=== PATIENT | male | born 1960 | race Caucasian/White ===

== ENCOUNTER 2022-08-15 23:05 | Emergency (ER) | payer MEDICAID, SELFPAY ==
[2022-08-15 23:09] VITALS: BP 208/84; PULSE 87; RESP 17; TEMP 36.8; O2SAT 100
--- NOTE | 2022-08-15 23:34 | ED.GENADULT ---
HPI - General Adult General Chief complaint: Urogenital-Male Stated complaint: Blocked catheter? suprapubic pain Time Seen by Provider: 08/15/22 23:15 History of Present Illness HPI narrative: Patient is a 62-year-old gentleman who presents the emergency department with chief complaint of Glasgow catheter not draining. The patient reports that he has had a Glasgow catheter for some time and his last one was changed about 2 weeks ago the patient reports that he has had no output out of his catheter in about 4 hours and reports that he has pressure and a fullness sensation in the suprapubic area. Related Data Allergies Allergy/AdvReac Type Severity Reaction Status Date / Time No Known Allergies Allergy Verified 08/15/22 23:06 Review of Systems Review of Systems: A 10 system review of systems was completed on the patient and is negative except for what is stated in the HPI. Nursing and ancillary documentation was reviewed. Exam Narrative: GENERAL: Well-appearing, well-nourished, and in no acute distress. HEAD: Normocephalic, atraumatic. EYES: PERRLA and EOMI. ENT: Nares clear, no rhinorrhea or epistaxis. Mucous membranes moist. NECK: Supple. CHEST: Clear to auscultation. No respiratory distress. HEART: Regular rate and rhythm. No murmur heard. Normal peripheral pulses. ABDOMEN: Soft, nontender, distention of the bladder on palpation, normal active bowel sounds. : Glasgow catheter in place there is minimal urine in the Glasgow bag EXTREMITIES: Normal range of motion. No edema. SKIN: Warm, dry, no rash. NEURO: No focal deficits. Alert and oriented x3. PSYCH: Normal mood and affect. Course Vital Signs Vital signs: Vital Signs Temperature 36.8 C 08/15/22 23:09 Pulse Rate 87 08/15/22 23:09 Respiratory Rate 17 08/15/22 23:09 Blood Pressure 208/84 H 08/15/22 23:09 Pulse Oximetry 100 08/15/22 23:09 Oxygen Delivery Room Air 08/15/22 23:09 Temperature 36.8 C 08/15/22 23:09 Pulse Rate 87 08/15/22 23:09 Respiratory Rate 17 08/15/22 23:09 Blood Pressure 208/84 H 08/15/22 23:09 Pulse Oximetry 100 07/09/23 23:09 Oxygen Delivery Room Air 08/15/22 23:09 Medical Decision Making MDM Narrative Medical decision making narrative: Differential diagnosis includes Glasgow malfunction, UTI The patient's Glasgow catheter was changed and the patient had greater than 1.5 L of urine in his bladder. Urinalysis showed evidence of UTI the patient was started on Keflex Vital Signs Vital Signs: Vital Signs Temperature 36.8 C 08/15/22 23:09 Pulse Rate 87 08/15/22 23:09 Respiratory Rate 17 08/15/22 23:09 Blood Pressure 208/84 H 08/15/22 23:09 Pulse Oximetry 100 08/15/22 23:09 Oxygen Delivery Room Air 08/15/22 23:09 Temperature 36.8 C 08/15/22 23:09 Pulse Rate 87 08/15/22 23:09 Respiratory Rate 17 08/15/22 23:09 Blood Pressure 208/84 H 08/15/22 23:09 Pulse Oximetry 100 08/15/22 23:09 Oxygen Delivery Room Air 08/15/22 23:09 Lab Data Labs: Lab Results 08/15/22 Range/Units 23:49 Urine Color Yellow (Yellow) Urine Appearance Cloudy H (Clear) Urine pH 7.5 (5.0-9.0) Ur Specific [place] 1.009 (1.001-1.035) Urine Protein Trace (Negative) mg/dL Urine Glucose (UA) Negative (Negative) mg/dL Urine Ketones Negative (Negative) mg/dL Ur Blood (Man) Trace (Negative) Urine Nitrate Positive H (Negative) Urine Bilirubin Negative (Negative) Urine Urobilinogen 2.0 H (<2.0) mg/dL Add Ur Microanalysis Reviewed Leukocyte Esterase Rfl 3+ H (Negative) JUAN/UL Urine RBC 0-2 (0-2) /hpf Urine WBC >100 H /hpf Ur Squamous Epith Cells None seen (Few) /hpf Urine Bacteria 4+ H /hpf Urine Casts 3-5 Urine Characteristics Cloudy,Sediment Discharge Plan Discharge Clinical Impression: Malfunction of Glasgow catheter, Acute urinary retention, Acute UTI
[2022-08-16 00:17] LABS: Appearance Urine Cloudy (Clear); Bacteria Urine 4+ /hpf; Bilirubin Urine Negative (Negative); Blood Urine Trace (Negative); Color Urine Yellow (Yellow); Glucose Urine UA Negative (Negative); Ketones Urine Negative (Negative); Leukocyte Esterase Ur 3+ LEU/UL (Negative); Need Manual Microscopic Reviewed; Nitrate Urine Positive (Negative); Protein Urine Trace mg/dL (Negative); RBC Urine 0-2 /hpf (0-2); Specific Grav Ur 1.009 (1.001-1.035); Squamous Epithelial Cell Urine None seen /hpf (Few); WBC Urine >100 /hpf; pH Urine 7.5 (5.0-9.0)
[2022-08-16 00:19] LABS: Add Urine Microscopic? YES
== END 2022-08-16 00:30 | disposition home or self-care (01) ==
PROVIDERS: Emergency Provider Emergency Medicine
DX: T83.098A Other mechanical complication of other urinary catheter, initial encounter (principal); N39.0 Urinary tract infection, site not specified; R33.9 Retention of urine, unspecified; Y84.6 Urinary catheterization as the cause of abnormal reaction of the patient, or of later complication, without mention of misadventure at the time of the procedure
CPT/HCPCS: 51702; 81001; 87077; 87086; 87088; 87186; 99283

== ENCOUNTER 2022-09-07 15:22 | Emergency (ER) | payer MEDICAID, SELFPAY ==
[2022-09-07 15:24] VITALS: BP 165/88; PULSE 108; RESP 20; TEMP 36.4; O2SAT 98
--- NOTE | 2022-09-07 16:58 | ED.MALEGU ---
HPI - Male Genitourinary General Chief complaint: Urogenital-Male Stated complaint: rodney blockage Time Seen by Provider: 09/07/22 15:34 History of Present Illness HPI Narrative: Patient is a 62-year-old male who presents ER with Rodney obstruction. Has lower abdominal pain. Reports he has been having a chronic indwelling Rodney for couple months. Recently diagnosed with infection started on cefdinir and then Augmentin. At the beginning the month he had been on cephalexin. No fevers or chills or sweats. He follows with urology of [place]. No additional concerns. Related Data Allergies Allergy/AdvReac Type Severity Reaction Status Date / Time No Known Allergies Allergy Verified 09/07/22 15:23 Review of Systems Review of Systems: All systems reviewed & are unremarkable except as noted in HPI and below Constitutional: Constitutional: Denies chills and Denies fever(s) Gastrointestinal: Gastrointestinal: Reports abdominal pain, Denies diarrhea, Denies nausea and Denies vomiting Genitourinary: Genitourinary: Reports oliguria, Denies dysuria and Denies testicular pain Exam Narrative: GENERAL: Well-appearing, well-nourished, and in no acute distress. HEAD: Normocephalic, atraumatic. ENT: Mucous membranes moist. CHEST: Clear to auscultation. No respiratory distress. HEART: Regular rate and rhythm. Normal peripheral pulses. ABDOMEN: Soft, suprapubic tenderness with bladder distention.. EXTREMITIES: Normal range of motion. No edema. NEURO: Alert and oriented x3. PSYCH: Normal mood and affect. Course Course Emergency Course: Rodney exchange and patient feels improved. I have shown him his urine culture from early last month. Patient has been on no antibiotics to properly treat the infection so he will be switched to Bactrim. Educated he needs to discontinue his current antibiotic therapy and follow-up with urology. He is verbalized understanding. Vital Signs Vital signs: Vital Signs Temperature 97.5 F L 09/07/22 15:24 Pulse Rate 108 H 09/07/22 15:24 Respiratory Rate 20 09/07/22 15:24 Blood Pressure 165/88 H 09/07/22 15:24 Pulse Oximetry 98 09/07/22 15:24 Oxygen Delivery Room Air 09/07/22 15:24 Temperature 97.5 F L 09/07/22 15:24 Pulse Rate 75 09/07/22 17:07 Respiratory Rate 20 09/07/22 15:24 Blood Pressure 160/91 H 09/07/22 17:07 Pulse Oximetry 95 09/07/22 17:07 Oxygen Delivery Room Air 09/07/22 15:24 Discharge Plan Discharge Clinical Impression: Acute urinary retention Patient Disposition: Home, Self-Care Condition: Stable Instructions: Antibiotic Form, Rodney Catheter Placement and Care (ED) Additional Instructions: You have an atypical urine infection that was resistant to both cephalosporins and Augmentin. You have been on the wrong antibiotic for the last month. You are being switched to Bactrim. Follow-up with your urologist. Return the ER if your Rodney is not draining. Prescriptions: New sulfamethoxazole-trimethoprim [Bactrim DS] 800-160 mg tablet 1 tablet PO Q12H Qty: 20 0RF No Action cephalexin 500 mg capsule 500 mg PO Q8H 7 Days Qty: 21 0RF Follow-up/Referrals: Harsh Maria MD [Physician] - 1 Week UNKNOWN,DOCTOR [Primary Care Provider] -
[2022-09-07 17:07] VITALS: BP 160/91; PULSE 75; O2SAT 95
== END 2022-09-07 17:08 | disposition home or self-care (01) ==
PROVIDERS: Emergency Provider Emergency Medicine
DX: R33.9 Retention of urine, unspecified (principal)
CPT/HCPCS: 51702; 99283

== ENCOUNTER 2022-09-14 16:29 | Emergency (ER) | payer MEDICAID, SELFPAY ==
[2022-09-14 16:42] VITALS: BP 180/98; PULSE 92; RESP 16; TEMP 36.8; O2SAT 100
--- NOTE | 2022-09-14 16:58 | ED.MALEGU ---
HPI - Male Genitourinary General Chief complaint: Urogenital-Male Stated complaint: catheter change Time Seen by Provider: 09/14/22 16:58 Source: patient Mode of arrival: ambulatory Limitations: no limitations History of Present Illness HPI Narrative: 62 years old white male, had Glasgow catheter over the last 2 months for possible prostatic enlargement, scheduled to see his urologist next week. Patient currently on Cipro. 4 hours prior to arrival to the emergency room patient noticed that the Glasgow catheter is not draining urine. With lower abdominal pain. Glasgow catheter changed, yielding 1200 cc urine with unremarkable relieve Related Data Allergies Allergy/AdvReac Type Severity Reaction Status Date / Time No Known Allergies Allergy Verified 09/07/22 15:23 Review of Systems Review of Systems: All systems reviewed & are unremarkable except as noted in HPI and below Exam Narrative: General appearance: Well-developed, uncomfortable Skin: Normal color Head: Normocephalic, nontraumatic Eyes: Clear conjunctiva ENT: Oropharynx normal, ears normal, nose normal Neck: Supple, nontender Chest and respiratory: Airway patent, no respiratory distress, no accessory muscle use Heart: Regular rate/rhythm Abdomen: Diffuse lower abdominal tenderness with distention Vascular: Normal peripheral pulses, normal capillary refill. 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 tested, no gross motor deficit Course Reevaluation(s) Reevaluation #1: Remarkable improvement after 1200 cc of urine output Date: 09/14/22 Time: 17:06 Vital Signs Vital signs: Vital Signs Temperature 36.8 C 09/14/22 16:42 Pulse Rate 92 09/14/22 16:42 Respiratory Rate 16 09/14/22 16:42 Blood Pressure 180/98 H 09/14/22 16:42 Pulse Oximetry 100 09/14/22 16:42 Oxygen Delivery Room Air 09/14/22 16:42 Temperature 36.8 C 09/14/22 16:42 Pulse Rate 92 09/14/22 16:42 Respiratory Rate 16 09/14/22 16:42 Blood Pressure 180/98 H 09/14/22 16:42 Pulse Oximetry 100 09/14/22 16:42 Oxygen Delivery Room Air 09/14/22 16:42 MDM - Male Genitourinary MDM Narrative Medical decision making narrative: Patient presents with Glasgow catheter malfunction, 4 hours prior to arrival not draining urine. Patient scheduled to see his urologist next week, currently on Cipro for similar event last week. Glasgow catheter changed, 1200 cc of urine output, remarkable improvement. Patient will be discharged to follow-up with his urologist next week. Differential Diagnosis Differential diagnosis: Likely acute retention of urine and other (Glasgow catheter malfunction) Lab Data Labs: Urine Characteristics Clear Critical Care Time Critical Care Time Total Critical Care Time: 10 Discharge Plan Discharge Clinical Impression: Acute retention of urine Patient Disposition: Home, Self-Care Condition: Improved Instructions: Urinary Retention in Men (ED), Glasgow Catheter Placement and Care (ED) Additional Instructions: Return if symptoms are worsening , call your urologist for appointment, take Tylenol as as needed for aches and pain, continue home medications. Prescriptions: No Action cephalexin 500 mg capsule 500 mg PO Q8H 7 Days Qty: 21 0RF ciprofloxacin HCl 250 mg tablet 250 mg PO Q12H 5 Days Qty: 10 0RF Follow-up/Referrals: UNKNOWN,DOCTOR [Primary Care Provider] -
[2022-09-14 17:33] LABS: Appearance Urine Clear (Clear); Bacteria Urine None Seen /hpf; Bilirubin Urine Negative (Negative); Blood Urine Negative (Negative); Color Urine Yellow (Yellow); Glucose Urine UA Negative (Negative); Ketones Urine Negative (Negative); Leukocyte Esterase Ur 1+ LEU/UL (Negative); Nitrate Urine Negative (Negative); Non Pathogenic Casts 0-2; Protein Urine Negative (Negative); RBC Urine 0-2 /hpf (0-2); Specific Grav Ur 1.007 (1.001-1.035); Squamous Epithelial Cell Urine None seen /hpf (Few); Urobilinogen Urine 0.2 mg/dL (<2.0)
[2022-09-14 17:46] LABS: Add Urine Microscopic? YES
== END 2022-09-14 17:40 | disposition home or self-care (01) ==
LOC: ANHED 17:13
PROVIDERS: Emergency Provider Emergency Medicine; PCP Nurse Practitioner Family
DX: R33.9 Retention of urine, unspecified (principal)
CPT/HCPCS: 51702; 81001; 87086; 99283

== ENCOUNTER 2022-09-20 16:28 | Emergency (ER) | payer MEDICAID, SELFPAY ==
[2022-09-20 16:30] VITALS: BP 191/103; PULSE 107; RESP 18; TEMP 36.4; O2SAT 99
--- NOTE | 2022-09-20 19:12 | PC.NURSE ---
Patient report given to ANGELITA Sharp. All questions answered and care of patient transferred.
[2022-09-20 19:24] LABS: Glucose Point of Care 133 mg/dl (65-105)
[2022-09-20 19:27] LABS: Basophils Absolute Auto 0.1 K/mm3 (0.0-0.1); Basophils Percent Auto 0.6 % (0.2-1.2); Eosinophils Absolute Auto 0.1 K/mm3 (0-0.3); Eosinophils Percent Auto 0.9 % (0-4.4); Hematocrit 47.1 % (42.0-52.0); Hemoglobin 16.1 g/dL (14.0-18.0); Immature Granulocyte Absolute 0.03 K/mm3 (0.00-0.031); Immature Granulocyte Percent A 0.3 % (0-0.5); Lymphocytes Absolute Auto 1.81 K/mm3 (0.9-3.2); Lymphocytes Percent Auto 16.7 % (18.3-44.2); Mean Corpuscular HGB Conc 34.2 g/dl (32-36); Mean Corpuscular Hemoglobin 33.7 pg (26-34); Mean Corpuscular Volume 98.5 fl (80-100); Mean Platelet Volume 8.3 fl (7.4-10.4); Monocytes Absolute Auto 0.9 K/mm3 (0.1-0.6); Monocytes Percent Auto 8.3 % (2.6-8.5); Neutrophils Absolute Auto 7.9 K/mm3 (1.3-6.7); Neutrophils Percent Auto 73.2 % (45.5-73.1); Platelet Count Result 333 k/mm3 (150-375); Red Blood Count 4.78 M/mm3 (4.6-6.20); Red Cell Distribution Width 12.3 % (11.5-14.5); White Blood Count 10.8 K/mm3 (4.5-10.0)
[2022-09-20 19:39] LABS: Alanine Aminotransferase 28 U/L (6-50); Albumin Level 4.4 g/dL (3.5-5.1); Alkaline Phosphatase 104 U/L (38-126); Anion Gap 4 mmol/L (8-16); Aspartate Amino Transferase 43 U/L (17-59); Bilirubin,Total 0.6 mg/dL (0.2-1.3); Blood Urea Nitrogen 6 mg/dL (9-20); Calcium 9.4 mg/dL (8.4-10.2); Carbon Dioxide 31 mmol/L (22-30); Chloride 96 mmol/L (98-107); Estimated CRCL calculation 76 ml/min; Estimated Glomerular Filt Rate > 60; Glucose 134 mg/dL (65-110); Potassium 4.9 mmol/L (3.4-5.0); Sodium 131 mmol/L (137-145)
[2022-09-20 20:24] LABS: Appearance Urine Clear (Clear); Bacteria Urine None Seen /hpf; Bilirubin Urine Negative (Negative); Blood Urine 1+ (Negative); Color Urine Yellow (Yellow); Glucose Urine UA Negative (Negative); Ketones Urine Negative (Negative); Leukocyte Esterase Ur 1+ LEU/UL (Negative); Nitrate Urine Negative (Negative); Non Pathogenic Casts 0-2; Protein Urine Negative (Negative); Specific Grav Ur 1.007 (1.001-1.035); Squamous Epithelial Cell Urine None seen /hpf (Few); pH Urine 7.5 (5.0-9.0)
--- NOTE | 2022-09-20 20:27 | PC.NURSE ---
Patient education given on how to irrigate his rodney. Return demonstration provided.
[2022-09-20 20:29] LABS: Add Urine Microscopic? YES
--- NOTE | 2022-09-20 21:15 | ED.GENADULT ---
HPI - General Adult General Chief complaint: Urogenital-Male Stated complaint: catheter change Time Seen by Provider: 09/20/22 18:59 History of Present Illness HPI narrative: this is a 62-year-old male presenting ED with chief complaint of Glasgow malfunction. Patient has indwelling Glasgow for BPH. He has had to have it replaced multiple times were last 10 days has acute getting clogged. Patient has had some lower abdominal fullness. patient has appointment on Tuesday with urology. He denies fever chills nausea vomiting or diarrhea or flank pain. Related Data Allergies Allergy/AdvReac Type Severity Reaction Status Date / Time No Known Allergies Allergy Verified 09/20/22 18:25 Exam Narrative: APPEARANCE: No apparent distress. Head: atraumatic. EYES: EOMI, NOSE: Atraumatic NECK: Trachea midline RESPIRATORY: No increased rate of breathing, clear to auscultation CARDIOVASCULAR: RRR, ABDOMINAL: suprapubic mass that is tender, rest the abdomen is soft nontender MUSCULOSKELETAl: No obvious deformities NEURO: Alert. Moving 4/4 extremities SKIN:: Warm, dry. Normal color PSYCHIATRIC: Normal affect Course Vital Signs Vital signs: Vital Signs Temperature 97.5 F L 09/20/22 16:30 Pulse Rate 107 H 09/20/22 16:30 Respiratory Rate 18 09/20/22 16:30 Blood Pressure 191/103 H 09/20/22 16:30 Pulse Oximetry 99 09/20/22 16:30 Oxygen Delivery Room Air 09/20/22 16:30 Temperature 97.5 F L 09/20/22 16:30 Pulse Rate 107 H 09/20/22 16:30 Respiratory Rate 18 09/20/22 16:30 Blood Pressure 191/103 H 09/20/22 16:30 Pulse Oximetry 99 09/20/22 16:30 Oxygen Delivery Room Air 09/20/22 16:30 Medical Decision Making [facility] Narrative Medical decision making narrative: -Presentation: 62-year-old male presenting with chronic indwelling Glasgow the cues clogging. The Glasgow will be replaced here in the emergency department. The patient has been instructed on how to flush his catheter. Patient can follow-up with his urologist on Tuesday and return if he develops urinary retention. 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 Patient does not have white count or fever. We will await culture results. -Shared decision making / Disposition: Discharged with urology follow-up Vital Signs Vital Signs: Vital Signs Temperature 97.5 F L 09/20/22 16:30 Pulse Rate 107 H 09/20/22 16:30 Respiratory Rate 18 09/20/22 16:30 Blood Pressure 191/103 H 09/20/22 16:30 Pulse Oximetry 99 09/20/22 16:30 Oxygen Delivery Room Air 09/20/22 16:30 Temperature 97.5 F L 09/20/22 16:30 Pulse Rate 107 H 09/20/22 16:30 Respiratory Rate 18 09/20/22 16:30 Blood Pressure 191/103 H 09/20/22 16:30 Pulse Oximetry 99 09/20/22 16:30 Oxygen Delivery Room Air 09/20/22 16:30 Lab Data 09/20/22 19:20 09/20/22 19:20 Labs: Lab Results 09/20/22 09/20/22 09/20/22 Range/Units 19:20 19:22 19:50 WBC 10.8 H (4.5-10.0) K/mm3 RBC 4.78 (4.6-6.20) M/mm3 Hgb 16.1 (14.0-18.0) g/dL Hct 47.1 (42.0-52.0) % MCV 98.5 (80-100) fl MCH 33.7 (26-34) pg MCHC 34.2 (32-36) g/dl RDW 12.3 (11.5-14.5) % Plt Count 333 (150-375) k/mm3 MPV 8.3 (7.4-10.4) fl Immature Gran % (Auto) 0.3 (0-0.5) % Neut % (Auto) 73.2 H (45.5-73.1) % Lymph % (Auto) 16.7 L (18.3-44.2) % [place] % (Auto) 8.3 (2.6-8.5) % Eos % (Auto) 0.9 (0-4.4) % Baso % (Auto) 0.6 (0.2-1.2) % Lymph # (Auto) 1.81 (0.9-3.2) K/mm3 [place] # (Auto) 0.9 H (0.1-0.6) K/mm3
[2022-09-20 21:23] VITALS: BP 119/81; PULSE 98; RESP 16; O2SAT 100
== END 2022-09-20 21:25 | disposition home or self-care (01) ==
PROVIDERS: Emergency Provider Emergency Medicine; PCP Nurse Practitioner Family
DX: T83.091A Other mechanical complication of indwelling urethral catheter, initial encounter (principal); N40.0 Benign prostatic hyperplasia without lower urinary tract symptoms; Y84.6 Urinary catheterization as the cause of abnormal reaction of the patient, or of later complication, without mention of misadventure at the time of the procedure
CPT/HCPCS: 36415; 51702; 80053; 81001; 82948; 85025; 87086; 99283

== ENCOUNTER 2023-03-21 06:16 | Emergency (ER) | payer BC, SELFPAY ==
--- NOTE | ~2023-03-21 | XR_ITS ---
Clinical Indication: Shortness of breath PA and lateral views of the chest: Comparison: None Findings: There is focal haziness left lung base. Right lung clear. Cardiomediastinal silhouette is within normal limits. Bones and soft tissues are unremarkable. Impression: Focal haziness left lung base. Correlate for atelectasis versus pneumonia. Possible COPD. Reviewed, dictated and finalized at location . [facility]ER Impression: Focal haziness left lung base. Correlate for atelectasis versus pneumonia. Possible COPD.
--- NOTE | ~2023-03-21 | CT_ITS ---
EXAMINATION: CT soft tissue neck w con DATE: 03/21/2023 07:54 INDICATION: Left-sided oropharyngeal mass. TECHNIQUE: Computed tomography (CT) of the neck was performed with 75 mL Omnipaque-350 intravenous co ntrast. Automated exposure control and iterative reconstruction technique were employed. The dose-tereza gth product was 267.24 mGy-cm. COMPARISON: None FINDINGS: There is moderate emphysema. There is mild scarring at the lung apices. There is a 7.2 x 4. 2 cm mass involving the floor of mouth, base of tongue, and left pharyngeal wall. There is invasion o f left body of the mandible, which demonstrates erosions. The mass abuts or invades the left submandi bular gland and left parotid gland. There are no pathologically enlarged lymph nodes. There is plaque in the proximal internal carotid arteries with less than 50% stenosis relative to normal distal nile ry lumen diameters. There is severe cervical spondylosis. There is mucosal thickening in the paranasa l sinuses. There is thickening sclerosis of the downs of left maxillary sinus, consistent with chroni c sinusitis. IMPRESSION: 1. Large mass involving the left pharynx and floor of mouth, consistent with squamous cell carcinoma. Reviewed, dictated and finalized at location A. A DRIVER IMPRESSION: 1. Large mass involving the left pharynx and floor of mouth, consistent with sq uamous cell carcinoma.
[2023-03-21 06:17] VITALS: BP 106/50; PULSE 62; RESP 18; TEMP 36.4; O2SAT 97
--- NOTE | 2023-03-21 06:50 | ECG_ITS ---
Measurements Intervals [place] Rate: 61 P: 82 RI: 181 QRS: -25 QRSD: 133 T: 129 QT: 438 QTc: 442 Interpretive Statements SINUS RHYTHM ANTEROSEPTAL ST-ELEVATION, CONSIDER INJURY PATTERN INTRAVENTRICULAR CONDUCTION DELAY LEFT ANTERIOR FASCICULAR BLOCK ABNORMAL ECG NO PREVIOUS ECG AVAILABLE FOR COMPARISON Electronically Signed On 03-21-2023 8:44:35 [employer] P[employer] WORK[employer] by Dilshad Sher M.D.
[2023-03-21 06:57] VITALS: BP 174/73; PULSE 64; RESP 14; O2SAT 100
[2023-03-21 07:12] LABS: Basophils Percent Auto 0.7 % (0.2-1.2); Eosinophils Absolute Auto 0.4 K/mm3 (0-0.3); Eosinophils Percent Auto 7.3 % (0-4.4); Hematocrit 30.5 % (42.0-52.0); Hemoglobin 9.7 g/dL (14.0-18.0); Immature Granulocyte Absolute 0.02 K/mm3 (0.00-0.031); Immature Granulocyte Percent A 0.4 % (0-0.5); Lymphocytes Absolute Auto 1.42 K/mm3 (0.9-3.2); Lymphocytes Percent Auto 25.2 % (18.3-44.2); Mean Corpuscular HGB Conc 31.8 g/dl (32-36); Mean Corpuscular Hemoglobin 31.5 pg (26-34); Mean Platelet Volume 8.4 fl (7.4-10.4); Monocytes Absolute Auto 0.7 K/mm3 (0.1-0.6); Monocytes Percent Auto 11.9 % (2.6-8.5); Neutrophils Absolute Auto 3.1 K/mm3 (1.3-6.7); Neutrophils Percent Auto 54.5 % (45.5-73.1); Platelet Count Result 379 k/mm3 (150-375); Red Blood Count 3.08 M/mm3 (4.6-6.20); Red Cell Distribution Width 12.7 % (11.5-14.5); White Blood Count 5.6 K/mm3 (4.5-10.0)
[2023-03-21 07:21] VITALS: BP 141/71; PULSE 64; RESP 16; O2SAT 100
[2023-03-21 07:24] LABS: Alanine Aminotransferase 21 U/L (6-50); Albumin Level 3.5 g/dL (3.5-5.1); Alkaline Phosphatase 74 U/L (38-126); Anion Gap 5 mmol/L (8-16); Aspartate Amino Transferase 41 U/L (17-59); Bilirubin,Total 0.4 mg/dL (0.2-1.3); Blood Urea Nitrogen 25 mg/dL (9-20); Calcium 8.7 mg/dL (8.4-10.2); Carbon Dioxide 29 mmol/L (22-30); Chloride 93 mmol/L (98-107); Estimated CRCL calculation 84 ml/min; Estimated Glomerular Filt Rate > 60; Glucose 107 mg/dL (65-110); Potassium 4.4 mmol/L (3.4-5.0); Sodium 127 mmol/L (137-145)
[2023-03-21 08:14] VITALS: O2SAT 100
[2023-03-21 08:17] VITALS: BP 165/76; PULSE 67; RESP 16; O2SAT 100
--- NOTE | 2023-03-21 09:09 | ED.GENADULT ---
HPI - General Adult General Chief complaint: Shortness of Breath/Dyspnea Stated complaint: coughing up blood Time Seen by Provider: 03/21/23 07:00 History of Present Illness HPI narrative: Patient is a 62-year-old male who presents ER with bloody spit/ sputum as well as difficulty swelling. Ongoing over last couple of months. He has had to start puree in his food so he can swallow. He reports a 20 lb weight loss. He was seen by his PCP who referred him to an ENT. When he called the ENT office he told them that he thought he had issues with the esophagus knee told him that he should call a GI doctor as they do not go down and scope the esophagus. The bleeding waxes and wanes in intensity. He cannot describe what causes it to be worse. He is not having any shortness of breath or productive cough this time. No chest pain or chest pressure. Patient does have history of tobacco use. Related Data Allergies Allergy/AdvReac Type Severity Reaction Status Date / Time No Known Allergies Allergy Verified 09/20/22 18:25 Review of Systems Review of Systems: All systems reviewed & are unremarkable except as noted in HPI and below Constitutional: Constitutional: Reports no additional constitutional complaints ENT: Reports dysphagia and Denies sore throat Comments: Left facial swelling Cardiovascular: Cardiovascular: Reports no additional cardiovascular complaints Respiratory: Respiratory: Reports no additional respiratory complaints Gastrointestinal: Gastrointestinal: Reports no additional gastrointestinal complaints [facility] Past Medical History Medical History (Updated 03/21/23 @ 10:39 by Avery Quezada MD) Hypertension Surgical History Surgical History (Updated 03/21/23 @ 09:21 by Avery Quezada MD) H/O knee surgery History of appendectomy Social History Social History (Updated 03/21/23 @ 09:21 by Avery Quezada MD) Smoking status: Current every day smoker Exam Narrative: GENERAL: Chronically ill-appearing, frail, and in no acute distress. HEAD: Normocephalic, atraumatic. ENT: Mucous membranes moist. unable to stick the tongue out straight and it appears off to left side. Left posterior tongue and pharyngeal wall with erosive mass present. Mild swelling of the parotid and submandibular glands on left. NECK: Supple. CHEST: Clear to auscultation. No respiratory distress. HEART: Regular rate and rhythm. Normal peripheral pulses. ABDOMEN: Soft, nontender, nondistended. EXTREMITIES: Normal range of motion. No edema. SKIN: Warm, dry, no rash. NEURO: Alert and oriented x3. PSYCH: Normal mood and affect. Course Course Emergency Course: discussed case with ENT on-call. [facility] and insure that patient has not lost to follow-up. Patient is not in extremis and feels comfortable with this plan. Vital Signs Vital signs: Vital Signs Temperature 97.6 F 03/21/23 06:17 Pulse Rate 62 03/21/23 06:17 Respiratory Rate 18 03/21/23 06:17 Blood Pressure 106/50 L 03/21/23 06:17 Pulse Oximetry 97 03/21/23 06:17 Oxygen Delivery Room Air 03/21/23 06:17 Temperature 98.1 F 03/21/23 10:48 Pulse Rate 68 03/21/23 10:48 Respiratory Rate 18 03/21/23 10:48 Blood Pressure 152/68 H 03/21/23 10:48 Pulse Oximetry 100 03/21/23 10:48 Oxygen Delivery Room Air 03/21/23 08:14 Medical Decision Making Vital Signs Vital Signs: Vital Signs Temperature 97.6 F 03/21/23 06:17 Pulse Rate 62 03/21/23 06:17 Respiratory Rate 18 03/21/23 06:17 Blood Pressure 106/50 L 03/21/23 06:17 Pulse Oximetry 97 03/21/23 06:17 Oxygen Delivery Room Air 03/21/23 06:17 Temperature 98.1 F 03/21/23 10:48 Pulse Rate 68 03/21/23 10:48 Respiratory Rate 18 03/21/23 10:48 Blood Pressure 152/68 H 03/21/23 10:48 Pulse Oximetry 100 03/21/23 10:48 Oxygen Delivery Room Air 03/21/23 08:14 Lab Data 03/21/23
[2023-03-21 10:48] VITALS: BP 152/68; PULSE 68; RESP 18; TEMP 36.7; O2SAT 100
== END 2023-03-21 10:49 | disposition home or self-care (01) ==
PROVIDERS: Emergency Medicine; Emergency Provider Emergency Medicine; PCP Family Medicine
DX: C10.9 Malignant neoplasm of oropharynx, unspecified (principal); I10 Essential (primary) hypertension; F17.210 Nicotine dependence, cigarettes, uncomplicated; I45.9 Conduction disorder, unspecified; I44.4 Left anterior fascicular block; R94.31 Abnormal electrocardiogram [ECG] [EKG]; R91.8 Other nonspecific abnormal finding of lung field
CPT/HCPCS: 36415; 70491; 71046; 80053; 85025; 93005; 99284; Q9967

== ENCOUNTER 2023-03-23 09:57 | Emergency (ER) | payer BC, SELFPAY ==
[2023-03-23] VITALS (11 sets, daily range): BP systolic 89–134; BP diastolic 45–70; PULSE 56–85; RESP 14–18; TEMP 36.4–36.8; O2SAT 96–100
--- NOTE | ~2023-03-23 | XR_ITS ---
XR chest 2V DATE: 03/23/2023 10:41 INDICATION: Syncopal episode. Hemoptysis. TECHNIQUE: AP and lateral views COMPARISON: March 21, 2013 AP and lateral chest FINDINGS: Minimal infiltrate or atelectasis at the left lung base appears stable or mildly improved s amaury March 21, 2013. The lungs otherwise appear clear of infiltrate or consolidation. Bilateral hyperinflation, suggesting chronic obstructive pulmonary disease Minimal blunting of the left costophrenic angle may indicate slight left pleural effusion. No right p leural effusion is evident. No pulmonary vascular congestion. No hilar or mediastinal enlargement. No pneumothorax. IMPRESSION: Minimal infiltrate or atelectasis at the left lung base, stable or mildly improved since March 21, 2013 Possible minimal left pleural effusion Bilateral hyperinflation, suggesting obstructive airways disease Reviewed, dictated and finalized at location B. SPLANT NURSE PRACTITIONER
--- NOTE | ~2023-03-23 | CT_ITS ---
EXAMINATION: CT soft tissue neck w con DATE: 03/23/2023 10:58 INDICATION: Headache. Oral mass. Hemoptysis. TECHNIQUE: Computed tomography (CT) of the neck was performed with 75 mL Omnipaque-350 intravenous co ntrast. Automated exposure control and iterative reconstruction technique were employed. The dose-tereza gth product was 269.14 mGy-cm. COMPARISON: CT neck 03/21/2023 FINDINGS: There is moderate emphysema. There is mild scarring at the lung apices. There is a 7.2 x 4. 2 cm mass involving the floor of mouth, base of tongue, and left pharyngeal wall. There is invasion o f left body of the mandible, which demonstrates erosions. The mass abuts or invades the left submandi bular gland and left parotid gland. There are no pathologically enlarged lymph nodes. There is plaque in the proximal internal carotid arteries with less than 50% stenosis relative to normal distal nile ry lumen diameters. There is severe cervical spondylosis. There is mucosal thickening in the paranasa l sinuses. There is thickening sclerosis of the downs of left maxillary sinus, consistent with chroni c sinusitis. IMPRESSION: 1. Stable large mass involving the left pharynx, floor of mouth, and mandible, consistent with squamo us cell carcinoma. Reviewed, dictated and finalized at location A. ANICAL TECHNICAL SERVICE SPECIALIST IMPRESSION: 1. Stable large mass involving the left pharynx, floor of mouth, and mandible, consistent with squamous cell carcinoma.
--- NOTE | 2023-03-23 10:09 | ECG_ITS ---
Measurements Intervals [place] Rate: 78 P: 81 HI: 150 QRS: 24 QRSD: 127 T: 130 QT: 385 QTc: 441 Interpretive Statements SINUS RHYTHM LATERAL MYOCARDIAL INFARCTION , OF INDETERMINATE AGE [40+ ms Q WAVE AND/OR ST/T ABNORMALITY IN I/aVL/V5/V6] ABNORMAL ECG COMPARED TO ECG 03/21/2023 06:53:46 MYOCARDIAL INFARCT FINDING NOW PRESENT Electronically Signed On 03-23-2023 11:54:19 [employer]AD SALES CONSULTANT by Dilshad Sher M.D.
[2023-03-23] MEDS: SODIUM CHLORIDE 0.9% IV 1,000 ML 999 ML IV CONT (10:18)
[2023-03-23 10:28] LABS: Basophils Percent Auto 0.4 % (0.2-1.2); Eosinophils Absolute Auto 0.2 K/mm3 (0-0.3); Eosinophils Percent Auto 2.1 % (0-4.4); Hematocrit 21.9 % (42.0-52.0); Immature Granulocyte Absolute 0.05 K/mm3 (0.00-0.031); Immature Granulocyte Percent A 0.6 % (0-0.5); Lymphocytes Absolute Auto 1.45 K/mm3 (0.9-3.2); Lymphocytes Percent Auto 18.8 % (18.3-44.2); Mean Corpuscular Hemoglobin 31.8 pg (26-34); Mean Corpuscular Volume 99.5 fl (80-100); Mean Platelet Volume 8.7 fl (7.4-10.4); Monocytes Absolute Auto 0.9 K/mm3 (0.1-0.6); Monocytes Percent Auto 11.4 % (2.6-8.5); Neutrophils Absolute Auto 5.2 K/mm3 (1.3-6.7); Neutrophils Percent Auto 66.7 % (45.5-73.1); Platelet Count Result 320 k/mm3 (150-375); Red Cell Distribution Width 12.7 % (11.5-14.5); White Blood Count 7.7 K/mm3 (4.5-10.0)
--- NOTE | 2023-03-23 10:35 | PC.NURSE ---
Pt unable to provide urine sample this time, requesting more time to attempt clean catch ua. Fluids infusing, given urinal, given call light.
[2023-03-23 10:40] LABS: Alanine Aminotransferase 20 U/L (6-50); Albumin Level 3.4 g/dL (3.5-5.1); Alkaline Phosphatase 72 U/L (38-126); Anion Gap 7 mmol/L (8-16); Aspartate Amino Transferase 41 U/L (17-59); Bilirubin,Total 0.4 mg/dL (0.2-1.3); Blood Urea Nitrogen 30 mg/dL (9-20); Calcium 8.4 mg/dL (8.4-10.2); Carbon Dioxide 26 mmol/L (22-30); Chloride 92 mmol/L (98-107); Estimated CRCL calculation 76 ml/min; Estimated Glomerular Filt Rate > 60; Glucose 143 mg/dL (65-110); Potassium 4.7 mmol/L (3.4-5.0); Sodium 125 mmol/L (137-145)
--- NOTE | 2023-03-23 11:06 | PC.NURSE ---
assumed care of pt. pt resting on stretcher, at bedside. pt in no visible distress. pt informed we are waiting on urine sample, has urinal at bedside. no concerns at this time.
--- NOTE | 2023-03-23 11:16 | ED.GENADULT ---
HPI - General Adult General Chief complaint: Syncope Stated complaint: hemoptysis Time Seen by Provider: 03/23/23 10:09 History of Present Illness HPI narrative: Patient is a 63-year-old male who presents ER with potential oral hemorrhage and syncope. Patient was diagnosed with a new or pharyngeal cancer 2 days ago. He has been working on getting follow-up at [facility]. Today he suddenly had acute bright red blood in large quantity, and his mouth. He cannot tell me how much came out. He then got lightheaded and lost consciousness and collapsed to the ground. He was unconscious for 30 seconds before waking back up. Patient initially hypotensive. He has been fluid responsive. He is not on any blood thinners. He is tolerating oral secretions at this time. There is no stridor. Related Data Allergies Allergy/AdvReac Type Severity Reaction Status Date / Time bee venom protein (honey bee) Allergy Anaphylaxis Verified 03/23/23 10:20 [bees] Review of Systems Review of Systems: All systems reviewed & are unremarkable except as noted in HPI and below Constitutional: Constitutional: Reports no additional constitutional complaints ENT: Reports dysphagia and Denies nasal congestion Comments: Bleeding from mouth Cardiovascular: Cardiovascular: Reports no additional cardiovascular complaints Respiratory: Respiratory: Reports no additional respiratory complaints Neurologic: Reports syncope, Denies headache(s), Denies focal weakness and Denies numbness PMFSH Past Medical History Medical History (Updated 03/23/23 @ 11:18 by Avery Quezada MD) Hypertension Surgical History Surgical History (Updated 03/21/23 @ 09:21 by Avery Quezada MD) H/O knee surgery History of appendectomy Social History Social History (Updated 03/21/23 @ 09:21 by Avery Quezada MD) Smoking status: Current every day smoker Exam Narrative: GENERAL: Chronically ill-appearing, underweight, and in no acute distress. HEAD: Normocephalic, atraumatic. EYES: PERRL and EOMI. ENT: Mucous membranes moist. old blood within oropharynx. Large left-sided ulcerated mass posterior aspect of the tongue. Tongue deviates to the left with sticking out. NECK: Supple. CHEST: Clear to auscultation. No respiratory distress. HEART: Regular rate and rhythm. Normal peripheral pulses. ABDOMEN: Soft, nontender, nondistended. EXTREMITIES: Normal range of motion. No edema. SKIN: Warm, dry, no rash. NEURO: Alert and oriented x3. PSYCH: Normal mood and affect. Course Course Emergency Course: Patient resting comfortably. patient has dropped his hemoglobin from 9.5-7.0. We will transfuse 1 unit of blood. Blood pressure responsive to fluid and currently 123/59. Tolerating oral secretions. I have discussed the case with ENT Dr. Schulte at [facility] and also ER doctor Dr. Licea. Patient has been accepted for transfer. May need embolization with neuro/IR, will also need a CTA there. patient family educated about diagnosis and treatment plan. We are contacting [facility] ambulance for transfer. Vital Signs Vital signs: Vital Signs Temperature 97.5 F L 03/23/23 10:00 Pulse Rate 82 03/23/23 10:00 Respiratory Rate 18 03/23/23 10:00 Blood Pressure 98/54 L 03/23/23 10:00 Pulse Oximetry 100 03/23/23 10:00 Oxygen Delivery Room Air 03/23/23 10:00 Temperature 98.2 F 03/23/23 12:54 Pulse Rate 62 03/23/23 12:54 Respiratory Rate 18 03/23/23 12:54 Blood Pressure 96/46 L 03/23/23 12:54 Pulse Oximetry 97 03/23/23 12:54 Oxygen Delivery Room Air 03/23/23 10:00 Medical Decision Making Vital Signs Vital Signs: Vital Signs Temperature 97.5 F L 03/23/23 10:00 Pulse Rate 82 03/23/23 10:00 Respiratory Rate 18 03/23/23 10:00 Blood Pressure 98/54 L 03/23/23 10:00 Pulse Oximetry 100 03/23/23 10:00 Oxygen Delivery Room Air 03/23/23 10:00 Temperature 98.2 F 03/23/23 12:54 Pulse Rate 62
[2023-03-23] MEDS: MORPHINE SULFATE (*CRX) 2 MG/ML INJ IV PUSH (11:52)
[2023-03-23 13:16] LABS: Appearance Urine Clear (Clear); Bilirubin Urine Negative (Negative); Blood Urine Negative (Negative); Color Urine Yellow (Yellow); Glucose Urine UA Negative (Negative); Ketones Urine Negative (Negative); Leukocyte Esterase Ur Negative LEU/UL (Negative); Nitrate Urine Negative (Negative); Protein Urine Negative (Negative); Specific Grav Ur 1.014 (1.001-1.035); Urobilinogen Urine 0.2 mg/dL (<2.0); pH Urine 6.5 (5.0-9.0)
[2023-03-23 13:23] LABS: Add Urine Microscopic? NO
[2023-03-23 13:26] LABS: Reflex Lactic Acid Yes or No Add Lactic
[2023-03-23] MEDS: SODIUM CHLORIDE 0.9% IV 250 ML 30 ML IV CONT (13:35)
[2023-03-23] MEDS: TUBING, BLOOD SET 1 EACH XX (13:35)
== END 2023-03-23 14:08 | disposition short-term general hospital (02) ==
PROVIDERS: Emergency Provider Emergency Medicine; PCP Family Medicine
DX: R55 Syncope and collapse (principal); C10.9 Malignant neoplasm of oropharynx, unspecified; D64.9 Anemia, unspecified; I10 Essential (primary) hypertension; F17.200 Nicotine dependence, unspecified, uncomplicated; R94.31 Abnormal electrocardiogram [ECG] [EKG]
CPT/HCPCS: 36415; 36430; 70491; 71046; 80053; 81003; 83605; 85025; 86850; 86900; 86901; 86923; 93005; 96361; 96374; 99285; J2270; J7030; J7050; P9016; Q9967

== ENCOUNTER 2024-02-08 14:21 | Emergency (ER) | payer BC, SELFPAY ==
[2024-02-08 14:25] VITALS: BP 161/70; RESP 16; TEMP 36.6; O2SAT 100
--- NOTE | 2024-02-08 14:57 | PC.NURSE ---
patient states he is feeling better and is going home. patient and family advised to come back if symptoms persist or get worse
--- OUTSIDE RECORDS SUMMARY | 2024-02-15 11:27 | XMS_ITS | Encounter Summary ---
Author Organization [employer] Care Team Providers Care Carver Hand Name Role Phone Jorge Espinosa Primary Care Provider [phone] Antwon Mirza MD Unavailable [phone] Roland Patel MD Unavailable [phone] Encounter Details Date Type Department Care Team (Latest Contact Info) Description 08/16/2023 Travel Social History Tobacco Use Types Packs/Day Years Used Date Smoking Tobacco: Every Day Cigarettes 0.5 50.9 Started: 1973 Smokeless Tobacco: Never Alcohol Use Standard Drinks/Week Comments Yes 0 (1 standard drink = 0.6 oz pure alcohol) Occasionally, never a regular drinker Sex and Gender Information Value Date Recorded Sex Assigned at Not on file Legal Sex Male 3:34 PM COUPLES THERAPIST Gender Identity Not on file Sexual Orientation Not on file documented as of this encounter Plan of Treatment Not on file documented as of this encounter Visit Diagnoses Not on filedocumented in this encounter Care Teams Carver Hand Relationship Specialty Start Date End Date Jorge Espinosa PA [address] [place] [address] PCP - General Physician Precision Crop Manager 04/11/23 Antwon Mirza MD [address] [place] [address] Consulting Physician Medical Oncology 05/04/23 Roland Patel MD [address] [place] [address] Consulting Physician Radiation Oncology 05/04/23 documented as of this encounter
--- OUTSIDE RECORDS SUMMARY | 2024-02-15 11:27 | XMS_ITS | Encounter Summary ---
Author Organization [facility] Address [address] [facility] [place] [address] Phone Care Team Providers Care Care Program Director Name Role Phone Jorge Espinosa Primary Care Provider [phone] Antwon Mirza MD Unavailable [phone] Roland Patel MD Unavailable [phone] Reason for Visit * Auth/Cert (Routine) Specialty Diagnoses / Procedures Referred By Contac t Referred To Contact Referral ID Status Reason Start Date Expiration Date Visits Re quested Visits Authorized [id number] 13 Encounter Details Date Type Department Care Team (Late st Contact Info) Description 08/04/2023 11:30 AM CDT [facility] [address] [place] [address] Rosalba Neff OT OT - DISCIPLINE DISCHARGE Social History Tobacco Use Types Packs/Day Years Used Date Smoking Tobacco: Every Day Cigarettes 0.5 50.9 Started: 1973 Smokeless Tobacco: Never Alcohol Use Standard Drinks/Week Comments Yes 0 (1 standard drink = 0.6 oz pure alcohol) Occasionally, never a regular drinker Sex and Gender Information Value Date Recorded Sex Assigned at Not on file Legal Sex 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 OPERATOR Gender Identity Not on file Sexual Orientation Not on file documented as of this encounter Last Filed Vital Signs Vital Sign Reading Time Taken Comments Blood Pressure 118/70 08/04/2023 11:49 AM CDT Pulse 76 08/04/2023 11:49 AM CDT Temperature 36.8 ??C (98.2 ??F) 08/04/2023 11:49 AM C DT Respiratory Rate 18 08/04/2023 11:49 AM CDT Oxygen Saturation 92% 08/04/2023 11:49 AM CDT Inhaled Oxygen Concentration - - Weight - - Height - - Body Mass Index - - documented in this encounter Plan of Treatment Not on file documented as of this encounter Visit Diagnoses Not on filedocumented in this encounter Home Health Visit - Care Plan Visit Details Visit Type -OT - DISCIPLINE DISCHARGE Discipline -Occupational Therapy Problems Problem Description Start Date Status Goals Interve ntions OCCUPATIONAL THERAPY GENERAL ORDER (O) Disciplines: Occupational Therapy Occupational Therapy General Order 07/15/2023 Resolved on 08/04/2023 1 goal linked to scheduled/document ed intervention 1 goal intervention scheduled/document ed in this visit OT DISCHARGE Disciplines: Occupational Therapy OT Discharge 07/15/2023 Resolved on 08/04/2023 - 1 problem intervention scheduled/document ed in this visit OT COMPREHENSIV E Disciplines: Occupational Therapy 07/15/2023 Resolved on 08/04/2023 5 goals linked to scheduled/document ed interventions 2 goal interventions scheduled/document ed in this visit Goals Goal Associated Problem Outcome Goal Met? Visit Notes Occupational Therapy General Description: After assessing the patient and discussing the patient's goals the following were identified. Patient Centered Auditor/Quality Goal: safely get in the tub/shower Target date: 08/05/23 goal met OCCUPATIONAL THERAPY GENERAL ORDER (O) No OT Bathing Description: Short Term Goal: Patient will complete total body bathing at tub level while sitting with tub bench and grab bars with independence and good understanding of safety/technique. To be met by 08/05/23. OT COMPREHENSIVE Therapy: Goal not met No OT Activity Tolerance Description: Short Term Goal: Patient to demonstrate increased activity tolerance with a pulse ox reading of > or = to 90% to perform ADLs at sitting level. To be met by 08/05/23. OT COMPREHENSIVE Therapy: Goal met Yes goal met for therapeutic activities as pt. declined ADL OT Energy Conservation Description: Short Term Goal: Patient will teach back 4/4 energy conservation principles for rest breaks, diaphragmatic breathing, pursed mouth breathing and activity planning with independence with handout in order to complete bathing with good understanding of safety/technique. To be met by 08/05/23. OT COMPREHENSIVE Therapy: Goal met Yes met for teachback; unsure of follow-through as pt. declines bathing OT Transfers Description: Short Term Goal: Patient will complete tub transfer with adaptive equipment of bench and grab bar with independence and good understanding of safety/technique. To be met by 08/05/23. OT COMPREHENSIVE Therapy: Goal met Yes Pt. given transfer tub bench this date and demo. transfer independently Goal met OT Home Exercise Program Description: Short Term Goal: Patient will perform HEP of UE ROM with independence and good understanding of safety/technique. To be met by 08/05/23. OT COMPREHENSIVE Therapy: Goal met Yes goal met Interventions Intervention Associated Problem/Goal Status Variance Visit Notes OT Evaluation (Order Only) Description: 63 y/o male with oropharyngeal cancer, is receiving chemotherapy every and Radiotherapy Tuesday through Tuesday at [facility] cancer, and has had a 10 % body weight loss over the past 6 months. Surgical history: Appendectomy 2018, Laryngoscopy with biopsy 03/25/23, G tube placement 03/28/23 Patient has developed some cellulitis around g tube and Bactroban was ordered 07/06/23. Spirolactone was ordered 07/07 for +3 pitting edema bilateral feet. Past Medical History: HTN, edentulous, Appendectomy Other contributing issues: Continues to smoke 7 cigaretes a day Occupational therapy for tub transfer with equipment recommendations, UE HEP, and energy conservation Patient and MARC Joyce are in agreement with plan of care. Perform pulse oximetry PRN for intermittent assessment and/ or respiratory distress. Problem:OCCUPATIONAL THERAPY GENERAL ORDER (O) Goal:Occupational Therapy General Completed OT Discharge Problem:OT DISCHARGE Completed Medication list reviewed and left in home. Medicare notice of discharge signed on n/a as PAPER FOLDING MACHINE OPERATOR still seeing pt. Discharge Instructions provided to Patient. Response verbalize understanding and return demonstration. OT Bathing Description: Instruct on bathing techniques and safety. ADL equipment as needed. Problem:OT COMPREHENSIVE Goal:OT Bathing Completed Pt. simulated bathing on transfer tub bench. He declined to actually do bathing Goal not met but instructed on safety and techniques OT Transfers Description: Instruct on transfer techniques and safety. Equipment as needed. Problem:OT COMPREHENSIVE Goal:OT Transfers Completed Pt. was given transfer tub bench and it was adjusted accordingly. He demo. transfer in and out of the tub independently. Goal met documented in this encounter Care Teams Care Program Director Relationship Specialty Start Date End Date Jorge Espinosa PA [address] [place] [address] PCP - General Physician Telecommunications Equipment Installer 04/11/23 Antwon Mirza MD [address] [place] [address] Consulting Physician Medical Oncology 05/04/23 Roland Patel MD [address] [place] [address] Consulting Physician Radiation Oncology 05/04/23 documented as of this encounter
--- OUTSIDE RECORDS SUMMARY | 2024-02-15 11:27 | XMS_ITS | Encounter Summary ---
Author Organization [facility] Address [address] [facility] [place] [address] Phone Care Team Providers Care Furniture Upholstery Mechanic Name Role Phone Jorge Espinosa Primary Care Provider [phone] Antwon Mirza MD Unavailable [phone] Roland Patel MD Unavailable Encounter Details Date Type Department Care Team (Latest Contact Info) Description 09/05/2023 Non-Scheduled Office Visit [facility] Oncology Services [address] [place] [address] Roland Patel MD [address] [place] [address] Oropharyngeal cancer (HCC) (Primary Dx); History of therapeutic radiation; History of chemotherapy; Noncompliance; Dysphagia, oropharyngeal; PEG (percutaneous endoscopic gastrostomy) status (HCC); Cachexia (HCC); History of cancer chemotherapy Social History Tobacco Use Types Packs/Day Years Used Date Smoking Tobacco: Every Day Cigarettes 0.5 50.9 Started: 1973 Smokeless Tobacco: Never Alcohol Use Standard Drinks/Week Comments Yes 0 (1 standard drink = 0.6 oz pure alcohol) Occasionally, never a regular drinker Sex and Gender Information Value Date Recorded Sex Assigned at Not on file Legal Sex Male 3:34 PM MICROBIOLOGY PROFESSOR Gender Identity Not on file Sexual Orientation Not on file documented as of this encounter Progress Notes * Roland Patel MD - 09/05/2023 3:51 PM CDT RADIATION ONCOLOGY COMPLETION OF TREATMENT SUMMARY DATE: 09/05/2023 NAME: Aleksey Godfrey SrShailesh : 1960 Patient Care Team: Jorge Espinosa PA as PCP - General (Physician Car Varnisher) Antwon Mirza MD as Consulting Physician (Medical Oncology) Roland Patel MD as Consulting Physician (Radiation Oncology) Mr. Aleksey Godfrey Sr. 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 Prior Courses of Radiotherapy: None. The details of this course of radiotherapy are below: DATES OF TREATMENT: 05/12/2023 thru 08/12/2023. His final 2 fractions were August 09 and 2023 and his last fraction prior to August 09 was on July 11. SITE: Oropharynx and regional lymphatics TOTAL DOSE: 54 Gy in 27 fractions out of a planned 70 Gy in 35 fractions.. DOSE PER FRACTION: 2 Gy MODALITY: 6 MeV x-rays TECHNIQUE: 3-arc VMAT/IMRT SYSTEMIC THERAPY: Concurrent weekly cetuximab with cycle 1 05/12/2023, cycle 2 05/19/2023, cycle 3 05/26/2023, cycle 4 06/02/2023, cycle 5 06/09/2023, cycle 6 06/16/2023, cycle 7 07/07/2023. TOLERANCE AND DISPOSITION: Overall, Mr. Aleksey Godfrey Sr. tolerated the treatment without any discernible radiotherapy related side effects given the very sporadic and prolonged nature of his treatments. Please see multiple nodes in the system. After a discussion with his family and the patient he elected to discontinue trying to complete treatment and be treated with palliative measures. No follow-up was planned for this office. Roland Patel MD 09/05/2023 documented in this encounter Plan of Treatment Not on file documented as of this encounter Visit Diagnoses Diagnosis Oropharyngeal cancer (HCC)- Primary Malignant neoplasm of oropharynx, unspecified site History of therapeutic radiation Personal history of irradiation, presenting hazards to health History of chemotherapy Personal history of antineoplastic chemotherapy Noncompliance Personal history of noncompliance with medical treatment, presenting hazards to health Dysphagia, oropharyngeal Dysphagia, oropharyngeal phase PEG (percutaneous endoscopic gastrostomy) status (HCC) Cachexia (HCC) Cachexia History of cancer chemotherapy Personal history of antineoplastic chemotherapy documented in this encounter Care Teams Furniture Upholstery Mechanic Relationship Specialty Start Date End Date Jorge Espinosa PA [address] [place] [address] PCP - General Physician Car Varnisher 04/11/23 Antwon Mirza MD [address] [place] [address] Consulting Physician Medical Oncology 05/04/23 Roland Patel MD [address] [place] [address] Consulting Physician Radiation Oncology 05/04/23 documented as of this encounter
--- OUTSIDE RECORDS SUMMARY | 2024-02-15 11:27 | XMS_ITS | Encounter Summary ---
Author Organization [facility] Address [address] [facility] [place] [address] Phone Care Team Providers Care Home Health Nurse Licensed Practical Name Role Phone Jorge Espinosa Primary Care Provider [phone] Antwon Mirza MD Unavailable [phone] Roland Patel MD Unavailable [phone] Reason for Visit * Auth/Cert (Routine) Specialty Diagnoses / Procedures Referred By Contac t Referred To Contact Referral ID Status Reason Start Date Expiration Date Visits Re quested Visits Authorized [id number] Encounter Details Date Type Department Care Team (Latest Contact Info) Description 08/08/2023 9:00 AM CDT Home Care Visit [facility] [address] [place] [address] Amy Swift, BHUMIKA [place] OFFICER LIEUTENANT - INITIAL EVALUATION Social History Tobacco Use Types Packs/Day Years Used Date Smoking Tobacco: Every Day Cigarettes 0.5 50.9 Started: 1973 Smokeless Tobacco: Never Alcohol Use Standard Drinks/Week Comments Yes 0 (1 standard drink = 0.6 oz pure alcohol) Occasionally, never a regular drinker Sex and Gender Information Value Date Recorded Sex Assigned at Not on file Legal Sex Male 3:34 PM PATTERN FITTER Gender Identity Not on file Sexual Orientation Not on file documented as of this encounter Miscellaneous Notes * Home Health - Amy Swift MSW - 08/08/2023 9:19 AM CDT Care summary for OFFICER LIEUTENANT. Summary of care 1) completed initial evaluation and needs assessment 2) call to [facility] regarding a referral for Dept on Aging homemaker service 3) call to [facility] and requested an application be sent to Aleksey's address. SMART goal Aleksey will have access to in-home help. Plan for next visit follow-up with community resources. Plan of care updates completed and provided to patient/caregiver: No, no updates today. documented in this encounter Plan of Treatment Not on file documented as of this encounter Visit Diagnoses Not on filedocumented in this encounter Home Health Visit - Care Plan Visit Details Visit Type -OFFICER LIEUTENANT - INITIAL EV ALUATION Discipline -Medical Social Work Problems Problem Description Start Date Status Goals Interve ntions OFFICER LIEUTENANT Disciplines: Semi Automatic Sewing Machine Operator OFFICER LIEUTENANT 08/08/2023 Active 1 goal linked to scheduled/documente d intervention 3 goal interventions scheduled/documented in this visit Goals Goal Associated Problem Outcome Goal Met? Visit Notes OFFICER LIEUTENANT Description: 1. Patient will demonstrate motivation toward recovery or improved functioning. within 3 visits 2. Patient will verbalize understanding of methods to obtain adequate financial support to meet identified health needs. within 3 visits 3. Patient/caregiver will demonstrate how and when to call for help/assistance. within 1 visits 4. Patient will verbalize understanding of how to access community resources to meet long-term care needs. within 3 visits 5. Patient centered [facility] goal: Aleksey will have access to in-home help. OFFICER LIEUTENANT No Interventions Intervention Associated Problem/Goal Status Variance Visit Notes OFFICER LIEUTENANT Pain Problem:OFFICER LIEUTENANT Goal:OFFICER LIEUTENANT Completed Is the patient in physical pain or do they have other symptoms to be reported to the case aide? no. Notified N/A. OFFICER LIEUTENANT In-Home Services Description: Educate/ explore/ facilitate in home services. Problem:OFFICER LIEUTENANT Goal:OFFICER LIEUTENANT Completed In home services facilitated call to [facility] regarding a referral for Dept on Aging homemaker service. OFFICER LIEUTENANT Transportation Needs Description: Educate/ explore/ facilitate transportation assistance. Problem:OFFICER LIEUTENANT Goal:OFFICER LIEUTENANT Completed Transportation assistance provided call to [facility] and requested an application be sent to Aleksey's address. Response pending. documented in this encounter Care Teams Home Health Nurse Licensed Practical Relationship Specialty Start Date End Date Jorge Espinosa PA [address] [place] [address] PCP - General Physician Puncher And Fastener 04/11/23 Antwon Mirza MD [address] [place] [address] Consulting Physician Medical Oncology 05/04/23 Roland Patel MD [address] [place] [address] Consulting Physician Radiation Oncology 05/04/23 documented as of this encounter
--- OUTSIDE RECORDS SUMMARY | 2024-02-15 11:27 | XMS_ITS | Encounter Summary ---
Author Organization [facility] Care Team Providers Care Laundry Worker Name Role Phone Jorge Espinosa Primary Care Provider [phone] Antwon Mirza MD Unavailable [phone] Roland Patel MD Unavailable [phone] Encounter Details Date Type Department Care Team (Latest Contact Info) Description 08/12/2023 Travel Social History Tobacco Use Types Packs/Day Years Used Date Smoking Tobacco: Every Day Cigarettes 0.5 50.9 Started: 1974 Smokeless Tobacco: Never Alcohol Use Standard Drinks/Week Comments Yes 0 (1 standard drink = 0.6 oz pure alcohol) Occasionally, never a regular drinker Sex and Gender Information Value Date Recorded Sex Assigned at Not on file Legal Sex Male 3:34 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
--- OUTSIDE RECORDS SUMMARY | 2024-02-15 11:27 | XMS_ITS ---
Author Organization [facility] Address [address] [place] [address] Phone Care Team Providers Care Apparel Embroidery Digitizer Name Role Phone Jorge Espinosa Primary Care Provider [phone] Antwon Mirza MD Unavailable [phone] Roland Patel MD Unavailable [phone] Active Problems Problem Noted Date Diagnosed Date History of therapeutic radiation 09/05/2023 Overview (09/05/2023): Oropharyngeal and regional lymphatic radiotherapy 54 Gy in 27 fractions from 05/12/2023 thru 08/12/2023. Patient was very sporadic and noncompliant in coming in for treatment hence the prolonged nature of the radiotherapy he received. Cachexia 07/13/2023 History of cancer chemotherapy 07/11/2023 Overview (09/05/2023): Weekly cetuximab concurrent with oropharyngeal radiotherapy with cycle 1 05/12/2023, cycle 2 05/19/2023, cycle 3 05/26/2023, cycle 4 06/02/2023, cycle 5 06/09/2023, cycle 6 06/16/2023, and cycle 7 07/07/2023. Unintentional weight loss of more than 10% body weight within 6 months 07/11/2023 PEG (percutaneous endoscopic gastrostomy) status 04/19/2023 Current smoker 04/11/2023 Oropharyngeal cancer 04/11/2023 Cancer Staging:Clinical stage from 03/30/2023:Stage III(cT4, cN2, cM0, p16+) - Signed by Roland Patel MD on 04/19/2023 Dysphagia, oropharyngeal 04/11/2023 Current Treatment and Therapy Plans [facility]: Cetuximab - 28 Day Cycles - Head and Neck* Plan Start Date:05/09/2023 Plan Provider:Antwon Mirza MD Linked Problems Oropharyngeal cancer (HCC) Treatment Medications Current Day (Day 2 2, Cycle 2 - Planned for 07/08/2023) Next Day (Day 1, Cycle 3 - Planned for 07/15/2023) cetuximab (ERBITUX) cetuximab (ERBITUX) infusion 362 mg cetuximab (ERBITUX) infusion 362 mg Past Treatment and Therapy Plans ONCOLOGY TREATMENT Plan Name Start Date Discontinue Date Treatment Medications Discontinue Reason Plan Provider Cycles [facility]: CISplatin (every 3 weeks) with Concurrent Radiation - 21 Day Cycle - Head and Neck 4 05/09/2023 CISplatin (PLATINOL) chemo infusion Not Tolerated [place] Mirza MD Treatment not started Current Radiation Episodes * IMRT: Bilateral Oropharynx, Bilateral Neck, Bilateral Supraclavicular fossa Overview* First Treatment Date Latest Treatment Date Treatment Site Technique Goal Episode Provider 05/12/2023 08/12/2023 Bilateral OropharynxBilateral NeckBilateral Supraclavicular fossa IMRT Curative * Linked Problems Treatment Courses* Course C1 05/12/2023 - 08/12/2023 Treatment Period Fraction Dose Fractions Total Dose Plans Planned [id number] 05/12/2023 - 08/12/2023 200 cGy 27 / 35 7 ,000 cGy Reference Points Delivered HN_PRP 05/12/2023 - 08/12/2023 ? ? 5,400 cGy Resolved Problems Problem Noted Date Diagnosed Date Resolved Date Cellulitis of abdominal wall 07/11/2023 09/05/2023 Metastasis to head and neck lymph node 05/06/2023 05/06/2023 Status post insertion of per cutaneous endoscopic gastrostomy (PEG) tube 04/11/20232023
--- OUTSIDE RECORDS SUMMARY | 2024-02-15 11:27 | XMS_ITS | Encounter Summary ---
Author Organization [facility] Address [address] [place] [address] Phone Care Team Providers Care Machinist 2Nd Shift Name Role Phone Jorge Espinosa Primary Care Provider [phone] Antwon Mirza MD Unavailable Roland Patel MD Unavailable [phone] Encounter Details Date Type Department Care Team (Late st Contact Info) Description 08/04/2023 Telephone [facility] [address] [place] [address] Gillian Bailey Edith, PAC [address] [place] [address] Social History Tobacco Use Types Packs/Day Years Used Date Smoking Tobacco: Every Day Cigarettes 0.5 50.9 Started: 1974 Smokeless Tobacco: Never Alcohol Use Standard Drinks/Week Comments Yes 0 (1 standard drink = 0.6 oz pure alcohol) Occasionally, never a regular drinker Sex and Gender Information Value Date Recorded Sex Assigned at Not on file Legal Sex 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 Gender Identity Not on file Sexual Orientation Not on file documented as of this encounter Miscellaneous Notes * Telephone Encounter - Daniela Rodriguez, CHILD WELFARE WORKER-SPEECH LANGUAGE PATHOLOGIST - 08/04/2023 12:21 PM CDT Error Electronically signed by Daniela Rodriguez, CHILD WELFARE WORKER-SPEECH LANGUAGE PATHOLOGIST at 08/04/2023 12:21 PM CDT documented in this encounter Plan of Treatment Not on file documented as of this encounter Visit Diagnoses Not on filedocumented in this encounter Care Teams Machinist 2Nd Shift Relationship Specialty Start Date End Date Jorge Espinosa PA [address] [place] [address] PCP - General Physician Dietary Aide 04/11/23 Antwon Mirza MD [address] [place] [address] Consulting Physician Medical Oncology 05/04/23 Roland Patel MD [address] [place] [address] Consulting Physician Radiation Oncology 05/04/23 documented as of this encounter
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
--- OUTSIDE RECORDS SUMMARY | 2024-02-15 11:27 | XMS_ITS | Encounter Summary ---
Author Organization [facility] Address [address] [facility] [place] [address] Phone Care Team Providers Care Admitting Interviewer Name Role Phone Jorge Espinosa Primary Care Provider [phone] Antwon Mirza MD Unavailable [phone] Roland Patel MD Unavailable [phone] Reason for Visit * Auth/Cert (Routine) Specialty Diagnoses / Procedures Referred By Contac t Referred To Contact Referral ID Status Reason Start Date Expiration Date Visits Re quested Visits Authorized [id number] 02 [id number] Encounter Details Date Type Department Care Team (Late st Contact Info) Description 08/24/2023 10:30 AM CDT Home Care Visit [address] [address] Amy Swift, FIBERGLASS BOAT MAKER [place] FIBERGLASS BOAT MAKER - HOME VISIT Social History Tobacco Use Types Packs/Day Years Used Date Smoking Tobacco: Every Day Cigarettes 0.5 50.9 Started: 1974 Smokeless Tobacco: Never Alcohol Use Standard Drinks/Week Comments Yes 0 (1 standard drink = 0.6 oz pure alcohol) Occasionally, never a regular drinker Sex and Gender Information Value Date Recorded Sex Assigned at Not on file Legal Sex Male 3:34 PM BALANCE 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 INSPECTOR Gender Identity Not on file Sexual Orientation Not on file documented as of this encounter Plan of Treatment Not on file documented as of this encounter Visit Diagnoses Not on filedocumented in this encounter Home Health Visit - Care Plan Visit Details Visit Type -FIBERGLASS BOAT MAKER - HOME VISIT Discipline -Medical Social Work Problems Problem Description Start Date Status Goals Interve ntions FIBERGLASS BOAT MAKER Disciplines: Shoe Lining Fitter FIBERGLASS BOAT MAKER 08/08/2023 Active 1 goal linked to scheduled/documente d intervention 2 goal interventions scheduled/documented in this visit Goals Goal Associated Problem Outcome Goal Met? Visit Notes FIBERGLASS BOAT MAKER Description: 1. Patient will demonstrate motivation toward [...] needs. within 3 visits 5. Patient centered supervisor intermediates goal: Aleksey will have access to in-home help. FIBERGLASS BOAT MAKER No Interventions Intervention Associated Problem/Goal Status Variance Visit Notes FIBERGLASS BOAT MAKER Pain Problem:FIBERGLASS BOAT MAKER Goal:FIBERGLASS BOAT MAKER Completed Is the patient in physical pain or do they have other symptoms to be reported to the case resolution specialist? no. Notified N/A. FIBERGLASS BOAT MAKER In-Home Services Description: Educate/ explore/ facilitate in home services. Problem:FIBERGLASS BOAT MAKER Goal:FIBERGLASS BOAT MAKER Completed In home services facilitated education regarding Dept on Aging homemaker service application process. documented in this encounter Care Teams Admitting Interviewer Relationship Specialty Start Date End Date Jorge Espinosa PA [address] [place] [address] PCP - General Physician Application Consultant 04/11/23 Antwon Mirza MD [address] [place] [address] Consulting Physician Medical Oncology 05/04/23 Roland Patel MD [address] [place] [address] Consulting Physician Radiation Oncology 05/04/23 documented as of this encounter
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
--- OUTSIDE RECORDS SUMMARY | 2024-02-15 11:27 | XMS_ITS | Encounter Summary ---
Author Organization [facility] Address [address] [facility] [place] [address] Phone Care Team Providers Care Plant Utility Person Name Role Phone Jorge Espinosa Primary Care Provider [phone] Antwon Mirza MD Unavailable [phone] Roland Patel MD Unavailable [phone] Reason for Visit * Auth/Cert (Routine) Specialty Diagnoses / Procedures Referred By Contac t Referred To Contact Referral ID Status Reason Start Date Expiration Date Visits Re quested Visits Authorized [id number] 02 19 Encounter Details Date Type Department Care Team (Late st Contact Info) Description 08/08/2023 Home Care Visit [facility] [address] [place] [address] Amy Swift, ROAD FREIGHT BRAKE COUPLER [place] TELEPHONE ENCOUNTER Social History Tobacco Use Types Packs/Day Years Used Date Smoking Tobacco: Every Day Cigarettes 0.5 50.9 Started: 1974 Smokeless Tobacco: Never Alcohol Use Standard Drinks/Week Comments Yes 0 (1 standard drink = 0.6 oz pure alcohol) Occasionally, never a regular drinker Sex and Gender Information Value Date Recorded Sex Assigned at Not on file Legal Sex Male 3:34 PM UNIT ASSEMBLER Gender Identity Not on file Sexual Orientation Not on file documented as of this encounter Plan of Treatment Not on file documented as of this encounter Visit Diagnoses Not on filedocumented in this encounter Care Teams Plant Utility Person Relationship Specialty Start Date End Date Jorge Espinosa PA [address] [place] [address] PCP - General Physician Voicer 04/11/23 Antwon Mirza MD [address] [place] [address] Consulting Physician Medical Oncology 05/04/23 Roland Patel MD [address] [place] [address] Consulting Physician Radiation Oncology 05/04/23 documented as of this encounter
--- OUTSIDE RECORDS SUMMARY | 2024-02-15 11:27 | XMS_ITS | Encounter Summary ---
Author Organization [facility] Address [address] [facility] 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 Encounter Details Date Type Department Care Team (Late st Contact Info) Description 08/10/2023 1:00 PM CDT [facility] [address] [place] [address] Roland Patel MD [address] [place] [address] Encounter for radiotherapy (Primary Dx); Patient on combined chemotherapy and radiation; Oropharyngeal cancer (HCC); Dysphagia, oropharyngeal; PEG (percutaneous endoscopic gastrostomy) status (HCC); Cachexia (HCC); Noncompliance Discharge Disposition: Discharged to home or Selfcare Social History Tobacco Use Types Packs/Day Years [...] on file 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 Gender Identity Not on file Sexual Orientation Not on file documented as of this encounter Last Filed Vital Signs Vital Sign Reading Time Taken Comments Blood Pressure 165/57 08/10/2023 1:08 PM CDT Pulse - - Temperature 36.3 ??C (97.4 ??F) 08/10/2023 1:08 PM CD T Respiratory Rate 18 08/10/2023 1:08 PM CDT Oxygen Saturation 99% 08/10/2023 1:08 PM CDT Inhaled Oxygen Concentration - - Weight 46.5 kg (102 lb 8 oz) 08/10/2023 1:08 PM CDT Height 165.1 cm (5' 5 ) 08/10/2023 1:08 PM CDT Body Mass Index 17.06 08/10/2023 1:08 PM CDT documented in this encounter Progress Notes * Roland Patel MD - 08/10/2023 1:00 PM CDT [facility] RADIATION ONCOLOGY ON TREATMENT VISIT Patient Name: Aleksey Godfrey . Encounter Date: 08/10/2023 Diagnosis: 1. Encounter for radiotherapy 2. Patient on combined chemotherapy and radiation 3. Oropharyngeal cancer (HCC) 4. Dysphagia, oropharyngeal 5. PEG (percutaneous endoscopic gastrostomy) status (HCC) 6. Cachexia (HCC) 7. Noncompliance Site: Oropharynx and regional lymphatics Total Dose to Date: 5200 cGy of 7000 cGy Systemic Therapy: Concurrent weekly cetuximab with cycle 1 05/12/2023, cycle 2 05/19/2023, cycle 3 05/26/2023, cycle 4 06/02/2023, cycle 5 06/09/2023, cycle 6 06/16/2023, cycle 7 07/07/2023. Patient Concerns/Complaints: He returned today to resume treatment with his last treatment 07/12/2023. From talking with him there were multiple reasons why he did not come in in the interim including going to [place] for the of a cousin. He currently denied any symptoms of radiation pharyngitis/esophagitis which was not surprising given the 1 month off of treatment. Also no skin compl aints which also was not surprising for the same reason. He continued to be G- tube dependent and NPO. Fortunately his weight was up. He had no complaints today. He said he would be diligent in completing the final 9 treatments without interruption. He was seen by himself. Patient Weight: Reviewed. Wt Readings from Last 3 Encounters: 08/10/23 102 lb 8 oz (46.5 kg) 07/09/23 (!) 82 lb (37.2 kg) 07/07/23 (!) 96 lb (43.5 kg) Vitals: 08/10/23 1308 BP: 165/57 BP Location: Left Arm Resp: 18 Temp: 97.4 ??F (36.3 ??C) TempSrc: Tympanic SpO2: 99% Weight: 102 lb 8 oz (46.5 kg) Height: 5' 5 (1.651 m) Physical Examination: ECOG PS of a marginal 1, stable.. In general he was a thin/cachectic appearing white male in no acute distress. Speech, gait and affect were within normal limits. He was breathing comfortably. Oral cavity and oropharynx were without radiotherapy related changes. No radiotherapy related changes of the neck. The G-tube site was clean. No gross neurologic deficits. Imaging: CBCT was obtained, reviewed and approved today. Impression: The primary encounter diagnosis was Encounter for radiotherapy. Diagnoses of Patient oncombined chemotherapy and radiation, Oropharyngeal cancer (HCC), Dysphagia, oropharyngeal, PEG (percutaneous endoscopic gastrostomy) status (HCC), Cachexia (HCC), and Noncompliance were also pertinent to this visit. Currently under radiotherapy treatment and overall doing well. All questions answered. No to minimal side effects thus far not requiring intervention with regards radiotherapy. Plan: Continue radiotherapy and concurrent weekly cetuximab. The importance of completing his finalnon treatments without interruption was stressed and he verbalized understanding and said he would do his best. By: Roland Patel MD 08/10/2023, 1:15 PM CDT Patient Care Team: Jorge Espinosa PA as PCP - General (Physician Catering Operations Manager) Antwon Mirza MD as Consulting Physician (Medical Oncology) Roland Patel MD as Consulting Physician (Radiation Oncology) * Roland Patel MD - 08/10/2023 1:00 PM CDT INTERVAL NOTE: Please see today's OTV note. He returned today after his last treatment 07/12/2023. He was in no distress and was at his baseline if not actually a little bit better with an increase in his weight. The plan is to resume treatment and hopefully complete his remaining treatments in an u ninterrupted fashion. Roland Patel MD 08/10/2023 documented in this encounter Miscellaneous Notes * Interdisciplinary - Thu Siu RN - 08/10/2023 1:00 PM CDT Patient here for OTV with Dr Patel Patient placed in room for appointment.Vitals taken patient denies changes or falls. Medication list reviewed. Cosigned by Roland Patel MD at 08/10/2023 1:10 PM CDT documented in this encounter Plan of Treatment Not on file documented as of this encounter Visit Diagnoses Diagnosis Encounter for radiotherapy- Primary Radiotherapy Patient on combined chemotherapy and radiation Encounter for antineoplastic chemotherapy Oropharyngeal cancer (HCC) Malignant neoplasm of oropharynx, unspecified site Dysphagia, oropharyngeal Dysphagia, oropharyngeal phase PEG (percutaneous endoscopic gastrostomy) status (HCC) Cachexia (HCC) Cachexia Noncompliance Personal history of noncompliance with medical treatment, presenting hazards to health documented in this encounter Care Teams Radio Aerial Installer Relationship Specialty Start Date End Date Jorge Espinosa PA [address] [place] [address] PCP - General Physician Catering Operations Manager 04/11/23 Antwon Mirza MD [address] [place] [address] Consulting Physician Medical Oncology 05/04/23 Roland Patel MD [address] [place] [address] Consulting Physician Radiation Oncology 05/04/23 documented as of this encounter
--- OUTSIDE RECORDS SUMMARY | 2024-02-15 11:27 | XMS_ITS | Encounter Summary ---
Author Organization [facility] Address [address] [facility] 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 Gender Identity Not on file Sexual Orientation Not on file documented as of this encounter Plan of Treatment Not on file documented as of this encounter Procedures Procedure Name Priority Date/Time Associated Diagnosis Comments RAD ONC ARIA SESSION SUMMARY Routine 08/10/2023 12:59 PM CDT documented in this encounter Results * RAD ONC ARIA SESSION SUMMARY (08/10/2023 12:59 PM CDT) Course ID C1 ARIA RO MODEL Course Intent Curative w/chemo ARIA RO MODEL Course Start Date 05/06/2023 11:27 AM ARIA RO MODEL Session Number 26 ARIA RO MODEL Course End Date 05/12/2023 9:16 AM ARIA RO MODEL Course Last Treatment Date 08/10/2023 1:01 PM ARIA RO MODEL Course Elapsed Days 90 ARIA RO MODEL Reference Point ID [id number] ARIA RO MODEL Reference Point Dosage Given to Date [id number] Gy ARIA RO MODEL Reference Point Session Dosage Given [id number] Gy ARIA RO MODEL Plan ID [id number] ARIA RO MODEL Plan Name Oropharynx & Nodes_70Gy ARIA RO MODEL Energy 6X ARIA RO MODEL Plan Fractions Treated to Date 26 ARIA RO MODEL Plan Total Fractions Prescribed 35 ARIA RO MODEL Plan Prescribed Dose Per Fraction 2 Gy ARIA RO MODEL Plan Total Prescribed Dose 7,000 cGy ARIA RO MODEL Plan Primary Reference Point HN_PRP ARIA RO MODEL 08/10/2023 12:5 9 PM CDT us Unknown Provider RADIATION ONCOLOGY ORDERABLES F inal Result Performing Organization Address City/State/[facility] Co de Phone Number ARIA RO MODEL [address] [place] [address] documented in this encounter Visit Diagnoses Not on filedocumented in this encounter Care Teams Furniture Cleaner Relationship Specialty Start Date End Date Jorge Espinosa PA [address] [place] [address] PCP - General Physician Truck Unloader 04/11/23 Antwon Mirza MD [address] [place] [address] Consulting Physician Medical Oncology 05/04/23 Roland Patel MD [address] [place] [address] Consulting Physician Radiation Oncology 05/04/23 documented as of this encounter
--- OUTSIDE RECORDS SUMMARY | 2024-02-15 11:27 | XMS_ITS | Encounter Summary ---
Author Organization [employer] Care Team Providers Care Distributor Operator Name Role Phone Jorge Espinosa Primary Care Provider [phone] Antwon Mirza MD Unavailable [phone] Roland Patel MD Unavailable [phone] Encounter Details Date Type Department Care Team (Latest Contact Info) Description 08/10/2023 Travel Social History Tobacco Use Types Packs/Day Years Used Date Smoking Tobacco: Every Day Cigarettes 0.5 50.9 Started: 1974 Smokeless Tobacco: Never Alcohol Use Standard Drinks/Week Comments Yes 0 (1 standard drink = 0.6 oz pure alcohol) Occasionally, never a regular drinker Sex and Gender Information Value Date Recorded Sex Assigned at Not on file 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 Gender Identity Not on file Sexual Orientation Not on file documented as of this encounter Plan of Treatment Not on file documented as of this encounter Visit Diagnoses Not on filedocumented in this encounter Care Teams Distributor Operator Relationship Specialty Start Date End Date Jorge Espinosa PA [address] [place] [address] PCP - General Physician Remotely Piloted Vehicle Controller 04/11/23 Antwon Mirza MD [address] [place] [address] Consulting Physician Medical Oncology 05/04/23 Roland Patel MD [address] [place] [address] Consulting Physician Radiation Oncology 05/04/23 documented as of this encounter
--- OUTSIDE RECORDS SUMMARY | 2024-02-15 11:27 | XMS_ITS | Encounter Summary ---
Author Organization [facility] Address [address] [facility] [place] [address] Phone Care Team Providers Care Flatwork Finisher Hand Name Role Phone Jorge Espinosa Primary Care Provider [phone] Antwon Mirza MD Unavailable [phone] Roland Patel MD Unavailable [phone] Reason for Visit * Auth/Cert (Routine) Specialty Diagnoses / Procedures Referred By Contac t Referred To Contact Referral ID Status Reason Start Date Expiration Date Visits Re quested Visits Authorized [id number] 02 19 Encounter Details Date Type Department Care Team (Late st Contact Info) Description 08/08/2023 3:00 PM CDT Home Care Visit 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 Gender Identity Not on file Sexual Orientation Not on file documented as of this encounter Last Filed Vital Signs Vital Sign Reading Time Taken Comments Blood Pressure 150/66 08/08/2023 2:48 PM CDT Pulse 63 08/08/2023 2:48 PM CDT Temperature 36.2 ??C (97.1 ??F) 08/08/2023 2:48 PM CD T Respiratory Rate - - Oxygen Saturation 95% 08/08/2023 2:48 PM CDT Inhaled Oxygen Concentration - - Weight - - Height - - Body Mass Index - - documented in this encounter Plan of Treatment Not on file documented as of this encounter Visit Diagnoses Not on filedocumented in this encounter Home Health Visit - Care Plan Visit Details Visit Type -EDUCATION OFFICER - HOME VISIT Discipline -Speech Language Pathology Problems Problem Description Start Date Status Goals Interve ntions FALL PREVENTION (O) Disciplines: SN, PT, OT, EDUCATION OFFICER, HCA, OUTBOARD MOTOR ASSEMBLER, RT 07/09/2023 Active 1 goal linked to scheduled/document ed intervention 1 goal intervention scheduled/documente d in this visit ALL HH VITAL SIGN PARAMETERS Disciplines: All Home Care 07/09/2023 Active - 1 problem intervention scheduled/documente d in this visit ST DM DYSPHAGIA Disciplines: Speech Language Pathology 07/21/2023 Active 1 goal linked to scheduled/document ed intervention 1 goal intervention scheduled/documente d in this visit ST DM COGNITION Disciplines: Speech Language Pathology 07/28/2023 Active 1 goal linked to scheduled/document ed intervention 1 goal intervention scheduled/documente d in this visit Goals Goal Associated Problem Outcome Goal Met? Visit Notes Fall Prevention Description: Shared goal applicable to all disciplines with a visit frequency order. Patient/ Caregiver will verbalize understanding of identified fall risk based on MAHC-10 Fall Risk assessment and methods to prevent falls. Target date: by 07/28/23 (date) FALL PREVENTION (O) No ST Swallowing Description: Short Term Goal Patient will teach back trained aspiration precautions independently in order to reduce risk of aspiration pneumonia. To be met by 08/20/23. Patient will demonstrate implementation of trained safe swallowing compensatory strategies including: double/dry swallow, slow rate, small single bites/sips, alternate consistencies, effortful swallow, throat clear/reswallow and effortful airway protection maneuverswith 70 % accuracy with moderate visual/verbal cues in order to increase safety and efficiency with oral intake to be met by 08/20/23 Skilled Nursing Goals Patient will retuirn demonstrate oral/pharyngeal/laryngeal exercises including: trismus AROM/PROM, effortful swallow, Ayden Maneuver, Chin Tuck Against Resistance (CTAR), effortful pitch glides with 8/10 effort (Pt self rated using Visual Analog Scale (VAS) with minimal visual.verbal cues in order to improve safety and efficiency with oral intake. To be met by 09/06/23. Patient will demonstrate implementation of trained safe swallowing compensatory strategies including: double/dry swallow, slow rate, small single bites/sips, alternate consistencies, effortful swallow, throat clear/reswallow and effortful airway protection maneuverswith 80 % accuracy with minimal visual/verbal cues in order to increase safety and efficiency with oral intake to be met by 09/06/23. Pt will exhibit improved scores on the The Eating Assessment Tool (EAT-10) from 33/40 to 27/40 evidencing improvement in swallow function. To be met by 09/06/23 ST DM DYSP[address]IA No ST Short-Term Memory Description: Short Term Goal Patient will complete short-term memory tasks utilizing trained internal and/or external memory strategies/compensatory aides with 70 % accuracy with moderate visual/verbal cues in order to improve safety and independence in the home. To be met by 08/20/23 Merchandise Distributor Goal Patient will complete short-term memory tasks utilizing trained internal and/or external memory strategies/compensatory aides with 80 % accuracy with min visual/verbal cues in order to improve safety and independence in the home. To be met by: 09/06/23 ST DM COGNITION No Interventions Intervention Associated Problem/Goal Status Variance Visit Notes Fall (Order Only) Description: Shared intervention applicable to all disciplines with a visit frequency order.Patient meets criteria for Fall Risk based on MAHC-10 score. Instruct patient/caregiver on fall prevention measures. Problem:FALL PREVENTION (O) Goal:Fall Prevention Completed All HH Vital Sign Parameters (Order Only) Description: Standard parameters to report to physician (unless patient specific parameters are ordered) - Applicable to all disciplines involved in patient's plan of care: Systolic blood pressure less than 90 Systolic blood pressure greater than 160 and/or diastolic blood pressure greater than 100 at rest unless due to uncontrolled pain or missed dose of antihypertensive medication. Blood Pressure greater than 140/90 for 3 consecutive readings occurring in at least two separate visits. Pulse greater than 110 at rest or less than 50 Respirations greater than 24 at rest or less than 10 Temperature greater than 101 degrees Fahrenheit New or increased edema Pulse ox less than 90% at rest on room air or while wearing prescribed oxygen, if ordered. Uncontrolled pain: chronic pain that changes in character or increases, pain that interferes with activity daily, or pain that is reported as unacceptable by the patient after use of prescribed pain control measures. Problem:ALL HH VITAL SIGN PARAMETERS Completed ST Swallowing Description: Perform swallowing interventions myofascial release, oral motor exercise, trismus interventions, swallow strengthening exercise, training aspiration precautions, and training in safe swallow strategies. Problem:ST DM DYSPHAGIA Goal:ST Swallowing Completed Skilled intervention targeting swallowing dysfunction included: ST trained/facilitated pharyngocise using educationa handout. Pt able to return demo exercises. Modified last jaw exercise to just AROM jaw and using hand for resistance due to not having a device. Pt with 70% accuracy using safe swallow strategies of slow rate, small sips, effortful swallows. Pt completed effirtful swallow with 80% accuracy and MOD cues. Handout provided and trained: Pharyngocise: Maximize Your Swallowing Ability During Cancer Treatment What is pharyngocise? Pharyngocise is a collection of 4 exercises that can help people maintain their swallowing abilities as much as possible during cancer treatment. When should I do pharyngocise? During cancer treatment, patients may experience pain and difficulty swallowing. As a result, patients may not be able to eat or drink as often as they did before cancer treatment. If these patients have trouble swallowing during cancer treatment, the range of movement in the swallowing structures and strength in the swallowing muscles may decline, which may make swallowing and recovery more difficult. Why should I do pharyngocise? Research shows that pharyngocise can help patients maintain their swallowing abilities during cancer treatment. Research also shows that eating and drinking + exercise during cancer treatment leads to better swallowing, better quality of life, and less reliance of feeding tubes after cancer treatment. Do I only need to do pharyngocise? During cancer treatment, you may experience different symptoms that may make it difficult to tailor your exercise program, which is why pharyngocise (and eating and drinking, if possible) is all you need to do at this time. However, a few weeks after cancer treatment, a Speech-Language Pathologist will need to re-assess your swallowing ability with an instrumental swallow study. New exercises, strategies, and/or additional recommendations may be provided to you based on your unique swallowing difficulties. What exercises are involved in the pharyngocise? Do the exercises indicated with checkmarks below 10 times each, 4 times daily. 1. Falsetto: Mckinney up in pitch to reach a high, squeaky voice, then hold it for several seconds with effort. 2. Tongue press: Push your tongue against the roof of your mouth as hard as you can for 5 seconds. 3. Effortful hard swallow: Pretend you have a golf ball stuck in your throat. Swallow as hard as you can by squeezing your tongue and throat as you swallow. 4 Jaw resistance and strengthening with jaw mobility device (TheraBite or OraStretch) or manually: 1.) Push down on your chin with the middle part between your index finger and thumb and use your jaw strength to close your jaw against the resistance of your hand. 2.) Using the palm of your hand, push upward on your chin and use your jaw strength to open your mouth against the resistance of your hand. References: Lauren Prescott., Romario Bundy., Dalila Shanks, & Julio Alicia (2012). Pharyngocise : Randomized controlled trial of preventative exercises to maintain muscle structure and swallowing function during [id number] chemoradiotherapy. International Journal of Radiation Oncology Biology Physics , 83, 210-219. Nick KA, Shannon MK, Dany BM, et al. Eat and exercise during radiotherapy or chemoradiotherapy for pharyngeal cancers: use it or lose it. CAROL ANN Otolaryngol Head Neck Surg. 2013;139(11):0397-8110. doi:10.1001/jamaoto.[address] Short-Term Memory Description: Instruct on short-term memory strategies. Problem:ST DM COGNITION Goal:ST Short-Term Memory Completed Patient uses trained short-term memory aids with 70 % accuracy with minimal visual/verbal cues. Skill provided to improve this function consisted of memory aids for important information documented in this encounter Care Teams Flatwork Finisher Hand Relationship Specialty Start Date End Date Jorge Espinosa PA [address] [place] [address] PCP - General Physician Lead Simulation Modeling Engineer 04/11/23 Antwon Mirza MD [address] [place] [address] Consulting Physician Medical Oncology 05/04/23 Roland Patel MD [address] [place] [address] Consulting Physician Radiation Oncology 05/04/23 documented as of this encounter
--- OUTSIDE RECORDS SUMMARY | 2024-02-15 11:27 | XMS_ITS | Encounter Summary ---
Author Organization [facility] Address [address] [facility] [place] [address] Phone Care Team Providers Care Critical Care Cns Name Role Phone Jorge Espinosa Primary Care Provider [phone] Antwon Mirza MD Unavailable [phone] Roland Patel MD Unavailable [phone] Encounter Details Date Type Department Care Team (Late st Contact Info) Description 08/08/2023 Telephone [facility] Oncology Services [address] [place] [address] Roland Patel MD [address] [place] [address] Social History Tobacco Use Types Packs/Day Years Used Date Smoking Tobacco: Every Day Cigarettes 0.5 50.9 Started: 1974 Smokeless Tobacco: Never Alcohol Use Standard Drinks/Week Comments Yes 0 (1 standard drink = 0.6 oz pure alcohol) Occasionally, never a regular drinker Sex and Gender Information Value Date Recorded Sex Assigned at Not on file 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 She states that her dad is doing a little better. Starting to get some strength back and she thinks he is gaining some weight. She has not bought a scale, though. Statessocial worker is meeting with him today. She will call our office after she speaks with licensed master social worker with an update as to whether he is going to continue treatment or not. documented in this encounter Plan of Treatment Not on file documented as of this encounter Visit Diagnoses Not on filedocumented in this encounter Care Teams Critical Care Cns Relationship Specialty Start Date End Date Jorge Espinosa PA [address] [place] [address] PCP - General Physician Tower Watchman 04/11/23 Antwon Mirza MD [address] [place] [address] Consulting Physician Medical Oncology 05/04/23 Roland Patel MD [address] [place] [address] Consulting Physician Radiation Oncology 05/04/23 documented as of this encounter
--- OUTSIDE RECORDS SUMMARY | 2024-02-15 11:27 | XMS_ITS | Encounter Summary ---
Author Organization [facility] Address [address] [facility] [place] [address] Phone Care Team Providers Care Insole And Outsole Splitter Name Role Phone Jorge Espinosa Primary Care Provider [phone] Antwon Mirza MD Unavailable [phone] Roland Patel MD Unavailable [phone] Reason for Visit * Auth/Cert (Routine) Specialty Diagnoses / Procedures Referred By Contac t Referred To Contact Referral ID Status Reason Start Date Expiration Date Visits Re quested Visits Authorized [id number] Encounter Details Date Type Department Care Team (Late st Contact Info) Description 08/16/2023 3:30 PM CDT Home Care Visit [facility] [address] [place] [address] Daniela Rodriguez, MEAT SCRUBBER-SPEECH LANGUAGE PATHOLOGIST [place] MEAT SCRUBBER - HOME VISIT Social History Tobacco Use Types Packs/Day Years Used Date Smoking Tobacco: Every Day Cigarettes 0.5 50.9 Started: 1974 Smokeless Tobacco: Never Alcohol Use Standard Drinks/Week Comments Yes 0 (1 standard drink = 0.6 oz pure alcohol) Occasionally, never a regular drinker Sex and Gender Information Value Date Recorded Sex Assigned at Not on file Legal Sex Male 3:34 PM 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 RECRUITER Gender Identity Not on file Sexual Orientation Not on file documented as of this encounter Last Filed Vital Signs Vital Sign Reading Time Taken Comments Blood Pressure 138/62 08/16/2023 4:05 PM CDT Pulse 65 08/16/2023 4:05 PM CDT Temperature 36.7 ??C (98 ??F) 08/16/2023 4:05 PM CDT Respiratory Rate - - Oxygen Saturation 96% 08/16/2023 4:05 PM CDT Inhaled Oxygen Concentration - - Weight - - Height - - Body Mass Index - - documented in this encounter Plan of Treatment Not on file documented as of this encounter Visit Diagnoses Not on filedocumented in this encounter Home Health Visit - Care Plan Visit Details Visit Type -MEAT SCRUBBER - HOME VISIT Discipline -Speech Language Pathology Problems Problem Description Start Date Status Goals Interve ntions FALL PREVENTION (O) Disciplines: SN, PT, OT, MEAT SCRUBBER, HCA, MOISTURE MACHINE TENDER, RT 07/09/2023 Active 1 goal linked to scheduled/documen yoselin intervention 1 goal intervention scheduled/document ed in this visit ALL HH VITAL SIGN PARAMETERS Disciplines: All Home Care 07/09/2023 Active - 1 problem intervention scheduled/document ed in this visit ST DM DYSPHAGIA Disciplines: Speech Language Pathology 07/21/2023 Active 1 goal linked to scheduled/documen yoselin intervention 1 goal intervention scheduled/document ed in this visit SPEECH THERAPY EVALUATION Disciplines: Speech Language Pathology ST Evaulation 07/21/2023 Active 1 goal linked to scheduled/documen yoselin intervention 1 goal intervention scheduled/document ed in this visit ST DM COGNITION Disciplines: Speech Language Pathology 07/28/2023 Active 1 goal linked to scheduled/documen yoselin intervention 1 goal intervention scheduled/document ed in this visit Goals Goal [...] oral intake to be met by 08/20/23 Usp Goals Patient will retuirn demonstrate oral/pharyngeal/laryngeal exercises [...] met by 09/06/23 ST DM DYSPHAGIA No 1. Goal met 2. safe swallow strategies GOAL MET 3. Anticipating met next visit with visual aids and daugher cues Speech Therapy Evaluation Description: After assessing the patient and discussing the patient's goals the following were identified: Patient Centered Usp Goal: Get rid of this tube. Target Date: by 08/17/23 (date) SPEECH THERAPY EVALUATION No ST Short-Term Memory Description: Short Term Goal Patient will complete short-term memory tasks utilizing trained internal and/or external memory strategies/compensatory aides with 70 % accuracy with moderate visual/verbal cues in order to improve safety and independence in the home. To be met by 08/20/23 Fire Captain Goal Patient will complete short-term memory tasks [...] Skilled intervention targeting swallowing dysfunction included: ST trained and facilitated Home Exercise Program (HEP) of pharyngocise. Pt and daughter were trained t HEPhat needs to completed as instructed daily and also consume his liquids using his safe swallow strategies. ST educated that Pt only has 9 CA treatments left and that after he recovers from treatment (if any mucocitis or irritation) daughter should schedule Modified Barium Swallow Study (MBSS) for then. ST provided centralized scheduling phone number as they already have the MD order for Modified Barium Swallow Study (MBSS). Pt appears very unmotivated, he reports he is doing his Effortful swallows but all other pharyngocise exercises he never remembers. ST posted a sign/memory aid of pharyngocies HEP on his wall with Pt now able to teachback. Speech Therapy General (Order Only) Description: ST completed reassessment to add memory to ST plan of care. The [facility] Mental Status Exam (SLUMS) was used to screen for cognition. Scores at/above 27 are considered WNL when compared to peers with same level of education. Patient's score of 8/30 correlated to Dementia rating and severe cognitive impairment. Errors included tasks related to attention, memory and problemsolving. Cognitive Linguistic Quick Test (CLQT) Clock Drawin MODERATE (7-8) About Clock drawing test: the clock drawing test assesses short term memory, understanding of verbal instructions, spatial orientation, abstract thinking, planning, concentration, executive and visuospatial skills. Since beginning cancer treatment Pt reports he is having difficulty with his memory. Pt stated, My memory is so bad, it's so frustrating. ST also to target memory skills via training in internal/external compensatory strategies/memory aids, graduated therapeutic tasks, fading cues and multi modal teaching techniques. Clinical findings: History: Pt is a 63 y.o. 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 PEG placed 04/07/23. Pt is being treated by Dr. Zayas at [facility] with JAVA DEVELOPMENT MANAGER. Pt was referred to ST for dysphagia. [facility] ST bedside swallow evaluation: The Mora Assessment of Swallowing Ability Cancer (MASA-C) was utilized to assess the patient's overall swallowing function. Auditory Comprehension: 5 within normal limits Chest Status: 8-sputum in the airway Neck Palpation: 4- Definitely increased density and firmness Mouth Openin- 16-30 mm Taste: 5- WNL Smell: 5- WNL Current Diet: 1- Tube dependent Dysarthria: 3-speech intelligible but obvious defects Oral Mucous Membrane: 10- WNL Saliva: 8- Mild mouth dryness, slightly thicker/stringy saliva but not altering feeding behavior Lip Seal: 3-unilaterally weak/poor maintenance Tongue Movement: 4-minimal movement Tongue Strength: 2-gross weakness Tongue Coordination: 2-no movement/unable to assess Oral Prep: 2-unable to assess Weight Loss: 2- Significant > 10% total body weight Palate: 8-slight asymmetry Bolus Clearance: 8-significant clearance/minimal residue present Oral Transit: 6-delayed >5 seconds Voluntary Cough: 10-no deficits noted Voice: 10-no deficits noted Trach: 10-no trach Pharyngeal Phase: 5-pooling/gurgling/incom plete elevation Pharyngeal Response: 5-cough before/during/after the swallow MASA-C Score: 130/200 MASA-C Dysphagia Severity Score: PROFOUND <154 MASA-C Aspiration Risk Score: SEVERE <140 Oral Motor Examination: Labial: MODERATE Lingual: SEVERE (lingual neuropathy- lingual deviation, atrophy) Buccal: Moderate Dentition: edentulous Oral mucosa: pink, min report of occasional dry mouth Velar Elevation: unable to visualize due to trismus Oral opening deviation to R Noted s/s of trismus with Pt Maximum Interincisal Opening/ROM of ~21mm (moderate impairment). Norms for Maximum Intercisal Opening/ROM range from 40mm-60mm. Patient demonstrated ability to communicate at conversation level with mild dysarthria. Clinical Swallow Examination: Patient level of participation/need for assist with procedure: self fed Positioning: upright ?? Liquid/Solid Trials: ?? Oral Phase Characteristics: intact labial seal and residue collection on oral structures ?? Pharyngeal phase characteristics: suspected pharyngeal impairment, appearance of prolonged transition between oral and pharyngeal phase, appearance of consistent laryngeal elevation, immediate cough response, reflexive cough response, reflexive repetitive swallows to clear, frequent throat clearing, and wet vocal quality. Cough appeared productive. The Eating Assessment Tool (EAT-10) Patient rates overall swallow problem to be: moderate Eating Assessment Tool (EAT-10): is a patient self rating scale of swallowing difficulty 1. My swallowing problem has caused me to lose weight = 4; severe problem 2. My swallowing problem interferes with my ability to go out for meals = 4; severe problem 3. Swallowing liquids takes extra effort = 4; severe problem 4. Swallowing solids takes extra effort = 4; severe problem 5. Swallowing pills takes extra effort = 3; moderate problem 6. Swallowing is painful = 1; minimal problem 7. The pleasure of eating is affected by my swallowing = 4; severe problem 8. When I swallow food sticks in my throat = 4; severe problem 9. I cough when I eat = 2; mild problem 10. Swallowing is stressful = 3; moderate problem Rating 33/40 (above 3 is abnormal) Functional Oral Intake Scale (FOIS is a 7 point rating scale. Level 1 being no oral intake fully tube dependent and 7 being 7 total oral intake with no restrictions) Pt is a FOIS -2 Tube dependent with minimal/inconsistent oral intake Diet Recommendations: PEG for nutrition, occassional puree for comfort pleasure following safe swallow strategies Liquids Recommendations: thin liquids for comfort/pleasure Meds Delivery Recommendations: As tolerated RECOMMENDATIONS: The following compensatory strategies should be part of the patient's therapy/management plan to reduce risk of aspiration and alleviate dysphagia: 1. Aspiration precautions 2. Upright for all oral intake 3. Slow rate of intake 4. Small sips/bites 5. Alternate consistencies to improve oral/pharyngeal clearance 6. Multiple swallow to clear 7. Effortful Swallow 8. Frequent oral care (even when edentulous) to reduce risk of developing aspiration pneumonia Therapy Focus: myofascial release, oral motor exercise, trismus interventions, swallow strengthening exercise, training aspiration precautions, and training in safe swallow strategies. Other contributing issues: Pt is receiving JAVA DEVELOPMENT MANAGER but states that he misses many visits due to not feeling well and transportation issues. ST to request repeat Modified Barium Swallow Study (MBSS). Pulse Oximetry PRN for shortness of breath and assessment of respiratory status. Problem:SPEECH THERAPY EVALUATION Goal:Speech Therapy Evaluation Completed ST Short-Term Memory Description: Instruct on short-term memory strategies. Problem:ST DM COGNITION Goal:ST Short-Term Memory Completed Skilled intervention targeting cognitive linguistic decline targeted the area of memory. ST developed, implemented, and trained EXTERNAL memory aids to assist recall of safety information for swallowing, pharyngocise HEP, and functional information. Patient completed short-term memory tasks utilizing external memory strategies/compensat ory aides with 85 % accuracy with minimal visual/verbal cues. Skilled interventions utilized in this session include: [ X ] Fading cueing hierarchy [ X ] Errorless learning [ X ] Verbal cues [ X ] External Memory Aids [ X ] Functional/relevant memory aids to increase activity/participati on/safety [ X ] Verbal reinforcement/feedba ck [ X ] Training compensatory strategies [ X ] Caregiver training to promote carryover Caregiver training provided: YES documented in this encounter Care Teams Insole And Outsole Splitter Relationship Specialty Start Date End Date Jorge Espinosa PA [address] [place] [address] PCP - General Physician Sr. Operations Manager 04/11/23 Antwon Mirza MD [address] [place] [address] Consulting Physician Medical Oncology 05/04/23 Roland Patel MD [address] [place] [address] Consulting Physician Radiation Oncology 05/04/23 documented as of this encounter
--- OUTSIDE RECORDS SUMMARY | 2024-02-15 11:27 | XMS_ITS | Encounter Summary ---
Author Organization [facility] Address [address] [facility] [place] [address] Phone Care Team Providers Care Treating Plant Supervisor Name Role Phone Jorge Espinosa Primary Care Provider Antwon Mirza MD Unavailable [phone] Roland Patel MD Unavailable Encounter Details Date Type Department Care Team (Late st Contact Info) Description 08/23/2023 Telephone [facility] Oncology Services [address] [place] [address] Roland Patel MD [address] [place] [address] Social History Tobacco Use Types Packs/Day Years Used Date Smoking Tobacco: Every Day Cigarettes 0.5 50.9 Started: 1974 Smokeless Tobacco: Never Alcohol Use Standard Drinks/Week Comments Yes 0 (1 standard drink = 0.6 oz pure alcohol) Occasionally, never a regular drinker Sex and Gender Information Value Date Recorded Sex Assigned at Not on file Legal Sex Male 3:34 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 I let her know that the department was open and also that Aleksey had missed over a week of treatments. She said the past two Mondayswere her fault due to the rides not being set up. She said she would call the transportation company to make sure they were still running today due to the weather and would call us back if Aleksey wasn't going to be here. documented in this encounter Plan of Treatment Not on file documented as of this encounter Visit Diagnoses Not on filedocumented in this encounter Care Teams Treating Plant Supervisor Relationship Specialty Start Date End Date Jorge Espinosa PA [address] [place] [address] PCP - General Physician Homeowner Association Manager 04/11/23 Antwon Mirza MD [address] [place] [address] Consulting Physician Medical Oncology 05/04/23 Roland Patel MD [address] [place] [address] Consulting Physician Radiation Oncology 05/04/23 documented as of this encounter
--- OUTSIDE RECORDS SUMMARY | 2024-02-15 11:27 | XMS_ITS | Encounter Summary ---
Author Organization [facility] Address [address] [facility] [place] [address] Phone Care Team Providers Care Stripper Opaquer Name Role Phone Jorge Espinosa Primary Care Provider [phone] Antwon Mirza MD Unavailable [phone] Roland Patel MD Unavailable [phone] Reason for Visit * Auth/Cert (Routine) Specialty Diagnoses / Procedures Referred By Contac t Referred To Contact Referral ID Status Reason Start Date Expiration Date Visits Re quested Visits Authorized [id number] Encounter Details Date Type Department Care Team (Late st Contact Info) Description 08/18/2023 3:45 PM CDT [facility] [address] [place] [address] Daniela Rodriguez, PLANTING SUPERVISOR-SPEECH LANGUAGE PATHOLOGIST [place] PLANTING SUPERVISOR - OASIS DISCHARGE Social History Tobacco Use Types Packs/Day Years Used Date Smoking Tobacco: Every Day Cigarettes 0.5 50.9 Started: 1974 Smokeless Tobacco: Never Alcohol Use Standard Drinks/Week Comments Yes 0 (1 standard drink = 0.6 oz pure alcohol) Occasionally, never a regular drinker Sex and Gender Information Value Date Recorded Sex Assigned at Not on file 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 Sex Male 3:34 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 Gender Identity Not on file Sexual Orientation Not on file documented as of this encounter Last Filed Vital Signs Vital Sign Reading Time Taken Comments Blood Pressure 142/68 08/18/2023 4:37 PM CDT Pulse - - Temperature 36.6 ??C (97.8 ??F) 08/18/2023 4:37 [...] - Care Plan Visit Details Visit Type -PLANTING SUPERVISOR - ÁNGEL COLIN Discipline -Speech Language Pathology Problems Problem Description Start Date Status Goals Interve ntions ST DM DYSPHAGIA Disciplines: Speech Language Pathology 07/21/2023 Active 1 goal linked to scheduled/documented intervention ST DM COGNITION Disciplines: Speech Language Pathology 07/28/2023 Active 1 goal linked to scheduled/documented intervention Goals Goal Associated Problem Outcome Goal Met? Visit Notes ST Swallowing Description: Short Term Goal Patient [...] oral intake to be met by 08/20/23 Tax Commissioner Goals Patient will retuirn demonstrate oral/pharyngeal/larynge al exercises including: trismus AROM/PROM, effortful swallow, Ayden [...] be met by 09/06/23 ST DM DYSPHAGIA Therapy: Goal partially met No 1. Precautions: GOAL MET 2. Safe swallow strategies: GOAL MET LTG: Partial Goal met EAT 10 did not change. Pt need sto finish 9 CA treatments. Then repeat MBSS at that time ST Short-Term Memory Description: Short Term Goal Patient will complete short-term memory tasks utilizing trained internal and/or external memory strategies/compensatory aides with 70 % accuracy with moderate visual/verbal cues in order to improve safety and independence in the home. To be met by 08/20/23 Tax Commissioner Goal Patient will complete short-term memory tasks utilizing trained internal and/or external memory strategies/compensatory aides with 80 % accuracy with min visual/verbal cues in order to improve safety and independence in the home. To be met by: 09/06/23 ST DM COGNITION Therapy: Goal met Yes 1. GOAL MET 2. GOAL MET documented in this encounter Care Teams Stripper Opaquer Relationship Specialty Start Date End Date Jorge Espinosa PA [address] [place] [address] PCP - General Physician Manager Of Pmo 04/11/23 Antwon Mirza MD [address] [place] [address] Consulting Physician Medical Oncology 05/04/23 Roland Patel MD [address] [place] [address] Consulting Physician Radiation Oncology 05/04/23 documented as of this encounter
--- OUTSIDE RECORDS SUMMARY | 2024-02-15 11:27 | XMS_ITS | Encounter Summary ---
Author Organization [facility] Address [address] [facility] [place] [address] Phone Care Team Providers Care Engine Head Repairer Name Role Phone Jorge Espinosa Primary Care Provider Antwon Mirza MD Unavailable [phone] Roland Patel MD Unavailable [phone] Encounter Details Date Type Department Care Team (Latest Contact Info) Description 08/12/2023 12:45 PM CDT Clinical Support [facility] Oncology Services [address] [place] [address] Roland Patel MD [address] [place] [address] Discharge Disposition: Discharged to home [...] on file Legal Sex Male 3:34 PM CAP INSPECTOR Gender Identity Not on file Sexual Orientation Not on file documented as of this encounter Plan of Treatment Not on file documented as of this encounter Procedures Procedure Name Priority Date/Time Associated Diagnosis Comments RAD ONC ARIA SESSION SUMMARY Routine 08/12/2023 1:34 PM CDT documented in this encounter Results * RAD ONC ARIA SESSION SUMMARY (08/12/2023 1:34 PM CDT) Course ID C1 ARIA RO MODEL Course Intent Curative w/chemo ARIA RO MODEL Course Start Date 05/06/2023 11:27 AM ARIA RO MODEL Session Number 27 ARIA RO MODEL Course End Date 05/12/2023 9:16 AM ARIA RO MODEL Course Last Treatment Date 08/12/2023 1:36 PM ARIA RO MODEL Course Elapsed Days 92 ARIA RO MODEL Reference Point ID [id number] ARIA RO MODEL Reference Point Dosage Given to Date [id number] Gy ARIA RO MODEL Reference Point Session Dosage Given [id number] Gy ARIA RO MODEL Plan ID [id number] ARIA RO MODEL Plan Name Oropharynx & Nodes_70Gy ARIA RO MODEL Energy 6X ARIA RO MODEL Plan Fractions Treated to Date 27 ARIA RO MODEL Plan Total Fractions Prescribed 35 ARIA RO MODEL Plan Prescribed Dose Per Fraction 2 Gy ARIA RO MODEL Plan Total Prescribed Dose 7,000 cGy ARIA RO MODEL Plan Primary Reference Point [id number] ARIA RO MODEL 08/12/2023 1:34 PM CDT us Unknown Provider RADIATION ONCOLOGY ORDERABLES F inal Result Performing Organization Address City/State/[facility] Co de Phone Number ARIA RO MODEL [address] [place] [address] documented in this encounter Visit Diagnoses Not on filedocumented in this encounter Care Teams Engine Head Repairer Relationship Specialty Start Date End Date Jorge Espinosa PA [address] [place] [address] PCP - General Physician Construction Economist 04/11/23 Antwon Mirza MD [address] [place] [address] Consulting Physician Medical Oncology 05/04/23 Roland Patel MD [address] [place] [address] Consulting Physician Radiation Oncology 05/04/23 documented as of this encounter
--- OUTSIDE RECORDS SUMMARY | 2024-02-15 11:28 | XMS_ITS | Encounter Summary ---
Author Organization [facility] Address [address] [facility] [place] [address] Phone Care Team Providers Care Sketch Artist Name Role Phone Jorge Espinosa Primary Care Provider [phone] Antwon Mirza MD Unavailable [phone] Roland Patel MD Unavailable [phone] Reason for Visit * Auth/Cert (Routine) Specialty Diagnoses / Procedures Referred By Contac t Referred To Contact Referral ID Status Reason Start Date Expiration Date Visits Re quested Visits Authorized [id number] Encounter Details Date Type Department Care Team (Latest Contact Info) Description 07/18/2023 10:30 AM CDT Home Care Visit [facility] [address] [place] [address] Joaquin Dorsey, RN [place] SN - PRIORITY VISIT Social History Tobacco Use Types Packs/Day Years Used Date Smoking Tobacco: Every Day Cigarettes 0.5 50.9 Started: 1974 Smokeless Tobacco: Never Alcohol Use Standard Drinks/Week Comments Yes 0 (1 standard drink = 0.6 oz pure alcohol) Occasionally, never a regular drinker Sex and Gender Information Value Date Recorded Sex Assigned at Not on file Legal Sex Male 3:34 PM CLINICAL QUALITY ASSURANCE ASSOCIATE Gender Identity Not on file Sexual Orientation Not on file documented as of this encounter Last Filed Vital Signs Vital Sign Reading Time Taken Comments Blood Pressure 132/68 07/18/2023 10:51 AM CDT Pulse 90 07/18/2023 10:51 AM CDT Temperature 37.1 ??C (98.7 ??F) 07/18/2023 10:51 AM C DT Respiratory Rate 20 07/18/2023 10:51 AM CDT Oxygen Saturation 95% 07/18/2023 10:51 AM CDT Inhaled Oxygen Concentration - - Weight - - Height - - Body Mass Index - - documented in this encounter Plan of Treatment Not on file documented as of this encounter Visit Diagnoses Not on filedocumented in this encounter Home Health Visit - Care Plan Visit Details Visit Type -SN - Priority Vi sit Discipline -Mcfp Problems Problem Description Start Date Status Goals Interve ntions CANCER Disciplines: Mcfp Cancer 07/09/2023 Active 1 goal linked to scheduled/documente d intervention 1 goal intervention scheduled/documented in this visit Goals Goal Associated Problem Outcome Goal Met? Visit Notes Cancer Description: Patient will demonstrate effective level cancer related symptom and pain control. Target date: by 08/27/23 (date) CANCER No Interventions Intervention Associated Problem/Goal Status Variance Visit Notes Cancer (O) Description: Assess for cancer related symptoms and pain. Provide education on techniques to mitigate/control cancer symptoms. Problem:CANCER Goal:Cancer Scheduled documented in this encounter Care Teams Sketch Artist Relationship Specialty Start Date End Date Jorge Espinosa PA [address] [place] [address] PCP - General Physician Stogie Packer 04/11/23 Antwon Mirza MD [address] [place] [address] Consulting Physician Medical Oncology 05/04/23 Roland Patel MD [address] [place] [address] Consulting Physician Radiation Oncology 05/04/23 documented as of this encounter
--- OUTSIDE RECORDS SUMMARY | 2024-02-15 11:28 | XMS_ITS | Encounter Summary ---
Author Organization [facility] Address [address] [facility] [place] [address] Phone Care Team Providers Care Elementary Classroom Teacher Name Role Phone Jorge Espinosa Primary Care Provider [phone] Antwon Mirza MD Unavailable [phone] Roland Patel MD Unavailable [phone] Reason for Visit * Auth/Cert (Routine) Specialty Diagnoses / Procedures Referred By Contac t Referred To Contact Referral ID Status Reason Start Date Expiration Date Visits Re quested Visits Authorized [id number] Encounter Details Date Type Department Care Team (Late st Contact Info) Description 07/22/2023 9:00 AM CDT [facility] [address] [place] [address] Nadiya Sparks PTA PT - HOME VISIT Social History Tobacco Use Types Packs/Day Years Used Date Smoking Tobacco: Every Day Cigarettes 0.5 50.9 Started: 1974 Smokeless Tobacco: Never Alcohol Use Standard Drinks/Week Comments Yes 0 (1 standard drink = 0.6 oz pure alcohol) Occasionally, never a regular drinker Sex and Gender Information Value Date Recorded Sex Assigned at Not on file 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 Gender Identity Not on file Sexual Orientation Not on file documented as of this encounter Last Filed Vital Signs Vital Sign Reading Time Taken Comments Blood Pressure 133/72 07/22/2023 8:51 AM CDT Pulse 76 07/22/2023 8:51 AM CDT Temperature 36.3 ??C (97.4 ??F) 07/22/2023 8:51 AM CD T Respiratory Rate 20 07/22/2023 8:51 AM CDT Oxygen Saturation 95% 07/22/2023 8:51 AM CDT Inhaled Oxygen Concentration - - Weight - - Height - - Body Mass Index - - documented in this encounter Plan of Treatment Not on file documented as of this encounter Visit Diagnoses Not on filedocumented in this encounter Home Health Visit - Care Plan Visit Details Visit Type -PT - HOME VISIT Discipline -Physical Therapy Problems Problem Description Start Date Status Goals Interve ntions PT COMPREHENSIVE Disciplines: Physical Therapy 07/19/2023 Active 1 goal linked to scheduled/documente d intervention 1 goal intervention scheduled/documente d in this visit Goals Goal Associated Problem Outcome Goal Met? Visit Notes PT HEP Description: Custodial Goal: Patient and/or caregiver will independently with final HEP of strengthening, balance training, conditioning and core strengthening in order to continue making strength gains , improving balance and improving activity tolerance after discharge from home care. To be met by 08-05-23. PT COMPREHENSIVE No Interventions Intervention Associated Problem/Goal Status Variance Visit Notes PT HEP Progression Description: Instruct on home exercise program. Progress as tolerated. Problem:PT COMPREHENSIVE Goal:PT HEP Completed Home Exercise Program issued/performed long sitting in bed performing B L/E's AROM x 5-10 reps consisting of ankle DF/PF, bridging, hip flexion/abduction/kne e extension and ankle DF/PF with slow/functional ROM demonstrated.. Leg fatigue reported following exercises Instruction provided to Patient. Patient given handout for HEP of L/E ROM with instructions to perform 1 x a day 5-10 reps as tolerated. Response verbalize understanding, return demonstration and ongoing. documented in this encounter Care Teams Elementary Classroom Teacher Relationship Specialty Start Date End Date Jorge Espinosa PA [address] [place] [address] PCP - General Physician Representative Phlebotomy Services 04/11/23 Antwon Mirza MD [address] [place] [address] Consulting Physician Medical Oncology 05/04/23 Roland Patel MD [address] [place] [address] Consulting Physician Radiation Oncology 05/04/23 documented as of this encounter
--- OUTSIDE RECORDS SUMMARY | 2024-02-15 11:28 | XMS_ITS | Encounter Summary ---
Author Organization [facility] Address [address] [facility] [place] [address] Phone Care Team Providers Care Family Therapist Name Role Phone Jorge Espinosa Primary Care Provider [phone] Antwon Mirza MD Unavailable [phone] Roland Patel MD Unavailable [phone] Reason for Visit * Auth/Cert (Routine) Specialty Diagnoses / Procedures Referred By Contac t Referred To Contact Referral ID Status Reason Start Date Expiration Date Visits Re quested Visits Authorized [id number] Encounter Details Date Type Department Care Team (Late st Contact Info) Description 08/04/2023 2:15 PM CDT Home Care Visit [facility] [address] [place] [address] Daniela Rodriguez, LIQUID LOADER-SPEECH LANGUAGE PATHOLOGIST [place] LIQUID LOADER - HOME VISIT Social History Tobacco Use Types Packs/Day Years Used Date Smoking Tobacco: Every Day Cigarettes 0.5 50.9 Started: 1973 Smokeless Tobacco: Never Alcohol Use Standard Drinks/Week Comments Yes 0 (1 standard drink = 0.6 oz pure alcohol) Occasionally, never a regular drinker Sex and Gender Information Value Date Recorded Sex Assigned at Not on file 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 Gender Identity Not on file Sexual Orientation Not on file documented as of this encounter Last Filed Vital Signs Vital Sign Reading Time Taken Comments Blood Pressure 138/68 08/04/2023 2:36 PM CDT Pulse 67 08/04/2023 2:36 PM CDT Temperature 36.7 ??C (98.1 ??F) 08/04/2023 2:36 PM CD T Respiratory Rate - - Oxygen Saturation 92% 08/04/2023 2:36 PM CDT Inhaled Oxygen Concentration - - Weight - - Height - - Body Mass Index - - documented in this encounter Plan of Treatment Not on file documented as of this encounter Visit Diagnoses Not on filedocumented in this encounter Home Health Visit - Care Plan Visit Details Visit Type -LIQUID LOADER - HOME VISIT Discipline -Speech Language Pathology Problems Problem Description Start Date Status Goals Interve ntions FALL PREVENTION (O) Disciplines: SN, PT, OT, LIQUID LOADER, HCA, BI TECHNICAL LEAD, RT 07/09/2023 Active 1 goal linked to [...] understanding of identified fall risk based on [facility] Fall Risk assessment and methods to prevent [...] oral intake to be met by 08/20/23 Manufacturing Technician Goals Patient will retuirn demonstrate oral/pharyngeal/laryngeal exercises [...] met by 09/06/23 ST DM DYSPHAGIA No Speech Therapy Evaluation Description: After assessing the patient and discussing the patient's goals the following were identified: Patient Centered Fdc Goal: Get rid of this tube. Target Date: by 08/17/23 (date) SPEECH THERAPY EVALUATION No Interventions Intervention Associated Problem/Goal Status Variance Visit Notes Fall (Order Only) Description: Shared intervention applicable to all disciplines with a visit frequency order.Patient meets criteria for Fall Risk based on [facility]-10 score. Instruct patient/caregiver on fall prevention measures. Problem:FALL PREVENTION (O) Goal:Fall Prevention Completed All Vital Sign Parameters (Order Only) Description: Standard [...] Skilled intervention targeting swallowing dysfunction included: ST attempted swallow exercie. Pt was laying down and did not want to get up and complete diet trials or swallow exercises. Pt reported not feeling good. ST trained safe swallow strategies verbally with Pt able to teachback. ST facilitated trismus range of motion jaw exercises with Pt completing owth MIN cues. Session ended earily per pt request. Speech Therapy General (Order Only) Description: ST completed reassessment to add memory to ST plan of care. The [facility] Mental Status Exam (UMS) was used to screen for cognition. Scores [...] is being treated by Dr. Zayas at [facility] with HAND BRIM IRONER. Pt was referred to ST for dysphagia. [facility] bedside swallow evaluation: The Mora Assessment of [...] strategies. Other contributing issues: Pt is receiving HAND BRIM IRONER but states that he misses many visits due to not feeling well and transportation issues. ST to request repeat Modified Barium Swallow Study (MBSS). Pulse Oximetry PRN for shortness of breath and assessment of respiratory status. Problem:SPEECH THERAPY EVALUATION Goal:Speech Therapy Evaluation Completed documented in this encounter Care Teams Family Therapist Relationship Specialty Start Date End Date Jorge Espinosa PA [address] [place] [address] PCP - General Physician Gold Assayer 04/11/23 Antwon Mirza MD [address] [place] [address] Consulting Physician Medical Oncology 05/04/23 Roland Patel MD [address] [place] [address] Consulting Physician Radiation Oncology 05/04/23 documented as of this encounter
--- OUTSIDE RECORDS SUMMARY | 2024-02-15 11:28 | XMS_ITS | Encounter Summary ---
Author Organization [facility] Address [address] [facility] 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 Gender Identity Not on file Sexual Orientation Not on file documented as of this encounter Plan of Treatment Not on file documented as of this encounter Procedures Procedure Name Priority Date/Time Associated Diagnosis Comments RAD ONC ARIA SESSION SUMMARY Routine 07/12/2023 1:16 PM CDT documented in this encounter Results * RAD ONC ARIA SESSION SUMMARY (07/12/2023 1:16 PM CDT) Course ID C1 ARIA RO MODEL Course Intent Curative w/chemo ARIA RO MODEL Course Start Date 05/06/2023 11:27 AM ARIA RO MODEL Session Number 25 ARIA RO MODEL Course End Date 05/12/2023 9:16 AM ARIA RO MODEL Course Last Treatment Date 07/12/2023 1:18 PM ARIA RO MODEL Course Elapsed Days 61 ARIA RO MODEL Reference Point ID [id number] ARIA RO MODEL Reference Point Dosage Given to Date [id number] Gy ARIA RO MODEL Reference Point Session Dosage Given [id number] Gy ARIA RO MODEL Plan ID [id number] ARIA RO MODEL Plan Name Oropharynx & Nodes_70Gy ARIA RO MODEL Energy 6X ARIA RO MODEL Plan Fractions Treated to Date 25 ARIA RO MODEL Plan Total Fractions Prescribed 35 ARIA RO MODEL Plan Prescribed Dose Per Fraction 2 Gy ARIA RO MODEL Plan Total Prescribed Dose 7,000 cGy ARIA RO MODEL Plan Primary Reference Point HN_PRP ARIA RO MODEL 07/12/2023 1:16 PM CDT us Unknown Provider RADIATION ONCOLOGY ORDERABLES F inal Result Performing Organization Address City/State/[facility] Co de Phone Number ARIA RO MODEL [address] [place] [address] documented in this encounter Visit Diagnoses Not on filedocumented in this encounter Care Teams Two Way Radio Installer Relationship Specialty Start Date End Date Jorge Espinosa PA [address] [place] [address] PCP - General Physician Geoscientist 04/11/23 Antwon Mirza MD [address] [place] [address] Consulting Physician Medical Oncology 05/04/23 Roland Patel MD [address] [place] [address] Consulting Physician Radiation Oncology 05/04/23 documented as of this encounter
--- OUTSIDE RECORDS SUMMARY | 2024-02-15 11:28 | XMS_ITS | Encounter Summary ---
Author Organization [facility] Address [address] [facility] [place] [address] Phone Care Team Providers Care Tmd Teacher Name Role Phone Jorge Espinosa Primary Care Provider [phone] Antwon Mirza MD Unavailable [phone] Roland Patel MD Unavailable [phone] Reason for Visit * Auth/Cert (Routine) Specialty Diagnoses / Procedures Referred By Contac t Referred To Contact Referral ID Status Reason Start Date Expiration Date Visits Re quested Visits Authorized [id number] Encounter Details Date Type Department Care Team (Late st Contact Info) Description 08/02/2023 2:45 PM CDT [facility] [address] [place] [address] Daniela Rodriguez, MOISTURE MACHINE TENDER-SPEECH LANGUAGE PATHOLOGIST [place] MOISTURE MACHINE TENDER - HOME VISIT Social History Tobacco Use Types Packs/Day Years Used Date Smoking Tobacco: Every Day Cigarettes 0.5 50.9 Started: 1974 Smokeless Tobacco: Never Alcohol Use Standard Drinks/Week Comments Yes 0 (1 standard drink = 0.6 oz pure alcohol) Occasionally, never a regular drinker Sex and Gender Information Value Date Recorded Sex Assigned at Not on file 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 Gender Identity Not on file Sexual Orientation Not on file documented as of this encounter Last Filed Vital Signs Vital Sign Reading Time Taken Comments Blood Pressure 138/67 08/02/2023 3:31 PM CDT Pulse 68 08/02/2023 3:31 PM CDT Temperature 36.7 ??C (98.1 ??F) 08/02/2023 3:31 PM CD T Respiratory Rate 18 08/02/2023 3:31 PM CDT Oxygen Saturation 97% 08/02/2023 3:31 PM CDT Inhaled Oxygen Concentration - - Weight - - Height - - Body Mass Index - - documented in this encounter Plan of Treatment Not on file documented as of this encounter Visit Diagnoses Not on filedocumented in this encounter Home Health Visit - Care Plan Visit Details Visit Type -MOISTURE MACHINE TENDER - HOME VISIT Discipline -Speech Language Pathology Problems Problem Description Start Date Status Goals Interve ntions FALL PREVENTION (O) Disciplines: SN, PT, OT, MOISTURE MACHINE TENDER, HCA, TRUCK DRIVER RUBBISH COLLECTOR, RT 07/09/2023 Active 1 goal linked to [...] oral intake to be met by 08/20/23 Centrifuge Separator Tender Goals Patient will retuirn demonstrate oral/pharyngeal/laryngeal exercises [...] the home. To be met by 08/20/23 Centrifuge Separator Tender Goal Patient will complete short-term memory tasks [...] strategies. Problem:ST DM DYSPHAGIA Goal:ST Swallowing Completed Patient demonstrated implementation of trained safe swallowing compensatory strategies including: double/dry swallow, slow rate and small single bites/sipswith 75% accuracy with moderate visual/verbal cues. ST facilitated effortful swallow exercises with MOD faded to MIN cues. Pt appeared to be compleeting Home Exercise Program (HEP) for effortful swallows. ST facilitated AROM jaw exercises with MOD cues for model. Skilled therapeutic techniques utilized in this session include: [ X ] Fading cueing hierarchy [ X ] Verbal cues [ X ] Visual models/cues [ X ] Repetition [ X ] Verbal reinforcement/feedbac k [ X ] Ongoing assessment and analysis of Pt performance/progress [ X ] HEP training ST Short-Term Memory Description: Instruct on short-term memory strategies. Problem:ST DM COGNITION Goal:ST Short-Term Memory Completed Skilled intervention targeting cognitive linguistic decline targeted the area of memory. ST developed, implemented, and trained EXTERNAL memory aids to assist recall of safety information. Pt utilized memory aids during visit with 65% accuracy and MOD cues. Skilled interventions utilized in this session include: [ X ] Fading cueing hierarchy [ X ] Errorless learning [ X ] Verbal cues [ X ] Visual aids [ X ] External Memory Aids [ X ] Verbal reinforcement/feedbac k [ X ] Training compensatory strategies documented in this encounter Care Teams Tmd Teacher Relationship Specialty Start Date End Date Jorge Espinosa PA [address] [place] [address] PCP - General Physician Internal Wholesaler 04/11/23 Antwon Mirza MD [address] [place] [address] Consulting Physician Medical Oncology 05/04/23 Roland Patel MD [address] [place] [address] Consulting Physician Radiation Oncology 05/04/23 documented as of this encounter
--- OUTSIDE RECORDS SUMMARY | 2024-02-15 11:28 | XMS_ITS | Encounter Summary ---
Author Organization [facility] Address [address] [facility] [place] [address] Phone Care Team Providers Care Shop Supervisor Name Role Phone Jorge Espinosa Primary Care Provider [phone] Antwon Mirza MD Unavailable [phone] Roland Patel MD Unavailable [phone] Reason for Visit * Auth/Cert (Routine) Specialty Diagnoses / Procedures Referred By Contac t Referred To Contact Referral ID Status Reason Start Date Expiration Date Visits Re quested Visits Authorized [id number] Encounter Details Date Type Department Care Team (Latest Contact Info) Description 07/29/2023 9:30 AM CDT Home Care Visit [facility] [address] [place] [address] Joaquin Dorsey, RN [place] SN - DISCIPLINE DISCHARGE Social History Tobacco Use Types Packs/Day Years Used Date Smoking Tobacco: Every Day Cigarettes 0.5 50.9 Started: 1974 Smokeless Tobacco: Never Alcohol Use Standard Drinks/Week Comments Yes 0 (1 standard drink = 0.6 oz pure alcohol) Occasionally, never a regular drinker Sex and Gender Information Value Date Recorded Sex Assigned at Not on file 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 Gender Identity Not on file Sexual Orientation Not on file documented as of this encounter Last Filed Vital Signs Vital Sign Reading Time Taken Comments Blood Pressure 140/70 07/29/2023 12:00 AM CDT Pulse 77 07/29/2023 12:00 AM CDT Temperature 36.4 ??C (97.6 ??F) 07/29/2023 12:00 AM C DT Respiratory Rate 20 07/29/2023 12:00 AM CDT Oxygen Saturation 97% 07/29/2023 12:00 AM CDT Inhaled Oxygen Concentration - - Weight - - Height - - Body Mass Index - - documented in this encounter Plan of Treatment Not on file documented as of this encounter Visit Diagnoses Not on filedocumented in this encounter Home Health Visit - Care Plan Visit Details Visit Type -SN - DISCIPLINE DISCHARGE Discipline -Alf Problems Problem Description Start Date Status Goals Interve ntions CANCER Disciplines: Alf Cancer 07/09/2023 Active 1 goal linked to scheduled/documen yoselin intervention 1 goal intervention scheduled/document ed in this visit PAIN-MANAGEMENT /EDUCATION Disciplines: Skilled Clinicians 07/09/2023 Active 1 goal linked to scheduled/documen yoselin intervention 1 goal intervention scheduled/document ed in this visit SN GENERAL ORDERS Disciplines: Alf SN General Orders 07/09/2023 Active 1 goal linked to scheduled/documen yoselin intervention 1 goal intervention scheduled/document ed in this visit DIET EDUCATION Disciplines: Alf Diet Education 07/09/2023 Active 1 goal linked to scheduled/documen yoselin intervention 1 goal intervention scheduled/document ed in this visit HYPERTENSION ORDERS Disciplines: Alf Hypertension Orders 07/14/2023 Active 1 goal linked to scheduled/documen yoselin intervention Goals Goal Associated Problem Outcome Goal Met? Visit Notes Cancer Description: Patient will demonstrate effective level cancer related symptom and pain control. Target date: by 08/27/23 (date) CANCER Outcome Achieved Yes Pain Management/Education Description: Shared goal applicable to all disciplines with visit frequency order. Patient's pain level will remain at an acceptable level of 3 or lower with current pain medications/interventi ons. Target date: by 08/27/23 (date) PAIN-MANAGEMENT/ED UCATION No SN General Description: After assessing the patient and discussing the patient's goals the following were identified: 1. Patient and Caregiver Shirley will demonstrate effective self-care management including understanding of ordered medication regimen, signs and symptoms to report, and recommended follow up with physician. Target date: by 07/28/23 (date) 2. Patient and Caregiver will verbalize understanding of medication regimen including name, actions, reason for use, evaluation of effectiveness, side effects, and administration instructions. Target date: by 07/28/23 (date). 3. Patient centered long-term goal Caregiver will be able to administer enteral feedings as ordered, care for PEG tube site and change dressing daily, resolution of cellulitis PEG site . Target date: by 08/27/23 SN GENERAL ORDERS Outcome Achieved Yes Diet Education Description: Patient will verbalize understanding of ordered diet Nutren enteral feeding per Peg tube, liquid diet per os. Target date: by 07/28/23 (date) DIET EDUCATION Outcome Achieved Yes daughter independnet Hypertension Description: Patient will demonstrate knowledge of Hypertension disease process, treatment goals and self-care management. Target date: by 08/07/23 (date) HYPERTENSION ORDERS Outcome Achieved Yes Interventions Intervention Associated Problem/Goal Status Variance Visit Notes Cancer (O) Description: Assess for cancer related symptoms and pain. Provide education on techniques to mitigate/control cancer symptoms. Problem:CANCER Goal:Cancer Scheduled Cancer management education provided: Infection prevention- wash hands, avoid crowds/sick people, do not share food/ utensils/ personal items, shower daily, avoid raw meat/eggs, wash vegetables, avoid pet waste, use gloves when gardening, get flu shot, Infection S/Sx- Fever 100.5 F (38 C) or higher, chills, cough, sore throat, ear pain, head/sinus pain, stiff neck, blood/ cloudy urine, pain/burning when urinating, skin rash/ wounds, signs of oral [place], swelling/redness anywhere , Stomatitis mgmt- water based rinse before and after meals/ at bedtime, limit floss, use water based lip moisturizer, avoid Vaseline with oxygen, avoid alcohol mouth rinse, monitor denture fit, clean teeth or dentures regularly, avoid smoking , Diet- encourage fluids, use a straw, increase protein, eat soft/ bland foods (cereal, pasta, cream soup, cream pie, eggs, pudding), eat/drink cold foods, avoid spicy/acidic/hard/cou rse/salty foods and alcohol and Radiation skin care- skin may dry, bleed or weep, wash hair/skin gently with mild soap, avoid scrubbing, pat dry, do not soak in bath, only use cream/ lotion recommended by doctor, report severe breakdown/pain/infect ion immediately Instruction provided to Patient. Response verbalize understanding Pain Management/Education (O) Description: Instruct patient/ caregiver on strategies to manage pain. Problem:PAIN-MANAGEME NT/EDUCATION Goal:Pain Management/Education pain managed well with current interventions Additional Disease Management (O) Description: SN to monitor for signs and symptoms of exacerbation or complications of Hypertension , Dysphagia, and Enteral Feeding. Problem:SN GENERAL ORDERS Goal:SN General Exacerbation/ complications noted at this visit: none Diet Teaching Description: Provide instruction on Enteral feeding by gravity bag method, diet. Problem:DIET EDUCATION Goal:Diet Education omidaghter independent documented in this encounter Care Teams Shop Supervisor Relationship Specialty Start Date End Date Jorge Espinosa PA [address] [place] [address] PCP - General Physician Collection Systems Technician 04/11/23 Antwon Mirza MD [address] [place] [address] Consulting Physician Medical Oncology 05/04/23 Roland Patel MD [address] [place] [address] Consulting Physician Radiation Oncology 05/04/23 documented as of this encounter
--- OUTSIDE RECORDS SUMMARY | 2024-02-15 11:28 | XMS_ITS | Encounter Summary ---
Author Organization [employer] Care Team Providers Care Roentgenology Teacher Name Role Phone Jorge Espinosa Primary Care Provider [phone] Antwon Mirza MD Unavailable [phone] Roland Patel MD Unavailable [phone] Encounter Details Date Type Department Care Team (Latest Contact Info) Description 07/12/2023 Travel Social History Tobacco Use Types Packs/Day Years Used Date Smoking Tobacco: Every Day Cigarettes 0.5 50.9 Started: 1974 Smokeless Tobacco: Never Alcohol Use Standard Drinks/Week Comments Yes 0 (1 standard drink = 0.6 oz pure alcohol) Occasionally, never a regular drinker Sex and Gender Information Value Date Recorded Sex Assigned at Not on file 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
--- OUTSIDE RECORDS SUMMARY | 2024-02-15 11:28 | XMS_ITS | Encounter Summary ---
Author Organization [facility] Address [address] [facility] [place] [address] Phone Care Team Providers Care Asset Coordinator Name Role Phone Jorge Espinosa Primary Care Provider [phone] Antwon Mirza MD Unavailable [phone] Roland Patel MD Unavailable [phone] Reason for Visit * Auth/Cert (Routine) Specialty Diagnoses / Procedures Referred By Contac t Referred To Contact Referral ID Status Reason Start Date Expiration Date Visits Re quested Visits Authorized [id number] 02 19 Encounter Details Date Type Department Care Team (Late st Contact Info) Description 07/15/2023 9:00 AM CDT [facility] [address] [place] [address] Rosalba Neff OT OT - INITIAL EVALUATION Social History Tobacco Use Types Packs/Day Years Used Date Smoking Tobacco: Every Day Cigarettes 0.5 50.9 Started: 1974 Smokeless Tobacco: Never Alcohol Use Standard Drinks/Week Comments Yes 0 (1 standard drink = 0.6 oz pure alcohol) Occasionally, never a regular drinker Sex and Gender Information Value Date Recorded Sex Assigned at Not on file 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 Gender Identity Not on file Sexual Orientation Not on file documented as of this encounter Plan of Treatment Not on file documented as of this encounter Visit Diagnoses Not on filedocumented in this encounter Home Health Visit - Care Plan Visit Details Visit Type -OT - INITIAL EREN LUATION Discipline -Occupational Therapy Problems Problem Description Start Date Status Goals Interve ntions OCCUPATIONAL THERAPY GENERAL ORDER (O) Disciplines: Occupational Therapy Occupational Therapy General Order 07/15/2023 Active 1 goal linked to scheduled/documen yoselin intervention 1 goal intervention scheduled/document ed in this visit OT COMPREHENSIVE Disciplines: Occupational Therapy 07/15/2023 Active 1 goal linked to scheduled/documen yoselin intervention 1 goal intervention scheduled/document ed in this visit Goals Goal Associated Problem Outcome Goal Met? Visit Notes Occupational Therapy General Description: After assessing the patient and discussing the patient's goals the following were identified. Patient Centered Retirement Goal: safely get in the tub/shower Target date: 08/05/23 OCCUPATIONAL THERAPY GENERAL ORDER (O) No OT Transfers Description: Short Term Goal: Patient will complete tub transfer with adaptive equipment of bench and grab bar with independence and good understanding of safety/technique. To be met by 08/05/23. OT COMPREHENSIVE No Interventions Intervention Associated Problem/Goal Status Variance Visit Notes OT Evaluation (Order Only) Description: 63 y/o male with oropharyngeal cancer, is receiving chemotherapy every and Radiotherapy Tuesday through Tuesday at [facility] cancer, and has had a 10 % [...] UE HEP, and energy conservation Patient and Gillian Bailey PAC are in agreement with plan of care. Perform pulse oximetry PRN for intermittent assessment and/ or respiratory distress. Problem:OCCUPATIONAL THERAPY GENERAL ORDER (O) Goal:Occupational Therapy General Completed OT Transfers Description: Instruct on transfer techniques and safety. Equipment as needed. Problem:OT COMPREHENSIVE Goal:OT Transfers Completed The use of a transfer tub bench in his garden tub or other bathroom was discussed to make it safer and use less energy for bathing as well as possibly utilizing oxygen during shower. Follow-up is required. documented in this encounter Care Teams Asset Coordinator Relationship Specialty Start Date End Date Jorge Espinosa PA [address] [place] [address] PCP - General Physician City Route Driver 04/11/23 Antwon Mirza MD [address] [place] [address] Consulting Physician Medical Oncology 05/04/23 Roland Patel MD [address] [place] [address] Consulting Physician Radiation Oncology 05/04/23 documented as of this encounter
--- OUTSIDE RECORDS SUMMARY | 2024-02-15 11:28 | XMS_ITS | Encounter Summary ---
Author Organization [facility] Address [address] [facility] [place] [address] Phone Care Team Providers Care Bruise Trimmer Name Role Phone Jorge Espinosa Primary Care Provider [phone] Antwon Mirza MD Unavailable [phone] Roland Patel MD Unavailable [phone] Reason for Visit * Auth/Cert (Routine) Specialty Diagnoses / Procedures Referred By Contac t Referred To Contact Referral ID Status Reason Start Date Expiration Date Visits Re quested Visits Authorized [id number] 02 19 Encounter Details Date Type Department Care Team (Late st Contact Info) Description 07/19/2023 9:45 AM CDT [facility] [address] [place] [address] Paula Gallegos, PT PT - INITIAL EVALUATION Social History Tobacco Use Types Packs/Day Years Used Date Smoking Tobacco: Every Day Cigarettes 0.5 50.9 Started: 1974 Smokeless Tobacco: Never Alcohol Use Standard Drinks/Week Comments Yes 0 (1 standard drink = 0.6 oz pure alcohol) Occasionally, never a regular drinker Sex and Gender Information Value Date Recorded Sex Assigned at Not on file 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 Gender Identity Not on file Sexual Orientation Not on file documented as of this encounter Last Filed Vital Signs Vital Sign Reading Time Taken Comments Blood Pressure 128/68 07/19/2023 10:02 AM CDT Pulse 68 07/19/2023 10:02 AM CDT Temperature 37 ??C (98.6 ??F) 07/19/2023 10:02 AM CDT Respiratory Rate 16 07/19/2023 10:02 AM CDT Oxygen Saturation 98% 07/19/2023 10:02 AM CDT Inhaled Oxygen Concentration - - Weight - - Height - - Body Mass Index - - documented in this encounter Plan of Treatment Not on file documented as of this encounter Visit Diagnoses Not on filedocumented in this encounter Care Teams Bruise Trimmer Relationship Specialty Start Date End Date Jorge Espinosa PA [address] [place] [address] PCP - General Physician Air Brush Artist 04/11/23 Antwon Mirza MD [address] [place] [address] Consulting Physician Medical Oncology 05/04/23 Roland Patel MD [address] [place] [address] Consulting Physician Radiation Oncology 05/04/23 documented as of this encounter
--- OUTSIDE RECORDS SUMMARY | 2024-02-15 11:28 | XMS_ITS | Encounter Summary ---
Author Organization [facility] Address [address] [facility] [place] [address] Phone Care Team Providers Care Registered Appraiser Name Role Phone Jorge Espinosa Primary Care Provider [phone] Antwon Mirza MD Unavailable [phone] Roland Patel MD Unavailable [phone] Encounter Details Date Type Department Care Team (Late st Contact Info) Description 08/03/2023 Telephone [facility] [address] [place] [address] Jorge Espinosa, SHAHID [address] [facility] [place] [address] Social History Tobacco Use Types Packs/Day Years Used Date Smoking Tobacco: Every Day Cigarettes 0.5 50.9 Started: 1974 Smokeless Tobacco: Never Alcohol Use Standard Drinks/Week Comments Yes 0 (1 standard drink = 0.6 oz pure alcohol) Occasionally, never a regular drinker Sex and Gender Information Value Date Recorded Sex Assigned at Not on file 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 Per chart review, it looks like Rocael Segal PCP. Would recommend to route to his office for HAND HOSE CUTTER orders. * Telephone Encounter - Daniela Rodriguez, PROJECT ACCOUNT MANAGER-SPEECH LANGUAGE PATHOLOGIST - 08/03/2023 8:32 AM CDT Will you give verbal ok for [facility] HAND HOSE CUTTER? HAND HOSE CUTTER for transportation, available resources as well as discussion of different levels of care available. Electronically signed by Daniela Rodriguez, PROJECT ACCOUNT MANAGER-SPEECH LANGUAGE PATHOLOGIST at 08/03/2023 8:34 AM CDT documented in this encounter Plan of Treatment Not on file documented as of this encounter Visit Diagnoses Not on filedocumented in this encounter Care Teams Registered Appraiser Relationship Specialty Start Date End Date Jorge Espinosa PA [address] [place] [address] PCP - General Physician Customer Service Advisor 04/11/23 Antwon Mirza MD [address] [place] [address] Consulting Physician Medical Oncology 05/04/23 Roland Patel MD [address] [place] [address] Consulting Physician Radiation Oncology 05/04/23 documented as of this encounter
--- OUTSIDE RECORDS SUMMARY | 2024-02-15 11:28 | XMS_ITS | Encounter Summary ---
Author Organization [facility] Address [address] [place] [address] Phone Care Team Providers Care Firearms Model Maker Name Role Phone Jorge Espinosa Primary Care Provider [phone] Antwon Mirza MD Unavailable [phone] Roland Patel MD Unavailable [phone] Reason for Visit * Auth/Cert (Routine) Specialty Diagnoses / Procedures Referred By Contac t Referred To Contact Referral ID Status Reason Start Date Expiration Date Visits Re quested Visits Authorized [id number] 02 19 Encounter Details Date Type Department Care Team (Late st Contact Info) Description 07/25/2023 9:00 AM CDT [facility] [address] [place] [address] Nadiya Sparks PTA PT - HOME VISIT [...] on file 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 Gender Identity Not on file Sexual Orientation Not on file documented as of this encounter Last Filed Vital Signs Vital Sign Reading Time Taken Comments Blood Pressure 146/72 07/25/2023 9:03 AM CDT Pulse 71 07/25/2023 9:03 AM CDT Temperature 36.4 ??C (97.5 ??F) 07/25/2023 9:03 AM CD T Respiratory Rate 18 07/25/2023 9:03 AM CDT Oxygen Saturation 93% 07/25/2023 9:03 AM CDT Inhaled Oxygen Concentration - - [...] PT COMPREHENSIVE Disciplines: Physical Therapy 07/19/2023 Active 2 goals linked to scheduled/documente d interventions 2 goal interventions scheduled/documente d in this visit Goals Goal Associated Problem Outcome Goal Met? Visit Notes PT Transfers Description: Veterinary Assistant Technician Goal: Patient will perform sit<>stand transfers independently with use of AD prn. To be met by 08-05-23. PT COMPREHENSIVE No PT HEP Description: Penitentiary Goal: Patient and/or caregiver will independently with final HEP of strengthening, balance training, conditioning and core strengthening in order to continue making strength gains , improving balance and improving activity tolerance after discharge from home care. To be met by 08-05-23. PT COMPREHENSIVE No Interventions Intervention Associated Problem/Goal Status Variance Visit Notes PT Transfers Description: Instruct in proper safety and transfer technique. Problem:PT COMPREHENSIVE Goal:PT Transfers Completed Transfer training provided this date supine><sitting. Level of support required for safety independently. Assistive devices used: edge of mattress as patient pulls up on it to upright trunk Skill provided Initial instruction in safety and technique. Tolerance to activity good Instruction provided to Patient. Response return demonstration. Progress toward goal: met getting up to side of bed PT HEP Progression Description: Instruct on home exercise program. Progress as tolerated. Problem:PT COMPREHENSIVE Goal:PT HEP Completed Home Exercise Program issued/performed B L/E's AROM x 10-20 reps consisting of ankle DF/PF, hip flexion/abduction, knee flexion/extension and sit to stands with leg fatigue reported and patient reporting he didnt sleep good last night and is tired to start with. Instruction provided to Patient. Move through as much motion with slow controlled movement patterns for optimal outcomes. Handout given for HEP and patient instructed to perform 1-2 x a day as tolerated. Response verbalize understanding, return demonstration and ongoing. documented in this encounter Care Teams Firearms Model Maker Relationship Specialty Start Date End Date Jorge Espinosa PA [address] [place] [address] PCP - General Physician Lithographic Artist 04/11/23 Antwon Mirza MD [address] [place] [address] Consulting Physician Medical Oncology 05/04/23 Roland Patel MD [address] [place] [address] Consulting Physician Radiation Oncology 05/04/23 documented as of this encounter
--- OUTSIDE RECORDS SUMMARY | 2024-02-15 11:28 | XMS_ITS | Encounter Summary ---
Author Organization [facility] Address [address] [facility] [place] [place] [address] Phone Care Team Providers Care Bander Operator Name Role Phone Jorge Espinosa Primary Care Provider [phone] Antwon Mirza MD Unavailable [phone] Roland Patel MD Unavailable [phone] Reason for Visit * Auth/Cert (Routine) Specialty Diagnoses / Procedures Referred By Contac t Referred To Contact Referral ID Status Reason Start Date Expiration Date Visits Re quested Visits Authorized [id number] 02 19 Encounter Details Date Type Department Care Team (Late st Contact Info) Description 08/01/2023 11:00 AM CDT [facility] [address] [place] [address] Paula Gallegos, PT PT - DISCIPLINE DISCHARGE Social History Tobacco Use Types Packs/Day Years Used Date Smoking Tobacco: Every Day Cigarettes 0.5 50.9 Started: 1974 Smokeless Tobacco: Never Alcohol Use Standard Drinks/Week Comments Yes 0 (1 standard drink = 0.6 oz pure alcohol) Occasionally, never a regular drinker Sex and Gender Information Value Date Recorded Sex Assigned at Not on file 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 Gender Identity Not on file Sexual Orientation Not on file documented as of this encounter Last Filed Vital Signs Vital Sign Reading Time Taken Comments Blood Pressure 136/70 08/01/2023 10:52 AM CDT Pulse 66 08/01/2023 10:52 AM CDT Temperature 36.5 ??C (97.7 ??F) 08/01/2023 10:52 AM C DT Respiratory Rate 16 08/01/2023 10:52 AM CDT Oxygen Saturation 97% 08/01/2023 10:52 AM CDT Inhaled Oxygen Concentration - - Weight - - Height - - Body Mass Index - - documented in this encounter Plan of Treatment Not on file documented as of this encounter Visit Diagnoses Not on filedocumented in this encounter Home Health Visit - Care Plan Visit Details Visit Type -PT - DISCIPLINE DISCHARGE Discipline -Physical Therapy Problems Problem Description Start Date Status Goals Interve ntions PT DISCHARGE/JOSEPH SSESSMENT Disciplines: Physical Therapy PT Discharge 07/19/2023 Resolved on 08/01/2023 - 1 problem intervention scheduled/document ed in this visit PT COMPREHENSIVE Disciplines: Physical Therapy 07/19/2023 Resolved on 08/01/2023 5 goals linked to scheduled/document ed interventions 4 goal interventions scheduled/document ed in this visit Goals Goal Associated Problem Outcome Goal Met? Visit Notes PT Balance Description: [employer] Forces Weapons Sergeant Goal: Patient will show improved dynamic standing balance as demonstrated by improved Tinetti score from to in order to lower risk for falls and Improve functional mobility. To be met by 08-05-23. PT COMPREHENSIVE Therapy: Goal met Yes PT Stairs and Home Exit Description: Snf Goal: Patient will be independent on entry steps with use of HR/AD prn while maintaining ordered precautions to allow for ability to enter/exit home safely . To be met by 08-05-23. PT COMPREHENSIVE Therapy: Goal met Yes PT Ambulation Description: Snf Goal: Patient will ambulate independently x 100-200 feet with use of straight cane, over even surfaces and/or uneven surfaces with the following improved gait characteristics no LOB in order to safely ambulate to/from mailbox. To be met by 08-05-23. PT COMPREHENSIVE Therapy: Goal met Yes PT Transfers Description: [employer] Forces Weapons Sergeant Goal: Patient will perform sit<>stand transfers independently with use of AD prn. To be met by 08-05-23. PT COMPREHENSIVE Therapy: Goal met Yes PT HEP Description: [employer] Forces Weapons Sergeant Goal: Patient and/or caregiver will independently with final HEP of strengthening, balance training, conditioning and core strengthening in order to continue making strength gains , improving balance and improving activity tolerance after discharge from home care. To be met by 08-05-23. PT COMPREHENSIVE Therapy: Goal met Yes Interventions Intervention Associated Problem/Goal Status Variance Visit Notes PT Discharge Problem:PT DISCHARGE/REASSESSMEN T Completed Discharge Instructions provided to Patient. Response verbalize understanding. PT Stairs and Home Exit Description: Instruct in proper safety and technique for stair training or home exit as directed in the goal. Problem:PT COMPREHENSIVE Goal:PT Stairs and Home Exit Completed Provided skilled training on 5 entry steps with use of 1 rail and cane with independence. Pt performs a step to pattern and performs task slowly and cautiously. Tolerance to activity good. Instruction provided to Patient. Response verbalize understanding. Progress toward goal: met PT Ambulation Description: Provide gait training for increased safety and efficiency. Progress per patient tolerance and safety. Problem:PT COMPREHENSIVE Goal:PT Ambulation Completed No outdoor gait performed due to excessive heat. Patient ambulated independently indoors x 120 feet with use of straight cane over even surfaces with the following gait characteristics slightly stooped posture, neutral VENUS, pt demos good step length bilaterally while demonstrating no LOB/SOB - SpO2 = 98% on RA post gait. Pt ambulates slowly and cautiously and PT recommended pathways remain clear in order to decrease his risk of falling. Tolerance to activity increased gait distance compared to initial eval Instruction provided to Patient. Response verbalize understanding. Progress toward goal: met PT Transfers Description: Instruct in proper safety and transfer technique. Problem:PT COMPREHENSIVE Goal:PT Transfers Completed Transfer training provided this date Sit to/from stand . Level of support required for safety independently. Assistive devices used: none Tolerance to activity good Instruction provided to Patient. Response verbalize understanding. Progress toward goal: met PT HEP Progression Description: Instruct on home exercise program. Progress as tolerated. Problem:PT COMPREHENSIVE Goal:PT HEP Completed Pt has been educated in a LE HEP and has been distributed handouts for reference. PT recommended pt continue performing his HEP daily prn for strengthening purposes. Instruction provided to Patient. Response verbalize understanding. documented in this encounter Care Teams Bander Operator Relationship Specialty Start Date End Date Jorge Espinosa PA [address] [place] [address] PCP - General Physician Ruby On Rails Developer 04/11/23 Antwon Mirza MD [address] [place] [address] Consulting Physician Medical Oncology 05/04/23 Roland Patel MD [address] [place] [address] Consulting Physician Radiation Oncology 05/04/23 documented as of this encounter
--- OUTSIDE RECORDS SUMMARY | 2024-02-15 11:28 | XMS_ITS | Encounter Summary ---
Author Organization [facility] Address [address] [facility] [place] [address] Phone Care Team Providers Care Armed Security Guard Name Role Phone Jorge Espinosa Primary Care Provider [phone] Antwon Mirza MD Unavailable [phone] Roland Patel MD Unavailable [phone] Reason for Visit * Auth/Cert (Routine) Specialty Diagnoses / Procedures Referred By Contac t Referred To Contact Referral ID Status Reason Start Date Expiration Date Visits Re quested Visits Authorized [id number] Encounter Details Date Type Department Care Team (Late st Contact Info) Description 07/27/2023 2:30 PM CDT [facility] [address] [place] [address] Daniela Rodriguez, LIABILITY CLAIMS EXAMINER-SPEECH LANGUAGE PATHOLOGIST [place] CLAIMS EXAMINER - REASSESSMENT Social History Tobacco Use Types Packs/Day Years Used Date Smoking Tobacco: Every Day Cigarettes 0.5 50.9 Started: 1974 Smokeless Tobacco: Never Alcohol Use Standard Drinks/Week Comments Yes 0 (1 standard drink = 0.6 oz pure alcohol) Occasionally, never a regular drinker Sex and Gender Information Value Date Recorded Sex Assigned at Not on file 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 Gender Identity Not on file Sexual Orientation Not on file documented as of this encounter Last Filed Vital Signs Vital Sign Reading Time Taken Comments Blood Pressure - - Pulse 68 07/27/2023 3:18 PM CDT Temperature 36.6 ??C (97.8 ??F) 07/27/2023 3:18 PM CD T Respiratory Rate 18 07/27/2023 3:18 PM CDT Oxygen Saturation 95% 07/27/2023 3:18 PM CDT Inhaled Oxygen Concentration - - Weight - - Height - - Body Mass Index - - documented in this encounter Plan of Treatment Not on file documented as of this encounter Visit Diagnoses Not on filedocumented in this encounter Home Health Visit - Care Plan Visit Details Visit Type -LIABILITY CLAIMS EXAMINER - REASSESSME NT Discipline -Speech Language Pathology Problems Problem Description Start Date Status Goals Interve ntions FALL PREVENTION (O) Disciplines: SN, PT, OT, LIABILITY CLAIMS EXAMINER, [facility], MEDICAL ADVISOR, RT 07/09/2023 Active 1 goal linked to [...] oral intake to be met by 08/20/23 Budget Clerk Goals Patient will retuirn demonstrate oral/pharyngeal/laryngeal exercises [...] goals the following were identified: Patient Centered Budget Clerk Goal: Get rid of this tube. Target [...] Completed Skilled intervention targeting swallowing dysfunction included: Diet texture analysis and treatment conducted with thin liquids and Jello (which turns into a thin if left in the mouth). Pt exhibited significant reflexive cough, throat clear, reguritation and expulsion. Pt was taking normal larger size bites/sips. ST instructed Pt is safe swallow strategies of small sips, slow ratem repetitive swallows, effortful swallow and effortful airway protection maneuvers. With small single sips, and multiple swallows Pt was able to keep it down without expulsion. ST trained Home Exercise Program (HEP) for swallowing. Pt completd 50 Effortful swallows with MOD-MIN cues for completion and use of good effort. Patient demonstrated implementation of trained safe swallowing compensatory strategies with Pt 60% accurate with maximum faded to mod visual/verbal cues. Skilled therapeutic techniques utilized in this session include: [ X ] Fading cueing hierarchy [ X ] Graduated exercises of increasing intensity/complexity [ X ] Verbal cues [ X ] Visual models/cues [ X ] Diet texture analysis [ X ] Train Home Exercise Program (HEP) [ X ] Train safe swallow strategies [ X ] Verbal reinforcement/feedbac k Speech Therapy General (Order Only) Description: ST completed reassessment to add memory to ST plan of care. The [facility] Mental Status Exam (UMS) was used [...] is being treated by Dr. Zayas at [facility] with SUBASSEMBLIES WIRER. Pt was referred to for dysphagia. [facility] bedside swallow evaluation: The [facility] Assessment of [...] strategies. Other contributing issues: Pt is receiving SUBASSEMBLIES WIRER but states that he misses many visits due to not feeling well and transportation issues. ST to request repeat Modified Barium Swallow Study (MBSS). Pulse Oximetry PRN for shortness of breath and assessment of respiratory status. Problem:SPEECH THERAPY EVALUATION Goal:Speech Therapy Evaluation Completed documented in this encounter Care Teams Armed Security Guard Relationship Specialty Start Date End Date Jorge Espniosa PA [address] [place] [address] PCP - General Physician Broadband Engineer 04/11/23 Antwon Mirza MD [address] [place] [address] Consulting Physician Medical Oncology 05/04/23 Roland Patel MD [address] [place] [address] Consulting Physician Radiation Oncology 05/04/23 documented as of this encounter
--- OUTSIDE RECORDS SUMMARY | 2024-02-15 11:28 | XMS_ITS | Encounter Summary ---
Author Organization [facility] Address [address] [facility] [place] [address] Phone Care Team Providers Care Instrument Assembly Supervisor Name Role Phone Jorge Espinosa Primary Care Provider [phone] Antwon Mirza MD Unavailable [phone] Roland Patel MD Unavailable [phone] Reason for Visit * Auth/Cert (Routine) Specialty Diagnoses / Procedures Referred By Contac t Referred To Contact Referral ID Status Reason Start Date Expiration Date Visits Re quested Visits Authorized [id number] 02 19 Encounter Details Date Type Department Care Team (Late st Contact Info) Description 07/19/2023 Home Care Visit [address] [address] Gabby Diamond OTA [place] TELEPHONE ENCOUNTER Social History Tobacco Use Types Packs/Day Years Used Date Smoking Tobacco: Every Day Cigarettes 0.5 50.9 Started: 1974 Smokeless Tobacco: Never Alcohol Use Standard Drinks/Week Comments Yes 0 (1 standard drink = 0.6 oz pure alcohol) Occasionally, never a regular drinker Sex and Gender Information Value Date Recorded Sex Assigned at Not on file 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 documented in this encounter Care Teams Instrument Assembly Supervisor Relationship Specialty Start Date End Date Jorge Espinosa PA [address] [place] [address] PCP - General Physician Paraprofessional Aide 04/11/23 Antwon Mirza MD [address] [place] [address] Consulting Physician Medical Oncology 05/04/23 Roland Patel MD [address] [place] [address] Consulting Physician Radiation Oncology 05/04/23 documented as of this encounter
--- OUTSIDE RECORDS SUMMARY | 2024-02-15 11:28 | XMS_ITS | Encounter Summary ---
Author Organization [facility] Address [address] [facility] [place] [address] Phone Care Team Providers Care Hand Mexican Food Maker Name Role Phone Jorge Espinosa Primary Care Provider [phone] Antwon Mirza MD Unavailable [phone] Roland Patel MD Unavailable [phone] Reason for Visit * Auth/Cert (Routine) Specialty Diagnoses / Procedures Referred By Contac t Referred To Contact Referral ID Status Reason Start Date Expiration Date Visits Re quested Visits Authorized [id number] 02 19 Encounter Details Date Type Department Care Team (Late st Contact Info) Description 07/29/2023 9:00 AM CDT [facility] [address] [place] [address] Nadiya Sparks PTA PT - HOME VISIT [...] on file 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 Gender Identity Not on file Sexual Orientation Not on file documented as of this encounter Last Filed Vital Signs Vital Sign Reading Time Taken Comments Blood Pressure 140/77 07/29/2023 9:13 AM CDT Pulse 77 07/29/2023 9:13 AM CDT Temperature 36.4 ??C (97.6 ??F) 07/29/2023 9:13 AM CD T Respiratory Rate 18 07/29/2023 9:13 AM CDT Oxygen Saturation 97% 07/29/2023 9:13 AM CDT Inhaled Oxygen Concentration - - [...] Description Start Date Status Goals Interve ntions PAIN-MANAGEMENT/ EDUCATION Disciplines: Skilled Clinicians 07/09/2023 Active 1 goal linked to scheduled/documente d intervention 1 goal intervention scheduled/document ed in this visit PT COMPREHENSIVE Disciplines: Physical Therapy 07/19/2023 Active 3 goals linked to scheduled/documente d interventions 3 goal interventions scheduled/document ed in this visit Goals Goal Associated Problem Outcome Goal Met? Visit Notes Pain Management/Education Description: Shared goal applicable to all disciplines with visit frequency order. Patient's pain level will remain at an acceptable level of 3 or lower with current pain medications/interventions. Target date: by 08/27/23 (date) PAIN-MANAGEMENT/EDUCATION No PT Ambulation Description: Security Team Lead Goal: Patient will ambulate independently x 100-200 feet with use of straight cane, over even surfaces and/or uneven surfaces with the following improved gait characteristics no LOB in order to safely ambulate to/from mailbox. To be met by 08-05-23. PT COMPREHENSIVE No PT Transfers Description: Mcfp Goal: Patient will perform sit<>stand transfers independently with use of AD prn. To be met by 08-05-23. PT COMPREHENSIVE No PT HEP Description: Mcfp Goal: Patient and/or caregiver will independently with final HEP of strengthening, balance training, conditioning and core strengthening in order to continue making strength gains , improving balance and improving activity tolerance after discharge from home care. To be met by 08-05-23. PT COMPREHENSIVE No Interventions Intervention Associated Problem/Goal Status Variance Visit Notes Pain Management/Education (O) Description: Instruct patient/ caregiver on strategies to manage pain. Problem:PAIN-MANAGEME NT/EDUCATION Goal:Pain Management/Education Completed Pain management plan: 1. Set a realistic goal for the day. 2. Plan rest periods. 3. Do not wait until pain is severe before doing something to relieve it. 4. Take your medicine regularly as directed. 5. Perform exercises as instructed. 6. Do something that makes you feel productive each day. 7. Make contact with family and friends. 8. Try non drug methods such as massage, aromatherapy, relaxation, and deep breathing. 9. Relaxation/ Breathing instructions: Relaxation helps to decrease muscle tension and stress. Sit in a relaxed position and focus on breathing, close your eyes. Breathe deeply and slowly (not too deeply to avoid muscle tension). If needed, count while breathing to assist with focus. Instruction provided wear gloves at night to decrease scratching damage from radiation chong. Get cream or lotion to apply to decrease itching. Instruction provided to Patient and Caregiver ex-. Response verbalize understanding. PT Ambulation Description: Provide gait training for increased safety and efficiency. Progress per patient tolerance and safety. Problem:PT COMPREHENSIVE Goal:PT Ambulation Completed Patient ambulated independently 20 feet with use of straight cane. WBAT bilateral lower extremity over even surfaces with the following gait characteristics slow/unsteady with one unsteadiness episode observed in bathroom. Skills provided: Safety instruction use cane for stability and decrease fall risks . Tolerance to activity Increased safety awareness. Instruction provided to Patient. Response verbalize understanding. Progress toward goal: no recent falls reported PT Transfers Description: Instruct in proper safety and transfer technique. Problem:PT COMPREHENSIVE Goal:PT Transfers Completed Transfer training provided this date Sit to/from stand . Level of support required for safety with supervision. Assistive devices used: Cane Skill provided Proper hand placement. Tolerance to activity fair Instruction provided to Patient. Response verbalize understanding. Progress toward goal: met with patient verbalizing understanding of safety PT HEP Progression Description: Instruct on home exercise program. Progress as tolerated. Problem:PT COMPREHENSIVE Goal:PT HEP Completed Home Exercise Program issued and verbally reviewed standing HEP with patient reading handout and verbalizing understanding of how to perform as he tolerates. Instruction provided to Patient. Handout given and patient instructed to perform as tolerated and use cane to decrease fall risks Response verbalize understanding. documented in this encounter Care Teams Hand Mexican Food Maker Relationship Specialty Start Date End Date Jorge Espinosa PA [address] [place] [address] PCP - General Physician Hairspring Vibrator 04/11/23 Antwon Mirza MD [address] [place] [address] Consulting Physician Medical Oncology 05/04/23 Roland Patel MD [address] [place] [address] Consulting Physician Radiation Oncology 05/04/23 documented as of this encounter
--- OUTSIDE RECORDS SUMMARY | 2024-02-15 11:28 | XMS_ITS | Encounter Summary ---
Author Organization [facility] Address [address] [place] [address] Phone Care Team Providers Care Executive Vp Name Role Phone Jorge Espinosa Primary Care Provider [phone] Antwon Mirza MD Unavailable [phone] Roland Patel MD Unavailable [phone] Reason for Visit * Auth/Cert (Routine) Specialty Diagnoses / Procedures Referred By Contac t Referred To Contact Referral ID Status Reason Start Date Expiration Date Visits Re quested Visits Authorized [id number] 1 Encounter Details Date Type Department Care Team (Late st Contact Info) Description 07/19/2023 11:30 AM CDT [facility] [address] [place] [address] Gabby Diamond OTA MA OT - HOME VISIT Social History Tobacco Use Types Packs/Day Years Used Date Smoking Tobacco: Every Day Cigarettes 0.5 50.9 Started: 1974 Smokeless Tobacco: Never Alcohol Use Standard Drinks/Week Comments Yes 0 (1 standard drink = 0.6 oz pure alcohol) Occasionally, never a regular drinker Sex and Gender Information Value Date Recorded Sex Assigned at Not on file 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 Gender Identity Not on file Sexual Orientation Not on file documented as of this encounter Last Filed Vital Signs Vital Sign Reading Time Taken Comments Blood Pressure 120/50 07/19/2023 12:08 PM CDT Pulse 68 07/19/2023 12:08 PM CDT Temperature 36.4 ??C (97.5 ??F) 07/19/2023 12:08 PM C DT Respiratory Rate 18 07/19/2023 12:08 PM CDT Oxygen Saturation 95% 07/19/2023 12:08 PM CDT Inhaled Oxygen Concentration - - Weight - - Height - - Body Mass Index - - documented in this encounter Plan of Treatment Not on file documented as of this encounter Visit Diagnoses Not on filedocumented in this encounter Home Health Visit - Care Plan Visit Details Visit Type -OT - HOME VISIT Discipline -Occupational Therapy Problems Problem Description Start Date Status Goals Interve ntions ALL HH VITAL SIGN PARAMETERS Disciplines: All Home Care 07/09/2023 Active - 1 problem intervention scheduled/document ed in this visit OCCUPATIONAL THERAPY GENERAL ORDER (O) Disciplines: Occupational Therapy Occupational Therapy General Order 07/15/2023 Active 1 goal linked to scheduled/document ed intervention 1 goal intervention scheduled/document ed in this visit OT COMPREHENSIVE Disciplines: Occupational Therapy 07/15/2023 Active 3 goals linked to scheduled/document ed interventions 3 goal interventions scheduled/document ed in this visit Goals Goal Associated Problem Outcome Goal Met? Visit Notes Occupational Therapy General Description: After assessing the patient and discussing the patient's goals the following were identified. [facility] Goal: safely get in the tub/shower Target date: 08/05/23 OCCUPATIONAL THERAPY GENERAL ORDER (O) No OT Bathing Description: Short Term Goal: Patient will complete total body bathing at tub level while sitting with tub bench and grab bars with independence and good understanding of safety/technique. To be met by 08/05/23. OT COMPREHENSIVE No OT Energy Conservation Description: Short Term Goal: Patient will teach back 4/4 energy conservation principles for rest breaks, diaphragmatic breathing, pursed mouth breathing and activity planning with independence with handout in order to complete bathing with good understanding of safety/technique. To be met by 08/05/23. OT COMPREHENSIVE No OT Transfers Description: Short Term Goal: Patient will complete tub transfer with adaptive equipment of bench and grab bar with independence and good understanding of safety/technique. To be met by 08/05/23. OT COMPREHENSIVE No Interventions Intervention Associated Problem/Goal Status Variance Visit Notes All HH Vital Sign Parameters (Order Only) [...] measures. 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 ADL equipment as needed. Problem:OT COMPREHENSIVE Goal:OT Bathing Completed Patient education on bathing for total body at shower level while sitting with hand held shower with verbal cues and good verbal understanding Caregiver training provided for NA. Skill provided to improve this function consisted of Pt education on use of handheld shower head to increase endurance and functional performance when showering while seated. Pt displayed good understanding of recommendation education this date. Compliance of follow through is fair. Progress toward goal: ongoing OT Energy Conservation Description: Instruct on energy conservation techniques. Problem:OT COMPREHENSIVE Goal:OT Energy Conservation Completed Patient education on utilizing energy conservation principles for rest breaks, pursed mouth breathing and activity planning with verbal cues and good verbal understanding. Caregiver training provided - NA. Skill provided to improve this function consisted of -Pt issued handout with education on energy conservation techniques to decrease SOB and exertion with ADL and IADL tasks including completing task at slow pace, prioritizing tasks by importance, breaking heavy work tasks into smaller tasks, avoid doing too many tasks in the same day, ensure enough time is available to complete tasks, plan rest breaks into all tasks, avoid positions that expend increased energy, and store all needed items in safe easy reach. Pt education on PLB technique with good understanding and return on instruction. Pt displayed good verbal understanding Compliance of follow through is good. Progress toward goal: ongoing OT Transfers Description: Instruct on transfer techniques and safety. Equipment as needed. Problem:OT COMPREHENSIVE Goal:OT Transfers Completed Patient performed transfer with adaptive equipment of DEMO tub transfer bench with stand by assist and fair activity tolerance. Caregiver training provided Pts /SO was present during presentation of DME with good understanding of safety [id number]. Skill provided to improve this function consisted of Pt completed shower transfer in his bathroom using DEMO tub transfer bench with SBA of v/c for safety technique and good return on instruction. Pt would benefit from use of tub transfer bench secondary to decreased endurance and decreased balance causing increased safety risks during shower task. Compliance of follow through is good. Progress toward goal: ongoing documented in this encounter Care Teams Executive Vp Relationship Specialty Start Date End Date Jorge Espinosa PA [address] [place] [address] PCP - General Physician Ham Sawyer 04/11/23 Antwon Mirza MD [address] [place] [address] Consulting Physician Medical Oncology 05/04/23 Roland Patel MD [address] [place] [address] Consulting Physician Radiation Oncology 05/04/23 documented as of this encounter
--- OUTSIDE RECORDS SUMMARY | 2024-02-15 11:28 | XMS_ITS | Encounter Summary ---
Author Organization [facility] Address [address] [facility] [place] [address] Phone Care Team Providers Care Tower Truck Driver Name Role Phone Jorge Espinosa Primary Care Provider [phone] Antwon Mirza MD Unavailable [phone] Roland Patel MD Unavailable [phone] Reason for Visit * Auth/Cert (Routine) Specialty Diagnoses / Procedures Referred By Contac t Referred To Contact Referral ID Status Reason Start Date Expiration Date Visits Re quested Visits Authorized [id number] 02 19 Encounter Details Date Type Department Care Team (Late st Contact Info) Description 07/27/2023 Home Care Visit [facility] [address] [place] [address] Gabby Diamond OTA [place] TELEPHONE ENCOUNTER Social History Tobacco Use Types Packs/Day Years Used Date Smoking Tobacco: Every Day Cigarettes 0.5 50.9 Started: 1974 Smokeless Tobacco: Never Alcohol Use Standard Drinks/Week Comments Yes 0 (1 standard drink = 0.6 oz pure alcohol) Occasionally, never a regular drinker Sex and Gender Information Value Date Recorded Sex Assigned at Not on file 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 Hermes M.D. office to request order for tub transfer bench to be sent to [facility]. Jyotsna will send message to charge nurse to address with MD. 07/19/2023 OT Home visit documentation sent to Dr. Mirza's office via fax stating skilled need for DME. documented in this encounter Care Teams Tower Truck Driver Relationship Specialty Start Date End Date Jorge Espinosa PA [address] [place] [address] PCP - General Physician Boat Canvas Installer 04/11/23 Antwon Mirza MD [address] [place] [address] Consulting Physician Medical Oncology 05/04/23 Roland Patel MD [address] [place] [address] Consulting Physician Radiation Oncology 05/04/23 documented as of this encounter
--- OUTSIDE RECORDS SUMMARY | 2024-02-15 11:28 | XMS_ITS | Encounter Summary ---
Author Organization [facility] Address [address] [facility] [place] [address] Phone Care Team Providers Care Oncology Rep Name Role Phone Jorge Espinosa Primary Care Provider [phone] Antwon Mirza MD Unavailable [phone] Roland Patel MD Unavailable [phone] Encounter Details Date Type Department Care Team (Late st Contact Info) Description 07/26/2023 Telephone [facility] Oncology Services [address] [place] [address] Lisa Burden, ANGELITA PR Social History Tobacco Use Types Packs/Day Years Used Date Smoking Tobacco: Every Day Cigarettes 0.5 50.9 Started: 1974 Smokeless Tobacco: Never Alcohol Use Standard Drinks/Week Comments Yes 0 (1 standard drink = 0.6 oz pure alcohol) Occasionally, never a regular drinker Sex and Gender Information Value Date Recorded Sex Assigned at Not on file 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 Regarding his missed appointment over thelast 2 weeks, Aleksey states he is weak, tired all the time . He states home health therapy is coming daily Tuesday- Tuesday. At this time he states he will return TuesdayJuly 31. Dr. Patel informed of the above documented in this encounter Plan of Treatment Not on file documented as of this encounter Visit Diagnoses Not on filedocumented in this encounter Care Teams Oncology Rep Relationship Specialty Start Date End Date Jorge Espinosa PA [address] [place] [address] PCP - General Physician Lacquer Sizer 04/11/23 Antwon Mirza MD [address] [place] [address] Consulting Physician Medical Oncology 05/04/23 Roland Patel MD [address] [place] [address] Consulting Physician Radiation Oncology 05/04/23 documented as of this encounter
--- OUTSIDE RECORDS SUMMARY | 2024-02-15 11:28 | XMS_ITS | Encounter Summary ---
Author Organization [facility] Address [address] [facility] [place] [address] Phone Care Team Providers Care Head Bander And Liner Operator Name Role Phone Jorge Espinosa Primary Care Provider [phone] Antwon Mirza MD Unavailable [phone] Roland Patel MD Unavailable [phone] Reason for Visit * Auth/Cert (Routine) Specialty Diagnoses / Procedures Referred By Contac t Referred To Contact Referral ID Status Reason Start Date Expiration Date Visits Re quested Visits Authorized [id number] 02 19 Encounter Details Date Type Department Care Team (Late st Contact Info) Description 07/26/2023 Home Care Visit [facility] [address] [place] [address] Gabby Diamond OTA ID RESCHEDULED MISSED VISIT Social History Tobacco Use Types Packs/Day Years Used Date Smoking Tobacco: Every Day Cigarettes 0.5 50.9 Started: 1974 Smokeless Tobacco: Never Alcohol Use Standard Drinks/Week Comments Yes 0 (1 standard drink = 0.6 oz pure alcohol) Occasionally, never a regular drinker Sex and Gender Information Value Date Recorded Sex Assigned at Not on file 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 Will attempt to see Pt tomorrow. documented in this encounter Care Teams Head Bander And Liner Operator Relationship Specialty Start Date End Date Jorge Espinosa PA [address] [place] [address] PCP - General Physician Oil Rig Driller 04/11/23 Antwon Mirza MD [address] [place] [address] Consulting Physician Medical Oncology 05/04/23 Roland Patel MD [address] [place] [address] Consulting Physician Radiation Oncology 05/04/23 documented as of this encounter
--- OUTSIDE RECORDS SUMMARY | 2024-02-15 11:28 | XMS_ITS | Encounter Summary ---
Author Organization [facility] Care Team Providers Care Steel Hanger Name Role Phone Jorge Espinosa Primary Care Provider [phone] Antwon Mirza MD Unavailable [phone] Roland Patel MD Unavailable [phone] Encounter Details Date Type Department Care Team (Latest Contact Info) Description 07/15/2023 Travel Social History Tobacco Use Types Packs/Day Years Used Date Smoking Tobacco: Every Day Cigarettes 0.5 50.9 Started: 1974 Smokeless Tobacco: Never Alcohol Use Standard Drinks/Week Comments Yes 0 (1 standard drink = 0.6 oz pure alcohol) Occasionally, never a regular drinker Sex and Gender Information Value Date Recorded Sex Assigned at Not on file 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
--- OUTSIDE RECORDS SUMMARY | 2024-02-15 11:28 | XMS_ITS | Encounter Summary ---
Author Organization [facility] Address [address] [place] [address] Phone Care Team Providers Care Kettle Skimmer Name Role Phone Jorge Espinosa Primary Care Provider [phone] Antwon Mirza MD Unavailable [phone] Roland Patel MD Unavailable [phone] Reason for Visit * Auth/Cert (Routine) Specialty Diagnoses / Procedures Referred By Contac t Referred To Contact Referral ID Status Reason Start Date Expiration Date Visits Re quested Visits Authorized [id number] 02 19 Encounter Details Date Type Department Care Team (Latest Contact Info) Description 07/13/2023 9:30 AM CDT Home Care Visit [facility] [address] [place] [address] Joaquin Dorsey, RN [place] SN - PRIORITY [...] on file 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 Gender Identity Not on file Sexual Orientation Not on file documented as of this encounter Last Filed Vital Signs Vital Sign Reading Time Taken Comments Blood Pressure 122/60 07/13/2023 11:02 AM CDT Pulse 90 07/13/2023 11:02 AM CDT Temperature 36.2 ??C (97.2 ??F) 07/13/2023 11:02 AM C DT Respiratory Rate 18 07/13/2023 11:02 AM CDT Oxygen Saturation 94% 07/13/2023 11:02 AM CDT Inhaled Oxygen Concentration - - Weight - - Height - - Body Mass Index - - documented in this encounter Plan of Treatment Not on file documented as of this encounter Visit Diagnoses Not on filedocumented in this encounter Home Health Visit - Care Plan Visit Details Visit Type -SN - Priority Vi sit Discipline -Intermediate Problems Problem Description Start Date Status Goals Interve ntions CANCER Disciplines: Intermediate Cancer 07/09/2023 Active 1 goal linked to scheduled/documen yoselin intervention 1 goal intervention scheduled/document ed in this visit PAIN-MANAGEMENT /EDUCATION Disciplines: Skilled Clinicians 07/09/2023 Active 1 goal linked to scheduled/documen yoselin intervention 1 goal intervention scheduled/document ed in this visit SN GENERAL ORDERS Disciplines: Intermediate SN General Orders 07/09/2023 Active 1 goal linked to scheduled/documen yoselin intervention 1 goal intervention scheduled/document ed in this visit DIET EDUCATION Disciplines: Intermediate Diet Education 07/09/2023 Active 1 goal linked to scheduled/documen yoselin intervention 1 goal intervention scheduled/document ed in this visit Goals Goal Associated Problem Outcome Goal Met? Visit Notes Cancer Description: Patient will demonstrate effective level cancer related symptom and pain control. Target date: by 08/27/23 (date) CANCER No Pain Management/Education Description: Shared goal applicable to all disciplines with visit frequency order. Patient's pain level will remain at an acceptable level of 3 or lower with current pain medications/interventions. Target date: by 08/27/23 (date) PAIN-MANAGEMENT/EDUCATION No SN General Description: After assessing the [...] Target date: by 08/27/23 SN GENERAL ORDERS No Diet Education Description: Patient will verbalize understanding of ordered diet Nutren enteral feeding per Peg tube, liquid diet per os. Target date: by 07/28/23 (date) DIET EDUCATION No Interventions Intervention Associated Problem/Goal Status Variance [...] to manage pain. Problem:PAIN-MANAGEME NT/EDUCATION Goal:Pain Management/Education Pain management plan: 1. Set a realistic [...] breathing to assist with focus. Instruction provided denies pain. Instruction provided to Patient. Response verbalize understanding. Additional Disease Management (O) Description: SN to monitor for signs and symptoms of exacerbation or complications of Hypertension and Enteral Feeding. Problem:SN GENERAL ORDERS Goal:SN General Exacerbation/ complications noted at this visit: none Diet Teaching Description: Provide instruction on Enteral feeding by gravity bag method, diet. Problem:DIET EDUCATION Goal:Diet Education Diet instruction provided. Instruction provided to Patient. Response verbalize understanding. documented in this encounter Care Teams Kettle Skimmer Relationship Specialty Start Date End Date Jorge Espinosa PA [facility] [place] [address] PCP - General Physician Surgical Scheduler 04/11/23 nAtwon Mirza MD [address] [place] [address] Consulting Physician Medical Oncology 05/04/23 Roland Patel MD [address] [place] [address] Consulting Physician Radiation Oncology 05/04/23 documented as of this encounter
--- OUTSIDE RECORDS SUMMARY | 2024-02-15 11:28 | XMS_ITS | Encounter Summary ---
Author Organization [facility] Address [address] [place] [address] Phone Care Team Providers Care Box Office Agent Name Role Phone Jorge Espinosa Primary Care Provider [phone] Antwon Mirza MD Unavailable Roland Patel MD Unavailable [phone] Encounter Details Date Type Department Care Team (Late st Contact Info) Description 08/03/2023 Telephone [facility] [address] [place] [address] Jorge Espinosa, SHAHID [address] 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 SCIENTIFIC HELPER for transportation, available resources as well as discussion of different levels of care (hospice) available. documented in this encounter Plan of Treatment Not on file documented as of this encounter Visit Diagnoses Not on filedocumented in this encounter Care Teams Box Office Agent Relationship Specialty Start Date End Date Jorge Espinosa PA [address] [place] [address] PCP - General Physician Immigration Law Specialist 04/11/23 Antwon Mirza MD [address] [place] [address] Consulting Physician Medical Oncology 05/04/23 Roland Patel MD [address] [place] [address] Consulting Physician Radiation Oncology 05/04/23 documented as of this encounter
--- OUTSIDE RECORDS SUMMARY | 2024-02-15 11:28 | XMS_ITS | Encounter Summary ---
Author Organization [facility] Address [address] [place] [address] Phone Care Team Providers Care Well Service Floorperson Name Role Phone Jorge Espinosa Primary Care Provider [phone] Antwon Mirza MD Unavailable [phone] Roland Patel MD Unavailable [phone] Reason for Visit * Auth/Cert (Routine) Specialty Diagnoses / Procedures Referred By Contac t Referred To Contact Referral ID Status Reason Start Date Expiration Date Visits Re quested Visits Authorized [id number] 02 19 Encounter Details Date Type Department Care Team (Late st Contact Info) Description 07/19/2023 Home Care Visit [facility] [address] [place] [address] Amy Swift, MANAGER CAR [place] TELEPHONE ENCOUNTER Social History Tobacco Use Types Packs/Day Years Used Date Smoking Tobacco: Every Day Cigarettes 0.5 50.9 Started: 1974 Smokeless Tobacco: Never Alcohol Use Standard Drinks/Week Comments Yes 0 (1 standard drink = 0.6 oz pure alcohol) Occasionally, never a regular drinker Sex and Gender Information Value Date Recorded Sex Assigned at Not on file 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 Gender Identity Not on file Sexual Orientation Not on file documented as of this encounter Plan of Treatment Not on file documented as of this encounter Visit Diagnoses Not on filedocumented in this encounter Care Teams Well Service Floorperson Relationship Specialty Start Date End Date Jorge Espinosa PA [address] [place] [address] PCP - General Physician Geomagnetician 04/11/23 Antwon Mirza MD [address] [place] [address] Consulting Physician Medical Oncology 05/04/23 Roland Patel MD [address] [place] [address] Consulting Physician Radiation Oncology 05/04/23 documented as of this encounter
--- OUTSIDE RECORDS SUMMARY | 2024-02-15 11:28 | XMS_ITS | Encounter Summary ---
Author Organization [facility] Address [address] [facility] [place] [address] Phone Care Team Providers Care Embedded Systems Designer Name Role Phone Jorge Espinosa Primary Care Provider [phone] Antwon Mirza MD Unavailable [phone] Roland Patel MD Unavailable [phone] Reason for Visit * Auth/Cert (Routine) Specialty Diagnoses / Procedures Referred By Contac t Referred To Contact Referral ID Status Reason Start Date Expiration Date Visits Re quested Visits Authorized [id number] 02 19 Encounter Details Date Type Department Care Team (Late st Contact Info) Description 07/21/2023 9:30 AM CDT [facility] [address] [place] [address] Daniela Rodriguez, MIXING PLACE SUPERVISOR-SPEECH LANGUAGE PATHOLOGIST [place] MIXING PLACE SUPERVISOR - INITIAL EVALUATION Social History Tobacco Use Types Packs/Day Years Used Date Smoking Tobacco: Every Day Cigarettes 0.5 50.9 Started: 1974 Smokeless Tobacco: Never Alcohol Use Standard Drinks/Week Comments Yes 0 (1 standard drink = 0.6 oz pure alcohol) Occasionally, never a regular drinker Sex and Gender Information Value Date Recorded Sex Assigned at Not on file 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 Gender Identity Not on file Sexual Orientation Not on file documented as of this encounter Last Filed Vital Signs Vital Sign Reading Time Taken Comments Blood Pressure - - Pulse 72 07/21/2023 9:43 AM CDT Temperature 36.3 ??C (97.3 ??F) 07/21/2023 9:43 AM CD T Respiratory Rate 18 07/21/2023 9:43 AM CDT Oxygen Saturation 95% 07/21/2023 9:43 AM CDT Inhaled Oxygen Concentration - - Weight - - Height - - Body Mass Index - - documented in this encounter Plan of Treatment Not on file documented as of this encounter Visit Diagnoses Not on filedocumented in this encounter Care Teams Embedded Systems Designer Relationship Specialty Start Date End Date Jorge Espinosa PA [address] [place] [address] PCP - General Physician Network Admin 04/11/23 Antwon Mirza MD [address] [place] [address] Consulting Physician Medical Oncology 05/04/23 Roland Patel MD [address] [place] [address] Consulting Physician Radiation Oncology 05/04/23 documented as of this encounter
--- OUTSIDE RECORDS SUMMARY | 2024-02-15 11:28 | XMS_ITS | Encounter Summary ---
Author Organization [facility] Address [address] [facility] [place] [address] Phone Care Team Providers Care Loading Machine Operator Helper Name Role Phone Jorge Espinosa Primary Care Provider [phone] Antwon Mirza MD Unavailable [phone] Roland Patel MD Unavailable [phone] Reason for Visit * Auth/Cert (Routine) Specialty Diagnoses / Procedures Referred By Contac t Referred To Contact Referral ID Status Reason Start Date Expiration Date Visits Re quested Visits Authorized [id number] 02 19 Encounter Details Date Type Department Care Team (Latest Contact Info) Description 07/28/2023 3:00 PM CDT [facility] [address] [place] [address] Nadiya Sparks, PAINT CREW SUPERVISOR RESCHEDULED MISSED VISIT Social History Tobacco Use Types Packs/Day Years Used Date Smoking Tobacco: Every Day Cigarettes 0.5 50.9 Started: 1974 Smokeless Tobacco: Never Alcohol Use Standard Drinks/Week Comments Yes 0 (1 standard drink = 0.6 oz pure alcohol) Occasionally, never a regular drinker Sex and Gender Information Value Date Recorded Sex Assigned at Not on file 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 Gender Identity Not on file Sexual Orientation Not on file documented as of this encounter Plan of Treatment Not on file documented as of this encounter Visit Diagnoses Not on filedocumented in this encounter Care Teams Loading Machine Operator Helper Relationship Specialty Start Date End Date Jorge Espinosa PA [address] [place] [address] PCP - General Physician Slabber Light 04/11/23 Antwon Mirza MD [address] [place] [address] Consulting Physician Medical Oncology 05/04/23 Roland Patel MD [address] [place] [address] Consulting Physician Radiation Oncology 05/04/23 documented as of this encounter
--- OUTSIDE RECORDS SUMMARY | 2024-02-15 11:28 | XMS_ITS | Encounter Summary ---
Author Organization [facility] Address [address] [facility] [place] [address] Phone Care Team Providers Care Backup Operator Name Role Phone Jorge Espinosa Primary Care Provider [phone] Antwon Mirza MD Unavailable [phone] Roland Patel MD Unavailable [phone] Reason for Visit * Auth/Cert (Routine) Specialty Diagnoses / Procedures Referred By Contac t Referred To Contact Referral ID Status Reason Start Date Expiration Date Visits Re quested Visits Authorized [id number] 02 19 Encounter Details Date Type Department Care Team (Late st Contact Info) Description 08/02/2023 Home Care Visit [facility] [address] [place] [address] Joaquin Dorsey, RN [place] TELEPHONE ENCOUNTER Social History Tobacco Use Types Packs/Day Years Used Date Smoking Tobacco: Every Day Cigarettes 0.5 50.9 Started: 1974 Smokeless Tobacco: Never Alcohol Use Standard Drinks/Week Comments Yes 0 (1 standard drink = 0.6 oz pure alcohol) Occasionally, never a regular drinker Sex and Gender Information Value Date Recorded Sex Assigned at Not on file 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 Gender Identity Not on file Sexual Orientation Not on file documented as of this encounter Plan of Treatment Not on file documented as of this encounter Visit Diagnoses Not on filedocumented in this encounter Care Teams Backup Operator Relationship Specialty Start Date End Date Jorge Espinosa PA [address] [place] [address] PCP - General Physician Concentrator Operator 04/11/23 Antwon Mirza MD [address] [place] [address] Consulting Physician Medical Oncology 05/04/23 Roland Patel MD [address] [place] [address] Consulting Physician Radiation Oncology 05/04/23 documented as of this encounter
--- OUTSIDE RECORDS SUMMARY | 2024-02-15 11:28 | XMS_ITS | Encounter Summary ---
Author Organization [facility] Address [address] [facility] [place] [address] Phone Care Team Providers Care Magistrate Judge Name Role Phone Jorge Espinosa Primary Care Provider [phone] Antwon Mirza MD Unavailable [phone] Roland Patel MD Unavailable [phone] Reason for Referral * Radiology Services (Less Than 2 Weeks) - Closed Specialty Diagnoses / Procedures Referred By Contac t Referred To Contact Radiology Diagnoses Dysphagia, unspecified type Procedures XR SWALLOWING FUNCTION STUDY WITH VIDEO/CINE Gillian Bailey [address] [place] [address] Phone: tel: fax: Referral ID Status Reason Start Date Expiration Date Visits Re quested Visits Authorized [id number] Closed 07/27/2023 1 1 Reason for Visit * Reason Onset Date Comments Request MBS 07/27/2023 Encounter Details Date Type Department Care Team (Late st Contact Info) Description 07/27/2023 Telephone [facility] [address] [place] [address] Jorge Espinosa PA [address] [place] [address] [facility] Social History Tobacco Use Types Packs/Day Years Used Date Smoking Tobacco: Every Day Cigarettes 0.5 50.9 Started: 1974 Smokeless Tobacco: Never Alcohol Use Standard Drinks/Week Comments Yes 0 (1 standard drink = 0.6 oz pure alcohol) Occasionally, never a regular drinker Sex and Gender Information Value Date Recorded Sex Assigned at Not on file 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 recommends further imaging. Will you order a Modified Barium Swallow Study (MBSS) at [facility]? (X ray swallow Function Study with video CINE with a speech language pathologist) Thank you, Daniela Rodriguez M.S., [place]-PHYSICAL THERAPIST AIDE, CDP Electronically signed by Daniela Rodriguez PHYSICAL THERAPIST AIDE-SPEECH LANGUAGE PATHOLOGIST at 07/27/2023 1:16 PM CDT documented in this encounter Plan of Treatment Scheduled Orders Name Type Priority Associated Diagnoses Orde r Schedule XR SWALLOWING FUNCTION STUDY WITH VIDEO/CINE Imaging Less Than 2 weeks Dysphagia, unspecified type Expected: 07/27/2023, Expires: 10/27/2023 documented as of this encounter Visit Diagnoses Diagnosis Dysphagia, unspecified type- Primary documented in this encounter Care Teams Magistrate Judge Relationship Specialty Start Date End Date Jorge Espinosa PA [address] [place] [address] PCP - General Physician Steel Layer 04/11/23 Antwon Mirza MD [address] [place], [place] [address] Consulting Physician Medical Oncology 05/04/23 Roland Patel MD [address] [place] [address] Consulting Physician Radiation Oncology 05/04/23 documented as of this encounter
--- OUTSIDE RECORDS SUMMARY | 2024-02-15 11:28 | XMS_ITS | Encounter Summary ---
Author Organization [facility] Address [address] [place] [facility] [address] Phone Care Team Providers Care Geospatial Information Technologist Name Role Phone Jorge Espinosa Primary Care Provider [phone] Antwon Mirza MD Unavailable [phone] Roland Patel MD Unavailable [phone] Reason for Visit * Auth/Cert (Routine) Specialty Diagnoses / Procedures Referred By Contac t Referred To Contact Referral ID Status Reason Start Date Expiration Date Visits Re quested Visits Authorized [id number] 02 19 Encounter Details Date Type Department Care Team (Latest Contact Info) Description 07/15/2023 10:30 AM CDT Home Care Visit [facility] [address] [place] [address] Joaquin Dorsey, RN [place] SN - PRIORITY [...] on file 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 Gender Identity Not on file Sexual Orientation Not on file documented as of this encounter Last Filed Vital Signs Vital Sign Reading Time Taken Comments Blood Pressure 110/64 07/15/2023 12:30 PM CDT Pulse 86 07/15/2023 12:30 PM CDT Temperature 36.7 ??C (98.1 ??F) 07/15/2023 12:30 PM C DT Respiratory Rate 18 07/15/2023 12:30 PM CDT Oxygen Saturation 97% 07/15/2023 12:30 PM CDT Inhaled Oxygen Concentration - - Weight - - Height - - Body Mass Index - - documented in this encounter Plan of Treatment Not on file documented as of this encounter Visit Diagnoses Not on filedocumented in this encounter Home Health Visit - Care Plan Visit Details Visit Type -SN - Priority Vi sit Discipline -Nursing Home Problems Problem Description Start Date Status Goals Interve ntions CANCER Disciplines: Nursing Home Cancer 07/09/2023 Active 1 goal linked to [...] Scheduled documented in this encounter Care Teams Geospatial Information Technologist Relationship Specialty Start Date End Date Jorge Espinosa PA [address] [place] [address] PCP - General Physician Information Assoc 04/11/23 Antwon Mirza MD [address] [place] [address] Consulting Physician Medical Oncology 05/04/23 Roland Patel MD [address] [place] [address] Consulting Physician Radiation Oncology 05/04/23 documented as of this encounter
--- OUTSIDE RECORDS SUMMARY | 2024-02-15 11:28 | XMS_ITS | Encounter Summary ---
Author Organization [facility] Address [address] [place] [address] Phone Care Team Providers Care Chief Program Officer Name Role Phone Jorge Espinosa Primary Care Provider [phone] Antwon Mirza MD Unavailable [phone] Roland Patel MD Unavailable [phone] Reason for Visit * Auth/Cert (Routine) Specialty Diagnoses / Procedures Referred By Contac t Referred To Contact Referral ID Status Reason Start Date Expiration Date Visits Re quested Visits Authorized [id number] Encounter Details Date Type Department Care Team (Late st Contact Info) Description 07/22/2023 10:30 AM CDT Home Care Visit [facility] [address] [place] [address] Gabby Diamond OTA [place] OT - HOME VISIT Social History Tobacco Use Types Packs/Day Years Used Date Smoking Tobacco: Every Day Cigarettes 0.5 50.9 Started: 1974 Smokeless Tobacco: Never Alcohol Use Standard Drinks/Week Comments Yes 0 (1 standard drink = 0.6 oz pure alcohol) Occasionally, never a regular drinker Sex and Gender Information Value Date Recorded Sex Assigned at Not on file 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 Patient Centered Alf Goal: safely get in the tub/shower Target date: 08/05/23 OCCUPATIONAL THERAPY GENERAL ORDER (O) No OT Bathing Description: Short Term Goal: Patient will complete total body bathing at tub level while sitting with tub bench and grab bars with independence and good understanding of safety/technique. To be met by 08/05/23. OT COMPREHENSIVE No OT Activity Tolerance Description: Short Term Goal: Patient to demonstrate increased activity tolerance with a pulse ox reading of > or = to 90% to perform ADLs at sitting level. To be met by 08/05/23. OT COMPREHENSIVE No OT Home Exercise Program Description: Short Term [...] every and Radiotherapy Tuesday through Tuesday at [facility] cancer, and has had a 10 % [...] HEP, and energy conservation Patient and Gillian Bailey, PAC are in agreement with plan of care. Perform pulse oximetry PRN for intermittent assessment and/ or respiratory distress. Problem:OCCUPATIONAL THERAPY GENERAL ORDER (O) Goal:Occupational Therapy General Completed OT Bathing Description: Instruct on bathing techniques and safety. ADL equipment as needed. Problem:OT COMPREHENSIVE Goal:OT Bathing Completed Patient education on bathing for total body at shower level while sitting with verbal cues and good verbal understanding Caregiver training provided for NA. Skill provided to improve this function consisted of Pt education on task specific energy conservation techniques for shower including collect all needed items prior to starting task, complete task while seated, keep all needed items at easy reach, limit or avoid arms over head and bending, demonstration of hair washing technique to keep arms bent and head slightly forward with good understanding with simulation teachback, monitor humidity in the room with good ventilation, dry off access water then use robe to absorb dampness prior to dresssing, complete task at slow pace and increase rest breaks throughout task completion. Pt displayed good understanding of education this date. Compliance of follow through is good. Progress toward goal: ongoing OT Activity Tolerance Description: Instruct on activity tolerance techniques. Problem:OT COMPREHENSIVE Goal:OT Activity Tolerance Completed Patient performed BUE HEP task for 10 minutes while taking brief rest break between each exercise.The Modified LIO score with this task is 3-4/10. Skill provided to improve this function consisted of Pt completed 1x10 reps BUE HEP with education on counting outloud to promote good breathing and maximize tolerance. Pt displayed good tolerance to HEP with O2 remaining at 95% or above and minimal exertion. Compliance of follow through is good. Progress toward goal: ongoing OT Home Exercise Program Description: Instruct on Home Exercise Program. Problem:OT COMPREHENSIVE Goal:OT Home Exercise Program Completed Patient performed UE ROM and UE Strengthening HEP with stand by assist and good activity tolerance. Caregiver training provided NA. Skill provided to improve this function consisted of Pt issued BUE HEP with visual demonstration for technique education while also following handout. Pt completed 1x10 reps BUE HEP including scapular elevation, protraction/retracti on, shoulder flex/ext, shoulder abd/add, horizontal abd/add, internal/external rotation, elbow flex, forearm supination/pronation , wrist flex/ext, and digit flex/ext with visual demonstration for technique while following handout. Pt education on good breathing technique to count outloud and to alternate proximal and distal movement in order to maximize tolerance to exercises. Pt displayed good understanding to recommended daily instruction of 1x 10-20 2x daily reps with slow increase of reps each day as tolerated. Pt O2 remained at 95% or higher throughout HEP completion. Compliance of follow through is good. Progress toward goal: ongoing documented in this encounter Care Teams Chief Program Officer Relationship Specialty Start Date End Date Jorge Espinosa PA [address] [place] [address] PCP - General Physician Technical Data Analyst 04/11/23 Antwon Mirza MD [address] [place] [address] Consulting Physician Medical Oncology 05/04/23 Roland Patel MD [address] [place] [address] Consulting Physician Radiation Oncology 05/04/23 documented as of this encounter
--- OUTSIDE RECORDS SUMMARY | 2024-02-15 11:28 | XMS_ITS | Encounter Summary ---
Author Organization [facility] Address [address] [facility] [place] [address] Phone Care Team Providers Care Making Line Worker Name Role Phone Jorge Espinosa Primary Care Provider [phone] Antwon Mirza MD Unavailable [phone] Roland Patel MD Unavailable [phone] Reason for Visit * Auth/Cert (Routine) Specialty Diagnoses / Procedures Referred By Contac t Referred To Contact Referral ID Status Reason Start Date Expiration Date Visits Re quested Visits Authorized [id number] Encounter Details Date Type Department Care Team (Late st Contact Info) Description 07/25/2023 2:30 PM CDT Home Care Visit [facility] [address] [place] [address] Daniela Rodriguez, VALVE SEATER OPERATOR-SPEECH LANGUAGE PATHOLOGIST [place] VALVE SEATER OPERATOR - HOME VISIT Social History Tobacco Use Types Packs/Day Years Used Date Smoking Tobacco: Every Day Cigarettes 0.5 50.9 Started: 1974 Smokeless Tobacco: Never Alcohol Use Standard Drinks/Week Comments Yes 0 (1 standard drink = 0.6 oz pure alcohol) Occasionally, never a regular drinker Sex and Gender Information Value Date Recorded Sex Assigned at Not on file 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 Gender Identity Not on file Sexual Orientation Not on file documented as of this encounter Last Filed Vital Signs Vital Sign Reading Time Taken Comments Blood Pressure 150/72 07/25/2023 3:16 PM CDT Pulse 76 07/25/2023 3:16 PM CDT Temperature - - Respiratory Rate - - Oxygen Saturation 95% 07/25/2023 3:16 PM CDT Inhaled Oxygen Concentration - - Weight - - Height - - Body Mass Index - - documented in this encounter Plan of Treatment Not on file documented as of this encounter Visit Diagnoses Not on filedocumented in this encounter Home Health Visit - Care Plan Visit Details Visit Type -VALVE SEATER OPERATOR - HOME VISIT Discipline -Speech Language Pathology Problems Problem Description Start Date Status Goals Interve ntions FALL PREVENTION (O) Disciplines: SN, PT, OT, VALVE SEATER OPERATOR, HCA, PAPER CONE MAKER, RT 07/09/2023 Active 1 goal linked to [...] oral intake to be met by 08/20/23 Operating Engineer Apprentice Goals Patient will retuirn demonstrate oral/pharyngeal/laryngeal exercises [...] goals the following were identified: Patient Centered Care Home Goal: Get rid of this tube. Target [...] Skilled intervention targeting swallowing dysfunction included: ST facilitated Pt participation in functional swallow exercises of Effortful Swallow swallow exercise. ST attempted to utilzied Visual Analog Scale (VAS) to assist Pt with ID of how much effort to give with Pt reporting he has a hard time assigning a number. Pt completed 50 reps of efforftul swallow. ST trained Home Exercise Program (HEP) for swallowing with handouts given. ST trained safe swallow strategies of slow rate, small bites, multiple swallows/liquid wash to clear, effortful swallow. ST trained aspiration precautions of oral care for prevention of aspiration PNA. ?? Liquid/Solid Trials: thin liquids completed ?? Pharyngeal phase characteristics: suspected pharyngeal impairment, appearance of consistent laryngeal elevation, immediate cough response and reflexive cough response Pt completed given exercise with a reported 6/10 effort. Safe swallow strategies completed with 60% accuracy. Skilled therapeutic techniques utilized in this session include: [ X ] Fading cueing hierarchy [ X ] Trained safe swallow strategies [ X ] Verbal cues [ X ] Visual models/cues [ X ] Repetition [ X ] Trained aspiration precautions [ X ] Verbal reinforcement/feedba ck [ X ] HEP training ___ [employer] Handout provided: Effortful Swallow The goal of this exercise and compensatory strategy is to improve muscle strength by improving the force and timing of your swallow. Directions 1. Swallow normally, but tightly squeeze your tongue and throat muscles throughout the swallow. 2. Try to swallow with as much effort as you can. 3. Complete Effortful swallows when having pleasure/comfort trials Explanation The muscles of your tongue and pharynx work together to help you swallow properly. By swallowing with as much effort as possible, you can improve strength, timing of your swallow, and coordination when swallowing. Speech Therapy General (Order Only) Description: Clinical findings: History: Pt is a 63 y.o. 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 PEG placed 04/07/23. Pt is being treated by Dr. Zayas at [facility] with SUPERINTENDENT CONSTRUCTION. Pt was referred to ST for dysphagia. [facility] bedside swallow evaluation: The Mora Assessment of [...] strategies. Other contributing issues: Pt is receiving SUPERINTENDENT CONSTRUCTION but states that he misses many visits due to not feeling well and transportation issues. ST to request repeat Modified Barium Swallow Study (MBSS). Pulse Oximetry PRN for shortness of breath and assessment of respiratory status. Problem:SPEECH THERAPY EVALUATION Goal:Speech Therapy Evaluation Completed documented in this encounter Care Teams Making Line Worker Relationship Specialty Start Date End Date Jorge Espinosa PA [address] [place] [address] PCP - General Physician Crossing Gateman 04/11/23 Antwon Mirza MD [address] [place] [address] Consulting Physician Medical Oncology 05/04/23 Roland Patel MD [address] [place] [address] Consulting Physician Radiation Oncology 05/04/23 documented as of this encounter
--- OUTSIDE RECORDS SUMMARY | 2024-02-15 11:28 | XMS_ITS | Encounter Summary ---
Author Organization [facility] Address [address] [facility] [place] [address] Phone Care Team Providers Care Hand Mold Maker Name Role Phone Jorge Espinosa Primary Care Provider [phone] Antwon Mirza MD Unavailable [phone] Roland Patel MD Unavailable [phone] Reason for Visit * Auth/Cert (Routine) Specialty Diagnoses / Procedures Referred By Contac t Referred To Contact Referral ID Status Reason Start Date Expiration Date Visits Re quested Visits Authorized [id number] Encounter Details Date Type Department Care Team (Late st Contact Info) Description 07/27/2023 10:00 AM CDT Home Care Visit [facility] [address] [place] [address] Gabby Diamond OTA [place] OT - HOME VISIT Social History Tobacco Use Types Packs/Day Years Used Date Smoking Tobacco: Every Day Cigarettes 0.5 50.9 Started: 1974 Smokeless Tobacco: Never Alcohol Use Standard Drinks/Week Comments Yes 0 (1 standard drink = 0.6 oz pure alcohol) Occasionally, never a regular drinker Sex and Gender Information Value Date Recorded Sex Assigned at Not on file 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 Gender Identity Not on file Sexual Orientation Not on file documented as of this encounter Last Filed Vital Signs Vital Sign Reading Time Taken Comments Blood Pressure 140/70 07/27/2023 10:26 AM CDT Pulse 68 07/27/2023 10:26 AM CDT Temperature 36.4 ??C (97.6 ??F) 07/27/2023 10:26 AM C DT Respiratory Rate 18 07/27/2023 10:26 AM CDT Oxygen Saturation 95% 07/27/2023 10:26 AM CDT Inhaled Oxygen Concentration - - [...] OT COMPREHENSIVE Disciplines: Occupational Therapy 07/15/2023 Active 2 goals linked to scheduled/document ed interventions 2 goal interventions scheduled/document ed in this visit Goals Goal Associated Problem Outcome Goal Met? Visit Notes Occupational Therapy General Description: After assessing the patient and discussing the patient's goals the following were identified. Patient Centered Half-Way Goal: safely get in the tub/shower Target [...] every and Radiotherapy Tuesday through Tuesday at [facility] cancer, and has had a 10 % [...] for intermittent assessment and/ or respiratory distress. Problem:OCCUPATIONA L THERAPY GENERAL ORDER (O) Goal:Occupational Therapy General Completed OT Bathing Description: Instruct on bathing techniques and safety. ADL equipment as needed. Problem:OT COMPREHENSIVE Goal:OT Bathing Patient refused Pt declined secondary to report of increased weakness, fatigue and restless nights sleep. OT Transfers Description: Instruct on transfer techniques and safety. Equipment as needed. Problem:OT COMPREHENSIVE Goal:OT Transfers Completed Patient and CG education on shower transfer with adaptive equipment of tub transfer bench with verbal cues and good verbal understanding. Skill provided to improve this function consisted of Pts daughter education on safety and EC benefits with use of recommended tub transfer bench. Education on current process of requesting MD order. Call to Jyotsna at Dr. Hermes M.D. office to request order for tub transfer bench to be sent to [facility]. Jyotsna will send message to charge nurse to address with MD. 07/19/2023 OT Home visit documentation sent to Dr. Mirza's office via fax stating skilled need for DME. Compliance of follow through is fair. Progress toward goal: ongoing documented in this encounter Home Health Visit - Actions and Narratives Actions Call to Jyotsna at Dr. Hermes M.D. office to request order for tub transfer bench to be sent to [facility] [employer]. Jyotsna will send message to charge nurse to address with MD. 07/19/2023 OT Home visit documentation sent to Dr. Mirza's office via fax stating skilled need for DME. documented in this encounter Care Teams Hand Mold Maker Relationship Specialty Start Date End Date Jorge Espinosa PA [address] [place] [address] PCP - General Physician Kalsominer 04/11/23 Antwon Mirza MD [address] [place] [address] Consulting Physician Medical Oncology 05/04/23 Roland Patel MD [address] [place] [address] Consulting Physician Radiation Oncology 05/04/23 documented as of this encounter
--- OUTSIDE RECORDS SUMMARY | 2024-02-15 11:29 | XMS_ITS | Encounter Summary ---
Author Organization [facility] Care Team Providers Care Stock Holder Name Role Phone Jorge Espinosa Primary Care Provider [phone] Antwon Mirza MD Unavailable [phone] Roland Patel MD Unavailable [phone] Encounter Details Date Type Department Care Team (Latest Contact Info) Description 07/08/2023 Travel Social History Tobacco Use Types Packs/Day Years Used Date Smoking Tobacco: Every Day Cigarettes 0.5 50.9 Started: 1973 Smokeless Tobacco: Never Alcohol Use Standard Drinks/Week Comments Yes 0 (1 standard drink = 0.6 oz pure alcohol) Occasionally, never a regular drinker Sex and Gender Information Value Date Recorded Sex Assigned at Not on file Legal Sex Male 3:34 PM TOOL AND DIE MAKER/DESIGNER Gender Identity Not on file Sexual Orientation Not on file documented as of this encounter Plan of Treatment Not on file documented as of this encounter Visit Diagnoses Not on filedocumented in this encounter Care Teams Stock Holder Relationship Specialty Start Date End Date Jorge Espinosa PA [address] [place] [address] PCP - General Physician Data Migration Lead 04/11/23 Antwon Mirza MD [address] [place] [address] Consulting Physician Medical Oncology 05/04/23 Roland Patel MD [address] [place] [address] Consulting Physician Radiation Oncology 05/04/23 documented as of this encounter
--- OUTSIDE RECORDS SUMMARY | 2024-02-15 11:29 | XMS_ITS | Encounter Summary ---
Author Organization [facility] Address [address] [place] [address] Phone Care Team Providers Care Ballpoint Pen Assembly Machine Operator Name Role Phone Jorge Espinosa Primary Care Provider [phone] Antwon Mirza MD Unavailable [phone] Roland Patel MD Unavailable [phone] Reason for Visit * Episode Based Medications (Routine) - Authorized Specialty Diagnoses / Procedures Referred By Contac t Referred To Contact Diagnoses Oropharyngeal cancer (HCC) Antwon Mirza MD [address] [place] [address] Phone: tel: fax: [facility] [address] [place] [address] Phone: tel: fax: Referral ID Status Reason Start Date Expiration Date V isits Requested Visits Authorized [id number] Authorized 05/09/2023 1 24 Encounter Details Date Type Department Care Team (Latest Contact Info) Description 06/23/2023 1:30 PM CDT Clinical Support [facility] [address] [place] [address] Antwon Mirza MD [address] [place] [address] Oropharyngeal cancer (HCC) (Primary Dx) Discharge Disposition: Discharged to home or Selfcare [...] on file Legal Sex Male 3:34 PM COUNTER CONTROL OPERATOR Gender Identity Not on file Sexual Orientation Not on file documented as of this encounter Last Filed Vital Signs Vital Sign Reading Time Taken Comments Blood Pressure - - Pulse - - Temperature - - Respiratory Rate - - Oxygen Saturation - - Inhaled Oxygen Concentration - - Weight 42.9 kg (94 lb 8 oz) 06/23/2023 1:28 PM C DT Height - - Body Mass Index 15.49 06/20/2023 1:13 PM CDT documented in this encounter Miscellaneous Notes * Interdisciplinary - Kamila Barron RN - 06/23/2023 1:30 PM CDT Pt ambulated into lab room in stable condition. Labs drawn per MD orders peripherally x1 attempt. Site secured. Pt states that he is not able to get treatment this week due to not having his rides. made aware. Pt discharged in stable condition. documented in this encounter Plan of Treatment Not on file documented as of this encounter Procedures Procedure Name Priority Date/Time Associated Diagnosis Comments CBC WITH AUTO DIFFERENTIAL STAT 06/23/2023 1:10 PM CDT Oropharyngeal cancer (HCC) MAGNESIUM (MG) STAT 06/23/2023 1:10 PM CDT Oropharyngeal cancer (HCC) CMP (COMPREHENSIVE METABOLIC PANEL) STAT 06/23/2023 1:10 PM CDT Oropharyngeal cancer (HCC) COMPLETE BLOOD COUNT (CBC) WITH DIFF STAT 06/23/2023 1:10 PM CDT Oropharyngeal cancer (HCC) documented in this encounter Results * (ABNORMAL) CBC WITH AUTO DIFFERENTIAL (06/23/2023 1:10 PM CDT) [facility] WBC 4.99 4.00 - 12.00 10(3)/mcL 06/23/2023 1:21 PM CDT [facility] RBC 4.40 4.40 - 5.80 10(6)/mcL 06/23/2023 1:21 PM CDT [facility] HEMOGLOBIN (HGB) 11.8(L) 13.0 - 16.5 g/dL 06/23/2023 1:21 PM CDT [facility] HEMATOCRIT (HCT) 36.8(L) 38.0 - 50.0 % 06/23/2023 1:21 PM CDT [facility] MCV 83.6 82.0 - 96.0 fL 06/23/2023 1:21 PM CDT [facility] MCH 26.8 26.0 - 32.0 pg 06/23/2023 1:21 PM CDT [facility] MCHC 32.1 31.0 - 36.0 g/dL 06/23/2023 1:21 PM CDT [facility] PLATELET COUNT 315 140 - 440 10(3)/mcL 06/23/2023 1:21 PM CDT [facility] RDW 16.0(H) 11.8 - 15.5 % 06/23/2023 1:21 PM CDT [facility] MPV 8.3 8.0 - 12.6 fL 06/23/2023 1:21 PM CDT [facility] NEUTROPHILS 75.6(H) 40.0 - 68.0 % 06/23/2023 1:21 PM CDT [facility] LYMPHOCYTES 10.8(L) 19.0 - 49.0 % 06/23/2023 1:21 PM CDT [facility] MONOCYTES 11.2 3.0 - 13.0 % 06/23/2023 1:21 PM CDT [facility] EOSINOPHILS 1.8 0.0 - 8.0 % 06/23/2023 1:21 PM CDT [facility] BASOPHILS 0.6 0.0 - 1.0 % 06/23/2023 1:21 PM CDT [facility] ABSOLUTE NEUTROPHILS 3.77 1.40 - 5.30 10(3)/[facility] 06/23/2023 1:21 PM CDT [facility] ABSOLUTE LYMPHOCYTES 0.54(L) 0.90 - 3.30 10(3)/[facility] 06/23/2023 1:21 PM CDT [facility] ABSOLUTE MONOCYTES 0.56 0.10 - 0.90 10(3)/[facility] 06/23/2023 1:21 PM CDT [facility] ABSOLUTE EOSINOPHIL 0.09 0.00 - 0.50 10(3)/[facility] 06/23/2023 1:21 PM CDT [facility] ABSOLUTE BASOPHILS 0.03 0.00 - 0.10 10(3)/[facility] 06/23/2023 1:21 PM CDT [facility] NRBC PER 100 WBC 0 06/23/19 1:21 PM CDT [facility] Blood Venipuncture / Unknown 06/23/2023 1:10 PM CDT 06/23/2023 1:10 PM CDT us Antwon Mirza MD HEMATOLOGY ORDERABLES Fi nal Result [facility] [address] [place] [address] * (ABNORMAL) CMP (COMPREHENSIVE METABOLIC PANEL) (06/23/2023 1:10 PM CDT) SODIUM 135(L) 136 - 145 mmol/L 06/23/2023 1:53 PM CDT [facility] POTASSIUM 3.0(L) 3.5 - 5.1 mmol/L 06/23/2023 1:53 PM CDT [facility] CHLORIDE 93(L) 98 - 107 mmol/L 06/23/2023 1:53 PM CDT [facility] CO2, VENOUS 35(H) 22 - 30 mmol/L 06/23/2023 1:53 PM CDT [facility] ANION GAP 10.0 <18.0 mmol/L 06/23/2023 1:53 PM CDT [facility] GLUCOSE 92 70 - 99 mg/dL 06/23/2023 1:53 PM CDT [facility] BUN 7(L) 8 - 26 mg/dL 06/23/2023 1:53 PM T [facility] CREATININE, BLOOD 0.60(L) 0.70 - 1.30 mg/dL 06/23/2023 1:53 PM T [facility] BUN/CREATININE RATIO 12 12 - 20 ratio 06/23/2023 1:53 PM T [facility] TOTAL PROTEIN 7.0 6.3 - 8.2 g/dL 06/23/2023 1:53 PM T [facility] ALBUMIN 3.0(L) 3.5 - 5.0 g/dL 06/23/2023 1:53 PM T [facility] A/G RATIO 0.8(L) 1.0 - 2.2 06/23/2023 1:53 PM T [facility] CALCIUM 8.6(L) 8.7 - 10.5 mg/dL 06/23/2023 1:53 PM T [facility] T BILI 0.2 0.2 - 1.2 mg/dL 06/23/2023 1:53 PM T [facility] SGOT (AST) 57(H) 5 - 34 U/L 06/23/2023 1:53 PM T [facility] SGPT (ALT) 40 0 - 55 U/L 06/23/2023 1:53 PM T [facility] ALKALINE PHOSPHATASE 82 40 - 150 U/L 06/23/2023 1:53 PM T [facility] IS THE PATIENT REQUIRED TO BE FASTING? No 06/23/2023 1:53 PM CDT [facility] GFR, ESTIMATED >60 >=60 06/23/2023 1:53 PM CDT [facility] Comment: Creatinine Clearance is the preferred criteria for selecting drug dose adjustments in renally impaired patients. ??The GFR is provided as additional pertinent clinical information. GFR is reported in mL/min/1.73 sq m. Calculation based on the Chronic Kidney Disease Epidemiology Collaboration (CKD- EPI) equation refit without adjustment for race. GFR, EST. >60 >=60 024 1:53 PM CDT [facility] GFR, EST. NONAFRICAN >60 >=60 06/23/2023 1:53 PM CDT [facility] Blood Venipuncture / Unknown 06/23/2023 1:10 PM CDT 06/23/2023 1:10 PM CDT Antwon Mirza MD CHEMISTRY ORDERABLES Fin al Result Performing Organization Address City/[facility] Co de Phone Number [facility] [address] [place] [address] * MAGNESIUM (MG) (06/23/2023 1:10 PM CDT) MAGNESIUM 2.0 1.6 - 2.6 mg/dL 06/23/2023 1:53 PM CDT [facility] Blood Venipuncture / Unknown 06/23/2023 1:10 PM CDT 06/23/2023 1:10 PM CDT Antwon Mirza MD CHEMISTRY ORDERABLES Fin al Result Performing Organization Address City/[facility]/ZIP Co de Phone Number [facility] [address] [place] [address] documented in this encounter Visit Diagnoses Diagnosis Oropharyngeal cancer (HCC)- Primary Malignant neoplasm of oropharynx, unspecified site documented in this encounter Care Teams Ballpoint Pen Assembly Machine Operator Relationship Specialty Start Date End Date Jorge Espinosa PA [address] [place] [address] PCP - General Physician Geothermal Operations Manager 04/11/23 Antwon Mirza MD [address] [place] [address] Consulting Physician Medical Oncology 05/04/23 Roland Patel MD [address] [place] [address] Consulting Physician Radiation Oncology 05/04/23 documented as of this encounter
--- OUTSIDE RECORDS SUMMARY | 2024-02-15 11:29 | XMS_ITS | Encounter Summary ---
Author Organization [facility] Address [address] [facility] 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 Feet bilaterally 3+ edema no swelling above the ankles or other extremities. Patient states G tube feeding are going well he is feeding 6 carton per day and flushes with no issues. Per Dr Mirza patient to start Spironolactone 50mg BID and elevate feet when sitting. Patient verbalized understanding all instructions provided and will call office with any additionalconcerns or questions. documented in this encounter Plan of Treatment Not on file documented as of this encounter Procedures Procedure Name Priority Date/Time Associated Diagnosis Comments RAD ONC ARIA SESSION SUMMARY Routine 07/08/2023 1:35 PM CDT Oropharyngeal cancer (HCC) documented in this encounter Results * RAD ONC ARIA SESSION SUMMARY (07/08/2023 1:35 PM CDT) Course ID C1 ARIA RO MODEL Course Intent Curative w/chemo ARIA RO MODEL Course Start Date 05/06/2023 11:27 AM ARIA RO MODEL Session Number 23 ARIA RO MODEL Course End Date 05/12/2023 9:16 AM ARIA RO MODEL Course Last Treatment Date 07/08/2023 1:36 PM ARIA RO MODEL Course Elapsed Days 57 ARIA RO MODEL Reference Point ID [id number] ARIA RO MODEL Reference Point Dosage Given to Date [id number] Gy ARIA RO MODEL Reference Point Session Dosage Given [id number] Gy ARIA RO MODEL Plan ID [id number] ARIA RO MODEL Plan Name Oropharynx & Nodes_70Gy ARIA RO MODEL Energy 6X ARIA RO MODEL Plan Fractions Treated to Date 23 ARIA RO MODEL Plan Total Fractions Prescribed 35 ARIA RO MODEL Plan Prescribed Dose Per Fraction 2 Gy ARIA RO MODEL Plan Total Prescribed Dose 7,000 cGy ARIA RO MODEL Plan Primary Reference Point [email or web address] ARIA RO MODEL 07/08/2023 1:35 PM CDT us Unknown Provider RADIATION ONCOLOGY ORDERABLES F inal Result ARIA RO MODEL [address] [place] [address] documented in this encounter Visit Diagnoses Diagnosis Oropharyngeal cancer (HCC)- Primary Malignant neoplasm of oropharynx, unspecified site documented in this encounter Care Teams Adapted Physical Education Aide Relationship Specialty Start Date End Date Jorge Espinosa PA [address] [place] [address] PCP - General Physician Inspector Aluminum Boat 04/11/23 Antwon Mirza MD [address] [place] [address] Consulting Physician Medical Oncology 05/04/23 Roland Patel MD [address] [place] [address] Consulting Physician Radiation Oncology 05/04/23 documented as of this encounter
--- OUTSIDE RECORDS SUMMARY | 2024-02-15 11:29 | XMS_ITS | Encounter Summary ---
Author Organization [employer] Care Team Providers Care Manufacturing Manager Name Role Phone Jorge Espinsoa Primary Care Provider [phone] Antwon Mirza MD Unavailable [phone] Roland Patel MD Unavailable [phone] Encounter Details Date Type Department Care Team (Latest Contact Info) Description 07/09/2023 Travel Social History Tobacco Use Types Packs/Day Years Used Date Smoking Tobacco: Every Day Cigarettes 0.5 50.9 Started: 1974 Smokeless Tobacco: Never Alcohol Use Standard Drinks/Week Comments Yes 0 (1 standard drink = 0.6 oz pure alcohol) Occasionally, never a regular drinker Sex and Gender Information Value Date Recorded Sex Assigned at Not on file 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
--- OUTSIDE RECORDS SUMMARY | 2024-02-15 11:29 | XMS_ITS | Encounter Summary ---
Author Organization [facility] Address [address] [facility] 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 Gender Identity Not on file Sexual Orientation Not on file documented as of this encounter Plan of Treatment Not on file documented as of this encounter Visit Diagnoses Not on filedocumented in this encounter Care Teams Cable Cutter And Swager Relationship Specialty Start Date End Date Jorge Espinosa PA [address] [place] [address] PCP - General Physician Apparel Machinery Instructor 04/11/23 Antwon Mirza MD [address] [place] [address] Consulting Physician Medical Oncology 05/04/23 Roland Patel MD [address] [place] [address] Consulting Physician Radiation Oncology 05/04/23 documented as of this encounter
--- OUTSIDE RECORDS SUMMARY | 2024-02-15 11:29 | XMS_ITS | Encounter Summary ---
Author Organization [facility] Address [address] [facility] [place] [address] Phone Care Team Providers Care Deployment Engineer Name Role Phone Jorge Espinosa Primary Care Provider [phone] Antwon Mirza MD Unavailable [phone] Roland Patel MD Unavailable [phone] Reason for Referral * Home Health Evaluation (Routine) - Closed Specialty Diagnoses / Procedures Referred By Contbisi t Referred To Contact Home Health Services Diagnoses Oropharyngeal cancer (HCC) Unintentional weight loss of more than 10% body weight within 6 months Cellulitis of abdominal wall Gillian Bailey PAC [address] [place] [address] Phone: tel: fax: [address] [address] Phone: tel: fax: Referral ID Status Reason Start Date Expiration Date Visits Re quested Visits Authorized [id number] Closed 07/06/2023 1 1 Reason for Visit * Reason Comments Follow-up Encounter Details Date Type Department Care Team (Late st Contact Info) Description 07/06/2023 1:15 PM CDT Office Visit [facility] Oncology Services [address] [place] [phone] Antwon Mirza MD [address] [place] [address] Gillian Bailey, PAC [address] [facility] [place] [address] Oropharyngeal cancer (HCC) (Primary Dx); Patient on combined chemotherapy and radiation; Unintentional weight loss of more than 10% body weight within 6 months; Cellulitis of abdominal wall Discharge Disposition: Discharged to home or Selfcare [...] on file 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 Gender Identity Not on file Sexual Orientation Not on file documented as of this encounter Last Filed Vital Signs Vital Sign Reading Time Taken Comments Blood Pressure 160/73 07/06/2023 1:30 PM CDT Pulse 67 07/06/2023 1:30 PM CDT Temperature 36.1 ??C (97 ??F) 07/06/2023 1:30 PM CDT Respiratory Rate 16 07/06/2023 1:30 PM CDT Oxygen Saturation 99% 07/06/2023 1:30 PM CDT Inhaled Oxygen Concentration - - Weight 37.2 kg (82 lb) 07/06/2023 1:30 PM CDT Height - - Body Mass Index 13.44 06/20/2023 1:13 PM CDT documented in this encounter Patient Instructions * Patient Instructions* Gillian Bailey PAC - 07/06/2023 1:15 PM CDT Encouraged to continue nutritional supplement 4- 5 cartons per day. Was encouraged to increase water consumption to at least 4 bottles per day. Was encouraged to comply with treatments. May have IV fluids with follow up appointments if feeling weak. Will attempt to schedule home health to assist with management of stoma and monitoring for weight loss Wash area around stoma twice daily with mild soap and water. Use antibiotic ointment sparingly twice daily as directed. Keep appointment for chemotherapy tomorrow. documented in this encounter Progress Notes * Gillian Bailey PAC - 07/06/2023 1:15 PM CDT Outpatient Hem/Onc Progress Note Aleksey Godfrey Sr. is a 63 y.o. male who presents for 6 week follow-up for oropharyngeal cancer. Reports weight loss, malaise and fatigue. Does have episodes of lightheadedness with position changes. States will get up and just not have the energy to go. Denies nausea, vomiting or diarrhea. Deniesany pain related to his cancer. Does have some discomfort to the skin area around his PEG tube. States he is doing his nutritional supplements 4-5 cartons per day. Reports is trying to take an oral liquids and nutrition with fair success. Reviewed barriers to care, most significant barrier he reports has been transportation. States there have been times when transport as got there and he has beentoo weak to go to the car. Also expresses some concern about the care of his granddaughter after she completed the school year but reports they have been able to find a consulting hr professional. 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 Aleksey recalls Niece voiced concerns roughly 12 months ago, as she was only seeing him few times per year. Patient recalls experiencing syncopal event prior to presenting to [facility] via [facility]. He recites prior to LOC he was experiencing hemoptysis with increase in blood expressed withcough as episode continued. He was transferred from [facility] to [facility] after CT neck showed large mass arising from base of tongue, floor of mouth, GTS, lingual mandible. Patient returned home that night with plans for ENT evaluation outpatient. Prior to evaluation by ENT patient returned to hospital on 03/23/23 with hemoptysis, losing roughly 1 pint of blood. CTA Neck identified large ulcerative L oropharyngeal neck mass 7.2x4.3x3.3cm highly suspicious for malignancy such as SCC involvingL parapharyngeal, vehicle maintenance supervisor, submandibular, sublingual spaces with ossesous involvement of L mandible; no e/o active extravasation. CXR with L hemidiaphragm, mild L basilar reticular nodular opacities c/f atelectasis vs bronchiolitis related to aspiration. ENT consulted. Patient underwent biopsy with NGT placement on 03/25. 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 Patient underwent PET-CT on 03/30 which showed known L oropharynx mass, probable metastaticleft level IIa lymph node and mildly hypermetabolic right supraclavicular lymph node suspicious fornodal metastasis, and aspiration pneumonia in the bilateral lung bases with likely reactive mediastinal and hilar lymph nodes. Case was discussed at ENT tumor board, who ultimately decided on chemoradiation without surgical intervention at this time. Aleksey attempted to establish care with [facility], unfortunately out of network with his insurance. -- Patient started XRT on 05/13/[address] simulation on 05/12/23. --05/12/23 patient started Cetuximab 600 mg infusion planned for weekly treatments concurrent with radiation therapy. Initial plan was to give him Q 3 weekly cisplatin however due to decline in performance status, poor intake, continued weight loss, decision made to switch to cetuximab weekly ALLERGIES: Allergies Allergen Reactions Bee Venom Unknown MEDICATIONS: Current Outpatient Medications Medication Sig Dispense Refill Ferrous Sulfate (IRON PO) 15 mL by Enteral route. lidocaine (LIDODERM) 5 % Patch 1 Patch by Transdermal route every 12 hours. lisinopril (PRINIVIL, ZESTRIL) 10 MG Tablet 10 mg by Enteral route daily. mupirocin (BACTROBAN) 2 % Ointment Apply 2 times daily for 10 days. Apply sparingly to area around PEG tube twice daily for 10 days. 15 g 1 nicotine (Nicotine Step 1) 21 MG/24HR PATCH 24 HR 1 Patch by Transdermal route every 24 hours. 30 Patch 0 nortriptyline (PAMELOR) 10 MG Capsule nightly. ondansetron (Zofran) 8 MG Tablet Take 1 Tablet by mouth every 8 hours as needed for Nausea - 1st line. 20 Tablet 2 ondansetron (ZOFRAN-ODT) 4 MG TABLET DISPERSIBLE Take 4 mg by mouth every 8 hours as needed. oxyCODONE (ROXICODONE) 5 MG/5ML Solution Take 5 mL by mouth every 6 hours as needed for Severe pain. 450 mL 0 prochlorperazine (COMPAZINE) 10 MG Tablet Take 1 Tablet by mouth every 6 hours as needed for Nausea- 2nd line. 40 Tablet 2 No current facility-administered medications for this visit. Facility-Administered Medications Ordered in Other Visits Medication Dose Route Frequency Provider Last Rate Last Admin 0.9 % sodium chloride solution Intravenous Continuous Antwon Mirza MD 999 mL/hr at 07/06/23 1335 New Bag at 07/06/23 1335 DIPHENHYDRAMINE HCL 50 MG/ML IJ SOLN FAMOTIDINE (PF) 20 MG/2ML IV SOLN METHYLPREDNISOLONE NA SUC (PF) 125 MG IJ SOLR PMS/H: Past Medical History Positives Diagnosis Date Edentulous 2021 His remaining natural dentition was removed in 2020 or 2021. Hypertension Past Surgical History: Procedure Laterality Date APPENDECTOMY 2018 Appendix did not rupture. Surgery was while he was living in [place]. GASTROSTOMY TUBE PLACEMENT N/A 03/28/2023 Initial placement of percutaneous balloon assisted gastrostomy catheter with procedure at [facility]. GASTROSTOMY TUBE PLACEMENT N/A 03/29/2023 Percutaneous fluoroscopic pull type gastrostomy catheter placement after gastrostomy tube placed 03/28/2023 fell out overnight. Procedure at [facility]. LARYNGOSCOPY,DIRCT,OP,BIOPSY N/A 03/25/2023 Direct laryngoscopy and biopsy 03/25/2023 in the OR at [facility] confirming p16+ squamous cell carcinoma of the left oropharynx. SOCIAL: Social History Socioeconomic History Marital status: Legally Spouse name: Not on file Number of children: Not on file Years of education: Not on file Highest education level: Not on file Occupational History Not on file Tobacco Use Smoking status: Every Day Packs/day: 0.50 Years: 50.00 Additional pack years: 0.00 Total pack years: 25.00 Types: Cigarettes Start date: 1973 Smokeless tobacco: Never Vaping Use Vaping Use: Never used Substance and Sexual Activity Alcohol use: Yes Comment: Occasionally, never a regular drinker Drug use: Never Sexual activity: Not on file Other Topics Concern Not on file Social History Narrative Not on file Social Determinants of Health Financial Resource Needs: Not on file Food Insecurity Needs: Not on file Transportation Needs: Not on file Physical Activity: Not on file Stress: Not on file Social Integration: Not on file Intimate Partner Violence: Not on file Housing Stability: Not on file FAMILY HX: Family History Problem Relation Age of Onset Cancer Mother 55 Unknown, did not dire from cancer. in a one car MVA. Cancer Sister 55 Unknown but from cancer in her 50's. VITAL SIGNS: Vitals: 07/06/23 1330 BP: 160/73 BP Location: Left Arm BP Position: Sitting Pulse: 67 Resp: 16 Temp: 97 ??F (36.1 ??C) TempSrc: Temporal SpO2: 99% Weight: (!) 82 lb (37.2 kg) GENERAL EXAM: GENERAL: Well developed, cachectic, in no acute distress. AAO x3. Cooperative. HEENT: Normocephalic. PERRLA. Nonicteric. NECK: Supple/ non tender/ full ROM LYMPH NODES: No adenopathy. CARDIOVASCULAR: RRR/ S1S2/ No m/g/c/r. PULMONARY: Respirations easy and regular. Breath sounds clear bilaterally. No rhonchi/ rales/ wheezes. MUSCULOSKELETAL: Moves extremities well. SKIN: General-warm, pink and dry. Localized erythema around stoma for PEG tube. Mild tenderness touch. PSYCHIATRIC: Euthymic. Affect congruent with mood. Normal thought process. PAIN ASSESSMENT: 0 DATA: Results for orders placed or performed in visit on 07/06/23 RAD ONC ARIA SESSION SUMMARY Result Value Ref Range Course ID [id number] Course Intent Curative w/chemo Course Start Date 05/06/2023 11:27 AM Session Number 21 Course End Date 05/12/2023 9:16 AM Course Last Treatment Date 07/06/2023 1:19 PM Course Elapsed Days 55 Reference Point ID [id number] Reference Point Dosage Given to Date 41.85752180 Gy Reference Point Session Dosage Given 1.86690078 Gy Plan ID [id number] Plan Name Oropharynx & Nodes_70Gy Energy 6X Plan Fractions Treated to Date 21 Plan Total Fractions Prescribed 35 Plan Prescribed Dose Per Fraction 2 Gy Plan Total Prescribed Dose 7,000 cGy Plan Primary Reference Point [id number] CBC: 07/06/2023 WBC 4.43 Hgb 11.4 Hct 35.8 Platelets 327 ANC 3.43 ALC 0.43 CMP: Na 137 K 3.8 Cl 95 CO2 35 Glu 98 BUN 40 Cr 0.58 AST 90 ALT 40 Alk Phos 82 T. bili 0.4 eGFR >60 DIAGNOSTIC IMAGING STUDIES: 03/30/[address] OSH: IMPRESSION: 1. Large, hypermetabolic, ulcerative and infiltrative mass centered in the left oropharynx with involvement of the left nasopharynx, left vehicle maintenance supervisor, submandibular, and sublingual spaces, left tonsillar fossa, left aspect of the tongue and left soft palate consistent with biopsy-proven squamous cell carcinoma. 2. Probable metastatic left level IIa lymph node and mildly hypermetabolic right supraclavicular lymph node suspicious for anum metastasis. 3. Aspiration pneumonia in the bilateral lung bases with likely reactive mediastinal and hilar lymph nodes. 03/29/23 CT HEAD WO CONTRAST OSH: IMPRESSION: No acute intracranial abnormality. 03/23/23 CTA HEAD/NECK W/WO CONTRAST OSH: IMPRESSION Large ulcerative left oropharyngeal neck mass highly suspicious for malignancy such as squamous cell carcinoma involving the left parapharyngeal, vehicle maintenance supervisor, submandibular, and sublingual spaces with osseous involvement of the left mandible. Multiple branches of the left external carotid artery including the ascending pharyngeal and lingual branches course through this mass without evidence of active arterial extravasation. Assessment: Diagnoses and all orders for this visit: Oropharyngeal cancer (HCC) - AMB REFERRAL TO [facility]; Future Patient on combined chemotherapy and radiation Unintentional weight loss of more than 10% body weight within 6 months - AMB REFERRAL TO [facility]; Future Cellulitis of abdominal wall - mupirocin (BACTROBAN) 2 % Ointment; Apply 2 times daily for 10 days. Apply sparingly to area around PEG tube twice daily for 10 days. - AMB REFERRAL TO [facility]; Future Plan: Reviewed and discussed above results. Encouraged to continue nutritional supplement 4- 5 cartons per day. Was encouraged to increase water consumption to at least 4 bottles per day. Was encouraged to comply with treatments. May have IV fluids with follow up appointments if feeling weak. Will attempt to schedule home health to assist with management of stoma and monitoring for weight loss Wash area around stoma twice daily with mild soap and water. Use antibiotic ointment sparingly twice daily as directed. Keep appointment for chemotherapy tomorrow. Diagnoses and all orders for this visit: Oropharyngeal cancer (HCC) - AMB REFERRAL TO [facility]; Future Patient on combined chemotherapy and radiation Unintentional weight loss of more than 10% body weight within 6 months - AMB REFERRAL TO [facility]; Future Cellulitis of abdominal wall - mupirocin (BACTROBAN) 2 % Ointment; Apply 2 times daily for 10 days. Apply sparingly to area around PEG tube twice daily for 10 days. - AMB REFERRAL TO [facility]; Future Return in about 3 weeks (around 07/27/2023) for Oropharyngeal cancer, treatment evaluation. The patient was given an opportunity to ask questions, and all questions answered to patient's satisfaction. Patient verbalizes understanding of the plan as outlined above. Patient Instructions Encouraged to continue nutritional supplement 4- 5 cartons per day. Was encouraged to increase water consumption to at least 4 bottles per day. Was encouraged to comply with treatments. May have IV fluids with follow up appointments if feeling weak. Will attempt to schedule home health to assist with management of stoma and monitoring for weight loss Wash area around stoma twice daily with mild soap and water. Use antibiotic ointment sparingly twice daily as directed. Keep appointment for chemotherapy tomorrow. documented in this encounter Miscellaneous Notes * Home Care Referral - Gillian Bailey PAC - 07/06/2023 1:15 PM CDT Images from the original note were not included. Face to Face Encounter Referral to Home Health made for Aleksey Godfrey Sr., : 1960. This patient has been under my care and I, or a nurse practitioner or physician???s senior administrative assistant working with me, had a [id number] encounter with him that meets the requirements on (date) 07/06/2023. Primary Reason for Home Health Care (description of the current medical condition): Excessive weight loss greater than 10% in less than 6 months, oropharyngeal cancer stage III, cellulitis abdominal wall, feeding tube stoma (This encounter was in whole or in part for the patient???s medical condition and reason for Home Care) Based on my findings, the following services are medically necessary home health services (must have at least one primary service: Nursing, PT, Speech Language Pathology): Primary Services : Nursing Additional Services: None To provide the following care / treatments: Observation and Assessment for weight loss My clinical findings support the need for the above services because of the following problems: Excessive weight loss secondary to oropharyngeal cancer (Describe what the RN, PT, or CAPSULE INSPECTOR and other services will be doing in the home Therapy services must be provided with the expectation that, based on the assessment made by the physician of the patient's restorative potential, the condition of the patient will improve materially in a reasonable and generally predictable period of time.) This patient is considered homebound because: Leaving home requires a considerable taxing effort because overall physical debilitation secondary to oropharyngeal cancer (The patient must either: Because of illness or injury, need the aid of supportive devices such as crutches, canes, wheelchairs, and walkers; the use of special transportation; or the assistance of another person in order to leave their place of residence, OR Have a condition such that leaving his or her home is medically contraindicated AND there must exist: A normal inability to leave home; ANDLeaving home must require a considerable and taxing effort.) Allergies: Allergies Description Type Start Date End Date Comment Verified Compliance And Control Analyst Bee Venom Unknown 11-Apr-2023 Reactions: Unknown Ketty Dewitt MA Immunizations: There is no immunization history on file for this patient. He has a past medical history of Edentulous (2021) and Hypertension. He has no past medical history of Diabetes mellitus (HCC), Myocardial infarction (HCC), or Stroke (HCC). He has a past surgical history that includes Gastrostomy Tube Placement (N/A, 03/28/2023); Gastrostomy Tube Placement (N/A, 03/29/2023); laryngoscopy,dirct,op,biopsy (N/A, 03/25/2023); and Appendectomy (2018). Payor: MEDICAID [facility] / Plan: [facility] MEDICAID / Product Type: *No Product type* / The physician who will be the attending physician for ongoing home care services and who will sign the Plan of Care will be: MARC Joyce Advance Practice Provider Statement: I have personally had a [id number] encounter with Aleksey Godfrey Sr. and am personally completing this referral order. My supervising physician for this encounter and referral is Dr. Mirza. I certify Aleksey Godfrey Sr. meets the criteria for home health based on my findings I am the provider ordering Home Health services in collaboration with the physician named. This is my electronic signature: MARC Joyce; 07/06/2023, 2:17 PM CDT * Interdisciplinary - Malena Mosqueda RN - 07/06/2023 1:15 PM CDT Pt wheeled back to treatment chair after radiation. Vitals obtained. Discussed plan of care for theday. Pt states poor oral intake and requests fluids. IV access obtained, labs drawn, flushed easily. Fluids infusing. Pt awaiting to see provider. documented in this encounter Plan of Treatment Scheduled Referrals Name Type Priority Associated Diagnoses Orde r Schedule AMB REFERRAL TO [facility] Outpatient Referral Routine Oropharyngeal cancer (HCC) Unintentional weight loss of more than 10% body weight within 6 months Cellulitis of abdominal wall Expected: 07/20/2023 (Approximate), Expires: 10/06/2023 documented as of this encounter Visit Diagnoses Diagnosis Oropharyngeal cancer (HCC)- Primary Malignant neoplasm of oropharynx, unspecified site Patient on combined chemotherapy and radiation Encounter for antineoplastic chemotherapy Unintentional weight loss of more than 10% body weight within 6 months Cellulitis of abdominal wall Cellulitis and abscess of trunk documented in this encounter Care Teams Deployment Engineer Relationship Specialty Start Date End Date Jorge Espinosa PA [address] [place] [address] PCP - General Physician Rotary Shear Operator 04/11/23 Antwon Mirza MD [address] [place] [address] Consulting Physician Medical Oncology 05/04/23 Roland Patel MD [address] [place] [address] Consulting Physician Radiation Oncology 05/04/23 documented as of this encounter
--- OUTSIDE RECORDS SUMMARY | 2024-02-15 11:29 | XMS_ITS | Encounter Summary ---
Author Organization [facility] Address [address] [facility] [place] [address] Phone Care Team Providers Care Tray Checker Name Role Phone Jorge Espinosa Primary Care Provider [phone] Antwon Mirza MD Unavailable [phone] Roland Patel MD Unavailable [phone] Encounter Details Date Type Department Care Team (Late st Contact Info) Description 07/05/2023 Telephone [facility] Oncology Services [address] [place] [address] Lisa Burden, ANGELITA ID Social History Tobacco Use Types Packs/Day Years Used Date Smoking Tobacco: Every Day Cigarettes 0.5 50.9 Started: 1974 Smokeless Tobacco: Never Alcohol Use Standard Drinks/Week Comments Yes 0 (1 standard drink = 0.6 oz pure alcohol) Occasionally, never a regular drinker Sex and Gender Information Value Date Recorded Sex Assigned at Not on file 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 There is documentation he called medical oncology this past Tuesday leaving a message for a refill on his pain medication. A refill was submitted and when the nurse attempted to contact Aleksey to inform him, he did not answer his phone. Today I was unable to reach Aleksey at his phone number, I then contactedhis daughter on her cell phone asking if she was aware he has now missed 6 appointments. She stated yes, when I call the ride they don't answer the phone . I explained to her the call from Aleksey formedication however he did not mention appointments and that we deal with a variety of ride servicesnot having this degree of difficulty. I reinforced that tomorrow he is scheduled for radiation treatment, labs and a MD followup and we were doing a kind service by refilling medication however with not seeing the doctor we will not be able to provide further refills. Caroline states when I talked to the regional company flatbed truck driver he said the drivers are not given the trailer number only the trailer park address . She then states I do have him scheduled for a ride pick him up tomorrow at noon . I also reinforced we are unable to reach Aleksey as he does not answer his phone and we are not receiving calls when he cannot attend appointments. We will move forward with tomorrow as scheduled and then re evaluate a potential alternate ride system. documented in this encounter Plan of Treatment Not on file documented as of this encounter Visit Diagnoses Not on filedocumented in this encounter Care Teams Tray Checker Relationship Specialty Start Date End Date Jorge Espinosa PA [address] [place] [address] PCP - General Physician Customer Service Driver 04/11/23 Antwon Mirza MD [address] [place] [address] Consulting Physician Medical Oncology 05/04/23 Roland Patel MD [address] [place] [address] Consulting Physician Radiation Oncology 05/04/23 documented as of this encounter
--- OUTSIDE RECORDS SUMMARY | 2024-02-15 11:29 | XMS_ITS | Encounter Summary ---
Author Organization [facility] Address [address] [place] [address] Phone Care Team Providers Care Automation Specialist Name Role Phone Jorge Espinosa Primary Care Provider [phone] Antwon Mirza MD Unavailable [phone] Roland Patel MD Unavailable [phone] Reason for Visit * Episode Based Medications (Routine) - Authorized Specialty Diagnoses / Procedures Referred By Contac t Referred To Contact Diagnoses Oropharyngeal cancer (HCC) Antwon Mirza MD [address] [place] [address] Phone: tel: fax: [facility] [address] [place] [address] Phone: tel: fax: Referral ID Status Reason Start Date Expiration Date V isits Requested Visits Authorized [id number] Authorized 05/09/2023 1 24 Encounter Details Date Type Department Care Team (Latest Contact Info) Description 07/07/2023 1:30 PM CDT Clinical Support 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 Gender Identity Not on file Sexual Orientation Not on file documented as of this encounter Last Filed Vital Signs Vital Sign Reading Time Taken Comments Blood Pressure 173/71 07/07/2023 12:57 PM CDT Pulse 61 07/07/2023 12:57 PM CDT Temperature 36.6 ??C (97.8 ??F) 07/07/2023 12:57 PM C DT Respiratory Rate 16 07/07/2023 12:57 PM CDT Oxygen Saturation 93% 07/07/2023 12:57 PM CDT Inhaled Oxygen Concentration - - Weight 43.5 kg (96 lb) 07/07/2023 12:57 PM CDT Height - - Body Mass Index 15.73 06/20/2023 1:13 PM CDT documented in this encounter Progress Notes * Lisa Burden, RN - 07/07/2023 1:30 PM CDT Patient arrived in Infusion. IV started. Lab assessed. Pre med given. Patient to radiation for treatment and was seen by Dr. Patel while here in Infusion. Chemo given as order per parameters per MD. See VS/IV per flowsheets. Infusion completed. IV dc'd with gauze/coban applied. Patient discharged without concerns stating he does have a ride arranged for tomorrow. I reinforced with Aleksey to tryto answer phone as it difficult for us to communicate with him/ He states it is ok any time to contact his daughter Caroline. AVS declined documented in this encounter Plan of Treatment Not on file documented as of this encounter Visit Diagnoses Diagnosis Oropharyngeal cancer (HCC)- Primary Malignant neoplasm of oropharynx, unspecified site documented in this encounter Administered Medications Inactive Administered Medications - up to 3 most recent administrations Medication Order MAR Action Action Date Dose Rate Site 0.9 % sodium chloride solution at 50 mL/hr, Intravenous, CONTINUOUS, Starting on Tabitha 07/07/23 at 1330, Until Tabitha 07/07/23 at 1703Indications:Oropharyngeal cancer (HCC) New Bag 07/07/2023 1:15 PM CDT 250 mL 50 mL/hr cetuximab (ERBITUX) chemo infusion 362 mg 362 mg (rounded from 362.5 mg = 250 mg/m2 ? 1.45 m2 Treatment Plan BSA from Recorded weight), Intravenous, ONCE, 1 dose, On Tabitha 07/07/23 at 1330, Monitor patient for one hour post infusion.Indications:Oropharyn geal cancer (HCC) Given 07/07/2023 1:43 PM CDT 362 mg diphenhydrAMINE (BENADRYL) injection 25 mg 25 mg, Intravenous, ONCE, 1 dose, On Tabitha 07/07/23 at 1330, Give 30 minutes pre-cetuximab.Indications:Orop haryngeal cancer (HCC) Given 07/07/2023 1:17 PM CDT 25 mg documented in this encounter Care Teams Automation Specialist Relationship Specialty Start Date End Date Jorge Espinosa PA [address] [place] [address] PCP - General Physician Rolling Machine Operator Automatic 04/11/23 Antwon Mirza MD [address] [place] [address] Consulting Physician Medical Oncology 05/04/23 Roland Patel MD [address] [place] [address] Consulting Physician Radiation Oncology 05/04/23 documented as of this encounter
--- OUTSIDE RECORDS SUMMARY | 2024-02-15 11:29 | XMS_ITS | Encounter Summary ---
Author Organization [facility] Address [address] [facility] [place] [address] Phone Care Team Providers Care Causticiser Name Role Phone Jorge Espinosa Primary Care Provider [phone] Antwon Mirza MD Unavailable Roland Patel MD Unavailable [phone] Encounter Details Date Type Department Care Team (Late st Contact Info) Description 07/06/2023 11:40 AM CDT Lab 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 documented in this encounter Plan of Treatment Not on file documented as of this encounter Procedures Procedure Name Priority Date/Time Associated Diagnosis Comments CBC WITH AUTO DIFFERENTIAL STAT 07/06/2023 1:30 PM CDT Oropharyngeal cancer (HCC) CMP (COMPREHENSIVE METABOLIC PANEL) STAT 07/06/2023 1:30 PM CDT Oropharyngeal cancer (HCC) COMPLETE BLOOD COUNT (CBC) WITH DIFF STAT 07/06/2023 1:30 PM CDT Oropharyngeal cancer (HCC) documented in this encounter Results * (ABNORMAL) CBC WITH AUTO DIFFERENTIAL (07/06/2023 1:30 PM CDT) WBC 4.43 4.00 - 12.00 10(3)/mcL 07/06/2023 1:50 PM CDT [facility] RBC 4.26(L) 4.40 - 5.80 10(6)/mcL 07/06/2023 1:50 PM CDT [facility] HEMOGLOBIN (HGB) 11.4(L) 13.0 - 16.5 g/dL 07/06/2023 1:50 PM CDT [facility] HEMATOCRIT (HCT) 35.8(L) 38.0 - 50.0 % 07/06/2023 1:50 PM CDT [facility] MCV 84.0 82.0 - 96.0 fL 07/06/2023 1:50 PM CDT [facility] MCH 26.8 26.0 - 32.0 pg 07/06/2023 1:50 PM CDT [facility] MCHC 31.8 31.0 - 36.0 g/dL 07/06/2023 1:50 PM CDT [facility] PLATELET COUNT 327 140 - 440 10(3)/mcL 07/06/2023 1:50 PM CDT [facility] RDW 16.7(H) 11.8 - 15.5 % 07/06/2023 1:50 PM CDT [facility] MPV 8.9 8.0 - 12.6 fL 07/06/2023 1:50 PM CDT [facility] NEUTROPHILS 77.4(H) 40.0 - 68.0 % 07/06/2023 1:50 PM CDT [facility] LYMPHOCYTES 9.7(L) 19.0 - 49.0 % 07/06/2023 1:50 PM CDT [facility] MONOCYTES 12.2 3.0 - 13.0 % 07/06/2023 1:50 PM CDT [facility] EOSINOPHILS 0.5 0.0 - 8.0 % 07/06/2023 1:50 PM CDT [facility] BASOPHILS 0.2 0.0 - 1.0 % 07/06/2023 1:50 PM CDT [facility] ABSOLUTE NEUTROPHILS 3.43 1.40 - 5.30 10(3)/mcL 07/06/2023 1:50 PM CDT [facility] ABSOLUTE LYMPHOCYTES 0.43(L) 0.90 - 3.30 10(3)/[facility] 07/06/2023 1:50 PM CDT [facility] ABSOLUTE MONOCYTES 0.54 0.10 - 0.90 10(3)/mcL 07/06/2023 1:50 PM CDT [facility] ABSOLUTE EOSINOPHIL 0.02 0.00 - 0.50 10(3)/[facility] 07/06/2023 1:50 PM CDT [facility] ABSOLUTE BASOPHILS 0.01 0.00 - 0.10 10(3)/[facility] 07/06/2023 1:50 PM CDT [facility] NRBC PER 100 WBC 0 07/06/19 1:50 PM CDT [facility] Blood Venipuncture / Unknown 07/06/2023 1:30 PM CDT 07/06/2023 1:39 PM CDT us Antwon Mirza MD HEMATOLOGY ORDERABLES Fi nal Result [facility] [address] [place] [address] * (ABNORMAL) CMP (COMPREHENSIVE METABOLIC PANEL) (07/06/2023 1:30 PM CDT) SODIUM 137 136 - 145 mmol/L 07/06/2023 2:18 PM CDT [facility] POTASSIUM 3.8 3.5 - 5.1 mmol/L 07/06/2023 2:[address] [facility] CHLORIDE 95(L) 98 - 107 mmol/L 07/06/2023 2:[address] [facility] CO2, VENOUS 35(H) 22 - 30 mmol/L 07/06/2023 2:[address] [facility] ANION GAP 10.8 <18.0 mmol/L 07/06/2023 2:[address] [facility] GLUCOSE 98 70 - 99 mg/dL 07/06/2023 2:[address] [facility] BUN 40(H) 8 - 26 mg/dL 07/06/2023 2:[address] [facility] CREATININE, BLOOD 0.58(L) 0.70 - 1.30 mg/dL 07/06/2023 2:[address] [facility] BUN/CREATININE RATIO 69(H) 12 - 20 ratio 07/06/2023 2:[address] [facility] TOTAL PROTEIN 7.2 6.3 - 8.2 g/dL 07/06/2023 2:[address] [facility] ALBUMIN 2.7(L) 3.5 - 5.0 g/dL 07/06/2023 2:[address] [facility] A/G RATIO 0.6(L) 1.0 - 2.2 07/06/2023 2:[address] [facility] CALCIUM 9.0 8.7 - 10.5 mg/dL 07/06/2023 2:18 PM CDT [facility] T BILI 0.4 0.2 - 1.2 mg/dL 07/06/2023 2:18 PM CDT [facility] SGOT (AST) 90(H) 5 - 34 U/L 07/06/2023 2:18 PM CDT [facility] SGPT (ALT) 40 0 - 55 U/L 07/06/2023 2:18 PM CDT [facility] ALKALINE PHOSPHATASE 82 40 - 150 U/L 07/06/2023 2:18 PM CDT [facility] IS THE PATIENT REQUIRED TO BE FASTING? No 07/06/2023 2:18 PM CDT [facility] GFR, ESTIMATED >60 >=60 07/06/2023 2:18 PM CDT [facility] Comment: Creatinine Clearance is the preferred criteria for selecting drug dose adjustments in renally impaired patients. ??The GFR is provided as additional pertinent clinical information. GFR is reported in mL/min/1.73 sq m. Calculation based on the Chronic Kidney Disease Epidemiology Collaboration (CKD- EPI) equation refit without adjustment for race. GFR, EST. >60 >=60 2:18 PM CDT [facility] GFR, EST. NONAFRICAN >60 >=60 07/06/2023 2:[address] [facility] Blood Venipuncture / Unknown 07/06/2023 1:30 PM CDT 07/06/2023 1:39 PM CDT us Antwon Mirza MD CHEMISTRY ORDERABLES Fin al Result [facility] [address] [place] [address] documented in this encounter Visit Diagnoses Diagnosis Oropharyngeal cancer (HCC) Malignant neoplasm of oropharynx, unspecified site documented in this encounter Care Teams Causticiser Relationship Specialty Start Date End Date Jorge Espinosa PA [address] [place] [address] PCP - General Physician Freezer Tunnel Operator 04/11/23 Antwon Mirza MD [address] [place] [address] Consulting Physician Medical Oncology 05/04/23 Roland Patel MD [address] [place] [address] Consulting Physician Radiation Oncology 05/04/23 documented as of this encounter
--- OUTSIDE RECORDS SUMMARY | 2024-02-15 11:29 | XMS_ITS | Encounter Summary ---
Author Organization [facility] Address [address] [facility] [place] [address] Phone Care Team Providers Care Program/Music Director Name Role Phone Jorge Espinosa Primary Care Provider [phone] Antwon Mirza MD Unavailable [phone] Roland Patel MD Unavailable [phone] Reason for Visit * Auth/Cert (Routine) Specialty Diagnoses / Procedures Referred By Contac t Referred To Contact Referral ID Status Reason Start Date Expiration Date Visits Re quested Visits Authorized [id number] 02 [id number] Encounter Details Date Type Department Care Team (Latest Contact Info) Description 07/09/2023 1:00 PM CDT Home Care Visit [facility] [address] [place] [address] Zunilda Barger, RN [place] - [place] START OF CARE Social History Tobacco Use Types Packs/Day Years Used Date Smoking Tobacco: Every Day Cigarettes 0.5 50.9 Started: 1974 Smokeless Tobacco: Never Alcohol Use Standard Drinks/Week Comments Yes 0 (1 standard drink = 0.6 oz pure alcohol) Occasionally, never a regular drinker Sex and Gender Information Value Date Recorded Sex Assigned at Not on file 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 Gender Identity Not on file Sexual Orientation Not on file documented as of this encounter Last Filed Vital Signs Vital Sign Reading Time Taken Comments Blood Pressure 108/68 07/09/2023 2:00 PM CDT Pulse 72 07/09/2023 2:00 PM CDT Temperature 36.4 ??C (97.5 ??F) 07/09/2023 2:00 PM CD T Respiratory Rate - - Oxygen Saturation 98% 07/09/2023 2:00 PM CDT Inhaled Oxygen Concentration - - Weight 37.2 kg (82 lb) 07/09/2023 2:00 PM CDT Height 165.1 cm (5' 5 ) 07/09/2023 2:00 PM CDT Body Mass Index 13.65 07/09/2023 2:00 PM CDT documented in this encounter Plan of Treatment Not on file documented as of this encounter Visit Diagnoses Not on filedocumented in this encounter Home Health Visit - Care Plan Visit Details Visit Type -SN - [facility] START OF CARE Discipline -Prison Problems Problem Description Start Date Status Goals Interve ntions CANCER Disciplines: Prison Cancer 07/09/2023 Active 1 goal linked to scheduled/documen yoselin intervention 1 goal intervention scheduled/document ed in this visit PAIN-MANAGEMENT /EDUCATION Disciplines: Skilled Clinicians 07/09/2023 Active 1 goal linked to scheduled/documen yoselin intervention 1 goal intervention scheduled/document ed in this visit SAFETY/PREVENTI ON EDUCATION Disciplines: Prison Safety/Preventio n Education 07/09/2023 Active - 1 problem intervention scheduled/document ed in this visit SN GENERAL ORDERS Disciplines: Prison SN General Orders 07/09/2023 Active 1 goal linked to scheduled/documen yoselin intervention 1 goal intervention scheduled/document ed in this visit DIET EDUCATION Disciplines: Prison Diet Education 07/09/2023 Active 1 goal linked [...] techniques to mitigate/control cancer symptoms. Problem:CANCER Goal:Cancer Completed Cancer management education provided: Infection prevention- wash [...] wounds, signs of oral sy[place], swelling/redness anywhere and Radiation skin care- skin may dry, bleed or weep, wash hair/skin gently with mild soap, avoid scrubbing, pat dry, do not soak in bath, only use cream/ lotion recommended by doctor, report severe breakdown/pain/infect ion immediately Instruction provided to Patient and Caregiver. Response verbalize understanding Pain Management/Education (O) Description: [...] breathing to assist with focus. Instruction provided Rest between activities, take pain med as needed. Instruction provided to Patient and Caregiver. Response verbalize understanding. High Risk Med Safety Education-Oxygen (Order Only) Description: Instruct on safe use of oxygen, perform home safety risk assessment. Assess the presence or absence and working order of smoke detectors, fire extinguishers and fire safety plans. Applies to all disciplines involved in plan of care. Problem:SAFETY/PREVEN TION EDUCATION Completed Additional Disease Management (O) Description: SN to monitor for signs and symptoms of exacerbation or complications of Hypertension and Enteral Feeding. Problem:SN GENERAL ORDERS Goal:SN General Completed Exacerbation/ complications noted at this visit: none Diet Teaching Description: Provide instruction on Enteral feeding by gravity bag method, diet. Problem:DIET EDUCATION Goal:Diet Education Completed Diet instruction provided Drink 4-5 bottles of water a day, Try protein shakes. Instruction provided to Patient and Caregiver. Response verbalize understanding. documented in this encounter Care Teams Program/Music Director Relationship Specialty Start Date End Date Jorge Espinosa PA [address] [place] [address] PCP - General Physician Polisher Dial 04/11/23 Antwon Mirza MD [address] [place] [address] Consulting Physician Medical Oncology 05/04/23 Roland Patel MD [address] [place] [address] Consulting Physician Radiation Oncology 05/04/23 documented as of this encounter
--- OUTSIDE RECORDS SUMMARY | 2024-02-15 11:29 | XMS_ITS | Encounter Summary ---
Author Organization [facility] Care Team Providers Care Transmission System Operator Name Role Phone Jorge Espinosa Primary Care Provider [phone] Antwon Mirza MD Unavailable [phone] Roland Patel MD Unavailable [phone] Encounter Details Date Type Department Care Team (Latest Contact Info) Description 07/06/2023 Travel Social History Tobacco Use Types Packs/Day Years Used Date Smoking Tobacco: Every Day Cigarettes 0.5 50.9 Started: 1974 Smokeless Tobacco: Never Alcohol Use Standard Drinks/Week Comments Yes 0 (1 standard drink = 0.6 oz pure alcohol) Occasionally, never a regular drinker Sex and Gender Information Value Date Recorded Sex Assigned at Not on file 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 Gender Identity Not on file Sexual Orientation Not on file documented as of this encounter Plan of Treatment Not on file documented as of this encounter Visit Diagnoses Not on filedocumented in this encounter Care Teams Transmission System Operator Relationship Specialty Start Date End Date Jorge Espinosa PA [address] [place] [address] PCP - General Physician Superintendent Quarry 04/11/23 Antwon Mirza MD [address] [place] [address] Consulting Physician Medical Oncology 05/04/23 Roland Patel MD [address] [place] [address] Consulting Physician Radiation Oncology 05/04/23 documented as of this encounter
--- OUTSIDE RECORDS SUMMARY | 2024-02-15 11:29 | XMS_ITS | Encounter Summary ---
Author Organization [facility] Address [address] [facility] [place] [address] Phone Care Team Providers Care Heel Breaster Name Role Phone Jorge Espinosa Primary Care Provider [phone] Antwon Mirza MD Unavailable [phone] Roland Patel MD Unavailable [phone] Reason for Visit * Reason Comments Cancer Oropharyngeal squamo us cell carcinoma, p16+. 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 Gender Identity Not on file Sexual Orientation Not on file documented as of this encounter Last Filed Vital Signs Vital Sign Reading Time Taken Comments Blood Pressure 173/71 07/07/2023 1:12 PM CDT Pulse 61 07/07/2023 1:12 PM CDT Temperature 36.6 ??C (97.8 ??F) 07/07/2023 1:12 PM CD T Respiratory Rate 16 07/07/2023 1:12 PM CDT Oxygen Saturation 93% 07/07/2023 1:12 PM CDT Inhaled Oxygen Concentration - - Weight 43.5 kg (96 lb) 07/07/2023 1:12 PM CDT Height - - Body Mass Index 15.73 06/20/2023 1:13 PM CDT documented in this encounter Progress Notes * Lisa Burden, RN - 07/07/2023 1:15 PM CDT Patient here today for Radiation Treatment and visit with Dr. Patel. He is also receiving chemo today. Dr. Patel saw patient in Infusion Cosigned by Roland Patel MD at 07/07/2023 4:10 PM CDT * Roland Patel MD - 07/07/2023 1:15 PM CDT [facility] RADI[facility] ONCOLOGY ON TREATMENT VISIT Patient Name: Aleksey Godfrey SrShailesh Encounter Date: 07/07/2023 Diagnosis: 1. Encounter for radiotherapy 2. Patient on combined chemotherapy and radiation 3. Oropharyngeal cancer (HCC) 4. Dysphagia, oropharyngeal 5. PEG (percutaneous endoscopic gastrostomy) status (HCC) 6. Unintentional weight loss of more than 10% body weight within 6 months 7. Noncompliance Site: Oropharynx and regional lymphatics Total Dose to Date: 4400 cGy of 7000 cGy Systemic Therapy: Concurrent weekly cetuximab with cycle 1 05/12/2023, cycle 2 05/19/2023, cycle 3 05/26/2023, cycle 4 06/02/2023, cycle 5 06/09/2023, cycle 6 06/16/2023, cycle 7 07/07/2023. Patient Concerns/Complaints: Today was his 22nd treatment and 7th OTV. No symptoms of radiation pharyngitis or esophagitis and no complaints of skin complaints which was not surprising given the sporadic nature of his treatments. When asked why he did not come in last week he said it was a combination of difficulty with his rides and also just not ???feeling like coming in?? . He was seen by himself. Patient Weight: Reviewed. Wt Readings from Last 3 Encounters: 07/07/23 (!) 96 lb (43.5 kg) 07/07/23 (!) 96 lb (43.5 kg) 07/06/23 (!) 82 lb (37.2 kg) Vitals: 07/07/23 1312 BP: 173/71 Pulse: 61 Resp: 16 Temp: 97.8 ??F (36.6 ??C) TempSrc: Temporal SpO2: 93% Weight: (!) 96 lb (43.5 kg) Physical Examination: ECOG PS of a somewhat marginal 1, stable. Oral cavity and oropharynx were clear. No radiotherapy related skin changes. G-tube site was clean. No gross neurologic deficits. Imaging: CBCT was obtained, reviewed and approved today. Impression: The primary encounter diagnosis was Encounter for radiotherapy. Diagnoses of Patient oncombined chemotherapy and radiation, Oropharyngeal cancer (HCC), Dysphagia, oropharyngeal, PEG (percutaneous endoscopic gastrostomy) status (HCC), Unintentional weight loss of more than 10% body weight within 6 months, and Noncompliance were also pertinent to this visit. Currently under radiotherapy treatment and overall doing well. All questions answered. No to minimal side effects thus far not requiring intervention with regards to radiotherapy. Plan: Continue radiotherapy and concurrent cetuximab. Patient was counseled once again about the importance of showing up for his scheduled treatments as skipping will decrease the effectiveness of the treatment. He was also encouraged to follow the instructions of the dietitian with regards to hisG-tube feedings. By: Roland Patel MD 07/07/2023, 4:10 PM CDT Patient Care Team: Jorge Espinosa PA as PCP - General (Physician Stock Grader) Antwon Mirza MD as Consulting Physician (Medical Oncology) Roland Patel MD as Consulting Physician (Radiation Oncology) documented in this encounter Plan of Treatment Not on file documented as of this encounter Visit Diagnoses Diagnosis Encounter for radiotherapy- Primary Radiotherapy Patient on combined chemotherapy and radiation Encounter for antineoplastic chemotherapy Oropharyngeal cancer (HCC) Malignant neoplasm of oropharynx, unspecified site Dysphagia, oropharyngeal Dysphagia, oropharyngeal phase PEG (percutaneous endoscopic gastrostomy) status (HCC) Unintentional weight loss of more than 10% body weight within 6 months Noncompliance Personal history of noncompliance with medical treatment, presenting hazards to health documented in this encounter Care Teams Heel Breaster Relationship Specialty Start Date End Date Jorge Espinosa PA [address] [place] [address] PCP - General Physician Stock Grader 04/11/23 Antwon Mirza MD [address] [place] [address] Consulting Physician Medical Oncology 05/04/23 Roland Patel MD [address] [place] [address] Consulting Physician Radiation Oncology 05/04/23 documented as of this encounter
--- OUTSIDE RECORDS SUMMARY | 2024-02-15 11:29 | XMS_ITS | Encounter Summary ---
Author Organization [facility] Address [address] [facility] [place] [address] Phone Care Team Providers Care Gynecology Teacher Name Role Phone Jorge Espinosa Primary Care Provider [phone] Antwon Mirza MD Unavailable Roland Patel MD Unavailable Reason for Visit * Reason Onset Date Comments Medication Refill 07/01/2023 Encounter Details Date Type Department Care Team (Late st Contact Info) Description 07/01/2023 Refill [facility] On[facility] [address] [place] [address] Antwon Mirza MD [address] [place] [address] Medication Refill Social History Tobacco Use Types Packs/Day Years Used Date Smoking Tobacco: Every Day Cigarettes 0.5 50.9 Started: 1974 Smokeless Tobacco: Never Alcohol Use Standard Drinks/Week Comments Yes 0 (1 standard drink = 0.6 oz pure alcohol) Occasionally, never a regular drinker Sex and Gender Information Value Date Recorded Sex Assigned at Not on file 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 Next f/u scheduled for 07/06/23. documented in this encounter Plan of Treatment Not on file documented as of this encounter Visit Diagnoses Diagnosis Oropharyngeal cancer (HCC) Malignant neoplasm of oropharynx, unspecified site documented in this encounter Care Teams Gynecology Teacher Relationship Specialty Start Date End Date Jorge Espinoas PA [address] [place] [address] PCP - General Physician Rn Behavioral Health 04/11/23 Antwon Mirza MD [address] [place] [address] Consulting Physician Medical Oncology 05/04/23 Roland Patel MD [address] [place] [address] Consulting Physician Radiation Oncology 05/04/23 documented as of this encounter
--- OUTSIDE RECORDS SUMMARY | 2024-02-15 11:29 | XMS_ITS | Encounter Summary ---
Author Organization [facility] Address [address] [place] [address] Phone Care Team Providers Care Patron Attendant Name Role Phone Jorge Espinosa Primary Care Provider [phone] Antwon Mirza MD Unavailable [phone] Roland Patel MD Unavailable [phone] Encounter Details Date Type Department Care Team (Late st Contact Info) Description 07/09/2023 Plan of [facility] [address] [place] [address] Social History Tobacco Use Types Packs/Day Years Used Date Smoking Tobacco: Every Day Cigarettes 0.5 50.9 Started: 1974 Smokeless Tobacco: Never Alcohol Use Standard Drinks/Week Comments Yes 0 (1 standard drink = 0.6 oz pure alcohol) Occasionally, never a regular drinker Sex and Gender Information Value Date Recorded Sex Assigned at Not on file 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 no documented in this encounter Plan of Treatment Not on file documented as of this encounter Visit Diagnoses Not on filedocumented in this encounter Care Teams Patron Attendant Relationship Specialty Start Date End Date Jorge Espinosa PA [address] [place] [address] PCP - General Physician Audio Visual Coordinator 04/11/23 Antwon Mirza MD [address] [place] [address] Consulting Physician Medical Oncology 05/04/23 Roland Patel MD [address] [place] [address] Consulting Physician Radiation Oncology 05/04/23 documented as of this encounter
--- OUTSIDE RECORDS SUMMARY | 2024-02-15 11:29 | XMS_ITS | Encounter Summary ---
Author Organization [employer] Care Team Providers Care Job Analysis Manager Name Role Phone Jorge Espinosa Primary Care Provider [phone] Antwon Mirza MD Unavailable [phone] Roland Patel MD Unavailable [phone] Encounter Details Date Type Department Care Team (Latest Contact Info) Description 07/07/2023 Travel Social History Tobacco Use Types Packs/Day Years Used Date Smoking Tobacco: Every Day Cigarettes 0.5 50.9 Started: 1974 Smokeless Tobacco: Never Alcohol Use Standard Drinks/Week Comments Yes 0 (1 standard drink = 0.6 oz pure alcohol) Occasionally, never a regular drinker Sex and Gender Information Value Date Recorded Sex Assigned at Not on file 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
--- OUTSIDE RECORDS SUMMARY | 2024-02-15 11:29 | XMS_ITS | Encounter Summary ---
Author Organization [facility] Address [address] [facility] 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 He stated to the radiation therapist I wasn't going to even come today because my feel are swelling so bad but I need my Oxycodone refilled.He was again encouraged to keep his appointments and states he does already have his ride scheduledfor tomorrow. He has not started his Aldactone as discussed/ordered this past Tuesday07/08/23 as he will start that later today, I didn't get it yet . His ankles remain swollen with 2-3+ edema. He also requested a refill on the Oxycodone which Thu Hendrix RN reviewed with the pharmacy. I discussed with Aleksey again how the Oxycodone should be taken as it was picked up on 07/02/23 and is not due for ref ill until 07/21/23. WELDER PLASTICS documented in this encounter Plan of Treatment Not on file documented as of this encounter Procedures Procedure Name Priority Date/Time Associated Diagnosis Comments RAD ONC ARIA SESSION SUMMARY Routine 07/11/2023 1:12 PM CDT Oropharyngeal cancer (HCC) documented in this encounter Results * RAD ONC ARIA SESSION SUMMARY (07/11/2023 1:12 PM CDT) Course ID C1 ARIA RO MODEL Course Intent Curative w/chemo ARIA RO MODEL Course Start Date 05/06/2023 11:27 AM ARIA RO MODEL Session Number 24 ARIA RO MODEL Course End Date 05/12/2023 9:16 AM ARIA RO MODEL Course Last Treatment Date 07/11/2023 1:14 PM ARIA RO MODEL Course Elapsed Days 60 ARIA RO MODEL Reference Point ID [id number] ARIA RO MODEL Reference Point Dosage Given to Date [id number] Gy ARIA RO MODEL Reference Point Session Dosage Given [id number] Gy ARIA RO MODEL Plan ID [id number] ARIA RO MODEL Plan Name Oropharynx & Nodes_70Gy ARIA RO MODEL Energy 6X ARIA RO MODEL Plan Fractions Treated to Date 24 ARIA RO MODEL Plan Total Fractions Prescribed 35 ARIA RO MODEL Plan Prescribed Dose Per Fraction 2 Gy ARIA RO MODEL Plan Total Prescribed Dose 7,000 cGy ARIA RO MODEL Plan Primary Reference Point HN_PRP ARIA RO MODEL 07/11/2023 1:12 PM CDT us Unknown Provider RADIATION ONCOLOGY ORDERABLES F inal Result THEA AVALOS MODEL [address] [place] [address] documented in this encounter Visit Diagnoses Diagnosis Oropharyngeal cancer (HCC)- Primary Malignant neoplasm of oropharynx, unspecified site documented in this encounter Care Teams Online Trader Relationship Specialty Start Date End Date Jorge Espinosa PA [address] [place] [address] PCP - General Physician Line Patrolman 04/11/23 Antwon Mirza MD [address] [place] [address] Consulting Physician Medical Oncology 05/04/23 Roland Patel MD [address] [place] [address] Consulting Physician Radiation Oncology 05/04/23 documented as of this encounter
--- OUTSIDE RECORDS SUMMARY | 2024-02-15 11:29 | XMS_ITS | Encounter Summary ---
Author Organization [facility] Address [address] [facility] [place] [address] Phone Care Team Providers Care Interlibrary Loan Specialist Name Role Phone Jorge Espinosa Primary Care Provider Antwon Mirza MD Unavailable Roland Patel MD Unavailable [phone] Encounter Details Date Type Department Care Team (Late st Contact Info) Description 07/06/2023 [facility]ation [facility] [address] [place] [address] Roland Patel MD [address] [place] [address] Social History Tobacco Use Types Packs/Day Years Used Date Smoking Tobacco: Every Day Cigarettes 0.5 50.9 Started: 1974 Smokeless Tobacco: Never Alcohol Use Standard Drinks/Week Comments Yes 0 (1 standard drink = 0.6 oz pure alcohol) Occasionally, never a regular drinker Sex and Gender Information Value Date Recorded Sex Assigned at Not on file 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 Gender Identity Not on file Sexual Orientation Not on file documented as of this encounter Miscellaneous Notes * Allie - Genny Go, LANE - 07/06/2023 12:57 PM CDT 07/06/2023-weekly wt=92# 6oz (10% weight loss since start of treatment); has missed past 6 treatmentdays; 06/23/2023-Pj=059, K=3.0, Mg=2.0, BS=92, albumin=3.0, BUN=7, EGFR>60; Pt reports that he think that his TF was changed & he is getting the higher calorie (2.0) TF product; States that he is administering 4 cartons of TF per day, as recommended, but his persistent weight decline would contradict what pt is reporting; documented in this encounter Plan of Treatment Not on file documented as of this encounter Visit Diagnoses Not on filedocumented in this encounter Care Teams Interlibrary Loan Specialist Relationship Specialty Start Date End Date Jorge Espinosa PA [address] [place] [address] PCP - General Physician Alarm Security Or Surveillance Monitor 04/11/23 Antwon Mirza MD [address] [place] [address] Consulting Physician Medical Oncology 05/04/23 Roland Patel MD [address] [place] [address] Consulting Physician Radiation Oncology 05/04/23 documented as of this encounter
--- OUTSIDE RECORDS SUMMARY | 2024-02-15 11:29 | XMS_ITS | Encounter Summary ---
Author Organization [email or web address] Care Team Providers Care Engine Room Helper Name Role Phone Jorge Espinosa Primary Care Provider [phone] Antwon Mirza MD Unavailable [phone] Roland Patel MD Unavailable [phone] Encounter Details Date Type Department Care Team (Latest Contact Info) Description 07/11/2023 Travel Social History Tobacco Use Types Packs/Day Years Used Date Smoking Tobacco: Every Day Cigarettes 0.5 50.9 Started: 1974 Smokeless Tobacco: Never Alcohol Use Standard Drinks/Week Comments Yes 0 (1 standard drink = 0.6 oz pure alcohol) Occasionally, never a regular drinker Sex and Gender Information Value Date Recorded Sex Assigned at Not on file 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
--- OUTSIDE RECORDS SUMMARY | 2024-02-15 11:29 | XMS_ITS | Encounter Summary ---
Author Organization [facility] Address [address] [facility] [place] [address] Phone Care Team Providers Care Diesel Retrofit Installer Name Role Phone Jorge Espinosa Primary Care Provider [phone] Antwon Mirza MD Unavailable [phone] Roland Patel MD Unavailable [phone] Reason for Visit * Reason Comments Cancer Oropharyngeal squamo us cell carcinoma, p16+. 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 His last treatment was 06/23/2023. He received treatment today and then received IV fluids. After hisradiotherapy treatment he was taken back for fluids but only received partial fluids because he hadto leave because of his ride. I was not able to see him before he left so will see him tomorrow. Hedid meet with dietary and while he says he was put in the recommended amount of nutritional supplements into his G-tube this was not felt to be possible with his weight loss. He was instructed today by the therapist and nursing that his sporadic treatments would compromise the effectiveness of his radiotherapy. There were various reasons he gave about why he was not coming in including transportation issues with [employer], etc. Wt Readings from Last 3 Encounters: 07/06/23 (!) 82 lb (37.2 kg) 07/06/23 (!) 92 lb 6.4 oz (41.9 kg) 06/23/23 (!) 94 lb 8 oz (42.9 kg) Roland Patel MD 07/06/2023 documented in this encounter Plan of Treatment [...] than 10% body weight within 6 months documented in this encounter Care Teams Diesel Retrofit Installer Relationship Specialty Start Date End Date Jorge Espinosa PA [address] [place] [address] PCP - General Physician Call Center Assistant 04/11/23 Antwon Mirza MD [address] [place] [address] Consulting Physician Medical Oncology 05/04/23 Roland Patel MD [address] [place] [address] Consulting Physician Radiation Oncology 05/04/23 documented as of this encounter
--- OUTSIDE RECORDS SUMMARY | 2024-02-15 11:29 | XMS_ITS | Encounter Summary ---
Author Organization [facility] Address [address] [facility] 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 I impressed upon Aleksey the importance of not missing scheduled appointments for the best outcome of the treatments, whether it be radiation, chemotherapy or being evaluated by the care team. I asked Aleksey if he was able to have rides for the past week he replied yes, I had rides scheduled but just felt too bad to come in . I reaffirmed that in order to provide the needed care, he needs to come in for us to evaluate his needs. He verbalized understanding and stated my daughter and I did talk a lot last night . He does state he has a ride already scheduled for noon tomorrow and I reaffirmed with him the importance of keeping that appointment. Again he verbalized understanding. Alessandra JONES did contact [facility] today; there is possibility ofobtaining rides from that service with a 3 day notice. As the concern at this point may not be completely a ride issue, no changes will be made or suggested at this time. Alessandra will reevaluate the r marge needs later this week if necessary. documented in this encounter Miscellaneous Notes * Interdisciplinary - Kamila Barron, ANGELITA - 07/06/2023 1:30 PM CDT Fluids administered per MD orders. Pt tolerating well. Pt's ride came and pt wanted to be unhooked early. IV flushed and removed. Pt wheeled via wheelchair to ride waiting outside. documented in this encounter Plan of Treatment Not on file documented as of this encounter Visit Diagnoses Diagnosis Oropharyngeal cancer (HCC)- Primary Malignant neoplasm of oropharynx, unspecified site documented in this encounter Administered Medications Inactive Administered Medications - up to 3 most recent administrations Medication Order MAR Action Action Date Dose Rate Site 0.9 % sodium chloride solution at 999 mL/hr, Intravenous, CONTINUOUS, Starting on Tue07/06/23 at 1400, Until Tue07/06/23 at 1734, 1 literIndications:Oropharyngeal cancer (HCC) New Bag 07/06/2023 1:35 PM CDT 999 mL/hr documented in this encounter Care Teams Tag Meter Operator Relationship Specialty Start Date End Date Jorge Espinosa PA [address] [place] [address] PCP - General Physician Manager Advertising 04/11/23 Antwon Mirza MD [address] [place] [address] Consulting Physician Medical Oncology 05/04/23 Roland Patel MD [address] [place] [address] Consulting Physician Radiation Oncology 05/04/23 documented as of this encounter
--- OUTSIDE RECORDS SUMMARY | 2024-02-15 11:29 | XMS_ITS | Encounter Summary ---
Author Organization [facility] Address [address] [facility] 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 Gender Identity Not on file Sexual Orientation Not on file documented as of this encounter Last Filed Vital Signs Vital Sign Reading Time Taken Comments Blood Pressure - - Pulse - - Temperature - - Respiratory Rate - - Oxygen Saturation - - Inhaled Oxygen Concentration - - Weight 41.9 kg (92 lb 6.4 oz) 11:00 AM CDT standing scale Height - - Body Mass Index 15.14 06/20/2023 1:13 PM CDT documented in this encounter Plan of Treatment Not on file documented as of this encounter Procedures Procedure Name Priority Date/Time Associated Diagnosis Comments RAD ONC ARIA SESSION SUMMARY Routine 07/06/2023 1:22 PM CDT documented in this encounter Results * RAD ONC ARIA SESSION SUMMARY (07/06/2023 1:22 PM CDT) Course ID C1 ARIA RO MODEL Course Intent Curative w/chemo ARIA RO MODEL Course Start Date 05/06/2023 11:27 AM ARIA RO MODEL Session Number 21 ARIA RO MODEL Course End Date 05/12/2023 9:16 AM ARIA RO MODEL Course Last Treatment Date 07/06/2023 1:19 PM ARIA RO MODEL Course Elapsed Days 55 ARIA RO MODEL Reference Point ID [id number] ARIA RO MODEL Reference Point Dosage Given to Date [id number] Gy ARIA RO MODEL Reference Point Session Dosage Given [id number] Gy ARIA RO MODEL Plan ID [id number] ARIA RO MODEL Plan Name Oropharynx & Nodes_70Gy ARIA RO MODEL Energy 6X ARIA RO MODEL Plan Fractions Treated to Date 21 ARIA RO MODEL Plan Total Fractions Prescribed 35 ARIA RO MODEL Plan Prescribed Dose Per Fraction 2 Gy ARIA RO MODEL Plan Total Prescribed Dose 7,000 cGy ARIA RO MODEL Plan Primary Reference Point HN_PRP ARIA RO MODEL 07/06/2023 1:22 PM CDT us Unknown Provider RADIATION ONCOLOGY ORDERABLES F inal Result ARIA RO MODEL [address] [place] [address] documented in this encounter Visit Diagnoses Not on filedocumented in this encounter Care Teams Industrial Spray Painter Relationship Specialty Start Date End Date Jorge Espinosa PA [address] [place] [address] PCP - General Physician Custom Clothier 04/11/23 Antwon Mirza MD [address] [place] [address] Consulting Physician Medical Oncology 05/04/23 Roland Patel MD [address] [place] [address] Consulting Physician Radiation Oncology 05/04/23 documented as of this encounter
--- OUTSIDE RECORDS SUMMARY | 2024-02-15 11:29 | XMS_ITS | Encounter Summary ---
Author Organization [employer] Care Team Providers Care Antenna Installer Name Role Phone Jorge Espinosa Primary Care Provider [phone] Antwon Mirza MD Unavailable [phone] Roland Patel MD Unavailable [phone] Encounter Details Date Type Department Care Team (Latest Contact Info) Description 06/23/2023 Travel Social History Tobacco Use Types Packs/Day Years Used Date Smoking Tobacco: Every Day Cigarettes 0.5 50.9 Started: 1974 Smokeless Tobacco: Never Alcohol Use Standard Drinks/Week Comments Yes 0 (1 standard drink = 0.6 oz pure alcohol) Occasionally, never a regular drinker Sex and Gender Information Value Date Recorded Sex Assigned at Not on file 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
--- OUTSIDE RECORDS SUMMARY | 2024-02-15 11:30 | XMS_ITS | Encounter Summary ---
Author Organization [facility] Address [address] [place] [address] Phone Care Team Providers Care Car Carder Name Role Phone Jorge Espinosa Primary Care Provider [phone] Antwon Mirza MD Unavailable [phone] Roland Patel MD Unavailable [phone] Reason for Visit * Episode Based Medications (Routine) - Authorized Specialty Diagnoses / Procedures Referred By Contac t Referred To Contact Diagnoses Oropharyngeal cancer (HCC) Antwon Mirza MD [address] [place] [address] Phone: tel: fax: [facility] [address] [place] [address] Phone: tel: fax: Referral ID Status Reason Start Date Expiration Date V isits Requested Visits Authorized [id number] Authorized 05/09/2023 1 24 Encounter Details Date Type Department Care Team (Latest Contact Info) Description 06/02/2023 1:30 PM CDT Clinical Support [facility] [address] [place] [address] Antwon Mirza MD [address] [place] [address] Oropharyngeal cancer (HCC) (Primary Dx) [...] on file 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 Gender Identity Not on file Sexual Orientation Not on file documented as of this encounter Last Filed Vital Signs Vital Sign Reading Time Taken Comments Blood Pressure 158/69 06/02/2023 1:16 PM CDT Pulse 59 06/02/2023 1:16 PM CDT Temperature 36.4 ??C (97.5 ??F) 06/02/2023 1:16 PM CD T Respiratory Rate 16 06/02/2023 1:16 PM CDT Oxygen Saturation 98% 06/02/2023 1:16 PM CDT Inhaled Oxygen Concentration - - Weight 43.7 kg (96 lb 4.8 oz) 06/02/2023 1:16 PM CDT Height - - Body Mass Index 15.78 05/31/2023 1:27 PM CDT documented in this encounter Miscellaneous Notes * Interdisciplinary - Davis Latham RN - 06/02/2023 1:30 PM CDT Pt ambulated to treatment room. Vitals obtained. IV access x3 attempts. Flushed without difficulty,blood return present. Labs reviewed. Medicated per MD orders. Tolerated well. IV removed. Gauze andcoband applied. Pt left in stable condition. RX FOR NICOTINE PATCHES SENT TO PHARMACY PER PT REQUEST. Pt inquired about refill on Oxycodone solution, informed pt he is not due until Tuesday, pt verbalized understanding. Will ask to send request on Tuesday while here for radiation. documented in this encounter Plan of Treatment Not on file documented as of this encounter Visit Diagnoses Diagnosis Oropharyngeal cancer (HCC)- Primary Malignant neoplasm of oropharynx, unspecified site documented in this encounter Administered Medications Inactive Administered Medications - up to 3 most recent administrations Medication Order MAR Action Action Date Dose Rate Site 0.9 % sodium chloride solution at 100 mL/hr, Intravenous, ONCE, 1 dose, On Tabitha 06/02/23 at 1430Indications:Oropharyngeal cancer (HCC) New Bag 06/02/2023 1:51 PM CDT 250 mL 100 mL/hr cetuximab (ERBITUX) chemo infusion 362 mg 362 mg (rounded from 362.5 mg = 250 mg/m2 ? 1.45 m2 Treatment Plan BSA from Recorded weight), Intravenous, ONCE, 1 dose, On Tabitha 06/02/23 at 1430, Monitor patient for one hour post infusion.Indications:Oropharyn geal cancer (HCC) Given 06/02/2023 2:14 PM CDT 362 mg diphenhydrAMINE (BENADRYL) injection 25 mg 25 mg, Intravenous, ONCE, 1 dose, On Tabitha 06/02/23 at 1400, Give 30 minutes pre-cetuximab.Indications:Orop haryngeal cancer (HCC) Given 06/02/2023 1:51 PM CDT 25 mg documented in this encounter Care Teams Car Carder Relationship Specialty Start Date End Date Jorge Espinosa PA [address] [place] [address] PCP - General Physician Gaming Floor Supervisor 04/11/23 Antwon Mirza MD [address] [place] [address] Consulting Physician Medical Oncology 05/04/23 Roland Patel MD [address] [place] [address] Consulting Physician Radiation Oncology 05/04/23 documented as of this encounter
--- OUTSIDE RECORDS SUMMARY | 2024-02-15 11:30 | XMS_ITS | Encounter Summary ---
Author Organization [facility] Address [address] [facility] 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 Gender Identity Not on file Sexual Orientation Not on file documented as of this encounter Plan of Treatment Not on file documented as of this encounter Procedures Procedure Name Priority Date/Time Associated Diagnosis Comments RAD ONC ARIA SESSION SUMMARY Routine 06/06/2023 1:11 PM CDT documented in this encounter Results * RAD ONC ARIA SESSION SUMMARY (06/06/2023 1:11 PM CDT) Course ID C1 ARIA RO MODEL Course Intent Curative w/chemo ARIA RO MODEL Course Start Date 05/06/2023 11:27 AM ARIA RO MODEL Session Number 13 ARIA RO MODEL Course End Date 05/12/2023 9:16 AM ARIA RO MODEL Course Last Treatment Date 06/06/2023 1:13 PM ARIA RO MODEL Course Elapsed Days 25 ARIA RO MODEL Reference Point ID [id number] ARIA RO MODEL Reference Point Dosage Given to Date [id number] Gy ARIA RO MODEL Reference Point Session Dosage Given [id number] Gy ARIA RO MODEL Plan ID [id number] ARIA RO MODEL Plan Name Oropharynx & Nodes_70Gy ARIA RO MODEL Energy 6X ARIA RO MODEL Plan Fractions Treated to Date 13 ARIA RO MODEL Plan Total Fractions Prescribed 35 ARIA RO MODEL Plan Prescribed Dose Per Fraction 2 Gy ARIA RO MODEL Plan Total Prescribed Dose 7,000 cGy ARIA RO MODEL Plan Primary Reference Point HN_PRP ARIA RO MODEL 06/06/2023 1:11 PM CDT us Unknown Provider RADIATION ONCOLOGY ORDERABLES F inal Result Performing Organization Address City/State/[facility] Co de Phone Number ARIA RO MODEL [address] [place] [address] documented in this encounter Visit Diagnoses Not on filedocumented in this encounter Care Teams Ssis Ssrs Developer Relationship Specialty Start Date End Date Jorge Espinosa PA [address] [place] [address] PCP - General Physician Sod Cutter 04/11/23 Antwon Mirza MD [address] [place] [address] Consulting Physician Medical Oncology 05/04/23 Roland Patel MD [address] [place] [address] Consulting Physician Radiation Oncology 05/04/23 documented as of this encounter
--- OUTSIDE RECORDS SUMMARY | 2024-02-15 11:30 | XMS_ITS | Encounter Summary ---
Author Organization [facility] Address [address] [facility] [place] [address] Phone Care Team Providers Care Chemical Cell Changer Name Role Phone Jorge Espinosa Primary Care Provider [phone] Antwon Mirza MD Unavailable Roland Patel MD Unavailable Encounter Details Date Type Department Care Team (Late st Contact Info) Description 06/08/2023 Documentation Only [facility] On[facility] Services [address] [place] [address] Roland Patel MD [address] [place] [address] Social History Tobacco Use Types Packs/Day Years Used Date Smoking Tobacco: Every Day Cigarettes 0.5 50.9 Started: 1974 Smokeless Tobacco: Never Alcohol Use Standard Drinks/Week Comments Yes 0 (1 standard drink = 0.6 oz pure alcohol) Occasionally, never a regular drinker Sex and Gender Information Value Date Recorded Sex Assigned at Not on file 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 Gender Identity Not on file Sexual Orientation Not on file documented as of this encounter Miscellaneous Notes * Interdisciplinary - Genny Go, RD - 06/08/2023 2:33 PM CDT 06/06/2023-weekly wt=95# 14oz, down 6# since start of treatment; Pt keeping track & is taking all of Nutren 1.5 (1.25 cartons 4 times/day), H2O 60ml flush before & after bolus; Drinks 1-2 milk plus protein powder, drinks 2 (12oz) bottle Gatorade; 06/08/23- Uy=546, 06/01/23-Oi=202; Provided pt with Nutren 2.0, to take 4 per day & maintain other fluids, as noted above; (More calorie dense TF will increase calories & decrease fluid intake-for chronic hyponatremia,with improvement the past week), Will see if pt tolerates Nutren 2.0 before submitting change to DME. documented in this encounter Plan of Treatment Not on file documented as of this encounter Visit Diagnoses Not on filedocumented in this encounter Care Teams Chemical Cell Changer Relationship Specialty Start Date End Date Jorge Espinosa PA [address] [place] [address] PCP - General Physician Sheriff'S Officer 04/11/23 Antwon Mirza MD [address] [place] [address] Consulting Physician Medical Oncology 05/04/23 Roland Patel MD [address] [place] [address] Consulting Physician Radiation Oncology 05/04/23 documented as of this encounter
--- OUTSIDE RECORDS SUMMARY | 2024-02-15 11:30 | XMS_ITS | Encounter Summary ---
Author Organization [facility] Address [address] [facility] 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
--- OUTSIDE RECORDS SUMMARY | 2024-02-15 11:30 | XMS_ITS | Encounter Summary ---
Author Organization [facility] Address [address] [facility] 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 Gender Identity Not on file Sexual Orientation Not on file documented as of this encounter Plan of Treatment Not on file documented as of this encounter Procedures Procedure Name Priority Date/Time Associated Diagnosis Comments RAD ONC ARIA SESSION SUMMARY Routine 06/02/2023 1:11 PM CDT documented in this encounter Results * RAD ONC ARIA SESSION SUMMARY (06/02/2023 1:11 PM CDT) Course ID C1 ARIA RO MODEL Course Intent Curative w/chemo ARIA RO MODEL Course Start Date 05/06/2023 11:27 AM ARIA RO MODEL Session Number 12 ARIA RO MODEL Course End Date 05/12/2023 9:16 AM ARIA RO MODEL Course Last Treatment Date 06/02/2023 1:13 PM ARIA RO MODEL Course Elapsed Days 21 ARIA RO MODEL Reference Point ID [id number] ARIA RO MODEL Reference Point Dosage Given to Date [id number] Gy ARIA RO MODEL Reference Point Session Dosage Given 1.46918732 Gy ARIA RO MODEL Plan ID [id number] ARIA RO MODEL Plan Name Oropharynx & Nodes_70Gy ARIA RO MODEL Energy 6X ARIA RO MODEL Plan Fractions Treated to Date 12 ARIA RO MODEL Plan Total Fractions Prescribed 35 ARIA RO MODEL Plan Prescribed Dose Per Fraction 2 Gy ARIA RO MODEL Plan Total Prescribed Dose 7,000 cGy ARIA RO MODEL Plan Primary Reference Point HN_PRP ARIA RO MODEL 06/02/2023 1:11 PM CDT us Unknown Provider RADIATION ONCOLOGY ORDERABLES F inal Result Performing Organization Address City/State/[facility] Co de Phone Number ARIA RO MODEL [address] [place] [address] documented in this encounter Visit Diagnoses Not on filedocumented in this encounter Care Teams Mowing Machine Operator Relationship Specialty Start Date End Date Jorge Espinosa PA [address] [place] [address] PCP - General Physician Piece Cutter 04/11/23 Antwon Mirza MD [address] [place] [address] Consulting Physician Medical Oncology 05/04/23 Roland Patel MD [address] [place] [address] Consulting Physician Radiation Oncology 05/04/23 documented as of this encounter
--- OUTSIDE RECORDS SUMMARY | 2024-02-15 11:30 | XMS_ITS | Encounter Summary ---
Author Organization [facility] Address [address] [facility] 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
--- OUTSIDE RECORDS SUMMARY | 2024-02-15 11:30 | XMS_ITS | Encounter Summary ---
Author Organization [facility] Address [address] [facility] [place] [address] Phone Care Team Providers Care Poultry Pinner Name Role Phone Jorge Espinosa Primary Care Provider [phone] Antwon Mirza MD Unavailable [phone] Roland Patel MD Unavailable [phone] Encounter Details Date Type Department Care Team (Late st Contact Info) Description 06/07/2023 Telephone [facility] Oncology Services [address] [place] [address] Sandee Lira, [place] Social History Tobacco Use Types Packs/Day Years Used Date Smoking Tobacco: Every Day Cigarettes 0.5 50.9 Started: 1974 Smokeless Tobacco: Never Alcohol Use Standard Drinks/Week Comments Yes 0 (1 standard drink = 0.6 oz pure alcohol) Occasionally, never a regular drinker Sex and Gender Information Value Date Recorded Sex Assigned at Not on file 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 Godfrey's daughter, Caroline. Ride service did not pick him up for his appointments today. Caroline said that she is trying to geta different ride service that is more reliable to bring him for his appointments, but expects that he will be here tomorrow. st documented in this encounter Plan of Treatment Not on file documented as of this encounter Visit Diagnoses Not on filedocumented in this encounter Care Teams Poultry Pinner Relationship Specialty Start Date End Date Jorge Espinosa PA [address] [place] [address] PCP - General Physician Media Services Specialist 04/11/23 Antwon Mirza MD [address] [place] [address] Consulting Physician Medical Oncology 05/04/23 Roland Patel MD [address] [place] [address] Consulting Physician Radiation Oncology 05/04/23 documented as of this encounter
--- OUTSIDE RECORDS SUMMARY | 2024-02-15 11:30 | XMS_ITS | Encounter Summary ---
Author Organization [facility] Address [address] [place] [address] Phone Care Team Providers Care Building Appraiser Name Role Phone Jorge Espinosa Primary Care Provider [phone] Antwon Mirza MD Unavailable [phone] Roland Patel MD Unavailable [phone] Reason for Visit * Episode Based Medications (Routine) - Authorized Specialty Diagnoses / Procedures Referred By Contac t Referred To Contact Diagnoses Oropharyngeal cancer (HCC) Antwon Mirza MD [address] [place] [address] Phone: tel: fax: [facility] [address] [place] [address] Phone: tel: fax: Referral ID Status Reason Start Date Expiration Date V isits Requested Visits Authorized [id number] Authorized 05/09/2023 1 24 Encounter Details Date Type Department Care Team (Latest Contact Info) Description 06/16/2023 1:30 PM CDT Clinical Support [facility] [address] [place] [address] Antwon Mirza MD [address] [place] [address] Oropharyngeal cancer (HCC) (Primary Dx) [...] on file 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 Vitals and IV obtained, labs drawn. Medicated per orders, tolerated well. IV removed, gauze and coban applied. Left treatment room in stable condition. documented in this encounter Plan of Treatment Not on file documented as of this encounter Procedures Procedure Name Priority Date/Time Associated Diagnosis Comments CBC WITH AUTO DIFFERENTIAL STAT 06/16/2023 1:22 PM CDT Oropharyngeal cancer (HCC) MAGNESIUM (MG) STAT 06/16/2023 1:22 PM CDT Oropharyngeal cancer (HCC) CMP (COMPREHENSIVE METABOLIC PANEL) STAT 06/16/2023 1:22 PM CDT Oropharyngeal cancer (HCC) COMPLETE BLOOD COUNT (CBC) WITH DIFF STAT 06/16/2023 1:22 PM CDT Oropharyngeal cancer (HCC) documented in this encounter Results * (ABNORMAL) CBC WITH AUTO DIFFERENTIAL (06/16/2023 1:22 PM CDT) WBC 4.19 4.00 - 12.00 10(3)/mcL 06/16/2023 1:30 PM CDT [facility] RBC 4.38(L) 4.40 - 5.80 10(6)/mcL 06/16/2023 1:30 PM CDT [facility] HEMOGLOBIN (HGB) 11.8(L) 13.0 - 16.5 g/dL 06/16/2023 1:30 PM CDT [facility] HEMATOCRIT (HCT) 36.8(L) 38.0 - 50.0 % 06/16/2023 1:30 PM CDT [facility] MCV 84.0 82.0 - 96.0 fL 06/16/2023 1:30 PM CDT [facility] MCH 26.9 26.0 - 32.0 pg 06/16/2023 1:30 PM CDT [facility] MCHC 32.1 31.0 - 36.0 g/dL 06/16/2023 1:30 PM CDT [facility] PLATELET COUNT 354 140 - 440 10(3)/mcL 06/16/2023 1:30 PM CDT [facility] RDW 15.5 11.8 - 15.5 % 06/16/2023 1:30 PM CDT [facility] MPV 8.6 8.0 - 12.6 fL 06/16/2023 1:30 PM CDT [facility] NEUTROPHILS 67.6 40.0 - 68.0 % 06/16/2023 1:30 PM CDT [facility] LYMPHOCYTES 10.7(L) 19.0 - 49.0 % 06/16/2023 1:30 PM CDT [facility] MONOCYTES 19.8(H) 3.0 - 13.0 % 06/16/2023 1:30 PM CDT [facility] EOSINOPHILS 1.4 0.0 - 8.0 % 06/16/2023 1:30 PM CDT [facility] BASOPHILS 0.5 0.0 - 1.0 % 06/16/2023 1:30 PM CDT [facility] ABSOLUTE NEUTROPHILS 2.83 1.40 - 5.30 10(3)/mcL 06/16/2023 1:30 PM CDT [facility] ABSOLUTE LYMPHOCYTES 0.45(L) 0.90 - 3.30 10(3)/mcL 06/16/2023 1:30 PM CDT [facility] ABSOLUTE MONOCYTES 0.83 0.10 - 0.90 10(3)/mcL 06/16/2023 1:30 PM CDT [facility] ABSOLUTE EOSINOPHIL 0.06 0.00 - 0.50 10(3)/mcL 06/16/2023 1:30 PM CDT [facility] ABSOLUTE BASOPHILS 0.02 0.00 - 0.10 10(3)/mcL 06/16/2023 1:30 PM CDT [facility] NRBC PER 100 WBC 0 06/16/19 1:30 PM CDT [facility] Blood Venipuncture / Unknown 06/16/2023 1:22 PM CDT 06/16/2023 1:22 PM CDT Antwon Mirza MD HEMATOLOGY ORDERABLES nal Result [facility] [address] [place] [address] * (ABNORMAL) CMP (COMPREHENSIVE METABOLIC PANEL) (06/16/2023 1:22 PM CDT) SODIUM 134(L) 136 - 145 mmol/L 06/16/2023 1:48 PM CDT [facility] POTASSIUM 3.6 3.5 - 5.1 mmol/L 06/16/2023 1:48 PM CDT [facility] CHLORIDE 97(L) 98 - 107 mmol/L 06/16/2023 1:48 PM CDT [facility] CO2, VENOUS 29 22 - 30 mmol/L 06/16/2023 1:48 PM CDT [facility] ANION GAP 11.6 <18.0 mmol/L 06/16/2023 1:48 PM CDT [facility] GLUCOSE 98 70 - 99 mg/dL 06/16/2023 1:48 PM CDT [facility] BUN 13 8 - 26 mg/dL 06/16/2023 1:48 PM [facility] CREATININE, BLOOD 0.62(L) 0.70 - 1.30 mg/dL 06/16/2023 1:48 PM [facility] BUN/CREATININE RATIO 21(H) 12 - 20 ratio 06/16/2023 1:48 PM T [facility] TOTAL PROTEIN 7.4 6.3 - 8.2 g/dL 06/16/2023 1:48 PM [facility] ALBUMIN 3.1(L) 3.5 - 5.0 g/dL 06/16/2023 1:48 PM [facility] A/G RATIO 0.7(L) 1.0 - 2.2 06/16/2023 1:48 PM [facility] CALCIUM 8.8 8.7 - 10.5 mg/dL 06/16/2023 1:48 PM T [facility] T BILI 0.3 0.2 - 1.2 mg/dL 06/16/2023 1:48 PM [facility] SGOT (AST) 65(H) 5 - 34 U/L 06/16/2023 1:48 PM [facility] SGPT (ALT) 43 0 - 55 U/L 06/16/2023 1:48 PM [facility] ALKALINE PHOSPHATASE 80 40 - 150 U/L 06/16/2023 1:48 PM [facility] IS THE PATIENT REQUIRED TO BE FASTING? No 06/16/2023 1:48 PM [facility] GFR, ESTIMATED >60 >=60 06/16/2023 1:48 PM [facility] Comment: Creatinine Clearance is the preferred criteria for selecting drug dose adjustments in renally impaired patients. ??The GFR is provided as additional pertinent clinical information. GFR is reported in mL/min/1.73 sq m. Calculation based on the Chronic Kidney Disease Epidemiology Collaboration (CKD- EPI) equation refit without adjustment for race. GFR, EST. >60 >=60 024 1:48 PM CDT [facility] GFR, EST. NONAFRICAN >60 >=60 06/16/2023 1:48 PM CDT [facility] Blood Venipuncture / Unknown 06/16/2023 1:22 PM CDT 06/16/2023 1:22 PM CDT Antwon Mirza MD CHEMISTRY ORDERABLES Fin al Result [facility] [address] [place] [address] * MAGNESIUM (MG) (06/16/2023 1:22 PM CDT) MAGNESIUM 2.1 1.6 - 2.6 mg/dL 06/16/2023 1:48 PM CDT [facility] Blood Venipuncture / Unknown 06/16/2023 1:22 PM CDT 06/16/2023 1:22 PM CDT Antwon Mirza MD CHEMISTRY ORDERABLES Fin al Result Performing Organization Address City/[facility]/ZIP Co de Phone Number [facility] [address] [place] [address] documented in this encounter Visit Diagnoses Diagnosis Oropharyngeal cancer (HCC)- Primary Malignant neoplasm of oropharynx, unspecified site documented in this encounter Administered Medications Inactive Administered Medications - up to 3 most recent administrations Medication Order MAR Action Action Date Dose Rate Site 0.9 % sodium chloride solution at 50 mL/hr, Intravenous, CONTINUOUS, Starting on Tabitha 06/16/23 at 1400, Until Tabitha 06/16/23 at 1715Indications:Oropharyngeal cancer (HCC) New Bag 06/16/2023 1:48 PM CDT 250 mL 50 mL/hr cetuximab (ERBITUX) chemo infusion 362 mg 362 mg (rounded from 362.5 mg = 250 mg/m2 ? 1.45 m2 Treatment Plan BSA from Recorded weight), Intravenous, ONCE, 1 dose, On Tabitha 06/16/23 at 1430, Monitor patient for one hour post infusion.Indications:Oropharyn geal cancer (HCC) Given 06/16/2023 2:02 PM CDT 362 mg diphenhydrAMINE (BENADRYL) injection 25 mg 25 mg, Intravenous, ONCE, 1 dose, On Tabitha 06/16/23 at 1400, Give 30 minutes pre-cetuximab.Indications:Orop haryngeal cancer (HCC) Given 06/16/2023 1:49 PM CDT 25 mg documented in this encounter Care Teams Building Appraiser Relationship Specialty Start Date End Date Jorge Espinosa PA [address] [place] [address] PCP - General Physician Spinning Mule Operator 04/11/23 Antwon Mirza MD [address] [place] [address] Consulting Physician Medical Oncology 05/04/23 Roland Patel MD [address] [place] [address] Consulting Physician Radiation Oncology 05/04/23 documented as of this encounter
--- OUTSIDE RECORDS SUMMARY | 2024-02-15 11:30 | XMS_ITS | Encounter Summary ---
Author Organization [facility] Address [address] [facility] 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 documented in this encounter Plan of Treatment Not on file documented as of this encounter Visit Diagnoses Not on filedocumented in this encounter Care Teams Crimping Machine Operator For Metal Relationship Specialty Start Date End Date Jorge Espinosa PA [address] [place] [address] PCP - General Physician Silk Conditioner 04/11/23 Antwon Mirza MD [address] [place] [address] Consulting Physician Medical Oncology 05/04/23 Roland Patel MD [address] [place] [address] Consulting Physician Radiation Oncology 05/04/23 documented as of this encounter
--- OUTSIDE RECORDS SUMMARY | 2024-02-15 11:30 | XMS_ITS | Encounter Summary ---
Author Organization [facility] Care Team Providers Care Audio Visual Aids Director Name Role Phone Jorge Espinosa Primary Care Provider [phone] Antwon Mirza MD Unavailable [phone] Roland Patel MD Unavailable [phone] Encounter Details Date Type Department Care Team (Latest Contact Info) Description 06/14/2023 Travel Social History Tobacco Use Types Packs/Day Years Used Date Smoking Tobacco: Every Day Cigarettes 0.5 50.9 Started: 1974 Smokeless Tobacco: Never Alcohol Use Standard Drinks/Week Comments Yes 0 (1 standard drink = 0.6 oz pure alcohol) Occasionally, never a regular drinker Sex and Gender Information Value Date Recorded Sex Assigned at Not on file 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
--- OUTSIDE RECORDS SUMMARY | 2024-02-15 11:30 | XMS_ITS | Encounter Summary ---
Author Organization [facility] Address [address] [facility] 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 Gender Identity Not on file Sexual Orientation Not on file documented as of this encounter Plan of Treatment Not on file documented as of this encounter Procedures Procedure Name Priority Date/Time Associated Diagnosis Comments RAD ONC ARIA SESSION SUMMARY Routine 06/20/2023 1:13 PM CDT documented in this encounter Results * RAD ONC ARIA SESSION SUMMARY (06/20/2023 1:13 PM CDT) Course ID C1 ARIA RO MODEL Course Intent Curative w/chemo ARIA RO MODEL Course Start Date 05/06/2023 11:27 AM ARIA RO MODEL Session Number 19 ARIA RO MODEL Course End Date 05/12/2023 9:16 AM ARIA RO MODEL Course Last Treatment Date 06/20/2023 1:14 PM ARIA RO MODEL Course Elapsed Days 39 ARIA RO MODEL Reference Point ID [id number] ARIA RO MODEL Reference Point Dosage Given to Date [id number] Gy ARIA RO MODEL Reference Point Session Dosage Given [id number] Gy ARIA RO MODEL Plan ID [id number] ARIA RO MODEL Plan Name Oropharynx & Nodes_70Gy ARIA RO MODEL Energy 6X ARIA RO MODEL Plan Fractions Treated to Date 19 ARIA RO MODEL Plan Total Fractions Prescribed 35 ARIA RO MODEL Plan Prescribed Dose Per Fraction 2 Gy ARIA RO MODEL Plan Total Prescribed Dose 7,000 cGy ARIA RO MODEL Plan Primary Reference Point [id number] ARIA RO MODEL 06/20/2023 1:13 PM CDT us Unknown Provider RADIATION ONCOLOGY ORDERABLES F inal Result Performing Organization Address City/State/[facility] Co de Phone Number ARIA RO MODEL [address] [place] [address] documented in this encounter Visit Diagnoses Not on filedocumented in this encounter Care Teams Odd Job Laborer Relationship Specialty Start Date End Date Jorge Espinosa PA [address] [place] [address] PCP - General Physician Business Services Sales Representative 04/11/23 Antwon Mirza MD [address] [place] [address] Consulting Physician Medical Oncology 05/04/23 Roland Patel MD [address] [place] [address] Consulting Physician Radiation Oncology 05/04/23 documented as of this encounter
--- OUTSIDE RECORDS SUMMARY | 2024-02-15 11:30 | XMS_ITS | Encounter Summary ---
Author Organization [facility] Address [address] [facility] [place] [address] Phone Care Team Providers Care Analytics Lead Name Role Phone Jorge Espinosa Primary Care Provider [phone] Antwon Mirza MD Unavailable [phone] Roland Patel MD Unavailable Reason for Visit * Reason Onset Date Comments Medication Refill 06/10/2023 Encounter Details Date Type Department Care Team (Late st Contact Info) Description 06/10/2023 Refill 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 Next f/u to be scheduled. 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
--- OUTSIDE RECORDS SUMMARY | 2024-02-15 11:30 | XMS_ITS | Encounter Summary ---
Author Organization [facility] Address [address] [facility] 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 Gemma, RN - 06/08/2023 1:40 PM CDT Patient arrived after radiation treatment. Labs obtained per orders via venipuncture. Site covered with gauze and coban. Per radiation tech, the dressing around the patient'sPEG tube has increased drainage. Patient denies any pain or itching, but states I know it needs to be changed. Patient's daughter is currently changing the dressing about every day. Dressing removed with a moderate amountof brownish, kim discharge. Unable to distinguish if it was from tube feeding versus purulence. Skin and tube cleansed with NS. Adhesive removed used to remove tape residue. New gauze dressing applied and secured on 3 sides with tape. Patient educated on importance of keeping the skin dry and changing the dressing whenever there is drainage or when it gets wet. Patient verbalized understanding. Patient left treatment area in stable condition. documented in this encounter Plan of Treatment Not on file documented as of this encounter Procedures Procedure Name Priority Date/Time Associated Diagnosis Comments CBC WITH AUTO DIFFERENTIAL STAT 06/08/2023 1:20 PM CDT Oropharyngeal cancer (HCC) CMP (COMPREHENSIVE METABOLIC PANEL) STAT 06/08/2023 1:20 PM CDT Oropharyngeal cancer (HCC) COMPLETE BLOOD COUNT (CBC) WITH DIFF STAT 06/08/2023 1:20 PM CDT Oropharyngeal cancer (HCC) documented in this encounter Results * (ABNORMAL) CBC WITH AUTO DIFFERENTIAL (06/08/2023 1:20 PM CDT) WBC 4.15 4.00 - 12.00 10(3)/mcL 06/08/2023 2:05 PM CDT [facility] RBC 4.25(L) 4.40 - 5.80 10(6)/mcL 06/08/2023 2:05 PM CDT [facility] HEMOGLOBIN (HGB) 11.4(L) 13.0 - 16.5 g/dL 06/08/2023 2:05 PM CDT [facility] HEMATOCRIT (HCT) 36.1(L) 38.0 - 50.0 % 06/08/2023 2:05 PM CDT [facility] MCV 84.9 82.0 - 96.0 fL 06/08/2023 2:05 PM CDT [facility] MCH 26.8 26.0 - 32.0 pg 06/08/2023 2:05 PM CDT [facility] MCHC 31.6 31.0 - 36.0 g/dL 06/08/2023 2:05 PM [facility] PL[facility] 362 140 - 440 10(3)/mcL 06/08/2023 2:05 PM [facility] RDW 15.5 11.8 - 15.5 % 06/08/2023 2:05 PM [facility] MPV 9.3 8.0 - 12.6 fL 06/08/2023 2:05 PM [facility] NEUTROPHILS 66.3 40.0 - 68.0 % 06/08/2023 2:05 PM [facility] LYMPHOCYTES 14.0(L) 19.0 - 49.0 % 06/08/2023 2:05 PM [facility] MONOCYTES 17.3(H) 3.0 - 13.0 % 06/08/2023 2:05 PM CDT [facility] EOSINOPHILS 1.4 0.0 - 8.0 % 06/08/2023 2:05 PM CDT [facility] BASOPHILS 1.0 0.0 - 1.0 % 06/08/2023 2:05 PM CDT [facility] ABSOLUTE NEUTROPHILS 2.75 1.40 - 5.30 10(3)/mcL 06/08/2023 2:05 PM [facility] ABSOLUTE LYMPHOCYTES 0.58(L) 0.90 - 3.30 10(3)/mcL 06/08/2023 2:05 PM CDT [facility] ABSOLUTE MONOCYTES 0.72 0.10 - 0.90 10(3)/mcL 06/08/2023 2:05 PM CDT [facility] ABSOLUTE EOSINOPHIL 0.06 0.00 - 0.50 10(3)/mcL 06/08/2023 2:05 PM CDT [facility] ABSOLUTE BASOPHILS 0.04 0.00 - 0.10 10(3)/mcL 06/08/2023 2:05 PM CDT [facility] NRBC PER 100 WBC 0 06/08/19 2:05 PM CDT [facility] Blood Venipuncture / Unknown 06/08/2023 1:20 PM CDT 06/08/2023 1:20 PM CDT us Antwon Mirza MD HEMATOLOGY ORDERABLES Fi nal Result [facility] [address] [place] [address] * (ABNORMAL) CMP (COMPREHENSIVE METABOLIC PANEL) (06/08/2023 1:20 PM CDT) SODIUM 135(L) 136 - 145 mmol/L 06/08/2023 2:26 PM CDT [facility] POTASSIUM 4.1 3.5 - 5.1 mmol/L 06/08/2023 2:26 PM CDT [facility] CHLORIDE 99 98 - 107 mmol/L 06/08/2023 2:26 PM CDT [facility] CO2, VENOUS 30 22 - 30 mmol/L 06/08/2023 2:26 PM CDT [facility] ANION GAP 10.1 <18.0 mmol/L 06/08/2023 2:26 PM CDT [facility] GLUCOSE 73 70 - 99 mg/dL 06/08/2023 2:26 PM CDT [facility] BUN 20 8 - 26 mg/dL 06/08/2023 2:26 PM CDT [facility] CREATININE, BLOOD 0.56(L) 0.70 - 1.30 mg/dL 06/08/2023 2:26 PM CDT [facility] BUN/CREATININE RATIO 36(H) 12 - 20 ratio 06/08/2023 2:26 PM CDT [facility] TOTAL PROTEIN 7.1 6.3 - 8.2 g/dL 06/08/2023 2:26 PM CDT [facility] ALBUMIN 3.1(L) 3.5 - 5.0 g/dL 06/08/2023 2:26 PM CDT [facility] A/G RATIO 0.8(L) 1.0 - 2.2 06/08/2023 2:26 PM CDT [facility] CALCIUM 8.9 8.7 - 10.5 mg/dL 06/08/2023 2:26 PM CDT [facility] T BILI 0.3 0.2 - 1.2 mg/dL 06/08/2023 2:26 PM CDT [facility] SGOT (AST) 78(H) 5 - 34 U/L 06/08/2023 2:26 PM T [facility] SGPT (ALT) 61(H) 0 - 55 U/L 06/08/2023 2:26 PM T [facility] ALKALINE PHOSPHATASE 79 40 - 150 U/L 06/08/2023 2:26 PM T [facility] IS THE PATIENT REQUIRED TO BE FASTING? No 06/08/2023 2:26 PM CDT [facility] GFR, ESTIMATED >60 >=60 06/08/2023 2:26 PM CDT [facility] Comment: Creatinine Clearance is the preferred criteria for selecting drug dose adjustments in renally impaired patients. ??The GFR is provided as additional pertinent clinical information. GFR is reported in mL/min/1.73 sq m. Calculation based on the Chronic Kidney Disease Epidemiology Collaboration (CKD- EPI) equation refit without adjustment for race. GFR, EST. >60 >=60 024 2:26 PM CDT [facility] GFR, EST. NONAFRICAN >60 >=60 06/08/2023 2:26 PM CDT [facility] Blood Venipuncture / Unknown 06/08/2023 1:20 PM CDT 06/08/2023 1:20 PM CDT us Antwon Mirza MD CHEMISTRY ORDERABLES Fin al Result [facility] [address] [place] [address] documented in this encounter Visit Diagnoses Diagnosis Oropharyngeal cancer (HCC) Malignant neoplasm of oropharynx, unspecified site documented in this encounter Care Teams Educational Psychologist Relationship Specialty Start Date End Date Jorge Espinosa PA [address] [place] [address] PCP - General Physician Billet Shearer 04/11/23 Antwon Mirza MD [address] [place] [address] Consulting Physician Medical Oncology 05/04/23 Roland Patel MD [address] [place] [address] Consulting Physician Radiation Oncology 05/04/23 documented as of this encounter
--- OUTSIDE RECORDS SUMMARY | 2024-02-15 11:30 | XMS_ITS | Encounter Summary ---
Author Organization [employer] Care Team Providers Care Pasteurizer Name Role Phone Jorge Espinosa Primary Care Provider [phone] Antwon Mirza MD Unavailable [phone] Roland Patel MD Unavailable [phone] Encounter Details Date Type Department Care Team (Latest Contact Info) Description 06/06/2023 Travel Social History Tobacco Use Types Packs/Day Years Used Date Smoking Tobacco: Every Day Cigarettes 0.5 50.9 Started: 1974 Smokeless Tobacco: Never Alcohol Use Standard Drinks/Week Comments Yes 0 (1 standard drink = 0.6 oz pure alcohol) Occasionally, never a regular drinker Sex and Gender Information Value Date Recorded Sex Assigned at Not on file 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
--- OUTSIDE RECORDS SUMMARY | 2024-02-15 11:30 | XMS_ITS | Encounter Summary ---
Author Organization [facility] Address [address] [facility] 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 Gender Identity Not on file Sexual Orientation Not on file documented as of this encounter Plan of Treatment Not on file documented as of this encounter Procedures Procedure Name Priority Date/Time Associated Diagnosis Comments RAD ONC ARIA SESSION SUMMARY Routine 06/14/2023 1:11 PM CDT documented in this encounter Results * RAD ONC ARIA SESSION SUMMARY (06/14/2023 1:11 PM CDT) Course ID C1 ARIA RO MODEL Course Intent Curative w/chemo ARIA RO MODEL Course Start Date 05/06/2023 11:27 AM ARIA RO MODEL Session Number 17 ARIA RO MODEL Course End Date 05/12/2023 9:16 AM ARIA RO MODEL Course Last Treatment Date 06/14/2023 1:13 PM ARIA RO MODEL Course Elapsed Days 33 ARIA RO MODEL Reference Point ID [id number] ARIA RO MODEL Reference Point Dosage Given to Date [id number] Gy ARIA RO MODEL Reference Point Session Dosage Given [id number] Gy ARIA RO MODEL Plan ID [id number] ARIA RO MODEL Plan Name Oropharynx & Nodes_70Gy ARIA RO MODEL Energy 6X ARIA RO MODEL Plan Fractions Treated to Date 17 ARIA RO MODEL Plan Total Fractions Prescribed 35 ARIA RO MODEL Plan Prescribed Dose Per Fraction 2 Gy ARIA RO MODEL Plan Total Prescribed Dose 7,000 cGy ARIA RO MODEL Plan Primary Reference Point HN_PRP ARIA RO MODEL 06/14/2023 1:11 PM CDT us Unknown Provider RADIATION ONCOLOGY ORDERABLES F inal Result Performing Organization Address City/State/[facility] Co de Phone Number ARIA RO MODEL [address] [place] [address] documented in this encounter Visit Diagnoses Not on filedocumented in this encounter Care Teams Supervisor Instrument Mechanics Relationship Specialty Start Date End Date Jorge Espinosa PA [address] [place] [address] PCP - General Physician Major League Baseball Player 04/11/23 Antwon Mirza MD [address] [place] [address] Consulting Physician Medical Oncology 05/04/23 Roland Patel MD [address] [place] [address] Consulting Physician Radiation Oncology 05/04/23 documented as of this encounter
--- OUTSIDE RECORDS SUMMARY | 2024-02-15 11:30 | XMS_ITS | Encounter Summary ---
Author Organization [employer] Care Team Providers Care Mower Mechanic Name Role Phone Jorge Espinosa Primary Care Provider [phone] Antwon Mirza MD Unavailable [phone] Roland Patel MD Unavailable [phone] Encounter Details Date Type Department Care Team (Latest Contact Info) Description 06/08/2023 Travel Social History Tobacco Use Types Packs/Day Years Used Date Smoking Tobacco: Every Day Cigarettes 0.5 50.9 Started: 1974 Smokeless Tobacco: Never Alcohol Use Standard Drinks/Week Comments Yes 0 (1 standard drink = 0.6 oz pure alcohol) Occasionally, never a regular drinker Sex and Gender Information Value Date Recorded Sex Assigned at Not on file 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
--- OUTSIDE RECORDS SUMMARY | 2024-02-15 11:30 | XMS_ITS | Encounter Summary ---
Author Organization [facility] Address [address] [place] [address] Phone Care Team Providers Care Toolsmith Name Role Phone Jorge Espinosa Primary Care Provider [phone] Antwon Mirza MD Unavailable [phone] Roland Patel MD Unavailable [phone] Reason for Visit * Treatment (Routine) - Closed Specialty Diagnoses / Procedures Referred By Contac t Referred To Contact Oncology Diagnoses Oropharyngeal cancer (HCC) Procedures RAD ONC INTENT TO TREAT Roland Patel MD [address] [place] [address] Phone: tel: fax: Referral ID Status Reason Start Date Expiration Date Visits Re quested Visits Authorized [id number] Closed 04/19/2023 1 1 Encounter Details Date Type Department Care Team (Latest Contact Info) Description 06/08/2023 1:00 PM CDT Clinical Support [facility] Oncology Services [address] [place] [id number] Roland Patel MD [address] [place] [address] Discharge Disposition: Discharged to home [...] on file 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 Gender Identity Not on file Sexual Orientation Not on file documented as of this encounter Plan of Treatment Not on file documented as of this encounter Procedures Procedure Name Priority Date/Time Associated Diagnosis Comments RAD ONC ARIA SESSION SUMMARY Routine 06/08/2023 1:10 PM CDT documented in this encounter Results * RAD ONC ARIA SESSION SUMMARY (06/08/2023 1:10 PM CDT) Course ID C1 ARIA RO MODEL Course Intent Curative w/chemo ARIA RO MODEL Course Start Date 05/06/2023 11:27 AM ARIA RO MODEL Session Number 14 ARIA RO MODEL Course End Date 05/12/2023 9:16 AM ARIA RO MODEL Course Last Treatment Date 06/08/2023 1:11 PM ARIA RO MODEL Course Elapsed Days 27 ARIA RO MODEL Reference Point ID [id number] ARIA RO MODEL Reference Point Dosage Given to Date [id number] Gy ARIA RO MODEL Reference Point Session Dosage Given 1.65548368 Gy ARIA RO MODEL Plan ID [id number] ARIA RO MODEL Plan Name Oropharynx & Nodes_70Gy ARIA RO MODEL Energy 6X ARIA RO MODEL Plan Fractions Treated to Date 14 ARIA RO MODEL Plan Total Fractions Prescribed 35 ARIA RO MODEL Plan Prescribed Dose Per Fraction 2 Gy ARIA RO MODEL Plan Total Prescribed Dose 7,000 cGy ARIA RO MODEL Plan Primary Reference Point HN_PRP ARIA RO MODEL 06/08/2023 1:10 PM CDT us Unknown Provider RADIATION ONCOLOGY ORDERABLES F inal Result ARIA RO MODEL [address] [place] [address] documented in this encounter Visit Diagnoses Not on filedocumented in this encounter Care Teams Toolsmith Relationship Specialty Start Date End Date Jorge Espinosa PA [address] [place] [address] PCP - General Physician Order Department Supervisor 04/11/23 Antwon Mirza MD [address] [place] [address] Consulting Physician Medical Oncology 05/04/23 Roland Patel MD [address] [place] [address] Consulting Physician Radiation Oncology 05/04/23 documented as of this encounter
--- OUTSIDE RECORDS SUMMARY | 2024-02-15 11:30 | XMS_ITS | Encounter Summary ---
Author Organization [facility] Address [address] [facility] [place] [address] Phone Care Team Providers Care Online Merchandising Manager Name Role Phone Jorge Espinosa Primary Care Provider [phone] Antwon Mirza MD Unavailable [phone] Roland Patel MD Unavailable Reason for Visit * Reason Comments Cancer Oropharyngeal squamo us cell carcinoma, p16+. 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 Gender Identity Not on file Sexual Orientation Not on file documented as of this encounter Last Filed Vital Signs Vital Sign Reading Time Taken Comments Blood Pressure 154/76 06/06/2023 1:15 PM CDT Pulse 85 06/06/2023 1:15 PM CDT Temperature 36.3 ??C (97.4 ??F) 06/06/2023 1:15 PM CD T Respiratory Rate 16 06/06/2023 1:15 PM CDT Oxygen Saturation 98% 06/06/2023 1:15 PM CDT Inhaled Oxygen Concentration - - Weight 43.5 kg (95 lb 14.4 oz) 06/06/2023 1:15 P M CDT Height 166.4 cm (5' 5.5 ) 06/06/2023 1:15 PM CDT Body Mass Index 15.72 06/06/2023 1:15 PM CDT documented in this encounter Progress Notes * Roland Patel MD - 06/06/2023 1:15 PM CDT [facility] RADIATION ONCOLOGY ON TREATMENT VISIT Patient Name: Aleksey Godfrey Sr. Encounter Date: 06/06/2023 Diagnosis: 1. Encounter for radiotherapy 2. Patient on combined chemotherapy and radiation 3. Oropharyngeal cancer (HCC) 4. Dysphagia, oropharyngeal 5. PEG (percutaneous endoscopic gastrostomy) status (HCC) Site: Oropharynx and regional lymphatics Total Dose to Date: 2800 cGy of 7000 cGy Systemic Therapy: Concurrent weekly cetuximab with cycle 1 05/12/2023, cycle 2 05/19/2023, cycle 3 05/26/2023, cycle 4 06/02/2023. Patient Concerns/Complaints: Today was his 13th treatment and 4th OTV. He had no symptoms of radiation pharyngitis or esophagitis and denied any skin complaints within the radiotherapy ports. During the OTV he was eating chicken noodle soup with crackers without coughing or choking. He continued toget the bulk of his nutrition by his G-tube and was using 5 cans of supplements daily as instructed by dietary. He was seen by himself. Patient Weight: Reviewed. Wt Readings from Last 3 Encounters: 06/06/23 (!) 95 lb 14.4 oz (43.5 kg) 06/02/23 (!) 96 lb 4.8 oz (43.7 kg) 05/31/23 (!) 97 lb 9.6 oz (44.3 kg) Vitals: 06/06/23 1315 BP: 154/76 Pulse: 85 Resp: 16 Temp: 97.4 ??F (36.3 ??C) TempSrc: Temporal SpO2: 98% Weight: (!) 95 lb 14.4 oz (43.5 kg) Height: 5' 5.5 (1.664 m) Physical Examination: ECOG PS of a somewhat marginal 1, stable. He was in no distress and was sitting and breathing comfortably. Oral cavity and oropharynx were without mucositis changes. No acute radiation dermatitis changes. G-tube site was clean. No gross neurologic deficits. Imaging: CBCT was obtained, reviewed and approved today. Impression: The primary encounter diagnosis was Encounter for radiotherapy. Diagnoses of Patient oncombined chemotherapy and radiation, Oropharyngeal cancer (HCC), Dysphagia, oropharyngeal, and PEG (percutaneous endoscopic gastrostomy) status (HCC) were also pertinent to this visit. Currently under radiotherapy treatment and overall doing well. All questions answered. No to minimal side effects thus far not requiring intervention. Plan: Continue radiotherapy and concurrent weekly cetuximab. By: Roland Patel MD 06/06/2023, 1:59 PM CDT Patient Care Team: Jorge Espinosa PA as PCP - General (Physician Paint Supervisor) Antwon Mirza MD as Consulting Physician (Medical Oncology) Roland Patel MD as Consulting Physician (Radiation Oncology) * Lisa Burden RN - 06/06/2023 1:15 PM CDT Patient here today for Radiation Treatment and visit with Dr. Patel. Patient voices no concerns.Patient is aware of rad tx time change for tomorrow and that he will also see Dr. Mirza tomorrow. Cosigned by Roland Patel MD at 06/06/2023 1:27 PM CDT documented in this encounter Plan of Treatment Not on file documented as of this encounter Visit Diagnoses Diagnosis Encounter for radiotherapy- Primary Radiotherapy Patient on combined chemotherapy and radiation Encounter for antineoplastic chemotherapy Oropharyngeal cancer (HCC) Malignant neoplasm of oropharynx, unspecified site Dysphagia, oropharyngeal Dysphagia, oropharyngeal phase PEG (percutaneous endoscopic gastrostomy) status (HCC) documented in this encounter Care Teams Online Merchandising Manager Relationship Specialty Start Date End Date Jorge Espinosa PA [address] [place] [address] PCP - General Physician Paint Supervisor 04/11/23 Antwon Mirza MD [address] [place] [address] Consulting Physician Medical Oncology 05/04/23 Roland Patel MD [address] [place] [address] Consulting Physician Radiation Oncology 05/04/23 documented as of this encounter
--- OUTSIDE RECORDS SUMMARY | 2024-02-15 11:30 | XMS_ITS | Encounter Summary ---
Author Organization [facility] Address [address] [facility] 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 Gender Identity Not on file Sexual Orientation Not on file documented as of this encounter Plan of Treatment Not on file documented as of this encounter Visit Diagnoses Not on filedocumented in this encounter Care Teams Design Engineering Intern Relationship Specialty Start Date End Date Jorge Espinosa PA [address] [place] [address] PCP - General Physician Newspaper Distributor Supervisor 04/11/23 Antwon Mirza MD [address] [place] [address] Consulting Physician Medical Oncology 05/04/23 Roland Patel MD [address] [place] [address] Consulting Physician Radiation Oncology 05/04/23 documented as of this encounter
--- OUTSIDE RECORDS SUMMARY | 2024-02-15 11:30 | XMS_ITS | Encounter Summary ---
Author Organization [facility] Address [address] [place] [address] Phone Care Team Providers Care Telegraph Plant Maintainer Name Role Phone Jorge Espinosa Primary Care Provider [phone] Antwon Mirza MD Unavailable [phone] Roland Patel MD Unavailable [phone] Reason for Visit * Episode Based Medications (Routine) - Authorized Specialty Diagnoses / Procedures Referred By Contac t Referred To Contact Diagnoses Oropharyngeal cancer (HCC) Antwon Mirza MD [address] [place] [address] Phone: tel: fax: [facility] Oncology Services [address] [place] [address] Phone: tel: fax: Referral ID Status Reason Start Date Expiration Date V isits Requested Visits Authorized [id number] Authorized 05/09/2023 1 24 Encounter Details Date Type Department Care Team (Latest Contact Info) Description 06/09/2023 1:30 PM CDT Clinical Support [facility] Oncology Services [address] [place] [address] Antwon Mirza MD [address] [place] [address] Oropharyngeal cancer (HCC) (Primary Dx) [...] on file 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 Gender Identity Not on file Sexual Orientation Not on file documented as of this encounter Last Filed Vital Signs Vital Sign Reading Time Taken Comments Blood Pressure 165/82 06/09/2023 1:19 PM CDT Pulse 63 06/09/2023 1:19 PM CDT Temperature 36.8 ??C (98.2 ??F) 06/09/2023 1:19 PM CD T Respiratory Rate 16 06/09/2023 1:19 PM CDT Oxygen Saturation 98% 06/09/2023 1:19 PM CDT Inhaled Oxygen Concentration - - Weight - - Height - - Body Mass Index - - documented in this encounter Miscellaneous Notes * Interdisciplinary - Veronica Rausch RN - 06/09/2023 1:30 PM CDT Pt arrived for infusion from radiation therapy treatment. VS obtained. IV started x2 attempts. Medication given per MD order and pt tolerated well. IV DC and pt left tx area in stable condition. documented in this [...] mL/hr, Intravenous, ONCE, 1 dose, On Tabitha 06/09/23 at 1330Indications:Oropharyngeal cancer (HCC) New Bag 06/09/2023 1:25 PM CDT 250 mL 100 mL/hr cetuximab (ERBITUX) infusion 362 mg 362 mg (rounded from 362.5 mg = 250 mg/m2 ? 1.45 m2 Treatment Plan BSA from Recorded weight), Intravenous, ONCE, 1 dose, On Tabitha 06/09/23 at 1330, Administer over 1 Hours, Monitor patient for one hour post infusion.Indications:Orophary ngeal cancer (HCC) New Bag 06/09/2023 1:50 PM CDT 362 mg diphenhydrAMINE (BENADRYL) injection 25 mg 25 mg, Intravenous, ONCE, 1 dose, On Tabitha 06/09/23 at 1330, Give 30 minutes pre-cetuximab.Indications:Bárbara pharyngeal cancer (HCC) Given 06/09/2023 1:26 PM CDT 25 mg documented in this encounter Care Teams Telegraph Plant Maintainer Relationship Specialty Start Date End Date Jorge Espinosa PA [address] [place] [address] PCP - General Physician Blacksmith Hammer Operator 04/11/23 Antwon Mirza MD [address] [place] [address] Consulting Physician Medical Oncology 05/04/23 Roland Patel MD [address] [place] [address] Consulting Physician Radiation Oncology 05/04/23 documented as of this encounter
--- OUTSIDE RECORDS SUMMARY | 2024-02-15 11:30 | XMS_ITS | Encounter Summary ---
Author Organization [facility] Address [address] [facility] [place] [address] Phone Care Team Providers Care Tile Grinder Name Role Phone Jorge Espinosa Primary Care Provider [phone] Antwon Mirza MD Unavailable Roland Patel MD Unavailable [phone] Reason for Visit * Reason Comments Cancer Oropharyngeal squamo us cell carcinoma, p16+. 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 Gender Identity Not on file Sexual Orientation Not on file documented as of this encounter Last Filed Vital Signs Vital Sign Reading Time Taken Comments Blood Pressure 165/65 06/14/2023 1:16 PM CDT Pulse 67 06/14/2023 1:16 PM CDT Temperature 35.9 ??C (96.6 ??F) 06/14/2023 1:16 PM CD T Respiratory Rate 18 06/14/2023 1:16 PM CDT Oxygen Saturation 98% 06/14/2023 1:16 PM CDT Inhaled Oxygen Concentration - - Weight 44 kg (96 lb 14.4 oz) 06/14/2023 1:16 PM CDT Height - - Body Mass Index 15.88 06/06/2023 1:15 PM CDT documented in this encounter Progress Notes * Roland Patel MD - 06/14/2023 12:45 PM CDT [facility] RADIATION ONCOLOGY ON TREATMENT VISIT Patient Name: Aleksey Godfrey . Encounter Date: 06/14/2023 Diagnosis: 1. Encounter for radiotherapy 2. Patient on combined chemotherapy and radiation 3. Oropharyngeal cancer (HCC) 4. Dysphagia, oropharyngeal 5. PEG (percutaneous endoscopic gastrostomy) status (HCC) Site: Oropharynx and regional lymphatics Total Dose to Date: 3400 cGy of 7000 cGy Systemic Therapy: Concurrent weekly cetuximab with cycle 1 05/12/2023, cycle 2 05/19/2023, cycle 3 05/26/2023, cycle 4 06/02/2023, cycle 5 06/09/2023. Patient Concerns/Complaints: Today was his 17th treatment and 5th OTV. He still had no symptoms of radiation pharyngitis or esophagitis and denied any skin complaints within the radiotherapy ports. He continued to get the bulk of his nutrition by his G-tube and was taken some foods orally such as chicken noodle soup which he was eating during the visit. He did not come in yesterday for treatment once again because of ride issues. He was seen by himself. Patient Weight: Reviewed. Wt Readings from Last 3 Encounters: 06/14/23 (!) 96 lb 14.4 oz (44 kg) 06/06/23 (!) 95 lb 14.4 oz (43.5 kg) 06/02/23 (!) 96 lb 4.8 oz (43.7 kg) Vitals: 06/14/23 1316 BP: 165/65 BP Location: Right Arm BP Position: Sitting Pulse: 67 Resp: 18 Temp: 96.6 ??F (35.9 ??C) TempSrc: Temporal SpO2: 98% Weight: (!) 96 lb 14.4 oz (44 kg) Physical Examination: ECOG PS of a somewhat marginal 1, stable. He was in no distress and was sitting and breathing comfortably. Oral cavity and oropharynx remained without mucositis changes. No acute radiation dermatitis changes. G- tube site was clean. No gross neurologic deficits. [...] thus far not requiring intervention. Plan: Continue radiotherapy. By: Roland Patel MD 06/14/2023, 1:41 PM CDT Patient Care Team: Jorge Espinosa PA as PCP - General (Physician Publishing Manager) Antwon Mirza MD as Consulting Physician (Medical Oncology) Roland Patel MD as Consulting Physician (Radiation Oncology) documented in this encounter Miscellaneous Notes * Interdisciplinary - Thu Siu RN - 06/14/2023 12:45 PM CDT Patient here for OTV with Dr Patel Patient placed in room for appointment.Vitals taken patient denies changes or falls. Medication list reviewed. Cosigned by Roland Patel MD at 06/14/2023 1:42 PM CDT documented in this encounter Plan of Treatment Not on file documented as of this encounter Visit Diagnoses Diagnosis Encounter for radiotherapy- Primary Radiotherapy Patient on combined chemotherapy and radiation Encounter for antineoplastic chemotherapy Oropharyngeal cancer (HCC) Malignant neoplasm of oropharynx, unspecified site Dysphagia, oropharyngeal Dysphagia, oropharyngeal phase PEG (percutaneous endoscopic gastrostomy) status (HCC) documented in this encounter Care Teams Tile Grinder Relationship Specialty Start Date End Date Jorge Espinosa PA [address] [place] [address] PCP - General Physician Publishing Manager 04/11/23 Antwon Mirza MD [address] [place] [address] Consulting Physician Medical Oncology 05/04/23 Roland Patel MD [address] [place] [address] Consulting Physician Radiation Oncology 05/04/23 documented as of this encounter
--- OUTSIDE RECORDS SUMMARY | 2024-02-15 11:30 | XMS_ITS | Encounter Summary ---
Author Organization [facility] Care Team Providers Care Compounding Pharmacy Technician Name Role Phone Jorge Espinosa Primary Care Provider [phone] Antwon Mirza MD Unavailable [phone] Roland Patel MD Unavailable [phone] Encounter Details Date Type Department Care Team (Latest Contact Info) Description 06/02/2023 Travel Social History Tobacco Use Types Packs/Day Years Used Date Smoking Tobacco: Every Day Cigarettes 0.5 50.9 Started: 1974 Smokeless Tobacco: Never Alcohol Use Standard Drinks/Week Comments Yes 0 (1 standard drink = 0.6 oz pure alcohol) Occasionally, never a regular drinker Sex and Gender Information Value Date Recorded Sex Assigned at Not on file 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 Gender Identity Not on file Sexual Orientation Not on file documented as of this encounter Plan of Treatment Not on file documented as of this encounter Visit Diagnoses Not on filedocumented in this encounter Care Teams Compounding Pharmacy Technician Relationship Specialty Start Date End Date Jorge Espinosa PA [address] [place] [address] PCP - General Physician Bowling Or Skating Front Desk Clerk 04/11/23 Antwon Mirza MD [address] [place] [address] Consulting Physician Medical Oncology 05/04/23 Roland Patel MD [address] [place] [address] Consulting Physician Radiation Oncology 05/04/23 documented as of this encounter
--- OUTSIDE RECORDS SUMMARY | 2024-02-15 11:30 | XMS_ITS | Encounter Summary ---
Author Organization [facility] Address [address] [facility] [place] [address] Phone Care Team Providers Care Scheduler Maintenance Name Role Phone Jorge Espinosa Primary Care Provider Antwon Mirza MD Unavailable [phone] Roland Patel MD Unavailable Encounter Details Date Type Department Care Team (Late st Contact Info) Description 06/16/2023 Documentation Only [facility] [address] [place] [address] Roland Patel MD [address] [place] [address] Social History Tobacco Use Types Packs/Day Years Used Date Smoking Tobacco: Every Day Cigarettes 0.5 50.9 Started: 1973 Smokeless Tobacco: Never Alcohol Use Standard Drinks/Week Comments Yes 0 (1 standard drink = 0.6 oz pure alcohol) Occasionally, never a regular drinker Sex and Gender Information Value Date Recorded Sex Assigned at Not on file 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 B: current PEG TF: Nutren 1.5, 5 cartons with 60ml H2O before & after each bolus Home Diet NPO, sips of Gatorade Nutrition Impact Symptoms: weight loss, swallowing difficulties Labs noted: 06/08/23-albumin=3.1, BS=73, Vn=315, K=4.1, BUN=20, creatinine=0.56, EGFR>60, 06/01/23-Um=399; 05/25/23-Bd=445; Meds noted: FeSO4, zofran, compazine Past Medical History: Past Medical History Positives Diagnosis Date Edentulous 2021 His remaining natural dentition was removed in 2020 or 2021. Hypertension Current Weight: 96# 14oz -06/13/2023 Height: 5' 5.5 BMI: 15.88 BMI weight range for height: 114-149# Treatment wt Hx: 95# 14oz -06/06/2023 97# 9oz -05/31/2023 99# 6oz -05/25/2023 99# 5oz -05/16/2023 102# 9oz -05/12/2023 (start of treatment) %Wt Loss: 6.5% (since start of radiation treatment) A.S.P.E.N Clinical Characteristics to Support Malnutrition Diagnosis Clinical Characteristic Clinical Assessment Criteria/Location Energy Intake Inadequate Inadequate to maintain weight Weight Loss Significant Additional 6.5% (previous loss 11%) Subcutaneous Fat Loss Severe Triceps, Buccal, Orbital Muscle Loss Severe [place], Clavicle, Acromion, Patella, inner Thigh, Calf Fluid Accumulation None Noted Hand Civil Preparedness Training Officer Strength Unable to Assess A minimum of two characteristics are recommended for diagnosis of either moderate (non-severe) or severe malnutrition. These characteristics are indicative of severe malnutrition in the context of chronic illness. Patient's estimated needs:(calorie needs increased previous level not maintaining wt) Calories: 2000 (45kcal/kg) Protein: 88gm (2gm/kg) Fluids: 1300-1500ml Interventions: current PEG TF not providing adequate calories for weight maintenance & pt also needs more calorie dense feeding to maintain sodium levels; Provided samples of Nutren 2.0 & pt tolerated this product; recommend PEG TF change to Nutren 2.0. TF recomendation: Nutren 2.0, 4 cartons/day with 60ml H2O flush before & after each bolus. PEG TF Will provide: 1000ml Nutren 2.0 (690ml free H2O), 2000 calories, 84gm PRO, 216gm CHO, 2100mgK+, H2O flush: 480ml (1480ml total TF + H2O &/or 1170ml total free water) By: LAURIE GO RD; 06/16/2023, 1:40 PM CDT documented in this encounter Plan of Treatment Not on file documented as of this encounter Visit Diagnoses Not on filedocumented in this encounter Care Teams Scheduler Maintenance Relationship Specialty Start Date End Date Jorge Espinosa PA [address] [place] [address] PCP - General Physician Remelter 04/11/23 Antwon Mirza MD [address] [place] [address] Consulting Physician Medical Oncology 05/04/23 Roland Patel MD [address] [place] [address] Consulting Physician Radiation Oncology 05/04/23 documented as of this encounter
--- OUTSIDE RECORDS SUMMARY | 2024-02-15 11:30 | XMS_ITS | Encounter Summary ---
Author Organization [facility] Address [address] [facility] [place] [address] Phone Care Team Providers Care Supervisor Parking Lot Name Role Phone Jorge Espinosa Primary Care Provider [phone] Antwon Mirza MD Unavailable Roland Patel MD Unavailable Reason for Visit * Reason Comments Cancer Oropharyngeal squamo us cell carcinoma, p16+. 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 Gender Identity Not on file Sexual Orientation Not on file documented as of this encounter Last Filed Vital Signs Vital Sign Reading Time Taken Comments Blood Pressure 172/71 06/20/2023 1:13 PM CDT Pulse 65 06/20/2023 1:13 PM CDT Temperature 36.9 ??C (98.4 ??F) 06/20/2023 1:13 PM CD T Respiratory Rate 16 06/20/2023 1:13 PM CDT Oxygen Saturation 98% 06/20/2023 1:13 PM CDT Inhaled Oxygen Concentration - - Weight 43.3 kg (95 lb 6.4 oz) 06/20/2023 1:13 PM CDT Height 166.4 cm (5' 5.5 ) 06/20/2023 1:13 PM CDT Body Mass Index 15.63 06/20/2023 1:13 PM CDT documented in this encounter Progress Notes * Roland Patel MD - 06/20/2023 1:15 PM CDT [facility] RADIATION ONCOLOGY ON TREATMENT VISIT Patient Name: Aleksey Godfrey Encounter Date: 06/20/2023 Diagnosis: 1. Encounter for radiotherapy 2. Patient on combined chemotherapy and radiation 3. Oropharyngeal cancer (HCC) 4. Dysphagia, oropharyngeal 5. PEG (percutaneous endoscopic gastrostomy) status (HCC) Site: Oropharynx and regional lymphatics Total Dose to Date: 3800 cGy of 7000 cGy Systemic Therapy: Concurrent weekly cetuximab with cycle 1 05/12/2023, cycle 2 05/19/2023, cycle 3 05/26/2023, cycle 4 06/02/2023, cycle 5 06/09/2023, cycle 6 06/16/2023. Patient Concerns/Complaints: Today was his 19th treatment and 6th OTV. No new complaints or concerns. He denied symptoms of radiation pharyngitis or esophagitis. He also had no skin complaints withinthe treatment ports. He was seen by himself. Patient Weight: Reviewed. Wt Readings from Last 3 Encounters: 06/20/23 (!) 95 lb 6.4 oz (43.3 kg) 06/14/23 (!) 96 lb 14.4 oz (44 kg) 06/06/23 (!) 95 lb 14.4 oz (43.5 kg) Vitals: 06/20/23 1313 BP: 172/71 Pulse: 65 Resp: 16 Temp: 98.4 ??F (36.9 ??C) TempSrc: Temporal SpO2: 98% Weight: (!) 95 lb 6.4 oz (43.3 kg) Height: 5' 5.5 (1.664 m) Physical Examination: ECOG PS of a somewhat marginal 1, stable. Oral cavity was clear. No radiotherapy related skin changes. G-tube site was clean. No gross neurologic deficits. All-in-all he actually to my ???eyeball test?? looked a little bit more fit or stronger than he did before the start of treatment. Imaging: CBCT was obtained, reviewed and approved [...] Plan: Continue radiotherapy and concurrent weekly cetuximab. Continue with G- tube feedings as per dietary. By: Roland Patel MD 06/20/2023, 1:56 PM CDT Patient Care Team: Jorge Espinosa PA as PCP - General (Physician Pneumatic Systems Operator) Antwon Mirza MD as Consulting Physician (Medical Oncology) Roland Patel MD as Consulting Physician (Radiation Oncology) * Lisa Burden RN - 06/20/2023 1:15 PM CDT Patient here today for Radiation Treatment and visit with Dr. Patel. Patient states he is takingtube feeding now 4 times/day. Weight continues to decrease. Patient will take an extra tube feedingto make 5times/day as tolerated. He states he is eating some orally as well. He states he is also cleansing tube site daily with soap/water. Infusion nurses notified of no further infusions/lab appointments made to date and they will add appointments for labs Tuesday/infusion at usual times following radiation. Patient is aware Cosigned by Roland Patel MD at 06/20/2023 1:39 PM CDT documented in this encounter Plan of Treatment Not on file documented as of this encounter Visit Diagnoses Diagnosis Encounter for radiotherapy- Primary Radiotherapy Patient on combined chemotherapy and radiation Encounter for antineoplastic chemotherapy Oropharyngeal cancer (HCC) Malignant neoplasm of oropharynx, unspecified site Dysphagia, oropharyngeal Dysphagia, oropharyngeal phase PEG (percutaneous endoscopic gastrostomy) status (HCC) documented in this encounter Care Teams Supervisor Parking Lot Relationship Specialty Start Date End Date Jorge Espinosa PA [address] [place] [address] PCP - General Physician Pneumatic Systems Operator 04/11/23 Antwon Mirza MD [address] [place] [address] Consulting Physician Medical Oncology 05/04/23 Roland Patel MD [address] [place] [address] Consulting Physician Radiation Oncology 05/04/23 documented as of this encounter
--- OUTSIDE RECORDS SUMMARY | 2024-02-15 11:30 | XMS_ITS | Encounter Summary ---
Author Organization [facility] Care Team Providers Care Sole Conditioner Name Role Phone Jorge Espinosa Primary Care Provider [phone] Antwon Mirza MD Unavailable [phone] Roland Patel MD Unavailable [phone] Encounter Details Date Type Department Care Team (Latest Contact Info) Description 06/20/2023 Travel Social History Tobacco Use Types Packs/Day Years Used Date Smoking Tobacco: Every Day Cigarettes 0.5 50.9 Started: 1974 Smokeless Tobacco: Never Alcohol Use Standard Drinks/Week Comments Yes 0 (1 standard drink = 0.6 oz pure alcohol) Occasionally, never a regular drinker Sex and Gender Information Value Date Recorded Sex Assigned at Not on file 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
--- OUTSIDE RECORDS SUMMARY | 2024-02-15 11:30 | XMS_ITS | Encounter Summary ---
Author Organization [facility] Care Team Providers Care Oracle Hyperion Consultant Name Role Phone Jorge Espinosa Primary Care Provider [phone] Antwon Mirza MD Unavailable [phone] Roland Patel MD Unavailable [phone] Encounter Details Date Type Department Care Team (Latest Contact Info) Description 06/09/2023 Travel Social History Tobacco Use Types Packs/Day Years Used Date Smoking Tobacco: Every Day Cigarettes 0.5 50.9 Started: 1974 Smokeless Tobacco: Never Alcohol Use Standard Drinks/Week Comments Yes 0 (1 standard drink = 0.6 oz pure alcohol) Occasionally, never a regular drinker Sex and Gender Information Value Date Recorded Sex Assigned at Not on file 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
--- OUTSIDE RECORDS SUMMARY | 2024-02-15 11:30 | XMS_ITS | Encounter Summary ---
Author Organization [facility] Care Team Providers Care Carpenter Helper Hardwood Flooring Name Role Phone Jorge Espinosa Primary Care Provider [phone] Antwon Mirza MD Unavailable [phone] Roland Patel MD Unavailable [phone] Encounter Details Date Type Department Care Team (Latest Contact Info) Description 06/10/2023 Travel Social History Tobacco Use Types Packs/Day Years Used Date Smoking Tobacco: Every Day Cigarettes 0.5 50.9 Started: 1974 Smokeless Tobacco: Never Alcohol Use Standard Drinks/Week Comments Yes 0 (1 standard drink = 0.6 oz pure alcohol) Occasionally, never a regular drinker Sex and Gender Information Value Date Recorded Sex Assigned at Not on file 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 Gender Identity Not on file Sexual Orientation Not on file documented as of this encounter Plan of Treatment Not on file documented as of this encounter Visit Diagnoses Not on filedocumented in this encounter Care Teams Carpenter Helper Hardwood Flooring Relationship Specialty Start Date End Date Jorge Espinosa PA [address] [place] [address] PCP - General Physician Music Engineer 04/11/23 Antwon Mirza MD [address] [place] [address] Consulting Physician Medical Oncology 05/04/23 Roland Patel MD [address] [place] [address] Consulting Physician Radiation Oncology 05/04/23 documented as of this encounter
--- OUTSIDE RECORDS SUMMARY | 2024-02-15 11:30 | XMS_ITS | Encounter Summary ---
Author Organization [facility] Address [address] [facility] 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 Gender Identity Not on file Sexual Orientation Not on file documented as of this encounter Plan of Treatment Not on file documented as of this encounter Procedures Procedure Name Priority Date/Time Associated Diagnosis Comments RAD ONC ARIA SESSION SUMMARY Routine 06/10/2023 1:15 PM CDT documented in this encounter Results * RAD ONC ARIA SESSION SUMMARY (06/10/2023 1:15 PM CDT) Course ID C1 ARIA RO MODEL Course Intent Curative w/chemo ARIA RO MODEL Course Start Date 05/06/2023 11:27 AM ARIA RO MODEL Session Number 16 ARIA RO MODEL Course End Date 05/12/2023 9:16 AM ARIA RO MODEL Course Last Treatment Date 06/10/2023 1:17 PM ARIA RO MODEL Course Elapsed Days 29 ARIA RO MODEL Reference Point ID [id number] ARIA RO MODEL Reference Point Dosage Given to Date [id number] Gy ARIA RO MODEL Reference Point Session Dosage Given [id number] Gy ARIA RO MODEL Plan ID [id number] ARIA RO MODEL Plan Name Oropharynx & Nodes_70Gy ARIA RO MODEL Energy 6X ARIA RO MODEL Plan Fractions Treated to Date 16 ARIA RO MODEL Plan Total Fractions Prescribed 35 ARIA RO MODEL Plan Prescribed Dose Per Fraction 2 Gy ARIA RO MODEL Plan Total Prescribed Dose 7,000 cGy ARIA RO MODEL Plan Primary Reference Point [id number] ARIA RO MODEL 06/10/2023 1:15 PM CDT us Unknown Provider RADIATION ONCOLOGY ORDERABLES F inal Result Performing Organization Address City/State/[facility] Co de Phone Number ARIA RO MODEL [address] [place] [address] documented in this encounter Visit Diagnoses Not on filedocumented in this encounter Care Teams Data Communications Analyst Relationship Specialty Start Date End Date Jorge Espinosa PA [address] [place] [address] PCP - General Physician Cataloging Assistant 04/11/23 Antwon Mirza MD [address] [place] [address] Consulting Physician Medical Oncology 05/04/23 Roland Patel MD [address] [place] [address] Consulting Physician Radiation Oncology 05/04/23 documented as of this encounter
--- OUTSIDE RECORDS SUMMARY | 2024-02-15 11:30 | XMS_ITS | Encounter Summary ---
Author Organization [facility] Care Team Providers Care Press Hand Name Role Phone Jorge Espinosa Primary Care Provider [phone] Antwon Mirza MD Unavailable [phone] Roland Patel MD Unavailable [phone] Encounter Details Date Type Department Care Team (Latest Contact Info) Description 06/16/2023 Travel Social History Tobacco Use Types Packs/Day Years Used Date Smoking Tobacco: Every Day Cigarettes 0.5 50.9 Started: 1974 Smokeless Tobacco: Never Alcohol Use Standard Drinks/Week Comments Yes 0 (1 standard drink = 0.6 oz pure alcohol) Occasionally, never a regular drinker Sex and Gender Information Value Date Recorded Sex Assigned at Not on file 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
--- OUTSIDE RECORDS SUMMARY | 2024-02-15 11:31 | XMS_ITS | Encounter Summary ---
Author Organization [facility] Address [address] [facility] 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 Labs drawn peripherally per MD order. Site secured with gauze and coban. Patient left lab room safely. documented in this encounter Plan of Treatment Not on file documented as of this encounter Procedures Procedure Name Priority Date/Time Associated Diagnosis Comments CBC WITH AUTO DIFFERENTIAL STAT 06/01/2023 1:43 PM CDT Oropharyngeal cancer (HCC) CMP (COMPREHENSIVE METABOLIC PANEL) STAT 06/01/2023 1:43 PM CDT Oropharyngeal cancer (HCC) COMPLETE BLOOD COUNT (CBC) WITH DIFF STAT 06/01/2023 1:43 PM CDT Oropharyngeal cancer (HCC) documented in this encounter Results * (ABNORMAL) CBC WITH AUTO DIFFERENTIAL (06/01/2023 1:43 PM CDT) WBC 5.46 4.00 - 12.00 10(3)/mcL 06/01/2023 2:16 PM CDT [facility] RBC 4.57 4.40 - 5.80 10(6)/mcL 06/01/2023 2:16 PM CDT [facility] HEMOGLOBIN (HGB) 12.2(L) 13.0 - 16.5 g/dL 06/01/2023 2:16 PM CDT [facility] HEMATOCRIT (HCT) 38.5 38.0 - 50.0 % 06/01/2023 2:16 PM CDT [facility] MCV 84.2 82.0 - 96.0 fL 06/01/2023 2:16 PM CDT [facility] MCH 26.7 26.0 - 32.0 pg 06/01/2023 2:16 PM CDT [facility] MCHC 31.7 31.0 - 36.0 g/dL 06/01/2023 2:16 PM CDT [facility] PLATELET COUNT 495(H) 140 - 440 10(3)/[facility] 06/01/2023 2:16 PM CDT [facility] RDW 14.6 11.8 - 15.5 % 06/01/2023 2:16 PM CDT [facility] MPV 9.3 8.0 - 12.6 fL 06/01/2023 2:16 PM CDT [facility] NEUTROPHILS 75.1(H) 40.0 - 68.0 % 06/01/2023 2:16 PM CDT [facility] LYMPHOCYTES 11.7(L) 19.0 - 49.0 % 06/01/2023 2:16 PM CDT [facility] MONOCYTES 10.3 3.0 - 13.0 % 06/01/2023 2:16 PM CDT [facility] EOSINOPHILS 1.8 0.0 - 8.0 % 06/01/2023 2:16 PM CDT [facility] BASOPHILS 1.1(H) 0.0 - 1.0 % 06/01/2023 2:16 PM CDT [facility] ABSOLUTE NEUTROPHILS 4.10 1.40 - 5.30 10(3)/mcL 06/01/2023 2:16 PM CDT [facility] ABSOLUTE LYMPHOCYTES 0.64(L) 0.90 - 3.30 10(3)/[facility] 06/01/2023 2:16 PM CDT [facility] ABSOLUTE MONOCYTES 0.56 0.10 - 0.90 10(3)/[facility] 06/01/2023 2:16 PM CDT [facility] ABSOLUTE EOSINOPHIL 0.10 0.00 - 0.50 10(3)/[facility] 06/01/2023 2:16 PM CDT [facility] ABSOLUTE BASOPHILS 0.06 0.00 - 0.10 10(3)/[facility] 06/01/2023 2:16 PM CDT [facility] NRBC PER 100 WBC 0 06/01/19 2:16 PM CDT [facility] Blood Venipuncture / Unknown 06/01/2023 1:43 PM CDT 06/01/2023 1:43 PM CDT us Antwon Mirza MD HEMATOLOGY ORDERABLES Fi nal Result [facility] [address] [place] [address] * (ABNORMAL) CMP (COMPREHENSIVE METABOLIC PANEL) (06/01/2023 1:43 PM CDT) SODIUM 132(L) 136 - 145 mmol/L 06/01/2023 2:35 PM CDT [facility] POTASSIUM 4.0 3.5 - 5.1 mmol/L 06/01/2023 2:35 PM CDT [facility] CHLORIDE 97(L) 98 - 107 mmol/L 06/01/2023 2:35 PM CDT [facility] CO2, VENOUS 25 22 - 30 mmol/L 06/01/2023 2:35 PM CDT [facility] ANION GAP 14.0 <18.0 mmol/L 06/01/2023 2:35 PM CDT [facility] GLUCOSE 87 70 - 99 mg/dL 06/01/2023 2:35 PM CDT [facility] BUN 27(H) 8 - 26 mg/dL 06/01/2023 2:35 PM CDT [facility] CREATININE, BLOOD 0.55(L) 0.70 - 1.30 mg/dL 06/01/2023 2:35 PM CDT [facility] BUN/CREATININE RATIO 49(H) 12 - 20 ratio 06/01/2023 2:35 PM CDT [facility] TOTAL PROTEIN 8.1 6.3 - 8.2 g/dL 06/01/2023 2:35 PM CDT [facility] ALBUMIN 3.4(L) 3.5 - 5.0 g/dL 06/01/2023 2:35 PM CDT [facility] A/G RATIO 0.7(L) 1.0 - 2.2 06/01/2023 2:35 PM CDT [facility] CALCIUM 9.1 8.7 - 10.5 mg/dL 06/01/2023 2:35 PM CDT [facility] T BILI 0.3 0.2 - 1.2 mg/dL 06/01/2023 2:35 PM CDT [facility] SGOT (AST) 110(H) 5 - 34 U/L 06/01/2023 2:35 PM CDT [facility] SGPT (ALT) 76(H) 0 - 55 U/L 06/01/2023 2:35 PM CDT [facility] ALKALINE PHOSPHATASE 83 40 - 150 U/L 06/01/2023 2:35 PM CDT [facility] IS THE PATIENT REQUIRED TO BE FASTING? No 06/01/2023 2:35 PM CDT [facility] GFR, ESTIMATED >60 >=60 06/01/2023 2:35 PM CDT [facility] Comment: Creatinine Clearance is the preferred criteria for selecting drug dose adjustments in renally impaired patients. ??The GFR is provided as additional pertinent clinical information. GFR is reported in mL/min/1.73 sq m. Calculation based on the Chronic Kidney Disease Epidemiology Collaboration (CKD- EPI) equation refit without adjustment for race. GFR, EST. >60 >=60 024 2:35 PM CDT [facility] GFR, EST. NONAFRICAN >60 >=60 06/01/2023 2:35 PM CDT [facility] Blood Venipuncture / Unknown 06/01/2023 1:43 PM CDT 06/01/2023 1:43 PM CDT us Antwon Mirza MD CHEMISTRY ORDERABLES Fin al Result [facility] [address] [facility] [address] documented in this encounter Visit Diagnoses Diagnosis Oropharyngeal cancer (HCC) Malignant neoplasm of oropharynx, unspecified site documented in this encounter Care Teams Global Director Air And Climate Change Relationship Specialty Start Date End Date Jorge Espinosa PA [address] [place] [address] PCP - General Physician Watermaster 04/11/23 Antwon Mirza MD [address] [place] [address] Consulting Physician Medical Oncology 05/04/23 Roland Patel MD [address] [place] [address] Consulting Physician Radiation Oncology 05/04/23 documented as of this encounter
--- OUTSIDE RECORDS SUMMARY | 2024-02-15 11:31 | XMS_ITS | Encounter Summary ---
Author Organization [facility] Address [address] 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 03/30/2023 lidocaine (LIDODERM) 5 % Patch 1 Patch by Transdermal route every 12 hours. lisinopril (PRINIVIL, ZESTRIL) 10 MG Tablet 10 mg by Enteral route daily. 03/31/2023 5 nortriptyline (PAMELOR) 10 MG Capsule take 30 mg per G Tube nightly. 10/mg/5 ml Take 15 ml 03/16/2023 ondansetron (ZOFRAN-ODT) 4 MG TABLET DISPERSIBLE Take 4 mg by mouth every 8 hours as needed. 03/30/2023 escitalopram (LEXAPRO) 5 MG/5ML Solution Take 20 mg by mouth daily. 03/30/2023 4 oxyCODONE (ROXICODONE) 5 MG/5ML Solution 5 mg by Enteral route as needed. 03/30/2023 4 documented as of this encounter Plan of Treatment Not on file documented as of this encounter Procedures Procedure Name Priority Date/Time Associated Diagnosis Comments CT REFERENCE IMAGES FOR IMAGE IMPORT Routine 04/19/2023 9:[address] REFERENCE IMAGES FOR IMAGE IMPORT Routine 04/19/2023 9:33 AM CDT PET REFERENCE IMAGES FOR IMPORT Routine 04/19/2023 9:20 AM CDT documented in this encounter Results * CT REFERENCE IMAGES FOR IMAGE IMPORT (04/19/2023 9:34 AM CDT) Only the most recent of2 resultswithin the time period is included. Roland Patel MD [facility] CT ORDERABLES Final Result * PET REFERENCE IMAGES FOR IMPORT (04/19/2023 9:20 AM CDT) Roland Patel MD [facility] [place] ORDERABLES Final Result documented in this encounter Visit Diagnoses Not on filedocumented in this encounter Care Teams Sound Person Relationship Specialty Start Date End Date Jorge Espinosa PA [address] [place] [address] PCP - General Physician District Court Justice 04/11/23 documented as of this encounter
--- OUTSIDE RECORDS SUMMARY | 2024-02-15 11:31 | XMS_ITS | Encounter Summary ---
Author Organization [facility] Address [address] [facility] 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 Gender Identity Not on file Sexual Orientation Not on file documented as of this encounter Plan of Treatment Not on file documented as of this encounter Procedures Procedure Name Priority Date/Time Associated Diagnosis Comments RAD ONC ARIA SESSION SUMMARY Routine 05/25/2023 1:15 PM CDT documented in this encounter Results * RAD ONC ARIA SESSION SUMMARY (05/25/2023 1:15 PM CDT) Course ID C1 ARIA RO MODEL Course Intent Curative w/chemo ARIA RO MODEL Course Start Date 05/06/2023 11:27 AM ARIA RO MODEL Session Number 7 ARIA RO MODEL Course End Date 05/12/2023 9:16 AM ARIA RO MODEL Course Last Treatment Date 05/25/2023 1:16 PM ARIA RO MODEL Course Elapsed Days 13 ARIA RO MODEL Reference Point ID [id number] ARIA RO MODEL Reference Point Dosage Given to Date [id number] Gy ARIA RO MODEL Reference Point Session Dosage Given [id number] Gy ARIA RO MODEL Plan ID [id number] ARIA RO MODEL Plan Name Oropharynx & Nodes_70Gy ARIA RO MODEL Energy 6X ARIA RO MODEL Plan Fractions Treated to Date 7 ARIA RO MODEL Plan Total Fractions Prescribed 35 ARIA RO MODEL Plan Prescribed Dose Per Fraction 2 Gy ARIA RO MODEL Plan Total Prescribed Dose 7,000 cGy ARIA RO MODEL Plan Primary Reference Point HN_PRP ARIA RO MODEL 05/25/2023 1:15 PM CDT us Unknown Provider RADIATION ONCOLOGY ORDERABLES F inal Result Performing Organization Address City/State/[facility] Co de Phone Number ARIA RO MODEL [address] [place] [address] documented in this encounter Visit Diagnoses Not on filedocumented in this encounter Care Teams Planning Engineer Relationship Specialty Start Date End Date Jorge Espinosa PA [address] [place] [address] PCP - General Physician Asparagus Buncher 04/11/23 Antwon Mirza MD [address] [place] [address] Consulting Physician Medical Oncology 05/04/23 Roland Patel MD [address] [place] [address] Consulting Physician Radiation Oncology 05/04/23 documented as of this encounter
--- OUTSIDE RECORDS SUMMARY | 2024-02-15 11:31 | XMS_ITS | Encounter Summary ---
Author Organization [facility] Address [address] [facility] 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 Gender Identity Not on file Sexual Orientation Not on file documented as of this encounter Plan of Treatment Not on file documented as of this encounter Procedures Procedure Name Priority Date/Time Associated Diagnosis Comments RAD ONC ARIA SESSION SUMMARY Routine 06/01/2023 1:21 PM CDT documented in this encounter Results * RAD ONC ARIA SESSION SUMMARY (06/01/2023 1:21 PM CDT) Course ID C1 ARIA RO MODEL Course Intent Curative w/chemo ARIA RO MODEL Course Start Date 05/06/2023 11:27 AM ARIA RO MODEL Session Number 11 ARIA RO MODEL Course End Date 05/12/2023 9:16 AM ARIA RO MODEL Course Last Treatment Date 06/01/2023 1:23 PM ARIA RO MODEL Course Elapsed Days 20 ARIA RO MODEL Reference Point ID [id number] ARIA RO MODEL Reference Point Dosage Given to Date [id number] Gy ARIA RO MODEL Reference Point Session Dosage Given 1.97971163 Gy ARIA RO MODEL Plan ID [id number] ARIA RO MODEL Plan Name Oropharynx & Nodes_70Gy ARIA RO MODEL Energy 6X ARIA RO MODEL Plan Fractions Treated to Date 11 ARIA RO MODEL Plan Total Fractions Prescribed 35 ARIA RO MODEL Plan Prescribed Dose Per Fraction 2 Gy ARIA RO MODEL Plan Total Prescribed Dose 7,000 cGy ARIA RO MODEL Plan Primary Reference Point HN_PRP ARIA RO MODEL 06/01/2023 1:21 PM CDT us Unknown Provider RADIATION ONCOLOGY ORDERABLES F inal Result Performing Organization Address City/State/[facility] Co de Phone Number ARIA RO MODEL [address] [place] [address] documented in this encounter Visit Diagnoses Not on filedocumented in this encounter Care Teams Carbide Powder Processor Relationship Specialty Start Date End Date Jorge Espinosa PA [address] [place] [address] PCP - General Physician Melt Supervisor 04/11/23 Antwon Mirza MD [address] [place] [address] Consulting Physician Medical Oncology 05/04/23 Roland Patel MD [address] [place] [address] Consulting Physician Radiation Oncology 05/04/23 documented as of this encounter
--- OUTSIDE RECORDS SUMMARY | 2024-02-15 11:31 | XMS_ITS | Encounter Summary ---
Author Organization [facility] Care Team Providers Care Real Estate Economist Name Role Phone Jorge Espinosa Primary Care Provider [phone] Antwon Mirza MD Unavailable [phone] Roland Patel MD Unavailable [phone] Encounter Details Date Type Department Care Team (Latest Contact Info) Description 05/27/2023 Travel Social History Tobacco Use Types Packs/Day Years Used Date Smoking Tobacco: Every Day Cigarettes 0.5 50.9 Started: 1974 Smokeless Tobacco: Never Alcohol Use Standard Drinks/Week Comments Yes 0 (1 standard drink = 0.6 oz pure alcohol) Occasionally, never a regular drinker Sex and Gender Information Value Date Recorded Sex Assigned at Not on file 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
--- OUTSIDE RECORDS SUMMARY | 2024-02-15 11:31 | XMS_ITS | Encounter Summary ---
Author Organization [facility] Care Team Providers Care Heel Slicker Name Role Phone Jorge Espinosa Primary Care Provider [phone] Antwon Mirza MD Unavailable [phone] Roland Patel MD Unavailable [phone] Encounter Details Date Type Department Care Team (Latest Contact Info) Description 05/25/2023 Travel Social History Tobacco Use Types Packs/Day Years Used Date Smoking Tobacco: Every Day Cigarettes 0.5 50.9 Started: 1974 Smokeless Tobacco: Never Alcohol Use Standard Drinks/Week Comments Yes 0 (1 standard drink = 0.6 oz pure alcohol) Occasionally, never a regular drinker Sex and Gender Information Value Date Recorded Sex Assigned at Not on file 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
--- OUTSIDE RECORDS SUMMARY | 2024-02-15 11:31 | XMS_ITS | Encounter Summary ---
Author Organization [facility] Address [address] [facility] [place] [address] Phone Care Team Providers Care Senior Credit Analyst Name Role Phone Jorge Espinosa Primary Care Provider [phone] Antwon Mirza MD Unavailable Roland Patel MD Unavailable [phone] Reason for Visit * Reason Comments Cancer Encounter Details Date Type Department Care Team (Latest Contact Info) Description 05/16/2023 2:00 PM CDT [facility] [address] [place] [address] Roland Patel MD [address] [place], [place] [id number] Hiren Lester MD [address] [place] [address] Oropharyngeal cancer (HCC) (Primary Dx); Head and neck cancer (HCC); Status post insertion of percutaneous endoscopic gastrostomy (PEG) tube (HCC) Discharge Disposition: Discharged to home or [...] on file 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 Gender Identity Not on file Sexual Orientation Not on file documented as of this encounter Last Filed Vital Signs Vital Sign Reading Time Taken Comments Blood Pressure 165/81 05/16/2023 1:35 PM CDT Pulse 98 05/16/2023 1:35 PM CDT Temperature 36.1 ??C (97 ??F) 05/16/2023 1:35 PM CDT Respiratory Rate 16 05/16/2023 1:35 PM CDT Oxygen Saturation 98% 05/16/2023 1:35 PM CDT Inhaled Oxygen Concentration - - Weight 44.7 kg (98 lb 9.6 oz) 05/16/2023 1:35 PM CDT Height 166.4 cm (5' 5.5 ) 05/16/2023 1:35 PM CDT Body Mass Index 16.16 05/16/2023 1:35 PM CDT documented in this encounter Progress Notes * Lisa Burden RN - 05/16/2023 2:00 PM CDT Patient here today for Radiation Treatment and visit with Dr. Lester. No concerns or questions voiced. He will also see Dr. Mirza, medical oncology today * Hiren Lester MD - 05/16/2023 1:45 PM CDT [facility] RADIATION ONCOLOGY ON TREATMENT VISIT Patient Name: Aleksey Godfrey Encounter Date: 05/16/2023 Diagnosis: 1. Oropharyngeal cancer (HCC) 2. Head and neck cancer (HCC) 3. Status post insertion of percutaneous endoscopic gastrostomy (PEG) tube (HCC) Total Dose to Date: 600 cGy of 7000 cGy Detailed Radiation Delivery (All): Radiation Treatments Active Plans Oropharynx & Nodes_70Gy [[id number]] Most recent treatment: Dose planned: 200 cGy (fraction 3 on 05/16/2023) Total: Dose planned: 7,000 cGy (35 fractions) Elapsed Days: 4 Reference Points HN_PRP Most recent treatment: Dose given: 200 cGy (on 05/16/2023) Total: Dose given: 600 cGy Elapsed Days: 4 Historical No historical radiation treatments to show. Medications: Current Outpatient Medications: doxycycline hyclate (VIBRAMYCIN) 100 MG Capsule, Take 1 Capsule by mouth 2 times daily for 42 days., Disp: 84 Capsule, Rfl: 0 Ferrous Sulfate (IRON PO), 15 mL by Enteral route., Disp: , Rfl: lidocaine (LIDODERM) 5 % Patch, 1 Patch by Transdermal route every 12 hours., Disp: , Rfl: lisinopril (PRINIVIL, ZESTRIL) 10 MG Tablet, 10 mg by Enteral route daily., Disp: , Rfl: nortriptyline (PAMELOR) 10 MG Capsule, nightly., Disp: , Rfl: ondansetron (Zofran) 8 MG Tablet, Take 1 Tablet by mouth every 8 hours as needed for Nausea - 1st line., Disp: 20 Tablet, Rfl: 2 ondansetron (ZOFRAN-ODT) 4 MG TABLET DISPERSIBLE, Take 4 mg by mouth every 8 hours as needed., Disp: , Rfl: oxyCODONE (ROXICODONE) 5 MG/5ML Solution, 5 mg by Enteral route as needed., Disp: , Rfl: prochlorperazine (COMPAZINE) 10 MG Tablet, Take 1 Tablet by mouth every 6 hours as needed for Nausea - 2nd line., Disp: 40 Tablet, Rfl: 2 No current facility-administered medications for this visit. Facility-Administered Medications Ordered in Other Visits: DIPHENHYDRAMINE HCL 50 MG/ML IJ SOLN, , , , FAMOTIDINE (PF) 20 MG/2ML IV SOLN, , , , METHYLPREDNISOLONE NA SUC (PF) 125 MG IJ SOLR, , , , Patient Concerns/Complaints: The patient was seen today in checkup while undergoing radiation therapy to the head and neck region. The patient has received 3 treatments thus far. He has no complaints related to radiation. He continues to use the PEG tube for nutritional sustenance. Patient Weight: Reviewed. Wt Readings from Last 3 Encounters: 05/16/23 (!) 98 lb 9.6 oz (44.7 kg) 05/12/23 102 lb 9.6 oz (46.5 kg) 05/04/23 100 lb 8 oz (45.6 kg) Vitals: 05/16/23 1335 BP: 165/81 BP Location: Left Arm BP Position: Sitting BP Cuff Size: Regular Pulse: 98 Resp: 16 Temp: 97 ??F (36.1 ??C) TempSrc: Temporal SpO2: 98% Weight: (!) 98 lb 9.6 oz (44.7 kg) Height: 5' 5.5 (1.664 m) Physical Examination: KPS 60. On physical examination, the patient is unaccompanied. He is alert and oriented. Breathing is non-labored. There are no skin changes within the radiation portals. The patient's PEG tube is in place, appears to be functioning. Imaging Studies: Reviewed. Impression: Tolerating radiation therapy well. No acute side effects. Plan: Continue with nutritional support via PEG tube. Continue with cetuximab under the direction of Dr. Mirza. The patient's portal images and set-up were reviewed. Dosimetry was evaluated and approved. Continue RT as planned. All questions answered. By: Hiren Lester MD, FACR, FACRO 05/16/2023, 1:53 PM CDT Patient Care Team: Jorge Espinosa PA as PCP - General (Physician Ship Captain) Antwon Mirza MD as Consulting Physician (Medical Oncology) Roland Patel MD as Consulting Physician (Radiation Oncology) documented in this encounter Plan of Treatment Not on file documented as of this encounter Visit Diagnoses Diagnosis Oropharyngeal cancer (HCC)- Primary Malignant neoplasm of oropharynx, unspecified vp site and neck cancer (HCC) Malignant neoplasm of head, face, and neck Status post insertion of percutaneous endoscopic gastrostomy (PEG) tube (HCC) documented in this encounter Care Teams Senior Credit Analyst Relationship Specialty Start Date End Date Jorge Espinosa PA [address] [place] [address] PCP - General Physician Ship Captain 04/11/23 Antwon Mirza MD [address] [place] [address] Consulting Physician Medical Oncology 05/04/23 Roland Patel MD [address] [place] [address] Consulting Physician Radiation Oncology 05/04/23 documented as of this encounter
--- OUTSIDE RECORDS SUMMARY | 2024-02-15 11:31 | XMS_ITS | Encounter Summary ---
Author Organization [facility] Address [address] [place] [address] Phone Care Team Providers Care [facility] Insurance Clerk Name Role Phone Jorge Espinosa Primary Care Provider [phone] Antwon Mirza MD Unavailable [phone] Roland Patel MD Unavailable [phone] Reason for Referral * Radiology Services (Routine) - Closed Specialty Diagnoses / Procedures Referred By Contac t Referred To Contact Radiology Diagnoses Oropharyngeal cancer (HCC) Procedures RADIATION THERAPY PLANNING W/O CONTRAST BODY Roland Patel MD [address] [place] [address] Phone: tel: fax: Referral ID Status Reason Start Date Expiration Date Visits Re quested Visits Authorized [id number] Closed 04/19/2023 1 1 * Treatment (Routine) - Closed Specialty Diagnoses / Procedures Referred By Contac t Referred To Contact Oncology Diagnoses Oropharyngeal cancer (HCC) Procedures RAD ONC INTENT TO TREAT Roland Patel MD [address] [place] [address] Phone: tel: fax: Referral ID Status Reason Start Date Expiration Date Visits Re quested Visits Authorized [id number] Closed 04/19/2023 1 1 Reason for Visit * Medical Care (Routine) - Closed Specialty Diagnoses / Procedures Referred By Contac t Referred To Contact Oncology Diagnoses Oropharyngeal cancer (HCC) Procedures OFFICE/OP NEW LVL 3 LOW MDM/30-44 MIN OFFICE/OP EST LVL 3 LOW MDM/20-29 MIN Antwon Mirza MD [address] [place] [address] Phone: tel: fax: [facility] [address] [place] [phone] Phone: tel: fax: Referral ID Status Reason Start Date Expiration Date Visits Re quested Visits Authorized [id number] Closed 04/12/2023 1 11 Encounter Details Date Type Department Care Team (Latest Contact Info) Description 04/19/2023 1:30 PM CDT Initial Consult [facility] [address] [place] [phone] [place] [address] [place] [phone] Oropharyngeal cancer (HCC) (Primary Dx); Oropharyngeal dysphagia; Status post insertion of percutaneous endoscopic gastrostomy (PEG) tube (HCC); Unintentional weight loss of more than 10% body weight within 6 months; Current smoker Discharge Disposition: Discharged to home or Selfcare Social History Tobacco Use Types Packs/Day Years Used Date Smoking Tobacco: Every Day Cigarettes 0.5 50.9 Started: 1974 Smokeless Tobacco: Never Tobacco Cessation:Ready to Q uit: Yes; Counseling Given: Yes Alcohol Use Standard Drinks/Week Comments Yes 0 (1 standard drink = 0.6 oz pure alcohol) Occasionally, never a regular drinker Sex and Gender Information Value Date Recorded Sex Assigned at Not on file Legal Sex Male 3:34 PM DIRECTOR OF 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 Gender Identity Not on file Sexual Orientation Not on file documented as of this encounter Last Filed Vital Signs Vital Sign Reading Time Taken Comments Blood Pressure 130/52 04/19/2023 1:43 PM CDT Pulse 67 04/19/2023 1:43 PM CDT Temperature 36.6 ??C (97.9 ??F) 04/19/2023 1:43 PM CD T Respiratory Rate 16 04/19/2023 1:43 PM CDT Oxygen Saturation 100% 04/19/2023 1:43 PM CDT Inhaled Oxygen Concentration - - Weight 47.3 kg (104 lb 4.8 oz) 04/19/2023 1:43 P M CDT Height 165.1 cm (5' 5 ) 04/19/2023 1:43 PM CDT Body Mass Index 17.36 04/19/2023 1:43 PM CDT documented in this encounter H&P Notes * Roland Patel MD - 04/19/2023 1:30 PM CDT [facility] RADIATION ONCOLOGY CONSULTATION ENCOUNTER DATE: 04/19/2023 Patient Care Team: Jorge Espinosa PA as PCP - General (Physician [employer]) Antwon Mirza MD as Consulting Physician (Medical Oncology) Roland Patel MD as Consulting Physician (Radiation Oncology) REQUESTING PHYSICIAN: Antwon Mirza, * 1. Oropharyngeal cancer (HCC) RADIATION ONCOLOGY REFERRAL RAD ONC INTENT TO TREAT RADIATION THERAPY PLANNING W/O CONTRAST BODY 2. Oropharyngeal dysphagia 3. Status post insertion of percutaneous endoscopic gastrostomy (PEG) tube (HCC) 4. Unintentional weight loss of more than 10% body weight within 6 months 40 lb weight loss over the past year. 5. Current smoker IDENTIFYING DATA: Mr. Aleksey Godfrey is a very pleasant 63 y.o. male I had the pleasure of seeing for a new patient consultation on 04/19/2023 in the radiation oncology department at [facility]. 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 He was seen today by himself. HISTORY OF PRESENT ILLNESS: The following was obtained from review of the available medical recordswhich were adequate for purposes of today's consultation, from a discussion with his medical oncologist Dr. Mirza that was most helpful, and from the patient who was felt to be a reasonable historian. Over the past year he has had progressive weight loss of over 50 lb associated with progressive dysphagia, solids more than liquids, and more recently before presenting for evaluation had intermittent hemoptysis. The symptoms led him to present to [facility] ED 03/21/2023 for evaluation at which time a large left oropharyngeal mass was noted on CT of the neck. That report and images were not available at the time of today's consultation. He was discharged from the ED with plans to follow-up with [facility] as an outpatient but had an episode of hemoptysis at home which he estimated as a 1point blood loss so he presented back to [facility] ED and was subsequently transferred by ambulance to [facility] where he was admitted 03/23/2023 thru 03/31/2023 and underwent testing and procedures leading to a diagnosis of clinical stage III (cT4, cN2, cM0, p16+) left oropharyngeal squamous cell carcinoma. He was subsequently referred to the [facility] for treatment as he was out of network for insurance purposes within the [facility] system, i.e. [facility]. He was seen in Medical Oncologyconsultation by Dr. Mirza 04/11/2023 and was felt to be a candidate for concurrent cisplatin. He was seen today in Radiation Oncology consultation with his permission and at the request of Dr. Mirza to discuss radiotherapy treatment options and recommendations in the management of his very locally advanced p16+ left oropharyngeal squamous cell carcinoma. Review of systems was remarkable as above. At the time of presentation he was malnourished as evidenced by well over a 50 lb weight loss over the preceding year and protein 6.3 and albumin 3.1 on 03/27/2023, both slightly below the normal range. He gave his ???fighting weight?? 2 years ago as 170-175 lb and his weight today was 104 lb. With regards to swallow and he had speech language pathologyevaluation at [facility] and prior to placement of his PEG tube was advised for a liquid only diet withoutpuree. He can drink liquids including Boost and Ensue without difficulty and does not cough or choke and said he was not instructed in any special ???maneuvers?? when swallowing liquids. He was putti ng 4 cartons of nutritional supplements in his PEG tube daily. He will be [facility] by [facility] and this likely will need to be increased. He denied any pain or discomfort with swallowing liquids and only had pain or discomfort when swallowing meat. No otalgia. With regards to his swallowing during the year he was losing weight and having increasing difficulty swallowing with coughing and choking he denied food ever coming back up. There were no musculoskeletal or neurological symptoms worrisome for metastatic involvement of either organ system. Gastrointestinal genitourinary review of systems were unremarkable and he denied any recent changes or complaints with either. No history of heart attack or stroke and he denied recent change in his exercise tolerance or breathing. He did have a ???walk test while an inpatient at [facility] and his SpO2 dropped to hypoxemic levels with exertion so he was sent home with supplemental oxygen to use when exerting himself but was not recommended to use at rest or when sleeping. REVIEW OF SYSTEMS: Pertinent items are noted in history of present illness. Allergies Allergen Reactions Bee Venom Unknown PAST MEDICAL HISTORY: He has a past medical history of Edentulous (2021) and Hypertension. He has no past medical history of Diabetes mellitus (HCC), Myocardial infarction (HCC), or Stroke ([facility]). CURRENT MEDICATIONS: He has a current medication list which includes the following prescription(s):escitalopram, ferrous sulfate, lidocaine, lisinopril, nortriptyline, ondansetron, and oxycodone. Past Surgical History: Procedure Laterality Date APPENDECTOMY 2019 Appendix did not rupture. Surgery was while he was living in [place]. GASTROSTOMY TUBE PLACEMENT N/A 03/28/2023 Initial placement of percutaneous balloon assisted gastrostomy catheter with procedure at [facility]. GASTROSTOMY TUBE PLACEMENT N/A 03/29/2023 Percutaneous fluoroscopic pull type gastrostomy catheter placement after gastrostomy tube placed 03/28/2023 fell out overnight. Procedure at [facility]. LARYNGOSCOPY,DIRCT,OP,BIOPSY N/A 03/25/2023 Direct laryngoscopy and biopsy 03/25/2023 in the OR at [facility] confirming p16+ squamous cell carcinoma of the left oropharynx. Addendum to medical and surgical history: Prior to his recent presentation it was only diagnosed medical comorbidity was hypertension requiring medical management for the past 5 years but it does notappear that he sought routine medical care. While he has a significant pack-year smoking history he does not carry a formal diagnosis of COPD and has never been hospitalized for breathing difficulties. He did have a pulmonary stress test simple/oxygen assessment 03/30/2023 at [facility] and breathing room air his SpO2 was adequate at rest but during exercise sufficient to increase pulse from 80-98 bpm his SpO2 fell to hypoxemic levels so he was se nt home with supplemental oxygen which he does not tend to use. PERSONAL PAST CANCER HISTORY: He denied prior history of carcinoma, chemotherapy or radiotherapy. FAMILY HISTORY: His pertinent family history includes Cancer (age of onset: 55) in his mother and sister. Genetics Risk Assessment Discussed/N/A SOCIAL HISTORY: He was legally and lives in a private residence in [place], [place] with his daughter and 6-year-old granddaughter. Up until a few years ago he lived in [place] before moving to the area and moving in with his daughter. He ???can drive but does not and likely will need help with daily transportation. He reports that he has been smoking cigarettes. He started smoking about 50 years ago. He has a 25.00 pack-year smoking history. He has never used smokeless tobacco. He reports current alcohol use. He reports that he does not use drugs. 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 PHYSICAL EXAM: BP 130/52 (BP Location: Left Arm, BP Position: Sitting, BP Cuff Size: Regular) Pulse 67 Temp 97.9 ??F (36.6 ??C) Resp 16 Ht 5' 5 (1.651 m) Wt 104 lb 4.8 oz (47.3 kg) SpO2 100% BMI 17.36 kg/m?? ECOG PS of 1, albeit somewhat marginal. General appearance: cachectic white male, alert, appears stated age, cooperative, and no distress. Speech, gait and affect were within normal limits. Head: Normocephalic, without obvious abnormality, atraumatic Eyes: negative, prescription glasses, near vision grossly intact with the prescription glasses Ears: external ears and hearing grossly normal Nose: Nares normal. Septum midline. Mucosa normal. No drainage. Air flow normal and symmetrical through both nostrils. Throat: edentulous state, 3 finger breadth trismus, oral tongue mobile but when trying to extend straight out it deviated to the left, visual inspection of the oral cavity of somewhat limited by the trismus. There was clear induration of the left base of tongue extending to the proximal oral tongueon the left. Mass was palpable at the left posterolateral floor of mouth, glossotonsillar sulcus and left tonsillar fossa. No ulceration or active areas of bleeding or pooling of secretions. Neck: supple, symmetrical, trachea midline and thyroid not enlarged, symmetric, no tenderness/mass/nodules Back: symmetric, no curvature. ROM normal. No CVA tenderness. Lungs: clear to auscultation and percussion with symmetrically decreased breath sounds bilaterally consistent with some underlying COPD, no focal lung findings Chest wall: no tenderness Heart: grossly regular rate and rhythm, no palpable thrills Abdomen: scaphoid, soft, non-tender; bowel sounds normal; no masses, no organomegaly. A percutaneous gastrostomy feeding tube was noted on the anterior abdominal wall with a clean entrance site with no sign of infection Extremities: extremities normal, atraumatic, no cyanosis or edema. Clubbing of the fingernails bedsbilaterally. Skin: Skin color, texture, turgor normal. No rashes or suspicious lesions Lymph nodes: no palpable cervical supraclavicular lymphadenopathy bilaterally Neurologic: No gross motor or sensory deficits. Alert and oriented X 3, normal strength and tone. Normal coordination and gait. Fund of knowledge was good/normal. IMAGING STUDIES: 1.) PET/CT study 03/30/2023 at [facility] History: 63-year-old male with new left oropharyngeal mass, biopsy-proven squamous cell carcinoma on 03/25/2023. The studies requested for initial staging. Comparison: CTA head and neck 03/23/2023 Pertinent Findings: There is a hypermetabolic, ulcerative, infiltrative neck mass centered in the left oropharynx with extension superiorly into the left nasopharynx, into the left hereditary cancer program coordinator, submandibular, and sublingual spaces, left tonsillar fossa, and involvement of the left aspect of the tongue and left aspect of the soft palate. Measurements are difficult given lack of intravenous contrast. Maximum SUV of the mass is 6.3. There is osseous erosion of the left mandible. Probable enlarged left level 2A lymph node with maximum SUV 6.1 (image 63/[id number]) suspicious for metastasis. There is a right supraclavicular lymph node measuring 8 mm in short axis with maximum SUV 2.7 (image 95/326). Impression: 1. Large, hypermetabolic, ulcerative and infiltrative mass centered in the left oropharynx with involvement of the left nasopharynx, left hereditary cancer program coordinator, submandibular, and sublingual spaces, left tonsillar fossa, left aspect of the tongue and left soft palate consistent with biopsy-proven squamous cell carcinoma. 2. Probable metastatic left level IIa lymph node and mildly hypermetabolic right supraclavicular lymph node suspicious for anum metastasis. 3. Aspiration pneumonia in the bilateral lung bases with likely reactive mediastinal and hilar lymph nodes. 2.) Modified barium swallow video 03/24/2023 at [facility] was abnormal with recommendation for full liquid diet without pyuria ease, liquid/crust meds. Ultimately PEG was placed and remained at the time oftoday's consultation. 3.) CTA head and neck with and without contrast 03/23/2023 at [facility] History: Bleeding left oropharyngeal neck mass. Comparison: None available. Impression: Large ulcerative left oropharyngeal neck mass highly suspicious for malignancy such as squamous cell carcinoma involving the left parapharyngeal, hereditary cancer program coordinator, submandibular, and sublingualspaces with osseous involvement of the left mandible. Multiple branches of the left external carotid artery including the ascending pharyngeal and lingual branches course throughthis mass without evidence of active arterial extravasation. PROCEDURES & PATHOLOGY: Direct laryngoscopy and biopsy 03/25/2023 at [facility] Indications: Patient is a 63 y/o male with several-month history of significant weight loss, trismus, dysphagia, and odynophagia. In recent weeks he has also developed intermittent hemoptysis prompting ED presentation and evaluation at which time CT imaging of the neck demonstrated a large left oropharyngeal mass. He is now transferred to [facility] and the otolaryngology service was consulted for consideration of surgical biopsy. After thorough discussion of the risks and benefits of direct laryngoscopy as well as alternative management options, patient elected to move forward with surgical management. Findings: 1. Evaluation on palpation of the oral cavity and oropharynx revealed a very firm ulcerative lesionalong the left oropharynx 2. Direct laryngoscopy was used to inspect the oral cavity. There was no evidence of abnormality 3. Direct laryngoscopy was used to inspect the oropharynx. There was a large ulcerative lesion involving the left oropharynx involving a small amount of soft palate, tonsillar pillar, and extending down to involve the ipsilateral vallecula. Laryngeal aspect of epiglottis appeared without disease 4. Direct laryngoscopy was used to inspect the hypopharynx. There was no evidence of abnormality. 5. Direct laryngoscopy was used to inspect the larynx. There was no evidence of abnormality. 6. Two biopsies were taken from left oropharynx and sent for both frozen section as well as [place] permanent pathology. Results from frozen pathologic evaluation demonstrated carcinoma Final Diagnosis: A. Oropharynx, left, biopsy (AFR1): [id number] squamous cell carcinoma with nonkeratinizing and basaloid features B. Oropharynx, left #2, biopsy: Squamous cell carcinoma with nonkeratinizing and basaloid features IMPRESSION AND PLAN: Mr. Aleksey Godfrey is a very pleasant 63 y.o. male with a recent diagnosis of alfonso locally advanced p16+ left oropharyngeal squamous cell carcinoma, clinical stage III (cT4, cN2, cM0, p16+) seen today to discuss radiotherapy treatment options and recommendations. He has already been seen in Medical Oncology consultation. With regards to his oropharyngeal dysphagia a PEG tubehas already been placed. It was also noted that he was edentulous. The appropriate NCCN guidelines were reviewed in detail with him and used as the basis for today's discussion, counseling, and treatment recommendations. The reasons cancers were staged was explainedand discussed with him illustrating that staging was used to guide therapy and reflected expected prognosis. It was also reviewed that prior to the 8th edition of the AJCC staging system there was noseparation between p16 positive and negative oropharyngeal cancers but that beginning with the 8th edition, i.e. the current edition, p16 positive and negative oropharyngeal squamous cell carcinomas were staged separately because of the distinct difference in prognosis between the two. The T, N, and M components of staging were reviewed and explained in lay terms. It was then discussed that on the basis of an individual's T, N, and M status cancers were grouped into stages 0 thru IV. The difference in staging between p16 positive and negative oropharyngeal cancers was reviewed. As he has p16 positive squamous cell carcinoma of the oropharynx it was illustrated that for staging purposes he was assigned a cT4, cN2, cM0 status on the basis of physical exam, CTA of the head and neck 03/23/2023, and PET/CT study 03/30/2023. It was then explained that for p16 positive squamous cell carcinomas of the oropharynx cT4, cN2, cM0 equated to stage III cancer. It was then explained that if his cancer was p16 negative he would have cT4a, cN2c, cM0 status and his stage would be MARIAA. It was explained that p16 positive oropharyngeal squamous cell carcinomas did much better than p16 negative squamous cell carcinomas hence the reason for staging separately. It was then discussed that as p16 positive oropharyngeal squamous cell carcinomas did so well with the current standard treatment that efforts were underway to try and deintensify treatment to lessen both acute and chronic morbidity while still maintaining the current ???cure?? rates. It was explained also that the current standard of care off protocol for p16 positive oropharyngealsquamous cell carcinoma as per NCCN guidelines was the same as for p16 negative oropharyngeal squamous cell carcinomas. It was also discussed that I was not aware of any current deintensification protocols here in the area that he would be eligible for but [facility], which he said he was not. And also given the very locally advanced nature ofhis p16+ oropharyngeal squamous cell carcinoma I would not recommend any deintensification efforts. After the discussion my recommendation was for oropharyngeal and regional anum radiotherapy with concurrent systemic therapy. I explained that the standard/usual systemic therapy for oropharyngeal squamous cell carcinoma was cisplatin. He was seen in Medical Oncology consultation by Dr. Mirza 04/11/2023 and was felt to be a candidate for cisplatin. I explained that the recommended radiotherapy for his clinical stage III left oropharyngeal p16+ squamous cell carcinoma would consist of 35 daily radiation treatments given Tuesday thru Tuesday for 7 weeks. These daily treatments take roughly 30-40 minutes door to door. While on treatment I would bemonitoring him at minimum on a weekly basis. Some of the side effects of radiotherapy for his disease include but are not limited to fatigue related to the daily nature of the treatment, a brisk sunburn like reaction of the treated neck, loss of hair within the treatment area which likely will be permanent, alteration in his normal taste which often is temporary but in some cases permanent for select ???tastes , and radiation irritation of the lining of the pharynx and proximal esophagus causing increased pain and discomfort when swallowing. It was explained that the pharynx and proximal esophageal mucosal irritation from radiation causing discomfort and difficulty with swallowing usually takes a few weeks to develop and typically resolved within several weeks to a few months after completion of radiotherapy. The likelihood of requiring or being recommended to receive outpatient IV fluids during treatment was also discussed and explained. The likelihood of at least some increased dryness of his mouth and throat during radiotherapy and some degree of a permanent dry mouth and throat were also discussed/reviewed and explained. The possibility of disruption of the normal lymphatic flow in his neck from the radiation causing permanent submental edema, i.e. a waddle or anterior neck fullness, was also discussed. The potential of decreased thyroid function developing months to yearsafter completion of radiotherapy requiring lifelong thyroid hormone replacement therapy was also explained. It was also explained that following completion of radiotherapy there was the potential fordeveloping persistent, i.e. permanent, edema/swelling of the irradiated region with associated painand discomfort with swallowing or also developing permanent dysfunction of the pharyngeal constricto rs with either potentially resulting in permanent swallowing dysfunction and a lifelong need for a G-tube for nutrition and hydration purposes. It was noted that he already has a G-tube which he was using to supplement his oral liquid diet of Boost and Ensure. It was also noted that he was currently swallowing liquids without difficulty. Prior to treatment a planning CT scan would be performed here in the department and used to design the radiation treatments in conjunction with his diagnostic CTA neck & head and PET/CT studies. It was explained that a custom immobilization device, i.e. an Aquaplast mask, will be fabricated for immobilization purposes and used in obtaining the planning CT scan and for his daily treatments. Itwas also explained that arm stretchers would likely be used for both simulation and his daily treatments to lower his shoulders to allow better access to the treatment site for the delivery of radiotherapy. The usual and normal logistics along with the expected acute side effects and potential morbidity of concurrent systemic therapy was deferred to his medical oncologist Dr. Mirza other than to say that the concurrent use of chemotherapy with radiotherapy increases the potential of the above discussed radiotherapy morbidities. The systemic therapy to be used as per discussion with his medical oncologist Dr. Mirza was concurrent cisplatin. Mr. Aleksey Godfrey asked several excellent questions during the course of the consultation which I feel were answered to his satisfaction. Benefits, risks, and alternatives to the recommended 7 week course of definitive oropharyngeal and regional lymphatic radiotherapy with concurrent systemic therapy were discussed. The benefit of the recommended treatment was the potential for nonsurgical cure of his recently diagnosed cancer. The risks were as discussed above. An acceptable medical alternative was to seek out a clinical trial which likely would require him to relocate out of the area for the treatment. Radiotherapy or systemic therapy as monotherapy was not recommended. At this time he wished to proceed with the recommended treatment plan of a 7 week course of radiotherapy with concurrent cisplatin. Informed consent for radiotherapy was reviewed and when the questions the informed consent review generated were answered to his stated satisfaction, informed consent was signed. Informed consent for the concurrent systemic therapy was deferred to Medical Oncology and Dr. Mirza. He was scheduled to return here for treatment planning and simulation of this week, 04/21/2023 and the plan was to begin treatment 05/03/2023. The logistics of daily transportation over 7 weeks for his radiotherapy may be an issue as he does not drive. He took an Uber to today's appointment. He lives in [place], [place] 20+ miles away. [facility] social contact worker will be contacted to help facilitate. I appreciate Dr. Mirza giving me the opportunity to take part in the care of this patient. He remained under the primary care of SHAHID HATHAWAY. Total time spent on this encounter on this date of service, including pre-visit review of separately obtained history, [id number] interaction performing medically appropriate physical exam, patient counseling/education, interpretation of diagnostic results, care coordination and documentation was 60 minutes. Roland Patel MD 05/04/2023 documented in this encounter Miscellaneous Notes * Interdisciplinary - Ketty Dewitt MA - 04/19/2023 1:30 PM CDT New rad onc consult for oropharynx cancer. No pain, today. Meds reviewed with pt and are up to date--tjo documented in this encounter Plan of Treatment Scheduled Orders Name Type Priority Associated Diagnoses Orde r Schedule RAD ONC INTENT TO TREAT Radiation Oncology Routine Oropharyngeal cancer (HCC) Expected: 04/21/2023, Expires: 07/20/2023 RADIATION THERAPY PLANNING W/O CONTRAST BODY Imaging Routine Oropharyngeal cancer (HCC) Expected: 04/21/2023, Expires: 07/20/2023 documented as of this encounter Visit Diagnoses Diagnosis Oropharyngeal cancer (HCC)- Primary Malignant neoplasm of oropharynx, unspecified site Oropharyngeal dysphagia Dysphagia, oropharyngeal phase Status post insertion of percutaneous endoscopic gastrostomy (PEG) tube (HCC) Unintentional weight loss of more than 10% body weight within 6 months Current smoker Tobacco use disorder documented in this encounter Care Teams Hospital Insurance Clerk Relationship Specialty Start Date End Date Jorge Espinosa PA [address] [place] [address] PCP - General Physician Concrete Rod Buster 04/11/23 Antwon Mizra MD [address] [place] [address] Consulting Physician Medical Oncology 05/04/23 Roland Patel MD [address] [place] [address] Consulting Physician Radiation Oncology 05/04/23 documented as of this encounter
--- OUTSIDE RECORDS SUMMARY | 2024-02-15 11:31 | XMS_ITS | Encounter Summary ---
Author Organization [facility] Address [address] [facility] 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 Gender Identity Not on file Sexual Orientation Not on file documented as of this encounter Plan of Treatment Not on file documented as of this encounter Procedures Procedure Name Priority Date/Time Associated Diagnosis Comments RAD ONC ARIA SESSION SUMMARY Routine 05/13/2023 1:45 PM CDT documented in this encounter Results * RAD ONC ARIA SESSION SUMMARY (05/13/2023 1:45 PM CDT) Course ID C1 ARIA RO MODEL Course Intent Curative w/chemo ARIA RO MODEL Course Start Date 05/06/2023 11:27 AM ARIA RO MODEL Session Number 2 ARIA RO MODEL Course End Date 05/12/2023 9:16 AM ARIA RO MODEL Course Last Treatment Date 05/13/2023 1:47 PM ARIA RO MODEL Course Elapsed Days 1 ARIA RO MODEL Reference Point ID HN_PRP ARIA RO MODEL Reference Point Dosage Given to Date [id number] Gy ARIA RO MODEL Reference Point Session Dosage Given [id number] Gy ARIA RO MODEL Plan ID [id number] ARIA RO MODEL Plan Name Oropharynx & Nodes_70Gy ARIA RO MODEL Energy 6X ARIA RO MODEL Plan Fractions Treated to Date 2 ARIA RO MODEL Plan Total Fractions Prescribed 35 ARIA RO MODEL Plan Prescribed Dose Per Fraction 2 Gy ARIA RO MODEL Plan Total Prescribed Dose 7,000 cGy ARIA RO MODEL Plan Primary Reference Point HN_PRP ARIA RO MODEL 05/13/2023 1:45 PM CDT us Unknown Provider RADIATION ONCOLOGY ORDERABLES F inal Result Performing Organization Address City/State/[facility] Co de Phone Number ARIA RO MODEL [address] [place] [address] documented in this encounter Visit Diagnoses Not on filedocumented in this encounter Care Teams Laborer Tan House Relationship Specialty Start Date End Date Jorge Espinosa PA [address] [place] [address] PCP - General Physician Heat Set Operator 04/11/23 Antwon Mirza MD [address] [place] [address] Consulting Physician Medical Oncology 05/04/23 Roland Patel MD [address] [place] [address] Consulting Physician Radiation Oncology 05/04/23 documented as of this encounter
--- OUTSIDE RECORDS SUMMARY | 2024-02-15 11:31 | XMS_ITS | Encounter Summary ---
Author Organization [facility] Address [address] [facility] 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
--- OUTSIDE RECORDS SUMMARY | 2024-02-15 11:31 | XMS_ITS | Encounter Summary ---
Author Organization [facility] Address [address] [facility] [place] [address] Phone Care Team Providers Care Rubber Press Tender Name Role Phone Jorge Espinosa Primary Care Provider [phone] Antwon Mirza MD Unavailable [phone] Roland Patel MD Unavailable [phone] Encounter Details Date Type Department Care Team (Late st Contact Info) Description 05/11/2023 Telephone [facility] - Cancer Center Oncology Services [address] [place] [address] Lisa Burden, RN [place] Social History Tobacco Use Types Packs/Day Years Used Date Smoking Tobacco: Every Day Cigarettes 0.5 50.9 Started: 1974 Smokeless Tobacco: Never Alcohol Use Standard Drinks/Week Comments Yes 0 (1 standard drink = 0.6 oz pure alcohol) Occasionally, never a regular drinker Sex and Gender Information Value Date Recorded Sex Assigned at Not on file 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 Attempt was made to contact him at both the listed home and cell number with a message left on the cell[employer] for them to please contact our office documented in this encounter Plan of Treatment Not on file documented as of this encounter Visit Diagnoses Not on filedocumented in this encounter Care Teams Rubber Press Tender Relationship Specialty Start Date End Date Jorge Espinosa PA [address] [place] [address] PCP - General Physician Nephrology Social Worker 04/11/23 Antwon Mirza MD [address] [place] [address] Consulting Physician Medical Oncology 05/04/23 Roland Patel MD [address] [place] [address] Consulting Physician Radiation Oncology 05/04/23 documented as of this encounter
--- OUTSIDE RECORDS SUMMARY | 2024-02-15 11:31 | XMS_ITS | Encounter Summary ---
Author Organization [facility] Address [address] [facility] 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 Gender Identity Not on file Sexual Orientation Not on file documented as of this encounter Plan of Treatment Not on file documented as of this encounter Procedures Procedure Name Priority Date/Time Associated Diagnosis Comments RAD ONC ARIA SESSION SUMMARY Routine 05/17/2023 1:38 PM CDT documented in this encounter Results * RAD ONC ARIA SESSION SUMMARY (05/17/2023 1:38 PM CDT) Course ID C1 ARIA RO MODEL Course Intent Curative w/chemo ARIA RO MODEL Course Start Date 05/06/2023 11:27 AM ARIA RO MODEL Session Number 4 ARIA RO MODEL Course End Date 05/12/2023 9:16 AM ARIA RO MODEL Course Last Treatment Date 05/17/2023 1:39 PM ARIA RO MODEL Course Elapsed Days 5 ARIA RO MODEL Reference Point ID HN_PRP ARIA RO MODEL Reference Point Dosage Given to Date [id number] Gy ARIA RO MODEL Reference Point Session Dosage Given 1.77417511 Gy ARIA RO MODEL Plan ID [id number] ARIA RO MODEL Plan Name Oropharynx & Nodes_70Gy ARIA RO MODEL Energy 6X ARIA RO MODEL Plan Fractions Treated to Date 4 ARIA RO MODEL Plan Total Fractions Prescribed 35 ARIA RO MODEL Plan Prescribed Dose Per Fraction 2 Gy ARIA RO MODEL Plan Total Prescribed Dose 7,000 cGy ARIA RO MODEL Plan Primary Reference Point HN_PRP ARIA RO MODEL 05/17/2023 1:38 PM CDT us Unknown Provider RADIATION ONCOLOGY ORDERABLES F inal Result Performing Organization Address City/State/[facility] Co de Phone Number ARIA RO MODEL [address] [place] [address] documented in this encounter Visit Diagnoses Not on filedocumented in this encounter Care Teams Puppy Sitter Relationship Specialty Start Date End Date Jorge Espinosa PA [address] [place] [address] PCP - General Physician Residential Case Manager 04/11/23 Antwon Mirza MD [address] [place] [address] Consulting Physician Medical Oncology 05/04/23 Roland Patel MD [address] [place] [address] Consulting Physician Radiation Oncology 05/04/23 documented as of this encounter
--- OUTSIDE RECORDS SUMMARY | 2024-02-15 11:31 | XMS_ITS | Encounter Summary ---
Author Organization [facility] Address [address] [facility] [place] [address] Phone Care Team Providers Care Diagnostic Medical Sonographer Name Role Phone Jorge Espinosa Primary Care Provider [phone] Antwon Mirza MD Unavailable Roland Patel MD Unavailable [phone] Reason for Visit * Reason Comments Cancer Encounter Details Date Type Department Care Team (Late st Contact Info) Description 05/12/2023 8:45 AM CDT [facility] [address] [place] [address] Roland Patel MD [address] [place], [place] [address] Hiren Lester MD [address] [place] [id number] Head and neck cancer (HCC) (Primary Dx) Discharge Disposition: Discharged [...] on file 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 The radiation liu were generated and based upon parameters developed from the CT treatment plan. The patient was placed in a supine position, utilizing the same immobilization devices as those used in the initial simulation. All isocenters and shifts were finalized based upon the dosimetry plan. Images were taken to verifycustom MLC patterns. These images were evaluated and approved by me at the treatment console prior to the delivery of the first radiation treatment utilizing these particular treatment portals. Hiren Lester MD, FACRO, FACR Radiation Oncology documented in this encounter Plan of Treatment Not on file documented as of this encounter Visit Diagnoses Diagnosis Head and neck cancer (HCC)- Primary Malignant neoplasm of head, face, and neck documented in this encounter Administered Medications Active Administered Medications - up to 3 most recent administrations Medication Order MAR Action Action Date Dose Rate Site DIPHENHYDRAMINE HCL 50 MG/ML IJ SOLN 1 dose, Starting on Tabitha 05/12/23 at 1056, Created by cabinet override FAMOTIDINE (PF) 20 MG/2ML IV SOLN 1 dose, Starting on Tabitha 05/12/23 at 1056, Created by cabinet override METHYLPREDNISOLONE NA SUC (PF) 125 MG IJ SOLR 1 dose, Starting on Tabitha 05/12/23 at 1056, Created by cabinet override documented in this encounter Care Teams Diagnostic Medical Sonographer Relationship Specialty Start Date End Date Jorge Espinosa PA [address] [place] [address] PCP - General Physician Obstetric Assistant 04/11/23 Antwon Mirza MD [address] [place] [address] Consulting Physician Medical Oncology 05/04/23 Roland Patel MD [address] [place] [address] Consulting Physician Radiation Oncology 05/04/23 documented as of this encounter
--- OUTSIDE RECORDS SUMMARY | 2024-02-15 11:31 | XMS_ITS | Encounter Summary ---
Author Organization [employer] Care Team Providers Care Wash Test Checker Name Role Phone Jorge Espinosa Primary Care Provider [phone] Antwon Mirza MD Unavailable [phone] Roland Patel MD Unavailable [phone] Encounter Details Date Type Department Care Team (Latest Contact Info) Description 05/17/2023 Travel Social History Tobacco Use Types Packs/Day Years Used Date Smoking Tobacco: Every Day Cigarettes 0.5 50.9 Started: 1974 Smokeless Tobacco: Never Alcohol Use Standard Drinks/Week Comments Yes 0 (1 standard drink = 0.6 oz pure alcohol) Occasionally, never a regular drinker Sex and Gender Information Value Date Recorded Sex Assigned at Not on file 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
--- OUTSIDE RECORDS SUMMARY | 2024-02-15 11:31 | XMS_ITS | Encounter Summary ---
Author Organization [facility] Address [address] [place] [address] Phone Care Team Providers Care Toolmaker Grade Three Name Role Phone Jorge Espinosa Primary Care Provider [phone] Antwon Mirza MD Unavailable [phone] Roland Patel MD Unavailable [phone] Reason for Visit * Episode Based Medications (Routine) - Authorized Specialty Diagnoses / Procedures Referred By Contac t Referred To Contact Diagnoses Oropharyngeal cancer (HCC) Antwon Mirza MD [address] [place] [address] Phone: tel: fax: [facility] [address] [place] [address] Phone: tel: fax: Referral ID Status Reason Start Date Expiration Date V isits Requested Visits Authorized [id number] Authorized 05/09/2023 1 24 Encounter Details Date Type Department Care Team (Latest Contact Info) Description 05/19/2023 1:30 PM CDT Clinical Support [facility] [address] [place] [address] Antwon Mirza MD [address] [place] [address] Oropharyngeal cancer (HCC) (Primary Dx) [...] file 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 Gender Identity Not on file Sexual Orientation Not on file documented as of this encounter Last Filed Vital Signs Vital Sign Reading Time Taken Comments Blood Pressure 160/70 05/19/2023 1:26 PM CDT Pulse 97 05/19/2023 1:26 PM CDT Temperature 36.6 ??C (97.9 ??F) 05/19/2023 1:26 PM CD T Respiratory Rate 16 05/19/2023 1:26 PM CDT Oxygen Saturation - - Inhaled Oxygen Concentration - - Weight 45.5 kg (100 lb 4.8 oz) 05/19/2023 1:26 P M CDT Height - - Body Mass Index 16.44 05/17/2023 1:44 PM CDT documented in this encounter Miscellaneous Notes * Interdisciplinary - Kamila Barron RN - 05/19/2023 1:30 PM CDT Pt ambulated into treatment room in stable condition. Vitals obtained. IV started x1 attempt. Flushed with ease and blood return noted. Labs drawn per MD orders. Medication side effects and intended effects reviewed with pt. Pt medicated per MD orders. Pt tolerated well. IV flushed and removed. Gauze and coban to site. Pt discharged in stable condition. documented in this encounter Plan of Treatment Not on file documented as of this encounter Procedures Procedure Name Priority Date/Time Associated Diagnosis Comments CBC WITH AUTO DIFFERENTIAL STAT 05/19/2023 1:34 PM CDT Oropharyngeal cancer (HCC) CMP (COMPREHENSIVE METABOLIC PANEL) STAT 05/19/2023 1:34 PM CDT Oropharyngeal cancer (HCC) COMPLETE BLOOD COUNT (CBC) WITH DIFF STAT 05/19/2023 1:34 PM CDT Oropharyngeal cancer (HCC) documented in this encounter Results * (ABNORMAL) CBC WITH AUTO DIFFERENTIAL (05/19/2023 1:34 PM CDT) WBC 13.54(H) 4.00 - 12.00 10(3)/mcL 05/19/2023 2:11 PM CDT [facility] RBC 4.36(L) 4.40 - 5.80 10(6)/mcL 05/19/2023 2:11 PM CDT [facility] HEMOGLOBIN (HGB) 11.9(L) 13.0 - 16.5 g/dL 05/19/2023 2:11 PM CDT [facility] HEMATOCRIT (HCT) 37.4(L) 38.0 - 50.0 % 05/19/2023 2:11 PM CDT [facility] MCV 85.8 82.0 - 96.0 fL 05/19/2023 2:11 PM CDT [facility] MCH 27.3 26.0 - 32.0 pg 05/19/2023 2:11 PM CDT [facility] MCHC 31.8 31.0 - 36.0 g/dL 05/19/2023 2:11 PM CDT [facility] PLATELET COUNT 373 140 - 440 10(3)/mcL 05/19/2023 2:11 PM CDT [facility] RDW 14.1 11.8 - 15.5 % 05/19/2023 2:11 PM CDT [facility] MPV 9.3 8.0 - 12.6 fL 05/19/2023 2:11 PM CDT [facility] NEUTROPHILS 88.3(H) 40.0 - 68.0 % 05/19/2023 2:11 PM CDT [facility] LYMPHOCYTES 2.6(L) 19.0 - 49.0 % 05/19/2023 2:11 PM CDT [facility] MONOCYTES 8.9 3.0 - 13.0 % 05/19/2023 2:11 PM CDT [facility] EOSINOPHILS 0.1 0.0 - 8.0 % 05/19/2023 2:11 PM CDT [facility] BASOPHILS 0.1 0.0 - 1.0 % 05/19/2023 2:11 PM CDT [facility] ABSOLUTE NEUTROPHILS 11.96(H) 1.40 - 5.30 10(3)/[facility] 05/19/2023 2:11 PM CDT [facility] ABSOLUTE LYMPHOCYTES 0.35(L) 0.90 - 3.30 10(3)/[facility] 05/19/2023 2:11 PM CDT [facility] ABSOLUTE MONOCYTES 1.20(H) 0.10 - 0.90 10(3)/[facility] 05/19/2023 2:11 PM CDT [facility] ABSOLUTE EOSINOPHIL 0.01 0.00 - 0.50 10(3)/[facility] 05/19/2023 2:11 PM CDT [facility] ABSOLUTE BASOPHILS 0.02 0.00 - 0.10 10(3)/[facility] 05/19/2023 2:11 PM CDT [facility] NRBC PER 100 WBC 0 05/19/19 24 2:11 PM CDT [facility] RESULTS ARE CONSISTENT WITH PERIPHERAL SMEAR REVIEW Yes 05/19/2023 2:11 PM CDT [facility] Blood Venipuncture / Unknown 05/19/2023 1:34 PM CDT 05/19/2023 1:34 PM CDT us Antwon Mirza MD HEMATOLOGY ORDERABLES Fi nal Result [facility] [address] [place] [address] * (ABNORMAL) CMP (COMPREHENSIVE METABOLIC PANEL) (05/19/2023 1:34 PM CDT) SODIUM 132(L) 136 - 145 mmol/L 05/19/2023 2:06 PM CDT [facility] POTASSIUM 4.3 3.5 - 5.1 mmol/L 05/19/2023 2:06 PM [facility] CHLORIDE 95(L) 98 - 107 mmol/L 05/19/2023 2:06 PM [facility] CO2, VENOUS 29 22 - 30 mmol/L 05/19/2023 2:06 PM T [facility] ANION GAP 12.3 <18.0 mmol/L 05/19/2023 2:06 PM [facility] GLUCOSE 93 70 - 99 mg/dL 05/19/2023 2:06 PM [facility] BUN 17 8 - 26 mg/dL 05/19/2023 2:06 PM [facility] CREATININE, BLOOD 0.63(L) 0.70 - 1.30 mg/dL 05/19/2023 2:06 PM T [facility] BUN/CREATININE RATIO 27(H) 12 - 20 ratio 05/19/2023 2:06 PM [facility] TOTAL PROTEIN 7.3 6.3 - 8.2 g/dL 05/19/2023 2:06 PM [facility] ALBUMIN 3.3(L) 3.5 - 5.0 g/dL 05/19/2023 2:06 PM [facility] A/G RATIO 0.8(L) 1.0 - 2.2 05/19/2023 2:06 PM [facility] CALCIUM 9.2 8.7 - 10.5 mg/dL 05/19/2023 2:06 PM [facility] T BILI 0.5 0.2 - 1.2 mg/dL 05/19/2023 2:06 PM [facility] SGOT (AST) 64(H) 5 - 34 U/L 05/19/2023 2:06 PM [facility] SGPT (ALT) 50 0 - 55 U/L 05/19/2023 2:06 PM CDT [facility] ALKALINE PHOSPHATASE 73 40 - 150 U/L 05/19/2023 2:06 PM CDT [facility] IS THE PATIENT REQUIRED TO BE FASTING? No 05/19/2023 2:06 PM CDT [facility] GFR, ESTIMATED >60 >=60 05/19/2023 2:06 PM CDT [facility] Comment: Creatinine Clearance is the preferred criteria for selecting drug dose adjustments in renally impaired patients. ??The GFR is provided as additional pertinent clinical information. GFR is reported in mL/min/1.73 sq m. Calculation based on the Chronic Kidney Disease Epidemiology Collaboration (CKD- EPI) equation refit without adjustment for race. GFR, EST. >60 >=60 024 2:06 PM CDT [facility] GFR, EST. NONAFRICAN >60 >=60 05/19/2023 2:06 PM CDT [facility] Blood Venipuncture / Unknown 05/19/2023 1:34 PM CDT 05/19/2023 1:34 PM CDT Antwon Mirza MD CHEMISTRY ORDERABLES Fin al Result [facility] [address] [place] [address] documented in this encounter Visit Diagnoses Diagnosis Oropharyngeal cancer (HCC)- Primary Malignant neoplasm of oropharynx, unspecified site documented in this encounter Administered Medications Inactive Administered Medications - up to 3 most recent administrations Medication Order MAR Action Action Date Dose Rate Site 0.9 % sodium chloride solution at 125 mL/hr, Intravenous, ONCE, 1 dose, On Tabitha 05/19/23 at 1430Indications:Oropharyngeal cancer (HCC) New Bag 05/19/2023 2:15 PM CDT 250 mL 125 mL/hr cetuximab (ERBITUX) infusion 362 mg 362 mg (rounded from 362.5 mg = 250 mg/m2 ? 1.45 m2 Treatment Plan BSA from Recorded weight), Intravenous, ONCE, 1 dose, On Tabitha 05/19/23 at 1430, Administer over 1 Hours, Monitor patient for one hour post infusion.Indications:Orophary ngeal cancer (HCC) New Bag 05/19/2023 2:25 PM CDT 362 mg diphenhydrAMINE (BENADRYL) injection 25 mg 25 mg, Intravenous, ONCE, 1 dose, On Tabitha 05/19/23 at 1430, Give 30 minutes pre-cetuximab.Indications:Bárbara pharyngeal cancer (HCC) Given 05/19/2023 2:15 PM CDT 25 mg documented in this encounter Care Teams Toolmaker Grade Three Relationship Specialty Start Date End Date Jorge Espinosa PA [address] [place] [address] PCP - General Physician Tie Tamper 04/11/23 Antwon Mirza MD [address] [place] [address] Consulting Physician Medical Oncology 05/04/23 Roland Patel MD [address] [place] [address] Consulting Physician Radiation Oncology 05/04/23 documented as of this encounter
--- OUTSIDE RECORDS SUMMARY | 2024-02-15 11:31 | XMS_ITS | Encounter Summary ---
Author Organization [facility] Address [address] [facility] 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 Blood drawn x1 attempt per left arm. Gauze/coban applied. Patient then to Radiation for treatment. Aware of tomorrow chemo as well as radiation treatment. documented in this encounter Plan of Treatment Not on file documented as of this encounter Visit Diagnoses Not on filedocumented in this encounter Care Teams Portfolio Analyst Relationship Specialty Start Date End Date Jorge Espinosa PA [address] [place] [address] PCP - General Physician Ripshear Operator 04/11/23 Antwon Mirza MD [address] [place] [address] Consulting Physician Medical Oncology 05/04/23 Roland Patel MD [address] [place] [address] Consulting Physician Radiation Oncology 05/04/23 documented as of this encounter
--- OUTSIDE RECORDS SUMMARY | 2024-02-15 11:31 | XMS_ITS | Encounter Summary ---
Author Organization [facility] Care Team Providers Care Data Quality Consultant Name Role Phone Jorge Espinosa Primary Care Provider [phone] Antwon Mirza MD Unavailable [phone] Roland Patel MD Unavailable [phone] Encounter Details Date Type Department Care Team (Latest Contact Info) Description 05/26/2023 Travel Social History Tobacco Use Types Packs/Day Years Used Date Smoking Tobacco: Every Day Cigarettes 0.5 50.9 Started: 1974 Smokeless Tobacco: Never Alcohol Use Standard Drinks/Week Comments Yes 0 (1 standard drink = 0.6 oz pure alcohol) Occasionally, never a regular drinker Sex and Gender Information Value Date Recorded Sex Assigned at Not on file 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
--- OUTSIDE RECORDS SUMMARY | 2024-02-15 11:31 | XMS_ITS | Encounter Summary ---
Author Organization [facility] Care Team Providers Care Coal Getter Name Role Phone Jorge Espinosa Primary Care Provider [phone] Antwon Mirza MD Unavailable [phone] Roland Patel MD Unavailable [phone] Encounter Details Date Type Department Care Team (Latest Contact Info) Description 05/12/2023 Travel Social History Tobacco Use Types Packs/Day Years Used Date Smoking Tobacco: Every Day Cigarettes 0.5 50.9 Started: 1974 Smokeless Tobacco: Never Alcohol Use Standard Drinks/Week Comments Yes 0 (1 standard drink = 0.6 oz pure alcohol) Occasionally, never a regular drinker Sex and Gender Information Value Date Recorded Sex Assigned at Not on file 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
--- OUTSIDE RECORDS SUMMARY | 2024-02-15 11:31 | XMS_ITS | Encounter Summary ---
Author Organization [employer] Care Team Providers Care Payment Poster Name Role Phone Jorge Espinosa Primary Care Provider [phone] Antwon Mirza MD Unavailable [phone] Roland Patel MD Unavailable [phone] Encounter Details Date Type Department Care Team (Latest Contact Info) Description 06/01/2023 Travel Social History Tobacco Use Types Packs/Day Years Used Date Smoking Tobacco: Every Day Cigarettes 0.5 50.9 Started: 1974 Smokeless Tobacco: Never Alcohol Use Standard Drinks/Week Comments Yes 0 (1 standard drink = 0.6 oz pure alcohol) Occasionally, never a regular drinker Sex and Gender Information Value Date Recorded Sex Assigned at Not on file 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
--- OUTSIDE RECORDS SUMMARY | 2024-02-15 11:31 | XMS_ITS | Encounter Summary ---
Author Organization [facility] Address [address] 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 Gender Identity Not on file Sexual Orientation Not on file documented as of this encounter Plan of Treatment Not on file documented as of this encounter Procedures Procedure Name Priority Date/Time Associated Diagnosis Comments RAD ONC ARIA SESSION SUMMARY Routine 05/26/2023 1:08 PM CDT documented in this encounter Results * RAD ONC ARIA SESSION SUMMARY (05/26/2023 1:08 PM CDT) Course ID C1 ARIA RO MODEL Course Intent Curative w/chemo ARIA RO MODEL Course Start Date 05/06/2023 11:27 AM ARIA RO MODEL Session Number 8 ARIA RO MODEL Course End Date 05/12/2023 9:16 AM ARIA RO MODEL Course Last Treatment Date 05/26/2023 1:09 PM ARIA RO MODEL Course Elapsed Days 14 ARIA RO MODEL Reference Point ID [id number] ARIA RO MODEL Reference Point Dosage Given to Date [id number] Gy ARIA RO MODEL Reference Point Session Dosage Given [id number] Gy ARIA RO MODEL Plan ID [id number] ARIA RO MODEL Plan Name Oropharynx & Nodes_70Gy ARIA RO MODEL Energy 6X ARIA RO MODEL Plan Fractions Treated to Date 8 ARIA RO MODEL Plan Total Fractions Prescribed 35 ARIA RO MODEL Plan Prescribed Dose Per Fraction 2 Gy ARIA RO MODEL Plan Total Prescribed Dose 7,000 cGy ARIA RO MODEL Plan Primary Reference Point HN_PRP ARIA RO MODEL 05/26/2023 1:08 PM CDT us Unknown Provider RADIATION ONCOLOGY ORDERABLES F inal Result Performing Organization Address City/State/[facility] Co de Phone Number ARIA RO MODEL [address] [place] [address] documented in this encounter Visit Diagnoses Not on filedocumented in this encounter Care Teams Apartment Manager Relationship Specialty Start Date End Date Jorge Espinosa PA [address] [place] [address] PCP - General Physician Architectural Renderer 04/11/23 Antwon Mirza MD [address] [place] [address] Consulting Physician Medical Oncology 05/04/23 Roland Patel MD [address] [place] [address] Consulting Physician Radiation Oncology 05/04/23 documented as of this encounter
--- OUTSIDE RECORDS SUMMARY | 2024-02-15 11:31 | XMS_ITS | Encounter Summary ---
Author Organization [facility] Address [address] [facility] 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 Gender Identity Not on file Sexual Orientation Not on file documented as of this encounter Plan of Treatment Not on file documented as of this encounter Procedures Procedure Name Priority Date/Time Associated Diagnosis Comments RAD ONC ARIA SESSION SUMMARY Routine 05/16/2023 1:40 PM CDT documented in this encounter Results * RAD ONC ARIA SESSION SUMMARY (05/16/2023 1:40 PM CDT) Course ID C1 ARIA RO MODEL Course Intent Curative w/chemo ARIA RO MODEL Course Start Date 05/06/2023 11:27 AM ARIA RO MODEL Session Number 3 ARIA RO MODEL Course End Date 05/12/2023 9:16 AM ARIA RO MODEL Course Last Treatment Date 05/16/2023 1:42 PM ARIA RO MODEL Course Elapsed Days 4 ARIA RO MODEL Reference Point ID [id number] ARIA RO MODEL Reference Point Dosage Given to Date [id number] Gy ARIA RO MODEL Reference Point Session Dosage Given [id number] Gy ARIA RO MODEL Plan ID [id number] ARIA RO MODEL Plan Name Oropharynx & Nodes_70Gy ARIA RO MODEL Energy 6X ARIA RO MODEL Plan Fractions Treated to Date 3 ARIA RO MODEL Plan Total Fractions Prescribed 35 ARIA RO MODEL Plan Prescribed Dose Per Fraction 2 Gy ARIA RO MODEL Plan Total Prescribed Dose 7,000 cGy ARIA RO MODEL Plan Primary Reference Point HN_PRP ARIA RO MODEL 05/16/2023 1:40 PM CDT us Unknown Provider RADIATION ONCOLOGY ORDERABLES F inal Result Performing Organization Address City/State/[facility] Co de Phone Number ARIA RO MODEL [address] [place] [address] documented in this encounter Visit Diagnoses Not on filedocumented in this encounter Care Teams Rd Scientist Relationship Specialty Start Date End Date Jorge Espinosa PA [address] [place] [address] PCP - General Physician Windrower Operator 04/11/23 Antwon Mirza MD [address] [place] [address] Consulting Physician Medical Oncology 05/04/23 Roland Patel MD [address] [place] [address] Consulting Physician Radiation Oncology 05/04/23 documented as of this encounter
--- OUTSIDE RECORDS SUMMARY | 2024-02-15 11:31 | XMS_ITS | Encounter Summary ---
Author Organization [employer] Care Team Providers Care Leaf Stamper Name Role Phone Jorge Espinosa Primary Care Provider [phone] Antwon Mirza MD Unavailable [phone] Roland Patel MD Unavailable [phone] Encounter Details Date Type Department Care Team (Latest Contact Info) Description 05/16/2023 Travel Social History Tobacco Use Types Packs/Day Years Used Date Smoking Tobacco: Every Day Cigarettes 0.5 50.9 Started: 1974 Smokeless Tobacco: Never Alcohol Use Standard Drinks/Week Comments Yes 0 (1 standard drink = 0.6 oz pure alcohol) Occasionally, never a regular drinker Sex and Gender Information Value Date Recorded Sex Assigned at Not on file 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
--- OUTSIDE RECORDS SUMMARY | 2024-02-15 11:31 | XMS_ITS | Encounter Summary ---
Author Organization [facility] Address [address] [facility] [place] [address] Phone Care Team Providers Care Reproduction Order Processor Name Role Phone Jorge Espinosa Primary Care Provider [phone] Antwon Mirza MD Unavailable [phone] Roland Patel MD Unavailable [phone] Encounter Details Date Type Department Care Team (Late st Contact Info) Description 05/20/2023 Telephone 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 Left voicemail for sister. documented in this encounter Plan of Treatment Not on file documented as of this encounter Visit Diagnoses Not on filedocumented in this encounter Care Teams Reproduction Order Processor Relationship Specialty Start Date End Date Jorge Espinosa PA [address] [place] [address] PCP - General Physician Skeiner 04/11/23 Antwon Mirza MD [address] [place] [address] Consulting Physician Medical Oncology 05/04/23 Roland Patel MD [address] [place] [address] Consulting Physician Radiation Oncology 05/04/23 documented as of this encounter
--- OUTSIDE RECORDS SUMMARY | 2024-02-15 11:31 | XMS_ITS | Encounter Summary ---
Author Organization [employer] Care Team Providers Care Parts Salesman Name Role Phone Jorge Espinosa Primary Care Provider [phone] Antwon Mirza MD Unavailable [phone] Roland Patel MD Unavailable [phone] Encounter Details Date Type Department Care Team (Latest Contact Info) Description 05/04/2023 Travel Social History Tobacco Use Types Packs/Day Years Used Date Smoking Tobacco: Every Day Cigarettes 0.5 50.9 Started: 1974 Smokeless Tobacco: Never Alcohol Use Standard Drinks/Week Comments Yes 0 (1 standard drink = 0.6 oz pure alcohol) Occasionally, never a regular drinker Sex and Gender Information Value Date Recorded Sex Assigned at Not on file 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
--- OUTSIDE RECORDS SUMMARY | 2024-02-15 11:31 | XMS_ITS | Encounter Summary ---
Author Organization [facility] Address [address] [facility] [place] [address] Phone Care Team Providers Care Primer Boxer Name Role Phone Jorge Espinosa Primary Care Provider [phone] Encounter Details Date Type Department Care Team (Late st Contact Info) Description 04/25/2023 Telephone [facility] Oncology Services [address] [place] [id number] Roland Patel MD [address] [place], [place] [id number] Social History Tobacco Use Types Packs/Day Years Used Date Smoking Tobacco: Every Day Cigarettes 0.5 50.9 Started: 1974 Smokeless Tobacco: Never Alcohol Use Standard Drinks/Week Comments Yes 0 (1 standard drink = 0.6 oz pure alcohol) Occasionally, never a regular drinker Sex and Gender Information Value Date Recorded Sex Assigned at Not on file 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 Attempted to call patient x 3. Unable toget ahold of patient. Spoke to ANGELITA Gonzalez, regarding setting up transportation with social work. documented in this encounter Plan of Treatment Not on file documented as of this encounter Visit Diagnoses Not on filedocumented in this encounter Care Teams Primer Boxer Relationship Specialty [place] [address] [place] [id number] PCP - General Physician Powder Compounder 04/11/23 documented as of this encounter
--- OUTSIDE RECORDS SUMMARY | 2024-02-15 11:31 | XMS_ITS | Encounter Summary ---
Author Organization [facility] Address [address] [place] [address] Phone Care Team Providers Care Commercial Underwriter Name Role Phone Jorge Espinosa Primary Care Provider [phone] Antwon Mirza MD Unavailable Roland Patel MD Unavailable Reason for Visit * Reason Comments Cancer Oropharyngeal squamo us cell carcinoma, p16+. 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 Gender Identity Not on file Sexual Orientation Not on file documented as of this encounter Last Filed Vital Signs Vital Sign Reading Time Taken Comments Blood Pressure 140/72 05/31/2023 1:27 PM CDT Pulse 72 05/31/2023 1:27 PM CDT Temperature 36.7 ??C (98 ??F) 05/31/2023 1:27 PM CDT Respiratory Rate 16 05/31/2023 1:27 PM CDT Oxygen Saturation 100% 05/31/2023 1:27 PM CDT Inhaled Oxygen Concentration - - Weight 44.3 kg (97 lb 9.6 oz) 05/31/2023 1:27 PM CDT Height 166.4 cm (5' 5.5 ) 05/31/2023 1:27 PM CDT Body Mass Index 15.99 05/31/2023 1:27 PM CDT documented in this encounter Progress Notes * Roland Patel MD - 05/31/2023 1:15 PM CDT [facility] RADIATION ONCOLOGY ON TREATMENT VISIT Patient Name: Aleksey Godfrey Encounter Date: 05/31/2023 Diagnosis: 1. Encounter for radiotherapy 2. Patient on combined chemotherapy and radiation Current weekly cetuximab. 3. Oropharyngeal cancer (HCC) 4. Dysphagia, oropharyngeal 5. PEG (percutaneous endoscopic gastrostomy) status (HCC) Site: Oropharynx and regional lymphatics Total Dose to Date: 2000 cGy of 7000 cGy Systemic Therapy: Concurrent weekly cetuximab with cycle 1 05/12/2023, cycle 2 05/19/2023, cycle 3 05/26/2023. Patient Concerns/Complaints: Today was his 10th treatment and 3rd OTV. He was continued to be noncompliant with regards to showing up regularly for treatment. He remained essentially NPO. He said he was able to handle his secretions. He requested and was given additional samples of Ensure. He denied any symptoms consistent with radiation pharyngitis or esophagitis. He was having difficulty sleeping and asked about something to help with his insomnia and also for a prescription nicotine patch to try and help him stop smoking. He was seen by himself. Patient Weight: Reviewed. Wt Readings from Last 3 Encounters: 05/31/23 (!) 97 lb 9.6 oz (44.3 kg) 05/25/23 (!) 98 lb 6.4 oz (44.6 kg) 05/19/23 100 lb 4.8 oz (45.5 kg) Vitals: 05/31/23 1327 BP: 140/72 BP Location: Right Arm BP Position: Sitting BP Cuff Size: Regular Pulse: 72 Resp: 16 Temp: 98 ??F (36.7 ??C) SpO2: 100% Weight: (!) 97 lb 9.6 oz (44.3 kg) Height: 5' 5.5 (1.664 m) Physical Examination: ECOG PS of a somewhat marginal 1, stable. He was in no distress and was sitting and breathing comfortably. Oral cavity and oropharynx were without mucositis. No acute radiation dermatitis changes. No gross neurologic deficits. Imaging: CBCT was [...] regards radiotherapy. Plan: Continue radiotherapy and concurrent cetuximab. For his request for smoking cessation aids, i.e. nicotine patches, and insomnia Medical Oncology will be asked to address. By: Roland Patel MD 05/31/2023, 2:07 PM CDT Patient Care Team: Jorge Espinosa PA as PCP - General (Physician Executive Asst) Antwon Mirza MD as Consulting Physician (Medical Oncology) Roland Patel MD as Consulting Physician (Radiation Oncology) documented in this encounter Miscellaneous Notes * Interdisciplinary - Ketty Dewitt MA - 05/31/2023 1:15 PM CDT Rad onc OTV vitals--tjo Cosigned by Roland Patel MD at 05/31/2023 2:06 PM CDT documented in this encounter Plan of Treatment Not on file documented as of this encounter Visit Diagnoses Diagnosis Encounter for radiotherapy- Primary Radiotherapy Patient on combined chemotherapy and radiation Encounter for antineoplastic chemotherapy Oropharyngeal cancer (HCC) Malignant neoplasm of oropharynx, unspecified site Dysphagia, oropharyngeal Dysphagia, oropharyngeal phase PEG (percutaneous endoscopic gastrostomy) status (HCC) documented in this encounter Care Teams Commercial Underwriter Relationship Specialty Start Date End Date Jorge Espinosa PA [address] [place] [address] PCP - General Physician Executive Asst 04/11/23 Antwon Mirza MD [address] [place] [address] Consulting Physician Medical Oncology 05/04/23 Roland Patel MD [address] [place] [address] Consulting Physician Radiation Oncology 05/04/23 documented as of this encounter
--- OUTSIDE RECORDS SUMMARY | 2024-02-15 11:31 | XMS_ITS | Encounter Summary ---
Author Organization [facility] Address [address] [facility] [place] [address] Phone Care Team Providers Care Handy Man Name Role Phone Jorge Espinosa Primary Care Provider [phone] Antwon Mirza MD Unavailable Roland Patel MD Unavailable Encounter Details Date Type Department Care Team (Latest Contact Info) Description 05/24/2023 1:00 PM CDT Clinical Support 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 Gender Identity Not on file Sexual Orientation Not on file documented as of this encounter Plan of Treatment Not on file documented as of this encounter Procedures Procedure Name Priority Date/Time Associated Diagnosis Comments RAD ONC ARIA SESSION SUMMARY Routine 05/24/2023 1:18 PM CDT documented in this encounter Results * RAD ONC ARIA SESSION SUMMARY (05/24/2023 1:18 PM CDT) Course ID C1 ARIA RO MODEL Course Intent Curative w/chemo ARIA RO MODEL Course Start Date 05/06/2023 11:27 AM ARIA RO MODEL Session Number 6 ARIA RO MODEL Course End Date 05/12/2023 9:16 AM ARIA RO MODEL Course Last Treatment Date 05/24/2023 1:15 PM ARIA RO MODEL Course Elapsed Days 12 ARIA RO MODEL Reference Point ID [id number] ARIA RO MODEL Reference Point Dosage Given to Date [id number] Gy ARIA RO MODEL Reference Point Session Dosage Given [id number] Gy ARIA RO MODEL Plan ID [id number] ARIA RO MODEL Plan Name Oropharynx & Nodes_70Gy ARIA RO MODEL Energy 6X ARIA RO MODEL Plan Fractions Treated to Date 6 ARIA RO MODEL Plan Total Fractions Prescribed 35 ARIA RO MODEL Plan Prescribed Dose Per Fraction 2 Gy ARIA RO MODEL Plan Total Prescribed Dose 7,000 cGy ARIA RO MODEL Plan Primary Reference Point HN_PRP ARIA RO MODEL 05/24/2023 1:18 PM CDT us Unknown Provider RADIATION ONCOLOGY ORDERABLES F inal Result Performing Organization Address City/State/[facility] Co de Phone Number ARIA RO MODEL [address] [place] [address] documented in this encounter Visit Diagnoses Not on filedocumented in this encounter Care Teams Handy Man Relationship Specialty Start Date End Date Jorge Espinosa PA [address] [place] [address] PCP - General Physician Medical Billing Representative 04/11/23 Antwon Mirza MD [address] [place] [address] Consulting Physician Medical Oncology 05/04/23 Roland Patel MD [address] [place] [address] Consulting Physician Radiation Oncology 05/04/23 documented as of this encounter
--- OUTSIDE RECORDS SUMMARY | 2024-02-15 11:31 | XMS_ITS | Encounter Summary ---
Author Organization [facility] Address [address] [place] [address] Phone Care Team Providers Care Middleware Solutions Architect Name Role Phone Jorge Espinosa Primary Care Provider [phone] Antwon Mirza MD Unavailable [phone] Roland Patel MD Unavailable [phone] Reason for Visit * Radiology Services (Routine) - Closed Specialty Diagnoses / Procedures Referred By Contac t Referred To Contact Radiology Diagnoses Oropharyngeal cancer (HCC) Procedures RADIATION THERAPY PLANNING W/O CONTRAST BODY Roland Patel MD [address] [place] [address] Phone: tel: fax: Referral ID Status Reason Start Date Expiration Date Visits Re quested Visits Authorized [id number] Closed 04/19/2023 1 1 Encounter Details Date Type Department Care Team (Latest Contact Info) Description 05/04/2023 9:15 AM CDT Ancillary Procedure [facility] [address] [place] [address] Roland Patel MD [address] [place] [address] Encounter for radiotherapy (Primary Dx); Oropharyngeal cancer (HCC) Discharge Disposition: Discharged to [...] on file 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 Gender Identity Not on file Sexual Orientation Not on file documented as of this encounter Last Filed Vital Signs Vital Sign Reading Time Taken Comments Blood Pressure - - Pulse - - Temperature - - Respiratory Rate - - Oxygen Saturation - - Inhaled Oxygen Concentration - - Weight 45.6 kg (100 lb 8 oz) 05/04/2023 9:00 AM CDT standing scale Height 166.4 cm (5' 5.5 ) 05/04/2023 9: 00 AM CDT Body Mass Index 16.47 05/04/2023 9:00 AM CDT documented in this encounter Progress Notes * Roland Patel MD - 05/04/2023 9:15 AM CDT TREATMENT PLAN AND ORDERS NOTE: His clinical presentation and course dating back to [facility] ED visit 03/21/2023 to the present were reviewed in conjunction with the results of direct laryngoscopy and biopsy 03/25/2023 including biopsy pathology and PET/CT study 03/30/2023. In addition hiscurrent physical exam findings, overall performance status, medical co-morbidities and treatment wishes were reviewed. After review and consideration of the preceding the order is for nonsurgical management with external beam radiotherapy, 70 Gy in 35 fractions, to a target volume of the oropharynx and regional nodeswith systemic therapy. Systemic therapy as per his medical oncologist Dr. Mirza will consist of concurrent cisplatin. The external beam radiotherapy treatment modality was ordered to be VMAT/IMRT. VMAT/IMRT was medically necessary in order to ensure coverage of the target volume while minimizing dose to uninvolved adjacent critical organs at risk including the major salivary glands, pharyngeal constrictors, brachial plexus, and spinal cord. By ensuring coverage of the target volume with the pre scription dose and minimizing dose to uninvolved adjacent critical organs at risk with the use of VMAT/IMRT, local tumor control and the potential for cure should be maximized while the risks for both acute and chronic morbidity lessened. His treatment position was ordered to be supine with his arms down by his side with an extended custom Aquaplast mask and the use of arm stretchers. The use of an extended custom Aquaplast mask and arm stretchers were medically necessary in order to be able to achieve the required reproducibility of his daily treatment position over the course of treatment. Fabrication of an extended custom Aquapl ast mask was ordered. The use of arm stretchers to lower his shoulders at the time of fabrication of the extended custom Aquaplast mask and for his daily treatments was also ordered. A non-contrast treatment planning CT scan of his head and neck through the upper chest was ordered to be obtained in Radiation Oncology with him in the treatment position. Fusion of the non-contrast treatment planning CT scan with the PET portion of the diagnostic PET/CT study of 03/30/[address] neck with contrast 03/30/2023 was ordered to be performed by physics. Using the fused data set, 3-dimensional treatment planning of a VMAT/IMRT plan, simulation of custom IMRT treatmentdevices, and dose calculations were ordered. IMRT QA was ordered to be performed and approved priorto delivery of the first fraction of radiotherapy. A CBCT was ordered to be obtained, adjustments made in his positioning as indicated by the initial CBCT, reviewed, and approved by the physician prior to delivery of the first fraction of radiotherapy setting the isocenter for this course of radiotherapy. After delivery of the first fraction of radiotherapy, going forward prior to each day's treatment a CBCT was ordered to be obtained with adjustments made in his positioning prior to delivery of that day's fraction of radiotherapy as indicated by that day's CBCT. Daily imaging with CBCTs was medically necessary in order to ensure the accuracyof the daily setup and treatment delivery over the course of radiotherapy. Review of each day's imaging by the physician prior to the next fraction of radiotherapy was ordered. A continuing medical physics check was ordered to be performed once within every group of 5 fractions to ensure the radiotherapy prescription was delivered as prescribed. A physician management visitwas ordered be performed at minimum once within every group of 5 fractions to monitor for and manage any radiotherapy related toxicities which may arise during radiotherapy. SIMULATION NOTE: He was placed supine on the CT simulator couch with his arms down by his side and his head in a C head rest. Arm stretchers were used to lower his shoulders. A custom extended Aquaplast mask was then fabricated with him in this position. This will be his treatment position. I was present for determining the supine position, implementation of the arm stretchers, fabrication of thecustom Aquaplast mask, and approved all. A noncontrast CT scan of his head and neck down through the upper chest was then obtained with him in the treatment position. I reviewed and approved the CT scan prior to him getting off the table. This CT scan data set was then fused with the PET portion ofthe diagnostic PET/CT study from 03/30/[address] neck with contrast 03/23/2023. The fused data set was then used to perform 3-dimensional treatment planning and simulation from whicha VMAT/IMRT oropharyngeal and regional anum treatment plan was generated, custom IMRT treatment devices simulated, and dose calculations performed. * Roland Patel MD - 05/04/2023 9:15 AM CDT INTERVAL NOTE: He showed up today after missing to previous scheduled appointments for treatment planning and simulation. He had been scheduled to be seen yesterday for treatment planning and simulation but did not keep that appointment. He had been scheduled to start chemotherapy today but that was rescheduled for Tuesday of next week when he will also begin radiotherapy. The importance of keeping scheduled appointments for treatment was reviewed once again with him. He was seen today by himself. He had no new questions or concerns about the recommendation for a definitive course of radiotherapy with concurrent cisplatin. Physical exam today was without change other than he was down and additional 4 lb from the time of radiation oncology consultation 04/19/2023 with his weight today 100 lb as compared to 104 lb 04/19/2023. The dietitian, Laurie, was in the Cancer Center today and was able to meet with him and has started working on boost in his nutritional state. Brief physical exam was without change. He continued to look cachectic. Please see separate Treatment Planning And Simulation Note from today. It was anticipated that he would start radiotherapy and cisplatin and Tuesday of next week. He was asked to call to speak withme or to make an appointment to be seen prior to Tuesday of next week as needed. Roland Patel MD 05/04/2023 documented in this encounter Miscellaneous Notes * Interdisciplinary - Laurie Go, RD - 05/04/2023 9:15 AM CDT S: Diagnosis: Encounter Diagnoses Name Primary? Encounter for radiotherapy Yes Oropharyngeal cancer (HCC) Treatment Plan: concurrent radio-chemotherapy (cisplatin) Nutrition Problem: evident malnutrition in the context of chronic illness B: PEG TF: Nutren 1.5, 4 cartons/day with 30ml H2O flush before & after each bolus feeding Home Diet: tolerates fluids only Home oral supplement: protein powder in 2% milk (no whole milk due to financial constraints), (Of note, pt was to drink 2 nutrition supplements daily, in addition to PEG TF, but reports he cannot afford them) Nutrition Impact Symptoms: decreased appetite, difficulty swallowing, weight loss Medical History: HTN, edentulous, 03/29/2023-PEG tube placement Medications: zofran, oxycodone Vitamins: FeEO4 Labs: 03/30/23-FI=597, Wn=932, K=4.3, Mg=2.2, P=3.4, EGFR>90; Initial Wt: 100# 9oz -05/04/2023 Height: 5' 5.5 BMI: 16.47 BMI weight range for height: 114-149# Adjusted BW: n/a UBW: 170# (at one time within the past 1-2 years) EMR wt hx: 104# -04/19/2023 112# 14oz -03/30/2023 %Wt Loss: 11% in 5 weeks A.S.P.E.N Clinical Characteristics to Support Malnutrition Diagnosis Clinical Characteristic Clinical Assessment Criteria/Location Energy Intake Inadequate <75% of estimated energy requirement, >/=1 month Weight Loss Significant 11% in 5 weeks Subcutaneous Fat Loss Severe Triceps, Buccal Muscle Loss Severe [place], Clavicle, Acromion, Patella region, inner Thigh Calf-not well developed; Fluid Accumulation None Noted Hand Show Design Supervisor Strength Unable to Assess A minimum of two characteristics are recommended for diagnosis of either moderate (non-severe) or severe malnutrition. These characteristics are indicative of severe malnutrition in the context of chronic illness. Estimated needs: Calories: 4083-8488 (35-40kcal/kg) Protein: 69-92gm (1.5-2gm/kg) Fluids: 1600ml A: pt at high nutrition risk per current assessment; meets criteria for severe malnutrition; as treatment progresses anticipate he will not be able to drink fluids, as well as he is currently; Recommend increasing PEG TF to 5 cartons Nutren 1.5 daily (1.25 cartons per feeding x4 a day); With 60ml H2O (or 1 full syringe) flush before & after each bolus feeding; PEG TF increase will provide: 1250ml Nutren 1.5 (product is 76% H2O)), 1875 calories, 85gm PRO, 220gm CHO (no fiber), 3000mg K+; H2O flush will provide: 480ml (1730ml TF+H2O flush &/or 1430ml total free H2O) Discussed PEG TF change with pt & will submit PEG TF order change to DME, once pt tells me (or staff) who is the DME; Goal: PEG TF tolerance, weight maintenance, or some wt gains would be preferred. LAURIE GO RD; 05/04/2023,1:16 PM CDT documented in this encounter Plan of Treatment Not on file documented as of this encounter Visit Diagnoses Diagnosis Encounter for radiotherapy- Primary Radiotherapy Oropharyngeal cancer (HCC) Malignant neoplasm of oropharynx, unspecified site documented in this encounter Care Teams Middleware Solutions Architect Relationship Specialty Start Date End Date Jorge Espinosa PA [address] [place] [address] PCP - General Physician Manager Talent Acquisition 04/11/23 Antwon Mirza MD [address] [place] [address] Consulting Physician Medical Oncology 05/04/23 Roland Patel MD [address] [place] [address] Consulting Physician Radiation Oncology 05/04/23 documented as of this encounter
--- OUTSIDE RECORDS SUMMARY | 2024-02-15 11:31 | XMS_ITS | Encounter Summary ---
Author Organization [facility] Address [address] [place] 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 Gender Identity Not on file Sexual Orientation Not on file documented as of this encounter Plan of Treatment Not on file documented as of this encounter Procedures Procedure Name Priority Date/Time Associated Diagnosis Comments RAD ONC ARIA SESSION SUMMARY Routine 05/31/2023 1:16 PM CDT documented in this encounter Results * RAD ONC ARIA SESSION SUMMARY (05/31/2023 1:16 PM CDT) Course ID C1 ARIA RO MODEL Course Intent Curative w/chemo ARIA RO MODEL Course Start Date 05/06/2023 11:27 AM ARIA RO MODEL Session Number 10 ARIA RO MODEL Course End Date 05/12/2023 9:16 AM ARIA RO MODEL Course Last Treatment Date 05/31/2023 1:17 PM ARIA RO MODEL Course Elapsed Days 19 ARIA RO MODEL Reference Point ID [id number] ARIA RO MODEL Reference Point Dosage Given to Date [id number] Gy ARIA RO MODEL Reference Point Session Dosage Given 1.46394813 Gy ARIA RO MODEL Plan ID [id number] ARIA RO MODEL Plan Name Oropharynx & Nodes_70Gy ARIA RO MODEL Energy 6X ARIA RO MODEL Plan Fractions Treated to Date 10 ARIA RO MODEL Plan Total Fractions Prescribed 35 ARIA RO MODEL Plan Prescribed Dose Per Fraction 2 Gy ARIA RO MODEL Plan Total Prescribed Dose 7,000 cGy ARIA RO MODEL Plan Primary Reference Point HN_PRP ARIA RO MODEL 05/31/2023 1:16 PM CDT us Unknown Provider RADIATION ONCOLOGY ORDERABLES F inal Result Performing Organization Address City/State/[facility] Co de Phone Number ARIA RO MODEL [address] [place] [address] documented in this encounter Visit Diagnoses Not on filedocumented in this encounter Care Teams Bufferer Relationship Specialty Start Date End Date Jorge sEpinosa PA [address] [place] [address] PCP - General Physician Programming Equipment Operator 04/11/23 Antwon Mirza MD [address] [place] [address] Consulting Physician Medical Oncology 05/04/23 Roland Patel MD [address] [place] [address] Consulting Physician Radiation Oncology 05/04/23 documented as of this encounter
--- OUTSIDE RECORDS SUMMARY | 2024-02-15 11:31 | XMS_ITS | Encounter Summary ---
Author Organization [facility] Address [address] [place] [address] Phone Care Team Providers Care Clinical Applications Specialist Name Role Phone Jorge Espinosa Primary Care Provider [phone] Antwon Mirza MD Unavailable [phone] Roland Patel MD Unavailable [phone] Reason for Visit * Episode Based Medications (Routine) - Authorized Specialty Diagnoses / Procedures Referred By Contac t Referred To Contact Diagnoses Oropharyngeal cancer (HCC) Antwon Mirza MD [address] [place] [address] Phone: tel: fax: [facility] Oncology Services [address] [place] [address] Phone: tel: fax: Referral ID Status Reason Start Date Expiration Date V isits Requested Visits Authorized [id number] Authorized 05/09/2023 1 24 Encounter Details Date Type Department Care Team (Latest Contact Info) Description 05/26/2023 1:30 PM CDT Clinical Support [facility] Oncology Services [address] [place] [address] Antwon Mirza MD [address] [place] [address] Oropharyngeal cancer (HCC) (Primary Dx) [...] on file 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 Vitals obtained. IV access x1 attempt. Flushed without difficulty, blood return present. Premeds and chemo given per MD orders. Tolerated well. IV removed. Gauze and coband applied. Pt left in stable condition. documented in this encounter [...] mL/hr, Intravenous, ONCE, 1 dose, On Tabitha 05/26/23 at 1330Indications:Oropharyngeal cancer (HCC) New Bag 05/26/2023 1:17 PM CDT 250 mL 100 mL/hr cetuximab (ERBITUX) chemo infusion 362 mg 362 mg (rounded from 362.5 mg = 250 mg/m2 ? 1.45 m2 Treatment Plan BSA from Recorded weight), Intravenous, ONCE, 1 dose, On Tabitha 05/26/23 at 1400, Monitor patient for one hour post infusion.Indications:Oropharyn geal cancer (HCC) Given 05/26/2023 1:46 PM CDT 362 mg diphenhydrAMINE (BENADRYL) injection 25 mg 25 mg, Intravenous, ONCE, 1 dose, On Tabitha 05/26/23 at 1330, Give 30 minutes pre-cetuximab.Indications:Orop haryngeal cancer (HCC) Given 05/26/2023 1:17 PM CDT 25 mg documented in this encounter Care Teams Clinical Applications Specialist Relationship Specialty Start Date End Date Jorge Espinosa PA [address] [place] [address] PCP - General Physician Solar Sales 04/11/23 Antwon Mirza MD [address] [place] [address] Consulting Physician Medical Oncology 05/04/23 Roland Patel MD [address] [place] [address] Consulting Physician Radiation Oncology 05/04/23 documented as of this encounter
--- OUTSIDE RECORDS SUMMARY | 2024-02-15 11:31 | XMS_ITS | Encounter Summary ---
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
--- OUTSIDE RECORDS SUMMARY | 2024-02-15 11:31 | XMS_ITS | Encounter Summary ---
Author Organization [facility] Address [address] [facility] [place] [address] Phone Care Team Providers Care Turf And Grounds Supervisor Name Role Phone Jorge Espinosa Primary Care Provider Antwon Mirza MD Unavailable Roland Patel MD Unavailable Encounter Details Date Type Department Care Team (Late st Contact Info) Description 05/26/2023 Documentation Only [facility] [address] [place] [address] Roland Patel MD [address] [place] [address] Social History Tobacco Use Types Packs/Day Years Used Date Smoking Tobacco: Every Day Cigarettes 0.5 50.9 Started: 1974 Smokeless Tobacco: Never Alcohol Use Standard Drinks/Week Comments Yes 0 (1 standard drink = 0.6 oz pure alcohol) Occasionally, never a regular drinker Sex and Gender Information Value Date Recorded Sex Assigned at Not on file 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 Gender Identity Not on file Sexual Orientation Not on file documented as of this encounter Miscellaneous Notes * Allie - Genny Go, RD - 05/26/2023 1:00 PM CDT 05/25/2023-weekly wt=99# 6oz (down 3# since treatment started); Pt only able to put in 4 cartons of feeding a day with 1 syringe of water before & after; drinks 16-32oz water daily (approximately 48oz H2O/day) Reports that he also consumes a protein powder in milk 1-2x/day; 05/26/23-Li=673, K=4.1, albumin=3.0, EGFR>60; Recommended that he bolus 1.25 cartons (x4 feedings a day) with 1 syringe of water before & after each bolus, & Change to a sport drink instead of water to sip on (due to low blood sodium levels). documented in this encounter Plan of Treatment Not on file documented as of this encounter Visit Diagnoses Not on filedocumented in this encounter Care Teams Turf And Grounds Supervisor Relationship Specialty Start Date End Date Jorge Espinosa PA [address] [place] [address] PCP - General Physician Rn Military 04/11/23 Antwon Mirza MD [address] [place] [address] Consulting Physician Medical Oncology 05/04/23 Roland Patel MD [address] [place] [address] Consulting Physician Radiation Oncology 05/04/23 documented as of this encounter
--- OUTSIDE RECORDS SUMMARY | 2024-02-15 11:31 | XMS_ITS | Encounter Summary ---
Author Organization [facility] Address [address] [place] [address] Phone Care Team Providers Care Adolescent Psychiatrist Name Role Phone Jorge Espinosa Primary Care Provider Antwon Mirza MD Unavailable Roland Patel MD Unavailable Encounter Details Date Type Department Care Team (Late st Contact Info) Description 05/11/2023 Documentation Only [facility] Oncology Services [address] [place] [address] Hiren Lester MD [address] [place] [address] Social History Tobacco Use Types Packs/Day Years Used Date Smoking Tobacco: Every Day Cigarettes 0.5 50.9 Started: 1974 Smokeless Tobacco: Never Alcohol Use Standard Drinks/Week Comments Yes 0 (1 standard drink = 0.6 oz pure alcohol) Occasionally, never a regular drinker Sex and Gender Information Value Date Recorded Sex Assigned at Not on file 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 Date of Service: 05/11/2023 : 1960 Charge Capture Note: The patient's IMRT plan was reviewed, including dose volume histograms. Review and acceptance of the IMRT plan resulted in 1 x 50222, 1 x 54295, and 3 x [id number] charges. For medical justification of the above charges, please see earlier progress notes in the Epic system. Hiren Lester MD, , FACR, FACRO Radiation Oncology documented in this encounter Plan of Treatment Not on file documented as of this encounter Visit Diagnoses Not on filedocumented in this encounter Care Teams Adolescent Psychiatrist Relationship Specialty Start Date End Date Jorge Espinosa PA [address] [place] [address] PCP - General Physician Languages And Literature Instructor 04/11/23 Antwon Mirza MD [address] [place] [address] Consulting Physician Medical Oncology 05/04/23 Roland Patel MD [address] [place] [address] Consulting Physician Radiation Oncology 05/04/23 documented as of this encounter
--- OUTSIDE RECORDS SUMMARY | 2024-02-15 11:31 | XMS_ITS | Encounter Summary ---
Author Organization [facility] Address [address] [facility] 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 Gender Identity Not on file Sexual Orientation Not on file documented as of this encounter Plan of Treatment Not on file documented as of this encounter Procedures Procedure Name Priority Date/Time Associated Diagnosis Comments RAD ONC ARIA SESSION SUMMARY Routine 05/27/2023 11:48 AM CDT documented in this encounter Results * RAD ONC ARIA SESSION SUMMARY (05/27/2023 11:48 AM CDT) Course ID C1 ARIA RO MODEL Course Intent Curative w/chemo ARIA RO MODEL Course Start Date 05/06/2023 11:27 AM ARIA RO MODEL Session Number 9 ARIA RO MODEL Course End Date 05/12/2023 9:16 AM ARIA RO MODEL Course Last Treatment Date 05/27/2023 11:49 AM ARIA RO MODEL Course Elapsed Days 15 ARIA RO MODEL Reference Point ID [id number] ARIA RO MODEL Reference Point Dosage Given to Date [id number] Gy ARIA RO MODEL Reference Point Session Dosage Given 1.05647699 Gy ARIA RO MODEL Plan ID [id number] ARIA RO MODEL Plan Name Oropharynx & Nodes_70Gy ARIA RO MODEL Energy 6X ARIA RO MODEL Plan Fractions Treated to Date 9 ARIA RO MODEL Plan Total Fractions Prescribed 35 ARIA RO MODEL Plan Prescribed Dose Per Fraction 2 Gy ARIA RO MODEL Plan Total Prescribed Dose 7,000 cGy ARIA RO MODEL Plan Primary Reference Point HN_PRP ARIA RO MODEL 05/27/2023 11:4 8 AM CDT us Unknown Provider RADIATION ONCOLOGY ORDERABLES F inal Result Performing Organization Address City/State/[facility] Co de Phone Number ARIA RO MODEL [address] [place] [address] documented in this encounter Visit Diagnoses Not on filedocumented in this encounter Care Teams Customer Care Coordinator Relationship Specialty Start Date End Date Jorge Espinosa PA [address] [place] [address] PCP - General Physician In Home Baby Sitter 04/11/23 Antwon Mirza MD [address] [place] [address] Consulting Physician Medical Oncology 05/04/23 Roland Patel MD [address] [place] [address] Consulting Physician Radiation Oncology 05/04/23 documented as of this encounter
--- OUTSIDE RECORDS SUMMARY | 2024-02-15 11:31 | XMS_ITS | Encounter Summary ---
Author Organization [facility] Address [address] [facility] [place] [address] Phone Care Team Providers Care Business Operations Specialist Name Role Phone Jorge Espinosa Primary Care Provider [phone] Antwon Mirza MD Unavailable Roland Patel MD Unavailable Reason for Visit * Reason Comments Follow-up Encounter Details Date Type Department Care Team (Late st Contact Info) Description 05/17/2023 2:20 PM CDT Office Visit [facility] Oncology Services [address] [place] [address] Antwon Mirza MD [address] [place] [address] Oropharyngeal cancer (HCC) (Primary Dx); PEG (percutaneous endoscopic gastrostomy) status (HCC); Dysphagia, oropharyngeal Discharge Disposition: Discharged to home or Selfcare [...] on file 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 Gender Identity Not on file Sexual Orientation Not on file documented as of this encounter Last Filed Vital Signs Vital Sign Reading Time Taken Comments Blood Pressure 163/93 05/17/2023 1:44 PM CDT Pulse 77 05/17/2023 1:44 PM CDT Temperature 36.3 ??C (97.3 ??F) 05/17/2023 1:44 PM CD T Respiratory Rate 20 05/17/2023 1:44 PM CDT Oxygen Saturation 99% 05/17/2023 1:44 PM CDT Inhaled Oxygen Concentration - - Weight 45 kg (99 lb 4.8 oz) 05/17/2023 1:44 PM C DT Height 166.4 cm (5' 5.5 ) 05/17/2023 1:44 PM CDT Body Mass Index 16.27 05/17/2023 1:44 PM CDT documented in this encounter Progress Notes * Shelly Foster - 05/17/2023 2:20 PM CDT Outpatient Hem/Onc Progress Note PROGRESS NOTE Aleksey Godfrey is a 63 y.o. 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 He started concurrent treatment with Cetuximab 600 mg infusion weekly on 05/12/23. He started radiation therapy same day. Patient continues to do central feeding with Osmolite 1.5 calorie formula at 5 cartons per day. Aleksey recites attempting to get in 5 cartons daily, only able to ingest 4 cartons yesterday. He reports ingesting 2 cartons this morning before presenting for treatment. Aleksey continues to drink liquids by mouth without cough or choking. He recites tolerating C1 well without rash eruption after treatment. He denies any headache, dizziness, change in bowels, or nausea. Patient denies any oral irritation. He denies any sore throat. Patient reports using OTC Ibuprofen as needed to improve discomfort related to sinus headache. Aleksey recites running out of available Oxycodone 5 mg/5mL, stating he was taking every 6 hours for Aleksey continues to use cigarettes at less than 1 pack per day. 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 Aelksey recalls Niece voiced concerns roughly 12 months ago, as she was only seeing him few times per year. Patient recalls experiencing syncopal event prior to presenting to [facility] via [facility]. He recites prior to LOC he was experiencing hemoptysis with increase in blood expressed withcough as episode continued. He was transferred from [facility] to [facility] after CT neck showed large mass arising [...] for malignancy such as SCC involvingL parapharyngeal, environmental studies faculty member, submandibular, sublingual spaces with ossesous involvement of [...] time. Aleksey attempted to establish care with [facility], unfortunately out of network with his insurance. Patient started XRT on 05/13/[address] simulation on 05/12/23. --05/12/23 patient started Cetuximab 600 mg infusion planned for weekly treatments concurrent with radiation therapy Reviewed patients past medical, surgical, social, and family history. No outpatient medications have been marked as taking for the 05/17/23 encounter (Appointment) with Antwon Mirza MD. Allergies as of 05/17/2023 - Reviewed 05/16/2023 Allergen Reaction Noted Bee venom Unknown 04/11/2023 REVIEW OF SYSTEMS Review of Systems Constitutional: Positive for weight loss (minimal, weight relatively stable). Negative for malaise/fatigue. Respiratory: Negative for cough and shortness of breath. Cardiovascular: Negative for leg swelling. Gastrointestinal: Negative for constipation, diarrhea and nausea. Physical Exam Physical Exam PAIN ASSESSMENT: Aleksey complains of pain related to malignancy, improved with Oxycodone 5 mg/5mL enteral route every 6 hours DATA: Lab Results Component Value Date WBC 4.92 05/12/2023 RBC 4.12 (L) 05/12/2023 HEMOGLOBIN 11.2 (L) 05/12/2023 HEMATOCRIT 35.6 (L) 05/12/2023 MCV 86.4 05/12/2023 MCH 27.2 05/12/2023 MCHC 31.5 05/12/2023 PLATELETCNT 371 05/12/2023 RDW 13.9 05/12/2023 LYMPHOCYTES 20.7 05/12/2023 RELEOS 3.9 05/12/2023 RELBAS 0.6 05/12/2023 ANC 2.97 05/12/2023 MONOCYTES 0.71 05/12/2023 EOSINOPHILS 0.19 05/12/2023 BASOPHILS 0.03 05/12/2023 Lab Results Component Value Date SODIUM 132 (L) 05/12/2023 POTASSIUM 4.1 05/12/2023 CHLORIDE 95 (L) 05/12/2023 ANIONGAP 10.1 05/12/2023 GLUCOSE 106 (H) 05/12/2023 BUN 37 (H) 05/12/2023 CREATININE 0.72 05/12/2023 TOTALPROTEIN 7.9 05/12/2023 ALBUMIN 3.6 05/12/2023 CALCIUM 9.4 05/12/2023 SGPTALT 47 05/12/2023 ALKALINEPHO 84 05/12/2023 DIAGNOSTIC IMAGING STUDIES: 03/30/[address] OSH: IMPRESSION: 1. Large, hypermetabolic, ulcerative and infiltrative mass centered in the left oropharynx with involvement of the left nasopharynx, left environmental studies faculty member, submandibular, and sublingual spaces, left tonsillar fossa, [...] squamous cell carcinoma involving the left parapharyngeal, environmental studies faculty member, submandibular, and sublingual spaces with osseous involvement of the left mandible. Multiple branches of the left external carotid artery including the ascending pharyngeal and lingual branches course through this mass without evidence of active arterial extravasation. Assessment: 1. 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 Enteral feeding via PEG tube 3. Current smoker 4. Oropharyngeal dysphagia secondary to malignancy 5. Anemia secondary to hemoptysis Plan: 2. Continue treatment with concurrent cisplatin 100 mg/m2 IV every 21 days for 3 cycles while receiving radiation therapy. He will continue dexamethasone 4 mg p.o. b.i.d and olanzapine 5 mg p.o. nightly for 3 days after chemotherapy. 3. Continue daily radiation therapy through Dr. Roland Patel for concurrent treatment. 4. Continue Ondansetron 8 mg every 8 hours as needed for treatment related nausea. He can use Prochlorperazine 10 mg every 6 hours alternating for break through symptoms. 5. Continue Doxycycline 100 mg BID to prevent infection while on systemic chemotherapy. 6. Continue enteral feedings at 4 cartons per day as prescribed by registered nurse practitioner to maintainweight and prevent malnutrition. 7. Continue Oxycodone 5 mg/5mL enteral route every 6 hours as needed for moderate to severe pain. Provided patient with refill of this medication today to ease discomfort related to malignancy and treatment. Use OTC stool softener if constipation develops secondary. 8. Continue Lisinopril 10 mg daily for hypertension. Will monitor patient closely for need to continue this intervention or if additional dose needed. 9. Continue Lexapro 20 mg daily for mood and anxiety. 10. Continue supplemental O2 as needed to maintain O2 levels while active. Patient was encouraged to use pulse-ox 11. Discussed discontinuing cigarette tobacco use to improve breathing and improve treatment efficacy. Stressed importance of not smoking near supplemental O2 or while using supplemental O2. Patient was offered smoking cessation aides and information regarding [facility] facilitated smoking cessation classes. He will contact office if additional support needed. Follow up in 2-3 weeks to monitor treatment related side effects and performance status The patient was given an opportunity to ask questions, and all questions answered to patient's satisfaction. Patient verbalizes understanding of the plan as outlined above. The documentation for this visit was completed by Shelly Foster acting as a scribe for Antwon Haro MD. 05/17/2023, 1:27 PM CDT * Antwon Mirza MD - 05/17/2023 2:20 PM CDT Outpatient Hem/Onc Progress Note PROGRESS NOTE Aleksey Godfrey is a 63 y.o. 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 He started concurrent treatment with Cetuximab 600 mg infusion weekly on 05/12/23. He started radiation therapy same day. Patient continues to do central feeding with Osmolite 1.5 calorie formula at 5 cartons per day. Aleksey recites attempting to get in 5 cartons daily, only able to ingest 4 cartons yesterday. He reports ingesting 2 cartons this morning before presenting for treatment. Aleksey continues to drink liquids by mouth without cough or choking. He recites tolerating C1 well without rash eruption after treatment. He denies any headache, dizziness, change in bowels, or nausea. Patient denies any oral irritation. He denies any sore throat. Patient reports using OTC Ibuprofen as needed to improve discomfort related to sinus headache. Aleksey recites running out of available Oxycodone 5 mg/5mL, stating he was taking every 6 hours for Aleksey continues to use cigarettes at less than 1 pack per day. 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 Aleksey recalls Niece voiced concerns roughly 12 months ago, as she was only seeing him few times per year. Patient recalls experiencing syncopal event prior to presenting to [facility] via [facility]. He recites prior to LOC he was experiencing hemoptysis with increase in blood expressed withcough as episode continued. He was transferred from [facility] to [facility] after CT neck showed large mass arising [...] for malignancy such as SCC involvingL parapharyngeal, environmental studies faculty member, submandibular, sublingual spaces with ossesous involvement of [...] time. Aleksey attempted to establish care with [facility], unfortunately out of network with his insurance. -- Patient started XRT on 05/13/[address] simulation on 05/12/23. --05/12/23 patient started Cetuximab 600 mg infusion planned for weekly treatments concurrent with radiation therapy. Initial plan was to give him Q 3 weekly cisplatin however due to decline in performance status, poor intake, continued weight loss, decision made to switch to cetuximab weekly Reviewed patients past medical, surgical, social, and family history. Outpatient Medications Marked as Taking for the 05/17/23 encounter (Office Visit) with Antwon Mirza MD Medication Sig Dispense Refill oxyCODONE (ROXICODONE) 5 MG/5ML Solution Take 5 mL by mouth every 6 hours as needed for Severe pain. 450 mL 0 Allergies as of 05/17/2023 - Reviewed 05/16/2023 Allergen Reaction Noted Bee venom Unknown 04/11/2023 REVIEW OF SYSTEMS Review of Systems Constitutional: Positive for weight loss (minimal, weight relatively stable). Negative for malaise/fatigue. Respiratory: Negative for cough and shortness of breath. Cardiovascular: Negative for leg swelling. Gastrointestinal: Negative for constipation, diarrhea and nausea. Physical Exam Physical Exam PAIN ASSESSMENT: Aleksey complains of pain related to malignancy, improved with Oxycodone 5 mg/5mL enteral route every 6 hours DATA: Lab Results Component Value Date WBC 4.92 05/12/2023 RBC 4.12 (L) 05/12/2023 HEMOGLOBIN 11.2 (L) 05/12/2023 HEMATOCRIT 35.6 (L) 05/12/2023 MCV 86.4 05/12/2023 MCH 27.2 05/12/2023 MCHC 31.5 05/12/2023 PLATELETCNT 371 05/12/2023 RDW 13.9 05/12/2023 LYMPHOCYTES 20.7 05/12/2023 RELEOS 3.9 05/12/2023 RELBAS 0.6 05/12/2023 ANC 2.97 05/12/2023 MONOCYTES 0.71 05/12/2023 EOSINOPHILS 0.19 05/12/2023 BASOPHILS 0.03 05/12/2023 Lab Results Component Value Date SODIUM 132 (L) 05/12/2023 POTASSIUM 4.1 05/12/2023 CHLORIDE 95 (L) 05/12/2023 ANIONGAP 10.1 05/12/2023 GLUCOSE 106 (H) 05/12/2023 BUN 37 (H) 05/12/2023 CREATININE 0.72 05/12/2023 TOTALPROTEIN 7.9 05/12/2023 ALBUMIN 3.6 05/12/2023 CALCIUM 9.4 05/12/2023 SGPTALT 47 05/12/2023 ALKALINEPHO 84 05/12/2023 DIAGNOSTIC IMAGING STUDIES: 03/30/[address] OSH: IMPRESSION: 1. Large, hypermetabolic, ulcerative and infiltrative mass centered in the left oropharynx with involvement of the left nasopharynx, left environmental studies faculty member, submandibular, and sublingual spaces, left tonsillar fossa, [...] squamous cell carcinoma involving the left parapharyngeal, environmental studies faculty member, submandibular, and sublingual spaces with osseous involvement of the left mandible. Multiple branches of the left external carotid artery including the ascending pharyngeal and lingual branches course through this mass without evidence of active arterial extravasation. Assessment: 1. 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 Enteral feeding via PEG tube 3. Current smoker 4. Oropharyngeal dysphagia secondary to malignancy 5. Anemia secondary to hemoptysis Plan: 1. Reviewed patient's recent clinical symptoms and side effects of current treatment. Able to tolerate current chemoradiation fairly well with concurrent weekly cetuximab. Due to his decrease in performance status, continued weight loss and compliance issues, decision made to treat with cetuximab instead of cisplatin given significant toxicities expected with the latter. 2. Continue treatment with concurrent weekly cetuximab 250 mg per m2 for 7 weeks. Continue doxycycline 100 mg p.o. b.i.d.. Use Zofran and Compazine as needed. 3. Continue daily radiation therapy through Dr. Roland Patel for concurrent treatment. 4. Continue Ondansetron 8 mg every 8 hours as needed for treatment related nausea. He can use Prochlorperazine 10 mg every 6 hours alternating for break through symptoms. 5. Continue Doxycycline 100 mg BID to prevent infection while on systemic chemotherapy. 6. Continue enteral feedings at 4 cartons per day as prescribed by registered nurse practitioner to maintainweight and prevent malnutrition. 7. Continue Oxycodone 5 mg/5mL- 5 mg dose enteral route every 6 hours as needed for moderate to severe pain. Provided patient with refill of this medication today to ease discomfort related to malignancy and treatment. Use OTC stool softener if constipation develops secondary. 8. Continue Lisinopril 10 mg daily for hypertension. Will monitor patient closely for need to continue this intervention or if additional dose needed. 9. Continue Lexapro 20 mg daily for mood and anxiety. 10. Continue supplemental O2 as needed to maintain O2 levels while active. Patient was encouraged to use pulse-ox 11. Discussed discontinuing cigarette tobacco use to improve breathing and improve treatment efficacy. Stressed importance of not smoking near supplemental O2 or while using supplemental O2. Patient was offered smoking cessation aides and information regarding [facility] facilitated smoking cessation classes. He will contact office if additional support needed. Follow up in 2-3 weeks to monitor treatment related side effects and performance status The patient was given an opportunity to ask questions, and all questions answered to patient's satisfaction. Patient verbalizes understanding of the plan as outlined above. The documentation for this visit was completed by Shelly Foster acting as a scribe for Antwon Haro MD. 05/17/2023, 2:20 PM CDT The documentation recorded by the scribe was completed while in the exam room with me and the patient. The documentation accurately reflects the service I personally performed and the decisions made by me. I have confirmed and edited the documentation as necessary. Antwon Mirza MD 05/17/2023, 2:22 PM CDT documented in this encounter Miscellaneous Notes * Interdisciplinary - Theresa Monroy - 05/17/2023 2:20 PM CDT The patient reports weight loss, and fatigue. Pain score is 0. * Interdisciplinary - Theresa Monroy - 05/17/2023 2:20 PM CDT AVS printed. Patient will follow up in 3 weeks with treatment this and repeat weekly. documented in this encounter Plan of Treatment Not on file documented as of this encounter Visit Diagnoses Diagnosis Oropharyngeal cancer (HCC)- Primary Malignant neoplasm of oropharynx, unspecified site PEG (percutaneous endoscopic gastrostomy) status (HCC) Dysphagia, oropharyngeal Dysphagia, oropharyngeal phase documented in this encounter Care Teams Business Operations Specialist Relationship Specialty Start Date End Date Jorge Espinosa PA [address] [place] [address] PCP - General Physician Carburizing Furnace Operator 04/11/23 Antwon Mirza MD [address] [place] [address] Consulting Physician Medical Oncology 05/04/23 Roland Patel MD [address] [place] [address] Consulting Physician Radiation Oncology 05/04/23 documented as of this encounter
--- OUTSIDE RECORDS SUMMARY | 2024-02-15 11:31 | XMS_ITS | Encounter Summary ---
Author Organization [facility] Address [address] [place] [address] Phone Care Team Providers Care Pharmacist'S Aide Name Role Phone Jorge Espinosa Primary Care Provider [phone] Encounter Details Date Type Department Care Team (Late st Contact Info) Description 05/03/2023 Telephone [facility] Oncology Services [address] [place] [address] Lisa Burden, RN [place] Social History Tobacco Use Types Packs/Day Years Used Date Smoking Tobacco: Every Day Cigarettes 0.5 50.9 Started: 1974 Smokeless Tobacco: Never Alcohol Use Standard Drinks/Week Comments Yes 0 (1 standard drink = 0.6 oz pure alcohol) Occasionally, never a regular drinker Sex and Gender Information Value Date Recorded Sex Assigned at Not on file 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 Later in the day I spoke to his daughter Caroline. She is unsure if he didn't hear when they arrived but feels the ride went to the wrong address. As she already had a ride facilitated for tomorrow I informed him we would work him into the schedule for the SIM however the Chemo would not start tomorrow. S he will make him aware that he may not be seen immediately when he arrives as we are working him in around previously scheduled appointments. His ride is arranged to pick him up at his address which she confirmed at 0745 and to return here to the Cancer Center at 11am for his ride home. I did confirm with Caroline the Cancer Center address as she incorrectly had it as the hospital address. I spent time talking to Caroline reinforcing that the rides will not wait if the patient is not ready for pickup and to decrease confusion at this point I would have a print out of appointments for 3 appointments for next week for the start of radiation treatment, labs and initial Chemo. We will schedule additional appointments next week at his Chemo appointment. She verbalized understanding and will explain the above to Aleksey. Dr. Gonsales, Katerin Lewis navigator, Yenifer Lamb RNpoker dealer and radiation therapists were all informed of the above. The copy of appointments was reviewed with Meka JONES and she will give this to Aleksey tomorrow. I did not proceed with contacting [facility] at this time. documented in this encounter Plan of Treatment Not on file documented as of this encounter Visit Diagnoses Not on filedocumented in this encounter Care Teams Pharmacist'S Aide Relationship Specialty Start Date End Date Jorge Espinosa PA [address] [place] [address] PCP - General Physician Ekg Manager 04/11/23 documented as of this encounter
--- OUTSIDE RECORDS SUMMARY | 2024-02-15 11:31 | XMS_ITS | Encounter Summary ---
Author Organization [facility] Care Team Providers Care Housekeeping Cleaner Name Role Phone Jorge Espinosa Primary Care Provider [phone] Antwon Mirza MD Unavailable [phone] Roland Patel MD Unavailable [phone] Encounter Details Date Type Department Care Team (Latest Contact Info) Description 05/19/2023 Travel Social History Tobacco Use Types Packs/Day Years Used Date Smoking Tobacco: Every Day Cigarettes 0.5 50.9 Started: 1974 Smokeless Tobacco: Never Alcohol Use Standard Drinks/Week Comments Yes 0 (1 standard drink = 0.6 oz pure alcohol) Occasionally, never a regular drinker Sex and Gender Information Value Date Recorded Sex Assigned at Not on file Legal Sex Male 3:34 PM [employer] Gender Identity Not on file Sexual Orientation Not on file documented as of this encounter Plan of Treatment Not on file documented as of this encounter Visit Diagnoses Not on filedocumented in this encounter Care Teams Housekeeping Cleaner Relationship Specialty Start Date End Date Jorge Espinosa PA [address] [place] [address] PCP - General Physician Director Of Medical Review 04/11/23 Antwon Mirza MD [address] [place] [address] Consulting Physician Medical Oncology 05/04/23 Roland Patel MD [address] [place] [address] Consulting Physician Radiation Oncology 05/04/23 documented as of this encounter
--- OUTSIDE RECORDS SUMMARY | 2024-02-15 11:31 | XMS_ITS | Encounter Summary ---
Author Organization [facility] Address [address] [place] [address] Phone Care Team Providers Care Adobe Block Maker Name Role Phone Jorge Espinosa Primary Care Provider [phone] Reason for Referral * Medical Care (Routine) - Closed Specialty Diagnoses / Procedures Referred By Contac t Referred To Contact Oncology Diagnoses Oropharyngeal cancer (HCC) Procedures OFFICE/OP NEW LVL 3 LOW MDM/30-44 MIN OFFICE/OP EST LVL 3 LOW MDM/20-29 MIN Antwon Mirza MD [address] [place] [address] Phone: tel: fax: [facility] [address] [place] [address] Phone: tel: fax: Referral ID Status Reason Start Date Expiration Date Visits Re quested Visits Authorized [id number] Closed 04/12/2023 1 11 Scheduling Instructions Aleksey is being referred for 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 See below for Aleksey's current medications, allergies and problem list. Please contact patient for scheduling questions or concerns. CURRENT MEDS: Current Outpatient Medications: escitalopram (LEXAPRO) 5 MG/5ML Solution, Take 20 mg by mouth daily., Disp: , Rfl: Ferrous Sulfate (IRON PO), 15 mL by Enteral route., Disp: , Rfl: lidocaine (LIDODERM) 5 % Patch, 1 Patch by Transdermal route every 12 hours., Disp: , Rfl: lisinopril (PRINIVIL, ZESTRIL) 10 MG Tablet, 10 mg by Enteral route daily., Disp: , Rfl: nortriptyline (PAMELOR) 10 MG Capsule, nightly., Disp: , Rfl: ondansetron (ZOFRAN-ODT) 4 MG TABLET DISPERSIBLE, Take 4 mg by mouth every 8 hours as needed., Disp: , Rfl: oxyCODONE (ROXICODONE) 5 MG/5ML Solution, 5 mg by Enteral route as needed., Disp: , Rfl: No current facility-administered medications for this visit. ALLERGIES: -- Bee Venom -- Unknown PROBLEM LIST: Patient Active Problem List: Current smoker Oropharyngeal cancer (HCC) Oropharyngeal dysphagia Status post insertion of percutaneous endoscopic gastrostomy (PEG) tube (HCC) SPLITTER Reason for Visit * Reason Comments New Patient * Consult, Test & Initiate Treatment (Routine) - Closed Specialty Diagnoses / Procedures Referred By Contbisi t Referred To Contact Oncology Diagnoses Squamous cell carcinoma of oropharynx (HCC) Logan Alvarado MD [address] [facility] [place] [address] Phone: tel: fax: Antwon Mirza MD [address] [place] [address] Phone: tel: fax: Referral ID Status Reason Start Date Expiration Date Visits Re quested Visits Authorized [id number] Closed 1 1 Encounter Details Date Type Department Care Team (Late st Contact Info) Description 04/11/2023 2:40 PM HIDE SPLITTER Office Visit [facility] [address] [place] [address] Antwon Mirza MD [address] [place] [address] Current smoker (Primary Dx); Oropharyngeal cancer (HCC); Oropharyngeal dysphagia; Status post insertion of percutaneous endoscopic gastrostomy (PEG) tube (HCC) Discharge Disposition: Discharged to home or Selfcare Social History Tobacco Use Types Packs/Day Years Used Date Smoking Tobacco: Every Day Cigarettes 1 51 Started: 1974 Smokeless Tobacco: Never Alcohol Use Standard Drinks/Week Comments Yes 0 (1 standard drink = 0.6 oz pur e alcohol) occasionally Sex and Gender Information Value Date Recorded Sex Assigned at Not on file Legal Sex Male 3:34 PM HIDE SPLITTER Gender Identity Not on file Sexual Orientation Not on file documented as of this encounter Last Filed Vital Signs Vital Sign Reading Time Taken Comments Blood Pressure 148/78 04/11/2023 3:55 PM HIDE SPLITTER Pulse 81 04/11/2023 3:55 PM HIDE SPLITTER Temperature 36.8 ??C (98.3 ??F) 04/11/2023 3:55 PM CS T Respiratory Rate 16 04/11/2023 3:55 PM HIDE SPLITTER Oxygen Saturation 97% 04/11/2023 3:55 PM HIDE SPLITTER Inhaled Oxygen Concentration - - Weight 48.1 kg (106 lb 1.6 oz) 04/11/2023 3:55 P M HIDE SPLITTER Height 165.1 cm (5' 5 ) 04/11/2023 3:55 PM HIDE SPLITTER Body Mass Index 17.66 04/11/2023 3:55 PM HIDE SPLITTER documented in this encounter Progress Notes * Shelly Foster - 04/11/2023 2:40 PM CST OUTPATIENT HEMATOLOGY-ONCOLOGY CONSULT/H&P DATE OF CONSULT: 04/11/2023 REFERRING PHYSICIAN: Logan Alvarado MD REASON FOR CONSULTATION: Squamous Cell Carcinoma of left oropharynx Present Illness Aleksey Godfrey is a very pleasant 63 y.o. 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 Aleksey recites he recently relocated to the [facility] from [place]. He recites growing up in [place] prior to moving [place] to [place]. Aleksey recites moving back to [facility], following with Junito Ibanez for primary care management. He recites this started roughly 4-5 months ago when he started experiencing progressively worsening dysphagia. Patient reports losing approximately 40 lbs prior to presenting to ED for evaluation. Aleksey recalls Niece voiced concerns [id number] months ago, as she was only seeing him few times per year. Patient recalls experiencing syncopalevent prior to presenting to [facility] via [facility]. He recites prior to LOC he was experiencinghemoptysis with increase in blood expressed with cough as episode continued. He was transferred from [facility] to [facility] after CT neck showed large mass arising from base of tongue, floor of mouth, GTS, lingual mandible. Patient returned home that night with plans for ENT evaluation outpatient. Prior to evaluation by ENT patient returned to hospital on 03/23/23 with hemoptysis, losing roughly1 pint of blood. CTA Neck identified large ulcerative L oropharyngeal neck mass 7.2x4.3x3.3cm highly suspicious for malignancy such as SCC involving L parapharyngeal, smoke and flame specialist, submandibular, sublingual spaces with ossesous involvement of L mandible; no e/o active extravasation. CXR with L hemidiaphragm, mild L basilar reticular nodular opacities c/f atelectasis vs bronchiolitis related to aspiration. ENT consulted. Patient underwent biopsy with NGT placement on 03/25. 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 Patient underwent PET-CT on 03/30 which showed known L oropharynx mass, probable metastatic left level IIa lymph node and mildly hypermetabolic right supraclavicular lymph node suspicious for anum metastasis, and aspiration pneumonia in the bilateral lung bases with likely reactive mediastinal and hilar lymph nodes. Case was discussed at ENT tumor board, who ultimately decided on chemoradiation without surgical intervention at this time.Aleksey attempted to establish care with [facility] [place], unfortunately out of network with hisinsurance. Aleksey is currently using PEG tube to maintain weight with Osmolite 1.5 calorie formula, 1 carton per day. He denies using 4 cartons per day as prescribed by sales agent [employer] while inpatient. He re cites using large syringe to push feedings vs haven feeding pump. Aleksey recites using Oxycodone 5 mg/5ml solution, taking sparingly due to concerns for addictive nature. Patient recites currently doing all medications by PEG tube. Aleksey recites prior to this diagnosis he was treated for hypertension. Aleksey reports decreasing cigarette consumption from 1 pack per day to 1/2 pack per day. He recites use of nicotine patch to ease cravings while decreasing use. Aleksey reports smoking 1 pack per day for roughly 50 years, decreasing to 1/2 pack per day roughly 7 months ago. Patient denies any history of heavy alcohol consumption. He recites history of social use, denying regular consumption. PAST MEDICAL AND SURGICAL HISTORY: History reviewed. No pertinent past medical history. No past surgical history on file. SOCIAL AND FAMILY HISTORY: Reviewed in chart Aleksey reports decreasing cigarette consumption from 1 pack per day to 1/2 pack per day. He recites use of nicotine patch to ease cravings while decreasing use. Aleksey reports smoking 1 pack per day for roughly 50 years, decreasing to 1/2 pack per day roughly 7 months ago. Patient denies any history of heavy alcohol consumption. He recites history of social use, denying regular consumption. Aleksey reports mother diagnosed with cancer of unknown type, treated with remission achieved. He recites sister diagnosed with unknown cancer in her mid to late 50s. Patient denies any other family history of hematological or oncological disorders. 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 Genetics Risk Assessment Discussed/N/A Allergies as of 04/11/2023 (No Known Allergies) REVIEW OF SYSTEMS Review of Systems Constitutional: Positive for weight loss. HENT: Negative for ear pain, hearing loss, sore throat and tinnitus. PHYSICAL EXAM Physical Exam HENT: Head: Comments: Right sided deviation of the mouth appreciated Mild edema in the left cheek appreciated Mouth/Throat: Comments: Deviation of tongue to right side Unable to visualize mass during exam Lymphadenopathy: Comments: Negative for prominent lymphadenopathy PAIN ASSESSMENT: no verbal pain complaints today. DATA: No results found for: WBC , RBC , HEMOGLOBIN , HEMATOCRIT , MCV , MCH , MCHC , PLATELETCNT , RDW , DIFF , LYMPHOCYTES , RELEOS , RELBAS , ANC , MONOCYTES , EOSINOPHILS , BASOPHILS No results found for: SODIUM , POTASSIUM , CHLORIDE , ANIONGAP , GLUCOSE , BUN , CREATININE , TOTALPROTEIN , ALBUMIN , CALCIUM , AST , SGPTALT , ALKALINEPHO DIAGNOSTIC IMAGING STUDIES: 03/30/[address] OSH: IMPRESSION: 1. Large, hypermetabolic, ulcerative and infiltrative mass centered in the left oropharynx with involvement of the left nasopharynx, left smoke and flame specialist, submandibular, and sublingual spaces, left tonsillar fossa, [...] squamous cell carcinoma involving the left parapharyngeal, smoke and flame specialist, submandibular, and sublingual spaces with osseous involvement of the left mandible. Multiple branches of the left external carotid artery including the ascending pharyngeal and lingual branches course through this mass without evidence of active arterial extravasation. 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 Entrenal feeding via PEG tube 3. Current smoker 4. Oral dysphagia secondary to malignancy 5. Anemia secondary to hemoptysis Plan: 2. Referral to Dr. Roland Patel for evaluation and consideration for concurrent chemoradiation therapy for treatment of SCC to the head/neck. 3. START systemic therapy with Cisplatin given every 3 weeks concurrently with radiation therapy. Discussed with patient common side effects of systemic chemotherapy agents including but not limited to nausea, hair loss, diarrhea, increased risk of infection, fatigue, risk of allergic reaction/anaphylaxis etc. Discussed chemotherapy drugs, duration, number of cycles, side effects of the chemotherapy regimen, including Hematological, Cardiovascular, Neurological, Gastrointestinal, Dermatological, Musculoskeletal, Metabolism and nutritional side effects. Risk of infection, possible hospital admission, need for transfusion of RBC or platelets, bleeding risk, second malignancies, extravasation injury were also discussed. After careful consideration of risk and benefits of treatment, pt has agreed to proceed with chemo treatment Discussed pre/post treatment medication to prevent intolerable side effects.Will be sent once treatment start date scheduled. 4. INCREASE PEG feeding from ONE carton to the prescribed FOUR cartons per day of Osmolite 1.5 calorie formula. Patient instructed to contact the office if any issues arise. Will maintain this order for patient to receive tube feeding to prevent unintentional weight loss. Continue to flush PEG tubebefore and after feedings to maintain line. 5. Continue Oxycodone 5 mg/5mL enteral route every 6 hours as needed for moderate to severe pain. 6. Continue Lisinopril 10 mg daily for hypertension. Will monitor patient closely for need to continue this intervention or if additional dose needed. 7. Continue Lexapro 20 mg daily for mood and anxiety. 8. Continue supplemental O2 as needed to maintain O2 levels while active. Patient was encouraged touse pulse-ox 9. Discussed discontinuing cigarette tobacco use to improve breathing and improve treatment efficacy. Stressed importance of not smoking near supplemental O2 or while using supplemental O2. Patient was offered smoking cessation aides and information regarding [facility] facilitated smoking cessation classes. He will contact office if additional support needed. Follow up after starting treatment The patient was given an opportunity to ask questions, and all questions answered to patient's satisfaction. Patient verbalizes understanding of the plan as outlined above. The documentation for this visit was completed by Shelly Foster acting as a scribe for Antwon Haro MD. 04/11/2023, 3:52 PM HIDE SPLITTER SPLITTER * Antwon Mirza MD - 04/11/2023 2:40 PM CST OUTPATIENT HEMATOLOGY-ONCOLOGY CONSULT/H&P DATE OF CONSULT:04/11/23 REFERRING PHYSICIAN: Logan Alvarado MD REASON FOR CONSULTATION: Squamous Cell Carcinoma of left oropharynx , p16 positive Present Illness Aleksey Godfrey is a very pleasant 63 y.o. 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 Aleksey recites he recently relocated to the [facility] from [place]. He recites growing up in [place] prior to moving [place] to [place]. Aleksey recites moving back to [facility], following with Junito Ibanez for primary care management. He recites symptoms of dysphagia startedroughly 4-5 months ago when he started experiencing progressively worsening dysphagia. Patient reports losing approximately 40 lbs prior to presenting to ED at [facility] for evaluation. Hugo Phelps voiced concerns roughly 12 months ago, as she was only seeing him few times per year. Patient recalls experiencing syncopal event prior to presenting to [facility] via [facility]. He recites prior to LOC he was experiencing hemoptysis with increase in blood expressed with cough as episode continued. He was transferred from [facility] to [facility] after CT neck showed large mass [...] highly suspicious for malignancy such as SCC involving L parapharyngeal, smoke and flame specialist, submandibular, sublingual spaces with ossesous involvement of L mandible; no e/o active extravasation. CXR with L hemidiaphragm, mild L basilar reticular nodular opacities c/f atelectasis vs bronchiolitis related to aspiration. ENT consulted. Patient underwent biopsy with NGT placement on 03/25. 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 Patient underwent PET-CT on 03/30 which showed known L oropharynx mass, probable metastatic left level IIa lymph node and mildly hypermetabolic right supraclavicular lymph node suspicious for anum metastasis, and aspiration pneumonia in the bilateral lung bases with likely reactive mediastinal and hilar lymph nodes. Case was discussed at ENT tumor board, who ultimately decided on chemoradiation without surgical intervention at this time. Aleksey attempted to establish care with [facility] [place], unfortunately out of network with his insurance. Aleksey is currently using PEG tube to maintain weight with Osmolite 1.5 calorie formula, 1 carton per day. He denies using 4 cartons per day as prescribed by sales agent [employer] while inpatient. He recites using large syringe to push feedings vs haven feeding pump. Aleksey recites using Oxycodone 5 mg/5ml solution, taking sparingly due to concerns for addictive nature. Patient recites currently doing all medications by PEG tube. Aleksey recites prior to this diagnosis he was treated for hypertension. Aleksey reports decreasing cigarette consumption from 1 pack per day to 1/2 pack per day. He recites use of nicotine patch to ease cravings while decreasing use. Aleksey reports smoking 1 pack per day for roughly 50 years, decreasing to 1/2 pack per day roughly 7 months ago. Patient denies any history of heavy alcohol consumption. He recites history of social use, denying regular consumption. PAST MEDICAL AND SURGICAL HISTORY: Past Medical History Positives Diagnosis Date Carcinoma (HCC) Hypertension No past surgical history on file. SOCIAL AND FAMILY HISTORY: Reviewed in chart Aleksey reports decreasing cigarette consumption from 1 pack per day to 1/2 pack per day. He recites use of nicotine patch to ease cravings while decreasing use. Aleksey reports smoking 1 pack per day for roughly 50 years, decreasing to 1/2 pack per day roughly 7 months ago. Patient denies any history of heavy alcohol consumption. He recites history of social use, denying regular consumption. Aleksey reports mother diagnosed with cancer of unknown type, treated with remission achieved. He recites sister diagnosed with unknown cancer in her mid to late 50s. Patient denies any other family history of hematological or oncological disorders. 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 Genetics Risk Assessment Discussed/N/A Allergies as of 04/11/2023 - Reviewed 04/11/2023 Allergen Reaction Noted Bee venom Unknown 04/11/2023 REVIEW OF SYSTEMS Review of Systems Constitutional: Positive for weight loss. HENT: Negative for ear pain, hearing loss, sore throat and tinnitus. PHYSICAL EXAM Physical Exam HENT: Head: Comments: Right sided deviation of the mouth appreciated Mild edema in the left cheek appreciated Mouth/Throat: Comments: Deviation of tongue to right side Unable to visualize mass during exam Lymphadenopathy: Comments: Negative for prominent lymphadenopathy PAIN ASSESSMENT: no verbal pain complaints today. DATA: No results found for: WBC , RBC , HEMOGLOBIN , HEMATOCRIT , MCV , MCH , MCHC , PLATELETCNT , RDW , DIFF , LYMPHOCYTES , RELEOS , RELBAS , ANC , MONOCYTES , EOSINOPHILS , BASOPHILS No results found for: SODIUM , POTASSIUM , CHLORIDE , ANIONGAP , GLUCOSE , BUN , CREATININE , TOTALPROTEIN , ALBUMIN , CALCIUM , AST , SGPTALT , ALKALINEPHO DIAGNOSTIC IMAGING STUDIES: 03/30/[address] OSH: IMPRESSION: 1. Large, hypermetabolic, ulcerative and infiltrative mass centered in the left oropharynx with involvement of the left nasopharynx, left smoke and flame specialist, submandibular, and sublingual spaces, left tonsillar fossa, [...] squamous cell carcinoma involving the left parapharyngeal, smoke and flame specialist, submandibular, and sublingual spaces with osseous involvement [...] Anemia secondary to hemoptysis Plan: 1. Reviewed above clinical data including clinical symptoms, recent hospital admission, several tests including imaging, biopsy, procedure and pathology results with patient in detail. he is aware oflocally advanced oropharyngeal cancer with cervical LN involvement, but HPV positivity is a good prognostic factor. explained that HPV-associated oropharyngeal cancer usually occurs in relatively younger patients, with the median age of diagnosis in the 50s. HPV association has a markedly positive impact on prognosis.patients with HPV negative stage III or IV disease have 5 yr survivals in the 30% to 60%, HPV- associated head and neck cancer is noted to to have 5-year survival rates that can exceed 85%. Several clinical trials are looking at de-intensifying therapy for HPV positive disease however outside of clinical trial, these patients are treated similar to HPV negative patient. Patient is not interested in clinical trial. 2. Discussed and reviewed NCCN guidelines for cervical LN positive head and neck cancer- surgery vsprimary chemoRT. He understands the primary surgical therapy has not been recommended due to extensive disease in his oropharynx with invasion into the local structures. so will be treating patient with chemoRT. Standard chemo with cisplatin 100 mg/m2 IV every 21 days for 3 cycles. Reviewed common and uncommon side effects of cisplatin with RT. Patient is agreeable to proceed. He has good veins so hold off on obtaining a port or a PICC at this time. 3. Referral to Dr. Roland Patel for evaluation and consideration for concurrent chemoradiation therapy for treatment of SCC to the head/neck. 4. We discussed chemotherapy with Cisplatin given every 3 weeks concurrently with radiation therapy. Discussed with patient common side effects of systemic chemotherapy agents including but not limited to nausea, hair loss, diarrhea, increased risk of infection, fatigue, risk of allergic reaction/anaphylaxis etc. Discussed chemotherapy drugs, duration, number of cycles, side effects of the chemotherapy regimen, including Hematological, Cardiovascular, Neurological, Gastrointestinal, Dermatological, Musculoskeletal, Metabolism and nutritional side effects. Risk of infection, possible hospital admission, need for transfusion of RBC or platelets, bleeding risk, second malignancies, extravasation injury were also discussed. After careful consideration of risk and benefits of treatment, pt hasagreed to proceed with chemo treatment. He will be given IV premeds including Emend, Zofran, dex prior to chemotherapy and he will be taking dexamethasone 4 mg p.o. b.i.d and olanzapine 5 mg p.o. nightly for 3 days after chemotherapy. He can use Zofran p.r.n..Discussed pre/post treatment medicationto prevent intolerable side effects.Will be sent once treatment start date scheduled. 4. INCREASE PEG feeding from ONE carton to the prescribed FOUR cartons per day of Osmolite 1.5 calorie formula. Patient instructed to contact the office if any issues arise. Will maintain this order for patient to receive tube feeding to prevent unintentional weight loss. Continue to flush PEG tubebefore and after feedings to maintain line. 5. Continue Oxycodone 5 mg/5mL enteral route every 6 hours as needed for moderate to severe pain. 6. Continue Lisinopril 10 mg daily for hypertension. Will monitor patient closely for need to continue this intervention or if additional dose needed. 7. Continue Lexapro 20 mg daily for mood and anxiety. 8. Continue supplemental O2 as needed to maintain O2 levels while active. Patient was encouraged touse pulse-ox 9. Discussed discontinuing cigarette tobacco use to improve breathing and improve treatment efficacy. Stressed importance of not smoking near supplemental O2 or while using supplemental O2. Patient was offered smoking cessation aides and information regarding [facility] facilitated smoking cessation classes. He will contact office if additional support needed. He will be scheduled for weekly labs including CBC and CMP once he starts chemoradiation. IV fluidsas needed. The patient was given an opportunity to ask questions, and all questions answered to patient's satisfaction. Patient verbalizes understanding of the plan as outlined above. The documentation for this visit was completed by Shelly Foster acting as a scribe for Antwon Haro MD. 04/13/2023, 1:17 PM HIDE SPLITTER The documentation recorded by the scribe was completed while in the exam room with me and the patient. The documentation accurately reflects the service I personally performed and the decisions made by me. I have confirmed and edited the documentation as necessary. Antwon Mirza MD 04/13/2023, 1:21 PM HIDE SPLITTER SPLITTER documented in this encounter Miscellaneous Notes * Interdisciplinary - Ketty Dewitt MA - 04/11/2023 2:40 PM CST New pt consult for oropharynx cancer. No pain, today. Reviewed meds with pt and they were updated to the best of my ability--tjo SPLITTER * Interdisciplinary - Katerin Pride LPN - 04/11/2023 2:40 PM CST Met with patient. Introduced myself and my role. Patient recently diagnosed with SCC left oropharynx. Patient has already had biopsy and work up. Patient will need chemo and radiation. Referral to Dr. Patel. Instructed patient I will call him on 04/12/23 to schedule this appointment. Once he sees Dr. Patel then Dr. Mirza will have infusion nurses call to schedule chemo concurrent with radiation. New patient folder was given. All resources discussed. Denies needs at this time. Patient was given my contact information and asked to call me with any questions/concerns. SPLITTER documented in this encounter Plan of Treatment Scheduled Referrals Name Type Priority Associated Diagnoses Orde r Schedule RADIATION ONCOLOGY REFERRAL Outpatient Referral Routine Oropharyngeal cancer (HCC) Expected: 04/12/2023, Expires: 06/11/2023 documented as of this encounter Visit Diagnoses Diagnosis Current smoker- Primary Tobacco use disorder Oropharyngeal cancer (HCC) Malignant neoplasm of oropharynx, unspecified site Oropharyngeal dysphagia Dysphagia, oropharyngeal phase Status post insertion of percutaneous endoscopic gastrostomy (PEG) tube (HCC) documented in this encounter Care Teams Adobe Block Maker Relationship Specialty [place] [address] [place] [address] PCP - General Physician Pumper Gauger 04/11/23 documented as of this encounter
--- OUTSIDE RECORDS SUMMARY | 2024-02-15 11:31 | XMS_ITS | Encounter Summary ---
Author Organization [facility] Care Team Providers Care Digital Campaign Manager Name Role Phone Jorge Espinosa Primary Care Provider [phone] Antwon Mirza MD Unavailable [phone] Roland Patel MD Unavailable [phone] Encounter Details Date Type Department Care Team (Latest Contact Info) Description 05/24/2023 Travel Social History Tobacco Use Types Packs/Day Years Used Date Smoking Tobacco: Every Day Cigarettes 0.5 50.9 Started: 1974 Smokeless Tobacco: Never Alcohol Use Standard Drinks/Week Comments Yes 0 (1 standard drink = 0.6 oz pure alcohol) Occasionally, never a regular drinker Sex and Gender Information Value Date Recorded Sex Assigned at Not on file 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
--- OUTSIDE RECORDS SUMMARY | 2024-02-15 11:31 | XMS_ITS | Encounter Summary ---
Author Organization [employer] Care Team Providers Care Engraver Machine Name Role Phone Jorge Espinosa Primary Care Provider [phone] Antwon Mirza MD Unavailable [phone] Roland Patel MD Unavailable [phone] Encounter Details Date Type Department Care Team (Latest Contact Info) Description 05/31/2023 Travel Social History Tobacco Use Types Packs/Day Years Used Date Smoking Tobacco: Every Day Cigarettes 0.5 50.9 Started: 1974 Smokeless Tobacco: Never Alcohol Use Standard Drinks/Week Comments Yes 0 (1 standard drink = 0.6 oz pure alcohol) Occasionally, never a regular drinker Sex and Gender Information Value Date Recorded Sex Assigned at Not on file 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
--- OUTSIDE RECORDS SUMMARY | 2024-02-15 11:31 | XMS_ITS | Encounter Summary ---
Author Organization [facility] Address [address] [facility] [place] [address] Phone Care Team Providers Care Glass Technician/Installer Name Role Phone Jorge Espinosa Primary Care Provider [phone] Antwon Mirza MD Unavailable Roland Patel MD Unavailable [phone] Reason for Visit * Reason Comments Cancer Oropharyngeal squamo us cell carcinoma, p16+. 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 Gender Identity Not on file Sexual Orientation Not on file documented as of this encounter Last Filed Vital Signs Vital Sign Reading Time Taken Comments Blood Pressure 185/74 05/25/2023 1:11 PM CDT Pulse 60 05/25/2023 1:11 PM CDT Temperature 35.9 ??C (96.7 ??F) 05/25/2023 1:11 PM CD T Respiratory Rate 20 05/25/2023 1:11 PM CDT Oxygen Saturation 98% 05/25/2023 1:11 PM CDT Inhaled Oxygen Concentration - - Weight 44.6 kg (98 lb 6.4 oz) 05/25/2023 1:11 PM CDT Height 166.4 cm (5' 5.5 ) 05/25/2023 1:11 PM CDT Body Mass Index 16.13 05/25/2023 1:11 PM CDT documented in this encounter Progress Notes * Lisa Burden RN - 05/25/2023 1:30 PM CDT Patient here today for Radiation Treatment and visit with Dr. Patel. Patient also had labs drawnfor tomorrow's chemo. Cosigned by Roland Patel MD at 05/25/2023 1:30 PM CDT * Roland Patel MD - 05/25/2023 1:30 PM CDT [facility] RADIATION ONCOLOGY ON TREATMENT VISIT Patient Name: Aleksey Godfrey Encounter Date: 05/25/2023 Diagnosis: 1. Encounter for radiotherapy 2. Patient on combined chemotherapy and radiation Concurrent cetuximab. 3. Oropharyngeal cancer (HCC) 4. Dysphagia, oropharyngeal 5. PEG (percutaneous endoscopic gastrostomy) status (HCC) Site: Oropharynx and regional lymphatics Total Dose to Date: 1400 cGy of 7000 cGy Systemic Therapy: Concurrent weekly cetuximab with cycle 1 05/12/2023, cycle 2 05/19/2023. Patient Concerns/Complaints: Today was his 7th treatment and 2nd OTV. He had no complaints or concerns related to radiotherapy and denied any new discomfort with swallowing. He was seen by himself. Patient Weight: Reviewed. Wt Readings from Last 3 Encounters: 05/25/23 (!) 98 lb 6.4 oz (44.6 kg) 05/19/23 100 lb 4.8 oz (45.5 kg) 05/17/23 (!) 99 lb 4.8 oz (45 kg) Vitals: 05/25/23 1311 BP: 185/74 Pulse: 60 Resp: 20 Temp: 96.7 ??F (35.9 ??C) TempSrc: Temporal SpO2: 98% Weight: (!) 98 lb 6.4 oz (44.6 kg) Height: 5' 5.5 (1.664 m) Physical Examination: ECOG PS of a somewhat marginal 1, stable. He was in no distress and was sitting and breathing comfortably. No radiotherapy related changes of the head and neck. Oral cavity and oropharynx were without mucositis. No gross neurologic deficits. Imaging: CBCT was [...] radiotherapy and concurrent weekly cetuximab. Continue with feedings per G-tube as per dietary. By: Roland Patel MD 05/25/2023, 1:36 PM CDT Patient Care Team: Jorge Espinosa PA as PCP - General (Physician De Icer) Antwon Mirza MD as Consulting Physician (Medical [...] (HCC) documented in this encounter Care Teams Glass Technician/Installer Relationship Specialty Start Date End Date Jorge Espinosa PA [address] [place] [address] PCP - General Physician De Icer 04/11/23 Antwon Mirza MD [address] [place] [address] Consulting Physician Medical Oncology 05/04/23 Roland Patel MD [address] [place] [address] Consulting Physician Radiation Oncology 05/04/23 documented as of this encounter
--- OUTSIDE RECORDS SUMMARY | 2024-02-15 11:31 | XMS_ITS | Encounter Summary ---
Author Organization [facility] Address [address] [facility] [place] [address] Phone Care Team Providers Care Concrete Stone Finishing Supervisor Name Role Phone Jorge Espinosa Primary Care Provider [phone] Encounter Details Date Type Department Care Team (Late st Contact Info) Description 05/03/2023 Telephone [facility] On[facility] Services [address] [place] [id number] Roland Patel MD [address] [place], [place] [id number] Social History Tobacco Use Types Packs/Day Years Used Date Smoking Tobacco: Every Day Cigarettes 0.5 50.9 Started: 1974 Smokeless Tobacco: Never Alcohol Use Standard Drinks/Week Comments Yes 0 (1 standard drink = 0.6 oz pure alcohol) Occasionally, never a regular drinker Sex and Gender Information Value Date Recorded Sex Assigned at Not on file 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 Patel's request to find out why he was a no show today. Daughter states that the ride company states they showed up but the patient wasn't there. The patient states that the ride didn't show up. Caroline states she's very aggravated with the ride company. Spoke with Lisa Burden and she states she is working on rides and appointments so she will call Caroline right back. Caroline made aware and voiced understanding. documented in this encounter Plan of Treatment Not on file documented as of this encounter Visit Diagnoses Not on filedocumented in this encounter Care Teams Concrete Stone Finishing Supervisor Relationship Specialty Start Date End Date Jorge Espinosa PA [address] [place] [address] PCP - General Physician Chain Testing Machine Operator 04/11/23 documented as of this encounter
--- OUTSIDE RECORDS SUMMARY | 2024-02-15 11:31 | XMS_ITS | Encounter Summary ---
Author Organization [facility] Care Team Providers Care Gasket Former Name Role Phone Jorge Espinosa Primary Care Provider [phone] Antwon Mirza MD Unavailable [phone] Roland Patel MD Unavailable [phone] Encounter Details Date Type Department Care Team (Latest Contact Info) Description 05/13/2023 Travel Social History Tobacco Use Types Packs/Day Years Used Date Smoking Tobacco: Every Day Cigarettes 0.5 50.9 Started: 1974 Smokeless Tobacco: Never Alcohol Use Standard Drinks/Week Comments Yes 0 (1 standard drink = 0.6 oz pure alcohol) Occasionally, never a regular drinker Sex and Gender Information Value Date Recorded Sex Assigned at Not on file 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
--- OUTSIDE RECORDS SUMMARY | 2024-02-15 11:31 | XMS_ITS | Encounter Summary ---
Author Organization [facility] Address [address] [place] [address] Phone Care Team Providers Care Fiber Analyst Name Role Phone Jorge Espinosa Primary Care Provider [phone] Antwon Mirza MD Unavailable [phone] Roland Patel MD Unavailable [phone] Reason for Visit * Episode Based Medications (Routine) - Authorized Specialty Diagnoses / Procedures Referred By Contac t Referred To Contact Diagnoses Oropharyngeal cancer (HCC) Antwon Mirza MD [address] [place] [address] Phone: tel: fax: [facility] Oncology Services [address] [place] [address] Phone: tel: fax: Referral ID Status Reason Start Date Expiration Date V isits Requested Visits Authorized [id number] Authorized 05/09/2023 1 24 Encounter Details Date Type Department Care Team (Latest Contact Info) Description 05/12/2023 9:00 AM CDT Clinical Support [facility] Oncology Services [address] [place] [address] Antwon Mirza MD [address] [place] [address] Oropharyngeal cancer (HCC) (Primary Dx) [...] on file 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 Male 3:34 PM 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 Gender Identity Not on file Sexual Orientation Not on file documented as of this encounter Last Filed Vital Signs Vital Sign Reading Time Taken Comments Blood Pressure 178/73 05/12/2023 12:05 PM CDT Pulse 74 05/12/2023 12:05 PM CDT Temperature 35.8 ??C (96.5 ??F) 05/12/2023 9:00 AM CD T Respiratory Rate 16 05/12/2023 9:00 AM CDT Oxygen Saturation 100% 05/12/2023 9:00 AM CDT Inhaled Oxygen Concentration - - Weight 46.5 kg (102 lb 9.6 oz) 05/12/2023 9:00 A M CDT Height - - Body Mass Index 16.81 05/04/2023 9:00 AM CDT documented in this encounter Miscellaneous Notes * Interdisciplinary - Genny Go RD - 05/12/2023 9:00 AM CDT Nutrition Follow-Up; 05/12/2023-weekly ty=494# 9oz (wt up 2# from last week); Pt administering 5 cartons of Nutren 1.5 daily; consuming oral fluids to maintain swallowing muscles curing treatment; Maintaining head elevation, sleeps with 2-3 pillows (& has for years); Pt brought DME information ([facility] [phone]) Faxed [facility] to request PEG TF increase, to 5 cartons Nutren 1.5 per day (faxed to [phone]) * Interdisciplinary - Kamila Barron RN - 05/12/2023 9:00 AM CDT 1205- Pt has complaints of having a headache all of a sudden. MD notified and medication ordered. BP stable. Pt medicated per MD orders. * Interdisciplinary - Sister Romario Parmar RN - 05/12/2023 9:00 AM CDT Patient arrived and VS obtained. IV inserted per protocol x1 attempt. Flushed easily with good blood return. Labs obtained. Treatment plan explained. Opportunity for questions given, and patient was able to repeat back instructions. Consent for treatment signed. Medications given as ordered. Patient tolerated well. IV removed and site covered with gauze and coban. Patient left treatment area in stable condition. documented in this encounter Plan of Treatment Not on file documented as of this encounter Procedures Procedure Name Priority Date/Time Associated Diagnosis Comments CBC WITH AUTO DIFFERENTIAL STAT 05/12/2023 9:33 AM CDT Oropharyngeal cancer (HCC) MAGNESIUM (MG) STAT 05/12/2023 9:33 AM CDT Oropharyngeal cancer (HCC) CMP (COMPREHENSIVE METABOLIC PANEL) STAT 05/12/2023 9:33 AM CDT Oropharyngeal cancer (HCC) COMPLETE BLOOD COUNT (CBC) WITH DIFF STAT 05/12/2023 9:33 AM CDT Oropharyngeal cancer (HCC) RAD ONC ARIA SESSION SUMMARY Routine 05/12/2023 9:21 AM CDT Oropharyngeal cancer (HCC) documented in this encounter Results * (ABNORMAL) CBC WITH AUTO DIFFERENTIAL (05/12/2023 9:33 AM CDT) WBC 4.92 4.00 - 12.00 10(3)/mcL 05/12/2023 9:44 AM CDT [facility] RBC 4.12(L) 4.40 - 5.80 10(6)/mcL 05/12/2023 9:44 AM CDT [facility] HEMOGLOBIN (HGB) 11.2(L) 13.0 - 16.5 g/dL 05/12/2023 9:44 AM CDT [facility] HEMATOCRIT (HCT) 35.6(L) 38.0 - 50.0 % 05/12/2023 9:44 AM CDT [facility] MCV 86.4 82.0 - 96.0 fL 05/12/2023 9:44 AM CDT [facility] MCH 27.2 26.0 - 32.0 pg 05/12/2023 9:44 AM CDT [facility] MCHC 31.5 31.0 - 36.0 g/dL 05/12/2023 9:44 AM CDT [facility] PLATELET COUNT 371 140 - 440 10(3)/mcL 05/12/2023 9:44 AM CDT [facility] RDW 13.9 11.8 - 15.5 % 05/12/2023 9:44 AM CDT [facility] MPV 9.1 8.0 - 12.6 fL 05/12/2023 9:44 AM CDT [facility] NEUTROPHILS 60.4 40.0 - 68.0 % 05/12/2023 9:44 AM CDT [facility] LYMPHOCYTES 20.7 19.0 - 49.0 % 05/12/2023 9:44 AM CDT [facility] MONOCYTES 14.4(H) 3.0 - 13.0 % 05/12/2023 9:44 AM CDT [facility] EOSINOPHILS 3.9 0.0 - 8.0 % 05/12/2023 9:44 AM CDT [facility] BASOPHILS 0.6 0.0 - 1.0 % 05/12/2023 9:44 AM CDT [facility] ABSOLUTE NEUTROPHILS 2.97 1.40 - 5.30 10(3)/mcL 05/12/2023 9:44 AM CDT [facility] ABSOLUTE LYMPHOCYTES 1.02 0.90 - 3.30 10(3)/mcL 05/12/2023 9:44 AM CDT [facility] ABSOLUTE MONOCYTES 0.71 0.10 - 0.90 10(3)/mcL 05/12/2023 9:44 AM CDT [facility] ABSOLUTE EOSINOPHIL 0.19 0.00 - 0.50 10(3)/mcL 05/12/2023 9:44 AM CDT [facility] ABSOLUTE BASOPHILS 0.03 0.00 - 0.10 10(3)/[facility] 05/12/2023 9:44 AM CDT [facility] NRBC PER 100 WBC 0 05/12/19 9:44 AM CDT [facility] Blood Venipuncture / Unknown 05/12/2023 9:33 AM CDT 05/12/2023 9:33 AM CDT Antwon Mirza MD HEMATOLOGY ORDERABLES Fi nal Result [facility] [address] [place] [address] * MAGNESIUM (MG) (05/12/2023 9:33 AM CDT) MAGNESIUM 2.3 1.6 - 2.6 mg/dL 05/12/2023 10:12 AM CDT [facility] Blood Venipuncture / Unknown 05/12/2023 9:33 AM CDT 05/12/2023 9:33 AM CDT Antwon Mirza MD CHEMISTRY ORDERABLES Fin al Result [facility] [address] [place] [address] * (ABNORMAL) CMP (COMPREHENSIVE METABOLIC PANEL) (05/12/2023 9:33 AM CDT) SODIUM 132(L) 136 - 145 mmol/L 05/12/2023 10:12 AM CDT [facility] POTASSIUM 4.1 3.5 - 5.1 mmol/L 05/12/2023 10:12 AM CDT [facility] CHLORIDE 95(L) 98 - 107 mmol/L 05/12/2023 10:12 AM CDT [facility] CO2, VENOUS 31(H) 22 - 30 mmol/L 05/12/2023 10:12 AM CDT [facility] ANION GAP 10.1 <18.0 mmol/L 05/12/2023 10:12 AM CDT [facility] GLUCOSE 106(H) 70 - 99 mg/dL 05/12/2023 10:12 AM CDT [facility] BUN 37(H) 8 - 26 mg/dL 05/12/2023 10:12 AM CDT [facility] CREATININE, BLOOD 0.72 0.70 - 1.30 mg/dL 05/12/2023 10:12 AM CDT [facility] BUN/CREATININE RATIO 51(H) 12 - 20 ratio 05/12/2023 10:12 AM CDT [facility] TOTAL PROTEIN 7.9 6.3 - 8.2 g/dL 05/12/2023 10:12 AM CDT [facility] ALBUMIN 3.6 3.5 - 5.0 g/dL 05/12/2023 10:12 AM CDT [facility] A/G RATIO 0.8(L) 1.0 - 2.2 05/12/2023 10:12 AM CDT [facility] CALCIUM 9.4 8.7 - 10.5 mg/dL 05/12/2023 10:12 AM CDT [facility] T BILI 0.3 0.2 - 1.2 mg/dL 05/12/2023 10:12 AM CDT [facility] SGOT (AST) 73(H) 5 - 34 U/L 05/12/2023 10:12 AM CDT [facility] SGPT (ALT) 47 0 - 55 U/L 05/12/2023 10:12 AM CDT [facility] ALKALINE PHOSPHATASE 84 40 - 150 U/L 05/12/2023 10:12 AM CDT [facility] IS THE PATIENT REQUIRED TO BE FASTING? No 05/12/2023 10:12 AM CDT [facility] GFR, ESTIMATED >60 >=60 05/12/2023 10:12 AM CDT [facility] Comment: Creatinine Clearance is the preferred criteria for selecting drug dose adjustments in renally impaired patients. ??The GFR is provided as additional pertinent clinical information. GFR is reported in mL/min/1.73 sq m. Calculation based on the Chronic Kidney Disease Epidemiology Collaboration (CKD- EPI) equation refit without adjustment for race. GFR, EST. >60 >=60 024 10:12 AM CDT [facility] GFR, EST. NONAFRICAN >60 >=60 05/12/2023 10:12 AM CDT [facility] Blood Venipuncture / Unknown 05/12/2023 9:33 AM CDT 05/12/2023 9:33 AM CDT us Antwon Mirza MD CHEMISTRY ORDERABLES Fin al Result [facility] [address] [place] [address] * RAD ONC ARIA SESSION SUMMARY (05/12/2023 9:21 AM CDT) Course ID [id number] ARIA RO MODEL Course Intent Curative w/chemo ARIA RO MODEL Course Start Date 05/06/2023 11:27 AM ARIA RO MODEL Session Number 1 ARIA RO MODEL Course End Date 05/12/2023 9:16 AM ARIA RO MODEL Course Last Treatment Date 05/12/2023 9:18 AM ARIA RO MODEL Course Elapsed Days 0 ARIA RO MODEL Reference Point ID [id number] ARIA RO MODEL Reference Point Dosage Given to Date [id number] Gy ARIA RO MODEL Reference Point Session Dosage Given [id number] Gy ARIA RO MODEL Plan ID [id number] ARIA RO MODEL Plan Name Oropharynx & Nodes_70Gy ARIA RO MODEL Energy 6X ARIA RO MODEL Plan Fractions Treated to Date 1 ARIA RO MODEL Plan Total Fractions Prescribed 35 ARIA RO MODEL Plan Prescribed Dose Per Fraction 2 Gy ARIA RO MODEL Plan Total Prescribed Dose 7,000 cGy ARIA RO MODEL Plan Primary Reference Point [email or web address] ARIA RO MODEL 05/12/2023 9:21 AM CDT us Unknown Provider RADIATION ONCOLOGY ORDERABLES F inal Result ARIA RO MODEL [address] [place] [address] documented in this encounter Visit Diagnoses Diagnosis Oropharyngeal cancer (HCC)- Primary Malignant neoplasm of oropharynx, unspecified site documented in this encounter Administered Medications Inactive Administered Medications - up to 3 most recent administrations Medication Order MAR Action Action Date Dose Rate Site 0.9 % sodium chloride solution at 100 mL/hr, Intravenous, ONCE, 1 dose, On Tabitha 05/12/23 at 1030, 250mL bagIndications:Oropharyngeal cancer (HCC) New Bag 05/12/2023 10:24 AM CDT 100 mL/hr acetaminophen (TYLENOL) tablet 650 mg 650 mg, Oral, ONCE, 1 dose, On Tabitha 05/12/23 at 1230, Maximum dose of acetaminophen is 4000 mg from all sources in 24 hours.Indications:Oropharyngea l cancer (HCC) Given 05/12/2023 12:14 PM CDT 650 mg cetuximab (ERBITUX) chemo infusion 600 mg 600 mg (rounded from 580 mg = 400 mg/m2 ? 1.45 m2 Treatment Plan BSA from Recorded weight), Intravenous, ONCE, 1 dose, On Tabitha 05/12/23 at 1030, For initial loading dose, monitor patient for one hour post infusion.Indications:Oropharyn geal cancer (HCC) Given 05/12/2023 11:04 AM CDT 600 mg diphenhydrAMINE (BENADRYL) injection 25 mg 25 mg, Intravenous, ONCE, 1 dose, On Tabitha 05/12/23 at 1030, Give 30 minutes pre-cetuximab.Indications:Orop haryngeal cancer (HCC) Given 05/12/2023 10:28 AM CDT 25 mg documented in this encounter Care Teams Fiber Analyst Relationship Specialty Start Date End Date Jorge Espinosa PA [address] [place] [address] PCP - General Physician Cooking Chef 04/11/23 Antwon Mirza MD [address] [place] [address] Consulting Physician Medical Oncology 05/04/23 Roland Patel MD [address] [place] [address] Consulting Physician Radiation Oncology 05/04/23 documented as of this encounter
--- OUTSIDE RECORDS SUMMARY | 2024-02-15 11:31 | XMS_ITS | Encounter Summary ---
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
--- OUTSIDE RECORDS SUMMARY | 2024-02-15 11:31 | XMS_ITS | Encounter Summary ---
Author Organization [facility] Address [address] [facility] [place] [address] Phone Care Team Providers Care Cocoa Mill Operator Name Role Phone Jorge Espinosa Primary Care Provider [phone] Encounter Details Date Type Department Care Team (Late st Contact Info) Description 04/25/2023 Telephone [facility] Oncology Services [address] [place] [address] Lisa Burden, RN [place] Social [...] on file Legal Sex Male 3:34 PM PARALEGAL SPECIALIST Gender Identity Not on file Sexual Orientation Not on file documented as of this encounter Miscellaneous Notes * Telephone Encounter - Lisa Burden, RN - 04/25/2023 4:24 PM CDT I was able to make phone contact with patient's daughter Caroline. She was aware of the missed appointment last week stating she has spoken to his insurance and needs 3 days to facilitate scheduling of transportation. Her number listed is the best/FIRST contact mobile number [phone] and she wasable to provide me with Aleksey's number [phone] to only be used if she cannot be reached after a couple of attempts. She was given his next 2 appointments for 05/02 and 05/04/23 for SIM, labs, Chemo, aware of times/time frames and will contact for transportation for these dates. I informed her that I did mail these appointments earlier today as well as that we had not been able to contact anyone. She verbalized understanding of daily radiation treatments Mon-Fri once they start and that she would be given a calendar from radiation as well as one from [facility] regarding appointments as this should help with transportation notification. I reminded her to contact our office at any time for questions or concerns. She declined a need for a social media strategist to assist her. She is aware of our Route Rider, Katerin who can help as needed as well. This information was forwarded to Dr. Patel, Katerin Pride, navigator, and Alessandra Fan, radiation therapist. documented in this encounter Plan of Treatment Not on file documented as of this encounter Visit Diagnoses Not on filedocumented in this encounter Care Teams Cocoa Mill Operator Relationship Specialty Start Date End Date Jorge Espinosa PA [address] [place] [address] PCP - General Physician Business Excellence Manager 04/11/23 documented as of this encounter
--- OUTSIDE RECORDS SUMMARY | 2024-02-15 13:35 | XMS_ITS | Encounter Summary ---
Author Organization [facility] Address [address] [facility] [place] [address] Phone Care Team Providers Care Veneer Sorter Name Role Phone Jorge Espinosa Primary Care Provider [phone] Antwon Mirza MD Unavailable [phone] Roland Patel MD Unavailable [phone] Encounter Details Date Type Department Care Team (Late st Contact Info) Description 07/26/2023 Telephone [facility] Oncology Services [address] [place] [address] Lisa Burden, ANGELITA [place] Social History Tobacco Use Types Packs/Day Years Used Date Smoking Tobacco: Every Day Cigarettes 0.5 50.9 Started: 1974 Smokeless Tobacco: Never Alcohol Use Standard Drinks/Week Comments Yes 0 (1 standard drink = 0.6 oz pure alcohol) Occasionally, never a regular drinker Sex and Gender Information Value Date Recorded Sex Assigned at Not on file Legal Sex Male 3:34 PM STOCK CHECKER Gender Identity Not on file Sexual [...] on filedocumented in this encounter Care Teams Veneer Sorter Relationship Specialty Start Date End Date Jorge Espinosa PA [address] [place] [address] PCP - General Physician Nurse Head 04/11/23 Antwon Mirza MD [address] [place] [address] Consulting Physician Medical Oncology 05/04/23 Roland Patel MD [address] [place] [address] Consulting Physician Radiation Oncology 05/04/23 documented as of this encounter
--- OUTSIDE RECORDS SUMMARY | 2024-02-15 13:35 | XMS_ITS | Encounter Summary ---
Author Organization [facility] Address [address] [facility] [place] [address] Phone Care Team Providers Care Job Superintendent Name Role Phone Jorge Espinosa Primary Care Provider [phone] Antwon Mirza MD Unavailable [phone] Roland Patel MD Unavailable [phone] Reason for Visit * Auth/Cert (Routine) Specialty Diagnoses / Procedures Referred By Contac t Referred To Contact Referral ID Status Reason Start Date Expiration Date Visits Re quested Visits Authorized [id number] Encounter Details Date Type Department Care Team (Late st Contact Info) Description 07/25/2023 2:30 PM CDT Home Care Visit [facility] [address] [place] [address] Daniela Rodriguez, ROAD SIGN INSTALLER-SPEECH LANGUAGE PATHOLOGIST [place] ROAD SIGN INSTALLER - HOME VISIT Social History Tobacco Use Types Packs/Day Years Used Date Smoking Tobacco: Every Day Cigarettes 0.5 50.9 Started: 1974 Smokeless Tobacco: Never Alcohol Use Standard Drinks/Week Comments Yes 0 (1 standard drink = 0.6 oz pure alcohol) Occasionally, never a regular drinker Sex and Gender Information Value Date Recorded Sex Assigned at Not on file Legal Sex Male 3:34 PM SKI INSTRUCTOR Gender Identity Not on file Sexual [...] - Care Plan Visit Details Visit Type -ROAD SIGN INSTALLER - HOME VISIT Discipline -Speech Language Pathology Problems Problem Description Start Date Status Goals Interve ntions FALL PREVENTION (O) Disciplines: SN, PT, OT, ROAD SIGN INSTALLER, HCA, ELECTRIC SYSTEM OPERATOR, RT 07/09/2023 Active 1 goal linked to [...] oral intake to be met by 08/20/23 Radar Mechanic Goals Patient will retuirn demonstrate oral/pharyngeal/laryngeal exercises [...] goals the following were identified: Patient Centered Nursing Home Goal: Get rid of this tube. [...] is being treated by Dr. Zayas at [facility] with RADIOGRAPHER ANGIOGRAM. Pt was referred to ST for dysphagia. [facility] bedside swallow evaluation: The Mora Assessment [...] strategies. Other contributing issues: Pt is receiving RADIOGRAPHER ANGIOGRAM but states that he misses many visits due to not feeling well and transportation issues. ST to request repeat Modified Barium Swallow Study (MBSS). Pulse Oximetry PRN for shortness of breath and assessment of respiratory status. Problem:SPEECH THERAPY EVALUATION Goal:Speech Therapy Evaluation Completed documented in this encounter Care Teams Job Superintendent Relationship Specialty Start Date End Date Jorge Espinosa PA [address] [place] [address] PCP - General Physician Underliner 04/11/23 Antwon Mirza MD [address] [place] [address] Consulting Physician Medical Oncology 05/04/23 Roland Patel MD [address] [place] [address] Consulting Physician Radiation Oncology 05/04/23 documented as of this encounter
--- OUTSIDE RECORDS SUMMARY | 2024-02-15 13:35 | XMS_ITS | Encounter Summary ---
Author Organization [facility] Address [address] [facility] [place] [address] Phone Care Team Providers Care Assembler Metal Furniture Name Role Phone Jorge Espinosa Primary Care Provider Antwon Mirza MD Unavailable [phone] Roland Patel MD Unavailable Encounter Details Date Type Department Care Team (Late st Contact Info) Description 08/08/2023 Telephone [facility] Oncology Services [address] [place] [address] Roland Patel MD [address] [place] [address] Social History Tobacco Use Types Packs/Day Years Used Date Smoking Tobacco: Every Day Cigarettes 0.5 50.9 Started: 1974 Smokeless Tobacco: Never Alcohol Use Standard Drinks/Week Comments Yes 0 (1 standard drink = 0.6 oz pure alcohol) Occasionally, never a regular drinker Sex and Gender Information Value Date Recorded Sex Assigned at Not on file Legal Sex Male 3:34 PM LAB HEAD Gender Identity Not on file Sexual [...] call our office after she speaks with renal social worker with an update as to whether he is going to continue treatment or not. documented in this encounter Plan of Treatment Not on file documented as of this encounter Visit Diagnoses Not on filedocumented in this encounter Care Teams Assembler Metal Furniture Relationship Specialty Start Date End Date Jorge Espinosa PA [address] [place] [address] PCP - General Physician Him Specialists 04/11/23 Antwon Mirza MD [address] [place] [address] Consulting Physician Medical Oncology 05/04/23 Roland Patel MD [address] [place] [address] Consulting Physician Radiation Oncology 05/04/23 documented as of this encounter
--- OUTSIDE RECORDS SUMMARY | 2024-02-15 13:35 | XMS_ITS | Encounter Summary ---
Author Organization [employer] Care Team Providers Care Rotor Casting Machine Setup Operator Name Role Phone Jorge Espinosa Primary Care Provider [phone] Antwon Mirza MD Unavailable [phone] Roland Patel MD Unavailable [phone] Encounter Details Date Type Department Care Team [...] on file Legal Sex Male 3:34 PM IT SECURITY CONSULTANT Gender Identity Not on file Sexual Orientation Not on file documented as of this encounter Plan of Treatment Not on file documented as of this encounter Visit Diagnoses Not on filedocumented in this encounter Care Teams Rotor Casting Machine Setup Operator Relationship Specialty Start Date End Date Jorge Espinosa PA [address] [place] [address] PCP - General Physician Bonsai Culturist 04/11/23 Antwon Mirza MD [address] [place] [address] Consulting Physician Medical Oncology 05/04/23 Roland Patel MD [address] [place] [address] Consulting Physician Radiation Oncology 05/04/23 documented as of this encounter
--- OUTSIDE RECORDS SUMMARY | 2024-02-15 13:35 | XMS_ITS | Encounter Summary ---
Author Organization [facility] Address [address] [facility] [place] [address] Phone Care Team Providers Care Regional Education Coordinator Name Role Phone Jorge Espinosa Primary Care Provider [phone] Antwon Mirza MD Unavailable [phone] Roland Patel MD Unavailable [phone] Reason for Visit * Auth/Cert (Routine) Specialty Diagnoses / Procedures Referred By Contac t Referred To Contact Referral ID Status Reason Start Date Expiration Date Visits Re quested Visits Authorized [id number] Encounter Details Date Type Department Care Team (Late st Contact Info) Description 07/29/2023 9:00 AM CDT [facility] [address] [place] [address] Nadiya Sparks PTA PT - HOME VISIT [...] on file Legal Sex Male 3:34 PM SHAMPOOER Gender Identity Not on file Sexual Orientation [...] 08/27/23 (date) PAIN-MANAGEMENT/EDUCATION No PT Ambulation Description: Consulting Engineer Goal: Patient will ambulate independently x 100-200 feet with use of straight cane, over even surfaces and/or uneven surfaces with the following improved gait characteristics no LOB in order to safely ambulate to/from mailbox. To be met by 08-05-23. PT COMPREHENSIVE No PT Transfers Description: [facility] Goal: Patient will perform sit<>stand transfers independently with use of AD prn. To be met by 08-05-23. PT COMPREHENSIVE No PT HEP Description: [facility] Goal: Patient and/or caregiver will independently with [...] understanding. documented in this encounter Care Teams Regional Education Coordinator Relationship Specialty Start Date End Date Jorge Espinosa PA [address] [place] [address] PCP - General Physician Boring Machine Operator Horizontal 04/11/23 Antwon Mirza MD [address] [place] [address] Consulting Physician Medical Oncology 05/04/23 Roland Patel MD [address] [place] [address] Consulting Physician Radiation Oncology 05/04/23 documented as of this encounter
--- OUTSIDE RECORDS SUMMARY | 2024-02-15 13:35 | XMS_ITS | Encounter Summary ---
Author Organization [facility] Address [address] [facility] [place] [address] Phone Care Team Providers Care General Worker Name Role Phone Jorge Espinosa Primary Care Provider [phone] Antwon Mirza MD Unavailable [phone] Roland Patel MD Unavailable [phone] Reason for Visit * Auth/Cert (Routine) Specialty Diagnoses / Procedures Referred By Contac t Referred To Contact Referral ID Status Reason Start Date Expiration Date Visits Re quested Visits Authorized [id number] Encounter Details Date Type Department Care Team (Late st Contact Info) Description 08/18/2023 3:45 PM CDT [facility] [address] [place] [address] Daniela Rodriguez, DULSER-SPEECH LANGUAGE PATHOLOGIST NE DULSER - OASIS DISCHARGE Social History Tobacco Use Types Packs/Day Years Used Date Smoking Tobacco: Every Day Cigarettes 0.5 50.9 Started: 1974 Smokeless Tobacco: Never Alcohol Use Standard Drinks/Week Comments Yes 0 (1 standard drink = 0.6 oz pure alcohol) Occasionally, never a regular drinker Sex and Gender Information Value Date Recorded Sex Assigned at Not on file Legal Sex Male 3:34 PM SURVEY SUPERINTENDENT Gender Identity Not on file Sexual [...] - Care Plan Visit Details Visit Type -DULSER - ÁNGEL COLIN Discipline -Speech Language Pathology [...] oral intake to be met by 08/20/23 Business Solutions Consultant Goals Patient will retuirn demonstrate oral/pharyngeal/larynge al [...] the home. To be met by 08/20/23 Business Solutions Consultant Goal Patient will complete short-term memory tasks utilizing trained internal and/or external memory strategies/compensatory aides with 80 % accuracy with min visual/verbal cues in order to improve safety and independence in the home. To be met by: 09/06/23 ST DM COGNITION Therapy: Goal met Yes 1. GOAL MET 2. GOAL MET documented in this encounter Care Teams General Worker Relationship Specialty Start Date End Date Jorge Espinosa PA [address] [place] [address] PCP - General Physician Hardware Designer 04/11/23 Antwon Mirza MD [address] [place] [address] Consulting Physician Medical Oncology 05/04/23 Roland Patel MD [address] [place] [address] Consulting Physician Radiation Oncology 05/04/23 documented as of this encounter
--- OUTSIDE RECORDS SUMMARY | 2024-02-15 13:35 | XMS_ITS | Encounter Summary ---
Author Organization [facility] Address [address] [facility] [place] [address] Phone Care Team Providers Care School Child Care Attendant Name Role Phone Jorge Espinosa Primary Care Provider [phone] Antwon Mirza MD Unavailable [phone] Roland Patel MD Unavailable [phone] Reason for Visit * Auth/Cert (Routine) Specialty Diagnoses / Procedures Referred By Contac t Referred To Contact Referral ID Status Reason Start Date Expiration Date Visits Re quested Visits Authorized [id number] 19 Encounter Details Date Type Department Care Team (Late st Contact Info) Description 08/02/2023 Home Care Visit [facility] [address] [place] [address] Joaquin Dorsey, RN [place] TELEPHONE ENCOUNTER Social [...] on file Legal Sex Male 3:34 PM RACECOURSE BARRIER ATTENDANT Gender Identity Not on file Sexual Orientation Not on file documented as of this encounter Plan of Treatment Not on file documented as of this encounter Visit Diagnoses Not on filedocumented in this encounter Care Teams School Child Care Attendant Relationship Specialty Start Date End Date Jorge Espinosa PA [address] [place] [address] PCP - General Physician Teacher'S Aide 04/11/23 Antwon Mirza MD [address] [place] [address] Consulting Physician Medical Oncology 05/04/23 Roland Patel MD [address] [place] [address] Consulting Physician Radiation Oncology 05/04/23 documented as of this encounter
--- OUTSIDE RECORDS SUMMARY | 2024-02-15 13:35 | XMS_ITS | Encounter Summary ---
Author Organization [employer] Care Team Providers Care Shipping/Receiving Manager Name Role Phone Jorge Espinosa Primary Care Provider [phone] Antwon Mirza MD Unavailable [phone] Roland Patel MD Unavailable [phone] Encounter Details Date Type Department Care Team [...] on file Legal Sex Male 3:34 PM CONTINUITY PERSON Gender Identity Not on file Sexual Orientation Not on file documented as of this encounter Plan of Treatment Not on file documented as of this encounter Visit Diagnoses Not on filedocumented in this encounter Care Teams Shipping/Receiving Manager Relationship Specialty Start Date End Date Jorge Espinosa PA [address] [place] [address] PCP - General Physician Resolute Professional 04/11/23 Antwon Mirza MD [address] [place] [address] Consulting Physician Medical Oncology 05/04/23 Roland Patel MD [address] [place] [address] Consulting Physician Radiation Oncology 05/04/23 documented as of this encounter
--- OUTSIDE RECORDS SUMMARY | 2024-02-15 13:35 | XMS_ITS | Encounter Summary ---
Author Organization [facility] Address [address] [facility] [place] [address] Phone Care Team Providers Care Supply Assistant Name Role Phone Jorge Espinosa Primary Care Provider [phone] Antwon Mirza MD Unavailable [phone] Roland Patel MD Unavailable Encounter Details Date Type Department Care Team (Late st Contact Info) Description 08/23/2023 Telephone [facility] Oncology Services [address] [place] [address] Roland Patel MD [address] [place] [address] Social History Tobacco Use Types Packs/Day Years Used Date Smoking Tobacco: Every Day Cigarettes 0.5 50.9 Started: 1974 Smokeless Tobacco: Never Alcohol Use Standard Drinks/Week Comments Yes 0 (1 standard drink = 0.6 oz pure alcohol) Occasionally, never a regular drinker Sex and Gender Information Value Date Recorded Sex Assigned at Not on file Legal Sex Male 3:34 PM ORDER ENTRY REPRESENTATIVE Gender Identity Not on file Sexual Orientation [...] on filedocumented in this encounter Care Teams Supply Assistant Relationship Specialty Start Date End Date Jorge Espinosa PA [address] [place] [address] PCP - General Physician Hoisting Machine Operator 04/11/23 Antwon Mirza MD [address] [place] [address] Consulting Physician Medical Oncology 05/04/23 Roland Patel MD [address] [place] [address] Consulting Physician Radiation Oncology 05/04/23 documented as of this encounter
--- OUTSIDE RECORDS SUMMARY | 2024-02-15 13:35 | XMS_ITS | Encounter Summary ---
Author Organization [facility] Address [address] [facility] [place] [address] Phone Care Team Providers Care Financial Analyst Intern Name Role Phone Jorge Espinosa Primary Care Provider [phone] Antwon Mirza MD Unavailable [phone] Roland Patel MD Unavailable [phone] Reason for Referral * Radiology Services (Less Than 2 Weeks) - Closed Specialty Diagnoses / Procedures Referred By Contac t Referred To Contact Radiology Diagnoses Dysphagia, unspecified type Procedures XR SWALLOWING FUNCTION STUDY WITH VIDEO/CINE Gillian Bailey [address] [place] [address] Phone: tel: fax: Referral ID Status Reason Start Date Expiration Date Visits Re quested Visits Authorized [id number] Closed 07/27/2023 1 1 Reason for Visit * Reason Onset Date Comments Request MBS 07/27/2023 Encounter Details Date Type Department Care Team (Late st Contact Info) Description 07/27/2023 Telephone [facility] [address] [place] [address] Jorge Espinosa PA [address] [place] [address] Request [facility] Social History Tobacco Use Types Packs/Day Years Used Date Smoking Tobacco: Every Day Cigarettes 0.5 50.9 Started: 1974 Smokeless Tobacco: Never Alcohol Use Standard Drinks/Week Comments Yes 0 (1 standard drink = 0.6 oz pure alcohol) Occasionally, never a regular drinker Sex and Gender Information Value Date Recorded Sex Assigned at Not on file Legal Sex Male 3:34 PM HERD TESTER Gender Identity Not on file Sexual Orientation Not on file documented as of this encounter Miscellaneous Notes * Addendum Note - Gillian Bailey PAC - 07/27/2023 1:24 PM CDTAddended by: GILLIAN BAILEY on: 07/27/2023 01:24 PM Modules accepted: Orders * Telephone Encounter - Gillian Bailey PAC - 07/27/2023 1:24 PM CDT Orders placed * Telephone Encounter - Daniela Rodriguez MANAGER ACCESS-SPEECH LANGUAGE PATHOLOGIST - 07/27/2023 1:14 PM CDT [facility] bedside swallowing evaluation completed. recommends further imaging. Will you order a Modified Barium Swallow Study (MBSS) at [facility]? (X ray swallow Function Study with video CINE with a speech language pathologist) Thank you, Daniela Rodriguez M.S., VIRIDIANA-MANAGER ACCESS, CDP documented in this encounter Plan of Treatment Scheduled Orders Name Type Priority Associated Diagnoses Orde r Schedule XR SWALLOWING FUNCTION STUDY WITH VIDEO/CINE Imaging Less Than 2 weeks Dysphagia, unspecified type Expected: 07/27/2023, Expires: 10/27/2023 documented as of this encounter Visit Diagnoses Diagnosis Dysphagia, unspecified type- Primary documented in this encounter Care Teams Financial Analyst Intern Relationship Specialty Start Date End Date Jorge Espinosa PA [address] [place] [address] PCP - General Physician Thermometer Production Worker 04/11/23 Antwon Mirza MD [address] [place], [place] [address] Consulting Physician Medical Oncology 05/04/23 Roland Patel MD [address] [place] [address] Consulting Physician Radiation Oncology 05/04/23 documented as of this encounter
--- OUTSIDE RECORDS SUMMARY | 2024-02-15 13:35 | XMS_ITS | Encounter Summary ---
Author Organization [facility] Address [address] [facility] [place] [address] Phone Care Team Providers Care Custodial Laborer Name Role Phone Jorge Espinosa Primary Care Provider [phone] Antwon Mirza MD Unavailable [phone] Roland Patel MD Unavailable [phone] Reason for Visit * Auth/Cert (Routine) Specialty Diagnoses / Procedures Referred By Contac t Referred To Contact Referral ID Status Reason Start Date Expiration Date Visits Re quested Visits Authorized [id number] Encounter Details Date Type Department Care Team (Late st Contact Info) Description 08/02/2023 2:45 PM CDT [facility] [address] [place] [address] Daniela Rodriguez, DISABILITY COORDINATOR-SPEECH LANGUAGE PATHOLOGIST [place] DISABILITY COORDINATOR - HOME VISIT Social History Tobacco Use Types Packs/Day Years Used Date Smoking Tobacco: Every Day Cigarettes 0.5 50.9 Started: 1974 Smokeless Tobacco: Never Alcohol Use Standard Drinks/Week Comments Yes 0 (1 standard drink = 0.6 oz pure alcohol) Occasionally, never a regular drinker Sex and Gender Information Value Date Recorded Sex Assigned at Not on file Legal Sex Male 3:34 PM EDUCATIONAL AIDE Gender Identity Not on file Sexual [...] - Care Plan Visit Details Visit Type -DISABILITY COORDINATOR - HOME VISIT Discipline -Speech Language Pathology Problems Problem Description Start Date Status Goals Interve ntions FALL PREVENTION (O) Disciplines: SN, PT, OT, DISABILITY COORDINATOR, HCA, REELING AND TUBING MACHINE OPERATOR, RT 07/09/2023 Active 1 goal linked [...] oral intake to be met by 08/20/23 Solar Resource Assessor Goals Patient will retuirn demonstrate oral/pharyngeal/laryngeal exercises [...] the home. To be met by 08/20/23 Solar Resource Assessor Goal Patient will complete short-term memory tasks [...] strategies documented in this encounter Care Teams Custodial Laborer Relationship Specialty Start Date End Date Jorge Espinosa PA [address] [place] [address] PCP - General Physician Vacuum Pan Operator 04/11/23 Antwon Mirza MD [address] [place] [address] Consulting Physician Medical Oncology 05/04/23 Roland Patel MD [address] [place] [address] Consulting Physician Radiation Oncology 05/04/23 documented as of this encounter
--- OUTSIDE RECORDS SUMMARY | 2024-02-15 13:35 | XMS_ITS | Encounter Summary ---
Author Organization [facility] Address [address] [place] [address] Phone Care Team Providers Care Report Clerk Name Role Phone Jorge Espinosa Primary Care Provider [phone] Antwon Mirza MD Unavailable [phone] Roland Patel MD Unavailable [phone] Reason for Visit * Auth/Cert (Routine) Specialty Diagnoses / Procedures Referred By Contac t Referred To Contact Referral ID Status Reason Start Date Expiration Date Visits Re quested Visits Authorized [id number] 02 19 Encounter Details Date Type Department Care Team (Late st Contact Info) Description 08/08/2023 3:00 PM CDT Home Care Visit [facility] [address] [place] [address] Daniela Rodriguez, CLIP LOADING MACHINE FEEDER-SPEECH LANGUAGE PATHOLOGIST [place] CLIP LOADING MACHINE FEEDER - HOME VISIT Social History Tobacco Use [...] Legal Sex Male 3:34 PM DIRECTOR OF HOSPITALITY Gender Identity Not on file Sexual Orientation [...] - Care Plan Visit Details Visit Type -CLIP LOADING MACHINE FEEDER - HOME VISIT Discipline -Speech Language Pathology Problems Problem Description Start Date Status Goals Interve ntions FALL PREVENTION (O) Disciplines: SN, PT, OT, CLIP LOADING MACHINE FEEDER, HCA, HOUSE SITTER, RT 07/09/2023 Active 1 goal linked to [...] oral intake to be met by 08/20/23 [facility] Goals Patient will retuirn demonstrate oral/pharyngeal/laryngeal exercises [...] the home. To be met by 08/20/23 Baked And Graphite Inspector Goal Patient will complete short-term memory tasks [...] times each, 4 times daily. 1. Falsetto: [place] up in pitch to reach a high, [...] maintain muscle structure and swallowing function during wsvq-jlp-mwdv chemoradiotherapy. International Journal of Radiation Oncology Biology Physics , 83, 210-219. Nick KA, Shannon MK, Dany BM, et al. Eat and exercise during radiotherapy or chemoradiotherapy for pharyngeal cancers: use it or lose it. CAROL ANN Otolaryngol Head Neck Surg. 2013;139(11):5360-3818. doi:10.1001/jamaoto.[address] Short-Term Memory Description: Instruct on short-term memory strategies. Problem:ST DM COGNITION Goal:ST Short-Term Memory Completed Patient uses trained short-term memory aids with 70 % accuracy with minimal visual/verbal cues. Skill provided to improve this function consisted of memory aids for important information documented in this encounter Care Teams Report Clerk Relationship Specialty Start Date End Date Jorge Espinosa PA [address] [place] [address] PCP - General Physician Rn Correctional 04/11/23 Antwon Mirza MD [address] [place] [address] Consulting Physician Medical Oncology 05/04/23 Roland Patel MD [address] [place] [address] Consulting Physician Radiation Oncology 05/04/23 documented as of this encounter
--- OUTSIDE RECORDS SUMMARY | 2024-02-15 13:35 | XMS_ITS | Encounter Summary ---
Author Organization [facility] Address [address] [facility] [place] [address] Phone Care Team Providers Care Lead Athlete Name Role Phone Jorge Espinosa Primary Care Provider [phone] Antwon Mirza MD Unavailable [phone] Roland Patel MD Unavailable [phone] Reason for Visit * Auth/Cert (Routine) Specialty Diagnoses / Procedures Referred By Contac t Referred To Contact Referral ID Status Reason Start Date Expiration Date Visits Re quested Visits Authorized [id number] 1 13 Encounter Details Date Type Department Care Team (Late st Contact Info) Description 07/22/2023 9:00 AM CDT [facility] [address] [place] [address] Nadiya Sparks PTA PT - HOME VISIT [...] on file Legal Sex Male 3:34 PM MEDICARE CONTACT SPECIALIST Gender Identity Not on file Sexual [...] Goal Met? Visit Notes PT HEP Description: Intermediate Goal: Patient and/or caregiver will independently with [...] ongoing. documented in this encounter Care Teams Lead Athlete Relationship Specialty Start Date End Date Jorge Espinosa PA [address] [place] [address] PCP - General Physician Rooter Operator 04/11/23 Antwon Mirza MD [address] [place] [address] Consulting Physician Medical Oncology 05/04/23 Roland Patel MD [address] [place] [address] Consulting Physician Radiation Oncology 05/04/23 documented as of this encounter
--- OUTSIDE RECORDS SUMMARY | 2024-02-15 13:35 | XMS_ITS | Encounter Summary ---
Author Organization [facility] Address [address] [facility] [place] [address] Phone Care Team Providers Care Information Developer Name Role Phone Jorge Espinosa Primary Care Provider [phone] Antwon Mirza MD Unavailable [phone] Roland Patel MD Unavailable [phone] Reason for Visit * Auth/Cert (Routine) Specialty Diagnoses / Procedures Referred By Contac t Referred To Contact Referral ID Status Reason Start Date Expiration Date Visits Re quested Visits Authorized [id number] 02 19 Encounter Details Date Type Department Care Team (Late st Contact Info) Description 08/24/2023 10:30 AM CDT Home Care Visit [address] [address] Amy Swift, WASHER OPERATOR [place] WASHER OPERATOR - HOME VISIT Social History Tobacco Use Types Packs/Day Years Used Date Smoking Tobacco: Every Day Cigarettes 0.5 50.9 Started: 1974 Smokeless Tobacco: Never Alcohol Use Standard Drinks/Week Comments Yes 0 (1 standard drink = 0.6 oz pure alcohol) Occasionally, never a regular drinker Sex and Gender Information Value Date Recorded Sex Assigned at Not on file 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 Gender Identity Not on file Sexual Orientation Not on file documented as of this encounter Plan of Treatment Not on file documented as of this encounter Visit Diagnoses Not on filedocumented in this encounter Home Health Visit - Care Plan Visit Details Visit Type -WASHER OPERATOR - HOME VISIT Discipline -Medical Social Work Problems Problem Description Start Date Status Goals Interve ntions WASHER OPERATOR Disciplines: Sound Designer WASHER OPERATOR 08/08/2023 Active 1 goal linked to scheduled/documente d intervention 2 goal interventions scheduled/documented in this visit Goals Goal Associated Problem Outcome Goal Met? Visit Notes WASHER OPERATOR Description: 1. Patient will demonstrate motivation toward [...] needs. within 3 visits 5. Patient centered roasterman goal: Aleksey will have access to in-home help. WASHER OPERATOR No Interventions Intervention Associated Problem/Goal Status Variance Visit Notes WASHER OPERATOR Pain Problem:WASHER OPERATOR Goal:WASHER OPERATOR Completed Is the patient in physical pain or do they have other symptoms to be reported to the watch case polisher? no. Notified N/A. WASHER OPERATOR In-Home Services Description: Educate/ explore/ facilitate in home services. Problem:WASHER OPERATOR Goal:WASHER OPERATOR Completed In home services facilitated education regarding Dept on Aging homemaker service application process. documented in this encounter Care Teams Information Developer Relationship Specialty Start Date End Date Jorge Espinosa PA [address] [place] [address] PCP - General Physician Fancy Packer 04/11/23 Antwon Mirza MD [address] [place] [address] Consulting Physician Medical Oncology 05/04/23 Roland Patel MD [address] [place] [address] Consulting Physician Radiation Oncology 05/04/23 documented as of this encounter
--- OUTSIDE RECORDS SUMMARY | 2024-02-15 13:35 | XMS_ITS | Encounter Summary ---
Author Organization [facility] Address [address] [facility] [place] [address] Phone Care Team Providers Care Battery Container Inspector Name Role Phone Joreg Esipnosa Primary Care Provider Antwon Mirza MD Unavailable Roland Patel MD Unavailable [phone] Encounter Details Date Type Department Care Team (Late st Contact Info) Description 08/23/2023 Telephone [facility] Oncology Services [address] [place] [address] Roland Patel MD [address] [place] [address] Social History Tobacco Use Types Packs/Day Years Used Date Smoking Tobacco: Every Day Cigarettes 0.5 50.9 Started: 1974 Smokeless Tobacco: Never Alcohol Use Standard Drinks/Week Comments Yes 0 (1 standard drink = 0.6 oz pure alcohol) Occasionally, never a regular drinker Sex and Gender Information Value Date Recorded Sex Assigned at Not on file Legal Sex Male 3:34 PM TRICOT KNITTER Gender Identity Not on file Sexual Orientation Not on file documented as of this encounter Miscellaneous Notes * Telephone Encounter - Lisa Burden RN - 08/23/2023 4:49 PM CDT See earlier note from today. Alkesey did not show for his treatment today [...] appointment later this week for the social work faculty member to contact them as to be determined. [...] on filedocumented in this encounter Care Teams Battery Container Inspector Relationship Specialty Start Date End Date Jorge Espinosa PA [address] [place] [address] PCP - General Physician Professor Of Fine Art 04/11/23 Antwon Mirza MD [address] [place] [address] Consulting Physician Medical Oncology 05/04/23 Roland Patel MD [address] [place] [address] Consulting Physician Radiation Oncology 05/04/23 documented as of this encounter
--- OUTSIDE RECORDS SUMMARY | 2024-02-15 13:35 | XMS_ITS | Encounter Summary ---
Author Organization [facility] Address [address] [facility] [place] [address] Phone Care Team Providers Care Bobbin Winder Tender Name Role Phone Jorge Espinosa Primary Care Provider [phone] Antwon Mirza MD Unavailable [phone] Roland Patel MD Unavailable [phone] Reason for Visit * Auth/Cert (Routine) Specialty Diagnoses / Procedures Referred By Contac t Referred To Contact Referral ID Status Reason Start Date Expiration Date Visits Re quested Visits Authorized [id number] 1 13 Encounter Details Date Type Department Care Team (Late st Contact Info) Description 08/04/2023 11:30 AM CDT 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 Patient Centered Hyperbaric Technician Goal: safely get in the tub/shower Target [...] every and Radiotherapy Tuesday through Tuesday at [facility] cancer, and has had a 10 [...] notice of discharge signed on n/a as TABLEAU ANALYST still seeing pt. Discharge Instructions provided to [...] met documented in this encounter Care Teams Bobbin Winder Tender Relationship Specialty Start Date End Date Jorge Espinosa PA [address] [place] [address] PCP - General Physician Pellet Machine Operator 04/11/23 Antwon Mirza MD [address] [place] [address] Consulting Physician Medical Oncology 05/04/23 Roland Patel MD [address] [place] [address] Consulting Physician Radiation Oncology 05/04/23 documented as of this encounter
--- OUTSIDE RECORDS SUMMARY | 2024-02-15 13:35 | XMS_ITS | Encounter Summary ---
Author Organization [facility] Care Team Providers Care Sales And Production Manager Name Role Phone Jorge Espinosa Primary Care Provider [phone] Antwon Mirza MD Unavailable [phone] Roland Patel MD Unavailable [phone] Encounter Details Date Type Department Care Team [...] on file Legal Sex Male 3:34 PM SUBSEA ENGINEER Gender Identity Not on file Sexual Orientation Not on file documented as of this encounter Plan of Treatment Not on file documented as of this encounter Visit Diagnoses Not on filedocumented in this encounter Care Teams Sales And Production Manager Relationship Specialty Start Date End Date Jorge Espinosa PA [address] [place] [address] PCP - General Physician Agriculture Laboratory Technician 04/11/23 Antwon Mirza MD [address] [place] [address] Consulting Physician Medical Oncology 05/04/23 Roland Patel MD [address] [place] [address] Consulting Physician Radiation Oncology 05/04/23 documented as of this encounter
--- OUTSIDE RECORDS SUMMARY | 2024-02-15 13:35 | XMS_ITS | Encounter Summary ---
Author Organization [facility] Address [address] [facility] [place] [address] Phone Care Team Providers Care Spa Attendant Name Role Phone Jorge Espinosa Primary Care Provider [phone] Antwon Mirza MD Unavailable [phone] Roland Patel MD Unavailable [phone] Reason for Visit * Auth/Cert (Routine) Specialty Diagnoses / Procedures Referred By Contac t Referred To Contact Referral ID Status Reason Start Date Expiration Date Visits Re quested Visits Authorized [id number] 02 19 Encounter Details Date Type Department Care Team (Late st Contact Info) Description 07/27/2023 10:00 AM CDT [facility] [address] [place] [address] Gabby Diamond OTA [place] OT - HOME VISIT Social History Tobacco Use Types Packs/Day Years Used Date Smoking Tobacco: Every Day Cigarettes 0.5 50.9 Started: 1974 Smokeless Tobacco: Never Alcohol Use Standard Drinks/Week Comments Yes 0 (1 standard drink = 0.6 oz pure alcohol) Occasionally, never a regular drinker Sex and Gender Information Value Date Recorded Sex Assigned at Not on file Legal Sex Male 3:34 PM J2EE CONSULTANT Gender Identity Not on file Sexual [...] goals the following were identified. Patient Centered [facility] Goal: safely get in the tub/shower Target [...] every and Radiotherapy Tuesday through Tuesday at [facility] cancer, and has had a 10 [...] tub transfer bench to be sent to [employer]. Jyotsna will send message to charge nurse [...] tub transfer bench to be sent to [employer]. Jyotsna will send message to charge nurse to address with MD. 07/19/2023 OT Home visit documentation sent to Dr. Mirza's office via fax stating skilled need for DME. documented in this encounter Care Teams Spa Attendant Relationship Specialty Start Date End Date Jorge Espinosa PA [address] [place] [address] PCP - General Physician Court Interpreter 04/11/23 Antwon Mirza MD [address] [place] [address] Consulting Physician Medical Oncology 05/04/23 Roland Patel MD [address] [place] [address] Consulting Physician Radiation Oncology 05/04/23 documented as of this encounter
--- OUTSIDE RECORDS SUMMARY | 2024-02-15 13:35 | XMS_ITS | Encounter Summary ---
Author Organization [facility] Address [address] [facility] 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 RADIATION ONCOLOGY ON TREATMENT VISIT Patient [...] in in the interim including going to [place] for the of a cousin. He currently [...] Espinosa PA as PCP - General (Physician Client Solutions Specialist) Antwon Mirza MD as Consulting Physician (Medical [...] health documented in this encounter Care Teams Art Specialist Relationship Specialty Start Date End Date Jorge Espinosa PA [address] [place] [address] PCP - General Physician Client Solutions Specialist 04/11/23 Antwon Mirza MD [address] [place] [address] Consulting Physician Medical Oncology 05/04/23 Roland Patel MD [address] [place] [address] Consulting Physician Radiation Oncology 05/04/23 documented as of this encounter
--- OUTSIDE RECORDS SUMMARY | 2024-02-15 13:35 | XMS_ITS | Encounter Summary ---
Author Organization [facility] Address [address] [facility] [place] [address] Phone Care Team Providers Care Manager Occupational Name Role Phone Jorge Espinosa Primary Care Provider [phone] Antwon Mirza MD Unavailable [phone] Roland Patel MD Unavailable [phone] Reason for Visit * Auth/Cert (Routine) Specialty Diagnoses / Procedures Referred By Contac t Referred To Contact Referral ID Status Reason Start Date Expiration Date Visits Re quested Visits Authorized [id number] 02 19 Encounter Details Date Type Department Care Team (Late st Contact Info) Description 08/08/2023 Home Care Visit [facility] [address] [place] [address] Amy Swift, ATTENDANT LODGING FACILITIES [place] TELEPHONE ENCOUNTER Social History Tobacco Use Types Packs/Day Years Used Date Smoking Tobacco: Every Day Cigarettes 0.5 50.9 Started: 1974 Smokeless Tobacco: Never Alcohol Use Standard Drinks/Week Comments Yes 0 (1 standard drink = 0.6 oz pure alcohol) Occasionally, never a regular drinker Sex and Gender Information Value Date Recorded Sex Assigned at Not on file Legal Sex Male 3:34 PM PATCH SANDER Gender Identity Not on file Sexual Orientation Not on file documented as of this encounter Plan of Treatment Not on file documented as of this encounter Visit Diagnoses Not on filedocumented in this encounter Care Teams Manager Occupational Relationship Specialty Start Date End Date Jorge Espinosa PA [address] [place] [address] PCP - General Physician Investigation Division Lieutenant 04/11/23 Antwon Mirza MD [address] [place] [address] Consulting Physician Medical Oncology 05/04/23 Roland Patel MD [address] [place] [address] Consulting Physician Radiation Oncology 05/04/23 documented as of this encounter
--- OUTSIDE RECORDS SUMMARY | 2024-02-15 13:35 | XMS_ITS | Encounter Summary ---
Author Organization [facility] Address [address] [place] [address] Phone Care Team Providers Care Sports Therapist Name Role Phone Jorge Espinosa Primary Care Provider [phone] Antwon Mirza MD Unavailable [phone] Roland Patel MD Unavailable [phone] Encounter Details Date Type Department Care Team (Late st Contact Info) Description 08/03/2023 Telephone [facility] [address] [place] [address] Jorge Espinosa, SHAHID [address] [facility] [place] [address] Social History Tobacco Use Types Packs/Day Years Used Date Smoking Tobacco: Every Day Cigarettes 0.5 50.9 Started: 1974 Smokeless Tobacco: Never Alcohol Use Standard Drinks/Week Comments Yes 0 (1 standard drink = 0.6 oz pure alcohol) Occasionally, never a regular drinker Sex and Gender Information Value Date Recorded Sex Assigned at Not on file Legal Sex Male 3:34 PM TITLE I COORDINATOR Gender Identity Not on file Sexual Orientation Not on file documented as of this encounter Miscellaneous Notes * Telephone Encounter - Daniela Rodriguez, RENAL TECHNICIAN-SPEECH LANGUAGE PATHOLOGIST - 08/03/2023 10:46 AM CDT Will you give verbal ok for [facility] CASHIER COURTESY BOOTH? CASHIER COURTESY BOOTH for transportation, available resources as well as discussion of different levels of care (hospice) available. Electronically signed by Daniela Rodriguez, RENAL TECHNICIAN-SPEECH LANGUAGE PATHOLOGIST at 08/03/2023 10:47 AM CDT documented in this encounter Plan of Treatment Not on file documented as of this encounter Visit Diagnoses Not on filedocumented in this encounter Care Teams Sports Therapist Relationship Specialty Start Date End Date Jorge Espinosa PA [address] [place] [address] PCP - General Physician Gun Stocker 04/11/23 Antwon Mirza MD [address] [place] [address] Consulting Physician Medical Oncology 05/04/23 Roland Patel MD [address] [place] [address] Consulting Physician Radiation Oncology 05/04/23 documented as of this encounter
--- OUTSIDE RECORDS SUMMARY | 2024-02-15 13:35 | XMS_ITS | Encounter Summary ---
Author Organization [facility] Address [address] [place] [address] Phone Care Team Providers Care Global Ceo Name Role Phone Jorge Espinosa Primary Care Provider [phone] Antwon Mirza MD Unavailable [phone] Roland Patel MD Unavailable [phone] Reason for Visit * Auth/Cert (Routine) Specialty Diagnoses / Procedures Referred By Contac t Referred To Contact Referral ID Status Reason Start Date Expiration Date Visits Re quested Visits Authorized [id number] 02 19 Encounter Details Date Type Department Care Team (Late st Contact Info) Description 07/26/[address] [facility] [address] [place] [address] Gabby Diamnod OTA [place] RESCHEDULED MISSED VISIT Social History Tobacco Use Types Packs/Day Years Used Date Smoking Tobacco: Every Day Cigarettes 0.5 50.9 Started: 1974 Smokeless Tobacco: Never Alcohol Use Standard Drinks/Week Comments Yes 0 (1 standard drink = 0.6 oz pure alcohol) Occasionally, never a regular drinker Sex and Gender Information Value Date Recorded Sex Assigned at Not on file Legal Sex Male 3:34 PM CARD CLEANER Gender Identity Not on file Sexual Orientation [...] tomorrow. documented in this encounter Care Teams Global Ceo Relationship Specialty Start Date End Date Jorge Espinosa PA [address] [place] [address] PCP - General Physician It Field Technician 04/11/23 Antwon Mirza MD [address] [place] [address] Consulting Physician Medical Oncology 05/04/23 Roland Patel MD [address] [place] [address] Consulting Physician Radiation Oncology 05/04/23 documented as of this encounter
--- OUTSIDE RECORDS SUMMARY | 2024-02-15 13:35 | XMS_ITS | Encounter Summary ---
Author Organization [facility] Address [address] [facility] [place] [address] Phone Care Team Providers Care Deckhand Engineer Name Role Phone Jorge Espinosa Primary Care Provider [phone] Antwon Mirza MD Unavailable [phone] Roland Patel MD Unavailable [phone] Reason for Visit * Auth/Cert (Routine) Specialty Diagnoses / Procedures Referred By Contac t Referred To Contact Referral ID Status Reason Start Date Expiration Date Visits Re quested Visits Authorized [id number] 02 19 Encounter Details Date Type Department Care Team (Late st Contact Info) Description 07/25/2023 9:00 AM CDT [facility] [address] [place] [address] Nadiya Sparks PTA PT - HOME VISIT [...] on file Legal Sex Male 3:34 PM TRENCH DIGGING MACHINE OPERATOR Gender Identity Not on file [...] Goal Met? Visit Notes PT Transfers Description: Emissions Technician Goal: Patient will perform sit<>stand transfers independently with use of AD prn. To be met by 08-05-23. PT COMPREHENSIVE No PT HEP Description: Longterm Goal: Patient and/or caregiver will independently with [...] ongoing. documented in this encounter Care Teams Deckhand Engineer Relationship Specialty Start Date End Date Jorge Espinosa PA [address] [place] [address] PCP - General Physician Shank Inspector 04/11/23 Antwon Mirza MD [address] [place] [address] Consulting Physician Medical Oncology 05/04/23 Roland Patel MD [address] [place] [address] Consulting Physician Radiation Oncology 05/04/23 documented as of this encounter
--- OUTSIDE RECORDS SUMMARY | 2024-02-15 13:35 | XMS_ITS | Encounter Summary ---
Author Organization [facility] Address [address] [facility] [place] [address] Phone Care Team Providers Care Surveillance System Monitor Name Role Phone Jorge Espinosa Primary Care Provider [phone] Antwon Mirza MD Unavailable [phone] Roland Patel MD Unavailable [phone] Reason for Visit * Auth/Cert (Routine) Specialty Diagnoses / Procedures Referred By Contac t Referred To Contact Referral ID Status Reason Start Date Expiration Date Visits Re quested Visits Authorized [id number] 02 19 Encounter Details Date Type Department Care Team (Late st Contact Info) Description 07/27/2023 Home Care Visit [facility] [address] [place] [address] Gabby Diamond OTA [place] TELEPHONE ENCOUNTER Social History Tobacco Use Types Packs/Day Years Used Date Smoking Tobacco: Every Day Cigarettes 0.5 50.9 Started: 1974 Smokeless Tobacco: Never Alcohol Use Standard Drinks/Week Comments Yes 0 (1 standard drink = 0.6 oz pure alcohol) Occasionally, never a regular drinker Sex and Gender Information Value Date Recorded Sex Assigned at Not on file Legal Sex Male 3:34 PM REQUIREMENTS MANAGER Gender Identity Not on file Sexual [...] DME. documented in this encounter Care Teams Surveillance System Monitor Relationship Specialty Start Date End Date Jorge Espinosa PA [address] [place] [address] PCP - General Physician Field Sales Specialist 04/11/23 Antwon Mirza MD [address] [place] [address] Consulting Physician Medical Oncology 05/04/23 Roland Patel MD [address] [place] [address] Consulting Physician Radiation Oncology 05/04/23 documented as of this encounter
--- OUTSIDE RECORDS SUMMARY | 2024-02-15 13:35 | XMS_ITS | Clinical Summary ---
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
--- OUTSIDE RECORDS SUMMARY | 2024-02-15 13:35 | XMS_ITS ---
Author Organization [facility] Address [address] [place] [address] Phone Care Team Providers Care Sales Closer Name Role Phone Jorge Espinosa Primary Care Provider Antwon Mirza MD Unavailable [phone] Roland Patel MD Unavailable [phone] Active Problems Problem Noted Date Diagnosed Date [...] 05/09/2023 CISplatin (PLATINOL) chemo infusion Not Tolerated Antwon Mirza MD Treatment not started Current Radiation [...]
--- OUTSIDE RECORDS SUMMARY | 2024-02-15 13:35 | XMS_ITS | Encounter Summary ---
Author Organization [facility] Address [address] [facility] [place] [address] Phone Care Team Providers Care Conductor Yard Name Role Phone Jorge Espinosa Primary Care Provider [phone] Antwon Mirza MD Unavailable [phone] Roland Patel MD Unavailable [phone] Reason for Visit * Auth/Cert (Routine) Specialty Diagnoses / Procedures Referred By Contac t Referred To Contact Referral ID Status Reason Start Date Expiration Date Visits Re quested Visits Authorized [id number] 02 19 Encounter Details Date Type Department Care Team (Late st Contact Info) Description 08/01/2023 11:00 AM CDT 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 Visit Notes PT Balance Description: Emergency Operator Goal: Patient will show improved dynamic standing balance as demonstrated by improved Tinetti score from to in order to lower risk for falls and Improve functional mobility. To be met by 08-05-23. PT COMPREHENSIVE Therapy: Goal met Yes PT Stairs and Home Exit Description: Residential Goal: Patient will be independent on entry steps with use of HR/AD prn while maintaining ordered precautions to allow for ability to enter/exit home safely . To be met by 08-05-23. PT COMPREHENSIVE Therapy: Goal met Yes PT Ambulation Description: Residential Goal: Patient will ambulate independently x 100-200 feet with use of straight cane, over even surfaces and/or uneven surfaces with the following improved gait characteristics no LOB in order to safely ambulate to/from mailbox. To be met by 08-05-23. PT COMPREHENSIVE Therapy: Goal met Yes PT Transfers Description: Emergency Operator Goal: Patient will perform sit<>stand transfers independently with use of AD prn. To be met by 08-05-23. PT COMPREHENSIVE Therapy: Goal met Yes PT HEP Description: Emergency Operator Goal: Patient and/or caregiver will independently with [...] understanding. documented in this encounter Care Teams Conductor Yard Relationship Specialty Start Date End Date Jorge Espinosa PA [address] [place] [address] PCP - General Physician Buttermaker 04/11/23 Antwon Mirza MD [address] [place] [address] Consulting Physician Medical Oncology 05/04/23 Roland Patel MD [address] [place] [address] Consulting Physician Radiation Oncology 05/04/23 documented as of this encounter
--- OUTSIDE RECORDS SUMMARY | 2024-02-15 13:35 | XMS_ITS | Encounter Summary ---
Author Organization [facility] Address [address] [facility] 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 Gender Identity Not on file Sexual Orientation [...] MODEL Reference Point Dosage Given to Date [id number] Gy ARIA RO MODEL Reference Point Session Dosage Given [id number] Gy ARIA RO MODEL Plan ID [id number] [...] de Phone Number ARIA RO MODEL [address] [place] [address] documented in this encounter Visit Diagnoses Not on filedocumented in this encounter Care Teams Aviation Support Equipment Repairer Relationship Specialty Start Date End Date Jorge Espinosa PA [address] [place] [address] PCP - General Physician Staff Sonographer 04/11/23 Antwon Mirza MD [address] [place] [address] Consulting Physician Medical Oncology 05/04/23 Roland Patel MD [address] [place] [address] Consulting Physician Radiation Oncology 05/04/23 documented as of this encounter
--- OUTSIDE RECORDS SUMMARY | 2024-02-15 13:35 | XMS_ITS | Encounter Summary ---
Author Organization [facility] Address [address] [facility] [place] [address] Phone Care Team Providers Care Senior Linux Unix Engineer Name Role Phone Jorge Espinosa Primary Care Provider [phone] Antwon Mirza MD Unavailable Roland Patel MD Unavailable [phone] Encounter Details Date Type Department Care Team (Late st Contact Info) Description 08/03/2023 Telephone [facility] [address] [place] [address] Jorge Espinosa, SHAHID [address] [facility] [place] [address] Social History Tobacco Use Types Packs/Day Years Used Date Smoking Tobacco: Every Day Cigarettes 0.5 50.9 Started: 1974 Smokeless Tobacco: Never Alcohol Use Standard Drinks/Week Comments Yes 0 (1 standard drink = 0.6 oz pure alcohol) Occasionally, never a regular drinker Sex and Gender Information Value Date Recorded Sex Assigned at Not on file 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 Per chart review, it looks like Rocael Segal PCP. Would recommend to route to his office for INTERVENTIONAL NURSE orders. * Telephone Encounter - Daniela Rodriguez, SCENIC ARTS SUPERVISOR-SPEECH LANGUAGE PATHOLOGIST - 08/03/2023 8:32 AM CDT Will you give verbal ok for [facility] INTERVENTIONAL NURSE? INTERVENTIONAL NURSE for transportation, available resources as well as discussion of different levels of care available. Electronically signed by Daniela Rodriguez, SCENIC ARTS SUPERVISOR-SPEECH LANGUAGE PATHOLOGIST at 08/03/2023 8:34 AM CDT documented in this encounter Plan of Treatment Not on file documented as of this encounter Visit Diagnoses Not on filedocumented in this encounter Care Teams Senior Linux Unix Engineer Relationship Specialty Start Date End Date Jorge Espinosa PA [address] [place] [address] PCP - General Physician Buyer Intern 04/11/23 Antwon Mirza MD [address] [place] [address] Consulting Physician Medical Oncology 05/04/23 Roland Patel MD [address] [place] [address] Consulting Physician Radiation Oncology 05/04/23 documented as of this encounter
--- OUTSIDE RECORDS SUMMARY | 2024-02-15 13:35 | XMS_ITS | Encounter Summary ---
Author Organization [facility] Address [address] [place] [address] Phone Care Team Providers Care Group Exercise Class Instructor Name Role Phone Jorge Espinosa Primary Care Provider [phone] Antwon Mirza MD Unavailable Roland Patel MD Unavailable [phone] Encounter Details Date Type Department Care Team (Late st Contact Info) Description 08/04/2023 Telephone [facility] [address] [place] [address] Gillian Bailey Edith, PAC [address] [place] [address] Social History Tobacco Use Types Packs/Day Years Used Date Smoking Tobacco: Every Day Cigarettes 0.5 50.9 Started: 1974 Smokeless Tobacco: Never Alcohol Use Standard Drinks/Week Comments Yes 0 (1 standard drink = 0.6 oz pure alcohol) Occasionally, never a regular drinker Sex and Gender Information Value Date Recorded Sex Assigned at Not on file 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 Gender Identity Not on file Sexual Orientation Not on file documented as of this encounter Miscellaneous Notes * Telephone Encounter - Daniela Rodriguez, TRANSFER STATION OPERATOR-SPEECH LANGUAGE PATHOLOGIST - 08/04/2023 12:21 PM CDT Error Electronically signed by Daniela Rodriguez, TRANSFER STATION OPERATOR-SPEECH LANGUAGE PATHOLOGIST at 08/04/2023 12:21 PM CDT documented in this encounter Plan of Treatment Not on file documented as of this encounter Visit Diagnoses Not on filedocumented in this encounter Care Teams Group Exercise Class Instructor Relationship Specialty Start Date End Date Jorge Espinosa PA [address] [place] [address] PCP - General Physician Shoemaking Finisher 04/11/23 Antwon Mirza MD [address] [place] [address] Consulting Physician Medical Oncology 05/04/23 Roland Patel MD [address] [place] [address] Consulting Physician Radiation Oncology 05/04/23 documented as of this encounter
--- OUTSIDE RECORDS SUMMARY | 2024-02-15 13:35 | XMS_ITS | Encounter Summary ---
Author Organization [facility] Address [address] [facility] [place] [address] Phone Care Team Providers Care Candy Decorator Name Role Phone Jorge Espinosa Primary Care Provider [phone] Antwon Mirza MD Unavailable [phone] Roland Patel MD Unavailable [phone] Reason for Visit * Auth/Cert (Routine) Specialty Diagnoses / Procedures Referred By Contac t Referred To Contact Referral ID Status Reason Start Date Expiration Date Visits Re quested Visits Authorized [id number] Encounter Details Date Type Department Care Team (Late st Contact Info) Description 08/16/2023 3:30 PM CDT Home Care Visit [facility] [address] [place] [address] Daniela Rodriguez, IMCU NURSE-SPEECH LANGUAGE PATHOLOGIST [place] IMCU NURSE - HOME VISIT Social History Tobacco Use Types Packs/Day Years Used Date Smoking Tobacco: Every Day Cigarettes 0.5 50.9 Started: 1974 Smokeless Tobacco: Never Alcohol Use Standard Drinks/Week Comments Yes 0 (1 standard drink = 0.6 oz pure alcohol) Occasionally, never a regular drinker Sex and Gender Information Value Date Recorded Sex Assigned at Not on file 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 Target Date: by 08/17/23 (date) SPEECH THERAPY EVALUATION No ST Short-Term Memory Description: Short Term Goal Patient will complete short-term memory tasks utilizing trained internal and/or external memory strategies/compensatory aides with 70 % accuracy with moderate visual/verbal cues in order to improve safety and independence in the home. To be met by 08/20/23 Sales Force Administrator Goal Patient will complete short-term memory tasks [...] memory to ST plan of care. The [facility] Mental Status Exam (SLUMS) was used to [...] Zayas at [facility] with LOCOMOTIVE ENGINEER DIESEL. Pt was referred to ST for dysphagia. [facility] ST bedside swallow evaluation: The Mora Assessment [...] strategies. Other contributing issues: Pt is receiving LOCOMOTIVE ENGINEER DIESEL but states that he misses many visits [...] YES documented in this encounter Care Teams Candy Decorator Relationship Specialty Start Date End Date Jorge Espinosa PA [address] [place] [address] PCP - General Physician Pet Walker 04/11/23 Antwon Mirza MD [address] [place] [address] Consulting Physician Medical Oncology 05/04/23 Roland Patel MD [address] [place] [address] Consulting Physician Radiation Oncology 05/04/23 documented as of this encounter
--- OUTSIDE RECORDS SUMMARY | 2024-02-15 13:35 | XMS_ITS | Encounter Summary ---
Author Organization [facility] Address [address] [facility] [place] [address] Phone Care Team Providers Care Web Application Developer Name Role Phone Jorge Espinosa Primary Care Provider [phone] Antwon Mirza MD Unavailable [phone] Roland Patel MD Unavailable [phone] Reason for Visit * Auth/Cert (Routine) Specialty Diagnoses / Procedures Referred By Contac t Referred To Contact Referral ID Status Reason Start Date Expiration Date Visits Re quested Visits Authorized [id number] Encounter Details Date Type Department Care Team (Late st Contact Info) Description 08/04/2023 2:15 PM CDT Home Care Visit [facility] [address] [place] [address] Daniela Rodriguez, TAPEMAN-SPEECH LANGUAGE PATHOLOGIST [place] TAPEMAN - HOME VISIT Social History Tobacco Use Types Packs/Day Years Used Date Smoking Tobacco: Every Day Cigarettes 0.5 50.9 Started: 1974 Smokeless Tobacco: Never Alcohol Use Standard Drinks/Week Comments Yes 0 (1 standard drink = 0.6 oz pure alcohol) Occasionally, never a regular drinker Sex and Gender Information Value Date Recorded Sex Assigned at Not on file 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 Gender Identity Not on file [...] - Care Plan Visit Details Visit Type -TAPEMAN - HOME VISIT Discipline -Speech Language Pathology Problems Problem Description Start Date Status Goals Interve ntions FALL PREVENTION (O) Disciplines: SN, PT, OT, TAPEMAN, HCA, STUNTMAN, RT 07/09/2023 Active 1 goal linked to [...] understanding of identified fall risk based [facility] Fall Risk assessment and methods to prevent [...] oral intake to be met by 08/20/23 Textile Bag Sewer Goals Patient will retuirn demonstrate oral/pharyngeal/laryngeal exercises [...] goals the following were identified: Patient Centered Correction Goal: Get rid of this tube. Target [...] memory to ST plan of care. The [facility] Mental Status Exam (UMS) was used [...] is being treated by Dr. Zayas at [facility] with COPYRIGHT EXPERT. Pt was referred to ST for dysphagia. [facility] bedside swallow evaluation: The Mora Assessment of [...] strategies. Other contributing issues: Pt is receiving COPYRIGHT EXPERT but states that he misses many visits due to not feeling well and transportation issues. ST to request repeat Modified Barium Swallow Study (MBSS). Pulse Oximetry PRN for shortness of breath and assessment of respiratory status. Problem:SPEECH THERAPY EVALUATION Goal:Speech Therapy Evaluation Completed documented in this encounter Care Teams Web Application Developer Relationship Specialty Start Date End Date Jorge Espinosa PA [address] [place] [address] PCP - General Physician Lining Printer 04/11/23 Antwon Mirza MD [address] [place] [address] Consulting Physician Medical Oncology 05/04/23 Roland Patel MD [address] [place] [address] Consulting Physician Radiation Oncology 05/04/23 documented as of this encounter
--- OUTSIDE RECORDS SUMMARY | 2024-02-15 13:35 | XMS_ITS | Encounter Summary ---
Author Organization [facility] Address [address] [facility] [place] [address] Phone Care Team Providers Care Weight Tester Name Role Phone Jorge Espinosa Primary Care Provider [phone] Antwon Mirza MD Unavailable [phone] Roland Patel MD Unavailable [phone] Reason for Visit * Auth/Cert (Routine) Specialty Diagnoses / Procedures Referred By Contac t Referred To Contact Referral ID Status Reason Start Date Expiration Date Visits Re quested Visits Authorized [id number] 02 19 Encounter Details Date Type Department Care Team (Latest Contact Info) Description 07/29/2023 9:30 AM CDT Home Care Visit [facility] [address] [place] [address] Joaquin Dorsey, RN [place] SN - DISCIPLINE [...] on file 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 Gender Identity Not on file Sexual Orientation [...] Visit Type -SN - DISCIPLINE DISCHARGE Discipline -Usp Problems Problem Description Start Date Status Goals Interve ntions CANCER Disciplines: Usp Cancer 07/09/2023 Active 1 goal linked to scheduled/documen yoselin intervention 1 goal intervention scheduled/document ed in this visit PAIN-MANAGEMENT /EDUCATION Disciplines: Skilled Clinicians 07/09/2023 Active 1 goal linked to scheduled/documen yoselin intervention 1 goal intervention scheduled/document ed in this visit SN GENERAL ORDERS Disciplines: Usp SN General Orders 07/09/2023 Active 1 goal linked to scheduled/documen yoselin intervention 1 goal intervention scheduled/document ed in this visit DIET EDUCATION Disciplines: Usp Diet Education 07/09/2023 Active 1 goal linked to scheduled/documen yoselin intervention 1 goal intervention scheduled/document ed in this visit HYPERTENSION ORDERS Disciplines: Usp Hypertension Orders 07/14/2023 Active 1 goal linked [...] independent documented in this encounter Care Teams Weight Tester Relationship Specialty Start Date End Date Jorge Espinosa PA [address] [place] [address] PCP - General Physician Head Of Operation And Logistics 04/11/23 Antwon Mirza MD [address] [place] [address] Consulting Physician Medical Oncology 05/04/23 Roland Patel MD [address] [place] [address] Consulting Physician Radiation Oncology 05/04/23 documented as of this encounter
--- OUTSIDE RECORDS SUMMARY | 2024-02-15 13:35 | XMS_ITS | Encounter Summary ---
Author Organization [facility] Address [address] [facility] [place] [address] Phone Care Team Providers Care Channel Marketing Coordinator Name Role Phone Jorge Espinosa Primary Care Provider [phone] Antwon Mirza MD Unavailable [phone] Roland Patel MD Unavailable [phone] Reason for Visit * Auth/Cert (Routine) Specialty Diagnoses / Procedures Referred By Contac t Referred To Contact Referral ID Status Reason Start Date Expiration Date Visits Re quested Visits Authorized [id number] 02 19 Encounter Details Date Type Department Care Team (Latest Contact Info) Description 07/28/2023 3:00 PM CDT [facility] [address] [place] [address] Nadiya Sparks, CHIP MACHINE OPERATOR RESCHEDULED MISSED VISIT Social History Tobacco Use Types Packs/Day Years Used Date Smoking Tobacco: Every Day Cigarettes 0.5 50.9 Started: 1974 Smokeless Tobacco: Never Alcohol Use Standard Drinks/Week Comments Yes 0 (1 standard drink = 0.6 oz pure alcohol) Occasionally, never a regular drinker Sex and Gender Information Value Date Recorded Sex Assigned at Not on file 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
--- OUTSIDE RECORDS SUMMARY | 2024-02-15 13:35 | XMS_ITS | Encounter Summary ---
Author Organization [facility] Address [address] [facility] 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 Gender Identity Not on file Sexual Orientation [...] MODEL Reference Point Dosage Given to Date [id number] Gy ARIA RO MODEL Reference Point Session Dosage Given [id number] Gy ARIA RO MODEL Plan ID [id number] [...] ORDERABLES F inal Result Performing Organization Address City/State/[facility] Co de Phone Number ARIA RO MODEL [address] [place] [address] documented in this encounter Visit Diagnoses Not on filedocumented in this encounter Care Teams Poultry Farmer Relationship Specialty Start Date End Date Jorge Espinosa PA [address] [place] [address] PCP - General Physician Clerical Proofreader 04/11/23 Antwon Mirza MD [address] [place] [address] Consulting Physician Medical Oncology 05/04/23 Roland Patel MD [address] [place] [address] Consulting Physician Radiation Oncology 05/04/23 documented as of this encounter
--- OUTSIDE RECORDS SUMMARY | 2024-02-15 13:35 | XMS_ITS | Encounter Summary ---
Author Organization [facility] Address [address] [facility] [place] [address] Phone Care Team Providers Care Educational Program Director Name Role Phone Jorge Espinosa Primary Care Provider [phone] Antwon Mirza MD Unavailable [phone] Roland Patel MD Unavailable [phone] Reason for Visit * Auth/Cert (Routine) Specialty Diagnoses / Procedures Referred By Contac t Referred To Contact Referral ID Status Reason Start Date Expiration Date Visits Re quested Visits Authorized [id number] Encounter Details Date Type Department Care Team (Late st Contact Info) Description 07/27/2023 2:30 PM CDT [facility] [address] [place] [address] Daniela Rodriguez, RESPOOLER-SPEECH LANGUAGE PATHOLOGIST [place] RESPOOLER - REASSESSMENT Social History Tobacco Use Types Packs/Day Years Used Date Smoking Tobacco: Every Day Cigarettes 0.5 50.9 Started: 1974 Smokeless Tobacco: Never Alcohol Use Standard Drinks/Week Comments Yes 0 (1 standard drink = 0.6 oz pure alcohol) Occasionally, never a regular drinker Sex and Gender Information Value Date Recorded Sex Assigned at Not on file 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 Target [...] memory to ST plan of care. The [facility] Mental Status Exam (UMS) was used [...] is being treated by Dr. Zayas at [facility] with FISHING MANAGER. Pt was referred to for dysphagia. [facility] bedside swallow evaluation: The Mora Assessment of [...] strategies. Other contributing issues: Pt is receiving FISHING MANAGER but states that he misses many visits due to not feeling well and transportation issues. ST to request repeat Modified Barium Swallow Study (MBSS). Pulse Oximetry PRN for shortness of breath and assessment of respiratory status. Problem:SPEECH THERAPY EVALUATION Goal:Speech Therapy Evaluation Completed documented in this encounter Care Teams Educational Program Director Relationship Specialty Start Date End Date Jorge Espinosa PA [address] [place] [address] PCP - General Physician Ore Charger 04/11/23 Antwon Mirza MD [address] [place] [address] Consulting Physician Medical Oncology 05/04/23 Roland Patel MD [address] [place] [address] Consulting Physician Radiation Oncology 05/04/23 documented as of this encounter
--- OUTSIDE RECORDS SUMMARY | 2024-02-15 13:35 | XMS_ITS | Encounter Summary ---
Author Organization [facility] Address [address] [facility] [place] [address] Phone Care Team Providers Care Planning Engineer Name Role Phone Jorge Espinosa Primary Care Provider [phone] Antwon Mirza MD Unavailable [phone] Roland Patel MD Unavailable Encounter Details Date Type Department Care Team (Latest Contact Info) Description 09/05/2023 Non-Scheduled Office Visit 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 Gender Identity Not on file Sexual Orientation Not on file documented as of this encounter Progress Notes * Roland Patel MD - 09/05/2023 3:51 PM CDT RADIATION ONCOLOGY COMPLETION OF TREATMENT SUMMARY DATE: 09/05/2023 NAME: Aleksey Godfrey SrShailesh : 1960 Patient Care Team: Jorge Espinosa PA as PCP - General (Physician Metal Fitters And Machinists) Antwon Mirza MD as Consulting Physician (Medical [...] chemotherapy documented in this encounter Care Teams Planning Engineer Relationship Specialty Start Date End Date Jorge Espinosa PA [address] [place] [address] PCP - General Physician Metal Fitters And Machinists 04/11/23 Antwon Mirza MD [address] [place] [address] Consulting Physician Medical Oncology 05/04/23 Roland Patel MD [address] [place] [address] Consulting Physician Radiation Oncology 05/04/23 documented as of this encounter
--- OUTSIDE RECORDS SUMMARY | 2024-02-15 13:35 | XMS_ITS | Encounter Summary ---
Author Organization [facility] Address [address] [facility] [place] [address] Phone Care Team Providers Care Safety Deposit Supervisor Name Role Phone Jorge Espinosa Primary Care Provider [phone] Antwon Mirza MD Unavailable [phone] Roland Patel MD Unavailable [phone] Reason for Visit * Auth/Cert (Routine) Specialty Diagnoses / Procedures Referred By Contac t Referred To Contact Referral ID Status Reason Start Date Expiration Date Visits Re quested Visits Authorized [id number] 02 19 Encounter Details Date Type Department Care Team (Latest Contact Info) Description 08/08/2023 9:00 AM CDT Home Care Visit [facility] [address] [place] [address] Amy Swift, BHUMIKA MA TIRE SETTER - INITIAL EVALUATION Social History Tobacco Use Types Packs/Day Years Used Date Smoking Tobacco: Every Day Cigarettes 0.5 50.9 Started: 1974 Smokeless Tobacco: Never Alcohol Use Standard Drinks/Week Comments Yes 0 (1 standard drink = 0.6 oz pure alcohol) Occasionally, never a regular drinker Sex and Gender Information Value Date Recorded Sex Assigned at Not on file 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 Summary of care 1) completed initial evaluation and needs assessment 2) call to [facility] regarding a referral for Dept on Aging homemaker service 3) call to [employer] and requested an application be sent to Aleksye's address. SMART goal Aleksey will have access [...] - Care Plan Visit Details Visit Type -TIRE SETTER - INITIAL EV ALUATION Discipline -Medical Social Work Problems Problem Description Start Date Status Goals Interve ntions TIRE SETTER Disciplines: Soil Analyst TIRE SETTER 08/08/2023 Active 1 goal linked to scheduled/documente d intervention 3 goal interventions scheduled/documented in this visit Goals Goal Associated Problem Outcome Goal Met? Visit Notes TIRE SETTER Description: 1. Patient will demonstrate motivation toward [...] needs. within 3 visits 5. Patient centered senior living goal: Aleksey will have access to in-home help. TIRE SETTER No Interventions Intervention Associated Problem/Goal Status Variance Visit Notes TIRE SETTER Pain Problem:TIRE SETTER Goal:TIRE SETTER Completed Is the patient in physical pain or do they have other symptoms to be reported to the case consultant? no. Notified N/A. TIRE SETTER In-Home Services Description: Educate/ explore/ facilitate in home services. Problem:TIRE SETTER Goal:TIRE SETTER Completed In home services facilitated call to [facility] regarding a referral for Dept on Aging homemaker service. TIRE SETTER Transportation Needs Description: Educate/ explore/ facilitate transportation assistance. Problem:TIRE SETTER Goal:TIRE SETTER Completed Transportation assistance provided call to [facility] [employer] and requested an application be sent to Aleksey's address. Response pending. documented in this encounter Care Teams Safety Deposit Supervisor Relationship Specialty Start Date End Date Jorge Espinosa PA [address] [place] [address] PCP - General Physician Money Market Dealer 04/11/23 Antwon Mirza MD [address] [place] [address] Consulting Physician Medical Oncology 05/04/23 Roland Patel MD [address] [place] [address] Consulting Physician Radiation Oncology 05/04/23 documented as of this encounter
--- OUTSIDE RECORDS SUMMARY | 2024-02-15 13:36 | XMS_ITS | Encounter Summary ---
Author Organization [facility] Address [address] [facility] [address] Phone Care Team Providers Care Talent Buyer Name Role Phone Jorge Espinosa Primary Care Provider [phone] Antwon Mirza MD Unavailable [phone] Roland Patel MD Unavailable [phone] Reason for Visit * Auth/Cert (Routine) Specialty Diagnoses / Procedures Referred By Contac t Referred To Contact Referral ID Status Reason Start Date Expiration Date Visits Re quested Visits Authorized [id number] Encounter Details Date Type Department Care Team (Late st Contact Info) Description 07/19/2023 11:30 AM CDT [facility] [address] [place] [address] Gabby Diamond OTA [place] OT - HOME VISIT Social History Tobacco Use Types Packs/Day Years Used Date Smoking Tobacco: Every Day Cigarettes 0.5 50.9 Started: 1974 Smokeless Tobacco: Never Alcohol Use Standard Drinks/Week Comments Yes 0 (1 standard drink = 0.6 oz pure alcohol) Occasionally, never a regular drinker Sex and Gender Information Value Date Recorded Sex Assigned at Not on file 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 Patient Centered Snf Goal: safely get in the tub/shower Target [...] every and Radiotherapy Tuesday through Tuesday at [facility] cancer, and has had a 10 [...] of DME with good understanding of safety [id number]. Skill provided to improve this function consisted [...] ongoing documented in this encounter Care Teams Talent Buyer Relationship Specialty Start Date End Date Jorge Espinosa PA [address] [place] [address] PCP - General Physician Chief Of Surgery 04/11/23 Antwon Mirza MD [address] [place] [address] Consulting Physician Medical Oncology 05/04/23 Roland Patel MD [address] [place] [address] Consulting Physician Radiation Oncology 05/04/23 documented as of this encounter
--- OUTSIDE RECORDS SUMMARY | 2024-02-15 13:36 | XMS_ITS | Encounter Summary ---
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
--- OUTSIDE RECORDS SUMMARY | 2024-02-15 13:36 | XMS_ITS | Encounter Summary ---
Author Organization [facility] Address [address] 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 USION OPERATOR documented in this encounter Plan of Treatment [...] MODEL Reference Point Dosage Given to Date [id number] Gy ARIA RO MODEL Reference Point Session Dosage Given [id number] Gy ARIA RO MODEL Plan ID [id number] [...] F inal Result THEA AVALOS MODEL [address] [place] [address] documented in this encounter Visit Diagnoses Diagnosis Oropharyngeal cancer (HCC)- Primary Malignant neoplasm of oropharynx, unspecified site documented in this encounter Care Teams Business Machine Operator Relationship Specialty Start Date End Date Jorge Espinosa PA [address] [place] [address] PCP - General Physician Motors And Controls Tester 04/11/23 Antwon Mirza MD [address] [place] [address] Consulting Physician Medical Oncology 05/04/23 Roland Patel MD [address] [place] [address] Consulting Physician Radiation Oncology 05/04/23 documented as of this encounter
--- OUTSIDE RECORDS SUMMARY | 2024-02-15 13:36 | XMS_ITS | Encounter Summary ---
Author Organization [facility] Address [address] [place] [address] Phone Care Team Providers Care Paper Folding Machine Operator Name Role Phone Jorge Espinosa Primary Care Provider [phone] Antwon Mirza MD Unavailable [phone] Roland Patel MD Unavailable [phone] Reason for Visit * Auth/Cert (Routine) Specialty Diagnoses / Procedures Referred By Contac t Referred To Contact Referral ID Status Reason Start Date Expiration Date Visits Re quested Visits Authorized [id number] 02 19 Encounter Details Date Type Department Care Team (Latest Contact Info) Description 07/18/2023 10:30 AM CDT Home Care Visit [facility] [address] [place] [address] Joaquin Dorsey, RN [place] SN - PRIORITY [...] on file 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
--- OUTSIDE RECORDS SUMMARY | 2024-02-15 13:36 | XMS_ITS | Encounter Summary ---
Author Organization [facility] Address [address] [place] [address] Phone Care Team Providers Care Supervisor Abattoir Name Role Phone Jorge Espinosa Primary Care Provider [phone] Antwon Mirza MD Unavailable [phone] Roland Patel MD Unavailable [phone] Reason for Visit * Episode Based Medications (Routine) - Authorized Specialty Diagnoses / Procedures Referred By Contac t Referred To Contact Diagnoses Oropharyngeal cancer (HCC) Antwon Mirza MD [address] [place] [address] Phone: tel: fax: [facility] Oncology Services [address] [place] [address] Phone: tel: fax: Referral ID Status Reason Start Date Expiration Date V isits Requested Visits Authorized [id number] Authorized 05/09/2023 1 24 Encounter Details Date Type Department Care Team (Latest Contact Info) Description 07/07/2023 1:30 PM CDT Clinical Support [facility] Oncology Services [address] [place] [address] Antwon Mirza MD [address] [place] [address] Oropharyngeal cancer (HCC) (Primary Dx) [...] on file 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
--- OUTSIDE RECORDS SUMMARY | 2024-02-15 13:36 | XMS_ITS | Encounter Summary ---
Author Organization [facility] Address [address] [facility] [place] [address] Phone Care Team Providers Care Financial Adviser Name Role Phone Jorge Espinosa Primary Care Provider [phone] Antwon Mirza MD Unavailable [phone] Roland Patel MD Unavailable [phone] Reason for Visit * Auth/Cert (Routine) Specialty Diagnoses / Procedures Referred By Contac t Referred To Contact Referral ID Status Reason Start Date Expiration Date Visits Re quested Visits Authorized [id number] 02 19 Encounter Details Date Type Department Care Team (Late st Contact Info) Description 07/21/2023 9:30 AM CDT [facility] [address] [place] [address] Daniela Rodriguez, SNAG GRINDER-SPEECH LANGUAGE PATHOLOGIST [place] SNAG GRINDER - INITIAL EVALUATION Social History Tobacco Use Types Packs/Day Years Used Date Smoking Tobacco: Every Day Cigarettes 0.5 50.9 Started: 1974 Smokeless Tobacco: Never Alcohol Use Standard Drinks/Week Comments Yes 0 (1 standard drink = 0.6 oz pure alcohol) Occasionally, never a regular drinker Sex and Gender Information Value Date Recorded Sex Assigned at Not on file 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
--- OUTSIDE RECORDS SUMMARY | 2024-02-15 13:36 | XMS_ITS | Encounter Summary ---
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
--- OUTSIDE RECORDS SUMMARY | 2024-02-15 13:36 | XMS_ITS | Encounter Summary ---
Author Organization [facility] Address [address] [facility] [place] [address] Phone Care Team Providers Care Power Plant Operator Name Role Phone Jorge Espinosa Primary Care Provider [phone] Antwon Mirza MD Unavailable [phone] Roland Patel MD Unavailable [phone] Reason for Visit * Auth/Cert (Routine) Specialty Diagnoses / Procedures Referred By Contac t Referred To Contact Referral ID Status Reason Start Date Expiration Date Visits Re quested Visits Authorized [id number] 02 19 Encounter Details Date Type Department Care Team (Latest Contact Info) Description 07/13/2023 9:30 AM CDT Home Care Visit [facility] [address] [place] [address] Joaquin Dorsey, RN [place] SN - PRIORITY [...] on file 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 Gender Identity Not on file Sexual [...] Type -SN - Priority Vi sit Discipline -Long-Term Problems Problem Description Start Date Status Goals Interve ntions CANCER Disciplines: Long-Term Cancer 07/09/2023 Active 1 goal linked to scheduled/documen yoselin intervention 1 goal intervention scheduled/document ed in this visit PAIN-MANAGEMENT /EDUCATION Disciplines: Skilled Clinicians 07/09/2023 Active 1 goal linked to scheduled/documen yoselin intervention 1 goal intervention scheduled/document ed in this visit SN GENERAL ORDERS Disciplines: Long-Term SN General Orders 07/09/2023 Active 1 goal linked to scheduled/documen yoselin intervention 1 goal intervention scheduled/document ed in this visit DIET EDUCATION Disciplines: Long-Term Diet Education 07/09/2023 Active 1 goal linked [...] understanding. documented in this encounter Care Teams Power Plant Operator Relationship Specialty Start Date End Date Jorge Espinosa PA [facility] [place] [address] PCP - General Physician Telesales Advisor 04/11/23 Antwon Mirza MD [address] [place] [address] Consulting Physician Medical Oncology 05/04/23 Roland Patel MD [address] [place] [address] Consulting Physician Radiation Oncology 05/04/23 documented as of this encounter
--- OUTSIDE RECORDS SUMMARY | 2024-02-15 13:36 | XMS_ITS | Encounter Summary ---
Author Organization [facility] Address [address] [facility] 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 Gender Identity Not on file Sexual Orientation Not on file documented as of this encounter Plan of Treatment Not on file documented as of this encounter Visit Diagnoses Not on filedocumented in this encounter Care Teams Principal Cyber Engineer Relationship Specialty Start Date End Date Jorge Espinosa PA [address] [place] [address] PCP - General Physician Certified Orthotist/Pedorthist 04/11/23 Antwon Mirza MD [address] [place] [address] Consulting Physician Medical Oncology 05/04/23 Roland Patel MD [address] [place] [address] Consulting Physician Radiation Oncology 05/04/23 documented as of this encounter
--- OUTSIDE RECORDS SUMMARY | 2024-02-15 13:36 | XMS_ITS | Encounter Summary ---
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 Gender Identity Not on file Sexual Orientation Not on file documented as of this encounter Plan of Treatment Not on file documented as of this encounter Visit Diagnoses Not on filedocumented in this encounter Care Teams Maintenance And Utilities Supervisor Relationship Specialty Start Date End Date Jorge Espinosa PA [address] [place] [address] PCP - General Physician Therapeutic Radiologist 04/11/23 Antwon Mirza MD [address] [place] [address] Consulting Physician Medical Oncology 05/04/23 Roland Patel MD [address] [place] [address] Consulting Physician Radiation Oncology 05/04/23 documented as of this encounter
--- OUTSIDE RECORDS SUMMARY | 2024-02-15 13:36 | XMS_ITS | Encounter Summary ---
Author Organization [facility] Address [address] [facility] [place] [address] Phone Care Team Providers Care Advertising Dispatch Clerk Name Role Phone Jorge Espinosa Primary Care Provider [phone] Antwon Mirza MD Unavailable [phone] Roland Patel MD Unavailable [phone] Reason for Visit * Auth/Cert (Routine) Specialty Diagnoses / Procedures Referred By Contac t Referred To Contact Referral ID Status Reason Start Date Expiration Date Visits Re quested Visits Authorized [id number] 02 19 Encounter Details Date Type Department Care Team (Late st Contact Info) Description 07/15/2023 9:00 AM CDT [facility] [address] [place] [address] Rosalba Neff OT OT - INITIAL EVALUATION [...] on file 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 documented in this encounter Care Teams Advertising Dispatch Clerk Relationship Specialty Start Date End Date Jorge Espinosa PA [address] [place] [address] PCP - General Physician Hand Silvering Supervisor 04/11/23 Antwon Mirza MD [address] [place] [address] Consulting Physician Medical Oncology 05/04/23 Roland Patel MD [address] [place] [address] Consulting Physician Radiation Oncology 05/04/23 documented as of this encounter
--- OUTSIDE RECORDS SUMMARY | 2024-02-15 13:36 | XMS_ITS | Encounter Summary ---
Author Organization [facility] Address [address] [facility] [place] [address] Phone Care Team Providers Care Veterinary Practice Manager Name Role Phone Jorge Espinosa Primary Care Provider [phone] Antwon Mirza MD Unavailable [phone] Roland Patel MD Unavailable [phone] Reason for Visit * Auth/Cert (Routine) Specialty Diagnoses / Procedures Referred By Contac t Referred To Contact Referral ID Status Reason Start Date Expiration Date Visits Re quested Visits Authorized [id number] 02 19 Encounter Details Date Type Department Care Team (Late st Contact Info) Description 07/19/2023 Home Care Visit [address] [address] Gabby Diamond OTA [place] TELEPHONE ENCOUNTER Social History Tobacco Use Types Packs/Day Years Used Date Smoking Tobacco: Every Day Cigarettes 0.5 50.9 Started: 1974 Smokeless Tobacco: Never Alcohol Use Standard Drinks/Week Comments Yes 0 (1 standard drink = 0.6 oz pure alcohol) Occasionally, never a regular drinker Sex and Gender Information Value Date Recorded Sex Assigned at Not on file 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 documented in this encounter Care Teams Veterinary Practice Manager Relationship Specialty Start Date End Date Jorge Espinosa PA [address] [place] [address] PCP - General Physician Ultimate Hoops Trainer 04/11/23 Antwon Mirza MD [address] [place] [address] Consulting Physician Medical Oncology 05/04/23 Roland Patel MD [address] [place] [address] Consulting Physician Radiation Oncology 05/04/23 documented as of this encounter
--- OUTSIDE RECORDS SUMMARY | 2024-02-15 13:36 | XMS_ITS | Encounter Summary ---
Author Organization [facility] Address [address] [place] [place] [address] Phone Care Team Providers Care Advertising Vice President Name Role Phone Jorge Espinosa Primary Care Provider +[phone] Antwon Mirza MD Unavailable [phone] Roland Patel MD Unavailable [phone] Reason for Visit * Auth/Cert (Routine) Specialty Diagnoses / Procedures Referred By Contac t Referred To Contact Referral ID Status Reason Start Date Expiration Date Visits Re quested Visits Authorized [id number] 1 13 Encounter Details Date Type Department Care Team (Late st Contact Info) Description 07/22/2023 10:30 AM CDT Home Care Visit [facility] [address] [place] [address] Gabby Diamond OTA [place] OT - HOME VISIT Social History Tobacco Use Types Packs/Day Years Used Date Smoking Tobacco: Every Day Cigarettes 0.5 50.9 Started: 1974 Smokeless Tobacco: Never Alcohol Use Standard Drinks/Week Comments Yes 0 (1 standard drink = 0.6 oz pure alcohol) Occasionally, never a regular drinker Sex and Gender Information Value Date Recorded Sex Assigned at Not on file 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 Patient Centered Halfway Goal: safely get in the tub/shower [employer] [...] every and Radiotherapy Tuesday through Tuesday at [facility] cancer, and has had a 10 [...] ongoing documented in this encounter Care Teams Advertising Vice President Relationship Specialty Start Date End Date Jorge Espinosa PA [address] [place] [address] PCP - General Physician Abatement Worker 04/11/23 Antwon Mirza MD [address] [place] [address] Consulting Physician Medical Oncology 05/04/23 Roland Patel MD [address] [place] [address] Consulting Physician Radiation Oncology 05/04/23 documented as of this encounter
--- OUTSIDE RECORDS SUMMARY | 2024-02-15 13:36 | XMS_ITS | Encounter Summary ---
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
--- OUTSIDE RECORDS SUMMARY | 2024-02-15 13:36 | XMS_ITS | Encounter Summary ---
Author Organization [facility] Address [address] [facility] [place] [address] Phone Care Team Providers Care Banbury Operator Name Role Phone Jorge Espinosa Primary Care Provider [phone] Antwon Mirza MD Unavailable [phone] Roland Patel MD Unavailable [phone] Reason for Visit * Auth/Cert (Routine) Specialty Diagnoses / Procedures Referred By Contac t Referred To Contact Referral ID Status Reason Start Date Expiration Date Visits Re quested Visits Authorized [id number] 02 19 Encounter Details Date Type Department Care Team (Latest Contact Info) Description 07/09/2023 1:00 PM CDT Home Care Visit [facility] [address] [place] [address] Zunilda Barger, RN [place] SN - OASIS [...] on file 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 Gender Identity Not on file Sexual Orientation [...] -SN - OASIS START OF CARE Discipline -Nursing Home Problems Problem Description Start Date Status Goals Interve ntions CANCER Disciplines: Nursing Home Cancer 07/09/2023 Active 1 goal linked to scheduled/documen yoselin intervention 1 goal intervention scheduled/document ed in this visit PAIN-MANAGEMENT /EDUCATION Disciplines: Skilled Clinicians 07/09/2023 Active 1 goal linked to scheduled/documen yoselin intervention 1 goal intervention scheduled/document ed in this visit SAFETY/PREVENTI ON EDUCATION Disciplines: Nursing Home Safety/Preventio n Education 07/09/2023 Active - 1 problem intervention scheduled/document ed in this visit SN GENERAL ORDERS Disciplines: Nursing Home SN General Orders 07/09/2023 Active 1 goal linked to scheduled/documen yoselin intervention 1 goal intervention scheduled/document ed in this visit DIET EDUCATION Disciplines: Nursing Home Diet Education 07/09/2023 Active 1 goal linked [...] understanding. documented in this encounter Care Teams Banbury Operator Relationship Specialty Start Date End Date Jorge Espinosa PA [address] [place] [address] PCP - General Physician Transitions Manager 04/11/23 Antwon Mirza MD [address] [place] [address] Consulting Physician Medical Oncology 05/04/23 Roland Patel MD [address] [place] [address] Consulting Physician Radiation Oncology 05/04/23 documented as of this encounter
--- OUTSIDE RECORDS SUMMARY | 2024-02-15 13:36 | XMS_ITS | Encounter Summary ---
Author Organization [facility] Address [address] [facility] [place] [address] Phone Care Team Providers Care Pad Machine Operator Name Role Phone Jorge Espinosa Primary Care Provider [phone] [place] Mirza MD Unavailable [phone] Roland Patel MD Unavailable [phone] Reason for Visit * Auth/Cert (Routine) Specialty Diagnoses / Procedures Referred By Contac t Referred To Contact Referral ID Status Reason Start Date Expiration Date Visits Re quested Visits Authorized [id number] 02 19 Encounter Details Date Type Department Care Team (Latest Contact Info) Description 07/15/2023 10:30 AM CDT Home Care Visit [facility] [address] [place] [address] Joaquin Dorsey, RN [place] SN - PRIORITY [...] on file 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 Gender Identity Not on file Sexual Orientation [...] Type -SN - Priority Vi sit Discipline -Halfway Problems Problem Description Start Date Status Goals Interve ntions CANCER Disciplines: Halfway Cancer 07/09/2023 Active 1 goal linked to [...] Scheduled documented in this encounter Care Teams Pad Machine Operator Relationship Specialty Start Date End Date Jorge Espinosa PA [address] [place] [address] PCP - General Physician Math And Science Division Chair 04/11/23 Antwon Mirza MD [address] [place] [address] Consulting Physician Medical Oncology 05/04/23 Roland Patel MD [address] [place] [address] Consulting Physician Radiation Oncology 05/04/23 documented as of this encounter
--- OUTSIDE RECORDS SUMMARY | 2024-02-15 13:36 | XMS_ITS | Encounter Summary ---
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
--- OUTSIDE RECORDS SUMMARY | 2024-02-15 13:36 | XMS_ITS | Encounter Summary ---
Author Organization [facility] Address [address] [facility] 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 Gender Identity Not on file Sexual [...] MODEL Reference Point Dosage Given to Date [id number] Gy ARIA RO MODEL Reference Point Session Dosage Given [id number] Gy ARIA RO MODEL Plan ID [id number] [...] F inal Result ARIA RO MODEL [address] [facility] [place] [address] documented in this encounter Visit Diagnoses Diagnosis Oropharyngeal cancer (HCC)- Primary Malignant neoplasm of oropharynx, unspecified site documented in this encounter Care Teams Automatic Data Processing Planner Relationship Specialty Start Date End Date Jorge Espinosa PA [address] [place] [address] PCP - General Physician Roundhouse Worker 04/11/23 Antwon Mirza MD [address] [place] [address] Consulting Physician Medical Oncology 05/04/23 Roland Patel MD [address] [place] [address] Consulting Physician Radiation Oncology 05/04/23 documented as of this encounter
--- OUTSIDE RECORDS SUMMARY | 2024-02-15 13:36 | XMS_ITS | Encounter Summary ---
Author Organization [facility] Address [address] [facility] [place] [place] [address] Phone Care Team Providers Care Outpatient Dietitian Name Role Phone Jorge Espinosa Primary Care Provider Antwon Mirza MD Unavailable [phone] Roland Patel MD Unavailable Encounter Details Date Type Department Care Team (Late st Contact Info) Description 07/06/2023 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 Gender Identity Not on file Sexual Orientation Not on file documented as of this encounter Miscellaneous Notes * Allie - Genny Go, LANE - 07/06/2023 12:57 PM CDT 07/06/2023-weekly wt=92# 6oz (10% weight loss since start of treatment); has missed past 6 treatmentdays; 06/23/2023-Lo=095, K=3.0, Mg=2.0, BS=92, albumin=3.0, BUN=7, EGFR>60; Pt [...] on filedocumented in this encounter Care Teams Outpatient Dietitian Relationship Specialty Start Date End Date Jorge Espinosa PA [address] [place] [address] PCP - General Physician Sales Consultant Insurance 04/11/23 Antwon Mirza MD [address] [place] [address] Consulting Physician Medical Oncology 05/04/23 Roland Patel MD [address] [place] [address] Consulting Physician Radiation Oncology 05/04/23 documented as of this encounter
--- OUTSIDE RECORDS SUMMARY | 2024-02-15 13:36 | XMS_ITS | Encounter Summary ---
Author Organization [facility] Address [address] [facility] 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 Alessandra JONES did contact [facility] today; there is possibility [...] mL/hr documented in this encounter Care Teams Tree And Shrub Technician Relationship Specialty Start Date End Date Jorge Espinosa PA [address] [place] [address] PCP - General Physician Purification Operator 04/11/23 Antwon Mirza MD [address] [place] [address] Consulting Physician Medical Oncology 05/04/23 Roland Patel MD [address] [place] [address] Consulting Physician Radiation Oncology 05/04/23 documented as of this encounter
--- OUTSIDE RECORDS SUMMARY | 2024-02-15 13:36 | XMS_ITS | Encounter Summary ---
Author Organization [facility] Address [address] [facility] [place] [address] Phone Care Team Providers Care Time Piece Repairer Name Role Phone Jorge Espinosa Primary Care Provider [phone] Antwon Mirza MD Unavailable [phone] Roland Patel MD Unavailable [phone] Reason for Visit * Reason Comments Cancer Oropharyngeal squamo us cell carcinoma, p16+. 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 Gender Identity Not on file Sexual [...] MD - 07/07/2023 1:15 PM CDT [facility] RADIATION ONCOLOGY ON TREATMENT VISIT Patient [...] Espinosa PA as PCP - General (Physician Rn Hospital) Antwon Mirza MD as Consulting Physician (Medical [...] health documented in this encounter Care Teams Time Piece Repairer Relationship Specialty Start Date End Date Jorge Espinosa PA [address] [place] [address] PCP - General Physician Rn Hospital 04/11/23 Antwon Mirza MD [address] [place] [address] Consulting Physician Medical Oncology 05/04/23 Roland Patel MD [address] [place] [address] Consulting Physician Radiation Oncology 05/04/23 documented as of this encounter
--- OUTSIDE RECORDS SUMMARY | 2024-02-15 13:36 | XMS_ITS | Encounter Summary ---
Author Organization [facility] Address [address] [facility] [address] Phone Care Team Providers Care Differential Repairer Name Role Phone Jorge Espinosa Primary Care Provider [phone] Antwon Mirza MD Unavailable [phone] Roland Patel MD Unavailable [phone] Reason for Visit * Auth/Cert (Routine) Specialty Diagnoses / Procedures Referred By Contac t Referred To Contact Referral ID Status Reason Start Date Expiration Date Visits Re quested Visits Authorized [id number] 02 19 Encounter Details Date Type Department Care Team (Late st Contact Info) Description 07/19/2023 9:45 AM CDT [facility] [address] [place] [address] Paula Gallegos, PT PT - INITIAL EVALUATION [...] on file 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
--- OUTSIDE RECORDS SUMMARY | 2024-02-15 13:36 | XMS_ITS | Encounter Summary ---
Author Organization [facility] Address [address] [facility] 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 Gender Identity Not on file Sexual Orientation [...] MODEL Reference Point Dosage Given to Date [id number] Gy ARIA RO MODEL Reference Point Session Dosage Given [id number] Gy ARIA RO MODEL Plan ID [id number] [...] ORDERABLES F inal Result Performing Organization Address City/State/[facility] Co de Phone Number ARIA RO MODEL [address] [place] [address] documented in this encounter Visit Diagnoses Not on filedocumented in this encounter Care Teams Inkjet Operator Relationship Specialty Start Date End Date Jorge Espinosa PA [address] [place] [address] PCP - General Physician Shoe Sprayer 04/11/23 Antwon Mirza MD [address] [place] [address] Consulting Physician Medical Oncology 05/04/23 Roland Patel MD [address] [place] [address] Consulting Physician Radiation Oncology 05/04/23 documented as of this encounter
--- OUTSIDE RECORDS SUMMARY | 2024-02-15 13:36 | XMS_ITS | Encounter Summary ---
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
--- OUTSIDE RECORDS SUMMARY | 2024-02-15 13:36 | XMS_ITS | Encounter Summary ---
Author Organization [facility] Address [address] [facility] [address] Phone Care Team Providers Care Belt Polisher Name Role Phone Jorge Espinosa Primary Care Provider [phone] Antwon Mirza MD Unavailable [phone] Roland Patel MD Unavailable [phone] Reason for Visit * Auth/Cert (Routine) Specialty Diagnoses / Procedures Referred By Contac t Referred To Contact Referral ID Status Reason Start Date Expiration Date Visits Re quested Visits Authorized [id number] 02 19 Encounter Details Date Type Department Care Team (Late st Contact Info) Description 07/19/2023 Home Care Visit [facility] [address] [place] [address] Amy Swift, PUBLIC EMPLOYMENT MEDIATOR [place] TELEPHONE ENCOUNTER Social History Tobacco Use Types Packs/Day Years Used Date Smoking Tobacco: Every Day Cigarettes 0.5 50.9 Started: 1974 Smokeless Tobacco: Never Alcohol Use Standard Drinks/Week Comments Yes 0 (1 standard drink = 0.6 oz pure alcohol) Occasionally, never a regular drinker Sex and Gender Information Value Date Recorded Sex Assigned at Not on file 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
--- OUTSIDE RECORDS SUMMARY | 2024-02-15 13:36 | XMS_ITS | Encounter Summary ---
Author Organization [facility] Address [address] [facility] [place] [address] Phone Care Team Providers Care Reference Librarian Name Role Phone Jorge Espinosa Primary Care Provider [phone] Antwon Mirza MD Unavailable [phone] Roland Patel MD Unavailable [phone] Encounter Details Date Type Department Care Team (Late st Contact Info) Description 07/09/2023 Plan 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
--- OUTSIDE RECORDS SUMMARY | 2024-02-15 13:36 | XMS_ITS | Encounter Summary ---
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
--- OUTSIDE RECORDS SUMMARY | 2024-02-15 13:37 | XMS_ITS | Encounter Summary ---
Author Organization [facility] Address [address] [facility] [place] [address] Phone Care Team Providers Care Gate Cutter Name Role Phone Jorge Espinosa Primary Care Provider [phone] Antwon Mirza MD Unavailable Roland Patel MD Unavailable Encounter Details Date Type Department Care Team (Late st Contact Info) Description 06/16/2023 [facility] [address] [place] [address] Roland Patel MD [address] [place] [address] Social History Tobacco Use Types Packs/Day Years Used Date Smoking Tobacco: Every Day Cigarettes 0.5 50.9 Started: 1974 Smokeless Tobacco: Never Alcohol Use Standard Drinks/Week Comments Yes 0 (1 standard drink = 0.6 oz pure alcohol) Occasionally, never a regular drinker Sex and Gender Information Value Date Recorded Sex Assigned at Not on file 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 Gender Identity Not on file Sexual Orientation [...] loss, swallowing difficulties Labs noted: 06/08/23-albumin=3.1, BS=73, Ht=943, K=4.1, BUN=20, creatinine=0.56, EGFR>60, 06/01/23-Lh=499; 05/25/23-Zo=402; Meds noted: FeSO4, zofran, compazine Past Medical [...] Severe Triceps, Buccal, Orbital Muscle Loss Severe [place], Clavicle, Acromion, Patella, inner Thigh, Calf Fluid Accumulation None Noted Hand Deputy Court Strength Unable to Assess A minimum of [...] on filedocumented in this encounter Care Teams Gate Cutter Relationship Specialty Start Date End Date Jorge Espinosa PA [address] [place] [address] PCP - General Physician Hand Painter 04/11/23 Antwon Mirza MD [address] [place] [address] Consulting Physician Medical Oncology 05/04/23 Roland Patel MD [address] [place] [address] Consulting Physician Radiation Oncology 05/04/23 documented as of this encounter
--- OUTSIDE RECORDS SUMMARY | 2024-02-15 13:37 | XMS_ITS | Encounter Summary ---
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 Gender Identity Not on file Sexual Orientation Not on file documented as of this encounter Plan of Treatment Not on file documented as of this encounter Visit Diagnoses Not on filedocumented in this encounter Care Teams Forest Law And Policy Professor Relationship Specialty Start Date End Date Jorge Espinosa PA [address] [place] [address] PCP - General Physician Mainspring Winder And Oiler 04/11/23 Antwon Mirza MD [address] [place] [address] Consulting Physician Medical Oncology 05/04/23 Roland Patel MD [address] [place] [address] Consulting Physician Radiation Oncology 05/04/23 documented as of this encounter
--- OUTSIDE RECORDS SUMMARY | 2024-02-15 13:37 | XMS_ITS | Encounter Summary ---
Author Organization [facility] Address [address] [facility] 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 Gender Identity Not on file Sexual [...] MODEL Reference Point Dosage Given to Date [id number] Gy ARIA RO MODEL Reference Point Session Dosage Given [id number] Gy ARIA RO MODEL Plan ID [id number] [...] ORDERABLES F inal Result Performing Organization Address City/State/[facility] Co de Phone Number ARIA RO MODEL [address] [place] [address] documented in this encounter Visit Diagnoses Not on filedocumented in this encounter Care Teams Discharge Rn Relationship Specialty Start Date End Date Jorge Espinosa PA [address] [place] [address] PCP - General Physician Trust Administrative Assistant 04/11/23 Antwon Mirza MD [address] [place] [address] Consulting Physician Medical Oncology 05/04/23 Roland Patel MD [address] [place] [address] Consulting Physician Radiation Oncology 05/04/23 documented as of this encounter
--- OUTSIDE RECORDS SUMMARY | 2024-02-15 13:37 | XMS_ITS | Encounter Summary ---
Author Organization [facility] Address [address] 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 Gender Identity Not on file Sexual Orientation [...] 12.00 10(3)/mcL 06/08/2023 2:05 PM CDT [facility] RBC 4.25(L) 4.40 - 5.80 10(6)/mcL 06/08/2023 2:05 PM CDT [facility] HEMOGLOBIN (HGB) 11.4(L) 13.0 - 16.5 g/dL 06/08/2023 2:05 PM CDT [facility] HEMATOCRIT (HCT) 36.1(L) 38.0 - 50.0 % 06/08/2023 2:05 PM CDT [facility] MCV 84.9 82.0 - 96.0 fL 06/08/2023 2:05 PM CDT [facility] MCH 26.8 26.0 - 32.0 pg 06/08/2023 2:05 PM CDT [facility] MCHC 31.6 31.0 - 36.0 g/dL 06/08/2023 2:05 PM [facility] PL[facility] 362 140 - 440 10(3)/mcL 06/08/2023 2:[address] [facility] RDW 15.5 11.8 - 15.5 % 06/08/2023 2:[address] [facility] MPV 9.3 8.0 - 12.6 fL 06/08/2023 2:[address] [facility] NEUTROPHILS 66.3 40.0 - 68.0 % 06/08/2023 2:[address] [facility] LYMPHOCYTES 14.0(L) 19.0 - 49.0 % 06/08/2023 2:[address] [facility] MONOCYTES 17.3(H) 3.0 - 13.0 % 06/08/2023 2:05 PM CDT [facility] EOSINOPHILS 1.4 0.0 - 8.0 % 06/08/2023 2:05 PM CDT [facility] BASOPHILS 1.0 0.0 - 1.0 % 06/08/2023 2:05 PM CDT [facility] ABSOLUTE NEUTROPHILS 2.75 1.40 - 5.30 10(3)/mcL 06/08/2023 2:[address] [facility] ABSOLUTE LYMPHOCYTES 0.58(L) 0.90 - 3.30 10(3)/mcL 06/08/2023 2:05 PM CDT [facility] ABSOLUTE MONOCYTES 0.72 0.10 - 0.90 10(3)/mcL 06/08/2023 2:05 PM CDT [facility] ABSOLUTE EOSINOPHIL 0.06 0.00 - 0.50 10(3)/mcL 06/08/2023 2:05 PM CDT [facility] ABSOLUTE BASOPHILS 0.04 0.00 - 0.10 10(3)/mcL 06/08/2023 2:05 PM CDT [facility] NRBC PER 100 WBC 0 06/08/19 2:05 PM CDT [facility] Blood Venipuncture / Unknown 06/08/2023 1:20 PM CDT 06/08/2023 1:20 PM CDT us Antwon Mirza MD HEMATOLOGY ORDERABLES Fi nal Result [facility] [address] [place] [address] * (ABNORMAL) CMP (COMPREHENSIVE METABOLIC PANEL) (06/08/2023 1:20 PM CDT) SODIUM 135(L) 136 - 145 mmol/L 06/08/2023 2:26 PM CDT [facility] POTASSIUM 4.1 3.5 - 5.1 mmol/L 06/08/2023 2:26 PM CDT [facility] CHLORIDE 99 98 - 107 mmol/L 06/08/2023 2:26 PM CDT [facility] CO2, VENOUS 30 22 - 30 mmol/L 06/08/2023 2:26 PM CDT [facility] ANION GAP 10.1 <18.0 mmol/L 06/08/2023 2:26 PM CDT [facility] GLUCOSE 73 70 - 99 mg/dL 06/08/2023 2:26 PM CDT [facility] BUN 20 8 - 26 mg/dL 06/08/2023 2:26 PM CDT [facility] CREATININE, BLOOD 0.56(L) 0.70 - 1.30 mg/dL 06/08/2023 2:26 PM CDT [facility] BUN/CREATININE RATIO 36(H) 12 - 20 ratio 06/08/2023 2:26 PM CDT [facility] TOTAL PROTEIN 7.1 6.3 - 8.2 g/dL 06/08/2023 2:26 PM CDT [facility] ALBUMIN 3.1(L) 3.5 - 5.0 g/dL 06/08/2023 2:26 PM CDT [facility] A/G RATIO 0.8(L) 1.0 - 2.2 06/08/2023 2:26 PM CDT [facility] CALCIUM 8.9 8.7 - 10.5 mg/dL 06/08/2023 2:26 PM CDT [facility] T BILI 0.3 0.2 - 1.2 mg/dL 06/08/2023 2:26 PM CDT [facility] SGOT (AST) 78(H) 5 - 34 U/L 06/08/2023 2:26 PM T [facility] SGPT (ALT) 61(H) 0 - 55 U/L 06/08/2023 2:26 PM T [facility] ALKALINE PHOSPHATASE 79 40 - 150 U/L 06/08/2023 2:26 PM T [facility] IS THE PATIENT REQUIRED TO BE FASTING? No 06/08/2023 2:26 PM CDT [facility] GFR, ESTIMATED >60 >=60 06/08/2023 2:26 PM CDT [facility] Comment: Creatinine Clearance is the preferred criteria for selecting drug dose adjustments in renally impaired patients. ??The GFR is provided as additional pertinent clinical information. GFR is reported in mL/min/1.73 sq m. Calculation based on the Chronic Kidney Disease Epidemiology Collaboration (CKD- EPI) equation refit without adjustment for race. GFR, EST. >60 >=60 024 2:26 PM CDT [facility] GFR, EST. NONAFRICAN >60 >=60 06/08/2023 2:26 PM CDT [facility] Blood Venipuncture / Unknown 06/08/2023 1:20 PM CDT 06/08/2023 1:20 PM CDT us Antwon Mirza MD CHEMISTRY ORDERABLES Fin al Result [facility] [address] [place] [address] documented in this encounter Visit Diagnoses Diagnosis Oropharyngeal cancer (HCC) Malignant neoplasm of oropharynx, unspecified site documented in this encounter Care Teams Care Transport Nurse Relationship Specialty Start Date End Date Jorge Espinosa PA [address] [place] [address] PCP - General Physician Clinical Implementation Specialist 04/11/23 Antwon Mirza MD [address] [place] [address] Consulting Physician Medical Oncology 05/04/23 Roland Patel MD [address] [place] [address] Consulting Physician Radiation Oncology 05/04/23 documented as of this encounter
--- OUTSIDE RECORDS SUMMARY | 2024-02-15 13:37 | XMS_ITS | Encounter Summary ---
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
--- OUTSIDE RECORDS SUMMARY | 2024-02-15 13:37 | XMS_ITS | Encounter Summary ---
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
--- OUTSIDE RECORDS SUMMARY | 2024-02-15 13:37 | XMS_ITS | Encounter Summary ---
Author Organization [facility] Address [address] [facility] [address] [facility] 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 Gender Identity Not on file Sexual [...] MODEL Reference Point Dosage Given to Date [id number] Gy ARIA RO MODEL Reference Point Session Dosage Given [id number] Gy ARIA RO MODEL Plan ID [id number] [...] ORDERABLES F inal Result Performing Organization Address City/State/[place] Co de Phone Number ARIA RO MODEL [address] [place] [address] documented in this encounter Visit Diagnoses Not on filedocumented in this encounter Care Teams Forge Shop Machine Repairer Relationship Specialty Start Date End Date Jorge Espinosa PA [address] [place] [address] PCP - General Physician Funeral Director 04/11/23 Antwon Mirza MD [address] [place] [address] Consulting Physician Medical Oncology 05/04/23 Roland Patel MD [address] [place] [address] Consulting Physician Radiation Oncology 05/04/23 documented as of this encounter
--- OUTSIDE RECORDS SUMMARY | 2024-02-15 13:37 | XMS_ITS | Encounter Summary ---
Author Organization [facility] Address [address] [facility] [place] [address] Phone Care Team Providers Care Hydraulic Jack Adjuster Name Role Phone Jorge Espinosa Primary Care Provider [phone] Antwon Mirza MD Unavailable [phone] Roland Patel MD Unavailable [phone] Encounter Details Date Type Department Care Team (Late st Contact Info) Description 07/05/2023 Telephone [facility] Oncology Services [address] [place] [address] Lisa Burden, [place] Social History Tobacco Use Types Packs/Day Years Used Date Smoking Tobacco: Every Day Cigarettes 0.5 50.9 Started: 1974 Smokeless Tobacco: Never Alcohol Use Standard Drinks/Week Comments Yes 0 (1 standard drink = 0.6 oz pure alcohol) Occasionally, never a regular drinker Sex and Gender Information Value Date Recorded Sex Assigned at Not on file 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
--- OUTSIDE RECORDS SUMMARY | 2024-02-15 13:37 | XMS_ITS | Encounter Summary ---
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
--- OUTSIDE RECORDS SUMMARY | 2024-02-15 13:37 | XMS_ITS | Encounter Summary ---
Author Organization [facility] Address [address] [facility] 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
--- OUTSIDE RECORDS SUMMARY | 2024-02-15 13:37 | XMS_ITS | Encounter Summary ---
Author Organization [facility] Address [address] [facility] [place] [address] Phone Care Team Providers Care Asset Recovery Specialist Name Role Phone Jorge Espinosa Primary Care Provider [phone] Antwon Mirza MD Unavailable [phone] Roland Patel MD Unavailable Reason for Visit * Reason Comments Cancer Oropharyngeal squamo us cell carcinoma, p16+. 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 RADIATION ONCOLOGY ON TREATMENT VISIT Patient [...] Espinosa PA as PCP - General (Physician Title Insurance Sales Representative) Antwon Mirza MD as Consulting Physician (Medical [...] (HCC) documented in this encounter Care Teams Asset Recovery Specialist Relationship Specialty Start Date End Date Jorge Espinosa PA [address] [place] [address] PCP - General Physician Title Insurance Sales Representative 04/11/23 Antwon Mirza MD [address] [place] [address] Consulting Physician Medical Oncology 05/04/23 Roland Patel MD [address] [place] [address] Consulting Physician Radiation Oncology 05/04/23 documented as of this encounter
--- OUTSIDE RECORDS SUMMARY | 2024-02-15 13:37 | XMS_ITS | Encounter Summary ---
Author Organization [facility] Address [address] [place] [address] Phone Care Team Providers Care Marine Water Tender Name Role Phone Jorge Espinosa Primary Care Provider [phone] Antwon Mirza MD Unavailable [phone] Roland Patel MD Unavailable [phone] Encounter Details Date Type Department Care Team (Late st Contact Info) Description 06/07/2023 Telephone [facility] Oncology Services [address] [place] [address] Sandee Lira, [place] Social History Tobacco Use Types Packs/Day Years Used Date Smoking Tobacco: Every Day Cigarettes 0.5 50.9 Started: 1974 Smokeless Tobacco: Never Alcohol Use Standard Drinks/Week Comments Yes 0 (1 standard drink = 0.6 oz pure alcohol) Occasionally, never a regular drinker Sex and Gender Information Value Date Recorded Sex Assigned at Not on file 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
--- OUTSIDE RECORDS SUMMARY | 2024-02-15 13:37 | XMS_ITS | Encounter Summary ---
Author Organization [facility] Address [address] [facility] [place] [address] Phone Care Team Providers Care Public Service Officer Name Role Phone Jorge Espinosa Primary Care Provider [phone] Antwon Mirza MD Unavailable [phone] Roland Patel MD Unavailable [phone] Reason for Referral * Home Health Evaluation (Routine) - Closed Specialty Diagnoses / Procedures Referred By Contbisi t Referred To Contact Home Health Services Diagnoses Oropharyngeal cancer (HCC) Unintentional weight loss of more than 10% body weight within 6 months Cellulitis of abdominal wall Gillian Bailey PAC [address] [place] [address] Phone: tel: fax: [address] [address] Phone: tel: fax: Referral ID Status Reason Start Date Expiration Date Visits Re quested Visits Authorized [id number] Closed 07/06/2023 1 1 Reason for Visit * Reason Comments Follow-up Encounter Details Date Type Department Care Team (Late st Contact Info) Description 07/06/2023 1:15 PM CDT Office Visit 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 Aleksey recalls Niece voiced concerns roughly 12 months ago, as she was only seeing him few times per year. Patient recalls experiencing syncopal event prior to presenting to [facility] via [facility]. He recites prior to LOC he was experiencing hemoptysis with increase in blood expressed withcough as episode continued. He was transferred from [facility] to [facility] after CT neck showed large mass [...] for malignancy such as SCC involvingL parapharyngeal, funding analyst, submandibular, sublingual spaces with ossesous involvement of [...] time. Aleksey attempted to establish care with [facility], unfortunately out of network with [...] Surgery was while he was living in [place]. GASTROSTOMY TUBE PLACEMENT N/A 03/28/2023 Initial placement of percutaneous balloon assisted gastrostomy catheter with procedure at [facility]. GASTROSTOMY TUBE PLACEMENT N/A 03/29/2023 Percutaneous fluoroscopic pull type gastrostomy catheter placement after gastrostomy tube placed 03/28/2023 fell out overnight. Procedure at [facility]. LARYNGOSCOPY,DIRCT,OP,BIOPSY N/A 03/25/2023 Direct laryngoscopy and biopsy 03/25/2023 in the OR at [facility] confirming p16+ squamous cell carcinoma of the [...] HN_PRP Reference Point Dosage Given to Date [id number] Gy Reference Point Session Dosage Given 1.44967751 Gy Plan ID [id number] Plan Name Oropharynx [...] with involvement of the left nasopharynx, left funding analyst, submandibular, and sublingual spaces, left tonsillar fossa, [...] squamous cell carcinoma involving the left parapharyngeal, funding analyst, submandibular, and sublingual spaces with osseous involvement [...] I, or a nurse practitioner or physician???s first assistant working with me, had a [id number] encounter with him that meets the requirements [...] cancer (Describe what the RN, PT, or EQUITY RESEARCH ANALYST and other services will be doing in [...] Type Start Date End Date Comment Verified Training Technician Bee Venom Unknown 11-Apr-2023 Reactions: Unknown Ketty [...] (N/A, 03/25/2023); and Appendectomy (2018). Payor: MEDICAID [facility] / Plan: [facility] MEDICAID / Product Type: *No Product type* / The physician who will be the attending physician for ongoing home care services and who will sign the Plan of Care will be: MARC Joyce Advance Practice Provider Statement: I have personally had a [id number] encounter with Aleksey Godfrey Sr. and am [...] trunk documented in this encounter Care Teams Public Service Officer Relationship Specialty Start Date End Date Jorge Espinosa PA [address] [place] [address] PCP - General Physician Crusher Wet Ground Mica 04/11/23 Antwon Mirza MD [address] [place] [address] Consulting Physician Medical Oncology 05/04/23 Roland Patel MD [address] [place] [address] Consulting Physician Radiation Oncology 05/04/23 documented as of this encounter
--- OUTSIDE RECORDS SUMMARY | 2024-02-15 13:37 | XMS_ITS | Encounter Summary ---
Author Organization [facility] Address [address] [facility] 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 Gender Identity Not on file Sexual [...] MODEL Reference Point Dosage Given to Date [id number] Gy ARIA RO MODEL Reference Point Session Dosage Given 1.10879889 Gy ARIA RO MODEL Plan ID [id number] [...] ORDERABLES F inal Result Performing Organization Address City/State/[facility] Co de Phone Number ARIA RO MODEL [address] [place] [address] documented in this encounter Visit Diagnoses Not on filedocumented in this encounter Care Teams Project Technician Relationship Specialty Start Date End Date Jorge Espinosa PA [address] [place] [address] PCP - General Physician Palliative Care Coordinator 04/11/23 Antwon Mirza MD [address] [place] [address] Consulting Physician Medical Oncology 05/04/23 Roland Patel MD [address] [place] [address] Consulting Physician Radiation Oncology 05/04/23 documented as of this encounter
--- OUTSIDE RECORDS SUMMARY | 2024-02-15 13:37 | XMS_ITS | Encounter Summary ---
Author Organization [employer] 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
--- OUTSIDE RECORDS SUMMARY | 2024-02-15 13:37 | XMS_ITS | Encounter Summary ---
Author Organization [facility] HealthCare Address [address] [place] [address] Phone Care Team Providers Care Glass Beveller Name Role Phone Jorge Espinosa Primary Care Provider [phone] Antwon Mirza MD Unavailable [phone] Roland Patel MD Unavailable [phone] Reason for Visit * Episode Based Medications (Routine) - Authorized Specialty Diagnoses / Procedures Referred By Contac t Referred To Contact Diagnoses Oropharyngeal cancer (HCC) Antwon Mirza MD [address] [place] [address] Phone: tel: fax: [facility] Oncology Services [address] [place] [address] Phone: tel: fax: Referral ID Status Reason Start Date Expiration Date V isits Requested Visits Authorized [id number] Authorized 05/09/2023 1 24 Encounter Details Date Type Department Care Team (Latest Contact Info) Description 06/16/2023 1:30 PM CDT Clinical Support [facility] Oncology Services [address] [place] [address] Antwon Mirza MD [address] [place] [address] Oropharyngeal cancer (HCC) (Primary Dx) [...] on file 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 Gender Identity Not on file Sexual Orientation [...] 12.00 10(3)/mcL 06/16/2023 1:30 PM CDT [facility] RBC 4.38(L) 4.40 - 5.80 10(6)/mcL 06/16/2023 1:30 PM CDT [facility] HEMOGLOBIN (HGB) 11.8(L) 13.0 - 16.5 g/dL 06/16/2023 1:30 PM CDT [facility] HEMATOCRIT (HCT) 36.8(L) 38.0 - 50.0 % 06/16/2023 1:30 PM CDT [facility] MCV 84.0 82.0 - 96.0 fL 06/16/2023 1:30 PM CDT [facility] MCH 26.9 26.0 - 32.0 pg 06/16/2023 1:30 PM CDT [facility] MCHC 32.1 31.0 - 36.0 g/dL 06/16/2023 1:30 PM CDT [facility] PLATELET COUNT 354 140 - 440 10(3)/mcL 06/16/2023 1:30 PM CDT [facility] RDW 15.5 11.8 - 15.5 % 06/16/2023 1:30 PM CDT [facility] MPV 8.6 8.0 - 12.6 fL 06/16/2023 1:30 PM CDT [facility] NEUTROPHILS 67.6 40.0 - 68.0 % 06/16/2023 1:30 PM CDT [facility] LYMPHOCYTES 10.7(L) 19.0 - 49.0 % 06/16/2023 1:30 PM CDT [facility] MONOCYTES 19.8(H) 3.0 - 13.0 % 06/16/2023 1:30 PM CDT [facility] EOSINOPHILS 1.4 0.0 - 8.0 % 06/16/2023 1:30 PM CDT [facility] BASOPHILS 0.5 0.0 - 1.0 % 06/16/2023 1:30 PM CDT [facility] ABSOLUTE NEUTROPHILS 2.83 1.40 - 5.30 10(3)/mcL 06/16/2023 1:30 PM CDT [facility] ABSOLUTE LYMPHOCYTES 0.45(L) 0.90 - 3.30 10(3)/mcL 06/16/2023 1:30 PM CDT [facility] ABSOLUTE MONOCYTES 0.83 0.10 - 0.90 10(3)/mcL 06/16/2023 1:30 PM CDT [facility] ABSOLUTE EOSINOPHIL 0.06 0.00 - 0.50 10(3)/mcL 06/16/2023 1:30 PM CDT [facility] ABSOLUTE BASOPHILS 0.02 0.00 - 0.10 10(3)/mcL 06/16/2023 1:30 PM CDT [facility] NRBC PER 100 WBC 0 06/16/19 1:30 PM CDT [facility] Blood Venipuncture / Unknown 06/16/2023 1:22 PM CDT 06/16/2023 1:22 PM CDT Antwon Mirza MD HEMATOLOGY ORDERABLES nal Result [facility] [address] [place] [address] * (ABNORMAL) CMP (COMPREHENSIVE METABOLIC PANEL) (06/16/2023 1:22 PM CDT) SODIUM 134(L) 136 - 145 mmol/L 06/16/2023 1:48 PM CDT [facility] POTASSIUM 3.6 3.5 - 5.1 mmol/L 06/16/2023 1:48 PM CDT [facility] CHLORIDE 97(L) 98 - 107 mmol/L 06/16/2023 1:48 PM CDT [facility] CO2, VENOUS 29 22 - 30 mmol/L 06/16/2023 1:48 PM CDT [facility] ANION GAP 11.6 <18.0 mmol/L 06/16/2023 1:48 PM CDT [facility] GLUCOSE 98 70 - 99 mg/dL 06/16/2023 1:48 PM CDT [facility] BUN 13 8 - 26 mg/dL 06/16/2023 1:[address] [facility] CREATININE, BLOOD 0.62(L) 0.70 - 1.30 mg/dL 06/16/2023 1:[address] [facility] BUN/CREATININE RATIO 21(H) 12 - 20 ratio 06/16/2023 1:48 PM T [facility] TOTAL PROTEIN 7.4 6.3 - 8.2 g/dL 06/16/2023 1:[address] [facility] ALBUMIN 3.1(L) 3.5 - 5.0 g/dL 06/16/2023 1:[address] [facility] A/G RATIO 0.7(L) 1.0 - 2.2 06/16/2023 1:[address] [facility] CALCIUM 8.8 8.7 - 10.5 mg/dL 06/16/2023 1:48 PM T [facility] T BILI 0.3 0.2 - 1.2 mg/dL 06/16/2023 1:[address] [facility] SGOT (AST) 65(H) 5 - 34 U/L 06/16/2023 1:[address] [facility] SGPT (ALT) 43 0 - 55 U/L 06/16/2023 1:[address] [facility] ALKALINE PHOSPHATASE 80 40 - 150 U/L 06/16/2023 1:[address] [facility] IS THE PATIENT REQUIRED TO BE FASTING? No 06/16/2023 1:[address] [facility] GFR, ESTIMATED >60 >=60 06/16/2023 1:[address] [facility] Comment: Creatinine Clearance is the preferred criteria for selecting drug dose adjustments in renally impaired patients. ??The GFR is provided as additional pertinent clinical information. GFR is reported in mL/min/1.73 sq m. Calculation based on the Chronic Kidney Disease Epidemiology Collaboration (CKD- EPI) equation refit without adjustment for race. GFR, EST. >60 >=60 024 1:48 PM CDT [facility] GFR, EST. NONAFRICAN >60 >=60 06/16/2023 1:48 PM CDT [facility] Blood Venipuncture / Unknown 06/16/2023 1:22 PM CDT 06/16/2023 1:22 PM CDT Antwon Mirza MD CHEMISTRY ORDERABLES Fin al Result [facility] [address] [place] [address] * MAGNESIUM (MG) (06/16/2023 1:22 PM CDT) MAGNESIUM 2.1 1.6 - 2.6 mg/dL 06/16/2023 1:48 PM CDT [facility] Blood Venipuncture / Unknown 06/16/2023 1:22 PM CDT 06/16/2023 1:22 PM CDT Antwon Mirza MD CHEMISTRY ORDERABLES Fin al Result Performing Organization Address City/[facility]/ZIP Co de Phone Number [facility] [address] [place] [address] documented in this encounter Visit Diagnoses Diagnosis [...] mg documented in this encounter Care Teams Glass Beveller Relationship Specialty Start Date End Date Jorge Espinosa PA [address] [place] [address] PCP - General Physician Caul Fat Puller 04/11/23 Antwon Mirza MD [address] [place] [address] Consulting Physician Medical Oncology 05/04/23 Roland Patel MD [address] [place] [address] Consulting Physician Radiation Oncology 05/04/23 documented as of this encounter
--- OUTSIDE RECORDS SUMMARY | 2024-02-15 13:37 | XMS_ITS | Encounter Summary ---
Author Organization [facility] Address [address] [facility] 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 Gender Identity Not on file Sexual Orientation [...] MODEL Reference Point Dosage Given to Date [id number] Gy ARIA RO MODEL Reference Point Session Dosage Given 1.84319343 Gy ARIA RO MODEL Plan ID [id number] [...] F inal Result ARIA RO MODEL [address] [place] [address] documented in this encounter Visit Diagnoses Not on filedocumented in this encounter Care Teams Comic Book Designer Relationship Specialty Start Date End Date Jorge Espinosa PA [address] [place] [address] PCP - General Physician Rocket Motor Mechanic 04/11/23 Antwon Mirza MD [address] [place] [address] Consulting Physician Medical Oncology 05/04/23 Roland Patel MD [address] [place] [address] Consulting Physician Radiation Oncology 05/04/23 documented as of this encounter
--- OUTSIDE RECORDS SUMMARY | 2024-02-15 13:37 | XMS_ITS | Encounter Summary ---
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
--- OUTSIDE RECORDS SUMMARY | 2024-02-15 13:37 | XMS_ITS | Encounter Summary ---
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
--- OUTSIDE RECORDS SUMMARY | 2024-02-15 13:37 | XMS_ITS | Encounter Summary ---
Author Organization [facility] Address [address] [facility] 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 Gender Identity Not on file Sexual [...] MODEL Reference Point Dosage Given to Date [id number] Gy ARIA RO MODEL Reference Point Session Dosage Given 1.11079100 Gy ARIA RO MODEL Plan ID [id number] [...] F inal Result Performing Organization Address City/State/[facility] Co de Phone Number ARIA RO MODEL [address] [place] [address] documented in this encounter Visit Diagnoses Not on filedocumented in this encounter Care Teams Vocal Artist Relationship Specialty Start Date End Date Jorge Espinosa PA [address] [place] [address] PCP - General Physician Sports Specialist 04/11/23 Antwon Mirza MD [address] [place] [address] Consulting Physician Medical Oncology 05/04/23 Roland Patle MD [address] [place] [address] Consulting Physician Radiation Oncology 05/04/23 documented as of this encounter
--- OUTSIDE RECORDS SUMMARY | 2024-02-15 13:37 | XMS_ITS | Encounter Summary ---
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 Gender Identity Not on file Sexual Orientation Not on file documented as of this encounter Plan of Treatment Not on file documented as of this encounter Visit Diagnoses Not on filedocumented in this encounter Care Teams Safety Glass Installer Relationship Specialty Start Date End Date Jorge Espinosa PA [address] [place] [address] PCP - General Physician Aircraft Communicator 04/11/23 Antwon Mirza MD [address] [place] [address] Consulting Physician Medical Oncology 05/04/23 Roland Patel MD [address] [place] [address] Consulting Physician Radiation Oncology 05/04/23 documented as of this encounter
--- OUTSIDE RECORDS SUMMARY | 2024-02-15 13:37 | XMS_ITS | Encounter Summary ---
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
--- OUTSIDE RECORDS SUMMARY | 2024-02-15 13:37 | XMS_ITS | Encounter Summary ---
Author Organization [facility] Address [address] [facility] 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 Gender Identity Not on file Sexual [...] MODEL Reference Point Dosage Given to Date [id number] Gy ARIA RO MODEL Reference Point Session Dosage Given [id number] Gy ARIA RO MODEL Plan ID [id number] [...] ORDERABLES F inal Result Performing Organization Address City/State/[facility] Co de Phone Number ARIA RO MODEL [address] [place] [address] documented in this encounter Visit Diagnoses Not on filedocumented in this encounter Care Teams Director Vaccine Relationship Specialty Start Date End Date Jorge Espinosa PA [address] [place] [address] PCP - General Physician Bath Solution Maker 04/11/23 Antwon Mirza MD [address] [place] [address] Consulting Physician Medical Oncology 05/04/23 Roland Patel MD [address] [place] [address] Consulting Physician Radiation Oncology 05/04/23 documented as of this encounter
--- OUTSIDE RECORDS SUMMARY | 2024-02-15 13:37 | XMS_ITS | Encounter Summary ---
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
--- OUTSIDE RECORDS SUMMARY | 2024-02-15 13:37 | XMS_ITS | Encounter Summary ---
Author Organization [facility] Address [address] [place] [address] Phone Care Team Providers Care Rehabilitation Worker Name Role Phone Jorge Espinosa Primary Care Provider [phone] Antwon Mirza MD Unavailable [phone] Roland Patel MD Unavailable [phone] Reason for Visit * Treatment (Routine) - Closed Specialty Diagnoses / Procedures Referred By Contac t Referred To Contact Oncology Diagnoses Oropharyngeal cancer (HCC) Procedures RAD ONC INTENT TO TREAT Roland Patel MD [address] [place] [address] Phone: tel: fax: Referral ID Status Reason Start Date Expiration Date Visits Re quested Visits Authorized [id number] Closed 04/19/2023 1 1 Encounter Details Date Type Department Care Team (Latest Contact Info) Description 06/08/2023 1:00 PM CDT Clinical Support [facility] Center Oncology Services [address] [place] [id number] Roland Patel MD [address] [place] [address] Discharge Disposition: Discharged to home [...] on file 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 Gender Identity Not on file Sexual [...] MODEL Reference Point Dosage Given to Date [id number] Gy ARIA RO MODEL Reference Point Session Dosage Given [id number] Gy ARIA RO MODEL Plan ID [id number] [...] F inal Result ARIA RO MODEL [address] [place] [address] documented in this encounter Visit Diagnoses Not on filedocumented in this encounter Care Teams Rehabilitation Worker Relationship Specialty Start Date End Date Jorge Espinosa PA [address] [place] [address] PCP - General Physician Teacher Dancing 04/11/23 Antwon Mirza MD [address] [place] [address] Consulting Physician Medical Oncology 05/04/23 Roland Patel MD [address] [place] [address] Consulting Physician Radiation Oncology 05/04/23 documented as of this encounter
--- OUTSIDE RECORDS SUMMARY | 2024-02-15 13:37 | XMS_ITS | Encounter Summary ---
Author Organization [facility] Address [address] [facility] [place] [address] Phone Care Team Providers Care Skid Road Man Name Role Phone Jorge Espinosa Primary Care Provider [phone] Antwon Mirza MD Unavailable [phone] Roland Patel MD Unavailable Reason for Visit * Reason Onset Date Comments Medication Refill 07/01/2023 Encounter Details Date Type Department Care Team (Late st Contact Info) Description 07/01/2023 Refill [facility] Oncology Services [address] [place] [address] Antwon iMrza MD [address] [place] [address] Medication Refill Social History Tobacco Use Types Packs/Day Years Used Date Smoking Tobacco: Every Day Cigarettes 0.5 50.9 Started: 1974 Smokeless Tobacco: Never Alcohol Use Standard Drinks/Week Comments Yes 0 (1 standard drink = 0.6 oz pure alcohol) Occasionally, never a regular drinker Sex and Gender Information Value Date Recorded Sex Assigned at Not on file 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 Next f/u scheduled for 07/06/23. documented in this encounter Plan of Treatment Not on file documented as of this encounter Visit Diagnoses Diagnosis Oropharyngeal cancer (HCC) Malignant neoplasm of oropharynx, unspecified site documented in this encounter Care Teams Skid Road Man Relationship Specialty Start Date End Date Jorge Espinosa PA [address] [place] [address] PCP - General Physician Health Care Facilities Inspector 04/11/23 Antwon Mirza MD [address] [place] [address] Consulting Physician Medical Oncology 05/04/23 Roland Patel MD [address] [place] [address] Consulting Physician Radiation Oncology 05/04/23 documented as of this encounter
--- OUTSIDE RECORDS SUMMARY | 2024-02-15 13:37 | XMS_ITS | Encounter Summary ---
Author Organization [facility] Address [address] [facility] [place] [address] Phone Care Team Providers Care Visual Supervisor Name Role Phone Jorge Espinosa Primary Care Provider [phone] Antwon Mirza MD Unavailable [phone] Roland Patel MD Unavailable [phone] Reason for Visit * Reason Comments Cancer Oropharyngeal squamo us cell carcinoma, p16+. 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
--- OUTSIDE RECORDS SUMMARY | 2024-02-15 13:37 | XMS_ITS | Encounter Summary ---
Author Organization [facility] Address [address] [facility] 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
--- OUTSIDE RECORDS SUMMARY | 2024-02-15 13:37 | XMS_ITS | Encounter Summary ---
Author Organization [facility] Address [address] [facility] [place] [place] [address] Phone Care Team Providers Care Clinical Laboratory Assistant Name Role Phone Jorge Espinosa Primary Care Provider Antwon Mirza MD Unavailable [phone] Roland Patel MD Unavailable Encounter Details Date Type Department Care Team (Late st Contact Info) Description 05/26/2023 [facility]ation Only [facility] [address] [place] [address] Roland Patel MD [address] [place] [address] Social History Tobacco Use Types Packs/Day Years Used Date Smoking Tobacco: Every Day Cigarettes 0.5 50.9 Started: 1974 Smokeless Tobacco: Never Alcohol Use Standard Drinks/Week Comments Yes 0 (1 standard drink = 0.6 oz pure alcohol) Occasionally, never a regular drinker Sex and Gender Information Value Date Recorded Sex Assigned at Not on file 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
--- OUTSIDE RECORDS SUMMARY | 2024-02-15 13:37 | XMS_ITS | Encounter Summary ---
Author Organization [facility] Address [address] [place] [address] Phone Care Team Providers Care Instructor Of Nursing Name Role Phone Jorge Espinosa Primary Care Provider [phone] Antwon Mirza MD Unavailable [phone] Roland Patel MD Unavailable [phone] Reason for Visit * Episode Based Medications (Routine) - Authorized Specialty Diagnoses / Procedures Referred By Contac t Referred To Contact Diagnoses Oropharyngeal cancer (HCC) Antwon Mirza MD [address] [place] [address] Phone: tel: fax: [facility] Oncology Services [address] [place] [address] Phone: tel: fax: Referral ID Status Reason Start Date Expiration Date V isits Requested Visits Authorized [id number] Authorized 05/09/2023 1 24 Encounter Details Date Type Department Care Team (Latest Contact Info) Description 06/09/2023 1:30 PM CDT Clinical Support [facility] Oncology Services [address] [place] [address] Antwon Mirza MD [address] [place] [address] Oropharyngeal cancer (HCC) (Primary Dx) [...] file 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
--- OUTSIDE RECORDS SUMMARY | 2024-02-15 13:37 | XMS_ITS | Encounter Summary ---
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 Gender Identity Not on file Sexual Orientation Not on file documented as of this encounter Plan of Treatment Not on file documented as of this encounter Visit Diagnoses Not on filedocumented in this encounter Care Teams Associate Professor Of Psychology Relationship Specialty Start Date End Date Jorge Espinosa PA [address] [place] [address] PCP - General Physician Loft Rigger 04/11/23 Antwon Mirza MD [address] [place] [address] Consulting Physician Medical Oncology 05/04/23 Roland Patel MD [address] [place] [address] Consulting Physician Radiation Oncology 05/04/23 documented as of this encounter
--- OUTSIDE RECORDS SUMMARY | 2024-02-15 13:37 | XMS_ITS | Encounter Summary ---
Author Organization [facility] Address [address] [facility] [place] [address] Phone Care Team Providers Care Mold Sheet Cleaner Name Role Phone Jorge Espinosa Primary Care Provider [phone] Antwon Mirza MD Unavailable Roland Patel MD Unavailable Reason for Visit * Reason Comments Cancer Oropharyngeal squamo us cell carcinoma, p16+. 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 Gender Identity Not on file Sexual [...] MD - 05/31/2023 1:15 PM CDT [facility] RADIATION ONCOLOGY ON TREATMENT VISIT Patient [...] Espinosa PA as PCP - General (Physician Automotive Parts Manager) Antwon Mirza MD as Consulting Physician [...] (HCC) documented in this encounter Care Teams Mold Sheet Cleaner Relationship Specialty Start Date End Date Jorge Espinosa PA [address] [place] [address] PCP - General Physician Automotive Parts Manager 04/11/23 Antwon Mirza MD [address] [place] [address] Consulting Physician Medical Oncology 05/04/23 Roland Patel MD [address] [place] [address] Consulting Physician Radiation Oncology 05/04/23 documented as of this encounter
--- OUTSIDE RECORDS SUMMARY | 2024-02-15 13:37 | XMS_ITS | Encounter Summary ---
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
--- OUTSIDE RECORDS SUMMARY | 2024-02-15 13:37 | XMS_ITS | Encounter Summary ---
Author Organization [facility] Address [address] [place] [address] Phone Care Team Providers Care Senior Consultant Name Role Phone Jorge Espinosa Primary Care Provider [phone] Antwon Mirza MD Unavailable [phone] Roland Patel MD Unavailable [phone] Reason for Visit * Episode Based Medications (Routine) - Authorized Specialty Diagnoses / Procedures Referred By Contac t Referred To Contact Diagnoses Oropharyngeal cancer (HCC) Antwon Mirza MD [address] [place] [address] Phone: tel: fax: [facility] Oncology Services [address] [place] [address] Phone: tel: fax: Referral ID Status Reason Start Date Expiration Date V isits Requested Visits Authorized [id number] Authorized 05/09/2023 1 24 Encounter Details Date Type Department Care Team (Latest Contact Info) Description 05/26/2023 1:30 PM CDT Clinical Support [facility] Oncology Services [address] [place] [address] Antwon Mirza MD [address] [place] [address] Oropharyngeal cancer (HCC) (Primary Dx) [...] on file 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
--- OUTSIDE RECORDS SUMMARY | 2024-02-15 13:37 | XMS_ITS | Encounter Summary ---
Author Organization [facility] Address [address] [facility] [place] [address] Phone Care Team Providers Care Devops Solutions Architect Name Role Phone Jorge Espinosa Primary Care Provider [phone] Antwon Mirza MD Unavailable [phone] Roland Patel MD Unavailable Reason for Visit * Reason Onset Date Comments Medication Refill 06/10/2023 Encounter Details Date Type Department Care Team (Late st Contact Info) Description 06/10/2023 Refill [facility] Oncology Services [address] [place] [address] Antwon Mirza MD [address] [place] [address] Medication Refill Social History Tobacco Use Types Packs/Day Years Used Date Smoking Tobacco: Every Day Cigarettes 0.5 50.9 Started: 1974 Smokeless Tobacco: Never Alcohol Use Standard Drinks/Week Comments Yes 0 (1 standard drink = 0.6 oz pure alcohol) Occasionally, never a regular drinker Sex and Gender Information Value Date Recorded Sex Assigned at Not on file 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 Next f/u to be scheduled. documented in this encounter Plan of Treatment Not on file documented as of this encounter Visit Diagnoses Diagnosis Oropharyngeal cancer (HCC) Malignant neoplasm of oropharynx, unspecified site documented in this encounter Care Teams Devops Solutions Architect Relationship Specialty Start Date End Date Joreg Espinosa PA [address] [place] [address] PCP - General Physician Van Owner Operator 04/11/23 Antwon Mirza MD [address] [place] [address] Consulting Physician Medical Oncology 05/04/23 Roland Patel MD [address] [place] [address] Consulting Physician Radiation Oncology 05/04/23 documented as of this encounter
--- OUTSIDE RECORDS SUMMARY | 2024-02-15 13:37 | XMS_ITS | Encounter Summary ---
Author Organization [facility] Address [address] [facility] 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 Gender Identity Not on file Sexual [...] MODEL Reference Point Dosage Given to Date [id number] Gy ARIA RO MODEL Reference Point Session Dosage Given [id number] Gy ARIA RO MODEL Plan ID [id number] [...] de Phone Number ARIA RO MODEL [address] [place] [address] documented in this encounter Visit Diagnoses Not on filedocumented in this encounter Care Teams Telegraphic Typewriter Repairer Relationship Specialty Start Date End Date Jorge Espinosa PA [address] [place] [address] PCP - General Physician Manager Commercial Sales 04/11/23 Antwon Mirza MD [address] [place] [address] Consulting Physician Medical Oncology 05/04/23 Roland Patel MD [address] [place] [address] Consulting Physician Radiation Oncology 05/04/23 documented as of this encounter
--- OUTSIDE RECORDS SUMMARY | 2024-02-15 13:37 | XMS_ITS | Encounter Summary ---
Author Organization [facility] Address [address] [facility] [place] [address] Phone Care Team Providers Care Box Icer Name Role Phone Jorge Espinosa Primary Care Provider [phone] Antwon Mirza MD Unavailable Roland Patel MD Unavailable [phone] Reason for Visit * Reason Onset Date Comments Medication Refill 06/02/2023 Encounter Details Date Type Department Care Team (Late st Contact Info) Description 06/02/2023 Refill 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 documented in this encounter Plan of Treatment Not on file documented as of this encounter Visit Diagnoses Not on filedocumented in this encounter Care Teams Box Icer Relationship Specialty Start Date End Date Jorge Espinosa PA [address] [place] [address] PCP - General Physician Vest Presser 04/11/23 Antwon Mirza MD [address] [place] [address] Consulting Physician Medical Oncology 05/04/23 Roland Patel MD [address] [place] [address] Consulting Physician Radiation Oncology 05/04/23 documented as of this encounter
--- OUTSIDE RECORDS SUMMARY | 2024-02-15 13:37 | XMS_ITS | Encounter Summary ---
Author Organization [facility] Address [address] [facility] [place] [address] Phone Care Team Providers Care Charger Operator Helper Name Role Phone Jorge Espinosa Primary Care Provider [phone] Antwon Mirza MD Unavailable [phone] Roland Patel MD Unavailable Reason for Visit * Reason Comments Cancer Oropharyngeal squamo us cell carcinoma, p16+. 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 Gender Identity Not on file Sexual [...] MD - 06/06/2023 1:15 PM CDT [facility] RADIATION ONCOLOGY ON TREATMENT VISIT [...] Espinosa PA as PCP - General (Physician Record Systems Analyst) Antwon Mirza MD as Consulting Physician (Medical [...] (HCC) documented in this encounter Care Teams Charger Operator Helper Relationship Specialty Start Date End Date Jorge Espinosa PA [address] [place] [address] PCP - General Physician Record Systems Analyst 04/11/23 Antwon Mirza MD [address] [place] [address] Consulting Physician Medical Oncology 05/04/23 Roland Patel MD [address] [place] [address] Consulting Physician Radiation Oncology 05/04/23 documented as of this encounter
--- OUTSIDE RECORDS SUMMARY | 2024-02-15 13:37 | XMS_ITS | Encounter Summary ---
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 Gender Identity Not on file Sexual Orientation Not on file documented as of this encounter Plan of Treatment Not on file documented as of this encounter Visit Diagnoses Not on filedocumented in this encounter Care Teams Restrooms Or Lounges Maid Relationship Specialty Start Date End Date Jorge Espinosa PA [address] [place] [address] PCP - General Physician Fiberglass Boat Assembly Supervisor 04/11/23 Antwon Mirza MD [address] [place] [address] Consulting Physician Medical Oncology 05/04/23 Roland Patel MD [address] [place] [address] Consulting Physician Radiation Oncology 05/04/23 documented as of this encounter
--- OUTSIDE RECORDS SUMMARY | 2024-02-15 13:37 | XMS_ITS | Encounter Summary ---
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
--- OUTSIDE RECORDS SUMMARY | 2024-02-15 13:37 | XMS_ITS | Encounter Summary ---
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
--- OUTSIDE RECORDS SUMMARY | 2024-02-15 13:37 | XMS_ITS | Encounter Summary ---
Author Organization [facility] Address [address] [facility] [place] [address] Phone Care Team Providers Care Complaint Analyst Name Role Phone Jorge Espinosa Primary Care Provider [phone] Antwon Mirza MD Unavailable Roland Patel MD Unavailable Encounter Details Date Type Department Care Team (Latest Contact Info) Description 05/24/2023 1:00 PM CDT Clinical Support 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 Gender Identity Not on file Sexual [...] MODEL Reference Point Dosage Given to Date [id number] Gy ARIA RO MODEL Reference Point Session Dosage Given [id number] Gy ARIA RO MODEL Plan ID [id number] [...] ORDERABLES F inal Result Performing Organization Address City/State/[facility] Co de Phone Number ARIA RO MODEL [address] [place] [address] documented in this encounter Visit Diagnoses Not on filedocumented in this encounter Care Teams Complaint Analyst Relationship Specialty Start Date End Date Jorge Espinosa PA [address] [place] [address] PCP - General Physician Studio Operations Engineer In Charge 04/11/23 Antwon Mirza MD [address] [place] [address] Consulting Physician Medical Oncology 05/04/23 Roland Patel MD [address] [place] [address] Consulting Physician Radiation Oncology 05/04/23 documented as of this encounter
--- OUTSIDE RECORDS SUMMARY | 2024-02-15 13:37 | XMS_ITS | Encounter Summary ---
Author Organization [facility] Address [address] [facility] 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 Gender Identity Not on file Sexual [...] 12.00 10(3)/mcL 06/01/2023 2:16 PM CDT [facility] RBC 4.57 4.40 - 5.80 10(6)/mcL 06/01/2023 2:16 PM CDT [facility] HEMOGLOBIN (HGB) 12.2(L) 13.0 - 16.5 g/dL 06/01/2023 2:16 PM CDT [facility] HEMATOCRIT (HCT) 38.5 38.0 - 50.0 % 06/01/2023 2:16 PM CDT [facility] MCV 84.2 82.0 - 96.0 fL 06/01/2023 2:16 PM CDT [facility] MCH 26.7 26.0 - 32.0 pg 06/01/2023 2:16 PM CDT [facility] MCHC 31.7 31.0 - 36.0 g/dL 06/01/2023 2:16 PM CDT [facility] PLATELET COUNT 495(H) 140 - 440 10(3)/[facility] 06/01/2023 2:16 PM CDT [facility] RDW 14.6 11.8 - 15.5 % 06/01/2023 2:16 PM CDT [facility] MPV 9.3 8.0 - 12.6 fL 06/01/2023 2:16 PM CDT [facility] NEUTROPHILS 75.1(H) 40.0 - 68.0 % 06/01/2023 2:16 PM CDT [facility] LYMPHOCYTES 11.7(L) 19.0 - 49.0 % 06/01/2023 2:16 PM CDT [facility] MONOCYTES 10.3 3.0 - 13.0 % 06/01/2023 2:16 PM CDT [facility] EOSINOPHILS 1.8 0.0 - 8.0 % 06/01/2023 2:16 PM CDT [facility] BASOPHILS 1.1(H) 0.0 - 1.0 % 06/01/2023 2:16 PM CDT [facility] ABSOLUTE NEUTROPHILS 4.10 1.40 - 5.30 10(3)/mcL 06/01/2023 2:16 PM CDT [facility] ABSOLUTE LYMPHOCYTES 0.64(L) 0.90 - 3.30 10(3)/[facility] 06/01/2023 2:16 PM CDT [facility] ABSOLUTE MONOCYTES 0.56 0.10 - 0.90 10(3)/[facility] 06/01/2023 2:16 PM CDT [facility] ABSOLUTE EOSINOPHIL 0.10 0.00 - 0.50 10(3)/[facility] 06/01/2023 2:16 PM CDT [facility] ABSOLUTE BASOPHILS 0.06 0.00 - 0.10 10(3)/[facility] 06/01/2023 2:16 PM CDT [facility] NRBC PER 100 WBC 0 06/01/19 2:16 PM CDT [facility] Blood Venipuncture / Unknown 06/01/2023 1:43 PM CDT 06/01/2023 1:43 PM CDT us Antwon Mirza MD HEMATOLOGY ORDERABLES Fi nal Result [facility] [address] [place] [address] * (ABNORMAL) CMP (COMPREHENSIVE METABOLIC PANEL) (06/01/2023 1:43 PM CDT) SODIUM 132(L) 136 - 145 mmol/L 06/01/2023 2:35 PM CDT [facility] POTASSIUM 4.0 3.5 - 5.1 mmol/L 06/01/2023 2:35 PM CDT [facility] CHLORIDE 97(L) 98 - 107 mmol/L 06/01/2023 2:35 PM CDT [facility] CO2, VENOUS 25 22 - 30 mmol/L 06/01/2023 2:35 PM CDT [facility] ANION GAP 14.0 <18.0 mmol/L 06/01/2023 2:35 PM CDT [facility] GLUCOSE 87 70 - 99 mg/dL 06/01/2023 2:35 PM CDT [facility] BUN 27(H) 8 - 26 mg/dL 06/01/2023 2:35 PM CDT [facility] CREATININE, BLOOD 0.55(L) 0.70 - 1.30 mg/dL 06/01/2023 2:35 PM CDT [facility] BUN/CREATININE RATIO 49(H) 12 - 20 ratio 06/01/2023 2:35 PM CDT [facility] TOTAL PROTEIN 8.1 6.3 - 8.2 g/dL 06/01/2023 2:35 PM CDT [facility] ALBUMIN 3.4(L) 3.5 - 5.0 g/dL 06/01/2023 2:35 PM CDT [facility] A/G RATIO 0.7(L) 1.0 - 2.2 06/01/2023 2:35 PM CDT [facility] CALCIUM 9.1 8.7 - 10.5 mg/dL 06/01/2023 2:35 PM CDT [facility] T BILI 0.3 0.2 - 1.2 mg/dL 06/01/2023 2:35 PM CDT [facility] SGOT (AST) 110(H) 5 - 34 U/L 06/01/2023 2:35 PM CDT [facility] SGPT (ALT) 76(H) 0 - 55 U/L 06/01/2023 2:35 PM CDT [facility] ALKALINE PHOSPHATASE 83 40 - 150 U/L 06/01/2023 2:35 PM CDT [facility] IS THE PATIENT REQUIRED TO BE FASTING? No 06/01/2023 2:35 PM CDT [facility] GFR, ESTIMATED >60 >=60 06/01/2023 2:35 PM CDT [facility] Comment: Creatinine Clearance is the preferred criteria for selecting drug dose adjustments in renally impaired patients. ??The GFR is provided as additional pertinent clinical information. GFR is reported in mL/min/1.73 sq m. Calculation based on the Chronic Kidney Disease Epidemiology Collaboration (CKD- EPI) equation refit without adjustment for race. GFR, EST. >60 >=60 024 2:35 PM CDT [facility] GFR, EST. NONAFRICAN >60 >=60 06/01/2023 2:35 PM CDT [facility] Blood Venipuncture / Unknown 06/01/2023 1:43 PM CDT 06/01/2023 1:43 PM CDT us Antwon Mirza MD CHEMISTRY ORDERABLES Fin al Result [facility] [address] [facility] [place] [address] documented in this encounter Visit Diagnoses Diagnosis Oropharyngeal cancer (HCC) Malignant neoplasm of oropharynx, unspecified site documented in this encounter Care Teams Doorperson Or Luggage Porter Relationship Specialty Start Date End Date Jorge Espinosa PA [address] [place] [address] PCP - General Physician Bike Assembler 04/11/23 Antwon Mirza MD [address] [place] [address] Consulting Physician Medical Oncology 05/04/23 Roland Patel MD [address] [place] [address] Consulting Physician Radiation Oncology 05/04/23 documented as of this encounter
--- OUTSIDE RECORDS SUMMARY | 2024-02-15 13:37 | XMS_ITS | Encounter Summary ---
Author Organization [facility] Address [address] [facility] [place] [address] Phone Care Team Providers Care Baker Paint Name Role Phone Jorge Espinosa Primary Care Provider [phone] Antwon Mirza MD Unavailable Roland Patel MD Unavailable [phone] Reason for Visit * Reason Comments Cancer Oropharyngeal squamo us cell carcinoma, p16+. 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 Gender Identity Not on file [...] MD - 06/20/2023 1:15 PM CDT [facility] [...] Espinosa PA as PCP - General (Physician Bioanalyst) Antwon Mirza MD as Consulting Physician (Medical [...] (HCC) documented in this encounter Care Teams Baker Paint Relationship Specialty Start Date End Date Jorge Espinosa PA [address] [place] [address] PCP - General Physician Bioanalyst 04/11/23 Antwon Mirza MD [address] [place] [address] Consulting Physician Medical Oncology 05/04/23 Roland Patel MD [address] [place] [address] Consulting Physician Radiation Oncology 05/04/23 documented as of this encounter
--- OUTSIDE RECORDS SUMMARY | 2024-02-15 13:37 | XMS_ITS | Encounter Summary ---
Author Organization [facility] Address [address] [place] [address] Phone Care Team Providers Care Extern Name Role Phone Jorge Espinosa Primary Care Provider [phone] Antwon Mirza MD Unavailable [phone] Roland Patel MD Unavailable [phone] Reason for Visit * Episode Based Medications (Routine) - Authorized Specialty Diagnoses / Procedures Referred By Contac t Referred To Contact Diagnoses Oropharyngeal cancer (HCC) Antwon Mirza MD [address] [place] [address] Phone: tel: fax: [facility] Oncology Services [address] [place] [address] Phone: tel: fax: Referral ID Status Reason Start Date Expiration Date V isits Requested Visits Authorized [id number] Authorized 05/09/2023 1 24 Encounter Details Date Type Department Care Team (Latest Contact Info) Description 06/23/2023 1:30 PM CDT Clinical Support [facility] Oncology Services [address] [place] [address] Antwon Mirza MD [address] [place] [address] Oropharyngeal cancer (HCC) (Primary Dx) [...] on file 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 Gender Identity Not on file Sexual [...] WITH AUTO DIFFERENTIAL (06/23/2023 1:10 PM CDT) [facility] WBC 4.99 4.00 - 12.00 10(3)/mcL 06/23/2023 1:21 PM CDT [facility] RBC 4.40 4.40 - 5.80 10(6)/mcL 06/23/2023 1:21 PM CDT [facility] HEMOGLOBIN (HGB) 11.8(L) 13.0 - 16.5 g/dL 06/23/2023 1:21 PM CDT [facility] HEMATOCRIT (HCT) 36.8(L) 38.0 - 50.0 % 06/23/2023 1:21 PM CDT [facility] MCV 83.6 82.0 - 96.0 fL 06/23/2023 1:21 PM CDT [facility] MCH 26.8 26.0 - 32.0 pg 06/23/2023 1:21 PM CDT [facility] MCHC 32.1 31.0 - 36.0 g/dL 06/23/2023 1:21 PM CDT [facility] PLATELET COUNT 315 140 - 440 10(3)/mcL 06/23/2023 1:21 PM CDT [facility] RDW 16.0(H) 11.8 - 15.5 % 06/23/2023 1:21 PM CDT [facility] MPV 8.3 8.0 - 12.6 fL 06/23/2023 1:21 PM CDT [facility] NEUTROPHILS 75.6(H) 40.0 - 68.0 % 06/23/2023 1:21 PM CDT [facility] LYMPHOCYTES 10.8(L) 19.0 - 49.0 % 06/23/2023 1:21 PM CDT [facility] MONOCYTES 11.2 3.0 - 13.0 % 06/23/2023 1:21 PM CDT [facility] EOSINOPHILS 1.8 0.0 - 8.0 % 06/23/2023 1:21 PM CDT [facility] BASOPHILS 0.6 0.0 - 1.0 % 06/23/2023 1:21 PM CDT [facility] ABSOLUTE NEUTROPHILS 3.77 1.40 - 5.30 10(3)/[facility] 06/23/2023 1:21 PM CDT [facility] ABSOLUTE LYMPHOCYTES 0.54(L) 0.90 - 3.30 10(3)/[facility] 06/23/2023 1:21 PM CDT [facility] ABSOLUTE MONOCYTES 0.56 0.10 - 0.90 10(3)/[facility] 06/23/2023 1:21 PM CDT [facility] ABSOLUTE EOSINOPHIL 0.09 0.00 - 0.50 10(3)/[facility] 06/23/2023 1:21 PM CDT [facility] ABSOLUTE BASOPHILS 0.03 0.00 - 0.10 10(3)/[facility] 06/23/2023 1:21 PM CDT [facility] NRBC PER 100 WBC 0 06/23/19 1:21 PM CDT [facility] Blood Venipuncture / Unknown 06/23/2023 1:10 PM CDT 06/23/2023 1:10 PM CDT us Antwon Mirza MD HEMATOLOGY ORDERABLES Fi nal Result [facility] [address] [place] [address] * (ABNORMAL) CMP (COMPREHENSIVE METABOLIC PANEL) (06/23/2023 1:10 PM CDT) SODIUM 135(L) 136 - 145 mmol/L 06/23/2023 1:53 PM CDT [facility] POTASSIUM 3.0(L) 3.5 - 5.1 mmol/L 06/23/2023 1:53 PM CDT [facility] CHLORIDE 93(L) 98 - 107 mmol/L 06/23/2023 1:53 PM CDT [facility] CO2, VENOUS 35(H) 22 - 30 mmol/L 06/23/2023 1:53 PM CDT [facility] ANION GAP 10.0 <18.0 mmol/L 06/23/2023 1:53 PM CDT [facility] GLUCOSE 92 70 - 99 mg/dL 06/23/2023 1:53 PM CDT [facility] BUN 7(L) 8 - 26 mg/dL 06/23/2023 1:53 PM T [facility] CREATININE, BLOOD 0.60(L) 0.70 - 1.30 mg/dL 06/23/2023 1:53 PM T [facility] BUN/CREATININE RATIO 12 12 - 20 ratio 06/23/2023 1:53 PM T [facility] TOTAL PROTEIN 7.0 6.3 - 8.2 g/dL 06/23/2023 1:53 PM T [facility] ALBUMIN 3.0(L) 3.5 - 5.0 g/dL 06/23/2023 1:53 PM T [facility] A/G RATIO 0.8(L) 1.0 - 2.2 06/23/2023 1:53 PM T [facility] CALCIUM 8.6(L) 8.7 - 10.5 mg/dL 06/23/2023 1:53 PM T [facility] T BILI 0.2 0.2 - 1.2 mg/dL 06/23/2023 1:53 PM T [facility] SGOT (AST) 57(H) 5 - 34 U/L 06/23/2023 1:53 PM T [facility] SGPT (ALT) 40 0 - 55 U/L 06/23/2023 1:53 PM T [facility] ALKALINE PHOSPHATASE 82 40 - 150 U/L 06/23/2023 1:53 PM T [facility] IS THE PATIENT REQUIRED TO BE FASTING? No 06/23/2023 1:53 PM CDT [facility] GFR, ESTIMATED >60 >=60 06/23/2023 1:53 PM CDT [facility] Comment: Creatinine Clearance is the preferred criteria for selecting drug dose adjustments in renally impaired patients. ??The GFR is provided as additional pertinent clinical information. GFR is reported in mL/min/1.73 sq m. Calculation based on the Chronic Kidney Disease Epidemiology Collaboration (CKD- EPI) equation refit without adjustment for race. GFR, EST. >60 >=60 024 1:53 PM CDT [facility] GFR, EST. NONAFRICAN >60 >=60 06/23/2023 1:53 PM CDT [facility] Blood Venipuncture / Unknown 06/23/2023 1:10 PM CDT 06/23/2023 1:10 PM CDT Antwon Mirza MD CHEMISTRY ORDERABLES Fin al Result Performing Organization Address City/[facility] Co de Phone Number [facility] [address] [place] [address] * MAGNESIUM (MG) (06/23/2023 1:10 PM CDT) MAGNESIUM 2.0 1.6 - 2.6 mg/dL 06/23/2023 1:53 PM CDT [facility] Blood Venipuncture / Unknown 06/23/2023 1:10 PM CDT 06/23/2023 1:10 PM CDT Antwon Mirza MD CHEMISTRY ORDERABLES Fin al Result Performing Organization Address City/[facility]/ZIP Co de Phone Number [facility] [address] [place] [address] documented in this encounter Visit Diagnoses Diagnosis Oropharyngeal cancer (HCC)- Primary Malignant neoplasm of oropharynx, unspecified site documented in this encounter Care Teams Extern Relationship Specialty Start Date End Date Jorge Espinosa PA [address] [place] [address] PCP - General Physician Equine Dentist 04/11/23 Antwon Mirza MD [address] [place] [address] Consulting Physician Medical Oncology 05/04/23 Roland Patel MD [address] [place] [address] Consulting Physician Radiation Oncology 05/04/23 documented as of this encounter
--- OUTSIDE RECORDS SUMMARY | 2024-02-15 13:37 | XMS_ITS | Encounter Summary ---
Author Organization [facility] Address [address] [facility] [place] [address] Phone Care Team Providers Care Application Coordinator Name Role Phone Jorge Espinosa Primary Care Provider [phone] Antwon Mirza MD Unavailable [phone] Roland Patel MD Unavailable [phone] Encounter Details Date Type Department Care Team (Latest Contact Info) Description 06/14/2023 1:00 PM CDT Clinical Support 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 Gender Identity Not on file Sexual [...] MODEL Reference Point Dosage Given to Date [id number] Gy ARIA RO MODEL Reference Point Session Dosage Given [id number] Gy ARIA RO MODEL Plan ID [id number] [...] ORDERABLES F inal Result Performing Organization Address City/State/[facility] Co de Phone Number ARIA RO MODEL [address] [place] [address] documented in this encounter Visit Diagnoses Not on filedocumented in this encounter Care Teams Application Coordinator Relationship Specialty Start Date End Date Jorge Espinosa PA [address] [place] [address] PCP - General Physician Security Systems Administrator 04/11/23 Antwon Mirza MD [address] [place] [address] Consulting Physician Medical Oncology 05/04/23 Roland Patel MD [address] [place] [address] Consulting Physician Radiation Oncology 05/04/23 documented as of this encounter
--- OUTSIDE RECORDS SUMMARY | 2024-02-15 13:37 | XMS_ITS | Encounter Summary ---
Author Organization [facility] Address [address] [place] [address] Phone Care Team Providers Care Customer Service Agent Name Role Phone Jorge Espinosa Primary Care Provider [phone] Antwon Mirza MD Unavailable [phone] Roland Patel MD Unavailable [phone] Reason for Visit * Episode Based Medications (Routine) - Authorized Specialty Diagnoses / Procedures Referred By Contac t Referred To Contact Diagnoses Oropharyngeal cancer (HCC) Antwon Mirza MD [address] [place] [address] Phone: tel: fax: [facility] Oncology Services [address] [place] [address] Phone: tel: fax: Referral ID Status Reason Start Date Expiration Date V isits Requested Visits Authorized [id number] Authorized 05/09/2023 1 24 Encounter Details Date Type Department Care Team (Latest Contact Info) Description 06/02/2023 1:30 PM CDT Clinical Support 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
--- OUTSIDE RECORDS SUMMARY | 2024-02-15 13:37 | XMS_ITS | Encounter Summary ---
Author Organization [facility] Address [address] [facility] 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 Gender Identity Not on file Sexual [...] MODEL Reference Point Dosage Given to Date [id number] Gy ARIA RO MODEL Reference Point Session Dosage Given [id number] Gy ARIA RO MODEL Plan ID [id number] [...] ORDERABLES F inal Result Performing Organization Address City/State/[facility] Co de Phone Number ARIA RO MODEL [address] [place] [address] documented in this encounter Visit Diagnoses Not on filedocumented in this encounter Care Teams Mash Tub Cooker Relationship Specialty Start Date End Date Jorge Espinosa PA [address] [place] [address] PCP - General Physician Metal Sander And Finisher 04/11/23 Antwon Mirza MD [address] [place] [address] Consulting Physician Medical Oncology 05/04/23 Roland Patel MD [address] [place] [address] Consulting Physician Radiation Oncology 05/04/23 documented as of this encounter
--- OUTSIDE RECORDS SUMMARY | 2024-02-15 13:37 | XMS_ITS | Encounter Summary ---
Author Organization [facility] Address [address] [facility] [place] [address] Phone Care Team Providers Care Manager Operations Name Role Phone Jorge Espinosa Primary Care Provider [phone] Antwon Mirza MD Unavailable [phone] Roland Patel MD Unavailable [phone] Encounter Details Date Type Department Care Team (Late st Contact Info) Description 05/20/[address] 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
--- OUTSIDE RECORDS SUMMARY | 2024-02-15 13:37 | XMS_ITS | Encounter Summary ---
Author Organization [facility] Address [address] [facility] 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 Gender Identity Not on file Sexual [...] MODEL Reference Point Dosage Given to Date [id number] Gy ARIA RO MODEL Reference Point Session Dosage Given [id number] Gy ARIA RO MODEL Plan ID [id number] [...] de Phone Number ARIA RO MODEL [address] [place] [address] documented in this encounter Visit Diagnoses Not on filedocumented in this encounter Care Teams Music Theory Professor Relationship Specialty Start Date End Date Jorge Espinosa PA [address] [place] [address] PCP - General Physician Rn Building 04/11/23 Antwon Mirza MD 0 [place] [address] Consulting Physician Medical Oncology 05/04/23 Roland Patel MD [address] [place] [address] Consulting Physician Radiation Oncology 05/04/23 documented as of this encounter
--- OUTSIDE RECORDS SUMMARY | 2024-02-15 13:37 | XMS_ITS | Encounter Summary ---
Author Organization [facility] Address [address] [facility] 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 Gender Identity Not on file Sexual [...] 12.00 10(3)/mcL 07/06/2023 1:50 PM CDT [facility] RBC 4.26(L) 4.40 - 5.80 10(6)/mcL 07/06/2023 1:50 PM CDT [facility] HEMOGLOBIN (HGB) 11.4(L) 13.0 - 16.5 g/dL 07/06/2023 1:50 PM CDT [facility] HEMATOCRIT (HCT) 35.8(L) 38.0 - 50.0 % 07/06/2023 1:50 PM CDT [facility] MCV 84.0 82.0 - 96.0 fL 07/06/2023 1:50 PM CDT [facility] MCH 26.8 26.0 - 32.0 pg 07/06/2023 1:50 PM CDT [facility] MCHC 31.8 31.0 - 36.0 g/dL 07/06/2023 1:50 PM CDT [facility] PLATELET COUNT 327 140 - 440 10(3)/mcL 07/06/2023 1:50 PM CDT [facility] RDW 16.7(H) 11.8 - 15.5 % 07/06/2023 1:50 PM CDT [facility] MPV 8.9 8.0 - 12.6 fL 07/06/2023 1:50 PM CDT [facility] NEUTROPHILS 77.4(H) 40.0 - 68.0 % 07/06/2023 1:50 PM CDT [facility] LYMPHOCYTES 9.7(L) 19.0 - 49.0 % 07/06/2023 1:50 PM CDT [facility] MONOCYTES 12.2 3.0 - 13.0 % 07/06/2023 1:50 PM CDT [facility] EOSINOPHILS 0.5 0.0 - 8.0 % 07/06/2023 1:50 PM CDT [facility] BASOPHILS 0.2 0.0 - 1.0 % 07/06/2023 1:50 PM CDT [facility] ABSOLUTE NEUTROPHILS 3.43 1.40 - 5.30 10(3)/mcL 07/06/2023 1:50 PM CDT [facility] ABSOLUTE LYMPHOCYTES 0.43(L) 0.90 - 3.30 10(3)/[facility] 07/06/2023 1:50 PM CDT [facility] ABSOLUTE MONOCYTES 0.54 0.10 - 0.90 10(3)/mcL 07/06/2023 1:50 PM CDT [facility] ABSOLUTE EOSINOPHIL 0.02 0.00 - 0.50 10(3)/[facility] 07/06/2023 1:50 PM CDT [facility] ABSOLUTE BASOPHILS 0.01 0.00 - 0.10 10(3)/[facility] 07/06/2023 1:50 PM CDT [facility] NRBC PER 100 WBC 0 07/06/19 1:50 PM CDT [facility] Blood Venipuncture / Unknown 07/06/2023 1:30 PM CDT 07/06/2023 1:39 PM CDT us Antwon Mirza MD HEMATOLOGY ORDERABLES Fi nal Result [facility] [address] [place] [address] * (ABNORMAL) CMP (COMPREHENSIVE METABOLIC PANEL) (07/06/2023 1:30 PM CDT) SODIUM 137 136 - 145 mmol/L 07/06/2023 2:18 PM CDT [facility] POTASSIUM 3.8 3.5 - 5.1 mmol/L 07/06/2023 2:18 PM CDT [facility] CHLORIDE 95(L) 98 - 107 mmol/L 07/06/2023 2:18 PM CDT [facility] CO2, VENOUS 35(H) 22 - 30 mmol/L 07/06/2023 2:18 PM CDT [facility] ANION GAP 10.8 <18.0 mmol/L 07/06/2023 2:18 PM CDT [facility] GLUCOSE 98 70 - 99 mg/dL 07/06/2023 2:18 PM CDT [facility] BUN 40(H) 8 - 26 mg/dL 07/06/2023 2:18 PM CDT [facility] CREATININE, BLOOD 0.58(L) 0.70 - 1.30 mg/dL 07/06/2023 2:18 PM CDT [facility] BUN/CREATININE RATIO 69(H) 12 - 20 ratio 07/06/2023 2:18 PM CDT [facility] TOTAL PROTEIN 7.2 6.3 - 8.2 g/dL 07/06/2023 2:18 PM CDT [facility] ALBUMIN 2.7(L) 3.5 - 5.0 g/dL 07/06/2023 2:18 PM CDT [facility] A/G RATIO 0.6(L) 1.0 - 2.2 07/06/2023 2:18 PM CDT [facility] CALCIUM 9.0 8.7 - 10.5 mg/dL 07/06/2023 2:18 PM CDT [facility] T BILI 0.4 0.2 - 1.2 mg/dL 07/06/2023 2:18 PM CDT [facility] SGOT (AST) 90(H) 5 - 34 U/L 07/06/2023 2:18 PM CDT [facility] SGPT (ALT) 40 0 - 55 U/L 07/06/2023 2:18 PM CDT [facility] ALKALINE PHOSPHATASE 82 40 - 150 U/L 07/06/2023 2:18 PM CDT [facility] IS THE PATIENT REQUIRED TO BE FASTING? No 07/06/2023 2:18 PM CDT [facility] GFR, ESTIMATED >60 >=60 07/06/2023 2:18 PM CDT [facility] Comment: Creatinine Clearance is the preferred criteria for selecting drug dose adjustments in renally impaired patients. ??The GFR is provided as additional pertinent clinical information. GFR is reported in mL/min/1.73 sq m. Calculation based on the Chronic Kidney Disease Epidemiology Collaboration (CKD- EPI) equation refit without adjustment for race. GFR, EST. >60 >=60 2:18 PM CDT [facility] GFR, EST. NONAFRICAN >60 >=60 07/06/2023 2:18 PM CDT [facility] Blood Venipuncture / Unknown 07/06/2023 1:30 PM CDT 07/06/2023 1:39 PM CDT us Antwon Mirza MD CHEMISTRY ORDERABLES Fin al Result [facility] [address] [place] [address] documented in this encounter Visit Diagnoses Diagnosis Oropharyngeal cancer (HCC) Malignant neoplasm of oropharynx, unspecified site documented in this encounter Care Teams Licensed Life And Health Agent Relationship Specialty Start Date End Date Jorge Espinosa PA [address] [place] [address] PCP - General Physician Wire Machine Cutter 04/11/23 Antwon Mirza MD [address] [place] [address] Consulting Physician Medical Oncology 05/04/23 Roland Patel MD [address] [place] [address] Consulting Physician Radiation Oncology 05/04/23 documented as of this encounter
--- OUTSIDE RECORDS SUMMARY | 2024-02-15 13:37 | XMS_ITS | Encounter Summary ---
Author Organization [facility] Address [address] [facility] 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 Gender Identity Not on file Sexual [...] MODEL Reference Point Dosage Given to Date [id number] Gy ARIA RO MODEL Reference Point Session Dosage Given [id number] Gy ARIA RO MODEL Plan ID [id number] [...] ORDERABLES F inal Result Performing Organization Address City/State/[facility] Co de Phone Number ARIA RO MODEL [address] [place] [address] documented in this encounter Visit Diagnoses Not on filedocumented in this encounter Care Teams Special Services Coordinator Relationship Specialty Start Date End Date Jorge Espinosa PA [address] [place] [address] PCP - General Physician Fiberline Supervisor 04/11/23 Antwon Mirza MD [address] [place] [address] Consulting Physician Medical Oncology 05/04/23 Roland Patel MD [address] [place] [address] Consulting Physician Radiation Oncology 05/04/23 documented as of this encounter
--- OUTSIDE RECORDS SUMMARY | 2024-02-15 13:37 | XMS_ITS | Encounter Summary ---
Author Organization [facility] Address [address] [facility] [place] [address] Phone Care Team Providers Care Educational Therapist Name Role Phone Jorge Espinosa Primary Care Provider [phone] Antwon Mirza MD Unavailable Roland Patel MD Unavailable Encounter Details Date Type Department Care Team (Latest Contact Info) Description 06/23/2023 1:00 PM CDT Clinical Support 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
--- OUTSIDE RECORDS SUMMARY | 2024-02-15 13:37 | XMS_ITS | Encounter Summary ---
Author Organization [facility] Address [address] 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
--- OUTSIDE RECORDS SUMMARY | 2024-02-15 13:37 | XMS_ITS | Encounter Summary ---
Author Organization [facility] Address [address] [place] [address] [facility] [place] [address] Phone Care Team Providers Care Java Programming Professor Name Role Phone Jorge Espinosa Primary Care Provider Antwon Mirza MD Unavailable [phone] Roland Patel MD Unavailable [phone] Encounter Details Date Type Department Care Team (Late st Contact Info) Description 06/08/2023 Documentation Only [facility] Oncology Services [address] [place] [address] Roland Patel MD [address] [place] [address] Social History Tobacco Use Types Packs/Day Years Used Date Smoking Tobacco: Every Day Cigarettes 0.5 50.9 Started: 1974 Smokeless Tobacco: Never Alcohol Use Standard Drinks/Week Comments Yes 0 (1 standard drink = 0.6 oz pure alcohol) Occasionally, never a regular drinker Sex and Gender Information Value Date Recorded Sex Assigned at Not on file 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
--- OUTSIDE RECORDS SUMMARY | 2024-02-15 13:37 | XMS_ITS | Encounter Summary ---
Author Organization [facility] Address [address] [facility] [place] [address] Phone Care Team Providers Care Heating Mechanic Name Role Phone Jorge Espinosa Primary Care Provider [phone] Antwon Mirza MD Unavailable [phone] Roland Patel MD Unavailable [phone] Reason for Visit * Reason Comments Cancer Oropharyngeal squamo us cell carcinoma, p16+. 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 Gender Identity Not on file Sexual Orientation [...] MD - 06/14/2023 12:45 PM CDT [facility] RADIATION ONCOLOGY ON TREATMENT VISIT [...] Espinosa PA as PCP - General (Physician Oil Pipe Inspector Helper) Antwon Mirza MD as Consulting Physician (Medical [...] (HCC) documented in this encounter Care Teams Heating Mechanic Relationship Specialty Start Date End Date Jorge Espinosa PA [address] [place] [address] PCP - General Physician Oil Pipe Inspector Helper 04/11/23 Antwon Mirza MD [address] [place] [address] Consulting Physician Medical Oncology 05/04/23 Roland Patel MD [address] [place] [address] Consulting Physician Radiation Oncology 05/04/23 documented as of this encounter
--- OUTSIDE RECORDS SUMMARY | 2024-02-15 13:37 | XMS_ITS | Encounter Summary ---
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
--- OUTSIDE RECORDS SUMMARY | 2024-02-15 13:38 | XMS_ITS | Encounter Summary ---
Author Organization [facility] Address [address] [facility] [place] [address] Phone Care Team Providers Care Wool Brusher Name Role Phone Jorge Espinosa Primary Care Provider [phone] Antwon Mirza MD Unavailable [phone] Roland Patel MD Unavailable [phone] Encounter Details Date Type Department Care Team (Late st Contact Info) Description 05/11/2023 Telephone [facility] Oncology Services [address] [place] [address] Lisa Burden, RN [place] Social History Tobacco Use Types Packs/Day Years Used Date Smoking Tobacco: Every Day Cigarettes 0.5 50.9 Started: 1974 Smokeless Tobacco: Never Alcohol Use Standard Drinks/Week Comments Yes 0 (1 standard drink = 0.6 oz pure alcohol) Occasionally, never a regular drinker Sex and Gender Information Value Date Recorded Sex Assigned at Not on file 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 Gender Identity Not on file Sexual [...] number with a message left on the [employer] for them to please contact our office documented in this encounter Plan of Treatment Not on file documented as of this encounter Visit Diagnoses Not on filedocumented in this encounter Care Teams Wool Brusher Relationship Specialty Start Date End Date Jorge Espinosa PA [address] [place] [address] PCP - General Physician Carburizing Furnace Operator 04/11/23 Anwton Mirza MD [address] [place] [address] Consulting Physician Medical Oncology 05/04/23 Roland Patel MD [address] [place] [address] Consulting Physician Radiation Oncology 05/04/23 documented as of this encounter
--- OUTSIDE RECORDS SUMMARY | 2024-02-15 13:38 | XMS_ITS | Encounter Summary ---
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
--- OUTSIDE RECORDS SUMMARY | 2024-02-15 13:38 | XMS_ITS | Encounter Summary ---
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
--- OUTSIDE RECORDS SUMMARY | 2024-02-15 13:38 | XMS_ITS | Encounter Summary ---
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
--- OUTSIDE RECORDS SUMMARY | 2024-02-15 13:38 | XMS_ITS | Encounter Summary ---
Author Organization [facility] Address [address] [facility] 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 for evaluation. Aleksey recalls Niece voiced concerns roughly 12 months ago, as she was only seeing him few times per year. Patient recalls experiencing syncopal event prior to presenting to [facility] via [facility]. He recites prior to LOC he was experiencing hemoptysis with increase in blood expressed withcough as episode continued. He was transferred from [facility] to [facility] after CT neck showed large mass [...] for malignancy such as SCC involvingL parapharyngeal, litigation attorney associate, submandibular, sublingual spaces with ossesous involvement of [...] time. Aleksey attempted to establish care with [facility], unfortunately out of network with [...] nausea. 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 7. Continue [...] lbs prior to presenting to ED at [facility] for evaluation. Aleksey recalls Niece voiced concerns roughly 12 months ago, as she was only seeing him few times per year. Patient recalls experiencing syncopal event prior to presenting to [facility] via [facility]. He recites prior to LOC he was experiencing hemoptysis with increase in blood expressed withcough as episode continued. He was transferred from [facility] to [facility] after CT neck showed large mass [...] for malignancy such as SCC involvingL parapharyngeal, litigation attorney associate, submandibular, sublingual spaces with ossesous involvement of [...] time. Aleksey attempted to establish care with 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 7. Continue [...] phase documented in this encounter Care Teams Frame Gate Mortiser Operator Relationship Specialty Start Date End Date Jorge Espinosa PA [address] [place] [address] PCP - General Physician Cementer Machine Joiner 04/11/23 Antwon Mirza MD [address] [place] [address] Consulting Physician Medical Oncology 05/04/23 Roland Patel MD [address] [place] [address] Consulting Physician Radiation Oncology 05/04/23 documented as of this encounter
--- OUTSIDE RECORDS SUMMARY | 2024-02-15 13:38 | XMS_ITS | Encounter Summary ---
Author Organization [facility] Address [address] [place] [address] Phone Care Team Providers Care Cleaner Assistant Name Role Phone Jorge Espinosa Primary Care Provider [phone] Antwon Mirza MD Unavailable [phone] Roland Patel MD Unavailable [phone] Reason for Visit * Episode Based Medications (Routine) - Authorized Specialty Diagnoses / Procedures Referred By Contac t Referred To Contact Diagnoses Oropharyngeal cancer (HCC) Antwon Mirza MD [address] [place] [address] Phone: tel: fax: [facility] Oncology Services [address] [place] [address] Phone: tel: fax: Referral ID Status Reason Start Date Expiration Date V isits Requested Visits Authorized [id number] Authorized 05/09/2023 1 24 Encounter Details Date Type Department Care Team (Latest Contact Info) Description 05/12/2023 9:00 AM CDT Clinical Support [facility] Oncology Services [address] [place] [address] Antwon Mirza MD [address] [place] [address] Oropharyngeal cancer (HCC) (Primary Dx) [...] on file 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 Gender Identity Not on file Sexual [...] 05/12/2023 9:00 AM CDT Nutrition Follow-Up; 05/12/2023-weekly hf=451# 9oz (wt up 2# from last week); Pt administering 5 cartons of Nutren 1.5 daily; consuming oral fluids to maintain swallowing muscles curing treatment; Maintaining head elevation, sleeps with 2-3 pillows (& has for years); Pt brought DME information ([facility] [phone]) Faxed [facility] to request PEG TF increase, to 5 cartons Nutren 1.5 per day (faxed to [phone]) * Interdisciplinary - Kamila Barron RN - [...] - 12.00 10(3)/mcL 05/12/2023 9:44 AM CDT [facility] RBC 4.12(L) 4.40 - 5.80 10(6)/mcL 05/12/2023 9:44 AM CDT [facility] HEMOGLOBIN (HGB) 11.2(L) 13.0 - 16.5 g/dL 05/12/2023 9:44 AM CDT [facility] HEMATOCRIT (HCT) 35.6(L) 38.0 - 50.0 % 05/12/2023 9:44 AM CDT [facility] MCV 86.4 82.0 - 96.0 fL 05/12/2023 9:44 AM CDT [facility] MCH 27.2 26.0 - 32.0 pg 05/12/2023 9:44 AM CDT [facility] MCHC 31.5 31.0 - 36.0 g/dL 05/12/2023 9:44 AM CDT [facility] PLATELET COUNT 371 140 - 440 10(3)/mcL 05/12/2023 9:44 AM CDT [facility] RDW 13.9 11.8 - 15.5 % 05/12/2023 9:44 AM CDT [facility] MPV 9.1 8.0 - 12.6 fL 05/12/2023 9:44 AM CDT [facility] NEUTROPHILS 60.4 40.0 - 68.0 % 05/12/2023 9:44 AM CDT [facility] LYMPHOCYTES 20.7 19.0 - 49.0 % 05/12/2023 9:44 AM CDT [facility] MONOCYTES 14.4(H) 3.0 - 13.0 % 05/12/2023 9:44 AM CDT [facility] EOSINOPHILS 3.9 0.0 - 8.0 % 05/12/2023 9:44 AM CDT [facility] BASOPHILS 0.6 0.0 - 1.0 % 05/12/2023 9:44 AM CDT [facility] ABSOLUTE NEUTROPHILS 2.97 1.40 - 5.30 10(3)/mcL 05/12/2023 9:44 AM CDT [facility] ABSOLUTE LYMPHOCYTES 1.02 0.90 - 3.30 10(3)/mcL 05/12/2023 9:44 AM CDT [facility] ABSOLUTE MONOCYTES 0.71 0.10 - 0.90 10(3)/mcL 05/12/2023 9:44 AM CDT [facility] ABSOLUTE EOSINOPHIL 0.19 0.00 - 0.50 10(3)/mcL 05/12/2023 9:44 AM CDT [facility] ABSOLUTE BASOPHILS 0.03 0.00 - 0.10 10(3)/[facility] 05/12/2023 9:44 AM CDT [facility] NRBC PER 100 WBC 0 05/12/19 9:44 AM CDT [facility] Blood Venipuncture / Unknown 05/12/2023 9:33 AM CDT 05/12/2023 9:33 AM CDT Antwon Mirza MD HEMATOLOGY ORDERABLES Fi nal Result [facility] [address] [place] [address] * MAGNESIUM (MG) (05/12/2023 9:33 AM CDT) MAGNESIUM 2.3 1.6 - 2.6 mg/dL 05/12/2023 10:12 AM CDT [facility] Blood Venipuncture / Unknown 05/12/2023 9:33 AM CDT 05/12/2023 9:33 AM CDT Antwon Mirza MD CHEMISTRY ORDERABLES Fin al Result [facility] [address] [place] [address] * (ABNORMAL) CMP (COMPREHENSIVE METABOLIC PANEL) (05/12/2023 9:33 AM CDT) SODIUM 132(L) 136 - 145 mmol/L 05/12/2023 10:12 AM CDT [facility] POTASSIUM 4.1 3.5 - 5.1 mmol/L 05/12/2023 10:12 AM CDT [facility] CHLORIDE 95(L) 98 - 107 mmol/L 05/12/2023 10:12 AM CDT [facility] CO2, VENOUS 31(H) 22 - 30 mmol/L 05/12/2023 10:12 AM CDT [facility] ANION GAP 10.1 <18.0 mmol/L 05/12/2023 10:12 AM CDT [facility] GLUCOSE 106(H) 70 - 99 mg/dL 05/12/2023 10:12 AM CDT [facility] BUN 37(H) 8 - 26 mg/dL 05/12/2023 10:12 AM CDT [facility] CREATININE, BLOOD 0.72 0.70 - 1.30 mg/dL 05/12/2023 10:12 AM CDT [facility] BUN/CREATININE RATIO 51(H) 12 - 20 ratio 05/12/2023 10:12 AM CDT [facility] TOTAL PROTEIN 7.9 6.3 - 8.2 g/dL 05/12/2023 10:12 AM CDT [facility] ALBUMIN 3.6 3.5 - 5.0 g/dL 05/12/2023 10:12 AM CDT [facility] A/G RATIO 0.8(L) 1.0 - 2.2 05/12/2023 10:12 AM CDT [facility] CALCIUM 9.4 8.7 - 10.5 mg/dL 05/12/2023 10:12 AM CDT [facility] T BILI 0.3 0.2 - 1.2 mg/dL 05/12/2023 10:12 AM CDT [facility] SGOT (AST) 73(H) 5 - 34 U/L 05/12/2023 10:12 AM CDT [facility] SGPT (ALT) 47 0 - 55 U/L 05/12/2023 10:12 AM CDT [facility] ALKALINE PHOSPHATASE 84 40 - 150 U/L 05/12/2023 10:12 AM CDT [facility] IS THE PATIENT REQUIRED TO BE FASTING? No 05/12/2023 10:12 AM CDT [facility] GFR, ESTIMATED >60 >=60 05/12/2023 10:12 AM CDT [facility] Comment: Creatinine Clearance is the preferred criteria for selecting drug dose adjustments in renally impaired patients. ??The GFR is provided as additional pertinent clinical information. GFR is reported in mL/min/1.73 sq m. Calculation based on the Chronic Kidney Disease Epidemiology Collaboration (CKD- EPI) equation refit without adjustment for race. GFR, EST. >60 >=60 024 10:12 AM CDT [facility] GFR, EST. NONAFRICAN >60 >=60 05/12/2023 10:12 AM CDT [facility] Blood Venipuncture / Unknown 05/12/2023 9:33 AM CDT 05/12/2023 9:33 AM CDT us Antwon Mirza MD CHEMISTRY ORDERABLES Fin al Result [facility] [address] [place] [address] * RAD ONC ARIA SESSION SUMMARY (05/12/2023 [...] MODEL Reference Point Dosage Given to Date [id number] Gy ARIA RO MODEL Reference Point Session Dosage Given [id number] Gy ARIA RO MODEL Plan ID [id number] [...] F inal Result ARIA RO MODEL [address] [place] [address] documented in this encounter Visit Diagnoses Diagnosis [...] mg documented in this encounter Care Teams Cleaner Assistant Relationship Specialty Start Date End Date Jorge Espinosa PA [address] [place] [address] PCP - General Physician Purchasing/Receiving 04/11/23 Antwon Mirza MD [address] [place] [address] Consulting Physician Medical Oncology 05/04/23 Roland Patel MD [address] [place] [address] Consulting Physician Radiation Oncology 05/04/23 documented as of this encounter
--- OUTSIDE RECORDS SUMMARY | 2024-02-15 13:38 | XMS_ITS | Encounter Summary ---
Author Organization [facility] Address [address] [facility] [place] [address] Phone Care Team Providers Care Care Assistant Name Role Phone Jorge Espinosa Primary Care Provider [phone] Antwon Mirza MD Unavailable [phone] Roland Patel MD Unavailable [phone] Reason for Visit * Reason Comments Cancer Encounter Details Date Type Department Care Team (Late st Contact Info) Description 05/12/2023 8:45 AM CDT [facility] [address] [place] [address] Roland Patel MD [address] [place], [place] [id number] Hiren Lester MD [address] [place] [id number] Head and neck cancer (HCC) (Primary [...] file 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
--- OUTSIDE RECORDS SUMMARY | 2024-02-15 13:38 | XMS_ITS | Encounter Summary ---
Author Organization [facility] Address [address] [facility] [place] [address] Phone Care Team Providers Care Director Of Guidance Name Role Phone Jorge Espinosa Primary Care Provider [phone] Antwon Mirza MD Unavailable Roland Patel MD Unavailable [phone] Reason for Visit * Reason Comments Cancer Encounter Details Date Type Department Care Team (Latest Contact Info) Description 05/16/2023 2:00 PM CDT [facility] [address] [place] [address] Roland Patel MD [address] [place], [place] [id number] Hiren Lester MD [address] [place] [phone] Oropharyngeal cancer (HCC) (Primary Dx); Head [...] file 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 Gender Identity Not on file Sexual Orientation [...] MD - 05/16/2023 1:45 PM CDT [facility] ONCOLOGY ON TREATMENT VISIT Patient Name: [...] Espinosa PA as PCP - General (Physician Chief Of Safety And Protection) Antwon Mirza MD as Consulting Physician (Medical Oncology) Roland Patel MD as Consulting Physician (Radiation Oncology) documented in this encounter Plan of Treatment Not on file documented as of this encounter Visit Diagnoses Diagnosis Oropharyngeal cancer (HCC)- Primary Malignant neoplasm of oropharynx, unspecified on site nurse and neck cancer (HCC) Malignant neoplasm of head, face, and neck Status post insertion of percutaneous endoscopic gastrostomy (PEG) tube (HCC) documented in this encounter Care Teams Director Of Guidance Relationship Specialty Start Date End Date Jorge Espinosa PA [address] [place] [address] PCP - General Physician Chief Of Safety And Protection 04/11/23 Antwon Mirza MD [address] [place] [address] Consulting Physician Medical Oncology 05/04/23 Roland Patel MD [address] [place] [address] Consulting Physician Radiation Oncology 05/04/23 documented as of this encounter
--- OUTSIDE RECORDS SUMMARY | 2024-02-15 13:38 | XMS_ITS | Encounter Summary ---
Author Organization [facility] Address [address] [place] [address] Phone Care Team Providers Care Review Analyst Name Role Phone Jorge Espinosa Primary Care Provider [phone] Reason for Referral * Medical Care (Routine) - Closed Specialty Diagnoses / Procedures Referred By Contac t Referred To Contact Oncology Diagnoses Oropharyngeal cancer (HCC) Procedures OFFICE/OP NEW LVL 3 LOW MDM/30-44 MIN OFFICE/OP EST LVL 3 LOW MDM/20-29 MIN Antwon Mirza MD [address] [place] [address] Phone: tel: fax: [facility] Oncology Services [address] [place] [address] Phone: tel: fax: Referral ID Status Reason Start Date Expiration Date Visits Re quested Visits Authorized [id number] Closed 04/12/2023 1 11 Scheduling Instructions Aleksey [...] of percutaneous endoscopic gastrostomy (PEG) tube (HCC) AL TECHNICIAN INSTRUCTOR Reason for Visit * Reason Comments New Patient * Consult, Test & Initiate Treatment (Routine) - Closed Specialty Diagnoses / Procedures Referred By Contbisi t Referred To Contact Oncology Diagnoses Squamous cell carcinoma of oropharynx (HCC) Logan Alvarado MD [address] [facility] [place] [address] Phone: tel: fax: Antwon Mirza MD [address] [place] [address] Phone: tel: fax: Referral ID Status Reason Start Date Expiration Date Visits Re quested Visits Authorized [id number] Closed 1 1 Encounter Details Date Type Department Care Team (Late st Contact Info) Description 04/11/2023 2:40 PM DENTAL TECHNICIAN INSTRUCTOR Office [facility] On[facility] [address] [place] [address] Antwon Mirza MD [address] [place] [address] Current smoker (Primary Dx); Oropharyngeal [...] on file Legal Sex Male 3:34 PM DENTAL TECHNICIAN INSTRUCTOR Gender Identity Not on file Sexual Orientation Not on file documented as of this encounter Last Filed Vital Signs Vital Sign Reading Time Taken Comments Blood Pressure 148/78 04/11/2023 3:55 PM DENTAL TECHNICIAN INSTRUCTOR Pulse 81 04/11/2023 3:55 PM DENTAL TECHNICIAN INSTRUCTOR Temperature 36.8 ??C (98.3 ??F) 04/11/2023 3:55 PM CS T Respiratory Rate 16 04/11/2023 3:55 PM DENTAL TECHNICIAN INSTRUCTOR Oxygen Saturation 97% 04/11/2023 3:55 PM DENTAL TECHNICIAN INSTRUCTOR Inhaled Oxygen Concentration - - Weight 48.1 kg (106 lb 1.6 oz) 04/11/2023 3:55 P M DENTAL TECHNICIAN INSTRUCTOR Height 165.1 cm (5' 5 ) 04/11/2023 3:55 PM DENTAL TECHNICIAN INSTRUCTOR Body Mass Index 17.66 04/11/2023 3:55 PM DENTAL TECHNICIAN INSTRUCTOR documented in this encounter Progress Notes * [...] Aleksey recites he recently relocated to the [facility] from [place]. He recites growing up in [place] prior to moving [place] to [place]. Aleksey recites moving back to [facility], following with Junito Ibanez for primary care management. He recites this started roughly 4-5 months ago when he started experiencing progressively worsening dysphagia. Patient reports losing approximately 40 lbs prior to presenting to ED for evaluation. Aleksey recalls Niece voiced concerns [id number] months ago, as she was only seeing him few times per year. Patient recalls experiencing syncopalevent prior to presenting to [facility] via [facility]. He recites prior to LOC he was experiencinghemoptysis with increase in blood expressed with cough as episode continued. He was transferred from [facility] to [facility] after CT neck showed large mass [...] malignancy such as SCC involving L parapharyngeal, wet end helper, submandibular, sublingual spaces with ossesous involvement of [...] this time.Aleksey attempted to establish care with [facility], unfortunately out of network with hisinsurance. Aleksey is currently using PEG tube to maintain weight with Osmolite 1.5 calorie formula, 1 carton per day. He denies using 4 cartons per day as prescribed by correspondence specialist while inpatient. 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 Genetics Risk Assessment Discussed/N/A Allergies as of [...] with involvement of the left nasopharynx, left wet end helper, submandibular, and sublingual spaces, left tonsillar fossa, [...] squamous cell carcinoma involving the left parapharyngeal, wet end helper, submandibular, and sublingual spaces with osseous involvement [...] for Antwon Haro MD. 04/11/2023, 3:52 PM DENTAL TECHNICIAN INSTRUCTOR AL TECHNICIAN INSTRUCTOR * Antwon Mirza MD - 04/11/2023 2:40 PM CST OUTPATIENT HEMATOLOGY-ONCOLOGY CONSULT/H&P DATE OF CONSULT:04/11/23 REFERRING PHYSICIAN: Logan Alvarado MD REASON FOR CONSULTATION: Squamous Cell Carcinoma of left oropharynx , p16 positive Present Illness Aleksey Godfrey is a very pleasant 63 y.o. 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 Aleksey recites he recently relocated to the [facility] from [place]. He recites growing up in [place] prior to moving [place] to [place]. Aelksey recites moving back to [facility], following with Junito Ibanez for primary care management. He recites symptoms of dysphagia startedroughly 4-5 months ago when he started experiencing progressively worsening dysphagia. Patient reports losing approximately 40 lbs prior to presenting to ED at [facility] for evaluation. Hugo Phelps voiced concerns roughly 12 months ago, as she was only seeing him few times per year. Patient recalls experiencing syncopal event prior to presenting to [facility] via [facility]. He recites prior to LOC he was experiencing hemoptysis with increase in blood expressed with cough as episode continued. He was transferred from [facility] to [facility] after CT neck showed large mass [...] malignancy such as SCC involving L parapharyngeal, wet end helper, submandibular, sublingual spaces with ossesous involvement of [...] time. Aleksey attempted to establish care with [facility], unfortunately out of network with his insurance. Aleksey is currently using PEG tube to maintain weight with Osmolite 1.5 calorie formula, 1 carton per day. He denies using 4 cartons per day as prescribed by correspondence specialist while inpatient. 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 Genetics Risk Assessment Discussed/N/A Allergies as of [...] with involvement of the left nasopharynx, left wet end helper, submandibular, and sublingual spaces, left tonsillar fossa, [...] squamous cell carcinoma involving the left parapharyngeal, wet end helper, submandibular, and sublingual spaces with osseous involvement [...] for Antwon Haro MD. 04/13/2023, 1:17 PM DENTAL TECHNICIAN INSTRUCTOR The documentation recorded by the scribe was completed while in the exam room with me and the patient. The documentation accurately reflects the service I personally performed and the decisions made by me. I have confirmed and edited the documentation as necessary. Antwon Mirza MD 04/13/2023, 1:21 PM DENTAL TECHNICIAN INSTRUCTOR AL TECHNICIAN INSTRUCTOR documented in this encounter Miscellaneous Notes * Interdisciplinary - Ketty Dewitt MA - 04/11/2023 2:40 PM CST New pt consult for oropharynx cancer. No pain, today. Reviewed meds with pt and they were updated to the best of my ability--tjo AL TECHNICIAN INSTRUCTOR * Interdisciplinary - Katerin Pride LPN - [...] asked to call me with any questions/concerns. AL TECHNICIAN INSTRUCTOR documented in this encounter Plan of Treatment [...] (HCC) documented in this encounter Care Teams Review Analyst Relationship Specialty [place] [address] [place] [address] PCP - General Physician Rn Hyperbaric 04/11/23 documented as of this encounter
--- OUTSIDE RECORDS SUMMARY | 2024-02-15 13:38 | XMS_ITS | Encounter Summary ---
Author Organization [facility] Care Team Providers Care Alarm Installer Name Role Phone Jorge Espinosa Primary Care Provider [phone] Antwon Mirza MD Unavailable [phone] Roland Patel MD Unavailable [phone] Encounter Details Date Type Department Care Team [...] on file Legal Sex Male 3:34 PM PRACTICE OFFICE ASSOCIATE Gender Identity Not on file Sexual Orientation Not on file documented as of this encounter Plan of Treatment Not on file documented as of this encounter Visit Diagnoses Not on filedocumented in this encounter Care Teams Alarm Installer Relationship Specialty Start Date End Date Jorge Espinosa PA [address] [place] [address] PCP - General Physician Journeyman Electrician 04/11/23 Antwon Mirza MD [address] [place] [address] Consulting Physician Medical Oncology 05/04/23 Roland Patel MD [address] [place] [address] Consulting Physician Radiation Oncology 05/04/23 documented as of this encounter
--- OUTSIDE RECORDS SUMMARY | 2024-02-15 13:38 | XMS_ITS | Encounter Summary ---
Author Organization [facility] Address [address] [facility] [place] [address] Phone Care Team Providers Care Radar Scientist Name Role Phone Jorge Espinosa Primary Care Provider [phone] Antwon Mirza MD Unavailable [phone] Roland Patel MD Unavailable Encounter Details Date Type Department Care Team (Latest Contact Info) Description 05/13/2023 1:30 PM CDT Clinical Support [facility] Oncology Services [address] [place] [address] Roland Patel MD [address] [place] [address] Discharge Disposition: Discharged to home [...] on file Legal Sex Male 3:34 PM LICENSED NUCLEAR CONTROL ROOM OPERATOR Gender Identity Not on file Sexual [...] MODEL Reference Point Dosage Given to Date [id number] Gy ARIA RO MODEL Reference Point Session Dosage Given [id number] Gy ARIA RO MODEL Plan ID [id number] [...] de Phone Number ARIA RO MODEL [address] [place] [address] documented in this encounter Visit Diagnoses Not on filedocumented in this encounter Care Teams Radar Scientist Relationship Specialty Start Date End Date Jorge Espinosa PA [address] [place] [address] PCP - General Physician Service Administrator 04/11/23 Antwon Mirza MD [address] [place] [address] Consulting Physician Medical Oncology 05/04/23 Roland Patel MD [address] [place] [address] Consulting Physician Radiation Oncology 05/04/23 documented as of this encounter
--- OUTSIDE RECORDS SUMMARY | 2024-02-15 13:38 | XMS_ITS | Encounter Summary ---
Author Organization [facility] Address [address] [place] [address] Phone Care Team Providers Care Pyrotechnician Name Role Phone Jorge Espinosa Primary Care Provider [phone] Antwon Mirza MD Unavailable [phone] Roland Patel MD Unavailable [phone] Reason for Visit * Radiology Services (Routine) - Closed Specialty Diagnoses / Procedures Referred By Contac t Referred To Contact Radiology Diagnoses Oropharyngeal cancer (HCC) Procedures RADIATION THERAPY PLANNING W/O CONTRAST BODY Roland Patel MD [address] [place] [address] Phone: tel: fax: Referral ID Status Reason Start Date Expiration Date Visits Re quested Visits Authorized [id number] Closed 04/19/2023 1 1 Encounter Details Date Type Department Care Team (Latest Contact Info) Description 05/04/2023 9:15 AM CDT Ancillary Procedure [facility] [address] [place] [address] Roland Patel MD [address] [place] [address] Encounter for radiotherapy (Primary Dx); [...] on file Legal Sex Male 3:34 PM DIETETIC AIDE Gender Identity Not on file Sexual [...] clinical presentation and course dating back to [facility] ED visit 03/21/2023 to the present were [...] placement Medications: zofran, oxycodone Vitamins: FeEO4 Labs: 03/30/23-PP=290, Ax=926, K=4.3, Mg=2.2, P=3.4, EGFR>90; Initial Wt: 100# [...] Loss Severe Triceps, Buccal Muscle Loss Severe Rover, Clavicle, Acromion, Patella region, inner Thigh Calf-not well developed; Fluid Accumulation None Noted Hand Section Supervisor Strength Unable to Assess A minimum of two characteristics are recommended for diagnosis of either moderate (non-severe) or severe malnutrition. These characteristics are indicative of severe malnutrition in the context of chronic illness. Estimated needs: Calories: 3551-3328 (35-40kcal/kg) Protein: 69-92gm (1.5-2gm/kg) Fluids: 1600ml A: [...] site documented in this encounter Care Teams Pyrotechnician Relationship Specialty Start Date End Date Jorge Espinosa PA [address] [place] [address] PCP - General Physician Core Winding Operator 04/11/23 Antwon Mirza MD [address] [place] [address] Consulting Physician Medical Oncology 05/04/23 Roland Patel MD [address] [place] [address] Consulting Physician Radiation Oncology 05/04/23 documented as of this encounter
--- OUTSIDE RECORDS SUMMARY | 2024-02-15 13:38 | XMS_ITS | Encounter Summary ---
Author Organization [facility] Address [address] [facility] [place] [address] Phone Care Team Providers Care Bulk System Operator Name Role Phone Jorge Espinosa Primary Care Provider [phone] Encounter Details Date Type Department Care Team (Late st Contact Info) Description 04/25/2023 Telephone [facility] Oncology Services [address] [place] [phone] Roland Patel MD [address] [place], [place] [id number] Social History Tobacco Use Types Packs/Day Years Used Date Smoking Tobacco: Every Day Cigarettes 0.5 50.9 Started: 1974 Smokeless Tobacco: Never Alcohol Use Standard Drinks/Week Comments Yes 0 (1 standard drink = 0.6 oz pure alcohol) Occasionally, never a regular drinker Sex and Gender Information Value Date Recorded Sex Assigned at Not on file Legal Sex Male 3:34 PM LABORATORY COORDINATOR Gender Identity Not on file Sexual [...] on filedocumented in this encounter Care Teams Bulk System Operator Relationship Specialty [place] [address] [place] [address] PCP - General Physician Paper Sales Representative 04/11/23 documented as of this encounter
--- OUTSIDE RECORDS SUMMARY | 2024-02-15 13:38 | XMS_ITS | Encounter Summary ---
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
--- OUTSIDE RECORDS SUMMARY | 2024-02-15 13:38 | XMS_ITS | Encounter Summary ---
Author Organization [facility] Address [address] [facility] [place] [address] Phone Care Team Providers Care Denture Finisher Name Role Phone Jorge Espinosa Primary Care Provider Encounter Details Date Type Department Care Team (Latest Contact Info) Description 04/19/2023 9:20 AM CDT - 04/19/2023 11:59 PM CDT Hospital Encounter [facility] [address] [place] [address] Roland Patel MD [address] [place] [address] Discharge Disposition: Discharged to home or Selfcare [...] file Legal Sex Male 3:34 PM PROGRAM MANAGEMENT INTERN Gender Identity Not on file Sexual Orientation [...] time period is included. Roland Patel MD [facility] CT ORDERABLES Final Result * PET REFERENCE IMAGES FOR IMPORT (04/19/2023 9:20 AM CDT) Roland Patel MD [facility] [place] ORDERABLES Final Result documented in this encounter Visit Diagnoses Not on filedocumented in this encounter Care Teams Denture Finisher Relationship Specialty Start Date End Date Jorge Esipnosa PA [address] [place] [address] PCP - General Physician Riveter 04/11/23 documented as of this encounter
--- OUTSIDE RECORDS SUMMARY | 2024-02-15 13:38 | XMS_ITS | Encounter Summary ---
Author Organization [facility] Address [address] [facility] [place] [address] Phone Care Team Providers Care Parer Name Role Phone Jorge Espinosa Primary Care Provider [phone] Antwon Mirza MD Unavailable Roland Patel MD Unavailable Encounter Details Date Type Department Care Team (Latest Contact Info) Description 05/16/2023 1:30 PM CDT Clinical Support [facility] Oncology Services [address] [place] [address] Roland Patel MD [address] [place] [address] Discharge Disposition: Discharged to home [...] on file Legal Sex Male 3:34 PM LICENSING SERVICES CLERK Gender Identity Not on file Sexual [...] MODEL Reference Point Dosage Given to Date [id number] Gy ARIA RO MODEL Reference Point Session Dosage Given [id number] Gy ARIA RO MODEL Plan ID [id number] [...] ORDERABLES F inal Result Performing Organization Address City/State/[facility] Co de Phone Number ARIA RO MODEL [address] [place] [address] documented in this encounter Visit Diagnoses Not on filedocumented in this encounter Care Teams Parer Relationship Specialty Start Date End Date Jorge Espinosa PA [address] [place] [address] PCP - General Physician Street Light Servicer 04/11/23 Antwon Mirza MD [address] [place] [address] Consulting Physician Medical Oncology 05/04/23 Roland Patel MD [address] [place] [address] Consulting Physician Radiation Oncology 05/04/23 documented as of this encounter
--- OUTSIDE RECORDS SUMMARY | 2024-02-15 13:38 | XMS_ITS | Encounter Summary ---
Author Organization [facility] Address [address] [facility] [place] [address] Phone Care Team Providers Care Roving Hand Name Role Phone Jorge Espinosa Primary Care Provider [phone] Encounter Details Date Type Department Care Team (Late st Contact Info) Description 05/03/2023 Telephone [facility] Oncology Services [address] [place] [phone] Roland Patel MD [address] [place], [place] [id number] Social History Tobacco Use Types Packs/Day Years Used Date Smoking Tobacco: Every Day Cigarettes 0.5 50.9 Started: 1974 Smokeless Tobacco: Never Alcohol Use Standard Drinks/Week Comments Yes 0 (1 standard drink = 0.6 oz pure alcohol) Occasionally, never a regular drinker Sex and Gender Information Value Date Recorded Sex Assigned at Not on file Legal Sex Male 3:34 PM FAN BLADE ALIGNER Gender Identity Not on file Sexual Orientation [...] on filedocumented in this encounter Care Teams Roving Hand Relationship Specialty Start Date End Date Jorge Espinosa PA [address] [place] [address] PCP - General Physician Amr Physician 04/11/23 documented as of this encounter
--- OUTSIDE RECORDS SUMMARY | 2024-02-15 13:38 | XMS_ITS | Encounter Summary ---
Author Organization [facility] Address [address] [place] [address] Phone Care Team Providers Care Special Education Teacher Name Role Phone Jorge Espinosa Primary Care Provider [phone] Antwon Mirza MD Unavailable [phone] Roland Patel MD Unavailable [phone] Reason for Visit * Episode Based Medications (Routine) - Authorized Specialty Diagnoses / Procedures Referred By Contac t Referred To Contact Diagnoses Oropharyngeal cancer (HCC) Antwon Mirza MD [address] [place] [address] Phone: tel: fax: [facility] Oncology Services [address] [place] [address] Phone: tel: fax: Referral ID Status Reason Start Date Expiration Date V isits Requested Visits Authorized [id number] Authorized 05/09/2023 1 24 Encounter Details Date Type Department Care Team (Latest Contact Info) Description 05/19/2023 1:30 PM CDT Clinical Support [facility] Oncology Services [address] [place] [address] Antwon Mirza MD [address] [place] [address] Oropharyngeal cancer (HCC) (Primary Dx) [...] on file 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 Gender Identity Not on file Sexual Orientation [...] - 12.00 10(3)/mcL 05/19/2023 2:11 PM CDT [facility] RBC 4.36(L) 4.40 - 5.80 10(6)/mcL 05/19/2023 2:11 PM CDT [facility] HEMOGLOBIN (HGB) 11.9(L) 13.0 - 16.5 g/dL 05/19/2023 2:11 PM CDT [facility] HEMATOCRIT (HCT) 37.4(L) 38.0 - 50.0 % 05/19/2023 2:11 PM CDT [facility] MCV 85.8 82.0 - 96.0 fL 05/19/2023 2:11 PM CDT [facility] MCH 27.3 26.0 - 32.0 pg 05/19/2023 2:11 PM CDT [facility] MCHC 31.8 31.0 - 36.0 g/dL 05/19/2023 2:11 PM CDT [facility] PLATELET COUNT 373 140 - 440 10(3)/mcL 05/19/2023 2:11 PM CDT [facility] RDW 14.1 11.8 - 15.5 % 05/19/2023 2:11 PM CDT [facility] MPV 9.3 8.0 - 12.6 fL 05/19/2023 2:11 PM CDT [facility] NEUTROPHILS 88.3(H) 40.0 - 68.0 % 05/19/2023 2:11 PM CDT [facility] LYMPHOCYTES 2.6(L) 19.0 - 49.0 % 05/19/2023 2:11 PM CDT [facility] MONOCYTES 8.9 3.0 - 13.0 % 05/19/2023 2:11 PM CDT [facility] EOSINOPHILS 0.1 0.0 - 8.0 % 05/19/2023 2:11 PM CDT [facility] BASOPHILS 0.1 0.0 - 1.0 % 05/19/2023 2:11 PM CDT [facility] ABSOLUTE NEUTROPHILS 11.96(H) 1.40 - 5.30 10(3)/[facility] 05/19/2023 2:11 PM CDT [facility] ABSOLUTE LYMPHOCYTES 0.35(L) 0.90 - 3.30 10(3)/[facility] 05/19/2023 2:11 PM CDT [facility] ABSOLUTE MONOCYTES 1.20(H) 0.10 - 0.90 10(3)/[facility] 05/19/2023 2:11 PM CDT [facility] ABSOLUTE EOSINOPHIL 0.01 0.00 - 0.50 10(3)/[facility] 05/19/2023 2:11 PM CDT [facility] ABSOLUTE BASOPHILS 0.02 0.00 - 0.10 10(3)/[facility] 05/19/2023 2:11 PM CDT [facility] NRBC PER 100 WBC 0 05/19/19 24 2:11 PM CDT [facility] RESULTS ARE CONSISTENT WITH PERIPHERAL SMEAR REVIEW Yes 05/19/2023 2:11 PM CDT [facility] Blood Venipuncture / Unknown 05/19/2023 1:34 PM CDT 05/19/2023 1:34 PM CDT us Antwon Mirza MD HEMATOLOGY ORDERABLES Fi nal Result [facility] [address] [place] [address] * (ABNORMAL) CMP (COMPREHENSIVE METABOLIC PANEL) (05/19/2023 1:34 PM CDT) SODIUM 132(L) 136 - 145 mmol/L 05/19/2023 2:06 PM CDT [facility] POTASSIUM 4.3 3.5 - 5.1 mmol/L 05/19/2023 2:06 PM [facility] CHLORIDE 95(L) 98 - 107 mmol/L 05/19/2023 2:06 PM [facility] CO2, VENOUS 29 22 - 30 mmol/L 05/19/2023 2:06 PM T [facility] ANION GAP 12.3 <18.0 mmol/L 05/19/2023 2:06 PM [facility] GLUCOSE 93 70 - 99 mg/dL 05/19/2023 2:06 PM [facility] BUN 17 8 - 26 mg/dL 05/19/2023 2:06 PM [facility] CREATININE, BLOOD 0.63(L) 0.70 - 1.30 mg/dL 05/19/2023 2:06 PM T [facility] BUN/CREATININE RATIO 27(H) 12 - 20 ratio 05/19/2023 2:06 PM [facility] TOTAL PROTEIN 7.3 6.3 - 8.2 g/dL 05/19/2023 2:06 PM [facility] ALBUMIN 3.3(L) 3.5 - 5.0 g/dL 05/19/2023 2:06 PM [facility] A/G RATIO 0.8(L) 1.0 - 2.2 05/19/2023 2:06 PM [facility] CALCIUM 9.2 8.7 - 10.5 mg/dL 05/19/2023 2:06 PM [facility] T BILI 0.5 0.2 - 1.2 mg/dL 05/19/2023 2:06 PM [facility] SGOT (AST) 64(H) 5 - 34 U/L 05/19/2023 2:06 PM [facility] SGPT (ALT) 50 0 - 55 U/L 05/19/2023 2:06 PM CDT [facility] ALKALINE PHOSPHATASE 73 40 - 150 U/L 05/19/2023 2:06 PM CDT [facility] IS THE PATIENT REQUIRED TO BE FASTING? No 05/19/2023 2:06 PM CDT [facility] GFR, ESTIMATED >60 >=60 05/19/2023 2:06 PM CDT [facility] Comment: Creatinine Clearance is the preferred criteria for selecting drug dose adjustments in renally impaired patients. ??The GFR is provided as additional pertinent clinical information. GFR is reported in mL/min/1.73 sq m. Calculation based on the Chronic Kidney Disease Epidemiology Collaboration (CKD- EPI) equation refit without adjustment for race. GFR, EST. >60 >=60 024 2:06 PM CDT [facility] GFR, EST. NONAFRICAN >60 >=60 05/19/2023 2:06 PM CDT [facility] Blood Venipuncture / Unknown 05/19/2023 1:34 PM CDT 05/19/2023 1:34 PM CDT Antwon Mirza MD CHEMISTRY ORDERABLES Fin al Result [facility] [address] [place] [address] documented in this encounter Visit Diagnoses Diagnosis [...] mg documented in this encounter Care Teams Special Education Teacher Relationship Specialty Start Date End Date Jorge Espinosa PA [address] [place] [address] PCP - General Physician Business Insight And Analytics Manager 04/11/23 Antwon Mirza MD [address] [place] [address] Consulting Physician Medical Oncology 05/04/23 Roland Patel MD [address] [place] [address] Consulting Physician Radiation Oncology 05/04/23 documented as of this encounter
--- OUTSIDE RECORDS SUMMARY | 2024-02-15 13:38 | XMS_ITS | Encounter Summary ---
Author Organization [facility] Address [address] [facility] 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 She declined a need for a manager social media to assist her. She is aware of our Finisher [employer], Katerin who can help as needed as well. This information was forwarded to Dr. Patel, Katerin Pride, navigator, and Alessandra Fan, radiation therapist. documented in this encounter Plan of Treatment Not on file documented as of this encounter Visit Diagnoses Not on filedocumented in this encounter Care Teams Optical Instrument Inspector Relationship Specialty Start Date End Date Jorge Espinosa PA [address] [place] [address] PCP - General Physician Job Coach 04/11/23 documented as of this encounter
--- OUTSIDE RECORDS SUMMARY | 2024-02-15 13:38 | XMS_ITS | Encounter Summary ---
Author Organization [facility] Address [address] [place] [address] Phone Care Team Providers Care General Utility Worker Name Role Phone Jorge Espinosa Primary Care Provider [phone] Antwon Mirza MD Unavailable [phone] Roland Patel MD Unavailable [phone] Reason for Referral * Radiology Services (Routine) - Closed Specialty Diagnoses / Procedures Referred By Contac t Referred To Contact Radiology Diagnoses Oropharyngeal cancer (HCC) Procedures RADIATION THERAPY PLANNING W/O CONTRAST BODY Roland Patel MD [address] [place] [address] Phone: tel: fax: Referral ID Status Reason Start Date Expiration Date Visits Re quested Visits Authorized [id number] Closed 04/19/2023 1 1 * Treatment (Routine) - Closed Specialty Diagnoses / Procedures Referred By Contac t Referred To Contact Oncology Diagnoses Oropharyngeal cancer (HCC) Procedures RAD ONC INTENT TO TREAT Roland Patel MD [address] [place] [address] Phone: tel: fax: Referral ID Status Reason Start Date Expiration Date Visits Re quested Visits Authorized [id number] Closed 04/19/2023 1 1 Reason for Visit * Medical Care (Routine) - Closed Specialty Diagnoses / Procedures Referred By Contac t Referred To Contact Oncology Diagnoses Oropharyngeal cancer (HCC) Procedures OFFICE/OP NEW LVL 3 LOW MDM/30-44 MIN OFFICE/OP EST LVL 3 LOW MDM/20-29 MIN Antwon Mirza MD [address] [place] [address] Phone: tel: fax: [facility] Oncology Services [address] [place] [id number] Phone: tel: fax: Referral ID Status Reason Start Date Expiration Date Visits Re quested Visits Authorized [id number] Closed 04/12/2023 1 11 Encounter Details Date Type Department Care Team (Latest Contact Info) Description 04/19/2023 1:30 PM CDT Initial Consult [facility] Oncology Services [address] [place] [phone] [place] [address] [place] [address] Oropharyngeal cancer (HCC) (Primary Dx); Oropharyngeal [...] on file 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 He is being referred today to discuss [...] The symptoms led him to present to [facility] ED 03/21/2023 for evaluation at which time a large left oropharyngeal mass was noted on CT of the neck. That report and images were not available at the time of today's consultation. He was discharged from the ED with plans to follow-up with [facility] ENT as an outpatient but had an episode of hemoptysis at home which he estimated as a 1point blood loss so he presented back to [facility] ED and was subsequently transferred by ambulance to [facility] where he was admitted 03/23/2023 thru 03/31/2023 and underwent testing and procedures leading to a diagnosis of clinical stage III (cT4, cN2, cM0, p16+) left oropharyngeal squamous cell carcinoma. He was subsequently referred to the [facility] for treatment as he was out of network for insurance purposes within the [facility] system, i.e. [facility]. He was seen in Medical Oncologyconsultation by [...] he had speech language pathologyevaluation at [facility] and prior to placement of his PEG [...] ???walk test while an inpatient at [facility] and his SpO2 dropped to hypoxemic levels [...] mellitus (HCC), Myocardial infarction (HCC), or Stroke ([facility]). CURRENT MEDICATIONS: He has a current medication list which includes the following prescription(s):escitalopram, ferrous sulfate, lidocaine, lisinopril, nortriptyline, ondansetron, and oxycodone. Past Surgical History: Procedure Laterality Date APPENDECTOMY 2019 Appendix did not rupture. Surgery was while he was living in [place]. GASTROSTOMY TUBE PLACEMENT N/A 03/28/2023 Initial placement of percutaneous balloon assisted gastrostomy catheter with procedure at [facility]. GASTROSTOMY TUBE PLACEMENT N/A 03/29/2023 Percutaneous fluoroscopic pull type gastrostomy catheter placement after gastrostomy tube placed 03/28/2023 fell out overnight. Procedure at [facility]. LARYNGOSCOPY,DIRCT,OP,BIOPSY N/A 03/25/2023 Direct laryngoscopy and biopsy 03/25/2023 in the OR at [facility] confirming p16+ squamous cell carcinoma of [...] stress test simple/oxygen assessment 03/30/2023 at [facility] and breathing room air his SpO2 was [...] and lives in a private residence in [place], [place] with his daughter and 6-year-old granddaughter. Up until a few years ago he lived in [place] before moving to the area and moving [...] STUDIES: 1.) PET/CT study 03/30/2023 at [facility] History: 63-year-old male with new left oropharyngeal mass, biopsy-proven squamous cell carcinoma on 03/25/2023. The studies requested for initial staging. Comparison: CTA head and neck 03/23/2023 Pertinent Findings: There is a hypermetabolic, ulcerative, infiltrative neck mass centered in the left oropharynx with extension superiorly into the left nasopharynx, into the left project development manager, submandibular, and sublingual spaces, left tonsillar fossa, [...] with involvement of the left nasopharynx, left project development manager, submandibular, and sublingual spaces, left tonsillar fossa, [...] Modified barium swallow video 03/24/2023 at [facility] was abnormal with recommendation for full liquid diet without pyuria ease, liquid/crust meds. Ultimately PEG was placed and remained at the time oftoday's consultation. 3.) CTA head and neck with and without contrast 03/23/2023 at [facility] History: Bleeding left oropharyngeal neck mass. Comparison: None available. Impression: Large ulcerative left oropharyngeal neck mass highly suspicious for malignancy such as squamous cell carcinoma involving the left parapharyngeal, project development manager, submandibular, and sublingualspaces with osseous involvement of the left mandible. Multiple branches of the left external carotid artery including the ascending pharyngeal and lingual branches course throughthis mass without evidence of active arterial extravasation. PROCEDURES & PATHOLOGY: Direct laryngoscopy and biopsy 03/25/2023 at [facility] Indications: Patient is a 63 y/o male with several-month history of significant weight loss, trismus, dysphagia, and odynophagia. In recent weeks he has also developed intermittent hemoptysis prompting ED presentation and evaluation at which time CT imaging of the neck demonstrated a large left oropharyngeal mass. He is now transferred to [facility] and the otolaryngology service was consulted for [...] for both frozen section as well as vallejo permanent pathology. Results from frozen pathologic evaluation demonstrated carcinoma Final Diagnosis: A. Oropharynx, left, biopsy (AFR1): [id number] squamous cell carcinoma with nonkeratinizing and basaloid [...] [facility] said [...] Uber to today's appointment. He lives in [place], [place] 20+ miles away. [facility] social service coordinator will be contacted to help facilitate. I appreciate Dr. Mirza giving me the opportunity to take part in the care of this patient. He remained under the primary care of SHAHID HATHAWAY. Total time spent on this encounter on this date of service, including pre-visit review of separately obtained history, wayb-ez-jzps interaction performing medically appropriate physical exam, patient [...] disorder documented in this encounter Care Teams General Utility Worker Relationship Specialty Start Date End Date Jorge Espinosa PA [address] [place] [address] PCP - General Physician Docket Clerk 04/11/23 Antwon Mirza MD [address] [place] [address] Consulting Physician Medical Oncology 05/04/23 Roland Patel MD [address] [place] [address] Consulting Physician Radiation Oncology 05/04/23 documented as of this encounter
--- OUTSIDE RECORDS SUMMARY | 2024-02-15 13:38 | XMS_ITS | Encounter Summary ---
Author Organization [facility] Address [address] [place] [address] Phone Care Team Providers Care Certified Surgical Tech/First Assistant Name Role Phone Jorge Espinosa Primary Care Provider Antwon Mirza MD Unavailable [phone] Roland Patel MD Unavailable [phone] Encounter Details Date Type Department Care Team (Late st Contact Info) Description 05/11/2023 Documentation Only [facility] Oncology Services [address] [place] [address] Hiren Lester MD [address] [place] [address] Social History Tobacco Use Types Packs/Day Years Used Date Smoking Tobacco: Every Day Cigarettes 0.5 50.9 Started: 1974 Smokeless Tobacco: Never Alcohol Use Standard Drinks/Week Comments Yes 0 (1 standard drink = 0.6 oz pure alcohol) Occasionally, never a regular drinker Sex and Gender Information Value Date Recorded Sex Assigned at Not on file 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 For medical justification of the above charges, please see earlier progress notes in the Epic system. Hiren Lester MD, , FACR, FACRO Radiation Oncology documented in this encounter Plan of Treatment Not on file documented as of this encounter Visit Diagnoses Not on filedocumented in this encounter Care Teams Certified Surgical Tech/First Assistant Relationship Specialty Start Date End Date Jorge Espinosa PA [address] [place] [address] PCP - General Physician Heavy Equipment Engine Mechanic 04/11/23 Antwon Mirza MD [address] [place] [address] Consulting Physician Medical Oncology 05/04/23 Roland Patel MD [address] [place] [address] Consulting Physician Radiation Oncology 05/04/23 documented as of this encounter
--- OUTSIDE RECORDS SUMMARY | 2024-02-15 13:38 | XMS_ITS | Encounter Summary ---
Author Organization [facility] Address [address] [facility] [place] [address] Phone Care Team Providers Care Payloader Operator Name Role Phone Jorge Espinosa Primary Care Provider [phone] Antwon Mirza MD Unavailable [phone] Roland Patel MD Unavailable Encounter Details Date Type Department Care Team (Latest Contact Info) Description 05/19/2023 1:00 PM CDT Clinical Support 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
--- OUTSIDE RECORDS SUMMARY | 2024-02-15 13:38 | XMS_ITS | Encounter Summary ---
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
--- OUTSIDE RECORDS SUMMARY | 2024-02-15 13:38 | XMS_ITS | Encounter Summary ---
Author Organization [facility] Address [address] 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 Gonsales, Katerin Lewis navigator, Yenifer Lamb RNminibus driver and radiation therapists were all informed of the above. The copy of appointments was reviewed with Meka JONES and she will give this to Aleksey tomorrow. I did not proceed with contacting [facility] at this time. documented in this encounter Plan of Treatment Not on file documented as of this encounter Visit Diagnoses Not on filedocumented in this encounter Care Teams Job Foreman Relationship Specialty Start Date End Date Jorge Espinosa PA [address] [place] [address] PCP - General Physician Truck Bench Mechanic 04/11/23 documented as of this encounter
--- OUTSIDE RECORDS SUMMARY | 2024-02-15 13:38 | XMS_ITS | Encounter Summary ---
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
--- OUTSIDE RECORDS SUMMARY | 2024-02-15 13:38 | XMS_ITS | Encounter Summary ---
Author Organization [facility] Address [address] [facility] 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 Gender Identity Not on file Sexual Orientation [...] MODEL Reference Point Dosage Given to Date [id number] Gy ARIA RO MODEL Reference Point Session Dosage Given [id number] Gy ARIA RO MODEL Plan ID [id number] [...] ORDERABLES F inal Result Performing Organization Address City/State/[facility] Co de Phone Number ARIA RO MODEL [address] [place] [address] documented in this encounter Visit Diagnoses Not on filedocumented in this encounter Care Teams Set Up Mechanic Coating Machines Relationship Specialty Start Date End Date Jorge Espinosa PA [address] [place] [address] PCP - General Physician Hop Weigher 04/11/23 Antwon Mirza MD [address] [place] [address] Consulting Physician Medical Oncology 05/04/23 Roland Patel MD [address] [place] [address] Consulting Physician Radiation Oncology 05/04/23 documented as of this encounter
--- OUTSIDE RECORDS SUMMARY | 2024-02-15 13:39 | XMS_ITS | Clinical Summary ---
Author Organization [facility] Address [address] [place] [address] Care Team Providers Care Mechanic Welder Name Role Phone Jorge Espinosa Primary Care Provider + Edwin Lock MD Unavailable [phone] Allergies No known active allergies Medications lidocaine (LIDODERM) 5 %Indications:low back pain Place 1 patch on the skin daily Remove & discard patch within 12 hours or as directed by MD. Active escitalopram (LEXAPRO) oral solution 5 mg/5 mL Take 20 mL (20 mg total) by mouth daily 720 mL 4 Active lisinopriL (PRINIVIL,ZESTRIL) 10 mg tabletIndications: hypertension Administer per tube 1 tablet (10 mg total) daily 4 025 Active nortriptyline (PAMELOR) solution 10 mg/5 mL Administer per tube 15 mL (30 mg total) nightly as needed (sleep) 473 mL 4 025 Active oosjxqqp-llx-objmd us gluconate (CENTRUM) 0.6 mg iron/mL liquid Administer 15 mL per feeding tube daily 472 mL 4 Active nicotine (NICODERM CQ) [address] 1 patch on the skin daily 30 patch 4 Active ondansetron ODT (ZOFRAN-ODT) 4 mg disintegrating tabletIndications: Nausea and Vomiting Take 1 tablet (4 mg total) by mouth every 6 (six) hours as needed for nausea or vomiting 20 tablet 4 Active oxyCODONE (ROXICODONE) solution 5 mg/5 mLIndications:Pain Administer per tube 5 mL (5 mg total) every 4 (four) hours as needed for pain 473 mL 4 Active polyethylene glycol (MIRALAX) 17 gram/dose bulk powderIndications: constipation Administer per tube 17 g daily 510 g 4 Active oxyCODONE (ROXICODONE) solution 5 mg/5 mLIndications:Pain Administer per tube 5 mL (5 mg total) every 4 (four) hours as needed for pain 473 mL 4 Active Active Problems Problem Noted Date Diagnosed Date Primary squamous cell carcinoma of head and neck 03/30/2023 Cancer Staging:Clinical stage from 03/25/2023:Stage III(cT4, cN2, cM0, p16+) - Unsigned Cancer cachexia (CMS/HCC) 03/30/2023 Moderate malnutrition 03/25/2023 Oral mass 03/23/2023 Surgical History Surgery Date Site/Laterality Comments TONSILLECTOMY APPENDECTOMY IR G TUBE PLACEMENT PERCUTANEOUS 03/28/2023 N/A IR G TUBE PLACEMENT PERCUTANEOUS 03/29/2023 N/A Family History Medical History Relation Name Comments Anesthesia problems Neg Hx Social History Tobacco Use Types Packs/Day Years Used Date Smoking Tobacco: Every Day Cigarettes 1.5 45 Started: 02/1979 Passive Smoke Exposure: Never Smokeless Tobacco: Never Tobacco Cessation:Ready to Q uit: No; Counseling Given: Yes AUDIT-C Answer Date Recorded Q1: How often do you have a drink containing alc ohol? Monthly or less 03/25/2023 Q2: How many drinks containi ng alcohol do you have on a typical day when you are drinking? 1 or 2 03/25/2023 Q3: How often do you have si x or more drinks on one occasion? Never 03/25/2023 Personal Safety Answer Date Recorded Have you ever been in or are you currently in a harmful physical or emotional relationship or is someone making you feel afraid or unsafe? Denies 03/23/2023 Sex and Gender Information Value Date Recorded Sex Assigned at Not on file Legal Sex Male 11:50 AM PRODUCTION MAINTENANCE TECHNICIAN Gender Identity Not on file Sexual Orientation Not on file Obstetrics History Last Filed Vital Signs Vital Sign Reading Time Taken Comments Blood Pressure 150/67 03/31/2023 8:16 AM PRODUCTION MAINTENANCE TECHNICIAN Pulse 73 03/31/2023 8:16 AM PRODUCTION MAINTENANCE TECHNICIAN Temperature 37 ??C (98.6 ??F) 03/31/2023 8:16 AM PRODUCTION MAINTENANCE TECHNICIAN Respiratory Rate 16 03/31/2023 8:16 AM PRODUCTION MAINTENANCE TECHNICIAN Oxygen Saturation 94% 03/31/2023 8:16 AM PRODUCTION MAINTENANCE TECHNICIAN Inhaled Oxygen Concentration - - Weight 51.2 kg (112 lb 14.4 oz) 03/30/2023 6:00 AM PRODUCTION MAINTENANCE TECHNICIAN Height 165.1 cm (5' 5 ) 03/23/2023 2:39 PM PRODUCTION MAINTENANCE TECHNICIAN Body Mass Index 18.79 03/23/2023 2:39 PM PRODUCTION MAINTENANCE TECHNICIAN Plan of Treatment Health Maintenance Due Date Last Done Comments Colon Cancer Screening-Colonoscopy 1959 Depression Screening 1959 Hepatitis C Screening 1959 Prostate Cancer Screening-PSA 1959 Pneumococcal vaccine <65 (1 of 2 - PCV) 1965 DTaP/Tdap/Td Vaccine (1 - Tdap) 1970 Hepatitis B Screening 1977 Regular Well Visit/Exam 18-64 1977 Lung Cancer Screening 2009 Zoster Vaccine (1 of 2) 2009 Influenza Vaccine (#1) 2023 01/04/2023 Medical Devices Implanted Type Area Eyeglass Lens Grinder Device Identifier Shelf Expiration Date Model / Serial / Lot Knee Right: Knee Insurance SHAHID NOBLE [id number] [facility] SHAHID NOBLE [id number] Advance Directives For more information, please contact: [phone] Documents on File Type Date Recorded Patient Ophthalmic Surgical Assistant Expl anation ADVANCE DIRECTIVE 04/04/2023 9:17 PM POWER OF SUPERVISOR LAMP SHADES-MEDICAL ADVANCE DIRECTIVE 03/29/2023 3:17 PM POWER OF SUPERVISOR LAMP SHADES-MEDICAL * Full Code (Latest Code Status on File) Date Activated Date Inactivated Comments 03/23/2023 9:48 PM 03/31/2023 9:46 PM Care Teams Mechanic Welder Relationship Specialty Start Date End Date Jorge Espinosa PA [address] [place] [address] PCP - General Internal Medicine 03/31/23 Edwin Lock MD [address] [place] [address] Radiation Oncologist Radiation Oncology 03/31/23
--- OUTSIDE RECORDS SUMMARY | 2024-02-15 13:39 | XMS_ITS ---
Author Organization [facility] Address [address] [place] [address] Care Team Providers Care Security Patrol Officer Name Role Phone Jorge Espinosa Primary Care Provider + Edwin Lock MD Unavailable [phone] Active Problems Problem Noted Date Diagnosed Date Primary squamous cell carcinoma of head and neck 03/30/2023 Cancer Staging:Clinical stage from 03/25/2023:Stage III(cT4, cN2, cM0, p16+) - Unsigned Cancer cachexia (CMS/HCC) 03/30/2023 Moderate malnutrition 03/25/2023 Oral mass 03/23/2023 Current Oncology Plans No current plan information found. Past Plans No past plan information found. Radiation Treatments * No radiation treatments are documented for this patient in [facility]. Treatments may have been administered in another system. Lifetime Dose Tracking * Chemical Lifetime Dose Automatic Entry Manual Entr y Fluoro Time 16.1 minutes 16.1 minutes 0 minutes Air kerma at the reference point (Ka,r) 63.9 mGy 6 3.9 mGy 0 mGy DLP 1,724 mGycm 1,724 mGycm 0 mGycm
--- OUTSIDE RECORDS SUMMARY | 2024-02-15 13:39 | XMS_ITS | Encounter Summary ---
Author Organization [facility] Healthcare Address [address] [place] [address] Care Team Providers Care Naval Aircrewman Helicopter Name Role Phone Jorge Espinosa Primary Care Provider + Edwin Lock MD Unavailable [phone] Ayleen Fan CARDIOPULMONARY SPECIALIST Unavailable [phone] Reason for Visit * Reason Comments Unsuccessful Phone Call 1 Encounter Details Date Type Department Care Team (Late st Contact Info) Description 04/01/2023 SHOP/CHAP Initial Outreach [facility] OP CASE MANAGEMENT 1 [place] [id number] Ayleen Fan, CARDIOPULMONARY SPECIALIST [address] [facility] ([facility]) Mailstop [phone] [place] [address] Social History Tobacco Use Types Packs/Day Years Used Date Smoking Tobacco: Every Day Cigarettes 1.5 45 Started: 02/1979 Passive Smoke Exposure: Never Smokeless Tobacco: Never AUDIT-C Answer Date Recorded Q1: How often [...] on file Legal Sex Male 11:50 AM DIRECTOR COMMUNITY ORGANIZATION Gender Identity Not on file Sexual Orientation Not on file documented as of this encounter Plan of Treatment Not on file documented as of this encounter Visit Diagnoses Not on filedocumented in this encounter Care Teams Naval Aircrewman Helicopter Relationship Specialty Start Date End Date Jorge Espinosa PA [address] [place] [address] PCP - General Internal Medicine 03/31/23 Edwin Lock MD [address] [place] [address] Radiation Oncologist Radiation Oncology 03/31/23 Ayleen Fan LCSW [address] [facility] ([facility]) Mailstop [phone] [place] [address] SHOP Outpatient Microwave Oven Assembler 04/01/23 04/11/23 documented as of this encounter
--- OUTSIDE RECORDS SUMMARY | 2024-02-15 13:39 | XMS_ITS | Encounter Summary ---
Author Organization [facility] Healthcare Address [address] [place] [address] Care Team Providers Care Metallurgical Engineering Teacher Name Role Phone Jorge Espinosa Primary Care Provider + Edwin Lock MD Unavailable [phone] Ayleen Fan [facility] Unavailable [phone] Encounter Details Date Type Department Care Team (Latest Contact Info) Description 04/01/2023 10:00 PM TELESALES AGENT - 04/01/2023 11:59 PM TELESALES AGENT Hospital Encounter [facility] Radiation Oncology [address] [facility] [place] [address] Discharge Disposition: Discharge to home or self care Social History Tobacco Use Types Packs/Day Years [...] on file Legal Sex Male 11:50 AM TELESALES AGENT Gender Identity Not on file Sexual Orientation Not on file documented as of this encounter Medications at Time of Discharge escitalopram (LEXAPRO) oral solution 5 mg/5 mL Take 20 mL (20 mg total) by mouth daily 720 mL 03/30/2023 lidocaine (LIDODERM) 5 %Indications:low back pain Place 1 patch on the skin daily Remove & discard patch within 12 hours or as directed by . lisinopriL (PRINIVIL,ZESTRIL) 10 mg tabletIndications:h ypertension Administer per tube 1 tablet (10 mg total) daily 03/31/2023 vuepxazw-zdt-ziyxon s gluconate (CENTRUM) 0.6 mg iron/mL liquid Administer 15 mL per feeding tube daily 472 mL 03/30/2023 nicotine (NICODERM CQ) [address] 1 patch on the skin daily 30 patch 03/31/2023 nortriptyline (PAMELOR) solution 10 mg/5 mL Administer per tube 15 mL (30 mg total) nightly as needed (sleep) 473 mL 03/30/2023 5 ondansetron ODT (ZOFRAN-ODT) 4 mg disintegrating tabletIndications:N ausea and Vomiting Take 1 tablet (4 mg total) by mouth every 6 (six) hours as needed for nausea or vomiting 20 tablet 03/30/2023 oxyCODONE (ROXICODONE) solution 5 mg/5 mLIndications:Pain Administer per tube 5 mL (5 mg total) every 4 (four) hours as needed for pain 473 mL 03/30/2023 oxyCODONE (ROXICODONE) solution 5 mg/5 mLIndications:Pain Administer per tube 5 mL (5 mg total) every 4 (four) hours as needed for pain 473 mL 04/06/2023 polyethylene glycol (MIRALAX) 17 gram/dose bulk powderIndications:c onstipation Administer per tube 17 g daily 510 g 03/30/2023 levoFLOXacin (LEVAQUIN) 750 mg tabletIndications:P neumonia, Aspiration,Skin/Sof t Tissue Infection Take 1 tablet (750 mg total) by mouth daily for 4 doses Take 2 hrs before or 2 hrs after multivitamin, antacids, or other products containing sucralfate, magnesium, aluminum, iron, or zinc. May be taken without regard to meals. 4 tablet 04/01/2023 documented as of this encounter Discharge Disposition Disposition Code Departure Means Destination Discharge to home or self care documented in this encounter Plan of Treatment Not on file documented as of this encounter Visit Diagnoses Not on filedocumented in this encounter Care Teams Metallurgical Engineering Teacher Relationship Specialty Start Date End Date Jorge Espinosa PA [address] [place] [address] PCP - General Internal Medicine 03/31/23 Edwin Lock MD [address] [place] [address] Radiation Oncologist Radiation Oncology 03/31/23 Ayleen Fan LCSW [address] [facility] ([facility]) Mailstop [phone] [place] [address] SHOP Outpatient Benzene Washer Operator 04/01/23 04/11/23 documented as of this encounter
--- OUTSIDE RECORDS SUMMARY | 2024-02-15 13:39 | XMS_ITS | Encounter Summary ---
Author Organization [facility] Address [address] [place] [address] Phone Care Team Providers Care Branner Machine Tender Name Role Phone Jorge Espinosa Primary Care Provider + Edwin Lock MD Unavailable [phone] Ayleen Fan [facility] Unavailable [phone] Encounter Details Date Type Department Care Team (Late st Contact Info) Description 04/01/2023 Telephone [facility] Oncology [address] [facility] 7th [place] [address] [place] [id number] Ene Muhammad Social History Tobacco Use Types Packs/Day Years [...] on file Legal Sex Male 11:50 AM BINDING END STITCHER Gender Identity Not on file Sexual Orientation Not on file documented as of this encounter Miscellaneous Notes * Telephone Encounter - Ene Muhammad - 04/01/2023 12:17 PM CST Per [facility] Medical Oncology scheduling team we are not contracted with pt's insurance through [facility]. Contacted Dr. Palacio's office in [place], [place] to inquire if they are contracted. Per representative Mullen they are not, but Dr. Antwon Mirza is through [facility] in [place], [place]. Contacted Dr. 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 Contacted pt at ph [phone] and daughter Shirley at ph [phone] - left VM's at both ph #'s with above information and requested call back to my ph [phone] to confirm ok with referral to Dr. Mirza. Spoke with pt's daughter Shirley who confirms she would like medical oncology referral sent to Dr. Antwon Mirza through [facility], [place], [place]. Explained Dr. Mirza's office will contact pt to schedule appt, but pt can call back to our office if needing further assist. Shirley verbalizing understanding and agreement with plan. Referral information faxed to Dr. Mirza's office at fax # [phone]. Per Katerin/Nurse Navigator/Dr. Mirza's office - pt has appt scheduled with her on 04/11/23 at 2:40 pm. ING END STITCHER ING END STITCHER ING END STITCHER documented in this encounter Plan of Treatment Not on file documented as of this encounter Visit Diagnoses Not on filedocumented in this encounter Care Teams Branner Machine Tender Relationship Specialty Start Date End Date Jorge Espinosa PA [address] [place] [address] PCP - General Internal Medicine 03/31/23 Edwin Lock MD [address] [place] [address], [place] [address] Radiation Oncologist Radiation Oncology 03/31/23 Ayleen Fan LCSW [address] [facility] ([facility]) Mailstop [phone] [place] [address] SHOP Outpatient Candle Molder Hand 04/01/23 04/11/23 documented as of this encounter
--- OUTSIDE RECORDS SUMMARY | 2024-02-15 13:39 | XMS_ITS | Encounter Summary ---
Author Organization [facility] Healthcare Address [address] [place] [address] Care Team Providers Care Balancer Scale Name Role Phone Jorge Espinosa Primary Care Provider + Edwin Lock MD Unavailable Ayleen Fan [facility] Unavailable Encounter Details Date Type Department Care Team (Late st Contact Info) Description 04/01/2023 Telephone [facility] [address] [place] [address] Johan Gonzalez RPh Social History Tobacco Use Types Packs/Day Years [...] on file Legal Sex Male 11:50 AM FISHER CLAM Gender Identity Not on file Sexual Orientation Not on file documented as of this encounter Miscellaneous Notes * Telephone Encounter - Johan Gonzalez RPh - 04/01/2023 3:14 PM FISHER CLAM Images from the original note were not included. Transitions of Care Pharmacist Post-Discharge Follow-Up Phone Call Pharmacist spoke with Aleksey Godfrey via telephone to review all medications and discuss any questions/concerns since last hospital discharge. Date of discharge: 03/31/2023 Date of follow up appointment: 05/02/23 Summary of significant medication changes on discharge: Changed meds to liquids and crush per tube. Continued levofloxacin PO at 3am due to tube feeding. Daughter states tube feeding supplies delivered along with oxygen, all without incident. Patient has supply of all necessary medications Patient reported taking all medications appropriately Instructions provided to patient during phone call: Medications reviewed in terms of indication, administration, monitoring, potential side effects, drug interactions, and drug-food/drug-herbal interactions (particular focus was on new/changed/discontinued medications) Reviewed upcoming appointments The visit was approximately 10 minutes in duration, all of which was via telepharmacy counseling. The patient/caregiver verbalized understanding of the plan and related education. Johan Gonzalez, PharmD, [facility] Clinical Senior Coldfusion Developer - Transitions of Care/Internal Medicine Medication List Accurate as of April 01, 2023 3:15 PM. If you have any questions, ask your nurse or doctor. CONTINUE taking these medications Dose Instructions escitalopram 1 mg/mL solution Commonly known as: LEXAPRO 20 mg Take 20 mL (20 mg total) by mouth daily Morning Afternoon Evening Bedtime As Needed levoFLOXacin 750 mg tablet Commonly known as: LEVAQUIN 750 mg Take 1 tablet (750 mg total) by mouth daily for 4 doses Take 2 hrs before or 2 hrs after multivitamin, antacids, or other products containing sucralfate, magnesium, aluminum, iron, or zinc. May be taken without regard to meals. Morning Afternoon Evening Bedtime As Needed lidocaine 5 % Commonly known as: LIDODERM [address] 1 patch on the skin daily Remove & discard patch within 12 hours or as directed by MD. Morning Afternoon Evening Bedtime As Needed lisinopriL 10 mg tablet Commonly known as: PRINIVIL,ZESTRIL 10 mg Administer per tube 1 tablet (10 mg total) daily Morning Afternoon Evening Bedtime As Needed gfgdzwby-lyl-arshbcw gluconate 0.6 mg iron/mL liquid Commonly known as: CENTRUM 15 mL Administer 15 mL per feeding tube daily Morning Afternoon Evening Bedtime As Needed nicotine 14 mg Commonly known as: NICODERM CQ [address] 1 patch on the skin daily Morning Afternoon Evening Bedtime As Needed nortriptyline 2 mg/mL solution Commonly known as: PAMELOR 30 mg Administer per tube 15 mL (30 mg total) nightly as needed (sleep) Morning Afternoon Evening Bedtime As Needed ondansetron ODT 4 mg disintegrating tablet Commonly known as: ZOFRAN-ODT 4 mg Take 1 tablet (4 mg total) by mouth every 6 (six) hours as needed for nausea or vomiting Morning Afternoon Evening Bedtime As Needed * oxyCODONE 1 mg/mL solution Commonly known as: ROXICODONE 5 mg Administer per tube 5 mL (5 mg total) every 4 (four) hours as needed for pain Morning Afternoon Evening Bedtime As Needed * oxyCODONE 1 mg/mL solution Commonly known as: ROXICODONE Start taking on: April 06, 2023 5 mg Administer per tube 5 mL (5 mg total) every 4 (four) hours as needed for pain Morning Afternoon Evening Bedtime As Needed polyethylene glycol 17 gram/dose bulk powder Commonly known as: MIRALAX 17 g Administer per tube 17 g daily Morning Afternoon Evening Bedtime As Needed * This list has 2 medication(s) that are the same as other medications prescribed for you. Read thedirections carefully, and ask your doctor or other care provider to review them with you. ER CLAM documented in this encounter Plan of Treatment Not on file documented as of this encounter Visit Diagnoses Not on filedocumented in this encounter Care Teams Balancer Scale Relationship Specialty Start Date End Date Jorge Espinosa PA [address] [place] [address] PCP - General Internal Medicine 03/31/23 Edwin Lock MD [address] [place] [address] Radiation Oncologist Radiation Oncology 03/31/23 Ayleen Fan LCSW [address] [facility] ([facility]) Mailstop [phone] [place] [address] SHOP Outpatient Stacker Attendant 04/01/23 04/11/23 documented as of this encounter
--- OUTSIDE RECORDS SUMMARY | 2024-02-15 13:39 | XMS_ITS | Referral Summary ---
Author Organization [facility] Address [address] [place] [address] Care Team Providers Care Textile Coating Machine Operator Name Role Phone Jorge Espinosa Primary Care Provider + Edwin Lock MD Unavailable Allergies No known active allergies Medications lidocaine [...] needed (sleep) 473 mL 4 025 Active rmoktjtp-jjz-zmhtw us gluconate (CENTRUM) 0.6 mg iron/mL liquid [...] 03/30/2023 Moderate malnutrition 03/25/2023 Oral mass 03/23/2023 Social History Tobacco Use Types Packs/Day Years [...] on file Legal Sex Male 11:50 AM PERIANESTHESIA RN Gender Identity Not on file Sexual Orientation Not on file Last Filed Vital Signs Vital Sign Reading Time Taken Comments Blood Pressure 150/67 03/31/2023 8:16 AM PERIANESTHESIA RN Pulse 73 03/31/2023 8:16 AM PERIANESTHESIA RN Temperature 37 ??C (98.6 ??F) 03/31/2023 8:16 AM PERIANESTHESIA RN Respiratory Rate 16 03/31/2023 8:16 AM PERIANESTHESIA RN Oxygen Saturation 94% 03/31/2023 8:16 AM PERIANESTHESIA RN Inhaled Oxygen Concentration - - Weight 51.2 kg (112 lb 14.4 oz) 03/30/2023 6:00 AM PERIANESTHESIA RN Height 165.1 cm (5' 5 ) 03/23/2023 2:39 PM PERIANESTHESIA RN Body Mass Index 18.79 03/23/2023 2:39 PM PERIANESTHESIA RN Plan of Treatment Not on file Medical Devices Implanted Type Area Post Production Assistant Device Identifier Shelf Expiration Date Model / Serial / Lot Knee Right: Knee Insurance Advance Directives For more information, please contact: [phone] Documents on File Type Date Recorded Patient Rail Filler Expl anation ADVANCE DIRECTIVE 04/04/2023 9:17 PM POWER OF FINANCIAL INSTITUTION BRANCH MANAGER-MEDICAL ADVANCE DIRECTIVE 03/29/2023 3:17 PM POWER OF FINANCIAL INSTITUTION BRANCH MANAGER-MEDICAL * Full Code (Latest Code Status on File) Date Activated Date Inactivated Comments 03/23/2023 9:48 PM 03/31/2023 9:46 PM Care Teams Textile Coating Machine Operator Relationship Specialty Start Date End Date Jorge Espinosa PA [address] [place] [address] PCP - General Internal Medicine 03/31/23 Edwin Lock MD [address] [place] [address] Radiation Oncologist Radiation Oncology 03/31/23
--- OUTSIDE RECORDS SUMMARY | 2024-02-15 13:39 | XMS_ITS | Encounter Summary ---
Author Organization [facility] Healthcare Address [address] [place] [address] Care Team Providers Care Technical Customer Support Specialist Name Role Phone Jorge Espinosa Primary Care Provider + Edwin Lock MD Unavailable Ayleen FanW Unavailable [phone] Encounter Details Date Type Department Care Team (Late st Contact Info) Description 04/04/2023 Telephone [facility] Radiation Oncology [address] [place] [address] Ozzie Marquez, RN Social History Tobacco Use Types Packs/Day Years [...] on file Legal Sex Male 11:50 AM TRUCK CHAUFFEUR Gender Identity Not on file Sexual Orientation Not on file documented as of this encounter Miscellaneous Notes * Telephone Encounter - Ozzie Marquez RN - 04/04/2023 10:51 AM TRUCK CHAUFFEUR Left message with patient to get his scheduled for a follow up and CT simulation. K CHAUFFEUR documented in this encounter Plan of Treatment Not on file documented as of this encounter Visit Diagnoses Not on filedocumented in this encounter Care Teams Technical Customer Support Specialist Relationship Specialty Start Date End Date Jorge Espinosa PA [address] [place] [address] PCP - General Internal Medicine 03/31/23 Edwin Lock MD [address] [place] [address] Radiation Oncologist Radiation Oncology 03/31/23 Ayleen Fan LCSW 4590 [facility] ([facility]) Mailstop [phone] [place] [address] [facility] Outpatient Kindergarten Assistant 04/01/23 04/11/23 documented as of this encounter
--- OUTSIDE RECORDS SUMMARY | 2024-02-15 13:39 | XMS_ITS | Encounter Summary ---
Author Organization [facility] Healthcare Address [address] [place] [address] Care Team Providers Care Bioprocessing Manufacturing Technician Name Role Phone Jorge Espinosa Primary Care Provider + Edwin Lock MD Unavailable [phone] Ayleen Fan IT TECHNICAL SUPPORT SPECIALIST Unavailable [phone] Reason for Visit * Reason Comments Unsuccessful Phone Call 2 Unsuccessful Phone Call 3 Encounter Details Date Type Department Care Team (Late st Contact Info) Description 04/05/2023 SHOP/CHAP Initial Outreach [facility] OP CASE MANAGEMENT [address] [place] [address] Ayleen Fan, IT TECHNICAL SUPPORT SPECIALIST [address] [facility] ([facility] Mailstop [phone] [place] [address] Social History Tobacco Use Types [...] on file Legal Sex Male 11:50 AM PAINT LINE SUPERVISOR Gender Identity Not on file Sexual Orientation Not on file documented as of this encounter Plan of Treatment Not on file documented as of this encounter Visit Diagnoses Not on filedocumented in this encounter Care Teams Bioprocessing Manufacturing Technician Relationship Specialty Start Date End Date Jorge Espinosa PA [facility] [place] [address] PCP - General Internal Medicine 03/31/23 Edwin Lock MD [address] [place] [address] Radiation Oncologist Radiation Oncology 03/31/23 Ayleen Fan LCSW 4590 [facility] ([facility] Mailstop [phone] [place] [address] SHOP Outpatient Floor Trader 04/01/23 04/11/23 documented as of this encounter
--- OUTSIDE RECORDS SUMMARY | 2024-02-15 13:39 | XMS_ITS | Encounter Summary ---
Author Organization [facility] Healthcare Address [address] [place] [address] Care Team Providers Care Principal Software Architect Name Role Phone Jorge Espinosa Primary Care Provider + Edwin Lock MD Unavailable Encounter Details Date Type Department Care Team (Late st Contact Info) Description 04/12/2023 Telephone [facility] Radiation Oncology [address] [place] [address] Ozzie Marquez, ANGELITA Social History Tobacco Use Types Packs/Day Years [...] file Legal Sex Male 11:50 AM DIRECTOR OF RADIO SERVICES Gender Identity Not on file Sexual Orientation Not on file documented as of this encounter Miscellaneous Notes * Telephone Encounter - Ozzie Marquez RN - 04/12/2023 11:40 AM DIRECTOR OF RADIO SERVICES I spoke with staff at Dr. Mirza's office to verify referral was placed for radiation oncology for Mr. Godfrey since he is out of network her at [facility]. They stated a referral was place to their radiation oncologist Dr. Patel by Dr. Mirza. CTOR OF RADIO SERVICES documented in this encounter Plan of Treatment Not on file documented as of this encounter Visit Diagnoses Not on filedocumented in this encounter Care Teams Principal Software Architect Relationship Specialty Start Date End Date Jorge Espinosa PA [address] [place] [address] PCP - General Internal Medicine 03/31/23 Edwin Lock MD [address] [place] [address] Radiation Oncologist Radiation Oncology 03/31/23 documented as of this encounter
--- OUTSIDE RECORDS SUMMARY | 2024-02-15 13:40 | XMS_ITS | Encounter Summary ---
Author Organization [facility] Healthcare Address [address] [place] [address] Care Team Providers Care Clinical Physician Assistant Name Role Phone Jorge Espinosa Primary Care Provider + Edwin Lock MD Unavailable [phone] Ayleen Fan CHEMICAL PROCESS PROJECT ENGINEER Unavailable [phone] Reason for Visit * Reason Comments SHOP Patient Eligibility Review Encounter Details Date Type Department Care Team (Late st Contact Info) Description 04/01/2023 SHOP/CHAP Initial Eligibility Review [facility] OP CASE MANAGEMENT [address] [place] [address] Ayleen Fan, CHEMICAL PROCESS PROJECT ENGINEER [address] [facility] ([facility] Mailstop [phone] [place] [address] Social History Tobacco Use Types [...] on file Legal Sex Male 11:50 AM CONTROL ENGINEER Gender Identity Not on file Sexual Orientation Not on file documented as of this encounter Plan of Treatment Not on file documented as of this encounter Visit Diagnoses Not on filedocumented in this encounter Care Teams Clinical Physician Assistant Relationship Specialty Start Date End Date Jorge Espinosa PA [address] [place] [address] PCP - General Internal Medicine 03/31/23 Edwin Lock MD [address] [place] [address] Radiation Oncologist Radiation Oncology 03/31/23 Ayleen Fan LCSW 4590 [facility] ([facility]) Mailstop [phone] [place] [address] SHOP Outpatient Precision Jig Grinder 04/01/23 04/11/23 documented as of this encounter
--- OUTSIDE RECORDS SUMMARY | 2024-02-15 13:40 | XMS_ITS | Encounter Summary ---
Author Organization [facility] Address [address] [place] [address] Phone Care Team Providers Care Associate Brand Manager Name Role Phone Jorge Espinosa Primary Care Provider + Encounter Details Date Type Department Care Team (Latest Contact Info) Description 03/30/2023 11:45 AM SALON PROFESSIONAL - 03/30/2023 11:59 PM SALON PROFESSIONAL Hospital Encounter [facility] Pulmonary [address] [place] [id number] Discharge Disposition: Discharge to home or self [...] on file Legal Sex Male 11:50 AM SALON PROFESSIONAL Gender Identity Not on file Sexual [...] 12 hours or as directed by MD. lisinopriL (PRINIVIL,ZESTRIL) 10 mg tabletIndications:h ypertension Administer per tube 1 tablet (10 mg total) daily 03/31/2023 5 fjxjyngb-yks-sydhrq s gluconate (CENTRUM) 0.6 mg iron/mL liquid [...] without regard to meals. 4 tablet 04/01/2023 escitalopram (LEXAPRO) 20 mg tabletIndications:A nxiety with Depression Take 1 tablet (20 mg total) by mouth daily 4 levoFLOXacin (LEVAQUIN) 750 mg tabletIndications:P neumonia, Aspiration,Skin/Sof t Tissue Infection Take 1 tablet (750 mg total) by mouth daily for 4 doses 4 tablet 04/01/2023 4 lisinopriL (PRINIVIL,ZESTRIL) 10 mg tabletIndications:h ypertension Take 1 tablet (10 mg total) by mouth daily 4 nortriptyline (PAMELOR) 10 mg capsule Take 3 capsules (30 mg total) by mouth nightly as needed for sleep Take 1-3 tablets (10-30mg) as needed nightly for sleep 4 ondansetron (ZOFRAN) 4 mg tablet Take 1 tablet (4 mg total) by mouth every 8 (eight) hours as needed for nausea or vomiting 4 documented as of this encounter Discharge Disposition Disposition Code Departure Means Destination Discharge to home or self care documented in this encounter Plan of Treatment Not on file documented as of this encounter Procedures Procedure Name Priority Date/Time Associated Diagnosis Comments PULMONARY FUNCTION TEST (PFT) Routine 03/30/2023 1:11 PM SALON PROFESSIONAL documented in this encounter Results * Pulmonary Function Test -[facility]; Oxygen Assessment Titration (03/30/2023 1:11 PM SALON PROFESSIONAL) Anatomical Region Laterality Modality PFT Narrative 04/01/2023 11:14 AM SALON PROFESSIONAL Table formatting from the original result was not included. [facility] Division of Pulmonary & Critical Care Medicine [address] [place] [address]; [place] [address] [facility]; [place], [place] ??[address]; [phone] Pulmonary Function Laboratory Pulmonary Stress Test Simple/Oxygen Assessment Patient: Aleksey Godfrey Date: 03/30/2023 : 1960 Ht: 65 IN Wt: 112 LBS Time (min) Distance (ft)/ Cornelius O2 L/M SpO2 HR Gwen* BP FEV1 % Pred Rest: ??RA 92 80 0.5 158/72 1.33 45 % ? Walk/Bike: 1 ??RA/2 84/90 90 0 ? 2 ??2 92 95 0 ? 3 ??2 93 92 0.5 ? 4 ??2 95 95 0.5 ? 5 ??2 96 96 0 ? 6 min 0 sec ??2 94 98 0 ? Recovery: 1 ??2 95 89 0 180/66 1.40 47% 3 ??2 97 87 0 ?*Gwen rate of perceived exertion (1-10 dyspnea scale) ??Collin, CHEST 2003; 123:1408 Walk Test Summary: Six Minute Walk Distance: 504 ft Six-minute Walk Work [distance (m) x body wt (kg)]: 7790 kg.m (normal >60,000kg.m) Oxygen required to maintain SpO2 greater than 90% during six minutes of walkin L/M Comments: O2A Interpretation: Breathing room air, SpO2 is adequate at rest and during exercise sufficient to increase pulse from 80 to 98b/min, SpO2 falls to hypoxemic levels. On this basis, SpO2 is adequate at rest breathing room air and while walking breathing supplemental O2 at 2 L/min. This level of exercise is associated with no significant change of FEV1. ?? Diane Londono M.D. ?? By signing this report, the attending pulmonary physician certifies that he/she has personally reviewed and interpreted the graphic and numerical data associated with this pulmonary function study and has reviewed and /or edited a preliminary draft report and agrees with the written final report. us Logan Alvarado MD PFT ORDERABLES Final Resul t documented in this encounter Visit Diagnoses Not on filedocumented in this encounter Care Teams Associate Brand Manager Relationship Specialty Start Date End Date Jorge Espinosa PA [address] [place] [address] PCP - General Internal Medicine 03/21/23 03/30/23 documented as of this encounter
--- OUTSIDE RECORDS SUMMARY | 2024-02-15 13:40 | XMS_ITS | Encounter Summary ---
Author Organization [facility] Address [address] [place] [address] Care Team Providers Care Project Management Instructor Name Role Phone Jorge Espinosa Primary Care Provider + Jorge Espinosa Primary Care Provider + Edwin Lock MD Unavailable Ayleen Fan [facility] Unavailable [phone] Encounter Details Date Type Department Care Team (Late st Contact Info) Description 03/29/2023 Orders Only [facility] Radiology [address] [place] [address] Malena Roth RN Social History Tobacco Use Types Packs/Day [...] on file Legal Sex Male 11:50 AM NEUROUROLOGIST Gender Identity Not on file Sexual Orientation Not on file documented as of this encounter Plan of Treatment Not on file documented as of this encounter Visit Diagnoses Not on filedocumented in this encounter Additional Health Concerns Infection Onset Date Last Indicated Resolved Time COVID: Suspected Comment:Completed 03/29/2023 03/29/2023 03/29/2023 11:34 AM NEUROUROLOGIST documented as of this encounter Care Teams Project Management Instructor Relationship Specialty [place] [address] [place] [id number] PCP - General Internal Medicine 03/21/23 03/30/23 Jorge Espinosa PA [address] [place] [id number] PCP - General Internal Medicine 03/31/23 Edwin Lock MD [address] [place] [id number] Radiation Oncologist Radiation Oncology 03/31/23 Ayleen Fan LCSW [address] [facility] ([facility]) Mailstop [phone] [place] [address] [facility] [employer] 04/01/23 04/11/23 documented as of this encounter
--- OUTSIDE RECORDS SUMMARY | 2024-02-15 13:40 | XMS_ITS | Encounter Summary ---
Author Organization [facility] Healthcare Address [address] [place] [address] Care Team Providers Care Unit Support Representative Name Role Phone Jorge Espinosa Primary Care Provider + Reason for Visit * Auth/Cert (Routine) Specialty Diagnoses / Procedures Referred By Yasmin t Referred To Contact Diagnoses Oral mass OROPHARYNGEAL MASS WITH BLEEDING Procedures NA Referral ID Status Reason Start Date Expiration Date Visits Re quested Visits Authorized [id number] 1 1 Encounter Details Date Type Department Care Team (Late st Contact Info) Description 03/25/2023 2:49 PM MASTER TECHNICIAN Anesthesia Event [facility] Operating Room [address] [place] [address] Roxanne Brown MD [address] [facility] [address] [place] [address] [place] D[place] [address] [facility] [id number] [place] [address] Anesthesia Record Procedure Summary Procedure Name Responsible Anesthesiologist Anesthesia Start Time Anesthesia Stop Time LARYNGOSCOPY WITH BIOPSY (Throat) Roxanne Brown MD 03/25/23 1449 03/25/23 1643 Events Date Time Event Comment 03/25/2023 1430 In Preop 1449 An Start 1454 An Start Data 1455 In Room 1504 An Induction The patient was reevaluated immediately before moderate or deep sedation use and before anesthesia induction. 1517 An Intubation 1520 HOB turned 180 degrees 1520 Proc Start 1520 Incision Start 1521 Anesthesia Ready 1619 Proc Fin 1628 An Extubation 1634 Out of Room 1634 an stop data 1640 Handoff to RN I completed my handoff to the receiving nurse during which we: 1. Patient identified 2. Responsible provider identified 3. Pertinent medical history reviewed 4. Procedure type and surgical course discussed 5. Intraoperative anesthetic management and any significant issues discussed 6. Expectations and concerns for postop period discussed 7. Questions solicited from receiving nurse 8. Patient disposition at the time of handoff: No value filed. 1643 An Stop Meds Name Total midazolam PF 2 mg fentaNYL 50 mcg dexamethasone 4 mg/ml 10 mg phenylephrine 100 mcg/mL 450 mcg ePHEDrine 25 mg ondansetron PF (ZOFRAN) 2 mg/mL injectio n 4 mg glycopyrrolate 0.2 mg ketamine 10 mg/mL 30 mg dexmedeTOMIDine 80mcg/20mL (4 mcg/mL) 24 mcg Lactated Ringer's (LR) infusion 600 mL * Agents Name O2% N2O O2 Air Sevoflurane Inspired Sevoflurane * Blood No blood administrations on file. Lines, Drains, and Airways Type Details Placement Removal Peripheral IV Orientation: Right; Removal Date: 03/31/23; Removal Time: 1654; Removal Reason: Discharge 03/24/23 1632 by 03/31/23 1654 by Daniela Pardo RN Peripheral IV Placement Date: 03/23/23; Placement Time: 1644; Catheter Size: 20 G; Orientation: Right, Upper; Location: Forearm; Site Prep: Chlorhexidine; Removal Date: 03/27/23 03/23/23 1644 by Usha Schilling RN 03/27/23 0000 by Ruchi Fan Peripheral IV Placement Date: 03/24/23; Placement Time: 0600; Change Due: 03/31/23; Catheter Size: 20 G; Orientation: Anterior, Proximal, Right; Location: Forearm; Removal Date: 03/31/23; Removal Time: 1654; Removal Reason: Discharge 03/24/23 0600 by Ranjana Katz RN 03/31/23 1654 by Daniela Pardo RN Peripheral IV Placement Date: 03/24/23; Placement Time: 0600; Change Due: 03/31/23; Orientation: Left; Location: Antecubital; Removal Date: 03/25/23; Removal Time: 1438; Removal Reason: Removed by patient 03/24/23 0600 by Ranjana Katz RN 03/25/23 1438 by Winsome Burgess RETIRED Surgical Site 03/25/23; 1504; Mouth; 01/10/24 (Retired LDA, Removed/Completed by [facility] with LDA Utility); 1213 (Retired LDA, Removed/Completed by [facility] with LDA Utility) 03/25/23 1504 by Leandro Bower RN 01/10/24 1213 by Discharge Provider, Automatic ETT Placement Date: 03/25/23; Placement Time: 1528 (created via procedure documentation); Mask Ventilation: 0; Technique: Flexible bronchoscopy; Type: ETT - single; Single Lumen Tube Size: 7 mm; Cuffed: Yes; Location: Right nare; Insertion Attempts: 1; Placement Verification: Auscultation, Bronchoscopy, Capnometry; Removal Date: 03/25/23; Removal Time: 1628 03/25/23 1528 by Dilshad Craig CRNA 03/25/23 1628 by Dilshad Craig CRNA NG/OG/Gastric tube Placement Date: 03/25/23; Placement Time: 1546; Inserted by: Rocio Quiroz RN; Type: Nasogastric; Size: 10 Fr; Location: Left nostril; Removal Date: 03/29/23; Removal Time: 0850; Removal Reason: Per order 03/25/23 1546 by Leandro Bower RN 03/29/23 0850 by Malena Roth RN documented in this encounter Social History Tobacco Use Types Packs/Day Years [...] on file 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 Gender Identity Not on file Sexual Orientation Not on file documented as of this encounter OR Notes * Anesthesia Postprocedure Evaluation - Portillo Wills MD PhD - 03/25/2023 5:39 PM CST Patient: Aleksey Godfrey Procedure Summary Date: 03/25/23 Room / Location: [facility] OR POD 5 ROOM 218 / [facility] OR POD 5 Anesthesia Start: 1449 Anesthesia Stop: 164 Procedure: LARYNGOSCOPY WITH BIOPSY (Throat) Diagnosis: Oral mass (Oral mass [K13.79]) Surgeons: Rocio Quiroz MD Responsible Provider: Roxanne Brown MD Anesthesia Type: general ASA Status: 2 Anesthesia Type: general Last vitals BP (!) 178/78 Pulse 78 Temp 36.4 ??C (97.5 ??F) (Temporal) Resp 14 SpO2 98% Anesthesia Post Evaluation Patient location during evaluation: PACU Patient participation: complete - patient participated Level of consciousness: arouses prevention rn and follows simple commands Pain score: 2 Pain management: adequate Airway patency: adequate Evidence of recall: no Cardiovascular status: acceptable Respiratory status: acceptable and nasal cannula Hydration status: acceptable Pt is: normothermic Nausea/Vomiting status: none No notable events documented. ER TECHNICIAN * Anesthesia Procedure Notes - Dilshad Craig CRNA - 03/25/2023 3:27 PM CSTAssociated Order(s): Airway Airway Patient location: OR Urgency: elective Indications for airway management: anesthesia Difficult airway: no Staff: Supervising provider: Roxanne Brown MD Placed by: Resident: Valerie Heaton MD Emergent airway documentation: Risks and benefits discussed: yes Consent obtained: yes Consent given by: patient Airway prep: Preoxygenated: yes Patient position: sitting MILS maintained throughout: yes Mask difficulty assessment: 0 - not attempted Spontaneous ventilation during airway: present Sedation level during airway: moderate (conscious sedation) Final airway details: Final airway type: endotracheal airway Tube type: ETT ETT size: 7.0 mm Cuffed: yes Technique used for successful ETT placement: flexible bronchoscopy Insertion site: right nare Cuff volume: 7 mL Cuff inflated with: air ETT to nares: 26 cm Placement verified by: auscultation, bronchoscopy and CO2 detection Airway secured with: silk tape Number of attempts: 1 ER TECHNICIAN * Anesthesia Preprocedure Evaluation - Roxanne Brown MD - 03/25/2023 10:55 AM CST Images from the original note were not included. [facility] for Preoperative Assessment and Planning Preoperative Evaluation Record Evaluation type/location: IPAP at [facility] Planned procedure site: [facility] (Pods 2/3/5/FINANCIAL RISK MANAGER) Date: 03/25/23 Anesthesia Evaluation Aleksey Godfrey is a 63 y.o. male LARYNGOSCOPY WITH BIOPSY (Throat) Pre-Op Diagnosis Codes: * Oral mass [K13.79] HISTORY HPI Aleksey Godfrey is a 63 y.o. male who is being evaluated prior to undergoing LARYNGOSCOPY WITH BIOPSYfor an oral mass. Patient presented for bleeding from a oropharyngeal mass and syncopal episode from outside hospital. PMH: HTN, current smoker Past Medical History Information obtained from: patient and chart. Neurological Pertinent negatives: seizures; neuromuscular disease; CVA/stroke; TIA; CEA and carotid artery stent Cardiovascular + Hypertension (lisinopril) Pertinent negatives: CAD ; NM ; CABG ; systolic/diastolic dysfunction w/o CHF ; valvular heart disease; valve replacement; atrial fibrillation; pacemaker/ICD; PVD; DVT/PE; negative for CHF; drug-eluting stent(s); bare metal stent(s) and unknown stent(s) type Respiratory + Current smoker - Counseled to abstain from smoking the day of surgery. Pertinent negatives: COPD; asthma; sleep apnea (MAGDA) and no O2 use outside the hospital Hepatic / Heme + History of anemia (ABLA) Pertinent negatives: liver disease; history of thrombocytopenia and history of Tam positive Gastrointestinal Pertinent negatives: GERD Renal / Pertinent negatives: renal disease and dialysis Musculoskeletal/Pain Pertinent negatives: chronic pain Endocrine / Other Pertinent negatives: diabetes mellitus; thyroid disease; obesity (BMI >30); rheumatological disease and transplanted organ Functional Capacity Functional capacity: 4-6 METs Comments: Patient reports prior to hospitalization he could walk 3 blocks without SOB or CP and states he walks his granddaughter to the bus stop daily. Patient does reports increased fatigue over the past month. Review of Systems + previous transfusion (this admission) + bleeding problems (pt reports spitting up blood over the past ~2 months, denies any hemoptysis since admission) + syncope (x2 over the past ~2 months, last episode led to current admission) + dizziness (x2 associated with syncope) + muscle weakness (generalized) + vision loss (glasses) + dysphagia (with solids, states he does ok with liquids) + unexpected wt change Patient's weight: decreased, 60 lbs, Pertinent negatives: productive cough; wheezing; SOB; recent cold/flu; fever; chest pain; palpitations; orthopnea; pedal edema; PND; transfusion reaction; melena/hematochezia; easy bruising; chronic pain; numbness/tingling; hard of hearing; heartburn; nausea; diarrhea; dentures/partials; chipped/loose teeth and abdominal pain PAT Summary and Plans Cardiac risk classification of planned procedure: intermediate cardiac risk. Preoperative assessment status: complete. Initial preoperative evaluation discussed with: Davis Cuevas MD Additional comments: Aleksey Godfrey is a 63 y.o. male who is being evaluated prior to undergoing an intermediate cardiac risk surgery. Revised Cardiac Risk Index factors are (none) for a total RCRI of0 out of 6. Functional capacity is 4-6 METs. >ANESTHESIA concerns: potential for difficult airway. Mallampati IV with limited mouth opening in setting of oropharyngeal mass. Full cervical ROM. Obstructive sleep apnea (MAGDA) screening status is pending completion by admitting RN Blood bank needs for day of procedure: Type and Screen only Pending labs/tests include: NA 03/25 BMP without significant findings 03/25 H/H 8.6/25.7 03/24 CBC significant for H/H 8.0/24.4 03/23 PT/INR, PTT without significant findings 03/23 T&S active and without hx of antibodies >Per CTA head and neck in regards to oral mass, Multiple branches of the left external carotid artery including the ascending pharyngeal and lingual branches course through this mass without evidence of active arterial extravasation. Per ENT Scope and physical exam negative for source of bleeding. The mass is submucosal and hypomobile to the tongue musculature. We discussed that the next steps of his workup include tissue biopsy and additional imaging with a PET-CT. We deferred bedside biopsy due to trismus, decreased tongue mobility, and concern for hemostasis in setting of recent bleeding. CTA without evidence of active extravasation. >Patient reports he has been NPO since midnight >He has been having hempotysis over the past ~2 months. Patient had sycopal episode and increased hemoptysis leading to admission. Patient did say he pasted out ~2 months ago as well and thought he was dehydrated. Primary team is attributing this to acute blood loss anemia and low sodium (Na 131currently). Per primary team although sudden nature of fall, calls into question possible cardiac causes though less likely, would check echo. This has not been complete yet. Patient is 4-6 mets, although reports increased fatigue over the past month. Denies SOB or CP. Regular S1, S2 to auscultation. Discussed with CPAP attending, ok to proceed from anesthesia standpoint without TTE results. IPAP complete Preoperative evaluation performed by Tessy Mcgowan NP on 03/25/23 at 10:56 AM. . Patient Active Problem List Diagnosis Date Noted ??? Oral mass 03/23/2023 No past medical history on file. No past surgical history on file. No Known Allergies Taking? Last Dose Start Date End Date Provider escitalopram (LEXAPRO) 20 mg tablet -- -- -- Nieves Diaz MD lidocaine (LIDODERM) 5 % -- -- -- Nieves Diaz MD lisinopriL (PRINIVIL,ZESTRIL) 10 mg tablet -- -- -- Nieves Diaz MD nortriptyline (PAMELOR) 10 mg capsule -- -- -- Nieves Diaz MD ondansetron (ZOFRAN) 4 mg tablet -- -- -- Nieves Diaz MD Current Facility-Administered Medications: ??? acetaminophen (TYLENOL) tablet 650 mg, 650 mg, oral, Q4H PRN, 650 mg at 03/25/23 0623 ??? Carrier Fluids for Secondary Infusion - 0.9% Sodium Chloride, 30 mL, intravenous, PRN ??? [Held by Provider] escitalopram (LEXAPRO) tablet 20 mg, 20 mg, oral, Daily, 20 mg at 03/24/23 0910 ??? lidocaine (ASPERCREME) 4 % patch 1 patch, 1 patch, transdermal, Daily PRN ??? [Held by Provider] lisinopriL (PRINIVIL,ZESTRIL) tablet 10 mg, 10 mg, oral, Daily, 10 mg at 03/24/23 0910 ??? nicotine (NICODERM CQ) 14 mg patch 24 hour 1 patch, 1 patch, transdermal, Daily, 1 patch at 03/25/23 0841 ??? nortriptyline (PAMELOR) capsule 30 mg, 30 mg, oral, Nightly PRN ??? ondansetron ODT (ZOFRAN-ODT) disintegrating tablet 4 mg, 4 mg, oral, Q6H PRN OR ondansetron(ZOFRAN) injection 4 mg, 4 mg, intravenous, Q6H PRN ??? oxyCODONE (ROXICODONE) tablet 5 mg, 5 mg, oral, Q4H PRN, 5 mg at 03/25/23 0805 ??? polyethylene glycol (MIRALAX) packet 17 g, 17 g, oral, Daily PRN ??? ramelteon (ROZEREM) tablet 8 mg, 8 mg, oral, Nightly PRN, 8 mg at 03/23/23 2215 ??? sodium chloride 0.9% flush 0.5-20 mL, 0.5-20 mL, intra-catheter, Q8H TJ, 10 mL at 03/24/23 2253 ??? sodium chloride 0.9% flush 0.5-20 mL, 0.5-20 mL, intra-catheter, PRN Social History Tobacco Use Smoking Status Every Day ??? Packs/day: 1.50 ??? Years: 15.00 ??? Additional pack years: 0.00 ??? Total pack years: 22.50 ??? Types: Cigarettes ??? Start date: 02/1979 ??? Passive exposure: Never Smokeless Tobacco Never Alcohol Use: Not on file Substance and Sexual Activity Drug Use Not on file No family history on file. PAT Physical Exam Airway Exam: Mallampati: IV Cervical ROM: FROM TM distance: 3 Patient presents with poor mouth opening, mustache and claros. Cardiovascular Exam: Rate: regular Rhythm: regular Negative for Murmur Negative for peripheral edema Pulmonary Exam: LCTA, bilat EENT Exam: trachea midline Dental Exam: Edentulous Skin Exam: Skin is warm. Abdominal exam: Abdomen is soft. Bowel sounds are present. Current state: Patient's current state is cooperative and interactive. Line/Drains/Tubes/Devices: Lines in situ (right forearm 2 PIVs, left AC PIV): Vitals: 03/25/23 0733 03/25/23 0808 03/25/23 0836 BP: 146/66 135/68 135/72 Pulse: 63 69 75 Resp: 18 Temp: 36.7 ??C (98.1 ??F) SpO2: 96% 98% 100% Relevant diagnostics: ECG(s): 03/23/23: ECG rate: 73 ECG rate assessment: normal Rhythm: Rhythm: sinus rhythm QRS: QRS axis: Left QRS intervals: Wide Conduction: Conduction: abnormal Abnormal conduction: non-specific intraventricular conduction delay ST segments: ST segments: Normal T waves: T waves: inverted Inverted: V4, V5, V6, V3, I and aVL Echocardiogram(s): N/A Stress test(s): N/A Cardiac catheterization(s): N/A PFT(s): N/A Vascular studies: 03/23/23: CTA head and neck IMPRESSION: 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 Multiple branches of the left external carotid artery including the ascending pharyngeal and lingual branches course through this mass without evidence of active arterial extravasation. Other: 03/23/23: CXR IMPRESSION: No comparison available. Hyperinflated lungs. Mildly elevated left hemidiaphragm with mild left basilar reticular nodular opacities which may represent atelectasis vs bronchiolitis related to aspiration. No pulmonary edema. No pleural effusion or pneumothorax. Normal cardiomediastinal silhouette. PT: 03/23/2023: 11.8 sec INR: 03/23/2023: 1.04 APTT: 03/23/2023: 28 sec Hgb A1C: No results found for requested labs within last 30 days. CBC RBC: 03/24/2023: 2.58 M/cumm (L) RDW: No results found for requested labs within last 30 days. MCHC: 03/24/2023: 32.8 g/dL MCH: 03/24/2023: 31.0 pg MCV: 03/24/2023: 94.6 fL Hct: 03/25/2023: 25.7 % (L) Hgb: 03/25/2023: 8.6 g/dL (L) WBC: 03/24/2023: 4.8 K/cumm MPV: 03/24/2023: 9.2 fL Platelets: 03/24/2023: 247 K/cumm RDW CV: 03/24/2023: 14.0 % RDW Sd: 03/24/2023: 48.4 fL (H) BMP Glucose: 03/25/2023: 89 mg/dL Calcium: 03/25/2023: 8.3 mg/dL (L) Sodium: 03/25/2023: 131 mmol/L (L) Potassium: 03/25/2023: 4.0 mmol/L CO2: 03/25/2023: 28 mmol/L Chloride: 03/25/2023: 99 mmol/L BUN: 03/25/2023: 12 mg/dL Creatinine: 03/25/2023: 0.49 mg/dL (L) Short Blessed Total Score: 6 DOS Physical Exam Medical history, medications, and allergies reviewed. Attestation: I endorse the findings of the anesthesia pre-evaluation assessment dated: 03/25/2023. Airway Exam: Cervical ROM: FROM TM distance: 3.5 Patient presents with poor mouth opening. Inter-incisor gap (cm): 2 Cardiovascular Exam: Rate: regular Rhythm: regular Pulmonary Exam: LCTA, bilat EENT Exam: trachea midline Dental Exam: Edentulous Skin Exam: Skin is warm. Current state: Patient's current state is cooperative. Anesthesia Plan ASA 2 My patient is approved for the Anesthesia Controlled Medication protocol when under care of a SAXOPHONE PLAYER Planned anesthesia: General Team communication plan: fiberoptic and nasal ET tube Comments: Awake FOI Induction: Induction: intravenous. Postoperative Plan: Postoperative administration opioids intended. No postoperative mechanical ventilation intended. Patient's planned disposition post procedure is Floor. Planned trial extubation. Informed Consent: Discussed plan with resident, attending and SAXOPHONE PLAYER. Anesthesia plan and risks discussed with patient. Consent and Attending signature: I and/or my designee have discussed the anesthesia plan, benefits, possible alternatives, parental presence at time of induction (if indicated), and clinically relevant risks that may include dental injury, unintentional awareness, and/or other complications. The patient and/or parent/legal guardian understand, and agree to proceed. All questions answered. ER TECHNICIAN ER TECHNICIAN documented in this encounter Plan of Treatment Not on file documented as of this encounter Procedures Procedure Name Priority Date/Time Associated Diagnosis Comments MD AN PROCEDURE PLACEHOLDER Routine 03/25/2023 3:27 PM MASTER TECHNICIAN MD AN ELECTIVE ENDOTRACHEAL AIRWAY Routine 03/25/2023 3:27 PM MASTER TECHNICIAN documented in this encounter Results * MD AN ELECTIVE ENDOTRACHEAL AIRWAY, MD AN PROCEDURE PLACEHOLDER (03/25/2023 3:27 PM MASTER TECHNICIAN) Narrative Dilshad Craig CRNA - 03/25/2023 3:27 PM MASTER TECHNICIAN Dilshad Craig CRNA ? 03/25/2023 ??3:28 PM Airway Patient location: OR Urgency: elective Indications for airway management: anesthesia Difficult airway: no Staff: Supervising provider: Roxanne Brown MD Placed by: Resident: Valerie Heaton MD Emergent airway documentation: Risks and benefits discussed: yes Consent obtained: yes Consent given by: patient Airway prep: Preoxygenated: yes Patient position: sitting MILS maintained throughout: yes Mask difficulty assessment: 0 - not attempted Spontaneous ventilation during airway: present Sedation level during airway: moderate (conscious sedation) Final airway details: Final airway type: endotracheal airway Tube type: ETT ETT size: 7.0 mm Cuffed: yes Technique used for successful ETT placement: flexible bronchoscopy Insertion site: right nare Cuff volume: 7 mL Cuff inflated with: air ETT to nares: 26 cm Placement verified by: auscultation, bronchoscopy and CO2 detection Airway secured with: silk tape Number of attempts: 1 us Roxanne Brown MD ANESTHESIA ORDERABLES Final Resu lt documented in this encounter Visit Diagnoses Not on filedocumented in this encounter Administered Medications Inactive Administered Medications - up to 3 most recent administrations Medication Order MAR Action Action Date Dose Rate Site dexAMETHasone (DECADRON) 4 mg/mL injection intravenous, Administer over 2 Minutes, As needed, Starting on Tue03/25/23 at 1521, Anesthesia Intra-op Given 03/25/2023 3:21 PM MASTER TECHNICIAN 10 mg dexmedeTOMIDine (PRECEDEX) 80 mcg/20 mL (4 mcg/mL) in sodium chloride 0.9% (premix) intravenous, As needed, Starting on Tue03/25/23 at 1504, Anesthesia Intra-op Given 03/25/2023 3:12 PM MASTER TECHNICIAN 12 mcg Given 03/25/2023 3:04 PM MASTER TECHNICIAN 12 mcg ePHEDrine injection intravenous, Administer over 5 Minutes, As needed, Starting on Tue03/25/23 at 1533, Anesthesia Intra-op Given 03/25/2023 3:40 PM MASTER TECHNICIAN 15 mg Given 03/25/2023 3:33 PM MASTER TECHNICIAN 10 mg fentaNYL (SUBLIMAZE) preservative free injection intravenous, As needed, Starting on Tue03/25/23 at 1504, Anesthesia Intra-op Given 03/25/2023 3:04 PM MASTER TECHNICIAN 50 mcg glycopyrrolate (ROBINUL) injection intravenous, Administer over 1 Minutes, As needed, Starting on Tue03/25/23 at 1554, Anesthesia Intra-op Given 03/25/2023 3:54 PM MASTER TECHNICIAN 0.2 mg ketamine (KETALAR) injection intravenous, Administer over 2 Minutes, As needed, Starting on Tue03/25/23 at 1507, Anesthesia Intra-op Given 03/25/2023 3:12 PM MASTER TECHNICIAN 10 mg Given 03/25/2023 3:07 PM MASTER TECHNICIAN 20 mg Lactated Ringer's (LR) infusion 30 mL/hr, intravenous, Continuous, Starting on Tue03/25/23 at 1515, Pre-Op Restarted 03/25/2023 3:44 PM MASTER TECHNICIAN Rate/Dose Verify 03/25/2023 2:49 PM MASTER TECHNICIAN 30 mL/h r New Bag 03/25/2023 2:47 PM MASTER TECHNICIAN 30 mL/hr 30 mL/hr midazolam (VERSED) 2 mg/2 mL preservative free injection intravenous, Administer over 2 Minutes, As needed, Starting on Tue03/25/23 at 1449, Anesthesia Intra-op Given 03/25/2023 2:49 PM MASTER TECHNICIAN 2 mg ondansetron (ZOFRAN) injection intravenous, Administer over 2 Minutes, As needed, Starting on Tue03/25/23 at 1616, Anesthesia Intra-op Given 03/25/2023 4:16 PM MASTER TECHNICIAN 4 mg phenylephrine (CHARLES-SYNEPHRINE) 1 mg/10 mL (100 mcg/mL) in sodium chloride 0.9% (premix) intravenous, As needed, Starting on Tue03/25/23 at 1528, Anesthesia Intra-op Given 03/25/2023 4:04 PM MASTER TECHNICIAN 150 mcg Given 03/25/2023 3:54 PM MASTER TECHNICIAN 100 mcg Given 03/25/2023 3:40 PM MASTER TECHNICIAN 100 mcg documented in this encounter Care Teams Unit Support Representative Relationship Specialty Start Date End Date Jorge Espinosa PA [address] [place] [id number] PCP - General Internal Medicine 03/21/23 03/30/23 documented as of this encounter
--- OUTSIDE RECORDS SUMMARY | 2024-02-15 13:40 | XMS_ITS | Encounter Summary ---
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 [place] [address] Phone: tel: fax: Referral ID Status Reason Start Date Expiration Date Visits Requested Visits Authorized [id number] Canceled Specialty Services Required 03/31/2023 04/29/2024 1 1 Question Answer Please select the performing region: [facility] [[id number]] Please select the performing department: [facility] CAM RAD ONC [[id number]] Is this referral for Breast Health Multi-Disciplinary Clinic? No # of visits: 1 Does the patient have a diagnosis of a Head and Neck cancer? Yes GHT BROKER Reason for Visit * Reason Comments Cyst * Auth/Cert (Routine) Specialty Diagnoses / Procedures Referred By Yasmin jules Referred To Contact Diagnoses Oral mass OROPHARYNGEAL MASS WITH BLEEDING Procedures NA Referral ID Status Reason Start Date Expiration Date Visits Re quested Visits Authorized [id number] 1 1 Encounter Details Date Type Department Care Team (Latest Contact Info) Description 03/23/2023 2:31 PM FREIGHT BROKER - 03/31/2023 5:41 PM FREIGHT BROKER Hospital Encounter [facility] [address] [place] [address] Alessandra Licea DO [address] [place] [address] Cuba Yoder MD [address] [place] [address] Cammie Chang MD [address] [place] [address] Celio Bonds MD [address] [place] [address] Stanislaw Goel MD [address] [facility] [place] [address] Logan Alvarado MD [address] [place] [address] Rocio Quiroz MD [address] [place] [address] Oral mass (Primary Dx); Anemia, unspecified type; Acute blood loss anemia; 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); Cancer cachexia (CMS/HCC) (HCC); Respiratory failure with hypoxia, unspecified chronicity (HCC) Discharge Disposition: Discharge to home, home health skilled care Social History Tobacco Use Types Packs/Day [...] on file Legal Sex Male 11:50 AM FREIGHT BROKER Gender Identity Not on file Sexual Orientation Not on file documented as of this encounter Last Filed Vital Signs Vital Sign Reading Time Taken Comments Blood Pressure 150/67 03/31/2023 8:16 AM FREIGHT BROKER Pulse 73 03/31/2023 8:16 AM FREIGHT BROKER Temperature 37 ??C (98.6 ??F) 03/31/2023 8:16 AM FREIGHT BROKER Respiratory Rate 16 03/31/2023 8:16 AM FREIGHT BROKER Oxygen Saturation 94% 03/31/2023 8:16 AM FREIGHT BROKER Inhaled Oxygen Concentration - - Weight 51.2 kg (112 lb 14.4 oz) 03/30/2023 6:00 AM FREIGHT BROKER Height 165.1 cm (5' 5 ) 03/23/2023 2:39 PM FREIGHT BROKER Body Mass Index 18.79 03/23/2023 2:39 PM FREIGHT BROKER documented in this encounter Discharge Summaries * Erica Eli MD - 03/31/2023 12:33 PM CST Inpatient Discharge Summary BRIEF OVERVIEW Admitting Provider: Rocio Quiroz MD Discharge Provider: Logan Alvarado MD Primary Care Physician at Discharge: Jorge Espinosa PA [phone] Admission Date: 03/23/2023 Discharge Date: 03/31/2023 Admission Location: [facility] Problems/Diagnoses: Principal Problem: Oral mass Active Problems: Moderate malnutrition (CMS/HCC) 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 DETAILS OF HOSPITAL STAY Presenting Problem/History of Present Illness: Mr. Aleksey Garcia is a 63yo male with PMH HTN, active tobacco use, urinary retention, and newly found L oropharyngeal mass presenting with hemoptysis. He states that over the past year he's noticed a 40 lb weight loss and increasing difficulty with swallowing solids (okay with liquids), as well as a month of worsening N/V, and intermittent hemoptysis. The hemoptysis used to occur intermittently in small amounts (worse with solids) but acutely worsened over the weekend. He presented to an OSH on 03/21/23 where they found a large L oropharyngeal mass on CT neck. He was discharged home with plan to f/u with [facility] ENT outpatient. However earlier in the day of the presentation, he had another episode of hemoptysis reporting around 1 pint of blood loss so he came to the ER. Six months ago he moved from [place] to [place], [place] where he lives with his daughter and niece's family. Due to the move, there was some delay in establishing with a new PCP here. He first saw his PCP here last month where patient states he mentioned the dysphagia but at the time was also dealing with urinary retention requiring a glasgow (since removed), and he says they were focusing on thebladder first. However, last weekend the bleeding became acutely worse as above. Patient has a cough (clear sputum while in room), otherwise denies fevers, chills, night sweats, chest pain, SOB, neck/throat pain, abd pain, diarrhea, constipation, lightheadedness. Hospital Course: #L Oropharyngeal Mass c/f Malignancy #Hemoptysis/Acute Blood Loss Anemia Patient presented with worsening oral bleeding for past month, dysphagia, worse w/ solids. Also with 40 lb+ wt loss over past year. Pt went to OSH 03/[address] neck showed large L oropharyngeal massalong base of tongue, floor of mouth, GTS, lingual mandible. Was d/c'd home with plan to f/u with [facility] ENT. On 03/23 developed another episode of hemoptysis, reports ~1pint. BPs elevated, normocardic, on room air. Hgb 9.5 (03/21)->7.6 on admission. CTA H&N with large ulcerative L oropharyngeal neck mass 7.2x4.3x3.3cm highly suspicious for malignancy such as SCC involving L parapharyngeal, data operations manager, submandibular, sublingual spaces with ossesous involvement of L mandible; no e/o active extr avasation. CXR with L hemidiaphragm, mild L basilar [...] supraclavicular lymph node suspicious for anum metastasis, andaspiration pneumonia in the bilateral lung bases with likely reactive mediastinal and hilar lymph nodes. Case was discussed at ENT tumor board, who ultimately decided on chemoradiation without surgical intervention at this time. Medical and radiation oncology were consulted, who met with patient inpatient. Patient expressed interest in following up with Oncology at [facility] in [place], which will be arranged by medical and radiation oncology teams. ENT will schedule follow-up as needed. Pain controlled on PRN APAP, oxy. Hgb remained stable throughout the hospitalization. #Dysphagia #Malnutrition Dysphagia most likely 2/ oropharyngeal mass. Evaluation by STUBBER with [facility]BS on 03/24, who recommended full liquid diet without purees, liquid/crushed meds. Dietitian consulted for malnutrition. Dobhoff placed by ENT on 03/25. TF started and titrated to goal. Ultimately underwent PEG placement by IR on 03/28 with exchange due to PEG fall out on 03/29. Bolus TF titrated to goal (Osmolite 1.5 Mana 240 ml/hrbolus x4 daily with 60ml flush q6h). Patient continued FLD with ensure, and receive thiamine, vitamin b6, folic acid, MVI. Keflex was started on 03/29 for PEG exchange, was switched to levofloxacin for aspiration PNA as described below. Labs were monitored for possible refeeding, and electrolytes remained wnl. Patient discharged on home health which needs to be signed by PCP and/or possibly oncologist when patient follows-up in clinic to start. #Hypoxic Respiratory Failure #Aspiration Pneumonia Unknown duration. Likely acute on chronic. Occasional desaturations requiring 2L NC. Desats to [id number] 03/28-03/29 ON. Required up to 5L NC following PEG exchange on 03/29, that was weaned to RA. 03/29 RPP negative. 03/30 CXR bilateral pulm infiltrates R>L, which could represent pneumonia, perhaps from aspiration. Confirmed aspiration pneumonia on PET/CT. Patient started on 5 days of levofloxacin (03/31-04/04). Given extensive smoking and productive cough history, possible underlying COPD. Patientunderwent O2 assessment on 03/30, which indicated that he needs 2L NC at rest and exertion; home O2 ordered. Recommend that he follows-up with PCP for possible PFT. #Fall Patient fell and hit his head on the wall while trying to get out of bed on 03/29. Patient denied GANDHI, dizziness, palpitations, LOC. Reported slipping on his feet. L ear laceration noted. Most likely from residual anesthesia from PEG exchange earlier in the AM. Head CT without acute findings. Ear laceration healed. PT/OT recommended home with supervision, outpatient PT, home health OT. Patient discharged on , home PT/OT which needs to be signed by PCP and/or possibly oncologist to start. #Sinus opacification Patient found to have L maxillary and sphenoid sinus opacification with mucosal thickening in the ethmoid and sphenoid sinuses on hCT he underwent on 03/29 after his fall. PET negative for malignancy.Patient remained asymptomatic. ENT recommended nasal spray PRN. #Hyponatremia #SIADH Na 127 on admission. Unclear chronicity. Likely multifactorial hypotonic hypovolemic iso poor PO intake (which is now resolved) and mild SIADH due to malignancy. Initial improvement to 133 after 1L IVF 03/24. Repeat Serum osms 271, urine osms 479, Justin 139, c/f mild SIADH. IVF stopped with increase in PO intake and TF. Na remained stable around 131-133. #HTN Continued home lisinopril 10mg daily #Active TUD 30 pack yr hx. Smokes 0.5ppd (cut back from 1ppd). Nicotine patches while inpatient. Encouraged cessation. #Hx of Urinary Retention Previously required glasgow in past, since removed. Patient urinated without difficulty during this hospitalization #Mood Continued home escitalopram 20mg daily Active Issues Requiring Follow-up: Chemoradiation for new found L neck SCC Test Results Pending at Discharge: Pending Labs Order Current Status Hepatic function panel In process Infection Prevention MRSA Only (Staphylococcus aureus) Culture Nasal In process Magnesium In process Osmolality, blood In process Phosphorus In process Operative Procedures Performed: Procedure(s): LARYNGOSCOPY WITH BIOPSY Other Procedures: PEG placement and exchange with IR PET/CT Pertinent Test Results: Per hospital course Discharge Details Physical Exam at Discharge: Discharge Condition: stable Pulse: 73 Resp: 16 BP: 150/67 Temp: 37 ??C (98.6 ??F) Weight: 51.2 kg (112 lb 14.4 oz) Pertinent Exam Findings at Discharge: Constitutional: Cachetic, chronically ill appearing Eyes: EOMI grossly intact. Anicteric, sclera non-injected ENT: NCAT, neck supple, dry oral mucosa. Temporal wasting. Tongue deviating to R Lungs: Breathing comfortably on RA. Mildly decreased breath sounds on bilateral lung bases Cardiovascular: RRR, normal S1 and S2. GI: Soft, NT/ND Skin: No rashes, lesions, or bruises to exposed skin areas MSK/Extremities: prominent ribs and xiphoid. BLE non edematous, warm and well perfused Neuro: Alert, moving all extremities equally Discharge Disposition: Discharge to home, home health skilled care Code Status at Discharge: Full Discharge Instructions: - Please follow-up with medical and radiation oncology to start chemoradiation therapy. ENT may also schedule a follow-up as needed. - Please continue working with home PT/OT. - Please continue your tube feeds through your PEG. Please continue taking multivitamin. Please consider asking your oncologist regarding getting Ensure if you need more. - Your home health needs to be signed by your primary care physician or Oncologist. The next time you meet with either of them, please ask about home health. If you have any issues with your tube feed or PEG site, please call your primary care physician's office or Oncologist's office. - Please ask your primary care physician to fill out physician evaluation form for [place] Medicaid formto qualify for coverage. - You were found to have aspiration pneumonia. Please continue levofloxacin 750 mg daily for the next 4 days starting tomorrow, 04/01. - You were found to require oxygen based on our assessment. Please use 2L oxygen at home. Additionally, please consider discussing getting pulmonary function testing (PFT) with your primary care physician. - You will be on liquid medications. Please request refills in advance as local pharmacies may needto order in for liquid medications, which make take them more time to get your medications ready. Other Instructions Ambulatory referral to Home Health Service Line: Home Health Primary disciplines requested: Physical Therapy Care Home Secondary disciplines requested: Occupational Therapy Home Health Services: Disease and Medication Management Therapy to Eval/Tx Therapy instructions: Evaluation/treatment Requested Start of Care Date: Other Comment: Physician to follow patient's care (the person listed here will be responsible for signing ongoing orders): PCP I attest that I or another qualified licensed provider saw the patient 90 days prior to or 30 days post admission and this face to face encounter meets the necessary Home Health requirements. The face to face encounter occurred on (date): 03/30/2023 The encounter with the patient was in whole, or in part, for the following medical condition, whichis the primary reason for home health care. (List medical condition): oropharyngeal squamous cell carcinoma, malnutrition/cachexia I certify that, based on my findings, the following services are medically necessary skilled home health services: Therapy to Eval/Tx Other Comment: PEG tube Clinical findings that support the need for home care: Medical condition requiring skilled assessment/education I certify that my clinical findings support patient's homebound status. Homebound criteria met because: Poor endurance Shortness of breath with minimal exertion Oxygen Stationary Concentrator and portable gaseous Type of Portable System: Portable Gaseous Liter flow (Lpm): 2 Usage: Continuous W/ Activity At Rest Delivery Mode: Nasal Cannula For (# of days): 99 Comment - months SPO2 of 88 percent or less or ABG of 55 mm Hg or less that shows test completed within 48 hours of discharge?: Yes The pveb-ro-domk evaluation was performed on: 03/30/2023 DME services provided by: [facility] Discharge Medications: Current Medications TAKE these medications escitalopram 1 mg/mL solution Take 20 mL (20 mg total) by mouth daily Commonly known as: LEXAPRO levoFLOXacin 750 mg tablet Take 1 tablet (750 mg total) by mouth daily for 4 doses Take 2 hrs before or 2 hrs after multivitamin, antacids, or other products containing sucralfate, magnesium, aluminum, iron, or zinc. May be taken without regard to meals. For: Pneumonia, Aspiration, Skin/Soft Tissue Infection Commonly known as: LEVAQUIN Start taking on: April 01, 20[address] lid[address]aine 5 % Place 1 patch on the skin daily Remove & discard patch within 12 hours or as directed by MD. For: low back pain Commonly known as: LIDODERM lisinopriL 10 mg tablet Administer per tube 1 tablet (10 mg total) daily For: high blood pressure Commonly known as: YUDITH HERNÁNDEZ Notes to patient: Crush and administer this medication through your feeding tube. vsxvnlwg-zop-uymuwxp gluconate 0.6 mg iron/mL liquid Administer 15 mL per feeding tube daily Commonly known as: CENTRUM nicotine [address] 1 patch on the skin daily Commonly known as: NICODERM CQ nortriptyline 2 mg/mL solution Administer per tube 15 mL (30 mg total) nightly as needed (sleep) Commonly known as: PAMELOR ondansetron ODT 4 mg disintegrating tablet Take 1 tablet (4 mg total) by mouth every 6 (six) hours as needed for nausea or vomiting For: Nausea and Vomiting Commonly known as: ZOFRAN-ODT * oxyCODONE 1 mg/mL solution Administer per tube 5 mL (5 mg total) every 4 (four) hours as needed for pain For: pain Commonly known as: ROXICODONE * oxyCODONE 1 mg/mL solution Administer per tube 5 mL (5 mg total) every 4 (four) hours as needed for pain For: pain Commonly known as: ROXICODONE Start taking on: April 06, 2023 polyethylene glycol 17 gram/dose bulk powder Administer per tube 17 g daily For: constipation Commonly known as: MIRALAX * This list has 2 medication(s) that are the same as other medications prescribed for you. Read the directions carefully, and ask your doctor or other care provider to review them with you. Outpatient Follow-Up: Contact Information for Follow-ups [address] [address] Next Steps: Follow up Questions: Please select the performing region: [facility] Please select the performing department: [facility] CAM RAD ONC Is this referral for Breast Health Multi-Disciplinary Clinic?: No # of visits: 1 Does the patient have a diagnosis of a Head and Neck cancer?: Yes Referral Status: Pending Authorization Cosigned by Logan Alvarado MD at 03/31/2023 10:05 PM FREIGHT BROKER GHT BROKER GHT BROKER documented in this encounter Discharge Instructions * Discharge Instructions* Erica Eli MD - 03/30/2023 2:12 PM FREIGHT BROKER Mr. Garcia, You were admitted to [facility] for coughing up blood and neck mass. You underwent a comprehensive work-upincluding lab work and imaging, and ENT and oncology were consulted for their expertise. You were found to have squamous cell carcinoma of the neck. ENT recommended that you start with chemoradiationat this time. You will follow-up with oncology as outpatient for the chemoradiation. You were also seen by interventional radiologist and nutrition/dietitian for your nutritional status. PEG tube wasplaced and you were started on diet that was recommended by them. - Please follow-up with medical and radiation oncology to start chemoradiation therapy. ENT may also schedule a follow-up as needed. - Please continue working with home PT/OT. - Please continue your tube feeds through your PEG. Please continue taking multivitamin. Please consider asking your oncologist regarding getting Ensure if you need more. - Your home health needs to be signed by your primary care physician or Oncologist. The next time you meet with either of them, please ask about home health. If you have any issues with your tube feed or PEG site, please call your primary care physician's office or Oncologist's office. - Please ask your primary care physician to fill out physician evaluation form for [place] Medicaid formto qualify for coverage. - You were found to have aspiration pneumonia. Please continue levofloxacin 750 mg daily for the next 4 days starting tomorrow, 04/01. - You were found to require oxygen based on our assessment. Please use 2L oxygen at home. Additionally, please consider discussing getting pulmonary function testing (PFT) with your primary care physician. - You will be on liquid medications. Please request refills in advance as local pharmacies may needto order in for liquid medications, which make take them more time to get your medications ready. Take care. GHT BROKER GHT BROKER GHT BROKER GHT BROKER GHT BROKER GHT BROKER GHT BROKER GHT BROKER GHT BROKER GHT BROKER GHT BROKER GHT BROKER GHT BROKER GHT BROKER GHT BROKER GHT BROKER * Appointments* Leatha Kirkpatrick RN - 03/31/2023 2:28 PM FREIGHT BROKER You have an appointment with your primary care provider, SHAHID Montiel, on 05/02/2023 at 10:00 am. This is the soonest he was able to see you for a hospital follow-up appointment. You will be seeing him at the following location: [facility], [address] [place] [address], [address], [place] [address]. The phone number for the office is [phone]. If you are unable to make this appointment, please call as soon as possible to reschedule to another date. Thank you! Osmolite 1.5 calorie Tube Feedings and home oxygen will be provided by [facility] [place], phone# [phone]. As soon as you leave the hospital, please call [facility] at the number above and let them know youhave left. They will come to your home this evening to set up your oxygen concentrator for home use. You will only use the portable oxygen tanks when you leave home for MD appointments, etc. Please call them with any questions regarding these services. Thank you! We were unable to find a Home Health Agency that could accept your insurance, and that had staffingavailable. If you have any questions or concerns about your gastrostomy tube, please contact your Primary Care Providers office or your Oncologist's office. GHT BROKER GHT BROKER GHT BROKER GHT BROKER GHT BROKER documented in this encounter Medications at Time of Discharge [...] 1 tablet (10 mg total) daily 03/31/2023 vrcvvutt-hqr-gsrdcn s gluconate (CENTRUM) 0.6 mg iron/mL liquid [...] without regard to meals. 4 tablet 04/01/2023 4 documented as of this encounter Ordered Prescriptions Prescription Sig Dispense Quantity Refills Last Filled Start Date End Date oxyCODONE (ROXICODONE) solution 5 mg/5 mLIndications:Pain Administer per tube 5 mL (5 mg total) every 4 (four) hours as needed for pain 473 mL 04/06/2023 polyethylene glycol (MIRALAX) 17 gram/dose bulk powderIndications:c onstipation Administer per tube 17 g daily 510 g 03/30/2023 oxyCODONE (ROXICODONE) solution 5 mg/5 mLIndications:Pain Administer per tube 5 mL (5 mg total) every 4 (four) hours as needed for pain 473 mL 03/30/2023 ondansetron ODT (ZOFRAN-ODT) 4 mg disintegrating tabletIndications:N ausea and Vomiting Take 1 tablet (4 mg total) by mouth every 6 (six) hours as needed for nausea or vomiting 20 tablet 03/30/2023 nicotine (NICODERM CQ) [address] 1 patch on the skin daily 30 patch 03/31/2023 tctyecoe-vtr-qvwmmu s gluconate (CENTRUM) 0.6 mg iron/mL liquid Administer 15 mL per feeding tube daily 472 mL 03/30/2023 nortriptyline (PAMELOR) solution 10 mg/5 mL Administer per tube 15 mL (30 mg total) nightly as needed (sleep) 473 mL 03/30/2023 lisinopriL (PRINIVIL,ZESTRIL) 10 mg tabletIndications:h ypertension Administer per tube 1 tablet (10 mg total) daily 03/31/2023 02/21/202 5 escitalopram (LEXAPRO) oral solution 5 mg/5 mL Take 20 mL (20 mg total) by mouth daily 720 mL 03/30/2023 levoFLOXacin (LEVAQUIN) 750 mg tabletIndications:P neumonia, Aspiration,Skin/Sof t Tissue Infection Take 1 tablet (750 mg total) by mouth daily for 4 doses Take 2 hrs before or 2 hrs after multivitamin, antacids, or other products containing sucralfate, magnesium, aluminum, iron, or zinc. May be taken without regard to meals. 4 tablet 04/01/2023 4 levoFLOXacin (LEVAQUIN) 750 mg tabletIndications:P neumonia, Aspiration,Skin/Sof t Tissue Infection Take 1 tablet (750 mg total) by mouth daily for 4 doses 4 tablet 04/01/2023 4 documented in this encounter Discharge Disposition Disposition Code Departure Means Destination Comment s Discharge to home, home [facility] skilled assisted CARE NURSING documented in this encounter Progress Notes * Ofelia Santos, RD - 03/31/2023 5:24 PM CST NUTRITION ASSESSMENT Nutrition Status: Patient meets criteria for moderate chronic malnutrition, reference ASPEN guidelines. Present on Admission: Yes REASON FOR ASSESSMENT: Follow Up tube feeding assessment Encounter Date: 03/31/23 5:24 PM Admission Date: 03/23/2023 LOS: 8 days HPI: Patient is a 63 y.o. 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 Patient is somewhat a difficult historian in terms of timeline of events. He states that over the past year he's noticed a 40 lb weight loss and increasing difficulty with swallowing solids (okay with liquids), as well as a month of worsening N/V, and intermittent hemoptysis. on 03/21/23 where they found a large L oropharyngeal mass on CT neck. Six months ago he moved from [place] to [place], [place] where he lives with his daughter and niece's family. Patient denies , diarrhea, constipation, Objective History reviewed. No pertinent past medical history. Past Surgical History: Procedure Laterality Date APPENDECTOMY IR G TUBE PLACEMENT PERCUTANEOUS N/A 03/28/2023 IR G TUBE PLACEMENT PERCUTANEOUS N/A 03/29/2023 TONSILLECTOMY Social History Tobacco Use Smoking status: Every Day Current packs/day: 1.50 Average packs/day: 1.5 packs/day for 44.1 years (66.2 ttl pk-yrs) Types: Cigarettes Start date: 02/1979 Passive exposure: Never Smokeless tobacco: Never Substance and Sexual Activity Drug use: None Sexual activity: None Alcohol Use: Not At Risk (03/25/2023) AUDIT-C Frequency of Alcohol Consumption: Monthly or less Average Number of Drinks: 1 or 2 Frequency of Binge Drinking: Never MEDICATION/LAB REVIEW: Scheduled Meds: escitalopram, 20 mg, feeding tube, Daily folic acid, 1 mg, oral, Daily [START ON 04/01/2023] levoFLOXacin, 750 mg, feeding tube, Q24H lisinopriL, 10 mg, feeding tube, Daily hjdypzpr-xpv-ldlcttw gluconate, 15 mL, feeding tube, Daily nicotine, 1 patch, transdermal, Daily polyethylene glycol, 17 g, feeding tube, Daily sodium chloride 0.9%, 0.5-20 mL, intra-catheter, Q8H TJ sodium chloride 0.9%, 0.5-20 mL, intra-catheter, Q8H TJ thiamine, 100 mg, oral, Daily Continuous Infusions: PRN Meds: acetaminophen sodium chloride 0.9% lidocaine nortriptyline ondansetron ODT OR ondansetron oxyCODONE ramelteon sodium chloride sodium chloride 0.9% Recent Labs Lab Units 03/30/23203003/29/23202403/28/23195203/27/232017 SODIUM mmol/L 132* 131* 132* 131* POTASSIUM PLASMA mmol/L 4.3 4.7 5.1* 4.5 CHLORIDE mmol/L 91* 92* 92* 95* CO2 mmol/L 33* 34* 33* 32 BUN SERUM mg/dL 23 20 20 22 CREATININE mg/dL 0.55* 0.55* 0.49* 0.51* [id number] mL/min/1.73 m2 >90 >90 >90 >90 CALCIUM mg/dL 8.8 8.7 8.7 8.5 ALBUMIN g/dL -- -- -- 3.1* PHOSPHORUS PLASMA mg/dL 3.4 3.2 3.6 3.0 MAGNESIUM mg/dL 2.2 2.2 2.0 2.1 Recent Labs Lab Units 03/30/23203003/29/23202403/29/23171603/28/23195203/28/23170103/28/23 1151 GLUCOSE mg/dL 110 100 -- 104 -- -- POC GLUCOSE MONITOR mg/dL -- 108 89 -- 131 106 No results found for: ALT , AST , BILIRUBIN , ALKPHOS , LIPASE No results found for: HGBA1C , HDL , LDLCALC , CHOL , TRIG NURSING ASSESSMENT: Last BM Date: 03/30/23 Bowel Sounds (All Quadrants): Active Justin Scale Score: 19 Skin Integrity: Bruising Vital Signs BP: 150/67 Temp: 37 ??C (98.6 ??F) Pulse: 73 Resp: 16 SpO2: 94 % Intake/Output Summary (Last 24 hours) at 03/31/2023 1724 Last data filed at 03/31/2023 1200 Gross per 24 hour Intake 1260 ml Output 125 ml Net 1135 ml Adult Malnutrition Scoring Tool (MST) What diet do you follow at home?: NO SOLIDS ONLY LIQUIDS Have You Recently Lost Weight Without Trying?: Yes (Comment) How Much Weight Have You Lost?: 34 lb or more Have you been eating poorly because of a decreased appetite?: Yes Malnutrition Screening Tool (MST) Score: 5 Hunger Screen - Admission Within the past 12 months the food we bought just didn't last and we didn't have money to get more.: Never true Within the past 12 months we worried whether our food would run out before we got money to buy more.: Never true Anthropometrics Weight: 51.2 kg (112 lb 14.4 oz) Admission Weight : 51.7 kg Weight Change: -0.45 kg (-1.00 lbs) IBW/kg (Calculated) : 61.7 kg Height: 165.1 cm (5' 5 ) Weight in (lb) to have BMI = 25: 149.9 BMI (Calculated): 18.8 Wt Readings from Last 10 Encounters: 03/30/23 51.2 kg (112 lb 14.4 oz) ESTIMATED NEEDS: Total Kcal/kg Estimated Needs : 1723.68 Kcal/k. Type of Weight Used for Estimated Kcals: Current Total Protein Estimated Needs (gm): 74.04 Protein Needs Based on g/k.2 Type of Weight Used for Estimated Protein : Murray Dietary Orders (From admission, onward) Start Ordered 03/30/23 1107 Diet, Tube Feeding With Tray Osmolite 1.5 Mana; 240 (begin at 60 ml and increase by 60ml q4hrs until at goal of 240 ml then give 4 x day); 4X daily; 60; Every 6 hours Diet effective now Comments: Adjust free water flushes per hydration status Minimum flush 30 ml before and after feeding Question Answer Comment ([facility]) Tube Feeding Formula: Osmolite 1.5 Mana Tube Feeding Bolus (mL): 240 begin at 60 ml and increase by 60 ml q4hrs until at goal of 240 ml then give 4 x day Tube Feeding Bolus Frequency: 4X daily Tube Feeding Flush (mL): 60 Flush Frequency: Every 6 hours 03/30/23 1106 03/30/23 1107 Adult Diet Full Liquid, Restricted Diet effective now Comments: NO purees Medications: non-orally (or liquid form, crushed with liquid) Small bites, single sips, double/repeat swallows to clear Upright when eating Question Answer Comment ([facility]) Diet type Full Liquid ([facility]) Diet type Restricted 03/30/23 1107 03/29/23 1300 Oral Nutrition Supplements ([facility]) Select Supplement: Ensure PLUS High Protein - Any Flavor; Quantity (# of cans): 1 can 3 times daily and at bedtime Question Answer Comment ([facility]) Select Supplement: Ensure PLUS High Protein - Any Flavor Quantity (# of cans): 1 can 03/29/23 0940 Allergies: Reviewed. IMPRESSION: Pt s/p PEG placement 03/29 Pt receiving bolus tube feeds at goal States doing good with them no problems with N/V/D/C Is getting ready for discharge, was asked per case management to provide 2 days of tube feeding formula due to not receiving shipment immediately when at home Educated pt on tube feeds, discussed the need for potential changes in the future related to po intake, fluid intake encouraged pt to follow up with dietitian after discharge Recommend keeping track of weekly weight Handout on home tube feeds provided with my contact information Pt states his family lives with him and will be helping administer tube feeds Wt Readings from Last 15 Encounters: 03/30/23 51.2 kg (112 lb 14.4 oz) ASPEN MALNUTRITION ASSESSMENT: Date of completion: 03/25/23 Pt with unintentional weight loss and inadequate energy intake ASPEN Malnutrition Assessment: ASPEN/AND Malnutrition Screening: Chronic illness or injury mild/moderate Chronic Illness/Injury Mild/Moderate Energy Intake: < 75% energy intake compared to estimated energy needs > (or equal to) 1 month Weight Loss: 20% in 12 months Body Fat: Mild/Moderate Muscle Mass: Mild/Moderate Patient Meets Criteria for Moderate Malnutrition: Yes Nutrition Focused Physical Exam: Subcutaneous Fat Loss Orbital Region - Surrounding the Eye: Somewhat hollow look, Slightly dark circles Cheek Region - Buccal Fat: Somewhat sunken appearance Muscle Loss [place] - Temporalis Muscle: Slight depression Clavicle Bone Region - Pectoralis Major, Deltoid, Trapezius Muscles: Protruding, prominent bone Posterior Calf Region - Gastrocnemius Muscle: Thin, minimal to no muscle definition ASPEN/AND Malnutrition Screening: Chronic illness or injury mild/moderate Energy Intake: < 75% energy intake compared to estimated energy needs > (or equal to) 1 month Weight Loss: 20% in 12 months Body Fat: Mild/Moderate Muscle Mass: Mild/Moderate Patient Meets Criteria for Moderate Malnutrition: Yes NUTRITION FOCUSED PHYSICAL EXAM: Completed. Subcutaneous Fat Loss Orbital Region - Surrounding the Eye: Somewhat hollow look, Slightly dark circles Cheek Region - Buccal Fat: Somewhat sunken appearance Muscle Loss [place] - Temporalis Muscle: Slight depression Clavicle Bone Region - Pectoralis Major, Deltoid, Trapezius Muscles: Protruding, prominent bone Posterior Calf Region - Gastrocnemius Muscle: Thin, minimal to no muscle definition NUTRITION DIAGNOSIS: Nutrition Diagnosis 1: Inadequate oral intake Related to: Oral pharyngeal, Chronic illness/injury Evidenced by: Weight loss, Need for full tube feeding INTERVENTION(S): Summary: Initial assessment, Enteral nutrition administration Monitor plan of care NUTRITION INITIATION Recommend Full liquid diet per speech recommendations continue ensure plus high protein tid Per PEG recommend Enteral nutrition Bolus tube feeds Osmolite 1.5 @ 240mL/hr 4 x per day . Provides 1440 kcal (33 kcal/kg), 60 g protein (1.4 g/kg), 195g CHO, 47 g fat, and 731mL free water. begin at 60 ml/hr and increase by 60 ml q4hrs to goal of 240 ml then give 4 x day Minimum free water flush at 60 ml with each feeding 30 ml before and after If significant electrolyte abnormalities occur consider patient at significant risk and will provide additional recommendations. Continue VITAMIN RECOMMENDATIONS Thiamine: 100mg daily (PO / PT / IV) daily x 7 days Vitamin B6 (pyridoxine): 100mg (IV/PO/PT) x 5 days Folic Acid: 1mg (PO/PT) x 7 days MVI / Vitamin: 1 tablet (PO/PT) daily Monitor electrolytes replete as indicated GOAL(S): Adequate nutrition to meet estimated needs by next assessment, Tolerance of enteral feeding at goalrate MONITORING/EVALUATION: TF tolerance, Labs, Electrolyte changes GHT BROKER * Roland Villavicencio MD - 03/31/2023 10:00 AM CST Otolaryngology - Head & Neck Surgery Daily Progress Subjective Chief complaint: Chief Complaint Patient presents with Cyst 63M with newly detected oropharyngeal mass transferred from OSH for oral cavity bleeding. Received 1u pRBC. Currently hemostatic. Hgb drop 2 points at OSH - 7.9 here, receiving 1u pRBC. Hemostatic, no distress. 12m hemoptysis with eating; 60-lb weight loss, dysphagia to solids, stable for past couple of months on protein shakes; mild trismus over past 2 months Interval History: - AFVSS on NC 2L. - WBC 8.7 (10.5), Hgb 8.4 (8.8), Na 132 (131) - Breathing comfortably, no acute distress. No oral bleeding. Objective VITALS, 24HR MIN/MAX: Temp Min: 37 ??C (98.6 ??F) Max: 37.5 ??C (99.5 ??F) Pulse Min: 73 Max: 94 BP Min: 126/60 Max: 154/57 Resp Min: 16 Max: 20 SpO2 Min: 94 % Max: 100 % I&O I/O last 2 completed shifts: In: 1180 [P.O.:400; NG/GT:780] Out: 125 [Urine:125] Net IO Since Admission: 3,175 mL [03/31/23 1000] Output by Drain (mL) 03/29/23 0700 - 03/29/23 1859 03/29/23 1900 - 03/30/23 0659 03/30/23 0700 - 03/30/23 1859 03/30/23 1900 - 03/31/23 0659 03/31/23 0700 - 03/31/23 1000 Requested LDAs do not have output data documented. Scheduled Continuous As needed escitalopram, 20 mg, feeding tube, Daily folic acid, 1 mg, oral, Daily levoFLOXacin, 750 mg, feeding tube, Daily - 0600 lisinopriL, 10 mg, feeding tube, Daily lbgslmoy-inl-zzohmhf gluconate, 15 mL, feeding tube, Daily nicotine, 1 patch, transdermal, Daily polyethylene glycol, 17 g, feeding tube, Daily sodium chloride 0.9%, 0.5-20 mL, intra-catheter, Q8H TJ sodium chloride 0.9%, 0.5-20 mL, intra-catheter, Q8H TJ thiamine, 100 mg, oral, Daily acetaminophen, 650 mg, 650 mg at 03/29/23 0449 sodium chloride 0.9%, 30 mL lidocaine, 1 patch nortriptyline, 30 mg ondansetron ODT, 4 mg OR ondansetron, 4 mg oxyCODONE, 5 mg, 5 mg at 03/31/23 0816 ramelteon, 8 mg, 8 mg at 03/26/23 1959 sodium chloride, 1 spray sodium chloride 0.9%, 0.5-20 mL Physical Exam: Vitals: 03/30/23 1700 03/30/23 1955 03/31/23 0400 03/31/23 0816 BP: 149/76 154/57 126/60 150/67 BP Location: Left arm Right arm Right arm Patient Position: Lying Lying Lying Pulse: 79 89 94 73 Resp: 18 16 16 Temp: 37 ??C (98.6 ??F) 37.2 ??C (99 ??F) 37 ??C (98.6 ??F) TempSrc: Oral Oral Oral SpO2: 100% 97% 95% 94% Weight: Height: General: awake, NAD. Head and Face: NC, AT. Face symmetric. Eyes: Sclera white, no injection or chemosis, no periorbital edema Ears: Normal external ears. No drainage Nose: Dorsum midline, no drainage Mouth: Trismus, no vision lesions in oral cavity, tongue is deviated by left base of tongue mass, no OC/OP bleeding, MMM, tolerating secretions Neck: Soft and flat CV: Extremities warm and well-perfused Pulm: Normal quiet breathing. No respiratory distress, stridor, or wheeze. Neuro: Regards, follows commands. AOx3. CN grossly intact; moving all extremities Lab/Radiology/Diagnostic Review: LABS 24 HOURS: Lab Results Component Value Date WBC 8.7 03/30/2023 HGB 8.4 (L) 03/30/2023 HCT 26.1 (L) 03/30/2023 LABPLAT 445 (H) 03/30/2023 ALT 21 03/27/2023 AST 38 03/27/2023 SODIUM 132 (L) 03/30/2023 POTASSIUM 4.3 03/30/2023 CHLORIDE 91 (L) 03/30/2023 BUNSER 23 03/30/2023 CO2 33 (H) 03/30/2023 CREATININE 0.55 (L) 03/30/2023 GLUCOSE 110 03/30/2023 CALCIUM 8.8 03/30/2023 PHOS 3.4 03/30/2023 MAGNESIUM 2.2 03/30/2023 PT 11.8 03/23/2023 INR 1.04 03/23/2023 Lab Results Component Value Date MICROBIOLOGY Final Report: This is the final report. (.) 03/30/2023 DIRECTEXAM 03/30/2023 Stain: Abundant squamous epithelial cells seen indicating excessive oropharyngeal contamination. Culture will not be processed further. Please submit another specimen. Smear results called to and read back by: Ranjana Katz RN [phone] on 03/30/2023 15:49:00 by: Alis Harper GA DIRECTEXAM 03/30/2023 Molecular Analysis: Abundant squamous epithelial cells observed on Gram stain. Specimen will not be processed for rapidmolecular analysis. 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 male with oral cavity bleeding requiring transfusions in the setting of recently diagnosed left oropharyngeal mass. Scope and physical exam negative for source of bleeding. The mass is submucosal and hypomobile to the tongue musculature. We discussed that the next steps of his workup include tissue biopsy and additional imaging with a PET-CT. We deferred bedside biopsy due to trismus, decreased tongue mobility, and concern for hemostasis in setting of recent bleeding. CTA without evidence of active extravasation. Frozen sections indicating carcinoma. Plan: - Final pathology: p16+ SCCa - PET/CT done - G tube in place - Presented at tumor board, will recommend chemoradiation - Will plan for outpatient follow up with ENT, Medical Oncology, and Radiation Oncology Roland Villavicencio MD Otolaryngology - Head & Neck Surgery QUESTIONS: Weekdays daytime: [facility] Otolaryngology [facility] Consult New consults, after-hours & weekends: [facility] Otolaryngology [facility] Resident Primary/Night Float ENT scheduling line: [phone] (please include in discharge paperwork as needed) Cosigned by Rigoberto Sharma MD at 04/03/2023 9:56 PM FREIGHT BROKER GHT BROKER GHT BROKER * Erica lEi MD - 03/31/2023 7:04 AM CST Medicine Daily Progress Note Name: Aleksey Garcia Today: March 31, 2023 : 1960 Age: 63 y.o. male Admit: 03/23/2023 Bed: [id number] [facility] Daily Progress Subjective Mr. Garcia is a 63 y.o. male PMH HTN, active tobacco use, urinary retention, newly found L oropharyngeal mass, admitted 03/23/2023 2:31 PM for hemoptysis, hospital day 8. Interval History: NAEON. VSS. Tolerating TF at goal without n/v, abdominal pain. On RA this AM, denies CP, SOB, increase in coughing. Patient is interested in home health/PT/OT Brief plan -ENT tumor board meeting this AM -ENT to organize OP follow up w/ Head and Neck Surgery, Medical Oncology, and Radiation Oncology -Continue PEG TF, titrate to goal -Levofloxacin for aspiration PNA -Timing to be two hours apart from TF -Daily labs -Home O2: I reviewed the Walking O2 test results and the patient is in need of oxygen 2L/min via NCat rest and with exertion -Liquid meds to mobile pharmacy, escript for oxy to local pharmacy -Discuss HH, home PT/OT with patient -Patient would like to speak with SW regarding POA paperwork, also interested in short term disability and transportation to [facility] for treatment, will discuss these today with DM/SW Scheduled Meds PRN Meds Infusions escitalopram, 20 mg, feeding tube, Daily folic acid, 1 mg, oral, Daily levoFLOXacin, 750 mg, feeding tube, Daily - 0600 lisinopriL, 10 mg, feeding tube, Daily metroNIDAZOLE, 500 mg, feeding tube, TID nfwtfwdx-pdj-syxyeue gluconate, 15 mL, feeding tube, Daily nicotine, 1 patch, transdermal, Daily polyethylene glycol, 17 g, feeding tube, Daily sodium chloride 0.9%, 0.5-20 mL, intra-catheter, Q8H TJ sodium chloride 0.9%, 0.5-20 mL, intra-catheter, Q8H TJ thiamine, 100 mg, oral, Daily acetaminophen, 650 mg, Q4H PRN sodium chloride 0.9%, 30 mL, PRN lidocaine, 1 patch, Daily PRN nortriptyline, 30 mg, Nightly PRN ondansetron ODT, 4 mg, Q6H PRN Or ondansetron, 4 mg, Q6H PRN oxyCODONE, 5 mg, Q4H PRN ramelteon, 8 mg, Nightly PRN sodium chloride, 1 spray, Q2H PRN sodium chloride 0.9%, 0.5-20 mL, PRN Objective Vitals: Most Recent : Vitals: 03/31/23 0400 BP: 126/60 Pulse: 94 Resp: 16 Temp: 37 ??C (98.6 ??F) SpO2: 95% 24hr Min/Max: Temp Min: 36.8 ??C (98.2 ??F) Max: 37.5 ??C (99.5 ??F) Pulse Min: 79 Max: 94 BP Min: 126/60 Max: 154/57 Resp Min: 16 Max: 20 SpO2 Min: 94 % Max: 100 % Most Recent: Vitals: 03/31/23 0400 BP: 126/60 Pulse: 94 Resp: 16 Temp: 37 ??C (98.6 ??F) SpO2: 95% I/O last 2 completed shifts: In: 1180 [P.O.:400; NG/GT:780] Out: 125 [Urine:125] Intake/Output Summary (Last 24 hours) at 03/31/2023 0704 Last data filed at 03/31/2023 0645 Gross per 24 hour Intake 1180 ml Output 125 ml Net 1055 ml Net IO Since Admission: 3,175 mL [03/31/23 0704] Active Lines: Peripheral IV Right (Active) Peripheral IV 03/24/23 20 G Anterior;Proximal;Right Forearm (Active) Peripheral IV 03/27/23 20 G Anterior;Distal;Left Forearm (Active) Gastrostomy/Enterostomy Gastrostomy 24 Fr. LUQ (Active) Physical exam: Constitutional: Cachetic, chronically ill appearing Eyes: EOMI grossly intact. Anicteric, sclera non-injected ENT: NCAT, neck supple, dry oral mucosa. Temporal wasting Lungs: Breathing comfortably on 3L NC. Mildly decreased breath sounds on bilateral lung bases Cardiovascular: RRR, normal S1 and S2. GI: Soft, NT/ND Skin: No rashes, lesions, or bruises to exposed skin areas MSK/Extremities: Xiphoid bone visible. BLE non edematous, warm and well perfused Neuro: Alert, moving all extremities equally Lab/Diagnostic Review: Recent Results (from the past 36 hour(s)) Type and screen Collection Time: 03/29/23 8:25 PM Result Value Ref Range Tam, indirect Negative ABO Rh A Positive CBC without differential Collection Time: 03/29/23 8:25 PM Result Value Ref Range WBC 10.5 (H) 3.8 - 9.9 K/cumm Hgb 8.8 (L) 13.0 - 17.5 g/dL Hct 26.5 (L) 38.9 - 50.3 % Plt 378 150 - 400 K/cumm MPV 9.6 9.1 - 12.3 fL RBC 2.78 (L) 4.30 - 5.80 M/cumm MCV 95.3 81.3 - 96.4 fL MCH 31.7 27.1 - 33.3 pg MCHC 33.2 32.3 - 35.7 g/dL RDW CV 13.4 11.1 - 14.9 % RDW SD 47.4 35.7 - 48.1 fL NRBC abs 0.00 0.00 - 0.01 K/cumm Basic metabolic panel Collection Time: 03/29/23 8:25 PM Result Value Ref Range Sodium 131 (L) 135 - 145 mmol/L Potassium, pl 4.7 3.3 - 4.9 mmol/L Chloride 92 (L) 97 - 110 mmol/L CO2 34 (H) 22 - 32 mmol/L Anion gap 5 2 - 15 mmol/L BUN 20 6 - 25 mg/dL Creatinine 0.55 (L) 0.80 - 1.30 mg/dL Glucose 100 70 - 199 mg/dL Calcium 8.7 8.5 - 10.3 mg/dL Magnesium Collection Time: 03/29/23 8:25 PM Result Value Ref Range Magnesium 2.2 1.4 - 2.5 mg/dL Phosphorus Collection Time: 03/29/23 8:25 PM Result Value Ref Range Phosphorus, pl 3.2 2.3 - 4.5 mg/dL POCT glucose Collection Time: 03/29/23 8:25 PM Result Value Ref Range Glucose, POC 108 70 - 199 mg/dL eGFR Collection Time: 03/29/23 8:25 PM Result Value Ref Range eGFR >90 >=60 mL/min/1.73 m2 Pneumonia PCR with aerobic culture and Gram stain Sputum Collection Time: 03/30/23 2:11 PM Specimen: Sputum Result Value Ref Range Direct Specimen Exam (.) Stain: Abundant squamous epithelial cells seen indicating excessive oropharyngeal contamination. Culture will not be processed further. Please submit another specimen. Smear results called to and read back by: Ranjana Katz RN [phone] on 03/30/2023 15:49:00 by: Alis Harper GA Direct Specimen Exam Molecular Analysis: Abundant squamous epithelial cells observed on Gram stain. Specimen will not be processed for rapidmolecular analysis. CBC without differential Collection Time: 03/30/23 8:31 PM Result Value Ref Range WBC 8.7 3.8 - 9.9 K/cumm Hgb 8.4 (L) 13.0 - 17.5 g/dL Hct 26.1 (L) 38.9 - 50.3 % Plt 445 (H) 150 - 400 K/cumm MPV 9.6 9.1 - 12.3 fL RBC 2.71 (L) 4.30 - 5.80 M/cumm MCV 96.3 81.3 - 96.4 fL MCH 31.0 27.1 - 33.3 pg MCHC 32.2 (L) 32.3 - 35.7 g/dL RDW CV 13.5 11.1 - 14.9 % RDW SD 47.4 35.7 - 48.1 fL NRBC abs 0.00 0.00 - 0.01 K/cumm Basic metabolic panel Collection Time: 03/30/23 8:31 PM Result Value Ref Range Sodium 132 (L) 135 - 145 mmol/L Potassium, pl 4.3 3.3 - 4.9 mmol/L Chloride 91 (L) 97 - 110 mmol/L CO2 33 (H) 22 - 32 mmol/L Anion gap 8 2 - 15 mmol/L BUN 23 6 - 25 mg/dL Creatinine 0.55 (L) 0.80 - 1.30 mg/dL Glucose 110 70 - 199 mg/dL Calcium 8.8 8.5 - 10.3 mg/dL Magnesium Collection Time: 03/30/23 8:31 PM Result Value Ref Range Magnesium 2.2 1.4 - 2.5 mg/dL Phosphorus Collection Time: 03/30/23 8:31 PM Result Value Ref Range Phosphorus, pl 3.4 2.3 - 4.5 mg/dL eGFR Collection Time: 03/30/23 8:31 PM Result Value Ref Range eGFR >90 >=60 mL/min/1.73 m2 I have reviewed the laboratory results. Imaging Results: Neuro CT Outside Reference Narrative: EXAMINATION: Images For Reference Purposes Only Impression: These images are for Reference purposes only and have not been reviewed by [facility] Radiology. There will be no report generated by a [facility] Radiologist. Assessment/Plan Mr. Garcia is a 63 y.o. male PMH HTN, active tobacco use, urinary retention, and newly found L oropharyngeal mass, admitted 03/23/2023 2:31 PM for hemoptysis, hospital day 8. #L Oropharyngeal Mass c/f Malignancy #Hemoptysis/Acute Blood Loss Anemia Worsening oral bleeding for past month, dysphagia, worse w/ solids. Also with 40 lb wt loss over past year. Pt went to OSH 03/[address] neck showed large L oropharyngeal mass along base of tongue, floor of mouth, GTS, lingual mandible. Was d/c'd home with plan to f/u with [facility] ENT. On 03/23 developed another episode of hemoptysis, reports ~1pint. BPs elevated, normocardic, on room air. Hgb 9.5 (03/21)->7.6 on admission. CTA H&N with large ulcerative L oropharyngeal neck mass 7.2x4.3x3.3cm highly suspicious for malignancy such as SCC involving L parapharyngeal, data operations manager, submandibular, sublingual spaces with ossesous involvement of L mandible; no e/o active extravasation. CXR with L he midiaphragm, mild L basilar reticular nodular opacities c/f atelectasis vs bronchiolitis related toaspiration. - Hgb>7, T&S, coags wnl - ENT following - s/p bx and Dobhoff placement 03/25 - 03/25 surgical path: p16+ SCC with nonkeratinizing and basaloid features - PEG with IR 03/28, exchange due to PEG falling out on 03/29 - Keflex 500 BID x 5d (03/29-04/02), switched to levofloxacin as listed below - 03/30 PET-CT per ENT: Known L oropharynx mass. Probable metastatic left level IIa lymph node and mildly hypermetabolic right supraclavicular lymph node suspicious for anum metastasis. Aspiration pneumonia in the bilateral lung bases with likely reactive mediastinal and hilar lymph nodes. - ENT to organize OP follow up w/ Head and Neck Surgery, Medical Oncology, and Radiation Oncology - TB re: L maxillary and sphenoid sinus opacification with mucosal thickening in the ethmoid and sphenoid sinuses-> nasal spray PRN - 03/24 STUBBER MBS, rec FLD without purees, liquid/crushed meds - Document Control Specialist c/s for malnutrition - IR confirmed PEG placement. TF at goal. Continue liquid diet, ensure - Pain control: APAP, oxy PRN #Hyponatremia #SIADH Na 127 on admission. Unclear chronicity. Likely multifactorial hypotonic hypovolemic iso poor PO intake (which is now resolved) and mild SIADH due to malignancy. - Initial improvement to 133 after 1L IVF 03/24, now remaining around 131-133. - Repeat Serum osms 271, urine osms 479, Justin 139. Now volume replete. - d/c IVF now that patient's on TF and tolerating PO - CTM Na #Hyperkalemia- resolved K 5.2 on adm. Cr at baseline. Unclear etiology - Trending BMP, K now stable 4-4.4 #Hypoxic Respiratory Failure #Aspiration Pneumonia Unknown duration. Likely acute on chronic. Occasional desaturations requiring 2L NC. Desats to [id number] 03/28-03/29 ON. Required up to 5L NC following PEG exchange on 03/29, that was weaned to RA. Givenextensive smoking and productive cough history, possible underlying COPD. Possible infectious etiology given 03/30 CXR. With newly found SCC of neck, c/f further malignancy. - 03/29 RPP negative. - 03/30 CXR bilateral pulm infiltrates R>L, which could represent pneumonia, perhaps from aspiration. Dc Keflex (for PEG exchange), start levofloxacin x5d - PET/CT as above - O2 assessment- I reviewed the Walking O2 test results and the patient is in need of oxygen 2L/minvia NC at rest and with exertion. Home O2 ordered - F/u with PCP outpatient for possible PFT #HTN BPs elevated 140-170s/60-80s. - Continue home lisinopril 10mg daily #Active TUD 30 pack yr hx. Smokes 0.5ppd (cut back from 1ppd). 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 Reports urinating without difficulty - Monitor UOP and I/Os -> low threshold to bladder scan #Mood - Continue home escitalopram 20mg daily DVT ppx: holding iso acute bleeding, ambulate TID Diet: FLD without purees, liquid/crushed meds Code: Full Erica Eli MD Cosigned by Logan Alvarado MD at 03/31/2023 2:39 PM FREIGHT BROKER GHT BROKER GHT BROKER GHT BROKER GHT BROKER Associated attestation - Logan Alvarado MD - 03/31/2023 2:39 PM FREIGHT BROKER Attending Documentation I have seen and examined the patient on 03/31/23. I agree with the findings and plan of care as documented in the resident's/fellow's note. 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 Reviewed records from the following unique sources (external institutions or providers from different services): ENT. Independently interpreted CBC which shows Hb 8.4, which is low. Discussed management of SCC with Oncology. The patient is being intensively monitored for drug toxicity from Levofloxacin. The patient's diagnosis is significantly impacted by the following social determinants of health: neighborhood and physical environment. Logan Alvarado MD * Alek Tomlinson MD - 03/31/2023 6:50 AM CST Images from the original note were not included. Interventional Radiology Progress Note Patient History: 63 year old man with dysphagia now s/p pull type g tube 03/29. Initial push type G tube placed 03/28 fell out. Interval History: Tube feeds started yesterday and well tolerated. Patient doing well without abdominal complaint. Exam: General: alert & oriented X 3, NAD Skin: warm and well perfused C/V: normal rate and rhythm Pulm: normal respirations, symmetric chest rise, nonlabored breathing Abdomen: soft, NT/ND. GI tube site CDI Temp: [36.8 ??C (98.2 ??F)-37.5 ??C (99.5 ??F)] 37 ??C (98.6 ??F) Pulse: [79-94] 94 Resp: [16-20] 16 BP: (126-154)/(50-76) 126/60 Hematology Lab History Latest Ref Rng & Units 03/27/2023 03/28/2023 19:53 03/29/2023 20:25 03/30/2023 20:31 Labs - Hematology WBC 3.8 - 9.9 K/cumm 6.3 9.4 10.5 8.7 Total Hb, POC 13.0 - 17.5 g/dL 8.3 9.6 8.8 8.4 Hct 38.9 - 50.3 % 25.8 28.6 26.5 26.1 Plt 150 - 400 K/cumm 300 361 378 445 Details More abnormal values are hidden. Newest values shown. Go to activity for more data. Hematology Lab History Latest Ref Rng & Units 03/27/2023 03/28/2023 19:53 03/29/2023 20:25 03/30/2023 20:31 Labs - Hematology WBC 3.8 - 9.9 K/cumm 6.3 9.4 10.5 8.7 Total Hb, POC 13.0 - 17.5 g/dL 8.3 9.6 8.8 8.4 Hct 38.9 - 50.3 % 25.8 28.6 26.5 26.1 Plt 150 - 400 K/cumm 300 361 378 445 Details More abnormal values are hidden. Newest values shown. Go to activity for more data. Output by Drain (mL) 03/29/23 0700 - 03/29/23 1859 03/29/23 1900 - 03/30/23 0659 03/30/23 0700 - 03/30/23 1859 03/30/23 1900 - 03/31/23 0650 Requested LDAs do not have output data documented. Assessment and Plan: 63 y.o. male with dysphagia status post g tube placement. Assessment and Plan: -Continue tube feeds -Monitor for signs of peritonitis -IR will sign off at this time. Alek Tomlinson MD/PhD, PGY-3 GHT BROKER * Michelle Hopkins V., [employer] - 03/30/2023 2:48 PM CST 03/30/23 1446 Resting Information Resting HR. 93 bpm Resting SPO2 91 % (Pt was 87% on RA. Placed pt on 2L NC) Oxygen Setting 2L Delivery Device Nasal cannula Ambulation Trials to Assess Desaturation to 88% Activity 1: Ambulated (feet) 396 feet Oxygen Setting #1 2l SPO2 (%) #1 90 % Post Ambulation Assessment HR Post Assessment 97 bpm RR Post Assessment 18 breaths/m Post Assessment Recommendation Pt requires 2L of O2 at rest and when ambulating SpO2 of 88% on room air must be documented. Then titrate FiO2 to keep SpO2 above 90%. Rest SpO2 87% HR 93 Resting on Room Air SpO2 91% HR 93 Resting on 2 LNC Exertion Patient ambulated 396 feet SpO2 90% HR 104 while ambulating on 2 LNC Recommendations 2 LNC at rest 2 LNC with exertion Patient required > 4 LPM oxygen No GHT BROKER * Carli Rogers RRT - 03/30/2023 1:17 PM CST Pulmonary Rehab 03/30/23 1317 Daily Visit Information Comment 2nd attempt for Home O2 Assessment, pt declined, requested to do later. VT will continue tofollow. GHT BROKER * Carli Rogers RRT - 03/30/2023 9:19 AM CST Pulmonary Rehab 03/30/23 0919 Daily Visit Information Comment Home O2 Assessment not completed at this time d/t pt being off unit. VT will continue to follow. GHT BROKER * Erica Eli MD - 03/30/2023 7:08 AM CST Medicine Daily Progress Note Name: Aleksey Garcia Today: March 30, 2023 : 1960 Age: 63 y.o. male Admit: 03/23/2023 Bed: [id number] [facility] Daily Progress Subjective Mr. Garcia is a 63 y.o. male PMH HTN, active tobacco use, urinary retention, newly found L oropharyngeal mass, admitted 03/23/2023 2:31 PM for hemoptysis, hospital day 7. Interval History: NAEON. VSS -NPO since DE for PET -CXR bilateral pulm infiltrates R>L, which could represent pneumonia, perhaps from aspiration -Keflex-> CTX -Na stable 131. 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 Brief plan -PET/CT today -F/u IR re: PEG use- ok to use -Keflex 500 BID x5 for PEG exchange (03/29-04/02)-> CTX given possible aspiration PNA -Resume liquid diet, Ensure, PEG TF post imaging -Daily labs -ENT to organize OP follow up w/ Head and Neck Surgery, Medical Oncology, and Radiation Oncology -TB re: sinus opacifications -O2 assessment tentatively today -Liquid meds to mobile pharmacy -Discuss HH, home PT/OT with patient -Patient would like to speak with SW regarding POA paperwork, also interested in short term disability and transportation to [facility] for treatment, will discuss these today with DM/SW Scheduled Meds PRN Meds Infusions cephalexin, 500 mg, oral, BID escitalopram, 20 mg, oral, Daily folic acid, 1 mg, oral, Daily lisinopriL, 10 mg, oral, Daily multivitamin therapeutic, 1 tablet, oral, Daily nicotine, 1 patch, transdermal, Daily polyethylene glycol, 17 g, oral, Daily pyridoxine, 100 mg, oral, Daily sodium chloride 0.9%, 0.5-20 mL, intra-catheter, Q8H TJ sodium chloride 0.9%, 0.5-20 mL, intra-catheter, Q8H TJ sodium chloride 0.9%, 0.5-20 mL, intra-catheter, Q8H TJ thiamine, 100 mg, oral, Daily acetaminophen, 650 mg, Q4H PRN sodium chloride 0.9%, 30 mL, PRN sodium chloride 0.9%, 30 mL, PRN sodium chloride 0.9%, 30 mL, PRN lidocaine, 1 patch, Daily PRN nortriptyline, 30 mg, Nightly PRN ondansetron ODT, 4 mg, Q6H PRN Or ondansetron, 4 mg, Q6H PRN oxyCODONE, 5 mg, Q4H PRN ramelteon, 8 mg, Nightly PRN sodium chloride 0.9%, 0.5-20 mL, PRN sodium chloride 0.9%, 0.5-20 mL, PRN sodium chloride 0.9%, 0.5-20 mL, PRN sodium chloride 0.9%, 30 mL/hr sodium chloride 0.9%, 30 mL/hr Objective Vitals: Most Recent : Vitals: 03/30/23 0410 BP: 133/56 Pulse: 76 Resp: 18 Temp: 37 ??C (98.6 ??F) SpO2: 95% 24hr Min/Max: Temp Min: 36.4 ??C (97.5 ??F) Max: 37 ??C (98.6 ??F) Pulse Min: 64 Max: 80 BP Min: 113/50 Max: 152/61 Resp Min: 12 Max: 20 SpO2 Min: 91 % Max: 99 % Most Recent: Vitals: 03/30/23 0410 BP: 133/56 Pulse: 76 Resp: 18 Temp: 37 ??C (98.6 ??F) SpO2: 95% I/O last 2 completed shifts: In: 1370 [P.O.:1340; I.V.:30] Out: 800 [Urine:800] Intake/Output Summary (Last 24 hours) at 03/30/2023 0708 Last data filed at 03/30/2023 0608 Gross per 24 hour Intake 1370 ml Output 800 ml Net 570 ml Net IO Since Admission: 2,120 mL [03/30/23 0708] Active Lines: Peripheral IV Right (Active) Peripheral IV 03/24/23 20 G Anterior;Proximal;Right Forearm (Active) Peripheral IV 03/27/23 20 G Anterior;Distal;Left Forearm (Active) Gastrostomy/Enterostomy Gastrostomy 24 Fr. LUQ (Active) Physical exam: Constitutional: Cachetic, chronically ill appearing Eyes: EOMI grossly intact. Anicteric, sclera non-injected ENT: NCAT, neck supple, dry oral mucosa. Temporal wasting Lungs: Breathing comfortably on 3L NC. Mildly decreased breath sounds on bilateral lung bases Cardiovascular: RRR, normal S1 and S2. GI: Soft, NT/ND Skin: No rashes, lesions, or bruises to exposed skin areas MSK/Extremities: Xiphoid bone visible. BLE non edematous, warm and well perfused Neuro: Alert, moving all extremities equally Lab/Diagnostic Review: Recent Results (from the past 36 hour(s)) CBC without differential Collection Time: 03/28/23 7:53 PM Result Value Ref Range WBC 9.4 3.8 - 9.9 K/cumm Hgb 9.6 (L) 13.0 - 17.5 g/dL Hct 28.6 (L) 38.9 - 50.3 % Plt 361 150 - 400 K/cumm MPV 9.5 9.1 - 12.3 fL RBC 3.04 (L) 4.30 - 5.80 M/cumm MCV 94.1 81.3 - 96.4 fL MCH 31.6 27.1 - 33.3 pg MCHC 33.6 32.3 - 35.7 g/dL RDW CV 13.7 11.1 - 14.9 % RDW SD 47.0 35.7 - 48.1 fL NRBC abs 0.00 0.00 - 0.01 K/cumm Basic metabolic panel Collection Time: 03/28/23 7:53 PM Result Value Ref Range Sodium 132 (L) 135 - 145 mmol/L Potassium, pl 5.1 (H) 3.3 - 4.9 mmol/L Chloride 92 (L) 97 - 110 mmol/L CO2 33 (H) 22 - 32 mmol/L Anion gap 7 2 - 15 mmol/L BUN 20 6 - 25 mg/dL Creatinine 0.49 (L) 0.80 - 1.30 mg/dL Glucose 104 70 - 199 mg/dL Calcium 8.7 8.5 - 10.3 mg/dL Magnesium Collection Time: 03/28/23 7:53 PM Result Value Ref Range Magnesium 2.0 1.4 - 2.5 mg/dL Phosphorus Collection Time: 03/28/23 7:53 PM Result Value Ref Range Phosphorus, pl 3.6 2.3 - 4.5 mg/dL eGFR Collection Time: 03/28/23 7:53 PM Result Value Ref Range eGFR >90 >=60 mL/min/1.73 m2 Respiratory pathogen panel Nasopharyngeal Collection Time: 03/29/23 9:24 AM Specimen: Nasopharyngeal Result Value Ref Range Influenza A RNA Not Detected Not Detected Influenza B RNA Not Detected Not Detected RSV RNA Not Detected Not Detected COVID-19 RNA Not Detected Not Detected Coronavirus 229E RNA Not Detected Not Detected Coronavirus HKU1 RNA Not Detected Not Detected Coronavirus NL63 RNA Not Detected Not Detected Coronavirus OC43 RNA Not Detected Not Detected Adenovirus DNA Not Detected Not Detected Metapneumovirus RNA Not Detected Not Detected Rhinovirus/Enterovirus RNA Not Detected Not Detected Parainfluenza 1 RNA Not Detected Not Detected Parainfluenza 2 RNA Not Detected Not Detected Parainfluenza 3 RNA Not Detected Not Detected Parainfluenza 4 RNA Not Detected Not Detected B. pertussis DNA Not Detected Not Detected B. parapertussis DNA Not Detected Not Detected C. pneumoniae DNA Not Detected Not Detected M. pneumoniae DNA Not Detected Not Detected POCT glucose Collection Time: 03/29/23 5:17 PM Result Value Ref Range Glucose, POC 89 70 - 199 mg/dL Type and screen Collection Time: 03/29/23 8:25 PM Result Value Ref Range Tam, indirect Negative ABO Rh A Positive CBC without differential Collection Time: 03/29/23 8:25 PM Result Value Ref Range WBC 10.5 (H) 3.8 - 9.9 K/cumm Hgb 8.8 (L) 13.0 - 17.5 g/dL Hct 26.5 (L) 38.9 - 50.3 % Plt 378 150 - 400 K/cumm MPV 9.6 9.1 - 12.3 fL RBC 2.78 (L) 4.30 - 5.80 M/cumm MCV 95.3 81.3 - 96.4 fL MCH 31.7 27.1 - 33.3 pg MCHC 33.2 32.3 - 35.7 g/dL RDW CV 13.4 11.1 - 14.9 % RDW SD 47.4 35.7 - 48.1 fL NRBC abs 0.00 0.00 - 0.01 K/cumm Basic metabolic panel Collection Time: 03/29/23 8:25 PM Result Value Ref Range Sodium 131 (L) 135 - 145 mmol/L Potassium, pl 4.7 3.3 - 4.9 mmol/L Chloride 92 (L) 97 - 110 mmol/L CO2 34 (H) 22 - 32 mmol/L Anion gap 5 2 - 15 mmol/L BUN 20 6 - 25 mg/dL Creatinine 0.55 (L) 0.80 - 1.30 mg/dL Glucose 100 70 - 199 mg/dL Calcium 8.7 8.5 - 10.3 mg/dL Magnesium Collection Time: 03/29/23 8:25 PM Result Value Ref Range Magnesium 2.2 1.4 - 2.5 mg/dL Phosphorus Collection Time: 03/29/23 8:25 PM Result Value Ref Range Phosphorus, pl 3.2 2.3 - 4.5 mg/dL POCT glucose Collection Time: 03/29/23 8:25 PM Result Value Ref Range Glucose, POC 108 70 - 199 mg/dL eGFR Collection Time: 03/29/23 8:25 PM Result Value Ref Range eGFR >90 >=60 mL/min/1.73 m2 I have reviewed the laboratory results. Imaging Results: CT Head WO Contrast Narrative: EXAMINATION: CT head without contrast HISTORY: Fall, head trauma TECHNIQUE: CT of the head was performed with images acquired from skull base to vertex without intravenous contrast. COMPARISON: CT/CTA 03/23/2023 FINDINGS: Preserved leblanc-white matter differentiation. No acute intracranial hemorrhage. No midline shift. No hydrocephalus. Scattered foci of low attenuation in the periventricular and subcortical white matter are nonspecific but likely represent chronic small vessel ischemic change. Previously described oropharyngeal mass is not visualized. Normal orbits. Near-complete opacification of the left maxillary and sphenoid sinuses with mucosal thickening in the ethmoid and sphenoid sinuses. Mastoids are clear. Impression: No acute intracranial abnormality. Dictated by: Quincy Gil MD The radiology attending physician has personally reviewed this study, and had reviewed and/or edited this written report and agrees with it. Electronically signed by: Kolby Hodges M.D. IR G Tube Placement Percutaneous Narrative: EXAMINATION: PERCUTANEOUS FLUOROSCOPIC PULL-TYPE GASTROSTOMY CATHETER PLACEMENT INDICATION: 63 year old man with severe dysphagia requiring enteral nutrition. Push type G-tube placed 03/28/2023 fell out overnight. A Glasgow catheter was placed into the tract by the floor team. ATTENDING PRESENCE: Alek Talbot MD, the attending radiologist was present from the beginning to the end of the procedure. SEDATION: Procedural sedation was administered under the attending physician's direction and continuous monitoring by a trained nurse specialist who was independent from those actually performing the procedure. Total monitored sedation time was 32 minutes. TECHNIQUE: The risks, benefits and alternatives were discussed and informed consent was obtained. Prior to beginning the procedure, [place] Protocol was performed to confirm the patient's identity and the planned procedure. The fluoroscopy time has been recorded in the electronic medical record. Maximum sterile barriers including cap, mask, hand hygiene, sterile gloves, sterile gown, large sterile drape and 2% chlorhexidine for cutaneous antisepsis were used. Intravenous antibiotic prophylaxis was administered with 1 g of IV Ancef. Pre-existing feeding tube was noted to terminate in the stomach. Initial contrast injection through the Glasgow catheter that had been placed through the gastrostomy tube tract as a placeholder demonstrated the tip was not within the gastric lumen. This tube was removed prior to proceeding. An MPA catheter was advanced through the pre-existing gastrostomy tube tract with the assistance of a glide wire into the gastric lumen. Contrast injection was used to confirm intragastric position. A 0.035 snare was advanced through the MPA catheter and used to snare the distal tip of the pre-existing feeding tube. The feeding tube was subsequently pulled to the skin surface and the tip of the feeding tube was cut off. A long guidewire wire was advanced through the feeding tube to the oropharynx and the feeding tube was then removed. The guidewire was directed out of the patient's mouth such that through and through access was obtained from the abdominal wall through the oropharynx. Next, a 24 Ghanaian pull type gastrostomy tube was advanced over the guidewire from the oral end of the wire into the mouth, esophagus, and stomach and through the abdominal wall access site. The guidewire was removed, and the gastrostomy catheter was cut. Contrast was injected confirming intraluminal positioning and apposition of the bumper to the anterior gastric wall. An external bumper disc was advanced to secure the catheter to the skin with appropriate tension. The catheter was connected to gravity drainage. A dry sterile dressing was applied. ESTIMATED BLOOD LOSS: Minimal. CONDITION: Stable DISCHARGED TO: patient care division. FINDINGS: Final fluoroscopic images demonstrate the gastrostomy catheter with its tip in the body of the stomach. No complications are identified. Impression: Successful placement of a 24 Ghanaian pull-through gastrostomy catheter. PLAN: The gastrostomy catheter will remain to gravity drainage overnight. It may be used for administration of liquid medications. The tube should be capped after administration of the medication for an hour and then reconnected to gravity drainage. The output should be recorded every shift. The patient will be examined in the morning prior to clearing the catheter for usage for tube feeds. Feedings will likely start in a day and be advanced to goal before discharge. Antibiotic prophylaxis should be continued for 5 days post gastrostomy catheter placement. Dictated by: Alek Tomlinson MD, PHD The radiology attending physician has personally reviewed this study, and had reviewed and/or edited this written report and agrees with it. Electronically signed by: Alek Talbot MD Assessment/Plan Mr. Garcia is a 63 y.o. male PMH HTN, active tobacco use, urinary retention, and newly found L oropharyngeal mass, admitted 03/23/2023 2:31 PM for hemoptysis, hospital day 7. #L Oropharyngeal Mass c/f Malignancy #Hemoptysis/Acute Blood Loss Anemia Worsening oral bleeding for past month, dysphagia, worse w/ solids. Also with 40 lb wt loss over past year. Pt went to OSH 03/[address] neck showed large L oropharyngeal mass along base of tongue, floor of mouth, GTS, lingual mandible. Was d/c'd home with plan to f/u with [facility]. On 03/23 developed another episode of hemoptysis, reports ~1pint. BPs elevated, normocardic, on room air. Hgb 9.5 (03/21)->7.6 on admission. CTA H&N with large ulcerative L oropharyngeal neck mass 7.2x4.3x3.3cm highly suspicious for malignancy such as SCC involving L parapharyngeal, data operations manager, submandibular, sublingual spaces with ossesous involvement of L mandible; no e/o active extravasation. CXR with L he midiaphragm, mild L basilar reticular nodular opacities c/f atelectasis vs bronchiolitis related toaspiration. 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 Start TF after PET, titrate to goal. Continue liquid diet, ensure - Pain control: APAP, oxy PRN #Hyponatremia #SIADH Na 127 on admission. Unclear chronicity. Likely multifactorial hypotonic hypovolemic iso poor PO intake (which is now resolved) and mild SIADH due to malignancy. - Initial improvement to 133 after 1L IVF 03/24, now remaining around 131-133. - Repeat Serum osms 271, urine osms 479, Justin 139. Now volume replete. - d/c IVF now that patient's on TF and tolerating PO - CTM Na #Hyperkalemia- resolved K 5.2 on adm. Cr at baseline. Unclear etiology - Trending BMP, K now stable 4-4.4 #Respiratory Insufficiency Unknown duration. Occasional desaturations requiring 2L NC. Desats to high 80s 03/28-03/29 ON. Required up to 5L NC following PEG exchange on 03/29, that was weaned to RA. Given extensive smoking and productive cough history, possible underlying COPD. Possible infectious etiology given 03/30 CXR. With newly found SCC of neck, c/f further malignancy. - 03/29 RPP negative. - 03/30 CXR bilateral pulm infiltrates R>L, which could represent pneumonia, perhaps from aspiration. Dc Keflex (for PEG exchange), start CTX x5d - PET/CT to r/o malignancy - O2 assessment - F/u with PCP outpatient for possible PFT #HTN BPs elevated 140-170s/60-80s. - Continue home lisinopril 10mg daily #Active TUD 30 pack yr hx. Smokes 0.5ppd (cut back from 1ppd). 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 Reports urinating without difficulty - Monitor UOP and I/Os -> low threshold to bladder scan #Mood - Continue home escitalopram 20mg daily DVT ppx: holding iso acute bleeding, ambulate TID Diet: FLD without purees, liquid/crushed meds Code: Full Erica Eli MD Cosigned by Logan Alvarado MD at 03/30/2023 2:24 PM FREIGHT BROKER GHT BROKER GHT BROKER GHT BROKER Associated attestation - Logan Alvarado MD - 03/30/2023 2:24 PM FREIGHT BROKER Attending Documentation I have seen and examined the patient on 03/30/23. I agree with the findings and plan of care as documented in the resident's/fellow's note. 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 Reviewed records from the following unique sources (external institutions or providers from different services): VIR. Independently interpreted PET which shows large oropharyngeal mass, hypermetabolic supraclavicular LN, aspiration pneumonia . The patient is being intensively monitored for drug toxicity from CTX. The patient's diagnosis is significantly impacted by the following social determinants of health: income or economic instability and access to healthcare. Logan Alvarado MD * DaviAlek MD - 03/30/2023 6:59 AM CST Images from the original note were not included. Interventional Radiology Progress Note Patient History: 63 year old man with dysphagia now s/p pull type g tube 03/29. Initial push type G tube placed 03/28 fell out. Interval History: No issues overnight. Approx 600 ml drain output from g tube. Exam: General: alert & oriented X 3, NAD Skin: warm and well perfused C/V: normal rate and rhythm Pulm: normal respirations, symmetric chest rise, nonlabored breathing Abdomen: soft, NT/ND. Gtube site CDI Temp: [36.4 ??C (97.5 ??F)-37 ??C (98.6 ??F)] 37 ??C (98.6 ??F) Pulse: [64-80] 76 Resp: [12-20] 18 BP: (113-152)/(50-72) 133/56 Chem/LFT Lab History Latest Ref Rng & Units 03/26/2023 03/27/2023 03/28/2023 19:53 03/29/2023 20:25 Labs-Chem/LFT Sodium 135 - 145 mmol/L 131 131 132 131 Creatinine 0.80 - 1.30 mg/dL 0.52 0.51 0.49 0.55 Bilirubin, total 0.1 - 1.2 mg/dL <0.2 <0.2 AST 10 - 50 Units/L 40 38 ALT 7 - 55 Units/L 19 21 Alk phos 40 - 130 Units/L 74 83 CrCl- Actual Body Weight (Cockcroft-Gault) 87.5 89.2 92.8 99.2 Details More abnormal values are hidden. Newest values shown. Go to activity for more data. More values are hidden. Newest values shown. Go to activity for more data. Hematology Lab History Latest Ref Rng & Units 03/26/2023 20:12 03/27/2023 03/28/2023 19:53 03/29/2023 20:25 Labs - Hematology WBC 3.8 - 9.9 K/cumm 8.8 6.3 9.4 10.5 Total Hb, POC 13.0 - 17.5 g/dL 8.0 8.3 9.6 8.8 Hct 38.9 - 50.3 % 24.1 25.8 28.6 26.5 Plt 150 - 400 K/cumm 280 300 361 378 Details More abnormal values are hidden. Newest values shown. Go to activity for more data. No results found for: MICROBIOLOGY Output by Drain (mL) 03/28/23 07 - 03/28/23 18503/28/23 190 - 03/29/23 0659 03/29/23 07 - 03/29/23 18503/29/23 190 - 03/30/23 0659 03/30/23 07 - 03/30/23 07 Requested LDAs do not have output data documented. Assessment and Plan: 63 y.o. male with dysphagia status post g tube placement. - Okay to initiate TF and ADAT - Please flush G-tube after TF and crushed Rx administration - Monitor for signs of peritonitis - Continue routine drain site care and dressing changes - IR will continue to follow. Alek Tomlinson MD/PhD Gas Regulator Repairer Helper (PGY-3) GHT BROKER * Ofelia Santos, RD - 03/29/2023 2:18 PM CST NUTRITION ASSESSMENT Nutrition Status: Patient meets criteria for moderate chronic malnutrition, reference ASPEN guidelines. Present on Admission: Yes REASON FOR ASSESSMENT: Follow Up tube feeding assessment Encounter Date: 03/29/23 2:18 PM Admission Date: 03/23/2023 LOS: 6 days HPI: Patient is a 63 y.o. 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 Patient is somewhat a difficult historian in terms of timeline of events. He states that over the past year he's noticed a 40 lb weight loss and increasing difficulty with swallowing solids (okay with liquids), as well as a month of worsening N/V, and intermittent hemoptysis. on 03/21/23 where they found a large L oropharyngeal mass on CT neck. Six months ago he moved from [place] to [place], [place] where he lives with his daughter and niece's family. Patient denies , diarrhea, constipation, Objective History reviewed. No pertinent past medical history. Past Surgical History: Procedure Laterality Date APPENDECTOMY IR G TUBE PLACEMENT PERCUTANEOUS N/A 03/28/2023 TONSILLECTOMY Social History Tobacco Use Smoking status: Every Day Current packs/day: 1.50 Average packs/day: 1.5 packs/day for 44.1 years (66.2 ttl pk-yrs) Types: Cigarettes Start date: 02/1979 Passive exposure: Never Smokeless tobacco: Never Substance and Sexual Activity Drug use: None Sexual activity: None Alcohol Use: Not At Risk (03/25/2023) AUDIT-C Frequency of Alcohol Consumption: Monthly or less Average Number of Drinks: 1 or 2 Frequency of Binge Drinking: Never MEDICATION/LAB REVIEW: Scheduled Meds: cephalexin, 500 mg, oral, BID escitalopram, 20 mg, oral, Daily folic acid, 1 mg, oral, Daily lisinopriL, 10 mg, oral, Daily multivitamin therapeutic, 1 tablet, oral, Daily nicotine, 1 patch, transdermal, Daily pyridoxine, 100 mg, oral, Daily sodium chloride 0.9%, 0.5-20 mL, intra-catheter, Q8H TJ sodium chloride 0.9%, 0.5-20 mL, intra-catheter, Q8H TJ sodium chloride 0.9%, 0.5-20 mL, intra-catheter, Q8H TJ sodium zirconium cyclosilicate, 10 g, oral, Once thiamine, 100 mg, oral, Daily Continuous Infusions: sodium chloride 0.9%, 30 mL/hr sodium chloride 0.9%, 30 mL/hr PRN Meds: acetaminophen sodium chloride 0.9% sodium chloride 0.9% sodium chloride 0.9% lidocaine nortriptyline ondansetron ODT OR ondansetron oxyCODONE polyethylene glycol ramelteon sodium chloride 0.9% sodium chloride 0.9% sodium chloride 0.9% Recent Labs Lab Units 03/28/23195203/27/23201703/27/23 0911 SODIUM mmol/L 132* 131* 130* POTASSIUM PLASMA mmol/L 5.1* 4.5 4.0 CHLORIDE mmol/L 92* 95* 94* CO2 mmol/L 33* 32 31 BUN SERUM mg/dL 20 22 18 CREATININE mg/dL 0.49* 0.51* 0.57* QAF-CAC-IRIGIEA mL/min/1.73 m2 >90 >90 >90 CALCIUM mg/dL 8.7 8.5 8.3* ALBUMIN g/dL -- 3.1* -- PHOSPHORUS PLASMA mg/dL 3.6 3.0 3.1 MAGNESIUM mg/dL 2.0 2.1 2.0 Recent Labs Lab Units 03/28/23195203/28/23 1702 03/28/23 1151 03/27/23201703/27/23 0911 03/27/23 0800 03/26/232011 GLUCOSE mg/dL 104 -- -- 88 127 -- 112 POC GLUCOSE MONITOR mg/dL -- 131 106 -- -- 138 -- ALT Date Value Ref Range Status 03/27/2023 21 7 - 55 Units/L Final AST Date Value Ref Range Status 03/27/2023 38 10 - 50 Units/L Final Alk phos Date Value Ref Range Status 03/27/2023 83 40 - 130 Units/L Final No results found for: HGBA1C , HDL , LDLCALC , CHOL , TRIG NURSING ASSESSMENT: Last BM Date: 03/25/23 Bowel Sounds (All Quadrants): Active, Present Justin Scale Score: 19 Skin Integrity: Bruising Vital Signs BP: 143/66 Temp: 36.4 ??C (97.5 ??F) Pulse: 75 Resp: 16 SpO2: 99 % Intake/Output Summary (Last 24 hours) at 03/29/2023 1418 Last data filed at 03/29/2023 0452 Gross per 24 hour Intake 30 ml Output 200 ml Net -170 ml Adult Malnutrition Scoring Tool (MST) What diet do you follow at home?: NO SOLIDS ONLY LIQUIDS Have You Recently Lost Weight Without Trying?: Yes (Comment) How Much Weight Have You Lost?: 34 lb or more Have you been eating poorly because of a decreased appetite?: Yes Malnutrition Screening Tool (MST) Score: 5 Hunger Screen - Admission Within the past 12 months the food we bought just didn't last and we didn't have money to get more.: Never true Within the past 12 months we worried whether our food would run out before we got money to buy more.: Never true Anthropometrics Weight: 51.7 kg (113 lb 14.4 oz) Admission Weight : 51.7 kg Weight Change: 8.57 kg (18.90 lbs) IBW/kg (Calculated) : 61.7 kg Height: 165.1 cm (5' 5 ) Weight in (lb) to have BMI = 25: 149.9 BMI (Calculated): 19 Wt Readings from Last 10 Encounters: 03/29/23 51.7 kg (113 lb 14.4 oz) ESTIMATED NEEDS: Total Kcal/kg Estimated Needs : 1723.68 Kcal/k. Type of Weight Used for Estimated Kcals: Current Total Protein Estimated Needs (gm): 74.04 Protein Needs Based on g/k.2 Type of Weight Used for Estimated Protein : Murray Dietary Orders (From admission, onward) Start Ordered 03/30/23 0001 NPO Diet Diet effective midnight 03/29/23 0940 03/29/23 1306 Adult Diet Full Liquid, Restricted Diet effective now Comments: NO purees Medications: non-orally (or liquid form, crushed with liquid) Small bites, single sips, double/repeat swallows to clear Upright when eating Question Answer Comment ([facility]) Diet type Full Liquid ([facility]) Diet type Restricted 03/29/23 1305 03/29/23 1300 Oral Nutrition Supplements ([facility]) Select Supplement: Ensure PLUS High Protein - Any Flavor; Quantity (# of cans): 1 can 3 times daily and at bedtime Question Answer Comment ([facility]) Select Supplement: Ensure PLUS High Protein - Any Flavor Quantity (# of cans): 1 can 03/29/23 0940 Allergies: Reviewed. IMPRESSION: Pt s/p PEG placement 03/29 Tube feed ordered and on hold for release when tube cleared for feeding use per IR Messaged nursing Order was released, took out and reordered Tube feeds may need to be adjusted per pt ability to take po Pt was on full liquid diet and drinking Ensure plus high protein last consuming 100% per I and O's prior to NPO see intervention below Labs noted Medications noted Wt Readings from Last 15 Encounters: 03/29/23 51.7 kg (113 lb 14.4 oz) ASPEN MALNUTRITION ASSESSMENT: Date of completion: 03/25/23 Pt with unintentional weight loss and inadequate energy intake ASPEN Malnutrition Assessment: ASPEN/AND Malnutrition Screening: Chronic illness or injury mild/moderate Chronic Illness/Injury Mild/Moderate Energy Intake: < 75% energy intake compared to estimated energy needs > (or equal to) 1 month Weight Loss: 20% in 12 months Body Fat: Mild/Moderate Muscle Mass: Mild/Moderate Patient Meets Criteria for Moderate Malnutrition: Yes Nutrition Focused Physical Exam: Subcutaneous Fat Loss Orbital Region - Surrounding the Eye: Somewhat hollow look, Slightly dark circles Cheek Region - Buccal Fat: Somewhat sunken appearance Muscle Loss [place] - Temporalis Muscle: Slight depression Clavicle Bone Region - Pectoralis Major, Deltoid, Trapezius Muscles: Protruding, prominent bone Posterior Calf Region - Gastrocnemius Muscle: Thin, minimal to no muscle definition ASPEN/AND Malnutrition Screening: Chronic illness or injury mild/moderate Energy Intake: < 75% energy intake compared to estimated energy needs > (or equal to) 1 month Weight Loss: 20% in 12 months Body Fat: Mild/Moderate Muscle Mass: Mild/Moderate Patient Meets Criteria for Moderate Malnutrition: Yes NUTRITION FOCUSED PHYSICAL EXAM: Completed. Subcutaneous Fat Loss Orbital Region - Surrounding the Eye: Somewhat hollow look, Slightly dark circles Cheek Region - Buccal Fat: Somewhat sunken appearance Muscle Loss [place] Region - Temporalis Muscle: Slight depression Clavicle Bone Region - Pectoralis Major, Deltoid, Trapezius Muscles: Protruding, prominent bone Posterior Calf Region - Gastrocnemius Muscle: Thin, minimal to no muscle definition NUTRITION DIAGNOSIS: Nutrition Diagnosis 1: Inadequate oral intake Related to: Oral pharyngeal, Chronic illness/injury Evidenced by: Weight loss, Need for full tube feeding INTERVENTION(S): Summary: Initial assessment, Enteral nutrition administration Monitor plan of care NUTRITION INITIATION Recommend Full liquid diet per speech recommendations when diet advanced and continue ensure plus high protein tid When PEG tube cleared for use recommend Enteral nutrition Bolus tube feeds Osmolite 1.5 @ 240mL/hr 4 x per day . Provides 1440 kcal (33 kcal/kg), 60 g protein (1.4 g/kg), 195g CHO, 47 g fat, and 731mL free water. begin at 60 ml/hr and increase by 60 ml q4hrs to goal of 240 ml then give 4 x day Minimum free water flush at 60 ml with each feeding 30 ml before and after If significant electrolyte abnormalities occur consider patient at significant risk and will provide additional recommendations. Continue VITAMIN RECOMMENDATIONS Thiamine: 100mg daily (PO / PT / IV) daily x 7 days Vitamin B6 (pyridoxine): 100mg (IV/PO/PT) x 5 days Folic Acid: 1mg (PO/PT) x 7 days MVI / Vitamin: 1 tablet (PO/PT) daily LAB / MONITORING RECOMMENDATIONS BMP, Magnesium, Phosphorus x 24 hours Monitor electrolytes (K+ > 3, Phos > 2, Mg >1.5) Weekly weight ELECTROLYTE REPLETION RECOMMENDATIONS Replete electrolytes as indicated In patients with hypokalemia and hypomagnesaemia, replete Magnesium first GOAL(S): Adequate nutrition to meet estimated needs by next assessment, Tolerance of enteral feeding at goalrate MONITORING/EVALUATION: TF tolerance, Labs, Electrolyte changes GHT BROKER * Rosalba Bailey, AMILCAR - 03/29/2023 10:39 AM CST Pulmonary Rehab 03/29/23 1038 Daily Visit Information Comment Home 02 assessment attempted, pt was asleep. This RT made several attempts to wake him withno success. VT to follow GHT BROKER * Erica Eil MD - 03/29/2023 7:01 AM CST Medicine Daily Progress Note Name: Aleksey Garcia Today: March 29, 2023 : 1960 Age: 63 y.o. male Admit: 03/23/2023 Bed: [id number] [facility] Daily Progress Subjective Mr. Garcia is a 63 y.o. male PMH HTN, active tobacco use, urinary retention, newly found L oropharyngeal mass, admitted 03/23/2023 2:31 PM for hemoptysis, hospital day 6. Interval History: PEG fell off ON. Glasgow inserted to keep track open. IR consulted for replacement.Desats ON to high 80s, O2 restarted. After returning, patient more drowsy. -Around 1130, patient fell on his side, hit the side of his head on the wall, and fell while tryingto get up to go to the bathroom. Patient denied GANDHI, dizziness, palpitations, LOC. Reported slippingon his feet. L ear laceration noted. Neuro exam with known L side facial restrictions 2/2 known mass, otherwise nonfocal. hCT negative. -RPP sent for intermittent O2 requirement, negative. -CXR pending -Na stable 132. Hgb stable 8.3 -K 5.1, lokelma started ON, Mg, Phos wnl -S/p bx w/ ENT on 03/25, prelim carcinoma, awaiting further pathology but likely will need chemo/XRT. Discussed recs w/ ENT as below Brief plan -S/p PEG replacement with IR possibly today -Keflex 500 BID x5 for PEG exchange (03/29-04/02) -F/u CXR -Resume liquid diet, Ensure, TF post procedure -Daily labs -F/u surgical path: pending -PET-CT per ENT- scheduled for 03/30 -ENT to organize OP follow up w/ Head and Neck Surgery, Medical Oncology, and Radiation Oncology -Patient would like to speak with SW regarding POA paperwork, also interested in short term disability and transportation to [facility] for treatment, will discuss these today with DM/SW Scheduled Meds PRN Meds Infusions escitalopram, 20 mg, oral, Daily folic acid, 1 mg, oral, Daily lisinopriL, 10 mg, oral, Daily multivitamin therapeutic, 1 tablet, oral, Daily nicotine, 1 patch, transdermal, Daily pyridoxine, 100 mg, oral, Daily sodium chloride 0.9%, 0.5-20 mL, intra-catheter, Q8H TJ sodium chloride 0.9%, 0.5-20 mL, intra-catheter, Q8H TJ sodium zirconium cyclosilicate, 10 g, oral, Once thiamine, 100 mg, oral, Daily acetaminophen, 650 mg, Q4H PRN sodium chloride 0.9%, 30 mL, PRN sodium chloride 0.9%, 30 mL, PRN lidocaine, 1 patch, Daily PRN nortriptyline, 30 mg, Nightly PRN ondansetron ODT, 4 mg, Q6H PRN Or ondansetron, 4 mg, Q6H PRN oxyCODONE, 5 mg, Q4H PRN polyethylene glycol, 17 g, Daily PRN ramelteon, 8 mg, Nightly PRN sodium chloride 0.9%, 0.5-20 mL, PRN sodium chloride 0.9%, 0.5-20 mL, PRN sodium chloride 0.9%, 30 mL/hr Objective Vitals: Most Recent : Vitals: 03/29/23434 BP: 121/60 Pulse: 78 Resp: 18 Temp: 37.3 ??C (99.1 ??F) SpO2: 91% 24hr Min/Max: Temp Min: 36.2 ??C (97.2 ??F) Max: 37.8 ??C (100 ??F) Pulse Min: 64 Max: 95 BP Min: 121/60 Max: 164/67 Resp Min: 9 Max: 18 SpO2 Min: 84 % Max: 100 % Most Recent: Vitals: 03/29/23434 BP: 121/60 Pulse: 78 Resp: 18 Temp: 37.3 ??C (99.1 ??F) SpO2: 91% I/O last 2 completed shifts: In: 30 [I.V.:30] Out: 200 [Urine:200] Intake/Output Summary (Last 24 hours) at 03/29/2023 0701 Last data filed at 03/29/2023 0452 Gross per 24 hour Intake 30 ml Output 200 ml Net -170 ml Net IO Since Admission: 1,550 mL [03/29/23 0701] Active Lines: Peripheral IV Right (Active) Peripheral IV 03/24/23 20 G Anterior;Proximal;Right Forearm (Active) Peripheral IV 03/27/23 20 G Anterior;Distal;Left Forearm (Active) Gastrostomy/Enterostomy Gastrostomy 16 Fr. LUQ (Active) NG/OG Tube Nasogastric 10 Fr Left nostril (Active) Physical exam: Constitutional: Cachetic, chronically ill appearing Eyes: EOMI grossly intact. Anicteric, sclera non-injected ENT: NCAT, neck supple, dry oral mucosa. Temporal wasting Lungs: CTAB, Breathing comfortably on RA. Cardiovascular: RRR, normal S1 and S2. GI: Soft, NT/ND Skin: No rashes, lesions, or bruises to exposed skin areas MSK/Extremities: Xiphoid bone visible. BLE non edematous, warm and well perfused Neuro: Alert, moving all extremities equally Lab/Diagnostic Review: Recent Results (from the past 36 hour(s)) Magnesium Collection Time: 03/27/23 8:18 PM Result Value Ref Range Magnesium 2.1 1.4 - 2.5 mg/dL Basic metabolic panel Collection Time: 03/27/23 8:18 PM Result Value Ref Range Sodium 131 (L) 135 - 145 mmol/L Potassium, pl 4.5 3.3 - 4.9 mmol/L Chloride 95 (L) 97 - 110 mmol/L CO2 32 22 - 32 mmol/L Anion gap 4 2 - 15 mmol/L BUN 22 6 - 25 mg/dL Creatinine 0.51 (L) 0.80 - 1.30 mg/dL Glucose 88 70 - 199 mg/dL Calcium 8.5 8.5 - 10.3 mg/dL Phosphorus Collection Time: 03/27/23 8:18 PM Result Value Ref Range Phosphorus, pl 3.0 2.3 - 4.5 mg/dL CBC without differential Collection Time: 03/27/23 8:18 PM Result Value Ref Range WBC 6.3 3.8 - 9.9 K/cumm Hgb 8.3 (L) 13.0 - 17.5 g/dL Hct 25.8 (L) 38.9 - 50.3 % Plt 300 150 - 400 K/cumm MPV 9.2 9.1 - 12.3 fL RBC 2.66 (L) 4.30 - 5.80 M/cumm MCV 97.0 (H) 81.3 - 96.4 fL MCH 31.2 27.1 - 33.3 pg MCHC 32.2 (L) 32.3 - 35.7 g/dL RDW CV 13.7 11.1 - 14.9 % RDW SD 48.2 (H) 35.7 - 48.1 fL NRBC abs 0.00 0.00 - 0.01 K/cumm Hepatic function panel Collection Time: 03/27/23 8:18 PM Result Value Ref Range Bilirubin, total <0.2 0.1 - 1.2 mg/dL Bilirubin, direct <0.2 0.1 - 0.3 mg/dL Protein, pl 6.3 (L) 6.5 - 8.5 g/dL Albumin 3.1 (L) 3.5 - 5.0 g/dL Alk phos 83 40 - 130 Units/L ALT 21 7 - 55 Units/L AST 38 10 - 50 Units/L eGFR Collection Time: 03/27/23 8:18 PM Result Value Ref Range eGFR >90 >=60 mL/min/1.73 m2 POCT glucose Collection Time: 03/28/23 11:51 AM Result Value Ref Range Glucose, POC 106 70 - 199 mg/dL POCT glucose Collection Time: 03/28/23 5:02 PM Result Value Ref Range Glucose, POC 131 70 - 199 mg/dL CBC without differential Collection Time: 03/28/23 7:53 PM Result Value Ref Range WBC 9.4 3.8 - 9.9 K/cumm Hgb 9.6 (L) 13.0 - 17.5 g/dL Hct 28.6 (L) 38.9 - 50.3 % Plt 361 150 - 400 K/cumm MPV 9.5 9.1 - 12.3 fL RBC 3.04 (L) 4.30 - 5.80 M/cumm MCV 94.1 81.3 - 96.4 fL MCH 31.6 27.1 - 33.3 pg MCHC 33.6 32.3 - 35.7 g/dL RDW CV 13.7 11.1 - 14.9 % RDW SD 47.0 35.7 - 48.1 fL NRBC abs 0.00 0.00 - 0.01 K/cumm Basic metabolic panel Collection Time: 03/28/23 7:53 PM Result Value Ref Range Sodium 132 (L) 135 - 145 mmol/L Potassium, pl 5.1 (H) 3.3 - 4.9 mmol/L Chloride 92 (L) 97 - 110 mmol/L CO2 33 (H) 22 - 32 mmol/L Anion gap 7 2 - 15 mmol/L BUN 20 6 - 25 mg/dL Creatinine 0.49 (L) 0.80 - 1.30 mg/dL Glucose 104 70 - 199 mg/dL Calcium 8.7 8.5 - 10.3 mg/dL Magnesium Collection Time: 03/28/23 7:53 PM Result Value Ref Range Magnesium 2.0 1.4 - 2.5 mg/dL Phosphorus Collection Time: 03/28/23 7:53 PM Result Value Ref Range Phosphorus, pl 3.6 2.3 - 4.5 mg/dL eGFR Collection Time: 03/28/23 7:53 PM Result Value Ref Range eGFR >90 >=60 mL/min/1.73 m2 I have reviewed the laboratory results. Imaging Results: IR G Tube Placement Percutaneous Narrative: EXAMINATION: PERCUTANEOUS BALLOON ASSISTED GASTROSTOMY CATHETER PLACEMENT INDICATION: History of oral mass with severe dysphagia requiring enteral nutrition. ATTENDING PRESENCE: Oriana Ambriz MD, PhD, the attending radiologist was present from the beginning to the end of the procedure. RESIDENT: Alek Tomlinson MD, PhD SEDATION: Procedural sedation was administered under the attending physician's direction and continuous monitoring by a trained nurse specialist who was independent from those actually performing the procedure. Total monitored sedation time was 24 minutes. TECHNIQUE: The risks, benefits and alternatives were discussed and informed consent was obtained. Prior to beginning the procedure, [place] Protocol was performed to confirm the patient's identity and the planned procedure. The fluoroscopy time has been recorded in the electronic medical record. Maximum sterile barriers including cap, mask, hand hygiene, sterile gloves, sterile gown, large sterile drape and 2% chlorhexidine for cutaneous antisepsis were used. A nasogastric (NG) tube was in place at the time of arrival . The abdomen was prepped and draped in sterile fashion. A mastercam programmer image of the abdomen was obtained. Glucagon 1mg IV was administered. Air was insufflated into the stomach through the NG tube. After administration of lidocaine for local anesthesia, 2 gastropexy anchors were placed into the stomach under fluoroscopic guidance. Contrast was administered through the delivery needle after aspiration of air to confirm placement before deployment of the anchors. An incision was made between the gastropexy anchors and 18-g single wall needle was passed into the stomach under fluoroscopic guidance. Contrast was injected to confirm appropriate needle tip position. A 0.035 Amplatz wire was then passed into the stomach. Over the wire, a Conquest 10 mm x 8 cm high-pressure angioplasty balloon preloaded with an 16Fr ERIC bolus gastrostomy tube was placed. The tract was dilated with the angioplasty balloon, allowing passage of the gastrostomy tube into the stomach. The balloon of the gastrostomy tube was inflated and pulled back against the stomach wall under fluoroscopic observation to assess positioning. The angioplasty balloon was removed over the wire. Contrast was then injected to confirm intragastric location with permanent fluoroscopic imaging obtained. The locking disc was secured and the stomach deflated. The gastropexy anchors were locked in position. ESTIMATED BLOOD LOSS: Minimal. CONDITION: Stable DISCHARGED TO: Patient care division. FINDINGS: 1. Preprocedure imaging demonstrates anatomy suitable for percutaneous gastrostomy placement. There is an indwelling NG tube with its tip in the stomach. 2. Successful placement of a 16fr ERIC bolus percutaneous gastrostomy tube. 3. Post-placement imaging demonstrates intra-gastric location. COMPLICATION: There were no immediate complications. The patient tolerated the procedure well. Technically successful image guided percutaneous gastrostomy placement as above. Impression: Successful placement of a 16 Ghanaian gastrostomy catheter with gastropexy. RECOMMENDATIONS: 1. The gastrostomy catheter will remain to gravity drainage overnight. It may be used for administration of liquid medications. The tube should be capped after administration of the medication for an hour and then reconnected to gravity drainage. The output should be recorded every shift. The patient will be examined in the morning prior to clearing the catheter for usage for tube feeds. Feedings will likely start in a day and be advanced to goal before discharge 2. The gastropexy anchors are composed of bioabsorbable suture and will release in 2-3 weeks. If they do not, they may be cut flush with the skin surface Dictated by: Alek Tomlinson MD, PHD The radiology attending physician has personally reviewed this study, and had reviewed and/or edited this written report and agrees with it. Electronically signed by: Oriana Ambriz MD Assessment/Plan Mr. Garcia is a 63 y.o. male PMH HTN, active tobacco use, urinary retention, and newly found L oropharyngeal mass, admitted 03/23/2023 2:31 PM for hemoptysis, hospital day 6. #L Oropharyngeal Mass c/f Malignancy #Hemoptysis/Acute Blood Loss Anemia Worsening oral bleeding for past month, dysphagia, worse w/ solids. Also with 40 lb wt loss over past year. Pt went to OSH 03/[address] neck showed large L oropharyngeal mass along base of tongue, floor of mouth, GTS, lingual mandible. Was d/c'd home with plan to f/u with [facility]NT. On 03/23 developed another episode of hemoptysis, reports ~1pint. BPs elevated, normocardic, on room air. Hgb 9.5 (03/21)->7.6 on admission. CTA H&N with large ulcerative L oropharyngeal neck mass 7.2x4.3x3.3cm highly suspicious for malignancy such as SCC involving L parapharyngeal, data operations manager, submandibular, sublingual spaces with ossesous involvement of L mandible; no e/o active extravasation. CXR with L he midiaphragm, mild L basilar reticular nodular opacities c/f atelectasis vs bronchiolitis related toaspiration. - Hgb>7, T&S, coags wnl - ENT following - s/p bx and Dobhoff placement 03/25 - Pending biopsy path, prelim carcinoma - PEG with IR 03/28, exchange due to PEG falling out on 03/29 - Keflex 500 BID x 5d (03/29-04/02) - PET-CT per ENT, scheduled for Tuesday, 03/30 - ENT to organize OP follow up w/ Head and Neck Surgery, Medical Oncology, and Radiation Oncology - 03/24 STUBBER MBS, rec FLD without purees, liquid/crushed meds - Document Control Specialist c/s for malnutrition: TF started, tolerating goal rate - Update order after PEG placement and confirmation with IR likely tomorrow. Continue liquid diet, ensure - Pain control: APAP, oxy PRN #Hyponatremia #SIADH Na 127 on admission. Unclear chronicity. Likely multifactorial hypotonic hypovolemic iso poor PO intake (which is now resolved) and mild SIADH due to malignancy. - Initial improvement to 133 after 1L IVF 03/24, now remaining around 131-133. - Repeat Serum osms 271, urine osms 479, Justin 139. Now volume replete. - d/c IVF now that patient's on TF and tolerating PO - CTM Na #Hyperkalemia- resolved K 5.2 on adm. Cr at baseline. Unclear etiology - Trending BMP, K now stable 4-4.4 #Respiratory Insuffiencey Occasional desaturations requiring 2L NC. Desats to high 80s 03/28-03/29 ON. Given extensive smoking and productive cough history, possible underlying COPD - 03/29 RPP negative - CXR #HTN BPs elevated 140-170s/60-80s. - Continue home lisinopril 10mg daily #Active TUD 30 pack yr hx. Smokes 0.5ppd (cut back from 1ppd). 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 Reports urinating without difficulty - Monitor UOP and I/Os -> low threshold to bladder scan #Mood - Continue home escitalopram 20mg daily DVT ppx: holding iso acute bleeding, ambulate TID Diet: FLD without purees, liquid/crushed meds Code: Full Erica Eli MD Cosigned by Logan Alvarado MD at 03/29/2023 1:39 PM FREIGHT BROKER GHT BROKER GHT BROKER Associated attestation - Logan Alvarado MD - 03/29/2023 1:39 PM FREIGHT BROKER Attending Documentation I have seen and examined the patient on 03/29/23. I agree with the findings and plan of care as documented in the resident's/fellow's note. Supplementary Attestation Today, I am treating the patient for oropharyngeal carcinoma which is in severe exacerbation, progression, or experiencing treatment side effects as evidenced by newly diagnosed, resulting in malnutrition, cachexia (temporal wasting, prominent ribs, sternum, xiphoid process), BMI <16, high risk for refeeding syndrome, as described in the note. Reviewed records from the following unique sources (external institutions or providers from different services): VIR. 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 Lft maxillary and sphenoid sinus opacification. Will check PET/CT. Logan Alvarado MD * Ofelia Santos, RD - 03/28/2023 4:18 PM CST NUTRITION ASSESSMENT Nutrition Status: Patient meets criteria for moderate chronic malnutrition, reference ASPEN guidelines. Present on Admission: Yes REASON FOR ASSESSMENT: Follow Up tube feeding assessment Encounter Date: 03/28/23 4:18 PM Admission Date: 03/23/2023 LOS: 5 days HPI: Patient is a 63 y.o. 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 Patient is somewhat a difficult historian in terms of timeline of events. He states that over the past year he's noticed a 40 lb weight loss and increasing difficulty with swallowing solids (okay with liquids), as well as a month of worsening N/V, and intermittent hemoptysis. on 03/21/23 where they found a large L oropharyngeal mass on CT neck. Six months ago he moved from [place] to [place], [place] where he lives with his daughter and niece's family. Patient denies , diarrhea, constipation, Objective History reviewed. No pertinent past medical history. Past Surgical History: Procedure Laterality Date APPENDECTOMY IR G TUBE PLACEMENT PERCUTANEOUS N/A 03/28/2023 TONSILLECTOMY Social History Tobacco Use Smoking status: Every Day Current packs/day: 1.50 Average packs/day: 1.5 packs/day for 44.1 years (66.2 ttl pk-yrs) Types: Cigarettes Start date: 02/1979 Passive exposure: Never Smokeless tobacco: Never Substance and Sexual Activity Drug use: None Sexual activity: None Alcohol Use: Not At Risk (03/25/2023) AUDIT-C Frequency of Alcohol Consumption: Monthly or less Average Number of Drinks: 1 or 2 Frequency of Binge Drinking: Never MEDICATION/LAB REVIEW: Scheduled Meds: escitalopram, 20 mg, oral, Daily folic acid, 1 mg, oral, Daily lisinopriL, 10 mg, oral, Daily multivitamin therapeutic, 1 tablet, oral, Daily nicotine, 1 patch, transdermal, Daily pyridoxine, 100 mg, oral, Daily sodium chloride 0.9%, 0.5-20 mL, intra-catheter, Q8H TJ sodium chloride 0.9%, 0.5-20 mL, intra-catheter, Q8H TJ thiamine, 100 mg, oral, Daily Continuous Infusions: sodium chloride 0.9%, 30 mL/hr PRN Meds: acetaminophen sodium chloride 0.9% sodium chloride 0.9% lidocaine nortriptyline ondansetron ODT OR ondansetron oxyCODONE polyethylene glycol ramelteon sodium chloride 0.9% sodium chloride 0.9% Recent Labs Lab Units 03/27/23201703/27/23 0911 03/26/232011 SODIUM mmol/L 131* 130* 131* POTASSIUM PLASMA mmol/L 4.5 4.0 4.5 CHLORIDE mmol/L 95* 94* 93* CO2 mmol/L 32 31 31 BUN SERUM mg/dL 22 18 23 CREATININE mg/dL 0.51* 0.57* 0.52* [id number] mL/min/1.73 m2 >90 >90 >90 CALCIUM mg/dL 8.5 8.3* 8.4* ALBUMIN g/dL 3.1* -- 3.0* PHOSPHORUS PLASMA mg/dL 3.0 3.1 3.3 MAGNESIUM mg/dL 2.1 2.0 1.9 Recent Labs Lab Units 03/28/23 1151 03/27/23201703/27/23 0911 03/27/23 0800 03/26/23201103/26/23 1729 03/26/23 0952 GLUCOSE mg/dL -- 88 127 -- 112 -- 158 POC GLUCOSE MONITOR mg/dL 106 -- -- 138 -- 104 -- ALT Date Value Ref Range Status 03/27/2023 21 7 - 55 Units/L Final AST Date Value Ref Range Status 03/27/2023 38 10 - 50 Units/L Final Alk phos Date Value Ref Range Status 03/27/2023 83 40 - 130 Units/L Final No results found for: HGBA1C , HDL , LDLCALC , CHOL , TRIG NURSING ASSESSMENT: Last BM Date: 03/22/23 Bowel Sounds (All Quadrants): Active Justin Scale Score: 19 Skin Integrity: Bruising Vital Signs BP: 130/60 Temp: 36.4 ??C (97.5 ??F) Pulse: 68 Resp: 16 SpO2: 98 % Intake/Output Summary (Last 24 hours) at 03/28/2023 1618 Last data filed at 03/27/2023 2110 Gross per 24 hour Intake 10 ml Output -- Net 10 ml Adult Malnutrition Scoring Tool (MST) What diet do you follow at home?: NO SOLIDS ONLY LIQUIDS Have You Recently Lost Weight Without Trying?: Yes (Comment) How Much Weight Have You Lost?: 34 lb or more Have you been eating poorly because of a decreased appetite?: Yes Malnutrition Screening Tool (MST) Score: 5 Hunger Screen - Admission Within the past 12 months the food we bought just didn't last and we didn't have money to get more.: Never true Within the past 12 months we worried whether our food would run out before we got money to buy more.: Never true Anthropometrics Weight: 43.1 kg (95 lb) Admission Weight : 43.1 kg Weight Change: 0.00 kg (0.00 lbs) IBW/kg (Calculated) : 61.7 kg Height: 165.1 cm (5' 5 ) Weight in (lb) to have BMI = 25: 149.9 BMI (Calculated): 15.8 Wt Readings from Last 10 Encounters: 03/23/23 43.1 kg (95 lb) ESTIMATED NEEDS: Total Kcal/kg Estimated Needs : 1723.68 Kcal/k. Type of Weight Used for Estimated Kcals: Current Total Protein Estimated Needs (gm): 74.04 Protein Needs Based on g/k.2 Type of Weight Used for Estimated Protein : Murray Dietary Orders (From admission, onward) Start Ordered 03/28/23 1035 Adult Diet Full Liquid, Restricted Diet effective now Comments: NO purees Medications: non-orally (or liquid form, crushed with liquid) Small bites, single sips, double/repeat swallows to clear Upright when eating Question Answer Comment ([facility]) Diet type Full Liquid ([facility]) Diet type Restricted 03/28/23 1034 03/26/23 1708 Diet, Tube Feeding With Tray Osmolite 1.5 Mana (begin at 10 ml/hr and increase by 10 ml q6hrs to goal of 40 ml/hr); 40; 24; 30; Every 4 hours Diet effective now Comments: Adjust free water flush per hydration status Minimum flush 30 ml q4hrs to keep tube patent Follow aspiration precautions Monitor electrolytes replete as indicated Question Answer Comment ([facility]) Tube Feeding Formula: Osmolite 1.5 Mana begin at 10 ml/hr and increase by 10 ml q6hrs to goal of 40 ml/hr Tube Feeding Continuous (mL/hr): 40 Duration (hr): 24 Tube Feeding Flush (mL): 30 Flush Frequency: Every 4 hours 03/26/23 1708 03/26/23 1300 Oral Nutrition Supplements ([facility]) Select Supplement: Ensure PLUS High Protein - Any Flavor; Quantity (# of cans): 1 can 3 times daily and at bedtime Question Answer Comment ([facility]) Select Supplement: Ensure PLUS High Protein - Any Flavor Quantity (# of cans): 1 can 03/26/23 0822 Allergies: Reviewed. IMPRESSION: Pt s/p PEG placement When tube cleared for use recommend starting bolus feeds order placed on hold for release Tube feeds may need to be adjusted per pt ability to take po Pt was on full liquid diet and drinking Ensure plus high protein last consuming 100% per I and O's prior to NPO see intervention below Labs noted Medications noted Wt Readings from Last 15 Encounters: 03/23/23 43.1 kg (95 lb) ASPEN MALNUTRITION ASSESSMENT: Date of completion: 03/25/23 Pt with unintentional weight loss and inadequate energy intake ASPEN Malnutrition Assessment: ASPEN/AND Malnutrition Screening: Chronic illness or injury mild/moderate Chronic Illness/Injury Mild/Moderate Energy Intake: < 75% energy intake compared to estimated energy needs > (or equal to) 1 month Weight Loss: 20% in 12 months Body Fat: Mild/Moderate Muscle Mass: Mild/Moderate Patient Meets Criteria for Moderate Malnutrition: Yes Nutrition Focused Physical Exam: Subcutaneous Fat Loss Orbital Region - Surrounding the Eye: Somewhat hollow look, Slightly dark circles Cheek Region - Buccal Fat: Somewhat sunken appearance Muscle Loss [place] - Temporalis Muscle: Slight depression Clavicle Bone Region - Pectoralis Major, Deltoid, Trapezius Muscles: Protruding, prominent bone Posterior Calf Region - Gastrocnemius Muscle: Thin, minimal to no muscle definition ASPEN/AND Malnutrition Screening: Chronic illness or injury mild/moderate Energy Intake: < 75% energy intake compared to estimated energy needs > (or equal to) 1 month Weight Loss: 20% in 12 months Body Fat: Mild/Moderate Muscle Mass: Mild/Moderate Patient Meets Criteria for Moderate Malnutrition: Yes NUTRITION FOCUSED PHYSICAL EXAM: Completed. Subcutaneous Fat Loss Orbital Region - Surrounding the Eye: Somewhat hollow look, Slightly dark circles Cheek Region - Buccal Fat: Somewhat sunken appearance Muscle Loss [place] - Temporalis Muscle: Slight depression Clavicle Bone Region - Pectoralis Major, Deltoid, Trapezius Muscles: Protruding, prominent bone Posterior Calf Region - Gastrocnemius Muscle: Thin, minimal to no muscle definition NUTRITION DIAGNOSIS: Nutrition Diagnosis 1: Inadequate oral intake Related to: Oral pharyngeal, Chronic illness/injury Evidenced by: Weight loss, Need for full tube feeding INTERVENTION(S): Summary: Initial assessment, Enteral nutrition administration Monitor plan of care NUTRITION INITIATION Recommend Full liquid diet per speech recommendations when diet advanced and continue ensure plus high protein tid When PEG tube cleared for use recommend Enteral nutrition Bolus tube feeds Osmolite 1.5 @ 240mL/hr 4 x per day . Provides 1440 kcal (33 kcal/kg), 60 g protein (1.4 g/kg), 195g CHO, 47 g fat, and 731mL free water. begin at 60 ml/hr and increase by 60 ml q4hrs to goal of 240 ml then give 4 x day Minimum free water flush at 60 ml with each feeding 30 ml before and after If significant electrolyte abnormalities occur consider patient at significant risk and will provide additional recommendations. Continue VITAMIN RECOMMENDATIONS Thiamine: 100mg daily (PO / PT / IV) daily x 7 days Vitamin B6 (pyridoxine): 100mg (IV/PO/PT) x 5 days Folic Acid: 1mg (PO/PT) x 7 days MVI / Vitamin: 1 tablet (PO/PT) daily LAB / MONITORING RECOMMENDATIONS BMP, Magnesium, Phosphorus x 24 hours Monitor electrolytes (K+ > 3, Phos > 2, Mg >1.5) Weekly weight ELECTROLYTE REPLETION RECOMMENDATIONS Replete electrolytes as indicated In patients with hypokalemia and hypomagnesaemia, replete Magnesium first GOAL(S): Adequate nutrition to meet estimated needs by next assessment, Tolerance of enteral feeding at goalrate MONITORING/EVALUATION: TF tolerance, Labs, Electrolyte changes GHT BROKER * Libia Kwan OT - 03/28/2023 1:27 PM CST Occupational Therapy Occupational Therapy Progress Note NOTE: This is a summary note of the zelaya components of the treatment session. For full details, review chart for all flowsheets documented on by this occupational therapy clinician on this date. Vitalsigns documented in vital signs flowsheet. Care plan progress documented in Care Plan Activity. For questions, please review the treatment team and contact the occupational therapist currently assigned to this patient. If an occupational therapist is not assigned to this patient, please call [phone]. 03/28/23 1323 General Session Type Treatment OT Received On 03/28/23 Safe Environment Arm band checked;Patient found in supine;Gait belt utilized for all out of bed mobility Subjective Agreeable to Therapy Family/Caregiver Present No Precautions Precautions Fall risk Pain Assessment Pain Assessment 0-10 Pain Score 8 Pain Location Abdomen (g-tube location) Pain Interventions RN Notified (ANGELITA Schumacher) Balance Balance Yes Static Sitting Balance Static Sitting-Balance Support No upper extremity supported;Feet supported Static Sitting-Sitting Surface Bed Static Sitting-Level of Assistance Independent Dynamic Sitting Balance Dynamic Sitting-Balance Support No upper extremity supported;Feet supported Dynamic Sitting-Balance Lateral lean;Forward lean;Reaching for objects Dynamic Sitting-Sitting Surface Bed Dynamic Sitting-Level of Assistance Distant supervision Dynamic Sitting-Comments safety Static Standing Balance Static Standing-Balance Support No upper extremity supported Static Standing-Standing Surface Floor Static Standing-Level of Assistance Distant supervision Static Standing-Comment/# of Minutes safety Dynamic Standing Balance Dynamic Standing-Balance Support No upper extremity supported;Unilateral upper extremity supported Dynamic Standing-Balance Lateral lean;Forward lean;Reaching for objects Dynamic Standing-Standing Surface Floor Dynamic Standing-Level of Assistance Close supervision Dynamic Standing-Comments safety ADL ADLS (WDL) X Grooming Grooming: Where assessed (Pt declined grooming on this date) LE Dressing LE Dressing: Where assessed Sitting;Standing LE Dressing: Level of assistance Standby Assist LE Dressing: Assistance with Safety Room Mobility Room Mobility: Where assessed within pt's room and in hallway Room Mobility: Level of Assistance Contact Guard Assist Room Mobility comment safety Bed Mobility Bed Mobility Yes Bed Mobility 1 Bed Mobility From 1 Edge of bed Bed Mobility Type 1 To Bed Mobility to 1 Supine (HOB elevated) Level of Assistance 1 Standby Assist Bed Mobility Comments 1 safety Transfers Transfer Yes Transfer 1 Transfer From 1 Sit Transfer Type 1 To and from Transfer to 1 Stand Technique 1 Sit to stand;Stand to sit Transfer Device 1 No device Transfer Level of Assistance 1 Standby Assist Trials/Comments 1 safety Toilet Transfers Toilet Transfer From (hallway to toilet to bed) Toilet Transfer Technique Ambulating Toilet Transfer: Equipment Hand hold;Grab bar Toilet Transfers Minimal assistance Toilet Transfers Comments SBA for safety in stand/sit. CGA for balance and safety in ambulation. Min A for force production in sit/stand 2/2 low toilet height Cognition Arousal/Alertness Alert;Appropriate responses to stimuli Attention Span Appears intact Current communication Appears Intact Orientation Oriented X4 (person, place, time, situation) Following Commands Follows all commands and directions without difficulty Safety Judgment Good awareness of safety precautions Awareness of Errors Assistance required to identify errors made;Assistance required to correct errors made Insight Fully aware of deficits Problem Solving Assistance required to identify errors made;Assistance required to generate solutions Compliance/Behavior Easy to engage Daily Activity - 6 Clicks Putting on and taking off regular lower body clothing 3 Bathing 2 Toileting 3 Putting on and taking off upper body clothing 3 Personal Grooming 3 Eating Meals 4 Total Score (range 6-24) 18 Score Interpretation 38.66 Safe Environment End of Therapy Session Safe Environment End of Therapy Session Patient left supine in bed;Call light within reach;Overbed table within reach (HOB elevated) Assessment Problem List Decreased endurance;Decreased balance;Decreased functional mobility;Decreased ADL independence;Decreased IADL independence;Pain Barriers to Discharge Current Mobility Status;Current ADL Status Barrier Comments fall risk Plan Plan Alter current plan;If this is the last note, consider this the discharge summary Plan Comments change in OT recommendation Recommendation/Plan OT Recommendation Home with family;Home with 24 hour supervision;Home Health OT Patient at high risk for Falls;Injury due to decreased ability to care for self;Injury due to reduced functional status;Injury due to balance deficits;Injury at home as patient has not returned to prior level of function OT Frequency during current admission 2-3x/wk Treatment/Interventions during current admission ADL/IADL retraining;Balance Training;Bed mobility;Endurance training;Functional activity;Functional mobility training;Functional transfer training;Strengthening;Therapeutic activity;Therapeutic exercise;Transfer training Progress during current admission Progressing toward goals OT - Next Appointment 03/30/23 Multi-Disciplinary Problems (from Occupational Therapy) Active Problems Problem: Dressings Lower Extremities Start Date: 03/24/23 Goal Start Date Expected End Date End Date STG - Patient will complete lower body dressing with SBA 03/24/23 04/07/23 -- Problem: Grooming Start Date: 03/24/23 Goal Start Date Expected End Date End Date STG - Patient will complete grooming with dist spv 03/24/23 04/07/23 -- Problem: Transfers Start Date: 03/24/23 Goal Start Date Expected End Date End Date STG - Patient will perform toilet transfer with SBA with AD PRN 03/24/23 04/07/23 -- Problem: OT Misc Start Date: 03/24/23 Goal Start Date Expected End Date End Date OT LTG - Pt will complete ADL routine and related transfers with mod I 03/24/23 04/21/23 -- GHT BROKER * Roland Villavicencio MD - 03/28/2023 9:03 AM CST Otolaryngology - Head & Neck Surgery Daily Progress Subjective Chief complaint: Chief Complaint Patient presents with Cyst 63M with newly detected oropharyngeal mass transferred from OSH for oral cavity bleeding. Received 1u pRBC. Currently hemostatic. Hgb drop 2 points at OSH - 7.9 here, receiving 1u pRBC. Hemostatic, no distress. 12m hemoptysis with eating; 60-lb weight loss, dysphagia to solids, stable for past couple of months on protein shakes; mild trismus over past 2 months Interval History: - AF, int HTN to SBP 170s, o/w VSS on RA. - WBC 7.2 (4.8), Hgb 9 (8.1) - Breathing comfortably, no acute distress. No oral bleeding. Objective VITALS, 24HR MIN/MAX: Temp Min: 36.5 ??C (97.7 ??F) Max: 37 ??C (98.6 ??F) Pulse Min: 68 Max: 78 BP Min: 127/61 Max: 164/67 Resp Min: 9 Max: 18 SpO2 Min: 90 % Max: 100 % I&O I/O last 2 completed shifts: In: 820 [P.O.:720; I.V.:10; NG/GT:90] Out: 500 [Urine:500] Net IO Since Admission: 1,720 mL [03/28/23 0903] Output by Drain (mL) 03/26/23 07 - 03/26/23185803/26/231899 - 03/27/23 0659 03/27/23 07 - 03/27/23 18503/27/23 190 - 03/28/23 0659 03/28/23 07 - 03/28/23 0903 Requested LDAs do not have output data documented. Scheduled Continuous As needed escitalopram, 20 mg, oral, Daily folic acid, 1 mg, oral, Daily lisinopriL, 10 mg, oral, Daily multivitamin therapeutic, 1 tablet, oral, Daily nicotine, 1 patch, transdermal, Daily pyridoxine, 100 mg, oral, Daily sodium chloride 0.9%, 0.5-20 mL, intra-catheter, Q8H TJ sodium chloride 0.9%, 0.5-20 mL, intra-catheter, Q8H TJ thiamine, 100 mg, oral, Daily sodium chloride 0.9%, 30 mL/hr acetaminophen, 650 mg, 650 mg at 03/27/23 1356 sodium chloride 0.9%, 30 mL sodium chloride 0.9%, 30 mL lidocaine, 1 patch nortriptyline, 30 mg ondansetron ODT, 4 mg OR ondansetron, 4 mg oxyCODONE, 5 mg, 5 mg at 03/28/23 0713 polyethylene glycol, 17 g ramelteon, 8 mg, 8 mg at 03/26/23 1959 sodium chloride 0.9%, 0.5-20 mL, 10 mL at 03/28/23 0512 sodium chloride 0.9%, 0.5-20 mL Physical Exam: Vitals: 03/28/23 0830 03/28/23 0840 03/28/23 0850 03/28/23 0900 BP: 164/67 137/60 131/67 128/57 BP Location: Left arm Patient Position: Lying Pulse: 73 69 71 68 Resp: 12 12 Temp: TempSrc: SpO2: 98% 100% 90% 92% Weight: Height: General: awake, NAD. Head and Face: NC, AT. Face symmetric. Eyes: Sclera white, no injection or chemosis, no periorbital edema Ears: Normal external ears. No drainage Nose: Dorsum midline, no drainage Mouth: Trismus, no vision lesions in oral cavity, tongue is deviated by left base of tongue mass, no OC/OP bleeding, MMM, tolerating secretions Neck: Soft and flat CV: Extremities warm and well-perfused Pulm: Normal quiet breathing. No respiratory distress, stridor, or wheeze. Neuro: Regards, follows commands. AOx3. CN grossly intact; moving all extremities Lab/Radiology/Diagnostic Review: LABS 24 HOURS: Lab Results Component Value Date WBC 6.3 03/27/2023 HGB 8.3 (L) 03/27/2023 HCT 25.8 (L) 03/27/2023 LABPLAT 300 03/27/2023 ALT 21 03/27/2023 AST 38 03/27/2023 SODIUM 131 (L) 03/27/2023 POTASSIUM 4.5 03/27/2023 CHLORIDE 95 (L) 03/27/2023 BUNSER 22 03/27/2023 CO2 32 03/27/2023 CREATININE 0.51 (L) 03/27/2023 GLUCOSE 88 03/27/2023 CALCIUM 8.5 03/27/2023 PHOS 3.0 03/27/2023 MAGNESIUM 2.1 03/27/2023 PT 11.8 03/23/2023 INR 1.04 03/23/2023 No results found for: MICROBIOLOGY , DIRECTEXAM XR Abdomen Ap 1 Vw Narrative: EXAMINATION: Abdomen, one view. HISTORY: Dobbhoff placement COMPARISON: None Impression: A single view of the abdomen is submitted for evaluation. Feeding tube with tip projecting over the gastric fundus. The stylette remains in place. Contrast in the proximal colon. No evidence of bowel obstruction in the imaged portion of the abdomen and pelvis. Vascular calcifications are present. The Non Critical results regarding Dobbhoff tube positioning were discussed with Dr. Villavicencio by Dr. Stone on 03/25/2023 at 6:56 PM Dictated by: Omar Stone M.D. The radiology attending physician has personally reviewed this study, and had reviewed and/or edited this written report and agrees with it. Electronically signed by: Shelli Ambriz M.D. Assessment/Plan Principal Problem: Oral mass Active Problems: Moderate malnutrition (CMS/HCC) Assessment: 63 y.o. male with oral cavity bleeding requiring transfusions in the setting of recently diagnosed left oropharyngeal mass. Scope and physical exam negative for source of bleeding. The mass is submucosal and hypomobile to the tongue musculature. We discussed that the next steps of his workup include tissue biopsy and additional imaging with a PET-CT. We deferred bedside biopsy due to trismus, decreased tongue mobility, and concern for hemostasis in setting of recent bleeding. CTA without evidence of active extravasation. Frozen sections indicating carcinoma. Plan: - Follow up final pathology - PET/CT inpatient - Dobhoff tube in place and able to be used. [facility] enteral access I.e. G tube per primary team - Possible presentation at tumor board - Will plan for outpatient follow up with Head and Neck Surgery, Medical Oncology, and Radiation Oncology Roland Villavicencio MD Otolaryngology - Head & Neck Surgery QUESTIONS: Weekdays daytime: [facility] Otolaryngology [facility] Consult New consults, after-hours & weekends: [facility] Otolaryngology [facility] Resident Primary/Night Float ENT scheduling line: [phone] (please include in discharge paperwork as needed) Cosigned by Rigoberto Sharma MD at 03/28/2023 7:51 PM FREIGHT BROKER GHT BROKER GHT BROKER * Erica Eli MD - 03/28/2023 6:57 AM CST Medicine Daily Progress Note Name: Aleksey Garcia Today: March 28, 2023 : 1960 Age: 63 y.o. male Admit: 03/23/2023 Bed: [id number] [facility] Daily Progress Subjective Mr. Garcia is a 63 y.o. 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 Interval History: NAEON. VSS -NPO since MN for PEG with IR today -Na stable 131. Hgb stable 8.3 -K, Mg, Phos wnl -S/p bx w/ ENT on 03/25, prelim carcinoma, awaiting further pathology but likely will need chemo/XRT. Discussed recs w/ ENT as below Brief plan -PEG with IR today -Resume liquid diet, Ensure, TF -Daily labs -F/u surgical path: pending -PET-CT per ENT- scheduled for 03/30 -ENT to organize OP follow up w/ Head and Neck Surgery, Medical Oncology, and Radiation Oncology -Patient would like to speak with SW regarding POA paperwork, also interested in short term disability and transportation to [facility] for treatment, will discuss these today with DM/SW Scheduled Meds PRN Meds Infusions escitalopram, 20 mg, oral, Daily folic acid, 1 mg, oral, Daily lisinopriL, 10 mg, oral, Daily multivitamin therapeutic, 1 tablet, oral, Daily nicotine, 1 patch, transdermal, Daily pyridoxine, 100 mg, oral, Daily sodium chloride 0.9%, 0.5-20 mL, intra-catheter, Q8H TJ thiamine, 100 mg, oral, Daily acetaminophen, 650 mg, Q4H PRN sodium chloride 0.9%, 30 mL, PRN lidocaine, 1 patch, Daily PRN nortriptyline, 30 mg, Nightly PRN ondansetron ODT, 4 mg, Q6H PRN Or ondansetron, 4 mg, Q6H PRN oxyCODONE, 5 mg, Q4H PRN polyethylene glycol, 17 g, Daily PRN ramelteon, 8 mg, Nightly PRN sodium chloride 0.9%, 0.5-20 mL, PRN Objective Vitals: Most Recent : Vitals: 03/28/23 0501 BP: 140/67 Pulse: 78 Resp: 16 Temp: 36.9 ??C (98.4 ??F) SpO2: 95% 24hr Min/Max: Temp Min: 36.5 ??C (97.7 ??F) Max: 37 ??C (98.6 ??F) Pulse Min: 73 Max: 78 BP Min: 127/61 Max: 140/67 Resp Min: 16 Max: 18 SpO2 Min: 95 % Max: 97 % Most Recent: Vitals: 03/28/23 0501 BP: 140/67 Pulse: 78 Resp: 16 Temp: 36.9 ??C (98.4 ??F) SpO2: 95% I/O last 2 completed shifts: In: 1190 [P.O.:920; NG/GT:270] Out: 700 [Urine:700] Intake/Output Summary (Last 24 hours) at 03/28/2023 06 Last data filed at 03/27/2023 2110 Gross per 24 hour Intake 820 ml Output 500 ml Net 320 ml Net IO Since Admission: 1,720 mL [03/28/23656] Active Lines: Peripheral IV Right (Active) Peripheral IV 03/24/23 20 G Anterior;Proximal;Right Forearm (Active) Peripheral IV 03/27/23 20 G Anterior;Distal;Left Forearm (Active) NG/OG Tube Nasogastric 10 Fr Left nostril (Active) Physical exam: Constitutional: Cachetic, chronically ill appearing Eyes: EOMI grossly intact. Anicteric, sclera non-injected ENT: NCAT, neck supple, dry oral mucosa, NGT in place Lungs: CTAB, Breathing comfortably on RA. Cardiovascular: RRR, normal S1 and S2. GI: Soft, NT/ND Skin: No rashes, lesions, or bruises to exposed skin areas MSK/Extremities: BLE non edematous, warm and well perfused Neuro: Alert, moving all extremities equally Lab/Diagnostic Review: Recent Results (from the past 36 hour(s)) Magnesium Collection Time: 03/26/23 8:12 PM Result Value Ref Range Magnesium 1.9 1.4 - 2.5 mg/dL Basic metabolic panel Collection Time: 03/26/23 8:12 PM Result Value Ref Range Sodium 131 (L) 135 - 145 mmol/L Potassium, pl 4.5 3.3 - 4.9 mmol/L Chloride 93 (L) 97 - 110 mmol/L CO2 31 22 - 32 mmol/L Anion gap 7 2 - 15 mmol/L BUN 23 6 - 25 mg/dL Creatinine 0.52 (L) 0.80 - 1.30 mg/dL Glucose 112 70 - 199 mg/dL Calcium 8.4 (L) 8.5 - 10.3 mg/dL Phosphorus Collection Time: 03/26/23 8:12 PM Result Value Ref Range Phosphorus, pl 3.3 2.3 - 4.5 mg/dL Type and screen Collection Time: 03/26/23 8:12 PM Result Value Ref Range ABO Rh A Positive Tam, indirect Negative CBC without differential Collection Time: 03/26/23 8:12 PM Result Value Ref Range WBC 8.8 3.8 - 9.9 K/cumm Hgb 8.0 (L) 13.0 - 17.5 g/dL Hct 24.1 (L) 38.9 - 50.3 % Plt 280 150 - 400 K/cumm MPV 9.0 (L) 9.1 - 12.3 fL RBC 2.54 (L) 4.30 - 5.80 M/cumm MCV 94.9 81.3 - 96.4 fL MCH 31.5 27.1 - 33.3 pg MCHC 33.2 32.3 - 35.7 g/dL RDW CV 13.5 11.1 - 14.9 % RDW SD 46.0 35.7 - 48.1 fL NRBC abs 0.00 0.00 - 0.01 K/cumm Hepatic function panel Collection Time: 03/26/23 8:12 PM Result Value Ref Range Bilirubin, total <0.2 0.1 - 1.2 mg/dL Bilirubin, direct <0.2 0.1 - 0.3 mg/dL Protein, pl 5.8 (L) 6.5 - 8.5 g/dL Albumin 3.0 (L) 3.5 - 5.0 g/dL Alk phos 74 40 - 130 Units/L ALT 19 7 - 55 Units/L AST 40 10 - 50 Units/L eGFR Collection Time: 03/26/23 8:12 PM Result Value Ref Range eGFR >90 >=60 mL/min/1.73 m2 Hemoglobin and hematocrit Collection Time: 03/27/23 5:51 AM Result Value Ref Range Hgb 7.9 (L) 13.0 - 17.5 g/dL Hct 23.4 (L) 38.9 - 50.3 % POCT glucose Collection Time: 03/27/23 8:00 AM Result Value Ref Range Glucose, POC 138 70 - 199 mg/dL Hemoglobin and hematocrit Collection Time: 03/27/23 9:11 AM Result Value Ref Range Hgb 8.3 (L) 13.0 - 17.5 g/dL Hct 25.9 (L) 38.9 - 50.3 % Magnesium Collection Time: 03/27/23 9:11 AM Result Value Ref Range Magnesium 2.0 1.4 - 2.5 mg/dL Basic metabolic panel Collection Time: 03/27/23 9:11 AM Result Value Ref Range Sodium 130 (L) 135 - 145 mmol/L Potassium, pl 4.0 3.3 - 4.9 mmol/L Chloride 94 (L) 97 - 110 mmol/L CO2 31 22 - 32 mmol/L Anion gap 5 2 - 15 mmol/L BUN 18 6 - 25 mg/dL Creatinine 0.57 (L) 0.80 - 1.30 mg/dL Glucose 127 70 - 199 mg/dL Calcium 8.3 (L) 8.5 - 10.3 mg/dL Phosphorus Collection Time: 03/27/23 9:11 AM Result Value Ref Range Phosphorus, pl 3.1 2.3 - 4.5 mg/dL eGFR Collection Time: 03/27/23 9:11 AM Result Value Ref Range eGFR >90 >=60 mL/min/1.73 m2 Magnesium Collection Time: 03/27/23 8:18 PM Result Value Ref Range Magnesium 2.1 1.4 - 2.5 mg/dL Basic metabolic panel Collection Time: 03/27/23 8:18 PM Result Value Ref Range Sodium 131 (L) 135 - 145 mmol/L Potassium, pl 4.5 3.3 - 4.9 mmol/L Chloride 95 (L) 97 - 110 mmol/L CO2 32 22 - 32 mmol/L Anion gap 4 2 - 15 mmol/L BUN 22 6 - 25 mg/dL Creatinine 0.51 (L) 0.80 - 1.30 mg/dL Glucose 88 70 - 199 mg/dL Calcium 8.5 8.5 - 10.3 mg/dL Phosphorus Collection Time: 03/27/23 8:18 PM Result Value Ref Range Phosphorus, pl 3.0 2.3 - 4.5 mg/dL CBC without differential Collection Time: 03/27/23 8:18 PM Result Value Ref Range WBC 6.3 3.8 - 9.9 K/cumm Hgb 8.3 (L) 13.0 - 17.5 g/dL Hct 25.8 (L) 38.9 - 50.3 % Plt 300 150 - 400 K/cumm MPV 9.2 9.1 - 12.3 fL RBC 2.66 (L) 4.30 - 5.80 M/cumm MCV 97.0 (H) 81.3 - 96.4 fL MCH 31.2 27.1 - 33.3 pg MCHC 32.2 (L) 32.3 - 35.7 g/dL RDW CV 13.7 11.1 - 14.9 % RDW SD 48.2 (H) 35.7 - 48.1 fL NRBC abs 0.00 0.00 - 0.01 K/cumm Hepatic function panel Collection Time: 03/27/23 8:18 PM Result Value Ref Range Bilirubin, total <0.2 0.1 - 1.2 mg/dL Bilirubin, direct <0.2 0.1 - 0.3 mg/dL Protein, pl 6.3 (L) 6.5 - 8.5 g/dL Albumin 3.1 (L) 3.5 - 5.0 g/dL Alk phos 83 40 - 130 Units/L ALT 21 7 - 55 Units/L AST 38 10 - 50 Units/L eGFR Collection Time: 03/27/23 8:18 PM Result Value Ref Range eGFR >90 >=60 mL/min/1.73 m2 I have reviewed the laboratory results. Imaging Results: XR Abdomen Ap 1 Vw Narrative: EXAMINATION: Abdomen, one view. HISTORY: Dobbhoff placement COMPARISON: None Impression: A single view of the abdomen is submitted for evaluation. Feeding tube with tip projecting over the gastric fundus. The stylette remains in place. Contrast in the proximal colon. No evidence of bowel obstruction in the imaged portion of the abdomen and pelvis. Vascular calcifications are present. The Non Critical results regarding Dobbhoff tube positioning were discussed with Dr. Villavicencio by Dr. Stone on 03/25/2023 at 6:56 PM Dictated by: Omar Stone M.D. The radiology attending physician has personally reviewed this study, and had reviewed and/or edited this written report and agrees with it. Electronically signed by: Shelli Ambriz M.D. Assessment/Plan Mr. Garcia is a 63 y.o. male PMH HTN, active tobacco use, urinary retention, and newly found L oropharyngeal mass, admitted 03/23/2023 2:31 PM for hemoptysis, hospital day 5. #L Oropharyngeal Mass c/f Malignancy #Hemoptysis/Acute Blood Loss Anemia Worsening oral bleeding for past month, dysphagia, worse w/ solids. Also with 40 lb wt loss over past year. Pt went to OSH 03/[address] neck showed large L oropharyngeal mass along base of tongue, floor of mouth, GTS, lingual mandible. Was d/c'd home with plan to f/u with [facility]. On 03/23 developed another episode of hemoptysis, reports ~1pint. BPs elevated, normocardic, on room air. Hgb 9.5 (03/21)->7.6 on admission. CTA H&N with large ulcerative L oropharyngeal neck mass 7.2x4.3x3.3cm highly suspicious for malignancy such as SCC involving L parapharyngeal, data operations manager, submandibular, sublingual spaces with ossesous involvement of L mandible; no e/o active extravasation. CXR with L he midiaphragm, mild L basilar reticular nodular opacities c/f atelectasis vs bronchiolitis related toaspiration. - Hgb>7, T&S, coags wnl - ENT following - s/p bx and Dobhoff placement 03/25 - Pending biopsy path, prelim carcinoma - PEG with IR today - PET-CT per ENT, scheduled for Tuesday, 03/30 - ENT to organize OP follow up w/ Head and Neck Surgery, Medical Oncology, and Radiation Oncology - 03/24 STUBBER MBS, rec FLD without purees, liquid/crushed meds - Document Control Specialist c/s for malnutrition: TF started, tolerating goal rate - Update order after PEG placement and confirmation with IR likely tomorrow. Continue liquid diet, ensure, TF via NGT in the meantime - Pain control: APAP, oxy PRN #Hyponatremia #SIADH Na 127 on admission. Unclear chronicity. Likely multifactorial hypotonic hypovolemic iso poor PO intake (which is now resolved) and mild SIADH due to malignancy. - Initial improvement to 133 after 1L IVF 03/24, now remaining around 131-133. - Repeat Serum osms 271, urine osms 479, Justin 139. Now volume replete. - d/c IVF now that patient's on TF and tolerating PO - CTM Na #Hyperkalemia- resolved K 5.2 on adm. Cr at baseline. Unclear etiology - Trending BMP, K now stable 4-4.4 #HTN BPs elevated 140-170s/60-80s. - Continue home lisinopril 10mg daily #Active TUD 30 pack yr hx. Smokes 0.5ppd (cut back from 1ppd). 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 Reports urinating without difficulty - Monitor UOP and I/Os -> low threshold to bladder scan #Mood - Continue home escitalopram 20mg daily DVT ppx: holding iso acute bleeding, ambulate TID Diet: FLD without purees, liquid/crushed meds Code: Full Erica Eli MD Cosigned by Logan Alvarado MD at 03/28/2023 2:05 PM FREIGHT BROKER GHT BROKER GHT BROKER Associated attestation - Logan Alvarado MD - 03/28/2023 2:05 PM FREIGHT BROKER Attending Documentation I have seen and examined the patient on 03/28/23. I agree with the findings and plan of care as documented in the resident's/fellow's note. Supplementary Attestation Today, I am treating the patient for oropharyngeal carcinoma which is in severe exacerbation, progression, or experiencing treatment side effects as evidenced by newly diagnosed, resulting in malnutrition, BMI <16, at risk for refeeding syndrome, requiring PEG placement, as described in the note. Reviewed records from the following unique sources (external institutions or providers from different services): VIR, ENT. Independently interpreted BMP which shows Na 131, which is low. Will check CBC, BMP. Awaiting finalpath. Logan Alvarado MD * Erica Eli MD - 03/27/2023 7:00 AM CST Medicine Daily Progress Note Name: Aleksey Garcia Today: March 27, 2023 : 1960 Age: 63 y.o. male Admit: 03/23/2023 Bed: [id number] [facility] Daily Progress Subjective Mr. Garcia is a 63 y.o. male PMH HTN, active tobacco use, urinary retention, newly found L oropharyngeal mass, admitted 03/23/2023 2:31 PM for hemoptysis, hospital day 4. Interval History: NAEON. VSS, hypertensive in PM, normotensive ON. Endorses persistent GANDHI, controlled on oxycodone. NG tube is uncomfortable and wants to get it out. -Na stable 131. Hgb 9.0->8.0 -TF started -S/p bx w/ ENT yesterday, prelim carcinoma, awaiting further pathology but likely will need chemo/XRT. Discussed recs w/ ENT as below Brief plan -Continue lisinopril & lexapro, patient tolerating oral meds -Continue liquid diet, Ensure, TF -D/c IV fluids iso persistent hyponatremia (likely mild SIADH) and now taking liquids well -Plan for PEG consult Tuesday for longer term nutrition -F/u surgical path: pending -PET-CT per ENT -ENT to organize OP follow up w/ Head and Neck Surgery, Medical Oncology, and Radiation Oncology -Update family -Patient would like to speak with SW regarding POA paperwork, also interested in short term disability and transportation to [facility] for treatment, will discuss these Tuesday when DM/SW return Scheduled Meds PRN Meds Infusions escitalopram, 20 mg, oral, Daily folic acid, 1 mg, oral, Daily lisinopriL, 10 mg, oral, Daily multivitamin therapeutic, 1 tablet, oral, Daily nicotine, 1 patch, transdermal, Daily pyridoxine, 100 mg, oral, Daily sodium chloride 0.9%, 0.5-20 mL, intra-catheter, Q8H TJ thiamine, 100 mg, oral, Daily acetaminophen, 650 mg, Q4H PRN sodium chloride 0.9%, 30 mL, PRN lidocaine, 1 patch, Daily PRN nortriptyline, 30 mg, Nightly PRN ondansetron ODT, 4 mg, Q6H PRN Or ondansetron, 4 mg, Q6H PRN oxyCODONE, 5 mg, Q4H PRN polyethylene glycol, 17 g, Daily PRN ramelteon, 8 mg, Nightly PRN sodium chloride 0.9%, 0.5-20 mL, PRN Objective Vitals: Most Recent : Vitals: 03/27/23 0410 BP: 132/67 Pulse: 68 Resp: 16 Temp: 36.5 ??C (97.7 ??F) SpO2: 98% 24hr Min/Max: Temp Min: 36.5 ??C (97.7 ??F) Max: 36.8 ??C (98.2 ??F) Pulse Min: 68 Max: 78 BP Min: 129/55 Max: 132/67 Resp Min: 16 Max: 17 SpO2 Min: 97 % Max: 98 % Most Recent: Vitals: 03/27/23 0410 BP: 132/67 Pulse: 68 Resp: 16 Temp: 36.5 ??C (97.7 ??F) SpO2: 98% I/O last 2 completed shifts: In: 1380 [P.O.:1200; NG/GT:180] Out: 200 [Urine:200] Intake/Output Summary (Last 24 hours) at 03/27/2023 0700 Last data filed at 03/27/2023 0655 Gross per 24 hour Intake 1380 ml Output 200 ml Net 1180 ml Net IO Since Admission: 1,400 mL [03/27/23 0700] Active Lines: Peripheral IV 03/23/23 20 G Right;Upper Forearm (Active) Peripheral IV Right (Active) Peripheral IV 03/24/23 20 G Anterior;Proximal;Right Forearm (Active) NG/OG Tube Nasogastric 10 Fr Left nostril (Active) Physical exam: Constitutional: Cachetic, chronically ill appearing Eyes: EOMI grossly intact. Anicteric, sclera non-injected ENT: NCAT, neck supple, dry oral mucosa, NGT in place Lungs: CTAB, Breathing comfortably on RA. Cardiovascular: RRR, normal S1 and S2. GI: Soft, NT/ND Skin: No rashes, lesions, or bruises to exposed skin areas MSK/Extremities: BLE non edematous, warm and well perfused Neuro: Alert, moving all extremities equally Lab/Diagnostic Review: Recent Results (from the past 36 hour(s)) CBC without differential Collection Time: 03/25/23 8:52 PM Result Value Ref Range WBC 7.2 3.8 - 9.9 K/cumm Hgb 9.0 (L) 13.0 - 17.5 g/dL Hct 26.9 (L) 38.9 - 50.3 % Plt 240 150 - 400 K/cumm MPV 9.2 9.1 - 12.3 fL RBC 2.89 (L) 4.30 - 5.80 M/cumm MCV 93.1 81.3 - 96.4 fL MCH 31.1 27.1 - 33.3 pg MCHC 33.5 32.3 - 35.7 g/dL RDW CV 13.5 11.1 - 14.9 % RDW SD 45.7 35.7 - 48.1 fL NRBC abs 0.00 0.00 - 0.01 K/cumm Magnesium Collection Time: 03/25/23 8:52 PM Result Value Ref Range Magnesium 2.0 1.4 - 2.5 mg/dL Basic metabolic panel Collection Time: 03/25/23 8:52 PM Result Value Ref Range Sodium 132 (L) 135 - 145 mmol/L Potassium, pl 4.2 3.3 - 4.9 mmol/L Chloride 97 97 - 110 mmol/L CO2 29 22 - 32 mmol/L Anion gap 6 2 - 15 mmol/L BUN 12 6 - 25 mg/dL Creatinine 0.50 (L) 0.80 - 1.30 mg/dL Glucose 146 70 - 199 mg/dL Calcium 8.4 (L) 8.5 - 10.3 mg/dL Phosphorus Collection Time: 03/25/23 8:52 PM Result Value Ref Range Phosphorus, pl 3.8 2.3 - 4.5 mg/dL eGFR Collection Time: 03/25/23 8:52 PM Result Value Ref Range eGFR >90 >=60 mL/min/1.73 m2 Hepatic function panel Collection Time: 03/25/23 8:52 PM Result Value Ref Range Bilirubin, total 0.2 0.1 - 1.2 mg/dL Bilirubin, direct <0.2 0.1 - 0.3 mg/dL Protein, pl 6.4 (L) 6.5 - 8.5 g/dL Albumin 3.1 (L) 3.5 - 5.0 g/dL Alk phos 80 40 - 130 Units/L ALT 20 7 - 55 Units/L AST 43 10 - 50 Units/L Magnesium Collection Time: 03/26/23 9:52 AM Result Value Ref Range Magnesium 1.8 1.4 - 2.5 mg/dL Basic metabolic panel Collection Time: 03/26/23 9:52 AM Result Value Ref Range Sodium 131 (L) 135 - 145 mmol/L Potassium, pl 4.6 3.3 - 4.9 mmol/L Chloride 96 (L) 97 - 110 mmol/L CO2 29 22 - 32 mmol/L Anion gap 6 2 - 15 mmol/L BUN 14 6 - 25 mg/dL Creatinine 0.52 (L) 0.80 - 1.30 mg/dL Glucose 158 70 - 199 mg/dL Calcium 8.6 8.5 - 10.3 mg/dL Phosphorus Collection Time: 03/26/23 9:52 AM Result Value Ref Range Phosphorus, pl 4.0 2.3 - 4.5 mg/dL eGFR Collection Time: 03/26/23 9:52 AM Result Value Ref Range eGFR >90 >=60 mL/min/1.73 m2 POCT glucose Collection Time: 03/26/23 5:29 PM Result Value Ref Range Glucose, POC 104 70 - 199 mg/dL Magnesium Collection Time: 03/26/23 8:12 PM Result Value Ref Range Magnesium 1.9 1.4 - 2.5 mg/dL Basic metabolic panel Collection Time: 03/26/23 8:12 PM Result Value Ref Range Sodium 131 (L) 135 - 145 mmol/L Potassium, pl 4.5 3.3 - 4.9 mmol/L Chloride 93 (L) 97 - 110 mmol/L CO2 31 22 - 32 mmol/L Anion gap 7 2 - 15 mmol/L BUN 23 6 - 25 mg/dL Creatinine 0.52 (L) 0.80 - 1.30 mg/dL Glucose 112 70 - 199 mg/dL Calcium 8.4 (L) 8.5 - 10.3 mg/dL Phosphorus Collection Time: 03/26/23 8:12 PM Result Value Ref Range Phosphorus, pl 3.3 2.3 - 4.5 mg/dL Type and screen Collection Time: 03/26/23 8:12 PM Result Value Ref Range ABO Rh A Positive Tam, indirect Negative CBC without differential Collection Time: 03/26/23 8:12 PM Result Value Ref Range WBC 8.8 3.8 - 9.9 K/cumm Hgb 8.0 (L) 13.0 - 17.5 g/dL Hct 24.1 (L) 38.9 - 50.3 % Plt 280 150 - 400 K/cumm MPV 9.0 (L) 9.1 - 12.3 fL RBC 2.54 (L) 4.30 - 5.80 M/cumm MCV 94.9 81.3 - 96.4 fL MCH 31.5 27.1 - 33.3 pg MCHC 33.2 32.3 - 35.7 g/dL RDW CV 13.5 11.1 - 14.9 % RDW SD 46.0 35.7 - 48.1 fL NRBC abs 0.00 0.00 - 0.01 K/cumm Hepatic function panel Collection Time: 03/26/23 8:12 PM Result Value Ref Range Bilirubin, total <0.2 0.1 - 1.2 mg/dL Bilirubin, direct <0.2 0.1 - 0.3 mg/dL Protein, pl 5.8 (L) 6.5 - 8.5 g/dL Albumin 3.0 (L) 3.5 - 5.0 g/dL Alk phos 74 40 - 130 Units/L ALT 19 7 - 55 Units/L AST 40 10 - 50 Units/L eGFR Collection Time: 03/26/23 8:12 PM Result Value Ref Range eGFR >90 >=60 mL/min/1.73 m2 I have reviewed the laboratory results. Imaging Results: XR Abdomen Ap 1 Vw Narrative: EXAMINATION: Abdomen, one view. HISTORY: Dobbhoff placement COMPARISON: None Impression: A single view of the abdomen is submitted for evaluation. Feeding tube with tip projecting over the gastric fundus. The stylette remains in place. Contrast in the proximal colon. No evidence of bowel obstruction in the imaged portion of the abdomen and pelvis. Vascular calcifications are present. The Non Critical results regarding Dobbhoff tube positioning were discussed with Dr. Villavicencio by Dr. Stone on 03/25/2023 at 6:56 PM Dictated by: Omar Stone M.D. The radiology attending physician has personally reviewed this study, and had reviewed and/or edited this written report and agrees with it. Electronically signed by: Shelli Ambriz M.D. Assessment/Plan Mr. Garcia is a 63 y.o. male PMH HTN, active tobacco use, urinary retention, and newly found L oropharyngeal mass, admitted 03/23/2023 2:31 PM for hemoptysis, hospital day 4. #L Oropharyngeal Mass c/f Malignancy #Hemoptysis/Acute Blood Loss Anemia Worsening oral bleeding for past month, dysphagia, worse w/ solids. Also with 40 lb wt loss over past year. Pt went to OSH 03/[address] neck showed large L oropharyngeal mass along base of tongue, floor of mouth, GTS, lingual mandible. Was d/c'd home with plan to f/u with [facility]. On 03/23 developed another episode of hemoptysis, reports ~1pint. BPs elevated, normocardic, on room air. Hgb 9.5 (03/21)->7.6 on admission. CTA H&N with large ulcerative L oropharyngeal neck mass 7.2x4.3x3.3cm highly suspicious for malignancy such as SCC involving L parapharyngeal, data operations manager, submandibular, sublingual spaces with ossesous involvement of L mandible; no e/o active extravasation. CXR with L he midiaphragm, mild L basilar reticular nodular opacities c/f atelectasis vs bronchiolitis related toaspiration. - Hgb>7, T&S, coags wnl - ENT following - s/p bx and Dobhoff placement 03/25 - Pending biopsy path, prelim carcinoma - Plan for PEG consult Tuesday for longer term nutrition - PET-CT per ENT - ENT to organize OP follow up w/ Head and Neck Surgery, Medical Oncology, and Radiation Oncology - 03/24 STUBBER MBS, rec FLD without purees, liquid/crushed meds - Document Control Specialist c/s for malnutrition: TF started, titrating to goal - Pain control: APAP, oxy PRN #Hyponatremia #SIADH Na 127 on admission. Unclear chronicity. Likely multifactorial hypotonic hypovolemic iso poor PO intake (which is now resolved) and mild SIADH due to malignancy. - Initial improvement to 133 after 1L IVF 03/24, now remaining around 131-133. - Repeat Serum osms 271, urine osms 479, Justin 139. Now volume replete. - d/c IVF now that patient's on TF and tolerating PO - CTM Na #Hyperkalemia- resolved K 5.2 on adm. Cr at baseline. Unclear etiology - Trending BMP, K now stable 4-4.4 #HTN BPs elevated 140-170s/60-80s. - Continue home lisinopril 10mg daily #Active TUD 30 pack yr hx. Smokes 0.5ppd (cut back from 1ppd). 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 Reports urinating without difficulty - Monitor UOP and I/Os -> low threshold to bladder scan #Mood - Continue home escitalopram 20mg daily DVT ppx: holding iso acute bleeding, ambulate TID Diet: FLD without purees, liquid/crushed meds Code: Full Erica Eli MD Cosigned by Stanislaw Goel MD at 03/27/2023 12:48 PM FREIGHT BROKER GHT BROKER GHT BROKER Associated attestation - Stanislaw Goel MD - 03/27/2023 12:48 PM FREIGHT BROKER Attending Documentation I have seen and examined the patient on 03/27/23. I agree with the findings and plan of care as documented in the resident's/fellow's note. and as discussed with the resident/fellow. 63 yo hx of HTN, and 50 pack year smoking hx presents with new L oropharyngeal mass and hemoptysis and presented with fall. # Oropharyngeal mass with hemoptysis A: : Currently not bleeding s/p biopsy with frozen sections showing carcinoma P: - appreciate ent input. Will have follow up with head and neck surgery, oncology and rad onc that they will help arrange - PET ordered (ENT would like this done inpatient). # Hyponatremia A: Appears hypovolemic and responded to fluids initially now sodium is 131. And urine osmolarity isover 400 indicating likely component of SIADH. He is asymptomatic P: will monitor sodium. No need to treat SIADH as sodium stable and he is asymptomatic # Severe malnutrition A: not eating well due to dysphagia from his mass and per STUBBER can only have liquids P: - Dobhoff placed and getting TF = will plan to place PEG tube on this admisison discussed with daughter today Supplementary Attestation Today, I am treating the patient for oropharyngeal mass, anemia, hyponatremia which is in severe exacerbation, progression, or experiencing treatment side effects as evidenced by hemoptysis, syncope and severe malnutrition , as described in the note Stanislaw Goel MD * Ofelia Santos, RD - 03/26/2023 4:59 PM CST NUTRITION ASSESSMENT Nutrition Status: Patient meets criteria for moderate chronic malnutrition, reference ASPEN guidelines. Present on Admission: Yes REASON FOR ASSESSMENT: Follow Up tube feeding assessment Encounter Date: 03/26/23 4:59 PM Admission Date: 03/23/2023 LOS: 3 days HPI: Patient is a 63 y.o. 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 Patient is somewhat a difficult historian in terms of timeline of events. He states that over the past year he's noticed a 40 lb weight loss and increasing difficulty with swallowing solids (okay with liquids), as well as a month of worsening N/V, and intermittent hemoptysis. on 03/21/23 where they found a large L oropharyngeal mass on CT neck. Six months ago he moved from [place] to [place], [place] where he lives with his daughter and niece's family. Patient denies , diarrhea, constipation, Objective History reviewed. No pertinent past medical history. Past Surgical History: Procedure Laterality Date APPENDECTOMY TONSILLECTOMY Social History Tobacco Use Smoking status: Every Day Packs/day: 1.50 Years: 15.00 Additional pack years: 0.00 Total pack years: 22.50 Types: Cigarettes Start date: 02/1979 Passive exposure: Never Smokeless tobacco: Never Substance and Sexual Activity Drug use: None Sexual activity: None Alcohol Use: Not At Risk (03/25/2023) AUDIT-C Frequency of Alcohol Consumption: Monthly or less Average Number of Drinks: 1 or 2 Frequency of Binge Drinking: Never MEDICATION/LAB REVIEW: Scheduled Meds: escitalopram, 20 mg, oral, Daily folic acid, 1 mg, oral, Daily lisinopriL, 10 mg, oral, Daily multivitamin therapeutic, 1 tablet, oral, Daily nicotine, 1 patch, transdermal, Daily pyridoxine, 100 mg, oral, Daily sodium chloride 0.9%, 0.5-20 mL, intra-catheter, Q8H TJ thiamine, 100 mg, oral, Daily Continuous Infusions: PRN Meds: acetaminophen sodium chloride 0.9% lidocaine nortriptyline ondansetron ODT OR ondansetron oxyCODONE polyethylene glycol ramelteon sodium chloride 0.9% Recent Labs Lab Units 03/26/23 0952 03/25/23205103/25/[id number]/232112 SODIUM mmol/L 131* 132* < > 133* POTASSIUM PLASMA mmol/L 4.6 4.2 < > 4.4 CHLORIDE mmol/L 96* 97 < > 100 CO2 mmol/L 29 29 < > 29 BUN SERUM mg/dL 14 12 < > 16 CREATININE mg/dL 0.52* 0.50* < > 0.50* [id number] mL/min/1.73 m2 >90 >90 < > >90 CALCIUM mg/dL 8.6 8.4* < > 8.5 ALBUMIN g/dL -- 3.1* -- -- PHOSPHORUS PLASMA mg/dL 4.0 3.8 -- 2.9 MAGNESIUM mg/dL 1.8 2.0 -- 2.0 < > = values in this interval not displayed. Recent Labs Lab Units 03/26/23 0952 03/25/23205103/25/[id number] 03/23/23 1444 GLUCOSE mg/dL 158 146 89 102 99 114 ALT Date Value Ref Range Status 03/25/2023 20 7 - 55 Units/L Final AST Date Value Ref Range Status 03/25/2023 43 10 - 50 Units/L Final Alk phos Date Value Ref Range Status 03/25/2023 80 40 - 130 Units/L Final No results found for: HGBA1C , HDL , LDLCALC , CHOL , TRIG NURSING ASSESSMENT: Last BM Date: 03/22/23 Bowel Sounds (All Quadrants): Active Justin Scale Score: 19 Skin Integrity: Bruising Vital Signs BP: 150/60 Temp: 36.5 ??C (97.7 ??F) Pulse: 65 Resp: 16 SpO2: 96 % Intake/Output Summary (Last 24 hours) at 03/26/20231658 Last data filed at 03/26/2023 1305 Gross per 24 hour Intake 1500 ml Output 650 ml Net 850 ml Adult Malnutrition Scoring Tool (MST) What diet do you follow at home?: NO SOLIDS ONLY LIQUIDS Have You Recently Lost Weight Without Trying?: Yes (Comment) How Much Weight Have You Lost?: 34 lb or more Have you been eating poorly because of a decreased appetite?: Yes Malnutrition Screening Tool (MST) Score: 5 Hunger Screen - Admission Within the past 12 months the food we bought just didn't last and we didn't have money to get more.: Never true Within the past 12 months we worried whether our food would run out before we got money to buy more.: Never true Anthropometrics Weight: 43.1 kg (95 lb) Admission Weight : 43.1 kg Weight Change: 0.00 kg (0.00 lbs) IBW/kg (Calculated) : 61.7 kg Height: 165.1 cm (5' 5 ) Weight in (lb) to have BMI = 25: 149.9 BMI (Calculated): 15.8 Wt Readings from Last 10 Encounters: 03/23/23 43.1 kg (95 lb) ESTIMATED NEEDS: Total Kcal/kg Estimated Needs : 1723.68 Kcal/k. Type of Weight Used for Estimated Kcals: Current Total Protein Estimated Needs (gm): 74.04 Protein Needs Based on g/k.2 Type of Weight Used for Estimated Protein : Murray Dietary Orders (From admission, onward) Start Ordered 03/26/23 165 Diet, Tube Feeding With Tray Osmolite 1.5 Mana (begin at 10 ml/hr and increase by 10 ml q6hrs to goal of 50 ml/hr); 30; Every 4 hours Diet effective now Comments: Adjust free water flush per hydration status Minimum flush 30 ml q4hrs to keep tube patent Follow aspiration precautions Monitor electrolytes replete as indicated Question Answer Comment ([facility]) Tube Feeding Formula: Osmolite 1.5 Mana begin at 10 ml/hr and increase by 10 ml q6hrs to goal of 50 ml/hr Tube Feeding Flush (mL): 30 Flush Frequency: Every 4 hours 03/26/23 16503/26/23 1300 Oral Nutrition Supplements ([facility]) Select Supplement: Ensure PLUS High Protein - Any Flavor; Quantity (# of cans): 1 can 3 times daily and at bedtime Question Answer Comment ([facility]) Select Supplement: Ensure PLUS High Protein - Any Flavor Quantity (# of cans): 1 can 03/26/23 0822 03/25/23 1334 Adult Diet Full Liquid, Restricted Diet effective now Comments: NO purees Medications: non-orally (or liquid form, crushed with liquid) Small bites, single sips, double/repeat swallows to clear Upright when eating Question Answer Comment ([facility]) Diet type Full Liquid ([facility]) Diet type Restricted 03/25/23 1335 Allergies: Reviewed. IMPRESSION: Pt s/p Dobbhoff placement 03/25 Pt on full liquid diet drinking good per nursing staff Recommend tube feeds see intervention below Labs noted Wt Readings from Last 15 Encounters: 03/23/23 43.1 kg (95 lb) ASPEN MALNUTRITION ASSESSMENT: Date of completion: 03/25/23 Pt with unintentional weight loss and inadequate energy intake ASPEN Malnutrition Assessment: ASPEN/AND Malnutrition Screening: Chronic illness or injury mild/moderate Chronic Illness/Injury Mild/Moderate Energy Intake: < 75% energy intake compared to estimated energy needs > (or equal to) 1 month Weight Loss: 20% in 12 months Body Fat: Mild/Moderate Muscle Mass: Mild/Moderate Patient Meets Criteria for Moderate Malnutrition: Yes Nutrition Focused Physical Exam: Subcutaneous Fat Loss Orbital Region - Surrounding the Eye: Somewhat hollow look, Slightly dark circles Cheek Region - Buccal Fat: Somewhat sunken appearance Muscle Loss [facility] [place] - Temporalis Muscle: Slight depression Clavicle Bone Region - Pectoralis Major, Deltoid, Trapezius Muscles: Protruding, prominent bone Posterior Calf Region - Gastrocnemius Muscle: Thin, minimal to no muscle definition ASPEN/AND Malnutrition Screening: Chronic illness or injury mild/moderate Energy Intake: < 75% energy intake compared to estimated energy needs > (or equal to) 1 month Weight Loss: 20% in 12 months Body Fat: Mild/Moderate Muscle Mass: Mild/Moderate Patient Meets Criteria for Moderate Malnutrition: Yes NUTRITION FOCUSED PHYSICAL EXAM: Completed. Subcutaneous Fat Loss Orbital Region - Surrounding the Eye: Somewhat hollow look, Slightly dark circles Cheek Region - Buccal Fat: Somewhat sunken appearance Muscle Loss [facility] [place] - Temporalis Muscle: Slight depression Clavicle Bone Region - Pectoralis Major, Deltoid, Trapezius Muscles: Protruding, prominent bone Posterior Calf Region - Gastrocnemius Muscle: Thin, minimal to no muscle definition NUTRITION DIAGNOSIS: Nutrition Diagnosis 1: Inadequate oral intake Related to: Oral pharyngeal, Chronic illness/injury Evidenced by: Weight loss, Need for full tube feeding INTERVENTION(S): Summary: Initial assessment, Enteral nutrition administration Monitor plan of care NUTRITION INITIATION Full liquid diet ensure plus high protein tid Enteral nutrition Osmolite 1.5 @ 40mL/hr. Provides 1440 kcal (33 kcal/kg), 60 g protein (1.4 g/kg), 195 g CHO, 47 g fat, and 731mL free water. begin at 10 ml/hr and increase by 10 ml q6hrs to goal Minimum free water flush at 30 ml q4hrs If significant electrolyte abnormalities occur consider patient at significant risk and will provide additional recommendations. VITAMIN RECOMMENDATIONS Thiamine: 100mg daily (PO / PT / IV) daily x 7 days Vitamin B6 (pyridoxine): 100mg (IV/PO/PT) x 5 days Folic Acid: 1mg (PO/PT) x 7 days MVI / Vitamin: 1 tablet (PO/PT) daily LAB / MONITORING RECOMMENDATIONS BMP, Magnesium, Phosphorus Q 12 hours Decrease frequency once patient at goal oral intake x 24 hours and electrolytes stable (K+ > 3, Phos > 2, Mg >1.5) LFTS - Baseline and then daily x 3 days Baseline weight - weigh 2-3x / week ELECTROLYTE REPLETION RECOMMENDATIONS Replete electrolytes as indicated In patients with hypokalemia and hypomagnesaemia, replete Magnesium first FLUID RECOMMENDATIONS Take caution with IVF containing dextrose GOAL(S): Adequate nutrition to meet estimated needs by next assessment, Tolerance of enteral feeding at goalrate MONITORING/EVALUATION: TF tolerance, Labs, Electrolyte changes GHT BROKER * Yaima Daniel MD - 03/26/2023 1:27 PM CST Medicine Daily Progress Note Name: Aleksey Garcia Today: March 26, 2023 : 1960 Age: 63 y.o. male Admit: 03/23/2023 Bed: [id number] [facility] Daily Progress Subjective Mr. Garcia is a 63 y.o. male PMH HTN, active tobacco use, urinary retention, newly found L oropharyngeal mass, admitted 03/23/2023 2:31 PM for hemoptysis, hospital day 3. Interval History: NAEON. VSS, hypertensive. Again w/ GANDHI that responded to oxy. -Na 131. Hgb 9.0. -Serum osms 271, urine osms 479, Justin 139. Now volume replete. -S/p bx w/ ENT yesterday, prelim carcinoma, awaiting further pathology but likely will need chemo/XRT. Discussed recs w/ ENT as below -Dobhoff placed in OR Brief plan - Resume lisinopril & lexapro, patient tolerating oral meds -Continue liquid diet, Ensure. RD to eval for tube feeds -D/c IV fluids iso persistent hyponatremia (likely mild SIADH) and now taking liquids well -Plan for PEG consult Tuesday for longer term nutrition -PET-CT per ENT -ENT to organize OP follow up w/ Head and Neck Surgery, Medical Oncology, and Radiation Oncology -Update family -patient would like to speak with SW regarding POA paperwork, also interested in short term disability and transportation to [facility] for treatment, will discuss these Tuesday when DM/SW return Scheduled Meds PRN Meds Infusions [Held by Provider] escitalopram, 20 mg, oral, Daily folic acid, 1 mg, oral, Daily [Held by Provider] lisinopriL, 10 mg, oral, Daily multivitamin therapeutic, 1 tablet, oral, Daily nicotine, 1 patch, transdermal, Daily pyridoxine, 100 mg, oral, Daily sodium chloride 0.9%, 0.5-20 mL, intra-catheter, Q8H TJ thiamine, 100 mg, oral, Daily acetaminophen, 650 mg, Q4H PRN sodium chloride 0.9%, 30 mL, PRN lidocaine, 1 patch, Daily PRN nortriptyline, 30 mg, Nightly PRN ondansetron ODT, 4 mg, Q6H PRN Or ondansetron, 4 mg, Q6H PRN oxyCODONE, 5 mg, Q4H PRN polyethylene glycol, 17 g, Daily PRN ramelteon, 8 mg, Nightly PRN sodium chloride 0.9%, 0.5-20 mL, PRN Objective Vitals: Most Recent : Vitals: 03/26/23 0425 BP: 150/60 Pulse: 65 Resp: 16 Temp: 36.5 ??C (97.7 ??F) SpO2: 96% 24hr Min/Max: Temp Min: 36.1 ??C (97 ??F) Max: 37 ??C (98.6 ??F) Pulse Min: 63 Max: 78 BP Min: 150/60 Max: 178/66 Resp Min: 12 Max: 17 SpO2 Min: 92 % Max: 100 % Most Recent: Vitals: 03/26/23 0425 BP: 150/60 Pulse: 65 Resp: 16 Temp: 36.5 ??C (97.7 ??F) SpO2: 96% I/O last 2 completed shifts: In: 1100 [P.O.:500; I.V.:600] Out: 880 [Urine:875; Blood:5] Intake/Output Summary (Last 24 hours) at 03/26/2023 1327 Last data filed at 03/26/2023 1305 Gross per 24 hour Intake 2100 ml Output 655 ml Net 1445 ml Net IO Since Admission: 1,220 mL [03/26/23 1327] Active Lines: Peripheral IV 03/23/23 20 G Right;Upper Forearm (Active) Peripheral IV Right (Active) Peripheral IV 03/24/23 20 G Anterior;Proximal;Right Forearm (Active) NG/OG Tube Nasogastric 10 Fr Left nostril (Active) Physical exam: Constitutional: Cachetic, chronically ill appearing Eyes: EOMI grossly intact. Anicteric, sclera non-injected ENT: NCAT, neck supple, dry oral mucosa, trismus, dried blood around nares Lungs: CTAB, Breathing comfortably on RA. Cardiovascular: RRR, normal S1 and S2. GI: Soft, NT/ND Skin: No rashes, lesions, or bruises to exposed skin areas MSK/Extremities: BLE non edematous, warm and well perfused Neuro: Alert, moving all extremities equally Lab/Diagnostic Review: Recent Results (from the past 36 hour(s)) Hemoglobin and hematocrit Collection Time: 03/25/23 6:14 AM Result Value Ref Range Hgb 8.6 (L) 13.0 - 17.5 g/dL Hct 25.7 (L) 38.9 - 50.3 % Basic metabolic panel Collection Time: 03/25/23 6:14 AM Result Value Ref Range Sodium 131 (L) 135 - 145 mmol/L Potassium, pl 4.0 3.3 - 4.9 mmol/L Chloride 99 97 - 110 mmol/L CO2 28 22 - 32 mmol/L Anion gap 4 2 - 15 mmol/L BUN 12 6 - 25 mg/dL Creatinine 0.49 (L) 0.80 - 1.30 mg/dL Glucose 89 70 - 199 mg/dL Calcium 8.3 (L) 8.5 - 10.3 mg/dL eGFR Collection Time: 03/25/23 6:14 AM Result Value Ref Range eGFR >90 >=60 mL/min/1.73 m2 Urinalysis reflex to microscopic and culture Urine Collection Time: 03/25/23 7:55 AM Specimen: Urine Result Value Ref Range Color, ur Straw Yellow Clarity, ur Clear Clear Specific gravity, ur 1.014 1.003 - 1.030 pH, urine 7.0 Protein, ur ql Negative Negative Glucose, ur ql Negative Negative Ketones, ur Negative Negative Bilirubin, ur Negative Negative Blood, ur Negative Negative Urobilinogen, ur <2.0 <2.0 mg/dL Nitrite, ur Positive (A) Negative Leukocyte esterase, ur Negative Negative UA reflex comment Reflex to microscopic UA will be performed. Osmolality, urine Collection Time: 03/25/23 7:55 AM Result Value Ref Range Osmo, ur 479 mOsm/kg Sodium, urine, random Collection Time: 03/25/23 7:55 AM Result Value Ref Range Sodium, ur 139 mmol/L Urinalysis, microscopic only Collection Time: 03/25/23 7:55 AM Result Value Ref Range WBC, ur 0-5 0 - 5 /HPF RBC, ur 0-2 0 - 2 /HPF Epithelial cells, squamous, ur 1-5 0 - 5 /HPF Bacteria, ur Trace (A) Yeast, ur Trace (A) Mucous, ur Present (A) Culture Reflex Comment Reflex conditions for urine culture (WBC >10) not met. Hemoglobin and hematocrit Collection Time: 03/25/23 12:40 PM Result Value Ref Range Hgb 8.1 (L) 13.0 - 17.5 g/dL Hct 24.7 (L) 38.9 - 50.3 % Osmolality, blood Collection Time: 03/25/23 12:40 PM Result Value Ref Range Osmo 271 (L) 275 - 300 mOsm/kg CBC without differential Collection Time: 03/25/23 8:52 PM Result Value Ref Range WBC 7.2 3.8 - 9.9 K/cumm Hgb 9.0 (L) 13.0 - 17.5 g/dL Hct 26.9 (L) 38.9 - 50.3 % Plt 240 150 - 400 K/cumm MPV 9.2 9.1 - 12.3 fL RBC 2.89 (L) 4.30 - 5.80 M/cumm MCV 93.1 81.3 - 96.4 fL MCH 31.1 27.1 - 33.3 pg MCHC 33.5 32.3 - 35.7 g/dL RDW CV 13.5 11.1 - 14.9 % RDW SD 45.7 35.7 - 48.1 fL NRBC abs 0.00 0.00 - 0.01 K/cumm Magnesium Collection Time: 03/25/23 8:52 PM Result Value Ref Range Magnesium 2.0 1.4 - 2.5 mg/dL Basic metabolic panel Collection Time: 03/25/23 8:52 PM Result Value Ref Range Sodium 132 (L) 135 - 145 mmol/L Potassium, pl 4.2 3.3 - 4.9 mmol/L Chloride 97 97 - 110 mmol/L CO2 29 22 - 32 mmol/L Anion gap 6 2 - 15 mmol/L BUN 12 6 - 25 mg/dL Creatinine 0.50 (L) 0.80 - 1.30 mg/dL Glucose 146 70 - 199 mg/dL Calcium 8.4 (L) 8.5 - 10.3 mg/dL Phosphorus Collection Time: 03/25/23 8:52 PM Result Value Ref Range Phosphorus, pl 3.8 2.3 - 4.5 mg/dL eGFR Collection Time: 03/25/23 8:52 PM Result Value Ref Range eGFR >90 >=60 mL/min/1.73 m2 Hepatic function panel Collection Time: 03/25/23 8:52 PM Result Value Ref Range Bilirubin, total 0.2 0.1 - 1.2 mg/dL Bilirubin, direct <0.2 0.1 - 0.3 mg/dL Protein, pl 6.4 (L) 6.5 - 8.5 g/dL Albumin 3.1 (L) 3.5 - 5.0 g/dL Alk phos 80 40 - 130 Units/L ALT 20 7 - 55 Units/L AST 43 10 - 50 Units/L Magnesium Collection Time: 03/26/23 9:52 AM Result Value Ref Range Magnesium 1.8 1.4 - 2.5 mg/dL Basic metabolic panel Collection Time: 03/26/23 9:52 AM Result Value Ref Range Sodium 131 (L) 135 - 145 mmol/L Potassium, pl 4.6 3.3 - 4.9 mmol/L Chloride 96 (L) 97 - 110 mmol/L CO2 29 22 - 32 mmol/L Anion gap 6 2 - 15 mmol/L BUN 14 6 - 25 mg/dL Creatinine 0.52 (L) 0.80 - 1.30 mg/dL Glucose 158 70 - 199 mg/dL Calcium 8.6 8.5 - 10.3 mg/dL Phosphorus Collection Time: 03/26/23 9:52 AM Result Value Ref Range Phosphorus, pl 4.0 2.3 - 4.5 mg/dL eGFR Collection Time: 03/26/23 9:52 AM Result Value Ref Range eGFR >90 >=60 mL/min/1.73 m2 I have reviewed the laboratory results. Imaging Results: XR Abdomen Ap 1 Vw Narrative: EXAMINATION: Abdomen, one view. HISTORY: Dobbhoff placement COMPARISON: None Impression: A single view of the abdomen is submitted for evaluation. Feeding tube with tip projecting over the gastric fundus. The stylette remains in place. Contrast in the proximal colon. No evidence of bowel obstruction in the imaged portion of the abdomen and pelvis. Vascular calcifications are present. The Non Critical results regarding Dobbhoff tube positioning were discussed with Dr. Vlilavicencio by Dr. Stone on 03/25/2023 at 6:56 PM Dictated by: Omar Stone M.D. The radiology attending physician has personally reviewed this study, and had reviewed and/or edited this written report and agrees with it. Electronically signed by: Shelli Ambriz M.D. Assessment/Plan Mr. Garcia is a 63 y.o. male PMH HTN, active tobacco use, urinary retention, and newly found L oropharyngeal mass, admitted 03/23/2023 2:31 PM for hemoptysis, hospital day 3. #L Oropharyngeal Mass c/f Malignancy #Hemoptysis/Acute Blood Loss Anemia Worsening oral bleeding for past month, dysphagia, worse w/ solids. Also with 40 lb wt loss over past year. Pt went to OSH 03/[address] neck showed large L oropharyngeal mass along base of tongue, floor of mouth, GTS, lingual mandible. Was d/c'd home with plan to f/u with [facility]NT. On 03/23 developed another episode of hemoptysis, reports ~1pint. BPs elevated, normocardic, on room air. Hgb 9.5 (03/21)->7.6 on admission. CTA H&N with large ulcerative L oropharyngeal neck mass 7.2x4.3x3.3cm highly suspicious for malignancy such as SCC involving L parapharyngeal, data operations manager, submandibular, sublingual spaces with ossesous involvement of L mandible; no e/o active extravasation. CXR with L he midiaphragm, mild L basilar reticular nodular opacities c/f atelectasis vs bronchiolitis related toaspiration. - Hgb>7, T&S, coags wnl - ENT following - s/p bx and Dobhoff placement 03/25 - Pending biopsy path, prelim carcinoma -Plan for PEG consult Tuesday for longer term nutrition -PET-CT per ENT -ENT to organize OP follow up w/ Head and Neck Surgery, Medical Oncology, and Radiation Oncology - 03/24 STUBBER MBS, rec FLD without purees, liquid/crushed meds - Document Control Specialist c/s for malnutrition: Will f/u TF recs - s/p 1L NS. D/c IVF now that taking PO - Pain control: APAP, oxy PRN #Hyponatremia #SIADH Na 127 on admission. Unclear chronicity. Likely multifactorial hypotonic hypovolemic iso poor PO intake (which is now resolved) and mild SIADH due to malignancy. - Initial improvement to 133 after 1L IVF 03/24, now remaining around 131-133. - Repeat Serum osms 271, urine osms 479, Justin 139. Now volume replete. - d/c IVF as above -CTM Na #Hyperkalemia- resolved K 5.2 on adm. Cr at baseline. Unclear etiology - Trending BMP, K now stable 4-4.4 #HTN BPs elevated 140-170s/60-80s. - Resume home lisinopril 10mg daily (held while NPO) #Active TUD 30 pack yr hx. Smokes 0.5ppd (cut back from 1ppd). 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 Reports urinating without difficulty - Monitor UOP and I/Os -> low threshold to bladder scan #Mood - Resume home escitalopram 20mg daily DVT ppx: holding iso acute bleeding, ambulate TID Diet: FLD without purees, liquid/crushed meds Code: Full Yaima Daniel MD Cosigned by Stanislaw Goel MD at 03/26/2023 4:21 PM FREIGHT BROKER GHT BROKER GHT BROKER Associated attestation - Stanislaw Goel MD - 03/26/2023 4:21 PM FREIGHT BROKER Attending Documentation I have seen and examined the patient on 03/26/23. I agree with the findings and plan of care as documented in the resident's/fellow's note. and as discussed with the resident/fellow. 63 yo hx of HTN, and 50 pack year smoking hx presents with new L oropharyngeal mass and hemoptysis and presented with fall. # Acute blood loss anemia causing syncope A: patient had sudden LOC after taking a nap. Had been having hemoptysis in the past several days. P: - Monitor H/H # Oropharyngeal mass with hemoptysis A: : Currently not bleeding s/p biopsy with frozen sections showing carcinoma P: - appreciate ent input. Discussed with Dr. Villavicencio today Will have follow up with head and neck surgery, oncology and rad onc that they will help arrange - PET ordered (ENT would like this done inpatient). # Hyponatremia A: Appears hypovolemic and responded to fluids initially now sodium is 131. And urine osmolarity isover 400 indicating likely component of SIADH. He is asymptomatic P: stop IVF, will monitor sodium # Severe malnutrition A: not eating well due to dysphagia from his mass and per STUBBER can only have liquids P: - Dobhoff placed, await nutrition input for tube feedings = will plan to place PEG tube on this admisison Supplementary Attestation Today, I am treating the patient for oropharyngeal mass, anemia, hyponatremia which is in severe exacerbation, progression, or experiencing treatment side effects as evidenced by hemoptysis, syncope and severe malnutrition , as described in the note Stanislaw Goel MD * Saud, Roland Gonzales MD - 03/26/2023 10:24 AM CST Otolaryngology - Head & Neck Surgery Daily Progress Subjective Chief complaint: Chief Complaint Patient presents with Cyst 63M with newly detected oropharyngeal mass transferred from OSH for oral cavity bleeding. Received 1u pRBC. Currently hemostatic. Hgb drop 2 points at OSH - 7.9 here, receiving 1u pRBC. Hemostatic, no distress. 12m hemoptysis with eating; 60-lb weight loss, dysphagia to solids, stable for past couple of months on protein shakes; mild trismus over past 2 months Interval History: - AF, int HTN to SBP 170s, o/w VSS on RA. - WBC 7.2 (4.8), Hgb 9 (8.1) - Breathing comfortably, no acute distress. No oral bleeding. Dried blood in right nare Objective VITALS, 24HR MIN/MAX: Temp Min: 36.1 ??C (97 ??F) Max: 37 ??C (98.6 ??F) Pulse Min: 63 Max: 78 BP Min: 150/60 Max: 178/66 Resp Min: 12 Max: 17 SpO2 Min: 92 % Max: 100 % I&O I/O last 2 completed shifts: In: 1100 [P.O.:500; I.V.:600] Out: 880 [Urine:875; Blood:5] Net IO Since Admission: 220 mL [03/26/23 1024] Output by Drain (mL) 03/24/23 07 - 03/24/23 1859 03/24/23 190 - 03/25/23 0659 03/25/23 07 - 03/25/23 1859 03/25/23 190 - 03/26/23 0659 03/26/23 07 - 03/26/23 1024 Patient has no LDAs of requested type attached. Scheduled Continuous As needed [Held by Provider] escitalopram, 20 mg, oral, Daily folic acid, 1 mg, oral, Daily [Held by Provider] lisinopriL, 10 mg, oral, Daily multivitamin therapeutic, 1 tablet, oral, Daily nicotine, 1 patch, transdermal, Daily pyridoxine, 100 mg, oral, Daily sodium chloride 0.9%, 0.5-20 mL, intra-catheter, Q8H TJ thiamine, 100 mg, oral, Daily acetaminophen, 650 mg, 650 mg at 03/25/23 0623 sodium chloride 0.9%, 30 mL lidocaine, 1 patch nortriptyline, 30 mg ondansetron ODT, 4 mg OR ondansetron, 4 mg oxyCODONE, 5 mg, 5 mg at 03/25/232041 polyethylene glycol, 17 g ramelteon, 8 mg, 8 mg at 03/25/232041 sodium chloride 0.9%, 0.5-20 mL Physical Exam: Vitals: 03/25/23 1835 03/25/23 2020 03/26/23 0000 03/26/23 0425 BP: (!) 178/66 (!) 172/68 170/65 150/60 BP Location: Right arm Right arm Right arm Right arm Patient Position: Sitting HOB 30 degrees HOB 30 degrees HOB 30 degrees Pulse: 67 68 70 65 Resp: 14 15 17 16 Temp: 36.4 ??C (97.5 ??F) 36.5 ??C (97.7 ??F) 37 ??C (98.6 ??F) 36.5 ??C (97.7 ??F) TempSrc: Oral Oral Oral Oral SpO2: 100% 100% 98% 96% Weight: Height: General: awake, NAD. Head and Face: NC, AT. Face symmetric. Eyes: Sclera white, no injection or chemosis, no periorbital edema Ears: Normal external ears. No drainage Nose: Dorsum midline, no drainage Mouth: Trismus, no vision lesions in oral cavity, tongue is deviated by left base of tongue mass, no OC/OP bleeding, MMM, tolerating secretions Neck: Soft and flat CV: Extremities warm and well-perfused Pulm: Normal quiet breathing. No respiratory distress, stridor, or wheeze. Neuro: Regards, follows commands. AOx3. CN grossly intact; moving all extremities Lab/Radiology/Diagnostic Review: LABS 24 HOURS: Lab Results Component Value Date WBC 7.2 03/25/2023 HGB 9.0 (L) 03/25/2023 HCT 26.9 (L) 03/25/2023 LABPLAT 240 03/25/2023 ALT 20 03/25/2023 AST 43 03/25/2023 SODIUM 132 (L) 03/25/2023 POTASSIUM 4.2 03/25/2023 CHLORIDE 97 03/25/2023 BUNSER 12 03/25/2023 CO2 29 03/25/2023 CREATININE 0.50 (L) 03/25/2023 GLUCOSE 146 03/25/2023 CALCIUM 8.4 (L) 03/25/2023 PHOS 3.8 03/25/2023 MAGNESIUM 2.0 03/25/2023 PT 11.8 03/23/2023 INR 1.04 03/23/2023 No results found for: MICROBIOLOGY , DIRECTEXAM XR Abdomen Ap 1 Vw Narrative: EXAMINATION: Abdomen, one view. HISTORY: Dobbhoff placement COMPARISON: None Impression: A single view of the abdomen is submitted for evaluation. Feeding tube with tip projecting over the gastric fundus. The stylette remains in place. Contrast in the proximal colon. No evidence of bowel obstruction in the imaged portion of the abdomen and pelvis. Vascular calcifications are present. The Non Critical results regarding Dobbhoff tube positioning were discussed with Dr. Villavicencio by Dr. Stone on 03/25/2023 at 6:56 PM Dictated by: Omar Stone M.D. The radiology attending physician has personally reviewed this study, and had reviewed and/or edited this written report and agrees with it. Electronically signed by: Shelli Ambriz M.D. Assessment/Plan Principal Problem: Oral mass Active Problems: Moderate malnutrition (CMS/HCC) Assessment: 63 y.o. male with oral cavity bleeding requiring transfusions in the setting of recently diagnosed left oropharyngeal mass. Scope and physical exam negative for source of bleeding. The mass is submucosal and hypomobile to the tongue musculature. We discussed that the next steps of his workup include tissue biopsy and additional imaging with a PET-CT. We deferred bedside biopsy due to trismus, decreased tongue mobility, and concern for hemostasis in setting of recent bleeding. CTA without evidence of active extravasation. Frozen sections indicating carcinoma. Plan: - Follow up final pathology - Order PET/CT inpatient - Dobhoff tube in place and able to be used. terminal operator enteral access I.e. G tube per primary team - Will plan for outpatient follow up with Head and Neck Surgery, Medical Oncology, and Radiation Oncology Roland Villavicencio MD Otolaryngology - Head & Neck Surgery QUESTIONS: Weekdays daytime: [facility] Otolaryngology [facility] Consult New consults, after-hours & weekends: [facility] Otolaryngology [facility] Resident Primary/Night Float ENT scheduling line: [phone] (please include in discharge paperwork as needed) Cosigned by Rigoberto Sharma MD at 03/28/2023 7:51 PM FREIGHT BROKER GHT BROKER GHT BROKER * Roland Villavicencio MD - 03/25/2023 10:25 PM CST Otolaryngology - Head & Neck Surgery Post-Operative Check POC Date, Time: March 25, 2023 10:25 PM Surgeon: Rocio Quiroz MD Surgery: Direct laryngoscopy, oropharyngeal biopsy Kristy Garcia is s/p above surgery. No acute postoperative issues. No bleeding. Dobhoff tube in place, KUB cleared. Stylet removed. Objective Vitals: 24hr Min/Max: Temp Min: 36.1 ??C (97 ??F) Max: 36.7 ??C (98.1 ??F) Pulse Min: 63 Max: 78 BP Min: 135/72 Max: 178/66 Resp Min: 12 Max: 18 SpO2 Min: 92 % Max: 100 % Most Recent: Vitals: 03/25/232019 BP: (!) 172/68 Pulse: 68 Resp: 15 Temp: 36.5 ??C (97.7 ??F) SpO2: 100% Physical Exam: Vitals: 03/25/23 1740 03/25/23 1746 03/25/23 1835 03/25/232019 BP: 169/85 (!) 178/66 (!) 172/68 BP Location: Right arm Right arm Patient Position: Sitting HOB 30 degrees Pulse: 71 71 67 68 Resp: 14 16 14 15 Temp: 36.1 ??C (97 ??F) 36.4 ??C (97.5 ??F) 36.5 ??C (97.7 ??F) TempSrc: Temporal Oral Oral SpO2: 100% 100% 100% 100% Weight: Height: General: Awake, NAD Head: NC, AT Eyes: Sclera white, no injection or chemosis, no periorbital edema Nose: No nasal bleeding, no flaring Mouth: Trismus, left oropharyngeal mass, no active bleeding, tolerating secretions, MMM Neck: Soft and flat CV: RRR Pulm: NLB, no stridor, no stertor Skin: WWP Neuro: OE, R, FC; AOx3; CN grossly intact; MAEWx4 Lab/Radiology/Diagnostic Review: Laboratory review: Lab results in the last 24 hours: Recent Results (from the past 24 hour(s)) Hemoglobin and hematocrit Collection Time: 03/25/23 6:14 AM Result Value Ref Range Hgb 8.6 (L) 13.0 - 17.5 g/dL Hct 25.7 (L) 38.9 - 50.3 % Basic metabolic panel Collection Time: 03/25/23 6:14 AM Result Value Ref Range Sodium 131 (L) 135 - 145 mmol/L Potassium, pl 4.0 3.3 - 4.9 mmol/L Chloride 99 97 - 110 mmol/L CO2 28 22 - 32 mmol/L Anion gap 4 2 - 15 mmol/L BUN 12 6 - 25 mg/dL Creatinine 0.49 (L) 0.80 - 1.30 mg/dL Glucose 89 70 - 199 mg/dL Calcium 8.3 (L) 8.5 - 10.3 mg/dL eGFR Collection Time: 03/25/23 6:14 AM Result Value Ref Range eGFR >90 >=60 mL/min/1.73 m2 Urinalysis reflex to microscopic and culture Urine Collection Time: 03/25/23 7:55 AM Specimen: Urine Result Value Ref Range Color, ur Straw Yellow Clarity, ur Clear Clear Specific gravity, ur 1.014 1.003 - 1.030 pH, urine 7.0 Protein, ur ql Negative Negative Glucose, ur ql Negative Negative Ketones, ur Negative Negative Bilirubin, ur Negative Negative Blood, ur Negative Negative Urobilinogen, ur <2.0 <2.0 mg/dL Nitrite, ur Positive (A) Negative Leukocyte esterase, ur Negative Negative UA reflex comment Reflex to microscopic UA will be performed. Osmolality, urine Collection Time: 03/25/23 7:55 AM Result Value Ref Range Osmo, ur 479 mOsm/kg Sodium, urine, random Collection Time: 03/25/23 7:55 AM Result Value Ref Range Sodium, ur 139 mmol/L Urinalysis, microscopic only Collection Time: 03/25/23 7:55 AM Result Value Ref Range WBC, ur 0-5 0 - 5 /HPF RBC, ur 0-2 0 - 2 /HPF Epithelial cells, squamous, ur 1-5 0 - 5 /HPF Bacteria, ur Trace (A) Yeast, ur Trace (A) Mucous, ur Present (A) Culture Reflex Comment Reflex conditions for urine culture (WBC >10) not met. Hemoglobin and hematocrit Collection Time: 03/25/23 12:40 PM Result Value Ref Range Hgb 8.1 (L) 13.0 - 17.5 g/dL Hct 24.7 (L) 38.9 - 50.3 % Osmolality, blood Collection Time: 03/25/23 12:40 PM Result Value Ref Range Osmo 271 (L) 275 - 300 mOsm/kg CBC without differential Collection Time: 03/25/23 8:52 PM Result Value Ref Range WBC 7.2 3.8 - 9.9 K/cumm Hgb 9.0 (L) 13.0 - 17.5 g/dL Hct 26.9 (L) 38.9 - 50.3 % Plt 240 150 - 400 K/cumm MPV 9.2 9.1 - 12.3 fL RBC 2.89 (L) 4.30 - 5.80 M/cumm MCV 93.1 81.3 - 96.4 fL MCH 31.1 27.1 - 33.3 pg MCHC 33.5 32.3 - 35.7 g/dL RDW CV 13.5 11.1 - 14.9 % RDW SD 45.7 35.7 - 48.1 fL NRBC abs 0.00 0.00 - 0.01 K/cumm Assessment/Plan Aleksey Garcia is a 63 y.o. 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 - Call ENT if concerns for bleeding - Dobhoff tube ok to use (cleared by KUB) Roland Villavicencio MD Resident Physician, PGY-1 Otolaryngology - Head & Neck Surgery QUESTIONS: Weekdays daytime: [facility] Otolaryngology [facility] Consult New consults, after-hours & weekends: [facility] Otolaryngology [facility] Resident Primary/Night Float ENT scheduling line: [phone] (please include in discharge paperwork as needed) Cosigned by Rigoberto Sharma MD at 03/28/2023 7:51 PM FREIGHT BROKER GHT BROKER GHT BROKER * Ofelia Santos, RD - 03/25/2023 10:01 AM CST NUTRITION ASSESSMENT Nutrition Status: Patient meets criteria for moderate chronic malnutrition, reference ASPEN guidelines. Present on Admission: Yes REASON FOR ASSESSMENT: Consult/Referral - Malnutrition Assessment Encounter Date: 03/25/23 10:01 AM Admission Date: 03/23/2023 LOS: 2 days HPI: Patient is a 63 y.o. 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 Patient is somewhat a difficult historian in terms of timeline of events. He states that over the past year he's noticed a 40 lb weight loss and increasing difficulty with swallowing solids (okay with liquids), as well as a month of worsening N/V, and intermittent hemoptysis. on 03/21/23 where they found a large L oropharyngeal mass on CT neck. Six months ago he moved from [place] to [place], [place] where he lives with his daughter and niece's family. Patient denies , diarrhea, constipation, Objective No past medical history on file. No past surgical history on file. Social History Tobacco Use Smoking status: Every Day Packs/day: 1.50 Years: 15.00 Additional pack years: 0.00 Total pack years: 22.50 Types: Cigarettes Start date: 02/1979 Passive exposure: Never Smokeless tobacco: Never Substance and Sexual Activity Drug use: None Sexual activity: None Alcohol Use: Not on file MEDICATION/LAB REVIEW: Scheduled Meds: [Held by Provider] escitalopram, 20 mg, oral, Daily [Held by Provider] lisinopriL, 10 mg, oral, Daily nicotine, 1 patch, transdermal, Daily sodium chloride 0.9%, 0.5-20 mL, intra-catheter, Q8H TJ Continuous Infusions: PRN Meds: acetaminophen sodium chloride 0.9% lidocaine nortriptyline ondansetron ODT OR ondansetron oxyCODONE polyethylene glycol ramelteon sodium chloride 0.9% Recent Labs Lab Units 03/25/23 0614 03/24/23 2113 03/24/23 0517 03/23/23 2228 03/23/23 1444 0000 SODIUM mmol/L 131* 133* < > -- 127* -- POTASSIUM PLASMA mmol/L 4.0 4.4 < > -- 5.2* -- CHLORIDE mmol/L 99 100 < > -- 94* -- CO2 mmol/L 28 29 < > -- 28 -- BUN SERUM mg/dL 12 16 < > -- 27* -- CREATININE mg/dL 0.49* 0.50* < > -- 0.48* -- [id number] mL/min/1.73 m2 >90 >90 < > -- >90 -- CALCIUM mg/dL 8.3* 8.5 < > -- 8.5 -- ALBUMIN g/dL -- -- -- -- 3.4* -- PHOSPHORUS PLASMA mg/dL -- 2.9 -- 3.8 -- < > MAGNESIUM mg/dL -- 2.0 -- 2.1 -- -- < > = values in this interval not displayed. Recent Labs Lab Units 03/25/23 0614 03/24/23211203/24/23 0517 03/23/23 1444 GLUCOSE mg/dL 89 102 99 114 ALT Date Value Ref Range Status 03/23/2023 19 7 - 55 Units/L Final AST Date Value Ref Range Status 03/23/2023 38 10 - 50 Units/L Final Alk phos Date Value Ref Range Status 03/23/2023 73 40 - 130 Units/L Final No results found for: HGBA1C , HDL , LDLCALC , CHOL , TRIG NURSING ASSESSMENT: Last BM Date: 03/22/23 Bowel Sounds (All Quadrants): Active Justin Scale Score: 19 Vital Signs BP: 146/66 Temp: 36.7 ??C (98.1 ??F) Pulse: 63 Resp: 18 SpO2: 96 % No intake or output data in the 24 hours ending 03/25/23 1001 Adult Malnutrition Scoring Tool (MST) What diet do you follow at home?: NO SOLIDS ONLY LIQUIDS Have You Recently Lost Weight Without Trying?: Yes (Comment) How Much Weight Have You Lost?: 34 lb or more Have you been eating poorly because of a decreased appetite?: Yes Malnutrition Screening Tool (MST) Score: 5 Hunger Screen - Admission Within the past 12 months the food we bought just didn't last and we didn't have money to get more.: Never true Within the past 12 months we worried whether our food would run out before we got money to buy more.: Never true Anthropometrics Weight: 43.1 kg (95 lb) Admission Weight : 43.1 kg Weight Change: 0.00 kg (0.00 lbs) IBW/kg (Calculated) : 61.7 kg Height: 165.1 cm (5' 5 ) Weight in (lb) to have BMI = 25: 149.9 BMI (Calculated): 15.8 Wt Readings from Last 10 Encounters: 03/23/23 43.1 kg (95 lb) ESTIMATED NEEDS: . Dietary Orders (From admission, onward) Start Ordered 03/25/23 0001 NPO Diet Diet effective midnight 03/24/23 1626 03/24/23 1700 Oral Nutrition Supplements ([facility]) Select Supplement: Ensure - Butter Pecan, Ensure - Meagan, Ensure - Straw, Ensure - Van All Meals Question Answer Comment ([facility]) Select Supplement: Ensure - Butter Pecan ([facility]) Select Supplement: Ensure - Meagan ([facility]) Select Supplement: Ensure - Straw ([facility]) Select Supplement: Ensure - Van 03/24/23 1626 Allergies: Reviewed. IMPRESSION: Pt with dysphagia difficulty swallowing solid food but tolerating some liquids, 40 lb weight loss x1 year Pt is currently NPO waiting speech evaluation Per pt stated weight history severe weight loss of 29% x 1 year Per newest stated weight 44% weight loss Pt states about 7-8 months ago began to have problems swallowing recently started to spit up blood Has been unable to eat any solid food drinking 4 Ensure per day, coffee and tea every now and then states drinking four right before coming to hospital When asked how appetite was pt states I would have to say it is bad because I have not been eating and will choke if I eat any solid food Pt states UBW is 170-175 lbs weighed this 7-8 months ago Wt Readings from Last 15 Encounters: 03/23/23 43.1 kg (95 lb) Pt states having regular bowel movements Labs noted Calorie needs using 40 kcals/kg 1725 Protein needs using 1.5 gm/kg 65 Pt meets ASPEN criteria for refeeding risk ASPEN MALNUTRITION ASSESSMENT: Date of completion: 03/25/23 Pt with unintentional weight loss and inadequate energy intake ASPEN Malnutrition Assessment: ASPEN/AND Malnutrition Screening: Chronic illness or injury mild/moderate Chronic Illness/Injury Mild/Moderate Energy Intake: < 75% energy intake compared to estimated energy needs > (or equal to) 1 month Weight Loss: 20% in 12 months Body Fat: Mild/Moderate Muscle Mass: Mild/Moderate Patient Meets Criteria for Moderate Malnutrition: Yes Nutrition Focused Physical Exam: Subcutaneous Fat Loss Orbital Region - Surrounding the Eye: Somewhat hollow look, Slightly dark circles Cheek Region - Buccal Fat: Somewhat sunken appearance Muscle Loss [facility] - Temporalis Muscle: Slight depression Clavicle Bone Region - Pectoralis Major, Deltoid, Trapezius Muscles: Protruding, prominent bone Posterior Calf Region - Gastrocnemius Muscle: Thin, minimal to no muscle definition NUTRITION FOCUSED PHYSICAL EXAM: Completed. NUTRITION DIAGNOSIS: Nutrition Diagnosis 1: Inadequate oral intake Related to: Oral pharyngeal Evidenced by: Weight loss INTERVENTION(S): Summary: Initial assessment Monitor plan of care NUTRITION INITIATION Recommend diet. Per speech recommendations Start ensure plus high protein oral nutrition supplement. If diet advanced If significant electrolyte abnormalities occur with PO intake consider patient at significant risk and will provide additional recommendations. VITAMIN RECOMMENDATIONS Thiamine: 100mg daily (PO / PT / IV) daily x 7 days Vitamin B6 (pyridoxine): 100mg (IV/PO/PT) x 5 days Folic Acid: 1mg (PO/PT) x 7 days MVI / Vitamin: 1 tablet (PO/PT) daily LAB / MONITORING RECOMMENDATIONS BMP, Magnesium, Phosphorus Q 12 hours Decrease frequency once patient at goal oral intake x 24 hours and electrolytes stable (K+ > 3, Phos > 2, Mg >1.5) LFTS - Baseline and then daily x 3 days Baseline weight - weigh 2-3x / week ELECTROLYTE REPLETION RECOMMENDATIONS Replete electrolytes as indicated In patients with hypokalemia and hypomagnesaemia, replete Magnesium first FLUID RECOMMENDATIONS Take caution with IVF containing dextrose GOAL(S): Adequate nutrition to meet estimated needs by next assessment MONITORING/EVALUATION: Diet advancement GHT BROKER GHT BROKER GHT BROKER * Roland Villavicencio MD - 03/25/2023 10:01 AM CST Otolaryngology - Head & Neck Surgery Daily Progress Subjective Chief complaint: Chief Complaint Patient presents with Cyst 63M with newly detected oropharyngeal mass transferred from OSH for oral cavity bleeding. Received 1u pRBC. Currently hemostatic. Hgb drop 2 points at OSH - 7.9 here, receiving 1u pRBC. Hemostatic, no distress. 12m hemoptysis with eating; 60-lb weight loss, dysphagia to solids, stable for past couple of months on protein shakes; mild trismus over past 2 months Interval History: - AFVSS on RA. WBC 4.8 (4.7), Hgb 8 (8.3) - Breathing comfortably, no acute distress Objective VITALS, 24HR MIN/MAX: Temp Min: 36.6 ??C (97.9 ??F) Max: 37.1 ??C (98.8 ??F) Pulse Min: 63 Max: 68 BP Min: 132/61 Max: 154/66 Resp Min: 18 Max: 18 SpO2 Min: 96 % Max: 100 % I&O No intake/output data recorded. Net IO Since Admission: No IO data has been entered for this period [03/25/23 1001] Output by Drain (mL) 03/23/23 0700 - 03/23/23 1859 03/23/23 1900 - 03/24/23 0659 03/24/23 07 - 03/24/23 1859 03/24/23 1900 - 03/25/23 0659 03/25/23 0700 - 03/25/23 1001 Patient has no LDAs of requested type attached. Scheduled Continuous As needed [Held by Provider] escitalopram, 20 mg, oral, Daily [Held by Provider] lisinopriL, 10 mg, oral, Daily nicotine, 1 patch, transdermal, Daily sodium chloride 0.9%, 0.5-20 mL, intra-catheter, Q8H TJ acetaminophen, 650 mg, 650 mg at 03/25/23 0623 sodium chloride 0.9%, 30 mL lidocaine, 1 patch nortriptyline, 30 mg ondansetron ODT, 4 mg OR ondansetron, 4 mg oxyCODONE, 5 mg, 5 mg at 03/25/23 0805 polyethylene glycol, 17 g ramelteon, 8 mg, 8 mg at 03/23/23 2215 sodium chloride 0.9%, 0.5-20 mL Physical Exam: Vitals: 03/24/23 1219 03/24/23199903/25/23 0620 03/25/23 0733 BP: 132/61 154/66 146/66 BP Location: Left arm Left arm Left arm Patient Position: HOB 30 degrees HOB 30 degrees Pulse: 67 63 68 63 Resp: 18 18 18 Temp: 37.1 ??C (98.8 ??F) 36.6 ??C (97.9 ??F) 36.7 ??C (98.1 ??F) TempSrc: Oral Oral Oral SpO2: 100% 99% 96% 96% Weight: Height: General: awake, NAD. Head and Face: NC, AT. Face symmetric. Eyes: Sclera white, no injection or chemosis, no periorbital edema Ears: Normal external ears. No drainage Nose: Dorsum midline, no drainage Mouth: Trismus, no vision lesions in oral cavity, tongue is deviated by left base of tongue mass, no OC/OP bleeding, MMM, tolerating secretions Neck: Soft and flat CV: Extremities warm and well-perfused Pulm: Normal quiet breathing. No respiratory distress, stridor, or wheeze. Neuro: Regards, follows commands. AOx3. CN grossly intact; moving all extremities Lab/Radiology/Diagnostic Review: LABS 24 HOURS: Lab Results Component Value Date WBC 4.8 03/24/2023 HGB 8.6 (L) 03/25/2023 HCT 25.7 (L) 03/25/2023 LABPLAT 247 03/24/2023 ALT 19 03/23/2023 AST 38 03/23/2023 SODIUM 131 (L) 03/25/2023 POTASSIUM 4.0 03/25/2023 CHLORIDE 99 03/25/2023 BUNSER 12 03/25/2023 CO2 28 03/25/2023 CREATININE 0.49 (L) 03/25/2023 GLUCOSE 89 03/25/2023 CALCIUM 8.3 (L) 03/25/2023 PHOS 2.9 03/24/2023 MAGNESIUM 2.0 03/24/2023 PT 11.8 03/23/2023 INR 1.04 03/23/2023 No results found for: MICROBIOLOGY , DIRECTEXAM FL Modified Barium Swallow W Video Narrative: EXAMINATION: MODIFIED BARIUM SWALLOW HISTORY: Dysphagia. TECHNIQUE: This procedure was completed in conjunction with a Speech Language Pathologist. The patient was given barium of multiple different consistencies to swallow. Video fluoroscopy was employed during the exam. FINDINGS: Pharyngeal swallow function is abnormal. Penetration: Yes There is penetration of thin liquids. Penetration is not sensed. The penetrated material is cleared. Aspiration: Yes There is aspiration of thin liquids. Aspiration is sensed. The aspirated material is not cleared. Residue:Yes There is pharyngeal residue of puree. Residue is sensed. The residual material is inconsistently cleared. Other comments: None Impression: The swallowing mechanism is abnormal; see above comments. Please refer to the Speech Pathology procedure note for safe swallow recommendations as well as additional information regarding the oral-pharyngeal swallow function, plan of care, and recommended follow up. Dictated by: Jarocho Thao MD The radiology attending physician has personally reviewed this study, and had reviewed and/or edited this written report and agrees with it. Electronically signed by: Shila Matos M.D. Assessment/Plan Principal Problem: Oral mass Assessment: 63 y.o. male with oral cavity bleeding requiring transfusions in the setting of recently diagnosed left oropharyngeal mass. Scope and physical exam negative for source of bleeding. The mass is submucosal and hypomobile to the tongue musculature. We discussed that the next steps of his workup include tissue biopsy and additional imaging with a PET-CT. We deferred bedside biopsy due to trismus, decreased tongue mobility, and concern for hemostasis in setting of recent bleeding. CTA without evidence of active extravasation. Plan: - Plan for direct laryngoscopy and bronchoscopy with biopsy of mass. Pending OR timing today - Will plan to place NG tube in OR - NPO, ElenaVJonathan Villavicencio MD Otolaryngology - Head & Neck Surgery QUESTIONS: Weekdays daytime: [facility] Otolaryngology [facility] Consult New consults, after-hours & weekends: [facility] Otolaryngology [facility] Resident Primary/Night Float ENT scheduling line: [phone] (please include in discharge paperwork as needed) Cosigned by Amy Flores MD at 04/05/2023 7:26 AM FREIGHT BROKER GHT BROKER GHT BROKER * Imelda Tobias - 03/25/2023 8:08 AM CST Physical Therapy Physical Therapy Initial Assessment NOTE: This is a summary note for the zelaya assessments completed during the evaluation session. For full details, review chart review for all flowsheets documented on by this physical therapist on thisdate. Vital signs documented in vital signs flowsheet. Assessment Assessment Prognosis: Good Plan Plan Plan : Discharge PT Recommendation and Plan Recommendation/Plan PT Recommendation/Plan: Home with 24 hour supervision, Outpatient PT PT Frequency during current admission: One time visit (Discharge from this service) PT Evaluation Complete: Yes General Information General Chart Reviewed: Yes Session Type: Evaluation PT Received On: 03/25/23 Safe Environment: Arm band checked, Patient found in supine, Gait belt utilized for all out of bed mobility Subjective: Agreeable to Therapy Additional Pertinent History: HPI: 63M p/w hemoptysis PMH: HTN, active tobacco use, urinary retention, and newly found L oropharyngeal mass Family/Caregiver Present: No Physical Therapy-Patient Goal: Patient was agreeable to PT recommende POC. Prior Function Prior Function Level of [place]: Independent functional transfers, Independent with ambulation Lives With: Family (Adult niece and her family. Between his Son in law's brother and his ex-sister in law, the patient states he would have multimedia educational specialist assistance if he needed it.) Fall within the last 6 months: Yes Fall within the last 6 months comment: 2 (patient states that he passed out and fell.) Prior Function Comments: Patient reports that he was a modified independent household ambulator with a SC Home Living Home Living Type of Home: House Home Layout: Two level, Able to live on main level with bedroom/bathroom Home Access: Stairs to enter without rails Entrance Stairs-Rails: None Entrance Stairs-Number of Steps: 2 Home Mobility Equipment-Available: Single point cane Home Mobility Equipment-Currently Using: Single point cane Precautions Precautions Precautions: None Precaution Comments: PPE worn by SPT (glvoes, mask) Pain Pain Assessment Pain Assessment: 0-10 Pain Score: 6 Pain Interventions: RN Notified ([place] [place]) Cognition Cognition Arousal/Alertness: Alert Orientation : Oriented X4 (person, place, time, situation) Following Commands: Follows all commands and directions without difficulty Safety Judgment: Good awareness of safety precautions 6 Clicks Basic Mobility - 6 Click How much difficulty does the patient have: Turning over in bed: None How much difficulty does the patient currently have: Sitting down and standing up from a chair witharms?: None How much difficulty does the patient have: Moving from lying on back to sitting on the side of the bed?: None How much difficulty does the patient have: Moving to and from a bed to a chair including wheelchair?: A little How much help does the patient currently need: Walk in hospital room?: A little How much help from another person does the patient currently need: Climbing 3-5 steps with a railing?: A little Total 6 Click Score (range 6-24): 21 Score Interpretation: 21 Bed Mobility Bed Mobility Bed Mobility: Yes Bed Mobility 1 Bed Mobility From 1: Supine Bed Mobility Type 1: To and from Bed Mobility to 1: Edge of bed Level of Assistance 1: Modified Independent Bed Mobility Comments 1: HOB elevated and use of UE on rails Transfers Transfers Transfer: Yes Transfer 1 Transfer From 1: Sit Transfer Type 1: To and from Transfer to 1: Stand Technique 1: Sit to stand, Stand to sit Transfer Device 1: No device Transfer Level of Assistance 1: Independent Balance Static Sitting Balance Static Sitting-Balance Support: No upper extremity supported, Feet supported Static Sitting-Sitting Surface: Bed Static Sitting-Level of Assistance: Independent Static Standing Balance Static Standing-Balance Support: No upper extremity supported Static Standing-Standing Surface: Floor Static Standing-Level of Assistance: Independent Ambulation Ambulation Ambulation: Yes Ambulation 1 Distance (ft) 1: 150 Surface 1: Level tile Device 1: No device Assistance 1: Standby Assist Gait Deviations 1: Chiqui - decreased, Hip/knee flexion during swing phase - decreased Ambulation Comments 1: Assist for safety Stairs Stairs Stairs: Yes Stair Comments: Assist for safety Stairs Number of Stairs 1: 5 Rails 1: Right Device 1: No device Assistance 1: Standby Assist Curbs RLE Assessment RLE Assessment RLE Assessment: Within Functional Limits RLE Comments: AROM screen only LLE Assessment LLE Assessment LLE Assessment: Within Functional Limits LLE Comments: AROM screen only Equipment Used Safe Environment End of Session Safe Environment End of Therapy Session: Patient left supine in bed, Call light within reach, Overbed table within reach Other Comments Other Comments Other PT Comments: Discussed PT recommended POC and discharge and patient was agreeable. PT Goals Multi-Disciplinary Problems (from Physical Therapy) Active Problems Not on file Cosigned by Mercedes Calabrese, PT at 03/25/2023 2:32 PM FREIGHT BROKER GHT BROKER GHT BROKER * Erica Eli MD - 03/25/2023 6:57 AM CST Medicine Daily Progress Note Name: Aleksey Garcia Today: March 25, 2023 : 1960 Age: 63 y.o. male Admit: 03/23/2023 Bed: [id number] [facility] Daily Progress Subjective Mr. Garcia is a 63 y.o. male PMH HTN, active tobacco use, urinary retention, newly found L oropharyngeal mass, admitted 03/23/2023 2:31 PM for hemoptysis, hospital day 2. Interval History: NAEON. NPO @ [facility] for possible OR for biopsy and NG placement with ENT today. Reports mild GANDHI this AM that improved with APAP. Denies fevers, chills, n/v, CP, SOB, abdominal pain. Na lateral 133. Hgb stable at 8.6. Brief plan - OR with ENT for biopsy and NGT placement Scheduled Meds PRN Meds Infusions [Held by Provider] escitalopram, 20 mg, oral, Daily [Held by Provider] lisinopriL, 10 mg, oral, Daily nicotine, 1 patch, transdermal, Daily sodium chloride 0.9%, 0.5-20 mL, intra-catheter, Q8H TJ acetaminophen, 650 mg, Q4H PRN sodium chloride 0.9%, 30 mL, PRN lidocaine, 1 patch, Daily PRN nortriptyline, 30 mg, Nightly PRN ondansetron ODT, 4 mg, Q6H PRN Or ondansetron, 4 mg, Q6H PRN oxyCODONE, 5 mg, Q4H PRN polyethylene glycol, 17 g, Daily PRN ramelteon, 8 mg, Nightly PRN sodium chloride 0.9%, 0.5-20 mL, PRN sodium chloride 0.9%, 75 mL/hr, Last Rate: 75 mL/hr (03/24/23 0911) Objective Vitals: Most Recent : Vitals: 03/25/23619 BP: 154/66 Pulse: 68 Resp: 18 Temp: 36.6 ??C (97.9 ??F) SpO2: 96% 24hr Min/Max: Temp Min: 36.6 ??C (97.9 ??F) Max: 37.1 ??C (98.8 ??F) Pulse Min: 63 Max: 72 BP Min: 132/61 Max: 154/66 Resp Min: 18 Max: 20 SpO2 Min: 96 % Max: 100 % Most Recent: Vitals: 03/25/2320 BP: 154/66 Pulse: 68 Resp: 18 Temp: 36.6 ??C (97.9 ??F) SpO2: 96% No intake/output data recorded. No intake or output data in the 24 hours ending 03/25/23656 Net IO Since Admission: No IO data has been entered for this period [03/25/23656] Active Lines: Peripheral IV 03/23/23 20 G Right;Upper Forearm (Active) Peripheral IV Right (Active) Peripheral IV 03/24/23 20 G Anterior;Proximal;Right Forearm (Active) Peripheral IV 03/24/23 Left Antecubital (Active) Physical exam: Constitutional: Cachetic, chronically ill appearing Eyes: EOMI grossly intact. Anicteric, sclera non-injected ENT: NCAT, neck supple, dry oral mucosa, trismus, dried blood around nares Lungs: CTAB, Breathing comfortably on RA. Cardiovascular: RRR, normal S1 and S2. GI: Soft, NT/ND Skin: No rashes, lesions, or bruises to exposed skin areas MSK/Extremities: BLE non edematous, warm and well perfused Neuro: Alert, moving all extremities equally Lab/Diagnostic Review: Recent Results (from the past 36 hour(s)) Ferritin Collection Time: 03/23/23 10:28 PM Result Value Ref Range Ferritin 63 30 - 400 ng/mL HIV 1/2 Antibody plus p24 Antigen Blood Collection Time: 03/23/23 10:28 PM Specimen: Blood Result Value Ref Range HIV 1/2 ab + p24 ag Nonreactive Nonreactive Iron profile w/ IBC Collection Time: 03/23/23 10:28 PM Result Value Ref Range Iron 64 50 - 150 mcg/dL TIBC 304 250 - 400 mcg/dL Transferrin saturation 21 20 - 50 % Vitamin B12 Collection Time: 03/23/23 10:28 PM Result Value Ref Range Vitamin B12 386 230 - 1,250 pg/mL Phosphorus Collection Time: 03/23/23 10:28 PM Result Value Ref Range Phosphorus, pl 3.8 2.3 - 4.5 mg/dL Magnesium Collection Time: 03/23/23 10:28 PM Result Value Ref Range Magnesium 2.1 1.4 - 2.5 mg/dL Osmolality, blood Collection Time: 03/23/23 10:28 PM Result Value Ref Range Osmo 270 (L) 275 - 300 mOsm/kg CBC without differential Collection Time: 03/23/23 10:33 PM Result Value Ref Range WBC 4.7 3.8 - 9.9 K/cumm Hgb 8.8 (L) 13.0 - 17.5 g/dL Hct 26.0 (L) 38.9 - 50.3 % Plt 260 150 - 400 K/cumm MPV 9.1 9.1 - 12.3 fL RBC 2.83 (L) 4.30 - 5.80 M/cumm MCV 91.9 81.3 - 96.4 fL MCH 31.1 27.1 - 33.3 pg MCHC 33.8 32.3 - 35.7 g/dL RDW CV 13.5 11.1 - 14.9 % RDW SD 45.7 35.7 - 48.1 fL NRBC abs 0.00 0.00 - 0.01 K/cumm Hemoglobin and hematocrit Collection Time: 03/24/23 5:17 AM Result Value Ref Range Hgb 8.3 (L) 13.0 - 17.5 g/dL Hct 24.1 (L) 38.9 - 50.3 % Basic metabolic panel Collection Time: 03/24/23 5:17 AM Result Value Ref Range Sodium 133 (L) 135 - 145 mmol/L Potassium, pl 4.4 3.3 - 4.9 mmol/L Chloride 101 97 - 110 mmol/L CO2 27 22 - 32 mmol/L Anion gap 5 2 - 15 mmol/L BUN 19 6 - 25 mg/dL Creatinine 0.48 (L) 0.80 - 1.30 mg/dL Glucose 99 70 - 199 mg/dL Calcium 7.9 (L) 8.5 - 10.3 mg/dL Respiratory pathogen panel Nasopharyngeal Collection Time: 03/24/23 5:17 AM Specimen: Nasopharyngeal Result Value Ref Range Influenza A RNA Not Detected Not Detected Influenza B RNA Not Detected Not Detected RSV RNA Not Detected Not Detected COVID-19 RNA Not Detected Not Detected Coronavirus 229E RNA Not Detected Not Detected Coronavirus HKU1 RNA Not Detected Not Detected Coronavirus NL63 RNA Not Detected Not Detected Coronavirus OC43 RNA Not Detected Not Detected Adenovirus DNA Not Detected Not Detected Metapneumovirus RNA Not Detected Not Detected Rhinovirus/Enterovirus RNA Not Detected Not Detected Parainfluenza 1 RNA Not Detected Not Detected Parainfluenza 2 RNA Not Detected Not Detected Parainfluenza 3 RNA Not Detected Not Detected Parainfluenza 4 RNA Not Detected Not Detected B. pertussis DNA Not Detected Not Detected B. parapertussis DNA Not Detected Not Detected C. pneumoniae DNA Not Detected Not Detected M. pneumoniae DNA Not Detected Not Detected Potassium, whole blood Collection Time: 03/24/23 5:17 AM Result Value Ref Range Potassium, bld 4.4 3.3 - 4.9 mmol/L eGFR Collection Time: 03/24/23 5:17 AM Result Value Ref Range eGFR >90 >=60 mL/min/1.73 m2 Hemoglobin and hematocrit Collection Time: 03/24/23 3:00 PM Result Value Ref Range Hgb 8.3 (L) 13.0 - 17.5 g/dL Hct 24.9 (L) 38.9 - 50.3 % Magnesium Collection Time: 03/24/23 9:13 PM Result Value Ref Range Magnesium 2.0 1.4 - 2.5 mg/dL Phosphorus Collection Time: 03/24/23 9:13 PM Result Value Ref Range Phosphorus, pl 2.9 2.3 - 4.5 mg/dL CBC without differential Collection Time: 03/24/23 9:13 PM Result Value Ref Range WBC 4.8 3.8 - 9.9 K/cumm Hgb 8.0 (L) 13.0 - 17.5 g/dL Hct 24.4 (L) 38.9 - 50.3 % Plt 247 150 - 400 K/cumm MPV 9.2 9.1 - 12.3 fL RBC 2.58 (L) 4.30 - 5.80 M/cumm MCV 94.6 81.3 - 96.4 fL MCH 31.0 27.1 - 33.3 pg MCHC 32.8 32.3 - 35.7 g/dL RDW CV 14.0 11.1 - 14.9 % RDW SD 48.4 (H) 35.7 - 48.1 fL NRBC abs 0.00 0.00 - 0.01 K/cumm Basic metabolic panel Collection Time: 03/24/23 9:13 PM Result Value Ref Range Sodium 133 (L) 135 - 145 mmol/L Potassium, pl 4.4 3.3 - 4.9 mmol/L Chloride 100 97 - 110 mmol/L CO2 29 22 - 32 mmol/L Anion gap 4 2 - 15 mmol/L BUN 16 6 - 25 mg/dL Creatinine 0.50 (L) 0.80 - 1.30 mg/dL Glucose 102 70 - 199 mg/dL Calcium 8.5 8.5 - 10.3 mg/dL eGFR Collection Time: 03/24/23 9:13 PM Result Value Ref Range eGFR >90 >=60 mL/min/1.73 m2 I have reviewed the laboratory results. Imaging Results: FL Modified Barium Swallow W Video Narrative: EXAMINATION: MODIFIED BARIUM SWALLOW HISTORY: Dysphagia. TECHNIQUE: This procedure was completed in conjunction with a Speech Language Pathologist. The patient was given barium of multiple different consistencies to swallow. Video fluoroscopy was employed during the exam. FINDINGS: Pharyngeal swallow function is abnormal. Penetration: Yes There is penetration of thin liquids. Penetration is not sensed. The penetrated material is cleared. Aspiration: Yes There is aspiration of thin liquids. Aspiration is sensed. The aspirated material is not cleared. Residue:Yes There is pharyngeal residue of puree. Residue is sensed. The residual material is inconsistently cleared. Other comments: None Impression: The swallowing mechanism is abnormal; see above comments. Please refer to the Speech Pathology procedure note for safe swallow recommendations as well as additional information regarding the oral-pharyngeal swallow function, plan of care, and recommended follow up. Dictated by: Jarocho Thao MD The radiology attending physician has personally reviewed this study, and had reviewed and/or edited this written report and agrees with it. Electronically signed by: Shila Matos M.D. Assessment/Plan Mr. Garcia is a 63 y.o. male PMH HTN, active tobacco use, urinary retention, and newly found L oropharyngeal mass, admitted 03/23/2023 2:31 PM for hemoptysis, hospital day 2. #L Oropharyngeal Mass c/f Malignancy #Hemoptysis/Acute Blood Loss Anemia Worsening oral bleeding for past month, dysphagia, worse w/ solids. Also with 40 lb wt loss over past year. Pt went to OSH 03/[address] neck showed large L oropharyngeal mass along base of tongue, floor of mouth, GTS, lingual mandible. Was d/c'd home with plan to f/u with [facility]. On 03/23 developed another episode of hemoptysis, reports ~1pint. BPs elevated, normocardic, on room air. Hgb 9.5 (03/21)->7.6 on admission. CTA H&N with large ulcerative L oropharyngeal neck mass 7.2x4.3x3.3cm highly suspicious for malignancy such as SCC involving L parapharyngeal, data operations manager, submandibular, sublingual spaces with ossesous involvement of L mandible; no e/o active extravasation. CXR with L he midiaphragm, mild L basilar reticular nodular opacities c/f atelectasis vs bronchiolitis related toaspiration. - Hgb>7, T&S, coags wnl - ENT following - likely biopsy and NGT placement 03/25 - Pending biopsy -> Onc c/s - 03/24 STUBBER MBS, rec FLD without purees, liquid/crushed meds - Document Control Specialist c/s for malnutrition - s/p 1L NS. Continue NS IVF x24hr while NPO - Pain control: APAP, oxy PRN, IV if unable to swallow #Hyponatremia Na 127 on admission. Unclear chronicity. Likely hypotonic hypovolemic iso poor PO intake vs SIADH. - Sosm 270, more c/w hypotonic hypovolemia. S/p 1L NS bolus. Improvement to 133 on 03/24 - IVF x24hr while NPO - If no improvement, check urine lytes #Hyperkalemia- resolved K 5.2 on adm. Cr at baseline. Unclear etiology - Recheck 4.4 #HTN BPs elevated 140-170s/60-80s. - Continue home lisinopril 10mg daily - may need to uptitrate - 03/24 Somewhat labile, ranging from 100-180s. CTM #Active TUD 30 pack yr hx. Smokes 0.5ppd (cut back from 1ppd). 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 Reports urinating without difficulty - Monitor UOP and I/Os -> low threshold to bladder scan #Mood - Continue home escitalopram 20mg daily DVT ppx: holding iso acute bleeding, ambulate TID Diet: NPO for possible OR with ENT Code: Full Erica Eli MD Cosigned by Stanislaw Goel MD at 03/25/2023 5:30 PM FREIGHT BROKER GHT BROKER GHT BROKER Associated attestation - Stanislaw Goel MD - 03/25/2023 5:30 PM FREIGHT BROKER Attending Documentation I have seen and examined the patient on 03/25/23. I agree with the findings and plan of care as documented in the resident's/fellow's note. and as discussed with the resident/fellow. 63 yo hx of HTN, and 50 pack year smoking hx presents with new L oropharyngeal mass and hemoptysis and presented with fall. # Acute blood loss anemia causing syncope A: patient had sudden LOC after taking a nap. Had been having hemoptysis in the past several days. P: - Monitor H/H # Oropharyngeal mass with hemoptysis A: : Currently not building but no definitive dx. Patient aware it is likely cancer P: - ENT Biopsy today # Hyponatremia A: Appears hypovolemic and responded to fluids initially now sodium is 131. And urine osmolarity isover 400 indicating likely component of SIADH. He is asymptomatic P: stop IVF, will monitor sodium # Severe malnutrition A: not eating well due to dysphagia from his mass and per STUBBER can only have liquids P: - ENT to place NG Tube with biopsy - will discuss with them utility of putting in PEG given mass Supplementary Attestation Today, I am treating the patient for oropharyngeal mass, anemia, hyponatremia which is in severe exacerbation, progression, or experiencing treatment side effects as evidenced by hemoptysis, syncope and severe malnutrition , as described in the note. Stanislaw Goel MD * Libia Kwan, OT - 03/24/2023 11:44 AM CST Occupational Therapy Occupational Therapy Initial Assessment NOTE:This is a summary note for the zelaya assessments completed during the evaluation session. For full details, review chart review for all flowsheets documented on by this Occupational Therapist on this date. Vital signs documented in vital signs flowsheet. Assessment Assessment Problem List: Decreased endurance, Decreased balance, Decreased functional mobility, Decreased ADL independence, Decreased IADL independence Barriers to Discharge: Current Mobility Status, Current ADL Status Barrier Comments: fall risk Plan Plan Plan: Plan of care initiated, If this is the last note, consider this the discharge summary OT Recommendation and Plan Recommendation/Plan OT Recommendation: Care Home Facility Patient at high risk for: Falls, Injury due to decreased ability to care for self, Injury due to reduced functional status, Injury due to balance deficits, Injury at home as patient has not returned to prior level of function Recommend SNF due to: Risk of injury at home, Unable to safely care for self in the home, Skilled therapy needed to address care for self in the home, Skilled therapy needed to address functional deficits, Skilled therapy needed for patient to return to prior level of independence OT Frequency during current admission: 2-3x/wk Treatment/Interventions during current admission: ADL/IADL retraining, Balance Training, Bed mobility, Endurance training, Functional activity, Functional mobility training, Functional transfer training, Strengthening, Therapeutic activity, Therapeutic exercise, Transfer training OT - Next Appointment: 03/28/23 OT Evaluation Complete: Yes General Information General Chart Reviewed: Yes Session Type: Evaluation OT Received On: 03/24/23 Safe Environment: Arm band checked, Patient found in supine, Gait belt utilized for all out of bed mobility (HOB elevated) Subjective: Agreeable to Therapy Family/Caregiver Present: No Occupational Therapy-Patient Goal: Pt agreeable to acute OT goals Precautions Home Living Home Living Type of Home: House Home Layout: Multi-level Home Access: Level entry Bathroom Shower/Tub: Tub/shower unit Bathroom Toilet: Standard Home Mobility Equipment-Available: Single point cane Home Mobility Equipment-Currently Using: Single point cane (Pt reports he sometimes uses SPC, depending on how he is feeling) Prior Function Prior Function Level of [place]: Independent with ADLs, Independent functional transfers, Independent with ambulation Lives With: Family (Pt reports he is currently living with his niece and her family) Receives Help From: Family (FT assist from family) Driving: No Mode of Transportation: Driven by others ADL Assistance: Independent Vocational/Occupation: Retired Fall within the last 6 months: Yes Fall within the last 6 months comment: Pt reports he passed out on Tuesday, leading to a fall Activities of Daily Living Grooming Grooming: Where assessed: Standing at sink Grooming: Level of assistance: Contact Guard Assist Grooming: Assistance with: Safety LE Dressing LE Dressing: Where assessed: Sitting, Standing LE Dressing: Level of assistance: Minimum Assist LE Dressing: Assistance with: Safety, Other (Comment), Requires assistive device for steadying (balance) Toilet Transfers Toilet Transfer From: Bed Toilet Transfer Type: To and from Toilet Transfer to: Standard toilet Toilet Transfer Technique: Ambulating Toilet Transfer: Equipment: Single point cane, Grab bar Toilet Transfers: Minimal assistance Toilet Transfers Comments: Min A for balance in ambulation. CGA for sit/stand and stand/sit Pain Pain Assessment Pain Assessment: 0-10 Pain Score: 4 Pain Location: Head (headache) Pain Interventions: RN Notified (ANGELITA Chilel) Cognition Cognition Arousal/Alertness: Alert, Appropriate responses to stimuli Attention Span: Appears intact Memory: Appears intact Current communication: Appears Intact Orientation : Oriented X4 (person, place, time, situation) Following Commands: Follows all commands and directions without difficulty Safety Judgment: Good awareness of safety precautions Awareness of Errors: Decreased awareness of errors, Assistance required to identify errors made, Assistance required to correct errors made Insight: Fully aware of deficits Problem Solving: Assistance required to identify errors made, Assistance required to generate solutions Compliance/Behavior: Easy to engage Short Blessed Test What year is it now?: Correct What month is it now?: Correct Repeat this name and address after me: Alek Tolentino [address] [place] [address] Without looking at the clock, tell me what time it is: Correct-within one hour Count aloud backwards from 20-1: 0 Errors Say the months of the year backwards in reverse order: 2 Errors Repeat the name and address I asked you to remember: 1 Error Short Blessed Total Score: 6 Short Blessed Comments: Questionable impairment 6 Clicks Daily Activity - 6 Clicks Putting on and taking off regular lower body clothing: A Little Bathing: A lot Toileting: A little Putting on and taking off upper body clothing: A Little Personal Grooming: A little Eating Meals: None Total Score (range 6-24): 18 Score Interpretation: 18 Balance Static Sitting Balance Static Sitting-Balance Support: No upper extremity supported, Feet supported Static Sitting-Sitting Surface: Bed Static Sitting-Level of Assistance: Independent Dynamic Sitting Balance Dynamic Sitting-Balance Support: No upper extremity supported, Feet supported Dynamic Sitting-Balance: Lateral lean, Forward lean, Reaching for objects Dynamic Sitting-Sitting Surface: Bed Dynamic Sitting-Level of Assistance: Distant supervision Dynamic Sitting-Comments: safety Static Standing Balance Static Standing-Balance Support: Unilateral upper extremity supported (SPC) Static Standing-Standing Surface: Floor Static Standing-Level of Assistance: Contact guard Static Standing-Comment/# of Minutes: balance and safety Dynamic Standing Balance Dynamic Standing-Balance Support: Unilateral upper extremity supported (SPC) Dynamic Standing-Balance: Lateral lean, Forward lean, Reaching for objects Dynamic Standing-Standing Surface: Floor Dynamic Standing-Level of Assistance: Minimum assistance Dynamic Standing-Comments: balance and safety Transfers Transfers Transfer: Yes Transfer 1 Transfer From 1: Sit Transfer Type 1: To and from Transfer to 1: Stand Technique 1: Sit to stand, Stand to sit Transfer Device 1: Single point cane Transfer Level of Assistance 1: Contact Guard Assist Trials/Comments 1: balance and safety Bed Mobility Bed Mobility Bed Mobility: Yes Bed Mobility 1 Bed Mobility From 1: Supine (HOB elevated) Bed Mobility Type 1: To and from Bed Mobility to 1: Edge of bed Level of Assistance 1: Standby Assist Bed Mobility Comments 1: safety RUE Assessment RUE Assessment RUE Assessment: Within Functional Limits LUE Assessment LUE Assessment LUE Assessment: Within Functional Limits Safe Environment End of Session Safe Environment End of Therapy Session: Patient left supine in bed, Call light within reach, Overbed table within reach (HOB elevated) Other Comments OT Goals Multi-Disciplinary Problems (from Occupational Therapy) Active Problems Problem: Dressings Lower Extremities Start Date: 03/24/23 Goal Start Date Expected End Date End Date STG - Patient will complete lower body dressing with SBA 03/24/23 04/07/23 -- Problem: Grooming Start Date: 03/24/23 Goal Start Date Expected End Date End Date STG - Patient will complete grooming with dist spv 03/24/23 04/07/23 -- Problem: Transfers Start Date: 03/24/23 Goal Start Date Expected End Date End Date STG - Patient will perform toilet transfer with SBA with AD PRN 03/24/23 04/07/23 -- Problem: OT Misc Start Date: 03/24/23 Goal Start Date Expected End Date End Date OT LTG - Pt will complete ADL routine and related transfers with mod I 03/24/23 04/21/23 -- GHT BROKER * Erica Eli MD - 03/24/2023 7:43 AM CST Medicine Daily Progress Note Name: Aleksey Garcia Today: March 24, 2023 : 1960 Age: 63 y.o. male Admit: 03/23/2023 Bed: [id number] [facility] Daily Progress Subjective Mr. Garcia is a 63 y.o. male PMH HTN, active tobacco use, urinary retention, newly found L oropharyngeal mass, admitted 03/23/2023 2:31 PM for hemoptysis, hospital day 1. Interval History: NAEON. Hemoptysis has subsided. Productive cough has been stable for several months but slight worsening ON. Endorses persistent fatigue. Denies f/c, n/v, CP, SOB, abdominal pain. Reports that he has been able to urinate without difficulty. Scheduled Meds PRN Meds Infusions escitalopram, 20 mg, oral, Daily lisinopriL, 10 mg, oral, Daily nicotine, 1 patch, transdermal, Daily sodium chloride 0.9%, 0.5-20 mL, intra-catheter, Q8H TJ acetaminophen, 650 mg, Q4H PRN sodium chloride 0.9%, 30 mL, PRN lidocaine, 1 patch, Daily PRN nortriptyline, 30 mg, Nightly PRN ondansetron ODT, 4 mg, Q6H PRN Or ondansetron, 4 mg, Q6H PRN oxyCODONE, 5 mg, Q4H PRN polyethylene glycol, 17 g, Daily PRN ramelteon, 8 mg, Nightly PRN sodium chloride 0.9%, 0.5-20 mL, PRN sodium chloride 0.9%, 75 mL/hr Objective Vitals: Most Recent : Vitals: 03/24/23 0700 BP: 134/60 Pulse: 72 Resp: 20 Temp: 36.9 ??C (98.4 ??F) SpO2: 97% 24hr Min/Max: Temp Min: 36.1 ??C (96.9 ??F) Max: 36.9 ??C (98.4 ??F) Pulse Min: 62 Max: 100 BP Min: 90/50 Max: 181/80 Resp Min: 18 Max: 20 SpO2 Min: 89 % Max: 100 % Most Recent: Vitals: 03/24/23 0700 BP: 134/60 Pulse: 72 Resp: 20 Temp: 36.9 ??C (98.4 ??F) SpO2: 97% No intake/output data recorded. No intake or output data in the 24 hours ending 03/24/23 0856 Net IO Since Admission: No IO data has been entered for this period [03/24/23 0856] Active Lines: Peripheral IV 03/23/23 20 G Right;Upper Forearm (Active) Physical exam: Constitutional: Cachetic, chronically ill appearing Eyes: EOMI grossly intact. Anicteric, sclera non-injected ENT: NCAT, neck supple, dry oral mucosa, trismus, dried blood around nares Lungs: CTAB, Breathing comfortably on RA. Cardiovascular: RRR, normal S1 and S2. GI: Soft, NT/ND Skin: No rashes, lesions, or bruises to exposed skin areas MSK/Extremities: BLE non edematous, warm and well perfused Neuro: Alert, moving all extremities equally Lab/Diagnostic Review: Recent Results (from the past 36 hour(s)) Prepare RBC: 1 Units Collection Time: 03/23/23 2:33 PM Result Value Ref Range Product code [id number] Unit Number [id number] Product Blood Type APOS Dispense Status PRESUMED TRANSFUSED CBC with auto differential Collection Time: 03/23/23 2:44 PM Result Value Ref Range WBC 6.0 3.8 - 9.9 K/cumm Hgb 7.9 (L) 13.0 - 17.5 g/dL Hct 23.3 (L) 38.9 - 50.3 % Plt 247 150 - 400 K/cumm MPV 8.8 (L) 9.1 - 12.3 fL RBC 2.51 (L) 4.30 - 5.80 M/cumm MCV 92.8 81.3 - 96.4 fL MCH 31.5 27.1 - 33.3 pg MCHC 33.9 32.3 - 35.7 g/dL RDW CV 12.7 11.1 - 14.9 % RDW SD 43.0 35.7 - 48.1 fL NRBC abs 0.00 0.00 - 0.01 K/cumm Comprehensive metabolic panel Collection Time: 03/23/23 2:44 PM Result Value Ref Range Sodium 127 (L) 135 - 145 mmol/L Potassium, pl 5.2 (H) 3.3 - 4.9 mmol/L Chloride 94 (L) 97 - 110 mmol/L CO2 28 22 - 32 mmol/L Anion gap 5 2 - 15 mmol/L BUN 27 (H) 6 - 25 mg/dL Creatinine 0.48 (L) 0.80 - 1.30 mg/dL Glucose 114 70 - 199 mg/dL Calcium 8.5 8.5 - 10.3 mg/dL Bilirubin, total 0.2 0.1 - 1.2 mg/dL Protein, pl 6.3 (L) 6.5 - 8.5 g/dL Albumin 3.4 (L) 3.5 - 5.0 g/dL Alk phos 73 40 - 130 Units/L ALT 19 7 - 55 Units/L AST 38 10 - 50 Units/L Type and screen Collection Time: 03/23/23 2:44 PM Result Value Ref Range Tam, indirect Negative ABO Rh A Positive Protime-INR Collection Time: 03/23/23 2:44 PM Result Value Ref Range PT 11.8 10.3 - 13.7 sec INR 1.04 0.90 - 1.20 aPTT Collection Time: 03/23/23 2:44 PM Result Value Ref Range aPTT 28 28 - 38 sec Troponin I high-sensitivity series (baseline, 2hr, 4hr, 6hr) Collection Time: 03/23/23 2:44 PM Result Value Ref Range Trop I hs 6 <=35 ng/L Differential, auto Collection Time: 03/23/23 2:44 PM Result Value Ref Range Neutrophil abs 4.8 1.5 - 6.5 K/cumm Imm gran abs 0.0 0.0 - 0.1 K/cumm Lymphocyte abs 0.6 (L) 0.8 - 3.3 K/cumm Monocyte abs 0.6 0.2 - 0.8 K/cumm Eosinophil abs 0.0 0.0 - 0.5 K/cumm Basophil abs 0.0 0.0 - 0.1 K/cumm Neutrophil pct 79.0 % Imm gran pct 0.7 % Lymphocyte pct 10.4 % Monocyte pct 9.3 % Eosinophil pct 0.3 % Basophil pct 0.3 % eGFR Collection Time: 03/23/23 2:44 PM Result Value Ref Range eGFR >90 >=60 mL/min/1.73 m2 Check Sample Collection Time: 03/23/23 4:12 PM Result Value Ref Range ABO Rh A Positive Hemoglobin and hematocrit Collection Time: 03/23/23 4:12 PM Result Value Ref Range Hgb 7.6 (L) 13.0 - 17.5 g/dL Hct 22.5 (L) 38.9 - 50.3 % Ferritin Collection Time: 03/23/23 10:28 PM Result Value Ref Range Ferritin 63 30 - 400 ng/mL HIV 1/2 Antibody plus p24 Antigen Blood Collection Time: 02/14/24 10:28 PM Specimen: Blood Result Value Ref Range HIV 1/2 ab + p24 ag Nonreactive Nonreactive Iron profile w/ IBC Collection Time: 03/23/23 10:28 PM Result Value Ref Range Iron 64 50 - 150 mcg/dL TIBC 304 250 - 400 mcg/dL Transferrin saturation 21 20 - 50 % Vitamin B12 Collection Time: 03/23/23 10:28 PM Result Value Ref Range Vitamin B12 386 230 - 1,250 pg/mL Phosphorus Collection Time: 03/23/23 10:28 PM Result Value Ref Range Phosphorus, pl 3.8 2.3 - 4.5 mg/dL Magnesium Collection Time: 03/23/23 10:28 PM Result Value Ref Range Magnesium 2.1 1.4 - 2.5 mg/dL Osmolality, blood Collection Time: 03/23/23 10:28 PM Result Value Ref Range Osmo 270 (L) 275 - 300 mOsm/kg CBC without differential Collection Time: 03/23/23 10:33 PM Result Value Ref Range WBC 4.7 3.8 - 9.9 K/cumm Hgb 8.8 (L) 13.0 - 17.5 g/dL Hct 26.0 (L) 38.9 - 50.3 % Plt 260 150 - 400 K/cumm MPV 9.1 9.1 - 12.3 fL RBC 2.83 (L) 4.30 - 5.80 M/cumm MCV 91.9 81.3 - 96.4 fL MCH 31.1 27.1 - 33.3 pg MCHC 33.8 32.3 - 35.7 g/dL RDW CV 13.5 11.1 - 14.9 % RDW SD 45.7 35.7 - 48.1 fL NRBC abs 0.00 0.00 - 0.01 K/cumm Hemoglobin and hematocrit Collection Time: 03/24/23 5:17 AM Result Value Ref Range Hgb 8.3 (L) 13.0 - 17.5 g/dL Hct 24.1 (L) 38.9 - 50.3 % Basic metabolic panel Collection Time: 03/24/23 5:17 AM Result Value Ref Range Sodium 133 (L) 135 - 145 mmol/L Potassium, pl 4.4 3.3 - 4.9 mmol/L Chloride 101 97 - 110 mmol/L CO2 27 22 - 32 mmol/L Anion gap 5 2 - 15 mmol/L BUN 19 6 - 25 mg/dL Creatinine 0.48 (L) 0.80 - 1.30 mg/dL Glucose 99 70 - 199 mg/dL Calcium 7.9 (L) 8.5 - 10.3 mg/dL Respiratory pathogen panel Nasopharyngeal Collection Time: 03/24/23 5:17 AM Specimen: Nasopharyngeal Result Value Ref Range Influenza A RNA Not Detected Not Detected Influenza B RNA Not Detected Not Detected RSV RNA Not Detected Not Detected COVID-19 RNA Not Detected Not Detected Coronavirus 229E RNA Not Detected Not Detected Coronavirus HKU1 RNA Not Detected Not Detected Coronavirus NL63 RNA Not Detected Not Detected Coronavirus OC43 RNA Not Detected Not Detected Adenovirus DNA Not Detected Not Detected Metapneumovirus RNA Not Detected Not Detected Rhinovirus/Enterovirus RNA Not Detected Not Detected Parainfluenza 1 RNA Not Detected Not Detected Parainfluenza 2 RNA Not Detected Not Detected Parainfluenza 3 RNA Not Detected Not Detected Parainfluenza 4 RNA Not Detected Not Detected B. pertussis DNA Not Detected Not Detected B. parapertussis DNA Not Detected Not Detected C. pneumoniae DNA Not Detected Not Detected M. pneumoniae DNA Not Detected Not Detected Potassium, whole blood Collection Time: 03/24/23 5:17 AM Result Value Ref Range Potassium, bld 4.4 3.3 - 4.9 mmol/L eGFR Collection Time: 03/24/23 5:17 AM Result Value Ref Range eGFR >90 >=60 mL/min/1.73 m2 I have reviewed the laboratory results. Imaging Results: CTA Head Neck W WO Contrast Narrative: EXAMINATION: 1. Computed tomography angiography (CTA) of the head without and with contrast 2. Computed tomography angiography (CTA) of the neck with contrast HISTORY: Bleeding left oropharyngeal neck mass. TECHNIQUE: CT of the head was performed with images acquired from skull base to vertex without intravenous contrast. Computed tomographic angiography was then obtained from the aortic arch to the vertex following the uneventful administration of intravenous contrast. 3D images were generated on a dedicated workstation. Contrast information: 92 mL Optiray-350 COMPARISON: None Available. FINDINGS: HEAD: There is symmetric periventricular white matter hypoattenuation which is nonspecific and likely represents chronic small vessel disease. There is no acute intracranial hemorrhage. Ventricles are of normal size and morphology. No mass effect or midline shift is present. The leblanc-white matter differentiation is normal. The visualized portions of the orbits are normal. The visualized portions of the mastoids are normal. Moderate left maxillary mucosal sinus thickening. No fractures are identified. NECK: There is a large ill-defined and infiltrative neck mass centered in the left oropharynx extending to the left data operations manager and left submandibular spaces as well as the left sublingual space. Mass appears ulcerative along its oropharyngeal surface. Mass extends into the left submandibular space and invades into the left mandible with associated osseous erosion, series 7 image 355. Mass measures up to 7.2 x 4.3 x 3.3 cm. Multiple branches of the left external carotid artery course through this mass, including the ascending pharyngeal and lingual branches. No evidence of active arterial extravasation. Mild stepwise anterolisthesis of C3 on C4 and C4 on C5 and C5 on C6. Degenerative disease from C5 to C7. Mild spinal canal stenosis secondary discussed by complexes at C5-C6 and C6-C7. Up to severe left C4-C5 neuroforaminal stenosis. Multilevel facet arthropathy. Limited examination of the superior thorax shows centrilobular emphysema. CTA: The visualized aortic arch appears normal with normal configuration of the great vessels. The innominate artery and both subclavian arteries are normal in course and caliber. Common carotid arteries are normal in course and caliber with mild atherosclerotic calcifications at the bilateral bifurcations without hemodynamically significant stenosis. The course and caliber of the internal carotid arteries in the neck are normal. Involvement of the left external carotid artery branches as detailed above. No areas of atherosclerotic narrowing or filling defects are identified. The visualized course and caliber of the internal carotid arteries in the head are normal. No areas of atherosclerotic narrowing or filling defects are identified. The [id number] is complete. The anterior and middle cerebral arteries are normal. The vertebral arteries are codominant. The basilar artery is normal. The posterior cerebral arteries are normal. There is no aneurysm or vascular malformation identified. No angiographic spot sign. Impression: Large ulcerative left oropharyngeal neck mass highly suspicious for malignancy such as squamous cell carcinoma involving the left parapharyngeal, data operations manager, submandibular, and sublingual spaces with osseous involvement of the left mandible. Multiple branches of the left external carotid artery including the ascending pharyngeal and lingual branches course through this mass without evidence of active arterial extravasation. Dictated by: Tico Zarco MD The radiology attending physician has personally reviewed this study, and had reviewed and/or edited this written report and agrees with it. Electronically signed by: Todd Gonzales MD XR Chest 1 View Narrative: EXAMINATION: 1 view chest radiograph Impression: No comparison available. Hyperinflated lungs. Mildly elevated left hemidiaphragm with mild left basilar reticular nodular opacities which may represent atelectasis vs bronchiolitis related to aspiration. No pulmonary edema. No pleural effusion or pneumothorax. Normal cardiomediastinal silhouette. Dictated by: Yolanda Penn MD The radiology attending physician has personally reviewed this study, and had reviewed and/or edited this written report and agrees with it. Electronically signed by: Marisol Wolf M.D. ECG 12 lead Cuba Yoder MD 03/23/2023 3:40 PM ECG 12 lead Date/Time: 03/23/2023 3:38 PM Performed by: Cuba Yoder MD Authorized by: Winsome Black MD Rate: ECG rate: 73 ECG rate assessment: normal Rhythm: Rhythm: sinus rhythm QRS: QRS axis: Left QRS intervals: Wide Conduction: Conduction: abnormal Abnormal conduction: non-specific intraventricular conduction delay ST segments: ST segments: Normal T waves: T waves: inverted Inverted: V4, V5, V6, V3, I and aVL Previous ECG: Previous ECG: Unavailable Interpretation: Interpretation: non-specific Recommended Follow-up: Recommended follow up: further workup in the ED Assessment/Plan Mr. Garcia is a 63 y.o. male PMH HTN, active tobacco use, urinary retention, and newly found L oropharyngeal mass, admitted 03/23/2023 2:31 PM for hemoptysis, hospital day 1. #L Oropharyngeal Mass c/f Malignancy #Hemoptysis/Acute Blood Loss Anemia Worsening oral bleeding for past month, dysphagia, worse w/ solids. Also with 40 lb wt loss over past year. Pt went to OSH 03/[address] neck showed large L oropharyngeal mass along base of tongue, floor of mouth, GTS, lingual mandible. Was d/c'd home with plan to f/u with [facility]. On 03/23 developed another episode of hemoptysis, reports ~1pint. BPs elevated, normocardic, on room air. Hgb 9.5 (03/21)->7.6 on admission. CTA H&N with large ulcerative L oropharyngeal neck mass 7.2x4.3x3.3cm highly suspicious for malignancy such as SCC involving L parapharyngeal, data operations manager, submandibular, sublingual spaces with ossesous involvement of L mandible; no e/o active extravasation. CXR with L he midiaphragm, mild L basilar reticular nodular opacities c/f atelectasis vs bronchiolitis related toaspiration. - ENT following - no acute intervention, f/u biopsy plan - Hgb>7, T&S, coags wnl - If actively bleeding, call ENT vs IR for embolization - Pending biopsy -> Onc c/s - NPO, STUBBER c/s for dysphagia - MBS on 03/25 - Document Control Specialist c/s for malnutrition - s/p 1L NS. Continue NS IVF x24hr while NPO - Pain control: APAP, oxy PRN, IV if unable to swallow #Hyponatremia Na 127 on admission. Unclear chronicity. Likely hypotonic hypovolemic iso poor PO intake vs SIADH. - Sosm 270, more c/w hypotonic hypovolemia. S/p 1L NS bolus. Improvement to 133 on 03/24 - IVF x24hr while NPO - If no improvement, check urine lytes #Hyperkalemia- resolved K 5.2 on adm. Cr at baseline. Unclear etiology - Recheck 4.4 #HTN BPs elevated 140-170s/60-80s. - Continue home lisinopril 10mg daily - may need to uptitrate - 03/24 Somewhat labile, ranging from 100-180s. CTM #Active TUD 30 pack yr hx. Smokes 0.5ppd (cut back from 1ppd). 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 Reports urinating without difficulty - Monitor UOP and I/Os -> low threshold to bladder scan #Mood - Continue home escitalopram 20mg daily DVT ppx: holding iso acute bleeding, ambulate TID Diet: NPO Code: Full Erica Eli MD Cosigned by Stanislaw Goel MD at 03/24/2023 1:28 PM FREIGHT BROKER GHT BROKER GHT BROKER Associated attestation - Stanislaw Goel MD - 03/24/2023 1:28 PM FREIGHT BROKER Attending Documentation I have seen and examined the patient on 03/24/23. I agree with the findings and plan of care as documented in the resident's/fellow's note. and as discussed with the resident/fellow. 63 yo hx of HTN, and 50 pack year smoking hx presents with new L oropharyngeal mass and hemoptysis and presented with fall. # Acute blood loss anemia causing syncope A: patient had sudden LOC after taking a nap. Had been having hemoptysis in the past several days. Differential likely is due to blood loss and dehydration given his low sodium. Although sudden nature of fall, calls into question possible cardiac causes though less likely P: - Monitor H/H - Would check echo # Oropharyngeal mass with hemoptysis A: : Currently not building but no definitive dx. Patient aware it is likely cancer P: - will discuss with ENT timing of bx and possible treatment of mass given his ongoing hemoptysis # Hyponatremia A: Appears hypovolemic and responded to fluids P: will continue IVF and recheck sodium # Severe malnutrition A: not eating well due to dysphagia from his mass P: - nutrition consult - STUBBER , question if he might benefit from PEG. Will await ENT input on mass and then discuss need for PEG in terms of surgical intervention and optimization of his nutrition status prior to that surgery Supplementary Attestation Today, I am treating the patient for oropharyngeal mass, anemia, hyponatremia which is in severe exacerbation, progression, or experiencing treatment side effects as evidenced by hemoptysis, syncope and severe malnutrition , as described in the note. Stanislaw Goel MD documented in this encounter H&P Notes * Selina Law MD - 03/23/2023 7:51 PM CST History and Physical Medicine FIRM Name: Aleksey Garcia Today: March 23, 2023 : 1960 Age: 63 y.o. male Subjective Chief Complaint: hemoptysis HPI: Mr. Aleksey Garcia is a 63yo male with PMH HTN, active tobacco use, urinary retention, and newly found L oropharyngeal mass presenting with hemoptysis. Patient is somewhat a difficult historian in terms of timeline of events. He states that over the past year he's noticed a 40 lb weight loss and increasing difficulty with swallowing solids (okay with liquids), as well as a month of worsening N/V, and intermittent hemoptysis. The hemoptysis used to occur intermittently in small amounts (worse with solids) but acutely worsened last weekend. He presented to an OSH ([facility]) on 03/21/23 where they found a large L oropharyngeal mass on CT neck. He was discharged home with plan to f/u with [facility] ENT outpatient. However earlier today he had another episode of hemoptysis reporting around 1 pint of blood loss so he came to the ER. Six months ago he moved from [place] to [place], [place] where he lives with his daughter and niece's family. Due to the move, there was some delay in establishing with a new PCP here. He first saw his PCP here last month where patient states he mentioned the dysphagia but at the time was also dealing with urinary retention requiring a glasgow (since removed), and he says they were focusing on thebladder first. However, last weekend the bleeding became acutely worse as above. In the ER, patient was afebrile, normocardic, BPs elevated 140-170s/60-80s, satting 100% on room air. Hgb here of 7.9->7.6 (reportedly 9.5 at OSH on 03/21). Other labs s/f Na 127 (unclear chronicity), K 5.2, Cr 0.48, WBC nl, Plt nl, PT/INR/PTT wnl, trop neg, EKG w/ NSR, TWIs V3-V5, nonspecific intraventricular conduction delay. CTA H&N w/ large ulcerative L oropharyngeal neck mass 7.2x4.3x3.3cm highly s/f malignancy such as SCC involving L parapharyngeal, data operations manager, submandibular, sublingual spaces w/ ossesous invovlment of L mandible; no e/o active extravasation. CXR with L hemidiaphragm, hyperinflation, mild L basilar reticular nodular opacities c/f atelectasis vs bronchiolitis rela yoselin to aspiration. Patient received 1u of pRBCs. ENT was consulted in the ER and recommended no acute intervention. Patient has a cough (clear sputum while in room), otherwise denies fevers, chills, night sweats, chest pain, SOB, neck/throat pain, abd pain, diarrhea, constipation, lightheadedness. No past medical history on file. No past surgical history on file. HOME MEDICATIONS : escitalopram (LEXAPRO) 20 mg tablet lidocaine (LIDODERM) 5 % lisinopriL (PRINIVIL,ZESTRIL) 10 mg tablet nortriptyline (PAMELOR) 10 mg capsule ondansetron (ZOFRAN) 4 mg tablet No Known Allergies Social History Tobacco Use Smoking status: Not on file Smokeless tobacco: Not on file Substance and Sexual Activity Drug use: Not on file Sexual activity: Not on file Alcohol Use: Not on file No family history on file. Family History reviewed and non-contributory. Review of Systems As per HPI otherwise negative. Objective Vitals: 24hr Min/Max: Temp Min: 36.1 ??C (96.9 ??F) Max: 36.9 ??C (98.4 ??F) Pulse Min: 62 Max: 100 BP Min: 90/50 Max: 181/80 Resp Min: 18 Max: 20 SpO2 Min: 89 % Max: 100 % Most Recent Vitals: Vitals: 03/23/230 BP: (!) 172/76 Pulse: 72 Resp: 18 Temp: 36.4 ??C (97.5 ??F) SpO2: 100% No intake or output data in the 24 hours ending 03/23/23 2300 Physical Exam: General: Cachectic, NAD. Head: Normocephalic, atraumatic Eyes: conjunctiva normal, anicteric sclera ENT: dry MM, no oral sores or mass seen, dried blood around nares Cardiac: RRR, normal S1/S2. No rubs, gallops, or murmurs Pulmonary: Normal respiratory effort. Clear to auscultation bilaterally, no rhonchi or wheezing or crackles Abdomen: Soft, nondistended, non-tender, + BS Extremities: Warm and well perfused, no edema Skin: skin turgor dry Neurologic: AOx3, moves all limbs spontaneously, no focal deficits Psychiatric: appropriate affect, interactive Lab/Diagnostic Review: Recent Results (from the past 24 hour(s)) Prepare RBC: 1 Units Collection Time: 03/23/23 2:33 PM Result Value Ref Range Product code [id number] Unit Number [id number] Product Blood Type APOS Dispense Status ISSUED CBC with auto differential Collection Time: 03/23/23 2:44 PM Result Value Ref Range WBC 6.0 3.8 - 9.9 K/cumm Hgb 7.9 (L) 13.0 - 17.5 g/dL Hct 23.3 (L) 38.9 - 50.3 % Plt 247 150 - 400 K/cumm MPV 8.8 (L) 9.1 - 12.3 fL RBC 2.51 (L) 4.30 - 5.80 M/cumm MCV 92.8 81.3 - 96.4 fL MCH 31.5 27.1 - 33.3 pg MCHC 33.9 32.3 - 35.7 g/dL RDW CV 12.7 11.1 - 14.9 % RDW SD 43.0 35.7 - 48.1 fL NRBC abs 0.00 0.00 - 0.01 K/cumm Comprehensive metabolic panel Collection Time: 03/23/23 2:44 PM Result Value Ref Range Sodium 127 (L) 135 - 145 mmol/L Potassium, pl 5.2 (H) 3.3 - 4.9 mmol/L Chloride 94 (L) 97 - 110 mmol/L CO2 28 22 - 32 mmol/L Anion gap 5 2 - 15 mmol/L BUN 27 (H) 6 - 25 mg/dL Creatinine 0.48 (L) 0.80 - 1.30 mg/dL Glucose 114 70 - 199 mg/dL Calcium 8.5 8.5 - 10.3 mg/dL Bilirubin, total 0.2 0.1 - 1.2 mg/dL Protein, pl 6.3 (L) 6.5 - 8.5 g/dL Albumin 3.4 (L) 3.5 - 5.0 g/dL Alk phos 73 40 - 130 Units/L ALT 19 7 - 55 Units/L AST 38 10 - 50 Units/L Type and screen Collection Time: 03/23/23 2:44 PM Result Value Ref Range Tam, indirect Negative ABO Rh A Positive Protime-INR Collection Time: 03/23/23 2:44 PM Result Value Ref Range PT 11.8 10.3 - 13.7 sec INR 1.04 0.90 - 1.20 aPTT Collection Time: 03/23/23 2:44 PM Result Value Ref Range aPTT 28 28 - 38 sec Troponin I high-sensitivity series (baseline, 2hr, 4hr, 6hr) Collection Time: 03/23/23 2:44 PM Result Value Ref Range Trop I hs 6 <=35 ng/L Differential, auto Collection Time: 03/23/23 2:44 PM Result Value Ref Range Neutrophil abs 4.8 1.5 - 6.5 K/cumm Imm gran abs 0.0 0.0 - 0.1 K/cumm Lymphocyte abs 0.6 (L) 0.8 - 3.3 K/cumm Monocyte abs 0.6 0.2 - 0.8 K/cumm Eosinophil abs 0.0 0.0 - 0.5 K/cumm Basophil abs 0.0 0.0 - 0.1 K/cumm Neutrophil pct 79.0 % Imm gran pct 0.7 % Lymphocyte pct 10.4 % Monocyte pct 9.3 % Eosinophil pct 0.3 % Basophil pct 0.3 % eGFR Collection Time: 03/23/23 2:44 PM Result Value Ref Range eGFR >90 >=60 mL/min/1.73 m2 Check Sample Collection Time: 03/23/23 4:12 PM Result Value Ref Range ABO Rh A Positive Hemoglobin and hematocrit Collection Time: 03/23/23 4:12 PM Result Value Ref Range Hgb 7.6 (L) 13.0 - 17.5 g/dL Hct 22.5 (L) 38.9 - 50.3 % I have reviewed the laboratory results. Imaging Results: CTA Head Neck W WO Contrast Narrative: EXAMINATION: 1. Computed tomography angiography (CTA) of the head without and with contrast 2. Computed tomography angiography (CTA) of the neck with contrast HISTORY: Bleeding left oropharyngeal neck mass. TECHNIQUE: CT of the head was performed with images acquired from skull base to vertex without intravenous contrast. Computed tomographic angiography was then obtained from the aortic arch to the vertex following the uneventful administration of intravenous contrast. 3D images were generated on a dedicated workstation. Contrast information: 92 mL Optiray-350 COMPARISON: None Available. FINDINGS: HEAD: There is symmetric periventricular white matter hypoattenuation which is nonspecific and likely represents chronic small vessel disease. There is no acute intracranial hemorrhage. Ventricles are of normal size and morphology. No mass effect or midline shift is present. The leblanc-white matter differentiation is normal. The visualized portions of the orbits are normal. The visualized portions of the mastoids are normal. Moderate left maxillary mucosal sinus thickening. No fractures are identified. NECK: There is a large ill-defined and infiltrative neck mass centered in the left oropharynx extending to the left data operations manager and left submandibular spaces as well as the left sublingual space. Mass appears ulcerative along its oropharyngeal surface. Mass extends into the left submandibular space and invades into the left mandible with associated osseous erosion, series 7 image 355. Mass measures up to 7.2 x 4.3 x 3.3 cm. Multiple branches of the left external carotid artery course through this mass, including the ascending pharyngeal and lingual branches. No evidence of active arterial extravasation. Mild stepwise anterolisthesis of C3 on C4 and C4 on C5 and C5 on C6. Degenerative disease from C5 to C7. Mild spinal canal stenosis secondary discussed by complexes at C5-C6 and C6-C7. Up to severe left C4-C5 neuroforaminal stenosis. Multilevel facet arthropathy. Limited examination of the superior thorax shows centrilobular emphysema. CTA: The visualized aortic arch appears normal with normal configuration of the great vessels. The innominate artery and both subclavian arteries are normal in course and caliber. Common carotid arteries are normal in course and caliber with mild atherosclerotic calcifications at the bilateral bifurcations without hemodynamically significant stenosis. The course and caliber of the internal carotid arteries in the neck are normal. Involvement of the left external carotid artery branches as detailed above. No areas of atherosclerotic narrowing or filling defects are identified. The visualized course and caliber of the internal carotid arteries in the head are normal. No areas of atherosclerotic narrowing or filling defects are identified. The [id number]-Diyciz is complete. The anterior and middle cerebral arteries are normal. The vertebral arteries are codominant. The basilar artery is normal. The posterior cerebral arteries are normal. There is no aneurysm or vascular malformation identified. No angiographic spot sign. Impression: Large ulcerative left oropharyngeal neck mass highly suspicious for malignancy such as squamous cell carcinoma involving the left parapharyngeal, data operations manager, submandibular, and sublingual spaces with osseous involvement of the left mandible. Multiple branches of the left external carotid artery including the ascending pharyngeal and lingual branches course through this mass without evidence of active arterial extravasation. Dictated by: Tico Zarco MD The radiology attending physician has personally reviewed this study, and had reviewed and/or edited this written report and agrees with it. Electronically signed by: Todd Gonzales MD XR Chest 1 View Narrative: EXAMINATION: 1 view chest radiograph Impression: No comparison available. Hyperinflated lungs. Mildly elevated left hemidiaphragm with mild left basilar reticular nodular opacities which may represent atelectasis vs bronchiolitis related to aspiration. No pulmonary edema. No pleural effusion or pneumothorax. Normal cardiomediastinal silhouette. Dictated by: Yolanda Penn MD The radiology attending physician has personally reviewed this study, and had reviewed and/or edited this written report and agrees with it. Electronically signed by: Marisol Wolf M.D. ECG 12 lead Cuba Yoder MD 03/23/2023 3:40 PM ECG 12 lead Date/Time: 03/23/2023 3:38 PM Performed by: Cuba Yoder MD Authorized by: Winsome Black MD Rate: ECG rate: 73 ECG rate assessment: normal Rhythm: Rhythm: sinus rhythm QRS: QRS axis: Left QRS intervals: Wide Conduction: Conduction: abnormal Abnormal conduction: non-specific intraventricular conduction delay ST segments: ST segments: Normal T waves: T waves: inverted Inverted: V4, V5, V6, V3, I and aVL Previous ECG: Previous ECG: Unavailable Interpretation: Interpretation: non-specific Recommended Follow-up: Recommended follow up: further workup in the ED I have independently reviewed and interpreted CMP, CBC, EKG, CXR, CTA head & neck, PT, INR, PTT Assessment & Plan: Mr. Aleksey Garcia is a 63yo male with PMH HTN, active tobacco use, urinary retention, and newly found L oropharyngeal mass presenting with hemoptysis. #L Oropharyngeal Mass c/f Malignancy #Hemoptysis/Acute Blood Loss Anemia Worsening oral bleeding for past month, dysphagia, worse w/ solids. Also with 40 lb wt loss over past year. Pt went to OSH 03/[address] neck showed large L oropharyngeal mass along base of tongue, floor of mouth, GTS, lingual mandible. Was d/c'd home with plan to f/u with [facility]. On 03/23 developed another episode of hemoptysis, reports ~1pint. BPs elevated, normocardic, on room air. Hgb 9.5 (2/12)->7.6 on admission. CTA H&N with large ulcerative L oropharyngeal neck mass 7.2x4.3x3.3cm highly suspicious for malignancy such as SCC involving L parapharyngeal, data operations manager, submandibular, sublingual spaces with ossesous involvement of L mandible; no e/o active extravasation. CXR with L he midiaphragm, mild L basilar reticular nodular opacities c/f atelectasis vs bronchiolitis related toaspiration. - ENT following - no acute intervention, Tbw them in AM regarding biopsy timing - Hgb>7, T&S, coags wnl - if actively bleeding, call ENT vs IR for embolization - pending biopsy -> Onc c/s - NPO at ma, STUBBER c/s for dysphagia - soda room operator c/s for malnutrition - 1L NS - Pain control: APAP, oxy PRN, IV if unable to swallow #Hyponatremia Na 127 on admission. Unclear chronicity. Likely hypotonic hypovolemic iso poor PO intake vs SIADH. - will give 1L IVF and recheck - added on Sosm - if no improvement, check urine lytes #Hyperkalemia K 5.2 on adm. Cr at baseline. Unclear etiology - Will recheck K. #HTN BPs elevated 140-170s/60-80s. - continue home lisinopril 10mg daily - may need to uptitrate #Active TUD 30 pack yr hx. Smokes 0.5ppd (cut back from 1ppd). - Nicotine patches - peer counselor on cessation #Hx of Urinary Retention Previously required [place] in past, since removed. - monitor UOP and I/Os -> low threshold to bladder scan #Mood - continue home escitalopram 20mg daily DVT ppx: holding iso acute bleeding, SCDs Diet: liquids, NPO at DE Code: Full Selina Law MD PGY-3, Internal Medicine Cosigned by Stanislaw Goel MD at 03/24/2023 1:20 PM FREIGHT BROKER GHT BROKER GHT BROKER GHT BROKER GHT BROKER GHT BROKER Associated attestation - Stanislaw Goel MD - 03/24/2023 1:20 PM FREIGHT BROKER ATTENDING DOCUMENTATION I have seen and examined the patient on 03/24/2023. I agree with the findings and plan of care as documented in the resident's/fellow's note. and as discussed with the resident/fellow. Stanislaw Goel MD documented in this encounter Procedure Notes * Seema Nadia Matt - 03/24/2023 1:36 PM CSTAssociated Order(s): STUBBER EVALUATE AND TREAT VIDEOFLUOROSCOPIC SWALLOW STUDY Speech-Language Pathology: Videofluoroscopic Study of Swallow (VFSS/MBS) HPI/PMH 63yo male with PMH HTN, active tobacco use, urinary retention, and newly found L oropharyngeal masspresenting with hemoptysis. He states that over the past year he's noticed a 40 lb weight loss and increasing difficulty with swallowing solids (okay with liquids), as well as a month of worsening N/V, and intermittent hemoptysis. The hemoptysis used to occur intermittently in small amounts (worse with solids) but acutely worsened last weekend. He presented to an OSH ([facility]) on 03/21/23 where they found a large L oropharyngeal mass on CT neck. He was discharged home with plan to f/u with [facility]NT outpatient. However earlier today he had another episode of hemoptysis reporting around 1 pint of blood loss so he came to the ER. Six months ago he moved from [place] to [place], [place] where he lives with his daughter and niece's family. Due to the move, there was some delay in establishing with a new PCP here. ENT was consulted in the ER and recommended no acute intervention. 03/23- ENT consult. Patient denies SOB, stridor, voice changes, aspiration, prior H&N radiation.Scope and physical exam negative for source of bleeding. The mass is submucosal and hypomobile to the tongue musculature. We discussed that the next steps of his workup include tissue biopsy and additional imaging with a PET-CT. We discussed potentially performing a bedside biopsy, but this was chal lenged by trismus, decreased tongue mobility, and concern for hemostasis in setting of recent bleeding. Therefore, we deferred biopsy for now. Recommend further workup with CTA to evaluate for sources of bleeding. - Head and neck CTA - No acute ENT intervention No prior ST notes. Respiratory/Intubation Status: RA CTA 03/23- Large ulcerative left oropharyngeal neck mass highly suspicious for malignancy such as squamous cell carcinoma involving the left parapharyngeal, data operations manager, submandibular, and sublingual spaces with osseous involvement of the left mandible. Multiple branches of the left external carotid artery including the ascending pharyngeal and lingual branches course through this mass without evidence of active arterial extravasation. CXR 03/23- Hyperinflated lungs. Mildly elevated left hemidiaphragm with mild left basilar reticular nodular opacities which may represent atelectasis vs bronchiolitis related to aspiration. No pulmonary edema. No pleural effusion or pneumothorax. Current Diet Order: NPO Baseline Diet: Thin liquids, Ensures, no solids General Information Aleksey Garcia 03/24/23 STUBBER Received On: 03/24/23 General Observations: Pt alert and cooperative. Pt edentulous, no dentures present. Pt reports gagging on solids, feeling food stick in the throat, and consistent weight loss over the past year. Pthas a L oropharyngeal mass detected 03/21. Reason for Referral: Oropharyngeal mass detected, difficulty swallowing solid consistencies Pain Score: 0 - No pain If pain >4, was RN notified? N/A Patient Stated Goal/Comments: N/A Precautions: None Clinical Impression & Professional Recommendations Diet Solids Recommendation: Full liquids (NO purees) Diet Liquids Recommendations: Thin/regular Recommended Form of Medications: Non-orally (Or liquid form, crushed with liquid) Compensatory Strategies/Modifications: Small bites, Single sips, Double/repeat swallows to clear Postural Recommendations: Upright Assistance with feeding/swallowing: Setup only Specialty Instructions: Good oral care 2-3x/day Overall Clinical Impression/Additional Information: Moderate-Severe pharyngeal swallow dysfunction with motor deficits characterized by the following: Oral Phase Deficits: No deficits noted. Pharyngeal Phase Deficits: Absent pharyngeal stripping wave, reduced base of tongue retraction, decreased anterior hyoid excursion, and absent epiglottic movement. Deficits result in: Pharyngeal deficits felt to be secondary to location of oral-pharyngeal mass ascited on head/neck CT. High penetration noted with initial thin liquid trial x1 that cleared with completion of the swallow. No esophageal clearance noted with purees. Utilized a L head turn with effortful swallow, R head turn, and cough in attempt to clear, however, minimal clearance through UES and pt was unable to cough puree to the oral cavity for suction. Pt with gross aspiration of liquid wash in attempts to clear puree. No further puree or solids trialed at this time 2/2 pharyngeal deficits and safety concern. Assessment Details & Results Purpose and Procedure of Videofluoroscopic Study of Swallow: Videofluoroscopic Study of Swallow completed to assess oropharyngeal swallow function and safety/efficiency of the swallow so that diet recommendations can be made. This test is completed in conjunction with Radiology. Results of this test are indicative of performance at the time of the exam. Standard procedure is in lateral view at 90 degrees. Consistencies Administered: Thin liquids, Purees Administered consistencies contain barium product. Thin Liquids: Laryngeal Penetration: Present Aspiration Present: Yes Timing: After (on puree residue) Amount: Gross Response to aspiration: Cough reflex Cough: Non-productive Successful Modifications : None Unsuccessful Modifications: Cough Successful Modification Combinations: None Unsuccessful Modification Combinations: None Penetration Aspiration Scale-Thin: 7-Material enters the airway, passes below the vocal folds and is not ejected from the trachea despite effort Purees: Laryngeal Penetration: None Aspiration Present: No Successful Modifications : None Unsuccessful Modifications: Repeat swallow, Alternated liquids and solids, Turn head left, Turn head right, Effortful swallow, Cough Successful Modification Combinations: None Unsuccessful Modification Combinations: Effortful swallow, Turn head left Penetration Aspiration Scale-Puree: 1-Material does not enter airway MBSImp: MBSImp Results: Lip closure : 0-No labial escape Tongue Control with Bolus Hold: 0-Cohesive bolus between tongue to palatal seal Bolus Preparation/Mastication : Chewables deferred due to overall oral inefficiency (did not trial solids) Bolus Transport/Lingual Motion : 0-Brisk tongue motion Oral Residue: 1-Trace residue lining oral structures (normal variant) Initiation of Pharyngeal Swallow : 1-Bolus head in valleculae Soft Palate : 0-No bolus between soft palate and pharyngeal wall Laryngeal Elevation : 0-Complete superior movement of thyroid cartilage with complete approximationof arytenoids to epiglottic petiole Anterior Hyoid Excursion: 1-Partial anterior movement Epiglottic Movement: 2-No inversion Laryngeal Vestibular Closure: 1-Incomplete, narrow column of air/contrast in laryngeal vestibule Pharyngeal Stripping Wave: 2-Absent Pharyngeal Contraction (AP view only): Not assessed, No AP view Pharyngoesophageal Segment Opening : 3-No distension with total obstruction of flow Tongue Base Retraction : 3-Wide column of contrast or air between tongue base and posterior pharyngeal wall Pharyngeal Residue : 4-Minimal to no pharyngeal clearance Esophageal Clearance (upright position): Not assessed, No AP view Dysphagia Outcome and Severity Scale: Dysphagia Outcomes and Severity Scale: 2 Moderate/Severe dysphagia Levels 1 & 2 on the ANGY indicate need for nonoral nutrition. Treatment Treatment was not provided this date. Please reference care plan for treatment goals and details, if indicated. Plan STUBBER Frequency of Services during current admission: Discharge from this Service STUBBER Recommendation (Add'l Services): No further STUBBER indicated Given nature of dysphagia, STUBBER not indicated at this time. Notified MD to re- refer as needed throughout treatment course. Next Visit Plan: No further ST warranted Additional Referrals: ENT Discharge Summary Statement If this is the last swallow therapy visit, this serves as the discharge summary. Cosigned by Maida Carvajal SLP at 03/24/2023 4:06 PM FREIGHT BROKER GHT BROKER GHT BROKER * Bernadette Barroso SLP - 03/24/2023 9:42 AM CST Speech-Language Pathology: Clinical Bedside Swallow HPI/PMH 63yo male with PMH HTN, active tobacco use, urinary retention, and newly found L oropharyngeal masspresenting with hemoptysis. He states that over the past year he's noticed a 40 lb weight loss and increasing difficulty with swallowing solids (okay with liquids), as well as a month of worsening N/V, and intermittent hemoptysis. The hemoptysis used to occur intermittently in small amounts (worse with solids) but acutely worsened last weekend. He presented to an OSH ([facility]) on 03/21/23 where they found a large L oropharyngeal mass on CT neck. He was discharged home with plan to f/u with [facility] ENT outpatient. However earlier today he had another episode of hemoptysis reporting around 1 pint of blood loss so he came to the ER. Six months ago he moved from [place] to [place], [place] where he lives with his daughter and niece's family. Due to the move, there was some delay in establishing with a new PCP here. ENT was consulted in the ER and recommended no acute intervention. 03/23- ENT consult. Patient denies SOB, stridor, voice changes, aspiration, prior H&N radiation.Scope and physical exam negative for source of bleeding. The mass is submucosal and hypomobile to the tongue musculature. We discussed that the next steps of his workup include tissue biopsy and additional imaging with a PET-CT. We discussed potentially performing a bedside biopsy, but this was chal lenged by trismus, decreased tongue mobility, and concern for hemostasis in setting of recent bleeding. Therefore, we deferred biopsy for now. Recommend further workup with CTA to evaluate for sources of bleeding. - Head and neck CTA - No acute ENT intervention No prior ST notes. Respiratory/Intubation Status: RA CTA 03/23- Large ulcerative left oropharyngeal neck mass highly suspicious for malignancy such as squamous cell carcinoma involving the left parapharyngeal, data operations manager, submandibular, and sublingual spaces with osseous involvement of the left mandible. Multiple branches of the left external carotid artery including the ascending pharyngeal and lingual branches course through this mass without evidence of active arterial extravasation. CXR 03/23- Hyperinflated lungs. Mildly elevated left hemidiaphragm with mild left basilar reticular nodular opacities which may represent atelectasis vs bronchiolitis related to aspiration. No pulmonary edema. No pleural effusion or pneumothorax. Precautions: none listed in EMR Current Diet Order:NPO Baseline Diet: pt reports regular solids/thin liquids at baseline, however, increased difficulty swallowing began ~2-3 months ago and he has been unable to tolerate solid foods (reports coughing, choking, and emesis when eating solid foods) General Information Aleksey Garcia 03/24/23 General Observations: Swallow evaluation completed on 5199. Pt awake, in bed upon STUBBER arrival in room. No family/visitors present. Pt pleasant and cooperative. Pain Score: 0 If pain >4, was RN notified? N/A Patient Stated Goal/Comments: Pt endorsed difficulty swallowing solid foods. Clinical Impression & Professional Recommendations Diet Solids Recommendation: NPO (pending MBS) Diet Liquids Recommendations: NPO for liquids (pending MBS) Recommended Form of Medications: Non-orally Specialty Instructions: thorough oral care 2-3x/day including teeth brushing (gums and tongue) withsuction while upright at 90 and with 100% assistance to improve the oral biome and reduce the risk of aspiration related complications (i.e., PNA) Single ice chips for comfort Dysphagia Diagnosis: (pending MBS) Overall Clinical Impression/Additional Information: Oral mechanism exam notable for edentulous status and lingual deviation to the L. Pt observed with thin liquids via straw and puree. Delayed cough following thin liquid trials. No s/s of aspiration with puree. Recommend MBS to further evaluate swallow function/safety given s/s of aspiration with thin liquids and oropharyngeal mass. MD and RN notified of recommendations. Assessment Details & Results Consistencies Administered: Thin liquids, Purees MASA: Mora Assessment of Swallowing Ability (MASA) Alertness: Alert Cooperation: Cooperative Auditory Comprehension: No abnormality detected Respiration: Sputum upper airway/other condition Respiratory Rate (for swallow): Able to control breath rate for swallow Aphasia: No abnormality detected Apraxia: No abnormality detected Dysarthria: No abnormality detected Saliva: No abnormality detected Lip Seal: No abnormality detected Tongue Movement: Full range of motion Tongue Strength: No abnormality detected Tongue Coordination: No abnormality detected Gag: No gag (did not assess) Palate: No abnormality detected Cough Reflex: No deficit noted Voluntary Cough: No abnormality detected Voice: No abnormality detected Trach: No trach Oral Preparation: No deficits noted Bolus Clearance: Fully cleared Oral Transit: No deficits noted Pharyngeal Phase: Immediate laryngeal elevation Pharyngeal Response: Cough before, during, or after swallow MASA Score: 189 Dysphagia: No dysphagia detected (178-200) Aspiration Risk: No aspiration risk (170-200) Score Interpretation: MBS warranted despite MASA score. Plan STUBBER Frequency of Services during current admission: (pending MBS) STUBBER Recommendation (Add'l Services): (pending MBS) Further Assessment/Follow up Indicated: Recommendations: Follow-up videofluoroscopic swallowing study Next Visit Plan:instrumental evaluation Additional Referrals: none Please reference care plan for treatment goals, if indicated. Discharge Summary Statement If this is the last swallow therapy visit, this serves as the discharge summary. GHT BROKER documented in this encounter Consult Notes * Td Arndt MD - 03/31/2023 4:50 PM CSTAssociated Order(s): IP CONSULT TO RADIATION ONCOLOGY Patient Name: Aleksey Garcia Date of : 1960 Radiation Oncologist: Edwin Lock MD Medical Oncologist: No care donor services team leader to display Surgeon: No care donor services team leader to display Referring Physician: No care donor services team leader to display Date of Service: 03/31/23 RADIATION ONCOLOGY INPATIENT CONSULT NOTE IDENTIFYING DATA: Cancer Staging 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) Staging form: Pharynx - HPV-Mediated Oropharynx, AJCC 8th Edition - Clinical stage from 03/25/2023: Stage III (cT4, cN2, cM0, p16+) - Unsigned HISTORY OF PRESENT ILLNESS: Aleksey Garcia is a 63 y.o. 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 Radiation Oncology was consulted for discussion definitive treatment options. He presented with progressive hemoptysis, and after multiple physician/ED visits was found to have an oropharyngeal mass. Biopsy showed p16+ SCC. CT head and neck 03/23/2023 demonstrated a 7 cm mass centered in the left oropharynx involving the left data operations manager and submandibular spaces with invasioninto the left mandible and with superior extension to the nasopharynx. PET/CT 03/30/2023 showed a PET avid primary as well as a suspicious left level 2A lymph node and a right supraclavicular with mild-moderate FDG uptake. There was no evidence of distant metastatic disease. His pain is being managed by the inpatient team with oxycodone. A PEG tube was placed to facilitate his nutritional needs. He will be discharged later today. Screen Questions: Prior radiation therapy: No Pacemaker: No Other implantable devices: No Connective tissue disease: No PAST MEDICAL, SURGICAL HISTORY History reviewed. No pertinent past medical history. Past Surgical History: Procedure Laterality Date APPENDECTOMY IR G TUBE PLACEMENT PERCUTANEOUS N/A 03/28/2023 IR G TUBE PLACEMENT PERCUTANEOUS N/A 03/29/2023 TONSILLECTOMY ALLERGIES: No Known Allergies MEDICATIONS: Current Facility-Administered Medications Medication Dose Route Frequency Provider Last Rate Last Admin acetaminophen (TYLENOL) tablet 650 mg 650 mg oral Q4H PRN Roland Villavicencio MD 650 mg at 03/29/23 0449 Carrier Fluids for Secondary Infusion - 0.9% Sodium Chloride 30 mL intravenous PRN Alek Tomlinson MD escitalopram (LEXAPRO) 1 mg/mL oral solution 20 mg 20 mg feeding tube Daily Yaima Daniel MD 20 mg at 03/31/23 0816 folic acid (FOLVITE) tablet 1 mg 1 mg oral Daily Roland Villavicencio MD 1 mg at 03/31/23 0942 [START ON 04/01/2023] levoFLOXacin (LEVAQUIN) tablet 750 mg 750 mg feeding tube Q24H Erica Eli MD lidocaine (ASPERCREME) 4 % patch 1 patch 1 patch transdermal Daily PRN Roland Villavicencio MD lisinopriL (PRINIVIL,ZESTRIL) tablet 10 mg 10 mg feeding tube Daily Yaima Daniel MD 10mg at 03/31/23 0817 salymavz-ftf-mcwzhtt gluconate (CENTRUM) 0.6 mg iron/mL oral liquid 15 mL 15 mL feeding tube Daily Yaima Daniel MD 15 mL at 03/31/23 0942 nicotine (NICODERM CQ) 14 mg patch 24 hour 1 patch 1 patch transdermal Daily Roland Villavicencio MD 1 patch at 03/31/23 0942 nortriptyline (PAMELOR) 2 mg/mL oral solution 30 mg 30 mg feeding tube Nightly PRN Yaima Daniel MD ondansetron ODT (ZOFRAN-ODT) disintegrating tablet 4 mg 4 mg oral Q6H PRN Roland Villavicencio MD Or ondansetron (ZOFRAN) injection 4 mg 4 mg intravenous Q6H PRN Roland Villavicencio MD oxyCODONE (ROXICODONE) 1 mg/mL oral solution 5 mg 5 mg feeding tube Q4H PRN Yaima Daniel MD 5 mg at 03/31/23 0816 polyethylene glycol (MIRALAX) packet 17 g 17 g feeding tube Daily Yaima Daniel MD 17 gat 03/31/23 0942 ramelteon (ROZEREM) tablet 8 mg 8 mg oral Nightly PRN Roland Villavicencio MD 8 mg at 03/26/231958 sodium chloride (OCEAN) 0.65 % nasal spray 1 spray 1 spray each nostril Q2H PRN Erica Eli MD sodium chloride 0.9% flush 0.5-20 mL 0.5-20 mL intra-catheter Q8H [facility] Roland Villavicencio MD 10 mL at 03/31/23 0551 sodium chloride 0.9% flush 0.5-20 mL 0.5-20 mL intra-catheter Q8H [facility] Alek Tomlinson MD 10 mL at 03/31/23 0551 sodium chloride 0.9% flush 0.5-20 mL 0.5-20 mL intra-catheter PRN Alek Tomlinson MD thiamine (VITAMIN B1) tablet 100 mg 100 mg oral Daily Roland Villavicencio MD 100 mg at 03/31/23 0942 FAMILY HISTORY Family History Problem Relation Age of Onset Anesthesia problems Neg Hx SOCIAL HISTORY Social History Tobacco Use Smoking Status Every Day Current packs/day: 1.50 Average packs/day: 1.5 packs/day for 44.1 years (66.2 ttl pk-yrs) Types: Cigarettes Start date: 02/1979 Passive exposure: Never Smokeless Tobacco Never @HXALCOHOL@ Social History Substance and Sexual Activity Drug Use Not on file REVIEW OF SYSTEM See HPI as above, the rest of 12 point ROS is otherwise negative. PHYSICAL EXAMINATION: BP 150/67 (BP Location: Right arm, Patient Position: Lying) Pulse 73 Temp 37 ??C (98.6 ??F) (Oral) Resp 16 Ht 165.1 cm (5' 5 ) Wt 51.2 kg (112 lb 14.4 oz) SpO2 94% BMI 18.79 kg/m?? KPS/ECO General: Well-developed, well-nourished in no acute distress. HEENT: normocephalic, atraumatic. Left lower face asymmetric with swollen appearance of left jaw. Teeth are absent. Chest: Normal work of breathing on room air; no accessory muscle effort noted Abdomen: non-distended Extremities: No cyanosis, no deformity Neurologic: Grossly non-focal. Gait normal. Skin: No rashes. Psych: Appropriate mood and affect DIAGNOSTIC REPORTS REVIEWED: Imaging: I personally reviewed the imaging. Please see HPI for details. Laboratory/Pathology: I personally reviewed the pathology values. Please see HPI for details. ASSESSMENT/RECOMMENDATIONS: Aleksey Garcia is a 63 y.o. male with newly diagnosed cT4 N1-2 p16+ SCC. He was discussed at our multidisciplinary tumor board this morning. Due to the extensive invasive nature of the primary, definitive chemoradiotherapy course was preferred over a primary surgical approach. We plan to administer a definitive course of radiotherapy consisting of daily radiation treatments Tuesday through Tuesday for 7 weeks for a total 35 fractions. At the discretion of Medical Oncology, this would be delivered concurrently with chemotherapy. Medical oncology saw the patient today and isalso arranging for further outpatient management. We discussed the logistics of radiotherapy including simulation. We discussed potential acute and late toxicities. He will need to sign consent for treatment at our [place] facility, which is closer to his home and is his preferred treatment location for radiotherapy. We will arrange for simulation in the near future, with treatment to commence shortly thereafter. He does not have teeth, so no dental clearance will be required. Radiation treatment intent: definitive RAD ONC PAIN PLAN: The patient's pain is currently being managed by inpatient team. Td Arndt MD, MS Sheriff'S Officer Chief Resident Department of Radiation Oncology Rad Onc Contact Info Tuesday-Tuesday 7am-5pm If you know the resident's name on the appropriate radiation oncology team (e.g., signature on the plan of care or consult note), please use [email or web address] to page/call the resident directly. Alternatively, please call the radiation oncology front end specialist at [phone]. Tuesday-Tuesday 5pm-7am or on weekends Please reach the on-call radiation oncology service through the [facility] calender machine operator line ([phone]). Cosigned by Edwin Lock MD at 04/01/2023 2:02 PM FREIGHT BROKER GHT BROKER GHT BROKER Associated attestation - Edwin Lock MD - 04/01/2023 2:02 PM FREIGHT BROKER I have seen and examined the patient on 03/31/2023. I agree with the findings and plan of care as documented in the resident's/fellow's note.. * Elean Krause MD - 03/31/2023 12:50 PM CSTAssociated Order(s): IP CONSULT TO ONCOLOGY Images from the original note were not included. MEDICAL ONCOLOGY CONSULT NOTE Visit date: 03/23/2023 Patient: Aleksey Garcia Assessment and Plan: Mr. Aleksey Garcia is a 63yo male with HTN, active tobacco use, urinary retention, and newly found Loropharyngeal mass admitted since 03/23 after presenting with hemoptysis found to have SCC. #SCC of oropharynx, p16 +ve Patient with a year's history of weight loss and at least few months history of dysphagia and intermittent hemoptysis. On CT imaging and laryngoscopy, patient with mass of left oropharynx with osseous involvement of mandible (as well as left parapharyngeal, data operations manager, submandibular, and sublingual space). Pathology with [id number] squamous cell carcinoma with nonkeratinizing and basaloid features. PET scan with probable metastatic ipsilateral Level IIa LN and suspicious contralateral supraclavicular LN. No distant disease. Discussedat tumor board with recommendation for chemoradiation. -We will arrange outpatient follow-up for patient at [facility] with Head and neck oncologist -Recommend consulting radiation oncology to help establish and coordinate his treatment before discharge Thank you for this consult. We will continue to follow. Please do not hesitate to contact us with any questions or concerns. This patient was staffed with my attending physician Dr. Serrano, who agrees with my assessment and plan. Elena Krause MD IM PGY2 Reason for Consult: new oropharyngeal SCC, p16+ Requesting Provider: Logan Alvarado MD HPI: Mr. Aleksey Garcia is a 63yo male with PMH HTN, active tobacco use, urinary retention, and newly found L oropharyngeal mass admitted since 03/23 after presenting with hemoptysis. Over the last year patient has noticed significant weight loss (around 40 lbs), progressively worsening dysphagia to solids as well as gagging and intermittent hemoptysis. He presented to an OSH on 03/21/[address] neck that showed a large left oropharyngeal mass. He was discharged with plan to follow up with ENT. However, he had subsequent episode of hemoptysis and presented to ED here. Since admission, he required one unit of blood, othwesie his hemoglobin has been stable and has notnoticed subsequent hemoptysis. He had a CTA head neck in the ED that showed a large ulcerative left oropharyngeal neck mass (7.2x4.3x3.3 cm), involving the left parapharyngeal, data operations manager, submandibular and sublingual spaces with osseous involvement of left mandible. ENT were consulted and took patient to OR on 03/25 for laryngoscopy, that showed ulcerative lesion along the left oropharynx involving a small amount of soft palate, tonsillar pillar, and extending down to involve the ipsilateral vallecula. Laryngeal aspect of epiglottis appeared without disease. There was no evidence of disease in the hypopharynx and larynx. Biopsies were taken from the lesion with results from frozen section showing carcinoma. 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 He had a PET/CT on 03/30 that showed the hypermetabolic ulcerative left oropharyngeal mass with extension superiorly into the left nasopharynx, into the left data operations manager, submandibular, and sublingual spaces, left tonsillar fossa, and involvement of the left aspect of the tongue and left aspect of the soft palate. (Max SUV 6.3) There was also a probable metastatic left level IIa lymph node and mildly hypermetabolic right supraclavicular lymph node (8mm) suspicious for anum metastasis. Based on the above, the cancer is likely T4 (invades mandible), N2 (likely bilateral LN) -->Stage III Case was discussed at H&N tumor board with recommendation to proceed with chemoradiation, no surgery given advanced stage. Today, patient reports he is doing better. Possibly getting discharged today, pending finalization of HH. He is on TF that he is tolerating well. He reports history of caner in his mother and sister but he doesn't know what type of cancer. He lives with his daughter and niece, was completely independent until his admission. He was also fully functional and able to walk 8 blocks to the stores until he started declining with this weight loss and hemoptysis. Oncology History: Oncology History No history exists. 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 Home Medications: Prior to Admission medications Medication Sig Start Date End Date Taking? Authorizing Provider escitalopram (LEXAPRO) 20 mg tablet Take 1 tablet (20 mg total) by mouth daily Nieves Diaz MD escitalopram (LEXAPRO) oral solution 5 mg/5 mL Take 20 mL (20 mg total) by mouth daily 03/30/23 05/05/23 Yaima Daniel MD levoFLOXacin (LEVAQUIN) 750 mg tablet Take 1 tablet (750 mg total) by mouth daily for 4 doses 04/01/23 04/05/23 Erica Eli MD lidocaine (LIDODERM) 5 % Place 1 patch on the skin daily Remove & discard patch within 12 hoursor as directed by MD. Nieves Diaz MD lisinopriL (PRINIVIL,ZESTRIL) 10 mg tablet Take 1 tablet (10 mg total) by mouth daily Nieves Diaz MD lisinopriL (PRINIVIL,ZESTRIL) 10 mg tablet Administer per tube 1 tablet (10 mg total) daily / Yaima Daniel MD heutwegz-bav-yxpezuo gluconate (CENTRUM) 0.6 mg iron/mL liquid Administer 15 mL per feeding tube daily 03/30/23 Yaima Daniel MD nicotine (NICODERM CQ) [address] 1 patch on the skin daily 03/31/23 04/30/23 Yaima Daniel MD nortriptyline (PAMELOR) 10 mg capsule Take 3 capsules (30 mg total) by mouth nightly as needed for sleep Take 1-3 tablets (10-30mg) as needed nightly for sleep ProviderNieves MD nortriptyline (PAMELOR) solution 10 mg/5 mL Administer per tube 15 mL (30 mg total) nightly as needed (sleep) 03/30/23 03/29/24 Yaima Daniel MD ondansetron (ZOFRAN) 4 mg tablet Take 1 tablet (4 mg total) by mouth every 8 (eight) hours as needed for nausea or vomiting Provider, MD Nieves ondansetron ODT (ZOFRAN-ODT) 4 mg disintegrating tablet Take 1 tablet (4 mg total) by mouth every 6(six) hours as needed for nausea or vomiting 03/30/23 Yaima Daniel MD oxyCODONE (ROXICODONE) solution 5 mg/5 mL Administer per tube 5 mL (5 mg total) every 4 (four) hours as needed for pain 03/30/23 Yaima Daniel MD oxyCODONE (ROXICODONE) solution 5 mg/5 mL Administer per tube 5 mL (5 mg total) every 4 (four) hours as needed for pain 04/06/23 Erica Eli MD polyethylene glycol (MIRALAX) 17 gram/dose bulk powder Administer per tube 17 g daily 03/30/23 Yaima Daniel MD Allergies Allergies as of 03/23/2023 (No Known Allergies) Social History Social History Tobacco Use Smoking status: Every Day Current packs/day: 1.50 Average packs/day: 1.5 packs/day for 44.1 years (66.2 ttl pk-yrs) Types: Cigarettes Start date: 02/1979 Passive exposure: Never Smokeless tobacco: Never Substance and Sexual Activity Drug use: None Sexual activity: None Alcohol Use: Not At Risk (03/25/2023) AUDIT-C Frequency of Alcohol Consumption: Monthly or less Average Number of Drinks: 1 or 2 Frequency of Binge Drinking: Never Family History Family History Problem Relation Age of Onset Anesthesia problems Neg Hx Physical Exam: Temp: [37 ??C (98.6 ??F)-37.5 ??C (99.5 ??F)] 37 ??C (98.6 ??F) Pulse: [73-94] 73 Resp: [16-20] 16 BP: (126-154)/(50-76) 150/67 ECOG Performance Status: 2 General: No acute distress. HEENT: EOMI, PERRL, sclera anicteric, moist mucous membranes. Mild trsimus Neck: Trachea midline, supple Cardiovascular: Regular rate and rhythm Lungs: Bilateral bibasilar crackles. No wheezing Abdomen: Soft, non-tender to palpation, not distended, G tube in Extremities: No edema on bilateral lower extremities Skin: Warm, dry, no rashes. Neurologic: AAOx3, mission manager grossly intact, no focal neurological deficit Psychosocial: Normal affect and mood. Laboratory Interpretation: CBC: Recent Labs Lab Units 03/30/232030 WBC K/cumm 8.7 HEMOGLOBIN g/dL 8.4* HEMATOCRIT % 26.1* MCV fL 96.3 MCH pg 31.0 MCHC g/dL 32.2* RDW CV % 13.5 RDWSD fL 47.4 MPV fL 9.6 COAGS: CMP: Recent Labs Lab Units 03/30/23203003/28/23 1151 03/27/232017 SODIUM mmol/L 132* < > 131* POTASSIUM PLASMA mmol/L 4.3 < > 4.5 CO2 mmol/L 33* < > 32 BUN SERUM mg/dL 23 < > 22 GLUCOSE mg/dL 110 < > 88 POC GLUCOSE MONITOR -- < > -- CREATININE mg/dL 0.55* < > 0.51* CALCIUM mg/dL 8.8 < > 8.5 CHLORIDE mmol/L 91* < > 95* ALBUMIN g/dL -- -- 3.1* AST Units/L -- -- 38 ALT Units/L -- -- 21 ALK PHOS Units/L -- -- 83 BILIRUBIN TOTAL mg/dL -- -- <0.2 TOTAL PROTEIN g/dL -- -- 6.3* ANIONGAP mmol/L 8 < > 4 < > = values in this interval not displayed. Imaging: POCUS Cardiac Result Date: 03/30/2023 Narrative: Performed by: Malena Rey Cardiac: Exam type: Diagnostic Exam Information: Indication(s) for Exam: Chest Pain Exam Occurence: Initial Findings : Pericardial effusion: Absent Left ventricle: Normal EF Right ventricle: Normal IVC: Dilated Interpretation: Normal LVEF Electronically signed by Malena Rey on Thursday, March 23, 2023 at 6:07 PM I have reviewed the images & the resident's interpretation. I agree with the findings. Electronically signed by Cuba Yoder on Thursday, March 30, 2023 at 6:05 PM I have reviewed the images & the resident's interpretation. I agree with the findings. PET/CT FDG Skull to Thigh Result Date: 03/30/2023 Narrative: EXAMINATION: TUMOR FDG-PET/CT IMAGING DATE OF STUDY: 03/30/2023 SCANNER: [facility] RADIOPHARMACEUTICAL: 11.1 mCi F-18 Fluorodeoxyglucose (FDG) i.v. Injection site: Right forearm HISTORY: 63-year-old male with new left oropharyngeal mass, biopsy-proven squamous cell carcinoma on 03/25/2023. The study is requested for initial staging. Initial treatment strategy. TECHNIQUE: The patient's fasting blood glucose level, measured by glucometer before injection of FDG, was 96 mg/dL. After intravenous administration of FDG, noncontrast CT images were obtained for attenuation correction and for fusion with emission PET images to allow for anatomical localization of PET findings. Emission PETimages were then obtained. The study was interpreted on the [employer] workstation. The mean liver SUV (reported for quality assurance tester purposes) is 1.5. The total scanned area was skull vertex to the proximal thighs. Images of the body were obtained starting 50 minutes after injection of tracer. COMPARISON: CTA head and neck 03/23/2023 DESCRIPTORS OF LESION FDG AVIDITY: Minimal: <= blood pool Mild: > blood pool and <= liver Moderate: > liver and <= 2x SUVmax liver Moderate to marked: >2x SUVmax liver and <= 3x SUVmax liver Marked: > 3x SUVmax liver FINDINGS: There is a hypermetabolic, ulcerative, infiltrative neck mass centered in the left oropharynx with extension superiorly into the left nasopharynx, into the left data operations manager, submandibular, and sublingual spaces, lefttonsillar fossa, and involvement of the left aspect of the tongue and left aspect of the soft palate. Measurements are difficult given lack of intravenous contrast. Maximum SUV of the mass is 6.3. There is osseous erosion of the left mandible. Probable enlarged left level 2A lymph node with maximumSUV 6.1 (image 63/326) suspicious for metastasis. There is a right supraclavicular lymph node measuring 8 mm in short axis with maximum SUV 2.7 (image 95/326). There is bibasilar consolidation and tree-in-bud nodularity with moderate associated FDG avidity, likely representing aspiration pneumonia. Moderately FDG avid mediastinal and bilateral hilar lymph nodes are likely reactive. Mild uptake along the recently placed percutaneous gastrostomy tube is likely postoperative. There is diffuse white fat uptake in body wall edema, possibly related to cachexia. Additional CT findings: Moderate leftmaxillary mucosal thickening. Calcified atherosclerosis of the thoracic aorta and great vessels. There is calcified coronary artery atherosclerosis. Apical predominant emphysematous changes bilaterally. Trace bilateral pleural effusions. The urinary bladder is distended. There is aneurysmal dilatation of the abdominal aorta up to 3.8 cm. High-density stool noted throughout the colon. Multilevel de generative changes throughout the spine. Impression: 1. Large, hypermetabolic, ulcerative and infiltrative mass centered in the left oropharynx with involvement of the left nasopharynx, left data operations manager, submandibular, and sublingual spaces,left tonsillar fossa, left aspect of the tongue and left soft palate consistent with biopsy-proven squamous cell carcinoma. 2. Probable metastatic left level IIa lymph node and mildly hypermetabolic right supraclavicular lymph node suspicious for anum metastasis. 3. Aspiration pneumonia in the bilateral lung bases with likely reactive mediastinal and hilar lymph nodes. Dictated by: Portillo Pinzon M.D. The radiology attending physician has personally reviewed this study, and had reviewed and/or edited this written report and agrees with it. Electronically signed by: Portillo Byers DO XR Chest 1 View Result Date: 03/30/2023 Narrative: EXAMINATION: 1 view chest radiograph Impression: Comparison exam is dated 03/23/2023. Since the prior examination, the patient has developed bilateral pulmonary infiltrates, right greater than left, which could represent pneumonia, perhaps from aspiration. The cardiomediastinal silhouette is normal. Electronically signed by: Cayden Vincent M.D. CT Head WO Contrast Result Date: 03/29/2023 Narrative: EXAMINATION: CT head without contrast HISTORY: Fall, head trauma TECHNIQUE: CT of the head was performed with images acquired from skull base to vertex without intravenous contrast. COMPARISON: CT/CTA 03/23/2023 FINDINGS: Preserved leblanc-white matter differentiation. No acute intracranialhemorrhage. No midline shift. No hydrocephalus. Scattered foci of low attenuation in the periventricular and subcortical white matter are nonspecific but likely represent chronic small vessel ischemic change. Previously described oropharyngeal mass is not visualized. Normal orbits. Near-complete opacification of the left maxillary and sphenoid sinuses with mucosal thickening in the ethmoid and sphenoid sinuses. Mastoids are clear. Impression: No acute intracranial abnormality. Dictated by: Quincy Gil MD The radiology attending physician has personally reviewed this study, and had reviewed and/or edited this written report andagrees with it. Electronically signed by: Kolby Hodges M.D. IR G Tube Placement Percutaneous Result Date: 03/29/2023 Narrative: EXAMINATION: PERCUTANEOUS FLUOROSCOPIC PULL-TYPE GASTROSTOMY CATHETER PLACEMENT INDICATION: 63 year old man with severe dysphagia requiring enteral nutrition. Push type G-tube placed 03/28/2023 fell out overnight. A Glasgow catheter was placed into the tract by the floor team. ATTENDING PRESENCE: Alek Talbot MD, the attending radiologist was present from the beginning to the endof the procedure. SEDATION: Procedural sedation was administered under the attending physician's direction and continuous monitoring by a trained nurse specialist who was independent from those actually performing the procedure. Total monitored sedation time was 32 minutes. TECHNIQUE: The risks, benefits and alternatives were discussed and informed consent was obtained. Prior to beginning the procedure, [place] Protocol was performed to confirm the patient's identity and the planned procedure. The fluoroscopy time has been recorded in the electronic medical record. Maximum sterile barriers including cap, mask, hand hygiene, sterile gloves, sterile gown, large sterile drape and 2% chlorhexidine for cutaneous antisepsis were used. Intravenous antibiotic prophylaxis was administered with 1g of IV Ancef. Pre-existing feeding tube was noted to terminate in the stomach. Initial contrast injection through the Glasgow catheter that had been placed through the gastrostomy tube tract as a place castelan demonstrated the tip was not within the gastric lumen. This tube was removed prior to proceeding. An MPA catheter was advanced through the pre- existing gastrostomy tube tract with the assistance of a glide wire into the gastric lumen. Contrast injection was used to confirm intragastric position. A 0.035 snare was advanced through the MPA catheter and used to snare the distal tip of the pre-existing feeding tube. The feeding tube was subsequently pulled to the skin surface and the tip of the feeding tube was cut off. A long guidewire wire was advanced through the feeding tube to the oropharynx and the feeding tube was then removed. The guidewire was directed out of the patient's mouthsuch that through and through access was obtained from the abdominal wall through the oropharynx. Next, a 24 Ghanaian pull type gastrostomy tube was advanced over the guidewire from the oral end of thewire into the mouth, esophagus, and stomach and through the abdominal wall access site. The guidewire was removed, and the gastrostomy catheter was cut. Contrast was injected confirming intraluminal positioning and apposition of the bumper to the anterior gastric wall. An external bumper disc was advanced to secure the catheter to the skin with appropriate tension. The catheter was connected to gravity drainage. A dry sterile dressing was applied. ESTIMATED BLOOD LOSS: Minimal. CONDITION: Stable DISCHARGED TO: patient care division. FINDINGS: Final fluoroscopic images demonstrate the gastrostomy catheter with its tip in the body of the stomach. No complications are identified. Impression: Successful placement of a 24 Ghanaian pull-through gastrostomy catheter. PLAN: The gastrostomy catheter will remain to gravity drainage overnight. It may be used for administration of liquid medications. The tube should be capped after administration of the medication for an hour and then reconnected to gravity drainage. The output should be recorded every shift. The patient will be examined in the morning prior to clearing the catheter for usage for tube feeds. Feedings will likely start in a day and be advanced to goal before discharge. Antibiotic prophylaxis should be continued for 5 days post gastrostomy catheter placement. Dictated by: Alek Tomlinson MD, PHD The radiology attending physician has personally reviewed this study, and had reviewed and/or edited this written report and agrees with it. Electronically signed by: Alek Talbot MD IR G Tube Placement Percutaneous Result Date: 03/28/2023 Narrative: EXAMINATION: PERCUTANEOUS BALLOON ASSISTED GASTROSTOMY CATHETER PLACEMENT INDICATION: History of oral mass with severe dysphagia requiring enteral nutrition. ATTENDING PRESENCE: Oriana Ambriz MD, PhD, the attending radiologist was present from the beginning to the end of the procedure. RESIDENT: Alek Tomlinson MD, PhD SEDATION: Procedural sedation was administered under the attending physician's direction and continuous monitoring by a trained nurse specialist who was independent from those actually performing the procedure. Total monitored sedation time was 24 minutes. TECHNIQUE: The risks, benefits and alternatives were discussed and informed consent was obtained. Prior tobeginning the procedure, [place] Protocol was performed to confirm the patient's identity and theplanned procedure. The fluoroscopy time has been recorded in the electronic medical record. Maximumsterile barriers including cap, mask, hand hygiene, sterile gloves, sterile gown, large sterile drape and 2% chlorhexidine for cutaneous antisepsis were used. A nasogastric (NG) tube was in place at the time of arrival . The abdomen was prepped and draped in sterile fashion. A mastercam programmer image of the abdomen was obtained. Glucagon 1mg IV was administered. Air was insufflated into the stomach through the NG tube. After administration of lidocaine for local anesthesia, 2 gastropexy anchors were placedinto the stomach under fluoroscopic guidance. Contrast was administered through the delivery needleafter aspiration of air to confirm placement before deployment of the anchors. An incision was madebetween the gastropexy anchors and 18-g single wall needle was passed into the stomach under fluoroscopic guidance. Contrast was injected to confirm appropriate needle tip position. A 0.035 Amplatz wire was then passed into the stomach. Over the wire, a Conquest 10 mm x 8 cm high-pressure angioplasty balloon preloaded with an 16Fr ERIC bolus gastrostomy tube was placed. The tract was dilated with the angioplasty balloon, allowing passage of the gastrostomy tube into the stomach. The balloon of the gastrostomy tube was inflated and pulled back against the stomach wall under fluoroscopic observation to assess positioning. The angioplasty balloon was removed over the wire. Contrast was then injected to confirm intragastric location with permanent fluoroscopic imaging obtained. The locking disc was secured and the stomach deflated. The gastropexy anchors were locked in position. ESTIMATED BLOOD LOSS: Minimal. CONDITION: Stable DISCHARGED TO: Patient care division. FINDINGS: 1. Preprocedureimaging demonstrates anatomy suitable for percutaneous gastrostomy placement. There is an indwelling NG tube with its tip in the stomach. 2. Successful placement of a 16fr ERIC bolus percutaneous gastrostomy tube. 3. Post-placement imaging demonstrates intra- gastric location. COMPLICATION: There were no immediate complications. The patient tolerated the procedure well. Technically successful imageguided percutaneous gastrostomy placement as above. Impression: Successful placement of a 16 Ghanaian gastrostomy catheter with gastropexy. RECOMMENDATIONS: 1. The gastrostomy catheter will remain to gravity drainage overnight. It may be used for administration of liquid medications. The tube should be capped after administration of the medication kimberly hour and then reconnected to gravity drainage. The output should be recorded every shift. The patient will be examined in the morning prior to clearing the catheter for usage for tube feeds. Feedings will likely start in a day and be advanced to goal before discharge 2. The gastropexy anchors are composed of bioabsorbable suture and will release in 2-3 weeks. If they do not, they may be cut flush with the skin surface Dictated by: Alek Tomlinson MD, PHD The radiology attending physician has personally reviewed this study, and had reviewed and/or edited this written report and agrees with it. Electronically signed by: Oriana Ambriz MD XR Abdomen Ap 1 Vw Result Date: 03/25/2023 Narrative: EXAMINATION: Abdomen, one view. HISTORY: Dobbhoff placement COMPARISON: None Impression: A single view of the abdomen is submitted for evaluation. Feeding tube with tip projecting over the gastric fundus. The stylette remains in place. Contrast in the proximal colon. No evidence of bowel obstruction in the imaged portion of the abdomen and pelvis. Vascular calcifications are present. The Non Critical results regarding Dobbhoff tube positioning were discussed with Dr. Villavicencio by Dr. Stone on 03/25/2023 at 6:56 PM Dictated by: Omar Stone M.D. The radiology attending physician has personally reviewed this study, and had reviewed and/or edited this written report and agreeswith it. Electronically signed by: Shelli Ambriz M.D. [place] Modified Barium Swallow W Video Result Date: 03/24/2023 Narrative: EXAMINATION: MODIFIED BARIUM SWALLOW HISTORY: Dysphagia. TECHNIQUE: This procedure was completed in conjunction with a Speech Language Pathologist. The patient was given barium of multipledifferent consistencies to swallow. Video fluoroscopy was employed during the exam. FINDINGS: Pharyngeal swallow function is abnormal. Penetration: Yes There is penetration of thin liquids. Penetration is not sensed. The penetrated material is cleared. Aspiration: Yes There is aspiration of thin liquids. Aspiration is sensed. The aspirated material is not cleared. Residue:Yes There is pharyngeal residue of puree. Residue is sensed. The residual material is inconsistently cleared. Other comments: None Impression: The swallowing mechanism is abnormal; see above comments. Please refer to the Speech Pathology procedure note for safe swallow recommendations as well as additional information regarding the oral-pharyngeal swallow function, plan of care, and recommended follow up. Dictated by: Jarocho Thao MD The radiology attending physician has personally reviewed this study, and had reviewed and/or edited this written report and agrees with it. Electronically signed by: Shila Matos M.D. CTA Head Neck W WO Contrast Result Date: 03/23/2023 Narrative: EXAMINATION: 1. Computed tomography angiography (CTA) of the head without and with contrast 2. Computed tomography angiography (CTA) of the neck with contrast HISTORY: Bleeding left oropharyngeal neck mass. TECHNIQUE: CT of the head was performed with images acquired from skull base to vertex without intravenous contrast. Computed tomographic angiography was then obtained from the aortic arch to the vertex following the uneventful administration of intravenous contrast. 3D images were generated on a dedicated workstation. Contrast information: 92 mL [id number] COMPARISON: None Available. FINDINGS: HEAD: There is symmetric periventricular white matter hypoattenuation which is nonspecific and likely represents chronic small vessel disease. There is no acute intracranial hemorrhage. Ventricles are of normal size and morphology. No mass effect or midline shift is present. The leblanc-white matter differentiation is normal. The visualized portions of the orbits are normal. The visualized portions of the mastoids are normal. Moderate left maxillary mucosal sinus thickening. No fractures are identified. NECK: There is a large ill-defined and infiltrative neck mass centered in the left oropharynx extending to the left data operations manager and left submandibular spaces as well as the leftsublingual space. Mass appears ulcerative along its oropharyngeal surface. Mass extends into the left submandibular space and invades into the left mandible with associated osseous erosion, series 7 image 355. Mass measures up to 7.2 x 4.3 x 3.3 cm. Multiple branches of the left external carotid artery course through this mass, including the ascending pharyngeal and lingual branches. No evidence of active arterial extravasation. Mild stepwise anterolisthesis of C3 on C4 and C4 on C5 and C5 on C6. Degenerative disease from C5 to C7. Mild spinal canal stenosis secondary discussed by complexes at C5-C6 and C6-C7. Up to severe left C4-C5 neuroforaminal stenosis. Multilevel facet arthropathy. Limited examination of the superior thorax shows centrilobular emphysema. CTA: The visualized aortic ar ch appears normal with normal configuration of the great vessels. The innominate artery and both subclavian arteries are normal in course and caliber. Common carotid arteries are normal in course andcaliber with mild atherosclerotic calcifications at the bilateral bifurcations without hemodynamically significant stenosis. The course and caliber of the internal carotid arteries in the neck are normal. Involvement of the left external carotid artery branches as detailed above. No areas of atherosclerotic narrowing or filling defects are identified. The visualized course and caliber of the internal carotid arteries in the head are normal. No areas of atherosclerotic narrowing or filling defects are identified. The [id number] is complete. The anterior and middle cerebral arteries are normal. The vertebral arteries are codominant. The basilar artery is normal. The posterior cerebral arteries are normal. There is no aneurysm or vascular malformation identified. No angiographic spot sign. 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 Multiple branches of the left external carotid artery including the ascending pharyngeal and lingual branches course through this mass without evidence of active arterial extravasation. Dictated by: Tico Zarco MD The radiology attending physician has personally reviewed this study, and had reviewed and/or edited this written report andagrees with it. Electronically signed by: Todd Gonzales MD XR Chest 1 View Result Date: 03/23/2023 Narrative: EXAMINATION: 1 view chest radiograph Impression: No comparison available. Hyperinflated lungs. Mildly elevated left hemidiaphragm with mild left basilar reticular nodular opacities which may represent atelectasis vs bronchiolitis related to aspiration. No pulmonary edema. No pleural effusion or pneumothorax. Normal cardiomediastinal silhouette. Dictated by: Yolanda Penn MD The radiology attending physician has personally reviewed this study, and had reviewed and/or edited this written report and agrees with it. Electronically signed by: Mraisol Wolf M.D. ECG 12 lead Result Date: 03/23/2023 Narrative: Cuba Yoder MD 03/23/2023 3:40 PM ECG 12 lead Date/Time: 03/23/2023 3:38 PM Performed by: Cuba Yoder MD Authorized by: Winsome Black MD Rate: ECG rate: 73 ECG rate assessment: normal Rhythm: Rhythm: sinus rhythm QRS: QRS axis: Left QRS intervals: Wide Conduction: Conduction: abnormal Abnormal conduction: non-specific intraventricular conduction delay ST segments: ST segments: Normal T waves: T waves: inverted Inverted: V4, V5, V6, V3, I and aVL Previous ECG: Previous ECG: Unavailable Interpretation: Interpretation: non-specific Recommended Follow-up: Recommended follow up: further workup in the ED Assessment and Plan is at the top of the note. Cosigned by Radha Graves MD PhD at 03/31/2023 6:09 PM FREIGHT BROKER GHT BROKER GHT BROKER Associated attestation - Radha Graves MD PhD - 03/31/2023 6:09 PM FREIGHT BROKER I have seen and examined the patient on 03/31/23. I agree with the findings and plan of care as documented in the resident's/fellow's note.. * Hiren Blackwell MD - 03/23/2023 4:47 PM CSTAssociated Order(s): IP CONSULT TO ENT Otolaryngology - Head & Neck Surgery Consult Attending Physician: Dr. Flores Reason for Consult: bleeding oropharyngeal mass Requesting Provider: ED History of present Illness Aleksey Garcia is a 63 y.o. male with history of HTN presenting with oral bleeding from a recently diagnosed left oropharyngeal mass. He initially presented to OSH ED this past Tuesday 03/21 for oral bleeding where CT neck demonstrated large left oropharyngeal mass along the base of tongue, floor of mo uth, GTS, and lingual mandible. He was discharged home with plan for follow up with [facility] ENT. Earlier today, he had another episode of hemoptysis, approximately one pint. He re-presented to the OSH EDand Hgb had dropped from 9.5 on 2/12 to 7.0 today. Patient has had progressive hemoptysis for the past month that usually occurs in the setting of eating. These episodes resolve spontaneously over 5-10 minutes. The bleeding has become worse over the past couple of months. It is associated with a 60-lb weight loss over the past year from dysphagia to solids. He is able to take PO liquids without issues and has been maintaining his weight for the st couple of months on protein shakes. He has a history of tonsillectomy as a child, no other H&N surgeries. Patient denies SOB, stridor, voice changes, aspiration, prior H&N radiation. Current smoker, 30 pack-year history. No alcohol. Patient (home) Insurance: Payor: [employer] / Plan: [employer] / Product Type: MEDICAID RISK OTHER / No past medical history on file. Patient Active Problem List Diagnosis Oral mass No past surgical history on file. Social History Tobacco Use Smoking status: Not on file Smokeless tobacco: Not on file Substance and Sexual Activity Drug use: Not on file Sexual activity: Not on file Alcohol Use: Not on file No family history on file. No Known Allergies (Not in a hospital admission) Review of Systems: 10 point ROS performed as above. All other systems are negative. OBJECTIVE Physical Exam: Vitals: 03/23/23 1625 03/23/23 1630 03/23/23 1635 03/23/23 1640 BP: 152/64 161/67 165/67 161/85 Pulse: 71 74 74 70 Resp: Temp: TempSrc: SpO2: 90% 93% 93% 97% Weight: Height: General: Well-appearing, NAD Head and Face: NT, AC. Neuro: AOx3, follows commands. Eyes: Sclera white, no conjunctivitis Ears: Normal external set, no drainage Nose: Dorsum midline, no external drainage Oral Cavity: 3 finger breadth trismus. Firm submucosal lesion at left base of tongue, hypomobile totongue muscles. This extends to posterolateral floor of mouth, glossotonsillar sulcus, and left tonsillar fossa. No ulceration or active areas of bleeding. No pooling secretions. Neck: Soft and flat. No lymphadenopathy. CV: Warm and well perfused. Lungs: Breathing comfortably on room air. Skin: No lesions. Procedure: Name of Procedure: Fiberoptic laryngoscopy Indication: Evaluate left oropharyngeal mass Description: A flexible fiberoptic endoscope was placed in the left nasal cavity and advanced to the larynx. There were no nasal lesions. The nasopharynx was clear. There is fullness at the left baseof tongue without ulceration. The vallecula, epiglottis, visualized hypopharynx, and visualize larynx were normal. True vocal folds with full mobility in both directions bilaterally. No areas of bleeding identified. No pooling secretions. The endoscope was removed. Patient tolerated the procedure well. Lab/Radiology/Diagnostic Review: Laboratory review: Lab results in the last 12 hours: Recent Results (from the past 24 hour(s)) CBC with auto differential Collection Time: 03/23/23 2:44 PM Result Value Ref Range WBC 6.0 3.8 - 9.9 K/cumm Hgb 7.9 (L) 13.0 - 17.5 g/dL Hct 23.3 (L) 38.9 - 50.3 % Plt 247 150 - 400 K/cumm MPV 8.8 (L) 9.1 - 12.3 fL RBC 2.51 (L) 4.30 - 5.80 M/cumm MCV 92.8 81.3 - 96.4 fL MCH 31.5 27.1 - 33.3 pg MCHC 33.9 32.3 - 35.7 g/dL RDW CV 12.7 11.1 - 14.9 % RDW SD 43.0 35.7 - 48.1 fL NRBC abs 0.00 0.00 - 0.01 K/cumm Comprehensive metabolic panel Collection Time: 03/23/23 2:44 PM Result Value Ref Range Sodium 127 (L) 135 - 145 mmol/L Potassium, pl 5.2 (H) 3.3 - 4.9 mmol/L Chloride 94 (L) 97 - 110 mmol/L CO2 28 22 - 32 mmol/L Anion gap 5 2 - 15 mmol/L BUN 27 (H) 6 - 25 mg/dL Creatinine 0.48 (L) 0.80 - 1.30 mg/dL Glucose 114 70 - 199 mg/dL Calcium 8.5 8.5 - 10.3 mg/dL Bilirubin, total 0.2 0.1 - 1.2 mg/dL Protein, pl 6.3 (L) 6.5 - 8.5 g/dL Albumin 3.4 (L) 3.5 - 5.0 g/dL Alk phos 73 40 - 130 Units/L ALT 19 7 - 55 Units/L AST 38 10 - 50 Units/L Type and screen Collection Time: 03/23/23 2:44 PM Result Value Ref Range Tam, indirect Negative ABO Rh A Positive Protime-INR Collection Time: 03/23/23 2:44 PM Result Value Ref Range PT 11.8 10.3 - 13.7 sec INR 1.04 0.90 - 1.20 aPTT Collection Time: 03/23/23 2:44 PM Result Value Ref Range aPTT 28 28 - 38 sec Troponin I high-sensitivity series (baseline, 2hr, 4hr, 6hr) Collection Time: 03/23/23 2:44 PM Result Value Ref Range Trop I hs 6 <=35 ng/L Differential, auto Collection Time: 03/23/23 2:44 PM Result Value Ref Range Neutrophil abs 4.8 1.5 - 6.5 K/cumm Imm gran abs 0.0 0.0 - 0.1 K/cumm Lymphocyte abs 0.6 (L) 0.8 - 3.3 K/cumm Monocyte abs 0.6 0.2 - 0.8 K/cumm Eosinophil abs 0.0 0.0 - 0.5 K/cumm Basophil abs 0.0 0.0 - 0.1 K/cumm Neutrophil pct 79.0 % Imm gran pct 0.7 % Lymphocyte pct 10.4 % Monocyte pct 9.3 % Eosinophil pct 0.3 % Basophil pct 0.3 % eGFR Collection Time: 03/23/23 2:44 PM Result Value Ref Range eGFR >90 >=60 mL/min/1.73 m2 Imaging review: I have independently examined the CT neck with contrast image(s), which appears to reveal large soft-tissue dense mass at the left base of tongue that extends to the floor of mouth, lingual surface of the mandible, and tonsillar fossa. No cervical lymphadenopathy appreciated. Assessment/Plan 63 y.o. male with oral cavity bleeding requiring transfusions in the setting of recently diagnosed left oropharyngeal mass. Scope and physical exam negative for source of bleeding. The mass is submucosal and hypomobile to the tongue musculature. We discussed that the next steps of his workup include tissue biopsy and additional imaging with a PET-CT. We discussed potentially performing a bedside biopsy, but this was challenged by trismus, decreased tongue mobility, and concern for hemostasis insetting of recent bleeding. Therefore, we deferred biopsy for now. Recommend further workup with CTA to evaluate for sources of bleeding. - Head and neck CTA - No acute ENT intervention - Appreciate care per ED for electrolyte correction and acute blood loss anemia Thank you for this consult. We will be available if you have further questions or concerns. Hiren Blackwell MD Otolaryngology [phone] For Questions during Business hours: [facility] secure chat or phone call: [facility]>Otolaryngology> [facility] Existing Consults After Hours: [facility]>Otolaryngology> [facility] Resident Primary (New Consults) Clinic Phone number for follow ups: [phone] Cosigned by Amy Flores MD at 03/24/2023 5:34 PM FREIGHT BROKER GHT BROKER GHT BROKER Associated attestation - Amy Flores MD - 03/24/2023 5:34 PM FREIGHT BROKER I have seen and examined the patient on 03/23/2023. I agree with the findings and plan of care as documented in the resident's/fellow's note., as discussed with the resident/fellow., and have reviewedthe CT and CTA results. Large likely T4 left tonsillar mass. Will likely require operative biopsy given challenge of accessing oropharynx and possibility of difficulty controlling bleeding at bedside. Would defer until blood counts have recovered. documented in this encounter Nursing Notes * Daniela Pardo RN - 03/31/2023 5:41 PM CST Pt AA&Ox4, VSS. Pt given discharge instructions and verbalizes understanding. Pt sent home withall belongings. Pt given extra tube feeding supplies and g-tube dsgs. [facility] and [facility]. GHT BROKER * Gretchen Tao RN - 03/30/2023 11:47 AM CST Notified MD and PFT who requested for the patient to come down to have testing done, of an update of the patient being titrated down a 0.5 liter to 2.5 liters per nasal cannula and is satting appropriately at 95%. GHT BROKER * Gretchen Tao RN - 03/30/2023 7:29 AM CST Received message from MD about after the patient is cleared from PETSCAN, g tube formula and diet will be ordered. RAM * Gretchen Tao RN - 03/29/2023 10:38 AM CST Reassessed patient, he is resting with eyes closed at this time, vitals continue to be stable. No changes at this time noted. Patient continues on 3 liters per nasal cannula continuous and sats between 94-95%. Will continue to monitor RAM * Gretchen Tao RN - 03/29/2023 10:00 AM CST Vitals are performed again. Assessment is within normal limits, patient continues to rest. Titration of oxygen is down to 3 liters per nasal cannula. Patient is 94%. Patient continues to have shallowrespiration, no signs of distress or shortness of breath. Inquired to the MD of tube feeding orders. RAM * Gretchen Tao RN - 03/29/2023 9:53 AM CST Patient went down for a peg tube insertion this morning, transport brought patient back to the floor at 0920. Patient is on 5 liters per nasal cannula continuous, satting at 95%. Patient responds to verbal and tactile stimuli, opens his eyes but falls back to sleep. Report given that the patient had fentanyl and versed. Vitals are started at 0930, per Md order to do post op vitals, 0945, titratedoxygen down to 4 liters per nasal cannula continuous. She is satting at 94-95%. Per MD order statesto titrate until oxygen is 92%. Patient's Dobhoff is removed, peg tube is in place. GHT BROKER * Ruchi Fan - 03/29/2023 6:36 AM CST Called daughter to inform her of patients condition and g tube reinsertion today. She wants the morning nurse to call when dad is finished with procedure. Will pass it on in morning hand off GHT BROKER * Ruchi Fan - 03/29/2023 1:54 AM CST Patient called for nurse to come to the room at 0100 upon entering the room patient informed nurse that as he was standing up to use the urinal and his freshly inserted peg popped out. Nurse noticed that the peg was intact with bulb still inflated. Patient stated it didn't hurt when it came out. Oncall resident was called and they came to the room to assess patient . Nurse was instructed to put a glasgow catheter in place to hold the site open until patient goes to IR in the morning. Patient hasno s/s of pain or distress at this time will continue to monitor for the remainder of shift. GHT BROKER documented in this encounter ED Notes * Emelyn Solares MD - 03/23/2023 2:45 PM CST HPI Chief Complaint Patient presents with ??? Cyst HPI Aleksey Garcia is a 63-year-old male presenting for bleeding from a throat mass from outside hospital with a past medical history of hypertension. The patient that he was recently diagnosed with this mass on Tuesday and has been unable to see his specialist for further differentiation of the mass. For the past 2 days the patient had was able to be discharged with stable at her, however, when he woke up this morning and went to the bathroom he began to cough up some blood. At the outside hospital,the patient received a neck soft tissue CT was concerning for bleeding from the mass and was transferred to this hospital for higher management of care and possible embolization by IR. The patient received 1 unit of blood at the outside hospital and was vital signs were stable there and on route. Patient History: There are no problems to display for this patient. No past medical history on file. No past surgical history on file. No family history on file. Social History Tobacco Use ??? Smoking status: Not on file ??? Smokeless tobacco: Not on file Substance and Sexual Activity ??? Alcohol use: Not on file ??? Drug use: Not on file ??? Sexual activity: Not on file Social History Social History Narrative ??? Not on file Review of Systems Review of Systems The patient denies any fever, chills, chest pain, nausea, vomiting. Physical Exam ED Triage Vitals Temp Pulse Resp BP SpO2 03/23/23 1441 03/23/23 1439 03/23/23 1439 03/23/23 1439 03/23/23 143 36.1 ??C (96.9 ??F) 73 18 143/81 98 % Temp src Heart Rate Source Patient Position BP Location FiO2 (%) 03/23/23 1441 -- -- -- -- Axillary Height Height Method Weight Weight Method 03/23/23 143 -- 03/23/23 143 -- 1.651 m (5' 5 ) 43.1 kg (95 lb) Physical Exam Constitutional: General: He is not in acute distress. Appearance: He is ill-appearing. Comments: Cachectic HENT: Head: Normocephalic. Mouth/Throat: Mouth: Mucous membranes are moist. Comments: Exam was limited due to the patient not being fully able to open his mouth status of the mass. However, it appeared that the patient was having trouble fully swallowing his secretions. Additionally, it appeared that the back of his throat was occluded by the mass. Eyes: Extraocular Movements: Extraocular movements intact. Conjunctiva/sclera: Conjunctivae normal. Cardiovascular: Rate and Rhythm: Normal rate and regular rhythm. Pulses: Normal pulses. Heart sounds: Normal heart sounds. Pulmonary: Effort: Pulmonary effort is normal. Breath sounds: Normal breath sounds. Abdominal: General: Abdomen is flat. Palpations: Abdomen is soft. Tenderness: There is no abdominal tenderness. There is no guarding. Musculoskeletal: General: No swelling or signs of injury. Normal range of motion. Cervical back: Normal range of motion. Left lower leg: No edema. Skin: General: Skin is dry. Coloration: Skin is pale. Comments: Skin was cool to the touch. Neurological: General: No focal deficit present. Mental Status: He is alert and oriented to person, place, and time. Psychiatric: Mood and Affect: Mood normal. Behavior: Behavior normal. MDM Given the patient's newly diagnosed mass and current bleeding and anemia, ENT was consulted for possible surgical evaluation and involvement of IR for possible embolization. In preparation for possible surgery, evaluation patient's stability, and rule out of infection a CBC, CMP, UA, coags, troponin, EKG, type and screen. It is likely that this patient will be admitted for further workup at the of the mass as well as possible operative management. Medical Decision Making Amount and/or Complexity of Data Reviewed Labs: ordered. ECG/medicine tests: ordered. Risk Decision regarding hospitalization. Attending Summary of Care ED Course as of 03/23/23 1844 Time: 03/23 1433 Comment: Patient seen and examined at bedside by me. I accepted the patient in transfer from [facility] due to bleeding oropharyngeal mass. As far as I understand, CTA was not able to be performed at their facility. I am not able to access their records or imaging. On exam, patient has an obvious oropharyngeal mass with slightly garbled speech due to involvement of his tongue but is currently protecting his airway. Anticipate ENT consult. No active bleeding noted on my exam that would indicate need for emergent interventional radiology at this time but will observe. Blood from OSH currently hanging; will recheck Hgb here to assess for interval decrease since transfer was initiated By: Alessandra Licea, Time: 03/23 1441 Comment: Dr. Solares speaking with ENT. By: Winsome Black MD Time: 03/23 1454 Comment: Repeating CBC, preparing 1 unit PRBCs, ENT recs pending By: Alessandra Licea DO Time: 03/23 1509 Value: Hgb(!): 7.9 Comment: Will hold off on transfusion, pending change in clinical status or ENT recs. ENT recs pending By: Winsome Black MD Time: 03/23 1528 Comment: ENT primary eval no overt signs of bleeding, get CTA head and neck, they think unlikely offer surgery this admission so not likely ENT service admission By: Nannette Lam MD Time: 03/23 1538 Value: Potassium, pl(!): 5.2 Comment: (Reviewed) By: Winsome Black MD Time: 03/23 1538 Value: Trop I hs: 6 Comment: Will cancel series. By: Winsome Black MD Time: 03/23 1547 Comment: CTA head and neck pending; will wait for this to result prior to rolling upstairs By: Winsome Black MD Time: 03/23 1553 Comment: Attempted to sign out this patient to the ICU however they would like a note from ENT stating that patient would benefit from ICU level care as opposed to floor By: Winsome Black MD Time: 03/23 1602 Comment: Pending ENT call back By: Winsome Black MD Time: 03/23 1610 Comment: Pt diaphoretic, SBP to 90s, will transfuse 1u pRBCs now By: Nannette Lam MD Time: 03/23 1615 Comment: Getting CXR and EKG By: Nannette Lam MD Time: 03/23 1627 Comment: Pending ENT recs for possible bx. By: Winsome Black MD Time: 03/23 768 Comment: ENT didn't do biopsy because it was too far back to do at bedside. Will see what CTA lookslike but if negative no acute interventions, admission would be for FTT and lab abnormalities By: Nannette Lam MD Time: 03/23 1727 Value: Hgb(!): 7.6 Comment: Lateral, will continue to trend By: Winsome Black MD Time: 03/23 835 Comment: ENT deferring bedside biopsy, pt comfortable, will change request to floor. By: Winsome Black MD Time: 03/23 1841 Comment: Teach sign-out: 63M here w/ bleeding neck mass. Has bed. By: Honorio Mendenhlal MD Time: 03/23 1842 Comment: CTA w/o active extravasation: Large ulcerative left oropharyngeal neck mass highly suspicious for malignancy such as squamous cell carcinoma involving the left parapharyngeal, data operations manager, submandibular, and sublingual spaces with osseous involvement of the left mandible. Multiple branches of the left external carotid artery including the ascending pharyngeal and lingual branches course through this mass without evidence of active arterial extravasation. By: Nannette Lam MD Oral mass Anemia, unspecified type Emelyn Solares MD Resident 03/23/23 [id number] Cosigned by Alessandra Licea DO at 03/29/2023 12:06 AM FREIGHT BROKER GHT BROKER GHT BROKER Associated attestation - Alessandra Licea DO - 03/29/2023 12:06 AM FREIGHT BROKER I have seen and examined the patient on 03/23/2023. I reviewed the resident's note and agree with the findings and plan of care as documented in the resident's note with modifications as documented here. 1. Oral mass 2. Anemia, unspecified type 3. Acute blood loss anemia PROCEDURE ATTESTATION: Procedure: laryngoscopy I was present and participated directly in the entire procedure. laryngoscopy Procedure was performed by the ENT resident. * Noemy Loera RN - 03/23/2023 2:31 PM CST Bed: [facility] Expected date: 03/23/23 Expected time: 12:59 PM Means of arrival: Ambulance Comments: EMS Noemy Loera RN 03/23/23 1431 GHT BROKER * Catalina Garcia RN - 03/23/2023 2:29 PM CST Coming from [facility] for a mass in the mouth on the left side of his mouth that has been bleeding. Per EMS pt's hemoglobin was 4 and OSH started one unit of blood which is still running on arrival. EMS states they did not give any medications in route. EMS states pt also has left sided facial droop and left sided weakness that OSH thought was from the mass. 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 Medications administered (see MAR). Problem: Health Behavior: Goal: Understanding of discharge needs will improve Outcome: Adequate for Discharge Problem: Lack of Knowledge: Goal: Ability to develop a pain control plan will improve Outcome: Adequate for Discharge Goal: Ability to identify pain intensity on a pain scale and rate it consistently will improve Outcome: Adequate for Discharge Goal: Ability to notify healthcare provider of pain before it becomes unmanageable or unbearable will improve Outcome: Adequate for Discharge Problem: Medication: Goal: Satisfaction with pain management regimen will improve Outcome: Adequate for Discharge Problem: Sensory: Goal: Ability to identify factors that increase the pain will improve Outcome: Adequate for Discharge Goal: Pain level will decrease Outcome: Adequate for Discharge Flowsheets (Taken 03/31/2023 0816) Patient's Stated Pain Goal: No pain Pain Score: 6 Problem: Lack of Knowledge: Goal: Ability to state ways to decrease the risk of falls will improve Outcome: Adequate for Discharge Problem: Safety: Goal: Will remain free from falls Outcome: Adequate for Discharge Goal: Will remain free from injury from falls Outcome: Adequate for Discharge Goal: Will remain free from falls and injury in home environment Outcome: Adequate for Discharge Problem: Activity: Goal: Mobility will improve Outcome: Adequate for Discharge Problem: Lack of Knowledge: Goal: Understanding of ways to prevent future skin breakdown will improve Outcome: Adequate for Discharge Goal: Ability to identify appropriate dietary choices will improve Outcome: Adequate for Discharge Problem: Nutritional: Goal: Dietary intake will improve Outcome: Adequate for Discharge Goal: Ability to maintain a balanced intake and output will improve Outcome: Adequate for Discharge Problem: Skin Integrity: Goal: Risk for impaired skin integrity will decrease Outcome: Adequate for Discharge Flowsheets Taken 03/31/2023 0816 Skin Color: Appropriate for ethnicity Skin Condition/Temp: Warm Dry Skin Integrity: Bruising Taken 03/31/2023 0700 Repositioned: Turn self Goal: Ability to demonstrate warm and dry skin will improve Outcome: Adequate for Discharge Goal: Circulation will improve to fullest extent possible Outcome: Adequate for Discharge Problem: Lack of Knowledge Goal: Knowledge of risk factors and measures for prevention of condition will improve Outcome: Adequate for Discharge Problem: Physical Regulation Goal: Spread of further infection will be prevented Outcome: Adequate for Discharge Goal: Complications related to the disease process, condition, or treatment will be avoided or minimized Outcome: Adequate for Discharge GHT BROKER * Plan of Care - Leatha Kirkpatrick RN - 03/31/2023 2:45 PM CST 03/31/23 1431 Discharge Summary Discharge Disposition Private residence Equipment/Provider Needs Home Equipment Needs Identified;Home Provider Services Needs Identified Home Care Agency Information Home Care Agency Type #1: Care Home;Physical Therapy;Occupational Therapy Home Care Agency Name [facility] Home Care Agency Contact Spoken to Teresa Doss Home Care Agency Order Faxed to access through [facility] Home Care Agency Used? -- Home Equipment Information Home Equipment Provider Name [facility] Home Equipment Provider Home Equipment Provider Contact Spoken to Shanika Royal Home Equipment Provider Order Faxed to Access through [facility] Equipment Ordered Stationary O2 concentrator, portable gaseous O2, and Osmolite 1.5 mana tube feeds with supplies Second Home Eqp Provider Used? Not Needed Discharge Additional Assistance Does the patient need discharge transport arranged? No (Patient's daughter will provide transportation home at discharge.) Post Discharge Care Provider Post Discharge Care Plan DC Summary has been faxed to next level of care provider (see Follow Up Providers) Per medical team, patient is medically stable for discharge at this time. Follow up appointment hasbeen scheduled for 05/02/23 at 10:00 am with patient's PCP - no earlier appointment available for hospital discharge follow up appt per PCP office. Transportation will be provided by patient's daughter. Patient and/or family are agreeable with the plan. If any further discharge needs arise, please contact the covering telephonic case manager. ADDENDUM, 03/31/23 @ 9819: CM notified by [facility] that they cannot see patient at this time because they cannot take HH orders from a PA, and the PAs supervising MD is on vacation for the next few weeks. No accepting HH agencies due to either staffing issues or patient's insurance. Patient instructed to call his PCP office or the Oncologist's office if he has any problems with his G- tube. [facility] DIANNA Coburn, program management manager GHT BROKER GHT BROKER * Plan of Care - Leatha Kirkpatrick RN - 03/31/2023 2:11 PM CST Per [facility], they do not have staffing to provide home care to this patient. [facility] is now set to provide Home O2 and Tube Feeds to patient. [facility] will provide HH SN/PT/OT to patient with a start of care date of 04/07/23 or sooner, if they can reach patient's PCP and the PCP agrees to sign future HH orders for patient. DIANNA Coburn, program management manager GHT BROKER * Plan of Care - Moni Angela MSW - 03/31/2023 1:28 PM CST Social work notified by the team that patient will likely be disabled for the next 13+ months. Social work spoke with patient at the bedside. Patient reported he is retired, receiving his longterm benefit - $900 monthly. Social work discussed patient's interest in applying for disability benefitsand transferring from his current managed Medicaid to traditional Medicaid [place] plan. Patient stated he's interested in getting more information of disability benefit as well as wanted to see if there's any difference amount of income in his longterm vs. Disability. Social work reached out to [employer] for further assistance for disability and Medicaid process and provided patient's PCP information for [place] of the [place] medical evaluation [place]. No further Social work needs at this time. Gopal Angela LMSW GHT BROKER * Hospital Course - Erica Eli MD - 03/31/2023 12:23 PM CST #L Oropharyngeal Mass c/f Malignancy #Hemoptysis/Acute Blood Loss Anemia Patient presented with worsening oral bleeding for past month, dysphagia, worse w/ solids. Also with 40 lb+ wt loss over past year. Pt went to OSH 03/[address] neck showed large L oropharyngeal massalong base of tongue, floor of mouth, GTS, lingual mandible. Was d/c'd home with plan to f/u with [facility]. On 03/23 developed another episode of hemoptysis, reports ~1pint. BPs elevated, normocardic, on room air. Hgb 9.5 (03/21)->7.6 on admission. CTA H&N with large ulcerative L oropharyngeal neck mass 7.2x4.3x3.3cm highly suspicious for malignancy such as SCC involving L parapharyngeal, data operations manager, submandibular, sublingual spaces with ossesous involvement of L mandible; no e/o active extr avasation. CXR with L hemidiaphragm, mild L basilar reticular nodular opacities c/f atelectasis vs bronchiolitis related to aspiration. ENT consulted. Patient underwent biopsy with NGT placement on 03/25. 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 Patient underwent PET-CT on 03/30 which showed known L oropharynx mass, probable metastatic left level IIa lymph n ode and mildly hypermetabolic right supraclavicular lymph node suspicious for anum metastasis, andaspiration pneumonia in the bilateral lung bases with likely reactive mediastinal and hilar lymph nodes. Case was discussed at ENT tumor board, who ultimately decided on chemoradiation without surgical intervention at this time. Medical and radiation oncology were consulted, who met with patient inpatient. Patient expressed interest in following up with Oncology at [facility] in [place], which will be arranged by medical and radiation oncology teams. ENT will schedule follow-up as needed. Pain controlled on PRN APAP, oxy. Hgb remained stable throughout the hospitalization. #Dysphagia #Malnutrition Dysphagia most likely 03/11 oropharyngeal mass. Evaluation by STUBBER with MBS on 03/24, who recommended full liquid diet without purees, liquid/crushed meds. Dietitian consulted for malnutrition. Dobhoff placed by ENT on 03/25. TF started and titrated to goal. Ultimately underwent PEG placement by IR on 03/28 with exchange due to PEG fall out on 03/29. Bolus TF titrated to goal (Osmolite 1.5 Mana 240 ml/hrbolus x4 daily with 60ml flush q6h). Patient continued FLD with ensure, and receive thiamine, vitamin b6, folic acid, MVI. Keflex was started on 03/29 for PEG exchange, was switched to levofloxacin for aspiration PNA as described below. Labs were monitored for possible refeeding, and electrolytes remained wnl. Patient discharged on home health which needs to be signed by PCP and/or possibly oncologist when patient follows-up in clinic to start. #Hypoxic Respiratory Failure #Aspiration Pneumonia Unknown duration. Likely acute on chronic. Occasional desaturations requiring 2L NC. Desats to [id number] 03/28-03/29 ON. Required up to 5L NC following PEG exchange on 03/29, that was weaned to RA. 03/29 RPP negative. 03/30 CXR bilateral pulm infiltrates R>L, which could represent pneumonia, perhaps from aspiration. Confirmed aspiration pneumonia on PET/CT. Patient started on 5 days of levofloxacin (03/31-04/04). Given extensive smoking and productive cough history, possible underlying COPD. Patientunderwent O2 assessment on 03/30, which indicated that he needs 2L NC at rest and exertion; home O2 ordered. Recommend that he follows-up with PCP for possible PFT. #Fall Patient fell and hit his head on the wall while trying to get out of bed on 03/29. Patient denied GANDHI, dizziness, palpitations, LOC. Reported slipping on his feet. L ear laceration noted. Most likely from residual anesthesia from PEG exchange earlier in the AM. Head CT without acute findings. Ear laceration healed. PT/OT recommended home with supervision, outpatient PT, home health OT. Patient discharged on , home PT/OT which needs to be signed by PCP and/or possibly oncologist to start. #Sinus opacification Patient found to have L maxillary and sphenoid sinus opacification with mucosal thickening in the ethmoid and sphenoid sinuses on hCT he underwent on 03/29 after his fall. PET negative for malignancy.Patient remained asymptomatic. ENT recommended nasal spray PRN. #Hyponatremia #SIADH Na 127 on admission. Unclear chronicity. Likely multifactorial hypotonic hypovolemic iso poor PO intake (which is now resolved) and mild SIADH due to malignancy. Initial improvement to 133 after 1L IVF 03/24. Repeat Serum osms 271, urine osms 479, Justin 139, c/f mild SIADH. IVF stopped with increase in PO intake and TF. Na remained stable around 131-133. #HTN Continued home lisinopril 10mg daily #Active TUD 30 pack yr hx. Smokes 0.5ppd (cut back from 1ppd). Nicotine patches while inpatient. Encouraged cessation. #Hx of Urinary Retention Previously required glasgow in past, since removed. Patient urinated without difficulty during this hospitalization #Mood Continued home escitalopram 20mg daily GHT BROKER GHT BROKER GHT BROKER GHT BROKER GHT BROKER GHT BROKER GHT BROKER GHT BROKER GHT BROKER GHT BROKER * Plan of Care - Leatha Kirkpatrick RN - 03/31/2023 9:21 AM CST CM call to [facility] - checked to see if they take patient's insurance. She reports they do not accept [facility] Plan. CM sent referral via [facility] to [facility] for Tube Feeds. Awaiting response re: acceptance of referral. CM received call from [facility] - they are unable to accept patient for HH services. CM call to [facility], phone: [phone] - they are reviewing the referral and will get back with CM later today. [facility] has accepted patient, but they are unable to start care until 04/07/23. If [facility] cannot accept patient with earlier SOC, CM will discuss with Medicine Team to determine next steps. CM spoke with patient's daughter in evening on 03/30/23 - daughter reports she was certified to provide tube feeds for two years and she is very familiar and comfortable with tube feeds. Leatha Kirkpatrick, MSN, program management manager GHT BROKER * Plan of Care - Iliana Sampson - 03/31/2023 5:49 AM CST Problem: Lack of Knowledge: Goal: Ability to develop a pain control plan will improve Outcome: Progressing Problem: Lack of Knowledge: Goal: Ability to state ways to decrease the risk of falls will improve Outcome: Progressing Problem: Safety: Goal: Will remain free from falls Outcome: Progressing Problem: Sensory: Goal: Pain level will decrease Recent Flowsheet Documentation Taken 03/30/20232131 by Iliana Sampson Pain Score: 4 Taken 03/30/20232031 by Iliana Sampson Pain Score: 6 Problem: Skin Integrity: Goal: Risk for impaired skin integrity will decrease Recent Flowsheet Documentation Taken 03/30/20231954 by Iliana Sampson Skin Color: Appropriate for ethnicity Skin Condition/Temp: Warm Dry Skin Integrity: Bruising Goals: Clinical Goals for the Shift: (toleration of formula) Nursing Home Patient Centered Goal for Treatment: nutritional replacement Summary: Pt tolerating bolus feed titration well. Pt c/o pain;PRN pain meds given per order. No complaints or signs of distress noted. Bed alarm in place, bed in lowest position, call guerrier within reach. GHT BROKER * Plan of Care - Leatha Kirkpatrick RN - 03/30/2023 4:54 PM CST CM sent referral via [facility] to [facility] for patient's new tube feeds/supplies. At goal, patient will need 240 mL q 6 hours with a 60 mL minimum free water flush with each feeding. Awaiting response from [facility]. ADDENDUM, 03/30/23 @ 1835: Patient is getting Osmolite 1.5 calorie TFs. [email or web address] Leatha Kirkpatrick, MSN, program management manager GHT BROKER GHT BROKER * [facility] Note - Leatha Kirkpatrick RN - 03/30/2023 4:44 PM CST Images from the original note were not included. Ofelia Santos RD Registered Dietitian Nutrition Progress Notes Signed Date of Service: 03/29/2023 2:18 PM Signed Expand All Collapse All NUTRITION ASSESSMENT Nutrition Status: Patient meets criteria for moderate chronic malnutrition, reference ASPEN guidelines. Present on Admission: Yes REASON FOR ASSESSMENT: Follow Up tube feeding assessment Encounter Date: 03/29/23 2:18 PM Admission Date: 03/23/2023 LOS: 6 days HPI: Patient is a 63 y.o. 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 Patient is somewhat a difficult historian in terms of timeline of events. He states that over the past year he's noticed a 40 lb weight loss and increasing difficulty with swallowing solids (okay with liquids), as well as a month of worsening N/V, and intermittent hemoptysis. on 03/21/23 where they found a large L oropharyngeal mass on CT neck. Six months ago he moved from [place] to [place], [place] where he lives with his daughter and niece's family. Patient denies , diarrhea, constipation, Objective Medical History History reviewed. No pertinent past medical history. Surgical History Past Surgical History: Procedure Laterality Date APPENDECTOMY IR G TUBE PLACEMENT PERCUTANEOUS N/A 03/28/2023 TONSILLECTOMY Social History Social History Tobacco Use Smoking status: Every Day Current packs/day: 1.50 Average packs/day: 1.5 packs/day for 44.1 years (66.2 ttl pk-yrs) Types: Cigarettes Start date: 02/1979 Passive exposure: Never Smokeless tobacco: Never Substance and Sexual Activity Drug use: None Sexual activity: None Alcohol Use: Not At Risk (03/25/2023) AUDIT-C Frequency of Alcohol Consumption: Monthly or less Average Number of Drinks: 1 or 2 Frequency of Binge Drinking: Never MEDICATION/LAB REVIEW: Scheduled Meds: cephalexin, 500 mg, oral, BID escitalopram, 20 mg, oral, Daily folic acid, 1 mg, oral, Daily lisinopriL, 10 mg, oral, Daily multivitamin therapeutic, 1 tablet, oral, Daily nicotine, 1 patch, transdermal, Daily pyridoxine, 100 mg, oral, Daily sodium chloride 0.9%, 0.5-20 mL, intra-catheter, Q8H TJ sodium chloride 0.9%, 0.5-20 mL, intra-catheter, Q8H TJ sodium chloride 0.9%, 0.5-20 mL, intra-catheter, Q8H TJ sodium zirconium cyclosilicate, 10 g, oral, Once thiamine, 100 mg, oral, Daily Continuous Infusions: sodium chloride 0.9%, 30 mL/hr sodium chloride 0.9%, 30 mL/hr PRN Meds: acetaminophen sodium chloride 0.9% sodium chloride 0.9% sodium chloride 0.9% lidocaine nortriptyline ondansetron ODT OR ondansetron oxyCODONE polyethylene glycol ramelteon sodium chloride 0.9% sodium chloride 0.9% sodium chloride 0.9% Recent Labs Lab Units 03/28/23195203/27/23201703/27/23 0911 SODIUM mmol/L 132* 131* 130* POTASSIUM PLASMA mmol/L 5.1* 4.5 4.0 CHLORIDE mmol/L 92* 95* 94* CO2 mmol/L 33* 32 31 BUN SERUM mg/dL 20 22 18 CREATININE mg/dL 0.49* 0.51* 0.57* [id number] mL/min/1.73 m2 >90 >90 >90 CALCIUM mg/dL 8.7 8.5 8.3* ALBUMIN g/dL -- 3.1* -- PHOSPHORUS PLASMA mg/dL 3.6 3.0 3.1 MAGNESIUM mg/dL 2.0 2.1 2.0 Recent Labs Lab Units 03/28/23195203/28/23 17003/28/23 1151 03/27/23201703/27/23 0911 03/27/23 0800 03/26/232011 GLUCOSE mg/dL 104 -- -- 88 127 -- 112 POC GLUCOSE MONITOR mg/dL -- 131 106 -- -- 138 -- ALT Date Value Ref Range Status 03/27/2023 21 7 - 55 Units/L Final AST Date Value Ref Range Status 03/27/2023 38 10 - 50 Units/L Final Alk phos Date Value Ref Range Status 03/27/2023 83 40 - 130 Units/L Final No results found for: HGBA1C , HDL , LDLCALC , CHOL , TRIG NURSING ASSESSMENT: Last BM Date: 03/25/23 Bowel Sounds (All Quadrants): Active, Present Justin Scale Score: 19 Skin Integrity: Bruising Vital Signs BP: 143/66 Temp: 36.4 ??C (97.5 ??F) Pulse: 75 Resp: 16 SpO2: 99 % Intake/Output Summary (Last 24 hours) at 03/29/2023 1418 Last data filed at 03/29/2023 0452 Gross per 24 hour Intake 30 ml Output 200 ml Net -170 ml Adult Malnutrition Scoring Tool (MST) What diet do you follow at home?: NO SOLIDS ONLY LIQUIDS Have You Recently Lost Weight Without Trying?: Yes (Comment) How Much Weight Have You Lost?: 34 lb or more Have you been eating poorly because of a decreased appetite?: Yes Malnutrition Screening Tool (MST) Score: 5 Hunger Screen - Admission Within the past 12 months the food we bought just didn't last and we didn't have money to get more.: Never true Within the past 12 months we worried whether our food would run out before we got money to buy more.: Never true Anthropometrics Weight: 51.7 kg (113 lb 14.4 oz) Admission Weight : 51.7 kg Weight Change: 8.57 kg (18.90 lbs) IBW/kg (Calculated) : 61.7 kg Height: 165.1 cm (5' 5 ) Weight in (lb) to have BMI = 25: 149.9 BMI (Calculated): 19 Wt Readings from Last 10 Encounters: 03/29/23 51.7 kg (113 lb 14.4 oz) ESTIMATED NEEDS: Total Kcal/kg Estimated Needs : 1723.68 Kcal/k. Type of Weight Used for Estimated Kcals: Current Total Protein Estimated Needs (gm): 74.04 Protein Needs Based on g/k.2 Type of Weight Used for Estimated Protein : Murray Dietary Orders (From admission, onward) Start Ordered 03/30/23 0001 NPO Diet Diet effective midnight 03/29/23 0940 03/29/23 1306 Adult Diet Full Liquid, Restricted Diet effective now Comments: NO purees Medications: non-orally (or liquid form, crushed with liquid) Small bites, single sips, double/repeat swallows to clear Upright when eating Question Answer Comment ([facility]) Diet type Full Liquid ([facility]) Diet type Restricted 03/29/23 1305 03/29/23 1300 Oral Nutrition Supplements ([facility]) Select Supplement: Ensure PLUS High Protein - Any Flavor; Quantity (# of cans): 1 can 3 times daily and at bedtime Question Answer Comment ([facility]) Select Supplement: Ensure PLUS High Protein - Any Flavor Quantity (# of cans): 1 can 03/29/23 0940 Allergies: Reviewed. IMPRESSION: Pt s/p PEG placement 03/29 Tube feed ordered and on hold for release when tube cleared for feeding use per IR Messaged nursing Order was released, took out and reordered Tube feeds may need to be adjusted per pt ability to take po Pt was on full liquid diet and drinking Ensure plus high protein last consuming 100% per I and O's prior to NPO see intervention below Labs noted Medications noted Wt Readings from Last 15 Encounters: 03/29/23 51.7 kg (113 lb 14.4 oz) ASPEN MALNUTRITION ASSESSMENT: Date of completion: 03/25/23 Pt with unintentional weight loss and inadequate energy intake ASPEN Malnutrition Assessment: ASPEN/AND Malnutrition Screening: Chronic illness or injury mild/moderate Chronic Illness/Injury Mild/Moderate Energy Intake: < 75% energy intake compared to estimated energy needs > (or equal to) 1 month Weight Loss: 20% in 12 months Body Fat: Mild/Moderate Muscle Mass: Mild/Moderate Patient Meets Criteria for Moderate Malnutrition: Yes Nutrition Focused Physical Exam: Subcutaneous Fat Loss Orbital Region - Surrounding the Eye: Somewhat hollow look, Slightly dark circles Cheek Region - Buccal Fat: Somewhat sunken appearance Muscle Loss [place] Region - Temporalis Muscle: Slight depression Clavicle Bone Region - Pectoralis Major, Deltoid, Trapezius Muscles: Protruding, prominent bone Posterior Calf Region - Gastrocnemius Muscle: Thin, minimal to no muscle definition ASPEN/AND Malnutrition Screening: Chronic illness or injury mild/moderate Energy Intake: < 75% energy intake compared to estimated energy needs > (or equal to) 1 month Weight Loss: 20% in 12 months Body Fat: Mild/Moderate Muscle Mass: Mild/Moderate Patient Meets Criteria for Moderate Malnutrition: Yes NUTRITION FOCUSED PHYSICAL EXAM: Completed. Subcutaneous Fat Loss Orbital Region - Surrounding the Eye: Somewhat hollow look, Slightly dark circles Cheek Region - Buccal Fat: Somewhat sunken appearance Muscle Loss [place] Region - Temporalis Muscle: Slight depression Clavicle Bone Region - Pectoralis Major, Deltoid, Trapezius Muscles: Protruding, prominent bone Posterior Calf Region - Gastrocnemius Muscle: Thin, minimal to no muscle definition NUTRITION DIAGNOSIS: Nutrition Diagnosis 1: Inadequate oral intake Related to: Oral pharyngeal, Chronic illness/injury Evidenced by: Weight loss, Need for full tube feeding INTERVENTION(S): Summary: Initial assessment, Enteral nutrition administration Monitor plan of care NUTRITION INITIATION Recommend Full liquid diet per speech recommendations when diet advanced and continue ensure plus high protein tid When PEG tube cleared for use recommend Enteral nutrition Bolus tube feeds Osmolite 1.5 @ 240mL/hr 4 x per day . Provides 1440 kcal (33 kcal/kg), 60 g protein (1.4 g/kg), 195g CHO, 47 g fat, and 731mL free water. begin at 60 ml/hr and increase by 60 ml q4hrs to goal of 240 ml then give 4 x day Minimum free water flush at 60 ml with each feeding 30 ml before and after If significant electrolyte abnormalities occur consider patient at significant risk and will provide additional recommendations. Continue VITAMIN RECOMMENDATIONS Thiamine: 100mg daily (PO / PT / IV) daily x 7 days Vitamin B6 (pyridoxine): 100mg (IV/PO/PT) x 5 days Folic Acid: 1mg (PO/PT) x 7 days MVI / Vitamin: 1 tablet (PO/PT) daily LAB / MONITORING RECOMMENDATIONS BMP, Magnesium, Phosphorus x 24 hours Monitor electrolytes (K+ > 3, Phos > 2, Mg >1.5) Weekly weight ELECTROLYTE REPLETION RECOMMENDATIONS Replete electrolytes as indicated In patients with hypokalemia and hypomagnesaemia, replete Magnesium first GOAL(S): Adequate nutrition to meet estimated needs by next assessment, Tolerance of enteral feeding at goalrate MONITORING/EVALUATION: TF tolerance, Labs, Electrolyte changes GHT BROKER * Plan of Care - Leatha Kirkpatrick RN - 03/30/2023 9:54 AM CST CM sent preemptive referrals via [facility]IN for HH SN and PT (if PT possible w/ patient insurance). Sent referral to 5 agencies due to patient's insurance - may be difficult to find accepting agency. CM awaiting responses. ADDENDUM, 03/30/23 @ 1656: [facility] can accept but cannot start care until 04/07/23. Other agencies have said they cannot accept patient's insurance. CM sent new referral for HH SN and PT to [facility] and [facility] as [facility] accept patient's insurance. Awaiting responses. rudy Kirkpatrick, MSN, program management manager GHT BROKER GHT BROKER * ECIN Note - Leatha Kirkpatrick RN - 03/30/2023 9:50 AM CST Images from the original note were not included. Patient Information: OT Eval and Treat Last 72 Hours OT Evaluation Row Name 03/24/23 1144 Chart Reviewed Yes -SW Session Type Evaluation -SW OT Received On 03/24/23 -SW Safe Environment Arm band checked;Patient found in supine;Gait belt utilized for all out of bed mobility HOB elevated -SW Subjective Agreeable to Therapy -SW Family/Caregiver Present No -SW Occupational Therapy-Patient Goal Pt agreeable to acute OT goals -SW Type of Home House -SW Home Layout Multi-level -SW Home Access Level entry -SW Bathroom Shower/Tub Tub/shower unit -SW Bathroom Toilet Standard -SW Home Mobility Equipment-Available Single point cane -SW Home Mobility Equipment-Currently Using Single point cane Pt reports he sometimes uses SPC, depending on how he is feeling - Level of [place] Independent with ADLs;Independent functional transfers;Independent with ambulation -SW Lives With Family Pt reports he is currently living with his niece and her family -SW Receives Help From Family FT assist from family -SW Driving No -SW Mode of Transportation Driven by others -SW ADL Assistance Independent -SW Vocational/Occupation Retired -SW Fall within the last 6 months Yes -SW Fall within the last 6 months comment Pt reports he passed out on Tuesday, leading to a fall -SW ADLS (WDL) X -SW Grooming: Where assessed Standing at sink -SW Grooming: Level of assistance Contact Guard Assist -SW Grooming: Assistance with Safety -SW LE Dressing: Where assessed Sitting;Standing -SW LE Dressing: Level of assistance Minimum Assist - LE Dressing: Assistance with Safety;Other (Comment);Requires assistive device for steadying balance-SW Room Mobility: Where assessed bed to and from bathroom -SW Health Management: Equipment Cane -SW Room Mobility: Level of Assistance Minimum Assist -SW Room Mobility comment assist for balance -SW Toilet Transfer From Bed -SW Toilet Transfer Type To and from -SW Toilet Transfer to Standard toilet -SW Toilet Transfer Technique Ambulating -SW Toilet Transfer: Equipment Single point cane;Grab bar -SW Toilet Transfers Minimal assistance -SW Toilet Transfers Comments Min A for balance in ambulation. CGA for sit/stand and stand/sit -SW Pain Assessment 0-10 -SW Pain Score 4 -SW Pain Location Head headache -SW Pain Interventions RN Notified RN Ranjana -SW Current Vision Wears glasses only for reading -SW Arousal/Alertness Alert;Appropriate responses to stimuli -SW Attention Span Appears intact -SW Memory Appears intact -SW Current communication Appears Intact -SW Orientation Oriented X4 (person, place, time, situation) -SW Following Commands Follows all commands and directions without difficulty -SW Safety Judgment Good awareness of safety precautions -SW Awareness of Errors Decreased awareness of errors;Assistance required to identify errors made;Assistance required to correct errors made -SW Insight Fully aware of deficits -SW Problem Solving Assistance required to identify errors made;Assistance required to generate solutions -SW Compliance/Behavior Easy to engage -SW Numbness/Tingling No -SW Movements Are Fluid and Coordinated 1 -SW Fine Motor WFL -SW Serial Opposition WFL -SW Hand Preference Right -SW Coordination Functional -SW Gross Grasp Functional 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, but he feels it is still functional -SW Balance Yes -SW Static Sitting-Balance Support No upper extremity supported;Feet supported -SW Static Sitting-Sitting Surface Bed -SW Static Sitting-Level of Assistance Independent -SW Dynamic Sitting-Balance Support No upper extremity supported;Feet supported -SW Dynamic Sitting-Balance Lateral lean;Forward lean;Reaching for objects -SW Dynamic Sitting-Sitting Surface Bed -SW Dynamic Sitting-Level of Assistance Distant supervision -SW Dynamic Sitting-Comments safety -SW Static Standing-Balance Support Unilateral upper extremity supported SPC -SW Static Standing-Standing Surface Floor -SW Static Standing-Level of Assistance Contact guard -SW Static Standing-Comment/# of Minutes balance and safety -SW Dynamic Standing-Balance Support Unilateral upper extremity supported SPC -SW Dynamic Standing-Balance Lateral lean;Forward lean;Reaching for objects -SW Dynamic Standing-Standing Surface Floor -SW Dynamic Standing-Level of Assistance Minimum assistance -SW Dynamic Standing-Comments balance and safety -SW Bed Mobility Yes -SW Bed Mobility From 1 Supine HOB elevated -SW Bed Mobility Type 1 To and from -SW Bed Mobility to 1 Edge of bed -SW Level of Assistance 1 Standby Assist -SW Bed Mobility Comments 1 safety -SW Transfer Yes -SW Transfer From 1 Sit -SW Transfer Type 1 To and from -SW Transfer to 1 Stand -SW Technique 1 Sit to stand;Stand to sit -SW Transfer Device 1 Single point cane -SW Transfer Level of Assistance 1 Contact Guard Assist -SW Trials/Comments 1 balance and safety -SW RUE Assessment WFL -SW LUE Assessment WFL -SW Putting on and taking off regular lower body clothing 3 -SW Bathing 2 -SW Toileting 3 -SW Putting on and taking off upper body clothing 3 -SW Personal Grooming 3 -SW Eating Meals 4 -SW Total Score (range 6-24) 18 -SW Score Interpretation 38.66 -SW Safe Environment End of Therapy Session Patient left supine in bed;Call light within reach;Overbed table within reach HOB elevated -SW Problem List Decreased endurance;Decreased balance;Decreased functional mobility;Decreased ADL independence;Decreased IADL independence -SW Barriers to Discharge Current Mobility Status;Current ADL Status - Barrier Comments fall risk -SW Plan Plan of care initiated;If this is the last note, consider this the discharge summary -SW OT Recommendation Care Home Facility -SW Patient at high risk for Falls;Injury due to decreased ability to care for self;Injury due to reduced functional status;Injury due to balance deficits;Injury at home as patient has not returned to prior level of function -SW Recommend SNF due to Risk of injury at home;Unable to safely care for self in the home;Skilled therapy needed to address care for self in the home;Skilled therapy needed to address functional deficits;Skilled therapy needed for patient to return to prior level of independence - OT Frequency during current admission 2-3x/wk -SW Treatment/Interventions during current admission ADL/IADL retraining;Balance Training;Bed mobility;Endurance training;Functional activity;Functional mobility training;Functional transfer training;Strengthening;Therapeutic activity;Therapeutic exercise;Transfer training - OT - Next Appointment 03/28/23 - OT Evaluation Complete Yes -SW User Zelaya (r) = Recorded By, (t) = Taken By, (c) = Cosigned By Initials Name Effective Dates SW Libia Kwan, OT 09/27/22 - OT Treatment Row Name 03/28/23 1327 Session Type Treatment -SW OT Received On 03/28/23 -SW Safe Environment Arm band checked;Patient found in supine;Gait belt utilized for all out of bed mobility -SW Subjective Agreeable to Therapy -SW Family/Caregiver Present No -SW Precautions Fall risk -SW Pain Assessment 0-10 -SW Pain Score 8 -SW Pain Location Abdomen g-tube location -SW Pain Interventions RN Notified ANGELITA Schumacher - Balance Yes -SW Static Sitting-Balance Support No upper extremity supported;Feet supported -SW Static Sitting-Sitting Surface Bed -SW Static Sitting-Level of Assistance Independent -SW Dynamic Sitting-Balance Support No upper extremity supported;Feet supported -SW Dynamic Sitting-Balance Lateral lean;Forward lean;Reaching for objects -SW Dynamic Sitting-Sitting Surface Bed -SW Dynamic Sitting-Level of Assistance Distant supervision -SW Dynamic Sitting-Comments safety -SW Static Standing-Balance Support No upper extremity supported -SW Static Standing-Standing Surface Floor -SW Static Standing-Level of Assistance Distant supervision -SW Static Standing-Comment/# of Minutes safety -SW Dynamic Standing-Balance Support No upper extremity supported;Unilateral upper extremity supported -SW Dynamic Standing-Balance Lateral lean;Forward lean;Reaching for objects -SW Dynamic Standing-Standing Surface Floor -SW Dynamic Standing-Level of Assistance Close supervision -SW Dynamic Standing-Comments safety -SW ADLS (WDL) X -SW Grooming: Where assessed -- Pt declined grooming on this date -SW LE Dressing: Where assessed Sitting;Standing -SW LE Dressing: Level of assistance Standby Assist -SW LE Dressing: Assistance with Safety -SW Room Mobility: Where assessed within pt's room and in hallway -SW Room Mobility: Level of Assistance Contact Guard Assist -SW Room Mobility comment safety -SW Bed Mobility Yes -SW Bed Mobility From 1 Edge of bed -SW Bed Mobility Type 1 To -SW Bed Mobility to 1 Supine HOB elevated -SW Level of Assistance 1 Standby Assist -SW Bed Mobility Comments 1 safety -SW Transfer Yes -SW Transfer From 1 Sit -SW Transfer Type 1 To and from -SW Transfer to 1 Stand -SW Technique 1 Sit to stand;Stand to sit -SW Transfer Device 1 No device -SW Transfer Level of Assistance 1 Standby Assist -SW Trials/Comments 1 safety -SW Toilet Transfer From -- hallway to toilet to bed -SW Toilet Transfer Technique Ambulating -SW Toilet Transfer: Equipment Hand hold;Grab bar -SW Toilet Transfers Minimal assistance -SW Toilet Transfers Comments SBA for safety in stand/sit. CGA for balance and safety in ambulation. Min A for force production in sit/stand 2/2 low toilet height -SW Arousal/Alertness Alert;Appropriate responses to stimuli -SW Attention Span Appears intact -SW Current communication Appears Intact -SW Orientation Oriented X4 (person, place, time, situation) -SW Following Commands Follows all commands and directions without difficulty -SW Safety Judgment Good awareness of safety precautions -SW Awareness of Errors Assistance required to identify errors made;Assistance required to correct errors made -SW Insight Fully aware of deficits -SW Problem Solving Assistance required to identify errors made;Assistance required to generate solutions -SW Compliance/Behavior Easy to engage -SW Putting on and taking off regular lower body clothing 3 -SW Bathing 2 -SW Toileting 3 -SW Putting on and taking off upper body clothing 3 -SW Personal Grooming 3 -SW Eating Meals 4 -SW Total Score (range 6-24) 18 -SW Score Interpretation 38.66 -SW Safe Environment End of Therapy Session Patient left supine in bed;Call light within reach;Overbed table within reach HOB elevated -SW Problem List Decreased endurance;Decreased balance;Decreased functional mobility;Decreased ADL independence;Decreased IADL independence;Pain -SW Barriers to Discharge Current Mobility Status;Current ADL Status -SW Barrier Comments fall risk - Plan Alter current plan;If this is the last note, consider this the discharge summary -SW Plan Comments change in OT recommendation -SW OT Recommendation Home with family;Home with 24 hour supervision;Home Health OT -SW Patient at high risk for Falls;Injury due to decreased ability to care for self;Injury due to reduced functional status;Injury due to balance deficits;Injury at home as patient has not returned to prior level of function -SW OT Frequency during current admission 2-3x/wk -SW Treatment/Interventions during current admission ADL/IADL retraining;Balance Training;Bed mobility;Endurance training;Functional activity;Functional mobility training;Functional transfer training;Strengthening;Therapeutic activity;Therapeutic exercise;Transfer training - Progress during current admission Progressing toward goals -SW OT - Next Appointment 03/30/23 - User Zelaya (r) = Recorded By, (t) = Taken By, (c) = Cosigned By Initials Name Effective Dates SW Libia Kwan OT 09/27/22 - OT Notes 03/28/2023 3:19 PM Progress Notes signed by Libia Kwan OT , OT Eval and Treat Last Documented OT ASSESSMENT FLOWSHEET LAST DOCUMENTED (most recent) OT Evaluation - 03/30/23 0800 Cognition Orientation Oriented X4 (person, place, time, situation) OT TREATMENT FLOWSHEET LAST DOCUMENTED (most recent) OT Treatment - 03/30/23 0800 Cognition Orientation Oriented X4 (person, place, time, situation) OT Notes 03/28/2023 3:19 PM Progress Notes signed by Libia Kwan, OT , PT Eval and Treat Last 72 Hours PT Evaluation Row Name 03/25/23 0808 Chart Reviewed Yes -FL (r) KB (c) Session Type Evaluation -FL (r) KB (c) Safe Environment Arm band checked;Patient found in supine;Gait belt utilized for all out of bed mobility -FL (r) KB (c) Subjective Agreeable to Therapy -FL (r) KB (c) Additional Pertinent History HPI: 63M p/w hemoptysis PMH: HTN, active tobacco use, urinary retention, and 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 -FL (r) KB (c) Precautions None -FL (r) KB (c) Precaution Comments PPE worn by SPT (glvoes, mask) -FL (r) KB (c) Type of Home House -FL (r) KB (c) Home Layout Two level;Able to live on main level with bedroom/bathroom -FL (r) KB (c) Home Access Stairs to enter without rails -FL (r) KB (c) Entrance Stairs-Rails None -FL (r) KB (c) Entrance Stairs-Number of Steps 2 -FL (r) KB (c) Home Mobility Equipment-Available Single point cane -FL (r) KB (c) Home Mobility Equipment-Currently Using Single point cane -FL (r) KB (c) Level of [place] Independent functional transfers;Independent with ambulation -FL (r) KB (c) Lives With Family Adult niece and her family. Between his Son in law's brother and his ex-sister caroline, the patient states he would have multimedia educational specialist assistance if he needed it. -FL (r) KB (c) Fall within the last 6 months Yes -FL (r) KB (c) Fall within the last 6 months comment 2 patient states that he passed out and fell. -FL (r) KB (c) Prior Function Comments Patient reports that he was a modified independent household ambulator witha SC -FL (r) KB (c) Activity Tolerance Comments Gwen: Very Light -FL (r) KB (c) Pain Assessment 0-10 -FL (r) KB (c) Pain Score 6 -FL (r) KB (c) Pain Interventions RN Notified Winsome RN -FL (r) KB (c) Arousal/Alertness Alert -FL (r) KB (c) Orientation Oriented X4 (person, place, time, situation) -FL (r) KB (c) Following Commands Follows all commands and directions without difficulty -FL (r) KB (c) Safety Judgment Good awareness of safety precautions -FL (r) KB (c) Balance Yes -FL (r) KB (c) Static Sitting-Balance Support No upper extremity supported;Feet supported -FL (r) KB (c) Static Sitting-Sitting Surface Bed -FL (r) KB (c) Static Sitting-Level of Assistance Independent -FL (r) KB (c) Static Standing-Balance Support No upper extremity supported -FL (r) KB (c) Static Standing-Standing Surface Floor -FL (r) KB (c) Static Standing-Level of Assistance Independent -FL (r) KB (c) Bed Mobility Yes -FL (r) KB (c) Bed Mobility From 1 Supine -FL (r) KB (c) Bed Mobility Type 1 To and from -FL (r) KB (c) Bed Mobility to 1 Edge of bed -FL (r) KB (c) Level of Assistance 1 Modified Independent -FL (r) KB (c) Bed Mobility Comments 1 HOB elevated and use of UE on rails -FL (r) KB (c) Transfer Yes -FL (r) KB (c) Transfer From 1 Sit -FL (r) KB (c) Transfer Type 1 To and from -FL (r) KB (c) Transfer to 1 Stand -FL (r) KB (c) Technique 1 Sit to stand;Stand to sit -FL (r) KB (c) Transfer Device 1 No device -FL (r) KB (c) Transfer Level of Assistance 1 Independent -FL (r) KB (c) Ambulation Yes -FL (r) KB (c) Distance (ft) 1 150 -FL (r) KB (c) Surface 1 Level tile -FL (r) KB (c) Device 1 No device -FL (r) KB (c) Assistance 1 Standby Assist -FL (r) KB (c) Gait Deviations 1 Chiqui - decreased;Hip/knee flexion during swing phase - decreased -FL (r) KB (c) Ambulation Comments 1 Assist for safety -FL (r) KB (c) Stairs Yes -FL (r) KB (c) Stair Comments Assist for safety -FL (r) KB (c) Number of Stairs 1 5 -FL (r) KB (c) Rails 1 Right -FL (r) KB (c) Device 1 No device -FL (r) KB (c) Assistance 1 Standby Assist -FL (r) KB (c) RLE Assessment WFL -FL (r) KB (c) RLE Comments AROM screen only -FL (r) KB (c) LLE Assessment WFL -FL (r) KB (c) LLE Comments AROM screen only -FL (r) KB (c) Other PT Comments Discussed PT recommended POC and discharge and patient was agreeable. -FL (r) KB (c) How much difficulty does the patient have: Turning over in bed 4 -FL (r) KB (c) How much difficulty does the patient currently have: Sitting down and standing up from a chair witharms? 4 -FL (r) KB (c) How much difficulty does the patient have: Moving from lying on back to sitting on the side of the bed? 4 -FL (r) KB (c) How much difficulty does the patient have: Moving to and from a bed to a chair including wheelchair? 3 -FL (r) KB (c) How much help does the patient currently need: Walk in hospital room? 3 -FL (r) KB (c) How much help from another person does the patient currently need: Climbing 3-5 steps with a railing? 3 -FL (r) KB (c) Total 6 Click Score (range 6-24) 21 -FL Score Interpretation 45.55 -FL (r) KB (c) Safe Environment End of Therapy Session Patient left supine in bed;Call light within reach;Overbed table within reach -FL (r) KB (c) Prognosis Good -FL (r) KB (c) Plan Discharge -FL (r) KB (c) PT Recommendation/Plan Home with 24 hour supervision;Outpatient PT -FL (r) KB (c) PT Frequency during current admission One time visit (Discharge from this service) -FL (r) KB (c) PT Evaluation Complete Yes -FL (r) KB (c) User Zelaya (r) = Recorded By, (t) = Taken By, (c) = Cosigned By Initials Name Effective Dates FL Imelda Tobias. 02/12/23 - KB Mercedes Calabrese, PT 10/30/18 - PT TREATMENT (last 168 hours) PT Treatment No documentation. PT Notes Notes from 03/28/23 through 03/30/23 No notes of this type exist for this encounter. , PT Eval and Treat Last Documented OT ASSESSMENT FLOWSHEET LAST DOCUMENTED (most recent) PT Evaluation - 03/30/23 0800 Cognition Orientation Oriented X4 (person, place, time, situation) PT TREATMENT (most recent) PT Treatment - 03/30/23 0800 Cognition Orientation Oriented X4 (person, place, time, situation) PT Notes Notes from 03/28/23 through 03/30/23 No notes of this type exist for this encounter. GHT BROKER * Plan of Care - Gretchen Tao RN - 03/30/2023 9:42 AM CST Goals: Clinical Goals for the Shift: (safety, fall precautions, pain management, vs, skin integrity protection.) Nursing Home Patient Centered Goal for Treatment: nutritional replacement Patient's assessment is completed with vital signs, medication is given with a few sips of water, patient remains NPO at this time. He remains on 3 liters per nasal cannula continuous and denies any chest pain or shortness of breath. MD is at bedside giving information about plan of care. The patient is alert and oriented and admits to pain, oxy is requested and given for severe pain, patient is transported to [facility] this morning by stretcher and one transporter. Summary: Problem: Health Behavior: Goal: Understanding of discharge needs will improve Outcome: Progressing Problem: Lack of Knowledge: Goal: Ability to develop a pain control plan will improve Outcome: Progressing Goal: Ability to identify pain intensity on a pain scale and rate it consistently will improve Outcome: Progressing Goal: Ability to notify healthcare provider of pain before it becomes unmanageable or unbearable will improve Outcome: Progressing Problem: Medication: Goal: Satisfaction with pain management regimen will improve Outcome: Progressing Problem: Sensory: Goal: Ability to identify factors that increase the pain will improve Outcome: Progressing Goal: Pain level will decrease Outcome: Progressing Flowsheets (Taken 03/30/2023 0752) Patient's Stated Pain Goal: No pain Pain Score: 7 Problem: Lack of Knowledge: Goal: Ability to state ways to decrease the risk of falls will improve Outcome: Progressing Problem: Safety: Goal: Will remain free from falls Outcome: Progressing Goal: Will remain free from injury from falls Outcome: Progressing Goal: Will remain free from falls and injury in home environment Outcome: Progressing Problem: Activity: Goal: Mobility will improve Outcome: Progressing Problem: Lack of Knowledge: Goal: Understanding of ways to prevent future skin breakdown will improve Outcome: Progressing Goal: Ability to identify appropriate dietary choices will improve Outcome: Progressing Problem: Nutritional: Goal: Dietary intake will improve Outcome: Progressing Goal: Ability to maintain a balanced intake and output will improve Outcome: Progressing Problem: Skin Integrity: Goal: Risk for impaired skin integrity will decrease Outcome: Progressing Flowsheets Taken 03/30/2023 0800 Skin Color: Appropriate for ethnicity Skin Condition/Temp: Warm Dry Repositioned: Semi-fowlers Taken 03/30/2023 0700 Repositioned: Supine Goal: Ability to demonstrate warm and dry skin will improve Outcome: Progressing Goal: Circulation will improve to fullest extent possible Outcome: Progressing Problem: Lack of Knowledge Goal: Knowledge of risk factors and measures for prevention of condition will improve Outcome: Progressing Problem: Physical Regulation Goal: Spread of further infection will be prevented Outcome: Progressing Goal: Complications related to the disease process, condition, or treatment will be avoided or minimized Outcome: Progressing GHT BROKER * Plan of Care - Ruchi Fan - 03/29/2023 10:56 PM CST Goals: Clinical Goals for the Shift: peg placement, pain management Shredder Operator Patient Centered Goal for Treatment: nutritional replacement Summary: GHT BROKER * Plan of Care - Luciano Nick RN - 03/29/2023 2:49 PM CST Per Medical Chart/Rounds/IDR: Patient is not medically ready for DC. Patient is a new PEG tube placement and will need to tolerate tube feedings and care at home. Possible oxygen requirements d/t VS being unstable. Pending labs and imaging tomorrow. ADD: Tuesday Plan & referrals made/in place: Medical and therapy re-eval due to recent changes. Support following discharge: Family Transportation: Family member F/U Appointments: Patient's Identified Problem/Goal Problem: Ensure acute medical needs are met and that patient has a safe discharge plan. Goal: Secure a discharge plan that patient/family are agreeable with and ensure patient has continuum of care. Patient and/or family are agreeable with plan. clinical application manager will continue to follow and assist with discharge planning as needed. If any further discharge needs arise, please contact the covering telephonic case manager. Luciano Nick RN, BSN Case Management GHT BROKER * ACP (Advance Care Planning) - Moni Angela MSW - 03/29/2023 2:32 PM FREIGHT BROKER Advance Care Planning Advance Care Planning Conversation The patient and/or family consented to a voluntary Advance Care Planning conversation. Individuals present for the conversation: patient Advance Directive: Yes On file: Yes Power of Shrimp Cleaner Name: Shirley Evangelista Relationship: Daughter Summary of the conversation: Patient requested to speak with Social work for information of advancedirective and medical power of assistant district attorney. Patient completed the form and notarized on site. Outcome of the conversation and documents completed (select all that apply): Advance Directive completed and sent to medical records, provided information about Advance Directives, and Durable POA form completed and sent to medical records The services provided in this conversation and described in this note are non- billable and to be used for ongoing clinical care only. Gopal Angela LMSW GHT BROKER * Post-Procedure Note - Alek Tomlinson MD - 03/29/2023 9:07 AM [facility] Radiology Brief Post Procedure Note Attending: [place] Sheriff'S Officer: Davi Sedation/Anesthesia: Min Sedation Pre-Op/Pre-Procedure Diagnosis: dysphagia Post-Op/Post-Procedure Diagnosis: same Procedure Performed: Gastrostomy tube placement Procedure Findings: successful 24 bahraini pull type G tube. Patient will need postprocedural prophylactic antibiotics cephalexin 500 bid for 5 days. Complications: None Estimated Blood Loss: < 30 ml Specimens: None Condition: Stable Full report to follow. GHT BROKER * Plan of Care - Gretchen Tao RN - 03/29/2023 7:58 AM CST Goals: Clinical Goals for the Shift: peg placement, pain management Nursing Home Patient Centered Goal for Treatment: nutritional replacement Summary: Problem: Health Behavior: Goal: Understanding of discharge needs will improve Outcome: Progressing Problem: Lack of Knowledge: Goal: Ability to develop a pain control plan will improve Outcome: Progressing Goal: Ability to identify pain intensity on a pain scale and rate it consistently will improve Outcome: Progressing Goal: Ability to notify healthcare provider of pain before it becomes unmanageable or unbearable will improve Outcome: Progressing Problem: Medication: Goal: Satisfaction with pain management regimen will improve Outcome: Progressing Problem: Sensory: Goal: Ability to identify factors that increase the pain will improve Outcome: Progressing Goal: Pain level will decrease Outcome: Progressing Problem: Lack of Knowledge: Goal: Ability to state ways to decrease the risk of falls will improve Outcome: Progressing Problem: Safety: Goal: Will remain free from falls Outcome: Progressing Goal: Will remain free from injury from falls Outcome: Progressing Goal: Will remain free from falls and injury in home environment Outcome: Progressing Problem: Activity: Goal: Mobility will improve Outcome: Progressing Problem: Lack of Knowledge: Goal: Understanding of ways to prevent future skin breakdown will improve Outcome: Progressing Goal: Ability to identify appropriate dietary choices will improve Outcome: Progressing Problem: Nutritional: Goal: Dietary intake will improve Outcome: Progressing Goal: Ability to maintain a balanced intake and output will improve Outcome: Progressing Problem: Skin Integrity: Goal: Risk for impaired skin integrity will decrease Outcome: Progressing Flowsheets (Taken 03/29/2023 0700) Repositioned: Supine Goal: Ability to demonstrate warm and dry skin will improve Outcome: Progressing Goal: Circulation will improve to fullest extent possible Outcome: Progressing Problem: Lack of Knowledge Goal: Knowledge of risk factors and measures for prevention of condition will improve Outcome: Progressing Problem: Physical Regulation Goal: Spread of further infection will be prevented Outcome: Progressing Goal: Complications related to the disease process, condition, or treatment will be avoided or minimized Outcome: Progressing Patient is transported to IR at this time to re-insert the peg tube. Patient denies any pain at this time time, he is alert and oriented, oxygen is on 3 liters per nasal cannula and he is satting at 96%. No signs of distress or shortness of breath. Patient appears to be very fatigued. New orders this morning are notated that the patient is covid suspected, contacted the doctor to request for a new swab for covid testing. Patient was put on droplet precautions and charge is notified. GHT BROKER * Pre-Procedure Note - Alek Talbot MD - 03/29/2023 7:00 AM [facility] PRE-SEDATION ASSESSMENT/H&P Expand All Collapse All PRE-SEDATION ASSESSMENT/H&P Patient is a 63 y.o. male with chief complaint of dysphagia, malnutrition . Procedure: G-tube placement Indications/History: 63 M with history of oral mass causing severe dysphagia and malnutrition. Patient had G tube placed yesterday 03/28 but G tube popped out of patent when he got up to go to bathroom around 1 AM. Nurse placed glasgow through g tube tract and made patient NPO. Needs replacement of tube. PMH: Patient Active Problem List Diagnosis Date Noted Moderate malnutrition (CMS/HCC) 03/25/2023 Oral mass 03/23/2023 History of Sedation/Anesthesia Complications: No History of Difficult Airway: No HISTORY PSH Past Surgical History: Procedure Laterality Date APPENDECTOMY IR G TUBE PLACEMENT PERCUTANEOUS N/A 03/28/2023 TONSILLECTOMY Social History: Social History Tobacco Use Smoking status: Every Day Current packs/day: 1.50 Average packs/day: 1.5 packs/day for 44.1 years (66.2 ttl pk-yrs) Types: Cigarettes Start date: 02/1979 Passive exposure: Never Smokeless tobacco: Never Substance and Sexual Activity Drug use: Not on file Sexual activity: Not on file Alcohol Use: Not At Risk (03/25/2023) AUDIT-C Frequency of Alcohol Consumption: Monthly or less Average Number of Drinks: 1 or 2 Frequency of Binge Drinking: Never Family History: Family History Problem Relation Age of Onset Anesthesia problems Neg Hx REVIEW OF SYSTEMS: Review of systems per HPI and otherwise all other systems are negative MEDICATIONS Current Meds: No current facility-administered medications for this visit. No current outpatient medications on file. Facility-Administered Medications Ordered in Other Visits: acetaminophen (TYLENOL) tablet 650 mg, 650 mg, oral, Q4H PRN, Roland Villavicencio MD, 650 mg at 449 Carrier Fluids for Secondary Infusion - 0.9% Sodium Chloride, 30 mL, intravenous, PRN, Roland Villavicencio MD Carrier Fluids for Secondary Infusion - 0.9% Sodium Chloride, 30 mL, intravenous, PRN, Elena Jane MD escitalopram (LEXAPRO) tablet 20 mg, 20 mg, oral, Daily, Yaima Daniel MD, 20 mg at 03/28/23 110 folic acid (FOLVITE) tablet 1 mg, 1 mg, oral, Daily, Roland Villavicencio MD, 1 mg at 03/28/23 1102 lidocaine (ASPERCREME) 4 % patch 1 patch, 1 patch, transdermal, Daily PRN, Roland Villavicencio MD lisinopriL (PRINIVIL,ZESTRIL) tablet 10 mg, 10 mg, oral, Daily, Yaima Daniel MD, 10 mgat 03/28/23 1102 multivitamin with folic acid 400 mcg tablet 1 tablet, 1 tablet, oral, Daily, Roland Villavicencio MD, 1 tablet at 03/28/23 110 nicotine (NICODERM CQ) 14 mg patch 24 hour 1 patch, 1 patch, transdermal, Daily, Roland Villavicencio MD,1 patch at 03/27/23 0935 nortriptyline (PAMELOR) capsule 30 mg, 30 mg, oral, Nightly PRN, Roland Villavicencio MD ondansetron ODT (ZOFRAN-ODT) disintegrating tablet 4 mg, 4 mg, oral, Q6H PRN OR ondansetron (ZOFRAN) injection 4 mg, 4 mg, intravenous, Q6H PRN, Roland Villavicencio MD oxyCODONE (ROXICODONE) tablet 5 mg, 5 mg, oral, Q4H PRN, Roland Villavicencio MD, 5 mg at 03/28/23 2207 polyethylene glycol (MIRALAX) packet 17 g, 17 g, oral, Daily PRN, Roland Villavicencio MD pyridoxine (VITAMIN B-6) tablet 100 mg, 100 mg, oral, Daily, Roland Villavicencio MD, 100 mg at 03/28/23 1102 ramelteon (ROZEREM) tablet 8 mg, 8 mg, oral, Nightly PRN, Roland Villavicencio MD, 8 mg at 03/26/23 195 sodium chloride 0.9% flush 0.5-20 mL, 0.5-20 mL, intra-catheter, Q8H TJ, Roland Villavicencio MD, 10 mL at 03/27/23 2110 sodium chloride 0.9% flush 0.5-20 mL, 0.5-20 mL, intra-catheter, PRN, Roland Villavicencio MD, 10 mL at 03/29/23 0452 sodium chloride 0.9% flush 0.5-20 mL, 0.5-20 mL, intra-catheter, Q8H [facility], Elena Jane MD sodium chloride 0.9% flush 0.5-20 mL, 0.5-20 mL, intra-catheter, PRN, Elena Jane MD sodium chloride 0.9% infusion, 30 mL/hr, intravenous, Continuous, Elena Jane MD sodium zirconium cyclosilicate (LOKELMA) packet 10 g, 10 g, oral, Once, Amber Miller MD thiamine (VITAMIN B1) tablet 100 mg, 100 mg, oral, Daily, Roland Villavicencio MD, 100 mg at 03/28/23 1102 Home Meds: HOME MEDICATIONS : escitalopram (LEXAPRO) 20 mg tablet lidocaine (LIDODERM) 5 % lisinopriL (PRINIVIL,ZESTRIL) 10 mg tablet nortriptyline (PAMELOR) 10 mg capsule ondansetron (ZOFRAN) 4 mg tablet Allergies: No Known Allergies Vitals: There were no vitals filed for this visit. LABS Pertinent Labs: Recent Labs Lab Units 03/28/23195203/27/23201703/27/23 0911 03/27/23 0551 03/26/232011 WBC K/cumm 9.4 6.3 -- -- 8.8 HEMOGLOBIN g/dL 9.6* 8.3* 8.3* < > 8.0* HEMATOCRIT % 28.6* 25.8* 25.9* < > 24.1* PLATELETS K/cumm 361 300 -- -- 280 < > = values in this interval not displayed. Recent Labs Lab Units 03/28/23195203/27/23201703/27/23 0911 03/26/23201103/26/23 0952 03/25/23 2052 SODIUM mmol/L 132* 131* 130* 131* < > 132* POTASSIUM PLASMA mmol/L 5.1* 4.5 4.0 4.5 < > 4.2 CHLORIDE mmol/L 92* 95* 94* 93* < > 97 CO2 mmol/L 33* 32 31 31 < > 29 BUN SERUM mg/dL 20 22 18 23 < > 12 CREATININE mg/dL 0.49* 0.51* 0.57* 0.52* < > 0.50* CALCIUM mg/dL 8.7 8.5 8.3* 8.4* < > 8.4* AST Units/L -- 38 -- 40 -- 43 ALT Units/L -- 21 -- 19 -- 20 < > = values in this interval not displayed. Recent Labs Lab Units 03/23/23 1444 PROTIME (PT) sec 11.8 INR 1.04 APTT sec 28 IMAGING reviewed PERTINENT PHYSICAL EXAM Constitutional: alert and oriented x3 and no acute distress Lungs: Normal expansion. Clear to auscultation. No rales, rhonchi, or wheezing. Heart: Heart sounds are normal. Regular rate and rhythm without murmur, gallop or rub. Abdomen: Glasgow catheter at previous g tube site. Soft, non-tender, normal bowel sounds. Assessment: 63 M with history of oral mass causing severe dysphagia and malnutrition. Plan for G tube replacement after tube placed yesterday fell out. Airway Exam: normal ASA Classification:Class 3: Patient with severe systemic disease Sedation Plan: Min Sedation Adjunctive Procedures: None NONE PO status: Last PO: NPO since midnight I have reviewed the above ROSINA/resident/fellows note and agree with the assessment and plan as written. The benefits, risks and alternatives of procedure have been discussed with the patient and/or their medicare sales representative. Patient or medicare sales representative was informed that the provider getting consent may not be the same provider performing procedure. All questions answered and agree to proceed. Alek Tablot MD GHT BROKER GHT BROKER * Plan of Care - Ruchi Fan - 03/28/2023 9:37 PM CST Goals: Clinical Goals for the Shift: peg placement, pain management Shredder Operator Patient Centered Goal for Treatment: nutritional replacement Summary: GHT BROKER * Plan of Care - Moni Angela MSW - 03/28/2023 3:30 PM CST Social work notified by RN that patient requested information of advance directive and healthcare power of assistant district attorney. Social work spoke with patient at the bedside, discussed advance directive, provided a blank form. After patient completed the form, Social work requested the greenhouse technician for [facility] services. Social work to continue to follow. Gopal Angela LMSW GHT BROKER * Post-Procedure Note - Alek Tomlinson MD - 03/28/2023 8:57 AM [facility] Radiology Brief Post Procedure Note Attending: [place] Sheriff'S Officer: Davi Sedation/Anesthesia: Min Sedation Pre-Op/Pre-Procedure Diagnosis: 63 M with history of oral mass causing severe dysphagia and malnutrition. Here for G-tube placement. Post-Op/Post-Procedure Diagnosis: Same Procedure Performed: G tube placement Procedure Findings: successful G tube placement Complications: None Estimated Blood Loss: < 30 ml Specimens: None Condition: Stable Full report to follow. GHT BROKER * Plan of Care - Ruchi Fan - 03/27/2023 10:49 PM CST Goals: Clinical Goals for the Shift: Monitor labs. vs, tolerate tube feeding Summary: GHT BROKER * Pre-Procedure Note - Oriana Ambriz MD PhD - 03/27/2023 7:34 PM [facility] PRE-SEDATION ASSESSMENT/H&P Patient is a 63 y.o. male with chief complaint of dysphagia, malnutrition . Procedure: G-tube placement Indications/History: 63 M with history of oral mass causing severe dysphagia and malnutrition. Herefor G-tube placement. Has dobhoff in place. PMH: Patient Active Problem List Diagnosis Date Noted Moderate malnutrition (CMS/HCC) 03/25/2023 Oral mass 03/23/2023 History of Sedation/Anesthesia Complications: No History of Difficult Airway: No HISTORY PSH Past Surgical History: Procedure Laterality Date APPENDECTOMY TONSILLECTOMY Social History: Social History Tobacco Use Smoking status: Every Day Current packs/day: 1.50 Average packs/day: 1.5 packs/day for 44.1 years (66.2 ttl pk-yrs) Types: Cigarettes Start date: 02/1979 Passive exposure: Never Smokeless tobacco: Never Substance and Sexual Activity Drug use: None Sexual activity: None Alcohol Use: Not At Risk (03/25/2023) AUDIT-C Frequency of Alcohol Consumption: Monthly or less Average Number of Drinks: 1 or 2 Frequency of Binge Drinking: Never Family History: Family History Problem Relation Age of Onset Anesthesia problems Neg Hx REVIEW OF SYSTEMS: Review of systems per HPI and otherwise all other systems are negative MEDICATIONS Current Meds: Current Facility-Administered Medications: acetaminophen (TYLENOL) tablet 650 mg, 650 mg, oral, Q4H PRN, Roland Villavicencio MD, 650 mg at 356 Carrier Fluids for Secondary Infusion - 0.9% Sodium Chloride, 30 mL, intravenous, PRN, Roland Villavicencio MD escitalopram (LEXAPRO) tablet 20 mg, 20 mg, oral, Daily, Yaima Daniel MD, 20 mg at 03/27/2332 folic acid (FOLVITE) tablet 1 mg, 1 mg, oral, Daily, Roland Villavicencio MD, 1 mg at 03/27/23 0932 lidocaine (ASPERCREME) 4 % patch 1 patch, 1 patch, transdermal, Daily PRN, Roland Villavicencio MD lisinopriL (PRINIVIL,ZESTRIL) tablet 10 mg, 10 mg, oral, Daily, Yaima Daniel MD, 10 mgat 03/27/23 0933 multivitamin with folic acid 400 mcg tablet 1 tablet, 1 tablet, oral, Daily, Roland Villavicencio MD, 1 tablet at 03/27/2332 nicotine (NICODERM CQ) 14 mg patch 24 hour 1 patch, 1 patch, transdermal, Daily, Roland Villavicencio MD,1 patch at 03/27/23 0935 nortriptyline (PAMELOR) capsule 30 mg, 30 mg, oral, Nightly PRN, Roland Villavicencio MD ondansetron ODT (ZOFRAN-ODT) disintegrating tablet 4 mg, 4 mg, oral, Q6H PRN OR ondansetron (ZOFRAN) injection 4 mg, 4 mg, intravenous, Q6H PRN, Roland Villavicencio MD oxyCODONE (ROXICODONE) tablet 5 mg, 5 mg, oral, Q4H PRN, Roland Villavicencio MD, 5 mg at 03/27/23 190 polyethylene glycol (MIRALAX) packet 17 g, 17 g, oral, Daily PRN, Roland Villavicencio MD pyridoxine (VITAMIN B-6) tablet 100 mg, 100 mg, oral, Daily, Roland Villavicencio MD, 100 mg at 03/27/2332 ramelteon (ROZEREM) tablet 8 mg, 8 mg, oral, Nightly PRN, Roland Villavicencio MD, 8 mg at 03/26/23 195 sodium chloride 0.9% flush 0.5-20 mL, 0.5-20 mL, intra-catheter, Q8H TJ, Roland Villavicencio MD, 10 mL at 03/27/23 1320 sodium chloride 0.9% flush 0.5-20 mL, 0.5-20 mL, intra-catheter, PRN, Roland Villavicencio MD thiamine (VITAMIN B1) tablet 100 mg, 100 mg, oral, Daily, Roland Villavicencio MD, 100 mg at 03/27/23 0932 Home Meds: HOME MEDICATIONS : escitalopram (LEXAPRO) 20 mg tablet lidocaine (LIDODERM) 5 % lisinopriL (PRINIVIL,ZESTRIL) 10 mg tablet nortriptyline (PAMELOR) 10 mg capsule ondansetron (ZOFRAN) 4 mg tablet Allergies: No Known Allergies Vitals: Vitals: 03/26/23 0425 03/26/235 03/27/23 0410 03/27/23 0933 BP: 150/60 129/55 132/67 127/61 BP Location: Right arm Right arm Right arm Left arm Patient Position: HOB 30 degrees HOB 30 degrees HOB 30 degrees Pulse: 65 78 68 75 Resp: Temp: 36.5 ??C (97.7 ??F) 36.8 ??C (98.2 ??F) 36.5 ??C (97.7 ??F) 36.5 ??C (97.7 ??F) TempSrc: Oral Oral Oral Axillary SpO2: 96% 97% 98% 97% Weight: Height: LABS Pertinent Labs: Recent Labs Lab Units 03/27/23 0911 03/27/23 0551 03/26/23201103/25/23205103/25/2361303/24/232112 WBC K/cumm -- -- 8.8 7.2 -- 4.8 HEMOGLOBIN g/dL 8.3* 7.9* 8.0* 9.0* < > 8.0* HEMATOCRIT % 25.9* 23.4* 24.1* 26.9* < > 24.4* PLATELETS K/cumm -- -- 280 240 -- 247 < > = values in this interval not displayed. Recent Labs Lab Units 03/27/23 0911 03/26/23201103/26/23 0952 03/25/23205103/24/2351603/23/23 1444 SODIUM mmol/L 130* 131* 131* 132* < > 127* POTASSIUM PLASMA mmol/L 4.0 4.5 4.6 4.2 < > 5.2* CHLORIDE mmol/L 94* 93* 96* 97 < > 94* CO2 mmol/L 31 31 29 29 < > 28 BUN SERUM mg/dL 18 23 14 12 < > 27* CREATININE mg/dL 0.57* 0.52* 0.52* 0.50* < > 0.48* CALCIUM mg/dL 8.3* 8.4* 8.6 8.4* < > 8.5 AST Units/L -- 40 -- 43 -- 38 ALT Units/L -- 19 -- 20 -- 19 < > = values in this interval not displayed. Recent Labs Lab Units 03/23/23 1444 PROTIME (PT) sec 11.8 INR 1.04 APTT sec 28 PERTINENT PHYSICAL EXAM Constitutional: alert and oriented x3 and no acute distress Lungs: Normal expansion. Clear to auscultation. No rales, rhonchi, or wheezing. Heart: Heart sounds are normal. Regular rate and rhythm without murmur, gallop or rub. Abdomen: Soft, non-tender, normal bowel sounds; no bruits, organomegaly or masses. Assessment: 63 M with history of oral mass causing severe dysphagia and malnutrition. Here for G-tube placement. Airway Exam: normal ASA Classification:Class 3: Patient with severe systemic disease Sedation Plan: Min Sedation Adjunctive Procedures: None NONE PO status: Last PO: NPO since midnight Interventional Radiology Attending Physician Addendum: I have reviewed the above resident/fellows note and agree with the assessment and plan as written. The benefits, risks and alternatives of procedure have been discussed with the patient and/or their medicare sales representative. Patient or medicare sales representative was informed that the provider getting consent may not be the same provider performing procedure. All questions answered and agree to proceed. Thank you for allowing us to participate in the care of Aleksey Garcia. Please do not hesitate to reach out to Interventional Radiology with further questions or comments. Oriana Ambriz MD, PhD Interventional Radiology GHT BROKER GHT BROKER * Provider Query - Erica Eli MD - 03/27/2023 9:21 AM CST Clinical Indicators/Treatments: Height: 165.1 cm (5' 5 ) Recorded Wt: 43.1 kg BMI: 15.81 kg/m?? 03/23 ED: Appearance: He is ill-appearing. Comments: Cachectic 03/23 HP: 63yo male with PMH HTN, active tobacco use, urinary retention, and newly found L oropharyngeal mass presenting with hemoptysis. Treatments: RD consult, PT/OT consults Specify the significance of the abnormal BMI (body mass index) and document in the medical record and on the form below. Low BMI __x_ Cachexia ___ Underweight ___ Other, specify below Additional Provider Response: References: From the ICD-10-CM Official Guidelines for Coding and Reporting, use of terms such as likely, suspected, possible, or probable (associated with a specific diagnosis that is being evaluated, monitored, or treated as if it exists) are acceptable and can be coded in the inpatient setting when documented at the time of discharge. BMI definitions per www.NHLBI.nih.gov BMI Weight Status <18.5 Underweight 18.5 to 24.9 Normal/Healthy 25 to 29.9 Overweight 30 to 39.9 Obesity >40 Extreme Obesity (Morbid) This documentation will become part of the patient???s medical record. GHT BROKER * Provider Query - Erica Eli MD - 03/27/2023 9:20 AM CST Clinical Indicators/Treatments: 03/23 HP: 63yo male with PMH HTN, active tobacco use, urinary retention, and newly found L oropharyngeal mass presenting with hemoptysis. 03/24 OT: Assessment Problem List: Decreased endurance, Decreased balance, Decreased functional mobility, Decreased ADL independence, Decreased IADL independence OT Recommendation: Care Home Facility Patient at high risk for: Falls, Injury due to decreased ability to care for self, Injury due to reduced functional status, Injury due to balance deficits, Injury at home as patient has not returned to prior level of function Recommend SNF due to: Risk of injury at home, Unable to safely care for self in the home, Skilled therapy needed to address care for self in the home, Skilled therapy needed to address functional deficits, Skilled therapy needed for patient to return to prior level of independence OT Frequency during current admission: 2-3x/wk Treatment: PT/OT consults, Ambulate with assist TID Specify a diagnosis that reflects the patient???s level of strength and mobility on admission, and document in the medical record and on the form below. 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 Age-related physical debility Postviral fatigue syndrome Consider in patients with excessive and persistent fatigue following a viral illness, such as COVID-19 Myalgic encephalopmyelitis/chronic fatigue syndrome Other post-infection and related fatigue syndromes Neoplastic related fatigue The only diagnostic criteria is if the patient reports fatigue. May also report weariness, malaise,apathy, lassitude, or burnout. Characterized by excessive and persistent exhaustion that is disproportionate to the task done, often interfering with daily activity. Exhibited in 70-100% of patients with cancer. Often begins prior to diagnosis, worsens during treatment, and may persist for months or years after treatment ends Functional Quadriplegia Chronic fatigue Limitation of activities due to disability Bed confinement status Other reduced mobility Applicable to those with impaired mobility, requiring dependence on care providers. May require extensive PT/OT, venkatesh lifts, mobility devices/aids, etc. Debility References Functional Quadriplegia. ICD-9-CM Coding Clinic, 2007 Page: 143 Effective with discharges: November [facility] Information [facility]: Cancer Fatigue From the ICD-10-CM Coding Guidelines, use of terms such as likely, suspected, possible, or probable(associated with a specific diagnosis that is being evaluated, monitored, or treated as if it exists) are acceptable and can be coded in the inpatient setting when documented at the time of discharge. This documentation will become part of the patient???s medical record. GHT BROKER * Plan of Care - Gretchen Tao RN - 03/27/2023 7:38 AM CST Goals: Clinical Goals for the Shift: Monitor labs. vs, tolerate tube feeding Summary: Problem: Health Behavior: Goal: Understanding of discharge needs will improve Outcome: Progressing Problem: Lack of Knowledge: Goal: Ability to develop a pain control plan will improve Outcome: Progressing Goal: Ability to identify pain intensity on a pain scale and rate it consistently will improve Outcome: Progressing Goal: Ability to notify healthcare provider of pain before it becomes unmanageable or unbearable will improve Outcome: Progressing Problem: Medication: Goal: Satisfaction with pain management regimen will improve Outcome: Progressing Problem: Sensory: Goal: Ability to identify factors that increase the pain will improve Outcome: Progressing Goal: Pain level will decrease Outcome: Progressing Problem: Lack of Knowledge: Goal: Ability to state ways to decrease the risk of falls will improve Outcome: Progressing Problem: Safety: Goal: Will remain free from falls Outcome: Progressing Goal: Will remain free from injury from falls Outcome: Progressing Goal: Will remain free from falls and injury in home environment Outcome: Progressing Problem: Activity: Goal: Mobility will improve Outcome: Progressing Problem: Lack of Knowledge: Goal: Understanding of ways to prevent future skin breakdown will improve Outcome: Progressing Goal: Ability to identify appropriate dietary choices will improve Outcome: Progressing Problem: Nutritional: Goal: Dietary intake will improve Outcome: Progressing Goal: Ability to maintain a balanced intake and output will improve Outcome: Progressing Problem: Skin Integrity: Goal: Risk for impaired skin integrity will decrease Outcome: Progressing Flowsheets (Taken 03/27/2023 0700) Repositioned: Turn self Goal: Ability to demonstrate warm and dry skin will improve Outcome: Progressing Goal: Circulation will improve to fullest extent possible Outcome: Progressing GHT BROKER * Plan of Care - Vanessa, Tobi Va, RN - 03/26/2023 11:11 PM CST Problem: Health Behavior: Goal: Understanding of discharge needs will improve Outcome: Progressing Problem: Lack of Knowledge: Goal: Ability to develop a pain control plan will improve Outcome: Progressing Goal: Ability to identify pain intensity on a pain scale and rate it consistently will improve Outcome: Progressing Goal: Ability to notify healthcare provider of pain before it becomes unmanageable or unbearable will improve Outcome: Progressing Problem: Medication: Goal: Satisfaction with pain management regimen will improve Outcome: Progressing Goals: Clinical Goals for the Shift: Monitor labs. vs, tolerate tube feeding Summary: Pt vss. Monitored labs. MD aware of it .Pt tube feeding continue . Flushing every 4 hrs. Done head to toes assessment. Call light with in reach. GHT BROKER * Plan of Care - Winsome Burgess RN - 03/26/2023 6:08 PM CST Problem: Health Behavior: Goal: Understanding of discharge needs will improve Outcome: Progressing Problem: Lack of Knowledge: Goal: Ability to develop a pain control plan will improve Outcome: Progressing Goal: Ability to identify pain intensity on a pain scale and rate it consistently will improve Outcome: Progressing Goal: Ability to notify healthcare provider of pain before it becomes unmanageable or unbearable will improve Outcome: Progressing Problem: Medication: Goal: Satisfaction with pain management regimen will improve Outcome: Progressing Problem: Sensory: Goal: Ability to identify factors that increase the pain will improve Outcome: Progressing Goal: Pain level will decrease Outcome: Progressing Problem: Lack of Knowledge: Goal: Ability to state ways to decrease the risk of falls will improve Outcome: Progressing Problem: Safety: Goal: Will remain free from falls Outcome: Progressing Goal: Will remain free from injury from falls Outcome: Progressing Goal: Will remain free from falls and injury in home environment Outcome: Progressing Problem: Activity: Goal: Mobility will improve Outcome: Progressing Problem: Lack of Knowledge: Goal: Understanding of ways to prevent future skin breakdown will improve Outcome: Progressing Goal: Ability to identify appropriate dietary choices will improve Outcome: Progressing Problem: Nutritional: Goal: Dietary intake will improve Outcome: Progressing Goal: Ability to maintain a balanced intake and output will improve Outcome: Progressing Problem: Skin Integrity: Goal: Risk for impaired skin integrity will decrease Outcome: Progressing Goal: Ability to demonstrate warm and dry skin will improve Outcome: Progressing Goal: Circulation will improve to fullest extent possible Outcome: Progressing Goals: Clinical Goals for the Shift: meet nutritional needs, ambulation Summary: patient progressing toward all goals GHT BROKER * Plan of Care - VanessaTobi RN - 03/26/2023 1:55 AM CST Goals: Clinical Goals for the Shift: (monitor vs, safety, pain management) Summary:VSS. Monitor labs and MD aware of it. Pt refused bath during my shift. Done head to toes assessment. Call light with in reach. No drainage from surgical site . No distress during my shift . Problem: Health Behavior: Goal: Understanding of discharge needs will improve Outcome: Progressing Problem: Lack of Knowledge: Goal: Ability to develop a pain control plan will improve Outcome: Progressing Goal: Ability to identify pain intensity on a pain scale and rate it consistently will improve Outcome: Progressing Goal: Ability to notify healthcare provider of pain before it becomes unmanageable or unbearable will improve Outcome: Progressing Problem: Medication: Goal: Satisfaction with pain management regimen will improve Outcome: Progressing Problem: Sensory: Goal: Ability to identify factors that increase the pain will improve Outcome: Progressing Goal: Pain level will decrease Outcome: Progressing Problem: Lack of Knowledge: Goal: Ability to state ways to decrease the risk of falls will improve Outcome: Progressing Problem: Safety: Goal: Will remain free from falls Outcome: Progressing Goal: Will remain free from injury from falls Outcome: Progressing Goal: Will remain free from falls and injury in home environment Outcome: Progressing Problem: Activity: Goal: Mobility will improve Outcome: Progressing Problem: Lack of Knowledge: Goal: Understanding of ways to prevent future skin breakdown will improve Outcome: Progressing Goal: Ability to identify appropriate dietary choices will improve Outcome: Progressing Problem: Nutritional: Goal: Dietary intake will improve Outcome: Progressing Goal: Ability to maintain a balanced intake and output will improve Outcome: Progressing Problem: Skin Integrity: Goal: Risk for impaired skin integrity will decrease Outcome: Progressing Goal: Ability to demonstrate warm and dry skin will improve Outcome: Progressing Goal: Circulation will improve to fullest extent possible Outcome: Progressing VSS. Monitor labs and MD aware of it. Pt refused bath during my shift. Done head to toes assessment. Call light with in reach. No drainage from surgical site . No distress during my shift . GHT BROKER * Plan of Care - Winsome Burgess RN - 03/25/2023 4:31 PM CST Problem: Health Behavior: Goal: Understanding of discharge needs will improve Outcome: Progressing Problem: Lack of Knowledge: Goal: Ability to develop a pain control plan will improve Outcome: Progressing Goal: Ability to identify pain intensity on a pain scale and rate it consistently will improve Outcome: Progressing Goal: Ability to notify healthcare provider of pain before it becomes unmanageable or unbearable will improve Outcome: Progressing Problem: Medication: Goal: Satisfaction with pain management regimen will improve Outcome: Progressing Problem: Sensory: Goal: Ability to identify factors that increase the pain will improve Outcome: Progressing Goal: Pain level will decrease Outcome: Progressing Problem: Lack of Knowledge: Goal: Ability to state ways to decrease the risk of falls will improve Outcome: Progressing Problem: Safety: Goal: Will remain free from falls Outcome: Progressing Goal: Will remain free from injury from falls Outcome: Progressing Goal: Will remain free from falls and injury in home environment Outcome: Progressing Goals: Clinical Goals for the Shift: plan for surg/ prep Summary: patient is progressing toward all goals GHT BROKER * Op Note - Rocio Quiroz MD - 03/25/2023 3:20 PM CST OPERATIVE NOTE Name: Aleksey Garcia Date of Surgery: 03/25/23 Attending Surgeon: Rocio Quiroz MD Sheriff'S Officer Surgeon: MD Roland Dorsey MD Preoperative Diagnosis: Left oropharyngeal lesion Postoperative Diagnosis: Same as above Operations Performed: 1. Direct laryngoscopy and biopsy Complications: None Estimated Blood Loss: 15 cc Anesthesia Type: General Findings: 1. Evaluation on palpation of the [...] for both frozen section as well as hondo permanent pathology. 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 In recent weeks he has also developed intermittent hemoptysis prompting ED presentation and evaluation at which time CT imaging of the neck demonstrated a large left oropharyngeal mass. He is now transferred to [facility] and the otolaryngology service was consulted for consideration of surgical biopsy. After thorough discussion of the risks and benefits of direct laryngoscopy as well as alternative management options, patient elected to move forward with surgical management. Description of Procedure: Patient was identified in the preoperative area using wrist band and two identifiers. Patient was then brought into the OR. Standard anesthesia monitors were applied and the patient was intubated without issue (awake nasal fiberoptic intubation performed by the anesthesia team). A surgical time outwas performed confirming the patient???s name, operation, allergies, sabino-operative antibiotic administration, and DVT prophylaxis. A damp sponge was placed to protect the upper gingiva. A Dedo laryngoscope was used to examine the patient's oral cavity, oropharynx and hypopharynx. Findings are indicated above. The zero-degree Vallejo telescope was also introduced to more thoroughly evaluate the area of concern involving the left oropharynx. Several biopsies of were taken from the left oropharynx superiorly near what would normally be the soft palate/tonsillar junction. The area of the biopsy was inspected and hemostasis was achieved using monopolar electrocautery as well as topical pressure with afrin-soaked pledgets. The laryngoscopewas removed and the oral cavity was again inspected. The patient was then turned over to anesthesia, awakened and extubated and taken the PACU in stable fashion. Dr. Quiroz was present throughout the entire duration of the procedure. GHT BROKER * Plan of Care - Daily Matson RN - 03/25/2023 1:53 AM CST Goals: Clinical Goals for the Shift: vss, labs wnl, safety. bleeding precautions Summary: Pt stable, VSS, Labs collected, pt has no complaints at this time, will continue to monitor pt throughout shift, all safety measures in place. Call light in reach. 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 Plan Includes: ENT consulting, possible mass biopsy and Onc consult, RD consult, possible PEG tube placement. Primary Source of Transportation: Does the patient need discharge transport arranged?: Yes (Patient reports someone in family will likely be able to give him a ride home, but he is not sure. May need assistance.) Has discharge transport been arranged?: No (03/24/23 1230) Health Insurance Coverage: [facility] ([place]) Prescription Coverage: Yes Pharmacy: Patient prefers to use the [facility] at [address] [place] [phone], phone: [phone] Primary Care Provider: Jorge Espinosa PA - Patient confirms this is his current PCP Prior to Admission: Functional Status: Independent with ADLs Primary Caregiver: Self Support System: Family members, Children Home Care Services: No Outpatient Services: No Durable Medical Equipment: Cane (single prong) Living Arrangements: Family members, Children (Pt reports he lives in a home that belongs to a Niece of his and that there are currently 9 people staying in the home. Pt and his daughter are trying to find housing together in another location.) Type of Residence: Private residence (2 story, single family home) Steps in home?: Yes, Inside home Number of steps inside: 28 steps Medication management: Independent (03/24/231229) Potential discharge needs include: Home Health: nursing home, Physical therapy (03/24/231229) Dialysis: n/a Behavioral Health Services: Behavioral Health Services: No (03/24/231229) Patient expects to be Discharged to: Private residence, (03/24/231229) Additional Information: Patient has strong family support - reports he is getting from hiswife. Patient plans to find another place to live with his daughter - until then, living with a niece and several other relatives. Patient's Identified Problem/Goal Problem: Ensure acute medical needs are met and that patient has a safe discharge plan. Goal: Secure a discharge plan that patient/family are agreeable with and ensure patient has continuum of care. Case management will follow for discharge planning and send referrals as needed. Goals include: To assure continuity of care, To maximize coping skills, To assure patient is in a safe environment and To assure access to community resources. Plan includes: 1. Collaboration with patient, MD, direct care nurse, Belly Packer, and other members of the health care team to assure needed interventions completed. 2. Return patient to optimal level of self-care post discharge. 3. Tentering Machine Off Bearer will follow for Discharge Planning - interventions as needed 4. Anticipated level of care at discharge 5. Planned Discharge Disposition Based on a comprehensive family assessment, assistance with instrumental activities of daily livingafter discharge will be provided by patient. Through the course of our work I determined that the patient possesses the skill and ability to provide and monitor the care of the patient when he or she returns home. Patient has the capacity to provide/monitor/arrange for the care of the patient. Finally, we determined that patient has the knowledge of available resources and that combining them with their existing resources will suffice to sustain and care for the patient when he or she returns home. The treatment team is aware of this information. All are in agreement with the aftercare plan. Leatha Kirkpatrick RN GHT BROKER * Plan of Care - Ranjana Katz RN - 03/24/2023 12:17 PM CST Goals: Clinical Goals for the Shift: vss, labs wnl, safety. bleeding precautions Summary: progressing towards goals GHT BROKER * Plan of Care - Daily Matson RN - 03/24/2023 4:05 AM CST Goals: Clinical Goals for the Shift: VSS, labs, fall safety Summary: Pt stable, VSS, Labs collected, pt has no complaints at this time, will continue to monitor pt throughout shift, all safety measures in place. Call light in reach. GHT BROKER * ED Procedure Note - Cuba Yoder MD - 03/23/2023 3:38 PM CSTAssociated Order(s): ECG 12 lead Procedure ECG 12 lead Date/Time: 03/23/2023 3:38 PM Performed by: Cuba Yoder MD Authorized by: Winsome Black MD Rate: ECG rate: 73 ECG rate assessment: normal Rhythm: Rhythm: sinus rhythm QRS: QRS axis: Left QRS intervals: Wide Conduction: Conduction: abnormal Abnormal conduction: non-specific intraventricular conduction delay ST segments: ST segments: Normal T waves: T waves: inverted Inverted: V4, V5, V6, V3, I and aVL Previous ECG: Previous ECG: Unavailable Interpretation: Interpretation: non-specific Recommended Follow-up: Recommended follow up: further workup in the ED Cuba Yoder MD 03/23/23 1540 GHT BROKER * ED Re-evaluation Note - Nannette Lam MD - 03/23/2023 3:02 PM FREIGHT BROKER ED Re-evaluation TRANSITION OF CARE: I, Nannette Lam MD, am taking signout. I have reviewed all pertinent vital signs, allergies, and history available in the chart. Summary: 63 y.o. male PMH HTN p/w bleeding from throat mass from OSH Pending: ENT recs Dispo: Admission ED Course as of 03/23/23 2331 Time: 03/23 1433 Comment: Patient seen and examined at bedside by me. I accepted the patient in transfer from [facility] due to bleeding oropharyngeal mass. As far as I understand, CTA was not able to be performed at their facility. I am not able to access their records or imaging. On exam, patient has an obvious oropharyngeal mass with slightly garbled speech due to involvement of his tongue but is currently protecting his airway. Anticipate ENT consult. No active bleeding noted on my exam that would indicate need for emergent interventional radiology at this time but will observe. Blood from OSH currently hanging; will recheck Hgb here to assess for interval decrease since transfer was initiated By: Alessandra Licea DO Time: 03/23 1441 Comment: Dr. Solares speaking with ENT. By: Winsome Black MD Time: 03/23 1454 Comment: Repeating CBC, preparing 1 unit PRBCs, ENT recs pending By: Alessandra Licea DO Time: 03/23 1509 Value: Hgb(!): 7.9 Comment: Will hold off on transfusion, pending change in clinical status or ENT recs. ENT recs pending By: Winsome Black MD Time: 03/23 152 Comment: ENT primary eval no overt signs of bleeding, get CTA head and neck, they think unlikely offer surgery this admission so not likely ENT service admission By: Nannette Lam MD Time: 03/23 1538 Value: Rayo pl(!): 5.2 Comment: (Reviewed) By: Winsome Black MD Time: 03/23 153 Value: Anish Mckinney hs: 6 Comment: Will cancel series. By: Winsome Black MD Time: 03/23 6797 Comment: CTA head and neck pending; will wait for this to result prior to rolling upstairs By: Winsome Black MD Time: 03/23 1553 Comment: Attempted to sign out this patient to the ICU however they would like a note from ENT stating that patient would benefit from ICU level care as opposed to floor By: Winsome Black MD Time: 03/23 1602 Comment: Pending ENT call back By: Winsome Black MD Time: 03/23 1610 Comment: Pt diaphoretic, SBP to 90s, will transfuse 1u pRBCs now By: Nannette Lam MD Time: 03/23 1615 Comment: Getting CXR and EKG By: Nannette Lam MD Time: 03/23 1627 Comment: Pending ENT recs for possible bx. By: Winsome Black MD Time: 03/23 1713 Comment: ENT didn't do biopsy because it was too far back to do at bedside. Will see what CTA lookslike but if negative no acute interventions, admission would be for FTT and lab abnormalities By: Nannette Lam MD Time: 03/23 1727 Value: Hgb(!): 7.6 Comment: Lateral, will continue to trend By: Winsome Black MD Time: 03/23 1731 Comment: ENT deferring bedside biopsy, pt comfortable, will change request to floor. By: Winsome Black MD Time: 03/23 1841 Comment: Teach sign-out: 63M here w/ bleeding neck mass. Has bed. By: Honorio Mendenhall MD Time: 03/23 1842 Comment: CTA w/o active extravasation: Large ulcerative left oropharyngeal neck mass highly suspicious for malignancy such as squamous cell carcinoma involving the left parapharyngeal, data operations manager, submandibular, and sublingual spaces with osseous involvement of the left mandible. Multiple branches of the left external carotid artery including the ascending pharyngeal and lingual branches course through this mass without evidence of active arterial extravasation. By: Nannette Lam MD Chen, Rita Elaine, MD Resident 03/23/23 1530 Nannette Lam MD Resident 03/23/23 6181 GHT BROKER GHT BROKER * ED Pre-Arrival Note - Noemy Loera RN - 03/23/2023 12:59 PM FREIGHT BROKER Pre-Arrival Note Pt coming from [place] with new dx of 7x4cm oral mass x2 days ago. Pt was to follow up outpatient but started bleeding yesterday. Pt with hgb drop from 9.5 to 7.0. 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 Sending for possible embolization with IR. Accepted by Dr Schulte with ENT. Dr Licea on the line for report from Dr Quezada. Noemy Loera, RN GHT BROKER documented in this encounter Plan of Treatment Pending Results Name Type Priority Associated Diagnoses Date /Time Osmolality, blood Lab Timed 024 10:28 PM FREIGHT BROKER Magnesium Lab Timed 03/23/2023 10: 28 PM FREIGHT BROKER Phosphorus Lab Timed 03/23/2023 10: 28 PM FREIGHT BROKER Hepatic function panel Lab Timed 8:52 PM FREIGHT BROKER Scheduled Orders Name Type Priority Associated Diagnoses Orde r Schedule Osmolality, blood Lab Timed Once fo r 1 Occurrences starting 03/23/2023 until 03/23/2023 Magnesium Lab Timed Once for 1 Occ urrences starting 03/23/2023 until 03/23/2023 Phosphorus Lab Timed Once for 1 Occ urrences starting 03/23/2023 until 03/23/2023 Hepatic function panel Lab Timed On ce for 1 Occurrences starting 03/25/2023 until 03/25/2023 Scheduled Referrals Name Type Priority Associated Diagnoses Order Schedule Ambulatory referral to Radiation Oncology Outpatient Referral Routine Oral mass Expected: 04/14/2023 (Approximate), Expires: 03/31/2024 documented as of this encounter Procedures Procedure Name Priority Date/Time Associated Diagnosis Comments INFECTION PREVENTION MRSA ONLY (STAPHYLOCOCCUS AUREUS) CULTURE Routine 03/31/2023 12:37 [address] BROKER [address] OUTSIDE REFERENCE Routine 03/31/2023 6:21 AM FREIGHT BROKER EGFR Routine 03/30/2023 8:31 PM FREIGHT BROKER CBC WITHOUT DIFFERENTIAL Routine 024 8:31 PM FREIGHT BROKER PHOSPHORUS Routine 03/30/2023 8:31 PM FREIGHT BROKER MAGNESIUM Routine 03/30/2023 8:31 PM FREIGHT BROKER BASIC METABOLIC PANEL Routine 03/30/2023 8:31 PM FREIGHT BROKER PNEUMONIA PCR WITH AEROBIC CULTURE AND GRAM STAIN Routine 03/30/2023 2:11 PM FREIGHT BROKER PULMONARY FUNCTION TEST (PFT) Routine 03/30/2023 1:11 PM FREIGHT BROKER PET/CT FDG SKULL TO THIGH IP Routine 03/30/2023 10:30 AM FREIGHT BROKER EGFR Routine 03/29/2023 8:25 PM FREIGHT BROKER POCT GLUCOSE DEVICE Routine 03/29/2023 8 :25 PM FREIGHT BROKER CBC WITHOUT DIFFERENTIAL Routine 024 8:25 PM FREIGHT BROKER TYPE AND SCREEN Timed 03/29/2023 8:25 PM FREIGHT BROKER PHOSPHORUS Routine 03/29/2023 8:25 PM FREIGHT BROKER MAGNESIUM Routine 03/29/2023 8:25 PM FREIGHT BROKER BASIC METABOLIC PANEL Routine 03/29/2023 8:25 PM FREIGHT BROKER XR CHEST 1 VIEW IP Routine 03/29/2023 5:39 PM FREIGHT BROKER POCT GLUCOSE DEVICE Routine 03/29/2023 5 :[address] HEAD WO CONTRAST ED Urgent/IP Urgent 03/29/2023 12:24 PM FREIGHT BROKER RESPIRATORY PATHOGEN PANEL Routine 03/29/2023 9:24 AM FREIGHT BROKER IR G TUBE PLACEMENT PERCUTANEOUS IP Routine 03/29/2023 9:17 AM FREIGHT BROKER EGFR Routine 03/28/2023 7:53 PM FREIGHT BROKER CBC WITHOUT DIFFERENTIAL Routine 024 7:53 PM FREIGHT BROKER PHOSPHORUS Routine 03/28/2023 7:53 PM FREIGHT BROKER MAGNESIUM Routine 03/28/2023 7:53 PM FREIGHT BROKER BASIC METABOLIC PANEL Routine 03/28/2023 7:53 PM FREIGHT BROKER POCT GLUCOSE DEVICE Routine 03/28/2023 5 :02 PM FREIGHT BROKER POCT GLUCOSE DEVICE Routine 03/28/2023 11:51 AM FREIGHT BROKER IR G TUBE PLACEMENT PERCUTANEOUS IP Routine 03/28/2023 8:45 AM FREIGHT BROKER EGFR Timed 03/27/2023 8:18 PM FREIGHT BROKER CBC WITHOUT DIFFERENTIAL Routine 024 8:18 PM FREIGHT BROKER PHOSPHORUS Timed 03/27/2023 8:18 PM FREIGHT BROKER MAGNESIUM Timed 03/27/2023 8:18 PM FREIGHT BROKER HEPATIC FUNCTION PANEL Routine 8:18 PM FREIGHT BROKER BASIC METABOLIC PANEL Timed 03/27/2023 8:18 PM FREIGHT BROKER EGFR Timed 03/27/2023 9:11 AM FREIGHT BROKER HEMOGLOBIN AND HEMATOCRIT Timed 03/27/2023 9:11 AM FREIGHT BROKER PHOSPHORUS Timed 03/27/2023 9:11 AM FREIGHT BROKER MAGNESIUM Timed 03/27/2023 9:11 AM FREIGHT BROKER BASIC METABOLIC PANEL Timed 03/27/2023 9:11 AM FREIGHT BROKER POCT GLUCOSE DEVICE Routine 03/27/2023 8 :00 AM FREIGHT BROKER HEMOGLOBIN AND HEMATOCRIT Timed 03/27/2023 5:51 AM FREIGHT BROKER EGFR Timed 03/26/2023 8:12 PM FREIGHT BROKER CBC WITHOUT DIFFERENTIAL Routine 8:12 PM FREIGHT BROKER TYPE AND SCREEN Timed 03/26/2023 8:12 PM FREIGHT BROKER PHOSPHORUS Timed 03/26/2023 8:12 PM FREIGHT BROKER MAGNESIUM Timed 03/26/2023 8:12 PM FREIGHT BROKER HEPATIC FUNCTION PANEL Routine 8:12 PM FREIGHT BROKER BASIC METABOLIC PANEL Timed 03/26/2023 8:12 PM FREIGHT BROKER POCT GLUCOSE DEVICE Routine 03/26/2023 5 :29 PM FREIGHT BROKER EGFR Timed 03/26/2023 9:52 AM FREIGHT BROKER PHOSPHORUS Timed 03/26/2023 9:52 AM FREIGHT BROKER MAGNESIUM Timed 03/26/2023 9:52 AM FREIGHT BROKER BASIC METABOLIC PANEL Timed 03/26/2023 9:52 AM FREIGHT BROKER EGFR Timed 03/25/2023 8:52 PM FREIGHT BROKER CBC WITHOUT DIFFERENTIAL Routine 024 8:52 PM FREIGHT BROKER PHOSPHORUS Timed 03/25/2023 8:52 PM FREIGHT BROKER MAGNESIUM Timed 03/25/2023 8:52 PM FREIGHT BROKER HEPATIC FUNCTION PANEL Timed 8:52 PM FREIGHT BROKER BASIC METABOLIC PANEL Timed 03/25/2023 8:52 PM FREIGHT BROKER XR ABDOMEN AP 1 VIEW IP Routine 03/25/2023 5:05 PM FREIGHT BROKER SURGICAL PATHOLOGY Routine 03/25/2023 3: 29 PM FREIGHT BROKER Oral mass LARYNGOSCOPY WITH BIOPSY 024 2:55 PM FREIGHT BROKER Oral mass HEMOGLOBIN AND HEMATOCRIT Timed 03/25/2023 12:40 PM FREIGHT BROKER OSMOLALITY, BLOOD Routine 03/25/2023 12:40 PM FREIGHT BROKER URINALYSIS AND REFLEX TO MICROSCOPIC AND CULTURE STAT 03/25/2023 7:55 AM FREIGHT BROKER SODIUM, URINE, RANDOM Routine 03/25/2023 7:55 AM FREIGHT BROKER OSMOLALITY, URINE Routine 03/25/2023 7:5 5 AM FREIGHT BROKER URINALYSIS, MICROSCOPIC ONLY STAT 03/25/2023 7:55 AM FREIGHT BROKER EGFR Timed 03/25/2023 6:14 AM FREIGHT BROKER HEMOGLOBIN AND HEMATOCRIT Timed 03/25/2023 6:14 AM FREIGHT BROKER BASIC METABOLIC PANEL Timed 03/25/2023 6:14 AM FREIGHT BROKER EGFR Timed 03/24/2023 9:13 PM FREIGHT BROKER CBC WITHOUT DIFFERENTIAL Routine 024 9:13 PM FREIGHT BROKER PHOSPHORUS Routine 03/24/2023 9:13 PM FREIGHT BROKER MAGNESIUM Routine 03/24/2023 9:13 PM FREIGHT BROKER BASIC METABOLIC PANEL Timed 03/24/2023 9:13 PM FREIGHT BROKER HEMOGLOBIN AND HEMATOCRIT Timed 03/24/2023 3:00 PM FREIGHT BROKER FL MODIFIED BARIUM SWALLOW W VIDEO IP Routine 03/24/2023 1:38 PM FREIGHT BROKER STUBBER EVALUATE AND TREAT VIDEOFLUOROSCOPIC SWALLOW STUDY Routine 03/24/2023 1:36 PM FREIGHT BROKER POTASSIUM, WHOLE BLOOD STAT 5:17 AM FREIGHT BROKER EGFR Timed 03/24/2023 5:17 AM FREIGHT BROKER RESPIRATORY PATHOGEN PANEL STAT 03/24/2023 5:17 AM FREIGHT BROKER HEMOGLOBIN AND HEMATOCRIT Timed 03/24/2023 5:17 AM FREIGHT BROKER BASIC METABOLIC PANEL Timed 03/24/2023 5:17 AM FREIGHT BROKER CBC WITHOUT DIFFERENTIAL Routine 024 10:33 PM FREIGHT BROKER IRON PROFILE W/ IBC Timed 03/23/2023 10:28 PM FREIGHT BROKER HIV 1/2 ANTIBODY PLUS P24 ANTIGEN Timed 03/23/2023 10:28 PM FREIGHT BROKER PHOSPHORUS Timed 03/23/2023 10:28 PM FREIGHT BROKER OSMOLALITY, BLOOD Timed 03/23/2023 10:28 PM FREIGHT BROKER MAGNESIUM Timed 03/23/2023 10:28 PM FREIGHT BROKER FERRITIN Timed 03/23/2023 10:28 PM FREIGHT BROKER VITAMIN B12 Timed 03/23/2023 10:28 PM FREIGHT BROKER CTA HEAD NECK W WO CONTRAST ED 03/23/2023 5:52 PM FREIGHT BROKER TRANSFUSE RED BLOOD CELLS Timed 03/23/2023 5:50 PM FREIGHT BROKER XR CHEST 1 VIEW ED 03/23/2023 4:46 PM FREIGHT BROKER POCUS CARDIAC 03/23/2023 4:27 PM FREIGHT BROKER B CHECK SAMPLE STAT 03/23/2023 4:12 PM FREIGHT BROKER HEMOGLOBIN AND HEMATOCRIT STAT 03/23/2023 4:12 PM FREIGHT BROKER ECG 12-LEAD Routine 03/23/2023 3:38 PM FREIGHT BROKER TROPONIN I HIGH-SENSITIVITY SERIES (BASELINE, 2HR, 4HR, 6HR) STAT 03/23/2023 2:44 PM FREIGHT BROKER EGFR STAT 03/23/2023 2:44 PM FREIGHT BROKER DIFFERENTIAL AUTO STAT 03/23/2023 2:4 4 PM FREIGHT BROKER CBC WITH AUTO DIFFERENTIAL STAT 03/23/2023 2:44 PM FREIGHT BROKER APTT Routine 03/23/2023 2:44 PM FREIGHT BROKER PROTIME-INR STAT 03/23/2023 2:44 PM FREIGHT BROKER TYPE AND SCREEN STAT 03/23/2023 2:44 PM FREIGHT BROKER COMPREHENSIVE METABOLIC PANEL STAT 03/23/2023 2:44 PM FREIGHT BROKER PREPARE RBC Timed 03/23/2023 2:33 PM FREIGHT BROKER documented in this encounter Results * Infection Prevention MRSA Only (Staphylococcus aureus) Culture Nasal (03/31/2023 12:37 PM FREIGHT BROKER) Report Final Report: Negative [facility] Nasal 03/31/2023 12:3 7 PM FREIGHT BROKER 03/31/2023 12:56 PM FREIGHT BROKER Narrative [facility] - 04/01/2023 1:35 PM FREIGHT BROKER Testing performed by [facility]biology [facility] ([phone]). us Logan Alvarado MD LAB MICROBIOLOGY - GENERAL ORDERABLES Final Result Performing Organization Address City/[facility]/ZIP Co de Phone Number [facility] Department [place] [address] * Neuro CT Outside Reference (03/31/2023 6:21 AM FREIGHT BROKER) Impressions RAD_PACS_[facility] - 03/31/2023 6:21 AM FREIGHT BROKER These images are for Reference purposes only and have not been reviewed by [facility] Radiology. ??There will be no report generated by a [facility] Radiologist. Narrative [facility] - 03/31/2023 6:21 AM FREIGHT BROKER EXAMINATION: ??Images For Reference Purposes Only us Elysia Ngo MD PhD IMG CT PROCEDURES Final Result Performing Organization Address City/[facility] Co de Phone Number [id number] * eGFR (03/30/2023 8:31 PM FREIGHT BROKER) eGFR >90 >=60 mL/min/1. 73 m2 [facility] Comment: Interpretive Data Reference Interval Normal ?>/= 90 mL/min/1.73m2 Mildly decreased* ? 60 - 89 mL/min/1.73m2 Mildly to moderately decreased ?45 - 59 mL/min/1.73m2 Moderately to severely decreased ??30 - 44 mL/min/1.73m2 Severely decreased ?15 - 29 mL/min/1.73m2 Kidney Failure ?< 15 ??mL/min/1.73m2 *Relative to young adult level Estimated glomerular filtration rate is determined by the 2020 CKD-EPI equation recommended by the National Kidney Foundation (A Unifying Approach to GFR Estimation: Recommendations of the NKF-ASK Task Force on Reassessing the Inclusion of Race in Diagnosing Kidney Disease, JASN 2020). The CKD-EPI equation should not be used for patients with unstable renal function and has not been validated in children and those over 70. Current interpretive data was last reviewed 2020. Blood 03/30/2023 8:31 PM FREIGHT BROKER 03/30/2023 10:35 PM FREIGHT BROKER Stanislaw Goel MD LAB BLOOD ORDERABLES Fi nal Result Performing Organization Address City/[facility] Co de Phone Number [facility] Department [place] [address] * Phosphorus (03/30/2023 8:31 PM FREIGHT BROKER) Phosphorus, pl 3.4 2.3 - 4.5 mg/dL [facility] Blood 03/30/2023 8:31 PM FREIGHT BROKER 03/30/2023 10:35 PM FREIGHT BROKER Stanislaw Goel MD LAB BLOOD ORDERABLES Fi nal Result Performing Organization Address City/[facility] Co de Phone Number [facility] Department [place] [address] * Magnesium (03/30/2023 8:31 PM FREIGHT BROKER) Magnesium 2.2 1.4 - 2.5 mg/dL [facility] Blood 03/30/2023 8:31 PM FREIGHT BROKER 03/30/2023 10:35 PM FREIGHT BROKER Stanislaw Goel MD LAB BLOOD ORDERABLES Fi nal Result [facility] Department [place] [address] * (ABNORMAL) Basic metabolic panel (03/30/2023 8:31 PM FREIGHT BROKER) Pathologist [facility] Sodium 132(L) 135 - 145 mmol/L [facility] Potassium, pl 4.3 3.3 - 4.9 mmol/L [facility] Chloride 91(L) 97 - 110 mmol/L [facility] CO2 33(H) 22 - 32 mmol/L [facility] Anion gap 8 2 - 15 mmol/L [facility] BUN 23 6 - 25 mg/dL [facility] Creatinine 0.55(L) 0.80 - 1.30 mg/dL [facility] Glucose 110 70 - 199 mg/dL [facility] Comment: Interpretive Data Fasting glucose >/= 126 mg/dl is diagnostic for diabetes. ?? Fasting is defined as no caloric intake for at least 8 hours. Fasting glucose between 100 mg/dl to 125 mg/dl is diagnostic of prediabetes. In a patient with classic symptoms of hyperglycemia or hyperglycemic crisis, a random glucose >/= 200 mg/dl is diagnostic for diabetes. In the absence of unequivocal hyperglycemia, results should be confirmed by repeat testing. The classification and Diagnosis of Diabetes Diabetes Care 2021; 46: S19-S40. Current interpretive data was last revised 2022. Calcium 8.8 8.5 - 10.3 mg/dL [facility] Blood 03/30/2023 8:31 PM FREIGHT BROKER 03/30/2023 10:35 PM FREIGHT BROKER Stanislaw Goel MD LAB BLOOD ORDERABLES Fi nal Result Performing Organization Address [facility]/ZIP Co de Phone Number [facility] Department [place] [address] * (ABNORMAL) CBC without differential (03/30/2023 8:31 PM FREIGHT BROKER) Pathologist [facility] WBC 8.7 3.8 - 9.9 K/cumm [facility] Hgb 8.4(L) 13.0 - 17.5 g/dL [facility] Hct 26.1(L) 38.9 - 50.3 % [facility] Plt 445(H) 150 - 400 K/cumm [facility] MPV 9.6 9.1 - 12.3 fL [facility] RBC 2.71(L) 4.30 - 5.80 M/cumm [facility] MCV 96.3 81.3 - 96.4 fL [facility] MCH 31.0 27.1 - 33.3 pg [facility] MCHC 32.2(L) 32.3 - 35.7 g/dL [facility] RDW CV 13.5 11.1 - 14.9 % [facility] RDW SD 47.4 35.7 - 48.1 fL [facility] NRBC abs 0.00 0.00 - 0.01 K/cumm [facility] Blood 03/30/2023 8:31 PM FREIGHT BROKER 03/30/2023 10:35 PM FREIGHT BROKER us Stanislaw Goel MD LAB BLOOD ORDERABLES Fi nal Result [facility] Department [place] [address] * (ABNORMAL) Pneumonia PCR with aerobic culture and Gram stain Sputum (03/30/2023 2:11 PM FREIGHT BROKER) Pathologist [facility] Direct Specimen Exam Stain: Abundant squamous epithelial cells seen indicating excessive oropharyngeal contamination. ??Culture will not be processed further. ??Please submit another specimen. Smear results called to and read back by: Ranjana Katz RN [phone] on 03/30/2023 15:49:00 by: Alis Harper [facility] Direct Specimen Exam Molecular Analysis: Abundant squamous epithelial cells observed on Gram stain. Specimen will not be processed for rapid molecular analysis. [facility] Report Final Report: This is the final report. (.) [facility] Sputum 03/30/2023 2:11 PM FREIGHT BROKER 03/30/2023 2:49 PM FREIGHT BROKER Narrative [facility] - 03/31/2023 8:57 AM FREIGHT BROKER When rapid molecular testing results are reported, testing completed using the [employer] FilmArray Pneumonia Panel. ??This molecular assay detects: Acinetobacter calcoaceticus-baumannii complex, Enterobacter cloacae complex, Escherichia coli, Haemophilus influenzae, Enterobacter (Klebsiella) aerogenes, ??Klebsiella oxytoca, Klebsiella pneumoniae group, Moraxella catarrhalis, Proteus spp., Pseudomonas aeruginosa, Serratia marcescens, Staphylococcus aureus, Streptococcus agalactiae, Streptococcus pneumoniae, and Streptococcus pyogenes. ?? These bacteria are detected and reported semi-quantitatively with bins representing approximately 10^4, 10^5, 10^6, or greater than or equal to 10^7 genomic copies of bacterial nucleic acid per mL (copies/mL) of specimen. ??These quantities are reported to aid in estimating the relative abundance of organism(s) detected within the specimen and to correlate these results with culture results. ?? For Staphylococcus aureus, mecA/C and MREJ genes are evaluated to predict methicillin resistance or susceptibility. ??For Gram-negative bacteria, the beta-lactamases CTX-M, IMP, KPC, NDM, VIM and OXA-48-like are evaluated and reported if detected. ??For Gram-negative organisms, the absence of detection of resistance markers does not exclude resistance. ?? Correlation with final culture results and susceptibility testing is recommended. The FilmArray Pneumonia Panel is cleared by the [place] Food and Drug Administration and its performance characteristics have been confirmed by the [facility]. ??The performance of the FilmArray Pneumonia Panel has not been established for monitoring treatment of infection and bacterial nucleic acids may persist independent of organism viability. us Logan Alvarado MD LAB MICROBIOLOGY - GENERAL ORDERABLES Final Result [facility] Department [place] [address] * Pulmonary Function Test -[facility] Main [place]; Oxygen Assessment Titration (03/30/2023 1:11 PM FREIGHT BROKER) Anatomical Region Laterality Modality PFT Narrative 04/01/2023 11:14 AM FREIGHT BROKER Table formatting from the original result was not included. [facility] Division of Pulmonary & Critical Care Medicine [address] [place] [address]; [place] [address] [facility]; [place], [place] ??[address]; [phone] Pulmonary Function Laboratory Pulmonary Stress Test Simple/Oxygen Assessment Patient: Aleksey Garcia Date: 03/30/2023 : 1960 Ht: 64 IN [...] Alvarado MD PFT ORDERABLES Final Resul t * PET/CT FDG Skull to Thigh (03/30/2023 10:30 AM FREIGHT BROKER) Anatomical Region Laterality Modality N/A Positron Emissio n Tomography (PET) 03/30/2023 11:4 9 AM FREIGHT BROKER Impressions 03/30/2023 1:32 PM FREIGHT BROKER 1. ??Large, hypermetabolic, ulcerative and infiltrative mass centered in the left oropharynx with involvement of the left nasopharynx, left data operations manager, submandibular, and sublingual spaces, left tonsillar fossa, left aspect of the tongue and left soft palate consistent with biopsy-proven squamous cell carcinoma. 2. ??Probable metastatic left level IIa lymph node and mildly hypermetabolic right supraclavicular lymph node suspicious for anum metastasis. 3. ??Aspiration pneumonia in the bilateral lung bases with likely reactive mediastinal and hilar lymph nodes. ?? Dictated by: Portillo Pinzon M.D. The radiology attending physician has personally reviewed this study, and had reviewed and/or edited this written report and agrees with it. Electronically signed by: DO Yesi Desir 03/30/2023 1:32 PM FREIGHT BROKER EXAMINATION: TUMOR FDG-PET/CT IMAGING DATE OF STUDY: ??03/30/2023 SCANNER: [facility] RADIOPHARMACEUTICAL: 11.1 mCi F-18 Fluorodeoxyglucose (FDG) i.v. Injection site: Right forearm HISTORY: 63-year-old male with new left oropharyngeal mass, biopsy-proven squamous cell carcinoma on 03/25/2023. ??The study is requested for initial staging. Initial treatment strategy. TECHNIQUE: ?? The patient's fasting blood glucose level, measured by glucometer before injection of FDG, was 96 mg/dL. ?? After intravenous administration of FDG, noncontrast CT images were obtained for attenuation correction and for fusion with emission PET images to allow for anatomical localization of PET findings. ??Emission PET images were then obtained. ??The study was interpreted on the [employer] workstation. ??The mean liver SUV (reported for quality assurance tester purposes) is 1.5. ?? The total scanned area was skull vertex to the proximal thighs. Images of the body were obtained starting 50 minutes after injection of tracer. COMPARISON: CTA head and neck 03/23/2023 DESCRIPTORS OF LESION FDG AVIDITY: Minimal: ? <= blood pool ? Mild: ?> blood pool and <= liver ? Moderate: ?? > liver and <= 2x SUVmax liver ? Moderate to marked: ?? >2x SUVmax liver and <= 3x SUVmax liver ? Marked: ? > 3x SUVmax liver ? FINDINGS: There is a hypermetabolic, ulcerative, infiltrative neck mass centered in the left oropharynx with extension superiorly into the left nasopharynx, into the left data operations manager, submandibular, and sublingual spaces, left tonsillar fossa, and involvement of the left aspect of the tongue and left aspect of the soft palate. Measurements are difficult given lack of intravenous contrast. Maximum SUV of the mass is 6.3. ??There is osseous erosion of the left mandible. Probable enlarged left level 2A lymph node with maximum SUV 6.1 (image 63/326) suspicious for metastasis. ??There is a right supraclavicular lymph node measuring 8 mm in short axis with maximum SUV 2.7 (image 95/326). There is bibasilar consolidation and tree-in-bud nodularity with moderate associated FDG avidity, likely representing aspiration pneumonia. ??Moderately FDG avid mediastinal and bilateral hilar lymph nodes are likely reactive. Mild uptake along the recently placed percutaneous gastrostomy tube is likely postoperative. ?? There is diffuse white fat uptake in body wall edema, possibly related to cachexia. ?? Additional CT findings: Moderate left maxillary mucosal thickening. Calcified atherosclerosis of the thoracic aorta and great vessels. There is calcified coronary artery atherosclerosis. ??Apical predominant emphysematous changes bilaterally. ??Trace bilateral pleural effusions. ??The urinary bladder is distended. ??There is aneurysmal dilatation of the abdominal aorta up to 3.8 cm. High-density stool noted throughout the colon. ??Multilevel degenerative changes throughout the spine. Procedure Note Portillo Byers DO - 03/30/2023 EXAMINATION: TUMOR FDG-PET/CT IMAGING DATE OF STUDY: 03/30/2023 SCANNER: [facility] RADIOPHARMACEUTICAL: 11.1 mCi F-18 Fluorodeoxyglucose (FDG) i.v. Injection site: Right forearm HISTORY: 63-year-old male with new left oropharyngeal mass, biopsy-proven squamous cell carcinoma on 03/25/2023. The study is requested for initial staging. Initial treatment strategy. TECHNIQUE: The patient's fasting blood glucose level, measured by glucometer before injection of FDG, was 96 mg/dL. After intravenous administration of FDG, noncontrast CT images were obtained for attenuation correction and for fusion with emission PET images to allow for anatomical localization of PET findings. Emission PET images were then obtained. The study was interpreted on the [employer] workstation. The mean liver SUV (reported for quality assurance tester purposes) is 1.5. The total scanned area was skull vertex to the proximal thighs. Images of the body were obtained starting 50 minutes after injection of tracer. COMPARISON: CTA head and neck 03/23/2023 DESCRIPTORS OF LESION FDG AVIDITY: Minimal: <= blood pool Mild: > blood pool and <= liver Moderate: > liver and <= 2x SUVmax liver Moderate to marked: >2x SUVmax liver and <= 3x SUVmax liver Marked: > 3x SUVmax liver FINDINGS: There is a hypermetabolic, ulcerative, infiltrative neck mass centered in the left oropharynx with extension superiorly into the left nasopharynx, into the left data operations manager, submandibular, and sublingual spaces, left tonsillar [...] axis with maximum SUV 2.7 (image 95/326). There is bibasilar consolidation and tree-in-bud nodularity with moderate associated FDG avidity, likely representing aspiration pneumonia. Moderately FDG avid mediastinal and bilateral hilar lymph nodes are likely reactive. Mild uptake along the recently placed percutaneous gastrostomy tube is likely postoperative. There is diffuse white fat uptake in body wall edema, possibly related to cachexia. Additional CT findings: Moderate left maxillary mucosal thickening. Calcified atherosclerosis of the thoracic aorta and great vessels. There is calcified coronary artery atherosclerosis. Apical predominant emphysematous changes bilaterally. Trace bilateral pleural effusions. The urinary bladder is distended. There is aneurysmal dilatation of the abdominal aorta up to 3.8 cm. High-density stool noted throughout the colon. Multilevel degenerative changes throughout the spine. IMPRESSION: 1. Large, hypermetabolic, ulcerative and infiltrative mass centered in the left oropharynx with involvement of the left nasopharynx, left data operations manager, submandibular, and sublingual spaces, left tonsillar fossa, left aspect of the tongue and left soft palate consistent with biopsy-proven squamous cell carcinoma. 2. Probable metastatic left level IIa lymph node and mildly hypermetabolic right supraclavicular lymph node suspicious for anum metastasis. 3. Aspiration pneumonia in the bilateral lung bases with likely reactive mediastinal and hilar lymph nodes. Dictated by: Portillo Pinzon M.D. The radiology attending physician has personally reviewed this study, and had reviewed and/or edited this written report and agrees with it. Electronically signed by: Portillo Byers DO us Stanislaw Goel MD IMG PET PROCEDURES Iris l Result * eGFR (03/29/2023 8:25 PM FREIGHT BROKER) eGFR >90 >=60 mL/min/1. 73 m2 [facility] Comment: Interpretive Data Reference Interval Normal ?>/= 90 mL/min/1.73m2 Mildly decreased* ? 60 - 89 mL/min/1.73m2 Mildly to moderately decreased ?45 - 59 mL/min/1.73m2 Moderately to severely decreased ??30 - 44 mL/min/1.73m2 Severely decreased ?15 - 29 mL/min/1.73m2 Kidney Failure ?< 15 ??mL/min/1.73m2 *Relative to young adult level Estimated glomerular filtration rate is determined by the 2020 CKD-EPI equation recommended by the National Kidney Foundation (A Unifying Approach to GFR Estimation: Recommendations of the NKF-ASK Task Force on Reassessing the Inclusion of Race in Diagnosing Kidney Disease, JASN 2020). The CKD-EPI equation should not be used for patients with unstable renal function and has not been validated in children and those over 70. Current interpretive data was last reviewed 2020. Blood 03/29/2023 8:25 PM FREIGHT BROKER 03/29/2023 9:41 PM FREIGHT BROKER us Stanislaw Goel MD LAB BLOOD ORDERABLES Fi nal Result Performing Organization Address [facility]/ZIP Co de Phone Number [facility] Department [place] [address] * POCT glucose (03/29/2023 8:25 PM FREIGHT BROKER) Glucose, POC 108 70 - 199 mg/dL [facility] Blood 03/29/2023 8:25 PM FREIGHT BROKER 03/29/2023 8:25 PM FREIGHT BROKER us Logan Alvarado MD LAB POCT ORDERABLES - DEVIC E Final Result Performing Organization Address [facility] Co de Phone Number [facility] Department [place] [address] * Phosphorus (03/29/2023 8:25 PM FREIGHT BROKER) [facility] Phosphorus, pl 3.2 2.3 - 4.5 mg/dL [facility] Blood 03/29/2023 8:25 PM FREIGHT BROKER 03/29/2023 9:41 PM FREIGHT BROKER Stanislaw Goel MD LAB BLOOD ORDERABLES Fi nal Result Performing Organization Address City/[facility]/ZIP Co de Phone Number [facility] [place] [address] * Magnesium (03/29/2023 8:25 PM FREIGHT BROKER) [facility] Magnesium 2.2 1.4 - 2.5 mg/dL [facility] Blood 03/29/2023 8:25 PM FREIGHT BROKER 03/29/2023 9:41 PM FREIGHT BROKER Stanislaw Goel MD LAB BLOOD ORDERABLES Fi nal Result Performing Organization Address [facility] de Phone Number [facility] [place] [address] * (ABNORMAL) Basic metabolic panel (03/29/2023 8:25 PM FREIGHT BROKER) [facility] Sodium 131(L) 135 - 145 mmol/L [facility] Potassium, pl 4.7 3.3 - 4.9 mmol/L [facility] Chloride 92(L) 97 - 110 mmol/L [facility] CO2 34(H) 22 - 32 mmol/L [facility] Anion gap 5 2 - 15 mmol/L [facility] BUN 20 6 - 25 mg/dL [facility] Creatinine 0.55(L) 0.80 - 1.30 mg/dL [facility] Glucose 100 70 - 199 mg/dL [facility] Comment: Interpretive Data Fasting glucose >/= 126 mg/dl is diagnostic for diabetes. ?? Fasting is defined as no caloric intake for at least 8 hours. Fasting glucose between 100 mg/dl to 125 mg/dl is diagnostic of prediabetes. In a patient with classic symptoms of hyperglycemia or hyperglycemic crisis, a random glucose >/= 200 mg/dl is diagnostic for diabetes. In the absence of unequivocal hyperglycemia, results should be confirmed by repeat testing. The classification and Diagnosis of Diabetes Diabetes Care 2021; 46: S19-S40. Current interpretive data was last revised 2022. Calcium 8.7 8.5 - 10.3 mg/dL [facility] [facility] Blood 03/29/2023 8:25 PM FREIGHT BROKER 03/29/2023 9:41 PM FREIGHT BROKER us Stanislaw Goel MD LAB BLOOD ORDERABLES Fi nal Result [facility] [place] [address] * (ABNORMAL) CBC without differential (03/29/2023 8:25 PM FREIGHT BROKER) Pathologist [facility] WBC 10.5(H) 3.8 - 9.9 K/cumm [facility] Hgb 8.8(L) 13.0 - 17.5 g/dL [facility] Hct 26.5(L) 38.9 - 50.3 % [facility] Plt 378 150 - 400 K/cumm [facility] MPV 9.6 9.1 - 12.3 fL [facility] RBC 2.78(L) 4.30 - 5.80 M/cumm [facility] MCV 95.3 81.3 - 96.4 fL [facility] MCH 31.7 27.1 - 33.3 pg [facility] MCHC 33.2 32.3 - 35.7 g/dL [facility] RDW CV 13.4 11.1 - 14.9 % [facility] RDW SD 47.4 35.7 - 48.1 fL [facility] NRBC abs 0.00 0.00 - 0.01 K/cumm [facility] Blood 03/29/2023 8:25 PM FREIGHT BROKER 03/29/2023 9:42 PM FREIGHT BROKER Stanislaw Goel MD LAB BLOOD ORDERABLES Fi nal Result Performing Organization Address [facility]/ZIP Co de Phone Number [facility] [place] [address] * Type and screen (03/29/2023 8:25 PM FREIGHT BROKER) Tam, indirect Negative ABO Rh A Positive [facility] Blood 03/29/2023 8:25 PM FREIGHT BROKER 03/29/2023 9:39 PM FREIGHT BROKER Narrative [facility] - 03/29/2023 10:55 PM FREIGHT BROKER Has the patient had Daratumumab or Isatuximab in the past 6 months?->Unknown Stanislaw Goel MD LAB BLOOD BANK TEST ORD ERABLES Final Result Performing Organization Address [facility] Co de Phone Number [facility] Department [place] [address] * XR Chest 1 View (03/29/2023 5:39 PM FREIGHT BROKER) Anatomical Region Laterality Modality Body, Chest N/A Digital Radiogra phy 03/30/2023 9:22 AM FREIGHT BROKER Impressions 03/30/2023 9:22 AM FREIGHT BROKER Comparison exam is dated 03/23/2023. Since the prior examination, the patient has developed bilateral pulmonary infiltrates, right greater than left, which could represent pneumonia, perhaps from aspiration. The cardiomediastinal silhouette is normal. Electronically signed by: Cayden Vincent M.D. Narrative 03/30/2023 9:22 AM FREIGHT BROKER EXAMINATION: 1 view chest radiograph Procedure Note Cayden Vincent MD - 03/30/2023 EXAMINATION: 1 view chest radiograph IMPRESSION: Comparison exam is dated 03/23/2023. Since the prior examination, the patient has developed bilateral pulmonary infiltrates, right greater than left, which could represent pneumonia, perhaps from aspiration. The cardiomediastinal silhouette is normal. Electronically signed by: Cayden Vincent M.D. Logan Alvarado MD IMG XR PROCEDURES Final Res ult * POCT glucose (03/29/2023 5:17 PM FREIGHT BROKER) Glucose, POC 89 70 - 199 mg/dL [facility] Blood 03/29/2023 5:17 PM FREIGHT BROKER 03/29/2023 5:17 PM FREIGHT BROKER Logan Alvarado MD LAB POCT ORDERABLES - DEVIC E Final Result [facility] [place] [address] * CT Head WO Contrast (03/29/2023 12:24 PM FREIGHT BROKER) Anatomical Region Laterality Modality Head and Neck N/A Computed Tomogra phy 03/29/2023 12:5 3 PM FREIGHT BROKER Impressions 03/29/2023 5:29 PM FREIGHT BROKER No acute intracranial abnormality. Dictated by: Quincy Gil MD The radiology attending physician has personally reviewed this study, and had reviewed and/or edited this written report and agrees with it. Electronically signed by: Kolby Hodges M.D. Narrative 03/29/2023 5:29 PM FREIGHT BROKER EXAMINATION: CT head without contrast HISTORY: Fall, head trauma TECHNIQUE: CT of the head was performed with images acquired from skull base to vertex without intravenous contrast. COMPARISON: CT/CTA 03/23/2023 FINDINGS: Preserved leblanc-white matter differentiation. No acute intracranial hemorrhage. No midline shift. No hydrocephalus. Scattered foci of low attenuation in the periventricular and subcortical white matter are nonspecific but likely represent chronic small vessel ischemic change. ??Previously described oropharyngeal mass is not visualized. Normal orbits. Near-complete opacification of the left maxillary and sphenoid sinuses with mucosal thickening in the ethmoid and sphenoid sinuses. Mastoids are clear. Procedure Note Kolby Hodges MD PhD - 03/29/2023 EXAMINATION: CT head without contrast HISTORY: Fall, head trauma TECHNIQUE: CT of the head was performed with images acquired from skull base to vertex without intravenous contrast. COMPARISON: CT/CTA 03/23/2023 FINDINGS: Preserved leblanc-white matter differentiation. No acute intracranial hemorrhage. No midline shift. No hydrocephalus. Scattered foci of low attenuation in the periventricular and subcortical white matter are nonspecific but likely represent chronic small vessel ischemic change. Previously described oropharyngeal mass is not visualized. Normal orbits. Near-complete opacification of the left maxillary and sphenoid sinuses with mucosal thickening in the ethmoid and sphenoid sinuses. Mastoids are clear. IMPRESSION: No acute intracranial abnormality. Dictated by: Quincy Gil MD The radiology attending physician has personally reviewed this study, and had reviewed and/or edited this written report and agrees with it. Electronically signed by: Kolby Hodges M.D. Logan Alvarado MD IMG CT PROCEDURES Final Res ult * Respiratory pathogen panel Nasopharyngeal (03/29/2023 9:24 AM FREIGHT BROKER) Pathologist [facility] Influenza A RNA Not Detected Not Detected [facility] Influenza B RNA Not Detected Not Detected [facility] RSV RNA Not Detected Not Detected [facility] COVID-19 RNA Not Detected Not Detected [facility] Coronavirus 229E RNA Not Detected Not Detected [facility] Coronavirus HKU1 RNA Not Detected Not Detected [facility] Coronavirus NL63 RNA Not Detected Not Detected [facility] Coronavirus OC43 RNA Not Detected Not Detected [facility] Adenovirus DNA Not Detected Not Detected [facility] Metapneumovirus RNA Not Detected Not Detected [facility] Rhinovirus/Enterov irus RNA Not Detected Not Detected [facility] Parainfluenza 1 RNA Not Detected Not Detected [facility] Parainfluenza 2 RNA Not Detected Not Detected [facility] Parainfluenza 3 RNA Not Detected Not Detected [facility] Parainfluenza 4 RNA Not Detected Not Detected [facility] B. pertussis DNA Not Detected Not Detected [facility] B. parapertussis DNA Not Detected Not Detected [facility] C. pneumoniae DNA Not Detected Not Detected [facility] M. pneumoniae DNA Not Detected Not Detected [facility] Nasopharyngeal 03/29/2023 9: 24 AM FREIGHT BROKER 03/29/2023 10:34 AM FREIGHT BROKER Narrative [facility] - 03/29/2023 11:33 AM FREIGHT BROKER Is the Patient experiencing symptoms consistent with COVID?->Yes Surveillance testing for transplant patient?->No ??Interpretive Data The [employer] FilmArray Respiratory Panel (RP2.1) assay is a multiplexed real-time PCR based nucleic acid test capable of simultaneous qualitative detection and identification of multiple respiratory viral and bacterial nucleic acids, including SARS Coronavirus 2 (the causative agent of COVID-19). The following bacteria, viruses and virus subtypes can be identified using the FilmArray RP2.1 assay: Bordetella pertussis, Bordetella parapertussis, Chlamydia pneumoniae, Mycoplasma pneumoniae, Adenovirus, SARS Coronavirus 2, seasonal coronaviruses (Coronavirus HKU1, Coronavirus NL63, Coronavirus 229E, and Coronavirus OC43), Influenza A, Influenza A subtype H1, Influenza A subtype H3, Influenza A subtype 2009 H1, Influenza B, Metapneumovirus, Parainfluenza 1, Parainfluenza 2, Parainfluenza 3, Parainfluenza 4, RSV, Rhinovirus/Enterovirus. Due to the genetic similarity between human Rhinovirus and Enterovirus, the FilmArray RP2.1 assay cannot reliably differentiate them. Coronavirus OC43 may cross-react with some isolates of Coronavirus HKU1. ??A dual positive result may be due to cross-reactivity or may indicate a co-infection. The detection and identification of specific viral and bacterial nucleic acids from individuals exhibiting signs and symptoms of a respiratory infection aids in the diagnosis of respiratory infection if used in conjunction with other clinical and epidemiological information. ??The results of this test should not be used as the sole basis for diagnosis, treatment, or other management decisions. ??Negative results in the setting of a respiratory illness may be due to infection with pathogens that are not detected by this test. ??Positive results do not rule out infection/co-infection with other organisms. ??The agent(s) detected by the FilmArray RP2.1 may not be the definite cause of disease. ??Additional testing (lab, imaging, etc.) may be necessary when evaluating a patient with possible respiratory tract infection. The FilmArray RP2.1 assay has FDA clearance for testing of LOADING UNIT OPERATOR SEATING swabs. ??The performance of additional specimen types has been assessed by the performing laboratory. ??The performance characteristics of this assay have been determined by [facility]. Current interpretive data was last revised on 21. us Logan Alvarado MD LAB MICROBIOLOGY - GENERAL ORDERABLES Final Result [facility] Department [place] [address] * IR G Tube Placement Percutaneous (03/29/2023 9:17 AM FREIGHT BROKER) Anatomical Region Laterality Modality Body N/A X-Ray Angiograph y 03/29/2023 9:32 AM FREIGHT BROKER Impressions 03/29/2023 4:11 PM FREIGHT BROKER Successful placement of a 24 Ghanaian pull-through gastrostomy catheter. PLAN: ??The gastrostomy catheter will remain to gravity drainage overnight. It may be used for administration of liquid medications. The tube should be capped after administration of the medication for an hour and then reconnected to gravity drainage. The output should be recorded every shift. ??The patient will be examined in the morning prior to clearing the catheter for usage for tube feeds. ??Feedings will likely start in a day and be advanced to goal before discharge. Antibiotic prophylaxis should be continued for 5 days post gastrostomy catheter placement. Dictated by: Alek Tomlinson MD, PHD The radiology attending physician has personally reviewed this study, and had reviewed and/or edited this written report and agrees with it. Electronically signed by: Alek Talbot MD Narrative 03/29/2023 4:11 PM FREIGHT BROKER EXAMINATION: PERCUTANEOUS FLUOROSCOPIC PULL-TYPE GASTROSTOMY CATHETER PLACEMENT INDICATION: 63 year old man with severe dysphagia requiring enteral nutrition. ??Push type G-tube placed 03/28/2023 fell out overnight. ??A Glasgow catheter was placed into the tract by the floor team. ATTENDING PRESENCE: Alek Talbot MD, the attending radiologist was present from the beginning to the end of the procedure. ?? SEDATION: Procedural sedation was administered under the attending physician's direction and continuous monitoring by a trained nurse specialist who was independent from those actually performing the procedure. ??Total monitored sedation time was 32 minutes. TECHNIQUE: ??The risks, benefits and alternatives were discussed and informed consent was obtained. Prior to beginning the procedure, [place] Protocol was performed to confirm the patient's identity and the planned procedure. The fluoroscopy time has been recorded in the electronic medical record. ??Maximum sterile barriers including cap, mask, hand hygiene, sterile gloves, sterile gown, large sterile drape and 2% chlorhexidine for cutaneous antisepsis were used. Intravenous antibiotic prophylaxis was administered with 1 g of IV Ancef. Pre-existing feeding tube was noted to terminate in the stomach. Initial contrast injection through the Glasgow catheter that had been placed through the gastrostomy tube tract as a placeholder demonstrated the tip was not within the gastric lumen. ??This tube was removed prior to proceeding. An MPA catheter was advanced through the pre-existing gastrostomy tube tract with the assistance of a glide wire into the gastric lumen. Contrast injection was used to confirm intragastric position. A 0.035 snare was advanced through the MPA catheter and used to snare the distal tip of the pre-existing feeding tube. ??The feeding tube was subsequently pulled to the skin surface and the tip of the feeding tube was cut off. ??A long guidewire wire was advanced through the feeding tube to the oropharynx and the feeding tube was then removed. ??The guidewire was directed out of the patient's mouth such that through and through access was obtained from the abdominal wall through the oropharynx. Next, a 24 Ghanaian pull type gastrostomy tube was advanced over the guidewire from the oral end of the wire into the mouth, esophagus, and stomach and through the abdominal wall access site. The guidewire was removed, and the gastrostomy catheter was cut. ??Contrast was injected confirming intraluminal positioning and apposition of the bumper to the anterior gastric wall. ??An external bumper disc was advanced to secure the catheter to the skin with appropriate tension. The catheter was connected to gravity drainage. A dry sterile dressing was applied. ESTIMATED BLOOD LOSS: Minimal. CONDITION: Stable DISCHARGED TO: patient care division. FINDINGS: ??Final fluoroscopic images demonstrate the gastrostomy catheter with its tip in the body of the stomach. ??No complications are identified. Procedure Note Alek Talbot MD - 03/29/2023 EXAMINATION: PERCUTANEOUS FLUOROSCOPIC PULL-TYPE GASTROSTOMY CATHETER PLACEMENT INDICATION: 63 year old man with severe dysphagia requiring enteral nutrition. Push type G-tube placed 03/28/2023 fell out overnight. A Glasgow catheter was placed into the tract by the floor team. ATTENDING PRESENCE: Alek Talbot MD, the attending radiologist was present from the beginning to the end of the procedure. SEDATION: Procedural sedation was administered under the attending physician's direction and continuous monitoring by a trained nurse specialist who was independent from those actually performing the procedure. Total monitored sedation time was 32 minutes. TECHNIQUE: The risks, benefits and alternatives were discussed and informed consent was obtained. Prior to beginning the procedure, [place] Protocol was performed to confirm the patient's identity and the planned procedure. The fluoroscopy time has been recorded in the electronic medical record. Maximum sterile barriers including cap, mask, hand hygiene, sterile gloves, sterile gown, large sterile drape and 2% chlorhexidine for cutaneous antisepsis were used. Intravenous antibiotic prophylaxis was administered with 1 g of IV Ancef. Pre-existing feeding tube was noted to terminate in the stomach. Initial contrast injection through the Glasgow catheter that had been placed through the gastrostomy tube tract as a placeholder demonstrated the tip was not within the gastric lumen. This tube was removed prior to proceeding. An MPA catheter was advanced through the pre-existing gastrostomy tube tract with the assistance of a glide wire into the gastric lumen. Contrast injection was used to confirm intragastric position. A 0.035 snare was advanced through the MPA catheter and used to snare the distal tip of the pre-existing feeding tube. The feeding tube was subsequently pulled to the skin surface and the tip of the feeding tube was cut off. A long guidewire wire was advanced through the feeding tube to the oropharynx and the feeding tube was then removed. The guidewire was directed out of the patient's mouth such that through and through access was obtained from the abdominal wall through the oropharynx. Next, a 24 Ghanaian pull type gastrostomy tube was advanced over the guidewire from the oral end of the wire into the mouth, esophagus, and stomach and through the abdominal wall access site. The guidewire was removed, and the gastrostomy catheter was cut. Contrast was injected confirming intraluminal positioning and apposition of the bumper to the anterior gastric wall. An external bumper disc was advanced to secure the catheter to the skin with appropriate tension. The catheter was connected to gravity drainage. A dry sterile dressing was applied. ESTIMATED BLOOD LOSS: Minimal. CONDITION: Stable DISCHARGED TO: patient care division. FINDINGS: Final fluoroscopic images demonstrate the gastrostomy catheter with its tip in the body of the stomach. No complications are identified. IMPRESSION: Successful placement of a 24 Ghanaian pull-through gastrostomy catheter. PLAN: The gastrostomy catheter will remain to gravity drainage overnight. It may be used for administration of liquid medications. The tube should be capped after administration of the medication for an hour and then reconnected to gravity drainage. The output should be recorded every shift. The patient will be examined in the morning prior to clearing the catheter for usage for tube feeds. Feedings will likely start in a day and be advanced to goal before discharge. Antibiotic prophylaxis should be continued for 5 days post gastrostomy catheter placement. Dictated by: Alek Tomlinson MD, PHD The radiology attending physician has personally reviewed this study, and had reviewed and/or edited this written report and agrees with it. Electronically signed by: Alek Talbot MD us Logan Alvarado MD IMG IR PROCEDURES Final Res ult * eGFR (03/28/2023 7:53 PM FREIGHT BROKER) [facility] eGFR >90 >=60 mL/min/1. 73 m2 [facility] Comment: Interpretive Data Reference Interval Normal ?>/= 90 mL/min/1.73m2 Mildly decreased* ? 60 - 89 mL/min/1.73m2 Mildly to moderately decreased ?45 - 59 mL/min/1.73m2 Moderately to severely decreased ??30 - 44 mL/min/1.73m2 Severely decreased ?15 - 29 mL/min/1.73m2 Kidney Failure ?< 15 ??mL/min/1.73m2 *Relative to young adult level Estimated glomerular filtration rate is determined by the 2020 CKD-EPI equation recommended by the National Kidney Foundation (A Unifying Approach to GFR Estimation: Recommendations of the NKF-ASK Task Force on Reassessing the Inclusion of Race in Diagnosing Kidney Disease, JASN 2020). The CKD-EPI equation should not be used for patients with unstable renal function and has not been validated in children and those over 70. Current interpretive data was last reviewed 2020. Blood 03/28/2023 7:53 PM FREIGHT BROKER 03/28/2023 8:47 PM FREIGHT BROKER us Stanislaw Goel MD LAB BLOOD ORDERABLES Fi nal Result Performing Organization Address City/[facility]/ZIP Co de Phone Number [facility] Department [place] [address] * Phosphorus (03/28/2023 7:53 PM FREIGHT BROKER) Phosphorus, pl 3.6 2.3 - 4.5 mg/dL [facility] Blood 03/28/2023 7:53 PM FREIGHT BROKER 03/28/2023 8:47 PM FREIGHT BROKER Stanislaw Goel MD LAB BLOOD ORDERABLES Fi nal Result [facility] Department [place] [address] * Magnesium (03/28/2023 7:53 PM FREIGHT BROKER) Magnesium 2.0 1.4 - 2.5 mg/dL [facility] Blood 03/28/2023 7:53 PM FREIGHT BROKER 03/28/2023 8:47 PM FREIGHT BROKER us Stanislaw Goel MD LAB BLOOD ORDERABLES Fi nal Result [facility] Department [place] [address] * (ABNORMAL) Basic metabolic panel (03/28/2023 7:53 PM FREIGHT BROKER) Pathologist [facility] Sodium 132(L) 135 - 145 mmol/L [facility] Potassium, pl 5.1(H) 3.3 - 4.9 mmol/L [facility] Chloride 92(L) 97 - 110 mmol/L [facility] CO2 33(H) 22 - 32 mmol/L [facility] Anion gap 7 2 - 15 mmol/L [facility] BUN 20 6 - 25 mg/dL [facility] Creatinine 0.49(L) 0.80 - 1.30 mg/dL [facility] Glucose 104 70 - 199 mg/dL [facility] Comment: Interpretive Data Fasting glucose >/= 126 mg/dl is diagnostic for diabetes. ?? Fasting is defined as no caloric intake for at least 8 hours. Fasting glucose between 100 mg/dl to 125 mg/dl is diagnostic of prediabetes. In a patient with classic symptoms of hyperglycemia or hyperglycemic crisis, a random glucose >/= 200 mg/dl is diagnostic for diabetes. In the absence of unequivocal hyperglycemia, results should be confirmed by repeat testing. The classification and Diagnosis of Diabetes Diabetes Care 202; 46: S19-S40. Current interpretive data was last revised 2022. Calcium 8.7 8.5 - 10.3 mg/dL [facility] Blood 03/28/2023 7:53 PM FREIGHT BROKER 03/28/2023 8:47 PM FREIGHT BROKER us Stanislaw Goel MD LAB BLOOD ORDERABLES Fi nal Result [facility] Department [place] [address] * (ABNORMAL) CBC without differential (03/28/2023 7:53 PM FREIGHT BROKER) Pathologist [facility] WBC 9.4 3.8 - 9.9 K/cumm [facility] Hgb 9.6(L) 13.0 - 17.5 g/dL [facility] Hct 28.6(L) 38.9 - 50.3 % [facility] Plt 361 150 - 400 K/cumm [facility] MPV 9.5 9.1 - 12.3 fL [facility] RBC 3.04(L) 4.30 - 5.80 M/cumm [facility] MCV 94.1 81.3 - 96.4 fL [facility] MCH 31.6 27.1 - 33.3 pg [facility] MCHC 33.6 32.3 - 35.7 g/dL [facility] RDW CV 13.7 11.1 - 14.9 % [facility] RDW SD 47.0 35.7 - 48.1 fL [facility] NRBC abs 0.00 0.00 - 0.01 K/cumm [facility] Blood 03/28/2023 7:53 PM FREIGHT BROKER 03/28/2023 8:48 PM FREIGHT BROKER us Stanislaw Goel MD LAB BLOOD ORDERABLES Fi nal Result [facility] [place] [place] [address] * POCT glucose (03/28/2023 5:02 PM FREIGHT BROKER) Glucose, POC 131 70 - 199 mg/dL [facility] Blood 03/28/2023 5:02 PM FREIGHT BROKER 03/28/2023 5:02 PM FREIGHT BROKER us Logan Alvarado MD LAB POCT ORDERABLES - DEVIC E Final Result [facility] [place] [address] * POCT glucose (03/28/2023 11:51 AM FREIGHT BROKER) Glucose, POC 106 70 - 199 mg/dL [facility] Blood 03/28/2023 11:5 1 AM FREIGHT BROKER 03/28/2023 11:51 AM FREIGHT BROKER us Stanislaw Goel MD LAB POCT ORDERABLES - D EVICE Final Result [facility] [place] [address] * IR G Tube Placement Percutaneous (03/28/2023 8:45 AM FREIGHT BROKER) Anatomical Region Laterality Modality Body N/A X-Ray Angiograph y 03/28/2023 9:48 AM FREIGHT BROKER Impressions 03/28/2023 1:16 PM FREIGHT BROKER Successful placement of a 16 Ghanaian gastrostomy catheter with gastropexy. RECOMMENDATIONS: 1. The gastrostomy catheter will remain to gravity drainage overnight. It may be used for administration of liquid medications. The tube should be capped after administration of the medication for an hour and then reconnected to gravity drainage. The output should be recorded every shift. ??The patient will be examined in the morning prior to clearing the catheter for usage for tube feeds. ??Feedings will likely start in a day and be advanced to goal before discharge 2. The gastropexy anchors are composed of bioabsorbable suture and will release in 2-3 weeks. ??If they do not, they may be cut flush with the skin surface Dictated by: Alek Tomlinson MD, PHD The radiology attending physician has personally reviewed this study, and had reviewed and/or edited this written report and agrees with it. Electronically signed by: Oriana Ambriz MD Narrative 03/28/2023 1:16 PM FREIGHT BROKER EXAMINATION: PERCUTANEOUS BALLOON ASSISTED GASTROSTOMY CATHETER PLACEMENT ?? INDICATION: History of oral mass with severe dysphagia requiring enteral nutrition. ATTENDING PRESENCE: Oriana Ambriz MD, PhD, the attending radiologist was present from the beginning to the end of the procedure. ?? RESIDENT: Alek Tomlinson MD, PhD SEDATION: Procedural sedation was administered under the attending physician's direction and continuous monitoring by a trained nurse specialist who was independent from those actually performing the procedure. ??Total monitored sedation time was 24 minutes. TECHNIQUE: ??The risks, benefits and alternatives were discussed and informed consent was obtained. Prior to beginning the procedure, [place] Protocol was performed to confirm the patient's identity and the planned procedure. The fluoroscopy time has been recorded in the electronic medical record. ??Maximum sterile barriers including cap, mask, hand hygiene, sterile gloves, sterile gown, large sterile drape and 2% chlorhexidine for cutaneous antisepsis were used. A nasogastric (NG) tube was in place at the time of arrival . The abdomen was prepped and draped in sterile fashion. A mastercam programmer image of the abdomen was obtained. Glucagon 1mg IV was administered. Air was insufflated into the stomach through the NG tube. ??After administration of lidocaine for local anesthesia, 2 gastropexy anchors were placed into the stomach under fluoroscopic guidance. Contrast was administered through the delivery needle after aspiration of air to confirm placement before deployment of the anchors. ?? An incision was made between the gastropexy anchors and 18-g single wall needle was passed into the stomach under fluoroscopic guidance. Contrast was injected to confirm appropriate needle tip position. A 0.035 Amplatz wire was then passed into the stomach. Over the wire, a Conquest 10 mm x 8 cm high-pressure angioplasty balloon preloaded with an 16Fr ERIC bolus gastrostomy tube was placed. The tract was dilated with the angioplasty balloon, allowing passage of the gastrostomy tube into the stomach. The balloon of the gastrostomy tube was inflated and pulled back against the stomach wall under fluoroscopic observation to assess positioning. The angioplasty balloon was removed over the wire. Contrast was then injected to confirm intragastric location with permanent fluoroscopic imaging obtained. The locking disc was secured and the stomach deflated. ??The gastropexy anchors were locked in position. ESTIMATED BLOOD LOSS: Minimal. CONDITION: Stable DISCHARGED TO: Patient care division. FINDINGS: 1. Preprocedure imaging demonstrates anatomy suitable for percutaneous gastrostomy placement. There is an indwelling NG tube with its tip in the stomach. 2. Successful placement of a 16fr ERIC bolus percutaneous gastrostomy tube. 3. Post-placement imaging demonstrates intra-gastric location. COMPLICATION: ??There were no immediate complications. ??The patient tolerated the procedure well. Technically successful image guided percutaneous gastrostomy placement as above. ?? 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 ATTENDING PRESENCE: Oriana Ambriz MD, PhD, the attending radiologist was present from the beginning to the end of the procedure. RESIDENT: Alek Tomlinson MD, PhD SEDATION: Procedural sedation was administered under the attending physician's direction and continuous monitoring by a trained nurse specialist who was independent from those actually performing the procedure. Total monitored sedation time was 24 minutes. TECHNIQUE: The risks, benefits and alternatives were discussed and informed consent was obtained. Prior to beginning the procedure, [place] Protocol was performed to confirm the patient's identity and the planned procedure. The fluoroscopy time has been recorded in the electronic medical record. Maximum sterile barriers including cap, mask, hand hygiene, sterile gloves, sterile gown, large sterile drape and 2% chlorhexidine for cutaneous antisepsis were used. A nasogastric (NG) tube was in place at the time of arrival . The abdomen was prepped and draped in sterile fashion. A mastercam programmer image of the abdomen was obtained. Glucagon 1mg IV was administered. Air was insufflated into the stomach through the NG tube. After administration of lidocaine for local anesthesia, 2 gastropexy anchors were placed into the stomach under fluoroscopic guidance. Contrast was administered through the delivery needle after aspiration of air to confirm placement before deployment of the anchors. An incision was made between the gastropexy anchors and 18-g single wall needle was passed into the stomach under fluoroscopic guidance. Contrast was injected to confirm appropriate needle tip position. A 0.035 Amplatz wire was then passed into the stomach. Over the wire, a Conquest 10 mm x 8 cm high-pressure angioplasty balloon preloaded with an 16Fr ERIC bolus gastrostomy tube was placed. The tract was dilated with the angioplasty balloon, allowing passage of the gastrostomy tube into the stomach. The balloon of the gastrostomy tube was inflated and pulled back against the stomach wall under fluoroscopic observation to assess positioning. The angioplasty balloon was removed over the wire. Contrast was then injected to confirm intragastric location with permanent fluoroscopic imaging obtained. The locking disc was secured and the stomach deflated. The gastropexy anchors were locked in position. ESTIMATED BLOOD LOSS: Minimal. CONDITION: Stable DISCHARGED TO: Patient care division. FINDINGS: 1. Preprocedure imaging demonstrates anatomy suitable for percutaneous gastrostomy placement. There is an indwelling NG tube with its tip in the stomach. 2. Successful placement of a 16fr ERIC bolus percutaneous gastrostomy tube. 3. Post-placement imaging demonstrates intra-gastric location. COMPLICATION: There were no immediate complications. The patient tolerated the procedure well. Technically successful image guided percutaneous gastrostomy placement as above. IMPRESSION: Successful placement of a 16 [place]ian gastrostomy catheter with gastropexy. RECOMMENDATIONS: 1. The gastrostomy catheter will remain to gravity drainage overnight. It may be used for administration of liquid medications. The tube should be capped after administration of the medication for an hour and then reconnected to gravity drainage. The output should be recorded every shift. The patient will be examined in the morning prior to clearing the catheter for usage for tube feeds. Feedings will likely start in a day and be advanced to goal before discharge 2. The gastropexy anchors are composed of bioabsorbable suture and will release in 2-3 weeks. If they do not, they may be cut flush with the skin surface Dictated by: Alek Tomlinson MD, PHD The radiology attending physician has personally reviewed this study, and had reviewed and/or edited this written report and agrees with it. Electronically signed by: Oriana Ambriz MD Stanislaw Goel MD IMG IR PROCEDURES Final Result * eGFR (03/27/2023 8:18 PM FREIGHT BROKER) [facility] eGFR >90 >=60 mL/min/1. 73 m2 [facility] Comment: Interpretive Data Reference Interval Normal ?>/= 90 mL/min/1.73m2 Mildly decreased* ? 60 - 89 mL/min/1.73m2 Mildly to moderately decreased ?45 - 59 mL/min/1.73m2 Moderately to severely decreased ??30 - 44 mL/min/1.73m2 Severely decreased ?15 - 29 mL/min/1.73m2 Kidney Failure ?< 15 ??mL/min/1.73m2 *Relative to young adult level Estimated glomerular filtration rate is determined by the 2020 CKD-EPI equation recommended by the National Kidney Foundation (A Unifying Approach to GFR Estimation: Recommendations of the NKF-ASK Task Force on Reassessing the Inclusion of Race in Diagnosing Kidney Disease, JASN 2020). The CKD-EPI equation should not be used for patients with unstable renal function and has not been validated in children and those over 70. Current interpretive data was last reviewed 2020. Blood 03/27/2023 8:18 PM FREIGHT BROKER 03/27/2023 9:24 PM FREIGHT BROKER us Stanislaw Goel MD LAB BLOOD ORDERABLES Fi nal Result [facility] Department [place] [address] * (ABNORMAL) CBC without differential (03/27/2023 8:18 PM FREIGHT BROKER) WBC 6.3 3.8 - 9.9 K/cumm [facility] Hgb 8.3(L) 13.0 - 17.5 g/dL [facility] Hct 25.8(L) 38.9 - 50.3 % [facility] Plt 300 150 - 400 K/cumm [facility] MPV 9.2 9.1 - 12.3 fL [facility] RBC 2.66(L) 4.30 - 5.80 M/cumm [facility] MCV 97.0(H) 81.3 - 96.4 fL [facility] MCH 31.2 27.1 - 33.3 pg [facility] MCHC 32.2(L) 32.3 - 35.7 g/dL [facility] RDW CV 13.7 11.1 - 14.9 % [facility] RDW SD 48.2(H) 35.7 - 48.1 fL [facility] NRBC abs 0.00 0.00 - 0.01 K/cumm [facility] Blood 03/27/2023 8:18 PM FREIGHT BROKER 03/27/2023 9:24 PM FREIGHT BROKER us Stanislaw Goel MD LAB BLOOD ORDERABLES Fi nal Result Performing Organization Address City/[facility] Co de Phone Number [facility] [place] [address] * Phosphorus (03/27/2023 8:18 PM FREIGHT BROKER) Pathologist [facility] Phosphorus, pl 3.0 2.3 - 4.5 mg/dL [facility] Blood 03/27/2023 8:18 PM FREIGHT BROKER 03/27/2023 9:24 PM FREIGHT BROKER Stanislaw Goel MD LAB BLOOD ORDERABLES Fi nal Result Performing Organization Address [facility] de Phone Number [facility] [place] [address] * (ABNORMAL) Basic metabolic panel (03/27/2023 8:18 PM FREIGHT BROKER) Pathologist [facility] Sodium 131(L) 135 - 145 mmol/L [facility] Potassium, pl 4.5 3.3 - 4.9 mmol/L [facility] Chloride 95(L) 97 - 110 mmol/L [facility] CO2 32 22 - 32 mmol/L [facility] Anion gap 4 2 - 15 mmol/L [facility] BUN 22 6 - 25 mg/dL [facility] Creatinine 0.51(L) 0.80 - 1.30 mg/dL [facility] Glucose 88 70 - 199 mg/dL [facility] Comment: Interpretive Data Fasting glucose >/= 126 mg/dl is diagnostic for diabetes. ?? Fasting is defined as no caloric intake for at least 8 hours. Fasting glucose between 100 mg/dl to 125 mg/dl is diagnostic of prediabetes. In a patient with classic symptoms of hyperglycemia or hyperglycemic crisis, a random glucose >/= 200 mg/dl is diagnostic for diabetes. In the absence of unequivocal hyperglycemia, results should be confirmed by repeat testing. The classification and Diagnosis of Diabetes Diabetes Care 2021; 46: S19-S40. Current interpretive data was last revised 2022. Calcium 8.5 8.5 - 10.3 mg/dL [facility] Blood 03/27/2023 8:18 PM FREIGHT BROKER 03/27/2023 9:24 PM FREIGHT BROKER Stanislaw Goel MD LAB BLOOD ORDERABLES Fi nal Result Performing Organization Address City/[facility]/ZIP Co de Phone Number [facility] [place] [place] [address] * Magnesium (03/27/2023 8:18 PM FREIGHT BROKER) Pathologist [facility] Magnesium 2.1 1.4 - 2.5 mg/dL [facility] Blood 03/27/2023 8:18 PM FREIGHT BROKER 03/27/2023 9:24 PM FREIGHT BROKER Stanislaw Goel MD LAB BLOOD ORDERABLES Fi nal Result Performing Organization Address [facility] de Phone Number [facility] [place] [place] [address] * (ABNORMAL) Hepatic function panel (03/27/2023 8:18 PM FREIGHT BROKER) Bilirubin, total <0.2 0.1 - 1.2 mg/dL [facility] Bilirubin, direct <0.2 0.1 - 0.3 mg/dL [facility] Protein, pl 6.3(L) 6.5 - 8.5 g/dL [facility] Albumin 3.1(L) 3.5 - 5.0 g/dL [facility] Alk phos 83 40 - 130 Units/L [facility] ALT 21 7 - 55 Units/L [facility] AST 38 10 - 50 Units/L [facility] Blood 03/27/2023 8:18 PM FREIGHT BROKER 03/27/2023 9:24 PM FREIGHT BROKER us Stanislaw Goel MD LAB BLOOD ORDERABLES Fi nal Result Performing Organization Address [facility] Co de Phone Number [facility] [place] [place] [address] * eGFR (03/27/2023 9:11 AM FREIGHT BROKER) eGFR >90 >=60 mL/min/1. 73 m2 [facility] Comment: Interpretive Data Reference Interval Normal ?>/= 90 mL/min/1.73m2 Mildly decreased* ? 60 - 89 mL/min/1.73m2 Mildly to moderately decreased ?45 - 59 mL/min/1.73m2 Moderately to severely decreased ??30 - 44 mL/min/1.73m2 Severely decreased ?15 - 29 mL/min/1.73m2 Kidney Failure ?< 15 ??mL/min/1.73m2 *Relative to young adult level Estimated glomerular filtration rate is determined by the 2020 CKD-EPI equation recommended by the National Kidney Foundation (A Unifying Approach to GFR Estimation: Recommendations of the NKF-ASK Task Force on Reassessing the Inclusion of Race in Diagnosing Kidney Disease, JASN 2020). The CKD-EPI equation should not be used for patients with unstable renal function and has not been validated in children and those over 70. Current interpretive data was last reviewed 2020. Blood 03/27/2023 9:11 AM FREIGHT BROKER 03/27/2023 10:15 AM FREIGHT BROKER us Stanislaw Goel MD LAB BLOOD ORDERABLES Fi nal Result Performing Organization Address [facility] de Phone Number [facility] Department [place] [address] * Phosphorus (03/27/2023 9:11 AM FREIGHT BROKER) Phosphorus, pl 3.1 2.3 - 4.5 mg/dL [facility] Blood 03/27/2023 9:11 AM FREIGHT BROKER 03/27/2023 10:13 AM FREIGHT BROKER Stanislaw Goel MD LAB BLOOD ORDERABLES Fi nal Result [facility] [place] [address] * (ABNORMAL) Basic metabolic panel (03/27/2023 9:11 AM FREIGHT BROKER) Sodium 130(L) 135 - 145 mmol/L [facility] Potassium, pl 4.0 3.3 - 4.9 mmol/L [facility] Chloride 94(L) 97 - 110 mmol/L [facility] CO2 31 22 - 32 mmol/L [facility] Anion gap 5 2 - 15 mmol/L [facility] BUN 18 6 - 25 mg/dL [facility] Creatinine 0.57(L) 0.80 - 1.30 mg/dL [facility] Glucose 127 70 - 199 mg/dL [facility] Comment: Interpretive Data Fasting glucose >/= 126 mg/dl is diagnostic for diabetes. ?? Fasting is defined as no caloric intake for at least 8 hours. Fasting glucose between 100 mg/dl to 125 mg/dl is diagnostic of prediabetes. In a patient with classic symptoms of hyperglycemia or hyperglycemic crisis, a random glucose >/= 200 mg/dl is diagnostic for diabetes. In the absence of unequivocal hyperglycemia, results should be confirmed by repeat testing. The classification and Diagnosis of Diabetes Diabetes Care 2021; 46: S19-S40. Current interpretive data was last revised 2022. Calcium 8.3(L) 8.5 - 10.3 mg/dL [facility] Blood 03/27/2023 9:11 AM FREIGHT BROKER 03/27/2023 10:13 AM FREIGHT BROKER us Stanislaw Goel MD LAB BLOOD ORDERABLES Fi nal Result Performing Organization Address [facility] Co de Phone Number [facility] [place] [address] * Magnesium (03/27/2023 9:11 AM FREIGHT BROKER) Magnesium 2.0 1.4 - 2.5 mg/dL [facility] Blood 03/27/2023 9:11 AM FREIGHT BROKER 03/27/2023 10:13 AM FREIGHT BROKER us Stanislaw Goel MD LAB BLOOD ORDERABLES Fi nal Result Performing Organization Address [facility] de Phone Number [facility] [place] [address] * (ABNORMAL) Hemoglobin and hematocrit (03/27/2023 9:11 AM FREIGHT BROKER) [facility] Hgb 8.3(L) 13.0 - 17.5 g/dL [facility] Hct 25.9(L) 38.9 - 50.3 % [facility] Blood 03/27/2023 9:11 AM FREIGHT BROKER 03/27/2023 10:13 AM FREIGHT BROKER us Stanislaw Goel MD LAB BLOOD ORDERABLES Fi nal Result Performing Organization Address [facility] Co de Phone Number [facility] [place] [address] * POCT glucose (03/27/2023 8:00 AM FREIGHT BROKER) Glucose, POC 138 70 - 199 mg/dL [facility] Blood 03/27/2023 8:00 AM FREIGHT BROKER 03/27/2023 8:00 AM FREIGHT BROKER us Stanislaw Goel MD LAB POCT ORDERABLES - D EVICE Final Result Performing Organization Address [facility] Co de Phone Number [facility] [place] [address] * (ABNORMAL) Hemoglobin and hematocrit (03/27/2023 5:51 AM FREIGHT BROKER) [facility] Hgb 7.9(L) 13.0 - 17.5 g/dL [facility] Hct 23.4(L) 38.9 - 50.3 % [facility] Blood 03/27/2023 5:51 AM FREIGHT BROKER 03/27/2023 7:26 AM FREIGHT BROKER us Stanislaw Goel MD LAB BLOOD ORDERABLES Fi nal Result Performing Organization Address [facility] de Phone Number [facility] [place] [address] * eGFR (03/26/2023 8:12 PM FREIGHT BROKER) [facility] eGFR >90 >=60 mL/min/1. 73 m2 [facility] Comment: Interpretive Data Reference Interval Normal ?>/= 90 mL/min/1.73m2 Mildly decreased* ? 60 - 89 mL/min/1.73m2 Mildly to moderately decreased ?45 - 59 mL/min/1.73m2 Moderately to severely decreased ??30 - 44 mL/min/1.73m2 Severely decreased ?15 - 29 mL/min/1.73m2 Kidney Failure ?< 15 ??mL/min/1.73m2 *Relative to young adult level Estimated glomerular filtration rate is determined by the 2020 CKD-EPI equation recommended by the National Kidney Foundation (A Unifying Approach to GFR Estimation: Recommendations of the NKF-ASK Task Force on Reassessing the Inclusion of Race in Diagnosing Kidney Disease, JASN 2021). The CKD-EPI equation should not be used for patients with unstable renal function and has not been validated in children and those over 70. Current interpretive data was last reviewed 2020. Blood 03/26/2023 8:12 PM FREIGHT BROKER 03/26/2023 8:26 PM FREIGHT BROKER Stanislaw Goel MD LAB BLOOD ORDERABLES Fi nal Result Performing Organization Address City/[facility]/ZIP Co de Phone Number [facility] Department [place] [address] * (ABNORMAL) CBC without differential (03/26/2023 8:12 PM FREIGHT BROKER) WBC 8.8 3.8 - 9.9 K/cumm [facility] Hgb 8.0(L) 13.0 - 17.5 g/dL [facility] Hct 24.1(L) 38.9 - 50.3 % [facility] Plt 280 150 - 400 K/cumm [facility] MPV 9.0(L) 9.1 - 12.3 fL [facility] RBC 2.54(L) 4.30 - 5.80 M/cumm [facility] MCV 94.9 81.3 - 96.4 fL [facility] MCH 31.5 27.1 - 33.3 pg [facility] MCHC 33.2 32.3 - 35.7 g/dL [facility] RDW CV 13.5 11.1 - 14.9 % [facility] RDW SD 46.0 35.7 - 48.1 fL [facility] NRBC abs 0.00 0.00 - 0.01 K/cumm [facility] Blood 03/26/2023 8:12 PM FREIGHT BROKER 03/26/2023 8:26 PM FREIGHT BROKER Stanislaw Goel MD LAB BLOOD ORDERABLES Fi nal Result Performing Organization Address City/[facility]/ZIP Co de Phone Number [facility] Department [place] [address] * Type and screen (03/26/2023 8:12 PM FREIGHT BROKER) [facility] ABO Rh A Positive Tam, indirect Negative [facility] Blood 03/26/2023 8:12 PM FREIGHT BROKER 03/26/2023 8:35 PM FREIGHT BROKER Narrative [facility] - 03/26/2023 9:33 PM FREIGHT BROKER Has the patient had Daratumumab or Isatuximab in the past 6 months?->Unknown Stanislaw Goel MD LAB BLOOD BANK TEST ORD ERABLES Final Result [facility] [place] [address] * Phosphorus (03/26/2023 8:12 PM FREIGHT BROKER) [facility] Phosphorus, pl 3.3 2.3 - 4.5 mg/dL [facility] Blood 03/26/2023 8:12 PM FREIGHT BROKER 03/26/2023 8:26 PM FREIGHT BROKER Stanislaw Goel MD LAB BLOOD ORDERABLES Fi nal Result [facility] [place] [address] * (ABNORMAL) Basic metabolic panel (03/26/2023 8:12 PM FREIGHT BROKER) [facility] Sodium 131(L) 135 - 145 mmol/L [facility] Potassium, pl 4.5 3.3 - 4.9 mmol/L [facility] Chloride 93(L) 97 - 110 mmol/L [facility] CO2 31 22 - 32 mmol/L [facility] Anion gap 7 2 - 15 mmol/L [facility] BUN 23 6 - 25 mg/dL [facility] Creatinine 0.52(L) 0.80 - 1.30 mg/dL [facility] Glucose 112 70 - 199 mg/dL [facility] Comment: Interpretive Data Fasting glucose >/= 126 mg/dl is diagnostic for diabetes. ?? Fasting is defined as no caloric intake for at least 8 hours. Fasting glucose between 100 mg/dl to 125 mg/dl is diagnostic of prediabetes. In a patient with classic symptoms of hyperglycemia or hyperglycemic crisis, a random glucose >/= 200 mg/dl is diagnostic for diabetes. In the absence of unequivocal hyperglycemia, results should be confirmed by repeat testing. The classification and Diagnosis of Diabetes Diabetes Care 2021; 46: S19-S40. Current interpretive data was last revised 2022. Calcium 8.4(L) 8.5 - 10.3 mg/dL [facility] Blood 03/26/2023 8:12 PM FREIGHT BROKER 03/26/2023 8:26 PM FREIGHT BROKER Stanislaw Goel MD LAB BLOOD ORDERABLES Fi nal Result Performing Organization Address [facility] Co de Phone Number [facility] Department of Laboratories [place] [address] * Magnesium (03/26/2023 8:12 PM FREIGHT BROKER) [facility] Magnesium 1.9 1.4 - 2.5 mg/dL [facility] Blood 03/26/2023 8:12 PM FREIGHT BROKER 03/26/2023 8:26 PM FREIGHT BROKER Stanislaw Goel MD LAB BLOOD ORDERABLES Fi nal Result Performing Organization Address [facility] de Phone Number [facility] [place] [address] * (ABNORMAL) Hepatic function panel (03/26/2023 8:12 PM FREIGHT BROKER) Bilirubin, total <0.2 0.1 - 1.2 mg/dL [facility] Comment:Reviewed Bilirubin, direct <0.2 0.1 - 0.3 mg/dL [facility] Protein, pl 5.8(L) 6.5 - 8.5 g/dL [facility] Albumin 3.0(L) 3.5 - 5.0 g/dL [facility] Alk phos 74 40 - 130 Units/L [facility] ALT 19 7 - 55 Units/L [facility] AST 40 10 - 50 Units/L [facility] Blood 03/26/2023 8:12 PM FREIGHT BROKER 03/26/2023 8:26 PM FREIGHT BROKER Stanislaw Goel MD LAB BLOOD ORDERABLES Fi nal Result [facility] [place] [address] * POCT glucose (03/26/2023 5:29 PM FREIGHT BROKER) Glucose, POC 104 70 - 199 mg/dL [facility] Blood 03/26/2023 5:29 PM FREIGHT BROKER 03/26/2023 5:29 PM FREIGHT BROKER us Stanislaw Goel MD LAB POCT ORDERABLES - D EVICE Final Result Performing Organization Address [facility] de Phone Number [facility] [place] [address] * eGFR (03/26/2023 9:52 AM FREIGHT BROKER) eGFR >90 >=60 mL/min/1. 73 m2 [facility] Comment: Interpretive Data Reference Interval Normal ?>/= 90 mL/min/1.73m2 Mildly decreased* ? 60 - 89 mL/min/1.73m2 Mildly to moderately decreased ?45 - 59 mL/min/1.73m2 Moderately to severely decreased ??30 - 44 mL/min/1.73m2 Severely decreased ?15 - 29 mL/min/1.73m2 Kidney Failure ?< 15 ??mL/min/1.73m2 *Relative to young adult level Estimated glomerular filtration rate is determined by the 2020 CKD-EPI equation recommended by the National Kidney Foundation (A Unifying Approach to GFR Estimation: Recommendations of the NKF-ASK Task Force on Reassessing the Inclusion of Race in Diagnosing Kidney Disease, JASN 2020). The CKD-EPI equation should not be used for patients with unstable renal function and has not been validated in children and those over 70. Current interpretive data was last reviewed 2020. Blood 03/26/2023 9:52 AM FREIGHT BROKER 03/26/2023 10:17 AM FREIGHT BROKER Stanislaw Goel MD LAB BLOOD ORDERABLES Fi nal Result Performing Organization Address [facility]/ZIP Co de Phone Number [facility] [place] [address] * Phosphorus (03/26/2023 9:52 AM FREIGHT BROKER) Pathologist [facility] Phosphorus, pl 4.0 2.3 - 4.5 mg/dL [facility] Blood 03/26/2023 9:52 AM FREIGHT BROKER 03/26/2023 10:13 AM FREIGHT BROKER Stanislaw Goel MD LAB BLOOD ORDERABLES Fi nal Result [facility] [place] [address] * (ABNORMAL) Basic metabolic panel (03/26/2023 9:52 AM FREIGHT BROKER) Sodium 131(L) 135 - 145 mmol/L [facility] Potassium, pl 4.6 3.3 - 4.9 mmol/L [facility] Chloride 96(L) 97 - 110 mmol/L [facility] CO2 29 22 - 32 mmol/L [facility] Anion gap 6 2 - 15 mmol/L [facility] BUN 14 6 - 25 mg/dL [facility] Creatinine 0.52(L) 0.80 - 1.30 mg/dL [facility] Glucose 158 70 - 199 mg/dL [facility] Comment: Interpretive Data Fasting glucose >/= 126 mg/dl is diagnostic for diabetes. ?? Fasting is defined as no caloric intake for at least 8 hours. Fasting glucose between 100 mg/dl to 125 mg/dl is diagnostic of prediabetes. In a patient with classic symptoms of hyperglycemia or hyperglycemic crisis, a random glucose >/= 200 mg/dl is diagnostic for diabetes. In the absence of unequivocal hyperglycemia, results should be confirmed by repeat testing. The classification and Diagnosis of Diabetes Diabetes Care 2021; 46: S19-S40. Current interpretive data was last revised 2022. Calcium 8.6 8.5 - 10.3 mg/dL [facility] Blood 03/26/2023 9:52 AM FREIGHT BROKER 03/26/2023 10:13 AM FREIGHT BROKER Stanislaw Goel MD LAB BLOOD ORDERABLES Fi nal Result Performing Organization Address City/[facility] Co de Phone Number [facility] [place] [address] * Magnesium (03/26/2023 9:52 AM FREIGHT BROKER) Magnesium 1.8 1.4 - 2.5 mg/dL [facility] Blood 03/26/2023 9:52 AM FREIGHT BROKER 03/26/2023 10:13 AM FREIGHT BROKER Stanislaw Goel MD LAB BLOOD ORDERABLES Fi nal Result Performing Organization Address City/[facility] Co de Phone Number [facility] [place] [address] * (ABNORMAL) Hepatic function panel (03/25/2023 8:52 PM FREIGHT BROKER) Bilirubin, total 0.2 0.1 - 1.2 mg/dL [facility] Bilirubin, direct <0.2 0.1 - 0.3 mg/dL [facility] Protein, pl 6.4(L) 6.5 - 8.5 g/dL [facility] Albumin 3.1(L) 3.5 - 5.0 g/dL [facility] Alk phos 80 40 - 130 Units/L [facility] ALT 20 7 - 55 Units/L [facility] AST 43 10 - 50 Units/L [facility] Blood 03/25/2023 8:52 PM FREIGHT BROKER 03/25/2023 9:56 PM FREIGHT BROKER us Stanislaw Goel MD LAB BLOOD ORDERABLES Fi nal Result [facility] Department [place] [address] * eGFR (03/25/2023 8:52 PM FREIGHT BROKER) eGFR >90 >=60 mL/min/1. 73 m2 [facility] Comment: Interpretive Data Reference Interval Normal ?>/= 90 mL/min/1.73m2 Mildly decreased* ? 60 - 89 mL/min/1.73m2 Mildly to moderately decreased ?45 - 59 mL/min/1.73m2 Moderately to severely decreased ??30 - 44 mL/min/1.73m2 Severely decreased ?15 - 29 mL/min/1.73m2 Kidney Failure ?< 15 ??mL/min/1.73m2 *Relative to young adult level Estimated glomerular filtration rate is determined by the 2020 CKD-EPI equation recommended by the National Kidney Foundation (A Unifying Approach to GFR Estimation: Recommendations of the NKF-ASK Task Force on Reassessing the Inclusion of Race in Diagnosing Kidney Disease, JASN 2020). The CKD-EPI equation should not be used for patients with unstable renal function and has not been validated in children and those over 70. Current interpretive data was last reviewed 2020. Blood 03/25/2023 8:52 PM FREIGHT BROKER 03/25/2023 10:00 PM FREIGHT BROKER Stanislaw Goel MD LAB BLOOD ORDERABLES Fi nal Result Performing Organization Address City/[facility]/ZIP Co de Phone Number [facility] [place] [address] * Phosphorus (03/25/2023 8:52 PM FREIGHT BROKER) Pathologist [facility] Phosphorus, pl 3.8 2.3 - 4.5 mg/dL [facility] Blood 03/25/2023 8:52 PM FREIGHT BROKER 03/25/2023 9:56 PM FREIGHT BROKER Stanislaw Goel MD LAB BLOOD ORDERABLES Fi nal Result Performing Organization Address [facility] de Phone Number [facility] Department [place] [address] * (ABNORMAL) Basic metabolic panel (03/25/2023 8:52 PM FREIGHT BROKER) Sodium 132(L) 135 - 145 mmol/L [facility] Potassium, pl 4.2 3.3 - 4.9 mmol/L [facility] Chloride 97 97 - 110 mmol/L [facility] CO2 29 22 - 32 mmol/L [facility] Anion gap 6 2 - 15 mmol/L [facility] BUN 12 6 - 25 mg/dL [facility] Creatinine 0.50(L) 0.80 - 1.30 mg/dL [facility] Glucose 146 70 - 199 mg/dL [facility] Comment: Interpretive Data Fasting glucose >/= 126 mg/dl is diagnostic for diabetes. ?? Fasting is defined as no caloric intake for at least 8 hours. Fasting glucose between 100 mg/dl to 125 mg/dl is diagnostic of prediabetes. In a patient with classic symptoms of hyperglycemia or hyperglycemic crisis, a random glucose >/= 200 mg/dl is diagnostic for diabetes. In the absence of unequivocal hyperglycemia, results should be confirmed by repeat testing. The classification and Diagnosis of Diabetes Diabetes Care 2021; 46: S19-S40. Current interpretive data was last revised 2022. Calcium 8.4(L) 8.5 - 10.3 mg/dL [facility] Blood 03/25/2023 8:52 PM FREIGHT BROKER 03/25/2023 9:56 PM FREIGHT BROKER Stanislaw Goel MD LAB BLOOD ORDERABLES Fi nal Result Performing Organization Address City/[facility]/ZIP Co de Phone Number [facility] [place] [address] * Magnesium (03/25/2023 8:52 PM FREIGHT BROKER) [facility] Magnesium 2.0 1.4 - 2.5 mg/dL [facility] Blood 03/25/2023 8:52 PM FREIGHT BROKER 03/25/2023 9:56 PM FREIGHT BROKER Stanislaw Goel MD LAB BLOOD ORDERABLES Fi nal Result Performing Organization Address City/[facility]/ZIP Co de Phone Number [facility] [place] [address] * (ABNORMAL) CBC without differential (03/25/2023 8:52 PM FREIGHT BROKER) Pathologist [facility] WBC 7.2 3.8 - 9.9 K/cumm [facility] Hgb 9.0(L) 13.0 - 17.5 g/dL [facility] Hct 26.9(L) 38.9 - 50.3 % [facility] Plt 240 150 - 400 K/cumm [facility] MPV 9.2 9.1 - 12.3 fL [facility] RBC 2.89(L) 4.30 - 5.80 M/cumm [facility] MCV 93.1 81.3 - 96.4 fL [facility] MCH 31.1 27.1 - 33.3 pg [facility] MCHC 33.5 32.3 - 35.7 g/dL [facility] RDW CV 13.5 11.1 - 14.9 % [facility] RDW SD 45.7 35.7 - 48.1 fL [facility] NRBC abs 0.00 0.00 - 0.01 K/cumm [facility] Blood 03/25/2023 8:52 PM FREIGHT BROKER 03/25/2023 9:53 PM FREIGHT BROKER us Stanislaw Goel MD LAB BLOOD ORDERABLES Fi nal Result [facility] [place] [address] * XR Abdomen Ap 1 Vw (03/25/2023 5:05 PM FREIGHT BROKER) Anatomical Region Laterality Modality Body, Abdomen N/A Computed Radiogr aphy 03/25/2023 6:58 PM FREIGHT BROKER Impressions 03/25/2023 7:34 PM FREIGHT BROKER A single view of the abdomen is submitted for evaluation. Feeding tube with tip projecting over the gastric fundus. ??The stylette remains in place. Contrast in the proximal colon. ??No evidence of bowel obstruction in the imaged portion of the abdomen and pelvis. ??Vascular calcifications are present. The Non Critical results regarding Dobbhoff tube positioning were discussed with Dr. Villavicencio by Dr. Stone on 03/25/2023 at 6:56 PM Dictated by: Omar Stone M.D. The radiology attending physician has personally reviewed this study, and had reviewed and/or edited this written report and agrees with it. Electronically signed by: Shelli Ambriz M.D. Narrative 03/25/2023 7:34 PM FREIGHT BROKER EXAMINATION: Abdomen, one view. HISTORY: Dobbhoff placement COMPARISON: None Procedure Note Shelli Ambriz MD - 03/25/2023 EXAMINATION: Abdomen, one view. HISTORY: Dobbhoff placement COMPARISON: None IMPRESSION: A single view of the abdomen is submitted for evaluation. Feeding tube with tip projecting over the gastric fundus. The stylette remains in place. Contrast in the proximal colon. No evidence of bowel obstruction in the imaged portion of the abdomen and pelvis. Vascular calcifications are present. The Non Critical results regarding Dobbhoff tube positioning were discussed with Dr. Villavicencio by Dr. Stone on 03/25/2023 at 6:56 PM Dictated by: Omar Stone M.D. The radiology attending physician has personally reviewed this study, and had reviewed and/or edited this written report and agrees with it. Electronically signed by: Shelli Ambriz M.D. us Stanislaw Goel MD IMG XR PROCEDURES Final Result * Surgical pathology (03/25/2023 3:29 PM FREIGHT BROKER) Tissue (Soft tissue biopsy) 03/25/2023 3:29 PM FREIGHT BROKER Comment:Frozen Tissue (Soft tissue biopsy) 03/25/2023 3:58 PM FREIGHT BROKER Comment:Permanent Narrative PATHOLOGY [facility] - 03/29/2023 11:31 AM FREIGHT BROKER EPIC results best viewed via link to PDF [facility] [place] [address] Note to Patients: This report may contain a detailed description of human tissue sent by a health care provider to the laboratory for pathologic evaluation. The content of this report is essential for diagnosis and may provide important critical findings. This information may be unfamiliar to patients to review without a medical professional present. It is advised that the patient review this report in the presence of a health care provider who can answer questions and explain the details. SURGICAL PATHOLOGY REPORT FINAL WITH ADDENDUM Patient Name: ?? ALEKSEY GARCIA Gender: ??M : ??1960 (Age: 63) Address: ??[address] [place] [address] ??[address] Hospital #: ??[id number] Taken:03/25/2023 Received:03/25/2023 Reported: 03/29/2023 Patient Type: [facility] Inpatient ?? Service: Medical Location: [facility] [address]52 Physician(s): ??Rocio Quiroz MD Diagnosis: A. 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 ??Oropharynx, left #2, biopsy ? 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 Yahaira Carter M.D. Report Electronically Reviewed and Signed Out By ??Yahaira Carter M.D. 03/29/2023 11:31:37 Intraoperative Consultation: Frozen Section Diagnosis Afr1: Left oropharynx - Positive for carcinoma, favor non-keratinizing squamous cell carcinoma By Roque Oconnor M.D. Gross Consultation A: Left oropharynx Received fresh, labeled with patient's identifiers Left oropharynx is 0.6 x 0.5 0.4 cm fragments of pink-kim tissue. The specimen is submitted entirely for frozen section with remnant placed in cassette AFR1 By Roque Oconnor M.D. I personally examined the relevant preparation(s) or a microscopic image of the relevant preparation(s) for the specimen(s) while the surgical procedure was still underway and rendered or confirmed the diagnosis(es) Report Electronically reviewed and Signed out by Roque Oconnor M.D. (A) Microscopic Description and Comment: Microscopic examination substantiates the above cited diagnosis. Immunohistochemistry was performed with appropriate controls for further characterization. These show that the tumor cells are positive for CK5/6, p40 and p16 but negative for CK7, supporting the diagnosis of [id number] squamous cell carcinoma. HPV RNA MANJIT is also pending and the results will be reported in an addendum. History: The patient is a 63-year-old man with an oral mass. Operative procedure: Laryngoscopy with biopsy. Specimen(s) Received: A: Left new pharynx B: Left new pharynx #2 Gross Description: Received in two formalin jars labeled with the patient's identifiers. A. ??Labeled left oropharynx is a cassette labeled AFR1 which contains a frozen section remnant of four kim-white tissue fragments. ??Labeled AFR1. ??Jar 0. ?? B. ??Labeled left oropharynx #2 is a 1.3 x 1.0 x 0.2 cm aggregate of three kim-white tissue fragments. ??Entirely submitted in B1. ??Jar 0. ? dxb/03/25/2023 16:50 PA(s): LAZARO Cabrera, SHAHID([facility])CM By this signature, I attest that the above diagnosis is based upon my personal examination of the slides(and/or other material). Addenda/Procedures Addendum Ordered:04/04/2023Status:Signed OutAddendum Complete:04/04/2023y:Manuela Senior MDAddendum Signed Out:04/05/2023 Addendum Diagnosis A digital scan of the original reference lab report will begin on page two of this addendum. ?? By this signature, I attest that the above diagnosis is based upon my personal examination of the slides(and/or other material indicated in the diagnosis). Manuela Senior MDReport Electronically Reviewed and Signed Out By ??Manuela Senior MD ??04/05/2023 09:19:00 ?? The HPV High Risk test was performed by [facility], [address] [place] [id number]. The performance characteristics of some immunohistochemical stains, fluorescence in-situ hybridization tests and immunophenotyping by flow cytometry cited in this report (if any) were determined by the Surgical Pathology and Flow Cytometry Departments at [facility] as part of an ongoing senior software quality engineer program and in compliance with federally mandated regulations drawn from the Clinical Laboratory Improvement Act of 1988 (CLIA '88). ??Some of these tests rely on the use of analyte specific reagents and are subject to specific labeling requirements by the US Food and Drug Administration. ??Such diagnostic tests may only be performed in a facility that is certified by the Department of Health and Human Services as a high complexity laboratory under CLIA '88. ??The FDA has determined that such clearance or approval is not necessary. ??This test is used for clinical purposes. ??It should not be regarded as investigational or for research. ??Nevertheless, federal rules concerning the medical use of analyte specific reagents require that the following disclaimer be attached to the report: This test was developed and its performance characteristics determined by the Surgical Pathology and Flow Cytometry Departments of [facility]. ??It has not been cleared or approved by the U. S. Food and Drug Administration. IMAGES AND SCANNED DOCUMENTS, IF INCLUDED, ONLY VIEWABLE IN PDF VERSION OF REPORT Rocio Quiroz MD LAB PATHOLOGY ORDERABLES Final Result PATHOLOGY [facility] 3rd Floor [place], [place] [phone] * (ABNORMAL) Osmolality, blood (03/25/2023 12:40 PM FREIGHT BROKER) Osmo 271(L) 275 - 300 mOsm/kg [facility] Blood 03/25/2023 12:4 0 PM FREIGHT BROKER 03/25/2023 1:32 PM FREIGHT BROKER Stanislaw Goel MD LAB BLOOD ORDERABLES Fi nal Result Performing Organization Address [facility] Co de Phone Number [facility] [place] [address] * (ABNORMAL) Hemoglobin and hematocrit (03/25/2023 12:40 PM FREIGHT BROKER) Hgb 8.1(L) 13.0 - 17.5 g/dL [facility] Hct 24.7(L) 38.9 - 50.3 % [facility] Blood 03/25/2023 12:4 0 PM FREIGHT BROKER 03/25/2023 1:33 PM FREIGHT BROKER Stanislaw Goel MD LAB BLOOD ORDERABLES Fi nal Result Performing Organization Address City/[facility] Co de Phone Number [facility] [place] [address] * (ABNORMAL) Urinalysis, microscopic only (03/25/2023 7:55 AM FREIGHT BROKER) WBC, ur 0-5 0 - 5 /HPF [facility] RBC, ur 0-2 0 - 2 /HPF [facility] Epithelial cells, squamous, ur 1-5 0 - 5 /HPF [facility] Bacteria, ur Trace(A) [facility] Yeast, ur Trace(A) [facility] Mucous, ur Present(A) [facility] Culture Reflex Comment Reflex conditions for urine culture (WBC >10) not met. [facility] Urine 03/25/2023 7:55 AM FREIGHT BROKER 03/25/2023 8:18 AM FREIGHT BROKER us Winsome Post MD LAB URINE ORDERABLES Final Result Performing Organization Address [facility] de Phone Number [facility] [place] [address] * Sodium, urine, random (03/25/2023 7:55 AM FREIGHT BROKER) Sodium, ur 139 mmol/L [facility] Comment: Interpretive Data No reference range established. Current interpretive data was last revised 2018. Urine 03/25/2023 7:55 AM FREIGHT BROKER 03/25/2023 8:27 AM FREIGHT BROKER us Stanislaw Goel MD LAB URINE ORDERABLES Fi nal Result Performing Organization Address City/[facility]/ZIP Co de Phone Number [facility] [place] [address] * Osmolality, urine (03/25/2023 7:55 AM FREIGHT BROKER) Osmo, ur 479 mOsm/kg [facility] Urine 03/25/2023 7:55 AM FREIGHT BROKER 03/25/2023 8:27 AM FREIGHT BROKER us Stanislaw Goel MD LAB URINE ORDERABLES Fi nal Result Performing Organization Address [facility]/ZIP Co de Phone Number [facility] [place] [address] * (ABNORMAL) Urinalysis reflex to microscopic and culture Urine (03/25/2023 7:55 AM FREIGHT BROKER) Color, ur Straw Yellow [facility] Clarity, ur Clear Clear [facility] Specific gravity, ur 1.014 1.003 - 1.030 [facility] pH, urine 7.0 [facility] Comment: Interpretive Data ? Urine pH is affected by diet, medications, systemic acid-base disturbances, and renal tubular function. ??pH may affect urinary stone formation. ??For example, urine pH below 6.0 may help reduce the tendency for calcium phosphate stones and pH greater than 6.0 may reduce the tendency for uric acid stone formation. Source: [facility] Current Interpretive Data was last revised on 2017 Protein, ur ql Negative Negative [facility] Glucose, ur ql Negative Negative [facility] Ketones, ur Negative Negative [facility] Bilirubin, ur Negative Negative [facility] Blood, ur Negative Negative [facility] Urobilinogen, ur <2.0 <2.0 mg/dL [facility] Nitrite, ur Positive(A) Negative [facility] Leukocyte esterase, ur Negative Negative [facility] UA reflex comment Reflex to microscopic UA will be performed. [facility] Urine 03/25/2023 7:55 AM FREIGHT BROKER 03/25/2023 8:18 AM FREIGHT BROKER us Winsome Post MD LAB MICROBIOLOGY - GENERAL ORDERABLES Final Result Performing Organization Address [facility] Co de Phone Number [facility] [place] [address] * eGFR (03/25/2023 6:14 AM FREIGHT BROKER) eGFR >90 >=60 mL/min/1. 73 m2 [facility] Comment: Interpretive Data Reference Interval Normal ?>/= 90 mL/min/1.73m2 Mildly decreased* ? 60 - 89 mL/min/1.73m2 Mildly to moderately decreased ?45 - 59 mL/min/1.73m2 Moderately to severely decreased ??30 - 44 mL/min/1.73m2 Severely decreased ?15 - 29 mL/min/1.73m2 Kidney Failure ?< 15 ??mL/min/1.73m2 *Relative to young adult level Estimated glomerular filtration rate is determined by the 2020 CKD-EPI equation recommended by the National Kidney Foundation (A Unifying Approach to GFR Estimation: Recommendations of the NKF-ASK Task Force on Reassessing the Inclusion of Race in Diagnosing Kidney Disease, JASN 2020). The CKD-EPI equation should not be used for patients with unstable renal function and has not been validated in children and those over 70. Current interpretive data was last reviewed 2020. Blood 03/25/2023 6:14 AM FREIGHT BROKER 03/25/2023 6:48 AM FREIGHT BROKER us Celio Bonds MD LAB BLOOD ORDERABLES Iris ortega Result [facility] Department [place] [address] * (ABNORMAL) Basic metabolic panel (03/25/2023 6:14 AM FREIGHT BROKER) Sodium 131(L) 135 - 145 mmol/L [facility] Potassium, pl 4.0 3.3 - 4.9 mmol/L [facility] Chloride 99 97 - 110 mmol/L [facility] CO2 28 22 - 32 mmol/L [facility] Anion gap 4 2 - 15 mmol/L [facility] BUN 12 6 - 25 mg/dL [facility] Creatinine 0.49(L) 0.80 - 1.30 mg/dL [facility] Glucose 89 70 - 199 mg/dL [facility] Comment: Interpretive Data Fasting glucose >/= 126 mg/dl is diagnostic for diabetes. ?? Fasting is defined as no caloric intake for at least 8 hours. Fasting glucose between 100 mg/dl to 125 mg/dl is diagnostic of prediabetes. In a patient with classic symptoms of hyperglycemia or hyperglycemic crisis, a random glucose >/= 200 mg/dl is diagnostic for diabetes. In the absence of unequivocal hyperglycemia, results should be confirmed by repeat testing. The classification and Diagnosis of Diabetes Diabetes Care 2021; 46: S19-S40. Current interpretive data was last revised 2022. Calcium 8.3(L) 8.5 - 10.3 mg/dL [facility] Blood 03/25/2023 6:14 AM FREIGHT BROKER 03/25/2023 6:48 AM FREIGHT BROKER us Celio Bonds MD LAB BLOOD ORDERABLES Iris l Result Performing Organization Address City/[facility]/ZIP Co de Phone Number [facility] [place] [place] [address] * (ABNORMAL) Hemoglobin and hematocrit (03/25/2023 6:14 AM FREIGHT BROKER) Pathologist [facility] Hgb 8.6(L) 13.0 - 17.5 g/dL [facility] Hct 25.7(L) 38.9 - 50.3 % [facility] Blood 03/25/2023 6:14 AM FREIGHT BROKER 03/25/2023 6:48 AM FREIGHT BROKER us Stanislaw Goel MD LAB BLOOD ORDERABLES Fi nal Result Performing Organization Address City/[facility]/ZIP Co de Phone Number [facility] [place] [place] [address] * eGFR (03/24/2023 9:13 PM FREIGHT BROKER) eGFR >90 >=60 mL/min/1. 73 m2 [facility] Comment: Interpretive Data Reference Interval Normal ?>/= 90 mL/min/1.73m2 Mildly decreased* ? 60 - 89 mL/min/1.73m2 Mildly to moderately decreased ?45 - 59 mL/min/1.73m2 Moderately to severely decreased ??30 - 44 mL/min/1.73m2 Severely decreased ?15 - 29 mL/min/1.73m2 Kidney Failure ?< 15 ??mL/min/1.73m2 *Relative to young adult level Estimated glomerular filtration rate is determined by the 2020 CKD-EPI equation recommended by the National Kidney Foundation (A Unifying Approach to GFR Estimation: Recommendations of the NKF-ASK Task Force on Reassessing the Inclusion of Race in Diagnosing Kidney Disease, SHELBYSAletha 2020). The CKD-EPI equation should not be used for patients with unstable renal function and has not been validated in children and those over 70. Current interpretive data was last reviewed 2020. Blood 03/24/2023 9:13 PM FREIGHT BROKER 03/24/2023 10:20 PM FREIGHT BROKER us Celio Bonds MD LAB BLOOD ORDERABLES Iris ortega Result [facility] [place] [address] * (ABNORMAL) Basic metabolic panel (03/24/2023 9:13 PM FREIGHT BROKER) Sodium 133(L) 135 - 145 mmol/L [facility] Potassium, pl 4.4 3.3 - 4.9 mmol/L [facility] Chloride 100 97 - 110 mmol/L [facility] CO2 29 22 - 32 mmol/L [facility] Anion gap 4 2 - 15 mmol/L [facility] BUN 16 6 - 25 mg/dL [facility] Creatinine 0.50(L) 0.80 - 1.30 mg/dL [facility] Glucose 102 70 - 199 mg/dL [facility] Comment: Interpretive Data Fasting glucose >/= 126 mg/dl is diagnostic for diabetes. ?? Fasting is defined as no caloric intake for at least 8 hours. Fasting glucose between 100 mg/dl to 125 mg/dl is diagnostic of prediabetes. In a patient with classic symptoms of hyperglycemia or hyperglycemic crisis, a random glucose >/= 200 mg/dl is diagnostic for diabetes. In the absence of unequivocal hyperglycemia, results should be confirmed by repeat testing. The classification and Diagnosis of Diabetes Diabetes Care 202; 46: S19-S40. Current interpretive data was last revised 2022. Calcium 8.5 8.5 - 10.3 mg/dL [facility] Blood 03/24/2023 9:13 PM FREIGHT BROKER 03/24/2023 10:20 PM FREIGHT BROKER us Celio Bonds MD LAB BLOOD ORDERABLES Iris ortega Result [facility] [place] [address] * (ABNORMAL) CBC without differential (03/24/2023 9:13 PM FREIGHT BROKER) WBC 4.8 3.8 - 9.9 K/cumm [facility] Hgb 8.0(L) 13.0 - 17.5 g/dL [facility] Hct 24.4(L) 38.9 - 50.3 % [facility] Plt 247 150 - 400 K/cumm [facility] MPV 9.2 9.1 - 12.3 fL [facility] RBC 2.58(L) 4.30 - 5.80 M/cumm [facility] MCV 94.6 81.3 - 96.4 fL [facility] MCH 31.0 27.1 - 33.3 pg [facility] MCHC 32.8 32.3 - 35.7 g/dL [facility] RDW CV 14.0 11.1 - 14.9 % [facility] RDW SD 48.4(H) 35.7 - 48.1 fL [facility] NRBC abs 0.00 0.00 - 0.01 K/cumm [facility] Blood 03/24/2023 9:13 PM FREIGHT BROKER 03/24/2023 10:21 PM FREIGHT BROKER us Stanislaw Goel MD LAB BLOOD ORDERABLES Fi nal Result [facility] [place] [address] * Phosphorus (03/24/2023 9:13 PM FREIGHT BROKER) Phosphorus, pl 2.9 2.3 - 4.5 mg/dL [facility] Blood 03/24/2023 9:13 PM FREIGHT BROKER 03/24/2023 10:20 PM FREIGHT BROKER us Celio Bonds MD LAB BLOOD ORDERABLES Iris l Result Performing Organization Address City/[facility] Co de Phone Number [facility] [place] [address] * Magnesium (03/24/2023 9:13 PM FREIGHT BROKER) Magnesium 2.0 1.4 - 2.5 mg/dL [facility] Blood 03/24/2023 9:13 PM FREIGHT BROKER 03/24/2023 10:20 PM FREIGHT BROKER us Celio Bonds MD LAB BLOOD ORDERABLES Iris l Result Performing Organization Address City/[facility] Co de Phone Number [facility] [place] [address] * (ABNORMAL) Hemoglobin and hematocrit (03/24/2023 3:00 PM FREIGHT BROKER) Hgb 8.3(L) 13.0 - 17.5 g/dL [facility] Hct 24.9(L) 38.9 - 50.3 % [facility] Blood 03/24/2023 3:00 PM FREIGHT BROKER 03/24/2023 3:36 PM FREIGHT BROKER us Stanislaw Goel MD LAB BLOOD ORDERABLES Fi nal Result [facility] Department [place] [address] * FL Modified Barium Swallow W Video (03/24/2023 1:38 PM FREIGHT BROKER) Anatomical Region Laterality Modality Head and Neck N/A Computed Radiogr aphy 03/24/2023 2:42 PM FREIGHT BROKER Impressions 03/24/2023 2:43 PM FREIGHT BROKER The swallowing mechanism is abnormal; see above comments. Please refer to the Speech Pathology procedure note for safe swallow recommendations as well as additional information regarding the oral-pharyngeal swallow function, plan of care, and recommended follow up. Dictated by: Jarocho Thao MD The radiology attending physician has personally reviewed this study, and had reviewed and/or edited this written report and agrees with it. Electronically signed by: Shila Matos M.D. Narrative 03/24/2023 2:43 PM FREIGHT BROKER EXAMINATION: MODIFIED BARIUM SWALLOW HISTORY: Dysphagia. TECHNIQUE: This procedure was completed in conjunction with a Speech Language Pathologist. The patient was given barium of multiple different consistencies to swallow. Video fluoroscopy was employed during the exam. FINDINGS: Pharyngeal swallow function is abnormal. Penetration: Yes There is penetration of thin liquids. Penetration is not sensed. The penetrated material ??is cleared. Aspiration: Yes There is aspiration of thin liquids. Aspiration ??is sensed. The aspirated material is not cleared. Residue:Yes There is pharyngeal residue of puree. Residue is sensed. The residual material is inconsistently cleared. Other comments: None Procedure Note Shila Matos MD - 03/24/2023 EXAMINATION: MODIFIED BARIUM SWALLOW HISTORY: Dysphagia. TECHNIQUE: This procedure was completed in conjunction with a Speech Language Pathologist. The patient was given barium of multiple different consistencies to swallow. Video fluoroscopy was employed during the exam. FINDINGS: Pharyngeal swallow function is abnormal. Penetration: Yes There is penetration of thin liquids. Penetration is not sensed. The penetrated material is cleared. Aspiration: Yes There is aspiration of thin liquids. Aspiration is sensed. The aspirated material is not cleared. Residue:Yes There is pharyngeal residue of puree. Residue is sensed. The residual material is inconsistently cleared. Other comments: None IMPRESSION: The swallowing mechanism is abnormal; see above comments. Please refer to the Speech Pathology procedure note for safe swallow recommendations as well as additional information regarding the oral-pharyngeal swallow function, plan of care, and recommended follow up. Dictated by: Jarocho Thao MD The radiology attending physician has personally reviewed this study, and had reviewed and/or edited this written report and agrees with it. Electronically signed by: Shila Matos M.D. us Stanislaw Goel MD IMG FLUOROSCOPY PROCEDU RES Final Result * STUBBER Evaluate and Treat (VFSS) (03/24/2023 1:36 PM FREIGHT BROKER) Narrative Maida Carvajal, [place] - 03/24/2023 1:36 PM FREIGHT BROKER Nadia Stephenson ? 03/24/2023 ??4:06 PM Speech-Language Pathology: Videofluoroscopic Study of Swallow (VFSS/MBS) HPI/PMH 63yo male with PMH HTN, active tobacco use, urinary retention, and newly found L oropharyngeal mass presenting with hemoptysis. He states that over the past year he's noticed a 40 lb weight loss and increasing difficulty with swallowing solids (okay with liquids), as well as a month of worsening N/V, and intermittent hemoptysis. The hemoptysis used to occur intermittently in small amounts (worse with solids) but acutely worsened last weekend. He presented to an OSH ([facility] on 03/21/23 where they found a large L oropharyngeal mass on CT neck. He was discharged home with plan to f/u with [facility] ENT outpatient. However earlier today he had another episode of hemoptysis reporting around 1 pint of blood loss so he came to the ER. Six months ago he moved from [place] to [place], [place] where he lives with his daughter and niece's family. Due to the move, there was some delay in establishing with a new PCP here. ENT was consulted in the ER and recommended no acute intervention. 03/23- ENT consult. ??Patient denies SOB, stridor, voice changes, aspiration, prior H&N radiation. Scope and physical exam negative for source of bleeding. The mass is submucosal and hypomobile to the tongue musculature. ??We discussed that the next steps of his workup include tissue biopsy and additional imaging with a PET-CT. We discussed potentially performing a bedside biopsy, but this was challenged by trismus, decreased tongue mobility, and concern for hemostasis in setting of recent bleeding. Therefore, we deferred biopsy for now. Recommend further workup with CTA to evaluate for sources of bleeding. - Head and neck CTA - No acute ENT intervention No prior ST notes. Respiratory/Intubation Status: RA CTA 03/23- Large ulcerative left oropharyngeal neck mass highly suspicious for malignancy such as squamous cell carcinoma involving the left parapharyngeal, data operations manager, submandibular, and sublingual spaces with osseous involvement of the left mandible. ??Multiple branches of the left external carotid artery including the ascending pharyngeal and lingual branches course through this mass without evidence of active arterial extravasation. CXR 03/23- Hyperinflated lungs. Mildly elevated left hemidiaphragm with mild left basilar reticular nodular opacities which may represent atelectasis vs bronchiolitis related to aspiration. No pulmonary edema. ??No pleural effusion or pneumothorax. Current Diet Order: NPO Baseline Diet: Thin liquids, Ensures, no solids General Information Aleksey Garcia 03/24/23 STUBBER Received On: 03/24/23 General Observations: Pt alert and cooperative. Pt edentulous, no dentures present. Pt reports gagging on solids, feeling food stick in the throat, and consistent weight loss over the past year. Pt has a L oropharyngeal mass detected 03/21. Reason for Referral: Oropharyngeal mass detected, difficulty swallowing solid consistencies Pain Score: 0 - No pain If pain >4, was RN notified? N/A Patient Stated Goal/Comments: N/A Precautions: None Clinical Impression & Professional Recommendations Diet Solids Recommendation: Full liquids (NO purees) Diet Liquids Recommendations: Thin/regular Recommended Form of Medications: Non-orally (Or liquid form, crushed with liquid) Compensatory Strategies/Modifications: Small bites, Single sips, Double/repeat swallows to clear Postural Recommendations: Upright Assistance with feeding/swallowing: Setup only Specialty Instructions: Good oral care 2-3x/day Overall Clinical Impression/Additional Information: ?? 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 Pharyngeal Phase Deficits: Absent pharyngeal stripping wave, reduced base of tongue retraction, decreased anterior hyoid excursion, and absent epiglottic movement. Deficits result in: Pharyngeal deficits felt to be secondary to location of oral-pharyngeal mass as cited on head/neck CT. High penetration noted with initial thin liquid trial x1 that cleared with completion of the swallow. No esophageal clearance noted with purees. Utilized a L head turn with effortful swallow, R head turn, and cough in attempt to clear, however, minimal clearance through UES and pt was unable to cough puree to the oral cavity for suction. Pt with gross aspiration of liquid wash in attempts to clear puree. No further puree or solids trialed at this time 2/2 pharyngeal deficits and safety concern. Assessment Details & Results Purpose and Procedure of Videofluoroscopic Study of Swallow: Videofluoroscopic Study of Swallow completed to assess oropharyngeal swallow function and safety/efficiency of the swallow so that diet recommendations can be made. This test is completed in conjunction with Radiology. Results of this test are indicative of performance at the time of the exam. Standard procedure is in lateral view at 90 degrees. Consistencies Administered: Thin liquids, Purees Administered consistencies contain barium product. Thin Liquids: Laryngeal Penetration: Present Aspiration Present: Yes Timing: After (on puree residue) Amount: Gross Response to aspiration: Cough reflex Cough: Non-productive Successful Modifications : None Unsuccessful Modifications: Cough Successful Modification Combinations: None Unsuccessful Modification Combinations: None Penetration Aspiration Scale-Thin: 7-Material enters the airway, passes below the vocal folds and is not ejected from the trachea despite effort Purees: Laryngeal Penetration: None Aspiration Present: No Successful Modifications : None Unsuccessful Modifications: Repeat swallow, Alternated liquids and solids, Turn head left, Turn head right, Effortful swallow, Cough Successful Modification Combinations: None Unsuccessful Modification Combinations: Effortful swallow, Turn head left Penetration Aspiration Scale-Puree: 1-Material does not enter airway MBSImp: MBSImp Results: Lip closure : 0-No labial escape Tongue Control with Bolus Hold: 0-Cohesive bolus between tongue to palatal seal Bolus Preparation/Mastication : Chewables deferred due to overall oral inefficiency (did not trial solids) Bolus Transport/Lingual Motion : 0-Brisk tongue motion Oral Residue: 1-Trace residue lining oral structures (normal variant) Initiation of Pharyngeal Swallow : 1-Bolus head in valleculae Soft Palate : 0-No bolus between soft palate and pharyngeal wall Laryngeal Elevation : 0-Complete superior movement of thyroid cartilage with complete approximation of arytenoids to epiglottic petiole Anterior Hyoid Excursion: 1-Partial anterior movement Epiglottic Movement: 2-No inversion Laryngeal Vestibular Closure: 1-Incomplete, narrow column of air/contrast in laryngeal vestibule Pharyngeal Stripping Wave: 2-Absent Pharyngeal Contraction (AP view only): Not assessed, No AP view Pharyngoesophageal Segment Opening : 3-No distension with total obstruction of flow Tongue Base Retraction : 3-Wide column of contrast or air between tongue base and posterior pharyngeal wall Pharyngeal Residue : 4-Minimal to no pharyngeal clearance Esophageal Clearance (upright position): Not assessed, No AP view Dysphagia Outcome and Severity Scale: Dysphagia Outcomes and Severity Scale: 2 Moderate/Severe dysphagia Levels 1 & 2 on the ANGY indicate need for nonoral nutrition. Treatment Treatment was not provided this date. Please reference care plan for treatment goals and details, if indicated. Plan STUBBER Frequency of Services during current admission: Discharge from this Service STUBBER Recommendation (Add'l Services): No further STUBBER indicated Given nature of dysphagia, STUBBER not indicated at this time. Notified MD to re-refer as needed throughout treatment course. Next Visit Plan: No further ST warranted Additional Referrals: ENT Discharge Summary Statement If this is the last swallow therapy visit, this serves as the discharge summary. us Stanislaw Goel MD STUBBER ORDERABLES Final R esult * eGFR (03/24/2023 5:17 AM FREIGHT BROKER) eGFR >90 >=60 mL/min/1. 73 m2 [facility] Comment: Interpretive Data Reference Interval Normal ?>/= 90 mL/min/1.73m2 Mildly decreased* ? 60 - 89 mL/min/1.73m2 Mildly to moderately decreased ?45 - 59 mL/min/1.73m2 Moderately to severely decreased ??30 - 44 mL/min/1.73m2 Severely decreased ?15 - 29 mL/min/1.73m2 Kidney Failure ?< 15 ??mL/min/1.73m2 *Relative to young adult level Estimated glomerular filtration rate is determined by the 2020 CKD-EPI equation recommended by the National Kidney Foundation (A Unifying Approach to GFR Estimation: Recommendations of the NKF-ASK Task Force on Reassessing the Inclusion of Race in Diagnosing Kidney Disease, JASN 2020). The CKD-EPI equation should not be used for patients with unstable renal function and has not been validated in children and those over 70. Current interpretive data was last reviewed 2020. Blood 03/24/2023 5:17 AM FREIGHT BROKER 03/24/2023 6:32 AM FREIGHT BROKER Celio Bonds MD LAB BLOOD ORDERABLES Iris l Result Performing Organization Address City/[facility] Co de Phone Number [facility] [place] [address] * Potassium, whole blood (03/24/2023 5:17 AM FREIGHT BROKER) [facility] Potassium, bld 4.4 3.3 - 4.9 mmol/L [facility] Blood 03/24/2023 5:17 AM FREIGHT BROKER 03/24/2023 6:27 AM FREIGHT BROKER Celio Bonds MD LAB BLOOD ORDERABLES Iris l Result Performing Organization Address City/[facility] Co de Phone Number [facility] [place] [address] * Respiratory pathogen panel Nasopharyngeal (03/24/2023 5:17 AM FREIGHT BROKER) [facility] Influenza A RNA Not Detected Not Detected [facility] Influenza B RNA Not Detected Not Detected [facility] RSV RNA Not Detected Not Detected [facility] COVID-19 RNA Not Detected Not Detected [facility] Coronavirus 229E RNA Not Detected Not Detected [facility] Coronavirus HKU1 RNA Not Detected Not Detected [facility] Coronavirus NL63 RNA Not Detected Not Detected [facility] Coronavirus OC43 RNA Not Detected Not Detected [facility] Adenovirus DNA Not Detected Not Detected [facility] Metapneumovirus RNA Not Detected Not Detected [facility] Rhinovirus/Enterov irus RNA Not Detected Not Detected [facility] Parainfluenza 1 RNA Not Detected Not Detected [facility] Parainfluenza 2 RNA Not Detected Not Detected [facility] Parainfluenza 3 RNA Not Detected Not Detected [facility] Parainfluenza 4 RNA Not Detected Not Detected [facility] B. pertussis DNA Not Detected Not Detected [facility] B. parapertussis DNA Not Detected Not Detected [facility] C. pneumoniae DNA Not Detected Not Detected [facility] M. pneumoniae DNA Not Detected Not Detected [facility] Nasopharyngeal 03/24/2023 5: 17 AM FREIGHT BROKER 03/24/2023 6:45 AM FREIGHT BROKER Narrative [facility] - 03/24/2023 7:38 AM FREIGHT BROKER Is the Patient experiencing symptoms consistent with COVID?->No Surveillance testing for transplant patient?->No ??Interpretive Data The [employer] FilmArray Respiratory Panel (RP2.1) assay is a multiplexed real-time PCR based nucleic acid test capable of simultaneous qualitative detection and identification of multiple respiratory viral and bacterial nucleic acids, including SARS Coronavirus 2 (the causative agent of COVID-19). The following bacteria, viruses and virus subtypes can be identified using the FilmArray RP2.1 assay: Bordetella pertussis, Bordetella parapertussis, Chlamydia pneumoniae, Mycoplasma pneumoniae, Adenovirus, SARS Coronavirus 2, seasonal coronaviruses (Coronavirus HKU1, Coronavirus NL63, Coronavirus 229E, and Coronavirus OC43), Influenza A, Influenza A subtype H1, Influenza A subtype H3, Influenza A subtype 2009 H1, Influenza B, Metapneumovirus, Parainfluenza 1, Parainfluenza 2, Parainfluenza 3, Parainfluenza 4, RSV, Rhinovirus/Enterovirus. Due to the genetic similarity between human Rhinovirus and Enterovirus, the FilmArray RP2.1 assay cannot reliably differentiate them. Coronavirus OC43 may cross-react with some isolates of Coronavirus HKU1. ??A dual positive result may be due to cross-reactivity or may indicate a co-infection. The detection and identification of specific viral and bacterial nucleic acids from individuals exhibiting signs and symptoms of a respiratory infection aids in the diagnosis of respiratory infection if used in conjunction with other clinical and epidemiological information. ??The results of this test should not be used as the sole basis for diagnosis, treatment, or other management decisions. ??Negative results in the setting of a respiratory illness may be due to infection with pathogens that are not detected by this test. ??Positive results do not rule out infection/co-infection with other organisms. ??The agent(s) detected by the FilmArray RP2.1 may not be the definite cause of disease. ??Additional testing (lab, imaging, etc.) may be necessary when evaluating a patient with possible respiratory tract infection. The FilmArray RP2.1 assay has FDA clearance for testing of LOADING UNIT OPERATOR SEATING swabs. ??The performance of additional specimen types has been assessed by the performing laboratory. ??The performance characteristics of this assay have been determined by [facility] Molecular Infectious Disease [facility]. Current interpretive data was last revised on 21. us Celio Bonds MD LAB MICROBIOLOGY - GENERA L ORDERABLES Final Result [facility] Department [place] [address] * (ABNORMAL) Basic metabolic panel (03/24/2023 5:17 AM FREIGHT BROKER) Sodium 133(L) 135 - 145 mmol/L [facility] Potassium, pl 4.4 3.3 - 4.9 mmol/L [facility] Chloride 101 97 - 110 mmol/L [facility] CO2 27 22 - 32 mmol/L [facility] Anion gap 5 2 - 15 mmol/L [facility] BUN 19 6 - 25 mg/dL [facility] Creatinine 0.48(L) 0.80 - 1.30 mg/dL [facility] Glucose 99 70 - 199 mg/dL [facility] Comment: Interpretive Data Fasting glucose >/= 126 mg/dl is diagnostic for diabetes. ?? Fasting is defined as no caloric intake for at least 8 hours. Fasting glucose between 100 mg/dl to 125 mg/dl is diagnostic of prediabetes. In a patient with classic symptoms of hyperglycemia or hyperglycemic crisis, a random glucose >/= 200 mg/dl is diagnostic for diabetes. In the absence of unequivocal hyperglycemia, results should be confirmed by repeat testing. The classification and Diagnosis of Diabetes Diabetes Care 2021; 46: S19-S40. Current interpretive data was last revised 2022. Calcium 7.9(L) 8.5 - 10.3 mg/dL [facility] Blood 03/24/2023 5:17 AM FREIGHT BROKER 03/24/2023 6:32 AM FREIGHT BROKER us Celio Bonds MD LAB BLOOD ORDERABLES Iris l Result Performing Organization Address City/[facility]/ZIP Co de Phone Number [facility] Department [place] [address] * (ABNORMAL) Hemoglobin and hematocrit (03/24/2023 5:17 AM FREIGHT BROKER) Hgb 8.3(L) 13.0 - 17.5 g/dL [facility] Hct 24.1(L) 38.9 - 50.3 % [facility] Blood 03/24/2023 5:17 AM FREIGHT BROKER 03/24/2023 6:32 AM FREIGHT BROKER us Stanislaw Goel MD LAB BLOOD ORDERABLES Fi nal Result [facility] Department [place] [address] * (ABNORMAL) CBC without differential (03/23/2023 10:33 PM FREIGHT BROKER) WBC 4.7 3.8 - 9.9 K/cumm [facility] Hgb 8.8(L) 13.0 - 17.5 g/dL [facility] Hct 26.0(L) 38.9 - 50.3 % [facility] Plt 260 150 - 400 K/cumm [facility] MPV 9.1 9.1 - 12.3 fL [facility] RBC 2.83(L) 4.30 - 5.80 M/cumm [facility] MCV 91.9 81.3 - 96.4 fL [facility] MCH 31.1 27.1 - 33.3 pg [facility] MCHC 33.8 32.3 - 35.7 g/dL [facility] RDW CV 13.5 11.1 - 14.9 % [facility] RDW SD 45.7 35.7 - 48.1 fL [facility] NRBC abs 0.00 0.00 - 0.01 K/cumm [facility] Blood 03/23/2023 10:3 3 PM FREIGHT BROKER 03/23/2023 11:13 PM FREIGHT BROKER us Stanislaw Goel MD LAB BLOOD ORDERABLES Fi nal Result [facility] Department [place] [address] * (ABNORMAL) Osmolality, blood (03/23/2023 10:28 PM FREIGHT BROKER) Osmo 270(L) 275 - 300 mOsm/kg [facility] Blood 03/23/2023 10:2 8 PM FREIGHT BROKER 03/23/2023 11:12 PM FREIGHT BROKER us Celio Bonds MD LAB BLOOD ORDERABLES Iris l Result [facility] Department [place] [address] * Magnesium (03/23/2023 10:28 PM FREIGHT BROKER) Magnesium 2.1 1.4 - 2.5 mg/dL [facility] Blood 03/23/2023 10:2 8 PM FREIGHT BROKER 03/23/2023 11:12 PM FREIGHT BROKER us Celio Bonds MD LAB BLOOD ORDERABLES Iris l Result Performing Organization Address City/[facility]/ZIP Co de Phone Number [facility] [place] [address] * Phosphorus (03/23/2023 10:28 PM FREIGHT BROKER) Phosphorus, pl 3.8 2.3 - 4.5 mg/dL [facility] Blood 03/23/2023 10:2 8 PM FREIGHT BROKER 03/23/2023 11:12 PM FREIGHT BROKER us Celio Bonds MD LAB BLOOD ORDERABLES Iris l Result Performing Organization Address [facility] Co de Phone Number [facility] [place] [address] * Vitamin B12 (03/23/2023 10:28 PM FREIGHT BROKER) Vitamin B12 386 230 - 1,250 pg/mL [facility] Blood 03/23/2023 10:2 8 PM FREIGHT BROKER 03/23/2023 11:12 PM FREIGHT BROKER us Celio Bonds MD LAB BLOOD ORDERABLES Iris l Result Performing Organization Address [facility] Co de Phone Number [facility] [place] [address] * Iron profile w/ IBC (03/23/2023 10:28 PM FREIGHT BROKER) Iron 64 50 - 150 mcg/dL [facility] TIBC 304 250 - 400 mcg/dL [facility] Transferrin saturation 21 20 - 50 % [facility] Blood 03/23/2023 10:2 8 PM FREIGHT BROKER 03/23/2023 11:12 PM FREIGHT BROKER us Celio Bonds MD LAB BLOOD ORDERABLES Iris l Result Performing Organization Address [facility] Co de Phone Number [facility] [place] [place] [address] * HIV 1/2 Antibody plus p24 Antigen Blood (03/23/2023 10:28 PM FREIGHT BROKER) HIV 1/2 ab + p24 ag Nonreactive Nonreactive [facility] Comment:Nonreactive for HIV- 1 antigen and HIV-1/HIV-2 antibodies. No laboratory evidence of HIV infection. If acute HIV infection is suspected, consider testing for HIV-1 RNA. Current interpretive data was last revised on 21. Blood 03/23/2023 10:2 8 PM FREIGHT BROKER 03/23/2023 11:12 PM FREIGHT BROKER us Celio Bonds MD LAB MICROBIOLOGY - GENERA L ORDERABLES Final Result Performing Organization Address [facility] Co de Phone Number [facility] [place] [place] [address] * Ferritin (03/23/2023 10:28 PM FREIGHT BROKER) Pathologist [facility] Ferritin 63 30 - 400 ng/mL [facility] Blood 03/23/2023 10:2 8 PM FREIGHT BROKER 03/23/2023 11:12 PM FREIGHT BROKER us Celio Bonds MD LAB BLOOD ORDERABLES Iris l Result Performing Organization Address [facility]/ZIP Co de Phone Number [facility] [place] [place] [address] * Transfuse RBC (03/23/2023 8:41 PM FREIGHT BROKER) Blood us Nannette Soto MD PhD BLOOD TRANSFUSION OR DERABLES Final Result Performing Organization Address City/[facility]/ZIP Co de Phone Number [facility] [place] [address] * Transfuse RBC: 1 Units (03/23/2023 8:41 PM FREIGHT BROKER) Blood Nannette Stephy Soto MD PhD BLOOD TRANSFUSION OR DERABLES Final Result * CTA Head Neck W WO Contrast (03/23/2023 5:52 PM FREIGHT BROKER) Anatomical Region Laterality Modality Head and Neck N/A Computed Tomogra phy 03/23/2023 6:34 PM FREIGHT BROKER Impressions 03/23/2023 7:18 PM FREIGHT BROKER Large ulcerative left oropharyngeal neck mass highly suspicious for malignancy such as squamous cell carcinoma involving the left parapharyngeal, data operations manager, submandibular, and sublingual spaces with osseous involvement of the left mandible. ??Multiple branches of the left external carotid artery including the ascending pharyngeal and lingual branches course through this mass without evidence of active arterial extravasation. Dictated by: Tico Zarco MD The radiology attending physician has personally reviewed this study, and had reviewed and/or edited this written report and agrees with it. Electronically signed by: Todd Gonzales MD Narrative 03/23/2023 7:18 PM FREIGHT BROKER EXAMINATION: 1. Computed tomography angiography (CTA) of the head without and with contrast 2. Computed tomography angiography (CTA) of the neck with contrast HISTORY: Bleeding left oropharyngeal neck mass. TECHNIQUE: CT of the head was performed with images acquired from skull base to vertex without intravenous contrast. Computed tomographic angiography was then obtained from the aortic arch to the vertex following the uneventful administration of intravenous contrast. 3D images were generated on a dedicated workstation. Contrast information: 92 mL Optiray-350 COMPARISON: None Available. FINDINGS: HEAD: There is symmetric periventricular white matter hypoattenuation which is nonspecific and likely represents chronic small vessel disease. There is no acute intracranial hemorrhage. Ventricles are of normal size and morphology. No mass effect or midline shift is present. The leblanc-white matter differentiation is normal. The visualized portions of the orbits are normal. The visualized portions of the mastoids are normal. Moderate left maxillary mucosal sinus thickening. No fractures are identified. NECK: There is a large ill-defined and infiltrative neck mass centered in the left oropharynx extending to the left data operations manager and left submandibular spaces as well as the left sublingual space. ??Mass appears ulcerative along its oropharyngeal surface. ??Mass extends into the left submandibular space and invades into the left mandible with associated osseous erosion, series 7 image 355. ??Mass measures up to 7.2 x 4.3 x 3.3 cm. ??Multiple branches of the left external carotid artery course through this mass, including the ascending pharyngeal and lingual branches. ??No evidence of active arterial extravasation. Mild stepwise anterolisthesis of C3 on C4 and C4 on C5 and C5 on C6. Degenerative disease from C5 to C7. ??Mild spinal canal stenosis secondary discussed by complexes at C5-C6 and C6-C7. ??Up to severe left C4-C5 neuroforaminal stenosis. ??Multilevel facet arthropathy. Limited examination of the superior thorax shows centrilobular emphysema. CTA: The visualized aortic arch appears normal with normal configuration of the great vessels. The innominate artery and both subclavian arteries are normal in course and caliber. Common carotid arteries are normal in course and caliber with mild atherosclerotic calcifications at the bilateral bifurcations without hemodynamically significant stenosis. The course and caliber of the internal carotid arteries in the neck are normal. ??Involvement of the left external carotid artery branches as detailed above. ??No areas of atherosclerotic narrowing or filling defects are identified. The visualized course and caliber of the internal carotid arteries in the head are normal. No areas of atherosclerotic narrowing or filling defects are identified. The [id number] is complete. The anterior and middle cerebral arteries are normal. The vertebral arteries are codominant. The basilar artery is normal. The posterior cerebral arteries are normal. There is no aneurysm or vascular malformation identified. No angiographic spot sign. Procedure Note Todd Gonzales MD - 03/23/2023 EXAMINATION: 1. Computed tomography angiography (CTA) of the head without and with contrast 2. Computed tomography angiography (CTA) of the neck with contrast HISTORY: Bleeding left oropharyngeal neck mass. TECHNIQUE: CT of the head was performed with images acquired from skull base to vertex without intravenous contrast. Computed tomographic angiography was then obtained from the aortic arch to the vertex following the uneventful administration of intravenous contrast. 3D images were generated on a dedicated workstation. Contrast information: 92 mL Optiray-350 COMPARISON: None Available. FINDINGS: HEAD: There is symmetric periventricular white matter hypoattenuation which is nonspecific and likely represents chronic small vessel disease. There is no acute intracranial hemorrhage. Ventricles are of normal size and morphology. No mass effect or midline shift is present. The leblanc-white matter differentiation is normal. The visualized portions of the orbits are normal. The visualized portions of the mastoids are normal. Moderate left maxillary mucosal sinus thickening. No fractures are identified. NECK: There is a large ill-defined and infiltrative neck mass centered in the left oropharynx extending to the left data operations manager and left submandibular spaces as well as the left sublingual space. Mass appears ulcerative along its oropharyngeal surface. Mass extends into the left submandibular space and invades into the left mandible with associated osseous erosion, series 7 image 355. Mass measures up to 7.2 x 4.3 x 3.3 cm. Multiple branches of the left external carotid artery course through this mass, including the ascending pharyngeal and lingual branches. No evidence of active arterial extravasation. Mild stepwise anterolisthesis of C3 on C4 and C4 on C5 and C5 on C6. Degenerative disease from C5 to C7. Mild spinal canal stenosis secondary discussed by complexes at C5-C6 and C6-C7. Up to severe left C4-C5 neuroforaminal stenosis. Multilevel facet arthropathy. Limited examination of the superior thorax shows centrilobular emphysema. CTA: The visualized aortic arch appears normal with normal configuration of the great vessels. The innominate artery and both subclavian arteries are normal in course and caliber. Common carotid arteries are normal in course and caliber with mild atherosclerotic calcifications at the bilateral bifurcations without hemodynamically significant stenosis. The course and caliber of the internal carotid arteries in the neck are normal. Involvement of the left external carotid artery branches as detailed above. No areas of atherosclerotic narrowing or filling defects are identified. The visualized course and caliber of the internal carotid arteries in the head are normal. No areas of atherosclerotic narrowing or filling defects are identified. The [id number] is complete. The anterior and middle cerebral arteries are normal. The vertebral arteries are codominant. The basilar artery is normal. The posterior cerebral arteries are normal. There is no aneurysm or vascular malformation identified. No angiographic spot sign. IMPRESSION: Large ulcerative left oropharyngeal neck mass highly suspicious for malignancy such as squamous cell carcinoma involving the left parapharyngeal, data operations manager, submandibular, and sublingual spaces with osseous involvement of the left mandible. Multiple branches of the left external carotid artery including the ascending pharyngeal and lingual branches course through this mass without evidence of active arterial extravasation. Dictated by: Tico Zarco MD The radiology attending physician has personally reviewed this study, and had reviewed and/or edited this written report and agrees with it. Electronically signed by: Todd Gonzales MD Nannette Soto MD PhD IMG CT PROCEDURES Fi nal Result * XR Chest 1 View (03/23/2023 4:46 PM FREIGHT BROKER) Anatomical Region Laterality Modality Body, Chest N/A Computed Radiogr aphy 03/23/2023 5:02 PM FREIGHT BROKER Impressions 03/23/2023 5:09 PM FREIGHT BROKER No comparison available. Hyperinflated lungs. Mildly elevated left hemidiaphragm with mild left basilar reticular nodular opacities which may represent atelectasis vs bronchiolitis related to aspiration. No pulmonary edema. ??No pleural effusion or pneumothorax. Normal cardiomediastinal silhouette. Dictated by: Yolanda Penn MD The radiology attending physician has personally reviewed this study, and had reviewed and/or edited this written report and agrees with it. Electronically signed by: Marisol oWlf M.D. Narrative 03/23/2023 5:09 PM FREIGHT BROKER EXAMINATION: 1 view chest radiograph Procedure Note Marisol Wolf MD - 03/23/2023 EXAMINATION: 1 view chest radiograph IMPRESSION: No comparison available. Hyperinflated lungs. Mildly elevated left hemidiaphragm with mild left basilar reticular nodular opacities which may represent atelectasis vs bronchiolitis related to aspiration. No pulmonary edema. No pleural effusion or pneumothorax. Normal cardiomediastinal silhouette. Dictated by: Yolanda Penn MD The radiology attending physician has personally reviewed this study, and had reviewed and/or edited this written report and agrees with it. Electronically signed by: Marisol Wolf M.D. Nannette Soto MD PhD IMG XR PROCEDURES Fi nal Result * POCUS Cardiac (03/23/2023 4:27 PM FREIGHT BROKER) Anatomical Region Laterality Modality Other 03/23/2023 4:15 PM FREIGHT BROKER Narrative 03/30/2023 6:05 PM FREIGHT BROKER Performed by: Malena Rey Cardiac: ?Exam type: ??Diagnostic ?Exam Information: ?Indication(s) for Exam: ?Chest Pain ?Exam Occurence: ?Initial ?Findings ?? : ?Pericardial effusion: ??Absent ?Left ventricle: ??Normal EF ?Right ventricle: ??Normal ?IVC: ??Dilated ?Interpretation: ?Normal LVEF Electronically signed by Malena Rey on Thursday, March 23, 2023 at 6:07 PM I have reviewed the images & the resident's interpretation. I agree with the findings. Electronically signed by Cuba Yoder on Thursday, March 30, 2023 at 6:05 PM I have reviewed the images & the resident's interpretation. I agree with the findings. Procedure Note Cuba Yoder MD - 03/30/2023 Performed by: Malena Rey Cardiac: Exam type: Diagnostic Exam Information: Indication(s) for Exam: Chest Pain Exam Occurence: Initial Findings : Pericardial effusion: Absent Left ventricle: Normal EF Right ventricle: Normal IVC: Dilated Interpretation: Normal LVEF Electronically signed by Malena Rey on March 23t 6:07 PM I have reviewed the images & the resident's interpretation. I agree withthe findings. Electronically signed by Cuba Yoder on Thursday, March 30, 2023 at6:05 PM I have reviewed the images & the resident's interpretation. I agree withthe findings. us Cuba Yoder MD POCUS ORDERABLES Final Resul t * (ABNORMAL) Hemoglobin and hematocrit (03/23/2023 4:12 PM FREIGHT BROKER) Hgb 7.6(L) 13.0 - 17.5 g/dL [facility] Hct 22.5(L) 38.9 - 50.3 % [facility] Blood 03/23/2023 4:12 PM FREIGHT BROKER 03/23/2023 4:49 PM FREIGHT BROKER Cammie Chang MD LAB BLOOD ORDERABLES Final Res ult Performing Organization Address [facility]/ZIP Co de Phone Number [facility] Department [place] [address] * Check Sample (03/23/2023 4:12 PM FREIGHT BROKER) Pathologist [facility] ABO Rh A Positive HCLL OTHER 03/23/2023 4:12 PM FREIGHT BROKER 03/23/2023 4:56 PM FREIGHT BROKER Cammie Chang MD LAB BLOOD ORDERABLES Final Res ult Performing Organization Address [facility] Co de Phone Number [facility] [place] [address] * ECG 12-LEAD (03/23/2023 3:38 PM FREIGHT BROKER) Narrative [facility] - 03/23/2023 3:38 PM FREIGHT BROKER Cuba Yoder MD ? 03/23/2023 ??3:40 PM ECG 12 lead Date/Time: 03/23/2023 3:38 PM Performed by: Cuba Yoder MD Authorized by: Winsome Black MD ?? Rate: ??ECG rate: ??73 ??ECG rate assessment: normal ?? Rhythm: ??Rhythm: sinus rhythm ?? QRS: ??QRS axis: ??Left ??QRS intervals: ??Wide Conduction: ??Conduction: abnormal ?Abnormal conduction: non-specific intraventricular conduction delay ?? ST segments: ??ST segments: ??Normal T waves: ??T waves: inverted ?Inverted: ??V4, V5, V6, V3, I and aVL Previous ECG: ??Previous ECG: ??Unavailable Interpretation: ??Interpretation: non-specific ?? Recommended Follow-up: ??Recommended follow up: further workup in the ED ?? Procedure Note Cuba Yoder MD - 03/23/2023 3:38 PM CST Procedure ECG 12 lead Date/Time: 03/23/2023 3:38 PM Performed by: Cuba Yoder MD Authorized by: Winsome Black MD Rate: ECG rate: 73 ECG rate assessment: normal Rhythm: Rhythm: sinus rhythm QRS: QRS axis: Left QRS intervals: Wide Conduction: Conduction: abnormal Abnormal conduction: non-specific intraventricular conduction delay ST segments: ST segments: Normal T waves: T waves: inverted Inverted: V4, V5, V6, V3, I and aVL Previous ECG: Previous ECG: Unavailable Interpretation: Interpretation: non-specific Recommended Follow-up: Recommended follow up: further workup in the ED Cuba Yoder MD 03/23/23 3236 us Winsome Post MD ECG ORDERABLES Final Resu lt [facility] * eGFR (03/23/2023 2:44 PM FREIGHT BROKER) [facility] eGFR >90 >=60 mL/min/1. 73 m2 [facility] Comment: Interpretive Data Reference Interval Normal ?>/= 90 mL/min/1.73m2 Mildly decreased* ? 60 - 89 mL/min/1.73m2 Mildly to moderately decreased ?45 - 59 mL/min/1.73m2 Moderately to severely decreased ??30 - 44 mL/min/1.73m2 Severely decreased ?15 - 29 mL/min/1.73m2 Kidney Failure ?< 15 ??mL/min/1.73m2 *Relative to young adult level Estimated glomerular filtration rate is determined by the 2020 CKD-EPI equation recommended by the National Kidney Foundation (A Unifying Approach to GFR Estimation: Recommendations of the NKF-ASK Task Force on Reassessing the Inclusion of Race in Diagnosing Kidney Disease, JASN 2020). The CKD-EPI equation should not be used for patients with unstable renal function and has not been validated in children and those over 70. Current interpretive data was last reviewed 2020. Blood 03/23/2023 2:44 PM FREIGHT BROKER 03/23/2023 2:55 PM FREIGHT BROKER us Winsome Post MD LAB BLOOD ORDERABLES Final Result [facility] [place] [address] * (ABNORMAL) Differential, auto (03/23/2023 2:44 PM FREIGHT BROKER) Pathologist [facility] Neutrophil abs 4.8 1.5 - 6.5 K/cumm [facility] Imm gran abs 0.0 0.0 - 0.1 K/cumm [facility] Lymphocyte abs 0.6(L) 0.8 - 3.3 K/cumm [facility] Monocyte abs 0.6 0.2 - 0.8 K/cumm [facility] Eosinophil abs 0.0 0.0 - 0.5 K/cumm [facility] Basophil abs 0.0 0.0 - 0.1 K/cumm [facility] Neutrophil pct 79.0 % [facility] Comment: Interpretive Data Percent cell count reference ranges are not reported, since discordance with absolute values may lead to misinterpretation of CBC data. Current Interpretive Data was last revised on 2017. Imm gran pct 0.7 % [facility] Comment: Interpretive Data Percent cell count reference ranges are not reported, since discordance with absolute values may lead to misinterpretation of CBC data. Current Interpretive Data was last revised on 2017. Lymphocyte pct 10.4 % [facility] Comment: Interpretive Data Percent cell count reference ranges are not reported, since discordance with absolute values may lead to misinterpretation of CBC data. Current Interpretive Data was last revised on 2017. Monocyte pct 9.3 % [facility] Comment: Interpretive Data Percent cell count reference ranges are not reported, since discordance with absolute values may lead to misinterpretation of CBC data. Current Interpretive Data was last revised on 2017. Eosinophil pct 0.3 % [facility] Comment: Interpretive Data Percent cell count reference ranges are not reported, since discordance with absolute values may lead to misinterpretation of CBC data. Current Interpretive Data was last revised on 2017. Basophil pct 0.3 % [facility] Comment: Interpretive Data Percent cell count reference ranges are not reported, since discordance with absolute values may lead to misinterpretation of CBC data. Current Interpretive Data was last revised on 2017. Blood 03/23/2023 2:44 PM FREIGHT BROKER 03/23/2023 2:56 PM FREIGHT BROKER us Winsome Post MD LAB BLOOD ORDERABLES Final Result [facility] Department [place] [address] * Troponin I high-sensitivity series (baseline, 2hr, 4hr, 6hr) (03/23/2023 2:44 PM FREIGHT BROKER) Trop I hs 6 <=35 ng/L [facility] Comment: Interpretive Data For further hscTnI resources including the diagnostic algorithm and an aid in interpretation, copy and paste this link: [email or web address] Current Interpretive Data last revised 2019. Blood 03/23/2023 2:44 PM FREIGHT BROKER 03/23/2023 2:55 PM [facility]REIGHT BROKER us Winsome Post MD LAB BLOOD ORDERABLES Final Result Performing Organization Address [facility] Co de Phone Number [facility] [place] [address] * aPTT (03/23/2023 2:44 PM FREIGHT BROKER) aPTT 28 28 - 38 sec [facility] Comment: Interpretive Data Heparin therapeutic range: 66.0 - 100.0 seconds. Range based on correlation with therapeutic heparin activity range of 0.3 - 0.7 Units/mL. Current interpretive data was last revised on 2022. Blood 03/23/2023 2:44 PM FREIGHT BROKER 03/23/2023 2:54 PM [facility]REIGHT BROKER us Winsome Post MD LAB BLOOD ORDERABLES Final Result Performing Organization Address [facility] [place] [address] * Protime-INR (03/23/2023 2:44 PM FREIGHT BROKER) PT 11.8 10.3 - 13.7 sec [facility] INR 1.04 0.90 - 1.20 [facility] Comment: Interpretive data Oral anticoagulant therapeutic ranges: Venous thromboembolism prophylaxis or treatment: 2.0-3.0 CARDIOLOGY Standard range: 2.0-3.0 High-intensity range: 2.5-3.5 Refer to indication-specific guidelines for appropriate target ranges for prosthetic heart valve replacement. Current interpretive data was last revised on 2019. Blood 03/23/2023 2:44 PM FREIGHT BROKER 03/23/2023 2:54 PM [facility] BROKER Winsome Post MD LAB BLOOD ORDERABLES Final Result Performing Organization Address [facility] Co de Phone Number [facility] [place] [address] * Type and screen (03/23/2023 2:44 PM FREIGHT BROKER) Pathologist [facility] Tam, indirect Negative ABO Rh A Positive [facility] Blood 03/23/2023 2:44 PM FREIGHT BROKER 03/23/2023 3:58 PM FREIGHT BROKER Narrative [facility] - 03/23/2023 4:46 PM FREIGHT BROKER Has the patient had Daratumumab or Isatuximab in the past 6 months?->Unknown Winsome Post MD LAB BLOOD BANK TEST ORDERA BLES Final Result [facility] Department [place] [address] * (ABNORMAL) Comprehensive metabolic panel (03/23/2023 2:44 PM FREIGHT BROKER) Pathologist [facility] Sodium 127(L) 135 - 145 mmol/L [facility] Potassium, pl 5.2(H) 3.3 - 4.9 mmol/L [facility] Chloride 94(L) 97 - 110 mmol/L [facility] CO2 28 22 - 32 mmol/L [facility] Anion gap 5 2 - 15 mmol/L [facility] BUN 27(H) 6 - 25 mg/dL [facility] Creatinine 0.48(L) 0.80 - 1.30 mg/dL [facility] Glucose 114 70 - 199 mg/dL [facility] Comment: Interpretive Data Fasting glucose >/= 126 mg/dl is diagnostic for diabetes. ?? Fasting is defined as no caloric intake for at least 8 hours. Fasting glucose between 100 mg/dl to 125 mg/dl is diagnostic of prediabetes. In a patient with classic symptoms of hyperglycemia or hyperglycemic crisis, a random glucose >/= 200 mg/dl is diagnostic for diabetes. In the absence of unequivocal hyperglycemia, results should be confirmed by repeat testing. The classification and Diagnosis of Diabetes Diabetes Care 2021; 46: S19-S40. Current interpretive data was last revised 2022. Calcium 8.5 8.5 - 10.3 mg/dL [facility] Bilirubin, total 0.2 0.1 - 1.2 mg/dL [facility] Protein, pl 6.3(L) 6.5 - 8.5 g/dL [facility] Albumin 3.4(L) 3.5 - 5.0 g/dL [facility] Alk phos 73 40 - 130 Units/L [facility] ALT 19 7 - 55 Units/L [facility] AST 38 10 - 50 Units/L [facility] Blood 03/23/2023 2:44 PM FREIGHT BROKER 03/23/2023 2:55 PM FREIGHT BROKER us Winsome Post MD LAB BLOOD ORDERABLES Final Result Performing Organization Address [facility] Co de Phone Number [facility] Department [place] [address] * (ABNORMAL) CBC with auto differential (03/23/2023 2:44 PM FREIGHT BROKER) Pathologist [facility] WBC 6.0 3.8 - 9.9 K/cumm [facility] Hgb 7.9(L) 13.0 - 17.5 g/dL [facility] Hct 23.3(L) 38.9 - 50.3 % [facility] Plt 247 150 - 400 K/cumm [facility] MPV 8.8(L) 9.1 - 12.3 fL [facility] RBC 2.51(L) 4.30 - 5.80 M/cumm [facility] MCV 92.8 81.3 - 96.4 fL [facility] MCH 31.5 27.1 - 33.3 pg [facility] MCHC 33.9 32.3 - 35.7 g/dL [facility] RDW CV 12.7 11.1 - 14.9 % [facility] RDW SD 43.0 35.7 - 48.1 fL [facility] NRBC abs 0.00 0.00 - 0.01 K/cumm [facility] Blood 03/23/2023 2:44 PM FREIGHT BROKER 03/23/2023 2:56 PM FREIGHT BROKER us Winsome Post MD LAB BLOOD ORDERABLES Final Result Performing Organization Address [facility] de Phone Number [facility] Department [place] [address] * Prepare RBC: 1 Units (03/23/2023 2:33 PM FREIGHT BROKER) Product code [id number] Unit Number [id number] [facility] Product Blood Type APOS [facility] Dispense Status PRESUMED TRANSFUSED [facility] Blood 03/23/2023 2:33 PM FREIGHT BROKER 03/23/2023 2:33 PM FREIGHT BROKER Narrative [facility] - 03/24/2023 12:47 AM FREIGHT BROKER Are special requirements needed? (All products are leukoreduced and CMV- safe)- >No Donor Source->[employer] Date required:-[id number] LRRBC # of [id number] Reasons:-Active bleeding, Hgb <8 g/dL} Winsome Post MD BLOOD BANK PRODUCT ORDERAB LES Final Result Performing Organization Address [facility] Co de Phone Number [facility] Department [place] [address] documented in this encounter Visit Diagnoses Diagnosis Oral mass- Primary Oral mass Anemia, unspecified type Acute blood loss anemia Acute posthemorrhagic anemia 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) Malignant neoplasm of head, face, and neck Cancer cachexia (CMS/HCC) (HCC) Respiratory failure with hypoxia, unspecified chronicity (HCC) Moderate malnutrition (CMS/HCC) 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) Malignant neoplasm of head, face, and neck Cancer cachexia (CMS/HCC) (HCC) documented in this encounter Admitting Diagnoses Diagnosis Oral mass documented in this encounter Administered Medications Inactive Administered Medications - up to 3 most recent administrations Medication Order MAR Action Action Date Dose Rate Site acetaminophen (TYLENOL) tablet 650 mg 650 mg, oral, Every 4 hours PRN, 1st line for pain, fever, fever greater than 38.3 C, Starting on Tue03/23/23 at 2148, Indications: Fever, PainIndications:Fever,Pain Given 03/29/2023 4:49 AM [facility]RE[facility] BROKER 650 mg Given 03/29/2023 12:09 AM [facility] BROKER 650 mg Given 03/28/2023 2:18 PM [facility]REIGHT BROKER 650 mg benzocaine (HURRICAINE) 20 % mouth spray 1 spray 1 spray, mouth/throat, Once, On Tue03/23/23 at 1632, For 1 dose Given by Other 03/23/2023 5:35 PM [facility]REIGHT BROKER 1 spray Carrier Fluids for Secondary Infusion - 0.9% Sodium Chloride 30 mL, intravenous, As needed, For priming tubing and/or flushing, Starting on Tue03/29/23 at 1143, Pre-Procedure (IR), 0-250 ml/hr to flush line after IV infusions when no maintenance IV ordered. Infuse 30mL at the same rate as the secondary infusion. Run as primary IV, not intended for KVO. ceFAZolin (ANCEF) 1 gram/10 mL in sterile water (premix) intravenous, Administer over 3 Minutes, As needed, Starting on Tue03/29/23 at 0829, Intra-Op Given 03/29/2023 8:29 AM [facility] BROKER 2 g cefTRIAXone (ROCEPHIN) 1,000 mg/10 mL in sterile water (premix) 1,000 mg 1,000 mg, intravenous, at 600 mL/hr, Administer over 1 Minutes, Every 24 hours scheduled, First dose on Tue03/30/23 at 1145, For 5 days, Indications: Pneumonia, Aspiration, PEG exchangeIndications:Pneumonia , Aspiration,PEG exchange Given 03/30/2023 1:47 PM [facility] BROKER 1,000 mg 600 mL/hr cephalexin (KEFLEX) capsule 500 mg 500 mg, oral, 2 times daily, First dose on Tue03/29/23 at 1015, For 5 days, Indications: PEG exchangeIndications:PEG exchange Given 03/30/2023 8:02 AM [facility] BROKER 500 mg Given 03/29/2023 9:13 PM [facility]RE[facility] BROKER 500 mg escitalopram (LEXAPRO) 1 mg/mL oral solution 20 mg 20 mg, feeding tube, Daily, First dose on Tue03/30/23 at 1430 Given 03/31/2023 8:16 AM [facility] BROKER 20 mg escitalopram (LEXAPRO) tablet 20 mg 20 mg, oral, Daily, First dose on Tue03/24/23 at 0900, Indications: Anxiety with DepressionIndications:Anxiety with Depression Given 03/30/2023 8:0 5 AM [facility]ER 20 mg Given 03/29/2023 10:10 AM [facility] BROKER 20 mg Given 03/28/2023 11:02 AM [facility] BROKER 20 mg fentaNYL (SUBLIMAZE) preservative free injection intravenous, As needed, Starting on Tue03/28/23 at 0816, Intra-Op Given 03/28/2023 8:16 AM FREIGHT BROKER 25 mcg fentaNYL (SUBLIMAZE) preservative free injection intravenous, As needed, Starting on Tue03/28/23 at 0822, Intra-Op Given 03/28/2023 8:22 AM FREIGHT BROKER 25 mcg fentaNYL (SUBLIMAZE) preservative free injection intravenous, As needed, Starting on Tue03/29/23 at 0823, Intra-Op Given 03/29/2023 8:23 AM FRE[facility] BROKER 50 mcg fentaNYL (SUBLIMAZE) preservative free injection intravenous, As needed, Starting on Tue03/29/23 at 0850, Intra-Op Given 03/29/2023 8:50 AM [facility] BROKER 50 mcg fludeoxyglucose F-18 (FDG) injection 10 millicurie 10 millicurie, intravenous, Once in imaging, radiopharmaceutical, Starting on Tue03/30/23 at 0913, For 1 dose Given 03/30/2023 9:20 AM [facility] BROKER 11.11 millicuries folic acid (FOLVITE) tablet 1 mg 1 mg, oral, Daily, First dose on Tue03/25/23 at 1415, For 7 doses, Each tablet contains 1 mg of folic acid (1.67 mg DFE). Given 03/31/2023 9:42 AM FRE[facility] BROKER 1 mg Given 03/30/2023 7:54 AM FREIGHT BROKER 1 mg Given 03/29/2023 10:11 AM FRE[facility] BROKER 1 mg glucagon injection Administer over 1 Minutes, As needed, Starting on Tue03/28/23 at 0825, Intra-Op Given 03/28/2023 8:25 AM FRE[facility] BROKER 1 mg ioversoL (OPTIRAY 350) injection As needed, Starting on Tue03/28/23 at 0845, Intra-Op Given 03/28/2023 8:45 AM FREIGHT BROKER 40 mL ioversoL (OPTIRAY 350) syringe 100 mL 100 mL, intravenous, Once in imaging, contrast, Starting on Tue03/23/23 at 1732, For 1 dose Contrast Given 03/23/2023 5:52 PM FREIGHT BROKER 92 mL Lactated Ringer's (LR) infusion 30 mL/hr, intravenous, Continuous, Starting on Tue03/25/23 at 1515, Pre-Op Restarted 03/25/2023 3:44 PM FREIGHT BROKER Rate/Dose Verify 03/25/2023 2:49 PM FREIGHT BROKER 30 mL/h r New Bag 03/25/2023 2:47 PM FREIGHT BROKER 30 mL/hr 30 mL/hr Lactated Ringer's (LR) infusion 125 mL/hr, intravenous, Continuous, Starting on Tue03/25/23 at 1715, Phase I New Bag 03/26/2023 5:58 AM FREIGHT BROKER 125 mL/hr 125 mL /hr New Bag 03/25/2023 8:42 PM FREIGHT BROKER 125 mL/hr 125 mL/hr levoFLOXacin (LEVAQUIN) tablet 750 mg 750 mg, feeding tube, Every 24 hours, First dose (after last modification) on Tue04/01/23 at 0300, For 5 doses, Give 2 hrs before or 2 hrs after MVI, antacids, or other products containing sucralfate, magnesium, aluminum, iron, or zinc. May be taken without regard to meals., Indications: Pneumonia, Aspiration, Skin/Soft Tissue InfectionIndications:Pneumonia, Aspiration,Skin/Soft Tissue Infection lidocaine (XYLOCAINE) 10 mg/mL (1 %) injection As needed, Starting on Tue03/28/23 at 0829, Intra-Procedure (IR), Indications: Administration of Local AnesthesiaIndications:Administrat ion of Local Anesthesia Given 03/28/2023 8:29 AM [facility]RE[facility] BROKER 20 mL Abdominal Tissue lidocaine PF (XYLOCAINE) 10 mg/mL (1 %) preservative free injection As needed, Starting on Tue03/29/23 at 0824, Intra-Procedure (IR), Indications: Administration of Local AnesthesiaIndications:Administrat ion of Local Anesthesia Given 03/29/2023 8:24 AM FRE[facility] BROKER 5 mL Abdominal Tissue lisinopriL (PRINIVIL,ZESTRIL) tablet 10 mg 10 mg, oral, Daily, First dose on Tue03/23/23 at 2230, Indications: hypertensionIndications:hypertens ion Given 03/30/2023 8:00 AM [facility]RE[facility] BROKER 10 mg Given 03/29/2023 10:11 AM FRE[facility] BROKER 10 mg Given 03/28/2023 11:02 AM FRE[facility] BROKER 10 mg lisinopriL (PRINIVIL,ZESTRIL) tablet 10 mg 10 mg, feeding tube, Daily, First dose (after last modification) on Tue03/31/23 at 0900, Indications: hypertensionIndications:hypertension Given 03/31/2023 8:17 AM FREIGHT BROKER 10 mg metroNIDAZOLE (FLAGYL) tablet 500 mg 500 mg, feeding tube, 3 times daily, First dose on Tue03/30/23 at 1600, Indications: Pneumonia, AspirationIndications:Pneumonia, Aspiration Given 03/31/2023 8:16 AM [facility]RE[facility] BROKER 500 mg Given 03/30/2023 8:32 PM FREIGHT BROKER 500 mg Given 03/30/2023 2:50 PM FRE[facility] BROKER 500 mg midazolam (VERSED) 1 mg/mL injection As needed, Starting on Tue03/28/23 at 0816, Intra-Op Given 03/28/2023 8:16 AM FREIGHT BROKER 0.5 mg midazolam (VERSED) 1 mg/mL injection As needed, Starting on Tue03/28/23 at 0821, Intra-Op Given 03/28/2023 8:21 AM FRE[facility] BROKER 0.5 mg midazolam (VERSED) 1 mg/mL injection As needed, Starting on Tue03/29/23 at 0822, Intra-Op Given 03/29/2023 8:22 AM FREIGHT BROKER 1 mg midazolam (VERSED) 1 mg/mL injection As needed, Starting on Tue03/29/23 at 0850, Intra-Op Given 03/29/2023 8:50 AM FREIGHT BROKER 1 mg deotrogx-ydx-ykhhflr gluconate (CENTRUM) 0.6 mg iron/mL oral liquid 15 mL 15 mL, feeding tube, Daily, First dose on Tue03/30/23 at 1430 Given 03/31/2023 9:42 AM FREIGHT BROKER 15 mL Given 03/30/2023 2:51 PM FREIGHT BROKER 15 mL multivitamin with folic acid 400 mcg tablet 1 tablet 1 tablet, oral, Daily, First dose on Tue03/25/23 at 1415 Given 03/30/2023 8:05 AM FREIGHT BROKER 1 tablet Given 03/29/2023 10:12 AM FREIGHT BROKER 1 tablet Given 03/28/2023 11:02 AM FREIGHT BROKER 1 tablet nicotine (NICODERM CQ) 14 mg patch 24 hour 1 patch 1 patch, transdermal, Administer over 24 Hours, Daily, First dose on Tue03/23/23 at 2315, Apply a new patch every 24 hours to a clean, dry, hairless site on the upper arm or hip. Rotate site. Medication Applied 03/31/2023 9:42 AM FREIGHT BROKER 1 patch Right Shoulder Medication Applied 03/30/2023 8:05 AM FREIGHT BROKER 1 patch Left Shoulder Medication Applied 03/29/2023 10:13 AM FREIGHT BROKER 1 patch Right Shoulder nortriptyline (PAMELOR) 2 mg/mL oral solution 30 mg 30 mg, feeding tube, Nightly PRN, sleep, Starting on Tue03/30/23 at 1349 ondansetron (ZOFRAN) injection 4 mg 4 mg, intravenous, Administer over 2 Minutes, Every 6 hours PRN, nausea, vomiting, if not tolerating PO, Starting on Tue03/23/23 at 2148, Indications: Nausea and VomitingIndications:Nausea and Vomiting ondansetron ODT (ZOFRAN-ODT) disintegrating tablet 4 mg 4 mg, oral, Every 6 hours PRN, nausea, vomiting, Starting on Tue03/23/23 at 2148, Indications: Nausea and VomitingIndications:Nausea and Vomiting oxyCODONE (ROXICODONE) 1 mg/mL oral solution 5 mg 5 mg, feeding tube, Every 4 hours PRN, 1st line for pain, Starting on Tue03/30/23 at 1348, Indications: PainIndications:Pain Given 03/31/2023 8:16 AM FRE[facility] BROKER 5 mg Given 03/30/2023 8:32 PM FREIGHT BROKER 5 mg Given 03/30/2023 3:14 PM FREIGHT BROKER 5 mg oxyCODONE (ROXICODONE) tablet 5 mg 5 mg, oral, Every 4 hours PRN, 2nd line for pain, Starting on Tue03/23/23 at 2148, Indications: PainIndications:Pain Given 03/30/2023 7:52 AM FRE[facility] BROKER 5 mg Given 03/30/2023 1:25 AM FREIGHT BROKER 5 mg Given 03/29/2023 9:14 PM FREIGHT BROKER 5 mg polyethylene glycol (MIRALAX) packet 17 g 17 g, feeding tube, Daily, First dose (after last modification) on Tabitha 03/31/23 at 0900, Indications: constipationIndications:constipation Given 03/31/2023 9:42 AM FREIGHT BROKER 17 g pyridoxine (VITAMIN B-6) tablet 100 mg 100 mg, oral, Daily, First dose on Tue03/25/23 at 1415, For 5 doses Given 03/28/2023 11:02 AM FREIGHT BROKER 100 mg Given 03/27/2023 9:32 AM FREIGHT BROKER 100 mg Given 03/26/2023 8:43 AM FREIGHT BROKER 100 mg ramelteon (ROZEREM) tablet 8 mg 8 mg, oral, Nightly PRN, sleep, Starting on Tue03/23/23 at 2148, Indications: Sleep-Onset InsomniaIndications:Sleep-Onset Insomnia Given 03/26/2023 7:59 PM FREIGHT BROKER 8 m g Given 03/25/2023 8:42 PM FREIGHT BROKER 8 mg Given 03/23/2023 10:15 PM FREIGHT BROKER 8 mg sodium chloride (OCEAN) 0.65 % nasal spray 1 spray 1 spray, each nostril, Every 2 hours PRN, congestion, rhinitis, Starting on Tue03/30/23 at 1357 sodium chloride 0.9% bolus 1,000 mL 1,000 mL, intravenous, at 500 mL/hr, Administer over 2 Hours, Once, On Tue03/23/23 at 2230, For 1 dose New Bag 03/23/2023 10:17 PM FREIGHT BROKER 1,000 mL 500 mL/hr sodium chloride 0.9% flush 0.5-20 mL 0.5-20 mL, intra-catheter, Every 8 hours scheduled, First dose on Tue03/23/23 at 2230, Flush volume based on line type and size. Given 03/31/2023 5:51 AM FREIGHT BROKER 10 mL Given 03/30/2023 8:32 PM FREIGHT BROKER 10 mL Given 03/30/2023 1:07 PM FREIGHT BROKER 10 mL sodium chloride 0.9% flush 0.5-20 mL 0.5-20 mL, intra-catheter, As needed, line care, Starting on Tue03/23/23 at 2148, Flush volume based on line type and size. Flush before and after each use. Given 03/30/2023 6:08 AM [facility]REIGHT BROKER 10 mL Right Wrist Given 03/29/2023 9:16 PM FREIGHT BROKER 10 mL Ri ght Wrist Given 03/29/2023 4:52 AM FREIGHT BROKER 10 mL R ight Wrist sodium chloride 0.9% flush 0.5-20 mL 0.5-20 mL, intra-catheter, Every 8 hours scheduled, First dose on Tue03/28/23 at 0800, Pre-Procedure (IR), Flush volume based on line type and size. Given 03/29/2023 2:49 PM FREIGHT BROKER 10 mL sodium chloride 0.9% flush 0.5-20 mL 0.5-20 mL, intra-catheter, As needed, line care, Starting on Tue03/28/23 at 0723, Pre-Procedure (IR), Flush volume based on line type and size. Flush before and after each use. Given 03/29/2023 10:15 PM FREIGHT BROKER 10 mL sodium chloride 0.9% flush 0.5-20 mL 0.5-20 mL, intra-catheter, Every 8 hours scheduled, First dose on Tue03/29/23 at 1400, Pre-Procedure (IR), Flush volume based on line type and size. Given 03/31/2023 5:51 AM FREIGHT BROKER 10 mL Given 03/30/2023 8:33 PM FREIGHT BROKER 10 mL Given 03/30/2023 1:07 PM FREIGHT BROKER 10 mL sodium chloride 0.9% flush 0.5-20 mL 0.5-20 mL, intra-catheter, As needed, line care, Starting on Tue03/29/23 at 1143, Pre-Procedure (IR), Flush volume based on line type and size. Flush before and after each use. sodium chloride 0.9% infusion 75 mL/hr, intravenous, Continuous, Starting on Tue03/24/23 at 0815, For 1 day 1 hour New Bag 03/24/2023 9:11 AM FREIGHT BROKER 75 mL/hr 75 mL/hr sodium chloride 0.9% IVPB 0-250 mL 0-250 mL, intravenous, Once, On Tue03/23/23 at 1611, For 1 dose, Prime blood tubing and administer amount needed to clear line (usually 50-100 mL) after transfusion complete. New Bag 03/23/2023 5:55 PM FREIGHT BROKER 100 mL thiamine (VITAMIN B1) tablet 100 mg 100 mg, oral, Daily, First dose on Tue03/25/23 at 1415, For 7 doses Given 03/31/2023 9:42 AM FREIGHT BROKER 100 mg Given 03/30/2023 8:00 AM FREIGHT BROKER 100 mg Given 03/28/2023 11:02 AM FREIGHT BROKER 100 mg documented in this encounter Discontinued Medications Medication Sig Discontinue Reason Start Date End Da te levoFLOXacin (LEVAQUIN) 750 mg tabletIndications:Pneu monia, Aspiration,Skin/Soft Tissue Infection Take 1 tablet (750 mg total) by mouth daily for 4 doses 04/01/2023 03/31/2023 escitalopram (LEXAPRO) 20 mg tabletIndications:Anxi ety with Depression Take 1 tablet (20 mg total) by mouth daily Stop Taking at Discharge 03/31/2023 lisinopriL (PRINIVIL,ZESTRIL) 10 mg tabletIndications:hype rtension Take 1 tablet (10 mg total) by mouth daily Stop Taking at Discharge 03/31/2023 nortriptyline (PAMELOR) 10 mg capsule Take 3 capsules (30 mg total) by mouth nightly as needed for sleep Take 1-3 tablets (10-30mg) as needed nightly for sleep Stop Taking at Discharge 03/31/2023 ondansetron (ZOFRAN) 4 mg tablet Take 1 tablet (4 mg total) by mouth every 8 (eight) hours as needed for nausea or vomiting Stop Taking at Discharge 03/31/2023 documented as of this encounter Historical Medications * This list may reflect changes made after this encounter. lidocaine (LIDODERM) 5 %Indications:low back pain Place 1 patch on the skin daily Remove & discard patch within 12 hours or as directed by MD. ondansetron (ZOFRAN) 4 mg tablet Take 1 tablet (4 mg total) by mouth every 8 (eight) hours as needed for nausea or vomiting 03/31/2023 nortriptyline (PAMELOR) 10 mg capsule Take 3 capsules (30 mg total) by mouth nightly as needed for sleep Take 1-3 tablets (10-30mg) as needed nightly for sleep 03/31/2023 lisinopriL (PRINIVIL,ZESTRI L) 10 mg tabletIndication s:hypertension Take 1 tablet (10 mg total) by mouth daily 03/31/2023 escitalopram (LEXAPRO) 20 mg tabletIndication s:Anxiety with Depression Take 1 tablet (20 mg total) by mouth daily 03/31/2023 added in this encounter Active and Recently Administered Medications Times are shown in [facility]. Scheduled Medication Order 03/29/2023 03/30/2023 03/31/2023 cefTRIAXone (ROCEPHIN) 1,000 mg/10 mL in sterile water (premix) 1,000 mg (CANCELED) 1,000 mg, intravenous, at 600 mL/hr, Administer over 1 Minutes, Every 24 hours scheduled, First dose on Tue03/30/23 at 1145, For 5 days, Indications: Pneumonia, Aspiration, PEG exchange 1347 (Given - Provider: Gretchen Tao RN) cephalexin (KEFLEX) capsule 500 mg (CANCELED) 500 mg, oral, 2 times daily, First dose on Tue03/29/23 at 1015, For 5 days, Indications: PEG exchange 1013 (Hold - Provider: Gretchen Tao RN - Reason: See Provider Order - Comment: see notes)2113 (Given - Provider: Ruchi Fan) 0802 (Given - Provider: Gretchen Tao RN) escitalopram (LEXAPRO) 1 mg/mL oral solution 20 mg 20 mg, feeding tube, Daily, First dose on Tue03/30/23 at 1430 1430 (Due) 0816 (Given - Provider: Daniela Pardo RN) escitalopram (LEXAPRO) tablet 20 mg (CANCELED) 20 mg, oral, Daily, First dose on Tue03/24/23 at 0900, Indications: Anxiety with Depression 1010 (Given - Provider: Gretchen Tao RN - Comment: see notes, per MD aware) 0805 (Given - Provider: Gretchen Tao RN) folic acid (FOLVITE) tablet 1 mg 1 mg, oral, Daily, First dose on Tue03/25/23 at 1415, For 7 doses, Each tablet contains 1 mg of folic acid (1.67 mg DFE). 1011 (Given - Provider: Gretchen Tao RN - Comment: see Md order) 0754 (Given - Provider: Gretchen Tao RN) 0942 (Given - Provider: Daniela Pardo RN) levoFLOXacin (LEVAQUIN) tablet 750 mg 750 mg, feeding tube, Every 24 hours, First dose (after last modification) on Tue04/01/23 at 0300, For 5 doses, Give 2 hrs before or 2 hrs after MVI, antacids, or other products containing sucralfate, magnesium, aluminum, iron, or zinc. May be taken without regard to meals., Indications: Pneumonia, Aspiration, Skin/Soft Tissue Infection lisinopriL (PRINIVIL,ZESTRIL) tablet 10 mg (CANCELED) 10 mg, oral, Daily, First dose on Tue03/23/23 at 2230, Indications: hypertension 1011 (Given - Provider: Gretchen Tao RN - Comment: johana SUNSHINE aware, see notes) 0800 (Given - Provider: Gretchen Tao RN) lisinopriL (PRINIVIL,ZESTRIL) tablet 10 mg 10 mg, feeding tube, Daily, First dose (after last modification) on Tue03/31/23 at 0900, Indications: hypertension 0817 (Given - Provid er: Daniela Pardo RN) metroNIDAZOLE (FLAGYL) tablet 500 mg (CANCELED) 500 mg, feeding tube, 3 times daily, First dose on Tue03/30/23 at 1600, Indications: Pneumonia, Aspiration 1450 (Given - Provider: Gretchen Tao RN)2032 (Given - Provider: Iliana Sampson) 0816 (Given - Provider: Daniela Pardo RN) boyudjsy-rhn-pmfngxn gluconate (CENTRUM) 0.6 mg iron/mL oral liquid 15 mL 15 mL, feeding tube, Daily, First dose on Tue03/30/23 at 1430 1451 (Given - Provider: Gretchen Tao RN) 0942 (Given - Provider: Daniela Pardo RN) multivitamin with folic acid 400 mcg tablet 1 tablet (CANCELED) 1 tablet, oral, Daily, First dose on Tue03/25/23 at 1415 1012 (Given - Provider: Gretchen Tao RN - Comment: johana SUNSHINE aware. see notes) 0805 (Given - Provider: Gretchen Tao RN) nicotine (NICODERM CQ) 14 mg patch 24 hour 1 patch 1 patch, transdermal, Administer over 24 Hours, Daily, First dose on Tue03/23/23 at 2315, Apply a new patch every 24 hours to a clean, dry, hairless site on the upper arm or hip. Rotate site. 1013 (Medication Applied - Provider: Gretchen Tao RN) 0804 (Medication Removed - Provider: Gretchen Tao RN)0805 (Medication Applied - Provider: Gretchen Tao RN) 0942 (Medication Applied - Provider: Daniela Pardo RN)0947 (Canceled Entry - Provider: Daniela Pardo RN)0948 (Medication Removed - Provider: Daniela Pardo RN)1741 (Due: Medication Removed - Provider: Automatic Discharge Provider - Comment: Time automatically adjusted from order being discontinued) polyethylene glycol (MIRALAX) packet 17 g 17 g, feeding tube, Daily, First dose (after last modification) on Tue03/31/23 at 0900, Indications: constipation 0942 (Given - Provid er: Daniela Pardo RN) sodium chloride 0.9% flush 0.5-20 mL 0.5-20 mL, intra-catheter, Every 8 hours scheduled, First dose on Tue03/23/23 at 2230, Flush volume based on line type and size. 0453 (Not Given - Provider: Ruchi Fan - Reason: Other - Comment: duplicate)1449 (Given - Provider: Gretchen Tao RN)2215 (Not Given - Provider: Ruchi Fan - Reason: Other - Comment: duplicate) 0608 (Not Given - Provider: Ruchi Fan - Reason: Other - Comment: duplicate)1307 (Given - Provider: Gretchen Tao RN)2032 (Given - Provider: Iliana Sampson) 0551 (Given - Provider: Iliana Sampson)1304 (Canceled Entry - Provider: Daniela Pardo RN) sodium chloride 0.9% flush 0.5-20 mL (CANCELED) 0.5-20 mL, intra-catheter, Every 8 hours scheduled, First dose on Tue03/28/23 at 0800, Pre-Procedure (IR), Flush volume based on line type and size. 0451 (Not Given - Provider: Ruchi Fan - Reason: Other - Comment: duplicate)1449 (Given - Provider: Gretchen Tao RN)2215 (Not Given - Provider: Ruchi Fan - Reason: Other - Comment: duplicate) 0608 (Not Given - Provider: Ruchi Fan - Reason: Other - Comment: duplicate) sodium chloride 0.9% flush 0.5-20 mL 0.5-20 mL, intra-catheter, Every 8 hours scheduled, First dose on Tue03/29/23 at 1400, Pre-Procedure (IR), Flush volume based on line type and size. 1449 (Given - Provider: Gretchen Tao RN)2113 (Given - Provider: Ruchi Fan) 0608 (Given - Provider: Ruchi Fan)1307 (Given - Provider: Gretchen Tao RN)2033 (Given - Provider: Iliana Sampson) 0551 (Given - Provider: Iliana Sampson)1304 (Canceled Entry - Provider: Daniela Pardo, ANGELITA) thiamine (VITAMIN B1) tablet 100 mg 100 mg, oral, Daily, First dose on Tue03/25/23 at 1415, For 7 doses 1012 (Hold - Provider: Gretchen Tao RN - Reason: See Provider Order - Comment: see notes) 0800 (Given - Provider: Gretchen Tao RN) 0942 (Given - Provider: Daniela Pardo, ANGELITA) PRN Medication Order 03/29/2023 03/30/2023 03/31/2023 acetaminophen (TYLENOL) tablet 650 mg 650 mg, oral, Every 4 hours PRN, 1st line for pain, fever, fever greater than 38.3 C, Starting on Tue03/23/23 at 2148, Indications: Fever, Pain 0009 (Given - Provider: Jose Kuhn)0449 (Given - Provider: Ruchi Fan) Carrier Fluids for Secondary Infusion - 0.9% Sodium Chloride 30 mL, intravenous, As needed, For priming tubing and/or flushing, Starting on Tue03/29/23 at 1143, Pre-Procedure (IR), 0-250 ml/hr to flush line after IV infusions when no maintenance IV ordered. Infuse 30mL at the same rate as the secondary infusion. Run as primary IV, not intended for KVO. ceFAZolin (ANCEF) 1 gram/10 mL in sterile water (premix) (COMPLETED) intravenous, Administer over 3 Minutes, As needed, Starting on Tue03/29/23 at 0829, Intra-Op 0829 (Given - Provider: Malena Roth RN) fentaNYL (SUBLIMAZE) preservative free injection (COMPLETED) intravenous, As needed, Starting on Tue03/29/23 at 0823, Intra-Op 0823 (Given - Provider: Malena Roth RN) fentaNYL (SUBLIMAZE) preservative free injection (COMPLETED) intravenous, As needed, Starting on Tue03/29/23 at 0850, Intra-Op 0850 (Given - Provider: Malena Roth RN) fludeoxyglucose F-18 (FDG) injection 10 millicurie (COMPLETED) 10 millicurie, intravenous, Once in imaging, radiopharmaceutical, Starting on Tue03/30/23 at 0913, For 1 dose 0920 (Given - Provider: Adam Ibanez RT) lidocaine (ASPERCREME) 4 % patch 1 patch 1 patch, transdermal, Administer over 12 Hours, Daily PRN, 1st line for pain, Starting on Tue03/23/23 at 2157, Apply to affected area: back, Indications: low back pain lidocaine PF (XYLOCAINE) 10 mg/mL (1 %) preservative free injection (COMPLETED) As needed, Starting on Tue03/29/23 at 0824, Intra-Procedure (IR), Indications: Administration of Local Anesthesia 0824 (Given - Provider: Alek Talbot MD) midazolam (VERSED) 1 mg/mL injection (COMPLETED) As needed, Starting on Tue03/29/23 at 0822, Intra-Op 0822 (Given - Provider: Malena Roth RN) midazolam (VERSED) 1 mg/mL injection (COMPLETED) As needed, Starting on Tue03/29/23 at 0850, Intra-Op 0850 (Given - Provider: Malena Roth RN) nortriptyline (PAMELOR) 2 mg/mL oral solution 30 mg 30 mg, feeding tube, Nightly PRN, sleep, Starting on Tue03/30/23 at 1349 ondansetron (ZOFRAN) injection 4 mg(Linked Group 1) 4 mg, intravenous, Administer over 2 Minutes, Every 6 hours PRN, nausea, vomiting, if not tolerating PO, Starting on Tue03/23/23 at 2148, Indications: Nausea and Vomiting ondansetron ODT (ZOFRAN-ODT) disintegrating tablet 4 mg(Linked Group 1) 4 mg, oral, Every 6 hours PRN, nausea, vomiting, Starting on Tue03/23/23 at 2148, Indications: Nausea and Vomiting oxyCODONE (ROXICODONE) 1 mg/mL oral solution 5 mg 5 mg, feeding tube, Every 4 hours PRN, 1st line for pain, Starting on Tue03/30/23 at 1348, Indications: Pain 1514 (Given - Provider: Ranjana Katz RN)2032 (Given - Provider: Iliana Sampson) 0816 (Given - Provider: Daniela Pardo RN) oxyCODONE (ROXICODONE) tablet 5 mg (CANCELED) 5 mg, oral, Every 4 hours PRN, 2nd line for pain, Starting on Tue03/23/23 at 2148, Indications: Pain 1204 (Given - Provider: Gretchen Tao RN)1640 (Given - Provider: Gretchen Tao RN)2114 (Given - Provider: Ruchi Fan) 0125 (Given - Provider: Ruchi Fan)0752 (Given - Provider: Gretchen Tao, ANGELITA) ramelteon (ROZEREM) tablet 8 mg 8 mg, oral, Nightly PRN, sleep, Starting on Tue03/23/23 at 2148, Indications: Sleep-Onset Insomnia sodium chloride (OCEAN) 0.65 % nasal spray 1 spray 1 spray, each nostril, Every 2 hours PRN, congestion, rhinitis, Starting on Tue03/30/23 at 1357 sodium chloride 0.9% flush 0.5-20 mL (CANCELED) 0.5-20 mL, intra-catheter, As needed, line care, Starting on Tue03/23/23 at 2148, Flush volume based on line type and size. Flush before and after each use. 0451 (Given - Provider: Ruchi Fan)0452 (Given - Provider: Ruchi Fan)2116 (Given - Provider: Ruchi Fan) 0608 (Given - Provider: Ruchi Fan) sodium chloride 0.9% flush 0.5-20 mL (CANCELED) 0.5-20 mL, intra-catheter, As needed, line care, Starting on Tue03/28/23 at 0723, Pre-Procedure (IR), Flush volume based on line type and size. Flush before and after each use. 221 (Given - Provider: Ruchi Fan) sodium chloride 0.9% flush 0.5-20 mL 0.5-20 mL, intra-catheter, As needed, line care, Starting on Tu03/29/23 at 1143, Pre-Procedure (IR), Flush volume based on line type and size. Flush before and after each use. Linked Groups Order Group 1: ondansetron ODT (ZOFRAN-ODT) disintegrating tablet 4 mgJump to med 4 mg, oral, Every 6 hours PRN, nausea, vomiting, Starting on Tue03/23/23 at 2148, Indications: Nausea and Vomiting Or ondansetron (ZOFRAN) injection 4 mgJump to med 4 mg, intravenous, Administer over 2 Minutes, Every 6 hours PRN, nausea, vomiting, if not tolerating PO, Starting on Tue03/23/23 at 2148, Indications: Nausea and Vomiting documented in this encounter Orders Medications Ordered That Mayank ht Not Have Been Administered Count Last Ordered Date First Ordered Date levoFLOXacin (LEVAQUIN) tablet 750 mg 3 03/30/2023 nortriptyline (PAMELOR) 2 mg /mL oral solution 30 mg 1 03/30/2023 polyethylene glycol (MIRALAX) packet 17 g 2 03/30/2023 03/23/2023 sodium chloride (OCEAN) 0.65 % nasal spray 1 spray 1 03/30/2023 Carrier Fluids for Secondary Infusion - 0.9% Sodium Chloride 4 03/29/2023 03/23/2023 sodium chloride 0.9% flush 0.5-20 mL 2 03/1103/25/2023 sodium chloride 0.9% infusion 2 03/29/2023 03/28/2023 sodium zirconium cyclosilica te (LOKELMA) packet 10 g 1 03/29/2023 HYDROmorphone (DILAUDID) injection 0.2 mg 1 03/25/2023 oxymetazoline (AFRIN) 0.05 % nasal spray 1 03/25/2023 sodium chloride 0.9% irrigation 1 4 Lactated Ringer's (LR) infusion 1 4 lidocaine (ASPERCREME) 4 % patch 1 patch 1 03/23/2023 nortriptyline (PAMELOR) capsule 30 mg 1 ondansetron (ZOFRAN) injection 4 mg 1 03/23 ondansetron ODT (ZOFRAN-ODT) disintegrating tablet 4 mg 1 03/23/2023 Lab Orders Without Results Count Last Ordered D ate First Ordered Date MAGNESIUM 1 03/23/2023 OSMOLALITY, BLOOD 1 03/23/2023 PHOSPHORUS 1 03/23/2023 General Supply Count Last Ordered Date First Or dered Date OXYGEN 1 03/31/2023 Nursing Count Last Ordered Date First Orde red Date SKIN PREP 1 03/29/2023 VOID INJECTION PRESS OPERATOR TO OR 1 03/29/2023 NURSING COMMUNICATION 1 03/23/2023 Consult Count Last Ordered Date First Orde red Date IP CONSULT TO ONCOLOGY 1 03/31/2023 IP CONSULT TO RADIATION ONCOLOGY 1 03/31/19 IP CONSULT TO NUTRITION SERVICES 3 03/29/19 24 03/23/2023 IP CONSULT TO ENT 1 03/23/2023 Isolation Count Last Ordered Date First Orde red Date INITIATE DROPLET ISOLATION 1 03/29/2023 Admission Count Last Ordered Date First Orde red Date ADMIT TO INPATIENT 1 03/23/2023 Discharge Count Last Ordered Date First Orde red Date DISCHARGE PATIENT 1 03/31/2023 CORE MEASURES Count Last Ordered Date First Ord ered Date REASON FOR NO VTE PROPHYLAXI S - HOSPITAL ADMISSION - MEDICATIONS 1 03/23/2023 Case Request Count Last Ordered Date First Orde red Date CASE REQUEST OPERATING ROOM 1 03/24/2023 documented in this encounter Additional Health Concerns Infection Onset Date Last Indicated Resolved Time COVID: Suspected Comment:Completed 03/29/2023 03/29/2023 03/29/2023 11:34 AM FREIGHT BROKER documented as of this encounter Care Teams 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
--- OUTSIDE RECORDS SUMMARY | 2024-02-15 13:40 | XMS_ITS | Encounter Summary ---
Author Organization [facility] Healthcare Address [address] [place] [address] Care Team Providers Care Break Out Man Name Role Phone Jorge Espinosa Primary Care Provider + Jorge Espinosa Primary Care Provider + Edwin Lock MD Unavailable Ayleen Fan [facility] Unavailable +[phone] Encounter Details Date Type Department Care Team (Late st Contact Info) Description 03/29/2023 Orders Only [facility] Radiology [address] [place] [address] Gunjan Burton RN Social History Tobacco Use Types Packs/Day [...] on file Legal Sex Male 11:50 AM DYNAMO TENDER Gender Identity Not on file Sexual Orientation Not on file documented as of this encounter Plan of Treatment Not on file documented as of this encounter Visit Diagnoses Not on filedocumented in this encounter Additional Health Concerns Infection Onset Date Last Indicated Resolved Time COVID: Suspected Comment:Completed 03/29/2023 03/29/2023 03/29/2023 11:34 AM DYNAMO TENDER documented as of this encounter Care Teams Break Out Man Relationship Specialty Start Date End Date Jorge Espinosa PA [address] [place] [id number] PCP - General Internal Medicine 03/21/23 03/30/23 Jorge Espinosa PA [address] [place] [id number] PCP - General Internal Medicine 03/31/23 Edwin Lock MD [address] [place] [id number] Radiation Oncologist Radiation Oncology 03/31/23 Ayleen Fan LCSW [address] [facility] ([facility] [place]) Mailstop [phone] [place] [address] SHOP Outpatient Supervisor Lump Room 04/01/23 04/11/23 documented as of this encounter
--- OUTSIDE RECORDS SUMMARY | 2024-02-15 13:41 | XMS_ITS | Encounter Summary ---
Author Organization [facility] Healthcare Address [address] [place] [address] Care Team Providers Care Project Associate Name Role Phone Jorge Espinosa Primary Care Provider + Reason for Visit * Reason Comments Cyst * Auth/Cert (Routine) Specialty Diagnoses / Procedures Referred By Contac t Referred To Contact Diagnoses Oral mass OROPHARYNGEAL MASS WITH BLEEDING Procedures NA Referral ID Status Reason Start Date Expiration Date Visits Re quested Visits Authorized [id number] 1 1 Encounter Details Date Type Department Care Team (Late st Contact Info) Description 03/25/2023 2:35 PM FITTER/WELDER - 03/25/2023 4:20 PM FITTER/WELDER Surgery [facility] Operating Room [address] [place] [address] Rocio Quiroz MD [facility] [address] [place] [address] LARYNGOSCOPY WITH BIOPSY Surgery Details Date/Time Status Location OR Service Patient Class Case Class Case Type Trauma Case? 03/25/2023 2:35 PM Posted [facility] OR POD 5 218 Otolaryngology Inpatient Time Sensitive - 1 Week Panel 1 Procedure LRB Anes Op Region Wound Class Comments LARYNGOSCOPY WITH BIOPSY N/A General Throat Class II - Clean Contaminated Surgeon Surgeon Role Service Panel Logan Schulte MD Resident - Assisting Otolaryng ology 1 Rocio Quiroz MD Primary Otolaryngology 1 Pb Back Jr., MD Resident - Assisting Otolaryngolo gy 1 documented in this encounter Social History Tobacco [...] on file Legal Sex Male 11:50 AM FITTER/WELDER Gender Identity Not on file Sexual Orientation Not on file documented as of this encounter Last Filed Vital Signs Vital Sign Reading Time Taken Comments Blood Pressure 150/66 03/25/2023 2:40 PM FITTER/WELDER Pulse 63 03/25/2023 2:50 PM FITTER/WELDER Temperature 36.5 ??C (97.7 ??F) 03/25/2023 2:40 PM CS T Respiratory Rate 13 03/25/2023 2:50 PM FITTER/WELDER Oxygen Saturation 100% 03/25/2023 2:50 PM FITTER/WELDER Inhaled Oxygen Concentration - - Weight 43.1 kg (95 lb) 03/23/2023 2:39 PM FITTER/WELDER Height 165.1 cm (5' 5 ) 03/23/2023 2:39 PM FITTER/WELDER Body Mass Index 18.79 03/23/2023 2:39 PM FITTER/WELDER documented in this encounter Discharge Summaries * Erica Eli MD - 03/31/2023 12:33 PM CST Inpatient Discharge Summary BRIEF OVERVIEW Admitting Provider: Rocio Quiroz MD Discharge Provider: Logan Alvarado MD Primary Care Physician at Discharge: Jorge Espinosa PA [phone] Admission Date: 03/23/2023 Discharge Date: 03/31/2023 Admission Location: [facility] Problems/Diagnoses: Principal Problem: Oral mass Active [...] discharged home with plan to f/u with [facility] ENT outpatient. However earlier in the day of the presentation, he had another episode of hemoptysis reporting around 1 pint of blood loss so he came to the ER. Six months ago he moved from [place] to [place], [place] where he lives with his daughter [...] d/c'd home with plan to f/u with [facility] ENT. On 03/23 developed another episode of hemoptysis, reports ~1pint. BPs elevated, normocardic, on room air. Hgb 9.5 (03/21)->7.6 on admission. 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 ENT will schedule follow-up as needed. Pain controlled on PRN APAP, oxy. Hgb remained stable throughout the hospitalization. #Dysphagia #Malnutrition Dysphagia most likely 2/2 oropharyngeal mass. Evaluation by DATA CENTER MANAGER with MBS on 03/24, who recommended full [...] Occasional desaturations requiring 2L NC. Desats to [id number] 03/28-03/29 ON. Required up to 5L NC [...] to fill out physician evaluation form for [place] Medicaid formto qualify for coverage. - You [...] Home Health Primary disciplines requested: Physical Therapy Fdc Secondary disciplines requested: Occupational Therapy Home Health [...] within 48 hours of discharge?: Yes The xvhy-as-vmbk evaluation was performed on: 03/30/2023 DME services provided by: [facility] Discharge Medications: Current Medications TAKE these medications [...] For: high blood pressure Commonly known as: YUEILZESTRIL Notes to patient: Crush and administer this medication through your feeding tube. wsjlmmhq-hss-zhzbkuz gluconate 0.6 mg iron/mL liquid Administer 15 [...] you. Outpatient Follow-Up: Contact Information for Follow-ups [address] [address] Next Steps: Follow up Questions: Please select the performing region: [facility] Please select the performing department: [facility] Is this referral for Breast Health Multi-Disciplinary Clinic?: No # of visits: 1 Does the patient have a diagnosis of a Head and Neck cancer?: Yes Referral Status: Pending Authorization Cosigned by Logan Alvarado MD at 03/31/2023 10:05 PM FITTER/WELDER ER/WELDER ER/WELDER documented in this encounter Discharge Instructions * Discharge Instructions* Erica Eli MD - 03/30/2023 2:12 PM FITTER/WELDER Mr. Garcia, You were admitted to [facility] for coughing up blood and neck mass. [...] to fill out physician evaluation form for [place] Medicaid formto qualify for coverage. - You [...] to get your medications ready. Take care. ER/WELDER ER/WELDER ER/WELDER ER/WELDER ER/WELDER ER/WELDER ER/WELDER ER/WELDER ER/WELDER ER/WELDER ER/WELDER ER/WELDER ER/WELDER ER/WELDER ER/WELDER ER/WELDER * Appointments* Leatha Kirkpatrick RN - 03/31/2023 2:28 PM FITTER/WELDER You have an appointment with your primary care provider, SHAHID Montiel, on 05/02/2023 at 10:00 am. This is the soonest he was able to see you for a hospital follow-up appointment. You will be seeing him at the following location: [facility], [address] [place] [address], [place] [address]. The phone number for the office is [phone]. If you are unable to make this appointment, please call as soon as possible to reschedule to another date. Thank you! Osmolite 1.5 calorie Tube Feedings and home oxygen will be provided by [facility], phone# [phone]. As soon as you leave the hospital, please call [facility] at the number above and let them [...] Care Providers office or your Oncologist's office. ER/WELDER ER/WELDER ER/WELDER ER/WELDER ER/WELDER documented in this encounter Medications at Time [...] tablet (10 mg total) daily 03/31/2023 5 gfmalmzc-lne-efeilq s gluconate (CENTRUM) 0.6 mg iron/mL liquid [...] on the skin daily 30 patch 03/31/2023 tcgwwofi-ehr-hoaupr s gluconate (CENTRUM) 0.6 mg iron/mL liquid Administer 15 mL per feeding tube daily 472 mL 03/30/2023 nortriptyline (PAMELOR) solution 10 mg/5 mL Administer per tube 15 mL (30 mg total) nightly as needed (sleep) 473 mL 03/30/2023 lisinopriL (PRINIVIL,ZESTRIL) 10 mg tabletIndications:h ypertension Administer per tube 1 tablet (10 mg total) daily 03/31/2023 5 escitalopram (LEXAPRO) oral solution 5 mg/5 [...] Destination Comment s Discharge to home, home [facility] senior [facility] CARE NURSING documented in this encounter Progress [...] neck. Six months ago he moved from [place] to [place], [place] where he lives with his daughter [...] Q24H lisinopriL, 10 mg, feeding tube, Daily upgnbhpl-xhg-fivpupg gluconate, 15 mL, feeding tube, Daily nicotine, [...] 22 CREATININE mg/dL 0.55* 0.55* 0.49* 0.51* XXM-LLJ-QJKBHGO mL/min/1.73 m2 >90 >90 >90 >90 CALCIUM [...] of Weight Used for Estimated Protein : Tomball Dietary Orders (From admission, onward) Start Ordered [...] before and after feeding Question Answer Comment ([facility]) Tube Feeding Formula: Osmolite 1.5 Mana Tube [...] clear Upright when eating Question Answer Comment ([facility]) Diet type Full Liquid ([facility]) Diet type Restricted 03/30/23 1107 03/29/23 1300 Oral Nutrition Supplements ([facility]) Select Supplement: Ensure PLUS High Protein - Any Flavor; Quantity (# of cans): 1 can 3 times daily and at bedtime Question Answer Comment ([facility]) Select Supplement: Ensure PLUS High Protein - [...] Buccal Fat: Somewhat sunken appearance Muscle Loss Adventism Region - Temporalis Muscle: Slight depression Clavicle [...] Buccal Fat: Somewhat sunken appearance Muscle Loss [place] - Temporalis Muscle: Slight depression Clavicle [...] goalrate MONITORING/EVALUATION: TF tolerance, Labs, Electrolyte changes ER/WELDER * Roland Villavicencio MD - 03/31/2023 10:00 [...] by Drain (mL) 03/29/23 0700 - 03/29/23 18503/29/23 1900 - 03/30/23 0659 03/30/23 07 - 03/30/23 1859 03/30/231899 - 03/31/23 0659 03/31/23 07 - 03/31/23 1000 Requested LDAs do not have output data documented. Scheduled Continuous As needed escitalopram, 20 mg, feeding tube, Daily folic acid, 1 mg, oral, Daily levoFLOXacin, 750 mg, feeding tube, Daily - 0600 lisinopriL, 10 mg, feeding tube, Daily jnaohwkh-kaa-ulwmoak gluconate, 15 mL, feeding tube, Daily nicotine, [...] 0816 ramelteon, 8 mg, 8 mg at 03/26/231958 sodium chloride, 1 spray sodium chloride 0.9%, 0.5-20 mL Physical Exam: Vitals: 03/30/23 1700 03/30/23 1955 03/31/23 0400 03/31/23 0816 BP: 149/76 154/57 126/60 150/67 BP Location: Left arm Right arm Right arm Patient Position: Lying Lying Lying Pulse: 79 89 94 73 Resp: 20 18 16 16 Temp: 37 ??C (98.6 [...] and read back by: Ranjana Katz RN [phone] on 03/30/2023 15:49:00 by: Alis Harper MT DIRECTEXAM 03/30/2023 Molecular Analysis: Abundant squamous epithelial [...] Head & Neck Surgery QUESTIONS: Weekdays daytime: [facility] Otolaryngology [facility] Consult New consults, after-hours & weekends: [facility] Otolaryngology [facility] Resident Primary/Night Float ENT scheduling line: [phone] (please include in discharge paperwork as needed) Cosigned by Rigoberto Sharma MD at 04/03/2023 9:56 PM FITTER/WELDER ER/WELDER ER/WELDER * Erica Eli MD - 03/31/2023 7:04 AM CST Medicine Daily Progress Note Name: Aleksey Garcia Today: March 31, 2023 : 1960 Age: 63 y.o. male Admit: 03/23/2023 Bed: [id number] Medicine Firm Daily Progress Subjective Mr. Garcia [...] in short term disability and transportation to [facility] for treatment, will discuss these today with DM/SW Scheduled Meds PRN Meds Infusions escitalopram, 20 mg, feeding tube, Daily folic acid, 1 mg, oral, Daily levoFLOXacin, 750 mg, feeding tube, Daily - 0600 lisinopriL, 10 mg, feeding tube, Daily metroNIDAZOLE, 500 mg, feeding tube, TID sosmnnbq-ybj-ridbtja gluconate, 15 mL, feeding tube, Daily nicotine, [...] Intake/Output Summary (Last 24 hours) at 03/31/2023 07 Last data filed at 03/31/2023 0645 Gross per 24 hour Intake 1180 ml Output 125 ml Net 1055 ml Net IO Since Admission: 3,175 mL [03/31/23 07] Active Lines: Peripheral IV Right (Active) Peripheral [...] and read back by: Ranjana Katz RN [phone] on 03/30/2023 15:49:00 by: Alis Harper MT Direct Specimen Exam Molecular Analysis: Abundant squamous [...] only and have not been reviewed by [facility] Radiology. There will be no report generated by a [facility] Radiologist. Assessment/Plan Mr. Garcia is a 63 [...] d/c'd home with plan to f/u with [facility] ENT. On 03/23 developed another episode of hemoptysis, reports ~1pint. BPs elevated, normocardic, on room air. Hgb 9.5 (03/21)->7.6 on admission. 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 Desats to [id number] 03/28-03/29 ON. Required up to 5L NC [...] back from 1ppd). - Nicotine patches - Case Loader Operator on cessation #Hx of Urinary Retention Previously required glasgow in past, since removed. Reports urinating without difficulty - Monitor UOP and I/Os -> low threshold to bladder scan #Mood - Continue home escitalopram 20mg daily DVT ppx: holding iso acute bleeding, ambulate TID Diet: FLD without purees, liquid/crushed meds Code: Full Erica Eli MD Cosigned by Logan Alvarado MD at 03/31/2023 2:39 PM FITTER/WELDER ER/WELDER ER/WELDER ER/WELDER ER/WELDER Associated attestation - Logan Alvarado MD - 03/31/2023 2:39 PM FITTER/WELDER Attending Documentation I have seen and examined [...] at this time. Alek Tomlinson MD/PhD, PGY-3 ER/WELDER * Michelle Hopkins V., OINTMENT MILL TENDER - 03/30/2023 2:48 PM CST 03/30/23 1446 [...] Patient required > 4 LPM oxygen No ER/WELDER * Carli Rogers RRT - 03/30/2023 1:17 PM CST Pulmonary Rehab 03/30/23 1317 Daily Visit Information Comment 2nd attempt for Home O2 Assessment, pt declined, requested to do later. [place] will continue tofollow. ER/WELDER * Carli Rogers RRT - 03/30/2023 9:19 AM CST Pulmonary Rehab 03/30/23 0919 Daily Visit Information Comment Home O2 Assessment not completed at this time d/t pt being off unit. WI will continue to follow. ER/WELDER * Erica Eli MD - 03/30/2023 7:08 AM CST Medicine Daily Progress Note Name: Aleksey Garcia Today: March 30, 2023 : 1960 Age: 63 y.o. male Admit: 03/23/2023 Bed: [id number] Medicine Firm Daily Progress Subjective Mr. Garcia is a 63 y.o. male PMH HTN, active tobacco use, urinary retention, newly found L oropharyngeal mass, admitted 03/23/2023 2:31 PM for hemoptysis, hospital day 7. Interval History: NAEON. VSS -NPO since [place] for PET -CXR bilateral pulm infiltrates R>L, [...] in short term disability and transportation to [facility] for treatment, will discuss these today with [...] was obtained. Prior to beginning the procedure, Dalton Protocol was performed to confirm the patient's [...] wall through the oropharynx. Next, a 24 Turkmen pull type gastrostomy tube was advanced over [...] identified. Impression: Successful placement of a 24 Turkmen pull-through gastrostomy catheter. PLAN: The gastrostomy catheter [...] d/c'd home with plan to f/u with [facility] ENT. On 03/23 developed another episode of hemoptysis, reports ~1pint. BPs elevated, normocardic, on room air. Hgb 9.5 (03/21)->7.6 on admission. 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 - Nicotine patches - Case Loader Operator on cessation #Hx of Urinary Retention Previously required glasgow in past, since removed. Reports urinating without difficulty - Monitor UOP and I/Os -> low threshold to bladder scan #Mood - Continue home escitalopram 20mg daily DVT ppx: holding iso acute bleeding, ambulate TID Diet: FLD without purees, liquid/crushed meds Code: Full Erica Eli MD Cosigned by Logan Alvarado MD at 03/30/2023 2:24 PM FITTER/WELDER ER/WELDER ER/WELDER ER/WELDER Associated attestation - Logan Alvarado MD - 03/30/2023 2:24 PM FITTER/WELDER Attending Documentation I have seen and examined [...] or economic instability and access to healthcare. oLgan Alvarado MD * Alek Tomlinson MD - 03/30/2023 6:59 AM CST Images [...] for: MICROBIOLOGY Output by Drain (mL) 03/28/23 0700 - 03/28/23185803/28/23 190 - 03/29/23 0659 03/29/23 0700 - 03/29/23 1859 03/29/23 1900 - 03/30/23 0659 03/30/23 0700 - 03/30/23 0700 Requested LDAs do not have output data documented. Assessment and Plan: 63 y.o. male with dysphagia status post g tube placement. - Okay to initiate TF and ADAT - Please flush G-tube after TF and crushed Rx administration - Monitor for signs of peritonitis - Continue routine drain site care and dressing changes - IR will continue to follow. Alek Tomlinson MD/PhD Faucets Assembler (PGY-3) ER/WELDER * Ofelia Santos, LANE - 03/29/2023 2:18 PM CST NUTRITION ASSESSMENT [...] neck. Six months ago he moved from [place] to [place], [place] where he lives with his daughter [...] 22 18 CREATININE mg/dL 0.49* 0.51* 0.57* [id number] mL/min/1.73 m2 >90 >90 >90 CALCIUM mg/dL [...] of Weight Used for Estimated Protein : Tomball Dietary Orders (From admission, onward) Start Ordered 03/30/23 0001 NPO Diet Diet effective midnight 03/29/23 0940 03/29/23 1306 Adult Diet Full Liquid, Restricted Diet effective now Comments: NO purees Medications: non-orally (or liquid form, crushed with liquid) Small bites, single sips, double/repeat swallows to clear Upright when eating Question Answer Comment ([facility]) Diet type Full Liquid ([facility]) Diet type Restricted 03/29/23 1305 03/29/23 1300 Oral Nutrition Supplements ([facility]) Select Supplement: Ensure PLUS High Protein - Any Flavor; Quantity (# of cans): 1 can 3 times daily and at bedtime Question Answer Comment ([facility]) Select Supplement: Ensure PLUS High Protein - [...] Buccal Fat: Somewhat sunken appearance Muscle Loss Adventism Region - Temporalis Muscle: Slight depression Clavicle [...] Buccal Fat: Somewhat sunken appearance Muscle Loss Adventism Region - Temporalis Muscle: Slight depression Clavicle [...] goalrate MONITORING/EVALUATION: TF tolerance, Labs, Electrolyte changes ER/WELDER * Rosalba Bailey RRT - 03/29/2023 10:39 AM CST Pulmonary Rehab 03/29/23 1038 Daily Visit Information Comment Home 02 assessment attempted, pt was asleep. This RT made several attempts to wake him withno success. WI to follow ER/WELDER * Erica Eli MD - 03/29/2023 7:01 AM CST Medicine Daily Progress Note Name: Aleksey Garcia Today: March 29, 2023 : 1960 Age: 63 y.o. male Admit: 03/23/2023 Bed: [id number] Medicine Firm Daily Progress Subjective Mr. Garcia [...] in short term disability and transportation to [facility] for treatment, will discuss these today with [...] % Max: 100 % Most Recent: Vitals: 03/29/235 BP: 121/60 Pulse: 78 Resp: 18 Temp: 37.3 ??C (99.1 ??F) SpO2: 91% I/O last 2 completed shifts: In: 30 [I.V.:30] Out: 200 [Urine:200] Intake/Output Summary (Last 24 hours) at 03/29/2023700 Last data filed at 03/29/2023 0452 Gross [...] was obtained. Prior to beginning the procedure, Dalton Protocol was performed to confirm the patient's [...] prepped and draped in sterile fashion. A lithograph designer image of the abdomen was obtained. Glucagon [...] above. Impression: Successful placement of a 16 Turkmen gastrostomy catheter with gastropexy. RECOMMENDATIONS: 1. The [...] d/c'd home with plan to f/u with [facility] ENT. On 03/23 developed another episode of hemoptysis, reports ~1pint. BPs elevated, normocardic, on room air. Hgb 9.5 (03/21)->7.6 on admission. 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 - Nicotine patches - Case Loader Operator on cessation #Hx of Urinary Retention Previously required glasgow in past, since removed. Reports urinating without difficulty - Monitor UOP and I/Os -> low threshold to bladder scan #Mood - Continue home escitalopram 20mg daily DVT ppx: holding iso acute bleeding, ambulate TID Diet: FLD without purees, liquid/crushed meds Code: Full Erica Eli MD Cosigned by Logan Alvarado MD at 03/29/2023 1:39 PM FITTER/WELDER ER/WELDER ER/WELDER Associated attestation - Logan Alvarado MD - 03/29/2023 1:39 PM FITTER/WELDER Attending Documentation I have seen and examined [...] neck. Six months ago he moved from [place] to [place], [place] where he lives with his daughter [...] 18 23 CREATININE mg/dL 0.51* 0.57* 0.52* [id number] mL/min/1.73 m2 >90 >90 >90 CALCIUM mg/dL [...] of Weight Used for Estimated Protein : Tomball Dietary Orders (From admission, onward) Start Ordered 03/28/23 1035 Adult Diet Full Liquid, Restricted Diet effective now Comments: NO purees Medications: non-orally (or liquid form, crushed with liquid) Small bites, single sips, double/repeat swallows to clear Upright when eating Question Answer Comment ([facility]) Diet type Full Liquid ([facility]) Diet type Restricted 03/28/23 1034 03/26/23 1708 [...] electrolytes replete as indicated Question Answer Comment ([facility]) Tube Feeding Formula: Osmolite 1.5 Mana begin at 10 ml/hr and increase by 10 ml q6hrs to goal of 40 ml/hr Tube Feeding Continuous (mL/hr): 40 Duration (hr): 24 Tube Feeding Flush (mL): 30 Flush Frequency: Every 4 hours 03/26/23 1708 03/26/23 1300 Oral Nutrition Supplements ([facility]) Select Supplement: Ensure PLUS High Protein - Any Flavor; Quantity (# of cans): 1 can 3 times daily and at bedtime Question Answer Comment ([facility]) Select Supplement: Ensure PLUS High Protein - [...] Buccal Fat: Somewhat sunken appearance Muscle Loss Adventism Region - Temporalis Muscle: Slight depression Clavicle [...] Buccal Fat: Somewhat sunken appearance Muscle Loss Adventism Region - Temporalis Muscle: Slight depression Clavicle [...] goalrate MONITORING/EVALUATION: TF tolerance, Labs, Electrolyte changes ER/WELDER * Libia Kwan, OT - 03/28/2023 1:27 PM CST Occupational [...] not assigned to this patient, please call [phone]. 03/28/23 0549 General Session Type Treatment OT Received On [...] transfers with mod I 03/24/23 04/21/23 -- ER/WELDER * Roland Villavicencio MD - 03/28/2023 9:03 [...] - 03/27/23 0659 03/27/23 07 - 03/27/23 18503/27/231899 - 03/28/23 0659 03/28/23699 - 03/28/23 09 Requested LDAs do not have output data [...] in place and able to be used. parts counterman enteral access I.e. G tube per primary team - Possible presentation at tumor board - Will plan for outpatient follow up with Head and Neck Surgery, Medical Oncology, and Radiation Oncology Roland Villavicencio MD Otolaryngology - Head & Neck Surgery QUESTIONS: Weekdays daytime: [facility] Otolaryngology [facility] Consult New consults, after-hours & weekends: [facility] Otolaryngology [facility] Resident Primary/Night Float ENT scheduling line: [phone] (please include in discharge paperwork as needed) Cosigned by Rigoberto Sharma MD at 03/28/2023 7:51 PM FITTER/WELDER ER/WELDER ER/WELDER * Erica Eli MD - 03/28/2023 6:57 AM CST Medicine Daily Progress Note Name: Aleksey Garcia Today: March 28, 2023 : 1960 Age: 63 y.o. male Admit: 03/23/2023 Bed: [id number] Medicine Firm Daily Progress Subjective Mr. Garcia [...] in short term disability and transportation to [facility] for treatment, will discuss these today with [...] ml Net IO Since Admission: 1,720 mL [03/28/23 0657] Active Lines: Peripheral IV Right (Active) Peripheral [...] d/c'd home with plan to f/u with [facility] ENT. On 03/23 developed another episode of hemoptysis, reports ~1pint. BPs elevated, normocardic, on room air. Hgb 9.5 (03/21)->7.6 on admission. 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 - Nicotine patches - Case Loader Operator on cessation #Hx of Urinary Retention Previously required glasgow in past, since removed. Reports urinating without difficulty - Monitor UOP and I/Os -> low threshold to bladder scan #Mood - Continue home escitalopram 20mg daily DVT ppx: holding iso acute bleeding, ambulate TID Diet: FLD without purees, liquid/crushed meds Code: Full Erica Eli MD Cosigned by Logan Alvarado MD at 03/28/2023 2:05 PM FITTER/WELDER ER/WELDER ER/WELDER Associated attestation - Logan Alvarado MD - 03/28/2023 2:05 PM FITTER/WELDER Attending Documentation I have seen and examined [...] Age: 63 y.o. male Admit: 03/23/2023 Bed: [id number] Medicine Firm Daily Progress Subjective Mr. Garcia [...] in short term disability and transportation to [facility] for treatment, will discuss these Tuesday when [...] d/c'd home with plan to f/u with [facility]NT. On 03/23 developed another episode of hemoptysis, reports ~1pint. BPs elevated, normocardic, on room air. Hgb 9.5 (03/21)->7.6 on admission. CTA H&N with large ulcerative L oropharyngeal neck mass 7.2x4.3x3.3cm highly suspicious for malignancy such as SCC involving L parapharyngeal, rubber curer, submandibular, sublingual spaces with ossesous involvement of [...] Medical Oncology, and Radiation Oncology - 03/24 DATA CENTER MANAGER MBS, rec FLD without purees, liquid/crushed meds - Agency Sales Representative c/s for malnutrition: TF started, titrating to [...] back from 1ppd). - Nicotine patches - Case Loader Operator on cessation #Hx of Urinary Retention Previously required glasgow in past, since removed. Reports urinating without difficulty - Monitor UOP and I/Os -> low threshold to bladder scan #Mood - Continue home escitalopram 20mg daily DVT ppx: holding iso acute bleeding, ambulate TID Diet: FLD without purees, liquid/crushed meds Code: Full Erica Eli MD Cosigned by Stanislaw Goel MD at 03/27/2023 12:48 PM FITTER/WELDER ER/WELDER ER/WELDER Associated attestation - Stanislaw Goel MD - 03/27/2023 12:48 PM FITTER/WELDER Attending Documentation I have seen and examined [...] to dysphagia from his mass and per DATA CENTER MANAGER can only have liquids P: - Dobhoff [...] note Stanislaw Goel MD * Ofelia Santos, LANE - 03/26/2023 4:59 PM CST NUTRITION ASSESSMENT [...] neck. Six months ago he moved from [place] to [place], [place] where he lives with his daughter [...] 0.9% Recent Labs Lab Units 03/26/23 0952 03/25/23205103/25/2314 03/24/232112 SODIUM mmol/L 131* 132* < > 133* POTASSIUM PLASMA mmol/L 4.6 4.2 < > 4.4 CHLORIDE mmol/L 96* 97 < > 100 CO2 mmol/L 29 29 < > 29 BUN SERUM mg/dL 14 12 < > 16 CREATININE mg/dL 0.52* 0.50* < > 0.50* [id number] mL/min/1.73 m2 >90 >90 < > >90 CALCIUM mg/dL 8.6 8.4* < > 8.5 ALBUMIN g/dL -- 3.1* -- -- PHOSPHORUS PLASMA mg/dL 4.0 3.8 -- 2.9 MAGNESIUM mg/dL 1.8 2.0 -- 2.0 < > = values in this interval not displayed. Recent Labs Lab Units 03/26/23 0952 03/25/23205103/25/2314 03/24/23211203/24/23 0517 03/23/23 1444 GLUCOSE mg/dL 158 146 89 [...] of Weight Used for Estimated Protein : [place] Dietary Orders (From admission, onward) Start Ordered 03/26/231656 Diet, Tube Feeding With Tray Osmolite 1.5 Mana (begin at 10 ml/hr and increase by 10 ml q6hrs to goal of 50 ml/hr); 30; Every 4 hours Diet effective now Comments: Adjust free water flush per hydration status Minimum flush 30 ml q4hrs to keep tube patent Follow aspiration precautions Monitor electrolytes replete as indicated Question Answer Comment ([facility]) Tube Feeding Formula: Osmolite 1.5 Mana begin at 10 ml/hr and increase by 10 ml q6hrs to goal of 50 ml/hr Tube Feeding Flush (mL): 30 Flush Frequency: Every 4 hours 03/26/23165803/26/23 1300 Oral Nutrition Supplements ([facility]) Select Supplement: Ensure PLUS High Protein - Any Flavor; Quantity (# of cans): 1 can 3 times daily and at bedtime Question Answer Comment ([facility]) Select Supplement: Ensure PLUS High Protein - Any Flavor Quantity (# of cans): 1 can 03/26/23 0822 03/25/23 1334 Adult Diet Full Liquid, Restricted Diet effective now Comments: NO purees Medications: non-orally (or liquid form, crushed with liquid) Small bites, single sips, double/repeat swallows to clear Upright when eating Question Answer Comment ([facility]) Diet type Full Liquid ([facility]) Diet type Restricted 03/25/23 1335 Allergies: Reviewed. [...] Buccal Fat: Somewhat sunken appearance Muscle Loss [place] - Temporalis Muscle: Slight depression Clavicle [...] Buccal Fat: Somewhat sunken appearance Muscle Loss [place] - Temporalis Muscle: Slight depression Clavicle [...] goalrate MONITORING/EVALUATION: TF tolerance, Labs, Electrolyte changes ER/WELDER * Yaima Daniel MD - 03/26/2023 1:27 PM CST Medicine Daily Progress Note Name: Aleksey Garcia Today: March 26, 2023 : 1960 Age: 63 y.o. male Admit: 03/23/2023 Bed: [id number] Medicine Firm Daily Progress Subjective Mr. Garcia [...] in short term disability and transportation to [facility] for treatment, will discuss these Tuesday when [...] Objective Vitals: Most Recent : Vitals: 03/26/23 042 BP: 150/60 Pulse: 65 Resp: 16 Temp: 36.5 ??C (97.7 ??F) SpO2: 96% 24hr Min/Max: Temp Min: 36.1 ??C (97 ??F) Max: 37 ??C (98.6 ??F) Pulse Min: 63 Max: 78 BP Min: 150/60 Max: 178/66 Resp Min: 12 Max: 17 SpO2 Min: 92 % Max: 100 % Most Recent: Vitals: 03/26/235 BP: 150/60 Pulse: 65 Resp: 16 Temp: [...] d/c'd home with plan to f/u with [facility]. On 03/23 developed another episode of hemoptysis, reports ~1pint. BPs elevated, normocardic, on room air. Hgb 9.5 (03/21)->7.6 on admission. CTA H&N with large ulcerative L oropharyngeal neck mass 7.2x4.3x3.3cm highly suspicious for malignancy such as SCC involving L parapharyngeal, rubber curer, submandibular, sublingual spaces with ossesous involvement of [...] Medical Oncology, and Radiation Oncology - 03/24 DATA CENTER MANAGER MBS, rec FLD without purees, liquid/crushed meds - Agency Sales Representative c/s for malnutrition: Will f/u TF recs [...] back from 1ppd). - Nicotine patches - Case Loader Operator on cessation #Hx of Urinary Retention Previously required glasgow in past, since removed. Reports urinating without difficulty - Monitor UOP and I/Os -> low threshold to bladder scan #Mood - Resume home escitalopram 20mg daily DVT ppx: holding iso acute bleeding, ambulate TID Diet: FLD without purees, liquid/crushed meds Code: Full Yaima Daniel MD Cosigned by Stanislaw Goel MD at 03/26/2023 4:21 PM FITTER/WELDER ER/WELDER ER/WELDER Associated attestation - Stanislaw Goel MD - 03/26/2023 4:21 PM FITTER/WELDER Attending Documentation I have seen and examined [...] to dysphagia from his mass and per DATA CENTER MANAGER can only have liquids P: - Dobhoff [...] Output by Drain (mL) 03/24/23 07 - 03/24/23185803/24/231899 - 03/25/23 0659 03/25/23 07 - 03/25/23 [...] in place and able to be used. detention enteral access I.e. G tube per primary team - Will plan for outpatient follow up with Head and Neck Surgery, Medical Oncology, and Radiation Oncology Roland Villavicencio MD Otolaryngology - Head & Neck Surgery QUESTIONS: Weekdays daytime: [facility] Otolaryngology [facility] Consult New consults, after-hours & weekends: [facility] Otolaryngology [facility] Resident Primary/Night Float ENT scheduling line: [phone] (please include in discharge paperwork as needed) Cosigned by Rigoberto Sharma MD at 03/28/2023 7:51 PM FITTER/WELDER ER/WELDER ER/WELDER * Roland Villavicencio MD - 03/25/2023 10:25 PM CST Otolaryngology - Head & Neck Surgery Post-Operative Check POC Date, Time: March 25, 2023 10:25 PM Surgeon: Rocio Quiroz MD Surgery: Direct laryngoscopy, oropharyngeal biopsy Subjective Aleksey Garcia is s/p above surgery. No acute [...] Head & Neck Surgery QUESTIONS: Weekdays daytime: [facility] Otolaryngology [facility] Consult New consults, after-hours & weekends: [facility] Otolaryngology [facility] Resident Primary/Night Float ENT scheduling line: [phone] (please include in discharge paperwork as needed) Cosigned by Rigoberto Sharma MD at 03/28/2023 7:51 PM FITTER/WELDER ER/WELDER ER/WELDER * Ofelia Santos, LANE - 03/25/2023 10:01 AM CST NUTRITION ASSESSMENT [...] neck. Six months ago he moved from [place] to [place], [place] where he lives with his daughter [...] chloride 0.9% Recent Labs Lab Units 03/25/23 0603/24/23211203/24/2351603/23/238 03/23/23 1444 0000 SODIUM mmol/L 131* 133* < > -- 127* -- POTASSIUM PLASMA mmol/L 4.0 4.4 < > -- 5.2* -- CHLORIDE mmol/L 99 100 < > -- 94* -- CO2 mmol/L 28 29 < > -- 28 -- BUN SERUM mg/dL 12 16 < > -- 27* -- CREATININE mg/dL 0.49* 0.50* < > -- 0.48* -- ETM-HNT-LZFSMDZ mL/min/1.73 m2 >90 >90 < > -- >90 -- CALCIUM mg/dL 8.3* 8.5 < > -- 8.5 -- ALBUMIN g/dL -- -- -- -- 3.4* -- PHOSPHORUS PLASMA mg/dL -- 2.9 -- 3.8 -- < > MAGNESIUM mg/dL -- 2.0 -- 2.1 -- -- < > = values in this interval not displayed. Recent Labs Lab Units 03/25/23 0603/24/23211203/24/2351603/23/23 1444 GLUCOSE mg/dL 89 102 99 114 [...] 03/24/23 1626 03/24/23 1700 Oral Nutrition Supplements ([facility]) Select Supplement: Ensure - Butter Pecan, Ensure - Meagan, Ensure - Straw, Ensure - Van All Meals Question Answer Comment ([facility]) Select Supplement: Ensure - Butter Pecan ([facility]) Select Supplement: Ensure - Meagan ([facility]) Select Supplement: Ensure - Straw ([facility]) Select Supplement: Ensure - Van 03/24/23 1626 [...] Buccal Fat: Somewhat sunken appearance Muscle Loss [place] - Temporalis Muscle: Slight depression Clavicle [...] needs by next assessment MONITORING/EVALUATION: Diet advancement ER/WELDER ER/WELDER ER/WELDER * Roland Villavicencio MD - 03/25/2023 10:01 [...] 1859 03/23/23 1900 - 03/24/23 0659 03/24/23 0700 - 03/24/23 1859 03/24/23 1900 - 03/25/23 [...] place NG tube in OR - NPO, mIVF Roland Villavicencio MD Otolaryngology - Head & Neck Surgery QUESTIONS: Weekdays daytime: [facility] Otolaryngology [facility] Consult New consults, after-hours & weekends: [facility] Otolaryngology [facility] Resident Primary/Night Float ENT scheduling line: [phone] (please include in discharge paperwork as needed) Cosigned by Amy Flores MD at 04/05/2023 7:26 AM FITTER/WELDER ER/WELDER ER/WELDER * Imelda Tobias - 03/25/2023 8:08 AM [...] POC. Prior Function Prior Function Level of [place]: Independent functional transfers, Independent with ambulation Lives With: Family (Adult niece and her family. Between his Son in law's brother and his ex-sister in law, the patient states he would have photographer motion picture assistance if he needed it.) Fall within [...] Mercedes Calabrese, PT at 03/25/2023 2:32 PM FITTER/WELDER ER/WELDER ER/WELDER * Erica Eli MD - 03/25/2023 6:57 AM CST Medicine Daily Progress Note Name: Aleksey Garcia Today: March 25, 2023 : 1960 Age: 63 y.o. male Admit: 03/23/2023 Bed: [id number] Medicine Firm Daily Progress Subjective Mr. Garcia is a 63 y.o. male PMH HTN, active tobacco use, urinary retention, newly found L oropharyngeal mass, admitted 03/23/2023 2:31 PM for hemoptysis, hospital day 2. Interval History: NAEON. NPO @ [facility] for possible OR for biopsy and NG [...] % Max: 100 % Most Recent: Vitals: 03/25/23619 BP: 154/66 Pulse: 68 Resp: 18 Temp: 36.6 ??C (97.9 ??F) SpO2: 96% No intake/output data recorded. No intake or output data in the 24 hours ending 03/25/23656 Net IO Since Admission: No IO data has been entered for this period [03/25/23 06] Active Lines: Peripheral IV 03/23/23 20 G [...] d/c'd home with plan to f/u with [facility]. On 03/23 developed another episode of hemoptysis, reports ~1pint. BPs elevated, normocardic, on room air. Hgb 9.5 (03/21)->7.6 on admission. CTA H&N with large ulcerative L oropharyngeal neck mass 7.2x4.3x3.3cm highly suspicious for malignancy such as SCC involving L parapharyngeal, rubber curer, submandibular, sublingual spaces with ossesous involvement of L mandible; no e/o active extravasation. CXR with L he midiaphragm, mild L basilar reticular nodular opacities c/f atelectasis vs bronchiolitis related toaspiration. - Hgb>7, T&S, coags wnl - ENT following - likely biopsy and NGT placement 03/25 - Pending biopsy -> Onc c/s - 03/24 DATA CENTER MANAGER MBS, rec FLD without purees, liquid/crushed meds - Agency Sales Representative c/s for malnutrition - s/p 1L NS. [...] back from 1ppd). - Nicotine patches - Case Loader Operator on cessation #Hx of Urinary Retention Previously [...] Stanislaw Goel MD at 03/25/2023 5:30 PM FITTER/WELDER ER/WELDER ER/WELDER Associated attestation - Stanislaw Goel MD - 03/25/2023 5:30 PM FITTER/WELDER Attending Documentation I have seen and examined [...] to dysphagia from his mass and per DATA CENTER MANAGER can only have liquids P: - ENT [...] OT Recommendation and Plan Recommendation/Plan OT Recommendation: [facility]dc Facility Patient at high risk for: Falls, [...] feeling) Prior Function Prior Function Level of [place]: Independent with ADLs, Independent functional transfers, Independent [...] Location: Head (headache) Pain Interventions: RN Notified (RN Ranjana) Cognition Cognition Arousal/Alertness: Alert, Appropriate responses to [...] name and address after me: Alek Tolentino [address] [place] [address] Without looking at the clock, tell me [...] transfers with mod I 03/24/23 04/21/23 -- ER/WELDER * Erica Eli MD - 03/24/2023 7:43 AM CST Medicine Daily Progress Note Name: Aleksey Garcia Today: March 24, 2023 : 1960 Age: 63 y.o. male Admit: 03/23/2023 Bed: [id number] Medicine Firm Daily Progress Subjective Mr. Garcia [...] PM Result Value Ref Range Product code C1398I65 Unit Number [id number] Product Blood Type APOS Dispense Status PRESUMED [...] the left oropharynx extending to the left rubber curer and left submandibular spaces as well as [...] narrowing or filling defects are identified. The viccmy-vd-Zkfaxk is complete. The anterior and middle cerebral arteries are normal. The vertebral arteries are codominant. The basilar artery is normal. The posterior cerebral arteries are normal. There is no aneurysm or vascular malformation identified. No angiographic spot sign. Impression: Large ulcerative left oropharyngeal neck mass highly suspicious for malignancy such as squamous cell carcinoma involving the left parapharyngeal, rubber curer, submandibular, and sublingual spaces with osseous involvement [...] d/c'd home with plan to f/u with [facility]. On 03/23 developed another episode of hemoptysis, reports ~1pint. BPs elevated, normocardic, on room air. Hgb 9.5 (03/21)->7.6 on admission. CTA H&N with large ulcerative L oropharyngeal neck mass 7.2x4.3x3.3cm highly suspicious for malignancy such as SCC involving L parapharyngeal, rubber curer, submandibular, sublingual spaces with ossesous involvement of L mandible; no e/o active extravasation. CXR with L he midiaphragm, mild L basilar reticular nodular opacities c/f atelectasis vs bronchiolitis related toaspiration. - ENT following - no acute intervention, f/u biopsy plan - Hgb>7, T&S, coags wnl - If actively bleeding, call ENT vs IR for embolization - Pending biopsy -> Onc c/s - NPO, DATA CENTER MANAGER c/s for dysphagia - MBS on 03/25 - Agency Sales Representative c/s for malnutrition - s/p 1L NS. [...] back from 1ppd). - Nicotine patches - Case Loader Operator on cessation #Hx of Urinary Retention Previously required glasgow in past, since removed. Reports urinating without difficulty - Monitor UOP and I/Os -> low threshold to bladder scan #Mood - Continue home escitalopram 20mg daily DVT ppx: holding iso acute bleeding, ambulate TID Diet: NPO Code: Full Erica Eli MD Cosigned by Stanislaw Goel MD at 03/24/2023 1:28 PM FITTER/WELDER ER/WELDER ER/WELDER Associated attestation - Stanislaw Goel MD - 03/24/2023 1:28 PM FITTER/WELDER Attending Documentation I have seen and examined [...] his mass P: - nutrition consult - DATA CENTER MANAGER , question if he might benefit from [...] weekend. He presented to an OSH ([facility]) on 03/21/23 where they found a large L oropharyngeal mass on CT neck. He was discharged home with plan to f/u with [facility] ENT outpatient. However earlier today he had another episode of hemoptysis reporting around 1 pint of blood loss so he came to the ER. Six months ago he moved from [place] to [place], [place] where he lives with his daughter [...] malignancy such as SCC involving L parapharyngeal, rubber curer, submandibular, sublingual spaces w/ ossesous invovlment of [...] Max: 100 % Most Recent Vitals: Vitals: 03/23/232119 BP: (!) 172/76 Pulse: 72 Resp: 18 [...] PM Result Value Ref Range Product code [id number] Unit Number [id number] Product Blood Type APOS Dispense Status ISSUED [...] the left oropharynx extending to the left rubber curer and left submandibular spaces as well as [...] narrowing or filling defects are identified. The lmopae-ix-Jcormi is complete. The anterior and middle cerebral arteries are normal. The vertebral arteries are codominant. The basilar artery is normal. The posterior cerebral arteries are normal. There is no aneurysm or vascular malformation identified. No angiographic spot sign. Impression: Large ulcerative left oropharyngeal neck mass highly suspicious for malignancy such as squamous cell carcinoma involving the left parapharyngeal, rubber curer, submandibular, and sublingual spaces with osseous involvement [...] d/c'd home with plan to f/u with [facility]NT. On 03/23 developed another episode of hemoptysis, reports ~1pint. BPs elevated, normocardic, on room air. Hgb 9.5 (03/21)->7.6 on admission. CTA H&N with large ulcerative L oropharyngeal neck mass 7.2x4.3x3.3cm highly suspicious for malignancy such as SCC involving L parapharyngeal, rubber curer, submandibular, sublingual spaces with ossesous involvement of [...] biopsy -> Onc c/s - NPO at [place], DATA CENTER MANAGER c/s for dysphagia - chute worker c/s for malnutrition - 1L NS - [...] back from 1ppd). - Nicotine patches - automobile club travel counselor on cessation #Hx of Urinary Retention Previously required [place] in past, since removed. - monitor UOP and I/Os -> low threshold to bladder scan #Mood - continue home escitalopram 20mg daily DVT ppx: holding iso acute bleeding, SCDs Diet: liquids, NPO at [place] Code: Full Selina Law MD PGY-3, Internal Medicine Cosigned by Stanislaw Goel MD at 03/24/2023 1:20 PM FITTER/WELDER ER/WELDER ER/WELDER ER/WELDER ER/WELDER ER/WELDER Associated attestation - Stanislaw Goel MD - 03/24/2023 1:20 PM FITTER/WELDER ATTENDING DOCUMENTATION I have seen and examined the patient on 03/24/2023. I agree with the findings and plan of care as documented in the resident's/fellow's note. and as discussed with the resident/fellow. Stanislaw Goel MD documented in this encounter Procedure Notes * Nadia StephensonShailesh - 03/24/2023 1:36 PM CSTAssociated Order(s): DATA CENTER MANAGER EVALUATE AND TREAT VIDEOFLUOROSCOPIC SWALLOW STUDY Speech-Language [...] weekend. He presented to an OSH ([facility]) on 03/21/23 where they found a large L oropharyngeal mass on CT neck. He was discharged home with plan to f/u with [facility] ENT outpatient. However earlier today he had another episode of hemoptysis reporting around 1 pint of blood loss so he came to the ER. 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 Plan DATA CENTER MANAGER Frequency of Services during current admission: Discharge from this Service DATA CENTER MANAGER Recommendation (Add'l Services): No further DATA CENTER MANAGER indicated Given nature of dysphagia, DATA CENTER MANAGER not indicated at this time. Notified MD to re- refer as needed throughout treatment course. Next Visit Plan: No further ST warranted Additional Referrals: ENT Discharge Summary Statement If this is the last swallow therapy visit, this serves as the discharge summary. Cosigned by Maida Carvajal SLP at 03/24/2023 4:06 PM FITTER/WELDER ER/WELDER ER/WELDER * Bernadette Barroso SLP - 03/24/2023 9:42 [...] weekend. He presented to an OSH ([facility]) on 03/21/23 where they found a large L oropharyngeal mass on CT neck. He was discharged home with plan to f/u with [facility] ENT outpatient. However earlier today he had another episode of hemoptysis reporting around 1 pint of blood loss so he came to the ER. Six months ago he moved from [place] to [place], [place] where he lives with his daughter [...] squamous cell carcinoma involving the left parapharyngeal, rubber curer, submandibular, and sublingual spaces with osseous involvement [...] 03/24/23 General Observations: Swallow evaluation completed on 5200. Pt awake, in bed upon DATA CENTER MANAGER arrival in room. No family/visitors present. Pt [...] Interpretation: MBS warranted despite MASA score. Plan DATA CENTER MANAGER Frequency of Services during current admission: (pending MBS) DATA CENTER MANAGER Recommendation (Add'l Services): (pending MBS) Further Assessment/Follow up Indicated: Recommendations: Follow-up videofluoroscopic swallowing study Next Visit Plan:instrumental evaluation Additional Referrals: none Please reference care plan for treatment goals, if indicated. Discharge Summary Statement If this is the last swallow therapy visit, this serves as the discharge summary. ER/WELDER documented in this encounter Consult Notes * Td Arndt MD - 03/31/2023 4:50 PM CSTAssociated Order(s): IP CONSULT TO RADIATION ONCOLOGY Patient Name: Aleksey Garcia Date of : 1960 Radiation Oncologist: Edwin Lock MD Medical Oncologist: No care steam tunnel feeder to display Surgeon: No care steam tunnel feeder to display Referring Physician: No care steam tunnel feeder to display Date of Service: 03/31/23 RADIATION [...] in the left oropharynx involving the left rubber curer and submandibular spaces with invasioninto the left [...] Yaima Daniel MD 10mg at 03/31/23 0817 puurvucy-gnf-qglfiti gluconate (CENTRUM) 0.6 mg iron/mL oral liquid [...] flush 0.5-20 mL 0.5-20 mL intra-catheter Q8H TJ Roland Villavicencio MD 10 mL at 03/31/23 0551 sodium chloride 0.9% flush 0.5-20 mL 0.5-20 mL intra-catheter Q8H TJ Alek Tomlinson MD 10 mL at 03/31/23 [...] to sign consent for treatment at our [place] facility, which is closer to his home [...] by inpatient team. Td Arndt MD, MS Mobile Product Manager Chief Resident Department of Radiation Oncology Rad Onc Contact Info Tuesday-Tuesday 7am-5pm If you know the resident's name on the appropriate radiation oncology team (e.g., signature on the plan of care or consult note), please use [email or web address] to page/call the resident directly. Alternatively, please call the radiation oncology front end architect at [phone]. Tuesday-Tuesday 5pm-7am or on weekends Please reach the on-call radiation oncology service through the [facility] fertilizing machine operator line ([phone]). Cosigned by Edwin Lock MD at 04/01/2023 2:02 PM FITTER/WELDER ER/WELDER ER/WELDER Associated attestation - Edwin Lock MD - 04/01/2023 2:02 PM FITTER/WELDER I have seen and examined the patient on 03/31/2023. I agree with the findings and plan of care as documented in the resident's/fellow's note.. * Elena Krause MD - 03/31/2023 12:50 PM CSTAssociated [...] of mandible (as well as left parapharyngeal, rubber curer, submandibular, and sublingual space). 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 PET scan with probable metastatic ipsilateral Level IIa LN and suspicious contralateral supraclavicular LN. No distant disease. Discussedat tumor board with recommendation for chemoradiation. -We will arrange outpatient follow-up for patient at [facility] with Head and neck oncologist -Recommend consulting [...] mass (7.2x4.3x3.3 cm), involving the left parapharyngeal, rubber curer, submandibular and sublingual spaces with osseous involvement [...] carcinoma. 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 He had a PET/CT on 03/30 that showed the hypermetabolic ulcerative left oropharyngeal mass with extension superiorly into the left nasopharynx, into the left rubber curer, submandibular, and sublingual spaces, left tonsillar fossa, [...] tube 1 tablet (10 mg total) daily Yaima Daniel MD kxknkjfr-bkn-tlyvhcs gluconate (CENTRUM) 0.6 mg iron/mL liquid Administer [...] hours as needed for nausea or vomiting ProviderNieves MD ondansetron ODT (ZOFRAN-ODT) 4 mg disintegrating tablet [...] Skin: Warm, dry, no rashes. Neurologic: AAOx3, lag screwer grossly intact, no focal neurological deficit Psychosocial: [...] agree with the findings. Electronically signed by Robson Yoder Thursday, March 30, 2023 at 6:05 PM I have reviewed the images & the resident's interpretation. I agree with the findings. PET/CT FDG Skull to Thigh Result Date: 03/30/2023 Narrative: EXAMINATION: TUMOR FDG-PET/CT IMAGING DATE OF STUDY: 03/30/2023 SCANNER: [facility] mCT RADIOPHARMACEUTICAL: 11.1 mCi F-18 Fluorodeoxyglucose (FDG) i.v. [...] obtained. The study was interpreted on the [employer] workstation. The mean liver SUV (reported for vice president quality assurance purposes) is 1.5. The total scanned area [...] into the left nasopharynx, into the left rubber curer, submandibular, and sublingual spaces, lefttonsillar fossa, and [...] moderate associated FDG avidity, likely representing aspiration pneumonia.Moderately FDG avid mediastinal and bilateral hilar lymph [...] with involvement of the left nasopharynx, left rubber curer, submandibular, and sublingual spaces,left tonsillar fossa, left [...] was obtained. Prior to beginning the procedure, Dalton Protocol was performed to confirm the patient's [...] wall through the oropharynx. Next, a 24 Turkmen pull type gastrostomy tube was advanced over [...] identified. Impression: Successful placement of a 24 Turkmen pull-through gastrostomy catheter. PLAN: The gastrostomy catheter [...] consent was obtained. Prior tobeginning the procedure, Dalton Protocol was performed to confirm the patient's [...] prepped and draped in sterile fashion. A lithograph designer image of the abdomen was obtained. Glucagon [...] above. Impression: Successful placement of a 16 Turkmen gastrostomy catheter with gastropexy. RECOMMENDATIONS: 1. The [...] the left oropharynx extending to the left rubber curer and left submandibular spaces as well as [...] narrowing or filling defects are identified. The kaizqq-xc-Reakii is complete. The anterior and middle cerebral arteries are normal. The vertebral arteries are codominant. The basilar artery is normal. The posterior cerebral arteries are normal. There is no aneurysm or vascular malformation identified. No angiographic spot sign. 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 ECG 12 lead Result Date: 03/23/2023 Narrative: Cuba Yoder MD 03/23/2023 3:40 PM ECG 12 lead Date/Time: 03/23/2023 3:38 PM Performed by: Cuba Yoder MD Authorized by: Winsome Black MD Rate: ECG rate: 73 ECG rate assessment: normal Rhythm: Rhythm: sinus rhythm QRS: QRS axis: Left QRS intervals: Wide Conduction: Conduction: abnormal Abnormal conduction: non-specific intraventricular conduction delay ST segments: STsegments: Normal T waves: T waves: inverted Inverted: V4, V5, V6, V3, I and aVL Previous ECG: Previous ECG: Unavailable Interpretation: Interpretation: non-specific Recommended Follow-up: Recommendedfollow up: further workup in the ED Assessment and Plan is at the top of the note. Cosigned by Radha Graves MD PhD at 03/31/2023 6:09 PM FITTER/WELDER ER/WELDER ER/WELDER Associated attestation - Radha Graves MD PhD - 03/31/2023 6:09 PM FITTER/WELDER I have seen and examined the patient [...] left oropharyngeal mass. He initially presented to [facility] ED this past Tuesday 03/[address] for oral bleeding where CT neck demonstrated large left oropharyngeal mass along the base of tongue, floor of mo uth, GTS, and lingual mandible. He was discharged home with plan for follow up with [facility] ENT. Earlier today, he had another episode of hemoptysis, approximately one pint. He re-presented to [facility] EDand Hgb had dropped from 9.5 on 03/21 to 7.0 today. Patient has had progressive [...] has been maintaining his weight for the couple of months on protein shakes. He has a history of tonsillectomy as a child, no other H&N surgeries. Patient denies SOB, stridor, voice changes, aspiration, prior H&N radiation. Current smoker, 30 pack-year history. No alcohol. Patient (home) Insurance: Payor: [employer] PLAN / Plan: [employer] PLAN / Product Type: MEDICAID RISK OTHER [...] questions or concerns. Hiren Blackwell MD Otolaryngology [phone] For Questions during Business hours: [employer] secure chat or phone call: GREGG>Otolaryngology> [facility] Existing Consults After Hours: AMICAROL>Otolaryngology> [facility] Resident Primary (New Consults) Clinic Phone number for follow ups: [phone] Cosigned by Amy Flores MD at 03/24/2023 5:34 PM FITTER/WELDER ER/WELDER ER/WELDER Associated attestation - Amy Flores MD - 03/24/2023 5:34 PM FITTER/WELDER I have seen and examined the patient [...] and g-tube dsgs. Pt received meds from [facility] and an oxygen tank from [facility] [place]. ER/WELDER * Gretchen Tao RN - 03/30/2023 11:47 AM CST Notified MD and PFT who requested for the patient to come down to have testing done, of an update of the patient being titrated down a 0.5 liter to 2.5 liters per nasal cannula and is satting appropriately at 95%. ER/WELDER * Gretchen Tao RN - 03/30/2023 7:29 AM CST Received message from MD about after the patient is cleared from PETNHAN, g tube formula and diet will be ordered. ER/WELDER * Gretchen Tao RN - 03/29/2023 10:38 [...] is removed, peg tube is in place. ER/WELDER * Ruchi Fan - 03/29/2023 6:36 AM CST Called daughter to inform her of patients condition and g tube reinsertion today. She wants the morning nurse to call when dad is finished with procedure. Will pass it on in morning hand off ER/WELDER * Ruchi Fan - 03/29/2023 1:54 AM [...] to monitor for the remainder of shift. ER/WELDER documented in this encounter ED Notes * [...] 03/23/23 1441 03/23/23 1439 03/23/23 1439 03/23/23 14303/23/23 143 36.1 ??C (96.9 ??F) 73 18 [...] of Care ED Course as of 03/23/23 9394 Time: 03/23 2573 Comment: Patient seen and examined at bedside by me. I accepted the patient in transfer from [facility] due to bleeding oropharyngeal mass. As [...] series. By: Winsome Black MD Time: 03/23 1047 Comment: CTA head and neck pending; will wait for this to result prior to rolling upstairs By: Winsome Black MD Time: 03/23 5325 Comment: Attempted to sign out this patient to the ICU however they would like a note from ENT stating that patient would benefit from ICU level care as opposed to floor By: Winsome Black MD Time: 03/23 160 Comment: Pending ENT call back By: Winsome Black MD Time: 03/23 1610 Comment: Pt diaphoretic, SBP to 90s, will transfuse 1u pRBCs now By: Nannette Lam MD Time: 03/23 1614 Comment: Getting CXR and EKG By: Nannette Lam MD Time: 03/23 1626 Comment: Pending ENT recs for possible bx. [...] squamous cell carcinoma involving the left parapharyngeal, rubber curer, submandibular, and sublingual spaces with osseous involvement of the left mandible. Multiple branches of the left external carotid artery including the ascending pharyngeal and lingual branches course through this mass without evidence of active arterial extravasation. By: Nannette Lam MD Oral mass Anemia, unspecified type Emelyn Solares MD Resident 03/23/23 9731 Cosigned by Alessandra Licea DO at 03/29/2023 12:06 AM FITTER/WELDER ER/WELDER ER/WELDER Associated attestation - Alessandra Licea DO - 03/29/2023 12:06 AM FITTER/WELDER I have seen and examined the patient [...] RN - 03/23/2023 2:31 PM CST Bed: [facility] Expected date: 03/23/23 Expected time: 12:59 PM Means of arrival: Ambulance Comments: EMS Noemy Loera RN 03/23/23 1431 ER/WELDER * Catalina Garcia RN - 03/23/2023 2:29 PM CST Coming from [facility] for a mass in the mouth [...] was from the mass. Pt is A&Ox4 ER/WELDER documented in this encounter Miscellaneous Notes * Plan of Care - Daniela Pardo RN - 03/31/2023 4:51 PM CST Goals: Clinical Goals for the Shift: Monitor VS, admin meds, tube feeds Long-Term Patient Centered Goal for Treatment: nutritional replacement [...] avoided or minimized Outcome: Adequate for Discharge ER/WELDER * Plan of Care - Leatha Kirkpatrick RN - 03/31/2023 2:45 PM CST 03/31/23 1431 Discharge Summary Discharge Disposition Private residence Equipment/Provider Needs Home Equipment Needs Identified;Home Provider Services Needs Identified Home Care Agency Information Home Care Agency Type #1: Fdc;Physical Therapy;Occupational Therapy Home Care Agency Name [facility] Home Fdc Care Agency Home Care Agency Contact Spoken to Teresa Doss Home Care Agency Order Faxed to access through [employer] Second Home Care Agency Used? -- Home Equipment Information Home Equipment Provider Name Gabriela Home Equipment Provider Home Equipment Provider Contact Spoken to Shanika Royal Home Equipment Provider Order Faxed to Access through Epic Equipment Ordered Stationary O2 concentrator, portable gaseous [...] discharge needs arise, please contact the covering caser shoe parts. ADDENDUM, 03/31/23 @ 2051: CM notified by [facility] Home Care that they cannot see patient [...] has any problems with his G- tube. [facility] DIANNA Coburn, business development manager ER/WELDER ER/WELDER * Plan of Care - Leatha Kirkpatrick RN - 03/31/2023 2:11 PM CST Per [facility], they do not have staffing to provide home care to this patient. [facility] is now set to provide Home O2 and Tube Feeds to patient. [facility] Care will provide HH SN/PT/OT to patient with a start of care date of 04/07/23 or sooner, if they can reach patient's PCP and the PCP agrees to sign future HH orders for patient. DIANNA Coburn, business development manager ER/WELDER * Plan of Care - Moni Angela MSW - 03/31/2023 1:28 PM CST Social work notified by the team that patient will likely be disabled for the next 13+ months. Social work spoke with patient at the bedside. Patient reported he is retired, receiving his alf benefit - $900 monthly. Social work discussed patient's interest in applying for disability benefitsand transferring from his current managed Medicaid to traditional Medicaid [place] plan. Patient stated he's interested in getting more information of disability benefit as well as wanted to see if there's any difference amount of income in his alf vs. Disability. Social work reached out to [facility] for further assistance for disability and Medicaid process and provided patient's PCP information for completion of the [place] medical evaluation [place]. No further Social work needs at this time. Gopal Angela LMSW ER/WELDER * Hospital Course - Erica Eli MD [...] d/c'd home with plan to f/u with [facility] ENT. On 03/23 developed another episode of hemoptysis, reports ~1pint. BPs elevated, normocardic, on room air. Hgb 9.5 (03/21)->7.6 on admission. 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 ENT will schedule follow-up as needed. Pain controlled on PRN APAP, oxy. Hgb remained stable throughout the hospitalization. #Dysphagia #Malnutrition Dysphagia most likely / oropharyngeal mass. Evaluation by DATA CENTER MANAGER with [facility] on 03/24, who recommended full [...] Occasional desaturations requiring 2L NC. Desats to [id number] 03/28-03/29 ON. Required up to 5L NC [...] hospitalization #Mood Continued home escitalopram 20mg daily ER/WELDER ER/WELDER ER/WELDER ER/WELDER ER/WELDER ER/WELDER ER/WELDER ER/WELDER ER/WELDER ER/WELDER * Plan of Care - Leatha Kirkpatrick RN - 03/31/2023 9:21 AM CST CM call to [facility] - checked to see if they take patient's insurance. She reports they do not accept [facility] Plan. CM sent referral via [employer] to [facility] D[facility] for Tube Feeds. Awaiting response re: acceptance of referral. CM received call from [facility] - they are unable to accept patient for services. CM call to [facility], phone: [phone] - they are reviewing the referral and will get back with CM later today. [facility] Care has accepted patient, but they are unable to start care until 04/07/23. If [facility] cannot accept patient with earlier SOC, CM will discuss with Medicine Team to determine next steps. CM spoke with patient's daughter in evening on 03/30/23 - daughter reports she was certified to provide tube feeds for two years and she is very familiar and comfortable with tube feeds. Leatha Kirkpatrick, MSN, business development manager ER/WELDER * Plan of Care - Iliana Sampson [...] Goals for the Shift: (toleration of formula) Long-Term Patient Centered Goal for Treatment: nutritional replacement Summary: Pt tolerating bolus feed titration well. Pt c/o pain;PRN pain meds given per order. No complaints or signs of distress noted. Bed alarm in place, bed in lowest position, call guerrier within reach. ER/WELDER * Plan of Care - Leatha Kirkpatrick RN - 03/30/2023 4:54 PM CST CM sent referral via ECIN to [facility] for patient's new tube feeds/supplies. At goal, patient will need 240 mL q 6 hours with a 60 mL minimum free water flush with each feeding. Awaiting response from [facility]. ADDENDUM, 03/30/23 @ 1835: Patient is getting Osmolite 1.5 calorie TFs. bcnrn Leatha Kirkpatrick, MSN, business development manager ER/WELDER ER/WELDER * ECIN Note - Leatha Kirkpatrick RN [...] neck. Six months ago he moved from [place] to [place], [place] where he lives with his daughter [...] mmol/L 33* 32 31 BUN SERUM mg/dL 18 CREATININE mg/dL 0.49* 0.51* 0.57* [id number] mL/min/1.73 m2 >90 >90 >90 CALCIUM mg/dL 8.7 8.5 8.3* ALBUMIN g/dL -- 3.1* -- PHOSPHORUS PLASMA mg/dL 3.6 3.0 3.1 MAGNESIUM mg/dL 2.0 2.1 2.0 Recent Labs Lab Units 03/28/23195203/28/23170103/28/23 1151 03/27/23201703/27/23 0911 03/27/23 0800 03/26/232011 GLUCOSE [...] of Weight Used for Estimated Protein : [place] Dietary Orders (From admission, onward) Start Ordered 03/30/23 0001 NPO Diet Diet effective midnight 03/29/23 0940 03/29/23 1306 Adult Diet Full Liquid, Restricted Diet effective now Comments: NO purees Medications: non-orally (or liquid form, crushed with liquid) Small bites, single sips, double/repeat swallows to clear Upright when eating Question Answer Comment ([facility]) Diet type Full Liquid ([facility]) Diet type Restricted 03/29/23 1305 03/29/23 1300 Oral Nutrition Supplements ([facility]) Select Supplement: Ensure PLUS High Protein - Any Flavor; Quantity (# of cans): 1 can 3 times daily and at bedtime Question Answer Comment ([facility]) Select Supplement: Ensure PLUS High Protein - [...] Buccal Fat: Somewhat sunken appearance Muscle Loss [place] - [place] Muscle: Slight depression Clavicle [...] Buccal Fat: Somewhat sunken appearance Muscle Loss [place] - [place] Muscle: Slight depression Clavicle [...] goalrate MONITORING/EVALUATION: TF tolerance, Labs, Electrolyte changes ER/WELDER * Plan of Care - Leatha Kirkpatrick RN - 03/30/2023 9:54 AM CST CM sent preemptive referrals via ECIN for HH SN and PT (if PT possible w/ patient insurance). Sent referral to 5 agencies due to patient's insurance - may be difficult to find accepting agency. CM awaiting responses. ADDENDUM, 03/30/23 @ 5206: [facility] Home Care can accept but cannot start care until 04/07/23. Other agencies have said they cannot accept patient's insurance. CM sent new referral for HH SN and PT to [facility] and to [facility] as they may accept patient's insurance. Awaiting responses. rudy Kirkpatrick, MSN, business development manager ER/WELDER ER/WELDER * ECIN Note - Leatha Kirkpatrick RN [...] how he is feeling - Level of [place] Independent with ADLs;Independent functional transfers;Independent with ambulation [...] LE Dressing: Level of assistance Minimum Assist -SW LE Dressing: Assistance with Safety;Other (Comment);Requires assistive [...] Head headache -SW Pain Interventions RN Notified ANGELITA Chilel - Current Vision Wears glasses only for reading [...] Functional Pt reports that he feels his vice president quality assurance strength has slightly decreased lately, but he [...] Level of Assistance 1 Contact Guard Assist - Trials/Comments 1 balance and safety -SW RUE [...] balance;Decreased functional mobility;Decreased ADL independence;Decreased IADL independence - Barriers to Discharge Current Mobility Status;Current ADL Status - Barrier Comments fall risk - Plan Plan of care initiated;If this is the last note, consider this the discharge summary - OT Recommendation Fdc Facility -SW Patient at high risk for Falls;Injury due to decreased ability to care for self;Injury due to reduced functional status;Injury due to balance deficits;Injury at home as patient has not returned to prior level of function - Recommend SNF due to Risk of injury [...] SW Libia Kwan OT 09/27/22 - OT Treatment Row Name 03/28/23 5107 Session Type Treatment - OT Received On 03/28/23 - Safe Environment Arm band checked;Patient found in supine;Gait belt utilized for all out of bed mobility - Subjective Agreeable to Therapy - Family/Caregiver Present No -SW Precautions Fall risk - Pain Assessment 0-10 -SW Pain Score 8 -SW Pain Location Abdomen g-tube location -SW Pain Interventions RN Notified ANGELITA Schumacher -SW Balance Yes -SW Static Sitting-Balance Support [...] ADL Status - Barrier Comments fall risk - Plan Alter current plan;If this is the last note, consider this the discharge summary - Plan Comments change in OT recommendation -SW OT Recommendation Home with family;Home with 24 hour supervision;Home Health OT - Patient at high risk for Falls;Injury due to decreased ability to care for self;Injury due to reduced functional status;Injury due to balance deficits;Injury at home as patient has not returned to prior level of function -SW OT Frequency during current admission 2-3x/wk -SW Treatment/Interventions during current admission ADL/IADL retraining;Balance Training;Bed mobility;Endurance training;Functional activity;Functional mobility training;Functional transfer training;Strengthening;Therapeutic activity;Therapeutic exercise;Transfer training -SW Progress during current admission Progressing toward goals [...] cane -FL (r) KB (c) Level of [place] Independent functional transfers;Independent with ambulation -FL (r) KB (c) Lives With Family Adult niece and her family. Between his Son in law's brother and his ex-sister caroline, the patient states he would have photographer motion picture assistance if he needed it. -FL (r) [...] = Cosigned By Initials Name Effective Dates Imelda Mcnally. 02/12/23 - KB Mercedes Calabrese, PT 10/30/18 [...] of this type exist for this encounter. ER/WELDER * Plan of Care - Gretchen Tao RN - 03/30/2023 9:42 AM CST Goals: Clinical Goals for the Shift: (safety, fall precautions, pain management, vs, skin integrity protection.) Wooden Boat Builder Patient Centered Goal for Treatment: nutritional replacement [...] for severe pain, patient is transported to [facility] this morning by stretcher and one transporter. [...] will be avoided or minimized Outcome: Progressing ER/WELDER * Plan of Care - Ruchi Fan - 03/29/2023 10:56 PM CST Goals: Clinical Goals for the Shift: peg placement, pain management Wooden Boat Builder Patient Centered Goal for Treatment: nutritional replacement Summary: ER/WELDER * Plan of Care - Luciano Nick [...] Patient and/or family are agreeable with plan. assistant center manager will continue to follow and assist with discharge planning as needed. If any further discharge needs arise, please contact the covering caser shoe parts. uLciano Nick RN, BSN Case Management ER/WELDER * ACP (Advance Care Planning) - Moni Angela MSW - 03/29/2023 2:32 PM FITTER/WELDER Advance Care Planning Advance Care Planning Conversation The patient and/or family consented to a voluntary Advance Care Planning conversation. Individuals present for the conversation: patient Advance Directive: Yes On file: Yes Power of Treatment Plant Operator Name: Shirley Evangelista Relationship: Daughter Summary of the conversation: Patient requested to speak with Social work for information of advancedirective and medical power of estate planning attorney. Patient completed the form and notarized [...] ongoing clinical care only. Gopal Angela LMSW ER/WELDER * Post-Procedure Note - Alek Tomlinson MD - 03/29/2023 9:07 AM FITTER/WELDER Radiology Brief Post Procedure Note Attending: Dahiana Mobile Product Manager: Davi Sedation/Anesthesia: Min Sedation Pre-Op/Pre-Procedure Diagnosis: dysphagia Post-Op/Post-Procedure Diagnosis: same Procedure Performed: Gastrostomy tube placement Procedure Findings: successful 24 danish pull type G tube. Patient will need postprocedural prophylactic antibiotics cephalexin 500 bid for 5 days. Complications: None Estimated Blood Loss: < 30 ml Specimens: None Condition: Stable Full report to follow. ER/WELDER * Plan of Care - Gretchen Tao RN - 03/29/2023 7:58 AM CST Goals: Clinical Goals for the Shift: peg placement, pain management Long-Term Patient Centered Goal for Treatment: nutritional replacement [...] on droplet precautions and charge is notified. ER/WELDER * Pre-Procedure Note - Alek Talbot MD - 03/29/2023 7:00 AM FITTER/WELDER PRE-SEDATION ASSESSMENT/H&P Expand All Collapse All PRE-SEDATION [...] Yaima Daniel MD, 20 mg at 03/28/23 1102 folic acid (FOLVITE) tablet 1 mg, 1 [...] Roland Villavicencio MD, 1 tablet at 03/28/23 1102 nicotine (NICODERM CQ) 14 mg patch 24 [...] flush 0.5-20 mL, 0.5-20 mL, intra-catheter, Q8H [facility], Elena Jane MD sodium chloride 0.9% flush [...] Labs Lab Units 03/28/23195203/27/23201703/27/23 0911 03/26/23201103/26/23 0952 03/25/232 SODIUM mmol/L 132* 131* 130* 131* < [...] been discussed with the patient and/or their major account representative. Patient or major account representative was informed that the provider getting consent may not be the same provider performing procedure. All questions answered and agree to proceed. Alek Talbot MD ER/WELDER ER/WELDER * Plan of Care - Ruchi Fan - 03/28/2023 9:37 PM CST Goals: Clinical Goals for the Shift: peg placement, pain management Long-Term Patient Centered Goal for Treatment: nutritional replacement Summary: ER/WELDER * Plan of Care - Moni Angela MSW - 03/28/2023 3:30 PM CST Social work notified by RN that patient requested information of advance directive and healthcare power of estate planning attorney. Social work spoke with patient at the bedside, discussed advance directive, provided a blank form. After patient completed the form, Social work requested the head housekeeper for notary services. Social work to continue to follow. Gopal Angela LMSW ER/WELDER * Post-Procedure Note - Alek Tomlinson MD - 03/28/2023 8:57 AM FITTER/WELDER Radiology Brief Post Procedure Note Attending: Katina Mobile Product Manager: Davi Sedation/Anesthesia: Min Sedation Pre-Op/Pre-Procedure Diagnosis: 63 M with history of oral mass causing severe dysphagia and malnutrition. Here for G-tube placement. Post-Op/Post-Procedure Diagnosis: Same Procedure Performed: G tube placement Procedure Findings: successful G tube placement Complications: None Estimated Blood Loss: < 30 ml Specimens: None Condition: Stable Full report to follow. ER/WELDER * Plan of Care - Ruchi Fan - 03/27/2023 10:49 PM CST Goals: Clinical Goals for the Shift: Monitor labs. vs, tolerate tube feeding Summary: ER/WELDER * Pre-Procedure Note - Oriana Ambriz MD PhD - 03/27/2023 7:34 PM FITTER/WELDER PRE-SEDATION ASSESSMENT/H&P Patient is a 63 y.o. [...] Daily, Yaima Daniel MD, 20 mg at 03/27/23 0932 folic acid (FOLVITE) tablet 1 mg, 1 [...] Daily, Roland Villavicencio MD, 1 tablet at 03/27/23 0932 nicotine (NICODERM CQ) 14 mg patch 24 [...] Villavicencio MD, 100 mg at 03/27/23 0932 ramelteon (ROZEREM) tablet 8 mg, 8 mg, oral, Nightly PRN, Roland Villavicencio MD, 8 mg at 03/26/231958 sodium chloride 0.9% flush 0.5-20 mL, 0.5-20 [...] Allergies Vitals: Vitals: 03/26/23 0425 03/26/235 03/27/23 04103/27/23 0933 BP: 150/60 129/55 132/67 127/61 BP [...] Pertinent Labs: Recent Labs Lab Units 03/27/23 0903/27/23 0551 03/26/23201103/25/23205103/25/2361303/24/233 WBC K/cumm -- -- 8.8 7.2 -- [...] been discussed with the patient and/or their major account representative. Patient or major account representative was informed that the provider getting consent may not be the same provider performing procedure. All questions answered and agree to proceed. Thank you for allowing us to participate in the care of Aleksey Garcia. Please do not hesitate to reach out to Interventional Radiology with further questions or comments. Oriana Ambriz MD, PhD Interventional Radiology ER/WELDER ER/WELDER * Provider Query - Erica Eli MD [...] become part of the patient???s medical record. 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 03/24 OT: Assessment Problem List: Decreased endurance, Decreased balance, Decreased functional mobility, Decreased ADL independence, Decreased IADL independence OT Recommendation: [facility]dc Facility Patient at high risk for: Falls, [...] 2007 Page: 143 Effective with discharges: November [facility] Information Association [facility]: Cancer Fatigue From the ICD-10-CM Coding Guidelines, use of terms such as likely, suspected, possible, or probable(associated with a specific diagnosis that is being evaluated, monitored, or treated as if it exists) are acceptable and can be coded in the inpatient setting when documented at the time of discharge. This documentation will become part of the patient???s medical record. ER/WELDER * Plan of Care - Gretchen Tao [...] improve to fullest extent possible Outcome: Progressing ER/WELDER * Plan of Care - Tobi Mendez RN - 03/26/2023 11:11 PM CST Problem: [...] toes assessment. Call light with in reach. ER/WELDER * Plan of Care - Winsome Burgess [...] ambulation Summary: patient progressing toward all goals ER/WELDER * Plan of Care - Tobi Mendez RN - 03/26/2023 1:55 AM CST Goals: [...] . No distress during my shift . ER/WELDER * Plan of Care - Winsome Burgess [...] Summary: patient is progressing toward all goals ER/WELDER * Op Note - Rocio Quiroz MD - 03/25/2023 3:20 PM CST OPERATIVE NOTE Name: Aleksey Gracia Date of Surgery: 03/25/23 Attending Surgeon: Rocio Quiroz MD Mobile Product Manager Surgeon: MD Roland Dorsey MD Preoperative Diagnosis: [...] for both frozen section as well as granger permanent pathology. 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 In recent weeks he has also developed intermittent hemoptysis prompting ED presentation and evaluation at which time CT imaging of the neck demonstrated a large left oropharyngeal mass. He is now transferred to [facility] and the otolaryngology service was consulted [...] throughout the entire duration of the procedure. ER/WELDER * Plan of Care - Daily Matson RN - 03/25/2023 1:53 AM CST Goals: Clinical Goals for the Shift: vss, labs wnl, safety. bleeding precautions Summary: Pt stable, VSS, Labs collected, pt has no complaints at this time, will continue to monitor pt throughout shift, all safety measures in place. Call light in reach. ER/WELDER * Initial Assessments - Leatha Kirkpatrick RN - 03/24/2023 12:30 PM FITTER/WELDER CM Initial Assessment Interview Note Information Obtained [...] arranged?: No (03/24/23 1230) Health Insurance Coverage: [facility] ([place]) Prescription Coverage: Yes Pharmacy: Patient prefers to use the [facility] at [address] [place] [id number], phone: [phone] Primary Care Provider: Jorge Espinosa PA - [...] steps inside: 28 steps Medication management: Independent (03/24/23 1230) Potential discharge needs include: Home Health: shelter, Physical therapy (03/24/23 123) Dialysis: n/a Behavioral Health Services: Behavioral Health Services: No (03/24/23 123) Patient expects to be Discharged to: Private residence, (03/24/23 123) Additional Information: Patient has strong family support [...] Collaboration with patient, MD, direct care nurse, Instructor Watch Assembly, and other members of the health care team to assure needed interventions completed. 2. Return patient to optimal level of self-care post discharge. 3. Print Line Supervisor will follow for Discharge Planning - interventions [...] with the aftercare plan. Leatha Kirkpatrick RN ER/WELDER * Plan of Care - Ranjana Katz RN - 03/24/2023 12:17 PM CST Goals: Clinical Goals for the Shift: vss, labs wnl, safety. bleeding precautions Summary: progressing towards goals ER/WELDER * Plan of Care - Daily Matson RN - 03/24/2023 4:05 AM CST Goals: Clinical Goals for the Shift: VSS, labs, fall safety Summary: Pt stable, VSS, Labs collected, pt has no complaints at this time, will continue to monitor pt throughout shift, all safety measures in place. Call light in reach. ER/WELDER * ED Procedure Note - Cuba Yoder [...] the ED Cuba Yoder MD 03/23/23 1540 ER/WELDER * ED Re-evaluation Note - Nannette Lam MD - 03/23/2023 3:02 PM FITTER/WELDER ED Re-evaluation TRANSITION OF CARE: I, Nannette [...] I accepted the patient in transfer from [facility] due to bleeding oropharyngeal mass. As [...] admission By: Nannette Lam MD Time: 03/23 153 Value: Potassium, pl(!): 5.2 Comment: (Reviewed) By: Winsome Black MD Time: 03/23 1538 Value: Trop Faye hs: 6 Comment: Will cancel series. 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 Multiple branches of the left external carotid artery including the ascending pharyngeal and lingual branches course through this mass without evidence of active arterial extravasation. By: Nannette Lam MD Chen, Rita Elaine, MD Resident 03/23/23 1530 Nannette Lam MD Resident 03/23/23 7171 ER/WELDER ER/WELDER * ED Pre-Arrival Note - Noemy Loera RN - 03/23/2023 12:59 PM FITTER/WELDER Pre-Arrival Note Pt coming from [place] with new dx of 7x4cm oral mass x2 days ago. Pt was to follow up outpatient but started bleeding yesterday. Pt with hgb drop from 9.5 to 7.0. OSH to give 1 unit of blood [employer]. Sending for possible embolization with IR. Accepted by Dr Schulte with ENT. Dr Licea on the line for report from Dr Quezada. Noemy Loera RN ER/WELDER documented in this encounter Plan of Treatment Pending Results Name Type Priority Associated Diagnoses Date /Time Osmolality, blood Lab Timed 024 10:28 PM FITTER/WELDER Magnesium Lab Timed 03/23/2023 10: 28 PM FITTER/WELDER Phosphorus Lab Timed 03/23/2023 10: 28 PM FITTER/WELDER Hepatic function panel Lab Timed 8:52 PM FITTER/WELDER Scheduled Orders Name Type Priority Associated Diagnoses [...] (STAPHYLOCOCCUS AUREUS) CULTURE Routine 03/31/2023 12:37 PM FITTER/WELDER NEURO CT OUTSIDE REFERENCE Routine 03/31/2023 6:21 AM FITTER/WELDER EGFR Routine 03/30/2023 8:31 PM FITTER/WELDER CBC WITHOUT DIFFERENTIAL Routine 024 8:31 PM FITTER/WELDER PHOSPHORUS Routine 03/30/2023 8:31 PM FITTER/WELDER MAGNESIUM Routine 03/30/2023 8:31 PM FITTER/WELDER BASIC METABOLIC PANEL Routine 03/30/2023 8:31 PM FITTER/WELDER PNEUMONIA PCR WITH AEROBIC CULTURE AND GRAM STAIN Routine 03/30/2023 2:11 PM FITTER/WELDER PULMONARY FUNCTION TEST (PFT) Routine 03/30/2023 1:11 PM FITTER/WELDER PET/CT FDG SKULL TO THIGH IP Routine 03/30/2023 10:30 AM FITTER/WELDER EGFR Routine 03/29/2023 8:25 PM FITTER/WELDER POCT GLUCOSE DEVICE Routine 03/29/2023 8 :25 PM FITTER/WELDER CBC WITHOUT DIFFERENTIAL Routine 024 8:25 PM FITTER/WELDER TYPE AND SCREEN Timed 03/29/2023 8:25 PM FITTER/WELDER PHOSPHORUS Routine 03/29/2023 8:25 PM FITTER/WELDER MAGNESIUM Routine 03/29/2023 8:25 PM FITTER/WELDER BASIC METABOLIC PANEL Routine 03/29/2023 8:25 PM FITTER/WELDER XR CHEST 1 VIEW IP Routine 03/29/2023 5:39 PM FITTER/WELDER POCT GLUCOSE DEVICE Routine 03/29/2023 5 :17 PM FITTER/WELDER CT HEAD WO CONTRAST ED Urgent/IP Urgent 03/29/2023 12:24 PM FITTER/WELDER RESPIRATORY PATHOGEN PANEL Routine 03/29/2023 9:24 AM FITTER/WELDER IR G TUBE PLACEMENT PERCUTANEOUS IP Routine 03/29/2023 9:17 AM FITTER/WELDER EGFR Routine 03/28/2023 7:53 PM FITTER/WELDER CBC WITHOUT DIFFERENTIAL Routine 024 7:53 PM FITTER/WELDER PHOSPHORUS Routine 03/28/2023 7:53 PM FITTER/WELDER MAGNESIUM Routine 03/28/2023 7:53 PM FITTER/WELDER BASIC METABOLIC PANEL Routine 03/28/2023 7:53 PM FITTER/WELDER POCT GLUCOSE DEVICE Routine 03/28/2023 5 :02 PM FITTER/WELDER POCT GLUCOSE DEVICE Routine 03/28/2023 11:51 AM FITTER/WELDER IR G TUBE PLACEMENT PERCUTANEOUS IP Routine 03/28/2023 8:45 AM FITTER/WELDER EGFR Timed 03/27/2023 8:18 PM FITTER/WELDER CBC WITHOUT DIFFERENTIAL Routine 024 8:18 PM FITTER/WELDER PHOSPHORUS Timed 03/27/2023 8:18 PM FITTER/WELDER MAGNESIUM Timed 03/27/2023 8:18 PM FITTER/WELDER HEPATIC FUNCTION PANEL Routine 4 8:18 PM FITTER/WELDER BASIC METABOLIC PANEL Timed 03/27/2023 8:18 PM FITTER/WELDER EGFR Timed 03/27/2023 9:11 AM FITTER/WELDER HEMOGLOBIN AND HEMATOCRIT Timed 03/27/2023 9:11 AM FITTER/WELDER PHOSPHORUS Timed 03/27/2023 9:11 AM FITTER/WELDER MAGNESIUM Timed 03/27/2023 9:11 AM FITTER/WELDER BASIC METABOLIC PANEL Timed 03/27/2023 9:11 AM FITTER/WELDER POCT GLUCOSE DEVICE Routine 03/27/2023 8 :00 AM FITTER/WELDER HEMOGLOBIN AND HEMATOCRIT Timed 03/27/2023 5:51 AM FITTER/WELDER EGFR Timed 03/26/2023 8:12 PM FITTER/WELDER CBC WITHOUT DIFFERENTIAL Routine 024 8:12 PM FITTER/WELDER TYPE AND SCREEN Timed 03/26/2023 8:12 PM FITTER/WELDER PHOSPHORUS Timed 03/26/2023 8:12 PM FITTER/WELDER MAGNESIUM Timed 03/26/2023 8:12 PM FITTER/WELDER HEPATIC FUNCTION PANEL Routine 8:12 PM FITTER/WELDER BASIC METABOLIC PANEL Timed 03/26/2023 8:12 PM FITTER/WELDER POCT GLUCOSE DEVICE Routine 03/26/2023 5 :29 PM FITTER/WELDER EGFR Timed 03/26/2023 9:52 AM FITTER/WELDER PHOSPHORUS Timed 03/26/2023 9:52 AM FITTER/WELDER MAGNESIUM Timed 03/26/2023 9:52 AM FITTER/WELDER BASIC METABOLIC PANEL Timed 03/26/2023 9:52 AM FITTER/WELDER EGFR Timed 03/25/2023 8:52 PM FITTER/WELDER CBC WITHOUT DIFFERENTIAL Routine 024 8:52 PM FITTER/WELDER PHOSPHORUS Timed 03/25/2023 8:52 PM FITTER/WELDER MAGNESIUM Timed 03/25/2023 8:52 PM FITTER/WELDER HEPATIC FUNCTION PANEL Timed 8:52 PM FITTER/WELDER BASIC METABOLIC PANEL Timed 03/25/2023 8:52 PM FITTER/WELDER XR ABDOMEN AP 1 VIEW IP Routine 03/25/2023 5:05 PM FITTER/WELDER SURGICAL PATHOLOGY Routine 03/25/2023 3: 29 PM FITTER/WELDER Oral mass LARYNGOSCOPY WITH BIOPSY 024 2:55 PM FITTER/WELDER Oral mass HEMOGLOBIN AND HEMATOCRIT Timed 03/25/2023 12:40 PM FITTER/WELDER OSMOLALITY, BLOOD Routine 03/25/2023 12:40 PM FITTER/WELDER URINALYSIS AND REFLEX TO MICROSCOPIC AND CULTURE STAT 03/25/2023 7:55 AM FITTER/WELDER SODIUM, URINE, RANDOM Routine 03/25/2023 7:55 AM FITTER/WELDER OSMOLALITY, URINE Routine 03/25/2023 7:5 5 AM FITTER/WELDER URINALYSIS, MICROSCOPIC ONLY STAT 03/25/2023 7:55 AM FITTER/WELDER EGFR Timed 03/25/2023 6:14 AM FITTER/WELDER HEMOGLOBIN AND HEMATOCRIT Timed 03/25/2023 6:14 AM FITTER/WELDER BASIC METABOLIC PANEL Timed 03/25/2023 6:14 AM FITTER/WELDER EGFR Timed 03/24/2023 9:13 PM FITTER/WELDER CBC WITHOUT DIFFERENTIAL Routine 024 9:13 PM FITTER/WELDER PHOSPHORUS Routine 03/24/2023 9:13 PM FITTER/WELDER MAGNESIUM Routine 03/24/2023 9:13 PM FITTER/WELDER BASIC METABOLIC PANEL Timed 03/24/2023 9:13 PM FITTER/WELDER HEMOGLOBIN AND HEMATOCRIT Timed 03/24/2023 3:00 PM FITTER/WELDER FL MODIFIED BARIUM SWALLOW W VIDEO IP Routine 03/24/2023 1:38 PM FITTER/WELDER DATA CENTER MANAGER EVALUATE AND TREAT VIDEOFLUOROSCOPIC SWALLOW STUDY Routine 03/24/2023 1:36 PM FITTER/WELDER POTASSIUM, WHOLE BLOOD STAT 5:17 AM FITTER/WELDER EGFR Timed 03/24/2023 5:17 AM FITTER/WELDER RESPIRATORY PATHOGEN PANEL STAT 03/24/2023 5:17 AM FITTER/WELDER HEMOGLOBIN AND HEMATOCRIT Timed 03/24/2023 5:17 AM FITTER/WELDER BASIC METABOLIC PANEL Timed 03/24/2023 5:17 AM FITTER/WELDER CBC WITHOUT DIFFERENTIAL Routine 024 10:33 PM FITTER/WELDER IRON PROFILE W/ IBC Timed 03/23/2023 10:28 PM FITTER/WELDER HIV 1/2 ANTIBODY PLUS P24 ANTIGEN Timed 03/23/2023 10:28 PM FITTER/WELDER PHOSPHORUS Timed 03/23/2023 10:28 PM FITTER/WELDER OSMOLALITY, BLOOD Timed 03/23/2023 10:28 PM FITTER/WELDER MAGNESIUM Timed 03/23/2023 10:28 PM FITTER/WELDER FERRITIN Timed 03/23/2023 10:28 PM FITTER/WELDER VITAMIN B12 Timed 03/23/2023 10:28 PM FITTER/WELDER CTA HEAD NECK W WO CONTRAST ED 03/23/2023 5:52 PM FITTER/WELDER TRANSFUSE RED BLOOD CELLS Timed 03/23/2023 5:50 PM FITTER/WELDER XR CHEST 1 VIEW ED 03/23/2023 4:46 PM FITTER/WELDER POCUS CARDIAC 03/23/2023 4:27 PM FITTER/WELDER B CHECK SAMPLE STAT 03/23/2023 4:12 PM FITTER/WELDER HEMOGLOBIN AND HEMATOCRIT STAT 03/23/2023 4:12 PM FITTER/WELDER ECG 12-LEAD Routine 03/23/2023 3:38 PM FITTER/WELDER TROPONIN I HIGH-SENSITIVITY SERIES (BASELINE, 2HR, 4HR, 6HR) STAT 03/23/2023 2:44 PM FITTER/WELDER EGFR STAT 03/23/2023 2:44 PM FITTER/WELDER DIFFERENTIAL AUTO STAT 03/23/2023 2:4 4 PM FITTER/WELDER CBC WITH AUTO DIFFERENTIAL STAT 03/23/2023 2:44 PM FITTER/WELDER APTT Routine 03/23/2023 2:44 PM FITTER/WELDER PROTIME-INR STAT 03/23/2023 2:44 PM FITTER/WELDER TYPE AND SCREEN STAT 03/23/2023 2:44 PM FITTER/WELDER COMPREHENSIVE METABOLIC PANEL STAT 03/23/2023 2:44 PM FITTER/WELDER PREPARE RBC Timed 03/23/2023 2:33 PM FITTER/WELDER documented in this encounter Results * Infection Prevention MRSA Only (Staphylococcus aureus) Culture Nasal (03/31/2023 12:37 PM FITTER/WELDER) Report Final Report: Negative [facility] Nasal 03/31/2023 12:3 7 PM FITTER/WELDER 03/31/2023 12:56 PM FITTER/WELDER Narrative [facility] - 04/01/2023 1:35 PM FITTER/WELDER Testing performed by [facility] ([phone]). us Logan Alvarado MD LAB MICROBIOLOGY - GENERAL ORDERABLES Final Result Performing Organization Address City/[facility] Co de Phone Number [facility] Department [place] [address] * Neuro CT Outside Reference (03/31/2023 6:21 AM FITTER/WELDER) Impressions [facility] - 03/31/2023 6:21 AM FITTER/WELDER These images are for Reference purposes only and have not been reviewed by [facility]. ??There will be no report generated by a [facility] Radiologist. Narrative [facility] - 03/31/2023 6:21 AM FITTER/WELDER EXAMINATION: ??Images For Reference Purposes Only us Elysia Ngo MD PhD IMG CT PROCEDURES Final Result Performing Organization Address [facility] Co de Phone Number [facility] * eGFR (03/30/2023 8:31 PM FITTER/WELDER) eGFR >90 >=60 mL/min/1. 73 m2 [facility] Comment: Interpretive Data Reference Interval Normal ?>/= [...] last reviewed 2020. Blood 03/30/2023 8:31 PM FITTER/WELDER 03/30/2023 10:35 PM FITTER/WELDER Stanislaw Goel MD LAB BLOOD ORDERABLES Fi nal Result Performing Organization Address City/[facility]/ZIP Co de Phone Number [facility] [place] [address] * Phosphorus (03/30/2023 8:31 PM FITTER/WELDER) Phosphorus, pl 3.4 2.3 - 4.5 mg/dL [facility] Blood 03/30/2023 8:31 PM FITTER/WELDER 03/30/2023 10:35 PM FITTER/WELDER Stanislaw Goel MD LAB BLOOD ORDERABLES Fi nal Result [facility] [place] [address] * Magnesium (03/30/2023 8:31 PM FITTER/WELDER) Magnesium 2.2 1.4 - 2.5 mg/dL [facility] Blood 03/30/2023 8:31 PM FITTER/WELDER 03/30/2023 10:35 PM FITTER/WELDER Stanislaw Goel MD LAB BLOOD ORDERABLES Fi nal Result [facility] [place] [address] * (ABNORMAL) Basic metabolic panel (03/30/2023 8:31 PM FITTER/WELDER) [facility] Sodium 132(L) 135 - 145 mmol/L [facility] Potassium, pl 4.3 3.3 - 4.9 mmol/L [facility] Chloride 91(L) 97 - 110 mmol/L [facility] CO2 33(H) 22 - 32 mmol/L [facility] Anion gap 8 2 - 15 mmol/L [facility] BUN 23 6 - 25 mg/dL [facility] Creatinine 0.55(L) 0.80 - 1.30 mg/dL [facility] Glucose 110 70 - 199 mg/dL [facility] Comment: Interpretive Data Fasting glucose >/= 126 [...] 2022. Calcium 8.8 8.5 - 10.3 mg/dL [facility] Blood 03/30/2023 8:31 PM FITTER/WELDER 03/30/2023 10:35 PM FITTER/WELDER us Stanislaw Goel MD LAB BLOOD ORDERABLES Fi nal Result Performing Organization Address City/[facility]/ZIP Co de Phone Number [facility] Department [place] [address] * (ABNORMAL) CBC without differential (03/30/2023 8:31 PM FITTER/WELDER) [facility] WBC 8.7 3.8 - 9.9 K/cumm [facility] Hgb 8.4(L) 13.0 - 17.5 g/dL [facility] Hct 26.1(L) 38.9 - 50.3 % [facility] Plt 445(H) 150 - 400 K/cumm [facility] MPV 9.6 9.1 - 12.3 fL [facility] RBC 2.71(L) 4.30 - 5.80 M/cumm [facility] MCV 96.3 81.3 - 96.4 fL [facility] MCH 31.0 27.1 - 33.3 pg [facility] MCHC 32.2(L) 32.3 - 35.7 g/dL [facility] RDW CV 13.5 11.1 - 14.9 % [facility] RDW SD 47.4 35.7 - 48.1 fL [facility] NRBC abs 0.00 0.00 - 0.01 K/cumm [facility] Blood 03/30/2023 8:31 PM FITTER/WELDER 03/30/2023 10:35 PM FITTER/WELDER us Stanislaw Goel MD LAB BLOOD ORDERABLES Fi nal Result [facility] Department [place] [address] * (ABNORMAL) Pneumonia PCR with aerobic culture and Gram stain Sputum (03/30/2023 2:11 PM FITTER/WELDER) Pathologist [facility] Direct Specimen Exam Stain: Abundant squamous epithelial cells seen indicating excessive oropharyngeal contamination. ??Culture will not be processed further. ??Please submit another specimen. Smear results called to and read back by: Ranjana Katz RN [phone] on 03/30/2023 15:49:00 by: Alis Harper [facility] Direct Specimen Exam Molecular Analysis: Abundant squamous epithelial cells observed on Gram stain. Specimen will not be processed for rapid molecular analysis. [facility] Report Final Report: This is the final report. (.) [facility] Sputum 03/30/2023 2:11 PM FITTER/WELDER 03/30/2023 2:49 PM FITTER/WELDER Narrative [facility] - 03/31/2023 8:57 AM FITTER/WELDER When rapid molecular testing results are reported, testing completed using the [employer] Pneumonia Panel. ??This molecular assay detects: Acinetobacter [...] performance characteristics have been confirmed by the [facility]. ??The performance of the [employer] Pneumonia Panel has not been established for monitoring treatment of infection and bacterial nucleic acids may persist independent of organism viability. us Logan Alvarado MD LAB MICROBIOLOGY - GENERAL ORDERABLES Final Result [facility] [place] [address] * Pulmonary Function Test -[facility]; Oxygen Assessment Titration (03/30/2023 1:11 PM FITTER/WELDER) Anatomical Region Laterality Modality PFT Narrative 04/01/2023 11:14 AM FITTER/WELDER Table formatting from the original result was not included. [facility] Division of Pulmonary & Critical Care Medicine [address] [place] [address]; [facility]; [place], [place] ??[address]; [phone] Pulmonary Function Laboratory Pulmonary Stress Test Simple/Oxygen [...] no significant change of FEV1. ?? Diane Bry, M.D. ?? By signing this report, the [...] FDG Skull to Thigh (03/30/2023 10:30 AM FITTER/WELDER) Anatomical Region Laterality Modality N/A Positron Emissio n Tomography (PET) 03/30/2023 11:4 9 AM FITTER/WELDER Impressions 03/30/2023 1:32 PM FITTER/WELDER 1. ??Large, hypermetabolic, ulcerative and infiltrative mass centered in the left oropharynx with involvement of the left nasopharynx, left rubber curer, submandibular, and sublingual spaces, left tonsillar fossa, [...] by: DO Yesi Desir 03/30/2023 1:32 PM FITTER/WELDER EXAMINATION: TUMOR FDG-PET/CT IMAGING DATE OF STUDY: ??03/30/2023 SCANNER: [facility] RADIOPHARMACEUTICAL: 11.1 mCi F-18 Fluorodeoxyglucose (FDG) [...] obtained. ??The study was interpreted on the [employer] workstation. ??The mean liver SUV (reported for vice president quality assurance purposes) is 1.5. ?? The total scanned [...] into the left nasopharynx, into the left rubber curer, submandibular, and sublingual spaces, left tonsillar fossa, [...] FDG-PET/CT IMAGING DATE OF STUDY: 03/30/2023 SCANNER: [facility] [employer] RADIOPHARMACEUTICAL: 11.1 mCi F-18 Fluorodeoxyglucose (FDG) i.v. [...] obtained. The study was interpreted on the [employer] workstation. The mean liver SUV (reported for vice president quality assurance purposes) is 1.5. The total scanned area [...] into the left nasopharynx, into the left rubber curer, submandibular, and sublingual spaces, left tonsillar fossa, [...] with involvement of the left nasopharynx, left rubber curer, submandibular, and sublingual spaces, left tonsillar fossa, [...] l Result * eGFR (03/29/2023 8:25 PM FITTER/WELDER) eGFR >90 >=60 mL/min/1. 73 m2 [facility] Comment: Interpretive Data Reference Interval Normal ?>/= [...] last reviewed 2020. Blood 03/29/2023 8:25 PM FITTER/WELDER 03/29/2023 9:41 PM FITTER/WELDER us Stanislaw Goel MD LAB BLOOD ORDERABLES Fi nal Result [facility] Department [place] [address] * POCT glucose (03/29/2023 8:25 PM FITTER/WELDER) Glucose, POC 108 70 - 199 mg/dL [facility] [facility] Blood 03/29/2023 8:25 PM FITTER/WELDER 03/29/2023 8:25 PM FITTER/WELDER us Logan Alvarado MD LAB POCT ORDERABLES - DEVIC E Final Result Performing Organization Address [facility] Co de Phone Number [facility] [place] [place] [address] * Phosphorus (03/29/2023 8:25 PM FITTER/WELDER) [facility] Phosphorus, pl 3.2 2.3 - 4.5 mg/dL [facility] Blood 03/29/2023 8:25 PM FITTER/WELDER 03/29/2023 9:41 PM FITTER/WELDER Stanislaw Goel MD LAB BLOOD ORDERABLES Fi nal Result Performing Organization Address [facility] de Phone Number [facility] [place] [address] * Magnesium (03/29/2023 8:25 PM FITTER/WELDER) [facility] Magnesium 2.2 1.4 - 2.5 mg/dL [facility] Blood 03/29/2023 8:25 PM FITTER/WELDER 03/29/2023 9:41 PM FITTER/WELDER Stanislaw Goel MD LAB BLOOD ORDERABLES Fi nal Result Performing Organization Address [facility] de Phone Number [facility] [place] [address] * (ABNORMAL) Basic metabolic panel (03/29/2023 8:25 PM FITTER/WELDER) [facility] Sodium 131(L) 135 - 145 mmol/L [facility] Potassium, pl 4.7 3.3 - 4.9 mmol/L [facility] Chloride 92(L) 97 - 110 mmol/L [facility] CO2 34(H) 22 - 32 mmol/L [facility] Anion gap 5 2 - 15 mmol/L [facility] BUN 20 6 - 25 mg/dL [facility] Creatinine 0.55(L) 0.80 - 1.30 mg/dL [facility] Glucose 100 70 - 199 mg/dL [facility] Comment: Interpretive Data Fasting glucose >/= 126 [...] 2022. Calcium 8.7 8.5 - 10.3 mg/dL [facility] Blood 03/29/2023 8:25 PM FITTER/WELDER 03/29/2023 9:41 PM FITTER/WELDER us Stanislaw Goel MD LAB BLOOD ORDERABLES Fi nal Result [facility] [place] [address] * (ABNORMAL) CBC without differential (03/29/2023 8:25 PM FITTER/WELDER) Pathologist [facility] WBC 10.5(H) 3.8 - 9.9 K/cumm [facility] Hgb 8.8(L) 13.0 - 17.5 g/dL [facility] Hct 26.5(L) 38.9 - 50.3 % [facility] Plt 378 150 - 400 K/cumm [facility] MPV 9.6 9.1 - 12.3 fL [facility] RBC 2.78(L) 4.30 - 5.80 M/cumm [facility] MCV 95.3 81.3 - 96.4 fL [facility] MCH 31.7 27.1 - 33.3 pg [facility] MCHC 33.2 32.3 - 35.7 g/dL [facility] RDW CV 13.4 11.1 - 14.9 % [facility] RDW SD 47.4 35.7 - 48.1 fL [facility] NRBC abs 0.00 0.00 - 0.01 K/cumm [facility] Blood 03/29/2023 8:25 PM FITTER/WELDER 03/29/2023 9:42 PM FITTER/WELDER Stanislaw Goel MD LAB BLOOD ORDERABLES Fi nal Result Performing Organization Address [facility] Co de Phone Number [facility] [place] [address] * Type and screen (03/29/2023 8:25 PM FITTER/WELDER) Tam, indirect Negative ABO Rh A Positive [facility] Blood 03/29/2023 8:25 PM FITTER/WELDER 03/29/2023 9:39 PM FITTER/WELDER Narrative [facility] - 03/29/2023 10:55 PM FITTER/WELDER Has the patient had Daratumumab or Isatuximab in the past 6 months?->Unknown Stanislaw Goel MD LAB BLOOD BANK TEST ORD ERABLES Final Result Performing Organization Address [facility] de Phone Number [facility] [place] [address] * XR Chest 1 View (03/29/2023 5:39 PM FITTER/WELDER) Anatomical Region Laterality Modality Body, Chest N/A Digital Radiogra phy 03/30/2023 9:22 AM FITTER/WELDER Impressions 03/30/2023 9:22 AM FITTER/WELDER Comparison exam is dated 03/23/2023. Since the prior examination, the patient has developed bilateral pulmonary infiltrates, right greater than left, which could represent pneumonia, perhaps from aspiration. The cardiomediastinal silhouette is normal. Electronically signed by: Cayden Vincent M.D. Narrative 03/30/2023 9:22 AM FITTER/WELDER EXAMINATION: 1 view chest radiograph Procedure Note Cayden Vincent MD - 03/30/2023 EXAMINATION: 1 view chest radiograph IMPRESSION: Comparison exam is dated 03/23/2023. Since the prior examination, the patient has developed bilateral pulmonary infiltrates, right greater than left, which could represent pneumonia, perhaps from aspiration. The cardiomediastinal silhouette is normal. Electronically signed by: Cayden Vincent M.D. us Logan Alvarado MD IMG XR PROCEDURES Final Res ult * POCT glucose (03/29/2023 5:17 PM FITTER/WELDER) Glucose, POC 89 70 - 199 mg/dL [facility] Blood 03/29/2023 5:17 PM FITTER/WELDER 03/29/2023 5:17 PM FITTER/WELDER us Logan Alvarado MD LAB POCT ORDERABLES - DEVIC E Final Result [facility] [place] [address] * CT Head WO Contrast (03/29/2023 12:24 PM FITTER/WELDER) Anatomical Region Laterality Modality Head and Neck N/A Computed Tomogra phy 03/29/2023 12:5 3 PM FITTER/WELDER Impressions 03/29/2023 5:29 PM FITTER/WELDER No acute intracranial abnormality. Dictated by: Quincy Gil MD The radiology attending physician has personally reviewed this study, and had reviewed and/or edited this written report and agrees with it. Electronically signed by: Kolby Hodges M.D. Narrative 03/29/2023 5:29 PM FITTER/WELDER EXAMINATION: CT head without contrast HISTORY: Fall, [...] Respiratory pathogen panel Nasopharyngeal (03/29/2023 9:24 AM FITTER/WELDER) Pathologist [facility] Influenza A RNA Not Detected Not Detected [facility] Influenza B RNA Not Detected Not Detected [facility] RSV RNA Not Detected Not Detected [facility] COVID-19 RNA Not Detected Not Detected [facility] Coronavirus 229E RNA Not Detected Not Detected [facility] Coronavirus HKU1 RNA Not Detected Not Detected [facility] Coronavirus NL63 RNA Not Detected Not Detected [facility] Coronavirus OC43 RNA Not Detected Not Detected [facility] Adenovirus DNA Not Detected Not Detected [facility] Metapneumovirus RNA Not Detected Not Detected [facility] Rhinovirus/Enterov irus RNA Not Detected Not Detected [facility] Parainfluenza 1 RNA Not Detected Not Detected [facility] Parainfluenza 2 RNA Not Detected Not Detected [facility] Parainfluenza 3 RNA Not Detected Not Detected [facility] Parainfluenza 4 RNA Not Detected Not Detected [facility] B. pertussis DNA Not Detected Not Detected [facility] B. parapertussis DNA Not Detected Not Detected [facility] C. pneumoniae DNA Not Detected Not Detected [facility] M. pneumoniae DNA Not Detected Not Detected [facility] Nasopharyngeal 03/29/2023 9: 24 AM FITTER/WELDER 03/29/2023 10:34 AM FITTER/WELDER Narrative [facility] - 03/29/2023 11:33 AM FITTER/WELDER Is the Patient experiencing symptoms consistent with COVID?->Yes Surveillance testing for transplant patient?->No ??Interpretive Data The Loopcam FilmArray Respiratory Panel (RP2.1) assay is a [...] assay has FDA clearance for testing of MEDICAL RECEPTION swabs. ??The performance of additional specimen types has been assessed by the performing laboratory. ??The performance characteristics of this assay have been determined by [facility]. Current interpretive data was last revised on 21. us Logan Alvarado MD LAB MICROBIOLOGY - GENERAL ORDERABLES Final Result [facility] [place] [address] * IR G Tube Placement Percutaneous (03/29/2023 9:17 AM FITTER/WELDER) Anatomical Region Laterality Modality Body N/A X-Ray Angiograph y 03/29/2023 9:32 AM FITTER/WELDER Impressions 03/29/2023 4:11 PM FITTER/WELDER Successful placement of a 24 Turkmen pull-through gastrostomy catheter. PLAN: ??The gastrostomy catheter [...] and agrees with it. Electronically signed by: MD Yesi Finley 03/29/2023 4:11 PM FITTER/WELDER EXAMINATION: PERCUTANEOUS FLUOROSCOPIC PULL-TYPE GASTROSTOMY CATHETER PLACEMENT [...] was obtained. Prior to beginning the procedure, Dalton Protocol was performed to confirm the patient's [...] wall through the oropharynx. Next, a 24 Turkmen pull type gastrostomy tube was advanced over [...] was obtained. Prior to beginning the procedure, Dalton Protocol was performed to confirm the patient's [...] wall through the oropharynx. Next, a 24 Turkmen pull type gastrostomy tube was advanced over [...] identified. IMPRESSION: Successful placement of a 24 Turkmen pull-through gastrostomy catheter. PLAN: The gastrostomy catheter [...] Res ult * eGFR (03/28/2023 7:53 PM FITTER/WELDER) Pathologist [facility] eGFR >90 >=60 mL/min/1. 73 m2 [facility] Comment: Interpretive Data Reference Interval Normal ?>/= [...] last reviewed 2020. Blood 03/28/2023 7:53 PM FITTER/WELDER 03/28/2023 8:47 PM FITTER/WELDER Stanislaw Goel MD LAB BLOOD ORDERABLES Fi nal Result Performing Organization Address City/[facility]/ZIP Co de Phone Number [facility] Department of [place], [place] [id number] * Phosphorus (03/28/2023 7:53 PM FITTER/WELDER) Phosphorus, pl 3.6 2.3 - 4.5 mg/dL [facility] Blood 03/28/2023 7:53 PM FITTER/WELDER 03/28/2023 8:47 PM FITTER/WELDER us Stanislaw Goel MD LAB BLOOD ORDERABLES Fi nal Result [facility] [place] [address] * Magnesium (03/28/2023 7:53 PM FITTER/WELDER) Magnesium 2.0 1.4 - 2.5 mg/dL [facility] Blood 03/28/2023 7:53 PM FITTER/WELDER 03/28/2023 8:47 PM FITTER/WELDER Stanislaw Goel MD LAB BLOOD ORDERABLES Fi nal Result Performing Organization Address City/[facility]/ZIP Co de Phone Number [facility] [place] [address] * (ABNORMAL) Basic metabolic panel (03/28/2023 7:53 PM FITTER/WELDER) Pathologist [facility] Sodium 132(L) 135 - 145 mmol/L [facility] Potassium, pl 5.1(H) 3.3 - 4.9 mmol/L [facility] Chloride 92(L) 97 - 110 mmol/L [facility] CO2 33(H) 22 - 32 mmol/L [facility] Anion gap 7 2 - 15 mmol/L [facility] BUN 20 6 - 25 mg/dL [facility] Creatinine 0.49(L) 0.80 - 1.30 mg/dL [facility] Glucose 104 70 - 199 mg/dL [facility] Comment: Interpretive Data Fasting glucose >/= 126 [...] 2022. Calcium 8.7 8.5 - 10.3 mg/dL [facility] Blood 03/28/2023 7:53 PM FITTER/WELDER 03/28/2023 8:47 PM FITTER/WELDER Stanislaw Goel MD LAB BLOOD ORDERABLES Fi nal Result Performing Organization Address [facility]/ZIP Co de Phone Number [facility] [place] [address] * (ABNORMAL) CBC without differential (03/28/2023 7:53 PM FITTER/WELDER) WBC 9.4 3.8 - 9.9 K/cumm [facility] Hgb 9.6(L) 13.0 - 17.5 g/dL [facility] Hct 28.6(L) 38.9 - 50.3 % [facility] Plt 361 150 - 400 K/cumm [facility] MPV 9.5 9.1 - 12.3 fL [facility] RBC 3.04(L) 4.30 - 5.80 M/cumm [facility] MCV 94.1 81.3 - 96.4 fL [facility] MCH 31.6 27.1 - 33.3 pg [facility] MCHC 33.6 32.3 - 35.7 g/dL [facility] RDW CV 13.7 11.1 - 14.9 % [facility] RDW SD 47.0 35.7 - 48.1 fL [facility] NRBC abs 0.00 0.00 - 0.01 K/cumm [facility] Blood 03/28/2023 7:53 PM FITTER/WELDER 03/28/2023 8:48 PM FITTER/WELDER us Stanislaw Goel MD LAB BLOOD ORDERABLES Fi nal Result [facility] [place] [address] * POCT glucose (03/28/2023 5:02 PM FITTER/WELDER) Pathologist [facility] Glucose, POC 131 70 - 199 mg/dL [facility] Blood 03/28/2023 5:02 PM FITTER/WELDER 03/28/2023 5:02 PM FITTER/WELDER us Logan Alvarado MD LAB POCT ORDERABLES - DEVIC E Final Result Performing Organization Address City/[facility]/ZIP Co de Phone Number [facility] Department [place] [address] * POCT glucose (03/28/2023 11:51 AM FITTER/WELDER) Glucose, POC 106 70 - 199 mg/dL [facility] Blood 03/28/2023 11:5 1 AM FITTER/WELDER 03/28/2023 11:51 AM FITTER/WELDER us Stanislaw Goel MD LAB POCT ORDERABLES - D EVICE Final Result [facility] [place] [address] * IR G Tube Placement Percutaneous (03/28/2023 8:45 AM FITTER/WELDER) Anatomical Region Laterality Modality Body N/A X-Ray Angiograph y 03/28/2023 9:48 AM FITTER/WELDER Impressions 03/28/2023 1:16 PM FITTER/WELDER Successful placement of a 16 Turkmen gastrostomy catheter with gastropexy. RECOMMENDATIONS: 1. The [...] Oriana Ambriz MD Narrative 03/28/2023 1:16 PM FITTER/WELDER EXAMINATION: PERCUTANEOUS BALLOON ASSISTED GASTROSTOMY CATHETER PLACEMENT [...] was obtained. Prior to beginning the procedure, Dalton Protocol was performed to confirm the patient's [...] prepped and draped in sterile fashion. A lithograph designer image of the abdomen was obtained. Glucagon [...] was obtained. Prior to beginning the procedure, Dalton Protocol was performed to confirm the patient's [...] prepped and draped in sterile fashion. A lithograph designer image of the abdomen was obtained. Glucagon [...] above. IMPRESSION: Successful placement of a 16 Turkmen gastrostomy catheter with gastropexy. RECOMMENDATIONS: 1. The [...] by: Oriana Ambriz MD Stanislaw Goel MD IM IR PROCEDURES Final Result * eGFR (03/27/2023 8:18 PM FITTER/WELDER) Pathologist [facility] eGFR >90 >=60 mL/min/1. 73 m2 [facility] Comment: Interpretive Data Reference Interval Normal ?>/= [...] last reviewed 2020. Blood 03/27/2023 8:18 PM FITTER/WELDER 03/27/2023 9:24 PM FITTER/WELDER us Stanislaw Goel MD LAB BLOOD ORDERABLES Fi nal Result [facility] [place] [address] * (ABNORMAL) CBC without differential (03/27/2023 8:18 PM FITTER/WELDER) WBC 6.3 3.8 - 9.9 K/cumm [facility] Hgb 8.3(L) 13.0 - 17.5 g/dL [facility] Hct 25.8(L) 38.9 - 50.3 % [facility] Plt 300 150 - 400 K/cumm [facility] MPV 9.2 9.1 - 12.3 fL [facility] RBC 2.66(L) 4.30 - 5.80 M/cumm [facility] MCV 97.0(H) 81.3 - 96.4 fL [facility] MCH 31.2 27.1 - 33.3 pg [facility] MCHC 32.2(L) 32.3 - 35.7 g/dL [facility] RDW CV 13.7 11.1 - 14.9 % [facility] RDW SD 48.2(H) 35.7 - 48.1 fL [facility] NRBC abs 0.00 0.00 - 0.01 K/cumm [facility] Blood 03/27/2023 8:18 PM FITTER/WELDER 03/27/2023 9:24 PM FITTER/WELDER Stanislaw Goel MD LAB BLOOD ORDERABLES Fi nal Result [facility] [place] [address] * Phosphorus (03/27/2023 8:18 PM FITTER/WELDER) [facility] Phosphorus, pl 3.0 2.3 - 4.5 mg/dL [facility] Blood 03/27/2023 8:18 PM FITTER/WELDER 03/27/2023 9:24 PM FITTER/WELDER Stanislaw Goel MD LAB BLOOD ORDERABLES Fi nal Result Performing Organization Address City/[facility] de Phone Number [facility] [place] [address] * (ABNORMAL) Basic metabolic panel (03/27/2023 8:18 PM FITTER/WELDER) Pathologist [facility] Sodium 131(L) 135 - 145 mmol/L [facility] Potassium, pl 4.5 3.3 - 4.9 mmol/L [facility] Chloride 95(L) 97 - 110 mmol/L [facility] CO2 32 22 - 32 mmol/L [facility] Anion gap 4 2 - 15 mmol/L [facility] BUN 22 6 - 25 mg/dL [facility] Creatinine 0.51(L) 0.80 - 1.30 mg/dL [facility] Glucose 88 70 - 199 mg/dL [facility] Comment: Interpretive Data Fasting glucose >/= 126 [...] 2022. Calcium 8.5 8.5 - 10.3 mg/dL [facility] Blood 03/27/2023 8:18 PM FITTER/WELDER 03/27/2023 9:24 PM FITTER/WELDER Stanislaw Goel MD LAB BLOOD ORDERABLES Fi nal Result Performing Organization Address City/[facility]/ZIP Co de Phone Number [facility] [place] [address] * Magnesium (03/27/2023 8:18 PM FITTER/WELDER) [facility] Magnesium 2.1 1.4 - 2.5 mg/dL [facility] Blood 03/27/2023 8:18 PM FITTER/WELDER 03/27/2023 9:24 PM FITTER/WELDER Stanislaw Goel MD LAB BLOOD ORDERABLES Fi nal Result Performing Organization Address [facility] Co de Phone Number [facility] [place] [address] * (ABNORMAL) Hepatic function panel (03/27/2023 8:18 PM FITTER/WELDER) Pathologist [facility] Bilirubin, total <0.2 0.1 - 1.2 mg/dL [facility] Bilirubin, direct <0.2 0.1 - 0.3 mg/dL [facility] Protein, pl 6.3(L) 6.5 - 8.5 g/dL [facility] Albumin 3.1(L) 3.5 - 5.0 g/dL [facility] Alk phos 83 40 - 130 Units/L [facility] ALT 21 7 - 55 Units/L [facility] AST 38 10 - 50 Units/L [facility] Blood 03/27/2023 8:18 PM FITTER/WELDER 03/27/2023 9:24 PM FITTER/WELDER us Stanislaw Goel MD LAB BLOOD ORDERABLES Fi nal Result Performing Organization Address [facility]/State/[facility] Co de Phone Number [facility] [place] [address] * eGFR (03/27/2023 9:11 AM FITTER/WELDER) eGFR >90 >=60 mL/min/1. 73 m2 [facility] Comment: Interpretive Data Reference Interval Normal ?>/= [...] last reviewed 2020. Blood 03/27/2023 9:11 AM FITTER/WELDER 03/27/2023 10:15 AM FITTER/WELDER Stanislaw Goel MD LAB BLOOD ORDERABLES Fi nal Result [facility] [place] [address] * Phosphorus (03/27/2023 9:11 AM FITTER/WELDER) Pathologist [facility] Phosphorus, pl 3.1 2.3 - 4.5 mg/dL [facility] Blood 03/27/2023 9:11 AM FITTER/WELDER 03/27/2023 10:13 AM FITTER/WELDER us Stanislaw Goel MD LAB BLOOD ORDERABLES Fi nal Result Performing Organization Address [facility] Co de Phone Number [facility] [place] [address] * (ABNORMAL) Basic metabolic panel (03/27/2023 9:11 AM FITTER/WELDER) [facility] Sodium 130(L) 135 - 145 mmol/L [facility] Potassium, pl 4.0 3.3 - 4.9 mmol/L [facility] Chloride 94(L) 97 - 110 mmol/L [facility] CO2 31 22 - 32 mmol/L [facility] Anion gap 5 2 - 15 mmol/L [facility] BUN 18 6 - 25 mg/dL [facility] Creatinine 0.57(L) 0.80 - 1.30 mg/dL [facility] Glucose 127 70 - 199 mg/dL [facility] Comment: Interpretive Data Fasting glucose >/= 126 [...] 2022. Calcium 8.3(L) 8.5 - 10.3 mg/dL [facility] Blood 03/27/2023 9:11 AM FITTER/WELDER 03/27/2023 10:13 AM FITTER/WELDER us Stanislaw Goel MD LAB BLOOD ORDERABLES Fi nal Result Performing Organization Address [facility] Co de Phone Number [facility] [place] [address] * Magnesium (03/27/2023 9:11 AM FITTER/WELDER) Pathologist [facility] Magnesium 2.0 1.4 - 2.5 mg/dL [facility] Blood 03/27/2023 9:11 AM FITTER/WELDER 03/27/2023 10:13 AM FITTER/WELDER us Stanislaw Goel MD LAB BLOOD ORDERABLES Fi nal Result Performing Organization Address [facility] Co de Phone Number [facility] [place] [address] * (ABNORMAL) Hemoglobin and hematocrit (03/27/2023 9:11 AM FITTER/WELDER) [facility] Hgb 8.3(L) 13.0 - 17.5 g/dL [facility] Hct 25.9(L) 38.9 - 50.3 % [facility] Blood 03/27/2023 9:11 AM FITTER/WELDER 03/27/2023 10:13 AM FITTER/WELDER us Stanislaw Goel MD LAB BLOOD ORDERABLES Fi nal Result Performing Organization Address [facility] Co de Phone Number [facility] [place] [address] * POCT glucose (03/27/2023 8:00 AM FITTER/WELDER) Glucose, POC 138 70 - 199 mg/dL [facility] Blood 03/27/2023 8:00 AM FITTER/WELDER 03/27/2023 8:00 AM FITTER/WELDER us Stanislaw Goel MD LAB POCT ORDERABLES - D EVICE Final Result Performing Organization Address [facility] de Phone Number [facility] [place] [address] * (ABNORMAL) Hemoglobin and hematocrit (03/27/2023 5:51 AM FITTER/WELDER) Pathologist [facility] Hgb 7.9(L) 13.0 - 17.5 g/dL [facility] Hct 23.4(L) 38.9 - 50.3 % [facility] Blood 03/27/2023 5:51 AM FITTER/WELDER 03/27/2023 7:26 AM FITTER/WELDER us Stanislaw Goel MD LAB BLOOD ORDERABLES Fi nal Result Performing Organization Address [facility] de Phone Number [facility] [place] [address] * eGFR (03/26/2023 8:12 PM FITTER/WELDER) Pathologist [facility] eGFR >90 >=60 mL/min/1. 73 m2 [facility] Comment: Interpretive Data Reference Interval Normal ?>/= [...] last reviewed 2020. Blood 03/26/2023 8:12 PM FITTER/WELDER 03/26/2023 8:26 PM FITTER/WELDER us Stanislaw Goel MD LAB BLOOD ORDERABLES Fi nal Result [facility] [place] [address] * (ABNORMAL) CBC without differential (03/26/2023 8:12 PM FITTER/WELDER) WBC 8.8 3.8 - 9.9 K/cumm [facility] Hgb 8.0(L) 13.0 - 17.5 g/dL [facility] Hct 24.1(L) 38.9 - 50.3 % [facility] [facility] Plt 280 150 - 400 K/cumm [facility] MPV 9.0(L) 9.1 - 12.3 fL [facility] RBC 2.54(L) 4.30 - 5.80 M/cumm [facility] MCV 94.9 81.3 - 96.4 fL [facility] MCH 31.5 27.1 - 33.3 pg [facility] MCHC 33.2 32.3 - 35.7 g/dL [facility] RDW CV 13.5 11.1 - 14.9 % [facility] RDW SD 46.0 35.7 - 48.1 fL [facility] NRBC abs 0.00 0.00 - 0.01 K/cumm [facility] Blood 03/26/2023 8:12 PM FITTER/WELDER 03/26/2023 8:26 PM FITTER/WELDER us Stanislaw Goel MD LAB BLOOD ORDERABLES Fi nal Result Performing Organization Address [facility] Co de Phone Number [facility] [place] [address] * Type and screen (03/26/2023 8:12 PM FITTER/WELDER) [facility] ABO Rh A Positive Tam, indirect Negative [facility] Blood 03/26/2023 8:12 PM FITTER/WELDER 03/26/2023 8:35 PM FITTER/WELDER Narrative [facility] - 03/26/2023 9:33 PM FITTER/WELDER Has the patient had Daratumumab or Isatuximab in the past 6 months?->Unknown Stanislaw Goel MD LAB BLOOD BANK TEST ORD ERABLES Final Result Performing Organization Address [facility] Co de Phone Number [facility] [place] [address] * Phosphorus (03/26/2023 8:12 PM FITTER/WELDER) [facility] Phosphorus, pl 3.3 2.3 - 4.5 mg/dL [facility] Blood 03/26/2023 8:12 PM FITTER/WELDER 03/26/2023 8:26 PM FITTER/WELDER us Stanislaw Goel MD LAB BLOOD ORDERABLES Fi nal Result Performing Organization Address [facility] de Phone Number [facility] Department [place] [address] * (ABNORMAL) Basic metabolic panel (03/26/2023 8:12 PM FITTER/WELDER) [facility] Sodium 131(L) 135 - 145 mmol/L [facility] Potassium, pl 4.5 3.3 - 4.9 mmol/L [facility] Chloride 93(L) 97 - 110 mmol/L [facility] CO2 31 22 - 32 mmol/L [facility] Anion gap 7 2 - 15 mmol/L [facility] BUN 23 6 - 25 mg/dL [facility] Creatinine 0.52(L) 0.80 - 1.30 mg/dL [facility] Glucose 112 70 - 199 mg/dL [facility] Comment: Interpretive Data Fasting glucose >/= 126 [...] 2022. Calcium 8.4(L) 8.5 - 10.3 mg/dL [facility] Blood 03/26/2023 8:12 PM FITTER/WELDER 03/26/2023 8:26 PM FITTER/WELDER Stanislaw Goel MD LAB BLOOD ORDERABLES Fi nal Result Performing Organization Address City/[facility]/ZIP Co de Phone Number [facility] [place] [address] * Magnesium (03/26/2023 8:12 PM FITTER/WELDER) [facility] Magnesium 1.9 1.4 - 2.5 mg/dL [facility] Blood 03/26/2023 8:12 PM FITTER/WELDER 03/26/2023 8:26 PM FITTER/WELDER Stanislaw Goel MD LAB BLOOD ORDERABLES Fi nal Result [facility] [place] [address] * (ABNORMAL) Hepatic function panel (03/26/2023 8:12 PM FITTER/WELDER) Bilirubin, total <0.2 0.1 - 1.2 mg/dL [facility] Comment:Reviewed Bilirubin, direct <0.2 0.1 - 0.3 mg/dL [facility] Protein, pl 5.8(L) 6.5 - 8.5 g/dL [facility] Albumin 3.0(L) 3.5 - 5.0 g/dL [facility] Alk phos 74 40 - 130 Units/L [facility] ALT 19 7 - 55 Units/L [facility] AST 40 10 - 50 Units/L [facility] Blood 03/26/2023 8:12 PM FITTER/WELDER 03/26/2023 8:26 PM FITTER/WELDER Stanislaw Goel MD LAB BLOOD ORDERABLES Fi nal Result Performing Organization Address City/[facility]/ZIP Co de Phone Number [facility] [place] [address] * POCT glucose (03/26/2023 5:29 PM FITTER/WELDER) [facility] Glucose, POC 104 70 - 199 mg/dL [facility] Blood 03/26/2023 5:29 PM FITTER/WELDER 03/26/2023 5:29 PM FITTER/WELDER us Stanislaw Goel MD LAB POCT ORDERABLES - D EVICE Final Result Performing Organization Address [facility] Co de Phone Number [facility] [place] [address] * eGFR (03/26/2023 9:52 AM FITTER/WELDER) [facility] eGFR >90 >=60 mL/min/1. 73 m2 [facility] Comment: Interpretive Data Reference Interval Normal ?>/= [...] last reviewed 2020. Blood 03/26/2023 9:52 AM FITTER/WELDER 03/26/2023 10:17 AM FITTER/WELDER Stanislaw Goel MD LAB BLOOD ORDERABLES Fi nal Result Performing Organization Address City/[facility] Co de Phone Number [facility] [place] [address] * Phosphorus (03/26/2023 9:52 AM FITTER/WELDER) [facility] Phosphorus, pl 4.0 2.3 - 4.5 mg/dL [facility] Blood 03/26/2023 9:52 AM FITTER/WELDER 03/26/2023 10:13 AM FITTER/WELDER Stanislaw Goel MD LAB BLOOD ORDERABLES Fi nal Result Performing Organization Address [facility] Co de Phone Number [facility] [place] [address] * (ABNORMAL) Basic metabolic panel (03/26/2023 9:52 AM FITTER/WELDER) [facility] Sodium 131(L) 135 - 145 mmol/L [facility] Potassium, pl 4.6 3.3 - 4.9 mmol/L [facility] Chloride 96(L) 97 - 110 mmol/L [facility] CO2 29 22 - 32 mmol/L [facility] Anion gap 6 2 - 15 mmol/L [facility] BUN 14 6 - 25 mg/dL [facility] Creatinine 0.52(L) 0.80 - 1.30 mg/dL [facility] Glucose 158 70 - 199 mg/dL [facility] Comment: Interpretive Data Fasting glucose >/= 126 [...] 2022. Calcium 8.6 8.5 - 10.3 mg/dL [facility] Blood 03/26/2023 9:52 AM FITTER/WELDER 03/26/2023 10:13 AM FITTER/WELDER us Stanislaw Goel MD LAB BLOOD ORDERABLES Fi nal Result Performing Organization Address City/[facility]/ZIP Co de Phone Number [facility] Department [place] [address] * Magnesium (03/26/2023 9:52 AM FITTER/WELDER) Pathologist [facility] Magnesium 1.8 1.4 - 2.5 mg/dL [facility] Blood 03/26/2023 9:52 AM FITTER/WELDER 03/26/2023 10:13 AM FITTER/WELDER us Stanislaw Goel MD LAB BLOOD ORDERABLES Fi nal Result Performing Organization Address City/[facility]/ZIP Co de Phone Number [facility] [place] [address] * (ABNORMAL) Hepatic function panel (03/25/2023 8:52 PM FITTER/WELDER) [facility] Bilirubin, total 0.2 0.1 - 1.2 mg/dL [facility] Bilirubin, direct <0.2 0.1 - 0.3 mg/dL [facility] Protein, pl 6.4(L) 6.5 - 8.5 g/dL [facility] Albumin 3.1(L) 3.5 - 5.0 g/dL [facility] Alk phos 80 40 - 130 Units/L [facility] ALT 20 7 - 55 Units/L [facility] AST 43 10 - 50 Units/L [facility] Blood 03/25/2023 8:52 PM FITTER/WELDER 03/25/2023 9:56 PM FITTER/WELDER us Stanislaw Goel MD LAB BLOOD ORDERABLES Fi nal Result [facility] Department [place] [address] * eGFR (03/25/2023 8:52 PM FITTER/WELDER) [facility] eGFR >90 >=60 mL/min/1. 73 m2 [facility] Comment: Interpretive Data Reference Interval Normal ?>/= [...] last reviewed 2020. Blood 03/25/2023 8:52 PM FITTER/WELDER 03/25/2023 10:00 PM FITTER/WELDER Stanislaw Goel MD LAB BLOOD ORDERABLES Fi nal Result Performing Organization Address City/[facility] Co de Phone Number [facility] [place] [address] * Phosphorus (03/25/2023 8:52 PM FITTER/WELDER) Phosphorus, pl 3.8 2.3 - 4.5 mg/dL [facility] Blood 03/25/2023 8:52 PM FITTER/WELDER 03/25/2023 9:56 PM FITTER/WELDER Stanislaw Goel MD LAB BLOOD ORDERABLES Fi nal Result Performing Organization Address [facility] de Phone Number [facility] [place] [address] * (ABNORMAL) Basic metabolic panel (03/25/2023 8:52 PM FITTER/WELDER) Sodium 132(L) 135 - 145 mmol/L [facility] Potassium, pl 4.2 3.3 - 4.9 mmol/L [facility] Chloride 97 97 - 110 mmol/L [facility] CO2 29 22 - 32 mmol/L [facility] Anion gap 6 2 - 15 mmol/L [facility] BUN 12 6 - 25 mg/dL [facility] Creatinine 0.50(L) 0.80 - 1.30 mg/dL [facility] Glucose 146 70 - 199 mg/dL [facility] Comment: Interpretive Data Fasting glucose >/= 126 [...] 2022. Calcium 8.4(L) 8.5 - 10.3 mg/dL [facility] Blood 03/25/2023 8:52 PM FITTER/WELDER 03/25/2023 9:56 PM FITTER/WELDER Stanislaw Goel MD LAB BLOOD ORDERABLES Fi nal Result Performing Organization Address [facility] Co de Phone Number [facility] Department [place] [address] * Magnesium (03/25/2023 8:52 PM FITTER/WELDER) Pathologist [facility] Magnesium 2.0 1.4 - 2.5 mg/dL [facility] Blood 03/25/2023 8:52 PM FITTER/WELDER 03/25/2023 9:56 PM FITTER/WELDER Stanislaw Goel MD LAB BLOOD ORDERABLES Fi nal Result Performing Organization Address [facility] Co de Phone Number [facility] Department [place] [address] * (ABNORMAL) CBC without differential (03/25/2023 8:52 PM FITTER/WELDER) Pathologist [facility] WBC 7.2 3.8 - 9.9 K/cumm [facility] Hgb 9.0(L) 13.0 - 17.5 g/dL [facility] Hct 26.9(L) 38.9 - 50.3 % [facility] Plt 240 150 - 400 K/cumm [facility] MPV 9.2 9.1 - 12.3 fL [facility] RBC 2.89(L) 4.30 - 5.80 M/cumm [facility] MCV 93.1 81.3 - 96.4 fL [facility] MCH 31.1 27.1 - 33.3 pg [facility] MCHC 33.5 32.3 - 35.7 g/dL [facility] RDW CV 13.5 11.1 - 14.9 % [facility] RDW SD 45.7 35.7 - 48.1 fL [facility] NRBC abs 0.00 0.00 - 0.01 K/cumm [facility] Blood 03/25/2023 8:52 PM FITTER/WELDER 03/25/2023 9:53 PM FITTER/WELDER us Stanislaw Goel MD LAB BLOOD ORDERABLES Fi nal Result [facility] [place] [address] * XR Abdomen Ap 1 Vw (03/25/2023 5:05 PM FITTER/WELDER) Anatomical Region Laterality Modality Body, Abdomen N/A Computed Radiogr aphy 03/25/2023 6:58 PM FITTER/WELDER Impressions 03/25/2023 7:34 PM FITTER/WELDER A single view of the abdomen is [...] Shelli Ambriz M.D. Narrative 03/25/2023 7:34 PM FITTER/WELDER EXAMINATION: Abdomen, one view. HISTORY: Dobbhoff placement [...] Result * Surgical pathology (03/25/2023 3:29 PM FITTER/WELDER) Tissue (Soft tissue biopsy) 03/25/2023 3:29 PM FITTER/WELDER Comment:Frozen Tissue (Soft tissue biopsy) 03/25/2023 3:58 PM FITTER/WELDER Comment:Permanent Narrative PATHOLOGY [facility] - 03/29/2023 11:31 AM FITTER/WELDER EPIC results best viewed via link to PDF [facility] [place] [address] Note to Patients: This report may contain [...] Gender: ??M : ??1960 (Age: 63) Address: ??[address] [place] [id number] Hospital #: ??[id number] Taken:03/25/2023 Received:03/25/2023 Reported: 03/29/2023 Patient Type: [facility] Inpatient ?? Service: Medical Location: [facility] 0052 Physician(s): ??Rocio Quiroz MD Diagnosis: A. ??Oropharynx, left, biopsy (AFR1) ? 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 ??Oropharynx, left #2, biopsy ? 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 Yahaiar Carter M.D. 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 HPV RNA MANJIT is [...] B1. ??Jar 0. ? dxb/03/25/2023 16:50 PA(s): Logan Sesay Idalmis, PA([facility])CM By this signature, I attest that [...] HPV High Risk test was performed by [facility], [address] [place] [id number]. The performance characteristics of some immunohistochemical stains, fluorescence in-situ hybridization tests and immunophenotyping by flow cytometry cited in this report (if any) were determined by the Surgical Pathology and Flow Cytometry Departments at [facility] as part of an ongoing director of quality improvement program and in compliance with federally mandated [...] Surgical Pathology and Flow Cytometry Departments of [facility]. ??It has not been cleared or approved by the U. S. Food and Drug Administration. IMAGES AND SCANNED DOCUMENTS, IF INCLUDED, ONLY VIEWABLE IN PDF VERSION OF REPORT Rocio Quiroz MD LAB PATHOLOGY ORDERABLES Final Result Performing Organization Address City/[facility]/ZIP Co de Phone Number [facility] 3rd Floor [place], [place] [phone] * (ABNORMAL) Osmolality, blood (03/25/2023 12:40 PM FITTER/WELDER) Pathologist [facility] Osmo 271(L) 275 - 300 mOsm/kg [facility] Blood 03/25/2023 12:4 0 PM FITTER/WELDER 03/25/2023 1:32 PM FITTER/WELDER Stanislaw Goel MD LAB BLOOD ORDERABLES Fi nal Result Performing Organization Address [facility] de Phone Number [facility] Department [place] [address] * (ABNORMAL) Hemoglobin and hematocrit (03/25/2023 12:40 PM FITTER/WELDER) Hgb 8.1(L) 13.0 - 17.5 g/dL [facility] Hct 24.7(L) 38.9 - 50.3 % [facility] Blood 03/25/2023 12:4 0 PM FITTER/WELDER 03/25/2023 1:33 PM FITTER/WELDER Stanislaw Goel MD LAB BLOOD ORDERABLES Fi nal Result Performing Organization Address [facility] Co de Phone Number [facility] [place] [address] * (ABNORMAL) Urinalysis, microscopic only (03/25/2023 7:55 AM FITTER/WELDER) Pathologist [facility] WBC, ur 0-5 0 - 5 /HPF [facility] RBC, ur 0-2 0 - 2 /HPF [facility] Epithelial cells, squamous, ur 1-5 0 - 5 /HPF [facility] Bacteria, ur Trace(A) [facility] Yeast, ur Trace(A) [facility] Mucous, ur Present(A) [facility] Culture Reflex Comment Reflex conditions for urine culture (WBC >10) not met. [facility] Urine 03/25/2023 7:55 AM FITTER/WELDER 03/25/2023 8:18 AM FITTER/WELDER us Winsome Post MD LAB URINE ORDERABLES Final Result Performing Organization Address City/[facility]/ZIP Co de Phone Number [facility] [place] [address] * Sodium, urine, random (03/25/2023 7:55 AM FITTER/WELDER) Pathologist [facility] Sodium, ur 139 mmol/L [facility] Comment: Interpretive Data No reference range established. Current interpretive data was last revised 2018. Urine 03/25/2023 7:55 AM FITTER/WELDER 03/25/2023 8:27 AM FITTER/WELDER us Stanislaw Goel MD LAB URINE ORDERABLES Fi nal Result Performing Organization Address City/[facility]/ZIP Co de Phone Number [facility] [place] [address] * Osmolality, urine (03/25/2023 7:55 AM FITTER/WELDER) Osmo, ur 479 mOsm/kg [facility] Urine 03/25/2023 7:55 AM FITTER/WELDER 03/25/2023 8:27 AM FITTER/WELDER us Stanislaw Goel MD LAB URINE ORDERABLES Fi nal Result Performing Organization Address [facility] Co de Phone Number [facility] Department [place] [address] * (ABNORMAL) Urinalysis reflex to microscopic and culture Urine (03/25/2023 7:55 AM FITTER/WELDER) Color, ur Straw Yellow [facility] Clarity, ur Clear Clear [facility] Specific gravity, ur 1.014 1.003 - 1.030 [facility] pH, urine 7.0 [facility] Comment: Interpretive Data ? Urine pH is affected by diet, medications, systemic acid-base disturbances, and renal tubular function. ??pH may affect urinary stone formation. ??For example, urine pH below 6.0 may help reduce the tendency for calcium phosphate stones and pH greater than 6.0 may reduce the tendency for uric acid stone formation. Source: [facility] Current Interpretive Data was last revised on 2017 Protein, ur ql Negative Negative [facility] Glucose, ur ql Negative Negative [facility] Ketones, ur Negative Negative [facility] Bilirubin, ur Negative Negative [facility] Blood, ur Negative Negative [facility] Urobilinogen, ur <2.0 <2.0 mg/dL [facility] Nitrite, ur Positive(A) Negative [facility] Leukocyte esterase, ur Negative Negative [facility] UA reflex comment Reflex to microscopic UA will be performed. [facility] Urine 03/25/2023 7:55 AM FITTER/WELDER 03/25/2023 8:18 AM FITTER/WELDER us Winsome Post MD LAB MICROBIOLOGY - GENERAL ORDERABLES Final Result Performing Organization Address [facility] Co de Phone Number [facility] Department [place] [address] * eGFR (03/25/2023 6:14 AM FITTER/WELDER) eGFR >90 >=60 mL/min/1. 73 m2 [facility] Comment: Interpretive Data Reference Interval Normal ?>/= [...] last reviewed 2020. Blood 03/25/2023 6:14 AM FITTER/WELDER 03/25/2023 6:48 AM FITTER/WELDER us Celio Bonds MD LAB BLOOD ORDERABLES Iris ortega Result [facility] Department [place] [address] * (ABNORMAL) Basic metabolic panel (03/25/2023 6:14 AM FITTER/WELDER) Sodium 131(L) 135 - 145 mmol/L [facility] Potassium, pl 4.0 3.3 - 4.9 mmol/L [facility] Chloride 99 97 - 110 mmol/L [facility] CO2 28 22 - 32 mmol/L [facility] Anion gap 4 2 - 15 mmol/L [facility] BUN 12 6 - 25 mg/dL [facility] Creatinine 0.49(L) 0.80 - 1.30 mg/dL [facility] Glucose 89 70 - 199 mg/dL [facility] Comment: Interpretive Data Fasting glucose >/= 126 [...] 2022. Calcium 8.3(L) 8.5 - 10.3 mg/dL [facility] Blood 03/25/2023 6:14 AM FITTER/WELDER 03/25/2023 6:48 AM FITTER/WELDER us Celio Bonds MD LAB BLOOD ORDERABLES Iris l Result Performing Organization Address City/[facility]/ZIP Co de Phone Number [facility] Department [place] [address] * (ABNORMAL) Hemoglobin and hematocrit (03/25/2023 6:14 AM FITTER/WELDER) [facility] Hgb 8.6(L) 13.0 - 17.5 g/dL [facility] Hct 25.7(L) 38.9 - 50.3 % [facility] Blood 03/25/2023 6:14 AM FITTER/WELDER 03/25/2023 6:48 AM FITTER/WELDER us Stanislaw Goel MD LAB BLOOD ORDERABLES Fi nal Result [facility] Department [place] [address] * eGFR (03/24/2023 9:13 PM FITTER/WELDER) [facility] eGFR >90 >=60 mL/min/1. 73 m2 [facility] Comment: Interpretive Data Reference Interval Normal ?>/= [...] last reviewed 2020. Blood 03/24/2023 9:13 PM FITTER/WELDER 03/24/2023 10:20 PM FITTER/WELDER us Celio Bonds MD LAB BLOOD ORDERABLES Iris ortega Result [facility] Department [place] [address] * (ABNORMAL) Basic metabolic panel (03/24/2023 9:13 PM FITTER/WELDER) [facility] Sodium 133(L) 135 - 145 mmol/L [facility] Potassium, pl 4.4 3.3 - 4.9 mmol/L [facility] Chloride 100 97 - 110 mmol/L [facility] CO2 29 22 - 32 mmol/L [facility] Anion gap 4 2 - 15 mmol/L [facility] BUN 16 6 - 25 mg/dL [facility] Creatinine 0.50(L) 0.80 - 1.30 mg/dL [facility] Glucose 102 70 - 199 mg/dL [facility] Comment: Interpretive Data Fasting glucose >/= 126 [...] 2022. Calcium 8.5 8.5 - 10.3 mg/dL [facility] Blood 03/24/2023 9:13 PM FITTER/WELDER 03/24/2023 10:20 PM FITTER/WELDER us Celio Bonds MD LAB BLOOD ORDERABLES Iris l Result [facility] [place] [address] * (ABNORMAL) CBC without differential (03/24/2023 9:13 PM FITTER/WELDER) WBC 4.8 3.8 - 9.9 K/cumm [facility] Hgb 8.0(L) 13.0 - 17.5 g/dL [facility] Hct 24.4(L) 38.9 - 50.3 % [facility] Plt 247 150 - 400 K/cumm [facility] MPV 9.2 9.1 - 12.3 fL [facility] RBC 2.58(L) 4.30 - 5.80 M/cumm [facility] MCV 94.6 81.3 - 96.4 fL [facility] MCH 31.0 27.1 - 33.3 pg [facility] MCHC 32.8 32.3 - 35.7 g/dL [facility] RDW CV 14.0 11.1 - 14.9 % [facility] RDW SD 48.4(H) 35.7 - 48.1 fL [facility] NRBC abs 0.00 0.00 - 0.01 K/cumm [facility] Blood 03/24/2023 9:13 PM FITTER/WELDER 03/24/2023 10:21 PM FITTER/WELDER us Stanislaw Goel MD LAB BLOOD ORDERABLES Fi nal Result [facility] [place] [address] * Phosphorus (03/24/2023 9:13 PM FITTER/WELDER) Pathologist [facility] Phosphorus, pl 2.9 2.3 - 4.5 mg/dL [facility] Blood 03/24/2023 9:13 PM FITTER/WELDER 03/24/2023 10:20 PM FITTER/WELDER us Celio Bonds MD LAB BLOOD ORDERABLES Iris l Result Performing Organization Address City/[facility]/ZIP Co de Phone Number [facility] Department [place] [address] * Magnesium (03/24/2023 9:13 PM FITTER/WELDER) Pathologist [facility] Magnesium 2.0 1.4 - 2.5 mg/dL [facility] Blood 03/24/2023 9:13 PM FITTER/WELDER 03/24/2023 10:20 PM FITTER/WELDER us Celio Bonds MD LAB BLOOD ORDERABLES Iris l Result Performing Organization Address City/[facility]/ZIP Co de Phone Number [facility] [place] [address] * (ABNORMAL) Hemoglobin and hematocrit (03/24/2023 3:00 PM FITTER/WELDER) Hgb 8.3(L) 13.0 - 17.5 g/dL [facility] Hct 24.9(L) 38.9 - 50.3 % [facility] Blood 03/24/2023 3:00 PM FITTER/WELDER 03/24/2023 3:36 PM FITTER/WELDER us Stanislaw Goel MD LAB BLOOD ORDERABLES Fi nal Result [facility] [place] [address] * FL Modified Barium Swallow W Video (03/24/2023 1:38 PM FITTER/WELDER) Anatomical Region Laterality Modality Head and Neck N/A Computed Radiogr aphy 03/24/2023 2:42 PM FITTER/WELDER Impressions 03/24/2023 2:43 PM FITTER/WELDER The swallowing mechanism is abnormal; see above [...] Shila Matos M.D. Narrative 03/24/2023 2:43 PM FITTER/WELDER EXAMINATION: MODIFIED BARIUM SWALLOW HISTORY: Dysphagia. TECHNIQUE: [...] agrees with it. Electronically signed by: Shila aMtos M.D. us Stanislaw Goel MD IMG FLUOROSCOPY PROCEDU RES Final Result * DATA CENTER MANAGER Evaluate and Treat (VFSS) (03/24/2023 1:36 PM FITTER/WELDER) Narrative Maida Carvajal, [place] - 03/24/2023 1:36 PM FITTER/WELDER Nadia Stephenson ? 03/24/2023 ??4:06 PM Speech-Language [...] last weekend. He presented to an OSH ([facility] on 03/21/23 where they found a large L oropharyngeal mass on CT neck. He was discharged home with plan to f/u with [facility] ENT outpatient. However earlier today he had another episode of hemoptysis reporting around 1 pint of blood loss so he came to the ER. 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 Plan DATA CENTER MANAGER Frequency of Services during current admission: Discharge from this Service DATA CENTER MANAGER Recommendation (Add'l Services): No further DATA CENTER MANAGER indicated Given nature of dysphagia, DATA CENTER MANAGER not indicated at this time. Notified MD to re-refer as needed throughout treatment course. Next Visit Plan: No further ST warranted Additional Referrals: ENT Discharge Summary Statement If this is the last swallow therapy visit, this serves as the discharge summary. us Stanislaw Goel MD DATA CENTER MANAGER ORDERABLES Final R esult * eGFR (03/24/2023 5:17 AM FITTER/WELDER) eGFR >90 >=60 mL/min/1. 73 m2 [facility] Comment: Interpretive Data Reference Interval Normal ?>/= [...] last reviewed 2020. Blood 03/24/2023 5:17 AM FITTER/WELDER 03/24/2023 6:32 AM FITTER/WELDER us Celio Bonds MD LAB BLOOD ORDERABLES Iris l Result Performing Organization Address City/[facility]/ZIP Co de Phone Number [facility] [place] [address] * Potassium, whole blood (03/24/2023 5:17 AM FITTER/WELDER) Pathologist [facility] Potassium, bld 4.4 3.3 - 4.9 mmol/L [facility] Blood 03/24/2023 5:17 AM FITTER/WELDER 03/24/2023 6:27 AM FITTER/WELDER Celio Bonds MD LAB BLOOD ORDERABLES Iris l Result [facility] [place] [address] * Respiratory pathogen panel Nasopharyngeal (03/24/2023 5:17 AM FITTER/WELDER) [facility] Influenza A RNA Not Detected Not Detected [facility] Influenza B RNA Not Detected Not Detected [facility] RSV RNA Not Detected Not Detected [facility] COVID-19 RNA Not Detected Not Detected [facility] Coronavirus 229E RNA Not Detected Not Detected [facility] Coronavirus HKU1 RNA Not Detected Not Detected [facility] Coronavirus NL63 RNA Not Detected Not Detected [facility] Coronavirus OC43 RNA Not Detected Not Detected [facility] Adenovirus DNA Not Detected Not Detected [facility] Metapneumovirus RNA Not Detected Not Detected [facility] Rhinovirus/Enterov irus RNA Not Detected Not Detected [facility] Parainfluenza 1 RNA Not Detected Not Detected [facility] Parainfluenza 2 RNA Not Detected Not Detected [facility] Parainfluenza 3 RNA Not Detected Not Detected [facility] Parainfluenza 4 RNA Not Detected Not Detected [facility] B. pertussis DNA Not Detected Not Detected [facility] B. parapertussis DNA Not Detected Not Detected [facility] C. pneumoniae DNA Not Detected Not Detected [facility] M. pneumoniae DNA Not Detected Not Detected [facility] Nasopharyngeal 03/24/2023 5: 17 AM FITTER/WELDER 03/24/2023 6:45 AM FITTER/WELDER Narrative [facility] - 03/24/2023 7:38 AM FITTER/WELDER Is the Patient experiencing symptoms consistent with COVID?->No Surveillance testing for transplant patient?->No ??Interpretive Data The Loopcam FilmArray Respiratory Panel (RP2.1) assay is a [...] assay has FDA clearance for testing of MEDICAL RECEPTION swabs. ??The performance of additional specimen types has been assessed by the performing laboratory. ??The performance characteristics of this assay have been determined by [facility] Molecular Infectious Disease Laboratory. Current interpretive data was last revised on 21. Celio Bonds MD LAB MICROBIOLOGY - GENERA L ORDERABLES Final Result [facility] [place] [address] * (ABNORMAL) Basic metabolic panel (03/24/2023 5:17 AM FITTER/WELDER) Sodium 133(L) 135 - 145 mmol/L [facility] Potassium, pl 4.4 3.3 - 4.9 mmol/L [facility] Chloride 101 97 - 110 mmol/L [facility] CO2 27 22 - 32 mmol/L [facility] Anion gap 5 2 - 15 mmol/L [facility] BUN 19 6 - 25 mg/dL [facility] Creatinine 0.48(L) 0.80 - 1.30 mg/dL [facility] Glucose 99 70 - 199 mg/dL [facility] Comment: Interpretive Data Fasting glucose >/= 126 [...] 2022. Calcium 7.9(L) 8.5 - 10.3 mg/dL [facility] Blood 03/24/2023 5:17 AM FITTER/WELDER 03/24/2023 6:32 AM FITTER/WELDER us Celio Bonds MD LAB BLOOD ORDERABLES Iris l Result Performing Organization Address City/[facility]/ZIP Co de Phone Number [facility] [place] [address] * (ABNORMAL) Hemoglobin and hematocrit (03/24/2023 5:17 AM FITTER/WELDER) Pathologist [facility] Hgb 8.3(L) 13.0 - 17.5 g/dL [facility] Hct 24.1(L) 38.9 - 50.3 % [facility] Blood 03/24/2023 5:17 AM FITTER/WELDER 03/24/2023 6:32 AM FITTER/WELDER us Stanislaw Goel MD LAB BLOOD ORDERABLES Fi nal Result Performing Organization Address City/[facility]/ZIP Co de Phone Number [facility] Department [place] [address] * (ABNORMAL) CBC without differential (03/23/2023 10:33 PM FITTER/WELDER) Pathologist [facility] WBC 4.7 3.8 - 9.9 K/cumm [facility] Hgb 8.8(L) 13.0 - 17.5 g/dL [facility] Hct 26.0(L) 38.9 - 50.3 % [facility] Plt 260 150 - 400 K/cumm [facility] MPV 9.1 9.1 - 12.3 fL [facility] RBC 2.83(L) 4.30 - 5.80 M/cumm [facility] MCV 91.9 81.3 - 96.4 fL [facility] MCH 31.1 27.1 - 33.3 pg [facility] MCHC 33.8 32.3 - 35.7 g/dL [facility] RDW CV 13.5 11.1 - 14.9 % [facility] RDW SD 45.7 35.7 - 48.1 fL [facility] NRBC abs 0.00 0.00 - 0.01 K/cumm [facility] Blood 03/23/2023 10:3 3 PM FITTER/WELDER 03/23/2023 11:13 PM FITTER/WELDER us Stanislaw Goel MD LAB BLOOD ORDERABLES Fi nal Result [facility] [place] [address] * (ABNORMAL) Osmolality, blood (03/23/2023 10:28 PM FITTER/WELDER) Osmo 270(L) 275 - 300 mOsm/kg [facility] Blood 03/23/2023 10:2 8 PM FITTER/WELDER 03/23/2023 11:12 PM FITTER/WELDER us Celio Bonds MD LAB BLOOD ORDERABLES Iris l Result [facility] [place] [address] * Magnesium (03/23/2023 10:28 PM FITTER/WELDER) Magnesium 2.1 1.4 - 2.5 mg/dL [facility] Blood 03/23/2023 10:2 8 PM FITTER/WELDER 03/23/2023 11:12 PM FITTER/WELDER us Celio Bonds MD LAB BLOOD ORDERABLES Iris l Result [facility] [place] [place] [address] * Phosphorus (03/23/2023 10:28 PM FITTER/WELDER) Phosphorus, pl 3.8 2.3 - 4.5 mg/dL [facility] Blood 03/23/2023 10:2 8 PM FITTER/WELDER 03/23/2023 11:12 PM FITTER/WELDER us Celio Bonds MD LAB BLOOD ORDERABLES Iris l Result Performing Organization Address City/[facility]/ZIP Co de Phone Number [facility] [place] [address] * Vitamin B12 (03/23/2023 10:28 PM FITTER/WELDER) Vitamin B12 386 230 - 1,250 pg/mL [facility] Blood 03/23/2023 10:2 8 PM FITTER/WELDER 03/23/2023 11:12 PM FITTER/WELDER us Celio Bonds MD LAB BLOOD ORDERABLES Iris l Result [facility] [place] [address] * Iron profile w/ IBC (03/23/2023 10:28 PM FITTER/WELDER) Iron 64 50 - 150 mcg/dL [facility] TIBC 304 250 - 400 mcg/dL [facility] Transferrin saturation 21 20 - 50 % [facility] Blood 03/23/2023 10:2 8 PM FITTER/WELDER 03/23/2023 11:12 PM FITTER/WELDER us Celio Bonds MD LAB BLOOD ORDERABLES Iris l Result Performing Organization Address City/State/[facility] Co de Phone Number [facility] [place] [address] * HIV 1/2 Antibody plus p24 Antigen Blood (03/23/2023 10:28 PM FITTER/WELDER) Pathologist [facility] HIV 1/2 ab + p24 ag Nonreactive Nonreactive [facility] Comment:Nonreactive for HIV- 1 antigen and HIV-1/HIV-2 antibodies. No laboratory evidence of HIV infection. If acute HIV infection is suspected, consider testing for HIV-1 RNA. Current interpretive data was last revised on 21. Blood 03/23/2023 10:2 8 PM FITTER/WELDER 03/23/2023 11:12 PM FITTER/WELDER us Celio Bonds MD LAB MICROBIOLOGY - GENERA L ORDERABLES Final Result Performing Organization Address City/[facility]/ZIP Co de Phone Number [facility] [place] [address] * Ferritin (03/23/2023 10:28 PM FITTER/WELDER) [facility] Ferritin 63 30 - 400 ng/mL [facility] Blood 03/23/2023 10:2 8 PM FITTER/WELDER 03/23/2023 11:12 PM FITTER/WELDER us Celio Bonds MD LAB BLOOD ORDERABLES Iris l Result [facility] [place] [place] [address] * Transfuse RBC (03/23/2023 8:41 PM FITTER/WELDER) Blood us Nannette Soto MD PhD BLOOD TRANSFUSION OR DERABLES Final Result [facility] [place] [address] * Transfuse RBC: 1 Units (03/23/2023 8:41 PM FITTER/WELDER) Blood us Nannette Soto MD PhD BLOOD TRANSFUSION OR DERABLES Final Result * CTA Head Neck W WO Contrast (03/23/2023 5:52 PM FITTER/WELDER) Anatomical Region Laterality Modality Head and Neck N/A Computed Tomogra phy 03/23/2023 6:34 PM FITTER/WELDER Impressions 03/23/2023 7:18 PM FITTER/WELDER Large ulcerative left oropharyngeal neck mass highly suspicious for malignancy such as squamous cell carcinoma involving the left parapharyngeal, rubber curer, submandibular, and sublingual spaces with osseous involvement [...] Todd Gonzales MD Narrative 03/23/2023 7:18 PM FITTER/WELDER EXAMINATION: 1. Computed tomography angiography (CTA) of [...] the left oropharynx extending to the left rubber curer and left submandibular spaces as well as [...] narrowing or filling defects are identified. The [id number] is complete. The anterior and middle cerebral [...] the left oropharynx extending to the left rubber curer and left submandibular spaces as well as [...] narrowing or filling defects are identified. The [id number] is complete. The anterior and middle cerebral arteries are normal. The vertebral arteries are codominant. The basilar artery is normal. The posterior cerebral arteries are normal. There is no aneurysm or vascular malformation identified. No angiographic spot sign. IMPRESSION: Large ulcerative left oropharyngeal neck mass highly suspicious for malignancy such as squamous cell carcinoma involving the left parapharyngeal, rubber curer, submandibular, and sublingual spaces with osseous involvement [...] XR Chest 1 View (03/23/2023 4:46 PM FITTER/WELDER) Anatomical Region Laterality Modality Body, Chest N/A Computed Radiogr aphy 03/23/2023 5:02 PM FITTER/WELDER Impressions 03/23/2023 5:09 PM FITTER/WELDER No comparison available. Hyperinflated lungs. Mildly elevated [...] it. Electronically signed by: Marisol Wolf M.D. Narrative 03/23/2023 5:09 PM FITTER/WELDER EXAMINATION: 1 view chest radiograph Procedure Note [...] Result * POCUS Cardiac (03/23/2023 4:27 PM FITTER/WELDER) Anatomical Region Laterality Modality Other 03/23/2023 4:15 PM FITTER/WELDER Narrative 03/30/2023 6:05 PM FITTER/WELDER Performed by: Malena Rey Cardiac: ?Exam type: [...] the resident's interpretation. I agree withthe findings. Cuba Yoder MD POCUS ORDERABLES Final Resul t * (ABNORMAL) Hemoglobin and hematocrit (03/23/2023 4:12 PM FITTER/WELDER) Hgb 7.6(L) 13.0 - 17.5 g/dL [facility] Hct 22.5(L) 38.9 - 50.3 % [facility] Blood 03/23/2023 4:12 PM FITTER/WELDER 03/23/2023 4:49 PM FITTER/WELDER Cammie Chang MD LAB BLOOD ORDERABLES Final Res ult Performing Organization Address [facility] Co de Phone Number [facility] [place] [address] * Check Sample (03/23/2023 4:12 PM FITTER/WELDER) Pathologist [facility] ABO Rh A Positive HC[facility] OTHER 03/23/2023 4:12 PM FITTER/WELDER 03/23/2023 4:56 PM FITTER/WELDER Result [facility] Cammie Chang MD LAB BLOOD ORDERABLES Final Res ult Performing Organization Address [facility] de Phone Number [facility] [place] [address] * ECG 12-LEAD (03/23/2023 3:38 PM FITTER/WELDER) Narrative [facility] - 03/23/2023 3:38 PM FITTER/WELDER Cuba Yoder MD ? 03/23/2023 ??3:40 PM [...] in the ED Cuba Yoder MD 03/23/23 [id number] us Winsome Post MD ECG ORDERABLES Final Resu lt [facility] * eGFR (03/23/2023 2:44 PM FITTER/WELDER) [facility] eGFR >90 >=60 mL/min/1. 73 m2 [facility] Comment: Interpretive Data Reference Interval Normal ?>/= [...] last reviewed 2020. Blood 03/23/2023 2:44 PM FITTER/WELDER 03/23/2023 2:55 PM FITTER/WELDER Winsome Post MD LAB BLOOD ORDERABLES Final Result [facility] [place] [address] * (ABNORMAL) Differential, auto (03/23/2023 2:44 PM FITTER/WELDER) Neutrophil abs 4.8 1.5 - 6.5 K/cumm [facility] Imm gran abs 0.0 0.0 - 0.1 K/cumm [facility] Lymphocyte abs 0.6(L) 0.8 - 3.3 K/cumm [facility] Monocyte abs 0.6 0.2 - 0.8 K/cumm [facility] Eosinophil abs 0.0 0.0 - 0.5 K/cumm [facility] Basophil abs 0.0 0.0 - 0.1 K/cumm [facility] Neutrophil pct 79.0 % [facility] Comment: Interpretive Data Percent cell count reference ranges are not reported, since discordance with absolute values may lead to misinterpretation of CBC data. Current Interpretive Data was last revised on 2017. Imm gran pct 0.7 % [facility] Comment: Interpretive Data Percent cell count reference ranges are not reported, since discordance with absolute values may lead to misinterpretation of CBC data. Current Interpretive Data was last revised on 2017. Lymphocyte pct 10.4 % [facility] Comment: Interpretive Data Percent cell count reference ranges are not reported, since discordance with absolute values may lead to misinterpretation of CBC data. Current Interpretive Data was last revised on 2017. Monocyte pct 9.3 % [facility] Comment: Interpretive Data Percent cell count reference ranges are not reported, since discordance with absolute values may lead to misinterpretation of CBC data. Current Interpretive Data was last revised on 2017. Eosinophil pct 0.3 % [facility] Comment: Interpretive Data Percent cell count reference ranges are not reported, since discordance with absolute values may lead to misinterpretation of CBC data. Current Interpretive Data was last revised on 2017. Basophil pct 0.3 % [facility] Comment: Interpretive Data Percent cell count reference ranges are not reported, since discordance with absolute values may lead to misinterpretation of CBC data. Current Interpretive Data was last revised on 2017. Blood 03/23/2023 2:44 PM FITTER/WELDER 03/23/2023 2:56 PM FITTER/WELDER us Winsome Post MD LAB BLOOD ORDERABLES Final Result [facility] [place] [address] * Troponin I high-sensitivity series (baseline, 2hr, 4hr, 6hr) (03/23/2023 2:44 PM FITTER/WELDER) Trop I hs 6 <=35 ng/L [facility] Comment: Interpretive Data For further hscTnI resources including the diagnostic algorithm and an aid in interpretation, copy and paste this link: [email or web address] Current Interpretive Data last revised 2019. Blood 03/23/2023 2:44 PM FITTER/WELDER 03/23/2023 2:55 PM FITTER/WELDER Winsome Post MD LAB BLOOD ORDERABLES Final Result Performing Organization Address [facility] [place] [address] * aPTT (03/23/2023 2:44 PM FITTER/WELDER) aPTT 28 28 - 38 sec [facility] Comment: Interpretive Data Heparin therapeutic range: 66.0 - 100.0 seconds. Range based on correlation with therapeutic heparin activity range of 0.3 - 0.7 Units/mL. Current interpretive data was last revised on 2022. Blood 03/23/2023 2:44 PM FITTER/WELDER 03/23/2023 2:54 PM FITTER/WELDER Winsome Post MD LAB BLOOD ORDERABLES Final Result Performing Organization Address [facility] [place] [address] * Protime-INR (03/23/2023 2:44 PM FITTER/WELDER) Pathologist [facility] PT 11.8 10.3 - 13.7 sec [facility] INR 1.04 0.90 - 1.20 [facility] Comment: Interpretive data Oral anticoagulant therapeutic ranges: Venous thromboembolism prophylaxis or treatment: 2.0-3.0 CARDIOLOGY Standard range: 2.0-3.0 High-intensity range: 2.5-3.5 Refer to indication-specific guidelines for appropriate target ranges for prosthetic heart valve replacement. Current interpretive data was last revised on 2019. Blood 03/23/2023 2:44 PM FITTER/WELDER 03/23/2023 2:54 PM FITTER/WELDER Winsome Post MD LAB BLOOD ORDERABLES Final Result Performing Organization Address [facility] de Phone Number [facility] [place] [address] * Type and screen (03/23/2023 2:44 PM FITTER/WELDER) Pathologist [facility] Tam, indirect Negative ABO Rh A Positive [facility] Blood 03/23/2023 2:44 PM FITTER/WELDER 03/23/2023 3:58 PM FITTER/WELDER Narrative [facility] - 03/23/2023 4:46 PM FITTER/WELDER Has the patient had Daratumumab or Isatuximab in the past 6 months?->Unknown Winsome Post MD LAB BLOOD BANK TEST ORDERA BLES Final Result [facility] [place] [address] * (ABNORMAL) Comprehensive metabolic panel (03/23/2023 2:44 PM FITTER/WELDER) [facility] Sodium 127(L) 135 - 145 mmol/L [facility] Potassium, pl 5.2(H) 3.3 - 4.9 mmol/L [facility] Chloride 94(L) 97 - 110 mmol/L [facility] CO2 28 22 - 32 mmol/L [facility] Anion gap 5 2 - 15 mmol/L [facility] BUN 27(H) 6 - 25 mg/dL [facility] Creatinine 0.48(L) 0.80 - 1.30 mg/dL [facility] Glucose 114 70 - 199 mg/dL [facility] Comment: Interpretive Data Fasting glucose >/= 126 [...] 2022. Calcium 8.5 8.5 - 10.3 mg/dL [facility] Bilirubin, total 0.2 0.1 - 1.2 mg/dL [facility] Protein, pl 6.3(L) 6.5 - 8.5 g/dL [facility] Albumin 3.4(L) 3.5 - 5.0 g/dL [facility] Alk phos 73 40 - 130 Units/L [facility] ALT 19 7 - 55 Units/L [facility] AST 38 10 - 50 Units/L [facility] Blood 03/23/2023 2:44 PM FITTER/WELDER 03/23/2023 2:55 PM FITTER/WELDER us Winsome Post MD LAB BLOOD ORDERABLES Final Result [facility] [place] [address] * (ABNORMAL) CBC with auto differential (03/23/2023 2:44 PM FITTER/WELDER) [facility] WBC 6.0 3.8 - 9.9 K/cumm [facility] Hgb 7.9(L) 13.0 - 17.5 g/dL [facility] Hct 23.3(L) 38.9 - 50.3 % [facility] Plt 247 150 - 400 K/cumm [facility] MPV 8.8(L) 9.1 - 12.3 fL [facility] RBC 2.51(L) 4.30 - 5.80 M/cumm [facility] MCV 92.8 81.3 - 96.4 fL [facility] MCH 31.5 27.1 - 33.3 pg [facility] MCHC 33.9 32.3 - 35.7 g/dL [facility] RDW CV 12.7 11.1 - 14.9 % [facility] RDW SD 43.0 35.7 - 48.1 fL [facility] NRBC abs 0.00 0.00 - 0.01 K/cumm [facility] Blood 03/23/2023 2:44 PM FITTER/WELDER 03/23/2023 2:56 PM FITTER/WELDER us Winsome Post MD LAB BLOOD ORDERABLES Final Result Performing Organization Address City/[facility] Co de Phone Number [facility] [place] [address] * Prepare RBC: 1 Units (03/23/2023 2:33 PM FITTER/WELDER) Product code [id number] Unit Number [id number] [facility] Product Blood Type APOS [facility] Dispense Status PRESUMED TRANSFUSED [facility] Blood 03/23/2023 2:33 PM FITTER/WELDER 03/23/2023 2:33 PM FITTER/WELDER Narrative [facility] - 03/24/2023 12:47 AM FITTER/WELDER Are special requirements needed? (All products are leukoreduced and CMV- safe)- >No Donor Source->[employer] Date required:-[id number] LRRBC # of [id number] Reasons:-Active bleeding, Hgb <8 g/dL} us Winsome Post MD BLOOD BANK PRODUCT ORDERAB LES Final Result Performing Organization Address [facility] Co de Phone Number [facility] [place] [address] documented in this encounter Visit Diagnoses Diagnosis Oral mass- Primary Oral mass Anemia, unspecified type Acute blood loss anemia Acute posthemorrhagic anemia 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) Malignant neoplasm of head, face, and neck Cancer cachexia (CMS/HCC) (HCC) Respiratory failure with hypoxia, unspecified chronicity (HCC) Moderate malnutrition (CMS/HCC) Oral mass documented in this encounter Admitting Diagnoses Diagnosis [...] Indications: Fever, PainIndications:Fever,Pain Given 03/29/2023 4:49 AM FITTER/WELDER 650 mg Given 03/29/2023 12:09 AM FITTER/WELDER 650 mg Given 03/28/2023 2:18 PM FITTER/WELDER 650 mg Carrier Fluids for Secondary Infusion - 0.9% Sodium Chloride 30 mL, intravenous, As needed, For priming tubing and/or flushing, Starting on Tue03/29/23 at 1143, Pre-Procedure (IR), 0-250 ml/hr to flush line after IV infusions when no maintenance IV ordered. Infuse 30mL at the same rate as the secondary infusion. Run as primary IV, not intended for KVO. escitalopram (LEXAPRO) 1 mg/mL oral solution 20 mg 20 mg, feeding tube, Daily, First dose on Tue03/30/23 at 1430 Given 03/31/2023 8:16 AM FITTER/WELDER 20 mg levoFLOXacin (LEVAQUIN) tablet 750 mg 750 mg, feeding tube, Every 24 hours, First dose (after last modification) on Tue04/01/23 at 0300, For 5 doses, Give 2 hrs before or 2 hrs after MVI, antacids, or other products containing sucralfate, magnesium, aluminum, iron, or zinc. May be taken without regard to meals., Indications: Pneumonia, Aspiration, Skin/Soft Tissue InfectionIndications:Pneumonia, Aspiration,Skin/Soft Tissue Infection lisinopriL (PRINIVIL,ZESTRIL) tablet 10 mg 10 mg, feeding tube, Daily, First dose (after last modification) on Tue03/31/23 at 0900, Indications: hypertensionIndications:hypertension Given 03/31/2023 8:17 AM FITTER/WELDER 10 mg gmbpldtk-zsp-budxbjn gluconate (CENTRUM) 0.6 mg iron/mL oral liquid 15 mL 15 mL, feeding tube, Daily, First dose on Tue03/30/23 at 1430 Given 03/31/2023 9:42 AM FITTER/WELDER 15 mL Given 03/30/2023 2:51 PM FITTER/WELDER 15 mL nicotine (NICODERM CQ) 14 mg patch 24 hour 1 patch 1 patch, transdermal, Administer over 24 Hours, Daily, First dose on Tue03/23/23 at 2315, Apply a new patch every 24 hours to a clean, dry, hairless site on the upper arm or hip. Rotate site. Medication Applied 03/31/2023 9:42 AM FITTER/WELDER 1 patch Right Shoulder Medication Applied 03/30/2023 8:05 AM FITTER/WELDER 1 patch Left Shoulder Medication Applied 03/29/2023 10:13 AM FITTER/WELDER 1 patch Right Shoulder nortriptyline (PAMELOR) 2 [...] 1348, Indications: PainIndications:Pain Given 03/31/2023 8:16 AM FITTER/WELDER 5 mg Given 03/30/2023 8:32 PM FITTER/WELDER 5 mg Given 03/30/2023 3:14 PM FITTER/WELDER 5 mg oxymetazoline (AFRIN) 0.05 % nasal spray As needed, Starting on Tue03/25/23 at 1503, Intra-Op Given 03/25/2023 3:03 PM FITTER/WELDER 1 Application Surgical Site polyethylene glycol (MIRALAX) packet 17 g 17 g, feeding tube, Daily, First dose (after last modification) on Tue03/31/23 at 0900, Indications: constipationIndications:con stipation Given 03/31/2023 9:42 AM FITTER/WELDER 17 g ramelteon (ROZEREM) tablet 8 mg 8 mg, oral, Nightly PRN, sleep, Starting on Tue03/23/23 at 2148, Indications: Sleep-Onset InsomniaIndications:Sleep-O nset Insomnia Given 03/26/2023 7:59 PM FITTER/WELDER 8 mg Given 03/25/2023 8:42 PM FITTER/WELDER 8 mg Given 03/23/2023 10:15 PM FITTER/WELDER 8 mg sodium chloride (OCEAN) 0.65 % nasal spray 1 spray 1 spray, each nostril, Every 2 hours PRN, congestion, rhinitis, Starting on Tue03/30/23 at 1357 sodium chloride 0.9% flush 0.5-20 mL 0.5-20 mL, intra-catheter, Every 8 hours scheduled, First dose on Tue03/23/23 at 2230, Flush volume based on line type and size. Given 03/31/2023 5:51 AM FITTER/WELDER 10 mL Given 03/30/2023 8:32 PM FITTER/WELDER 10 mL Given 03/30/2023 1:07 PM FITTER/WELDER 10 mL sodium chloride 0.9% flush 0.5-20 mL 0.5-20 mL, intra-catheter, Every 8 hours scheduled, First dose on Tue03/29/23 at 1400, Pre-Procedure (IR), Flush volume based on line type and size. Given 03/31/2023 5:51 AM FITTER/WELDER 10 mL Given 03/30/2023 8:33 PM FITTER/WELDER 10 mL Given 03/30/2023 1:07 PM FITTER/WELDER 10 mL sodium chloride 0.9% flush 0.5-20 mL 0.5-20 mL, intra-catheter, As needed, line care, Starting on Tue03/29/23 at 1143, Pre-Procedure (IR), Flush volume based on line type and size. Flush before and after each use. sodium chloride 0.9% irrigation As needed, Starting on Tue03/25/23 at 1504, Intra-Op Given 03/25/2023 3:04 PM FITTER/WELDER 1,000 mL Surgical Site documented in this encounter Discontinued Medications Medication [...] Recently Administered Medications Times are shown in FITTER/WELDER. Scheduled Medication Order 03/29/2023 03/30/2023 03/31/2023 cefTRIAXone (ROCEPHIN) 1,000 mg/10 mL in sterile water (premix) 1,000 mg (CANCELED) 1,000 mg, intravenous, at 600 mL/hr, Administer over 1 Minutes, Every 24 hours scheduled, First dose on Tue03/30/23 at 1145, For 5 days, Indications: Pneumonia, Aspiration, PEG exchange 1347 (Given - Provider: Gretchen Tao, RN) cephalexin (KEFLEX) capsule 500 mg (CANCELED) 500 mg, oral, 2 times daily, First dose on Tue03/29/23 at 1015, For 5 days, Indications: PEG exchange 1013 (Hold - Provider: Gretchen Tao RN - Reason: See Provider Order - Comment: see notes)2112 (Given - Provider: Ruchi Fan) 0802 (Given - Provider: Gretchen Tao RN) escitalopram (LEXAPRO) 1 mg/mL oral solution 20 mg 20 mg, feeding tube, Daily, First dose on Tue03/30/23 at 1430 1430 (Due) 0816 (Given - Provider: Daniela Pardo, ANGELITA) escitalopram (LEXAPRO) tablet 20 mg (CANCELED) 20 [...] - Provider: Gretchen Tao RN - Comment: made MD aware, see notes) 0800 (Given - Provider: [...] 0816 (Given - Provider: Daniela Pardo RN) kozoolhm-kpx-zzogwuo gluconate (CENTRUM) 0.6 mg iron/mL oral liquid 15 mL 15 mL, feeding tube, Daily, First dose on Tue03/30/23 at 1430 1451 (Given - Provider: Gretchen Tao RN) 0942 (Given - Provider: Daniela Pardo RN) multivitamin with folic acid 400 mcg tablet 1 tablet (CANCELED) 1 tablet, oral, Daily, First dose on Tue03/25/23 at 1415 1012 (Given - Provider: Gretchen Tao RN - Comment: made aware. see notes) 0805 (Given - Provider: [...] RN) 0942 (Medication Applied - Provider: Daniela Pardo, ANGELITA)0947 (Canceled Entry - Provider: Daniela Pardo RN)0948 [...] Comment: duplicate)1449 (Given - Provider: Gretchen Tao RN)221 (Not Given - Provider: Ruchi Fan - Reason: Other - Comment: duplicate) 0608 (Not Given - Provider: Ruchi Fan - Reason: Other - Comment: duplicate)130 (Given - Provider: Gretchen Tao RN)2031 (Given - Provider: Iliana Sampson) 0551 (Given - Provider: Iliana Sampson)1304 (Canceled Entry - Provider: Daniela Pardo RN) sodium chloride 0.9% flush 0.5-20 mL (CANCELED) 0.5-20 mL, intra-catheter, Every 8 hours scheduled, First dose on Tue03/28/23 at 0800, Pre-Procedure (IR), Flush volume based on line type and size. 0451 (Not Given - Provider: Ruchi Fan - Reason: Other - Comment: duplicate)144 (Given - Provider: Gretchen Tao RN)2214 (Not Given - Provider: Ruchi Fan - Reason: Other - Comment: duplicate) 0608 (Not Given - Provider: Ruchi Fan - Reason: Other - Comment: duplicate) sodium chloride 0.9% flush 0.5-20 mL 0.5-20 mL, intra-catheter, Every 8 hours scheduled, First dose on Tue03/29/23 at 1400, Pre-Procedure (IR), Flush volume based on line type and size. 1449 (Given - Provider: Gretchen Tao RN)2112 (Given - Provider: Ruchi Fan) 0608 (Given - Provider: Ruchi aFn)1307 (Given - Provider: Gretchen Tao RN)2032 (Given - Provider: Iliana Sampson) 0551 (Given - Provider: Iliana Sampson)1304 (Canceled Entry - Provider: Daniela Pardo RN) thiamine (VITAMIN B1) tablet 100 mg 100 mg, oral, Daily, First dose on Tue03/25/23 at 1415, For 7 doses 1012 (Hold - Provider: Gretchen Tao RN - Reason: See Provider Order - Comment: see notes) 0800 (Given - Provider: Gretchen Tao RN) 0942 (Given - Provider: Daniela Pardo RN) PRN Medication Order 03/29/2023 03/30/2023 03/31/2023 acetaminophen [...] 1 dose 0920 (Given - Provider: Adam Ibanez, RT) lidocaine (ASPERCREME) 4 % patch 1 [...] Indications: Pain 1204 (Given - Provider: Gretchen Tao, ANGELITA)1640 (Given - Provider: Gretchen Tao RN)2114 (Given [...] size. Flush before and after each use. 2215 (Given - Provider: Ruchi Fan) sodium chloride [...] levoFLOXacin (LEVAQUIN) tablet 750 mg 3 03/30/2023 cefTRIAXone (ROCEPHIN) 1,000 mg/10 mL in sterile water (premix) 1,000 mg 1 03/30/2023 escitalopram (LEXAPRO) 1 mg/ mL oral solution 20 mg 1 03/30/2023 fludeoxyglucose F-18 (FDG) i njection 10 millicurie 1 03/30/2023 lisinopriL (PRINIVIL,ZESTRIL) tablet 10 mg 2 03/30/2023 03/23/2023 metroNIDAZOLE (FLAGYL) tablet 500 mg 1 03/11 bglmybnv-smv-zqqrzfk glucona te (CENTRUM) 0.6 mg iron/mL oral liquid 15 mL 1 03/30/2023 nortriptyline (PAMELOR) 2 mg /mL oral solution 30 mg 1 03/30/2023 oxyCODONE (ROXICODONE) 1 mg/ mL oral solution 5 mg 1 03/30/2023 polyethylene glycol (MIRALAX) packet 17 g 3 03/30/2023 03/23/2023 sodium chloride (OCEAN) 0.65 % nasal spray 1 spray 1 03/30/2023 Carrier Fluids for Secondary Infusion - 0.9% Sodium Chloride 4 03/29/2023 03/23/2023 ceFAZolin (ANCEF) 1 gram/10 mL in sterile water (premix) 1 03/29/2023 cephalexin (KEFLEX) capsule 500 mg 1 2023 fentaNYL (SUBLIMAZE) preserv ative free injection 4 03/29/2023 03/28/2023 lidocaine PF (XYLOCAINE) 10 mg/mL (1 %) preservative free injection 1 03/29/2023 midazolam (VERSED) 1 mg/mL injection 4 03/1103/28/2023 sodium chloride 0.9% flush 0.5-20 mL 7 03/1103/23/2023 sodium chloride 0.9% infusion 3 03/29/2023 03/24/2023 sodium zirconium cyclosilica te (LOKELMA) packet 10 g 1 03/29/2023 glucagon injection 1 03/28/2023 ioversoL (OPTIRAY 350) injection 1 03/28/19 24 lidocaine (XYLOCAINE) 10 mg/ mL (1 %) injection 1 03/28/2023 folic acid (FOLVITE) tablet 1 mg 1 03/25/19 24 HYDROmorphone (DILAUDID) injection 0.2 mg 1 03/25/2023 Lactated Ringer's (LR) infusion 3 4 03/24/2023 multivitamin with folic acid 400 mcg tablet 1 tablet 1 03/25/2023 pyridoxine (VITAMIN B-6) tablet 100 mg 1 thiamine (VITAMIN B1) tablet 100 mg 1 03/25 acetaminophen (TYLENOL) tablet 650 mg 1 benzocaine (HURRICAINE) 20 % mouth spray 1 spray 1 03/23/2023 escitalopram (LEXAPRO) tablet 20 mg 1 03/23 ioversoL (OPTIRAY 350) syringe 100 mL 1 lidocaine (ASPERCREME) 4 % patch 1 patch 1 03/23/2023 nicotine (NICODERM CQ) 14 mg patch 24 hour 1 patch 1 03/23/2023 nortriptyline (PAMELOR) capsule 30 mg 1 ondansetron (ZOFRAN) injection 4 mg 1 03/23 ondansetron ODT (ZOFRAN-ODT) disintegrating tablet 4 mg 1 03/23/2023 oxyCODONE (ROXICODONE) tablet 5 mg 1 2023 ramelteon (ROZEREM) tablet 8 mg 1 sodium chloride 0.9% bolus 1,000 mL 1 03/23 sodium chloride 0.9% IVPB 0-250 mL 1 2023 Lab Orders Without Results Count Last Ordered D ate First Ordered Date MAGNESIUM 1 03/23/2023 OSMOLALITY, BLOOD 1 03/23/2023 PHOSPHORUS 1 03/23/2023 General Supply Count Last Ordered Date First Or dered Date OXYGEN 1 03/31/2023 Nursing Count Last Ordered Date First Orde red Date SKIN PREP 1 03/29/2023 VOID SNACK FOODS MIXER OPERATOR TO OR 1 03/29/2023 NURSING COMMUNICATION [...] Suspected Comment:Completed 03/29/2023 03/29/2023 03/29/2023 11:34 AM FITTER/WELDER documented as of this encounter Care Teams Project Associate Relationship Specialty Start Date End Date Jorge Espinosa PA [address] [place], [place] [id number] PCP - General Internal Medicine 03/21/23 03/30/23 documented as of this encounter
--- OUTSIDE RECORDS SUMMARY | 2024-02-15 13:41 | XMS_ITS | Encounter Summary ---
Author Organization [facility] Address [address] [place] [address] Phone Care Team Providers Care Reel Stripper Name Role Phone Jorge Espinosa Primary Care Provider + Encounter Details Date Type Department Care Team (Late st Contact Info) Description 2023 Telephone [facility] Oncology [address] 7[address] [place] [address] [place] [address] Sara Vieyra RMA Social History Tobacco Use Types Packs/Day Years Used Date Smoking Tobacco: Never Assessed Personal Safety Answer Date Recorded Have you ever been in or are you currently in a harmful physical or emotional relationship or is someone making you feel afraid or unsafe? Denies 03/23/2023 Sex and Gender Information Value Date Recorded Sex Assigned at Not on file Legal Sex Male 11:50 AM BUCKET HOOKER Gender Identity Not on file Sexual Orientation Not on file documented as of this encounter Miscellaneous Notes * Telephone Encounter - Sara Vieyra RMA - 2023 12:24 PM BUCKET HOOKER The patient's daughter Shirley called inquiring about a possible appointment for her father. I informed her that [facility] is not contracted with his ethority Community Plan. She is going to call his insurance company to see if they have any plans that he can switch to that will be contracted. She will call me back. ET HOOKER documented in this encounter Plan of Treatment Not on file documented as of this encounter Visit Diagnoses Not on filedocumented in this encounter Care Teams Reel Stripper Relationship Specialty Start Date End Date Jorge Espinosa PA [address] [place] [address] PCP - General Internal Medicine 03/21/23 03/30/23 documented as of this encounter
--- OUTSIDE RECORDS SUMMARY | 2024-02-15 13:41 | XMS_ITS | Encounter Summary ---
Author Organization [facility] Address [address] [place] [address] Care Team Providers Care Wood Tile Installation Helper Name Role Phone Jorge Espinosa Primary Care Provider + Reason for Visit * Auth/Cert (Routine) Specialty Diagnoses / Procedures Referred By Yasmin t Referred To Contact Diagnoses Oral mass OROPHARYNGEAL MASS WITH BLEEDING Procedures NA Referral ID Status Reason Start Date Expiration Date Visits Re quested Visits Authorized [id number] 1 1 Encounter Details Date Type Department Care Team (Latest Contact Info) Description 03/24/2023 1:26 PM FRUIT PRESERVER - 03/24/2023 11:59 PM FRUIT PRESERVER Hospital Encounter [facility] Radiology [address] [place] [address] Discharge Disposition: Discharge to home or self [...] on file Legal Sex Male 11:50 AM FRUIT PRESERVER Gender Identity Not on file Sexual Orientation [...] 1 tablet (10 mg total) daily 03/31/2023 gbjdebxv-pyq-dtfbat s gluconate (CENTRUM) 0.6 mg iron/mL liquid [...] regard to meals. 4 tablet 04/01/2023 4 escitalopram (LEXAPRO) 20 mg tabletIndications:A nxiety with [...] Procedure Name Priority Date/Time Associated Diagnosis Comments FL MODIFIED BARIUM SWALLOW W VIDEO IP Routine 03/24/2023 1:38 PM FRUIT PRESERVER documented in this encounter Visit Diagnoses Not on filedocumented in this encounter Administered Medications Inactive Administered Medications - up to 3 most recent administrations Medication Order MAR Action Action Date Dose Rate Site barium sulfate (VARIBAR PUDDING) 40 % (w/v), 30% (w/w) pudding oral, Once in imaging, contrast, Starting on Tabitha 03/24/23 at 1341, For 1 dose, Pre-Op/Floor Contrast Given 03/24/2023 1:41 PM FRUIT PRESERVER 5 mL barium sulfate (VARIBAR THIN LIQUID) 81 % (w/w) thin liquid oral, Once in imaging, contrast, Starting on Tabitha 03/24/23 at 1339, For 1 dose, Pre-Op/Floor Contrast Given 03/24/2023 1:39 PM FRUIT PRESERVER 35 mL documented in this encounter Care Teams Wood Tile Installation Helper Relationship Specialty Start Date End Date Jorge Espinosa PA [address] [place] [address] PCP - General Internal Medicine 03/21/23 03/30/23 documented as of this encounter
== END 2024-02-08 14:57 | disposition left against medical advice (07) ==
DX: R11.10 Vomiting, unspecified (principal)
CPT/HCPCS: 99199

== ENCOUNTER 2024-04-17 06:19 | Emergency (ER) | payer MEDICARE, MEDICAID, SELFPAY ==
--- NOTE | ~2024-04-17 | CT_ITS ---
EXAMINATION: CT cervical spine wo con DATE: 04/17/2024 08:00 INDICATION: Neck injury. TECHNIQUE: Computed tomography (CT) of the cervical spine was performed without intravenous contrast. Automated exposure control and iterative reconstruction technique were employed. The dose-length pro duct was 149.86 mGy-cm. COMPARISON: CT neck 03/23/2023 FINDINGS: There is mild emphysema. Partially visualized is a mass involving the pharynx and base of t ongue. There are bilateral otomastoid effusions. There is 5 degrees dextrocurvature of cervical spine . There is 2 mm anterolisthesis of C3 on C4, C4 on C5, and C5 on C6. Vertebral body heights are jael l. There is severely decreased disc height at C5-C6 and C6-C7. The following disc levels are specific ally discussed: C2-C3: There is severe bilateral uncovertebral joint osteoarthritis. There is severe bilateral facet joint osteoarthritis. There is mild right and moderate left neural foraminal stenosis. There is mild central canal stenosis. C3-C4: There is moderate right and severe left uncovertebral joint osteoarthritis. There is severe bi lateral facet joint osteoarthritis. There is moderate bilateral neural foraminal stenosis. There is m ild central canal stenosis. C4-C5: There is severe bilateral uncovertebral joint osteoarthritis. There is severe bilateral facet joint osteoarthritis. There is mild right and moderate left neural foraminal stenosis. There is mild central canal stenosis. C5-C6: There is severe bilateral uncovertebral joint osteoarthritis. There is severe bilateral facet joint osteoarthritis. There is mild bilateral neural foraminal stenosis. There is mild central canal stenosis. C6-C7: There is severe bilateral uncovertebral joint osteoarthritis. There is severe bilateral facet joint osteoarthritis. There is mild right and moderate left neural foraminal stenosis. There is mild central canal stenosis. C7-T1: There is no uncovertebral joint osteoarthritis. There is severe right and mild left facet join t osteoarthritis. There is no neural foraminal stenosis. There is no central canal stenosis. IMPRESSION: 1. No fracture. 2. Severe cervical spondylosis. 3. 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 Reviewed, dictated and finalized at location B. IMPRESSION: 1. No fracture. 2. Severe cervical spondylosis. 3. Partially visualized mass involving the pharynx and base of tongue, consiste nt with primary malignancy.
--- NOTE | ~2024-04-17 | CT_ITS ---
CT ANGIOGRAM NECK AND HEAD History: Found down. Technique: Axial noncontrast imaging of the brain was performed. Serial spiral axial images through t he head and neck were then obtained during arterial phase IV injection of 100 cc of Omnipaque 350. 3- D postprocessing and MIP images were then reconstructed on the remote workstation. Dose reduction deandra hnique was used on this scan by utilizing automated exposure control and iterative reconstruction deandra hnique. The dose-length product (DLP) was 1028.11 mGy-cm. CTA neck findings: Bilateral common carotid, internal carotid, external carotid arteries are patent. There is extensive mixed soft and calcified plaque along the common carotid arteries bilaterally, wi thout stenosis, left worse than right. Calcified plaque at the proximal left internal carotid artery results in low-grade, 10% stenosis. There is calcified plaque at the proximal right internal carotid artery, resulting in focal 50-60% stenosis. No large vessel occlusion or aneurysm. The proximal right internal carotid artery demonstrates 50-60% stenosis relative to the normal distal artery lumen diam eter. The proximal left internal carotid artery demonstrates 10% stenosis relative to the normal dist al artery lumen diameter. There is moderate to advanced emphysema at the lung apices. CTA head findings: Distal vertebral arteries, basilar artery, and posterior cerebral arteries are pat ent. Distal internal carotid arteries, middle cerebral arteries, and anterior cerebral arteries are p atent. No large vessel occlusion or stenosis. There is enhancement of the 9 x 4 mm hyperdense focus s een on noncontrast CT imaging, which could reflect focally prominent enhancing choroid plexus at the temporal horn of the right lateral ventricle. Axial noncontrast imaging of the brain demonstrates a mildly hyperdense, probable extra-axial mass ex tending from the right cavernous sinus region along the medial border the anterior right temporal lob e, encasing the distal right internal carotid artery at the precavernous portion. Lesion measures jermaine roximately 2.8 x 2.0 cm in transverse dimensions. There is a separate focal 9 x 4 mm hyperdensity [place] r the temporal horn of the right lateral ventricle (axial noncontrast image 27). The ventricles and s ubarachnoid spaces otherwise are minimally prominent. No mass effect or midline shift. No acute infar ct evident. There is mild left maxillary sinus disease and left ethmoid sinus disease. Bilateral mast oid effusions are present. Impression: 50-60% stenosis of the proximal right interlobar artery. 10% stenosis of proximal left internal carotid artery. 2.8 x 2.0 cm somewhat irregular mildly hyperdense mass at the right skull base region, statistically most likely meningioma. Pre and postcontrast MR should be considered to further evaluate. Probable focally prominent enhancing choroid plexus at the temporal horn of the right lateral ventric le, as detailed above. Further evaluation with MRA of the head could be considered to further exclude aneurysm. Reviewed, dictated and finalized at location . Impression: 50-60% stenosis of the proximal right interlobar artery. 10% stenosis of proximal left internal carotid artery. 2.8 x 2.0 cm somewhat irregular mildly hyperdense mass at the right skull base region, statistically most likely meningioma. Pre and postcontrast MR should be considered to further evaluate. Probable focally prominent enhancing choroid plexus at the temporal horn of the right lateral ventricle, as detailed above. Further evaluation with MRA of the head could be considered to further exclude aneurysm.
--- NOTE | ~2024-04-17 | XR_ITS ---
EXAMINATION: XR chest 1V DATE: 04/17/2024 08:03 INDICATION: Syncope and collapse. TECHNIQUE: A single frontal view of the chest was obtained on 2 radiographs. COMPARISON: Chest 2 views 03/23/2023 FINDINGS: There is mild atelectasis at left lung base. No pleural effusion or pneumothorax. The heart size is normal. IMPRESSION: 1. Mild atelectasis at left lung base. Reviewed, dictated and finalized at location B.
[2024-04-17 06:17] VITALS: BP 188/72; PULSE 90; RESP 21; TEMP 36.8; O2SAT 97
--- NOTE | 2024-04-17 06:21 | ECG_ITS ---
Test Date: 2024-04-17 06:24:42 Measurements Intervals Jackson Rate: 83 P: 45 OH: 171 QRS: -48 QRSD: 134 T: 119 QT: 394 QTc: 464 Interpretive Statements SINUS RHYTHM POSSIBLE LEFT ATRIAL ENLARGEMENT [-0.1mV P WAVE IN V1/V2] INTRAVENTRICULAR CONDUCTION DELAY [130+ ms QRS DURATION] POSSIBLE LEFT VENTRICULAR HYPERTROPHY [VOLTAGE CRITERIA PLUS LAE OR QRS WIDENING] No previous ECG available for comparison Electronically Signed On 04-17-2024 14:52:57 CDT by Ld Bryant M.D.
[2024-04-17 06:38] LABS: Basophils Percent Auto 0.2 % (0.2-1.2); Eosinophils Percent Auto 0.2 % (0-4.4); Hematocrit 38.1 % (42.0-52.0); Hemoglobin 13.2 g/dL (14.0-18.0); Immature Granulocyte Absolute 0.06 K/mm3 (0.00-0.031); Immature Granulocyte Percent A 0.6 % (0-0.5); Lymphocytes Absolute Auto 0.57 K/mm3 (0.9-3.2); Lymphocytes Percent Auto 5.9 % (18.3-44.2); Mean Corpuscular HGB Conc 34.6 g/dl (32-36); Mean Corpuscular Volume 83.7 fl (80-100); Mean Platelet Volume 8.9 fl (7.4-10.4); Monocytes Absolute Auto 1.5 K/mm3 (0.1-0.6); Monocytes Percent Auto 15.1 % (2.6-8.5); Neutrophils Absolute Auto 7.5 K/mm3 (1.3-6.7); Platelet Count Result 245 k/mm3 (150-375); Red Blood Count 4.55 M/mm3 (4.6-6.20); Red Cell Distribution Width 15.5 % (11.5-14.5); White Blood Count 9.6 K/mm3 (4.5-10.0)
[2024-04-17 07:03] LABS: Alanine Aminotransferase 65 U/L (6-50); Albumin Level 3.4 g/dL (3.5-5.1); Alkaline Phosphatase 106 U/L (38-126); Anion Gap 4 mmol/L (4-12); Aspartate Amino Transferase 156 U/L (17-59); Bilirubin,Total 0.9 mg/dL (0.2-1.3); Blood Urea Nitrogen 19 mg/dL (9-20); Calcium 8.3 mg/dL (8.4-10.2); Carbon Dioxide 34 mmol/L (22-30); Chloride 77 mmol/L (98-107); Estimated CRCL calculation 120 ml/min; Estimated Glomerular Filt Rate > 60; Glucose 101 mg/dL (65-110); Potassium 4.1 mmol/L (3.4-5.0); Sodium 115 mmol/L (137-145)
[2024-04-17 07:11] LABS: Influenza A QL RT-PCR Negative (Negative); Influenza B QL RT-PCR Negative (Negative); RSV RNA, RT-PCR Negative (Negative); SARS-CoV-2 RNA PCR Negative (Negative)
--- OUTSIDE RECORDS SUMMARY | 2024-04-17 07:26 | XMS_ITS | Clinical Summary ---
Author Organization [facility] Address [address] [place] [address] Care Team Providers Care Environmental Solutions Engineer Name Role Phone Jorge Espinosa Primary [...] 1 tablet (10 mg total) daily 4 Active nortriptyline (PAMELOR) solution 10 mg/5 mL Administer per tube 15 mL (30 mg total) nightly as needed (sleep) 473 mL 4 Active mlzvvbqx-qcp-vgdfr us gluconate (CENTRUM) 0.6 mg iron/mL liquid [...] cN2, cM0, p16+) - Unsigned Cancer cachexia 03/30/2023 Moderate malnutrition 03/25/2023 Oral mass 03/23/2023 Surgical History Surgery Date Site/Laterality Comments TONSILLECTOMY APPENDECTOMY IR G TUBE PLACEMENT PERCUTANEOUS 03/28/2023 N/A IR G TUBE PLACEMENT PERCUTANEOUS 03/29/2023 N/A Family History Medical History Relation Name Comments Anesthesia problems Neg Hx Social History Tobacco Use Types Packs/Day Years Used Date Smoking Tobacco: Every Day Cigarettes 1.5 45.2 Started: 02/1979 Passive Smoke Exposure: Never Smokeless [...] on file Legal Sex Male 11:50 AM RAILROAD COOK Gender Identity Not on file Sexual Orientation Not on file Obstetrics History Last Filed Vital Signs Vital Sign Reading Time Taken Comments Blood Pressure 150/67 03/31/2023 8:16 AM RAILROAD COOK Pulse 73 03/31/2023 8:16 AM RAILROAD COOK Temperature 37 C (98.6 F) 03/31/2023 8:16 AM RAILROAD COOK Respiratory Rate 16 03/31/2023 8:16 AM RAILROAD COOK Oxygen Saturation 94% 03/31/2023 8:16 AM RAILROAD COOK Inhaled Oxygen Concentration - - Weight 51.2 kg (112 lb 14.4 oz) 03/30/2023 6:00 AM RAILROAD COOK Height 165.1 cm (5' 5 ) 03/23/2023 2:39 PM RAILROAD COOK Body Mass Index 18.79 03/23/2023 2:39 PM RAILROAD COOK Plan of Treatment Health Maintenance Due Date Last Done Comments Colon Cancer Screening-Colonoscopy 1959 Depression Screening 1959 Hepatitis C Screening 1959 Prostate Cancer Screening-PSA 1959 DTaP/Tdap/Td Vaccine (1 - Tdap) 1970 Hepatitis B Screening 1977 Pneumococcal vaccine 65+ (1 of 2 - PCV) 1978 Zoster Vaccine (1 of 2) 2009 Influenza Vaccine (#1) 2023 01/04/2023 Abdominal Aortic Aneurysm (AAA) Screen 2024 Well Visit 65+ 2024 Fall Risk Assessment 03/31/2024 03/31/2023 Medical Devices Implanted Type Area Car Wash Attendant Automatic Device Identifier Shelf Expiration Date Model / Serial / Lot Knee Right: Knee Insurance SHAHID NOBLE [id number] PLAN SHAHID NOBLE [id number] Advance Directives For more information, please contact: [phone] Documents on File Type Date Recorded Patient Schedule Clerk Expl anation ADVANCE DIRECTIVE 04/04/2023 9:17 PM POWER OF TILE INSTALLER-MEDICAL ADVANCE DIRECTIVE 03/29/2023 3:17 PM POWER OF TILE INSTALLER-MEDICAL * Full Code (Latest Code Status on File) Date Activated Date Inactivated Comments 03/23/2023 9:48 PM 03/31/2023 9:46 PM Care Teams Environmental Solutions Engineer Relationship Specialty Start Date End Date Jorge Espinosa PA [address] [place] [id number] PCP - General Internal Medicine 03/31/23 Edwin Lock MD [address] [place] [address] Radiation Oncologist Radiation Oncology 03/31/23
--- OUTSIDE RECORDS SUMMARY | 2024-04-17 07:26 | XMS_ITS ---
Author Organization [facility] Address [address] [place] [address] Care Team Providers Care Garnetter Name Role Phone Jorge Espinosa Primary Care Provider + Edwin Lock MD Unavailable Active Problems Problem Noted Date Diagnosed Date Primary squamous cell carcinoma of head and neck 03/30/2023 Cancer Staging:Clinical stage from 03/25/2023:Stage III(cT4, cN2, cM0, p16+) - Unsigned Cancer cachexia 03/30/2023 Moderate malnutrition 03/25/2023 Oral mass 03/23/2023 Current Treatment and Therapy Plans No current plan information found. Past Treatment and Therapy Plans No past plan information found. Lifetime Dose Tracking * Chemical Lifetime Dose Automatic Entry Manual Entr y Fluoro Time 16.1 minutes 16.1 minutes 0 minutes Air kerma at the reference point (Ka,r) 63.9 mGy 6 3.9 mGy 0 mGy DLP 1,724 mGycm 1,724 mGycm 0 mGycm
--- OUTSIDE RECORDS SUMMARY | 2024-04-17 07:27 | XMS_ITS | Encounter Summary ---
Author Organization [facility] Address [address] [place] [facility] [place] [address] Phone Care Team Providers Care Pharmacy Intake Technician Name Role Phone Jorge Espinosa Primary Care Provider [phone] Antwon Mirza MD Unavailable [phone] Roland Patel MD Unavailable [phone] Encounter Details Date Type Department Care Team (Late st Contact Info) Description 06/07/2023 Telephone [facility] Oncology Services [address] [place] [address] Sandee Lira, RASHEEDA [place] Social History Tobacco Use Types Packs/Day Years Used Date Smoking Tobacco: Every Day Cigarettes 0.5 51.1 Started: 1974 Smokeless Tobacco: Never Alcohol Use Standard Drinks/Week Comments Yes 0 (1 standard drink = 0.6 oz pure alcohol) Occasionally, never a regular drinker Sex and Gender Information Value Date Recorded Sex Assigned at Not on file 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
--- OUTSIDE RECORDS SUMMARY | 2024-04-17 07:27 | XMS_ITS ---
Author Organization [facility] Address [address] [place] [address] Phone Care Team Providers Care Cone Picker Name Role Phone Jorge Espinosa Primary Care Provider [phone] Antwon Mirza MD Unavailable [phone] Roland Patel MD Unavailable [phone] Active Problems Problem Noted Date Diagnosed Date [...] Reference Points Delivered HN_PRP 05/12/2023 - 08/12/2023 5,400 cGy Resolved Problems Problem Noted Date Diagnosed Date Resolved Date Cellulitis of abdominal wall 07/11/2023 09/05/2023 Metastasis to head and neck lymph node 05/06/2023 05/06/2023 Status post insertion of per cutaneous endoscopic gastrostomy (PEG) tube 04/11/20232023
--- OUTSIDE RECORDS SUMMARY | 2024-04-17 07:27 | XMS_ITS | Clinical Summary ---
Author Organization [facility] Address [address] [place] [address] Phone Care Team Providers Care Temple Marker Name Role Phone Jorge Espinosa Primary Care Provider [phone] Antwon Mirza MD Unavailable [phone] Roland Patel MD Unavailable [phone] Allergies Active Allergy Reactions Criticality Noted Date Comments Bee Venom Unknown 04/11/2023 Medications Ferrous Sulfate (IRON PO) 15 mL by Enteral route. 4 Active lidocaine (LIDODERM) 5 % Patch 1 Patch by Transdermal route every 12 hours. Active nortriptyline (PAMELOR) 10 MG Capsule take 30 mg per G Tube nightly. 10/mg/5 ml Take 15 ml 4 Active ondansetron (ZOFRAN-ODT) 4 MG TABLET DISPERSIBLE Take 4 mg by mouth every 8 hours as needed. 4 Active ondansetron (Zofran) 8 MG TabletIndicatio ns:Oropharyngea l cancer (HCC) Take 1 Tablet by mouth every 8 hours as needed for Nausea - 1st line. 20 Tablet 2 4 Active prochlorperazin e (COMPAZINE) 10 MG TabletIndicatio ns:Oropharyngea l cancer (HCC) Take 1 Tablet by mouth every 6 hours as needed for Nausea - 2nd line. 40 Tablet 2 4 Active nicotine (Nicotine Step 1) 21 MG/24HR PATCH 24 HRIndications:O ropharyngeal cancer (HCC) 1 Patch by Transdermal route every 24 hours. 30 Patch 4 Active oxyCODONE (ROXICODONE) 5 MG/5ML SolutionIndicat ions:Oropharyng eal cancer (HCC) Take 5 mL by mouth every 6 hours as needed for Severe pain. 450 mL 4 Active spironolactone (ALDACTONE) 50 MG TabletIndicatio ns:Oropharyngea l cancer (HCC) take 1 Tablet per G Tube 2 times daily. 60 Tablet 4 Active escitalopram (LEXAPRO) 5 MG/5ML Solution take 20 mg per G Tube daily. Active lisinopril (PRINIVIL, ZESTRIL) 10 MG Tablet 10 mg by Enteral route daily. 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 Gender Identity Not on file Sexual Orientation Not on file Last Filed Vital Signs Vital Sign Reading Time Taken Comments Blood Pressure 142/68 08/18/2023 4:37 PM CDT Pulse 65 08/16/2023 4:05 PM CDT Temperature 36.6 C (97.8 F) 08/18/2023 4:37 PM CDT Respiratory Rate 18 08/18/2023 4:37 PM CDT [...] 1959 SARS-COV-2 Immunization (#1) 1964 Pneumococcal Immunization (5 0+ years) (1 of 2 - PCV) 1978 Zoster Immunization (1 of 2) 1978 Colonoscopy 2004 Colorectal Cancer Screening 2004 Cologuard 2009 Immunochemical Fecal Occult Blood 2009 Lung Cancer Screening 2009 PSA Discussion 2014 Respiratory Syncytial Virus (RSV) Immunization (Adult) (1 - Risk 60-74 years 1-dose series) 2019 Influenza Immunization (#1) 2023 01/04/2023 AAA Screening Ultrasound 2024 Hepatitis B Immunization Aged Out No longer eligible based on patient's age to complete this topic Meningococcal Immunization (ACWY) Aged Out No longer eligible based on patient's age to complete this topic Rotavirus Immunization Aged Out No lo nger eligible based on patient's age to complete this topic Insurance [place] [id number] Advance Directives * Full Code (Latest Code Status on File) Date Activated Date Inactivated Comments 07/15/2023 9:50 AM Care Teams Temple Marker Relationship Specialty Start Date End Date Jorge Espinosa PA [address] [place] [address] PCP - General Physician Stitch Separator 04/11/23 Antwon Mirza MD [address] [place] [address] Consulting Physician Medical Oncology 05/04/23 Roland Patel MD [address] [place] [address] Consulting Physician Radiation Oncology 05/04/23
--- OUTSIDE RECORDS SUMMARY | 2024-04-17 07:27 | XMS_ITS | Referral Summary ---
Author Organization [facility] Address [address] [place] [address] Care Team Providers Care Candle Extrusion Machine Operator Name Role Phone Jorge Espinosa Primary Care Provider + Edwin Lock MD Unavailable [phone] Allergies No known active allergies Medications lidocaine [...] as needed (sleep) 473 mL 4 Active jpbwupzz-asw-fjgxd us gluconate (CENTRUM) 0.6 mg iron/mL liquid [...] on file Legal Sex Male 11:50 AM VIDEO GAME TESTER Gender Identity Not on file Sexual Orientation Not on file Last Filed Vital Signs Vital Sign Reading Time Taken Comments Blood Pressure 150/67 03/31/2023 8:16 AM VIDEO GAME TESTER Pulse 73 03/31/2023 8:16 AM VIDEO GAME TESTER Temperature 37 C (98.6 F) 03/31/2023 8:16 AM VIDEO GAME TESTER Respiratory Rate 16 03/31/2023 8:16 AM VIDEO GAME TESTER Oxygen Saturation 94% 03/31/2023 8:16 AM VIDEO GAME TESTER Inhaled Oxygen Concentration - - Weight 51.2 kg (112 lb 14.4 oz) 03/30/2023 6:00 AM VIDEO GAME TESTER Height 165.1 cm (5' 5 ) 03/23/2023 2:39 PM VIDEO GAME TESTER Body Mass Index 18.79 03/23/2023 2:39 PM VIDEO GAME TESTER Plan of Treatment Not on file Medical Devices Implanted Type Area Wind Tunnel Mechanic Device Identifier Shelf Expiration Date Model / Serial / Lot Knee Right: Knee Insurance Advance Directives For more information, please contact: [phone] Documents on File Type Date Recorded Patient Rotary Drill Rig Operator Expl anation ADVANCE DIRECTIVE 04/04/2023 9:17 PM POWER OF BACKEND PYTHON DEVELOPER-MEDICAL ADVANCE DIRECTIVE 03/29/2023 3:17 PM POWER OF BACKEND PYTHON DEVELOPER-MEDICAL * Full Code (Latest Code Status on File) Date Activated Date Inactivated Comments 03/23/2023 9:48 PM 03/31/2023 9:46 PM Care Teams Candle Extrusion Machine Operator Relationship Specialty Start Date End Date Jorge Espinosa PA [address] [place] [address] PCP - General Internal Medicine 03/31/23 Edwin Lock MD [address] [place] [id number] Radiation Oncologist Radiation Oncology 03/31/23
[2024-04-17 07:42] LABS: Alveolar/Arterial O2 Gradient 31.3 mmHg; Base Excess ABG 7.1 mEq/l (+/-2.0); Fractional Inspired Oxygen 21 %; Oxygen Saturation ABG 96.4 % (95.0-100.0); Oxyhemoglobin 95.2 % THb (90.0-100.0); PCO2 ABG 36.6 mmHg (35.0-45.0); PO2 ABG 74.6 mmHg (80.0-100.0); PO2 FiO2 Ratio Arterial Blood 3.55 %; Total Hemoglobin 13.4 g/dL (12.0-18.0)
[2024-04-17 07:46] LABS: Device ROOM AIR; Modified Allen's Test Pass; Site Drawn RIGHT RADIAL; pH ABG 7.532 (7.350-7.450)
[2024-04-17 07:50] VITALS: BP 156/61; PULSE 74; RESP 13; O2SAT 98
[2024-04-17 08:05] LABS: INR 0.9; Partial Thromboplastin Time 26.7 Seconds (22.3-36.8); Prothrombin Time 13.1 Seconds (11.1-14.7)
[2024-04-17] MEDS: SODIUM CHLORIDE 0.9% IV 2,000 ML 999 ML IV CONT (08:06)
[2024-04-17 08:09] LABS: Acetaminophen < 10 ug/mL (10-30); Ethanol < 10 mg/dL (<10); Salicylate < 1.0 mg/dL (2-20)
[2024-04-17 08:14] LABS: Creatine Kinase 1371 U/L (55-170); Lipase 175 U/L (23-300); Magnesium 1.9 mg/dL (1.6-2.3); Phosphorus 2.9 mg/dL (2.5-4.5)
[2024-04-17 08:34] LABS: NT Pro B Type Natriuretic Pept 2940 pg/mL (19.9-100); Troponin I 0.039 ng/mL (0.000-0.034)
[2024-04-17 08:40] LABS: Add Urine Microscopic? YES; Appearance Urine Clear (Clear); Bacteria Urine 4+ /hpf; Bilirubin Urine Negative (Negative); Blood Urine Negative (Negative); Color Urine Yellow (Yellow); Glucose Urine UA Negative (Negative); Ketones Urine Negative (Negative); Leukocyte Esterase Ur 2+ LEU/UL (Negative); Nitrate Urine Negative (Negative); Non Pathogenic Casts 0-2; Protein Urine Negative (Negative); RBC Urine 0-2 /hpf (0-2); Specific Grav Ur 1.008 (1.001-1.035); Squamous Epithelial Cell Urine None Seen /hpf (Few)
[2024-04-17 09:13] VITALS: BP 173/76; PULSE 81; RESP 16; O2SAT 100
--- NOTE | 2024-04-17 09:20 | ED_ITS ---
HPI - General Adult General Chief complaint: Fall Stated complaint: increase weakness, fall, hit head Time Seen by Provider: 04/17/24 06:58 History of Present Illness HPI narrative: This is a 64-year-old male with a history throat cancer presenting for weakness. Patient himself is confused and cannot provide any meaningful intermittent patient to guiding interview. The daughter [id number] arrives in over last 1-2 weeks he has become progressively more weak. He is no longer getting out bed. Today he was on the toilet and they were unable to get him up off toilet. Patient has a history of nonoperable throat cancer. He has a G-tube but has had decreased oral intake as he says that no food tastes good. Patient's daughter notes that his right eye has not been working for several weeks. Patient is DNR DNI comfort measures only. Related Data Allergies Allergy/AdvReac Type Severity Reaction Status Date / Time bee venom protein (honey Allergy Anaphylaxis Verified 04/17/24 06:26 bee) (bees) [facility] Past Medical History Medical History (Updated 04/17/24 @ 11:13 by Wilfrid Dougherty MD) Hypertension Surgical History Surgical History (Updated 03/21/23 @ 09:21 by Avery Quezada MD) H/O knee surgery History of appendectomy Social History Social History (Updated 03/21/23 @ 09:21 by Avery Quezada MD) Smoking status: Current every day smoker Exam 2 Narrative: APPEARANCE: Ill-appearing, malnourished Head: atraumatic. EYES: No extraocular eye movements of the right eye, extraocular eye movements to the left eye intact NOSE: Atraumatic NECK: Trachea midline RESPIRATORY: No increased rate of breathing CTA PE CARDIOVASCULAR: RRR, no peripheral edema ABDOMINAL: G-tube place MUSCULOSKELETAl: No obvious deformities NEURO: Alert. No movement of the right eye as documented above, rest the cranial nerves intact, right arm drift, left arm neurovascularly intact both legs no intact SKIN:: Erythema and induration over right forearm PSYCHIATRIC: Normal affect Course Vital Signs Vital signs: Vital Signs Temperature 98.3 F 04/17/24 06:17 Pulse Rate 90 04/17/24 06:17 Respiratory Rate 21 H 04/17/24 06:17 Blood Pressure 188/72 H 04/17/24 06:17 Pulse Oximetry 97 04/17/24 06:17 Oxygen Delivery Room Air 04/17/24 06:17 Temperature 98.3 F 04/17/24 06:17 Pulse Rate 75 04/17/24 10:52 Respiratory Rate 14 04/17/24 10:52 Blood Pressure 142/77 H 04/17/24 10:52 Pulse Oximetry 96 04/17/24 10:52 Oxygen Delivery Room Air 04/17/24 06:17 Medical Decision Making MDM Narrative Medical decision making narrative: -Course: 64-year-old male history throat cancer presenting for 2 weeks of decline. On arrival here the patient is altered and confused and can provide no information. 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 After that workup been ordered the family did arrive and provided additional information. The patient has inoperable throat cancer and has had palliative radiation/chemo. They met with hospice recently but have not enrolled him yet. I discussed goals of care with the daughter. She says the father's quality life is very poor. He is weak with poor memory. He says that food in no longer enjoyable. In life she recalls him as being very strong/independent and he would not want to have to be taken care of 30/08. Before his cognition declined she recalls his last which is within not want to pursue further medical care. He is DNR DNI comfort measures. Hospice has been consulted. Home hospice has arranged. Patient will be discharged. Vital Signs Vital Signs: Vital Signs Temperature 98.3 F 04/17/24 06:17 Pulse Rate 90 04/17/24 06:17 Respiratory Rate 21 H 04/17/24 06:17 Blood Pressure 188/72 H 04/17/24 06:17 Pulse Oximetry 97 04/17/24 06:17 Oxygen Delivery Room Air 04/17/24 06:17 Temperature 98.3 F 04/17/24 06:17 Pulse Rate 75 04/17/24 10:52 Respiratory Rate 14 04/17/24 10:52 Blood Pressure 142/77 H 04/17/24 10:52 Pulse Oximetry 96 04/17/24 10:52 Oxygen Delivery Room Air 04/17/24 06:17 Lab Data 04/17/24 06:28 04/17/24 06:28 Labs: Lab Results 04/17/24 04/17/24 04/17/24 Range/Units 06:28 06:30 07:44 WBC 9.6 (4.5-10.0) K/mm3 RBC 4.55 L (4.6-6.20) M/mm3 Hgb 13.2 L D (14.0-18.0) g/dL Hct 38.1 L (42.0-52.0) % MCV 83.7 (80-100) fl MCH 29.0 (26-34) pg MCHC 34.6 (32-36) g/dl RDW 15.5 H (11.5-14.5) % Plt Count 245 (150-375) k/mm3 MPV 8.9 (7.4-10.4) fl Immature Gran % (Auto) 0.6 H (0-0.5) % Neut % (Auto) 78.0 H (45.5-73.1) % Lymph % (Auto) 5.9 L (18.3-44.2) % [place] % (Auto) 15.1 H (2.6-8.5) % Eos % (Auto) 0.2 (0-4.4) % Baso % (Auto) 0.2 (0.2-1.2) % Lymph # (Auto) 0.57 L (0.9-3.2) K/mm3 [place] # (Auto) 1.5 H (0.1-0.6) K/mm3 Eos # (Auto) 0.0 (0-0.3) K/mm3 Baso # (Auto) 0.0 (0.0-0.1) K/mm3 Abs Immat Gran (auto) 0.06 H (0.00-0.031) K/mm3 Absolute Neuts (auto) 7.5 H (1.3-6.7) K/mm3 Absolute Nucleated RBC 0.000 (0.0-0.012) K/mm3 Nucleated RBC % 0.0 (0.0-0.2) % PT 13.1 (11.1-14.7) Seconds INR 0.9 APTT 26.7 (22.3-36.8) Seconds Sodium 115 L* (137-145) mmol/L Potassium 4.1 (3.4-5.0) mmol/L Chloride 77 L (98-107) mmol/L Carbon Dioxide 34 H (22-30) mmol/L Anion Gap 4 (4-12) mmol/L BUN 19 D (9-20) mg/dL Creatinine 0.41 L (0.7-1.3) mg/dL Estim Creat Clear Calc 120 ml/min Estimated GFR > 60 (59 - ) Glucose 101 (65-110) mg/dL Lactic Acid 1.0 (0.7-2.0) mmol/L Calcium 8.3 L (8.4-10.2) mg/dL Phosphorus 2.9 (2.5-4.5) mg/dL Magnesium 1.9 (1.6-2.3) mg/dL Total Bilirubin 0.9 (0.2-1.3) mg/dL AST 156 H (17-59) U/L ALT 65 H (6-50) U/L Alkaline Phosphatase 106 (38-126) U/L Total Creatine Kinase 1371 H (55-170) U/L Troponin I 0.039 H* (0.000-0.034) ng/mL NT-Pro-B Natriuret Pep Cancelled Total Protein 7.0 (6.3-8.2) g/dL Albumin 3.4 L (3.5-5.1) g/dL Lipase (23-300) U/L TSH (Reflex) (0.465-4.68) uIU/mL Urine Color (Yellow) Urine Appearance (Clear) Urine pH (5.0-9.0) Ur Specific Way[place] (1.001-1.035) Urine Protein (Negative) mg/dL Urine Glucose (UA) (Negative) mg/dL Urine Ketones (Negative) mg/dL Ur Blood (Man) (Negative) Urine Nitrate (Negative) Urine Bilirubin (Negative) Urine Urobilinogen (<2.0) mg/dL Leukocyte Esterase Rfl (Negative) JUAN/UL Urine RBC (0-2) /hpf Urine WBC (0-3) /hpf Ur Squamous Epith Cells (Few) /hpf Urine Bacteria /hpf Urine Casts Salicylates (2-20) mg/dL Urine Opiates Screen (Negative) Urine Methadone Screen (Negative) Acetaminophen Ur Barbiturates Screen (Negative) Ur Phencyclidine Scrn (Negative) Ur Amphetamine Screen (Negative) U Benzodiazepines Scrn (Negative) Urine Cocaine Screen (Negative) U Cannabinoids Screen (Negative) Ethyl Alcohol (<10) mg/dL Influenza A (RT-PCR) Negative (Negative) Influenza B (RT-PCR) Negative (Negative) RSV (RT-PCR) Negative (Negative) SARS-CoV-2 RNA (RT-PCR) Negative (Negative) 04/17/24 04/17/24 04/17/24 Range/Units 07:44 07:44 08:24 WBC (4.5-10.0) K/mm3 RBC (4.6-6.20) M/mm3 Hgb (14.0-18.0) g/dL Hct (42.0-52.0) % MCV (80-100) fl MCH (26-34) pg MCHC (32-36) g/dl RDW (11.5-14.5) % Plt Count (150-375) k/mm3 MPV (7.4-10.4) fl Immature Gran % (Auto) (0-0.5) % Neut % (Auto) (45.5-73.1) % Lymph % (Auto) (18.3-44.2) % [place] % (Auto) (2.6-8.5) % Eos % (Auto) (0-4.4) % Baso % (Auto) (0.2-1.2) % Lymph # (Auto) (0.9-3.2) K/mm3 [place] # (Auto) (0.1-0.6) K/mm3 Eos # (Auto) (0-0.3) K/mm3 Baso # (Auto) (0.0-0.1) K/mm3 Abs Immat Gran (auto) (0.00-0.031) K/mm3 Absolute Neuts (auto) (1.3-6.7) K/mm3 Absolute Nucleated RBC (0.0-0.012) K/mm3 Nucleated RBC % (0.0-0.2) % PT (11.1-14.7) Seconds INR APTT (22.3-36.8) Seconds Sodium (137-145) mmol/L Potassium (3.4-5.0) mmol/L Chloride (98-107) mmol/L Carbon Dioxide (22-30) mmol/L Anion Gap (4-12) mmol/L BUN (9-20) mg/dL Creatinine (0.7-1.3) mg/dL Estim Creat Clear Calc ml/min Estimated GFR (59 - ) Glucose (65-110) mg/dL Lactic Acid (0.7-2.0) mmol/L Calcium (8.4-10.2) mg/dL Phosphorus (2.5-4.5) mg/dL Magnesium (1.6-2.3) mg/dL Total Bilirubin (0.2-1.3) mg/dL AST (17-59) U/L ALT (6-50) U/L Alkaline Phosphatase (38-126) U/L Total Creatine Kinase (55-170) U/L Troponin I (0.000-0.034) ng/mL NT-Pro-B Natriuret Pep 2940 H Total Protein (6.3-8.2) g/dL Albumin (3.5-5.1) g/dL Lipase 175 (23-300) U/L TSH (Reflex) 1.710 (0.465-4.68) uIU/mL Urine Color Yellow (Yellow) Urine Appearance Clear (Clear) Urine pH 8.0 (5.0-9.0) Ur Specific [place] 1.008 (1.001-1.035) Urine Protein Negative (Negative) mg/dL Urine Glucose (UA) Negative (Negative) mg/dL Urine Ketones Negative (Negative) mg/dL Ur Blood (Man) Negative (Negative) Urine Nitrate Negative (Negative) Urine Bilirubin Negative (Negative) Urine Urobilinogen 1.0 (<2.0) mg/dL Leukocyte Esterase Rfl 2+ H (Negative) JUAN/UL Urine RBC 0-2 (0-2) /hpf Urine WBC 11-20 H (0-3) /hpf Ur Squamous Epith Cells None seen (Few) /hpf Urine Bacteria 4+ H /hpf Urine Casts 0-2 Salicylates < 1.0 L (2-20) mg/dL Urine Opiates Screen Negative (Negative) Urine Methadone Screen Negative (Negative) Acetaminophen Cancelled < 10 L Ur Barbiturates Screen Negative (Negative) Ur Phencyclidine Scrn Negative (Negative) Ur Amphetamine Screen Negative (Negative) U Benzodiazepines Scrn Negative (Negative) Urine Cocaine Screen Negative (Negative) U Cannabinoids Screen Negative (Negative) Ethyl Alcohol < 10 (<10) mg/dL Influenza A (RT-PCR) (Negative) Influenza B (RT-PCR) (Negative) RSV (RT-PCR) (Negative) SARS-CoV-2 RNA (RT-PCR) (Negative) 04/17/24 Range/Units 10:34 WBC (4.5-10.0) K/mm3 RBC (4.6-6.20) M/mm3 Hgb (14.0-18.0) g/dL Hct (42.0-52.0) % MCV (80-100) fl MCH (26-34) pg MCHC (32-36) g/dl RDW (11.5-14.5) % Plt Count (150-375) k/mm3 MPV (7.4-10.4) fl Immature Gran % (Auto) (0-0.5) % Neut % (Auto) (45.5-73.1) % Lymph % (Auto) (18.3-44.2) % [place] % (Auto) (2.6-8.5) % Eos % (Auto) (0-4.4) % Baso % (Auto) (0.2-1.2) % Lymph # (Auto) (0.9-3.2) K/mm3 [place] # (Auto) (0.1-0.6) K/mm3 Eos # (Auto) (0-0.3) K/mm3 Baso # (Auto) (0.0-0.1) K/mm3 Abs Immat Gran (auto) (0.00-0.031) K/mm3 Absolute Neuts (auto) (1.3-6.7) K/mm3 Absolute Nucleated RBC (0.0-0.012) K/mm3 Nucleated RBC % (0.0-0.2) % PT (11.1-14.7) Seconds INR APTT (22.3-36.8) Seconds Sodium (137-145) mmol/L Potassium (3.4-5.0) mmol/L Chloride (98-107) mmol/L Carbon Dioxide (22-30) mmol/L Anion Gap (4-12) mmol/L BUN (9-20) mg/dL Creatinine (0.7-1.3) mg/dL Estim Creat Clear Calc ml/min Estimated GFR (59 - ) Glucose (65-110) mg/dL Lactic Acid (0.7-2.0) mmol/L Calcium (8.4-10.2) mg/dL Phosphorus (2.5-4.5) mg/dL Magnesium (1.6-2.3) mg/dL Total Bilirubin (0.2-1.3) mg/dL AST (17-59) U/L ALT (6-50) U/L Alkaline Phosphatase (38-126) U/L Total Creatine Kinase (55-170) U/L Troponin I Pending (0.000-0.034) ng/mL NT-Pro-B Natriuret Pep Total Protein (6.3-8.2) g/dL Albumin (3.5-5.1) g/dL Lipase (23-300) U/L TSH (Reflex) (0.465-4.68) uIU/mL Urine Color (Yellow) Urine Appearance (Clear) Urine pH (5.0-9.0) Ur Specific [place] (1.001-1.035) Urine Protein (Negative) mg/dL Urine Glucose (UA) (Negative) mg/dL Urine Ketones (Negative) mg/dL Ur Blood (Man) (Negative) Urine Nitrate (Negative) Urine Bilirubin (Negative) Urine Urobilinogen (<2.0) mg/dL Leukocyte Esterase Rfl (Negative) JUAN/UL Urine RBC (0-2) /hpf Urine WBC (0-3) /hpf Ur Squamous Epith Cells (Few) /hpf Urine Bacteria /hpf Urine Casts Salicylates (2-20) mg/dL Urine Opiates Screen (Negative) Urine Methadone Screen (Negative) Acetaminophen Ur Barbiturates Screen (Negative) Ur Phencyclidine Scrn (Negative) Ur Amphetamine Screen (Negative) U Benzodiazepines Scrn (Negative) Urine Cocaine Screen (Negative) U Cannabinoids Screen (Negative) Ethyl Alcohol (<10) mg/dL Influenza A (RT-PCR) (Negative) Influenza B (RT-PCR) (Negative) RSV (RT-PCR) (Negative) SARS-CoV-2 RNA (RT-PCR) (Negative) ABG Data ABG results: 04/17/24 07:40 Puncture Site Right radial ABG pH 7.532 H* ABG pCO2 36.6 ABG pO2 74.6 L ABG PO2/FiO2 Ratio 3.55 ABG HCO3 30.0 H ABG O2 Saturation 96.4 ABG O2 Content 18.0 ABG Base Excess 7.1 A-a Gradient 31.3 Oxyhemoglobin 95.2 Total Hemoglobin 13.4 O2 Delivery Device Room air O2 Liters/Min Not Reportable FiO2 21 Critical Care Time Critical Care Time Critical Care Time: Yes Total Critical Care Time: 35 Discharge Plan Discharge Clinical Impression: Acute hyponatremia, Throat cancer Patient Disposition: Hospice - Home Condition: Terminal Additional Instructions: Aleksey was seen in the ED for confusion. We have decided to make him hospice. Please work with home hospice for further care. Patient Language: Upper Sorbian Prescriptions: No Action cephalexin 500 mg capsule 500 mg PO Q8H 7 Days Qty: 21 0RF ciprofloxacin HCl 250 mg tablet 250 mg PO Q12H 5 Days Qty: 10 0RF Follow-up/Referrals: UNKNOWN,DOCTOR [Primary Care Provider] -
[2024-04-17 09:33] LABS: Amphetamine Screen Urine Negative (Negative); Barbiturate Screen Urine Negative (Negative); Benzodiazepines Screen Urine Negative (Negative); Cannabinoid Screen Urine Negative (Negative); Cocaine Screen Urine Negative (Negative); Methadone Screen Urine Negative (Negative); Opiate Screen Urine Negative (Negative); Phencyclidine Screen Urine Negative (Negative)
--- NOTE | 2024-04-17 10:40 | ECG_ITS ---
Test Date: 2024-04-17 10:36:09 Measurements Intervals Wayne Rate: 73 P: 57 SC: 177 QRS: -46 QRSD: 124 T: -18 QT: 399 QTc: 441 Interpretive Statements SINUS RHYTHM LEFT ANTERIOR FASCICULAR BLOCK [QRS AXIS <= -45, QR IN I, RS IN II] INTRAVENTRICULAR CONDUCTION DELAY Compared to ECG 04/17/2024 06:24:42 NO SIGNIFICANT CHANGES Electronically Signed On 04-17-2024 15:01:47 CDT by Ld Bryant M.D.
--- NOTE | 2024-04-17 10:41 | PCCCNOTE ---
After speaking with daughter at bedside hospice referral [facility] to [facility] to make contact with daughter to arrange for pt needs and signing up to hospice.
[2024-04-17 10:52] VITALS: BP 142/77; PULSE 75; RESP 14; O2SAT 96
[2024-04-17 11:17] LABS: Troponin I 0.037 ng/mL (0.000-0.034)
[2024-04-17 11:32] VITALS: BP 153/70; PULSE 81; RESP 18; O2SAT 90
== END 2024-04-17 11:33 | disposition hospice, home (50) ==
PROVIDERS: Emergency Medicine; Emergency Provider Emergency Medicine
DX: C14.0 Malignant neoplasm of pharynx, unspecified (principal); E87.1 Hypo-osmolality and hyponatremia; I10 Essential (primary) hypertension; Z66 Do not resuscitate; Z93.1 Gastrostomy status; G93.9 Disorder of brain, unspecified; I65.21 Occlusion and stenosis of right carotid artery; I45.9 Conduction disorder, unspecified; I44.4 Left anterior fascicular block; R94.31 Abnormal electrocardiogram [ECG] [EKG]
CPT/HCPCS: 36415; 36600; 70496; 70498; 71045; 72125; 80053; 80143; 80179; 80307; 81001; 82077; 82550; 82805; 83605; 83690; 83735; 83880; 84100; 84443; 84484; 85018; 85025; 85610; 85730; 87040; 87086; 87637; 93005; 96360; 96361; 99284; J7030; Q9967